=== PATIENT | female | born 1945 | race Caucasian/White ===

== ENCOUNTER 2017-09-19 07:41 | Observation (INO) | payer BC, OTHER ==
[2017-09-19 08:23] LABS: Absolute Lymphocytes (CBC) 0.4 K/uL (0.7-4.9); Absolute Monocytes 0.2 K/uL (0.1-1.3); Absolute Neutrophil 8.9 K/uL (1.8-8.0); Basophils % 0.2 % (0-1.3); Eosinophils % 0.1 % (0-4.4); Hematocrit 42.1 % (36.0-45.0); Lymphocytes % 4.4 % (15.3-44.8); MCV 90.5 fL (80-100); MPV 7.8 fL (7.6-11.3); Monocytes % 2.3 % (3.3-12.3); RBC Red Blood Cell Count 4.65 M/uL (3.86-4.86)
[2017-09-19 08:27] LABS: Protime INR 0.97
[2017-09-19] MEDS ORDERED: METOPROLOL TAR 50 MG TAB ONE (08:34)
[2017-09-19] MEDS ORDERED: NA CHLORIDE 0.9% 1,000 ML ONE (08:34)
[2017-09-19] MEDS ORDERED: ASPIRIN 81 MG CHEWABLE TABLET ONE (08:34)
[2017-09-19 08:38] LABS: Bicarbonate 24 mEq/L (21-31); Glucose Level 153 mg/dL (65-120); Lipase 45 U/L (22-51); Potassium 3.9 mEq/L (3.6-5.0); Sodium Level 142 mEq/L (135-145)
[2017-09-19 08:44] LABS: ALT/SGPT 17 IU/L (10-60); AST/SGOT 29 IU/L (10-42); Albumin 4.9 g/dL (3.2-5.5); Alkaline Phosphatase 111 IU/L (42-121); BUN Blood Urea Nitrogen 19 mg/dL (6-20); Bilirubin Direct < 0.1 mg/dL (0-0.2); Bilirubin Total 0.6 mg/dL (0.3-1.2); Creatine Phosphokinase 231 IU/L (22-269); Glomerular Filtration Rate 61 mL/min (=/>90); Protein, Total 8.4 g/dL (6.0-8.3)
[2017-09-19 08:45] LABS: Urine Blood TRACE (NEG); Urine Glucose TRACE (NEG); Urine Protein 1+ (NEG); Urine Specific Gravity >1.030 (1.005-1.030)
[2017-09-19] MEDS ORDERED: METHYLPREDNISOLONE 125 MG INJ ONE (09:08)
[2017-09-19] MEDS ORDERED: ENOXAPARIN 60 MG/0.6 ML SQ ONE (09:09)
[2017-09-19] MEDS ORDERED: IPRATROPIUM BROM 0.5MG/2.5ML ONE (09:09)
[2017-09-19] MEDS ORDERED: FAMOTIDINE 20 MG/2 ML VIAL IV ONE (09:09)
[2017-09-19] MEDS ORDERED: NITROGLYCERIN 1 GM PKT TD ONE (09:09)
[2017-09-19] MEDS ORDERED: LEVALBUTEROL 1.25 MG/3 ML NEB ONE ×2 (09:16→09:51)
--- NOTE | 2017-09-19 09:30 | EDPHYS ---
Physician Documentation [facility] Name: Brianne Jennings Age: 71 yrs Sex: Female : 1945 Arrival Date: 09/19/2017 Time: 07:45 Bed 20 Private MD: Mark Altman ED Physician Koby Elmore HPI: 09/19 08:37 This 71 yrs old Female presents to ER via Ambulatory with complaints of Chest leah Pain. 08:37 The patient or guardian reports chest pain that is located primarily in the substernal leah area. Onset: 2 day(s) ago. The pain radiates to Associated signs and symptoms: Pertinent positives: lightheadedness, shortness of breath. The chest pain is described as a heaviness, causing indigestion, a pressure. Duration: The patient or guardian reports multiple episodes, with no pattern. Severity of pain: At its worst the pain was moderate in the emergency department the pain is unchanged. Historical: - Allergies: 07:56 Clindamycin; iw - Home Meds: 08:10 Metoprolol Tartrate Oral 1 tab 2 times per day [Active]; omeprazole 20 mg Oral cpDR 1 ae1 cap once daily [Active]; Symbicort inhalation inhalation [Active]; aspirin 81 mg Oral chew 1 tab once daily [Active]; ProAir HFA 90 mcg/actuation inhalation HFAA every 4-6 hours [Active]; - PMHx: 08:10 COPD; Hypertension; acid reflux; Arthritis; ae1 - PSHx: 08:10 heart caths; colon polyps; benign tumor remval near clavicle; D \T\ C; ae1 - Immunization history:: Pneumococcal vaccine is not up to date, Flu vaccine is not up to date. - Social history:: Smoking status: Patient uses tobacco products, smokes one-half pack cigarettes per day. - Family history:: not pertinent. ROS: 08:37 Constitutional: Negative for fever, chills, and weight loss, Eyes: Negative for injury, leah pain, redness, and discharge, ENT: Negative for injury, pain, and discharge, Neck: Negative for injury, pain, and swelling, Cardiovascular: Negative for chest pain, palpitations, and edema, Abdomen/GI: Negative for abdominal pain, nausea, vomiting, diarrhea, and constipation, Back: Negative for injury and pain, : Negative for injury, bleeding, discharge, and swelling, MS/Extremity: Negative for injury and deformity, Skin: Negative for injury, rash, and discoloration, Neuro: Negative for headache, weakness, numbness, tingling, and seizure, Psych: Negative for depression, anxiety, suicide ideation, homicidal ideation, and hallucinations, Allergy/Immunology: Negative for hives, rash, and allergies, Endocrine: Negative for neck swelling, polydipsia, polyuria, polyphagia, and marked weight changes, Hematologic/Lymphatic: Negative for swollen nodes, abnormal bleeding, and unusual bruising. 08:37 Cardiovascular: Positive for chest pain, of the chest. 08:37 Respiratory: Positive for cough, shortness of breath. Exam: 08:37 Constitutional: This is a well developed, well nourished patient who is awake, alert, leah and in no acute distress. Head/Face: Normocephalic, atraumatic. Eyes: Pupils equal round and reactive to light, extra-ocular motions intact. Lids and lashes normal. Conjunctiva and sclera are non-icteric and not injected. Cornea within normal limits. Periorbital areas with no swelling, redness, or edema. ENT: Nares patent. No nasal discharge, no septal abnormalities noted. Tympanic membranes are normal and external auditory canals are clear. Oropharynx with no redness, swelling, or masses, exudates, or evidence of obstruction, uvula midline. Mucous membranes moist. Neck: Trachea midline, no thyromegaly or masses palpated, and no cervical lymphadenopathy. Supple, full range of motion without nuchal rigidity, or vertebral point tenderness. No Meningismus. Chest/axilla: Normal chest wall appearance and motion. Nontender with no deformity. No lesions are appreciated. Abdomen/GI: Soft, non-tender, with normal bowel sounds. No distension or tympany. No guarding or rebound. No evidence of tenderness throughout. Back: No spinal tenderness. No costovertebral tenderness. Full range of motion. Female : Normal external genitalia. Skin: Warm, dry with normal turgor. Normal color with no rashes, no lesions, and no evidence of cellulitis. MS/ Extremity: Pulses equal, no cyanosis. Neurovascular intact. Full, normal range of motion. Neuro: Awake and alert, GCS 15, oriented to person, place, time, and situation. Cranial nerves II-XII grossly intact. Motor strength 5/5 in all extremities. Sensory grossly intact. Cerebellar exam normal. Normal gait. Psych: Awake, alert, with orientation to person, place and time. Behavior, mood, and affect are within normal limits. 08:37 Cardiovascular: Rate: tachycardic, Rhythm: regular, Pulses: Pulses are 4+ in bilateral radial, brachial, femoral, popliteal, posterior tibial and and dorsalis pedis arteries.. Heart sounds: normal, Edema: is not appreciated, JVD: is not appreciated. Vital Signs: 07:59 BP 161 / 90; Pulse 109; Resp 22 S; Temp 98.4; Pulse Ox 97% on R/A; Weight 53.98 kg (R); ae1 08:50 BP 152 / 76; Pulse 93 RA; ap3 08:50 BP 157 / 77; Pulse 89 LA; ap3 09:55 BP 175 / 86; Pulse 77; Resp 23; Pulse Ox 99% on R/A; ae1 10:21 BP 127 / 96; Pulse 75; Resp 16; Pulse Ox 96% on R/A; ap3 MDM: 08:18 Patient medically screened. leah 08:40 Data reviewed: vital signs, nurses notes, lab test result(s), EKG, radiologic studies, [facility] CT scan, plain films. 09/19 08:06 Order name: Basic Metabolic Panel; Complete Time: 08:53 [facility] 09/19 08:06 Order name: BNP; Complete Time: 08:53 [facility] 09/19 08:06 Order name: CBC with Diff; Complete Time: 11:21 [facility] 09/19 08:06 Order name: Ckmb; Complete Time: 08:53 [facility] 09/19 08:06 Order name: CPK; Complete Time: 08:53 [facility] 09/19 08:06 Order name: LFT's; Complete Time: 08:53 [facility] 09/19 08:06 Order name: Magnesium; Complete Time: 08:53 [facility] 09/19 08:06 Order name: PT-INR; Complete Time: 08:53 [facility] 09/19 08:06 Order name: Ptt, Activated; Complete Time: 08:53 [facility] 09/19 08:06 Order name: Troponin (emerg Dept Use Only); Complete Time: 08:53 [facility] 09/19 08:06 Order name: Lipase; Complete Time: 08:53 [facility] 09/19 08:31 Order name: Urine Dipstick--Ancillary (enter results); Complete Time: 08:53 09/19 08:06 Order name: XRAY Chest (1 view); Complete Time: 11:21 [facility] 09/19 08:37 Order name: CT Aorta for Dissection; Complete Time: 11:21 [facility] 09/19 09:29 Order name: Blood Culture [facility] 09/19 10:17 Order name: Group A Streptococcus Rapid Sc [facility] 09/19 10:18 Order name: Influenza Screen (A [facility] 09/19 10:18 Order name: Echo with Doppler [facility] 09/19 10:18 Order name: CKMB Creatine Kinase MB [facility] 09/19 10:18 Order name: CKMB Creatine Kinase MB [facility] 09/19 10:18 Order name: Creatine Phosphokinase [facility] 09/19 10:18 Order name: Creatine Phosphokinase [facility] 09/19 10:18 Order name: Troponin I [facility] 09/19 10:18 Order name: Troponin I [facility] 09/19 10:18 Order name: Hepatitis Panel,Acute [facility] 09/19 11:06 Order name: CBC Smear Scan; Complete Time: 11:21 [facility] 09/19 08:06 Order name: EKG; Complete Time: 08:07 [facility] 09/19 08:06 Order name: Cardiac monitoring; Complete Time: 08:11 [facility] 09/19 08:06 Order name: EKG - Nurse/Tech; Complete Time: 08:11 [facility] 09/19 08:06 Order name: IV Saline Lock; Complete Time: 08:11 [facility] 09/19 08:06 Order name: Labs collected and sent; Complete Time: 08:12 [facility] 09/19 08:06 Order name: O2 Per Protocol; Complete Time: 08:11 [facility] 09/19 08:06 Order name: O2 Sat Monitoring; Complete Time: 08:11 [facility] 09/19 08:06 Order name: Urine Dipstick-Ancillary (obtain specimen); Complete Time: 08:28 [facility] 09/19 08:40 Order name: Bilateral blood pressure; Complete Time: 08:50 [facility] 09/19 10:18 Order name: CONS Physician Consult [facility] 09/19 10:18 Order name: Heart Healthy [facility] 09/19 10:18 Order name: Respiratory Therapy Consult [facility] Administered Medications: 08:19 Drug: Aspirin 162 mg Route: PO; ae1 08:19 Drug: Lopressor (metoprolol TARTRATE) 50 mg Route: PO; ae1 08:23 Drug: NS 0.9% 1000 ml Route: IV; Rate: 125 ml/hr; Site: left antecubital; ae1 08:45 Drug: Rocephin - (cefTRIAXone) 1 grams Route: IVPB; Infused Over: 30 mins; Site: left ae1 antecubital; 09:54 Follow up: IV Status: Completed infusion ae1 08:55 Drug: Nitro-Bid Ointment 2 % 1 inches Route: Transdermal; Site: anterior chest wall; ae1 08:56 Drug: Pepcid 20 mg Route: IVP; Site: left antecubital; ae1 09:23 Follow up: Response: No adverse reaction ae1 08:58 Drug: SOLU-Medrol 2 mg/kg Route: IVP; Site: left antecubital; ae1 09:01 Drug: Xopenex 1.25 mg Route: Inhalation; ae1 09:01 Drug: AtroVENT Aerosol 0.5 mg Route: Inhalation; ae1 09:02 Drug: Lovenox 1 mg/kg Route: Sub-Q; Site: abdomen; ae1 09:38 Drug: Tylenol 650 mg Route: PO; ae1 11:22 Follow up: Response: Pain is decreased ae1 09:40 Drug: Xopenex 1.25 mg Route: Inhalation; ae1 09:54 Drug: Zithromax 500 mg Route: IVPB; Infused Over: 1 hrs; Site: left antecubital; ae1 11:22 Follow up: IV Status: Completed infusion ae1 Disposition: 09/19/17 09:29 Hospitalization ordered by Jaison Guaman for Inpatient Admission. Preliminary diagnosis are Chest pain, unspecified, Chronic obstructive pulmonary disease with (acute) exacerbation, Essential (primary) hypertension. - Bed requested for Telemetry/MedSurg (Inpatient). - Status is Inpatient Admission. ae1 - Condition is Stable. - Problem is new. - Symptoms have improved. UTI on Admission? No Signatures: Dispatcher [employer] EDMS Kezia Meeks Corey, MD MD cha Williams, Irene, RN RN iw Ruiz Pérez RN RN ae1
--- NOTE | 2017-09-19 09:30 | ER ---
Nurse's Notes [facility] Name: Brianne Jennings Age: 71 yrs Sex: Female : 1945 Arrival Date: 09/19/2017 Time: 07:45 Bed 20 Private MD: Mark Altman Diagnosis: Chest pain, unspecified;Chronic obstructive pulmonary disease with (acute) exacerbation;Essential (primary) hypertension Presentation: 09/19 07:53 Presenting complaint: Patient states: has had SOB, productive cough, left sided chest iw pain X 2 days, was seen at urgent care last night and diagnosed with bronchitis, was given breathing tx and steroid, had worse chest pain this morning so decided to come in to ER. Transition of care: patient was not received from another setting of care. Onset of symptoms was September 17, 2017. Care prior to arrival: None. 07:53 Method Of Arrival: Ambulatory iw 07:53 Acuity: LYNNE 3 iw Triage Assessment: 08:10 General: Appears comfortable, slender, Behavior is cooperative, anxious. Pain: ae1 Complains of pain in chest. Cardiovascular: Patient's skin is warm and dry. Historical: - Allergies: 07:56 Clindamycin; iw - Home Meds: 08:10 Metoprolol Tartrate Oral 1 tab 2 times per day [Active]; omeprazole 20 mg Oral cpDR 1 ae1 cap once daily [Active]; Symbicort inhalation inhalation [Active]; aspirin 81 mg Oral chew 1 tab once daily [Active]; ProAir HFA 90 mcg/actuation inhalation HFAA every 4-6 hours [Active]; - PMHx: 08:10 COPD; Hypertension; acid reflux; Arthritis; ae1 - PSHx: 08:10 heart caths; colon polyps; benign tumor remval near clavicle; D \T\ C; ae1 - Immunization history:: Pneumococcal vaccine is not up to date, Flu vaccine is not up to date. - Social history:: Smoking status: Patient uses tobacco products, smokes one-half pack cigarettes per day. - Family history:: not pertinent. Screenin:29 Abuse screen: Denies threats or abuse. Nutritional screening: No deficits noted. ap3 Tuberculosis screening: No symptoms or risk factors identified. Fall Risk None identified. Assessment: 08:10 Pain: Pain began gradually. ae1 08:20 Reassessment: Patient up to restroom, urine cup and clean catch wipes provided. Urine ae1 sample obtained at this time. 08:24 General: Appears in no apparent distress. well groomed, Behavior is calm, cooperative. ap3 Pain: Complains of pain in anterior aspect of left upper chest Pain radiates to left scapular area Pain currently is 5 out of 10 on a pain scale. at worst was 7 out of 10 on a pain scale. Aggravated by laying down flat. Neuro: Level of Consciousness is awake, alert, obeys commands, Oriented to person, place, time, situation. Cardiovascular: Heart tones S1 S2 present Capillary refill < 3 seconds in bilateral fingers. Respiratory: Airway is patent Breath sounds are diminished bilaterally. Breath sounds with wheezes in left posterior upper lobe. GI: Bowel sounds present X 4 quads. : No signs and/or symptoms were reported regarding the genitourinary system. EENT: wears glasses. Derm: Skin is pink, warm \T\ dry. Bruising that is dark purple, on dorsal aspect of right forearm. Musculoskeletal: Reports pain in anterior aspect of left upper chest. 09:11 Reassessment: Patient appears in no apparent distress at this time. Patient and/or ae1 family updated on plan of care and expected duration. Pain level reassessed. 09:52 Reassessment: Patient returned from CT, c/o headache, provider notified, new orders ae1 received. Reassessment: DR. Guaman at bedside discussing plan of care. 10:23 Reassessment: awaiting admission orders, no [employer] Communication[employer] orders at this time. . ap3 Vital Signs: 07:59 BP 161 / 90; Pulse 109; Resp 22 S; Temp 98.4; Pulse Ox 97% on R/A; Weight 53.98 kg (R); ae1 08:50 BP 152 / 76; Pulse 93 RA; ap3 08:50 BP 157 / 77; Pulse 89 LA; ap3 09:55 BP 175 / 86; Pulse 77; Resp 23; Pulse Ox 99% on R/A; ae1 10:21 BP 127 / 96; Pulse 75; Resp 16; Pulse Ox 96% on R/A; ap3 ED Course: 07:45 Patient arrived in ED. mr 07:46 Mark Altman MD is Private Physician. mr 07:55 Triage completed. iw 07:58 Ruiz Pérez, VALE is Primary Nurse. ae1 08:00 Arm band placed on right wrist. ae1 08:00 Placed in gown. Bed in low position. Call light in reach. Side rails up X2. Cardiac ae1 monitor on. Pulse ox on. NIBP on. Warm blanket given. 08:00 Patient maintains SpO2 saturation greater than 95% on room air. ae1 08:03 Koby Elmore MD is Attending Physician. leah 08:11 EKG done, by orthodontic technician assistant. reviewed by Koby lEmore MD. vh 08:15 X-ray completed. Portable x-ray completed in exam room. Patient tolerated procedure ag1 well. 08:16 XRAY Chest (1 view) In Process Unspecified. EDMS 08:28 Inserted saline lock: 20 gauge in left antecubital area, using aseptic technique. Blood ap3 collected. 09:21 CT completed. Patient tolerated procedure well. Patient moved to CT via wheelchair. sj Patient moved back from CT. 09:28 CT Aorta for Dissection In Process Unspecified. EDMS 09:28 Jaison Guaman DO is Hospitalizing Provider. [facility] 11:13 No provider procedures requiring assistance completed. Patient admitted, IV remains in ae1 place. Administered Medications: 08:19 Drug: Aspirin 162 mg Route: PO; ae1 08:19 Drug: Lopressor (metoprolol TARTRATE) 50 mg Route: PO; ae1 08:23 Drug: NS 0.9% 1000 ml Route: IV; Rate: 125 ml/hr; Site: left antecubital; ae1 08:45 Drug: Rocephin - (cefTRIAXone) 1 grams Route: IVPB; Infused Over: 30 mins; Site: left ae1 antecubital; 09:54 Follow up: IV Status: Completed infusion ae1 08:55 Drug: Nitro-Bid Ointment 2 % 1 inches Route: Transdermal; Site: anterior chest wall; ae1 08:56 Drug: Pepcid 20 mg Route: IVP; Site: left antecubital; ae1 09:23 Follow up: Response: No adverse reaction ae1 08:58 Drug: SOLU-Medrol 2 mg/kg Route: IVP; Site: left antecubital; ae1 09:01 Drug: Xopenex 1.25 mg Route: Inhalation; ae1 09:01 Drug: AtroVENT Aerosol 0.5 mg Route: Inhalation; ae1 09:02 Drug: Lovenox 1 mg/kg Route: Sub-Q; Site: abdomen; ae1 09:38 Drug: Tylenol 650 mg Route: PO; ae1 11:22 Follow up: Response: Pain is decreased ae1 09:40 Drug: Xopenex 1.25 mg Route: Inhalation; ae1 09:54 Drug: Zithromax 500 mg Route: IVPB; Infused Over: 1 hrs; Site: left antecubital; ae1 11:22 Follow up: IV Status: Completed infusion ae1 Outcome: :29 Decision to Hospitalize by Provider. [facility] 11:19 Admitted to Tele accompanied by tech, via stretcher, with chart, Report called to ap3 Eileen, Darryl nurse 11:19 Condition: stable 11:19 Instructed on the need for admit. 11:23 Attestation : I agree with the charting done by Angeli Mahoney, certified nursing attendant. . ae1 11:24 Patient left the ED. ae1 Signatures: Dispatcher [employer] EDMS Koby Elmore MD MD cha Rivera, Maria mr Jones, Eleanor Monson, Margie Castillo RN, Ashley [facility] Ruiz Pérez RN RN ae1 Angeli Mahoney ap3 Corrections: (The following items were deleted from the chart) 09: 08:20 Reassessment: Patient up to restroom, urine cup and clean catch wipes provided. ae1 ae1 11:14 08:28 Inserted saline lock: 20 gauge in right antecubital area, using aseptic ae1 technique. Blood collected. ap3 11:19 08:28 Inserted saline lock: 20 gauge in left antecubital area, using aseptic technique. ap3 Blood collected. ae1 11:20 11:14 Condition: stable ae1 ap3 11: 11:14 Admitted to Tele accompanied by tech, via stretcher, room 423, with chart, Report ap3 called to Eileen, receiving nurse ae1 11:14 Instructed on the need for admit, ae1 ap3 11:24 11:04 Reassessment: ae1 ae1
[2017-09-19] MEDS ORDERED: CEFTRIAXONE/SWI 1gm 1 GM/10 ML SYR ONE (09:37)
--- NOTE | 2017-09-19 09:48 | RAD REPORT ---
EXAM DESCRIPTION: CT - Angio Aorta For Dissection - 09/19/2017 9:28 am CLINICAL HISTORY: Chest pain radiating to the back. COMPARISON: None. TECHNIQUE: CT angiography of the aorta was performed with volume rendering. All CT scans are performed using dose optimization technique as appropriate and may include automated exposure control or mA/KV adjustment according to patient size. FINDINGS: A left aortic arch is present with normal branching pattern of the great vessels.No acute aortic finding is seen such as aneurysm, penetrating ulcer or dissection. The celiac axis, SMA, MARLON and renal arteries are widely patent. Mild atherosclerosis of the inferior abdominal aorta. No evidence of pulmonary embolism. Linear atelectasis is present in the right middle lobe. No focal infiltrate is seen. Multiple low-density hepatic lesions are present of varying sizes. A 2 cm lesion is seen in the right lobe laterally with evidence of arterial phase enhancement laterally. Full assessment is limited on this study, however a benign etiology is favored.The spleen, pancreas, adrenal glands and kidneys are within normal limits for arterial phase imaging. No bowel obstruction, free fluid or abscess.Small fat containing right inguinal hernia.No pathologic enlarged lymphadenopathy identified. Prominent lumbosacral degenerative changes. IMPRESSION: No acute aortic finding is demonstrated. No acute lung finding seen. Multiple hepatic lesions are present including a lesion in the right lobe of the liver inferolaterall y with adjacent arterial enhancement. Benign etiology is favored, however non-emergent MR imaging of the liver would be recommended for followup assessment.
--- NOTE | 2017-09-19 09:52 | EKG ---
Test Date: 2017-09-19 Test Time: 08:05:00 Supervisor Assembly Department: [facility] MEASUREMENT RESULTS: Intervals: Rate: 87 WV: 156 QRSD: 92 QT: 368 QTc: 442 [place]: P: 51 WV: 156 QRS: 58 T: 46 INTERPRETIVE STATEMENTS: Sinus rhythm with sinus arrhythmia with frequent premature ventricular complexes Incomplete right bundle branch block Nonspecific ST abnormality Abnormal ECG Compared to ECG 06/15/2014 15:55:09 Ventricular premature complex(es) now present ST (T wave) deviation now present Electronically Signed On 09-19-17 09:51:38 CDT by Raghavendra Martinez
--- NOTE | 2017-09-19 09:53 | RAD REPORT ---
EXAM DESCRIPTION: RAD - Chest Single View - 09/19/2017 8:18 am CLINICAL HISTORY: Productive cough, chest pain COMPARISON: 02/15/2010 FINDINGS: Portable technique limits examination quality. The lungs are grossly clear. The heart is normal in size. No displaced fractures. IMPRESSION: No acute intrathoracic process suspected.
[2017-09-19] MEDS ORDERED: ACETAMINOPHEN 325 MG TABLET ONE (09:54)
[2017-09-19] MEDS ORDERED: AZITHROMYCIN 500 MG/250 ML BAG ONE (10:07)
[2017-09-19] MEDS ORDERED: BENZONATATE 100 MG CAP PO PRN (10:08)
[2017-09-19] MEDS ORDERED: ALBUTEROL 2.5 MG/3 ML NEB SOL NEB PRN (10:08)
[2017-09-19] MEDS ORDERED: IPRATROPIUM BROM 0.5MG/2.5ML NEB PRN (10:08)
[2017-09-19] MEDS ORDERED: ONDANSETRON 4 MG/2 ML VIAL IV PRN (10:08)
[2017-09-19] MEDS ORDERED: NITROGLYCERIN 0.4 MG/TAB SL PRN (10:08)
--- NOTE | 2017-09-19 10:23 | P.HP ---
Certification for Inpatient Patient admitted to: Observation With expected LOS: <2 Midnights Patient will require the following post-hospital care: None Practitioner: I am a practitioner with admitting privileges, knowledge of patient current condition, hospital course, and medical plan of care. Services: Services provided to patient in accordance with Admission requirements found in Title 42 Section 412.3 of the Code of Federal Regulations Patient History Date of Service: 09/19/17 Primary Care Provider: Dr. Avery; Cardiology-Dr. Martinez Reason for admission: Shortness of breath, chest pain History of Present Illness: 71-year-old female presented emergency room with increasing shortness of breath and chest pain. The patient reports that she was seen in urgent care yesterday for increasing shortness of breath and chest pain. The patient was evaluated and diagnosed with bronchitis. She was given a breathing treatment and steroid. Overnight or shortness of breath did not improve. The patient also reported some left- sided chest pain. Pain radiated to the back. It was associated with some nausea. Shortness of breath worsened. Patient with underlying history of hypertension, COPD, GERD, CAD with previous heart catheterization. She was last seen by Cardiology over a year ago. She reports 40% blockage to 1 of her arteries. The patient was seen and evaluated in the emergency room. Blood pressure slightly elevated at 160/90. Heart rate 109, respiratory of 22. She was satting 97% on room air. In the ER, white count 9.6, hemoglobin 14. Sodium 142 , potassium 3.9, magnesium level unremarkable. Renal function unremarkable. Initial troponin unremarkable. EKG showed some PVCs. CT of the chest showed no lung abnormality. Multiple lesions to the kidneys were noted. 1 in the right lobe of the liver was noted. Due to the nature the findings the patient was admitted for treatment and felt outpatient treatment for COPD exacerbation. When I saw the patient in the ER, she appeared stable. She did not appear in any respiratory distress. Patient had mild chest pain. The patient reports that she still smokes about a half a pack per day. She is trying to quit. Allergies No Known Allergies Allergy (Unverified 06/15/14 15:37) Home medications list reviewed: Yes Home Medications: Albuterol Sulfate [Proair Hfa] 8.5 gm IH BID 06/15/14 Budesonide/Formoterol Fumarate [Symbicort 80-4.5 Mcg Inhaler] 2 puff IH BID Esomeprazole Mag Trihydrate [Nexium] 40 mg PO DAILY 06/15/14 Metoprolol Succinate [Toprol Xl] 25 mg PO DAILY 06/15/14 - Past Medical/Surgical History Diabetic: No -: Hypertension -: CAD -: GERD -: COPD -: Tobacco abuse -: Heart catheterization -: Removal of colon polyps -: D/C Psychosocial/ Personal History: The patient is a . 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 She has 3 children. - Family History Mother -: Other (see notes) (Brain 10) - Social History Smoking Status: Light Tobacco smoker (1-9 cigarettes/day) Counseled patient to stop smoking for: less than 10 minutes Smoking therapy provided: Yes Patient receptive to therapy: Yes Alcohol use: No CD- Drugs: No Caffeine use: Yes Place of Residence: Home Review of Systems General: As per HPI Eyes: Unremarkable ENT: Unremarkable Respiratory: Shortness of Breath, SOB with Excertion, Wheezing, As per HPI Cardiovascular: Chest Pain, As per HPI Gastrointestinal: Nausea, As per HPI Genitourinary: Unremarkable Musculoskeletal: Unremarkable Integumentary: Unremarkable Neurological: Unremarkable Lymphatics: Unremarkable Physical Examination - Physical Exam General: Alert, In no apparent distress, Oriented x3, Cooperative HEENT: Atraumatic, Normocephalic, PERRLA, Mucous membr. moist/pink Neck: Supple, No Thyromegaly Respiratory: Diminished (To the left base), Expiratory wheezes (Mild bilateral) Cardiovascular: Normal pulses, Regular rate/rhythm Gastrointestinal: Normal bowel sounds, Soft and benign, Non-distended, No tenderness, No masses, No rebound, No guarding Musculoskeletal: No erythema, No tenderness, No warmth Integumentary: No tenderness/swelling, No erythema, No warmth, No cyanosis Neurological: Normal speech, Normal strength at 5/5 x4 extr, Normal tone, Normal affect Lymphatics: No axilla or inguinal lymphadenopathy - Studies Laboratory Data (last 24 hrs) 09/19/17 08:05: PT 11.4, INR 0.97, APTT 28.0 09/19/17 08:05: WBC 9.6, Hgb 14.0, Hct 42.1, Plt Count 288 09/19/17 08:05: B-Natriuretic Peptide 84 09/19/17 08:05: Sodium 142, Potassium 3.9, BUN 19, Creatinine 0.91, Glucose 153 H, Magnesium 2.0, Total Bilirubin 0.6, AST 29, ALT 17, Alkaline Phosphatase 111 , Lipase 45 Assessment and Plan - Problems (Diagnosis) (1) Shortness of breath Current Visit: Yes Status: Acute Plan: Shortness of breath likely related to COPD exacerbation. Failed outpatient therapy. Will start IV Solu-Medrol. Will continue with COPD treatment. Patient also with chest pain. Will monitor cardiac enzymes. Will check echocardiogram. Due to her history of CAD will consult cardiology further evaluate. Will monitor closely. Recheck chest x-ray in the morning. Will consider starting antibiotic therapy. Will check for influenza and strep. Will teach on tobacco cessation. Will check fasting lipid panel. Will continue with her blood pressure medication. Will provide medication for GERD. (2) COPD (chronic obstructive pulmonary disease) Current Visit: Yes Status: Acute Plan: Will continue with COPD treatment. Qualifiers: COPD type: COPD with acute exacerbation Qualified Code(s): J44.1 - Chronic obstructive pulmonary disease with (acute) exacerbation (3) Chest pain Current Visit: Yes Status: Acute Plan: Continue as above. Will monitor cardiac enzymes. Will check echocardiogram. Await recommendation from cardiology. Qualifiers: Chest pain type: unspecified Qualified Code(s): R07.9 - Chest pain, unspecified (4) CAD (coronary artery disease) Current Visit: Yes Status: Chronic Plan: Patient with history of 40% blockage in 1 of her arteries. Will monitor cardiac enzymes. Await cardiology evaluation and recommendation. Qualifiers: Coronary Disease-Associated Artery/Lesion type: unspecified vessel or lesion type [place] vs. transplanted heart: unspecified whether [place] or transplanted heart Associated angina: angina presence unspecified Qualified Code(s): I25.10 - Atherosclerotic heart disease of [place] coronary artery without angina pectoris (5) Hypertension Current Visit: Yes Status: Chronic Plan: Continue with her medication. Will need to verify home meds Qualifiers: Hypertension type: essential hypertension Qualified Code(s): I10 - Essential (primary) hypertension (6) GERD (gastroesophageal reflux disease) Current Visit: Yes Status: Chronic Plan: Will continue with her PPI. Qualifiers: Esophagitis presence: esophagitis presence not specified Qualified Code(s) : K21.9 - Gastro-esophageal reflux disease without esophagitis (7) Tobacco abuse Current Visit: Yes Status: Chronic Plan: Tobacco education was provided. Patient plans to quit. (8) Abnormal CT scan Current Visit: Yes Status: Acute Plan: Multiple lesions noted to the liver. Will check MRI to further assess. Will check hepatitis panel. Discharge Plan: Home Plan to discharge in: 24 Hours - Advance Directives Does patient have a Living Will: No Does patient have a Durable POA for Healthcare: No - Code Status/Comfort Care Code Status Assessed: Yes Time Spent Managing Pts Care (In Minutes): 55
[2017-09-19] MEDS ORDERED: NA CHLORIDE 0.9% 1,000 ML IV SCH (11:00)
[2017-09-19 11:06] LABS: Blood Morphology Comment NOT SEEN (NOT SEEN); Platelet Estimate ADEQ; Urine White Blood Cell Casts OK
[2017-09-19 12:33] VITALS: BMI 19.8
[2017-09-19] MEDS: ACETAMINOPHEN 500 MG TAB PO PRN ×2 (12:38→23:56)
[2017-09-19] MEDS ORDERED: PNEUMOCOCCAL VACCINE 0.5 ML IMVAC ONE (13:00)
--- NOTE | 2017-09-19 13:41 | ECHO ---
HEIGHT: 5 ft 5 in WEIGHT: 119 lb 0 oz DATE OF STUDY: 09/19/[address]: Jaison Guaman DO 2-DIMENSIONAL: YES M.MODE: YES DOPPLER: YES COLOR FLOW: YES TDS: NO PORTABLE: NO DEFINITY: NO BUBBLE STUDY: NO DIAGNOSIS: CHEST PAIN, SHORTNESS OF BREATH, CORONARY ARTERY DISEASE CARDIAC HISTORY: CATHERIZATION: YES SURGERY: NO PROSTHETIC VALVE: NO PACEMAKER: NO MEASUREMENTS (cm) DIASTOLIC (NORMALS) SYSTOLIC (NORMALS) IVSd 0.9 (0.6-1.2) LA Diam 3.0 (1.9-4.0) LVEF 67% LVIDd 4.9 (3.5-5.7) LVIDs 3.1 (2.0-3.5) %FS 37% LVPWd 1.1 (0.6-1.2) Ao Diam 2.8 (2.0-3.7) 2 DIMENSIONAL ASSESSMENT: RIGHT ATRIUM: NORMAL LEFT ATRIUM: NORMAL RIGHT VENTRICLE: NORMAL LEFT VENTRICLE: NORMAL TRICUSPID VALVE: NORMAL MITRAL VALVE: NORMAL PULMONIC VALVE: NORMAL AORTIC VALVE: NORMAL PERICARDIAL EFFUSION: NONE AORTIC ROOT: NORMAL LEFT VENTRICULAR WALL MOTION: NORMAL DOPPLER/COLOR FLOW: MILD MITRAL AND TRICUSPID REGURGITATION. NORMAL RIGHT VENTRICULAR SYSTOLIC PRESSURE. COMMENTS: NORMAL 2D ECHOCARDIOGRAM. MILD MITRAL AND TRICUSPID REGURGITATION. TECHNOLOGIST: Pierre LEONARD
--- NOTE | 2017-09-19 15:46 | RAD REPORT ---
EXAM DESCRIPTION: MRI - Mri Abdomen W/Wo Cont - 09/19/2017 3:31 pm CLINICAL HISTORY: Liver mass COMPARISON: September 19, 2017 cat scan TECHNIQUE: Axial, and coronal magnetic images of the brain were obtained. Twelve cc Magnevist admini stered intravenously. FINDINGS: A 17 millimeter cystic mass is present within the anterior segment of the right lobe of th e liver. It does not enhance. It has high signal on T2 weighted sequences. A small septation. Additional hepatic cysts are present. The largest measures 22 millimeters The portal vein is patent IMPRESSION: 17 millimeter cystic mass within the anterior segment of the right lobe of the liver con tains a septation. It is benign. Additional hepatic cysts
[2017-09-19] MEDS: METOPROLOL TAR 25 MG TAB PO SCH (16:44)
[2017-09-19] MEDS: METHYLPREDNISOLONE 40 MG INJ IV SCH (16:44)
[2017-09-19] MEDS ORDERED: ENOXAPARIN 40 MG/0.4 ML SQ SCH (17:00)
[2017-09-19 17:06] LABS: CKMB Creatine Kinase MB 3.4 ng/ml (0.3-4.0)
--- NOTE | 2017-09-19 18:49 | CON ---
Chief Complaint: Chest pain. History Of Present Illness: Ms. Jennings has been having chest pain for about 3 nights in a row, gets w orse if she lies flat, better if she sits up. Does not seem to be that are worse with a deep breath or other body positions or cough. It has been fairly constant for 3 days. Since she has been in the hospital, cardiac enzymes are normal. Her electrocardiogram shows PVCs, incomplete right bundle, no nspecific ST change, no ST elevation or Q-waves. An echocardiogram shows normal ejection fraction an d wall motion. A CT angio of the chest is normal and a chest x-ray is normal. She has a history of COPD. She has a history of 2 normal cardiac cath. She has a history of hypertension. Medications: She takes metoprolol, meloxicam, albuterol, and Symbicort. Social History: She continues to smoke cigarettes about 10 a day. No illegal drugs or alcohol. Physical Examination: Vital Signs: 5 feet 5, 119 pounds. HEENT: Normal. Lungs: Clear. Cardiac: Normal. No friction rub. Abdomen: Soft. Extremities: Normal. Normal distal pulses. Laboratory Data: She has a blood sugar of 153. Creatinine 0.91. Her complete blood count is within normal limits, although there does seem to be a higher percentage and normal neutrophils. Total whi te blood cell count is normal. Impression: Ms. Jennings is probably not having angina but I have recommended we redo a stress test willy orrow the nuclear stress test. She does not think her lungs would permit her to achieve a target hea rt rate on a treadmill. We will do that tomorrow. If it is abnormal, we will look into it further. Thank you very much for your kind referral of Ms. Jennings. I will follow her with you. RUPERTO/LONNIE Voice ID: [id number] Report ID: [id number]
[2017-09-19] MEDS: ARFORMOTEROL TARTRATE 15 MCG/2 ML VIAL.NEB NEB SCH (20:50)
[2017-09-20] MEDS: METHYLPREDNISOLONE 40 MG INJ IV SCH (00:03)
[2017-09-20 00:28] LABS: CKMB Creatine Kinase MB 3.3 ng/ml (0.3-4.0)
[2017-09-20 04:13] LABS: Absolute Lymphocytes (CBC) 0.9 K/uL (0.7-4.9); Absolute Monocytes 0.4 K/uL (0.1-1.3); Basophils % 0.3 % (0-1.3); Hematocrit 37.2 % (36.0-45.0); Lymphocytes % 4.8 % (15.3-44.8); MCH 29.3 pg (27.0-35.0); MCV 91.4 fL (80-100); MPV 8.2 fL (7.6-11.3); Monocytes % 2.1 % (3.3-12.3); RBC Red Blood Cell Count 4.07 M/uL (3.86-4.86)
[2017-09-20 04:50] LABS: CKMB Creatine Kinase MB 4.6 ng/ml (0.3-4.0)
[2017-09-20 05:10] LABS: Blood Morphology Comment NOT SEEN (NOT SEEN); Platelet Estimate ADEQ; Urine White Blood Cell Casts OK
[2017-09-20 05:24] LABS: Magnesium 2.1 mg/dL (1.8-2.5); Thyroid Stimulating Hormone 0.52 uIU/mL (0.34-5.60)
[2017-09-20] MEDS ORDERED: PANTOPRAZOLE 40MG TABLET PO SCH (06:30)
[2017-09-20] MEDS ORDERED: TRAMADOL HCL 50 MG TAB PO PRN (07:05)
[2017-09-20] MEDS ORDERED: HYDROCODONE/APAP 7.5/325 MG TAB PO PRN (07:08)
[2017-09-20] MEDS: ARFORMOTEROL TARTRATE 15 MCG/2 ML VIAL.NEB NEB SCH (07:34)
[2017-09-20 08:18] VITALS: O2SAT 96
--- NOTE | 2017-09-20 08:23 | RAD REPORT ---
EXAM DESCRIPTION: Harsh Evans (2 Views)09/20/2017 5:59 am CLINICAL HISTORY: Cough COMPARISON: September 19 FINDINGS: The lungs remain moderately to markedly hyperaerated.The lungs appear clear of acute infi ltrate. The heart is normal size IMPRESSION: COPD without visualization of an acute abnormality
[2017-09-20] MEDS ORDERED: ASPIRIN EC 81 MG TAB PO SCH (09:00)
[2017-09-20] MEDS ORDERED: predniSONE 20 MG TAB PO SCH (09:00)
[2017-09-20] MEDS ORDERED: REGADENOSON 0.4 MG/5 ML SYR IV ONE (09:45)
--- NOTE | 2017-09-20 11:21 | TREADPHA ---
DX: CHEST PAIN Date of Study: 09/20/17 Ht: 5' 5 " Wt: 119 lb 0 oz Consulting Physician: MEAGAN MEDICATIONS: TYLENOL, NORCO, ROVENTIL, BROVANA, ASPIRIN, LOVENOX, LORESSOR, NITROSTAT, ZOFRAN, DELTASONE, ULTRAM, PROTONIX HISTORY: 71 YEAR OLD WITH CHEST PAIN AND CHRONIC OBSTRUCTIVE PULMONARY DISEASE. SMOKER, HALF A PACK PER DAY FOR 58 PLUS YEARS. PHYSICIAL EXAMINATION: RESTING B.P.: 171/91 RESTING H.R.: 75 RESTING EKG: SINUS RHYTHM, RIGHT BUNCLE BRANCH BLOCK. PROTOCOL: LEXISCAN EXERCISE TIME: 3:30 B.P. AT PEAK STRESS: 164/81 IMPRESSION: LEXISCAN INJECTED, CARDIOLITE INJECTED PER PROTOCOL. SEE NUCLEAR MEDICINE REPORT. NO SUPRA VENTRICULAR TACHYCARDIA, NO VENTRICULAR TACHYCARDA, MULTIPLE PREMATURE VENTRICUALR COMPLEXES. PATIENT REPORTS CHEST PRESSURE, "ELEPHANT SITTING ON MY CHEST."
--- NOTE | 2017-09-20 11:28 | RAD REPORT ---
EXAM DESCRIPTION: NM - Rest Stress Cardiac Imaging - 09/20/2017 11:21 am CLINICAL HISTORY: Chest pain. COMPARISON: None. TECHNIQUE: The patient was administered approximately 10mCi of Tc 99m Sestamibi prior to resting SPE CT imaging of the heart. The patient was then administered approximately 30 mCi of Tc 99m Sestamibi f ollowing exercise or pharmacologic stress. Multiplanar SPECT images were reviewed. FINDINGS: No stress induced ischemic defect is seen to suggest stress induced ischemia. No fixed def ect is seen to suggest hibernating myocardium or scarred myocardium. The end diastolic volume is 74 ml, the end systolic volume is 23 ml, and the ejection fraction is 69 %. IMPRESSION: No stress induced ischemia.
[2017-09-20] MEDS: METOPROLOL TAR 25 MG TAB PO SCH (11:30)
[2017-09-20 12:27] VITALS: BP 178/84; TEMP 98.5
--- NOTE | 2017-09-20 12:28 | P.DS ---
Admission Date: 09/19/17 Discharge Date: 09/20/17 Primary Care Provider: Dr. Avery; Cardiology-Dr. Martinez Disposition: ROUTINE DISCHARGE Discharge Condition: GOOD Reason for Admission: Shortness of breath, chest pain Consultations: Cardiology-Dr. Martinez Procedures: Echocardiogram: Ejection fraction 67%. Mild mitral and tricuspid regurgitation. CT scan: No pulmonary embolism noted. Multiple liver lesions noted. Cardiac stress test: No stress-induced ischemia noted. Ejection fraction 69%. MRI liver: IMPRESSION: 17 millimeter cystic mass within the anterior segment of the right lobe of the liver contains a septation. It is benign. Additional hepatic cysts - Problems (1) Shortness of breath Onset Date: 09/20/17 Current Visit: Yes Status: Acute (2) COPD (chronic obstructive pulmonary disease) Onset Date: 09/20/17 Current Visit: Yes Status: Acute Qualifiers: COPD type: COPD with acute exacerbation Qualified Code(s): J44.1 - Chronic obstructive pulmonary disease with (acute) exacerbation (3) Chest pain Onset Date: 09/20/17 Current Visit: Yes Status: Acute Qualifiers: Chest pain type: unspecified Qualified Code(s): R07.9 - Chest pain, unspecified (4) CAD (coronary artery disease) Onset Date: 09/20/17 Current Visit: Yes Status: Chronic Qualifiers: Coronary Disease-Associated Artery/Lesion type: unspecified vessel or lesion type [place] vs. transplanted heart: unspecified whether [place] or transplanted heart Associated angina: angina presence unspecified Qualified Code(s): I25.10 - Atherosclerotic heart disease of [place] coronary artery without angina pectoris (5) Hypertension Onset Date: 09/20/17 Current Visit: Yes Status: Chronic Qualifiers: Hypertension type: essential hypertension Qualified Code(s): I10 - Essential (primary) hypertension (6) GERD (gastroesophageal reflux disease) Onset Date: 09/20/17 Current Visit: Yes Status: Chronic Qualifiers: Esophagitis presence: esophagitis presence not specified Qualified Code(s) : K21.9 - Gastro-esophageal reflux disease without esophagitis (7) Tobacco abuse Onset Date: 09/20/17 Current Visit: Yes Status: Chronic (8) Abnormal CT scan Onset Date: 09/20/17 Current Visit: Yes Status: Acute (9) Hepatic cyst Current Visit: Yes Status: Acute Brief History of Present Illness: 71-year-old female presented emergency room with increasing shortness of breath and chest pain. The patient reports that she was seen in urgent care yesterday for increasing shortness of breath and chest pain. The patient was evaluated and diagnosed with bronchitis. She was given a breathing treatment and steroid. Overnight or shortness of breath did not improve. The patient also reported some left- sided chest pain. Pain radiated to the back. It was associated with some nausea. Shortness of breath worsened. Patient with underlying history of hypertension, COPD, GERD, CAD with previous heart catheterization. She was last seen by Cardiology over a year ago. She reports 40% blockage to 1 of her arteries. The patient was seen and evaluated in the emergency room. Blood pressure slightly elevated at 160/90. Heart rate 109, respiratory of 22. She was satting 97% on room air. In the ER, white count 9.6, hemoglobin 14. Sodium 142 , potassium 3.9, magnesium level unremarkable. Renal function unremarkable. Initial troponin unremarkable. EKG showed some PVCs. CT of the chest showed no lung abnormality. Multiple lesions to the kidneys were noted. 1 in the right lobe of the liver was noted. Due to the nature the findings the patient was admitted for treatment and felt outpatient treatment for COPD exacerbation. When I saw the patient in the ER, she appeared stable. She did not appear in any respiratory distress. Patient had mild chest pain. The patient reports that she still smokes about a half a pack per day. She is trying to quit. Hospital Course: The patient did well during the course of her stay. Her chest pain and shortness of breath improved. Patient was evaluated by cardiology. Echocardiogram and stress test was recommended. Echocardiogram was unremarkable with ejection fraction of 69%. Mild mitral and tricuspid regurgitation noted. Cardiac stress test showed no stress-induced ischemia. From a cardiac standpoint patient may continue with aspirin 81 mg daily. Recommendation is for the patient to follow up with cardiology in 2-4 weeks to monitor her progress. Shortness of breath likely related to COPD exacerbation. For her COPD exacerbation patient at discharge will continue with prednisone 20 mg 1 pill twice daily for 5 days then 1 pill once daily for 5 days. Tessalon Perles 200 mg 1 pill 3 times a day as needed for cough will be provided. Patient will continue with her COPD medication-Symbicort 2 puffs twice daily and Pro air 2 puffs 3 times a day as needed for shortness of breath. Recommendation is for the patient to see pulmonology as an outpatient to further monitor and address. Patient may have GERD. At discharge, she will continue with Protonix 40 mg one pill daily. She may benefit with GI evaluation in the future. Patient with Hypertension. This remained stable. She will continue with Metoprolol 50 mg one pill everyday. Recommendation to monitor BP daily. Recommendation to maintain BP less than 150/80 aunt further adjustment can be done by her PCP. Patient had abnormal CT scan to the liver. Abnormal lesions were noted. Radiology recommended MRI. MRI followed. MRI showed hepatic cysts which appeared benign. This can be followed up with GI as an outpatient. Hepatitis panel pending at discharge. This can be followed up by her PCP. Vital Signs/Physical Exam: Temp Pulse Resp BP Pulse Ox 98.4 F 80 18 141/69 H 94 09/20/17 08:00 09/20/17 08:00 09/20/17 08:00 09/20/17 08:00 09/20/17 08:00 General: Alert, In no apparent distress, Oriented x3, Cooperative HEENT: Atraumatic, Mucous membr. moist/pink Neck: Supple, No Thyromegaly Respiratory: Clear to auscultation bilaterally, Normal air movement Cardiovascular: Normal pulses, Regular rate/rhythm Gastrointestinal: Normal bowel sounds, Soft and benign, Non-distended, No tenderness, No masses, No rebound, No guarding Musculoskeletal: No erythema, No tenderness, No warmth Integumentary: No tenderness/swelling, No erythema, No warmth, No cyanosis Neurological: Normal speech, Normal strength at 5/5 x4 extr, Normal tone, Normal affect Laboratory Data at Discharge: WBC 19.4 K/uL (4.3-10.9) H D 09/20/17 03:30 Hgb 11.9 g/dL (12.0-15.0) L 09/20/17 03:30 Hct 37.2 % (36.0-45.0) 09/20/17 03:30 Plt Count 265 K/uL (152-406) 09/20/17 03:30 PT 11.4 SECONDS (9.5-12.5) 09/19/17 08:05 INR 0.97 09/19/17 08:05 APTT 28.0 SECONDS (24.3-36.9) 09/19/17 08:05 Sodium 141 mEq/L (135-145) 09/20/17 03:30 Potassium 4.0 mEq/L (3.6-5.0) 09/20/17 03:30 BUN 16 mg/dL (6-20) 09/20/17 03:30 Creatinine 0.77 mg/dL (0.44-1.00) 09/20/17 03:30 Glucose 129 mg/dL (65-120) H 09/20/17 03:30 Magnesium 2.1 mg/dL (1.8-2.5) 09/20/17 03:30 Total Bilirubin 0.6 mg/dL (0.3-1.2) 09/19/17 08:05 AST 29 IU/L (10-42) 09/19/17 08:05 ALT 17 IU/L (10-60) 09/19/17 08:05 Alkaline Phosphatase 111 IU/L (42-121) 09/19/17 08:05 Troponin I < 0.03 ng/mL (<0.03) 09/20/17 03:30 B-Natriuretic Peptide 84 pg/ml (<=100) 09/19/17 08:05 Triglycerides 84 mg/dL (35-160) 09/20/17 03:30 Cholesterol 197 mg/dL (<200) 09/20/17 03:30 HDL Cholesterol 77 mg/dL (29-89) 09/20/17 03:30 Cholesterol/HDL Ratio 2.56 09/20/17 03:30 Lipase 45 U/L (22-51) 09/19/17 08:05 Home Medications: Albuterol Sulfate [Proair Hfa] 8.5 gm IH BID 06/15/14 Budesonide/Formoterol Fumarate [Symbicort 80-4.5 Mcg Inhaler] 2 puff IH BID Metoprolol Tartrate [Lopressor*] 50 mg PO DAILY 09/19/17 Benzonatate [Tessalon Perle*] 200 mg PO TID PRN #30 cap 09/20/17 Pantoprazole [Protonix Tab*] 40 mg PO DAILYAC #30 tab 09/20/17 Prednisone [Prednisone*] 20 mg PO SEECOM #15 tab 09/20/17 traMADol HCL [Ultram*] 50 mg PO TID PRN #15 tab 09/20/17 New Medications: Benzonatate [Tessalon Perle*] 200 mg PO TID PRN #30 cap PRN Reason: Cough Pantoprazole [Protonix Tab*] 40 mg PO DAILYAC #30 tab Prednisone [Prednisone*] 20 mg PO SEECOM #15 tab traMADol HCL [Ultram*] 50 mg PO TID PRN #15 tab PRN Reason: Pain Patient Discharge Instructions: 1. Patient will need a follow up with her PCP in 1 week to follow up this hospitalization. 2. Patient presented with shortness of breath and chest pain. Shortness of breath likely related to COPD exacerbation. Chest pain evaluated by Cardiology. Echocardiogram was unremarkable with ejection fraction of 69%. Cardiac stress test showed no stress-induced ischemia. Patient will continue with aspirin 81 mg daily. Patient will be treated for COPD exacerbation. This includes prednisone 20 mg 1 pill twice daily for 5 days then 1 pill once daily for 5 days. Tessalon Perles 200 mg 1 pill 3 times a day as needed for cough will be provided. Patient will continue with her COPD medication-Symbicort 2 puffs twice daily and Pro air 2 puffs 3 times a day as needed for shortness of breath. Recommendation is for the patient to see pulmonology as an outpatient to further monitor and address. Recommendation is for the patient to follow up with with cardiology in 2 weeks to follow up this hospitalization. 3. Patient may have GERD. She will continue with Protonix 40 mg one pill daily. She may benefit with GI evaluation in the future. 4. Patient with Hypertension. This remained stable. She will continue with Metoprolol 50 mg one pill everyday. Recommendation to monitor BP daily. Recommendation to maintain BP less than 150/ 80 aunt further adjustment can be done by her PCP. 5. Patient had abnormal CT scan to the liver. MRI followed. MRI showed hepatic cysts, which appeared benign. This can be followed up with GI as an outpatient. Hepatitis panel pending at discharge. This can be followed up by her PCP. Diet: AHA Activity: Ad curt Time spent managing pt's care (in minutes): 55
[2017-09-20] MEDS ORDERED: PNEUMOCOCCAL VACCINE 0.5 ML IMVAC ONE (14:00)
[2017-09-22 18:11] LABS: HBsAG Nonreactive (Nonreactive); Hepatitis A IgM Antibody Nonreactive
== END 2017-09-20 14:21 | disposition home or self-care (01) ==
LOC: ER 07:41 → ERHOLD 09:29 → INTOOBSV 09:29 → 4TH 11:06
PROVIDERS: ADMIT Family Medicine; ATTEND Family Medicine
DX: J44.1 Chronic obstructive pulmonary disease with (acute) exacerbation (principal); K21.9 Gastro-esophageal reflux disease without esophagitis; I10 Essential (primary) hypertension; K76.89 Other specified diseases of liver; I25.10 Atherosclerotic heart disease of native coronary artery without angina pectoris; Z23 Encounter for immunization; F17.210 Nicotine dependence, cigarettes, uncomplicated
CPT/HCPCS: 36415; 71045; 71046; 71275; 74175; 78452; 80048; 80061; 80074; 80076; 81003; 82550; 82553; 83690; 83735; 83880; 84439; 84443; 84484; 85025; 85610; 85730; 87040; 87070; 87081; 87804; 90670; 93005; 93017; 93306; 96365; 96366; 96367; 96372; 96375; 99285; A9500; G0009; G0378; J0456; J0696; J1650; J2785; J2920; J2930; J7030; J7512; J7605; Q9967

== ENCOUNTER 2018-07-01 06:50 | Day surgery (SDC) | payer OTHER ==
[2018-07-01] MEDS ORDERED: BUPIVACAINE 0.25% PF 10 ML VIAL ONE (07:06)
[2018-07-01] MEDS ORDERED: TETRACAINE HCL 0.5% 2ML OPTH ONE (07:06)
[2018-07-01] MEDS ORDERED: LIDOCAINE 2% MPF 5 ML VIAL ONE ×2 (07:06→08:21)
[2018-07-01] MEDS ORDERED: NA CHLORIDE 0.9% 500 ML ONE (07:07)
[2018-07-01] MEDS: PHENYLEPHRINE 10% OPTH 5ML ONE ×3 (07:17→07:32)
[2018-07-01] MEDS: KETOROLAC OPTHALMIC 5 ML BOT ONE ×3 (07:17→07:32)
[2018-07-01] MEDS: CYCLOPENTOLATE 1% OPTH 2 ML ONE ×3 (07:17→07:32)
[2018-07-01] MEDS ORDERED: NS 0.9% VIAL 10 ML ONE (07:58)
[2018-07-01] MEDS ORDERED: EPINEPHRINE/PF 1 MG/ML AMP ONE (07:59)
[2018-07-01] MEDS ORDERED: BALANCED SALT IRRIG PLAIN 500 ML BTL IRR ONE (08:00)
[2018-07-01] MEDS ORDERED: DUOVISC 1 KIT OPTH ONE (08:01)
[2018-07-01] MEDS ORDERED: MOXIFLOXACIN HCL 10 DROPS/ML **OR USE OPTH ONE (08:01)
[2018-07-01] MEDS ORDERED: LIDOCAINE 1% MPF 5 ML VIAL ONE (08:01)
[2018-07-01] MEDS ORDERED: PROPOFOL 200 MG/20 ML VIAL IV ONE (08:20)
--- NOTE | 2018-07-01 08:54 | P.BOP ---
Preoperative diagnosis: Nuclear sclerotic and posterior subcapsular cataract OD Postoperative diagnosis: Same Primary procedure: Phacoemulsification with IOL OD Estimated blood loss: None Anesthesia: Local (Subtenon's infusion with anesthesia for cataract surgery) Complications: None Implants: [id number] +22.0 Transferred to: Other (Day surgery) Condition: Good
[2018-07-01 09:07] VITALS: BP 145/72; TEMP 97.3; O2SAT 100
--- NOTE | 2018-07-01 20:13 | OP ---
Date of Procedure: 07/01/2018 Surgeon: Shayna Hairston MD Anesthesiologist: Bruna Lindsey C.R.N.A. and Royce Craig M.D. Preoperative Diagnosis: Nuclear sclerotic and posterior subcapsular cataract, right eye. Operation Performed: Phacoemulsification with intraocular lens implant, right eye. Anesthesia: Per cataract surgery. Complications: None. Description Of Procedure: In day surgery, the patient was prepped with Betadine and draped. A conju nctival incision was made in the inferior nasal quadrant with Bruce scissors. A sub-Tenon block c onsisting of a 1:1 mixture of 2% Xylocaine and 0.25% bupivacaine was placed through the conjunctival incision with a blunt cannula. A Honan balloon was placed over the eye and the patient was transferr ed to the operating room. In the operating room the patient was prepped and draped in the usual sterile fashion for ophthalmic surgery. A lid speculum was placed in the right eye. Two paracentesis sites were made superiorly an d inferiorly in the limbal cornea. Viscoat was placed in the anterior chamber and a crescent blade w as used to make a corneal groove and tunnel, and a keratome was used to enter the anterior chamber. Provisc was placed in the anterior chamber and a 360 degree capsulotomy was performed with a cystitom e. The lens was hydrodissected with BSS and rotated freely. The lens was removed with a stop and ch op technique. 7.34 phaco CDE was used to remove the lens. Residual cortex was removed with the irri gation and aspiration. Provisc was placed in the capsular bag. A ZCB00 +22.0 lens was placed in the capsular bag without complications. Irrigation and aspiration were used to remove residual viscoela stic. The paracentesis sites were hydrated with BSS. The wound and paracentesis sites were inspecte d and found to be watertight. Vigamox 0.07 cc was placed intracamerally at the end of the procedure. The eye was irrigated with balanced salt solution. The eye was patched with a soft cotton patch an d Mcginnis metal shield. The patient was returned to day surgery in good condition. Comments: The lens was hydrodelineated rather than hydrodissected. Trace residual PSC remained at t he end of the procedure. Discharge Instructions: Ms. Jennings is discharged to home in good condition. She is to follow up with Dr. Hairston in the morning. TRISH/LONNIE Voice ID: [id number] Report ID: [id number]
== END 2018-07-01 09:23 | disposition home or self-care (01) ==
LOC: OR 06:50
PROVIDERS: ATTEND Ophthalmology Retina Specialist
PROC: 08RJ3JZ Replacement of Right Lens with Synthetic Substitute, Percutaneous Approach (ICD-10-PCS; principal; 2018-07-01 08:30)
DX: H25.11 Age-related nuclear cataract, right eye (principal); H25.041 Posterior subcapsular polar age-related cataract, right eye; I10 Essential (primary) hypertension; J44.9 Chronic obstructive pulmonary disease, unspecified; F17.200 Nicotine dependence, unspecified, uncomplicated; Z80.9 Family history of malignant neoplasm, unspecified
CPT/HCPCS: J0171; J2704

== ENCOUNTER 2018-08-26 07:35 | Day surgery (SDC) | payer OTHER ==
[2018-08-26] MEDS ORDERED: NA CHLORIDE 0.9% 500 ML ONE (08:15)
[2018-08-26] MEDS ORDERED: PHENYLEPHRINE 10% OPTH 5ML ONE (08:15)
[2018-08-26] MEDS ORDERED: CYCLOPENTOLATE 1% OPTH 2 ML ONE (08:15)
[2018-08-26] MEDS ORDERED: PHENYLEPHRINE 10% OPTH 5ML OPTH ONE ×2 (08:18→08:23)
[2018-08-26] MEDS ORDERED: CYCLOPENTOLATE 1% OPTH 2 ML OPTH ONE ×2 (08:18→08:23)
[2018-08-26] MEDS ORDERED: NS 0.9% VIAL 10 ML ONE (08:19)
[2018-08-26] MEDS ORDERED: MOXIFLOXACIN HCL 10 DROPS/ML **OR USE OPTH ONE ×2 (08:19→09:23)
[2018-08-26] MEDS ORDERED: BALANCED SALT IRRIG PLAIN 500 ML BTL IRR ONE (08:19)
[2018-08-26] MEDS ORDERED: EPINEPHRINE/PF 1 MG/ML AMP ONE (08:19)
[2018-08-26] MEDS ORDERED: DUOVISC 1 KIT OPTH ONE (08:19)
[2018-08-26] MEDS: TETRACAINE HCL 0.5% 2ML OPTH ONE ×2 (08:44→09:13)
[2018-08-26] MEDS: BUPIVACAINE 0.25% PF 10 ML VIAL ONE ×2 (08:44→09:14)
[2018-08-26] MEDS: LIDOCAINE 2% MPF 5 ML VIAL ONE ×2 (08:45→09:14)
[2018-08-26] MEDS ORDERED: PROPOFOL 200 MG/20 ML VIAL IV ONE (09:09)
[2018-08-26] MEDS ORDERED: LIDOCAINE 2% MPF 5 ML VIAL ONE (09:09)
--- NOTE | 2018-08-26 10:04 | P.BOP ---
Preoperative diagnosis: Nuclear sclerotic cataract and posterior polar cataract OS Postoperative diagnosis: Same Primary procedure: Phacoemulsification with IOL OS Estimated blood loss: None Anesthesia: Local (Subtenon's infusion with anesthesia for cataract surgery) Complications: None Implants: ZCB00 +22.5 Transferred to: Other (Day surgery) Condition: Good
[2018-08-26 10:26] VITALS: BP 173/64; TEMP 98.2; O2SAT 100
--- NOTE | 2018-08-26 22:04 | OP ---
Date of Procedure: 08/26/2018 Surgeon: Shayna Hairston MD Anesthesiologist: Lola Murray CRNA, and Royce Craig MD Preoperative Diagnoses: Nuclear sclerotic and posterior polar cataract, left eye. Operation Performed: Phacoemulsification with intraocular lens implant, left eye. Anesthesia: Per cataract surgery. Complications: None. Description Of Procedure: In day surgery, the patient was prepped with Betadine and draped. A conju nctival incision was made in the inferior nasal quadrant with Bruce scissors. A sub-Tenon block c onsisting of a 1:1 mixture of 2% Xylocaine and 0.25% bupivacaine was placed through the conjunctival incision with a blunt cannula. A Honan balloon was placed over the eye and the patient was transferr ed to the operating room. In the operating room the patient was prepped and draped in the usual sterile fashion for ophthalmic surgery. A lid speculum was placed in the left eye. Two paracentesis sites were made superiorly and inferiorly in the limbal cornea. Viscoat was placed in the anterior chamber and a crescent blade wa s used to make a corneal groove and tunnel, and a keratome was used to enter the anterior chamber. P rovisc was placed in the anterior chamber and a 360 degree capsulotomy was performed with a cystitome . The lens was hydrodissected with BSS and rotated freely. The lens was removed with a stop and cho p technique. 5.73 Phaco CDE was used to remove the lens. Residual cortex was removed with the irrig ation and aspiration. Provisc was placed in the capsular bag. A ZCB00 +22.5 lens was placed in the capsular bag without complications. Irrigation and aspiration was used to remove residual viscoelast ic. The paracentesis sites were hydrated with BSS. The wound and paracentesis sites were inspected and found to be watertight. Vigamox 0.07 cc was placed intracamerally at the end of the procedure. The eye was irrigated with balanced salt solution. The eye was patched with a soft cotton patch and Mcginnis metal shield. The patient was returned to day surgery in good condition. Comments: The lens was hydrodelineated rather than hydrodissected. Residual polar cataract remained at the end of the procedure. Discharge Instructions: Ms. Jennings is discharged to home in good condition. She is to follow up with Dr. Hairston in the morning. TRISH/LONNIE Voice ID: [id number] Report ID: [id number]
== END 2018-08-26 10:28 | disposition home or self-care (01) ==
LOC: OR 07:35
PROVIDERS: ATTEND Ophthalmology Retina Specialist
PROC: 08RK3JZ Replacement of Left Lens with Synthetic Substitute, Percutaneous Approach (ICD-10-PCS; principal; 2018-08-26 09:00)
DX: H25.12 Age-related nuclear cataract, left eye (principal); H25.042 Posterior subcapsular polar age-related cataract, left eye; I10 Essential (primary) hypertension; J44.9 Chronic obstructive pulmonary disease, unspecified; F17.200 Nicotine dependence, unspecified, uncomplicated; Z80.9 Family history of malignant neoplasm, unspecified
CPT/HCPCS: J0171; J2704

== ENCOUNTER 2019-10-09 12:20 | Observation (INO) | payer OTHER ==
[2019-10-09 14:48] VITALS: BMI 21.5
[2019-10-10 12:09] VITALS: BP 140/68; TEMP 98.5; O2SAT 99
== END 2019-10-10 15:12 | disposition home or self-care (01) ==
LOC: 4TH 13:28
PROVIDERS: ADMIT Family Medicine; ATTEND Family Medicine
DX: J20.9 Acute bronchitis, unspecified (principal); J44.9 Chronic obstructive pulmonary disease, unspecified; I10 Essential (primary) hypertension; F17.210 Nicotine dependence, cigarettes, uncomplicated; I25.10 Atherosclerotic heart disease of native coronary artery without angina pectoris; K21.9 Gastro-esophageal reflux disease without esophagitis; J43.9 Emphysema, unspecified; R51 Headache; R09.1 Pleurisy
CPT/HCPCS: 36415; 82550; 82553; 83735; 84484; 87070; 87081; 87804; 93005; G0378; G0379; J1650; J2270; J2405; J2920; J7512; J7606; U0002

== ENCOUNTER 2020-08-18 08:14 | Observation (INO) | payer OTHER ==
[2020-08-18 09:19] LABS: Absolute Lymphocytes (CBC) 1.4 K/uL (0.7-4.9); Basophils % 0.7 % (0-1.3); Hematocrit 36.1 % (36.0-45.0); Lymphocytes % 19.9 % (15.3-44.8); MPV 7.2 fL (7.6-11.3); RBC Red Blood Cell Count 3.98 M/uL (3.86-4.86)
[2020-08-18 09:22] LABS: Protime INR 0.98
--- NOTE | 2020-08-18 09:26 | RAD REPORT ---
EXAM DESCRIPTION: RAD - Chest Single View - 08/18/2020 9:13 am CLINICAL HISTORY: CHEST PAIN Chest pain. COMPARISON: Chest Pa And Lat (2 Views) dated 09/20/2017; Chest Single View dated 09/19/2017; CHEST PA AN D LAT 2 VIEW dated 02/15/2010; CHEST PA AND LAT 2 VIEW dated 09/05/2008 FINDINGS: Portable technique limits examination quality. The lungs are grossly clear. The heart is normal in size. No displaced fractures. IMPRESSION: No acute intrathoracic process suspected.
[2020-08-18 09:37] LABS: ALT/SGPT 16 U/L (12-78); AST/SGOT 13 U/L (15-37); Albumin 3.3 g/dL (3.4-5.0); Alkaline Phosphatase 101 U/L (45-117); BUN Blood Urea Nitrogen 15 mg/dL (7-18); Bicarbonate 28 mmol/L (21-32); Bilirubin Direct < 0.1 mg/dL (0-0.2); Bilirubin Total 0.3 mg/dL (0.2-1.0); Glucose Level 83 mg/dL (74-106); Magnesium 2.1 mg/dL (1.8-2.4); NT PRO-BNP 282 pg/mL (<450); Potassium 4.1 mmol/L (3.5-5.1); Protein, Total 6.5 g/dL (6.4-8.2); Sodium Level 142 mmol/L (136-145); Troponin (Emerg Dept Use Only) < 0.02 ng/mL (0.0-0.045)
[2020-08-18] MEDS ORDERED: TRAMADOL HCL 50 MG TAB ONE (10:15)
[2020-08-18] MEDS ORDERED: ASPIRIN 81 MG CHEWABLE TABLET ONE (13:42)
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
[2020-08-18] MEDS ORDERED: ACETAMINOPHEN 500 MG TAB PO PRN (14:15)
[2020-08-18] MEDS ORDERED: TRAMADOL HCL 50 MG TAB PO PRN (14:15)
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
[2020-08-18] MEDS ORDERED: METOPROLOL TAR 25 MG TAB PO SCH (21:00)
[2020-08-18] MEDS ORDERED: ENOXAPARIN 60 MG/0.6 ML SQ SCH (21:00)
[2020-08-18] MEDS ORDERED: ATORVASTATIN 20 MG TAB PO SCH (21:00)
[2020-08-19] MEDS ORDERED: ASPIRIN EC 81 MG TAB PO SCH (09:00)
[2020-08-19 10:13] VITALS: O2SAT 98
[2020-08-19 10:22] VITALS: BP 140/79; TEMP 98.3
== END 2020-08-18 19:34 | disposition home or self-care (01) ==
LOC: ER 08:14 → ERHOLD 14:14
PROVIDERS: ADMIT Hospitalist; ATTEND Hospitalist
DX: R07.9 Chest pain, unspecified (principal); I10 Essential (primary) hypertension; I25.10 Atherosclerotic heart disease of native coronary artery without angina pectoris; K21.9 Gastro-esophageal reflux disease without esophagitis; J44.9 Chronic obstructive pulmonary disease, unspecified; Z20.822 Contact with and (suspected) exposure to COVID-19; R94.31 Abnormal electrocardiogram [ECG] [EKG]; M19.90 Unspecified osteoarthritis, unspecified site; F17.210 Nicotine dependence, cigarettes, uncomplicated; V89.2XXA Person injured in unspecified motor-vehicle accident, traffic, initial encounter
CPT/HCPCS: 93005 ×2; 85025; 80048; 36415; 83735; 85610; 80076; 84484 ×3; 83880; 71045; 94760; 99284; U0003

== ENCOUNTER 2022-03-03 10:47 | Inpatient (IN) | payer OTHER ==
--- OUTSIDE RECORDS SUMMARY | 2022-03-03 11:34 | XMS REPORT | Clinical Summary ---
:1945 Author Organization [facility] Address [address] [place] [address] Care Team Providers Name Role Phone Sheba Velez Unavailable Clay Ahumada MD Unavailable Zhang Abernathy MD Primary Care Provider Sudeep Crouch MD Primary Care Provider [phone] Allergies Active Allergy Reactions Severity Noted Date Comments Clindamycin 09/19/2017 Other reaction( s): Itching/Hives/Rash Other reaction( s): Itching/Hives/Rash Medications Medication Sig Dispensed Refills Start Date End Date Status ProAir HFA 90 Inhale 1 puff by 0 09/12/2021 Active mcg/actuation inhaler mouth as needed. fluticasone propionate Inhale 1 spray 0 11/28/2021 Active (FLONASE) 50 mcg/spray into each nostril nasal spray as needed. metoprolol tartrate Take 1 tablet by 0 08/02/2021 Active (LOPRESSOR) 50 mg mouth daily. tablet esomeprazole (NexIUM) Take 40 mg by 0 Active 40 MG capsule mouth every morning before breakfast. calcium carbonate Take 1 tablet by 0 Active (CALCIUM 500 ORAL) mouth daily. cholecalciferol, Take 1,000 Units 0 Active vitamin D3, 25 mcg by mouth daily. (1,000 unit) capsule ascorbic acid (VITAMIN Take 500 mg by 0 Active C) 500 mg tablet mouth daily. albuterol (VENTOLIN Inhale 2 puffs by 0 12/05/2021 Active HFA,PROAIR HFA) 90 mouth. 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 Nicoderm CQ 21 mg/24 hr Apply 1 patch to 28 patch 0 2 Active transdermal skin and change patchIndications: patch daily as Nicotine dependence directed for tobacco cessation (alternate sites). Additional Information Patient not taking. Reason: No longer taking, Reported on 02/27/2022 Nicorette 2 mg mini Dissolve 1 lozenge (2 162 lozenge 0 2021 Active lozengeIndications: Nicotine mg) in the mouth every dependence 2 (two) hours as needed for smoking cessation. Avoid acidic beverages during, 5 min before/after use Additional Information Patient not taking. Reason: No longer taking, Reported on 02/27/2022 dexamethasone Take 1 tablet (4 18 tablet 2 02/24/2022 Active (DECADRON) 4 mg mg) by mouth tabletIndications: twice daily. Take Adenocarcinoma, NOS of on days 2, 3, and upper lobe, lung <Left> 4 of each chemotherapy cycle ondansetron (ZOFRAN) 8 Take 1 tablet (8 30 tablet 3 02/24/2022 Active mg tabletIndications: mg) by mouth Adenocarcinoma, NOS of every 8 (eight) upper lobe, lung <Left> hours as needed for nausea or vomiting. folic acid (FOLVITE) Take 1 tablet 30 tablet 2 02/24/2022 Active 400 mcg (400 mcg) by tabletIndications: mouth daily. Adenocarcinoma, NOS of upper lobe, lung <Left> budesonide-formoterol Inhale by mouth 0 Active (SYMBICORT) 160-4.5 twice daily. mcg/actuation inhaler apixaban (Eliquis) 5 mg Take 1 tablet (5 60 tablet 1 2 Active tabletIndications: mg) by mouth Adenocarcinoma of left every 12 (twelve) lung hours. fluticasone Inhale 1 puff by 1 each 0 02/27/2022 Active propion-salmeteroL mouth twice 232-14 mcg/actuation daily. aepbIndications: Adenocarcinoma, NOS of upper lobe, lung <Left>, Simple chronic bronchitis alendronate (FOSAMAX) Take 1 tablet by 0 11/16/202111/17 Discontinued 70 mg tablet mouth once a 03/07 (Not Applicable) week. 22 Symbicort 160-4.5 Inhale 1 puff by 0 05/26/202111/17 Discontinued mcg/actuation inhaler mouth daily. 03/07 (Not Applicable) 22 fluticasone Inhale 1 puff by 0 10/31/202102/16 Discontinued propion-salmeteroL mouth twice 08/07 (Reorder) 232-14 mcg/actuation daily. 22 aepb aspirin 325 mg Take 325 mg by 0 11/17 Discontinued tabletIndications: Last mouth. 03/07 (Not Applicable) Dose: 11/30/21 22 Nicoderm CQ 21 mg/24 hr Apply 1 patch to 28 patch 0 01/17 Discontinued transdermal skin and change 09/04 (R eorder) patchIndications: patch daily as 22 Nicotine dependence directed for tobacco cessation (alternate sites). Nicorette 2 mg mini Dissolve 1 162 lozenge 0 12/14/202101/17 Discontinued lozengeIndications: lozenge (2 mg) in (Reorder) Nicotine dependence the mouth every 2 22 (two) hours as needed for smoking cessation. Avoid acidic beverages during, 5 min before/after use apixaban (Eliquis) 5 mg Take 1 tablet (5 60 tablet 1 2 Discontinued tabletIndications: mg) by mouth 02/04 (Reorder) Adenocarcinoma of left every 12 (twelve) 22 lung hours. apixaban (Eliquis) 5 mg Take 1 tablet (5 60 tablet 1 2 02/16 Discontinued tabletIndications: mg) by mouth 08/07 (Reorder) Adenocarcinoma of left every 12 (twelve) 22 lung hours. Active Problems Problem Noted Date Cerebral thrombosis 01/24/2022 Simple chronic bronchitis 12/27/2021 Other chest pain 12/27/2021 Nicotine dependence 12/14/2021 Adenocarcinoma, NOS of upper lobe, lung <Left> 022 Cancer Staging: Clinical stage from 12/02: Stage IIB (cT3, cN0, cM0) - Signed by Josephine Modi NP on 12/22/2021 Last Assessment & Plan: Formatting of th is note might be different from the original. Ms. 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 She has completed PET scan and EBUS as well. Dr. Jim Hernadez provided a detailed explanation of her different treatment options but ultimately recommended neoadjuvant therapy in the form of a clinical trial with targeted therapy or chemoimmunotherapy followed by surgery w ith left upper lobectomy. She is seeing thoracic medical oncology today and we will see her after treatment is completed. Chronic obstructive pulmonary disease 09/20/2017 Coronary arteriosclerosis 09/20/2017 Gastroesophageal reflux disease 09/20/2017 Hypertensive disorder 09/20/2017 Tobacco user 09/20/2017 Shortness of breath 09/20/2017 Encounters Date Type Specialty Care Team Description 02/28/2022 Orders Only Pulmonology Tammy Giraldo, Chronic br onchitis, FLOAT BUILDER not otherwise specified (Prim dany Dx) 02/27/2022 Infusion Infusion Services Esther Crouchma, NOS MD Sudeep of upper lobe, lung MakasiaJulieta manuelel <Left> (Pr imary Dx) O, RN 02/27/2022 Office Visit Thoracic Medicine Esther Crouch, NOS of upper lobe, lung <Left> (Primary Dx); MD Sudeep Adenocarcinoma of left lung; Simple chronic bronchitis; Cerebral thromb osis 02/27/2022 Hospital Encounter Lab Santosh Crouch, NOS MD Sudeep of upper lobe, lung <Left> 02/27/2022 Travel 02/23/2022 Telephone Thoracic Medicine Sofy Ambrose, PA 02/23/2022 Orders Only Thoracic Medicine Sofy Ambrosec lanama, NOS E, PA of upper lobe, lung <Left> (Primary Dx) 02/23/2022 Orders Only Thoracic Medicine Tra Hollingsworth Adenoca rcinoma, NOS PharmD of upper lobe, lung <Left> (Primary Dx) 02/23/2022 Orders Only Thoracic Medicine Sofy Ambrosec arcjaden of E, PA left lung 02/17/2022 Orders Only Radiology Ambreen Almeida PA 02/17/2022 Orders Only Thoracic Medicine Franky Lopez, VALE 02/15/2022 Orders Only Thoracic Medicine Cyndy Min APN 02/13/2022 Telephone Thoracic Medicine Indira Carpio RN 02/11/2022 Clinical Support Covid Muriel Leroy, PA Suspected COVID-19 Mariama Baez, (Primary Dx ) MA 02/11/2022 Travel 02/08/2022 Orders Only Thoracic Medicine Sofy Ambrose PA 02/07/2022 Ancillary Procedure Radiology Vailati Negjan, Adeno carcinoma, NOS MD Sudeep of upper lobe, lung <Left> 02/07/2022 Travel 02/07/2022 Orders Only Radiology Muriel Leroy, STORM 02/04/2022 Ancillary Procedure Radiology Vailalove Negjan, Adeno carcinoma, NOS MD Sudeep of upper lobe, lung <Left> 02/04/2022 Travel 02/03/2022 Hospital Encounter Pulmonology Moncho Terrell, Adenoc arcinoma, NOS MD Sudeep of upper lobe, lung <Left> 02/03/2022 Hospital Encounter Infusion Services Valise Terrell, A denocarcinoma, NOS MD Sudeep of upper lobe, lung <Left> 02/03/2022 Hospital Encounter Cardiology Moncho Negjan, Adenoc arcinoma, NOS MD Sudeep of upper lobe, lung <Left> 02/03/2022 Orders Only Thoracic Medicine John, Franky, Adeno carcinoma, NOS RN of upper lobe, lung <Left> (Primary Dx) 02/03/2022 Orders Only Radiology Muriel Leroy, PA 02/03/2022 Orders Only Thoracic Medicine John, Franky, Adeno carcinoma, NOS RN of upper lobe, lung <Left> (Primary Dx) 02/03/2022 Travel 02/01/2022 Orders Only Thoracic Medicine Sharifauwo, Franky, Adeno carcinoma, NOS RN of upper lobe, lung <Left> (Primary Dx) 02/01/2022 Orders Only Thoracic Medicine John, Franky, Adeno carcinoma, NOS RN of upper lobe, lung <Left> (Primary Dx) 01/31/2022 Orders Only Radiology Giorgi Lugo PA 01/31/2022 Orders Only Thoracic Medicine Franky Lopez, Adeno carcinoma, NOS RN of upper lobe, lung <Left> (Primary Dx) 01/31/2022 Orders Only Thoracic Medicine Arnol, Sofy Adenoc arcinoma, NOS E, PA of upper lobe, lung <Left> (Primary Dx) 01/26/2022 Orders Only Thoracic Medicine Elana Yoon Adeno carcinoma, NOS of upper lobe, lung <Left> (Primary Dx) 01/24/2022 Office Visit Thoracic Medicine Moncho Terrell, Adenoca rcinoma, NOS of upper lobe, lung <Left> (Primary Dx); MD Sudeep Cerebral thromb osis 01/24/2022 Orders Only Thoracic Medicine Sana Wilcox Adenoca rcinoma, NOS M, H[employer] B[employer] HANDLER of upper lobe, lung <Left> (Primary Dx) 01/24/2022 Travel 01/22/2022 Orders Only Thoracic Medicine Moncho Terrell, Adenoca rcinoma, NOS MD Sudeep of upper lobe, lung <Left> (Primary Dx) 01/19/2022 Orders Only Thoracic Medicine Arnol, Sofy Adenoc arcinoma, NOS E, PA of upper lobe, lung <Left> (Primary Dx) 01/13/2022 Telephone Thoracic Medicine Dany Delacruz RN 01/09/2022 Telemedicine Thoracic Medicine Moncho Terrell, Adenoca rcinoma of MD Sudeep left lung 01/09/2022 Orders Only Hematology Susie Ahumada NP 01/05/2022 Telephone Thoracic Medicine Arnol Sofy E, PA 01/04/2022 Ancillary Procedure Radiology Arnol, Sofy Cere bral venous sinus thrombosis; E, PA Screening 01/04/2022 Travel 01/03/2022 Hospital Encounter Wade Sorto MD Proto, Sofy E, PA 01/03/2022 Ancillary Procedure Radiology Arnol, Sofy Jose ocarcinoma of E, PA left lung 01/03/2022 Orders Only Radiology Holley Barbosa MD 01/03/2022 Orders Only Thoracic Medicine Arnol, Sofy Adenoc arcinoma, NOS of upper lobe, lung <Left> (Primary Dx); E, PA Cerebral venous sinus thrombosis; Screening 01/03/2022 Travel 12/27/2021 Hospital Encounter Lab Sofy Ambrose Adeno carcinoma of E, PA left lung 12/27/2021 Consult Thoracic Medicine Moncho Terrell, Adenoca rcinoma of left lung (Primary Dx); MD Sudeep Nicotine depend ence; Simple chronic bronchitis; Other chest benjamin n 12/27/2021 Consult Thoracic Surgery Jim Hernadez MD Adenoc arcinoma, NOS of upper lobe, lung <Left> (Primary Dx); Adenocarcinoma of left lung 12/27/2021 Orders Only Radiology Holley Barbosa MD 12/27/2021 Travel 12/23/2021 Telephone Pulmonology Pedro Penaloza Results MD Radha 12/21/2021 Anesthesia Event Pulmonology Goldie Magdaleno MD 12/21/2021 Surgery Pulmonology Kaylie Mota, BRONCHOSCOPY WITH EBUS 3 OR MORE NODES 12/21/2021 Hospital Encounter Pulmonology Kaylie Mota Lung m ass 12/21/2021 Orders Only Pulmonology Pedro Pnealoza Adenocarcinoma of MD Radha left lung (Prim dany Dx) 12/21/2021 Travel 12/20/2021 Anesthesia Event Anesthesiology Jennie Mcbride NP 12/20/2021 Consult Pulmonology Kaylie Mota, Adenocarcino ma of left lung 12/20/2021 Clinical Support Tammy Pandya, Emma lemus COVID-19 (Primary Dx); FLOAT BUILDER Lung mass Yu Hawk RN 12/20/2021 POEM Appointments Anesthesiology Zhang Abernathy MD 12/20/2021 Travel 12/12/2021 Telephone Internal Medicine Zhang Abernathy MD 12/09/2021 Ancillary Procedure Radiology Zhang Abernathy, Inocencia nocarcinoma of MD left lung 12/09/2021 Documentation Shyanne Muñiz 12/09/2021 Prep for Surgery Pulmonology Tammy Giraldo Lung m ass (Primary FLOAT BUILDER Dx) 12/09/2021 Travel 12/08/2021 Telephone Internal Medicine Zhang Abernathy Resul ts MD 12/02/2021 Hospital Encounter Radiology 12/02/2021 Hospital Encounter Radiology 12/02/2021 Hospital Encounter Radiology Zhang Abernathy, Mult iple nodules of lung; Lung mass Jason De Jesus MD 12/02/2021 Travel 12/01/2021 Hospital Encounter Pulmonology Zhang Abernathy, Polit iple nodules of lung; Lung mass 12/01/2021 Hospital Encounter Cardiology Zhang Abernathy, Mult iple nodules of lung; Lung mass 12/01/2021 Clinical Support Covid Ella Adame, Suspecte d COVID-19 PA (Primary Dx) Sandy Chowdhury RN 12/01/2021 Hospital Encounter Radiology Zhang Abernathy, Mult iple nodules of lung (Primary Dx); Hypertension; Ella Adame, Current use of antiplatelet; PA Encounter for o ther preprocedural examination 12/01/2021 Orders Only Radiology Olimpia Ding PA 12/01/2021 Travel 11/30/2021 Orders Only Radiology Ella Adame PA 11/29/2021 Ancillary Procedure Radiology Zhang Abernathy, Rhett delgado MD 11/29/2021 Hospital Encounter Lab Zhang Abernathy, Mult iple nodules of lung; Lung mass 11/29/2021 Office Visit Internal Medicine Zhang Abernathy, Multi ple nodules of lung; Lung mass 11/29/2021 Travel 11/25/2021 NPR Patient Access Services 11/23/2021 Ancillary Procedure Radiology Cancer 11/23/2021 Ancillary Procedure Radiology Cancer 11/22/2021 Orders Only Internal Medicine Shaista, Gary f delano Donaldson NP on diagnostic imaging of lung (Primary Dx) 11/17/2021 Travel 11/17/2021 Telephone Patient Access Tristen Hanson, RN after 03/03/2021 Immunizations Name Administration Dates Next Due Pneumococcal Polysaccharide 09/20/2017 Surgical History Surgery Date Site/Laterality Comments 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" CORONARY ANGIOPLASTY 06/18/2016 - no interven tion 06/17/2017 CATARACT EXTRACTION Bilateral BILATERAL W/ ANTERIOR VITRECTOMY COLONOSCOPY 06/18/2017 - 3 precancerous p olpys 06/17/2018 removed DILATION AND CURETTAGE OF UTERUS MD [facility] EBUS GUIDED 12/21/2021 N/A Procedure : BRONCHOSCOPY SAMPL 3/> NODE WITH EBUS 3 OR M ORE NODES; STATION/STRUX Surgeon: Kaylie Mota MD; Location: [place] [facility]; Service: P [facility] Medical History Medical History Date Comments Allergic rhinitis 2006 Lung nodule Chronic bronchitis Osteoporosis Arthritis Chronic obstructive pulmonary disease Essential (primary) hypertension Acid reflux Lesion of liver Benign cyst of ovary Screening mammography 2017 WNL Family History Medical History Relation Name Comments Dementia Brother Skin cancer Daughter Brain cancer Mother Mrs Polanco Relation Name Status Comments Brother Daughter Father Mother Mrs Polanco Son Social History Tobacco Use Types Packs/Day Years Used Date Former Smoker Cigarettes 1 62 06/18/1959 - 0 01/12/2022 Smokeless Tobacco: Never Used Tobacco Cessation: Ready to Quit: Yes; C ounseling Given: Yes Comments: 6-8 cpd x 1 month Alcohol Use Standard Drinks/Week Comments Not Currently 0 (1 standard drink = 0.6 oz pure alcoho l) Education Answer Date Recorded What is the highest level of school you have completed or 10 th grade 11/29/2021 the highest degree you have received? Sex Assigned at Date Recorded Not on file Job Start Date Occupation Industry Not on file Not on file Not on file COVID-19 Exposure Response Date Recorded In the last 10 days, have you been in contact with No / Unsu re 02/27/2022 11:03 AM CDT someone who was confirmed or suspected to have Coronavirus/COVID-19? Obstetrics History Last Filed Vital Signs Vital Sign Reading Time Taken Comments Blood Pressure 139/63 02/27/2022 11:23 AM CDT Pulse 60 02/27/2022 11:23 AM CDT Temperature 37.1 C (98.8 F) 02/27/2022 11:23 AM CDT Respiratory Rate 20 02/27/2022 11:23 AM CDT Oxygen Saturation 97% 02/27/2022 11:23 AM CDT Inhaled Oxygen Concentration - - Weight 47.8 kg (105 lb 6.1 oz) 02/27/2022 11:23 AM CDT Height 151 cm (4' 11.45") 02/07/2022 1:21 PM CDT Body Mass Index 20.96 02/07/2022 1:21 PM CDT Plan of Treatment Date Type Specialty Care Team Description 03/20/2022 Appointment Lab Sudeep Crouch MD [facility] [place], [place] [address] (Wo rk) 03/20/2022 Office Visit Thoracic Medicine Sudeep Crouch MD [address] [place] [phone] (Wo rk) 03/20/2022 Appointment Pulmonology Tammy Giraldo FNP [address] [place] [phone] (Wo rk) 03/20/2022 Consult Pulmonology Kaylie Mota MD [address] [place] [phone] (Wo rk) 03/20/2022 Appointment Infusion Services Sudeep Crouch MD [facility] [place], [place] [address] (Wo rk) 03/27/2022 Office Visit Hematology Kris Barrios MD [address] [place] [id number] Keaton Rodriguez MD [address] [place] [phone] Health Maintenance Due Date Last Done Comments COVID-19 Vaccination (#1) 10/12/1950 Procedures Procedure Name Priority Date/Time Associated Diagnosis Comme nts MANUAL DIFFERENTIAL Routine 02/27/2022 8:30 Adenocarcinoma, NO S Results for this AM CDT of upper lobe, lung procedur e are in <Left> the results section. Results CBC Routine 02/27/2022 8:30 Adenocarcinoma, NOS Resul ts for this AM CDT of upper lobe, lung procedur e are in <Left> the results section. FRACTIONATED BILIRUBIN Routine 02/27/2022 8:30 Adenocarcinoma, NOS Results for this AM CDT of upper lobe, lung procedur e are in <Left> the results section. TOTAL PROTEIN Routine 02/27/2022 8:30 Adenocarcinoma, NOS Resu lts for this AM CDT of upper lobe, lung procedur e are in <Left> the results section. ASPARTATE Routine 02/27/2022 8:30 Adenocarcinoma, NOS Resul ts for this AMINOTRANSFERASE AM CDT of upper lobe, lung proc edure are in <Left> the results section. ALANINE Routine 02/27/2022 8:30 Adenocarcinoma, NOS Resul ts for this AMINOTRANSFERASE AM CDT of upper lobe, lung proc edure are in <Left> the results section. ALKALINE PHOSPHATASE Routine 02/27/2022 8:30 Adenocarcinoma, N OS Results for this AM CDT of upper lobe, lung procedur e are in <Left> the results section. ALBUMIN LEVEL Routine 02/27/2022 8:30 Adenocarcinoma, NOS Resu lts for this AM CDT of upper lobe, lung procedur e are in <Left> the results section. CALCIUM LEVEL TOTAL Routine 02/27/2022 8:30 Adenocarcinoma, NO S Results for this AM CDT of upper lobe, lung procedur e are in <Left> the results section. .GLOMERULAR FILTRATION Routine 02/27/2022 8:30 Adenocarcinoma, NOS Results for this RATE AM CDT of upper lobe, lung procedur e are in <Left> the results section. SERUM CREATININE Routine 02/27/2022 8:30 Adenocarcinoma, NOS R esults for this AM CDT of upper lobe, lung procedur e are in <Left> the results section. ELECTROLYTE PANEL Routine 02/27/2022 8:30 Adenocarcinoma, NOS Results for this AM CDT of upper lobe, lung procedur e are in <Left> the results section. BLOOD UREA NITROGEN Routine 02/27/2022 8:30 Adenocarcinoma, NO S Results for this AM CDT of upper lobe, lung procedur e are in <Left> the results section. GLUCOSE LEVEL Routine 02/27/2022 8:30 Adenocarcinoma, NOS Resu lts for this AM CDT of upper lobe, lung procedur e are in <Left> the results section. FREE THYROXINE Routine 02/27/2022 8:30 Adenocarcinoma, NOS Res ults for this AM CDT of upper lobe, lung procedur e are in <Left> the results section. THYROID STIMULATING Routine 02/27/2022 8:30 Adenocarcinoma, NO S Results for this HORMONE AM CDT of upper lobe, lung procedur e are in <Left> the results section. PHOSPHORUS LEVEL Routine 02/27/2022 8:30 Adenocarcinoma, NOS R esults for this AM CDT of upper lobe, lung procedur e are in <Left> the results section. MAGNESIUM LEVEL Routine 02/27/2022 8:30 Adenocarcinoma, NOS Re sults for this AM CDT of upper lobe, lung procedur e are in <Left> the results section. COMPLETE BLOOD COUNT W/ Routine 02/27/2022 8:30 Adenocarcinoma , NOS DIFFERENTIAL AM CDT of upper lobe, lung <Left> COMPREHENSIVE METABOLIC Routine 02/27/2022 8:30 Adenocarcinoma , NOS PANEL AM CDT of upper lobe, lung <Left> COVID-19 (SARS-COV-2) Routine 02/11/2022 3:11 Suspected COVID- 19 Results for this PCR-ASYMPTOMATIC MC PM CDT procedur e are in the results section. PETCT SUBSEQUENT Routine 02/07/2022 3:05 Adenocarcinoma, NOS R esults for this TREATMENT STRATEGY PM CDT of upper lobe, lung pr ocedure are in <Left> the results section. MRI BRAIN W WO CONTRAST Routine 02/04/2022 10:41 Adenocarcinom a, NOS Results for this AM CDT of upper lobe, lung procedur e are in <Left> the results section. SPIROMETRY W/DILATORS, Routine 02/03/2022 2:30 Adenocarcinoma, NOS Results for this DLCO AND BODY PM CDT of upper lobe, lung procedu re are in PLETHSMOGRAPHIC LUNG <Left> the res ults VOLUMES section. URINALYSIS MICROSCOPIC Routine 02/03/2022 1:10 Re sults for this PM CDT procedure are i n the results section. FRACTIONATED BILIRUBIN Now 02/03/2022 1:10 Adenocarcinoma, NOS Results for this PM CDT of upper lobe, lung procedur e are in <Left> the results section. TOTAL PROTEIN Now 02/03/2022 1:10 Adenocarcinoma, NOS Resu lts for this PM CDT of upper lobe, lung procedur e are in <Left> the results section. ASPARTATE Now 02/03/2022 1:10 Adenocarcinoma, NOS Resul ts for this AMINOTRANSFERASE PM CDT of upper lobe, lung proc edure are in <Left> the results section. ALANINE Now 02/03/2022 1:10 Adenocarcinoma, NOS Resul ts for this AMINOTRANSFERASE PM CDT of upper lobe, lung proc edure are in <Left> the results section. ALKALINE PHOSPHATASE Now 02/03/2022 1:10 Adenocarcinoma, N OS Results for this PM CDT of upper lobe, lung procedur e are in <Left> the results section. ALBUMIN LEVEL Now 02/03/2022 1:10 Adenocarcinoma, NOS Resu lts for this PM CDT of upper lobe, lung procedur e are in <Left> the results section. CALCIUM LEVEL TOTAL Now 02/03/2022 1:10 Adenocarcinoma, NO S Results for this PM CDT of upper lobe, lung procedur e are in <Left> the results section. .GLOMERULAR FILTRATION Now 02/03/2022 1:10 Adenocarcinoma, NOS Results for this RATE PM CDT of upper lobe, lung procedur e are in <Left> the results section. SERUM CREATININE Now 02/03/2022 1:10 Adenocarcinoma, NOS R esults for this PM CDT of upper lobe, lung procedur e are in <Left> the results section. ELECTROLYTE PANEL Now 02/03/2022 1:10 Adenocarcinoma, NOS Results for this PM CDT of upper lobe, lung procedur e are in <Left> the results section. BLOOD UREA NITROGEN Now 02/03/2022 1:10 Adenocarcinoma, NO S Results for this PM CDT of upper lobe, lung procedur e are in <Left> the results section. GLUCOSE LEVEL Now 02/03/2022 1:10 Adenocarcinoma, NOS Resu lts for this PM CDT of upper lobe, lung procedur e are in <Left> the results section. MANUAL DIFFERENTIAL Now 02/03/2022 1:10 Adenocarcinoma, NO S Results for this PM CDT of upper lobe, lung procedur e are in <Left> the results section. Results CBC Now 02/03/2022 1:10 Adenocarcinoma, NOS Resul ts for this PM CDT of upper lobe, lung procedur e are in <Left> the results section. URINALYSIS WITH Now 02/03/2022 1:10 Adenocarcinoma, NOS Re sults for this MICROSCOPIC IF PM CDT of upper lobe, lung proced ure are in INDICATED <Left> the results section. MAGNESIUM LEVEL Now 02/03/2022 1:10 Adenocarcinoma, NOS Re sults for this PM CDT of upper lobe, lung procedur e are in <Left> the results section. LACTATE DEHYDROGENASE Now 02/03/2022 1:10 Adenocarcinoma, NOS Results for this PM CDT of upper lobe, lung procedur e are in <Left> the results section. GAMMA GLUTAMYL Now 02/03/2022 1:10 Adenocarcinoma, NOS Res ults for this TRANSFERASE PM CDT of upper lobe, lung procedur e are in <Left> the results section. LIPASE LEVEL Now 02/03/2022 1:10 Adenocarcinoma, NOS Resul ts for this PM CDT of upper lobe, lung procedur e are in <Left> the results section. AMYLASE LEVEL Now 02/03/2022 1:10 Adenocarcinoma, NOS Resu lts for this PM CDT of upper lobe, lung procedur e are in <Left> the results section. HEPATITIS C VIRUS Now 02/03/2022 1:10 Adenocarcinoma, NOS Results for this ANTIBODY PM CDT of upper lobe, lung procedur e are in <Left> the results section. HEPATITIS B SURFACE Now 02/03/2022 1:10 Adenocarcinoma, NO S Results for this ANTIGEN, SERUM PM CDT of upper lobe, lung proced ure are in <Left> the results section. THYROID STIMULATING Now 02/03/2022 1:10 Adenocarcinoma, NO S Results for this HORMONE PM CDT of upper lobe, lung procedur e are in <Left> the results section. CORTISOL Now 02/03/2022 1:10 Adenocarcinoma, NOS Resul ts for this PM CDT of upper lobe, lung procedur e are in <Left> the results section. COMPREHENSIVE METABOLIC Now 02/03/2022 1:10 Adenocarcinoma , NOS PANEL PM CDT of upper lobe, lung <Left> COMPLETE BLOOD COUNT W/ Now 02/03/2022 1:10 Adenocarcinoma , NOS DIFFERENTIAL PM CDT of upper lobe, lung <Left> PROTHROMBIN TIME Now 02/03/2022 1:10 Adenocarcinoma, NOS R esults for this PM CDT of upper lobe, lung procedur e are in <Left> the results section. APTT Now 02/03/2022 1:10 Adenocarcinoma, NOS Resul ts for this PM CDT of upper lobe, lung procedur e are in <Left> the results section. EKG, 12-LEAD Routine 02/03/2022 Adenocarcinoma, NOS (SCHEDULED) of upper lobe, lung <Left> TISSUE SLIDES MATERIAL Routine 01/29/2022 12:43 Adenocarcinoma , NOS REQUEST PM CDT of upper lobe, lung <Left> AP FISH ROS1 MATERIAL Routine 01/22/2022 6:11 Adenocarcinoma, NOS REQUEST PM CDT of upper lobe, lung <Left> AP FISH ALK MATERIAL Routine 01/22/2022 6:11 Adenocarcinoma, N OS REQUEST PM CDT of upper lobe, lung <Left> CT VENOGRAM BRAIN Routine 01/04/2022 2:03 Cerebral venous sinu s Results for this PM CDT thrombosis procedure are in Screening the results section. MRI BRAIN W WO CONTRAST Routine 01/03/2022 10:40 Adenocarcinom a of Results for this AM CDT left lung procedure are i n the results section. HP SOLID TUMOR Routine 01/03/2022 10:20 GENOMIC ASSAY FUSIONS AM CDT 2018 INTERPRETATION AND REPORT HP MDA LOR MUTATION Routine 01/03/2022 10:20 ANALYSIS PRECISION AM CDT PANEL REPORT HP LB LIQUID BIOPSY Routine 12/27/2021 12:21 PANEL V1 INTERPRETATION PM CDT AND REPORT NGS BLOOD CONTROL Routine 12/27/2021 12:21 Adenocarcinoma o f Results for this PM CDT left lung procedure are i n the results section. HP LB BRAF MUTATION Routine 12/27/2021 12:21 Adenocarcinoma of Results for this ANALYSIS COLLECTION, PM CDT left lung procedu re are in BLOOD the results section. HP LB EML4/ALK FUSION Routine 12/27/2021 12:21 Adenocarcinoma of Results for this ANALYSIS COLLECTION, PM CDT left lung procedu re are in BLOOD the results section. HP LB ERBB2 FULL GENE Routine 12/27/2021 12:21 Adenocarcinoma of Results for this MUTATION ANALYSIS PM CDT left lung procedure are in COLLECTION, BLOOD the result s section. HP LB MET MUTATION Routine 12/27/2021 12:21 Adenocarcinoma of Results for this ANALYSIS COLLECTION, PM CDT left lung procedu re are in BLOOD the results section. HP LB RET FUSION Routine 12/27/2021 12:21 Adenocarcinoma of Re sults for this ANALYSIS COLLECTION, PM CDT left lung procedu re are in BLOOD the results section. HP LB ROS1 FUSION Routine 12/27/2021 12:21 Adenocarcinoma of R esults for this ANALYSIS COLLECTION, PM CDT left lung procedu re are in BLOOD the results section. ANABEL HO BRAF V600 E Routine 12/27/2021 11:44 Adenocarcinoma of R esults for this MUTATION MATERIAL AM CDT left lung procedure are in REQUEST the results section. ANABEL HO EGFR MUTATION Routine 12/27/2021 11:44 Adenocarcinoma of Results for this MATERIAL REQUEST AM CDT left lung procedure a re in the results section. ANABEL HO EML4/ALK FUSION Routine 12/27/2021 11:44 Adenocarcinoma of Results for this ANALYSIS MATERIAL AM CDT left lung procedure are in REQUEST the results section. ANABEL HO KRAS MUTATION Routine 12/27/2021 11:44 Adenocarcinoma of Results for this MATERIAL REQUEST AM CDT left lung procedure a re in the results section. ANABEL HO NTRK1 FUSION Routine 12/27/2021 11:44 Adenocarcinoma of Results for this ANALYSIS MATERIAL AM CDT left lung procedure are in REQUEST the results section. ANABEL HO NTRK2 FUSION Routine 12/27/2021 11:44 Adenocarcinoma of Results for this ANALYSIS MATERIAL AM CDT left lung procedure are in REQUEST the results section. ANABEL HO NTRK3 FUSION Routine 12/27/2021 11:44 Adenocarcinoma of Results for this ANALYSIS MATERIAL AM CDT left lung procedure are in REQUEST the results section. ANABEL HO RET FUSION Routine 12/27/2021 11:44 Adenocarcinoma of Re sults for this ANALYSIS MATERIAL AM CDT left lung procedure are in REQUEST the results section. ANABEL HO ROS1 FUSION Routine 12/27/2021 11:44 Adenocarcinoma of R esults for this ANALYSIS MATERIAL AM CDT left lung procedure are in REQUEST the results section. AP IHC PD-L1 MATERIAL Routine 12/27/2021 11:44 Adenocarcinoma of REQUEST AM CDT left lung CYTOLOGY IMAGE-GUIDED Routine 12/21/2021 1:05 Lung mass Res ults for this FNA INTERPRETATION PM CDT procedure are in the results section. BRONCHOSCOPY WITH EBUS 12/21/2021 12:21 Lung mass 3 OR MORE NODES PM CDT MD COVID-19 Routine 12/20/2021 1:44 Suspected COVID-19 Result s for this (SARS-COV-2) PCR PM CDT procedure a re in ASYMPTOMATIC the results section. XR CHEST 2 VW Routine 12/09/2021 11:37 Adenocarcinoma of Resul ts for this AM CDT left lung procedure are i n the results section. IR CHEST XRAY 1 VIEW Routine 12/02/2021 2:53 Resu lts for this PM CDT procedure are i n the results section. IR CHEST XRAY 1 VIEW STAT 12/02/2021 11:48 Res ults for this AM CDT procedure are i n the results section. IR CT GUIDED BIOPSY Routine 12/02/2021 11:40 Multiple nodules of Results for this LUNG/MEDIASTINAL AM CDT lung procedure are in Lung mass the results section. PATHOLOGY BIOPSY Routine 12/02/2021 11:15 Multiple nodules of Results for this INTERPRETATION AM CDT lung procedure are in Lung mass the results section. SPIROMETRY W/DILATORS, Routine 12/01/2021 2:27 Multiple nodule s of Results for this DLCO AND BODY PM CDT lung procedure are in PLETHSMOGRAPHIC LUNG Lung mass the res ults VOLUMES section. COVID-19 (SARS-COV-2) Routine 12/01/2021 10:36 Suspected COVID -19 Results for this PCR-ASYMPTOMATIC MC AM CDT procedur e are in the results section. EKG, 12-LEAD Routine 12/01/2021 Multiple nodules of (SCHEDULED) lung Lung mass MANUAL DIFFERENTIAL Routine 11/29/2021 6:01 Multiple nodules o f Results for this PM CDT lung procedure are in Lung mass the results section. Results CBC Routine 11/29/2021 6:01 Multiple nodules of Resul ts for this PM CDT lung procedure are in Lung mass the results section. FRACTIONATED BILIRUBIN Routine 11/29/2021 6:01 Multiple nodule s of Results for this PM CDT lung procedure are in Lung mass the results section. TOTAL PROTEIN Routine 11/29/2021 6:01 Multiple nodules of Resu lts for this PM CDT lung procedure are in Lung mass the results section. ASPARTATE Routine 11/29/2021 6:01 Multiple nodules of Resul ts for this AMINOTRANSFERASE PM CDT lung procedure are in Lung mass the results section. ALANINE Routine 11/29/2021 6:01 Multiple nodules of Resul ts for this AMINOTRANSFERASE PM CDT lung procedure are in Lung mass the results section. ALKALINE PHOSPHATASE Routine 11/29/2021 6:01 Multiple nodules of Results for this PM CDT lung procedure are in Lung mass the results section. ALBUMIN LEVEL Routine 11/29/2021 6:01 Multiple nodules of Resu lts for this PM CDT lung procedure are in Lung mass the results section. CALCIUM LEVEL TOTAL Routine 11/29/2021 6:01 Multiple nodules o f Results for this PM CDT lung procedure are in Lung mass the results section. .GLOMERULAR FILTRATION Routine 11/29/2021 6:01 Multiple nodule s of Results for this RATE PM CDT lung procedure are in Lung mass the results section. SERUM CREATININE Routine 11/29/2021 6:01 Multiple nodules of R esults for this PM CDT lung procedure are in Lung mass the results section. ELECTROLYTE PANEL Routine 11/29/2021 6:01 Multiple nodules of Results for this PM CDT lung procedure are in Lung mass the results section. BLOOD UREA NITROGEN Routine 11/29/2021 6:01 Multiple nodules o f Results for this PM CDT lung procedure are in Lung mass the results section. GLUCOSE LEVEL Routine 11/29/2021 6:01 Multiple nodules of Resu lts for this PM CDT lung procedure are in Lung mass the results section. T-SPOT TUBERCULOSIS Routine 11/29/2021 6:01 Multiple nodules o f Results for this PM CDT lung procedure are in Lung mass the results section. HISTOPLASMA ANTIBODY Routine 11/29/2021 6:01 Multiple nodules of Results for this SCREEN, SERUM PM CDT lung procedure are in Lung mass the results section. COCCIDIOIDES ANTIBODY Routine 11/29/2021 6:01 Multiple nodules of Results for this PM CDT lung procedure are in Lung mass the results section. THYROID STIMULATING Routine 11/29/2021 6:01 Multiple nodules o f Results for this HORMONE PM CDT lung procedure are in Lung mass the results section. HEPATITIS C VIRUS Routine 11/29/2021 6:01 Multiple nodules of Results for this ANTIBODY PM CDT lung procedure are in Lung mass the results section. HEPATITIS B CORE Routine 11/29/2021 6:01 Multiple nodules of R esults for this ANTIBODY PM CDT lung procedure are in Lung mass the results section. HEPATITIS B SURFACE Routine 11/29/2021 6:01 Multiple nodules o f Results for this ANTIGEN, SERUM PM CDT lung procedure are in Lung mass the results section. APTT Routine 11/29/2021 6:01 Multiple nodules of Resul ts for this PM CDT lung procedure are in Lung mass the results section. PROTHROMBIN TIME Routine 11/29/2021 6:01 Multiple nodules of R esults for this PM CDT lung procedure are in Lung mass the results section. COMPLETE BLOOD COUNT W/ Routine 11/29/2021 6:01 Multiple nodul es of DIFFERENTIAL PM CDT lung Lung mass COMPREHENSIVE METABOLIC Routine 11/29/2021 6:01 Multiple nodul es of PANEL PM CDT lung Lung mass CRYPTOCOCCAL ANTIGEN, Routine 11/29/2021 6:01 Res ults for this SERUM PATH REVIEW PM CDT procedure are in the results section. CRYPTOCOCCAL ANTIGEN, Routine 11/29/2021 6:01 Multiple nodules of Results for this SERUM PM CDT lung procedure are in Lung mass the results section. OSI PET CT SKULL TO MID Routine 11/28/2021 11:06 Cancer Results for this THIGH PM CDT procedure are i n the results section. OSI CT CHEST Routine 11/16/2021 2:06 Cancer Results for this AM CDT procedure are i n the results section. OSI BONE DENSITY STUDY Routine 10/28/2021 2:06 Cancer Re sults for this AM CDT procedure are i n the results section. after 03/03/2021 Results (ABNORMAL) .Serum Creatinine (02/27/2022 8:30 AM CDT)Only the most recent of3 resultswithin the time period is included. P athologist Signature Creatinine 1.19 (H) 0.51 - [place] [facility] 0.95 mg/dL [facility] Specimen Anatomical Collection Method Collection Time Receive d Time (Source) Location / / Volume Laterality Blood 02/27/2022 8:30 AM 8:41 CDT AM CDT Sudeep Terrell MD LAB BLOOD ORDERABLES Performing Organization Address City/State/ZIP Code Phon e Number [place] [facility] Unless otherwise noted, [place], [place] [address] CENTER all lab tests performed by: Division of Pathology and Laboratory Medicine [address] Bautista (ABNORMAL) .CBC (02/27/2022 8:30 AM CDT)Only the most recent of3 resultswithin the time period is included. Analysis Performed At Patho logist Time Signature WBC 9.7 4.0 - 11.0 [place] [facility] K/uL [facility] RBC 4.28 4.00 - [facility] 5.50 M/uL [facility] Hgb 12.9 12.0 - [facility] 16.0 gm/dL DIAG[facility] CENTER Hct 40.7 37.0 - [facility] 47.0 % DI[facility] CENTER MCV 95 82 - 98 [facility] MCH 30.1 27.0 - [facility] 31.0 pg DIAGNOSTIC CENTER MCHC 31.7 31.0 - [facility] 36.0 gm/dL DIAGNOSTIC CENTER RDW-SD 49.7 (H) 35.1 - [facility] 46.3 fL DIAGNOSTIC CENTER RDW-CV 14.3 12.0 - [facility] 15.5 % [facility] Platelet count 273 140 - 440 [facility] K/uL [facility] CENTER MPV 8.9 4.0 - 10.4 [facility] CENTER INRBC 0.0 <=0.0 % [facility] Comment: The INRBC (instrument NRBC) value reflec ts the enumeration of nucleated red blood cells contained i n a 200uL sample of whole blood analyzed by the instrumen t. This value may differ from the NRBC value reported in a manual differential, which is based on a 100 cell differentia l. Specimen Anatomical Collection Method Collection Time Receive d Time (Source) Location / / Volume Laterality Blood 02/27/2022 8:30 AM 8:36 CDT AM CDT Sudeep Terrell MD LAB BLOOD ORDERABLES Performing Organization Address City/State/ZIP Code Phon e Number [facility] Unless otherwise noted, [place], [place] [address] CENTER all lab tests performed by: Division of Pathology and Laboratory Medicine [facility] [place] (ABNORMAL) Glomerular Filtration Rate (02/27/2022 8:30 AM CDT)Only the most recent of3 resultswithin the time period is included. athologist Signature eGFR-AA 51 (L) >=60 [facility] mL/min/1.73 DIAGNOSTIC sq. m CENTER Comment: Normal eGFR: >= 60 mL/min/1.73 m2 Note: The eGFR is calculated using the C KD-EPI equation. The eGFR declines with age. eGFR <60 mL/min/1.73 m2 is considered as "decreased". This equation should only be used for patients 18 and older. According to the National Kid[employer] ion's Kidney Disease Outcome Quality Initiative (KDOQI) classification and 2012 Kidney Disease Improving Global Outcomes (KDIGO) Clinical Practice Guideline, the stage of CKD should be categorized based on estimated GFR. Stage Description GFR mL/min/1. 73 m2 1 Normal or high GFR >=90 2 Mildly decreased GFR 60-89 3a Mildly to moderately decreased GFR 45-59 3b Moderately to severely decreased GFR 30-44 4 Severely decreased GFR 15-29 5 Kidney failure <15 eGFR-DANIEL 44 (L) >=60 mL/min/1.73 sq. m [place] [facility] Comment: Normal eGFR: >= 60 mL/min/1.73 m2 Note: The eGFR is calculated using the C KD-EPI equation. The eGFR declines with age. eGFR <60 mL/min/1.73 m2 is considered as "decreased". This equation should only be used for patients 18 and older. According to the National [employer] ion's Kidney Disease Outcome Quality Initiative (KDOQI) classification and 2012 Kidney Disease Improving Global Outcomes (KDIGO) Clinical Practice Guideline, the stage of CKD should be categorized based on estimated GFR. Stage Description GFR mL/min/1. 73 m2 1 Normal or high GFR >=90 2 Mildly decreased GFR 60-89 3a Mildly to moderately decreased GFR 45-59 3b Moderately to severely decreased GFR 30-44 4 Severely decreased GFR 15-29 5 Kidney failure <15 Specimen Anatomical Collection Method Collection Time Receive d Time (Source) Location / / Volume Laterality Blood 02/27/2022 8:30 AM 2 8:41 CDT AM CDT Sudeep Terrell MD LAB BLOOD ORDERABLES Performing Organization Address City/State/ZIP Code Phon e Number [place] [facility] Unless otherwise noted, [place], [place] [address] [place] all lab tests performed by: Division of Pathology and Laboratory Medicine [facility] Fractionated Bilirubin (02/27/2022 8:30 AM CDT)Only the most recent of3 results within the time period is included. athologist Signature Bili Total 0.4 <=1.2 mg/dL [place] [facility] Comment: Indocyanine Green (ICG) may cause falsel y elevated bilirubin results. Total and direct bilirubin must not be measured from samples containing indocyanine green. False elevation of total bilirubin can b e seen in patients with IgG concentrations above 28 g/L. Bili Direct <0.2 <=0.3 mg/dL [place] [facility] Comment: Indocyanine Green (ICG) may cau se falsely elevated bilirubin results. Total and direct bilirubin must not be measure d from samples containing indocyanine green. Bili Indirect See Note 0.0 - 0.9 mg/dL [place] [facility] Comment: Unable to calculate Indirect Bi lirubin result due to some parameters are outside reportable range Specimen Anatomical Collection Method Collection Time Receive d Time (Source) Location / / Volume Laterality Blood 02/27/2022 8:30 AM 8:41 CDT AM CDT Sudeep Terrell MD LAB BLOOD ORDERABLES Performing Organization Address City/State/ZIP Code Phon e Number [facility] Unless otherwise noted, [place] [address] CENTER all lab tests performed by: Division of Pathology and Laboratory Medicine [address] [place] (ABNORMAL) Differential (02/27/2022 8:30 AM CDT)Only the most recent of3 results within the time period is included. athologist Signature Neutrophil % 74.2 (H) 42.0 - [facility] 66.0 % DI[facility] CENTER Lymphocyte % 15.7 (L) 24.0 - [facility] 44.0 % DI[facility] CENTER Monocyte % 6.9 2.0 - 7.0 [facility] % [facility] Eosinophil % 2.1 1.0 - 4.0 [facility] Basophil % 0.6 0.0 - 1.0 [facility] IGRE % 0.5 (H) 0.0 - 0.4 [facility] % [facility] Comment: IGRE % count includes Metamyelo cytes, Myelocytes, and Promyelocytes. Neutrophil Abs 7.17 1.70 - 7.30 K/uL [place] [facility] Lymphocyte Abs 1.52 1.00 - 4.80 K/uL [place] [facility] Monocyte Abs 0.67 0.08 - 0.70 K/uL [place] [facility] [place] Eosinophil Abs 0.20 0.04 - 0.40 K/uL [place] [facility] Basophil Abs 0.06 0.00 - 0.10 K/uL [place] [facility] IG Abs 0.05 (H) 0.00 - 0.04 K/uL [place] [facility] Specimen Anatomical Collection Method Collection Time Receive d Time (Source) Location / / Volume Laterality Blood 02/27/2022 8:30 AM 2 8:36 CDT AM CDT Sudeep Terrell MD LAB BLOOD ORDERABLES Performing Organization Address City/[facility] Phon e Number [facility] Unless otherwise noted, [address] all lab tests performed by: Division of Pathology and Laboratory Medicine [address] [place] [address] BUN (02/27/2022 8:30 AM CDT)Only the most recent of3 resultswithin the time period is included. athologist Signature BUN 22 6 - 23 [facility] mg/dL DI[facility]ENTER Specimen Anatomical Collection Method Collection Time Receive d Time (Source) Location / / Volume Laterality Blood 02/27/2022 8:30 AM 2 8:41 CDT AM CDT Sudeep Terrell MD LAB BLOOD ORDERABLES Performing Organization Address City/[facility] Phon e Number [facility] Unless otherwise noted, [address] all lab tests performed by: Division of Pathology and Laboratory Medicine [address] [place] [address] ALT (02/27/2022 8:30 AM CDT)Only the most recent of3 resultswithin the time period is included. athologist Signature ALT 13 <=33 U/L [facility] Specimen Anatomical Collection Method Collection Time Receive d Time (Source) Location / / Volume Laterality Blood 02/27/2022 8:30 AM 2 8:41 CDT AM CDT Sudeep Terrell MD LAB BLOOD ORDERABLES Performing Organization Address City/[facility] Phon e Number [facility] Unless otherwise noted, [address] all lab tests performed by: Division of Pathology and Laboratory Medicine [address] [place] [address] Aspartate Aminotransferase (02/27/2022 8:30 AM CDT)Only the most recent of3 resultswithin the time period is included. P athologist Signature AST 22 <=32 U/L [facility] Specimen Anatomical Collection Method Collection Time Receive d Time (Source) Location / / Volume Laterality Blood 02/27/2022 8:30 AM 2 8:41 CDT AM CDT Sudeep Terrell MD LAB BLOOD ORDERABLES Performing Organization Address City/[facility]/ZIP [facility] Phon e Number [facility] Unless otherwise noted, [address] all lab tests performed by: Division of Pathology and Laboratory Medicine [address] [place] [address] [place] TSH (02/27/2022 8:30 AM CDT)Only the most recent of3 resultswithin the time period is included. athologist Signature TSH 1.56 0.27 - 4.20 [facility] mcunit/mL DIAG[facility]STIC CENTER Specimen Anatomical Collection Method Collection Time Receive d Time (Source) Location / / Volume Laterality Blood 02/27/2022 8:30 AM 2 8:41 CDT AM CDT Sdueep Terrell MD LAB BLOOD ORDERABLES Performing Organization Address City/[facility] Phon e Number [facility] Unless otherwise noted, [address] all lab tests performed by: Division of Pathology and Laboratory Medicine [facility] [place] Free T4 (02/27/2022 8:30 AM CDT) athologist Signature T4 Free 1.10 0.93 - 1.70 [facility] ng/dL DI[facility]IC CENTER Specimen Anatomical Collection Method Collection Time Receive d Time (Source) Location / / Volume Laterality Blood 02/27/2022 8:30 AM 2 8:41 CDT AM CDT Sudeep Terrell MD LAB BLOOD ORDERABLES Performing Organization Address City/[facility] Phon e Number [facility] Unless otherwise noted, [address] all lab tests performed by: Division of Pathology and Laboratory Medicine [facility] Total Protein (02/27/2022 8:30 AM CDT)Only the most recent of3 resultswithin the time period is included. athologist Signature Total Protein 7.5 6.4 - 8.3 [facility] g/dL DI[facility] CENTER Specimen Anatomical Collection Method Collection Time Receive d Time (Source) Location / / Volume Laterality Blood 02/27/2022 8:30 AM 2 8:41 CDT AM CDT Sudeep Terrell MD LAB BLOOD ORDERABLES Performing Organization Address City/[facility]/ZIP Code Phon e Number [facility] Unless otherwise noted, [address] all lab tests performed by: Division of Pathology and Laboratory Medicine [address] [place] Phosphorus Level (02/27/2022 8:30 AM CDT) athologist [facility] Phosphorus 3.6 2.5 - 4.5 [facility] mg/dL DI[facility] CENTER Specimen Anatomical Collection Method Collection Time Receive d Time (Source) Location / / Volume Laterality Blood 02/27/2022 8:30 AM 2 8:41 CDT AM CDT Sudeep Terrell MD LAB BLOOD ORDERABLES Performing Organization Address City/[facility] Phon e Number [facility] Unless otherwise noted, [address] all lab tests performed by: Division of Pathology and Laboratory Medicine [address] [place] Alkaline Phosphatase (02/27/2022 8:30 AM CDT)Only the most recent of3 results within the time period is included. athologist Signature Alk Phos 91 35 - 104 [facility] U/L [facility] CENTER Specimen Anatomical Collection Method Collection Time Receive d Time (Source) Location / / Volume Laterality Blood 02/27/2022 8:30 AM 2 8:41 CDT AM CDT Sudeep Terrell MD LAB BLOOD ORDERABLES Performing Organization Address City/[facility]/ZIP [facility] Phon e Number [facility] Unless otherwise noted, [address] all lab tests performed by: Division of Pathology and Laboratory Medicine [address] [place] Magnesium Level (02/27/2022 8:30 AM CDT)Only the most recent of2 resultswithin the time period is included. athologist Signature Magnesium 2.4 1.6 - 2.6 [facility] mg/dL DI[facility]ENTER Specimen Anatomical Collection Method Collection Time Receive d Time (Source) Location / / Volume Laterality Blood 02/27/2022 8:30 AM 2 8:41 CDT AM CDT Sudeep Terrell MD LAB BLOOD ORDERABLES Performing Organization Address City/[facility]/ZIP Code Phon e Number [facility] Unless otherwise noted, [address] all lab tests performed by: Division of Pathology and Laboratory [facility] [address] [facility] [facility] (ABNORMAL) Glucose Level (02/27/2022 8:30 AM CDT)Only the most recent of3 resultswithin the time period is included. athologist [facility] Glucose Level 100 (H) 70 - 99 [facility] mg/dL [facility] Comment: Effective 01/12/16, the glucose reference intervals have been updated based on [place] [employer] guidelines (Standards of Medical Care in Diabetes 2016. Diabetes Care 2016; 39: S13-S22). Fasting blood glucose: Normal: 70-99 mg/dL Impaired fasting glucose (increased risk for diabetes or pre-diabetes): 100- 125 mg/dL Diabetes mellitus: >/=126 mg/dL Random blood glucose: Normal: 70-199 mg/dL Note: Random glucose >100 mg/dL is assoc iated with increased risk for diabetes Specimen Anatomical Collection Method Collection Time Receive d Time (Source) Location / / Volume Laterality Blood 02/27/2022 8:30 AM 2 8:41 CDT AM CDT Sudeep Terrell MD LAB BLOOD ORDERABLES Performing Organization Address City/[facility]/ZIP [facility] Phon e Number [facility] Unless otherwise noted, [address] all lab tests performed by: Division of Pathology and Laboratory Medicine [address] [place] (ABNORMAL) Calcium Level (02/27/2022 8:30 AM CDT)Only the most recent of3 resultswithin the time period is included. athologist Signature Calcium Lvl 10.9 (H) 8.4 - 10.2 [facility] mg/dL DIAGNOSTIC CENTER Specimen Anatomical Collection Method Collection Time Receive d Time (Source) Location / / Volume Laterality Blood 02/27/2022 8:30 AM 2 8:41 CDT AM CDT Sudeep Terrell MD LAB BLOOD ORDERABLES Performing Organization Address City/State/ZIP Code Phon e Number [facility] Unless otherwise noted, [place] [id number] all lab tests performed by: Division of Pathology and Laboratory Medicine [address] [place] Albumin Level (02/27/2022 8:30 AM CDT)Only the most recent of3 resultswithin the time period is included. P athologist Signature Albumin Lvl 4.6 3.5 - 5.2 [facility] gm/dL DIAGNOSTIC CENTER Specimen Anatomical Collection Method Collection Time Receive d Time (Source) Location / / Volume Laterality Blood 02/27/2022 8:30 AM 2 8:41 CDT AM CDT Sudeep Terrell MD LAB BLOOD ORDERABLES Performing Organization Address City/[facility]/ZIP Code Phon e Number [facility] Unless otherwise noted, [place] [phone] all lab tests performed by: Division of Pathology and Laboratory Medicine [address] [place] Electrolyte Panel (02/27/2022 8:30 AM CDT)Only the most recent of3 resultswithin the time period is included. P athologist Signature Sodium Lvl 140 136 - 145 [facility] mEq/L DIAGNOSTIC CENTER Potassium Lvl 4.5 3.5 - 5.1 [facility] mEq/L DIAGNOSTIC CENTER Chloride 105 98 - 107 [facility] mEq/L DI[facility]NOSTIC CENTER CO2 29 22 - 29 [facility] mEq/L DI[facility]NOSTIC CENTER Anion Gap 6 4 - 14 [facility] mEq/L DI[facility]STIC CENTER Specimen Anatomical Collection Method Collection Time Receive d Time (Source) Location / / Volume Laterality Blood 02/27/2022 8:30 AM 2 8:41 CDT AM CDT Sudeep Terrell MD LAB BLOOD ORDERABLES Performing Organization Address City/State/ZIP Code Phon e Number [facility] Unless otherwise noted, [address] all lab tests performed by: Division of Pathology and Laboratory Medicine [address] COVID-19 (SARS-CoV-2) PCR-Asymptomatic (02/11/2022 3:11 PM CDT)Only the most recent of2 resultswithin the time period is included. [facility] Method Time Signature COVID19 (SARS Not Detected Not Detected [facility] CoV-2) [facility] Comment: This test is a qualitative reverse-trans criptase polymerase chain reaction (RT- PCR) developed for the [employer] system and intended for qualitative detection of SARS CoV-2 RNA in nasopharyngeal a nd oropharyngeal swab specimens collecte d from any individuals, including those suspected o f COVID-19 by their healthcare provider, and those without symptoms or other reasons to suspect COVID-19. A fact sheet for patients provided by the medical director ( [employer]) can be rev iewed at: https://www.fda.gov/media/297506/downloa d. A fact sheet for Health Care providers is provided by the medical director ([employer]) and can be reviewed at: https://www.fda.gov/media/648757/download Results must be interpreted within the c ontext of all relevant clinical and laboratory findings and should not form the sole basis for a diagnosis or treatment decision. Positive results do not rule out bacterial infection or co- infection with other viruses. Negative results do not rule ou t SARS-CoV-2 and must be combined with clinical observations, patient history, and/or epidemiological information. "Presumptive Positive" results are due t o partial amplification of SARS-CoV-2 targets and indicates low amounts of virus present in the specimen at or near the limit of detection. Regardless, individuals with "Presumptive Positive" results should be managed per institutional guidelines as individuals positive for SARS-CoV-2 virus, including use of appropriate infection control protocols. Internal controls are included to assess for possible amplification inhibitors. If inhibition is detected, testing is repeated and if inhibition is confirmed the specimen is resulted as "Invalid". When an "Invalid" result occurs, it is recomm ended to wait 3 days before submitting a new spec imen for testing if clinically indicated. This assay has been approved by the FDA for use only under Emergency Use Authorization (EUA) in laboratories that have been CLIA-certified to perform moderate-complexity and high-complexity tests. The performance characteristics of this assay were verified by the Microbiology Laboratory at [facility], CLIA Accreditation #: [id number] and CAP Accreditation #: [id number]. COVID19 SARS Source [employer] [place] MD [facility] COVID19 SARS Indication Pre-Out of OR Procedure [facility] Specimen (Source) Anatomical Collection Method Collection Time Re ceived Time Location / / Volume Laterality Nasopharyngeal Swab 02/11/2022 3:11 02/11 PM CDT 5:23 PM CDT Sudeep Terrell MD MICROBIOLOGY - GENERAL ORDER FLOR Performing Organization Address City/State/ZIP Code Phon e Number [facility] Unless otherwise noted, [place], [place] [id number] [place] [address] all lab tests performed by: Division of Pathology and Laboratory Medicine [address] [place] [address] PETCT Subsequent Treatment Strategy (02/07/2022 3:05 PM CDT) Anatomical Region Laterality Modality Whole Body Positron Emission To mography (PET) Specimen (Source) Anatomical Collection Method Collection Time Re ceived Time Location / / Volume Laterality 02/07/2022 3:18 PM CDT Impressions 02/07/2022 3:49 PM CDT Stable left upper lobe 2.1 cm nodule compatible the primary lung cancer and shows increased metabolic activity relative to the previous study. A stable left upper lobe nodule in the l eft upper lobe, 6 mm in diameter and also shows increased metabolic activity and may be due to a metastatic focus or synchronous primary lung cancer. New band opacity in the right upper lobe probably due to atelectasis. New groundglass opacity in the right upper lobe may be inflammatory or infectious and follow-up can be performed. 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 Clarify subsequent treatment strategy. Indication: Adenocarcinoma the left uppe r lobe. Clarify subsequent treatment strategy. Comparison: 11/28/2021. Technique: F-18 fluorodeoxyglucose (FDG) 10.0 mCi was administered intravenously via right forearm vein. To allow for distribution and uptake of radiotracer, the patient was asked to rest quietly for approximately 60-90 minutes. PET/CT im aging was performed from the top of the skull through the thighs. CT scanning was done for attenuation correction, image registration, and diagnosis with scan par ameters optimized to minimize radiation exposure to the patient. SUV measurements are reported as maximum SUV based on body weight unless otherwise specified. Findings: Head and Neck: Mucosal thickening involv ing the anterior right maxillary sinus probably related to chronic sinusitis. The thyroid gland appears unremarkable. No enlarged nodes in the head and neck regio n showing increased FDG activity to sugg est wili metastatic disease. Chest: Central airways are patent. Lobulated 2.1 cm left upper lobe nodule abutting the pleural surface compatible with a primary lung cancer similar in size relative to the previous study, image 148 and shows increased metabolic activity, max SUV value of 17.8, previously 12.8. Nodular opacity in the posterior aspect left upper lobe similar in size relative to the previous study with increased metabolic activity, max SUV value 8.3, previously 6.9, most concerning for a metasta tic focus 6 mm in diameter though may be due to a separate primary lung cancer, image 177. Other stable nonspecific pulmonary nodul es up to 3 mm in diameter likely sequela of granulomatous disease or intraparenchymal lymph nodes and follow-up to exclude a neoplastic etiology can be performed including a 2 mm lesion along the left m ajor fissure image 182 and nodule in the periphery the right upper lung image 153, 3 mm in diameter. New groundglass opacity in the medial as pect the right upper lobe, image 163 5 mm in diameter may be inflammatory or infectious and follow-up can be performed. New band opacity in the right upper lobe probably due to atelectasis, image 147. No pleural effusions. Cardiac chambers are not enlarged. Mild coronary artery calcification. No enlarged mediastinal, hilar, or axillary nodes. Abdomen and Pelvis: Hypodense liver lesi ons likely represent cysts without increased metabolic activity, and measure up to 1.8 cm in diameter. The spleen is not enlarged. No focal pancreatic lesions. No adrenal gland nodularity. Renal activ ity is physiologic. Musculoskeletal: No sign of bony metasta tic disease. Procedure Note Glynn Turcios MD - 02/07/2022Formatt ing of this note might be different from the original. 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 Clarify subsequent treatment strategy. Indication: Adenocarcinoma the left uppe r lobe. Clarify subsequent treatment strategy. Comparison: 11/28/2021. Technique: F-18 fluorodeoxyglucose (FDG) 10.0 mCi was administered intravenously via right forearm vein. To allow for distribution and uptake of radiotracer, the patient was asked to rest quietly for approximately 60-90 minutes. PET/CT imag ing was performed from the top of the skull through the thighs. CT scanning was done for attenuation correction, image registration, and diagnosis with scan parameters optimized to minimize radiation exposure to the patient. SUV measurements are reported as maximum SUV based on body weight unless otherwise specified. Findings: Head and Neck: Mucosal thickening involv ing the anterior right maxillary sinus probably related to chronic sinusitis. The thyroid gland appears unremarkable. No enlarged nodes in the head and neck region showing increased FDG activity to suggest wili metastatic disease. Chest: Central airways are patent. Lobulated 2.1 cm left upper lobe nodule abutting the pleural surface compatible with a primary lung cancer similar in size relative to the previous study, image 148 and shows increased metabolic activity, max SUV value of 17.8, previously 12.8. Nodular opacity in the posterior aspect left upper lobe similar in size relative to the previous study with increased metabolic activity, max SUV value 8.3, previously 6.9, most concerning for a metastatic focus 6 mm in diameter though may be due to a separate primary lung cancer, image 177. Other stable nonspecific pulmonary nodul es up to 3 mm in diameter likely sequela of granulomatous disease or intraparenchymal lymph nodes and follow-up to exclude a neoplastic etiology can be performed including a 2 mm lesion along the left major fissure i mage 182 and nodule in the periphery the right upper lung image 153, 3 mm in diameter. New groundglass opacity in the medial as pect the right upper lobe, image 163 5 mm in diameter may be inflammatory or infectious and follow-up can be performed. New band opacity in the right upper lobe probably due to atelectasis, image 147. No pleural effusions. Cardiac chambers are not enlarged. Mild coronary artery calcification. No enlarged mediastinal, hilar, or axillary nodes. Abdomen and Pelvis: Hypodense liver lesi ons likely represent cysts without increased metabolic activity, and measure up to 1.8 cm in diameter. The spleen is not enlarged. No focal pancreatic lesions. No adrenal gland nodularity. Renal activ ity is physiologic. Musculoskeletal: No sign of bony metasta tic disease. IMPRESSION: Stable left upper lobe 2.1 cm nodule com patible the primary lung cancer and shows increased metabolic activity relative to the previous study. A stable left upper lobe nodule in the l eft upper lobe, 6 mm in diameter and also shows increased metabolic activity and may be due to a metastatic focus or synchronous primary lung cancer. New band opacity in the right upper lobe probably due to atelectasis. New groundglass opacity in the right upper lobe may be inflammatory or infectious and follow-up can be performed. Sudeep Terrell MD IMG PETCT ORDERABLES MRI Brain with and without Contrast (02/04/2022 10:41 AM CDT)Only the most recent of2 resultswithin the time period is included. Anatomical Region Laterality Modality Head Magnetic Resonance Specimen (Source) Anatomical Collection Method Collection Time Re ceived Time Location / / Volume Laterality 02/06/2022 8:45 AM CDT Impressions 02/06/2022 9:04 AM CDT No evidence of metastatic disease to the brain. Stable appearance of the nonocclusive th rombus of the RIGHT transverse sinus. Stable 6 mm enhancing nodule along the R IGHT anterior falx which remains most consistent with a meningioma. Narrative 02/06/2022 9:04 AM CDT FULL RESULT: Examination: MRI BRAIN W WO CONTRAST on 02/04/2022 10:41 AM Clinical History: Adenocarcinoma, NOS of upper lobe, lung <Left> Indication: Cancer pre-treatment assessm ent Comparison: MRI of the brain January 03. CT venogram of the head January 04, 2022. Technique: MRI of the brain with and wit hout contrast. Findings: There is no evidence of mass, intracrani al hemorrhage or recent infarction. There are scattered T2 white matter hype rintensities which are nonspecific and may represent microvascular ischemic changes. The sheath filling defect involving the RIGHT transverse sinus appears stable compared to prior examination. Contrast continues to opacify the vein surrounding the filling defect. A 6 mm pleural-based nodule along the RI GHT anterior falx is unchanged. The brain parenchyma is otherwise unrema rkable. There is no other abnormal enhancement. The ventricles, sulci and cisterns are w ithin normal limits and stable. The major flow voids of the skull base a re intact. The extracranial structures are unremark able. Procedure Note Angel Reid MD - 02/06/2022Formattin g of this note might be different from the original. FULL RESULT: Examination: MRI BRAIN W WO CONTRAST on 02/04/2022 10:41 AM Clinical History: Adenocarcinoma, NOS of upper lobe, lung <Left> Indication: Cancer pre-treatment assessm ent Comparison: MRI of the brain January 03. CT venogram of the head January 04, 2022. Technique: MRI of the brain with and wit hout contrast. Findings: There is no evidence of mass, intracrani al hemorrhage or recent infarction. There are scattered T2 white matter hype rintensities which are nonspecific and may represent microvascular ischemic changes. The sheath filling defect involving the RIGHT transverse sinus appears stable compared to prior examination. Contrast continues to opacify the vein surrounding the filling defect. A 6 mm pleural-based nodule along the RI GHT anterior falx is unchanged. The brain parenchyma is otherwise unrema rkable. There is no other abnormal enhancement. The ventricles, sulci and cisterns are w ithin normal limits and stable. The major flow voids of the skull base a re intact. The extracranial structures are unremark able. IMPRESSION: No evidence of metastatic disease to the brain. Stable appearance of the nonocclusive th rombus of the RIGHT transverse sinus. Stable 6 mm enhancing nodule along the R IGHT anterior falx which remains most consistent with a meningioma. Sudeep Terrell MD IMG MRI ORDERABLES (ABNORMAL) SPIROMETRY W/DILATORS, DLCO AND BODY PLETHSMOGRAPHIC LUNG VOLUMES (02/03/2022 2:30 PM CDT) Analysis Performed At Patho logist Time Signature FVC (L) post 2.208 1.634 - 02/03/2022 [place] 2.859 L 2:30 PM CDT FEV1 (L) post 1.286 1.144 - 02/03/2022 [place] 2.181 L 2:30 PM CDT FEV1/FVC (%) 58.241 (L) 64.440 - 02/03/2022 [place] post 84.028 % 2:30 PM CDT DLCO_SB 13.745 3.627 - 02/03/2022 [place] ml/(min*mmHg) 23.793 2:30 PM CDT ml/(min*mm Hg) DLCOc_SB 14.458 3.627 - 02/03/2022 [place] ml/(min*mmHg) 23.793 2:30 PM CDT ml/(min*mm Hg) TLC (L) 5.487 (H) 3.321 - 02/03/2022 [place] 5.295 L 2:30 PM CDT RV (L) 3.255 (H) 1.442 - 02/03/2022 [place] 2.593 L 2:30 PM CDT RV/TLC (%) 59.322 (H) 35.890 - 02/03/2022 [place] 55.070 % 2:30 PM CDT FVC (L) pre 2.232 1.634 - 02/03/2022 [place] 2.859 L 2:30 PM CDT FEV1 (L) pre 1.262 1.144 - 02/03/2022 [place] 2.181 L 2:30 PM CDT FEV1/FVC (%) 56.536 (L) 64.440 - 02/03/2022 [place] pre 84.028 % 2:30 PM CDT FVC (% pred) 99 % 02/03/2022 [place] pre 2:30 PM CDT FVC (% pred) 98 % 02/03/2022 [place] post 2:30 PM CDT FEV1 (%pred) 76 % 02/03/2022 [place] pre 2:30 PM CDT FEV1 (% pred) 77 % 02/03/2022 [place] post 2:30 PM CDT FEV1/FVC (% 76 % 02/03/2022 [place] pred) pre 2:30 PM CDT FEV1/FVC (% 78 % 02/03/2022 [place] pred) post 2:30 PM CDT TLC (% pred) 127 % 02/03/2022 [place] 2:30 PM CDT RV (% pred) 161 % 02/03/2022 [place] 2:30 PM CDT RV/TLC (% 130 % 02/03/2022 [place] pred) 2:30 PM CDT DLCO_SB (% 100 % 02/03/2022 [place] pred) 2:30 PM CDT DLCOc_SB (% 105 % 02/03/2022 [place] pred) 2:30 PM CDT Specimen (Source) Anatomical Collection Method Collection Time Re ceived Time Location / / Volume Laterality 02/03/2022 1:45 PM CDT Narrative This result has an attachment that is no t available. Sudeep Terrell MD PFT ORDERABLES Performing Organization Address City/State/ZIP Code Phon e Number [facility] Hepatitis C Virus Antibody (02/03/2022 1:10 PM CDT)Only the most recent of2 resultswithin the time period is included. Patholo gist Method Time Signature HCVAb. Non Reactive Non Reactive [facility] Comment: Antibody detection in the immunocompromi sed and immunosuppressed population may be delayed or absent entirely. Therefore serial testing, correlation with other clinical findings, and supplemental testin g (if available) should be taken into co nsideration when interpreting the results. Specimen Anatomical Collection Method Collection Time Receive d Time (Source) Location / / Volume Laterality Blood 02/03/2022 1:10 PM 1:44 CDT PM CDT Sudeep Terrell MD LAB BLOOD ORDERABLES Performing Organization Address City/State/ZIP Code Phon e Number [facility] Unless otherwise noted, [place] [address] CENTER all lab tests performed by: Division of Pathology and Laboratory Medicine [address] (ABNORMAL) Urinalysis with Microscopic (02/03/2022 1:10 PM CDT) P athologist Signature UA WBC 8 (H) 0 - 2 /HPF [facility] UA RBC 1 0 - 2 /HPF [facility] UA Mucous NOT SEEN Not [facility] Seen-Trace CANCER CENTER /HPF UA Bacteria NOT SEEN NOT SEEN [facility] UA Squam Epi OCC None-Occas [facility] ional /[facility] Specimen Anatomical Collection Method Collection Time Receive d Time (Source) Location / / Volume Laterality Urine 02/03/2022 1:10 PM 2 2:02 CDT PM CDT Narrative [facility] - 2 2:16 PM CDT Some reporting parameters within the Urinalysis test have changed due to the implementation of new in strumentation in the [facility], allowi ng greater sensitivity of measurement. Urinalysis results reported by the [facility] using existing instrumentation, as well as Urinalysis t esting performed manually or by backup methodology at the [facility] will remain relatively unchanged. New reporting parameters and units will now be reported for all campuses. Sudepe Terrell MD URINE ORDERABLES Performing Organization Address City/[facility]/ZIP Code Phon e Number [facility] Unless otherwise noted, [address] all lab tests performed by: Division of Pathology and Laboratory Medicine [facility] [employer] [place] (ABNORMAL) aPTT (02/03/2022 1:10 PM CDT)Only the most recent of2 resultswithin the time period is included. P athologist Signature aPTT 36.6 (H) 22.8 - 34.2 [facility](s) [facility] Specimen Anatomical Collection Method Collection Time Receive d Time (Source) Location / / Volume Laterality Blood 02/03/2022 1:10 PM 2 1:22 CDT PM CDT Narrative [facility] - 2 2:00 PM CDT This lab cannot be scheduled at the [facility] locations due to collection/proccessing restrictions: [facility] and [facility]. Sudeep Terrell MD LAB BLOOD ORDERABLES Performing Organization Address City/State/ZIP Code Phon e Number [facility] Unless otherwise noted, [address] all lab tests performed by: Division of Pathology and Laboratory Medicine [facility] [employer] [address] Hepatitis B Surface Ag (02/03/2022 1:10 PM CDT)Only the most recent of2 results within the time period is included. [facility] HBsAg. Non Reactive Non Reactive [facility] Specimen Anatomical Collection Method Collection Time Receive d Time (Source) Location / / Volume Laterality Blood 02/03/2022 1:10 PM 2 1:44 CDT PM CDT Sudeep Terrell MD LAB BLOOD ORDERABLES Performing Organization Address City/[facility]/ZIP Code Phon e Number [facility] Unless otherwise noted, [address] all lab tests performed by: Division of Pathology and Laboratory Medicine [address] (ABNORMAL) Urinalysis w/Microscopic if Indicated (02/03/2022 1:10 PM CDT) [facility] UA Color Straw Straw-Yel [facility] UA Appear Hazy (A) Clear [facility] UA Glucose NEG NEG mg/dL [facility] UA Bili NEG NEG [facility] UA Ketones NEG NEG mg/dL [facility] UA Spec Grav 1.015 1.003 - [facility] 1.035 [facility] UA Blood NEG NEG [facility] UA pH 6.0 5.0 - 9.0 [facility] UA Protein NEG NEG mg/dL [facility] UA Urobilinogen NEG NEG [facility] UA Nitrite NEG NEG [facility] UA Leuk Est Moderate (A) NEG [facility] Specimen Anatomical Collection Method Collection Time Receive d Time (Source) Location / / Volume Laterality Urine 02/03/2022 1:10 PM 2 2:02 CDT PM CDT Sudeep Terrell MD URINE ORDERABLES Performing Organization Address City/[facility]/ZIP Code Phon e Number [facility] Unless otherwise noted, [address] all lab tests performed by: Division of Pathology and Laboratory Medicine [address] [employer] (ABNORMAL) Prothrombin Time (02/03/2022 1:10 PM CDT)Only the most recent of2 resultswithin the time period is included. athologist Signature PT 15.7 (H) 11.9 - 14.1 [facility](s) CANCER CENTER INR 1.26 (H) 0.89 - 1.10 [facility] Specimen Anatomical Collection Method Collection Time Receive d Time (Source) Location / / Volume Laterality Blood 02/03/2022 1:10 PM 2 1:22 CDT PM CDT Narrative [facility] - 2 2:00 PM CDT This lab cannot be scheduled at the [facility] locations due to collection/proccessing restrictions: [facility] and [facility] DI[facility]. Sudeep Terrell MD LAB BLOOD ORDERABLES Performing Organization Address City/State/ZIP Code Phon e Number [facility] Unless otherwise noted, [address] all lab tests performed by: Division of Pathology and Laboratory Medicine [facility] (02/03/2022 1:10 PM CDT) athologist Signature Lipase Lvl 56 13 - 60 U/L [facility] Specimen Anatomical Collection Method Collection Time Receive d Time (Source) Location / / Volume Laterality Blood 02/03/2022 1:10 PM 2 1:45 CDT PM CDT Sudeep Terrell MD LAB BLOOD ORDERABLES Performing Organization Address City/State/ZIP Code Phon e Number [facility] Unless otherwise noted, [address] all lab tests performed by: Division of Pathology and Laboratory Medicine [address] [place] LDH (02/03/2022 1:10 PM CDT) P athologist Signature LDH 190 135 - 214 [facility] U/L [facility] Comment: Results greater than 1651 U/L m ay not be reliable due to matrix effect with extended dilution as it exceeds the manu facturer's recommended limit. Caution should be exercised when interpreting such valu es and done in conjunction with clinical context. Specimen Anatomical Collection Method Collection Time Receive d Time (Source) Location / / Volume Laterality Blood 02/03/2022 1:10 PM 2 1:45 CDT PM CDT Sudeep Terrell MD LAB BLOOD ORDERABLES Performing Organization Address City/State/ZIP Code Phon e Number [facility] CANCER Unless otherwise noted, [address] all lab tests performed by: Division of Pathology and Laboratory Medicine [facility] (02/03/2022 1:10 PM CDT) athologist Signature GGT 19 5 - 36 U/L [facility] Specimen Anatomical Collection Method Collection Time Receive d Time (Source) Location / / Volume Laterality Blood 02/03/2022 1:10 PM 2 1:45 CDT PM CDT Sudeep Terrell MD LAB BLOOD ORDERABLES Performing Organization Address City/[facility] Phon e Number [facility] Unless otherwise noted, [address] all lab tests performed by: Division of Pathology and Laboratory Medicine [address] [place] [address] Cortisol, Total (02/03/2022 1:10 PM CDT) athologist [facility] Cortisol 8.11 4.80 - [facility] 19.50 [facility]ENTER mcg/dL Comment: Cortisol reference intervals are establi shed for the morning hours from 6-10 am and afternoon hours 4-8 pm. Due to circadian rhythm of cortisol levels in serum and plasma, the sample collection time must be noted. Caution should be exercised when interpreting such values and done in con junction with clinical context. Serum Cortisol Reference Ranges: Morning (6-10am) (4.8 - 19.5) Afternoon (4-8pm) (2.5 - 11.9) Specimen Anatomical Collection Method Collection Time Receive d Time (Source) Location / / Volume Laterality Blood 02/03/2022 1:10 PM 2 1:45 CDT PM CDT Sudeep Terrell MD LAB BLOOD ORDERABLES Performing Organization Address City/[facility] Phon e Number [facility] Unless otherwise noted, [address] all lab tests performed by: Division of Pathology and Laboratory Medicine [address] [place], [place] [id number] (ABNORMAL) Amylase Level (02/03/2022 1:10 PM CDT) athologist Signature Amylase Lvl 102 (H) 28 - 100 [facility] U/L [facility] Specimen Anatomical Collection Method Collection Time Receive d Time (Source) Location / / Volume Laterality Blood 02/03/2022 1:10 PM 2 1:45 CDT PM CDT Sudeep Terrell MD LAB BLOOD ORDERABLES Performing Organization Address City/[facility]/ZIP Code Phon e Number [facility] Unless otherwise noted, [place] [address] CENTER all lab tests performed by: Division of Pathology and Laboratory Medicine [address] [place] EKG, 12-Lead (Scheduled) (02/03/2022)Only the most recent of2 resultswithin the time period is included. Specimen (Source) Anatomical Location Collection Method / Collectio n Time Received Time / Laterality Volume Narrative This result has an attachment that is no t available. Sudeep Terrell MD ECG ORDERABLES Performing Organization Address [facility]/ZIP Code Phon e Number [facility] Tissue Slides Material Request (01/29/2022 12:43 PM CDT) Specimen Anatomical Collection Method Collection Time Receive d Time (Source) Location / / Volume Laterality Tissue 01/29/2022 12:43 01/29/2022 PM CDT 12:43 PM CDT Sofy INMAN MDA IP AP BIOMARKERS Performing Organization Address [facility] Ph[place] [address] [address] [place] FISH ROS1 Material Request (01/22/2022 6:11 PM CDT) Specimen Anatomical Collection Method Collection Time Receive d Time (Source) Location / / Volume Laterality Tissue 01/22/2022 6:11 PM 2 6:11 CDT PM CDT Sudeep Terrell MD MDA IP AP BIOMARKERS Performing Organization Address City/[facility]/ZIP Code [place] [address] [address] [place] FISH ALK translocation Material Request (01/22/2022 6:11 PM CDT) Specimen Anatomical Collection Method Collection Time Receive d Time (Source) Location / / Volume Laterality Tissue 01/22/2022 6:11 PM 2 6:11 CDT PM CDT Sudeep Terrell MD, MDA IP AP BIOMARKERS Performing Organization Address City/State/ZIP Code Phon e Number [facility] AP LAB[facility] [place] [address] Venogram Brain (01/04/2022 2:03 PM CDT) Anatomical Region Laterality Modality Vascular, Head Computed Tomography Specimen (Source) Anatomical Collection Method Collection Time Re ceived Time Location / / Volume Laterality 01/04/2022 5:17 PM CDT Impressions 01/04/2022 5:25 PM CDT Nonocclusive filling defect in the right transverse sinus, consistent with intraluminal thrombus. Narrative 01/04/2022 5:25 PM CDT FULL RESULT: EXAMINATION: CT VENOGRAM BRAIN on 022 2:03 PM COMPARISON: Brain MRI dated 01/03/2022 HISTORY: Cerebral venous sinus thrombosi s Screening INDICATION: MRI Brain saw suspicion for dural venous sinus thrombosis, patient is asymptomatic TECHNIQUE: Axial postcontrast CT images are acquired through the brain utilizing CT venogram technique. Multiplanar reformatted views were produced. FINDINGS: The superior sagittal sinus is patent to the torcula. Internal cerebral veins and the basal veins of Stephanie joining to form the vein of Jeremy. This communicates directly with the straight sinus which terminates in the torcula. There is a nonocclusive filling defect i n the right transverse sinus, suspicious for intraluminal thrombus. There is widely patent flow into the sigmoid sinus and jugular vein on this side. The left tra nsverse sinus and jugular bulb appears t o be normal. Procedure Note Kartik Gant MD - 01/04/2022Forma tting of this note might be different from the original. FULL RESULT: EXAMINATION: CT VENOGRAM BRAIN on 022 2:03 PM COMPARISON: Brain MRI dated 01/03/2022 HISTORY: Cerebral venous sinus thrombosi s Screening INDICATION: MRI Brain saw suspicion for dural venous sinus thrombosis, patient is asymptomatic TECHNIQUE: Axial postcontrast CT images are acquired through the brain utilizing CT venogram technique. Multiplanar reformatted views were produced. FINDINGS: The superior sagittal sinus is patent to the torcula. Internal cerebral veins and the basal veins of Stephanie joining to form the vein of Jeremy. This communicates directly with the straight sinus which terminates in the torcula. There is a nonocclusive filling defect i n the right transverse sinus, suspicious for intraluminal thrombus. There is widely patent flow into the sigmoid sinus and jugular vein on this side. The left transverse sinus and jugular bulb appears to be normal. IMPRESSION: Nonocclusive filling defect in the right transverse sinus, consistent with intraluminal thrombus. Sofy INMAN IMG CT ORDERABLES LARS [place] MDA LOR: Mutation Analysis Precision Panel Report (01/03/2022 10:20 AM CDT) Specimen (Source) Anatomical Collection Method Collection Time Re ceived Time Location / / Volume Laterality 01/03/2022 10:20 AM CDT Narrative This result has an attachment that is no t available. Sofy SOUSA [facility]STICS ([place]) Solid Tumor Genomic Assay Fusions 2018 Interpretation and Report (01/03/2022 10:20 AM CDT) Specimen (Source) Anatomical Collection Method Collection Time Re ceived Time Location / / Volume Laterality 01/03/2022 10:20 AM CDT Narrative This result has an attachment that is no t available. Sofy [facility] ([place]) LB Liquid Biopsy Panel V1 Interpretation and Report (12/27/2021 12:21 PM CDT) Specimen (Source) Anatomical Collection Method Collection Time Re ceived Time Location / / Volume Laterality 12/27/2021 12:21 PM CDT Narrative This result has an attachment that is no t available. Sofy [facility] ([place]) LB EML4/ALK Fusion Analysis Collection, Blood (12/27/2021 12:21 PM CDT) P athologist Signature Molecular Yes [facility] Diagnostics [facility] (Received) Specimen Anatomical Collection Method Collection Time Receive d Time (Source) Location / / Volume Laterality Blood 12/27/2021 12:21 12/27/2021 3:03 PM CDT PM CDT Sofy SOUSA MD BLOOD COLLECTIONS Performing Organization Address City/State/ZIP Code Phon e Number [facility]CER Unless otherwise noted, [place] [address] CENTER all lab tests performed by: Division of Pathology and Laboratory Medicine [address] [place] LB ROS1 Fusion Analysis Collection, Blood (12/27/2021 12:21 PM CDT) athologist Signature Molecular Yes [facility] (Received) Specimen Anatomical Collection Method Collection Time Receive d Time (Source) Location / / Volume Laterality Blood 12/27/2021 12:21 12/27/2021 3:03 PM CDT PM CDT Sofy INMAN MDA HP MD BLOOD COLLECTIONS Performing Organization Address City/[facility]/ZIP Code Phon e Number [facility]CER Unless otherwise noted, [address] all lab tests performed by: Division of Pathology and Laboratory Medicine [address] [place] [address] [place] LB RET Fusion Analysis Collection, Blood (12/27/2021 12:21 PM CDT) athologist Signature Molecular Yes [facility] (Received) Specimen Anatomical Collection Method Collection Time Receive d Time (Source) Location / / Volume Laterality Blood 12/27/2021 12:21 12/27/2021 3:03 PM CDT PM CDT Sofy INMAN MDA HP MD BLOOD COLLECTIONS Performing Organization Address City/[facility]/ZIP Code Phon e Number [facility] CAN[facility]ER Unless otherwise noted, [address] all lab tests performed by: Division of Pathology and Laboratory Medicine [address] [place] [address] [place] MET Mutation Analysis Collection, Blood (12/27/2021 12:21 PM CDT) athologist Signature Molecular Yes [facility] (Received) Specimen Anatomical Collection Method Collection Time Receive d Time (Source) Location / / Volume Laterality Blood 12/27/2021 12:21 12/27/2021 3:03 PM CDT PM CDT Sofy INMAN MDA HP MD BLOOD COLLECTIONS Performing Organization Address City/[facility]/ZIP Code Phon e Number [facility] Unless otherwise noted, [address] all lab tests performed by: Division of Pathology and Laboratory Medicine [address] [place] [address] [place] LB ERBB2 Full Gene Mutation Analysis Collection, Blood (12/27/2021 12:21 PM CDT) athologist Signature Molecular Yes [facility] (Received) Specimen Anatomical Collection Method Collection Time Receive d Time (Source) Location / / Volume Laterality Blood 12/27/2021 12:21 12/27/2021 3:03 PM CDT PM CDT Sofy INMAN MDA HP MD BLOOD COLLECTIONS Performing Organization Address City/[facility]/ZIP Code Phon e Number [facility] Unless otherwise noted, [address] all lab tests performed by: Division of Pathology and Laboratory Medicine Nicole DUTTA BRAF Mutation Analysis Collection, Blood (12/27/2021 12:21 PM CDT) P athologist Signature Molecular Yes [facility] (Received) Specimen Anatomical Collection Method Collection Time Receive d Time (Source) Location / / Volume Laterality Blood 12/27/2021 12:21 12/27/2021 3:03 PM CDT PM CDT Sofy INMAN MDA HP MD BLOOD COLLECTIONS Performing Organization Address City/[facility]/ZIP Code Phon e Number [facility] Unless otherwise noted, [address] all lab tests performed by: Division of Pathology and Laboratory Medicine Nicole Bautista MD NGS Blood Control (12/27/2021 12:21 PM CDT) P athologist Signature Molecular Yes [facility] (Received) Specimen Anatomical Collection Method Collection Time Receive d Time (Source) Location / / Volume Laterality Blood 12/27/2021 12:21 12/27/2021 3:08 PM CDT PM CDT Sofy INMAN MDA IP HP MOLECULAR DIAG IF ORDERABLES Performing Organization Address City/[facility]/ZIP Code Phon e Number [facility] Unless otherwise noted, [address] all lab tests performed by: Division of Pathology and Laboratory Medicine Nicole Bautista MD EML4/ALK Fusion Analysis Material Request (12/27/2021 11:44 AM CDT) Patholo gist Method Time Signature Archived Previously 12/30/2021 [facility] Material diagnosed 4:49 PM CDT tissues from [id number] were selected for molecular analysis. Results will be reported separately. Specimen Anatomical Collection Method Collection Time Receive d Time (Source) Location / / Volume Laterality Tissue 12/27/2021 11:44 12/27/2021 AM CDT 11:44 AM CDT Sofy INMAN MDA IP AP BIOMARKERS Performing Organization Address [facility]/ZIP Code [place] [address] [address] MD ROS1 Fusion Analysis Material Request (12/27/2021 11:44 AM CDT) [facility] Signature Archived Previously 12/30/2021 [facility] Material diagnosed 4:49 PM CDT tissues from [place] [id number] were selected for molecular analysis. Results will be reported separately. Specimen Anatomical Collection Method Collection Time Receive d Time (Source) Location / / Volume Laterality Tissue 12/27/2021 11:44 12/27/2021 AM CDT 11:44 AM CDT Sofy INMAN MDA IP AP BIOMARKERS Performing Organization Address [facility] Code [place] [address] [address] MD RET Fusion Analysis Material Request (12/27/2021 11:44 AM CDT) [facility] gist Method Time Signature Archived Previously 12/30/2021 [facility] Material diagnosed 4:49 PM CDT tissues from [place] [address] were selected for molecular analysis. Results will be reported separately. Specimen Anatomical Collection Method Collection Time Receive d Time (Source) Location / / Volume Laterality Tissue 12/27/2021 11:44 12/27/2021 AM CDT 11:44 AM CDT Sofy INMAN MDA IP AP BIOMARKERS Performing Organization Address City/[facility] Code [place] [address] [address] MD NTRK3 Fusion Analysis Material Request (12/27/2021 11:44 AM CDT) [facility] gist Method Time Signature Archived Previously 12/30/2021 [facility] Material diagnosed 4:49 PM CDT tissues from [place] [address] were selected for molecular analysis. Results will be reported separately. Specimen Anatomical Collection Method Collection Time Receive d Time (Source) Location / / Volume Laterality Tissue 12/27/2021 11:44 12/27/2021 AM CDT 11:44 AM CDT Sofy Ambrose PA MDA IP AP BIOMARKERS Performing Organization Address City/[facility]/ZIP Code [place] [address] [address] MD NTRK2 Fusion Analysis Material Request (12/27/2021 11:44 AM CDT) [facility] gist Method Time Signature Archived Previously 12/30/2021 [facility] Material diagnosed 4:49 PM CDT tissues from [place] [address] were selected for molecular analysis. Results will be reported separately. Specimen Anatomical Collection Method Collection Time Receive d Time (Source) Location / / Volume Laterality Tissue 12/27/2021 11:44 12/27/2021 AM CDT 11:44 AM CDT Sofy Ambrose PA MDA IP AP BIOMARKERS Performing Organization Address [facility] Code Phon [place] [address] [address] MD NTRK1 Fusion Analysis Material Request (12/27/2021 11:44 AM CDT) [facility] gist Method Time Signature Archived Previously 12/30/2021 [facility] Material diagnosed 4:49 PM CDT tissues from [place] [address] were selected for molecular analysis. Results will be reported separately. Specimen Anatomical Collection Method Collection Time Receive d Time (Source) Location / / Volume Laterality Tissue 12/27/2021 11:44 12/27/2021 AM CDT 11:44 AM CDT Sofy Ambrose PA MDA IP AP BIOMARKERS Performing Organization Address City/[facility] Code [place] [address] [address] MD KRAS Mutation Material Request (12/27/2021 11:44 AM CDT) [facility] gist Method Time Signature Archived Previously 12/30/2021 [facility] Material diagnosed 4:49 PM CDT tissues from [id number] were selected for molecular analysis. Results will be reported separately. Specimen Anatomical Collection Method Collection Time Receive d Time (Source) Location / / Volume Laterality Tissue 12/27/2021 11:44 12/27/2021 AM CDT 11:44 AM CDT Sofy Ambrose PA MDA IP AP BIOMARKERS Performing Organization Address City/[facility]/ZIP Code [place] [address] Nicole Bautista MD EGFR Mutation Material Request (12/27/2021 11:44 AM CDT) [facility] gist Method Time Signature Archived Previously 12/30/2021 [facility] Material diagnosed 4:49 PM CDT tissues from [id number] were selected for molecular analysis. Results will be reported separately. Specimen Anatomical Collection Method Collection Time Receive d Time (Source) Location / / Volume Laterality Tissue 12/27/2021 11:44 12/27/2021 AM CDT 11:44 AM CDT Sofy Ambrose PA MDA IP AP BIOMARKERS Performing Organization Address [facility] Code [place] [address] Nicole Bautista MD BRAF V600 E Mutation Material Request (12/27/2021 11:44 AM CDT) [facility] gist Method Time Signature Archived Previously 12/30/2021 [facility] Material diagnosed 4:49 PM CDT tissues from [id number] were selected for molecular analysis. Results will be reported separately. Specimen Anatomical Collection Method Collection Time Receive d Time (Source) Location / / Volume Laterality Tissue 12/27/2021 11:44 12/27/2021 AM CDT 11:44 AM CDT Sofy Ambrose PA MDA IP AP BIOMARKERS Performing Organization Address City/[facility]/ZIP Code [place] [address] [address] IHC PD-L1 Material Request (12/27/2021 11:44 AM CDT) Specimen Anatomical Collection Method Collection Time Receive d Time (Source) Location / / Volume Laterality Tissue 12/27/2021 11:44 12/27/2021 AM CDT 11:44 AM CDT Sofy Ambrose PA MDA IP AP BIOMARKERS Performing Organization Address City/[facility]/ZIP Code [place] [address] [address] [place] Cytology Image-Guided FNA Interpretation (12/21/2021 1:05 PM CDT) Component Value Ref Test Analysis Performed Pathologis t Range Method Time At Signature Gross A: 12/22/2021 [facility] Description Specimens procured: 4:47 PM 3 Diff Quik; 3 Pap Stain Slides CDT 5 ml, slightly cloudy bloody fluid in RPMI 1 Cell Block Date/Time Placed in Formalin: 12/21/21 @ 3:40 PM Size: 7.3 mm Specimen adequacy was performed by LANNY Madrigal(ASCP). Immediate Adequate 12/22/2021 [facility] AP LABS Assessment cellularity 4:47 PM CDT Major [facility]/benign 12/22/2021 [facility] AP LABS Elect ronically Classification 4:47 PM faith d by CDT Keaton hernadez MD on 2021 at 4:47 PM Diagnosis A. Lymph node(s), right, sup erior interlobar, 11Rs, fine needle aspiration: 12/22/2021 [facility] Electronically 4:47 PM signed by No metastatic carcinoma identified CDT Keaton Cuevas Polymorphous lymphoid cell population consistent with lymph node sampling on 12/22/2021 at 4:47 PM Comment The cell block 12/22/2021 [facility] preparation was 4:47 PM contributory CDT toward making the above diagnosis. Retained/Biomark SR: 6 S, 2 CB 12/22/2021 [facility] AP L ABS er Testing 4:47 PM CDT Informational Some tests 12/22/2021 [facility] Points reported here may 4:47 PM have been CDT developed and performance characteristics determined by [facility] Pathology and Laboratory Medicine. These tests have not been specifically cleared or approved by the U.S. Food and Drug Administration. Specimen Anatomical Collection Method Collection Time Receive d Time (Source) Location / / Volume Laterality Fine Needle Asp 12/21/2021 1:05 PM 2021 2:39 (Lymph Node(s), CDT PM CDT Right, Superior Interlobar, 11Rs) Kaylie Mota MD LAB CYTOLOGY ORDERABLES Performing Organization Address City/State/ZIP Code Phon e Number [facility] AP LABS [facility] [place] [address] [address] MD COVID-19 (UTE-CoV-2) PCR Asymptomatic (12/20/2021 1:44 PM CDT) Component Value Ref Range Test Analysis Performed Pathologis t Method Time At Signature COVID19 SARS Pre-Out of OR UT Indication Procedure [facility] COVID19 SARS Not Detected Not UT Result Detected [facility] COVID19 SARS SARS-CoV-2 NOT Detected. UT MD Interpretation [place] Reference Range: Not Detected [facility] Methodology: The Haney Real Time SARS-CoV-2 assay is a qualitative real-time reverse scorer single polymerase chain reaction (shovel mechanic-PCR) test to detect RNA from SARS-CoV-2 in nasal, nasopharyngeal and oropharyngeal swabs from patients with signs and symptoms of infection who ar e suspected of COVID-19 by their health care provider. The Haney RealTime SARS-CoV-2 performed on the [id number] System is a dual target assay with primers and probes for the RdRp and N genes. Results must be interpreted within the context of all relevant clinical and laboratory findings, and epidemiological risk factors. Positive results are indicative of the presence of SARS-CoV-2 RNA; clinical correlation with patient history and other diagnostic information is ne cessary to determine patient infection status. Positive results do not rule out bacterial infection or co-infection with other viruses. Negative results do not preclude SARS- CoV-2 infection and should not be used as the sole basis for patient management decisions. The Haney RealTime SARS-CoV -2 assay is for in vitro diagnostic use under FDA Emergency Use Authorization only. Testing is limited to laboratories certified under the Clinical Laboratory Improvement Jelly ndments of 1988 (CLIA), 42U.S.C. 263a, to perform high complexity tests. The T est was performed by the CLIA-certified, high- complexity Molecular Diagnostics Laboratory (MDL) at [facility] under the Food and Drug Administration (FDA) s Emergency Use Authorization. Factsheet for patients: https://www.[facility].org/AbbottFac tSheetPatients Factsheet for healthcare pro viders: https://www.[facility].org/AbbottFactSheetHCP Test performed by: [facility] Molecular [facility] [address] [place] [address] Specimen (Source) Anatomical Collection Method Collection Time Re ceived Time Location / / Volume Laterality Nasopharyngeal Swab 12/20/2021 1:44 12/20 PM CDT 2:55 PM CDT Tammy Giraldo F[employer]DER MICROBIOLOGY - GENERAL ORDER FLOR Performing Organization Address City/State/ZIP Code Phon e Number [facility] CANCER Unless otherwise noted, [place] [address] CENTER all lab tests performed by: Division of Pathology and Laboratory Medicine [address] [facility] X-ray Chest 2 Views (12/09/2021 11:37 AM CDT) Anatomical Region Laterality Modality Chest Digital Radiography Specimen (Source) Anatomical Collection Method Collection Time Re ceived Time Location / / Volume Laterality 12/09/2021 11:39 AM CDT Impressions 12/09/2021 11:53 AM CDT FINDINGS and IMPRESSION: 1. Cardiomediastinal silhouette stable . 2. Nodule left apex again noted. Trace left apical pneumothorax which was not distinctly seen on post procedure radiograph. 3. Right lung clear. 4. No suspicious osseous findings. 5. Results relayed to attending physic alysha 1140 on 12/09/2021. Result confirmed 1146. Narrative 12/09/2021 11:53 AM CDT FULL RESULT: Examination: XR CHEST 2 VW, 12/09/2021 11 :37 AM Clinical History: Adenocarcinoma of left lung Indication: Chest pain Comparison: 12/02/2021 radiograph, 11/17/[address] Technique: Posteroanterior, lateral and dual-energy radiographs of the chest. Procedure Note Angel Villagomez MD - 12/09/2021 FULL RESULT: Examination: XR CHEST 2 VW, 12/09/2021 11 :37 AM Clinical History: Adenocarcinoma of left lung Indication: Chest pain Comparison: 12/02/2021 radiograph, 11/17/[address] Technique: Posteroanterior, lateral and dual-energy radiographs of the chest. IMPRESSION: FINDINGS and IMPRESSION: 1. Cardiomediastinal silhouette stable. 2. Nodule left apex again noted. Trace l eft apical pneumothorax which was not distinctly seen on post procedure radiograph. 3. Right lung clear. 4. No suspicious osseous findings. 5. Results relayed to attending physicia n 1140 on 12/09/2021. Result confirmed 1146. Zhang Abernathy MD IMG DIAGNOSTIC IMAGING ORDER [facility]LRO IR CHEST XRAY 1 VIEW (12/02/2021 2:53 PM CDT)Only the most recent of2 results within the time period is included. Anatomical Region Laterality Modality Chest Digital Radiography Specimen (Source) Anatomical Location Collection Method / Collectio n Time Received Time / Laterality Volume Narrative 12/02/2021 3:07 PM CDT Date of Procedure: 12/02/21 Attending Physician: Jason De Jesus MD Shield Operator: None Pre Procedure Diagnosis: Multiple nodu les of lung; Lung mass Post Procedure Diagnosis: Unchanged Indication: New mass / nodule for tiss ue diagnosis Protocol Number: N/A Title of Procedure: Percutaneous CT-Guided Biopsy Operative Findings: 1. Percutaneous image-guided biopsy of 1 .5 cm left upper lobe lung lesion. 2. The follow-up chest x-rays show no ev idence of pneumothorax Consent: The procedure, risks, indicat ions and alternatives were explained. All questions were answered a nd informed consent was obtained. I have reviewed the history and physical dictated by the mid-level practitioner/fellow. Sedation/Anesthesia: Moderate sedation for pain control and a nxiety was administered by a dedicated nurse under my supervision. There was continuous monitoring of oxygen saturation, heart rate and interm ittent monitoring of blood pressure during the procedure. Medicat ion given was midazolam and fentanyl. I was present for the admin istration of the medications indicated above. Procedure Events Event Event Time Sedation Start 12/02/2021 11:15 AM Sedation End 12/02/2021 11:35 AM Procedure in Detail: A time out was performed prior to the st art of the procedure and the correct patient, procedure, presence of consent, site, and side were confirmed with all members of the team. With the patient in the prone position, the skin overlying the area of interest was prepped and draped in the u sual sterile fashion. Lidocaine 1% was used for local anesthesia. Using a posterior approach under CT imag e-guidance, a 19 gauge needle was advanced down to the lesion in the left lung. An image was obtained and placed into the medical record. Samples were obtained for evaluation. Sampling: Core Biopsy: A 20 gauge needle used to obtain samples for surgical pathology evaluation. Total number of samples: 3 Biosentry: A Biosentry device was depl oyed at the conclusion of the procedure. Post-biopsy radiographs: 1. The initial follow-up chest radiograp h demonstrates: No pneumothorax. 2. A subsequent follow-up chest radiogra ph was obtained 3 hours after the initial and demonstrates: No pneumotho rax. Specimens Disposition: Diagnostic Biopsy: The biopsy sampl es were submitted to pathology. Additional Comments: None Estimated Blood Loss: Minimal Immediate Complications: None Disposition: PACU Plan: No follow-up with Interventional Radi ology required. I certify my physical presence at the ti co of the procedure. I personally reviewed the image(s) and the TORSTEN's inte rpretation and agree with the written report. Jennifer INMAN IMG IR ORDERABLES IR CT GUIDED BIOPSY LUNG/MEDIASTINAL (12/02/2021 11:40 AM CDT) Anatomical Region Laterality Modality Chest Computed Tomography Specimen (Source) Anatomical Location Collection Method / Collectio n Time Received Time / Laterality Volume Narrative 12/02/2021 3:07 PM CDT Date of Procedure: 12/02/21 Attending Physician: Jason De Jesus MD Shield Operator: None Pre Procedure Diagnosis: Multiple nodu les of lung; Lung mass Post Procedure Diagnosis: Unchanged Indication: New mass / nodule for tiss ue diagnosis Protocol Number: N/A Title of Procedure: Percutaneous CT-Guided Biopsy Operative Findings: 1. Percutaneous image-guided biopsy of 1 .5 cm left upper lobe lung lesion. 2. The follow-up chest x-rays show no ev idence of pneumothorax Consent: The procedure, risks, indicat ions and alternatives were explained. All questions were answered a nd informed consent was obtained. I have reviewed the history and physical dictated by the mid-level practitioner/fellow. Sedation/Anesthesia: Moderate sedation for pain control and a nxiety was administered by a dedicated nurse under my supervision. There was continuous monitoring of oxygen saturation, heart rate and interm ittent monitoring of blood pressure during the procedure. Medicat ion given was midazolam and fentanyl. I was present for the admin istration of the medications indicated above. Procedure Events Event Event Time Sedation Start 12/02/2021 11:15 AM Sedation End 12/02/2021 11:35 AM Procedure in Detail: A time out was performed prior to the st art of the procedure and the correct patient, procedure, presence of consent, site, and side were confirmed with all members of the team. With the patient in the prone position, the skin overlying the area of interest was prepped and draped in the u sual sterile fashion. Lidocaine 1% was used for local anesthesia. Using a posterior approach under CT imag e-guidance, a 19 gauge needle was advanced down to the lesion in the left lung. An image was obtained and placed into the medical record. Samples were obtained for evaluation. Sampling: Core Biopsy: A 20 gauge needle used to obtain samples for surgical pathology evaluation. Total number of samples: 3 Biosentry: A Biosentry device was depl oyed at the conclusion of the procedure. Post-biopsy radiographs: 1. The initial follow-up chest radiograp h demonstrates: No pneumothorax. 2. A subsequent follow-up chest radiogra ph was obtained 3 hours after the initial and demonstrates: No pneumotho rax. Specimens Disposition: Diagnostic Biopsy: The biopsy sampl es were submitted to pathology. Additional Comments: None Estimated Blood Loss: Minimal Immediate Complications: None Disposition: PACU Plan: No follow-up with Interventional Radi ology required. I certify my physical presence at the ti me of the procedure. I personally reviewed the image(s) and the TORSTEN's inte rpretation and agree with the written report. Zhang Abernathy MD [facility] [place] IR ORDERABLES Pathology Biopsy Interpretation (12/02/2021 11:15 AM CDT) Component Value Ref Test Analysis Performed Pathologis t Range Method Time At Signature Addendum 1 PD-L1 (Clone 22C3, [employer]) Tumoral Proportion Score (TPS): 70% 12/29/2021 [facility] Addendum Assay Information: This assa y is manufactured by [employer] and uses a monoclonal anti-PD-L1, clone 22C3. It is performed on formalin-fixed paraffin- embedded tissue using an [employer] Dako autostainer a 4: 51 PM electronically nd polymer based detection k it, as specified by the medical director. It is approved for use as a global consumer sector vice president diagnostic assay for specific therapies on certain tumor types. Interpretation guidelines vary. Fo CDT signed by kaleb tumoral percentage score ( TPS), the percentage of tumoral membranous labeling of any intensity is assessed. Please refer to the intended therapy package insert for appropriate use of results. [place] characteristics on other tissue types such decalcified specimens and on non-approved tumor types and therapies cannot be guaranteed. 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 CDT MD Gabriela on See comment. 022 at 9:16 AM Comment Immunohistochemical 12/29/2021 [facility] stains show positive 4:51 PM staining in tumor CDT cells with keratin and TTF-1, while negative for VENICE-3, PAX-8, and p40. Gross A: 12/29/2021 [facility] Description Lung, left upper lobe, left lung: Three cores of bhatt-brown soft tissue aggregating to 2.2 x 1.0 x 0.1 cm, entirely submitted in A1. MF 4:51 PM CDT Biomarker A. 12/29/2021 [facility] Block(s) 4:51 PM CDT Disclaimer "Some tests reported 12/29/2021 [facility] here may have been 4:51 PM developed and CDT performance characteristics determined by [facility] Pathology and Laboratory Medicine. These tests have not been specifically cleared or approved by the U.S. Food and Drug Administration. If applicable, controls were reviewed and showed appropriate reactivity." Specimen Anatomical Collection Method Collection Time Receive d Time (Source) Location / / Volume Laterality Tissue (Lung, 12/02/2021 11:15 12/02/2021 1:28 Left Upper Lobe) AM CDT PM CDT Zhang Abernathy MD LAB PATHOLOGY ORDERABLES Performing Organization Address City/State/ZIP Code Phon e Number [facility] [place] [address] [address] Lily (ABNORMAL) SPIROMETRY W/DILATORS, DLCO AND BODY PLETHSMOGRAPHIC LUNG VOLUMES (12/01/2021 2:27 PM CDT) Analysis Performed At Patho logist Time Signature FVC (L) post 2.307 1.634 - 12/01/2021 [facility] 2.859 L 2:26 PM CDT FEV1 (L) post 1.381 1.144 - 12/01/2021 [facility] 2.181 L 2:26 PM CDT FEV1/FVC (%) 59.869 (L) 64.440 - 12/01/2021 [facility] post 84.028 % 2:26 PM CDT FVC (L) pre 2.169 1.634 - 12/01/2021 [facility] 2.859 L 2:26 PM CDT FEV1 (L) pre 1.289 1.144 - 12/01/2021 [facility] 2.181 L 2:26 PM CDT FEV1/FVC (%) 59.434 (L) 64.440 - 12/01/2021 [facility] pre 84.028 % 2:26 PM CDT TLC (L) 7.084 (H) 3.321 - 12/01/2021 [facility] 5.295 L 2:26 PM CDT RV (L) 4.915 (H) 1.442 - 12/01/2021 [facility] 2.593 L 2:26 PM CDT RV/TLC (%) 69.382 (H) 35.890 - 12/01/2021 [facility] 55.070 % 2:26 PM CDT DLCO_SB 12.689 3.035 - 12/01/2021 [facility] ml/(min*mmHg) 23.202 2:26 PM CDT ml/(min*mm Hg) DLCOc_SB 12.651 3.035 - 12/01/2021 [facility] ml/(min*mmHg) 23.202 2:26 PM CDT ml/(min*mm Hg) FVC (% pred) 97 % 12/01/2021 [facility] pre 2:26 PM CDT FVC (% pred) 103 % 12/01/2021 [facility] post 2:26 PM CDT FEV1 (%pred) 78 % 12/01/2021 [facility] pre 2:26 PM CDT FEV1 (% pred) 83 % 12/01/2021 [facility] post 2:26 PM CDT FEV1/FVC (% 80 % 12/01/2021 [facility] pred) pre 2:26 PM CDT FEV1/FVC (% 81 % 12/01/2021 [facility] pred) post 2:26 PM CDT TLC (% pred) 164 % 12/01/2021 [facility] 2:26 PM CDT RV (% pred) 244 % 12/01/2021 [facility] 2:26 PM CDT RV/TLC (% 153 % 12/01/2021 [facility] pred) 2:26 PM CDT DLCO_SB (% 97 % 12/01/2021 [facility] pred) 2:26 PM CDT DLCOc_SB (% 96 % 12/01/2021 [facility] pred) 2:26 PM CDT Specimen (Source) Anatomical Collection Method Collection Time Re ceived Time Location / / Volume Laterality 12/01/2021 1:41 PM CDT Narrative This result has an attachment that is no t available. Zhang Abernathy MD PFT ORDERABLES Performing Organization Address City/[facility]/ZIP Code Phon e Number [facility] Hepatitis B Total Ig Core Ab (SCREENING) (anti-HBc total Ig; HBcAb total Ig) (11/29/2021 6:01 PM CDT) [facility] Method Time Signature HBcAb. Non Reactive Non Reactive [facility] Specimen Anatomical Collection Method Collection Time Receive d Time (Source) Location / / Volume Laterality Blood 11/29/2021 6:01 PM 7:15 CDT AM CDT Zhang Abernathy MD LAB BLOOD ORDERABLES Performing Organization Address City/[facility] Phon e Number [facility] Unless otherwise noted, [place] [address] MABEN all lab tests performed by: Division of Pathology and Laboratory Medicine [facility] Eveline Bautista Cryptococcal Ag Serum Path Review (11/29/2021 6:01 PM CDT) Component Value Ref Test Analysis Performed At [facility] Range Method Time Signature Crypto Ag, Reviewed and Electronically signed by Pathologist: [place] Serum MD RICKEY SANTANA MD #[id number] [facility] Comment: Reference Range: NEGATIVE The Cryptococcal Antigen Lateral Flow As say is a dipstick sandwich immunographic assay. Positive results will be titered. RICKEY SANTANA MD - [id number] Dictated by: RICKEY SANTANA MD - [phone] [id number] Dictated Date/Time: 11.30.2021 16:02 PM CDT Transcribed Date/Time: 11.30.2021 16:02 PM CDT Electronically Signed [place]: [place] [id number] on 11.30.2021 16:02 PM Specimen Anatomical Collection Method Collection Time Receive d Time (Source) Location / / Volume Laterality Blood 11/29/2021 6:01 PM 2 8:00 CDT PM CDT Zhang Abernathy MD MICROBIOLOGY - GENERAL ORDER FLOR Performing Organization Address City/State/ZIP Code Phon e Number [facility] Unless otherwise noted, [address] all lab tests performed by: Division of Pathology and Laboratory Medicine [address] [place] [address] Lily Cryptococcal Antigen, Serum (11/29/2021 6:01 PM CDT) [facility] gist Method Time Signature Cryptococcal Ag Negative Negative [facility] Specimen Anatomical Collection Method Collection Time Receive d Time (Source) Location / / Volume Laterality Blood 11/29/2021 6:01 PM 2 8:00 CDT PM CDT Zhang Abernathy MD MICROBIOLOGY - GENERAL ORDER FLOR Performing Organization Address City/State/ZIP Code Phon e Number [facility] Unless otherwise noted, [address] all lab tests performed by: Division of Pathology and Laboratory Medicine [address] [place], [place] [address] T-spot Tuberculosis (11/29/2021 6:01 PM CDT) athologist Signature Tspot TB Negative SeeBelow [facility] Comment: Normal Value: Negative A negative test result does not exclude the possibility of exposure to or infection with Mycobacter ium tuberculosis (M. tuberculosis). Patients with recent ex posure to TB infected individuals exhibiting a negati ve T-SPOT.TB result should be considered for retesting withi n 6 weeks or if other relevant clinical symptoms indicat e. Results from T-SPOT.TB testing must be used in conjun ction with each individual's epidemiological history, cu rrent medical status, and results of other diagnostic evaluations. The T-SPOT.TB test is qualitative and result s are reported as positive, borderline or negative, given that the test controls perform as expected. In line wi th the Centers for Disease Control and Prevention's 2009 re commendation to report quantitative measurements alongsi de the qualitative result, the laboratory provides spot cou nts for informational purposes only. The T-SPO T.TB test should not be interpreted as a quantitative test. Tspot TB Panel A 0 [facility] Tspot TB Panel B 0 [facility] Tspot TB Pos Cont Passed [facility] Comment: Lab test performed by: Lab Mnemonic: [facility] [employer] [facility] [address] [place] [address] TORIBIO TIRADO MD,PHD Tspot TB NIL Cont Passed [facility] Specimen Anatomical Collection Method Collection Time Receive d Time (Source) Location / / Volume Laterality Blood 11/29/2021 6:01 PM 6:17 CDT PM CDT Narrative [facility] - 12/02/2021 12:36 PM CDT If scheduling this lab at one of the following locations, it can only be collected on Sunday, Sunday, and Sunday due to collection/processing restrictions: [place] [facility] CTR [place] - [facility] DIAG LAB CTR [facility] [facility] [place] [facility] LAB CTR [facility] [facility] Zhang Abernathy MD LAB BLOOD ORDERABLES Performing Organization Address City/State/ZIP Code Phon e Number [facility] Histoplasma Ab Screen (11/29/2021 6:01 PM CDT) P athologist Signature Histo Immuno Negative Negative [facility] Comment: A negative complement fixation and immun odiffusion (CF/ID) result does not exclude the diagnosis of histoplasmosis. Repeat testing by CF/ID in 1-2 weeks if clinically indicated. Test Performed by: [facility] [address] [place], [place] [address] Electromechanical Equipment Tester: Kushal Cannon M.D. Ph. D.; CLIA# [id number] Histo Mycel Ab-[place] Negative Negative [facility] Histo Yeast Ab-[place] Negative Negative [facility] Specimen Anatomical Collection Method Collection Time Receive d Time (Source) Location / / Volume Laterality Blood 11/29/2021 6:01 PM 2 6:57 CDT PM CDT Zhang Abernathy MD LAB BLOOD ORDERABLES Performing Organization Address City/State/ZIP Code Phon e Number [facility] Unless otherwise noted, [address] all lab tests performed by: Division of Pathology and Laboratory Medicine [address] [place] [address] Coccidioides Ab (11/29/2021 6:01 PM CDT) athologist Signature Cocci Comp Negative Negative [facility] Fix-[facility] Cocci IgG-[place] Negative Negative [facility] Cocci IgM-[place] Negative Negative [facility] Comment: A negative complement fixation and immun odiffusion (CompF/ImmDiff) result does not exclude the diagnosis of coccidioidomycosis. Repeat testing by CompF/ImmDiff in 2-3 weeks if clinically indicated. Test Performed by: [facility] [address] [place] [address] Electromechanical Equipment Tester: Kushal Cannon M.D. Ph. D.; CLIA# [id number] Specimen Anatomical Collection Method Collection Time Receive d Time (Source) Location / / Volume Laterality Blood 11/29/2021 6:01 PM 2 7:06 CDT PM CDT Zhang Abernathy MD LAB BLOOD ORDERABLES Performing Organization Address City/[facility]/ZIP Code Phon e Number [facility] Unless otherwise noted, [address] all lab tests performed by: Division of Pathology and Laboratory Medicine [address] [place] [address] [place] [address] Skull to Mid Thigh (11/28/2021 11:06 PM CDT) Specimen (Source) Anatomical Location Collection Method / Collectio n Time Received Time / Laterality Volume Narrative Systemgenerated, Documentation - 022 11:07 PM CDT Study acquired at another institution. For comparison only. No MD [place] originated interpretation requested or a vailable. Clay Ahumada MD IMG OUTSIDE IMAGE ORDERABLES OSI CT Chest (11/16/2021 2:06 AM CDT) Specimen (Source) Anatomical Location Collection Method / Collectio n Time Received Time / Laterality Volume Narrative Systemgenerated, Documentation - 022 2:06 AM CDT Study acquired at another institution. For comparison only. No MD [place] originated interpretation requested or a vailable. Clay Ahumada MD IMG OUTSIDE IMAGE ORDERABLES OSI Bone Density Study (10/28/2021 2:06 AM CDT) Specimen (Source) Anatomical Location Collection Method / Collectio n Time Received Time / Laterality Volume Narrative Systemgenerated, Documentation - 022 2:06 AM CDT Study acquired at another institution. For comparison only. No MD [place] originated interpretation requested or a vailable. 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
--- OUTSIDE RECORDS SUMMARY | 2022-03-03 11:37 | XMS REPORT | Continuity of Care Document ---
:1945 Author Organization [facility] t Address [address] [place] [address] Care Team Providers Name Role Phone Tate HO, Sammie Navarrete Primary Care Physician [phone] SYSTEM, PROVIDER NOT IN Attending Clinician Unavailable Tammy Palm Attending Clinician Dai Crouch MD Attending Clinician [phone] DAI CROUCH Attending Clinician Unavailable Finn Gifford RN Attending Clinician Unavailable Sofy Castillo Attending Clinician Darrick ChristiansonD, Tra Attending Clinician BRINA HOLLOWAY Attending Clinician Unavailable Ambreen Nance Attending Clinician Franky Lopez RN Attending Clinician Unavailable Cyndy Min APN Attending Clinician Indira Carpio RN Attending Clinician Unavailable Muriel Arzola Attending Clinician Mariama Baez MA Attending Clinician MURIEL ABREU Attending Clinician Unavailable Giorgi Soto Attending Clinician Elana Yoon Attending Clinician Brenden COMPENSATION AGENT, Sana Liu Attending Clinician Nubia COLLAZO, Dany Newberry Attending Clinician Unavailable Brandyn SALAZAR, Susie Attending Clinician ISMAEL TONY Attending Clinician Unavailable SOFY ALMENDAREZ Attending Clinician Unavailable Macario HO, Wade Metz Attending Clinician [phone] Familia HO, Holley Attending Clinician [phone] JOSE ABERNATHY Attending Clinician Unavailable Satya HO, Warren Attending Clinician WARREN HERNADEZ Attending Clinician Unavailable Ca HO, Pedro Garcia Attending Clinician KAYLIE MOTA Attending Clinician Unavailable Nakul HO, Kaylie Attending Clinician Rasta HO, Goldie Attending Clinician Reed SALAZAR, Jennie Liu Attending Clinician Carine COLLAZO, Yu Allison Attending Clinician [phone] TAMMY LOPEZ Attending Clinician Unavailable Jose Abernathy MD Attending Clinician RADIOLOGY, DEPT Attending Clinician Unavailable Shyanne Muñiz Attending Clinician Unavailable Jason De Jesus MD Attending Clinician Ella Verduzco Attending Clinician [place]on COLLAZO, Sandy Montenegro Attending Clinician Unavailable CLAY AHUMADA Attending Clinician Unavailable Olimpia Valencia Attending Clinician Shaista SALAZAR, Anika Attending Clinician Valentin COLLAZO, Tristen Cavazos Attending Clinician Unavailable LAB39 Attending Clinician Unavailable Brina Holloway MD Attending Clinician FATUMA BAUMANN Attending Clinician Unavailable LEODAN BARAKAT Attending Clinician Unavailable LAB90 Attending Clinician Unavailable Leodan Barajas Attending Clinician SAMMIE BOWER Attending Clinician Unavailable KAYLIE MOTA Admitting Clinician Unavailable Payers Payer Name Policy Type Policy Number Effective Date Expiration Date S ource MEDICARE-PART B 5 [id number] 2021 00:00:00 CIGNA 2 [id number] 2021 00:00:00 Problems Condition Condition Condition Status Onset Resolution Last Treating Co mments Source Name Details Category Date Date Treatment Clinician Date Cerebral Cerebral Disease Active Unive rs thrombosis thrombosis 8-09 it y of 00:00: [place] 00 MD Jose Angel [facility] Simple Simple Disease Active Univers chronic chronic 7-12 ity of [place] Jose Angel [facility] Other Other Disease Active Univers chest pain chest pain 7-12 it y of 00:00: 00 MD Jose Angel [facility] Nicotine Nicotine Disease Active Unive rs dependence dependence 6- it y of 00:00: 00 MD Jose Angel [facility] Adenocarci Adenocarci Disease Active Last U nivers noma, NOS noma, NOS 6-23 Assessmen i ty of of upper of upper 00:00: t & Plan: Bladimir as lobe, lung lobe, lung 00 Formattin <Left> <Left> g of this Anderso note n might be Cancer different Center from the original. Ms. 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 She has completed PET scan and EBUS as well. Dr. Warren Hernadez provided a detailed explanati on of her different treatment options but ultimatel y recommend ed neoadjuva nt therapy in the form of a clinical trial with targeted therapy or chemoimmu notherapy followed by surgery with left upper lobectomy . She is seeing thoracic medical oncology today and we will see her after treatment is completed . assisted assisted Disease Active Jarrett jacobs (current) (current) 3-30 Seyb old use of use of 00:00: inhaled inhaled 00 steroids steroids COPD COPD Disease Active More (chronic (chronic 3-30 Seybol d obstructiv obstructiv 00:00: e e 00 pulmonary pulmonary disease) disease) with with chronic chronic bronchitis bronchitis Delmar or Delmar or Disease Active More callus callus 3-30 Seybold 00:00: 00 HTN HTN Disease Active More (hypertens (hypertens 1-25 Se ybold ion) ion) 00:00: 00 Chronic Chronic Disease Active Univers obstructiv obstructiv 4-05 it y of e e 00:00: [place] pulmonary pulmonary 00 disease disease [facility] Coronary Coronary Disease Active Unive rs arterioscl arterioscl 4-05 it y of erosis erosis 00:00: [place] 00 MD Jose Angel wiseman [facility] Gastroesop Gastroesop Disease Active U nivers hageal hageal 4-05 ity of reflux reflux 00:00: [place] disease [facility] Hypertensi Hypertensi Disease Active U nivers ve ve 4-05 ity of disorder disorder 00:00: [place] 00 MD Jose Angel wiseman [facility] Tobacco Tobacco Disease Active Univers user user 4-05 ity of 00:00: [place] 00 MD Jose Angel wiesman [facility] Shortness Shortness Disease Active Uni vers of breath of breath 4-05 ity of 00:00: [place] 00 [facility] Allergies, Adverse Reactions, Alerts Allergy Allergy Status Severity Reaction(s) Onset Inactive Treating Comm ents Source Name Type Date Date Clinician CLINDAMY DRUG Active 0 MD GRECIA INGREDI 4-04 Anderso 00:00: n 00 CLINDAMY DRUG Active 2018-0 MD GRECIA INGREDI 4-04 Anderso 00:00: n 00 CLINDAMY DRUG Active 2018-0 MD GRECIA INGREDI 4-04 Anderso 00:00: n 00 CLINDAMY DRUG Active 2018-0 MD GRECIA INGREDI 4-04 Anderso 00:00: n 00 CLINDAMY DRUG Active 2018-0 MD GRECIA INGREDI 4-04 Anderso 00:00: n 00 CLINDAMY DRUG Active 2018-0 MD GRECIA INGREDI 4-04 Anderso 00:00: n 00 CLINDAMY DRUG Active 2018-0 MD GRECIA INGREDI 4-04 Anderso 00:00: n 00 CLINDAMY DRUG Active 2018-0 MD GRECIA INGREDI 4-04 Anderso 00:00: n 00 CLINDAMY DRUG Active 2018-0 MD GRECIA INGREDI 4-04 Anderso 00:00: n 00 CLINDAMY DRUG Active 2018-0 MD GRECIA INGREDI 4-04 Anderso 00:00: n 00 CLINDAMY DRUG Active 2018-0 MD GRECIA INGREDI 4-04 Anderso 00:00: n 00 CLINDAMY DRUG Active 2018-0 MD GRECIA INGREDI 4-04 Anderso 00:00: n 00 CLINDAMY DRUG Active 2018-0 MD GRECIA INGREDI 4-04 Anderso 00:00: n 00 CLINDAMY DRUG Active 2018-0 MD GRECIA INGREDI 4-04 Anderso 00:00: n 00 CLINDAMY DRUG Active 2018-0 MD GRECIA INGREDI 4-04 Anderso 00:00: n 00 CLINDAMY DRUG Active 2018-0 MD GRECIA INGREDI 4-04 Anderso 00:00: n 00 CLINDAMY DRUG Active 2018-0 MD GRECIA INGREDI 4-04 Anderso 00:00: n 00 CLINDAMY DRUG Active 2018-0 MD GRECIA INGREDI 4-04 Anderso 00:00: n 00 CLINDAMY DRUG Active 2018-0 MD GRECIA INGREDI 4-04 Anderso 00:00: n 00 CLINDAMY DRUG Active 2018-0 MD GRECIA INGREDI 4-04 Anderso 00:00: n 00 CLINDAMY DRUG Active 2018-0 MD GRECIA INGREDI 4-04 Anderso 00:00: n 00 CLINDAMY DRUG Active 2018-0 MD GRECIA INGREDI 4-04 Anderso 00:00: n 00 CLINDAMY DRUG Active 2018-0 MD GRECIA INGREDI 4-04 Anderso 00:00: n 00 CLINDAMY DRUG Active 2018-0 MD GRECIA INGREDI 4-04 Anderso 00:00: n 00 CLINDAMY DRUG Active 2018-0 MD GRECIA INGREDI 4-04 Anderso 00:00: n 00 CLINDAMY DRUG Active 2018-0 MD GRECIA INGREDI 4-04 Anderso 00:00: n 00 CLINDAMY DRUG Active 2018-0 MD GRECIA INGREDI 4-04 Anderso 00:00: n 00 CLINDAMY DRUG Active 2018-0 MD GRECIA INGREDI 4-04 Anderso 00:00: n 00 CLINDAMY DRUG Active 2018-0 MD GRECIA INGREDI 4-04 Anderso 00:00: n 00 CLINDAMY DRUG Active 2018-0 MD GRECIA INGREDI 4-04 Anderso 00:00: n 00 CLINDAMY DRUG Active 2018-0 MD GRECIA INGREDI 4-04 Anderso 00:00: n 00 CLINDAMY DRUG Active 2018-0 MD GRECIA INGREDI 4-04 Anderso 00:00: n 00 CLINDAMY DRUG Active 2018-0 MD GRECIA INGREDI 4-04 Anderso 00:00: n 00 CLINDAMY DRUG Active 2018-0 MD GRECIA INGREDI 4-04 Anderso 00:00: n 00 CLINDAMY DRUG Active 2018-0 MD GRECIA INGREDI 4-04 Anderso 00:00: n 00 CLINDAMY DRUG Active 2018-0 MD GRECIA INGREDI 4-04 Anderso 00:00: n 00 CLINDAMY DRUG Active 2018-0 MD GRECIA INGREDI 4-04 Anderso 00:00: n 00 CLINDAMY DRUG Active 2018-0 MD GRECIA INGREDI 4-04 Anderso 00:00: n 00 CLINDAMY DRUG Active 2018-0 MD GRECIA INGREDI 4-04 Anderso 00:00: n 00 CLINDAMY DRUG Active 2018-0 MD GRECIA INGREDI 4-04 Anderso 00:00: n 00 CLINDAMY DRUG Active 2018-0 MD GRECIA INGREDI 4-04 Anderso 00:00: n 00 CLINDAMY DRUG Active 2018-0 MD GRECIA INGREDI 4-04 Anderso 00:00: n 00 CLINDAMY DRUG Active 2018-0 MD GRECIA INGREDI 4-04 Anderso 00:00: n 00 CLINDAMY DRUG Active 2018-0 MD GRECIA INGREDI 4-04 Anderso 00:00: n 00 CLINDAMY DRUG Active 2018-0 MD GRECIA INGREDI 4-04 Anderso 00:00: n 00 CLINDAMY DRUG Active 2018-0 MD GRECIA INGREDI 4-04 Anderso 00:00: n 00 CLINDAMY DRUG Active 2018-0 MD GRECIA INGREDI 4-04 Anderso 00:00: n 00 CLINDAMY DRUG Active 2018-0 MD GRECIA INGREDI 4-04 Anderso 00:00: n 00 CLINDAMY DRUG Active 2018-0 MD GRECIA INGREDI 4-04 Anderso 00:00: n 00 CLINDAMY DRUG Active 2018-0 MD GRECIA INGREDI 4-04 Anderso 00:00: n 00 CLINDAMY DRUG Active 2018-0 MD GRECIA INGREDI 4-04 Anderso 00:00: n 00 CLINDAMY DRUG Active 2018-0 MD GRECIA INGREDI 4-04 Anderso 00:00: n 00 CLINDAMY DRUG Active 2018-0 MD GRECIA INGREDI 4-04 Anderso 00:00: n 00 CLINDAMY DRUG Active 2018-0 MD GRECIA INGREDI 4-04 Anderso 00:00: n 00 CLINDAMY DRUG Active 2018-0 MD GRECIA INGREDI 4-04 Anderso 00:00: n 00 CLINDAMY DRUG Active 2018-0 MD GRECIA INGREDI 4-04 Anderso 00:00: n 00 CLINDAMY DRUG Active 2018-0 MD GRECIA INGREDI 4-04 Anderso 00:00: n 00 CLINDAMY DRUG Active 2018-0 MD GRECIA INGREDI 4-04 Anderso 00:00: n 00 CLINDAMY DRUG Active 2018-0 MD GRECIA INGREDI 4-04 Anderso 00:00: n 00 CLINDAMY DRUG Active 2018-0 MD GRECIA INGREDI 4-04 Anderso 00:00: n 00 CLINDAMY DRUG Active 2018-0 MD GRECIA INGREDI 4-04 Anderso 00:00: n 00 CLINDAMY DRUG Active 2018-0 MD GRECIA INGREDI 4-04 Anderso 00:00: n 00 CLINDAMY DRUG Active 2018-0 MD GRECIA INGREDI 4-04 Anderso 00:00: n 00 CLINDAMY DRUG Active 2018-0 MD GRECIA INGREDI 4-04 Anderso 00:00: n 00 CLINDAMY DRUG Active 2018-0 MD GRECIA INGREDI 4-04 Anderso 00:00: n 00 CLINDAMY DRUG Active 2018-0 MD GRECIA INGREDI 4-04 Anderso 00:00: n 00 CLINDAMY DRUG Active 2018-0 MD GRECIA INGREDI 4-04 Anderso 00:00: n 00 CLINDAMY DRUG Active 2018-0 MD GRECIA INGREDI 4-04 Anderso 00:00: n 00 CLINDAMY DRUG Active 2018-0 MD GRECIA INGREDI 4-04 Anderso 00:00: n 00 CLINDAMY DRUG Active 2018-0 MD GRECIA INGREDI 4-04 Anderso 00:00: n 00 CLINDAMY DRUG Active 2018-0 MD GRECIA INGREDI 4-04 Anderso 00:00: n 00 CLINDAMY DRUG Active 2018-0 MD GRECIA INGREDI 4-04 Anderso 00:00: n 00 CLINDAMY DRUG Active 2018-0 MD GRECIA INGREDI 4-04 Anderso 00:00: n 00 CLINDAMY DRUG Active 2018-0 MD GRECIA INGREDI 4-04 Anderso 00:00: n 00 CLINDAMY DRUG Active 2018-0 MD GRECIA INGREDI 4-04 Anderso 00:00: n 00 CLINDAMY DRUG Active 2018-0 MD GRECIA INGREDI 4-04 Anderso 00:00: n 00 CLINDAMY DRUG Active 2018-0 MD GRECIA INGREDI 4-04 Anderso 00:00: n 00 CLINDAMY DRUG Active 2018-0 MD GRECIA INGREDI 4-04 Anderso 00:00: n 00 CLINDAMY DRUG Active 2018-0 MD GRECIA INGREDI 4-04 Anderso 00:00: n 00 CLINDAMY DRUG Active 2018-0 MD GRECIA INGREDI 4-04 Anderso 00:00: n 00 CLINDAMY DRUG Active 2018-0 MD GRECIA INGREDI 4-04 Anderso 00:00: n 00 CLINDAMY DRUG Active 2018-0 MD GRECIA INGREDI 4-04 Anderso 00:00: n 00 CLINDAMY DRUG Active 2018-0 MD GRECIA INGREDI 4-04 Anderso 00:00: n 00 CLINDAMY DRUG Active 2018-0 MD GRECIA INGREDI 4-04 Anderso 00:00: n 00 CLINDAMY DRUG Active 2018-0 MD GRECIA INGREDI 4-04 Anderso 00:00: n 00 CLINDAMY DRUG Active 2018-0 MD GRECIA INGREDI 4-04 Anderso 00:00: n 00 CLINDAMY DRUG Active 2018-0 MD GRECIA INGREDI 4-04 Anderso 00:00: n 00 CLINDAMY DRUG Active 2018-0 MD GRECIA INGREDI 4-04 Anderso 00:00: n 00 CLINDAMY DRUG Active 2018-0 MD GRECIA INGREDI 4-04 Anderso 00:00: n 00 CLINDAMY DRUG Active 2018-0 MD GRECIA INGREDI 4-04 Anderso 00:00: n 00 CLINDAMY DRUG Active 2018-0 MD GRECIA INGREDI 4-04 Anderso 00:00: n 00 CLINDAMY DRUG Active 2018-0 MD GRECIA INGREDI 4-04 Anderso 00:00: n 00 CLINDAMY DRUG Active 2018-0 MD GRECIA INGREDI 4-04 Anderso 00:00: n 00 CLINDAMY DRUG Active 2018-0 MD GRECIA INGREDI 4-04 Anderso 00:00: n 00 CLINDAMY DRUG Active 2018-0 MD GRECIA INGREDI 4-04 Anderso 00:00: n 00 CLINDAMY DRUG Active 2018-0 MD GRECIA INGREDI 4-04 Anderso 00:00: n 00 CLINDAMY DRUG Active 2018-0 MD GRECIA INGREDI 4-04 Anderso 00:00: n 00 CLINDAMY DRUG Active 2018-0 MD GRECIA INGREDI 4-04 Anderso 00:00: n 00 CLINDAMY DRUG Active 2018-0 MD GRECIA INGREDI 4-04 Anderso 00:00: n 00 Clindamy Propensi Active 2018-0 Other More grecia ty to 4-04 reaction( Seybold adverse 00:00: s): reaction 00 Itching/H s lincoln/Rash CLINDAMY DRUG Active 2018-0 MD GRECIA INGREDI 4-04 Anderso 00:00: n 00 CLINDAMY DRUG Active 2018-0 MD GRECIA INGREDI 4-04 Anderso 00:00: n 00 CLINDAMY DRUG Active 2018-0 MD GRECIA INGREDI 4-04 Anderso 00:00: n 00 CLINDAMY DRUG Active 2018-0 MD GRECIA INGREDI 4-04 Anderso 00:00: n 00 CLINDAMY DRUG Active 2018-0 MD GRECIA INGREDI 4-04 Anderso 00:00: n 00 CLINDAMY DRUG Active 2018-0 MD GRECIA INGREDI 4-04 Anderso 00:00: n 00 CLINDAMY DRUG Active 2018-0 MD GRECIA INGREDI 4-04 Anderso 00:00: n 00 CLINDAMY DRUG Active 2018-0 MD GRECIA INGREDI 4-04 Anderso 00:00: n 00 CLINDAMY DRUG Active 2018-0 MD GRECIA INGREDI 4-04 Anderso 00:00: n 00 CLINDAMY DRUG Active 2018-0 MD GRECIA INGREDI 4-04 Anderso 00:00: n 00 CLINDAMY DRUG Active 2018-0 MD GRECIA INGREDI 4-04 Anderso 00:00: n 00 CLINDAMY DRUG Active 2018-0 MD GRECIA INGREDI 4-04 Anderso 00:00: n 00 CLINDAMY DRUG Active 2018-0 MD GRECIA INGREDI 4-04 Anderso 00:00: n 00 CLINDAMY DRUG Active 2018-0 GRECIA INGREDI 4-04 Anderso 00:00: n 00 CLINDAMY DRUG Active 2018-0 GRECIA INGREDI 4-04 Anderso 00:00: n 00 CLINDAMY DRUG Active 2018-0 GRECIA INGREDI 4-04 Anderso 00:00: n 00 Clindamy Drug Active 2018-0 Other Univers grecia Allergy 4-04 reaction( ity of 00:00: s): [place] 00 Itching/H MD lincoln/Rash Anderso Other n reaction( Cancer s): [place] Itching/H lincoln/Rash Family History Family Member Diagnosis Comments Start Date Stop Date Source Natural brother Dementia [facility] Natural daughter Skin cancer Univers ity of [facility] Natural father [facility] Natural mother Brain cancer Universi ty of [facility] Natural son [facility] Social History Social Habit Start Date Stop Date Quantity Comments Source Exposure to 2022-02-17 2022-02-27 Not sure University of SARS-CoV-2 (event) 00:00:00 11:03:00 [facility] Cigarette 2022-01-24 2022-01-24 University of pack-years 00:00:00 00:00:00 Niecy evans [facility] Tobacco use and 2022-01-24 2022-01-24 Smokeless Universit y of exposure 00:00:00 00:00:00 tobacco non-user [facility] Alcohol intake 2022-01-24 2022-01-24 Ex-drinker University 00:00:00 00:00:00 (finding) Niecy Ruelas [facility] Cigarettes smoked 2022-01-24 2022-01-24 Univers ity of current (pack per 00:00:00 00:00:00 Niecy Elmore ) - Reported Cancer Ce nter History of tobacco 1961-06-18 2022-01-12 Current smoker Un iversity of use 00:00:00 00:00:00 Niecy evans [facility] Tobacco Comment 2021-12-14 2021-12-14 6-8 cpd x 1 Universi ty of 00:00:00 00:00:00 month [place] MD [facility] Education 2021-11-29 2021-11-[address] [place] [address] 00:00:00 00:00:00 [place] MD Suraj evans [facility] Sex [birth year] Universit y of 00:00:00 00:00:00 [place] MD Suraj evans [facility] Smoking Status Start Date Stop Date Source Ex-smoker 2022-01-24 00:00:00 2022-01-24 00:00:00 [facility] [place] [facility] [place] [facility] Smokes tobacco daily 2021-09-14 00:00:00 More Sejaijefry Medications Ordered Filled Start Stop Current Ordering Indication Dosage Frequency Signature Comments Components Source Medication Medication Date Date Medication? Clinician (SIG) Name Name esomeprazol Yes 40mg Take 40 mg Univers e (NexIUM) 9-12 by mouth ity o f 40 MG 09:22: every [place] capsule 18 morning MD before Andmaryo breakfast. n [facility] calcium Yes 1{tbl} Take 1 Univer s carbonate 9-12 tablet by ity o f (CALCIUM 09:22: mouth [place] 500 ORAL) 18 daily. MD Jose Angel wiseman [facility] cholecalcif Yes 1000U Take 1,000 Univers rick, 9-12 Units by ity of vitamin D3, 09:22: mouth [place] 25 mcg 18 daily. (1,000 Anderso unit) bowen capsule [facility] ascorbic Yes 500mg Take 500 Univ ers acid 9-12 mg by ity of (VITAMIN C) 09:22: mouth [place] 500 mg 18 daily. tablet Jose Angel n [facility] budesonide- Yes Inhale by U nivers formoterol 9-12 mouth ity of (SYMBICORT) 09:22: twice [place] 160-4.5 18 daily. mcg/acturosalia Walter on inhaler [facility] apixaban Yes Adenocarcin 5mg Take 1 Univers (Eliquis) 5 9-12 muriel of left tablet (5 ity of mg tablet 00:00: lung mg) by [place] 00 mouth every 12 Andanca (twelve) n hours. [facility] fluticasone Yes Simple 1{puff} Inhale 1 Univers propion-funmi 02-27 chronic puff by it y of meteroL 00:00: bronchitis mouth Bladimir as 232-14 00 twice MD mcg/actuati daily. Darryl o on [facility]b [facility] dexamethaso Yes Adenocarcin 4mg Take 1 Univers ne 02-24 muriel, NOS of tablet (4 ity of (DECADRON) 00:00: upper lobe, mg) by [place] 4 mg tablet 00 lung <Left> mouth MD twice Anderso daily. n Take on Cancer days 2, 3, Center and 4 of each chemothera py cycle ondansetron Yes Adenocarcin 8mg Take 1 Univers (ZOFRAN) 8 02-24 muriel, NOS of tablet (8 ity of mg tablet 00:00: upper lobe, mg) by [place] 00 lung <Left> mouth MD every 8 Anderso (eight) n hours as Cancer needed for Center nausea or vomiting. folic acid Yes Adenocarcin 400ug Take 1 Univers (FOLVITE) 02-24 muriel, NOS of tablet i ty of 400 mcg 00:00: upper lobe, (400 mcg) [place] tablet 00 lung <Left> by mouth MD daily. Anderso n [facility] apixaban 0 2021- No Adenocarcin 5mg Take 1 Univers (Eliquis) 5 02-23 09-12 muriel of left tablet (5 ity of mg tablet 00:00: 00:00 lung mg) by [place] 00 :00 mouth MD every 12 Anderso (twelve) n hours. Cancer Center Nicoderm CQ Yes Nicotine Apply 1 Univers 21 mg/24 hr 8-23 dependence patch to ity of transdermal 00:00: [place] patch 00 change MD patch Anderso daily as n directed Cancer for Center tobacco cessation (alternate sites). Nicorette 2 Yes Nicotine 2mg Dissolve 1 Univers mg mini 8-23 dependence lozenge (2 ity of lozenge 00:00: mg) in [place] 00 mouth MD every 2 Anderso (two) n hours as Cancer needed for Center smoking cessation. Avoid acidic beverages during, 5 min before/aft er use apixaban Yes Adenocarcin Take 2 Univers (Eliquis 7-25 muriel of left tablets by ity of DVT-PE 00:00: lung mouth [place] Treat 30D 00 twice MD Guerra) 5 mg daily for And erso (74 tabs) 7 days, n tablet then take Cancer 1 tablet Center by mouth twice daily thereafter . apixaban No Adenocarcin 5mg Take 1 Univers (Eliquis) 5 01-09 09-08 muriel of left tablet (5 ity of mg tablet 00:00: 00:00 lung mg) by [place] 00 :00 mouth MD every 12 Anderso (twelve) n hours. Cancer Center aspirin 325 2021- No 325mg Take 325 Univers mg tablet 12-27 06-29 mg by ity of 20:19: 00:00 mouth. [place] 54 :00 Andanca n [facility] Nicoderm CQ No Nicotine Apply 1 Univers 21 mg/24 hr 12-14 dependence patch to ity of transdermal 00:00: 00:00 skin and [place] patch 00 :00 change patch Anderso daily as n directed Cancer for Center tobacco cessation (alternate sites). Nicorette 2 2021- No Nicotine 2mg Dissolve 1 Univers mg mini 12-14 dependence lozenge (2 ity of lozenge 00:00: 00:00 mg) in the Bladimir as 00 :00 mouth every 2 Anderso (two) n hours as Cancer needed for Center smoking cessation. Avoid acidic beverages during, 5 min before/aft er use albuterol Yes 2{puff} Inhale 2 U nivers (VENTOLIN 6-20 puffs by ity of HFA,PROAIR 00:00: mouth. [place] HFA) 90 00 MD mcg/puff Anderso inhaler [facility] fluticasone Yes 1{spray Inhale 1 Univers propionate 6-13 } spray into ity of (FLONASE) 00:00: each [place] 50 00 nostril as MD mcg/spray needed. Anderso nasal spray [facility] Alendronate Yes [id number] 70mg Take 1 More Sodium 70 6-01 tablet (70 Seyb old MG oral 00:00: mg total) Tablet 00 by mouth every 7 days alendronate 2021- No 1{tbl} Take 1 U nivers (FOSAMAX) 11-16 06-29 tablet by ity of 70 mg 00:00: 00:00 mouth once [place] tablet 00 :00 a week. MD Walter [facility] Fluticasone Yes 1{puff} Inhale 1 More -Salmeterol 5-16 puff into Sey bold 232-14 00:00: the lungs MCG/ACT 00 2 times inhalation daily AEROSOL POWDER, BREATH ACTIVATED Fluticasone Yes 1{puff} Inhale 1 More -Salmeterol 5-16 puff into Sey bold 232-14 00:00: the lungs MCG/ACT 00 2 times inhalation daily AEROSOL POWDER, BREATH ACTIVATED fluticasone 2021-0 2021- No 1{puff} Inhale 1 Univers propion-funmi 5-16 09-12 puff by ity of meteroL 00:00: 00:00 mouth [place] 232-14 00 :00 twice mcg/actuati daily. Darryl hartman [facility] FLUTICASONE Yes [id number] 50ug Use 1 More PROPIONATE, 5-13 spray (50 Sey bold NASAL, 50 00:00: mcg total) MCG/ACT 00 in each nasal nostril Suspension daily Fluticasone Yes 1{puff} Inhale 1 More -Salmeterol 4-28 puff into Sey bold 232-14 00:00: the lungs MCG/ACT 00 2 times inhalation daily AEROSOL POWDER, BREATH ACTIVATED Budesonide- 2021-0 2021- No 2{puff} Inhale 2 More Formoterol 3-30 03-30 puffs into Se ybold Fumarate 11:25: 00:00 the lungs 160-4.5 58 :00 2 times MCG/ACT daily inhalation Aerosol Albuterol 2021-0 2021- No 1{puff} Inhale 1 More Sulfate 108 3-30 03-30 puff into Se ybold (90 Base) 11:14: 00:00 the lungs MCG/ACT 07 :00 every 4 to inhalation 6 hours as AEROSOL needed POWDER, BREATH ACTIVATED Fluticasone 2021-0 Yes [id number] Inhale 1 More -Umeclidin- 3-30 inhalation Se ybold Vilant 00:00: into the (Trelegy 00 lungs Ellipta) daily 100-62.5-25 MCG/INH inhalation AEROSOL POWDER, BREATH ACTIVATED Fluticasone 2021- No [id number] Inhale 1 More -Umeclidin- 3-30 04-28 inhalation S eybold Vilant 00:00: 00:00 into the (Trelegy 00 :00 lungs Ellipta) daily 100-62.5-25 MCG/INH inhalation AEROSOL POWDER, BREATH ACTIVATED ProAir HFA 0 Yes More 108 (90 3-28 Seybold Base) 00:00: MCG/ACT 00 inhalation Aerosol Solution ProAir HFA 0 Yes 2{puff} Inhale 2 More 108 (90 3-28 puffs into Seybol d Base) 00:00: the lungs MCG/ACT 00 inhalation Aerosol Solution ProAir HFA 0 Yes 2{puff} Inhale 2 More 108 (90 3-28 puffs into Seybol d Base) 00:00: the lungs MCG/ACT inhalation Aerosol Solution ProAir HFA 0 Yes 1{puff} Inhale 1 Univers 90 3-28 puff by ity of mcg/actuati 00:00: [place] inhaler 00 needed. [facility] Metoprolol 0 Yes More Tartrate 50 2-15 Seybold MG oral 00:00: Tablet 00 Metoprolol 0 Yes 50mg Take 50 mg K elsey Tartrate 50 2-15 by mouth Seyb old MG oral 00:00: in the Tablet 00 morning and 50 mg in the evening. metoprolol 0 Yes 1{tbl} Take 1 Uni vers tartrate 2-15 tablet by ity of (LOPRESSOR) 00:00: mouth [place] 50 mg 00 daily. MD ocampo [facility] Metoprolol 0 Yes 50mg Take 50 mg K elsey Tartrate 50 2-15 by mouth Seyb old MG oral 00:00: in the Tablet 00 morning and 50 mg in the evening. Symbicort 2020-06- No 1{puff} Inhale 1 Univers 160-4.5 2-09 06-29 puff by ity of mcg/actuati 00:00: 00:00 mouth [place] on inhaler 00 :00 daily. MD Jose Angel [facility] Immunizations Ordered Immunization Filled Immunization Date Status Commen ts Source Name Name Pneumococcal 2017-09-20 Completed University o f Polysaccharide 00:00:00 Niecy Angel [facility] Pneumococcal Vaccine, 2017-09-20 Completed Jarrett sey Seybold Polysaccharide 00:00:00 Vital Signs Vital Name Observation Time Observation Value Comments Source Systolic blood 2021-11-16 14:13:00 126 mm[Hg] More Seybold pressure Diastolic blood 2021-11-16 14:13:00 70 mm[Hg] Kelse y Seybold pressure Heart rate 2021-11-16 14:13:00 56 /min More S eybold Respiratory rate 2021-11-16 14:13:00 15 /min Cony ey Seybold Body height 2021-11-16 14:13:00 157.5 cm More S eybold Body weight 2021-11-16 14:13:00 48.081 kg More S eybold BMI 2021-11-16 14:13:00 19.39 kg/m2 More S eybold Systolic blood 2021 15:30:00 169 mm[Hg] More Seybold pressure Diastolic blood 2021 15:30:00 67 mm[Hg] Kelse y Seybold pressure Heart rate 2021 15:30:00 49 /min More S eybold Body temperature 2021 15:30:00 36.72 Charlette Cony ey Seybold Respiratory rate 2021 15:30:00 16 /min Cony ey Seybold Body height 2021 15:30:00 157.5 cm More S eybold Body weight 2021 15:30:00 49.442 kg More S eybold BMI 2021 15:30:00 19.94 kg/m2 More S eybold Oxygen saturation in 2021 15:30:00 98 /min More Seybold Arterial blood by Pulse oximetry Systolic blood 2021-09-14 15:21:00 113 mm[Hg] More Seybold pressure Diastolic blood 2021-09-14 15:21:00 62 mm[Hg] Kelse y Seybold pressure Heart rate 2021-09-14 15:21:00 58 /min More murraybostaci Body temperature 2021-09-14 15:21:00 36.39 Charlette Cony murray Seybold Respiratory rate 2021-09-14 15:21:00 14 /min Cony murray Seybold Body height 2021-09-14 15:21:00 157.5 cm More murraybostaci Body weight 2021-09-14 15:21:00 49.261 kg More murraybold BMI 2021-09-14 15:21:00 19.86 kg/m2 More murraybostaci Oxygen saturation in 2021-09-14 15:21:00 99 /min More Mendes Arterial blood by Pulse oximetry Systolic blood 2022-02-27 16:23:41 139 mm[Hg] Univer sity of pressure [facility] Diastolic blood 2022-02-27 16:23:41 63 mm[Hg] Unive rsity of pressure [facility] Heart rate 2022-02-27 16:23:41 60 /min [facility] [place] [facility] Body temperature 2022-02-27 16:23:41 37.11 Charlette [facility] Respiratory rate 2022-02-27 16:23:41 20 /min [facility] Body weight 2022-02-27 16:23:41 47.8 kg [facility] BMI 2022-02-27 16:23:41 20.96 kg/m2 [facility] Oxygen saturation in 2022-02-27 16:23:41 97 /min [facility] of Arterial blood by [facility] Pulse oximetry [facility] Center Body height 2022-02-07 18:21:00 151 cm [facility] Procedures Procedure Date / Time Performing Clinician Source Performed COMPREHENSIVE METABOLIC 2022-02-27 13:30:00 Salvador Philip [facility] LESLI [facility] COMPLETE BLOOD COUNT W/ 2022-02-27 13:30:00 Salvador Philip [facility] DIFFERENTIAL Dai HO [facility] er Center MAGNESIUM LEVEL 2022-02-27 13:30:00 [facility] [place] PHOSPHORUS LEVEL 2022-02-27 13:30:00 Salvador Philip [facility] Dai HO [facility] [place] THYROID STIMULATING 2022-02-27 13:30:00 Salvador Philip [facility] HORMONE Dai HO [facility] er Center FREE THYROXINE 2022-02-27 13:30:00 [facility] [place] GLUCOSE LEVEL 2022-02-27 13:30:00 [facility] BLOOD UREA NITROGEN 2022-02-27 13:30:00 Salvador Philip [facility] Dai HO [facility] ELECTROLYTE PANEL 2022-02-27 13:30:00 Salvador Philip [facility] Dai HO [facility] SERUM CREATININE 2022-02-27 13:30:00 [facility] .GLOMERULAR FILTRATION 2022-02-27 13:30:00 Salvador Philip [facility] RATE Dai HO [facility] [place] CALCIUM LEVEL TOTAL 2022-02-27 13:30:00 Salvador Philip [facility] Dai HO [facility] Center ALBUMIN LEVEL 2022-02-27 13:30:00 [facility] ALKALINE PHOSPHATASE 2022-02-27 13:30:00 Salvador Philip [facility] Dai HO [facility] [place] ALANINE AMINOTRANSFERASE 2022-02-27 13:30:00 Salvador Philip [facility] Dai HO [facility] [place] ASPARTATE AMINOTRANSFERASE 2022-02-27 13:30:00 Salvador Philip [facility] Dai HO [facility] er Center TOTAL PROTEIN 2022-02-27 13:30:00 Salvador Philip [place] [facility] Dai HO [facility] FRACTIONATED BILIRUBIN 2022-02-27 13:30:00 Salvador Philip [facility] Dai HO [facility] Results CBC 2022-02-27 13:30:00 [facility] Dai HO [facility] MANUAL DIFFERENTIAL 2022-02-27 13:30:00 Salvador Philip [facility] Dai HO [facility] COVID-19 (SARS-COV-2) 2022-02-11 20:11:00 Salvador Philip [facility] PCR-ASYMPTOMATIC JUAN MIGUEL Sheets MD [facility] PETCT SUBSEQUENT TREATMENT 2022-02-07 20:05:40 [facility] Dai HO [facility] MRI BRAIN W WO CONTRAST 2022-02-04 15:41:00 [facility] SPIROMETRY W/DILATORS, 2022-02-03 19:30:48 Salvador Philip [facility] DLCO AND BODY Dai HO [facility] PLETHSMOGRAPHIC LUNG Center VOLUMES APTT 2022-02-03 18:10:00 [facility] Niecy Sheets MD [facility] PROTHROMBIN TIME 2022-02-03 18:10:00 Salvador Philip [facility] Dai HO [facility] COMPLETE BLOOD COUNT W/ 2022-02-03 18:10:00 Salvador Philip [facility] DIFFERENTIAL Dai HO [facility] COMPREHENSIVE METABOLIC 2022-02-03 18:10:00 Salvador Philip [facility] PANEL Dai HO [facility] Center CORTISOL 2022-02-03 18:10:00 [facility] Dai HO [facility] THYROID STIMULATING 2022-02-03 18:10:00 Salvador Philip [facility] HORMONE Dai HO [facility] HEPATITIS B SURFACE 2022-02-03 18:10:00 Salvador Philip [facility] ANTIGEN, SERUM Dai HO [facility] HEPATITIS C VIRUS ANTIBODY 2022-02-03 18:10:00 Salvador Philip [facility] Dai HO [facility] AMYLASE LEVEL 2022-02-03 18:10:00 [facility] Dai HO [facility] LIPASE LEVEL 2022-02-03 18:10:00 Salvador [facility] Dai HO [facility] GAMMA GLUTAMYL TRANSFERASE 2022-02-03 18:10:00 Salvador Philip [facility] Dai HO [facility] LACTATE DEHYDROGENASE 2022-02-03 18:10:00 Salvador Philip [facility] Dai HO [facility] MAGNESIUM LEVEL 2022-02-03 18:10:00 Salvador [facility] Dai HO [facility] URINALYSIS WITH 2022-02-03 18:10:00 [facility] MICROSCOPIC IF INDICATED Dai HO [facility] Results CBC 2022-02-03 18:10:00 [facility] [place] [facility] Dai HO [facility] MANUAL DIFFERENTIAL 2022-02-03 18:10:00 Salvador Philip [facility] Dai HO [facility] GLUCOSE LEVEL 2022-02-03 18:10:00 [facility] Dai HO [facility] BLOOD UREA NITROGEN 2022-02-03 18:10:00 Salvador Philip [facility] Dai HO [facility] ELECTROLYTE PANEL 2022-02-03 18:10:00 Salvador [facility] Dai HO [facility] SERUM CREATININE 2022-02-03 18:10:00 [facility] D[facility] .GLOMERULAR FILTRATION 2022-02-03 18:10:00 Salvador Philip, [facility] FAITH Dai HO [facility] Center CALCIUM LEVEL TOTAL 2022-02-03 18:10:00 Salvador Philip, [facility] Dai MD [facility] Center ALBUMIN LEVEL 2022-02-03 18:10:00 Salvador [facility] Dai HO [facility] [place] ALKALINE PHOSPHATASE 2022-02-03 18:10:00 Salvador Philip, [facility] Dai MD [facility] [place] ALANINE AMINOTRANSFERASE 2022-02-03 18:10:00 Salvador Philip, [facility] Dai MD [facility] [place] ASPARTATE AMINOTRANSFERASE 2022-02-03 18:10:00 Salvador Philip, [facility] Dai MD [facility] [place] TOTAL PROTEIN 2022-02-03 18:10:00 [facility] Dai HO [facility] [place] FRACTIONATED BILIRUBIN 2022-02-03 18:10:00 Salvador Philip, [facility] Dai MD [facility] [place] URINALYSIS MICROSCOPIC 2022-02-03 18:10:00 Salvador Philip, [facility] Dai MD [facility] EKG, 12-LEAD (SCHEDULED) 2022-02-03 00:00:00 Salvador Philip, [facility] Dai HO [facility] TISSUE SLIDES MATERIAL 2022-01-29 17:43:11 [facility] AP FISH ALK MATERIAL 2022-01-22 23:11:00 Salvador Philip, [facility] REQUEST Dai MD [facility] AP FISH ROS1 MATERIAL 2022-01-22 23:11:00 Salvador Philip, [facility] REQUEST Dai HO [facility] CT VENOGRAM BRAIN 2022-01-04 19:03:00 Sofy Almendarez [facility] Center MRI BRAIN W WO CONTRAST 2022-01-03 15:40:00 Sofy Almendarez [facility] er Center HP MDA LOR MUTATION 2022-01-03 15:20:00 Sofy Almendarez [facility] ANALYSIS PRECISION PANEL MD Kish[facility] HP SOLID TUMOR GENOMIC 2022-01-03 15:20:00 Sofy Almendarez [facility] ASSAY FUSIONS 2018 MD Ramírez cohener INTERPRETATION AND REPORT Center HP LB ROS1 FUSION ANALYSIS 2021-12-27 17:21:00 Sofy Almendarez [facility] COLLECTION, BLOOD [facility] HP LB RET FUSION ANALYSIS 2021-12-27 17:21:00 Sofy Almendarez [facility] COLLECTION, BLOOD [facility] HP LB MET MUTATION 2021-12-27 17:21:00 Sof[facility]arez [facility] ANALYSIS COLLECTION, BLOOD MD [facility] HP LB ERBB2 FULL GENE 2021-12-27 17:21:00 Sofy Almendarez [facility] MUTATION ANALYSIS [facility] COLLECTION, BLOOD Center HP LB EML4/ALK FUSION 2021-12-27 17:21:00 Sofy Almendarez [facility] ANALYSIS COLLECTION, BLOOD MD [facility] HP LB BRAF MUTATION 2021-12-27 17:21:00 Sofy Almendarez [facility] ANALYSIS COLLECTION, BLOOD [facility] NGS BLOOD CONTROL 2021-12-27 17:21:00 Sofy Almendarez [facility] er Center HP LB LIQUID BIOPSY PANEL 2021-12-27 17:21:00 Sofy Almendarez [facility] V1 INTERPRETATION AND MD Jose Angel [facility]eman [facility] AP IHC PD-L1 MATERIAL 2021-12-27 16:44:[address] [facility] REQUEST [facility] er Center AP ROS1 FUSION ANALYSIS 2021-12-27 16:44:06 Sofy Almendarez [facility] MATERIAL REQUEST [facility] AP RET FUSION ANALYSIS 2021-12-27 16:44:06 Sofy Almendarez [facility] MATERIAL REQUEST [facility] AP NTRK3 FUSION 2021-12-27 16:44:06 Sofy Almendarez [facility] ANALYSIS MATERIAL REQUEST [facility] AP NTRK2 FUSION 2021-12-27 16:44:06 Sofy Almendarez [facility] ANALYSIS MATERIAL REQUEST [facility] AP NTRK1 FUSION 2021-12-27 16:44:06 Sofy Almendarez [facility] ANALYSIS MATERIAL REQUEST [facility] AP KRAS MUTATION 2021-12-27 16:44:06 Sofy Almendarez [facility] MATERIAL REQUEST [facility] AP EML4/ALK FUSION 2021-12-27 16:44:[address] [facility] ANALYSIS MATERIAL REQUEST [facility] AP EGFR MUTATION 2021-12-27 16:44:06 Sofy Almendarez [facility] MATERIAL REQUEST [facility] CYTOLOGY IMAGE-GUIDED FNA 2021-12-21 18:05:00 Kaylie Mota [facility] INTERPRETATION [facility] BRONCHOSCOPY WITH EBUS 3 2021-12-21 17:21:00 Kaylie Mota [facility] [place] OR MORE NODES [facility] COVID-19 (SARS-COV-2) 2021-12-20 18:44:00 Kaylie Mota [facility] PCR ASYMPTOMATIC [facility] XR CHEST 2 VW 2021-12-09 16:37:52 Jose Abernathy [facility] IR CHEST XRAY 1 VIEW 2021-12-02 19:53:15 Jennifer Everett [facility] IR CHEST XRAY 1 VIEW 2021-12-02 16:48:48 Jennifer Everett [facility] IR CT GUIDED BIOPSY 2021-12-02 16:40:35 Jose Abernathy [facility] LUNG/MEDIASTINAL [facility] PATHOLOGY BIOPSY 2021-12-02 16:15:00 Jose Abernathy [facility] INTERPRETATION [facility] SPIROMETRY W/DILATORS, 2021-12-01 19:27:05 Jose Abernathy [facility] DLCO AND BODY [facility] PLETHSMOGRAPHIC LUNG Center VOLUMES COVID-19 (SARS-COV-2) 2021-12-01 15:36:00 Jose Abernathy [facility] PCR-ASYMPTOMATIC [facility] [place] EKG, 12-LEAD (SCHEDULED) 2021-12-01 00:00:00 Jose Aber[facility] CRYPTOCOCCAL ANTIGEN, 2021-11-29 23:01:00 Jose Abernathy [facility] SERUM [facility] CRYPTOCOCCAL ANTIGEN, 2021-11-29 23:01:00 Jose Abernathy [facility] SERUM PATH REVIEW [facility] Center COMPREHENSIVE METABOLIC 2021-11-29 23:01:[address] [facility] PANEL [facility] COMPLETE BLOOD COUNT W/ 2021-11-29 23:01:00 Jose Abernathy [facility] DIFFERENTIAL [facility] PROTHROMBIN TIME 2021-11-29 23:01:00 Jose Abernathy [facility] APTT 2021-11-29 23:01:00 Jose Abernathy [facility] HEPATITIS B SURFACE 2021-11-29 23:01:00 Jose Abernathy [facility] ANTIGEN, SERUM [facility] HEPATITIS B CORE ANTIBODY 2021-11-29 23:01:00 Jose Abernathy [facility]IS C VIRUS ANTIBODY 2021-11-29 23:01:00 Jose Abernathy [facility] THYROID STIMULATING 2021-11-29 23:01:00 Jose Abernathy [facility] HORMONE [facility] COCCIDIOIDES ANTIBODY 2021-11-29 23:01:00 Jose Abernathy [facility] HISTOPLASMA ANTIBODY 2021-11-29 23:01:00 Jose Abernathy [facility] SCREEN, SERUM [facility] T-SPOT TUBERCULOSIS 2021-11-29 23:01:00 Jose Abernathy [facility] GLUCOSE LEVEL 2021-11-29 23:01:00 Jose Abernathy [facility] BLOOD UREA NITROGEN 2021-11-29 23:01:00 Jose Abernathy [facility] ELECTROLYTE PANEL 2021-11-29 23:01:00 Jose Abernathy [facility] SERUM CREATININE 2021-11-29 23:01:00 Jose Abernathy [facility] .GLOMERULAR FILTRATION 2021-11-29 23:01:00 Jose Abernathy [facility] CALCIUM LEVEL TOTAL 2021-11-29 23:01:00 Jose Abernathy [facility] ALBUMIN LEVEL 2021-11-29 23:01:00 Jose Abernathy [facility] ALKALINE PHOSPHATASE 2021-11-29 23:01:00 Jose Abernathy [facility] ALANINE AMINOTRANSFERASE 2021-11-29 23:01:[address] [facility] ASPARTATE AMINOTRANSFERASE 2021-11-29 23:01:00 Jose Abernathy [facility] TOTAL PROTEIN 2021-11-29 23:01:00 Jose Abernathy [facility] FRACTIONATED BILIRUBIN 2021-11-29 23:01:00 Jose Abernathy [facility] Results CBC 2021-11-29 23:01:00 Jose Abernathy [facility] MANUAL DIFFERENTIAL 2021-11-29 23:01:00 Jose Abernathy [facility] OSI PET CT SKULL TO MID 2021-11-29 04:06:00 Clay Ahumada [facility] OSI CT CHEST 2021-11-16 07:06:00 Clay Ahumada [facility] OSI BONE DENSITY STUDY 2021-10-28 07:06:00 Clay Ahumada [facility] Plan of Care Planned Activity Planned Date Details Comments Source Future Scheduled 2022-03-03 COVID-19 Vaccination [facility] Test 07:21:24 (#1) [code = COVID-19 MD [facility] Vaccination (#1)] Center Encounters Start End Encounter Admission Attending Care Care Encounter Source Date/Time Date/Time Type Type Clinicians Facility Department ID 2021-11-21 Outpatient SYSTEM, LEONA DELGADILLO [id number] 15:33:59 PROVIDER Darryl wiseman 2022-02-28 2022-02-28 Orders Enzo 1.2.840.1 [id number] [facility] 00:00:00 00:00:00 Only Tammy [id number] ity of 3.412.2.7 [place] .3.434277 .8 Jose Angel wiseman [facility] 2022-02-27 2022-02-27 [facility] 1.2.840.1 [id number] [facility] 06:45:00 23:59:00 Encounter Tone Philip50.1.1 it y of Dai 3.412.2.7 [place] .3.490884 .8 Jose Angel wiseman [facility] 2022-02-27 2022-02-27 Outpatient [facility] LEONA DELGADILLO [id number] 06:45:00 23:59:00 Darryl PHILIP 2022-02-27 2022-02-27 Outpatient [facility] LEONA DELGADILLO [id number] 11:03:26 17:49:00 Darryl PHILIP 2022-02-27 2022-02-27 [facility] Dai Philip 1.2.840.1 [id number] [facility] 11:00:00 17:49:00 Finn Gifford 50011.1.1 ity of 3.412.2.7 [place] .3.483281 MD Mcucrdy [facility] 2022-02-27 2022-02-27 Office Salvador 1.2.840.1 [id number] Univers 09:40:00 10:33:36 Visit Xander 39718.1.1 ity of Dai 3.412.2.7 [place] .3.555327 MD Lott8 [facility] 2022-02-27 2022-02-27 Outpatient [facility] [id number] 09:10:28 10:33:36 Darryl PHILIP 2022-02-27 2022-02-27 Travel 1.2.840.1 [id number] Univers 00:00:00 00:00:00 [id number] 350.1.13.41 ity of 3.412.2.7 [place]7.3.698 [place] .3.772913 084.8 MD Lott8 [facility] 2022-02-23 2022-02-23 Orders Tanesha, 1.2.840.1 [id number] Univers 00:00:00 00:00:00 Only Sofy Brizuela 95067.1.1 ity of 3.412.2.7 [place] .3.560462 MD Mccurdy [facility] 2022-02-23 2022-02-23 Telephone Tanesha, 1.2.840.1 [id number] Univers 00:00:00 00:00:00 Sofy Brizuela 68389.1.1 ity of 3.412.2.7 [place] .3.226794 MD Lott8 [facility] 2022-02-23 2022-02-23 Orders Tanesha, 1.2.840.1 [id number] Univers 00:00:00 00:00:00 Only Sofy Brizuela [id number] ity of 3.412.2.7 [place] .3.168360 MD Lott8 [facility] 2022-02-23 2022-02-23 Orders Hollingsworth, 1.2.840.1 [id number] Univers 00:00:00 00:00:00 Only Tra 70121.1.1 ity of 3.412.2.7 [place] .3.026579 MD Lott8 [facility] 2022-02-22 2022-02-22 Outpatient MORE HOLLOWAY MORE [id number] More 10:00:00 10:00:00 BRINA hooper 2022-02-17 2022-02-17 Orders Juan Pablo, 1.2.840.1 [id number] Univers 00:00:00 00:00:00 Only Ambreen Newberry 88375.1.1 ity of 3.412.2.7 [place] .3.565047 MD Lott8 [facility] 2022-02-17 2022-02-17 Orders John, 1.2.840.1 [id number] Univers 00:00:00 00:00:00 Only Franky 31283.1.1 ity of 3.412.2.7 [place] .3.928994 MD Lott8 [facility] 2022-02-16 2022-02-16 Outpatient [facility] MDA MDA [id number] 09:54:10 09:54:10 Darryl PHILIP 2022-02-15 2022-02-15 Orders Pako, 1.2.840.1 [id number] Univers 00:00:00 00:00:00 Only Cyndy Flores 16188.1.1 i ty of 3.412.2.7 [place] .3.821115 MD Lott8 [facility] 2022-02-13 2022-02-[address] [facility] MDA MDA [id number] 10:35:04 10:35:04 Darryl PHILIP 2022-02-13 2022-02-13 Telephone Balaji 1.2.840.1 [id number] Univers 00:00:00 00:00:00 Indira Wiseman 02297.1.1 it y of 3.412.2.7 [place] .3.101959 MD Lott8 [facility] 2022-02-11 2022-02-11 Clinical Abreu Muriel 1.2.840.1 [id number] Univers 15:30:00 15:45:00 Support Nestor Mariama 72459.1.1 ity of 3.412.2.7 [place] .3.261640 MD Lott8 [facility] 2022-02-11 2022-02-11 Outpatient KINDRA ABREU MDA [facility] [id number] 15:05:33 15:05:33 MURIEL wiseman 2022-02-11 2022-02-11 Travel 1.2.840.1 [id number] Univers 00:00:00 00:00:00 [id number] 350.1.13.41 ity of 3.412.2.7 [place]7.3.698 [place] .3.145913 084.8 .8 [facility] 2022-02-08 2022-02-08 Orders Tanesha, 1.2.840.1 [id number] Univers 00:00:00 00:00:00 Only Sofy Brizuela [id number] ity of 3.412.2.7 [place] .3.121089 MD Lott8 [facility] 2022-02-07 2022-02-07 Ancillary Salvador 1.2.840.1 [id number] Univers 13:00:00 15:30:00 Procedure Xander 29161.1.1 it y of Dai 3.412.2.7 [place] .3.334460 MD Lott8 [facility] 2022-02-07 2022-02-07 Outpatient EL SALVADOR [facility] [id number] 12:33:45 12:33:45 Darryl PHILIP 2022-02-07 2022-02-07 Travel 1.2.840.1 [id number] [id number] Univers 00:00:00 00:00:00 [id number] 350.1.13.41 ity of 3.412.2.7 2.2[place]7.3.698 [place] .3.289691 084.8 MD Lott8 [facility] 2022-02-07 2022-02-07 Orders Abreu, 1.2.840.1 [id number] Univers 00:00:00 00:00:00 Only Muriel [id number] ity of 3.412.2.7 [place] .3.615367 MD Mccurdy [facility] 2022-02-04 2022-02-04 [facility] 1.2.840.1 [id number] Univers 09:15:00 11:00:00 Procedure Xander 64698.1.1 it y of Dai 3.412.2.7 [place] .3.740910 MD Mccurdy [facility] 2022-02-04 2022-02-[address] [facility] MDA [id number] [place] 09:20:43 09:20:43 Darryl PHILIP 2022-02-04 2022-02-04 [facility] 1.2.840.1 [id number] [id number] Univers 00:00:00 00:00:00 82339.1.1 350.1.13.41 ity of 3.412.2.7 [place].3.698 [place] .3.6224[place] 084.8 MD [facility]22-02-03 2022-02-03 [facility] 1.2.840.1 [id number] [facility] [place] [facility] 13:00:00 23:59:00 Encounter Xander 59110.1.1 it y of Dai 3.412.2.7 [place] .3.232270 MD [facility] 2022-02-03 2022-02-[address] [facility] MDA [id number] MD 13:00:00 23:59:00 Darryl PHILIP 2022-02-03 2022-02-03 [facility] 1.2.840.1 [id number] [facility] [place] [facility] 12:29:29 12:59:00 Encounter Xander, 10271.1.1 it y of Dai 3.412.2.7 [place] .3.900192 MD Mccurdy [facility] 2022-02-03 2022-02-03 Outpatient [facility] [id number] MD 12:29:29 12:59:00 Darryl PHILIP 2022-02-03 2022-02-03 [facility] 1.2.840.1 [id number] [facility] [place] [facility] 12:00:16 12:28:00 Encounter Xander 24252.1.1 it y of Dai 3.412.2.7 [place] .3.184943 MD Mccurdy [facility] 2022-02-03 2022-02-03 Outpatient [facility] [id number] OR 12:00:16 12:28:00 Darryl PHILIP 2022-02-03 2022-02-03 Orders Lizao, 1.2.840.1 [id number] Univers 00:00:00 00:00:00 Only Franky 56456.1.1 ity of 3.412.2.7 [place] .3.344374 MD Mccurdy [facility] 2022-02-03 2022-02-03 Orders Abreu, 1.2.840.1 [id number] Univers 00:00:00 00:00:00 Only Muriel 97397.1.1 ity of 3.412.2.7 [place] .3.486855 MD Mccurdy [facility] 2022-02-03 2022-02-03 Orders Sharifauwo, 1.2.840.1 [id number] Univers 00:00:00 00:00:00 Only Franky 18232.1.1 ity of 3.412.2.7 [place] .3.143988 MD Mccurdy [facility] 2022-02-03 2022-02-03 Travel 1.2.840.1 1.2.230.263 [id number] Univers 00:00:00 00:00:00 39254.1.1 350.1.13.41 ity of 3.412.2.7 [place].3.698 [place].003897 084.8 MD Mccurdy [facility] 2022-02-02 2022-02-02 Outpatient EL SALVADOR [facility] [id number] 14:28:00 14:28:00 Darryl PHILIP 2022-02-01 2022-02-01 Orders Oedwino, 1.2.840.1 [id number] Univers 00:00:00 00:00:00 Only Franky 58770.1.1 ity of 3.412.2.7 [place] .3.932871 MD Mccurdy [facility] 2022-02-01 2022-02-01 Orders Lizao, 1.2.840.1 [id number] Univers 00:00:00 00:00:00 Only Franky 77493.1.1 ity of 3.412.2.7 [place] .3.290606 MD [facility]urdy [facility] 2022-01-31 2022-01-31 Orders Lugo, 1.2.840.1 [id number] Univers 00:00:00 00:00:00 Only Giorgi 54144.1.1 ity of Van 3.412.2.7 [place] .3.293223 MD [facility]urdy [facility] 2022-01-31 2022-01-31 Orders Orexwuwo, 1.2.840.1 [id number] Univers 00:00:00 00:00:00 Only Franky 32397.1.1 ity of 3.412.2.7 [place] .3.021276 MD [facility]urdy [facility] 2022-01-31 2022-01-31 Orders Tanesha, 1.2.840.1 [id number] Univers 00:00:00 00:00:00 Only Sofy Brizuela 54081.1.1 ity of 3.412.2.7 [place] .3.152409 MD [facility]urdy [facility] 2022-01-26 2022-01-26 Orders Serrao, 1.2.840.1 [id number] Univers 00:00:00 00:00:00 Only Elana 62894.1.1 it y of 3.412.2.7 [place] .3.489572 MD [facility]urdy [facility] 2022-01-24 2022-01-24 Office Valise 1.2.840.1 [id number] Univers 10:20:00 12:33:32 Visit Xander 03004.1.1 ity of Dai 3.412.2.7 [place] .3.251152 MD Mccurdy [facility] 2022-01-24 2022-01-24 Outpatient EL SALVADOR [facility] MDA [id number] MD 09:53:19 12:33:32 Darryl PHILIP 2022-01-24 2022-01-24 Orders Brenden, 1.2.840.1 [id number] Univers 00:00:00 00:00:00 Only Sana Liu 95779.1.1 ity of 3.412.2.7 [place] .3.435426 MD [facility]urdy [facility] 2022-01-24 2022-01-24 Travel 1.2.840.1 1.2.828.872 6956 [id number] Univers 00:00:00 00:00:00 76365.1.1 350.1.13.41 ity of 3.412.2.7 [place]7.3.698 [place] .3.181968 084.8 MD Mccurdy [facility] 2022-01-22 2022-01-22 Orders Salvador 1.2.840.1 [id number] Univers 00:00:00 00:00:00 Only Xander 53440.1.1 ity of Dai 3.412.2.7 [place] .3.257076 MD [facility] 2022-01-19 2022-01-19 Orders Tanesha, 1.2.840.1 [id number] Univers 00:00:00 00:00:00 Only Sofy Brizuela 69312.1.1 ity of 3.412.2.7 [place] .3.096347 .8 [facility] 2022-01-18 2022-01-18 Outpatient DASIADAVIDLOVE [facility] [id number] 19:05:08 19:05:08 Darryl PHILIP 2022-01-13 2022-01-13 Telephone Nubia, 1.2.840.1 [id number] Univers 00:00:00 00:00:00 Dany Newberry 92295.1.1 ity of 3.412.2.7 [place] .3.395886 .8 [facility] 2022-01-11 2022-01-11 Outpatient DASIADAVIDLOVE [facility] [id number] 18:08:28 18:08:28 Darryl PHILIP 2022-01-09 2022-01-09 Telemedici Salvador 1.2.840.1 [id number] [facility] [place] [facility] 11:20:00 11:40:00 leidy Philip 23715.1.1 ity of Dai 3.412.2.7 [place] .3.445211 .8 [facility] 2022-01-09 2022-01-09 Orders Brandyn, 1.2.840.1 [id number] [facility] [place] [facility] 00:00:00 00:00:00 Only Susie 25061.1.1 ity of 3.412.2.7 [place] .3.355247 .8 [facility] 2022-01-05 2022-01-05 Outpatient KINDRA TONY [facility] MDA [id number] 10:31:22 10:31:22 ISMAEL wiseman 2022-01-05 2022-01-05 Telephone Tanesha, 1.2.840.1 [id number] Univers 00:00:00 00:00:00 Sofy Brizuela 82580.1.1 ity of 3.412.2.7 [place] .3.027173 MD [facility]ccurdy [facility] 2022-01-04 2022-01-04 Ancillary Tanesha, 1.2.840.1 [id number] [facility] [place] [facility] 14:20:00 15:45:00 Procedure Sofy Brizuela 54532.1.1 ity of 3.412.2.7 [place] .3.670879 MD Lott8 [facility] 2022-01-04 2022-01-04 Outpatient EL TANESHA, MDA MDA [id number] 12:37:55 12:37:55 SFOY wiseman 2022-01-04 2022-01-04 Travel 1.2.840.1 1.2.973.534 8871 [id number] [facility] [place] [facility] 00:00:00 00:00:00 71639.1.1 350.1.13.41 ity of 3.412.2.7 2.[place].7.3.698 [place] .3.746604 084.8 MD Lott8 [facility] 2022-01-03 2022-01-03 Outpatient EL TANESHA, MDA MDA [id number] OR 10:20:00 23:59:00 SOFY wiseman 2022-01-03 2022-01-03 [facility] Wade Isaías 1.2.840 .1 [id number] [facility] [place] [facility] 10:20:00 23:59:00 Encounter Sofy Almendarez 61643.1.1 ity of 3.412.2.7 [place] .3.867388 MD Mccurdy [facility] 2022-01-03 2022-01-03 Ancillary Tanesha, 1.2.840.1 [id number] [facility] [place] [facility] 09:15:00 11:00:00 Procedure Sofy Brizuela 88142.1.1 ity of 3.412.2.7 [place] .3.308958 MD Mccurdy [facility] 2022-01-03 2022-01-03 Outpatient EL TANESHA, MDA MDA [id number] 08:22:32 08:22:32 SOFY wayo n 2022-01-03 2022-01-03 Orders Sukh-Anderson 1.2.840.1 [id number] Univers 00:00:00 00:00:00 Only Holley marroquin 15137.1.1 ity of 3.412.2.7 [place] .3.897425 MD Lott8 [facility] 2022-01-03 2022-01-03 Orders Tanesha, 1.2.840.1 [id number] Univers 00:00:00 00:00:00 Only Sofy E 05422.1.1 ity of 3.412.2.7 [place] .3.311548 MD Lott8 [facility] 2022-01-03 2022-01-03 Travel 1.2.840.1 1.2.449.394 2546 [id number] Univers 00:00:00 00:00:00 64274.1.1 350.1.13.41 ity of 3.412.2.7 [place]7.3.698 [place] .3.668002 084.8 MD Lott8 [facility] 2021-12-28 2021-12-28 Outpatient KINDRA ABERNATHY MDA MDA [id number] 19:32:18 19:32:18 JOSE wiseman 2021-12-27 2021-12-27 Outpatient KINDRA ALMENDAREZ MDA MDA [id number] 12:12:06 23:59:00 SOFY wiseman 2021-12-27 2021-12-27 [facility] Tanesha, 1.2.840.1 [id number] [facility] [place] [facility] 12:12:06 23:59:00 Encounter Sofy Brizuela 40339.1.1 ity of 3.412.2.7 [place] .3.459119 MD Lott8 [facility] 2021-12-27 2021-12-27 Outpatient KINDRA FRANCO MDA MDA [id number] 11:09:20 11:51:41 Darryl PHILIP 2021-12-27 2021-12-27 Consult Salvador 1.2.840.1 [id number] [facility] [place] [facility] 10:40:00 11:51:41 Negjan, 43833.1.1 ity of Dai 3.412.2.7 [place] .3.278010 MD Lott8 [facility] 2021-12-27 2021-12-27 Luz Hernadez, 1.2.840.1 [id number] [facility] [place] [facility] 10:00:00 11:19:12 Warren 90450.1.1 ity of 3.412.2.7 [place] .3.660817 MD Lott8 [facility] 2021-12-27 2021-12-27 Outpatient KINDRA HERNADEZ MDA MDA [id number] 09:26:53 11:19:12 WARREN wiseman 2021-12-27 2021-12-27 Orders Ramses 1.2.840.1 [id number] Univers 00:00:00 00:00:00 Only Holley marroquin 71037.1.1 ity of 3.412.2.7 [place] .3.652068 MD Lott8 [facility] 2021-12-27 2021-12-27 Travel 1.2.840.1 1.2.000.980 1275 [id number] Univers 00:00:00 00:00:00 05702.1.1 350.1.13.41 ity of 3.412.2.7 2.[place]7.3.698 [place] .3.591189 084.8 MD Lott8 [facility] 2021-12-23 2021-12-23 Telephone Ca, 1.2.840.1 [id number] Univers 00:00:00 00:00:00 Pedro Radha 46258.1.1 it y of 3.412.2.7 [place] .3.047207 MD Lott8 [facility] 2021-12-21 2021-12-21 Outpatient KINDRA ABERNATHY MDA MDA [id number] 17:49:34 17:49:34 JOSE wiseman 2021-12-21 2021-12-21 Outpatient EL NAKUL, [facility] [id number] 10:29:00 14:27:00 KAYLIE Andrews [facility] 2021-12-21 2021-12-21 Hospital Nakul, 1.2.840.1 [id number] Univers 10:29:00 14:27:00 Encounter Kaylie 41489.1.1 it y of 3.412.2.7 [place] .3.350565 MD Mccurdy [facility] 2021-12-21 2021-12-21 Anesthesia Magdaleno, 1.2.840.1 [id number] Univers 12:21:00 13:31:00 Event Crystal 86912.1.1 ity of 3.412.2.7 [place] .3.422372 MD Mccurdy [facility] 2021-12-21 2021-12-21 Surgery Nakul, 1.2.840.1 [id number] Univers 12:00:00 13:30:00 Kaylie 85981.1.1 ity of 3.412.2.7 [place] .3.659011 MD Mccurdy [facility] 2021-12-21 2021-12-21 Orders Ca, 1.2.840.1 [id number] [id number] Univers 00:00:00 00:00:00 Only Pedro Isam 40056.1.1 it y of 3.412.2.7 [place] .3.719224 MD Mccurdy [facility] 2021-12-21 2021-12-21 Travel 1.2.840.1 1.2.996.596 9948 [id number] Univers 00:00:00 00:00:00 02571.1.1 350.1.13.41 ity of 3.412.2.7 2.2.7.3.698 [place] .3.764376 084.8 MD Mccurdy [facility] 2021-12-20 2021-12-20 Anesthesia Mcbride, 1.2.840.1 [id number] Univers 23:59:59 23:59:59 Event Jennie Liu 73414.1.1 ity of 3.412.2.7 [place] .3.491175 .8 [facility] 2021-12-20 2021-12-20 Luz Mota 1.2.840.1 [id number] Univers 15:00:00 15:27:35 Kaylie 24924.1.1 ity of 3.412.2.7 [place] .3.642742 .8 [facility] 2021-12-20 2021-12-20 Outpatient KINDRA MOTA MDA MDA [id number] 14:01:53 15:27:35 KAYLIE wiseman 2021-12-20 2021-12-20 Clinical Tammy Lopez 1.2.840.1 [id number] [facility] [place] [facility] 14:15:00 14:15:00 Support Yu Hawk 69772.1.1 ity of 3.412.2.7 [place] .3.523907 .8 [facility] 2021-12-20 2021-12-20 Outpatient KINDRA LOPEZ MDA [facility] [id number] 13:37:58 13:46:21 TAMMY wiseman 2021-12-20 2021-12-20 HAEZL Abernathy 1.2.840.1 [id number] Univers 09:30:00 10:00:00 Nichole Fay 00138.1.1 ity of ts 3.412.2.7 [place] .3.410421 .8 [facility] 2021-12-20 2021-12-20 Outpatient KINDRA ABERNATHY MDA [facility] [id number] MD 07:54:39 07:54:39 JOSE wiseman 2021-12-20 2021-12-20 Outpatient RADIOLOGY, [facility] [id number] More 00:00:00 00:00:00 DEPT Seybol rufus 2021-12-20 2021-12-20 Travel 1.2.840.1 1.2.361.212 4790 [id number] Univers 00:00:00 00:00:00 33000.1.1 350.1.13.41 ity of 3.412.2.7 2.[place].7.3.698 [place] .3.002755 084.8 MD Mccurdy [facility] 2021-12-14 2021-12-14 Outpatient KINDRA ABERNATHY MDA [facility] [id number] MD 17:26:51 17:26:51 JOSE wiseman 2021-12-14 2021-12-14 Outpatient KINDRA ABERNATHY [facility] [id number] 17:26:44 17:26:44 JOSE wiseman 2021-12-12 2021-12-12 Telephone Ostmervat, 1.2.840.1 [id number] [id number] Univers 00:00:00 00:00:00 Jose Fay 41301.1.1 ity of 3.412.2.7 [place] .3.839414 MD Mccurdy [facility] 2021-12-09 2021-12-09 Ancillary Josemanuel 1.2.840.1 [id number] [id number] [facility] [place] [facility] 11:30:00 11:45:00 Procedure Jose Fay 40744.1.1 i ty of 3.412.2.7 [place] .3.202864 MD Mccurdy [facility] 2021-12-09 2021-12-09 Outpatient KINDRA ABERNATHY [facility] [id number] MD 11:13:23 11:13:23 JOSE wiseman 2021-12-09 2021-12-09 Documentat Shyanne Muñiz 1.2.840.1 [id number] [facility] [place] [facility] 00:00:00 00:00:00 ion 62914.1.1 ity of 3.412.2.7 [place] .3.368242 MD Mccurdy [facility] 2021-12-09 2021-12-09 Prep for Enzo 1.2.840.1 [id number] Univers 00:00:00 00:00:00 Surgery Tammy 06658.1.1 ity of 3.412.2.7 [place] .3.840051 MD Mccurdy [facility] 2021-12-09 2021-12-09 Travel 1.2.840.1 1.2.450.660 1659 [id number] [facility] [place] [facility] 00:00:00 00:00:00 56093.1.1 350.1.13.41 ity of 3.412.2.7 2.2.7.3.698 [place] .3.565524 084.8 MD Mccurdy [facility] 2021-12-08 2021-12-08 Telephone Jason Abernathy.2.840.1 [id number] Univers 00:00:00 00:00:00 Jose Fay 54565.1.1 ity of 3.412.2.7 [place] .3.843154 MD [address] [place] [address] 2021-12-02 2021-12-02 [facility] 1.2.840.1 [id number] [facility] [place] [facility] 11:51:30 23:59:00 Encounter 61378.1.1 it y of 3.412.2.7 [place] .3.632690 MD Mccurdy [facility] 2021-12-02 2021-12-02 [facility] 1.2.840.1 [id number] Univers 11:40:16 11:50:00 Encounter 94386.1.1 it y of 3.412.2.7 [place] .3.331206 MD Mccurdy [facility] 2021-12-02 2021-12-02 [facility] Jose Abernathy.2.840.1 [id number] Univers 09:36:02 11:39:00 Encounter Jason De Jesus 22692.1.1 ity of 3.412.2.7 [place] .3.913795 MD Mccurdy [facility] 2021-12-02 2021-12-02 Travel 1.2.840.1 1.2.838.735 9339 [id number] Univers 00:00:00 00:00:00 68054.1.1 350.1.13.41 ity of 3.412.2.7 2.2.7.3.698 [place] .3.702428 084Kaylie8 MD Mccurdy [facility] 2021-12-012021-12-01 [facility], 1.2.840.1 [id number] [facility] [place] [facility] 11:56:09 23:59:00 Encounter Jose Fay 40067.1.1 i ty of 3.412.2.7 [place] .3Kayile375442 MD Mccurdy [facility] 2021-12-01 2021-12-01 [facility] 1.2.840.1 [id number] [facility] [place] [facility] 11:55:37 11:55:37 Encounter Jose Fay 83062.1.1 i ty of 3.412.2.7 [place] .3Kaylie293331 MD Lott8 [facility] 2021-12-01 2021-12-01 [facility] Jose Fay 1.2.840.1 [id number] Univers 09:28:22 11:54:00 Encounter Ella Adame 81109.1.1 ity of 3.412.2.7 [place] .3.818278 MD Lott8 [facility] 2021-12-01 2021-12-01 Clinical Ella Adame 1.2.840.1 [id number] Univers 11:00:00 11:06:04 Support Sandy Chowdhury 37579.1.1 ity of 3.412.2.7 [place] .3Kaylie409969 MD Mccurdy [facility] 2021-12-01 2021-12-01 Outpatient MORE AHUMADA [id number] More 00:00:00 00:00:00 CLAY hooper 2021-12-01 2021-12-01 Orders Toña, 1.2.840.1 [id number] Univers 00:00:00 00:00:00 Only Olimpia Ferris 92208.1.1 ity of 3.412.2.7 [place] .3.953681 MD Mccrudy [facility] 2021-12-01 2021-12-01 Travel 1.2.840.1 1.2.534.862 4359 [id number] Univers 00:00:00 00:00:00 99107.1.1 350.1.13.41 ity of 3.412.2.7 2.2.7.3.698 [place] .3.552664 084.8 MD Mccurdy [facility] 2021-11-30 2021-11-30 Orders Adame, 1.2.840.1 [id number] Univers 00:00:00 00:00:00 Only Ella 84443.1.1 ity of 3.412.2.7 [place] .3.496505 MD Mccurdy [facility] 2021-11-29 2021-11-29 Hospital [facility], 1.2.840.1 [id number] Univers 17:42:45 23:59:00 Encounter Jose Fay 55087.1.1 i ty of 3.412.2.7 [place] .3.664942 MD Mccurdy [facility] 2021-11-29 2021-11-29 Ancillary Josemanuel, 1.2.840.1 [id number] Univers 21:50:00 21:55:00 Procedure Jose Fay 35306.1.1 i ty of 3.412.2.7 [place] .3.260929 MD Mccurdy [facility] 2021-11-29 2021-11-29 Office [facility], 1.2.840.1 [id number] Univers 15:00:00 17:34:37 Visit Jose Fay 24647.1.1 ity of 3.412.2.7 [place] .3.535926 MD Mccurdy [facility] 2021-11-29 2021-11-29 Travel 1.2.840.1 1.2.234.656 5607 [id number] Univers 00:00:00 00:00:00 15623.1.1 350.1.13.41 ity of 3.412.2.7 2.2.7.3.698 [place] .3.292452 084.8 MD Mccurdy [facility] 2021-11-28 2021-11-28 Outpatient MORE FLOWERS [id number] More 15:00:00 15:00:00 Hermann hooper 2021-11-28 2021-11-28 Outpatient MORE FLOWERS [id number] More 14:00:00 14:00:00 Seybol d 2021-11-25 2021-11-25 NPR 1.2.840.1 [id number] Univers 14:30:00 14:30:00 17782.1.1 ity of 3.412.2.7 [place] .3.129096 .8 [facility] 2021-11-23 2021-11-23 Ancillary 1.2.840.1 [id number] [id number] [facility] [place] [facility] 02:10:00 02:15:00 Procedure 82340.1.1 it y of 3.412.2.7 [place] .3.860214 MD Lott8 [facility] 2021-11-23 2021-11-23 Ancillary 1.2.840.1 [id number] [id number] Univers 02:05:00 02:10:00 Procedure 65904.1.1 it y of 3.412.2.7 [place] .3.015712 MD Lott8 [facility] 2021-11-23 2021-11-23 Outpatient MDA MDA [id number] 02:05:55 02:05:55 [facility] 2021-11-23 2021-11-23 Outpatient EL MDA MDA [id number] 02:05:52 02:05:52 Darryl [facility] 2021-11-22 2021-11-22 Orders Shaista, 1.2.840.1 [id number] Univers 00:00:00 00:00:00 Only Latira 14742.1.1 ity of 3.412.2.7 [place] .3.098704 MD Lott8 [facility] 2021-11-17 2021-11-17 Travel 1.2.840.1 1.2.764.291 8058 [id number] Univers 00:00:00 00:00:00 59545.1.1 350.1.13.41 ity of 3.412.2.7 2.2.7.3.698 [place] .3.197991 084.8 .8 [facility] 2021-11-17 2021-11-17 Telephone Valentin, 1.2.840.1 [id number] [id number] Univers 00:00:00 00:00:00 Tristen 08814.1.1 i ty of S 3.412.2.7 [place] .3.727360 .8 [facility] 2021-11-16 2021-11-16 Outpatient MORE FLOWERS [id number] More 10:45:00 10:45:00 Seybol d 2021-11-16 2021-11-16 Outpatient LAB39 [facility]OW[facility] [id number] More 10:15:00 10:15:00 Seybol d 2021-11-16 2021-11-16 Office WILDER Holloway 1.2.840.114 [id number] More 09:30:00 10:00:00 Visit [facility] 350.1.13.13 Se ybold 1.2.7.2.686 [id number] 2021-11-16 2021-11-16 Outpatient MORE AHUMADA [id number] More 00:00:00 00:00:00 CLAY Seybol d 2021-10-28 2021-10-28 Outpatient MORE BAUMANN [id number] More 10:00:00 10:00:00 FATUMA Seybol d 2021-10-28 2021-10-28 Outpatient [facility] [id number] More 09:00:00 09:00:00 Seybol d 2021-10-28 2021-10-28 Outpatient MORE BARAKAT [id number] More 00:00:00 00:00:00 LEODAN Seybol d 2021-10-17 2021-10-17 Outpatient [facility] [id number] More 10:00:00 10:00:00 Seybol d 2021 2021 Office KEENA AHUMADA 1.2.840.114 [id number] More 10:30:00 10:30:00 Visit [facility] 350.1.13.13 Se ybold 1.2.7.2.686 [id number] 2021-09-27 2021-09-27 Outpatient MORE FLOWERS [id number] More 15:00:00 15:00:00 Seybol d 2021-09-19 2021-09-19 Outpatient MORE BARAKAT [id number] More 00:00:00 00:00:00 LEODAN Seybol d 2021-09-14 2021-09-14 Outpatient LAB90 MORE MORE [id number] More 11:50:00 11:50:00 Seybol d 2021-09-14 2021-09-14 Office Odin Barakat 1.2.840.114 [id number] More 10:30:00 11:30:00 Visit Leodan Gary 350.1.13.13 Se ybold 1.2.7.2.686 [id number] 2021-07-13 2021-07-13 Outpatient MORE BARAKAT MORE [id number] More 11:00:00 11:00:00 LEODAN Seybol d 2021-07-12 2021-07-12 Outpatient MORE BOWER MORE [id number] More 00:00:00 00:00:00 SAMMIE hooper Results Test Description Test Time Test Comments Results Result Comments Source Free T4 2022-02-27 14:24:54 Test Item Value Reference Range Interpretation Comme nts T4 Free (test code = 3024-7) 1.10 ng/dL 0.93-1.70 [facility]50 Test Item Value Reference Range Interpretation Comments TSH (test code = 1.56 See_Comment [Automated message] The 69644-0) system which ge nerated this result transmit mariah reference range : 0.27 - 4.20 mcunit/mL. The reference range was not used to interpr et this result as keiko l/abnormal. [facility] HospitalFractionated [id number] 14:23:40 Test Item Value Reference Range Interpretation Comments Bili Total (test 0.4 mg/dL See_Comment Indocyanine Green (ICG) code = 1975-2) may cause fal sely elevated biliru bin results. Total and direct bilirubin must not be measured from s amples containing indo cyanine green. False el evation of total bilirubin can be seen in patient s with IgG concentrations above 28 g/L. [Automated message] The system [employer] generated this result transmitted ref erence range: <=1.2. T he reference range was not used to interpr et this result as normal/abnormal . Bili Direct (test <0.2 See_Comment Indocyanin e Green (ICG) code = 1967-) may cause fal sely elevated biliru bin results. Total and direct bilirubin must not be measured from s amples containing indo cyanine green. [Automat ed message] The sy stem which generated this result transmitted ref erence range: <=0.3 mg /dL. The reference range was not used to interpr et this result as normal/abnormal . Bili Indirect (test See Note 0.0-0.9 Unable t o calculate code = 1970-) Indirect Bili umanzor result due to some par ameters are outside rep ortable range [facility] 2022-02-27 14:23:38 Test Item Value Reference Range Interpretation Comments eGFR-AA (test code = 51 See_Comment L Normal eGFR: >= 60 84026-6) mL/min/1.73 m2N ote: The eGFR is mariya culated using the CKD-E PI equation. The e GFR declines with a ge. eGFR <60 mL/min /1.73 m2 is considere d as "decreased". Th is equation should only be used for pat ients 18 and older. According to th e [employer]'s Ki dney Disease Outcome Quality Initiat joann (KDOQI) classif ication and 2012 Kidney Disease Improvi ng Global Outcomes (KDIGO) Clinica l Practice Guidel ine, the stage of CK D should be categ orized based on estima mariah GFR. Stage Desc ription GFR mL/min/1.73 m21 Normal or high GFR >=902 Mildly de creased GFR 60-893a Mil dly to moderately decr eased GFR 45-593b Mod erately to severely dec reased GFR 30-444 Yadira rely decreased GFR 1 5-295 Kidney failure <15 [Automated mess age] The system [employer] generated this result transmitted ref erence range: >=60 mL/min/1.73 sq. m. The reference range was not used to int erpret this result as normal/abnormal . eGFR-DANIEL (test code = 44 See_Comment L Normal eGFR: >= 60 70300-7) mL/min/1.73 m2N ote: The eGFR is mariya culated using the CKD-E PI equation. The e GFR declines with a ge. eGFR <60 mL/min /1.73 m2 is considere d as "decreased". Th is equation should only be used for pat ients 18 and older. According to th e [employer]'s Ki dney Disease Outcome Quality Initiat joann (KDOQI) classif ication and 2012 Kidney Disease Improvi ng Global Outcomes (KDIGO) Clinica l Practice Guidel ine, the stage of CK D should be categ orized based on estima mariah GFR. Stage Desc ription GFR mL/min/1.73 m21 Normal or high GFR >=902 Mildly de creased GFR 60-893a Mil dly to moderately decr eased GFR 45-593b Mod erately to severely dec reased GFR 30-444 Yadira rely decreased GFR 1 5-295 Kidney failure <15 [Automated mess age] The system [employer] generated this result transmitted ref erence range: >=60 mL/min/1.73 sq. m. The reference range was not used to int erpret this result as normal/abnormal . Lab Interpretation Abnormal (test code = 64016-4) [facility]Magnesium [id number] 14:23:36 Test Item Value Reference Range Interpretation Comments Magnesium (test code = 21047-2) 2.4 mg/dL 1.6-2.6 [facility]Total [id number] 14:23:35 Test Item Value Reference Range Interpretation Comments Total Protein (test code = 2885-2) 7.5 g/dL 6.4-8.3 [facility] HospitalAlkaline [id number] 14:23:34 Test Item Value Reference Range Interpretation Comments Alk Phos (test code = 6768-6) 91 U/L 35-104 [facility] HospitalPhosphorus [id number] 14:23:33 Test Item Value Reference Range Interpretation Comments Phosphorus (test code = 2777-1) 3.6 mg/dL 2.5-4.5 [facility] HospitalAlbumin [id number] 14:23:32 Test Item Value Reference Range Interpretation Comments Albumin Lvl (test code 4.6 See_Comment [Aut omated message] The = 3041) system which ge nerated this result tra nsmitted reference range : 3.5 - 5.2 gm/dL. The refe rence range was not used to interpret this result as normal/abnormal . [facility] HospitalCalcium [id number] 14:23:31 Test Item Value Reference Range Interpretation Comments Calcium Lvl (test code = 03881-6) 10.9 mg/dL 8.4-10.2 H Lab Interpretation (test code = Abnormal 10511-5) [facility] HospitalAspartate Aminotransferase 2022-02-27 14:23:30 Test Item Value Reference Range Interpretation Comments AST (test code = 22 U/L See_Comment [Automated message] The 1920-01) system which ge nerated this result transmit mariah reference range : <=32. The reference range was not used to interpr et this result as keiko l/abnormal. [facility] HospitalALT2022-09-12 14:23:29 Test Item Value Reference Range Interpretation Comments ALT (test code = 13 U/L See_Comment [Automated message] The 1741-) system which ge nerated this result transmit mariah reference range : <=33. The reference range was not used to interpr et this result as keiko l/abnormal. [facility] HospitalElectrolyte Hsagp0284-14-35 14:23:28 Test Item Value Reference Range Interpretation Comments Sodium Lvl (test code = 140 See_Comment [Au tomated message] The 295-2) system which ge nerated this result tra nsmitted reference range : 136 - 145 mEq/L. The reference range was not u sed to interpret this result as normal/abnormal . Potassium Lvl (test 4.5 See_Comment [Automa mariah message] The code = 2823-3) system which generated this result tra nsmitted reference range : 3.5 - 5.1 mEq/L. The reference range was not u sed to interpret this result as normal/abnormal . Chloride (test code = 105 See_Comment [Auto mated message] The ) system which ge nerated this result tra nsmitted reference range : 98 - 107 mEq/L. The refe rence range was not u sed to interpret this result as normal/abnormal . CO2 (test code = 29 See_Comment [Automated message] The 2028-02) system which ge nerated this result tra nsmitted reference range : 22 - 29 mEq/L. The refe rence range was not u sed to interpret this result as normal/abnormal . Anion Gap (test code = 6 See_Comment [Aut omated message] The ) system which ge nerated this result tra nsmitted reference range : 4 - 14 mEq/L. The refe rence range was not u sed to interpret this result as normal/abnormal . [facility] HospitalBUN2022-09-[facility] 14:23:27 Test Item Value Reference Range Interpretation Comments BUN (test code = 3094-0) 22 mg/dL - [facility].Serum [id number] 14:23:26 Test Item Value Reference Range Interpretation Comments Creatinine (test code = 2160-0) 1.19 mg/dL 0.51-0.95 H Lab Interpretation (test code = Abnormal 04099-8) [facility] HospitalGlucose [id number] 14:23:25 Test Item Value Reference Range Interpretation Comments Glucose Level (test code 100 mg/dL 70-99 H Eff ective 01/12/16, = 2345-7) the glucose reference inter vals have been updat ed based on [place] an Diabetes Associ ation guidelines (Standards of Medical Care in Diabetes 2016. Diabetes Care 2 016; 39: S13-S22).Fa sting blood glucose:Normal: 70-99 mg/dLImpa ired fasting glucose (increased risk for diabetes or pre-diabetes): 100-125 mg/dLDiabetes mellitus: >/=12 6 mg/dL Random bl ood glucose:Normal: 70-199 mg/dLNot e: Random glucose >100 mg/dL is associ ated with increased risk for diabetes Lab Interpretation (test Abnormal code = 37115-8) [facility] HospitalDifferential2022-09-12 13:46:29 Test Item Value Reference Range Interpretation Comments Neutrophil % (test code = 74.2 % 42.0-66.0 H 770-8) Lymphocyte % (test code = 15.7 % 24.0-44.0 L 736-9) Monocyte % (test code = 6.9 % 2.0-7.0 5905-5) Eosinophil % (test code = 2.1 % 1.0-4.0 713-8) Basophil % (test code = 0.6 % 0.0-1.0 706-2) IGRE % (test code = 0.5 % 0.0-0.4 H IGRE % c ount 45440-4) includes Metamyelocytes, Myelocytes, and Promyelocytes. Neutrophil Abs (test code 7.17 K/uL 1.70-7.30 = 751-8) Lymphocyte Abs (test code 1.52 K/uL 1.00-4.80 = 731-0) Monocyte Abs (test code = 0.67 K/uL 0.08-0.70 742-7) Eosinophil Abs (test code 0.20 K/uL 0.04-0.40 = 711-2) Basophil Abs (test code = 0.06 K/uL 0.00-0.10 704-7) IG Abs (test code = 0.05 K/uL 0.00-0.04 H 80252-1) Lab Interpretation (test Abnormal code = 01754-4) [facility].[id number] 13:46:23 Test Item Value Reference Range Interpretation Comments WBC (test code = 9.7 K/uL 4.0-11.0 6690-2) RBC (test code = 789-8) 4.28 See_Comment [Au tomated message] The system [employer] generated this result transmitted ref erence range: 4.00 - 5 .50 M/uL. The refer ence range was not u sed to interpret this result as normal/abnor mal. Hgb (test code = 718-7) 12.9 See_Comment [Au tomated message] The system [employer] generated this result transmitted ref erence range: 12.0 - 1 6.0 gm/dL. The refe rence range was not u sed to interpret this result as normal/abnor mal. Hct (test code = 40.7 % 37.0-47.0 4544-3) MCV (test code = 787-2) 95 fL 82-98 MCH (test code = 785-6) 30.1 pg 27.0-31.0 MCHC (test code = 31.7 See_Comment [Automate d message] 786-4) The system [employer] generated this result transmitted ref erence range: 31.0 - 3 6.0 gm/dL. The refe rence range was not u sed to interpret this result as normal/abnor mal. RDW-SD (test code = 49.7 fL 35.1-46.3 H 61764-2) RDW-CV (test code = 14.3 % 12.0-15.5 788-0) Platelet count (test 273 K/uL 140-440 code = 777-3) MPV (test code = 8.9 fL 4.0-10.4 86221-0) INRBC (test code = 0.0 % See_Comment The INRBC (instrument 08637-2) NRBC) value ref lects the enumeration of nucleated red b lood cells contained in a 200uL sampleof whole blood analyzed by the instrument. Thi s value maydiffer from the NRBC value repo rted in a manual differential,wh ich is based on a 100 cell differential. [Automated mess age] The system [employer] generated this result transmitted ref erence range: <=0.0. T he reference range was not used to int erpret this result as normal/abnormal . Lab Interpretation Abnormal (test code = 42012-6) [facility] CenterCOVID-[facility] (SARS-CoV-2) PCR- Asymptomatic [id number] 07:32:38 Test Item Value Reference Range Interpretation Comments COVID19 (SARS Not Detected Not Detected CoV-2) Result (test code = ____This test i [place] a 17166-5) qualitative reverse-transcr iptase polymerase heather n reaction (RT-PC R) developed for t he Tj MARCUS 680 0 system and inte nded for qualitative detection of SA RS CoV-2 RNA in nasopharyngeal and oropharyngeal s wab specimens colle cted from any indivi duals, including those suspected of CO VID-19 by their health care provider, and t hose without symptom s or other reasons t o suspect COVID-1 9. A fact sheet for patients provid ed by the manufacture r ([employer]) c an be reviewed at:https://www. fda.go v/media/224348/ downlo ad. A fact shee t for Health Care pro viders is provided by the mortgage lender ([employer]) and can be reviewed at: https://www.fda .gov/m edia/614649/bart nload Results must be interpreted wit hin the context of all relevant clinic al and laboratory find ings and should not form the sole basis for a diagnosis or treatment decis ion. Positive result s do not rule out bacterial infec tion or co-infection with other viruses. Negative result s do not rule out SARS-CoV-2 and must be combined wit h clinical observations, p atient history, and/or epidemiological information. "Presumptive Positive" resul ts are due to partial amplification o f SARS-CoV-2 targ ets and indicates l ow amounts of viru s present in the specimen at or near the limit of detection. Regardless, individuals wit h "Presumptive Positive" resul ts should be manag ed per institutional guidelines as individuals pos itive for SARS-CoV-2 virus, including use o f appropriate inf ection control protoco ls. Internal contro ls are included to ass ess for possible amplification inhibitors. If inhibition is detected, testi ng is repeated and if inhibition is confirmed the specimen is res ulted as "Invalid". W hen an "Invalid" resul t occurs, it is recommended to wait 3 days before submitting a ne w specimen for te sting if clinically indicated. This assay has been approv ed by the FDA for use only under Emergency Use Authorization ( EUA) in laboratories that have been CLIA-certified to perform moderate-comple xity and high-comple xity tests. The performance characteristics of this assay were verified by the Microbiology Laboratory at [facility], CLIA Accreditation # : [id number] and CAP Accreditation # : [id number]. COVID19 SARS COMPENSATION AGENT Swab Source (test code = 41124) COVID19 SARS Pre-Out of OR Indication (test Procedure code = 53918) [facility] HospitalHepatitis C Virus Antibody 2022-02-03 20:00:50 Test Item Value Reference Range Interpretation Comments HCVAb. (test Non Reactive Non Reactive Antibody detect ion in the code = 5762) immunocompromis ed and immunosuppresse d population may be delayed or absent entirely. There fore serial testing, correl ation with other clinical findings, and supplementa l testing (if available) should be taken into cons ideration when interpreti ng the results. [facility] HospitalHepatitis B Surface [id number] 20:00:32 Test Item Value Reference Range Interpretation Comments HBsAg. (test code = 5747) Non Reactive Non Reactive [facility] HospitalLDH2022-08-19 19:24:59 Test Item Value Reference Range Interpretation Comments LDH (test code = 190 U/L 135-214 Results gre ater than 1651 60882-1) U/L may not be reliable due to matrix effec t with extended diluti on as it exceeds the man ufacturer's recommended carty it. Caution should be exerc ised when interpreting chester ch values and done in con junction with clinical c ontext. [facility] HospitalGGT2022-08-19 19:24:45 Test Item Value Reference Range Interpretation Comments GGT (test code = 2324-2) 19 U/L 5-36 [facility] HospitalCortisol, [id number] 19:24:14 Test Item Value Reference Range Interpretation Comments Cortisol (test code = 8.11 See_Comment Cortis ol reference 2143-6) intervals are e stablished for the morning hours from 6-10 am and aft ernoon hours 4-8 pm. D ue to circadian rhyth m of cortisol levels in serum and plasma, the sample collection time must be noted. Caution should be exercised when interpreting chester ch values and done in con junction with clinical c ontext. Serum Cortisol Reference Ranges: Morning (6-10am) (4.8 - 19.5)Aft ernoon (4-8pm) (2.5 - 11.9) [Automated mess age] The system which ge nerated this result tra nsmitted reference range : 4.80 - 19.50 mcg/dL. T he reference range was not used to interpr et this result as keiko l/abnormal. [facility] HospitalUrinalysis with Microscopic 2022-02-03 19:16:18 Test Item Value Reference Interpretation Comments Range UA WBC (test code = 8 See_Comment H [Automa mariah 28961-8) message] The system which generated this result transmitted reference range : 0 - 2 /HPF. The reference range was not used to interpret this result as normal/abnormal . UA RBC (test code = 1 See_Comment [Automa mariah 73780-9) message] The system which generated this result transmitted reference range : 0 - 2 /HPF. The reference range was not used to interpret this result as normal/abnormal . UA Mucous (test code NOT SEEN Not Seen-Trace = 73200-1) /HPF UA Bacteria (test NOT SEEN NOT SEEN /HPF code = 52244-4) UA Squam Epi (test OCC None-Occasiona code = 75464-8) l /HPF RHIANNA (test code = Some reporting RHIANNA) parameters within the Urinalysis test have changed due to the implementation of new instrumentation in the Main [place], allowing greater sensitivity of measurement. Urinalysis results reported by the [facility] using existing instrumentation, as well as Urinalysis testing performed manually or by backup methodology at the [facility] will remain relatively unchanged. New reporting parameters and units will now be reported for all campuses. Lab Interpretation Abnormal (test code = 11550-5) [facility] HospitalLipase [id number] 19:13:05 Test Item Value Reference Range Interpretation Comments Lipase Lvl (test code = 3040-3) 56 U/L 13-60 [facility] HospitalAmylase [id number] 19:13:04 Test Item Value Reference Range Interpretation Comments Amylase Lvl (test code = 1798-8) 102 U/L 28-100 H Lab Interpretation (test code = Abnormal 71794-8) [facility] HospitalUrinalysis w/Microscopic if Fwjlkhuiw0324-38-37 19:08:15 Test Item Value Reference Range Interpretation Comments UA Color (test code = 33013-1) Straw Straw-Yellow UA Appear (test code = 5767-9) Hazy Clear A UA Glucose (test code = 5792-7) NEG NEG mg/dL UA Bili (test code = 5770-3) NEG NEG UA Ketones (test code = 5797-6) NEG NEG mg/dL UA Spec Grav (test code = 5810-7) 1.015 1.003-1.035 UA Blood (test code = 5794-3) NEG NEG UA pH (test code = 5803-2) 6.0 5.0-9.0 UA Protein (test code = 5804-0) NEG NEG mg/dL UA Urobilinogen (test code = 5818-0) NEG NEG UA Nitrite (test code = 5802-4) NEG NEG UA Leuk Est (test code = 5799-2) Moderate NEG A Lab Interpretation (test code = Abnormal 48642-0) [facility] HospitalaPTT2022-08-19 19:00:12 Test Item Value Reference Range Interpretation Comments aPTT (test code = 36.6 See_Comment H [Automate d 63398-8) message] The system which generated this result transmitted reference range : 22.8 - 34.2 second(s). The reference range was not used to interpret this result as normal/abnormal . RHIANNA (test code = RHIANNA) This lab cannot be scheduled at the following locations due to collection/procc essing restrictions: [facility] and [facility]. Lab Interpretation Abnormal (test code = 04425-5) [facility] HospitalProthrombin [id number] 19:00:11 Test Item Value Reference Range Interpretation Comments PT (test code = 15.7 See_Comment H [Automated 5902-2) message] The system which generated this result transmitted reference range : 11.9 - 14.1 second(s). The reference range was not used to interpret this result as normal/abnormal . INR (test code = 1.26 0.89-1.10 H 6301-6) RHIANNA (test code = RHIANNA) This lab cannot be scheduled at the following locations due to collection/procc essing restrictions: [facility] and [facility]. Lab Interpretation Abnormal (test code = 96995-1) [facility] ([place], DLCO, [place]) 2022-02-03 00:00:00 Test Item Value Reference Range Interpretation Comments FVC (L) post (test code 2.208 L 1.634-2.859 = 9508) FEV1 (L) post (test code 1.286 L 1.144-2.181 = 9506) FEV1/FVC (%) post (test 58.241 % 64.440-84.028 L code = 9510) DLCO_SB ml/(min*mmHg) 13.745 See_Comment [Auto mated message] (test code = 9515) The syste m which generated this result transmitted ref erence range: 3.627 - 23.793 ml/(min*mmHg). The reference range was not used to int erpret this result as normal/abnormal . DLCOc_SB ml/(min*mmHg) 14.458 See_Comment [Aut omated message] (test code = 9516) The syste m which generated this result transmitted ref erence range: 3.627 - 23.793 ml/(min*mmHg). The reference range was not used to int erpret this result as normal/abnormal . TLC (L) (test code = 5.487 L 3.321-5.295 H 9513) RV (L) (test code = 3.255 L 1.442-2.593 H 9514) RV/TLC (%) (test code = 59.322 % 35.890-55.070 H 9517) FVC (L) pre (test code = 2.232 L 1.634-2.859 9507) FEV1 (L) pre (test code 1.262 L 1.144-2.181 = 9505) FEV1/FVC (%) pre (test 56.536 % 64.440-84.028 L code = 9509) FVC (% pred) pre (test 99 % code = 9520) FVC (% pred) post (test 98 % code = 9521) FEV1 (%pred) pre (test 76 % code = 9518) FEV1 (% pred) post (test 77 % code = 9519) FEV1/FVC (% pred) pre 76 % (test code = 9522) FEV1/FVC (% pred) post 78 % (test code = 9523) TLC (% pred) (test code 127 % = 9526) RV (% pred) (test code = 161 % 9527) RV/TLC (% pred) (test 130 % code = 9528) DLCO_SB (% pred) (test 100 % code = 9529) DLCOc_SB (% pred) (test 105 % code = 9530) Lab Interpretation (test Abnormal code = 36500-3) [facility] HospitalMD BRAF V600 E Mutation Material [id number] 21:49:16 Test Item Value Reference Range Interpretation Comments Archived Material Previously diagnosed (test code = 42918) tissues from [place] [address] were selected for molecular analysis. Results will be reported separately. [facility]MD EGFR Mutation Material Request 2021-12-30 21:49:16 Test Item Value Reference Range Interpretation Comments Archived Material Previously diagnosed (test code = 38012) tissues from [place] [address] were selected for molecular analysis. Results will be reported separately. [facility] HospitalMD KRAS Mutation Material Request 2021-12-30 21:49:16 Test Item Value Reference Range Interpretation Comments Archived Material Previously diagnosed (test code = 41355) tissues from [place] [address] were selected for molecular analysis. Results will be reported separately. [facility]MD NTRK1 Fusion Analysis Material [id number] 21:49:16 Test Item Value Reference Range Interpretation Comments Archived Material Previously diagnosed (test code = 94725) tissues from [place] [address] were selected for molecular analysis. Results will be reported separately. [facility]MD NTRK2 Fusion Analysis Material [id number] 21:49:16 Test Item Value Reference Range Interpretation Comments Archived Material Previously diagnosed (test code = 97952) tissues from [place] [address] were selected for molecular analysis. Results will be reported separately. [facility]MD EML4/ALK Fusion Analysis Material [id number] 21:49:16 Test Item Value Reference Range Interpretation Comments Archived Material Previously diagnosed (test code = 14907) tissues from [place] [address] were selected for molecular analysis. Results will be reported separately. [facility] NTRK3 Fusion Analysis Material [id number] 21:49:15 Test Item Value Reference Range Interpretation Comments Archived Material Previously diagnosed (test code = 31853) tissues from [place] [address] were selected for molecular analysis. Results will be reported separately. [facility]MD RET Fusion Analysis Material [id number] 21:49:15 Test Item Value Reference Range Interpretation Comments Archived Material Previously diagnosed (test code = 67487) tissues from [place] [address] were selected for molecular analysis. Results will be reported separately. [facility] HospitalMD ROS1 Fusion Analysis Material Bjhowah3545-27-04 21:49:15 Test Item Value Reference Range Interpretation Comments Archived Material Previously diagnosed (test code = 75274) tissues from [place] [address] were selected for molecular analysis. Results will be reported separately. [facility] HospitalPathology Biopsy Interpretation 2021-12-29 21:51:25 Test Item Value Reference Range Interpretation Comments Addendum 1 (test code = h7zxrXVrHQPzaYC4VNL 37) nVZDpt8nbs7MwdLZcaC KcTDukuLOielKatw79o IC2iM88KF9xFLNlToN0 GGYyebG8Nef3QQWdZLS jaQFiA677p4qeb3rxdb TnfXI1cEvzMTJhwgtzA aD1WZyeTSQlhrtxHTy9 QVjvVINctUH8KVYaaNG aU6OgHBKfVD6hyxl6UK Z2MUskRJJvWfZ5FQMig WSbQHTfiLohHRzgv287 FWF7OvOaDYXcjxBhaMj xmS7hIzPmMNOGWY0NGO FlL0legqQoEjKFWrvoJ FRhphMMsCZxxCV3HNTC eG2lwfMtLLDih7RjqqT vw11wQ3VzxcCoUDYENc k6JOdpGJeiGJAfkWk7w MYAe4BryXGDyhCylx5m yUmjohn1qPFjFvBBcYd wUBBif6F0KIjeEH0brk GfTDY2sORiYPTlpWLZM 1ajVU60YMWac58iTE8j WMJmJGUiATGhw10dN6d vbmFsIGFudGktUEQtTD TvBJAmg31hIASfEmHyJ Yl4SQejPFWexbCecr4y XEMyaoSur2LuWBszuc7 maXhlZCBwYXJhZmZpbi 3odOHoNYVaCJG8xDUib YHztGJsxqurDC7gZVwe mVYxpWEZSYsxOLG3iG6 zdGFpbmVyIGFuZCBwb2 c8sHIuFRCij3DaDBBws GVjdGlvbiBraXQsIGFz IHNwZWNpZmllZCBieSB 4vFJpcGSroLUqJ0L4ca VyLiBJdCBpcyBhcHByb 0MkAXNqr5BzbLJoUELs QCYpC46vjAVdoT2hYHP nNOcoh9W0gGEmZSSuPZ bpTg9kWIDwDPUcSugmE HRoZXJhcGllcyBvbiBj PFV3GLjpZPU9uX2wIWH 5cGVzLiBJbnRlcnByZX RhdGlvbiBndWlkZWxpb mVzIHZhcnkuIEZvciB0 uY4bwzAoHVWjzgMxitS bP3Xft5UppdUaDSCKJh bkQYLkHNCgMSUkKN80Y GafIU6cNZE6iA7pHNfm wDKrErCxnk77vrRtIOT lbGluZyBvZiBhbnkgaW 39OQ9azKC8VSdvPCFai 5Wuj5RpGcDTpNWmi0Vl rtFdPOAxtZ2ddObhROc udGVuZGVkIHRoZXJhcH fpbWQky1PuXJAstuCvf vCxAs8lXYBvsQYwgYYt YXRlIHVzZSBvZiByZXN 8gSMrRjIFGWHwn3NiEO 6yTCEjrKToFKB7BKDsq 5ZoW4Fhp43id2LwWWTg pSnzf1XkLMQ4lYXbPUY 1T4bcRWMbSJswhYJvXB Bes5RvE7iqAL0mAZPgT VOzqeIfo42cJWNisz21 SBEwnCQvi6LvjVfzZXR fVR5uHGTySHCdrVqjye XyXG7sr0OhHvDzI9Mqk gMerAMwNB9eoESvAFZi cmRcaTBccGFyfQ== Submitted Clinical History e0sgkGYuZEIqu6ecPZZ (test code = 00964) mbGFuZzEwMzNcZnRuYm pcdWMxIHtccnRmMVxzc 9EvQ3HmPfLvAFcvcwAz XGRlZmxhbmcxMDMzXGZ 0bmJqXHVjMVxkZWZmMH hrWz3ckDJdyRtlNmTjR EBho7focuWOfimojFb3 l4hoXPAcFsM0wEYaTHe fH5wptwGwjCLdTCIsPL p4sO14BOKetY9saNUxJ MwomzCaGsE0MTeiSPSs YhW3ZFVydXZsEJVfU3f yZWQwXGdyZWVuMFxibH IcSER8lTofm9M1lPExk GVldHtcZjBcZnMyMiBO q0YuYLa4vKvsQ9ErMZJ oZaQ2gPLtWLXeTDdtIE YrKTTiyzR5oR96SSfsl mI2tNCyy4Iog05rs153 kJ3upWCaCCD7OEXjGDT owIKqUZZdUKX6UDFheE NzP6cfLXAxVM8gbzduA AjbPXbnUXMblPO7KADe tVNaG1PhNEAlYQjjSAX ixqd8WsGnWn7zbDKcoI qsZWdyd7bii9ersZSiX wz0AHNiFrIwRrxtJHqd h2Fzr2jeTIMpji5vKKY 7eAXiwHbmo9O5nLIfOH IobMQkkqWoXMCqWfY1K UkjXV9rlp74EBTeTDU7 ls0cpUTgjZtejsTzuCA pFBehZ8BhLUFbn002HG XvI3WiSMQup3F1cwDbQ jIbCMIpaAW6blG3JZTa LHu8qYPdfeX2oxItmCJ yC6ephS4kRFQcHD9jdj qja3hlYEdzCDxwXHFir DW9pdM9DCFveMDsG1Vm lX3dPUOlYLinOXRyger 1VrOpGv7qoQNycPchOA xzYmtwYWdlXHBnbmNvb nRccGduZGVjXHBsYWlu XHBsYWluXGYwXGZzMjR rlTjprSlaiZ9aPnOfEu RoLTrtQO2eLOZmZ2orl SBjHVEsENDlQ9yhNiCo zV0omPfmKSzwogEmMM0 8cASadSsiTL6lHHCuLQ Xqe6FhuNUpSoRxVzjfA gnlKOQcbxBUhM9wOQ7c n1IsX2W9FI91CRwztWT pblxmMVxmczIyXGxhbm vkXVLpAPjjM3jaZjOqV WLdkKalFMzrz4LaRKDr XGZzMjJccGFyfX0= Diagnosis (test code = 34) f2hqyWBdMGAsaHD4MRR kDPJqi9bud4LhbQNvyA LlGYglcPFuwtQbld47f EQ6tP60KI6iSXLoDmO6 XNGmboV3Onc5IIGmPAF nbMLbT201j4wxd0aisp NzeDJ5qNytBTSikxsaG zF7NHkuWOFmflvySMd6 KLhzVDMlcNW1KDBmoVA rK1DhZTEjNC4oqcj3VV I8NYteZTDdEfH7ZQQwy JLcHDDwnZbwZUpwr942 VQW4BrJsHZCuavLwbUf meZ7lIuPbTQGUaL0fCZ EbEBX4LOGnbLGcUKpsE iAkAEGaz2KizFvoxANj QVRdzos4SFNlUWJWWj8 OQYCXHL6BQWCaK3InFI DACuXXVqlLYG7rTAQtr hi9DYFgZ0RhBWLcjM2f bnQuXHBhcn0= Comment (test code = 9835) f5ygjLDcPGNwiQI7APW jXUHvx4fop6OuwWWzeV QgADlvyYRkytEkwv00o CD5uU40OW5hEORdBhL2 YPTrwbT6Umz2GHVtOVI jxTUxF605d6yxo8wqmo OcdWD9pQfvRXGskonrS sQ7BLsbVJIltinmSIt0 NIrlOWFcwNJ2MHUfvZT gF1GvKHXjQH1igmm9SW U6GGmnLBBtDxS2RFBcw BVbTBOewCvyUYbgm298 OIQ3YwRxZIXkfjNztLn usC4yPaWhSKSIkW51zg 2ejIX2i3DnEM0mV3EcL MU0XIshzlZgjA35ROCc v1a2rTMnPCG4ZPschJ5 bADysQSS4xO5nLNLtjF cfZLohyDfvv8ArNAYlb iBhbmQgVFRGLTEsIHdo eZbxPB9tJ3B5aSRcEJN vciBHQVRBLTMsIFBBWC 04LCBhbmQgcDQwLlxwY XJ9 Gross Description (test c5lhcVJzMPNnfFFZCKh code = [id number]) wMVxhbnNpXHNwbHRwZ3 MwlhnwSAvrHE7jIB5ub DppvMDnyQRgPT7QCRBa ZmYxXHBhcGVydzEyMjQ aBHFqjLUetMN9VHDjTR 1hcmdsMTgwMFxtYXJnc zQ1HUIluUCqM8JzEDNk YJ6uqiitLIS5PQrmrS5 mugAOWynuOv4siVEjeX tcZjFcZmNoYXJzZXQwX TIdqZclJGObURy2iS7W BwjdE27nu7B9Cmo4NGO lFDUvQ5ToNI7qGAUopE AaJ90BErvqKEM7VJLYG oxsYQLeRC7Uo8lsSQQt sFNjRME6WFcucLXuUMR hMZZjIOy0RIHlWGphmS ZhGG2ojUoxLeyodOapg 2VjdCBcXGlkIDUxMDAy VCloEBCmWA0FZyPeWCU tMeF7JHbjFGo3PZl7AA 9VWvXpZHHtNMKnEWL0V jReSCb5CVvgJU4XHZHf NjgxMzUxMzYgNTUyNTQ hPJp8FBPiCEyxLPOmaQ FsIFxcZnMgMTAgXFxmY iCfGEAkGKkuxkF5NZTz YWluXGJcZnMyMCBBOlx fTWSwJGichKbtbW3kND WcP02uk0EGx5AmLQ2EP Jg8uoFcmqhkwS6iVWIy mnZdFRvzaKIlU9wpIxa rYaMzUjQgBLRUjA1qHA BhOHA6YCHsuTLmWDrsN mUsIGxlZnQgbHVuZzpc NaJnY4KjMKCStIZmMXS wl6PxuqArEeZ0AW8pHy Wfh36if21cxFT1vOLzk WUgYWdncmVnYXRpbmcg gS6aIw6xDCeaXN9wQRv qGE1tPKOmBQUcwqOxvq PzlUNcpQDxsMZ2RPVjn O5tLDFsIILvfDObaQMj hZzuDrhvaSI3TImbEue abS0bpTWMCKAAVubNJo ixeyZqHJ9FAE7PRqATQ V73DgEcOJA9KUvSI9DL fTA3Wou0ODh2kZxfVmt rgoUnvUZsDuUJqG5ENa imUwqkeXK1HKzdYiryx Z1lkLMWSCQHWckJQjgs cnTqYF6EEB1WNL9EoFT eIDA2dIQ9WGSYPcslvG P3eEN6oP52URQnGCEhl YBuUXnjF206GBFjWEvw QUx8luTgYVIiPiSgYDh tIFKyH50kz3JEk6YuGK Aiv5xvjSnnx6PdrCWfP FpsZYLutYXkRErqhE1x UdCym3svzLe4AEanoiI 0KOAfhd5lrMlhdE3hHI ouk4nzGKG5EGJuxOYlp IWlFFrlhDxsmP9hSqKv Wso1MVneKQEfT7EhI2I gnsM3DYHmFLeuPPTcCN YgDQp9 Biomarker Block(s) (test h5xdaFOgCORqoWQ3HNJ code = 9841) tWVTsj3ejp4OstPLoxN CoDXllnZHywqVxoy97x ON0gU15OB1pUTFiRjO0 PNRqtuQ5Hol7JIIwXLM hfYChK878r1vtb9sjxx GzyLW7hXvkTXYpscjdD pV2TMhhVLRubknqOPu7 AIquCTYlxJD2NIBkdNN iX6EsQIDgMW4ewft9LT O6DGtiCOJbKhB1GUTzv FOdMMWbnRhnUNhmk489 BYU9TiGjOUIiubIojLl byN8vAsNpTEFBHwwjHY J9 Disclaimer (test code = n7eplJWnYIAhhVTaYzA 9844) qQGSeLEWsr2akSNPsvU FuZzEwMzNcZnRuYmpcd RUwWNGpCeNoy5dwl814 lATun0skYTYyQiF0sFQ mEBIavNOmI459FLUaUI mmw7fyv7VyNRGswFSnv 1H5DFCSqklwrPh2pAzt J30bw0C8LcgcF1bnNUH iXQXtJ3LgPD5mLTJgHg b0RMV7TFA3IFQiKISjE 2UgNF1hMRZbwQGcAFr2 o8rorOtaFDWaOUM7k5w nRRcqxiPrNY4vta3xhD d9j9kmwgUzTBAjYROru KHHHNRyV3JhlEqyRm9q rNy4tHivOxdkACG9Hxf 5UG5fez87tma6aEudPQ BdranzRmB3HKruYKPpk ugsPTu6VYrlCEDokQK4 FEVbtPYlF0IgDEZnHX7 asac2JLR2OJzjSSFrNd Z8PZTgzLAwXYKbiKfmY Lyhy839XUG7CbFtAI6y A6Cbd5W6kN7wvWXvIWY oiQTvKoOfZCPqfh3exU XtNNciy7PuFVN4phG3i IFomMLbOTDrPQ70Pvmz y5KwGgunADH3BGUwlxF ks6Lrq9vmYvBqcwQzT8 quE5RyKGOaNOBbOUAmY dGpecQkh5Ltl1MqsQKu dTk9t6ivQMVqNJSxuRj xl8zbJAV5JNStA3D9nQ Hzw2pcCUzpAQOphHB4e jI5ISHtaTUoR8UfsW3q DGTqXV9mysq2e2ubIWP 2KLimKUVeZdS3dsL1CJ BcaGVhZGVyeTcyMFxmb 492KEW1WrAmSJIdc9Nz H8ZyaZwdD46mtOixS54 fGZFiaOtqmJ6hsVzmpS 5cZjBcZnMyNFxxbFxwb EImqttoJTtdrnY2UUmf cspnTGPsHNnfT3ycAeC mEKZlkIybHDfbg8NpBX RmCHCoXgsuhuW0PZBJb 78cAFZua7YuVPYgdK1o xBUcBKxalqMnuOM1QAr hdmUgYmVlbiBkZXZlbG 7tTLHlYA2fJZAreiBmj x0xwpStXTYoVCTdR4Mb cmlzdGljcyBkZXRlcm1 jasFpLEY5ZYISRU6AYY NaCMYxv33fXUEhjIgmt Q3yiASmsdEqYFIjv1Xf jA5rmBLUHFQfA6xoPT1 fOVwab3TnoVLsxROhrO W0BNTxz8LyRcCodzJqc IZlyGAdJ1IbmMroQ0ub EOEeTAExpaZxbBTax2X rOGRvrTX2iFQjCE6OLt TXg61tCDYtQCVQjwNjR BLazKtmjGI5hkN4sO0w LiBJZiBhcHBsaWNhYmx qPRUvm419ir2bbsX3HV SyKMNllhspz3CyBZUvD FJglR56GNHdNQLpqa4a ydfhqKCylhShB4Lvkbe 8nQ8yIMZaSRojPVKlGD ZzMjJcbGFuZzEwMzNca GljaFxmMVxkYmNoXGYx ZSdkR2vmUkAcTdJtAch wYXJ9 [facility] [id number] 20:08:22 Test Item Value Reference Range Interpretation Comments Molecular Diagnostics (Received) (test Yes code = 8400) [facility] ROS1 Fusion Analysis Collection, [id number] 20:04:01 Test Item Value Reference Range Interpretation Comments Molecular Diagnostics (Received) (test Yes code = 8400) [facility], [id number] 20:04:00 Test Item Value Reference Range Interpretation Comments Molecular Diagnostics (Received) (test Yes code = 8400) [facility] MET Mutation Analysis Collection, Lrtom0235-74-09 20:03:59 Test Item Value Reference Range Interpretation Comments Molecular Diagnostics (Received) (test Yes code = 8400) [facility] ERBB2 Full Gene Mutation Analysis Collection, [id number] 20:03:58 Test Item Value Reference Range Interpretation Comments Molecular Diagnostics (Received) (test Yes code = 8400) [facility] EML4/ALK Fusion Analysis Collection, [id number] 20:03:57 Test Item Value Reference Range Interpretation Comments Molecular Diagnostics (Received) (test Yes code = 8400) [facility] BRAF [facility], [id number] 20:03:56 Test Item Value Reference Range Interpretation Comments Molecular Diagnostics (Received) (test Yes code = 8400) [facility] Hospital[facility]ytology Image-Guided FNA Joocpxoddudlcn3052-73-31 21:47:58 Test Item Value Reference Range Interpretation Comments Gross Description (test x4bbaNYpZFVspUZSHRicB code = [id number]) EnwqyEjTAJqcJVcO8Tnkq baFJqcBR1dQW4afDbghRE plSWmII0LDNDnRxBmTOPb cGVydzEyMjQwXHBhcGVya HQ1NAXkBQ9ljrwxIDvkFM xkOBUdwbR3GMDjyBXaH6M bPBOrVO2tcmokDLP6EKmh aW9dwyBRUeseQw4ivJMvx HtcZjFcZmNoYXJzZXQwXG GkrSxlZDMdCYu0oE2AVss rS67ar2Q4Mdi8CSWpVFVt G5NcWT5wINFzaYQjM09DM zsnUPO7BXSPPyslOXHeQF 5Bq0xaBJPudUAxZOC2RNe lkEAgIMTmEJWgNPh4IPCe CRqpzBDfIB5nmOruUzzfj Wzqn3VyeHShJEatSRUtTP FyFKspNGFzXO6CZiQxELW yRgJ8XoVkVKr2JAh9LL3W UyAiICAgNTEyMzcwMCIgO Pz0YIjmKZ0MGMHsIDI8TH A0KWGnTNQlOeGiOEi3WOV gXFxmIEFyaWFsIFxcZnMg MTAgXFxmYiBcXGZsIFxcb xS5GPVpCPhiAGImZrDiIS BBOlxwYXIgDQpccGxhaW5 nAZOkZ31cb4TJb1TxRV9L YYw9wwIhtnwpgR8xXFXpx zHnSStwiEAzV1qdE2MqRJ RnLjClH5EhK2vbEM0uGDM lk9Y2tfDhZewlEMFnBJjg IERpZmYgUXVpazsgMyBQY CMsP5SjmH5wO7bvUIYrAG BhciANCjUgbWwsIFxwcm9 7WRU4d3efeCEiATgkFtpn iZJjrlI6KAePCZRZMQwME kHgPS8jILlVT7KZTLzDUb fpYHW2UHbtwYC3x4fizXU gl8r1RJccSVI9zPCbfVlv pPh9AXImj5YzaQHtzXSnk EXpoGS3NPUyWTadj5ntKN MoQGezg3TkVXvKQQJBKF9 BZE5ooMT1B6aKHUGHP7pN zIO5i0ifwYKun8x9EZzuY QO9wPYbo01txKaaFnleqC L6DFflUyfiiH3rdLXLAJA JOtmQLpjedyUhHY8HWVaK BA2UgKH1i3dcjPOas7i4R RanQPM5xBdvgFOkzvmiuJ SxiIgrpf79ALK1ZNRpIDv mczIwICBmbHVpZHtcZmll gXE0BRpgVjvnxB1weSLPW HNCEvyJXqafauOwDC4AXC KHKR3HxPT5GyPrtYW3VE6 6GELgSMGjrVXjFLenK803 HVXfIBkaHWa6qeIzDCLtX FexyfRyIABdnjUEYV4MXP QryyOLVmGeT1HfpQYWqE9 wp5vrPMJdFCzPQTCxI2Wp bHAmTIsaM9IcFFanWNWzn v0gnNekFaLknKNcgCVehG elNqM8ZLTrMDruc9cgBKU fREyyd2FsMFoGXQUQSG1Q ZW6voYD9HLwOT9WHF6eQf HJiGFyeeEL7FS7NYFtOHF MVvSC6gZxnaKu6x1mbyXU zz8j6WEqxSAO4uJV9PqA0 LbDgj8yhtZPuMXsuZubny GGfygS5DGwEQBPUQUvLJd OnCO7dAKrCHutUFiZ0RQM wHvK8K5iZG2UKIQZZIAW8 ACb2fIU7aD64IVAdBEHtu NZeSNzyM021ONFiCXfiIN a6pmPlFLJyGhQiUPIhYUU gh6OkO1S9MPBeUXvcm5hz UGVsFWkvk9VgFTsPGKLFD I2MZC0fsVN4ASoYF7AMG4 vWnZnwrIU1Gk0UjVN9bXp dmCv7t7npkSClg7e1FIdg IQO4sDY5NLTwPD50XYUhK Byap5jnPWRzUKrew1QnDM uAHNKWEG6ISU3wuAI3VEd RO6OGKLg5Qaf8tI7QN4hd fVh6PXe8lCltDwvzbgPjt YFuTrRZdH1yySgbfU8qoX IoI2dlH0KfCEJjGrOyYCb kQTDeQFomyTZgIZ3EO9a3 AMtfMs8rKH3dNOWzmhJTA qzoSwCsN9KqN0uwHA0gPH LdrAQmD0lka7CaNAZjlcK oud5tSEWsoDFBDnMZDZB8 bK9kulukC5MdIIIBRRwxO OxthwXYFFFGPBhQD4SwHP VIDFXIPONwNbOJWW8fExO 8FzO4FV63MeqwYDVOGILV CVpYFX3WXUJLVASYTF4SA qKsQ3rEMHKSQpZeVWCZOJ KOMMZhWjBSMU6uQkr6Dyf tq4L2L5vPLPSUFiEnLUUK MTJVFGBcPR2FCPVDZAUMX X4XFQCBU80BHPSHXUUEJ5 JYO6yYFGWfh6JcgIlkTqB 6NqCcUS9lCGhDQ0WKA7nB VBWxMLPCEJFYZYVfNJ9BE IgFLY0IEXEeVYVEFITCPP IsGdZTRS5gJZmFIA3YGFQ rWKYBDILINDAyNP0YDJDC NL3DVGXFHSAKY68KALZFW HKXA1ZEO8uMHXACHXOWSp UNYlMWNX3VYSNSMZXXRS6 FTkQNClxlcGljTmVzdERv WtHgxjB7VPIhiLYmJNL0G H0rBJLkpglxIBJzAQLqJE A0GFwqjY10pKRhEFKdIMK ccGFyfVxwbGFpbiANClxz jZ8eUcEyu2okzEi7BZRZY nijpEVclojpmrO7JTVxc4 wklBmjw1MkuLThML9ijJn tqT3cKwBkWqHQJf7= Immediate Assessment Adequate cellularity (test code = 9837) Major Classification NFMC/benign (test code = 9839) Diagnosis (test code = q1frfAIbAACroQO9HOHtP 34) GIgr5tsb7TgfEZjbDKhTG wsnKUuokTvyg70pRJ1oQ0 1NP6bOPTlLkN7SHBaagR3 Igt2MUPfBKLdpDWfV849q 1czc2lbswFwwXS9BTLbQZ PjD9MfLQ6xMYXvkJQhV59 axXLeDTI1MGOvXXTsnOHa BOSyNFE4GANcePChB0uuR MZpYO3bcqfyBPhjGOkwPB HfiUE7ONTvjANsK0VdBIR fDCysOALvcpt5TaRtGy1e bBOmaJfmRTkfV0pnuK8jY gS4AGwzD0txjM5eOQf9TV caWGUzcZB3gbB8DHSipOR vK6QulE2fDKJaYJ4esdw1 w1pbXIE7GHuiHGVsIvE1c uQ3ZNYbbPFwGSzyuLIwai xmczIwXGNmMSBBLiBMeW1 bwZQto7XrJCMjSGLuxEzg bExzo1IhEGArs9GfuM18C DHao1MfgfpzWPKWoqhwXy luZSBuZWVkbGUgYXNwaXJ hdGlvbjpccGFyXHRhYlxw HYQvvDt5BzJdhOapGdYyZ FJkGDGLprCdNADvv9RewV xmYVKvbdZpjx6uEFCjJPY ooFzenUTmTJFethXZe2r8 uM0mtEzdaVSxpRzngVtgv AAgM0HukXUjs6F3yXO3iB 8eLJKwxoCtn4OmcwTfa2f 7xWLxbG8ckYEds8QwDZGf vLHbkP2cUPRmae7= Comment (test code = p5nioCCaKGJuvRO1WQPiZ 9835) GDxs8uix3UaaPOyxNKkXH mgfXXuctLisc18jOH0oM6 7RZ6kEMEsNvF5BTGfzbR6 Mkh6CUPvTYLzeLImB515r 6eto0vzrcXlyII6rDvlTP XpdvvvVoG8PPdvCSMhgow qNEd3ISnbLOYckAN6KOXc aHCqA6WaOGGdYJ1fryb1K QG4FNrmUUMzKcM2XLCflR RfWYEbkUzlBBaii835XZC 1XtHvIMAhabJjvNpwdM4e QzXeVVNNiEHiD1FcsSKjm B1jlvYlgcVqTAFjxYrbtb D6DFClX03qnCIzNiV1e4S 8ZAQpf8BqMZCcNBljwfmz rHgqHFElm2GbFUQcYNnzc 0Myny8beLQkfC== Retained/Biomarker x8ygeSBlBSLwvKT0NZVvA Testing (test code = NPuo1ebu7TnaVGuzCYjXB 9853) ttnHEhflDklm89tGZ0iR6 4YI6kGYEtQeP2KYDhplB7 Qrg2PWDsKXAvoRNkX100k 2jji6cliqJjhYC3qXaxZS OxfxioAbU9DVbuBUHcetw fHJm6AOygVVCmvSQ0JRRu kBRlZ2DgIQEdMQ0saol9O MO7HDwwGWWuGiD6YOCtzL OzSQEjcIqqMWbgl548WLT 0KpMxQMZsilPcxQeagT8x ZnMyMCBTUjogNiBTLCAyI ENCIFxwYXJ9 Informational Points s7hnjAWoUURhgSGdWmYoX (test code = 9836) KRgTBYad8ayCLTxdEEbTc EwMzNcZnRuYmpcdWMxXGR hDwIbz3wrs586hLIzm1gq WWFdBqR0rWRlYHFjkLKkZ 288QDPrSRdjx0vqz3KqVO RbxJPho9J1IHPGPRktICH CFLa7x2veNjUjOvD8cMOv GCtfV5qaviVpqMTeLHUpO Ts4nR62KQYutA2kaDEbKP tavbMbEvJ5DTssAFAwMuU 3HJMhuJCfZOZsB2glIOUy AEuvVSPbAJpenCQwGVG6n Wtrh2D2oRXodVGmvKtvWu FtXlVlRyYBv9MsLBs5jSi kR9OePQBgZkP3kBAhRWYx WKnbPVTwYIYwwgP9kV20L CsbfwA3qUCvd9Yss03wg8 87wU8ljILdEDU3WTCtEIM rxTIwZYZdHRP7PCKvrIFb T4bfIETwGC1fgxbfZXatK FksZVAdlDA7WTKpeFFeW6 UsHIUiXOhaLGXymzv2BwR lJb3gsYEmjOtiFNpek1bh o9dtiGKyYyo3VBIhZaLnC gbwWIlqz2Fsg5kzPRKdke 3nFME1sYPwiTkgn3U5fQY xXGRudGJsbnNiZGJcZmV0 PQfsWT5jer77KRObJCR9p m1dnNRyfYkqfgNxtIQjVD nlT2RdTPDix585JPOoP7N oZSPld8V6dfQeSkYcNMAh xMF0slU6CSKsQSc6bZZog eO7mbBmlKBnQ5qyfJ1fYG XeCK8fdeqny6hnXMhzKGi eZUKdcRI9hvV8SBFemMDq U2XreM0iRBGoFAazGUQkx jg2GaOpVn1rkZBjnRozUS xzYmtwYWdlXHBnbmNvbnR ccGduZGVjXHBsYWluXHBs YWluXGYwXGZzMjRccWxcc NuthV6yWgAtCjUqIGnbEV 9gVEHbZ8lvyQIuDUSxRDN oI6ilLuZtrF2raKnpWBkk gaR3EYxdI13qFGT9FFN9u yByZXBvcnRlZCBoZXJlIG 4foSMgMVOhBOHrWU8aWGU 2ZWxvcGVkIGFuZCBwZXJm n5BrCI4yUHAyfPGjIHF9P HUkx0KvP6JwNGF3PCTzfU 5lZCBieSBVVCBNRCBBbmR cbeWgpuKLXAOdl2ykX4qb TI8oXYouRl1nIBNbpcpyI WVkaWNpbmUuIFRoZXNlIH Bdr9GoVMoyosLymd92WTD kLM0rd7SkI4cxeRQxqZc5 YUJrTQAiTXQfk0NnLOKig g36GCGtSwspgXnxQEHmKu 1jPb4lZHDybgLtWQA4OdK FVB4sjygooSSkgZfzvt3r XHBsYWluXGYyXGZzMjJcb GFuZzEwMzNcaGljaFxmMl rcNsBsQOXuOObnF6kaKbF cZnMyMlxwYXJ9 [facility] COVID-19 (UTE-CoV-2) PCR [id number] 11:21:43 Test Item Value Reference Interpretation Comments Range COVID19 SARS Pre-Out of OR Procedure Indication (test code = 22014) COVID19 SARS Result Not Detected Not Detected (test code = 57700-5) COVID19 SARS SARS-CoV-2 NOT Detected. Interpretation (test Reference Range: Not code = 31151) Detected Methodology: The Haney RealTime SARS-CoV-2 assay is a qualitative real-time reverse dairy feed sales consultant polymerase chain reaction (mastercam programmer-PCR) test to detect RNA from SARS-CoV-2 in nasal, nasopharyngeal and oropharyngeal swabs from patients with signs and symptoms of infection who are suspected of COVID-19 by their health care provider. The Haney RealTime SARS-CoV-2 performed on the ContentDJ000 System is a dual target assay with primers and probes for the RdRp and N genes. Results must be interpreted within the context of all relevant clinical and laboratory findings, and epidemiological risk factors. Positive results are indicative of the presence of SARS-CoV-2 RNA; clinical correlation with patient history and other diagnostic information is necessary to determine patient infection status. Positive results do not rule out bacterial infection or co-infection with other viruses. Negative results do not preclude SARS-CoV-2 infection and should not be used as the sole basis for patient management decisions. The Haney RealTime SARS-CoV-2 assay is for in vitro diagnostic use under FDA Emergency Use Authorization only. Testing is limited to laboratories certified under the Clinical Laboratory Improvement Amendments of 1988 (CLIA), 42U.S.C. 263a, to perform high complexity tests. The Test was performed by the CLIA-certified, high-complexity Molecular Diagnostics Laboratory (MDL) at [facility] under the Food and Drug Administration (FDA) s Emergency Use Authorization. Factsheet for patients: https://www.[facility].org/ AbbottFactSheetPatientsFact sheet for healthcare providers: https://www.[facility].org/ AbbottFactSheetHCP Test performed by:[facility] Molecular Diagnostic [address] [place] [address] [facility] HospitalCoccidioides [id number] 17:05:38 Test Item Value Reference Range Interpretation Comments Cocci Comp Fix-Franklin Negative Negative (test code = 5096-3) Cocci IgG-Franklin Negative Negative (test code = 67456-8) Cocci IgM-Franklin Negative Negative A negative co mplement (test code = fixation and 50330-4) immunodiffusion (CompF/ImmD iff) result knowles s not exclude the panda gnosis ofcoccidioidomy cosis. Repeat testing by CompF/ImmDiff i n 2-3weeks if clinically i ndicated. Test Performed by:[facility] ior [id number] [facility] ior [place], [place] [address]Drt Director: Vladislav Cannon M.D. Ph. D.; CLIA# [id number] [facility] HospitalHistoplasma Ab Nwnbjw3644-43-76 20:14:06 Test Item Value Reference Range Interpretation Comments Histo Immuno Negative Negative A negative comp lement Ab-Franklin (test code fixation and = 00772-1) immunodiffusion (CF/ID)result d oes not exclude the panda gnosis of histoplasmosis. Repeat testing by CF/I D in 1-2 weeks if clinicallyindic ated. Test Performed by:[facility] [place] [id number] Direct or: Kushal Cannon M.D. Ph.D.; CLIA# [id number] Histo Mycel Negative Negative Ab-Franklin (test code = 33586-5) Histo Yeast Negative Negative Ab-Franklin (test code = 38207-1) [facility] HospitalT-spot Kaouuuqcpqlb0025-18-78 17:36:08 Test Item Value Reference Range Interpretation Comments Tspot TB Negative SeeBelow Normal Value: N egativeA (test code = negative test r esult 7663) does not exclud e the possibility tonio xposure to or infection with Mycobacterium tuberculosis (M.tuberculosis ). Patients with r ecent exposure to TBi nfected individuals exh ibiting a negative T-SP OT.TB resultshould be considered for retesting withi n 6 weeks or ifothe r relevant clinic al symptoms indica te. Results fromT-S POT.TB testing must be used in conjunction wit h eachindividual' s epidemiological history, curren t medicalstatus, and results of othe r diagnostic eval uations. TheT-SPOT.TB te st is qualitative and results are reported aspositive, bor derline or negative, gi tere that the testcontrol s perform as expe cted. In line with the C enters forDisease Cont rol and Prevention's 20 10 recommendation toreport quantitative measurements al ongside the qualitative result, the laboratory provides spot counts forinformationa l purposes only. The T-SPOT.TB test should notbe interpret ed as a quantitative te st. Tspot TB 0 Panel A (test code = 9397) Tspot TB 0 Panel B (test code = 9398) Tspot TB Pos Passed Lab test perfor med Cont (test by:Lab Mnemonic : code = 9399) [id number] TB, [id number] [facility], N [address]RMDPV BAYRON TIRADO MD,PHD Tspot TB NIL Passed Cont (test code = 9396) RHIANNA (test If scheduling this code = RHIANNA) lab at one of the following locations, it can only be collected on Sunday, Sunday, and Sunday due to collection/process ing restrictions:[facility] DIAG LAB [facility] DIAG LAB [facility] DIAG LAB [facility] - [facility] DI[facility] CTR [facility] CenterComplete PFT (Kale, DLCO, LV) 2021-12-01 00:00:00 Test Item Value Reference Range Interpretation Comments FVC (L) post (test code 2.307 L 1.634-2.859 = 9508) FEV1 (L) post (test code 1.381 L 1.144-2.181 = 9506) FEV1/FVC (%) post (test 59.869 % 64.440-84.028 L code = 9510) FVC (L) pre (test code = 2.169 L 1.634-2.859 9507) FEV1 (L) pre (test code 1.289 L 1.144-2.181 = 9505) FEV1/FVC (%) pre (test 59.434 % 64.440-84.028 L code = 9509) TLC (L) (test code = 7.084 L 3.321-5.295 H 9513) RV (L) (test code = 4.915 L 1.442-2.593 H 9514) RV/TLC (%) (test code = 69.382 % 35.890-55.070 H 9517) DLCO_SB ml/(min*mmHg) 12.689 See_Comment [Auto mated message] (test code = 9515) The syste m which generated this result transmitted ref erence range: 3.035 - 23.202 ml/(min*mmHg). The reference range was not used to int erpret this result as normal/abnormal . DLCOc_SB ml/(min*mmHg) 12.651 See_Comment [Aut omated message] (test code = 9516) The syste m which generated this result transmitted ref erence range: 3.035 - 23.202 ml/(min*mmHg). The reference range was not used to int erpret this result as normal/abnormal . FVC (% pred) pre (test 97 % code = 9520) FVC (% pred) post (test 103 % code = 9521) FEV1 (%pred) pre (test 78 % code = 9518) FEV1 (% pred) post (test 83 % code = 9519) FEV1/FVC (% pred) pre 80 % (test code = 9522) FEV1/FVC (% pred) post 81 % (test code = 9523) TLC (% pred) (test code 164 % = 9526) RV (% pred) (test code = 244 % 9527) RV/TLC (% pred) (test 153 % code = 9528) DLCO_SB (% pred) (test 97 % code = 9529) DLCOc_SB (% pred) (test 96 % code = 9530) Lab Interpretation (test Abnormal code = 94844-4) [facility] Review 2021-11-30 21:02:28Crypto Ag, Serum PRReviewed and Electronically signed by Pathologist:ISAÍAS SANTANA MD #[id number] [facility]ENTERUnTexas [facility] SouthlakeCryptococcal Antigen, [id number] 16:40:56 Test Item Value Reference Range Interpretation Comments Cryptococcal Ag Screen Serum Interp Negative Negative (test code = 31140-6) [facility] HospitalHepatitis B Total Ig Core Ab (SCREENING) (anti-HBc total Ig; HBcAb total Ig)2021-11-30 15:37:34 Test Item Value Reference Range Interpretation Comments HBcAb. (test code = 5742) Non Reactive Non Reactive [facility]
[2022-03-03 13:10] VITALS: BMI 19.0
--- NOTE | 2022-03-03 13:46 | P.HP ---
Certification for Inpatient Patient admitted to: Observation With expected LOS: <2 Midnights <Dianne Alcaraz - Last Filed: 03/03/22 13:56> Patient History Date of Service: 03/03/22 Primary Care Provider: Sheba Espinoza Reason for admission: Chest pain History of Present Illness: Pt is a 76 yo female with a history of lung cancer and COPD who went to the [facility] today for a complaint of constipation x 5 days. Pt states she passed some blood and some "mud" appearing stool but has no relief. While at [facility] ED Ms. Jennings had a sudden episode of Chest pain, heavy weak feeling to bilateral arms, with radiation to her back and nausea. Dr. Hamilton was contacted and states pt needs emergent cardiac cath. Pt was transferred to [facility] via EMS with a negative Sars, chest pain that is still present but improved, and constipation. Guaiac on exam negative, + hemorrhoids. Pt states she has not been feeling well since her Daughter (suicide) two weeks ago. States she has just been concentrating on taking care of family and getting back to work. Pt did take decadron a couple of days ago SL instead of her zofran. Otherwise no changes to medications: last dose of Eliquis last pm at 1800. Home medications list reviewed: Yes - Past Medical/Surgical History Has patient received pneumonia vaccine in the past: Yes Diabetic: No -: Hypertension -: CAD -: GERD -: COPD -: Tobacco abuse -: Lung Ca -: Colon polyps -: Heart catheterization -: Removal of colon polyps -: Dilatation and Curettage -: Shoulder tumor removal Psychosocial/ Personal History: The patient is a . 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 She has 3 children. - Family History Mother History Unknown: Yes -: Cancer Notes: Brain tumor - Social History Smoking Status: Former smoker Alcohol use: No CD- Drugs: No Caffeine use: Yes Place of Residence: Home <Dianne Alcaraz - Last Filed: 03/03/22 13:56> Date of Service: 03/03/22 <Reggie Goldberg - Last Filed: 03/03/22 14:38> Allergies clindamycin Allergy (Verified 08/23/18 10:56) Itching/Hives/Rash Home Medications: Budesonide/Formoterol Fumarate [Symbicort 80-4.5 Mcg Inhaler] 2 puff IH BID PRN 06/15/14 Albuterol Sulfate [Proair Digihaler] 90 mcg PO PRN 03/03/22 Apixaban [Eliquis] 5 mg PO Q12H 03/03/22 Ascorbic Acid [Vitamin C] 500 mg PO DAILY 03/03/22 Calcium Carbonate [Tums Regular*] 500 mg PO DAILY 03/03/22 Cholecalciferol (Vitamin D3) [Vitamin D3] 1,000 unit PO DAILY 03/03/22 Esomeprazole Mag Trihydrate [Nexium] 40 mg PO DAILY 03/03/22 Fluticasone Propion/Salmeterol [Airduo Digihaler 232-14 Mcg] 232 mcg PO PRN 03/03/22 Folic Acid/Vit B Complex and C [B-Complex Plus Vitamin C Cplt] 400 mcg PO DAILY 03/03/22 Metoprolol Tartrate [Lopressor*] 50 mg PO DAILY 03/03/22 Ondansetron [Ondansetron Odt] 8 mg PO Q8H PRN 03/03/22 dexAMETHasone [Dexamethasone] 4 mg PO SEECOM 03/03/22 Review of Systems General: As per HPI Eyes: Unremarkable ENT: Unremarkable Respiratory: Unremarkable Cardiovascular: Chest Pain Gastrointestinal: Nausea, Constipation, Melena Genitourinary: Unremarkable Musculoskeletal: Arm Pain Integumentary: Unremarkable Neurological: Unremarkable <Dianne Alcaraz - Last Filed: 03/03/22 13:56> Physical Examination - Vital Signs Temperature: 97.5 F Blood Pressure: 123/70 Pulse: 65 Respirations: 14 Pulse Ox (%): 97 - Physical Exam General: Alert, In no apparent distress, Oriented x3 HEENT: Atraumatic, Normocephalic Neck: Supple, JVD not distended Respiratory: Clear to auscultation bilaterally Cardiovascular: No edema, Normal pulses, Regular rate/rhythm Capillary refill: <2 Seconds Gastrointestinal: Normal bowel sounds, Tenderness (Mild to left lower quad, guaiac negative, + stool present in vault) Musculoskeletal: No clubbing, No swelling Integumentary: Other (ecchymosis) Neurological: Normal speech, Normal strength at 5/5 x4 extr, Normal tone Rectal: No tenderness, Other (hemmorhoids) <Dianne Alcaraz Stewart Filed: 03/03/22 13:56> Assessment and Plan - Problems (Diagnosis) (1) Chest pain Current Visit: Yes Status: Acute Plan: Consult Dr. Hamilton, serial troponins. Pt to have stat trop now and repeat at 1800. If stable, Dr. Hamilton will cath as outpatient Qualifiers: Chest pain type: precordial pain Qualified Code(s): R07.2 - Precordial pain (2) Constipation Current Visit: Yes Status: Acute Plan: IVF, dulcolax suppository, avoid zofran overuse Qualifiers: Constipation type: drug induced constipation Qualified Code(s): K59.03 - Drug induced constipation Discharge Plan: Home Plan to discharge in: 24 Hours - Advance Directives Does patient have a Living Will: No Does patient have a Durable POA for Healthcare: No - Code Status/Comfort Care Code Status Assessed: Yes Critical Care: No Time Spent Managing Pts Care (In Minutes): 60 <Dianne Alcaraz - Last Filed: 03/03/22 13:56> Physician Review: Patient Assessed, Agree with Above Assessment and Plan <Reggie Goldberg - Last Filed: 03/03/22 14:38>
[2022-03-03] MEDS: ALBUTEROL 2.5 MG/3 ML NEB SOL NEB SCH ×2 (14:00→20:10)
--- NOTE | 2022-03-03 14:46 | RAD REPORT ---
EXAM DESCRIPTION: RAD - Chest Pa And Lat (2 Views) - 03/03/2022 2:15 pm CLINICAL HISTORY: Chest pain COMPARISON: Chest Single View dated 08/18/2020; Chest Pa And Lat (2 Views) dated 09/20/2017; Chest Singl e View dated 09/19/2017; CHEST PA AND LAT 2 VIEW dated 02/15/2010; Thorax Wo Con dated 12/02/2018 FINDINGS: Lines: None. Lungs: No evidence of edema or pneumonia. Possible developing nodule to left lung apex. Pleural: No significant pleural effusions or pneumothorax. Cardiac: The heart size is within normal limits. Atherosclerosis . Mediastinum: Within normal limits. Bones: No acute fractures. Other: None IMPRESSION: No acute cardiopulmonary disease. Left upper lobe nodular opacity may represent a conflu ence of osseous structures but the appearance has changed compared with 08/18/2020. Consider chest CT for further evaluation.
[2022-03-03 14:57] LABS: Absolute Lymphocytes (CBC) 1.7 K/uL (0.7-4.9); Hematocrit 36.9 % (36.0-45.0); Lymphocytes % 14.4 % (15.3-44.8); MCV 91.8 fL (80-100); MPV 6.9 fL (7.6-11.3); RBC Red Blood Cell Count 4.01 M/uL (3.86-4.86)
[2022-03-03 15:01] LABS: Protime INR 1.05
[2022-03-03 15:08] LABS: Albumin 3.7 g/dL (3.4-5.0); Bilirubin Total 0.4 mg/dL (0.2-1.0); CKMB Creatine Kinase MB 8.4 ng/mL (1.0-3.6); Magnesium 2.2 mg/dL (1.8-2.4); Potassium 3.5 mmol/L (3.5-5.1); Protein, Total 7.1 g/dL (6.4-8.2)
[2022-03-03] MEDS ORDERED: ASPIRIN 81 MG CHEWABLE TABLET PO ONE (15:38)
[2022-03-03] MEDS: HEPARIN/D5W 25,000 UNIT/500 ML BAG IV PRN (16:24)
[2022-03-03] MEDS ORDERED: BISACODYL 10 MG RECTAL SUPP PR ONE (20:00)
[2022-03-03] MEDS: DOCUSATE NA 100 MG CAP PO SCH (21:00)
[2022-03-03 21:12] LABS: CKMB Creatine Kinase MB 7.1 ng/mL (1.0-3.6)
[2022-03-03] MEDS ORDERED: HEPARIN 5000 UNIT/ML 1 ML VIAL IV SCH (22:00)
[2022-03-03] MEDS: MORPHINE 2 MG/ML SYR IV PRN (22:18)
[2022-03-03] MEDS: NA CHLORIDE 0.9% 1,000 ML IV SCH (22:18)
[2022-03-03 22:19] LABS: Urine Bacteria <20 /HPF (<20); Urine Bilirubin NEGATIVE (Negative); Urine Blood Negative (Negative); Urine Clarity Clear (Clear); Urine Color Colorless (Yellow); Urine Glucose NEGATIVE (Negative); Urine Mucus Slight /HPF (None Seen); Urine Protein NEGATIVE (Negative); Urine RBC <5 /HPF (None Seen); Urine Urobilinogen Normal (Normal); Urine pH 6.5 (5.0-7.0)
[2022-03-04] MEDS: ALBUTEROL 2.5 MG/3 ML NEB SOL NEB SCH (01:43)
[2022-03-04] MEDS ORDERED: MORPHINE 2 MG/ML SYR IV ONE (02:42)
[2022-03-04] MEDS: ONDANSETRON 4 MG/2 ML VIAL IV PRN ×3 (06:43→22:20)
[2022-03-04] MEDS: METOPROLOL TAR 50 MG TAB PO SCH (08:28)
[2022-03-04] MEDS: DOCUSATE NA 100 MG CAP PO SCH ×2 (08:29→22:09)
[2022-03-04 09:18] LABS: CKMB Creatine Kinase MB 3.2 ng/mL (1.0-3.6)
[2022-03-04] MEDS ORDERED: HEPARIN 5000 UNIT/ML 1 ML VIAL SQ ONE ×2 (09:49→14:00)
[2022-03-04] MEDS: NA CHLORIDE 0.9% 1,000 ML IV SCH ×3 (10:03→22:09)
[2022-03-04] MEDS ORDERED: FLEET ENEMA ADULT PR ONE (11:27)
[2022-03-04] MEDS: POLYETHYL GLY 3350 17 GM/DOSE PO PRN ×2 (11:48→22:09)
[2022-03-04 13:44] LABS: Absolute Lymphocytes (CBC) 0.9 K/uL (0.7-4.9); Hematocrit 35.6 % (36.0-45.0); Lymphocytes % 10.2 % (15.3-44.8); MCV 93.1 fL (80-100); MPV 7.2 fL (7.6-11.3); RBC Red Blood Cell Count 3.82 M/uL (3.86-4.86)
[2022-03-04 13:49] LABS: Protime INR 1.09
[2022-03-04 13:57] LABS: Bilirubin Total 0.6 mg/dL (0.2-1.0); Phosphorus 3.1 mg/dL (2.5-4.9); Protein, Total 6.1 g/dL (6.4-8.2)
--- NOTE | 2022-03-04 14:39 | RAD REPORT ---
EXAM DESCRIPTION: Harsh Pa And Lat (2 Views)03/04/2022 2:25 pm CLINICAL HISTORY: Chest pain COMPARISON: January 2022 FINDINGS: Left upper lobe opacity without obvious change The l remainder of ungs appear clear of acute infiltrate. Lungs are moderately hyperaerated. The heart is normal size IMPRESSION: Left upper lobe opacity. Unenhanced chest recommended for further evaluation COPD
--- NOTE | 2022-03-04 16:55 | P.PN ---
Subjective Date of Service: 03/04/22 Primary Care Provider: Sheba Espinoza Chief Complaint: Chest pain Subjective: No new changes Her troponin was elevated, but down-trended since admission. She reports minimal chest pain, graded 2/10 in severity this morning. Otherwise, she reports feeling well this morning, without palpitations or shortness of breath. Review of Systems 10-point ROS is otherwise unremarkable Cardiovascular: Chest Pain (minimal) Physical Examination - Vital Signs Temperature: 99.7 F Blood Pressure: 111/61 Pulse: 78 Respirations: 14 Pulse Ox (%): 98 - Physical Exam General: Alert, In no apparent distress, Oriented x3 HEENT: Atraumatic, PERRLA, Mucous membr. moist/pink, EOMI, Sclerae nonicteric Neck: Supple, JVD not distended Respiratory: Clear to auscultation bilaterally, Normal air movement Cardiovascular: No edema, Regular rate/rhythm, Normal S1 S2, No gallops, No rubs, No murmurs Gastrointestinal: Normal bowel sounds, Soft and benign, Non-distended, No tenderness, No rebound, No guarding Musculoskeletal: No clubbing Integumentary: No rashes Neurological: Normal speech, Cranial nerves 3-12 intact, Normal affect - Studies Laboratory Data (last 24 hrs) 03/04/22 13:17: Sodium 138, Potassium 4.0 D, BUN 16, Creatinine 0.87, Glucose 89, Phosphorus 3.1, Magnesium 2.0, Total Bilirubin 0.6, AST 25, ALT 28, Alkaline Phosphatase 71 03/04/22 13:17: PT 12.0, INR 1.09, APTT 40.3 H 03/04/22 13:17: WBC 8.50, Hgb 11.6 L, Hct 35.6 L, Plt Count 261 03/04/22 08:58: APTT 43.5 H 03/04/22 08:50: Triglycerides 144, Cholesterol 172, HDL Cholesterol 81 H, Cholesterol/HDL Ratio 2.12 03/04/22 03:45: APTT Cancelled 03/04/22 03:24: APTT Cancelled 03/04/22 02:30: APTT 123.9 H* 03/03/22 23:24: APTT Cancelled 03/03/22 20:27: APTT 35.1 Assessment And Plan - Plan # Non-ST Segment Elevation Myocardial Infarction # History of Coronary Artery Disease # Hypertension - Evaluation thus far: - EKG: without STEMI criteria, trend - Serial troponin: 2232.5 -> 1881.6 -> 1126.9 - Ordered transthoracic echocardiogram - Chest x-ray = "left upper lobe opacity. Unenhanced chest recommended for further evaluation. COPD " - Management plan: - Consult Cardiology and spoke with Dr. Henderson - recommendations appreciated - Plan for [facility] on 03/[facility]/2022 - S/P aspirin 324 mg PO x 1 yesterday - Continue aspirin, metoprolol, heparin drip - Started atorvastatin - Consider starting LESLI-inhibitor/ARB if blood pressure allows # Tobacco Use Disorder - Tobacco cessation counseling provided # Chronic Obstructive Pulmonary Disease # Gastroesophageal Reflux Disease - Continue home medications once verified Reggie Goldberg M.D.
--- NOTE | 2022-03-04 19:14 | RAD REPORT ---
EXAM DESCRIPTION: CT - Thorax Wo Con - 03/04/2022 6:50 pm CLINICAL HISTORY: Chest pain/abnormal chest x-ray COMPARISON: Chest x-ray March 04, 2022 TECHNIQUE: Computed axial tomography of the chest was obtained. Contrast was not requested. All CT scans are performed using dose optimization technique as appropriate and may include automated exposure control or mA/KV adjustment according to patient size. FINDINGS: The evaluation of mediastinum, dano and vessels is limited secondary to lack of IV contras t administration. A 2.5 x 1 centimeter left upper lobe opacity. A 7 millimeter nodule posterior left upper lobe abuts the fissure. Minimal right lung opacities No mediastinal or hilar lymphadenopathy is seen. A pleural effusion is not present. No pericardial effusion Coronary arterial calcifications Hepatic cysts IMPRESSION: 2.5 x 1 centimeter left upper lobe opacity suspicious for neoplasm. 7 millimeter nodule posterior left upper lobe may be neoplastic or inflammatory.
[2022-03-04] MEDS: ATORVASTATIN 40 MG TAB PO SCH (22:08)
[2022-03-04] MEDS: MORPHINE 2 MG/ML SYR IV PRN (22:20)
[2022-03-05] MEDS: METOPROLOL TAR 50 MG TAB PO SCH (08:43)
[2022-03-05] MEDS: NA CHLORIDE 0.9% 1,000 ML IV SCH ×2 (08:43→17:11)
[2022-03-05] MEDS: HEPARIN/D5W 25,000 UNIT/500 ML BAG IV PRN (08:43)
[2022-03-05] MEDS: DOCUSATE NA 100 MG CAP PO SCH ×2 (08:43→21:00)
[2022-03-05] MEDS ORDERED: HEPARIN 5000 UNIT/ML 1 ML VIAL SQ ONE (15:44)
--- NOTE | 2022-03-05 15:58 | EKG ---
Test Date: 2022-03-03 Test Time: 20:43:01 Collection Advisor: RT MEASUREMENT RESULTS: Intervals: Rate: 63 OK: 162 QRSD: 88 QT: 434 QTc: 444 [place]: P: 63 OK: 162 QRS: 24 T: 92 INTERPRETIVE STATEMENTS: Normal sinus rhythm Indeterminate axis ST & T wave abnormality, consider anterolateral ischemia Abnormal ECG Compared to ECG 08/18/2020 12:15:44 Indeterminate axis now present ST (T wave) deviation now present Possible ischemia now present Sinus bradycardia no longer present Incomplete right bundle-branch block no longer present Electronically Signed On 03-05-22 15:54:44 CDT by Guanaco Henderson
--- NOTE | 2022-03-05 17:48 | P.PN ---
Subjective Date of Service: 03/05/22 Primary Care Provider: Sheba Espinoza Chief Complaint: Chest pain No acute events overnight. She denies any chest pain this morning. She endorses no concerns this morning. She appears comfortable eating breakfast. Review of Systems 10-point ROS is otherwise unremarkable Cardiovascular: Chest Pain (intermittent) Physical Examination - Vital Signs Temperature: 97.7 F Blood Pressure: 143/65 Pulse: 63 Respirations: 14 Pulse Ox (%): 100 - Studies Laboratory Data (last 24 hrs) 03/05/22 10:55: APTT 43.6 H 03/05/22 06:45: APTT 54.7 H 03/05/22 00:59: APTT 88.9 H 03/04/22 18:50: APTT 86.5 H Assessment And Plan - Plan - Physical Exam General: Alert, In no apparent distress, Oriented x3 HEENT: Atraumatic, PERRLA, Mucous membr. moist/pink, EOMI, Sclerae nonicteric Neck: Supple, JVD not distended Respiratory: Clear to auscultation bilaterally, Normal air movement Cardiovascular: No edema, Regular rate/rhythm, Normal S1 S2, No gallops, No rubs, No murmurs Gastrointestinal: Normal bowel sounds, Soft and benign, Non-distended, No tenderness, No rebound, No guarding Musculoskeletal: No clubbing Integumentary: No rashes Neurological: Normal speech, Cranial nerves 3-12 intact, Normal affect # Non-ST Segment Elevation Myocardial Infarction # History of Coronary Artery Disease # Hypertension - Evaluation thus far: - EKG: without STEMI criteria, trend - Serial troponin: 2232.5 -> 1881.6 -> 1126.9 - Ordered transthoracic echocardiogram - Chest x-ray = "left upper lobe opacity. Unenhanced chest recommended for further evaluation. COPD " - Management plan: - Consult Cardiology and spoke with Dr. Henderson - recommendations appreciated - Plan for [facility] on 03/06/2022 - S/P aspirin 324 mg PO x 1 yesterday - Continue aspirin, metoprolol, heparin drip - Started atorvastatin - Consider starting LESLI-inhibitor/ARB if blood pressure allows # Stage II Lung Cancer s/p Carboplatin, Pemetrexed, Nivolumab (first dose 02/27/2022) # Tobacco Use Disorder - Tobacco cessation counseling provided - Follow-up at [facility] as previously scheduled # Chronic Obstructive Pulmonary Disease # Gastroesophageal Reflux Disease - Continue home medications once verified -No new changes today. NPO after midnight for [facility] tomorrow. Reggie Goldberg M.D.
[2022-03-05] MEDS: ATORVASTATIN 40 MG TAB PO SCH (21:00)
[2022-03-05] MEDS: ONDANSETRON 4 MG/2 ML VIAL IV PRN (22:42)
[2022-03-05] MEDS: MORPHINE 2 MG/ML SYR IV PRN (22:43)
[2022-03-06] MEDS: NA CHLORIDE 0.9% 1,000 ML IV SCH ×3 (02:56→22:06)
[2022-03-06 06:31] LABS: Absolute Lymphocytes (CBC) 1.3 K/uL (0.7-4.9); Hematocrit 31.3 % (36.0-45.0); Lymphocytes % 23.6 % (15.3-44.8); MCV 90.8 fL (80-100); MPV 6.9 fL (7.6-11.3); RBC Red Blood Cell Count 3.45 M/uL (3.86-4.86)
[2022-03-06 06:40] LABS: Potassium 3.2 mmol/L (3.5-5.1)
[2022-03-06] MEDS ORDERED: HEPA 1000U/500MLS 2,000 UNIT/1,000 ML BAG IV ONE (06:56)
[2022-03-06] MEDS: DOCUSATE NA 100 MG CAP PO SCH ×2 (09:00→22:06)
[2022-03-06] MEDS: METOPROLOL TAR 50 MG TAB PO SCH (09:21)
[2022-03-06] MEDS: ONDANSETRON 4 MG/2 ML VIAL IV PRN ×2 (09:27→22:06)
[2022-03-06] MEDS ORDERED: HEPARIN 5000 UNIT/ML 1 ML VIAL ONE (11:29)
[2022-03-06] MEDS ORDERED: VERAPAMIL HCL 10 MG/4 ML VIAL IV ONE (11:30)
[2022-03-06] MEDS ORDERED: HEPA 1000U/500MLS 1,000 UNIT/500 ML BAG IV ONE (13:59)
[2022-03-06] MEDS ORDERED: HEPARIN 10,000 UNIT/10 ML VIAL IV ONE (14:09)
[2022-03-06] MEDS ORDERED: FENTANYL CITR 100 MCG/2 ML ONE (14:10)
[2022-03-06] MEDS ORDERED: MIDAZOLAM HCL 2 MG/2 ML INJ ONE (14:10)
--- NOTE | 2022-03-06 14:25 | CON ---
Date of Consultation: 03/03/2022 Admitting Diagnosis: [id number] myocardial infarction. History Of Present Illness: Ms. Jennings is 76, has a history of recent diagnosis of lung cancer, just started chemotherapy; hypertension; COPD; gastroesophageal reflux disease, had gone to [facility] with chest pain, positive troponin, transferred here for further workup. Allergies: SHE IS ALLERGIC TO CLINDAMYCIN. Medication At Home: Include Nexium, Eliquis, metoprolol. Eliquis has been held. Review of Systems: Negative. Social History: Positive for tobacco. Family History: Noncontributory. Physical Examination: Done by Dr. Goldberg and Dr. [place]ton showed: Vital Signs: Stable, afebrile. HEENT: Negative. Neck: Supple with no bruit. Chest: Clear. Cardiac: Normal. Abdomen: Benign. Extremities: No clubbing, cyanosis, or edema. Diagnostic Data: Showed elevated troponin. Chest CT and chest x-ray showed left upper lobe mass. Impression And Plan: 1.Tbr-KH-prvlvtkko myocardial infarction. 2.Lung cancer. 3.Hypertension. 4.Chronic obstructive pulmonary disease. 5.Gastroesophageal reflux disease. Plan: To hold Eliquis. Continue metoprolol and Nexium. Plan for a heart catheterization on [address] Hamilton. We will continue to follow. LISBETH/LONNIE Voice ID: [id number] Report ID: [id number]
[2022-03-06] MEDS ORDERED: TICAGRELOR 90 MG TABLET PO ONE (14:31)
[2022-03-06] MEDS ORDERED: ATROPINE SULF 1 MG/10 ML SYR IV ONE (14:31)
[2022-03-06] MEDS ORDERED: ASPIRIN 325 MG TAB ONE (14:31)
[2022-03-06] MEDS ORDERED: CLOPIDOGREL 75 MG TABLET ONE (14:31)
[2022-03-06] MEDS: POLYETHYL GLY 3350 17 GM/DOSE PO PRN (16:37)
[2022-03-06] MEDS: MORPHINE 2 MG/ML SYR IV PRN (22:06)
[2022-03-06] MEDS: ATORVASTATIN 40 MG TAB PO SCH (22:06)
--- NOTE | 2022-03-07 02:28 | OP ---
Date of Procedure: 03/06/2022 Surgeon: KENN SANCHEZ Procedures Performed: 1.Selective coronary angiogram. 2.Left heart catheterization. Indication: Non-ST elevation myocardial infarction. Access: Right radial artery 6-[place] closed with TR band. Complications: None. Estimated Blood Loss: Bleeding less than 10 mL. Description Of Procedure: After risks, benefits, and alternatives were explained, the patient agreed to procedure and signed informed consent. Patient was brought into the cardiac catheterization labo ratory and prepped and draped in sterile fashion. Then I accessed right radial artery using [employer] c micropuncture kit. Gave fentanyl and Versed in incremental doses to achieve adequate sedation. Th en, took a 5-[place] 4 catheter into aortic root, engaged left main and right coronary artery, t ook standard views, and the catheter was pushed over the wire into the LV and obtained LVEDP. Pullba ck did not record any gradient and removed the catheter and sheath and placed TR band with good hemos tasis. Findings: 1.Left main is large and normal. 2.LAD: Large vessel with mid 60%-70% stenosis, otherwise no abnormalities. 3.Left circumflex is normal with luminal irregularities. 4.RCA: Proximal to mid luminal irregularities, distally about 20% disease is present. Conclusion: Moderate coronary artery disease as outlined above. Recommendation: Outpatient exercise nuclear stress test. If abnormal, then we will plan for PCI of the mid LAD. SR/MODL Voice ID: [id number] Report ID: [id number]
[2022-03-07 06:20] LABS: Absolute Lymphocytes (CBC) 1.1 K/uL (0.7-4.9); Hematocrit 29.3 % (36.0-45.0); Lymphocytes % 18.8 % (15.3-44.8); MCV 90.4 fL (80-100); MPV 6.7 fL (7.6-11.3); RBC Red Blood Cell Count 3.24 M/uL (3.86-4.86)
[2022-03-07 06:24] LABS: Potassium 3.1 mmol/L (3.5-5.1)
--- NOTE | 2022-03-07 06:54 | ECHO ---
HEIGHT: 5 ft 2 in WEIGHT: 104 lb 0 oz DATE OF STUDY: 03/06/[address]: Reggie Goldberg MD 2-DIMENSIONAL: YES M.MODE: YES DOPPLER: YES COLOR FLOW: YES TDS: PORTABLE: YES DEFINITY: BUBBLE STUDY: DIAGNOSIS: NON ST ELEVATION MYOCARDIAL INFARCTION CARDIAC HISTORY: CATHERIZATION: YES SURGERY: NO PROSTHETIC VALVE: NO PACEMAKER: NO MEASUREMENTS (cm) DIASTOLIC (NORMALS) SYSTOLIC (NORMALS) IVSd 1.1 (0.6-1.2) LA Diam 2.6 (1.9-4.0) LVEF 60-65% LVIDd 4.5 (3.5-5.7) LVIDs 2.6 (2.0-3.5) %FS 42% LVPWd 1.2 (0.6-1.2) Ao Diam 2.5 (2.0-3.7) 2 DIMENSIONAL ASSESSMENT: RIGHT ATRIUM: NORMAL LEFT ATRIUM: NORMAL RIGHT VENTRICLE: NORMAL LEFT VENTRICLE: NORMAL TRICUSPID VALVE: MILD TRICUSPID REGURGITATION MITRAL VALVE: MILD MITRAL REGURGITATION PULMONIC VALVE: MILD PULMONIC INSUFFICIENCY AORTIC VALVE: NORMAL PERICARDIAL EFFUSION: NONE AORTIC ROOT: NORMAL LEFT VENTRICULAR WALL MOTION: NORMAL DOPPLER/COLOR FLOW: SEE BELOW COMMENTS: NORMAL LEFT VENTRICULAR EJECTION FRACTION 60-65% WITH NORMAL WALL MOTION. MILD MITRAL REGURGITATION, TRICUSPID REGURGITATION, PULMONIC INSUFFICIECNY. TECHNOLOGIST: ALESSANDRO GARCIA
[2022-03-07 08:46] VITALS: BP 123/57; TEMP 97.4
[2022-03-07] MEDS: NA CHLORIDE 0.9% 1,000 ML IV SCH (08:57)
--- NOTE | 2022-03-07 08:57 | P.PN ---
Subjective Date of Service: 03/06/22 Subjective: No new changes, No C/O voiced, Improving Cardiac catheterization today Review of Systems 10-point ROS is otherwise unremarkable Physical Examination - Vital Signs Temperature: 97.4 F Blood Pressure: 123/57 Pulse: 64 Respirations: 16 Pulse Ox (%): 96 - Physical Exam General: Alert, In no apparent distress HEENT: Atraumatic, PERRLA, EOMI Neck: Supple, JVD not distended Respiratory: Clear to auscultation bilaterally, Normal air movement Cardiovascular: Regular rate/rhythm, Normal S1 S2 Gastrointestinal: Normal bowel sounds, No tenderness Musculoskeletal: No tenderness Integumentary: No rashes Neurological: Normal speech, Normal tone, Normal affect Lymphatics: No axilla or inguinal lymphadenopathy - Studies Laboratory Data (last 24 hrs) 03/07/22 05:53: Sodium 141, Potassium 3.1 L, BUN 10, Creatinine 0.73, Glucose 99 03/07/22 05:53: WBC 5.80, Hgb 10.1 L, Hct 29.3 L, Plt Count 223 03/06/22 11:14: APTT 40.9 H Medications List Reviewed: Yes Assessment & Plan - Problems (Diagnosis) (1) Chest pain Current Visit: Yes Status: Acute Qualifiers: Chest pain type: precordial pain Qualified Code(s): R07.2 - Precordial pain (2) COPD (chronic obstructive pulmonary disease) Onset Date: 09/20/17 Current Visit: No Status: Acute Qualifiers: COPD type: COPD with acute exacerbation Qualified Code(s): J44.1 - Chronic obstructive pulmonary disease with (acute) exacerbation (3) CAD (coronary artery disease) Onset Date: 09/20/17 Current Visit: No Status: Chronic Qualifiers: Coronary Disease-Associated Artery/Lesion type: unspecified vessel or lesion type [place] vs. transplanted heart: unspecified whether [place] or transplanted heart Associated angina: angina presence unspecified Qualified Code(s): I25.10 - Atherosclerotic heart disease of [place] coronary artery without angina pectoris (4) GERD (gastroesophageal reflux disease) Onset Date: 09/20/17 Current Visit: No Status: Chronic Qualifiers: Esophagitis presence: esophagitis presence not specified Qualified Code(s): K21.9 - Gastro-esophageal reflux disease without esophagitis (5) Hypertension Onset Date: 09/20/17 Current Visit: No Status: Chronic Qualifiers: Hypertension type: essential hypertension Qualified Code(s): I10 - Essential (primary) hypertension (6) Tobacco abuse Onset Date: 09/20/17 Current Visit: No Status: Chronic - Plan Plan: 1. Cardiac cath today 2. Depending on findings plan of care will be decided 3. Continue with cardiac meds 4. Strict blood pressure control 5. GI DVT prophylaxis Discharge Plan: Home Plan to discharge in: 24 Hours - Advance Directives Does patient have a Living Will: No Does patient have a Durable POA for Healthcare: No - Code Status/Comfort Care Code Status Assessed: Yes Code Status: Full Code Physician Review: Patient Assessed, Agree with Above Assessment and Plan Critical Care: No Time Spent Managing PTS Care (In Minutes): 35
[2022-03-07] MEDS: DOCUSATE NA 100 MG CAP PO SCH (08:58)
[2022-03-07] MEDS: METOPROLOL TAR 50 MG TAB PO SCH (08:58)
[2022-03-07 09:31] LABS: Magnesium 1.9 mg/dL (1.8-2.4); Phosphorus 2.3 mg/dL (2.5-4.9)
[2022-03-07 09:41] VITALS: O2SAT 100
== END 2022-03-07 12:43 | disposition home or self-care (01) | DRG 281 ==
LOC: 4TH 11:28 → INTOOBSV 11:28 → OBSVTOIN 15:25
PROVIDERS: ADMIT Internal Medicine; ATTEND Hospitalist
PROC: 4A023N7 Measurement of Cardiac Sampling and Pressure, Left Heart, Percutaneous Approach (ICD-10-PCS; principal; 2022-03-03)
PROC: B2111ZZ Fluoroscopy of Multiple Coronary Arteries using Low Osmolar Contrast (ICD-10-PCS; 2022-03-03)
DX: I21.4 Non-ST elevation (NSTEMI) myocardial infarction (principal); C34.90 Malignant neoplasm of unspecified part of unspecified bronchus or lung; J44.1 Chronic obstructive pulmonary disease with (acute) exacerbation; I25.10 Atherosclerotic heart disease of native coronary artery without angina pectoris; I10 Essential (primary) hypertension; K64.9 Unspecified hemorrhoids; K21.9 Gastro-esophageal reflux disease without esophagitis; K59.03 Drug induced constipation; T45.0X5A Adverse effect of antiallergic and antiemetic drugs, initial encounter; Z63.4 Disappearance and death of family member; Z88.1 Allergy status to other antibiotic agents; Z79.82 Long term (current) use of aspirin; Z79.01 Long term (current) use of anticoagulants; Z79.899 Other long term (current) drug therapy; Z87.891 Personal history of nicotine dependence; Z85.118 Personal history of other malignant neoplasm of bronchus and lung
CPT/HCPCS: 36415; 71046; 71250; 80048; 80053; 80061; 81001; 82550; 82553; 82947; 83735; 83880; 84100; 84443; 84484; 85025; 85610; 85730; 93005; 93306; 93454; 94640; 94760; C1893; G0378; G0379; J1644; J2250; J2270; J2405; J3010; J7030

== ENCOUNTER 2022-04-23 14:31 | Emergency (ER) | payer OTHER ==
--- OUTSIDE RECORDS SUMMARY | 2022-04-23 14:41 | XMS REPORT | Clinical Summary ---
:1945 Author Organization [facility] MD [facility] Address [address] [place] [address] Care Team Providers Name Role Phone Sheba Velez Unavailable Clay Ahumada MD Unavailable Zhang Abernathy MD Primary Care Provider Sudeep Crouch MD Primary Care Provider Allergies Active Allergy Reactions Severity Noted Date Comments Clindamycin 09/19/2017 Other reaction( s): Itching/Hives/Rash Other reaction( s): Itching/Hives/Rash Medications Medication Sig Dispensed Refills Start Date End Date Status fluticasone propionate Inhale 1 spray 0 11/28/2021 Active (FLONASE) 50 mcg/spray into each nostril nasal spray as needed. metoprolol tartrate Take 1 tablet by 0 08/02/2021 Active (LOPRESSOR) 50 mg mouth twice tablet daily. esomeprazole (NexIUM) Take 40 mg by 0 Active 40 MG capsule mouth every morning before breakfast. albuterol (VENTOLIN Inhale 2 puffs by 0 12/05/2021 Active HFA,PROAIR HFA) 90 mouth as needed. 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 Nicoderm CQ 21 mg/24 hr Apply 1 patch to 28 patch 0 Active transdermal skin and change patchIndications: patch daily as Nicotine dependence directed for tobacco cessation (alternate sites). Additional Information Patient not taking. Reason: No longer taking, Reported on 04/14/2022 Nicorette 2 mg mini Dissolve 1 lozenge (2 162 lozenge 0 2021 Active lozengeIndications: Nicotine mg) in the mouth every dependence 2 (two) hours as needed for smoking cessation. Avoid acidic beverages during, 5 min before/after use Additional Information Patient not taking. Reason: No longer taking, Reported on 04/14/2022 dexamethasone (DECADRON) 4 mg Take 1 tablet (4 mg) by 18 tablet 2 02/24/2022 Active tabletIndications: mouth twice daily. Take Adenocarcinoma, NOS of upper on days 2, 3, and 4 of lobe, lung <Left> each chemotherapy cycle ondansetron (ZOFRAN) 8 mg Take 1 tablet (8 mg) by 30 tablet 3 02/24/2022 Active tabletIndications: mouth every 8 (eight) Adenocarcinoma, NOS of upper hours as needed for lobe, lung <Left> nausea or vomiting. folic acid (FOLVITE) 400 mcg Take 1 tablet (400 mcg) 30 tablet 2 02/24/2022 Active tabletIndications: by mouth daily. Adenocarcinoma, NOS of upper lobe, lung <Left> apixaban (Eliquis) 5 mg Take 1 tablet (5 mg) by 60 tablet 1 Active tabletIndications: mouth every 12 (twelve) Adenocarcinoma of left lung hours. fluticasone propion-salmeteroL Inhale 1 puff by mouth 1 each 0 02/27/2022 Active 232-14 mcg/actuation twice daily. aepbIndications: Adenocarcinoma, NOS of upper lobe, lung <Left>, Simple chronic bronchitis Additional Information Patient not taking. Reason: No longer taking, Reported on 04/14/2022 atorvastatin 0 03/07/2022 Active (LIPITOR) 40 mg tablet baclofen (LIORESAL) 3 (three) times 0 03/10/2022 Active 10 mg tablet a day as needed. senna (SENOKOT) 8.6 Take 1 tablet 0 Active mg tablet by mouth. ProAir HFA 90 Inhale 1 puff 0 09/12/2021 10/03/ D iscontinued (Not mcg/actuation inhaler by mouth as 2021 Applicable) needed. alendronate (FOSAMAX) Take 1 tablet 0 11/16/2021/ Discontinued (Not 70 mg tablet by mouth once a 2021 A pplicable) week. Symbicort 160-4.5 Inhale 1 puff 0 05/26/202112/14/ Discontinued (Not mcg/actuation inhaler by mouth daily. Applicable) fluticasone Inhale 1 puff 0 10/31/202102/27/ Dis continued propion-salmeteroL by mouth twice 2021 (Reorder) 232-14 mcg/actuation daily. aepb calcium carbonate Take 1 tablet 0 03/20/ Discontinued (Not (CALCIUM 500 ORAL) by mouth daily. 2021 Applicable) cholecalciferol, Take 1,000 0 03/20/ Di scontinued (Not vitamin D3, 25 mcg Units by mouth 2021 Applicable) (1,000 unit) capsule daily. ascorbic acid Take 500 mg by 0 03/20/ D iscontinued (Not (VITAMIN C) 500 mg mouth daily. 2021 Applicable) tablet aspirin 325 mg Take 325 mg by 0 12/14/ Discontinued (Not tabletIndications: mouth. 2021 A pplicable) Last Dose: 11/30/21 Nicoderm CQ 21 mg/24 Apply 1 patch 28 patch 0 12/14/202101/17 3/ Discontinued hr transdermal to skin and 2021 (Re order) patchIndications: change patch Nicotine dependence daily as directed for tobacco cessation (alternate sites). Nicorette 2 mg mini Dissolve 1 162 lozenge 0 12/14/202102/07/ Discontinued lozengeIndications: lozenge (2 mg) 2021 (Reorder) Nicotine dependence in the mouth every 2 (two) hours as needed for smoking cessation. Avoid acidic beverages during, 5 min before/after use apixaban (Eliquis) 5 Take 1 tablet 60 tablet 1 01/09/2022 09/0 8/ Discontinued mg tabletIndications: (5 mg) by mouth (Reorder) Adenocarcinoma of every 12 left lung (twelve) hours. apixaban (Eliquis) 5 Take 1 tablet 60 tablet 1 02/23/2022 091 2/ Discontinued mg tabletIndications: (5 mg) by mouth (Reorder) Adenocarcinoma of every 12 left lung (twelve) hours. budesonide-formoterol Inhale by mouth 0 / (Not (SYMBICORT) 160-4.5 twice daily. 2021 Applicable) mcg/actuation inhaler Active Problems Problem Noted Date Cerebral thrombosis [...] Encounters Date Type Specialty Care Team Description 04/17/2022 Infusion Infusion Services Esther Crouch NOS Marcelo, MD of upper lobe, lung <Left> (Primary Dx) 04/17/2022 Telemedicine Thoracic Medicine Esther Crouch NOS Marcelo, MD of upper lobe, lung <Left> (Primary Dx) 04/17/2022 Orders Only Thoracic Medicine Elvia Olmedo, PharmD 04/17/2022 Travel 04/11/2022 Orders Only Thoracic Medicine Sofy Ambrose Adenoc arcjaden, GEORGINA ESTORM of upper lobe, lung <Left> (Primary Dx) 04/10/2022 Office Visit Thoracic Medicine Sofy Ambrose, GEORGINA STORM Brizuela of upper lobe, lung <Left> (Primary Dx) 04/10/2022 Hospital Encounter Lab Moncho Terrell, Adenoc arcinoma, NOS MD Sudeep of upper lobe, lung <Left> 04/10/2022 Refill Thoracic Medicine Cyndy Anglin RN 04/10/2022 Travel 04/07/2022 Ancillary Procedure Radiology IamYu Adeno carcinoma, NOS E, RN AGPCNP of upper lobe, lung <Left> 04/07/2022 Travel 03/27/2022 Telemedicine Hematology AlexGenevieve, Adenocarcin muriel, NOS MD Kirs of upper lobe, lung Keaton Rodriguez, <Left> MD 03/27/2022 Orders Only Hematology Keaton Rodriguez, Cerebral tere ous sinus thrombosi s (Primary Dx) 03/20/2022 Infusion Infusion Services Moncho Terrell, Nadjaca rcinoma, NOS MD Sudeep of upper lobe, lung Condon, Matilda M, <Left> (Bharti lovely Dx) RN 03/20/2022 Consult Pulmonology Kaylie Mota Adenocarcino ma, NOS of upper lobe, lung <Left> 03/20/2022 Hospital Encounter Pulmonology Tammy Giraldo, Inspector Outside [employer] bay bronchitis, PARTS WASHER not otherwise specified 03/20/2022 Office Visit Thoracic Medicine Nadja Crouchca rcinoma, NOS of upper lobe, lung <Left> (Primary Dx); MD Sudeep Cerebral thromb osis; Other chest benjamin n 03/20/2022 Hospital Encounter Lab Moncho Terrell, Adenoc arcinoma, NOS MD Sudeep of upper lobe, lung <Left> 03/20/2022 Orders Only Thoracic Medicine Meredith Young, Adenocarc inoma, NOS PharmD of upper lobe, lung <Left> (Primary Dx) 03/20/2022 Travel 03/09/2022 Documentation Thoracic Medicine Franky Lopez, VALE 03/09/2022 Telephone Thoracic Medicine Sofy Ambrose PA 02/28/2022 Orders Only Pulmonology Tammy Giraldo, Chronic br onchitis, PARTS WASHER not otherwise specified (Prim dany Dx) 02/27/2022 Infusion Infusion Services Moncho Terrell, Adenoca rcinoma, NOS MD Sudeep of upper lobe, lung Julieta Giffordel <Left> (Pr imary Dx) VALE Cole 02/27/2022 Office Visit Thoracic Medicine Moncho Terrell, Adenoca rcinoma, NOS of upper lobe, lung <Left> (Primary Dx); MD Sudeep Adenocarcinoma of left lung; Simple chronic bronchitis; Cerebral thromb osis 02/27/2022 Hospital Encounter Lab Moncho Terrell, Adenoc arcinoma, NOS MD Sudeep of upper lobe, lung <Left> 02/27/2022 Travel 02/23/2022 Telephone Thoracic Medicine Sofy Ambrose PA 02/23/2022 Orders Only Thoracic Medicine Sumeet Ambroserielle Adenoc arcinoma, NOS E, PA of upper lobe, lung <Left> (Primary Dx) 02/23/2022 Orders Only Thoracic Medicine Tra Hollingsworth Adenoca rcinoma, NOS PharmD of upper lobe, lung <Left> (Primary Dx) 02/23/2022 Orders Only Thoracic Medicine Sumeet Ambroserielle Adenoc arcinoma of E, PA left lung 02/17/2022 Orders Only Radiology Ambreen Almeida PA 02/17/2022 Orders Only Thoracic Medicine Franky Lopez, VALE 02/15/2022 Orders Only Thoracic Medicine Cyndy Min APN 02/13/2022 Telephone Thoracic Medicine Indira Carpio RN 02/11/2022 Clinical Support Covid Muriel Leroy PA Suspected COVID-19 Mariama Baez, (Primary Dx ) MA 02/11/2022 Travel 02/08/2022 Orders Only Thoracic Medicine Sofy Ambrose PA 02/07/2022 Ancillary Procedure Radiology Moncho Terrell, Adeno carcinoma, NOS MD Sudeep of upper lobe, lung <Left> 02/07/2022 Travel 02/07/2022 Orders Only Radiology Muriel Leroy PA 02/04/2022 Ancillary Procedure Radiology Moncho Terrell, Adeno carcinoma, NOS MD Sudeep of upper lobe, lung <Left> 02/04/2022 Travel 02/03/2022 Hospital Encounter Pulmonology Moncho Raojan, Adenoc arcinoma, NOS MD Sudeep of upper lobe, lung <Left> 02/03/2022 Hospital Encounter Infusion Services Moncho Terrell, A denocarcinoma, NOS MD Sudeep of upper lobe, lung <Left> 02/03/2022 Hospital Encounter Cardiology Thereselove Pearlkevin, Adenoc arcinoma, NOS MD Sudeep of upper lobe, lung <Left> 02/03/2022 Orders Only Thoracic Medicine Oyewuwo, Franky, Adeno carcinoma, NOS RN of upper lobe, lung <Left> (Primary Dx) 02/03/2022 Orders Only Radiology Muriel Leroy PA 02/03/2022 Orders Only Thoracic Medicine Oyewuwo, Franky, Adeno carcinoma, NOS RN of upper lobe, lung <Left> (Primary Dx) 02/03/2022 Travel 02/01/2022 Orders Only Thoracic Medicine Oyewuwo, Franky, Adeno carcinoma, NOS RN of upper lobe, lung <Left> (Primary Dx) 02/01/2022 Orders Only Thoracic Medicine Oyewuwo, Franky, Adeno carcinoma, NOS RN of upper lobe, lung <Left> (Primary Dx) 01/31/2022 Orders Only Radiology Giorgi Lugo PA 01/31/2022 Orders Only Thoracic Medicine Oyewuwo, Franky, Adeno carcinoma, NOS RN of upper lobe, lung <Left> (Primary Dx) 01/31/2022 Orders Only Thoracic Medicine Sofy Ambrose Adenoc arcinoma, NOS E, PA of upper lobe, lung <Left> (Primary Dx) 01/26/2022 Orders Only Thoracic Medicine Elana Yoon Adeno carcinoma, NOS of upper lobe, lung <Left> (Primary Dx) 01/24/2022 Office Visit Thoracic Medicine Moncho Terrell, Adenoca rcinoma, NOS of upper lobe, lung <Left> (Primary Dx); MD Sudeep Cerebral thromb osis 01/24/2022 Orders Only Thoracic Medicine Sana Wilcox Adenoca rcinoma, NOS M, SHUTTLE DRIVER of upper lobe, lung <Left> (Primary Dx) 01/24/2022 Travel 01/22/2022 Orders Only Thoracic Medicine Vailati Negrao, Adenoca rcinoma, NOS MD Sudeep of upper lobe, lung <Left> (Primary Dx) 01/19/2022 Orders Only Thoracic Medicine Sumeet Ambroserielle Adenoc arcinoma, NOS E, PA of upper lobe, lung <Left> (Primary Dx) 01/13/2022 Telephone Thoracic Medicine Dany Delacruz RN 01/09/2022 Telemedicine Thoracic Medicine Moncho Terrell, Adenoca rcinoma of MD Sudeep left lung 01/09/2022 Orders Only Hematology Lovely Ahumada, MARIE 01/05/2022 Telephone Thoracic Medicine Arnol, Sofy E, PA 01/04/2022 Ancillary Procedure Radiology Sofy Ambrose Cere bral venous sinus thrombosis; E, PA Screening 01/04/2022 Travel 01/03/2022 Hospital Encounter Wade Sorto MD Arnol, Sofy E, PA 01/03/2022 Ancillary Procedure Radiology Sofy Ambrose Jose ocarcinoma of E, PA left lung 01/03/2022 Orders Only Radiology Holley Barbosa MD 01/03/2022 Orders Only Thoracic Medicine Sumeet Ambroserielle Adenoc arcinoma, NOS of upper lobe, lung [...] 12/27/2021 Travel 12/23/2021 Telephone Pulmonology Pedro Penaloza MD 12/21/2021 Anesthesia Event Pulmonology Goldie Magdaleno MD 12/21/2021 Surgery Pulmonology Kaylie Mota, BRONCHOSCOPY WITH EBUS 3 OR MORE NODES 12/21/2021 Hospital Encounter Pulmonology Kaylie Mota Lung m ass 12/21/2021 Orders Only Pulmonology Pedro Penaloza Adenocarcinoma of Ismela, left lung (Prim dany Dx) 12/21/2021 Travel 12/20/2021 Anesthesia Event Anesthesiology Jennie Mcbride, SHUTTLE DRIVER 12/20/2021 Consult Pulmonology Kaylie Mota, Adenocarcino ma of left lung 12/20/2021 Clinical Support Tammy Pandya, Emma lemus COVID-19 (Primary Dx); PARTS WASHER Lung mass Yu Hawk, VALE 12/20/2021 POEM Appointments Anesthesiology Zhang Abernathy MD 12/20/2021 Travel 12/12/2021 Telephone Internal Medicine Zhang Abernathy MD 12/09/2021 Ancillary Procedure Radiology Zhang Abernathy, Inocencia nocarcinoma of left lung 12/09/2021 Documentation Shyanne Muñiz 12/09/2021 Prep for Surgery Pulmonology Tammy Giraldo, Lung m ass (Primary PARTS WASHER Dx) 12/09/2021 Travel 12/08/2021 Telephone Internal Medicine Zhang Abernathy Resul ts MD 12/02/2021 Hospital Encounter Radiology 12/02/2021 Hospital Encounter Radiology 12/02/2021 Hospital Encounter Radiology Zhang Abernathy, Carl iple nodules of lung; Lung mass Jason De Jesus MD 12/02/2021 Travel 12/01/2021 Hospital Encounter Pulmonology Zhang Abernathy Mult iple nodules of lung; Lung mass 12/01/2021 Hospital Encounter Cardiology Zhang Abernathy, Mult iple nodules of lung; Lung mass 12/01/2021 Clinical Support Ella Olmos, Suspecte d COVID-19 PA (Primary Dx) Sandy Chowdhury, VALE 12/01/2021 Hospital Encounter Radiology Zhang Abernathy, Mult iple nodules of lung (Primary Dx); Hypertension; Ella Adame, Current use of antiplatelet; PA Encounter for o ther preprocedural examination 12/01/2021 Orders Only Radiology Olimpia Ding PA 12/01/2021 Travel 11/30/2021 Orders Only Radiology Ella Adame PA 11/29/2021 Ancillary Procedure Radiology Zhang Abernathy, Rhett delgado MD 11/29/2021 Hospital Encounter Lab Zhang Abernathy Mult iple nodules of lung; Lung mass 11/29/2021 Office Visit Internal Medicine Zhang Abernathy, Multi ple nodules of lung; Lung mass 11/29/2021 Travel 11/25/2021 NPR Patient Access Services 11/23/2021 Ancillary Procedure Radiology Cancer 11/23/2021 Ancillary Procedure Radiology Cancer 11/22/2021 Orders Only Internal Medicine Gary Noonan NP on diagnostic imaging of lung (Primary Dx) 11/17/2021 Travel 11/17/2021 Telephone Patient Access Tristen Hanson Services S, RN after 04/23/2021 Immunizations Name Administration Dates Next Due Pneumococcal Polysaccharide 09/20/2017 Surgical History Surgery Date Site/Laterality Comments 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" CORONARY ANGIOPLASTY 06/18/2016 - no interven tion 06/17/2017 CATARACT EXTRACTION Bilateral BILATERAL W/ ANTERIOR VITRECTOMY COLONOSCOPY 06/18/2017 - 3 precancerous p olpys 06/17/2018 removed DILATION AND CURETTAGE OF UTERUS [facility] EBUS GUIDED 12/21/2021 N/A Procedure : BRONCHOSCOPY SAMPL 3/> NODE WITH EBUS 3 OR M ORE NODES; STATION/STRUX Surgeon: Kaylie Mota MD; Location[facility] [place] [facility]; Service: [facility] Medical History Medical History Date Comments Allergic rhinitis 2007 Lung nodule Chronic bronchitis Osteoporosis Arthritis Chronic obstructive pulmonary disease Essential (primary) hypertension Acid reflux Lesion of liver Benign cyst of ovary Screening mammography 2018 WNL Family History Medical History Relation Name Comments Dementia Brother Skin cancer Daughter Brain cancer Mother Mrs Polanco Relation Name Status Comments Brother Daughter Father Mother Mrs Polanco Son Social History Tobacco Use Types Packs/Day Years Used Date Smoking Tobacco: Former Cigarettes 1 62 /0 06/1959 - 01/12/2022 Smokeless Tobacco: Never Tobacco Cessation: Ready to Quit: Yes; C [...] in contact with No / Unsu re 04/17/2022 8:04 AM CDT someone who was confirmed or suspected to have Coronavirus/COVID-19? Obstetrics History Last Filed Vital Signs Vital Sign Reading Time Taken Comments Blood Pressure 120/52 04/17/2022 9:45 AM CDT Pulse 62 04/17/2022 9:45 AM CDT Temperature 36.8 C (98.2 F) 04/17/2022 9:45 AM CDT Respiratory Rate 20 04/17/2022 9:45 AM CDT Oxygen Saturation 98% 04/17/2022 9:45 AM CDT Inhaled Oxygen Concentration - - Weight 46 kg (101 lb 6.6 oz) 04/10/2022 11:14 AM CDT Height 153 cm (5' 0.24") 03/20/2022 10:48 AM CDT Body Mass Index 19.65 03/20/2022 10:48 AM CDT Plan of Treatment Date Type Specialty Care Team Description 05/02/2022 Office Visit Thoracic Surgery Jim Hernadez MD [address] [place], [place] [address] (Wo rk) 05/08/2022 Lab Lab Sofy Ambrose PA [address] [place], [place] [address] (Wo rk) 05/08/2022 Telemedicine Thoracic Medicine Sudeep Crouch MD [address] [place], [place] [address] (Wo rk) 07/31/2022 Office Visit Hematology Keaton Rodrgiuez MD [address] [place], [place] [address] (Wo rk) Health Maintenance Due Date Last Done Comments COVID-19 Vaccination (#1) 04/13/1946 Procedures Procedure Name Priority Date/Time Associated Diagnosis Comme nts FRACTIONATED BILIRUBIN Routine 04/17/2022 8:15 Adenocarcinoma, NOS Results for this AM CDT of upper lobe, lung procedur e are in <Left> the results section. TOTAL PROTEIN Routine 04/17/2022 8:15 Adenocarcinoma, NOS Resu lts for this AM CDT of upper lobe, lung procedur e are in <Left> the results section. ASPARTATE Routine 04/17/2022 8:15 Adenocarcinoma, NOS Resul ts for this AMINOTRANSFERASE AM CDT of upper lobe, lung proc edure are in <Left> the results section. ALANINE Routine 04/17/2022 8:15 Adenocarcinoma, NOS Resul ts for this AMINOTRANSFERASE AM CDT of upper lobe, lung proc edure are in <Left> the results section. ALKALINE PHOSPHATASE Routine 04/17/2022 8:15 Adenocarcinoma, N OS Results for this AM CDT of upper lobe, lung procedur e are in <Left> the results section. ALBUMIN LEVEL Routine 04/17/2022 8:15 Adenocarcinoma, NOS Resu lts for this AM CDT of upper lobe, lung procedur e are in <Left> the results section. CALCIUM LEVEL TOTAL Routine 04/17/2022 8:15 Adenocarcinoma, NO S Results for this AM CDT of upper lobe, lung procedur e are in <Left> the results section. .GLOMERULAR FILTRATION Routine 04/17/2022 8:15 Adenocarcinoma, NOS Results for this RATE AM CDT of upper lobe, lung procedur e are in <Left> the results section. SERUM CREATININE Routine 04/17/2022 8:15 Adenocarcinoma, NOS R esults for this AM CDT of upper lobe, lung procedur e are in <Left> the results section. ELECTROLYTE PANEL Routine 04/17/2022 8:15 Adenocarcinoma, NOS Results for this AM CDT of upper lobe, lung procedur e are in <Left> the results section. BLOOD UREA NITROGEN Routine 04/17/2022 8:15 Adenocarcinoma, NO S Results for this AM CDT of upper lobe, lung procedur e are in <Left> the results section. GLUCOSE LEVEL Routine 04/17/2022 8:15 Adenocarcinoma, NOS Resu lts for this AM CDT of upper lobe, lung procedur e are in <Left> the results section. MANUAL DIFFERENTIAL Routine 04/17/2022 8:15 Adenocarcinoma, NO S Results for this AM CDT of upper lobe, lung procedur e are in <Left> the results section. Results CBC Routine 04/17/2022 8:15 Adenocarcinoma, NOS Resul ts for this AM CDT of upper lobe, lung procedur e are in <Left> the results section. MAGNESIUM LEVEL Routine 04/17/2022 8:15 Adenocarcinoma, NOS Re sults for this AM CDT of upper lobe, lung procedur e are in <Left> the results section. PHOSPHORUS LEVEL Routine 04/17/2022 8:15 Adenocarcinoma, NOS R esults for this AM CDT of upper lobe, lung procedur e are in <Left> the results section. COMPREHENSIVE METABOLIC Routine 04/17/2022 8:15 Adenocarcinoma , NOS PANEL AM CDT of upper lobe, lung <Left> COMPLETE BLOOD COUNT W/ Routine 04/17/2022 8:15 Adenocarcinoma , NOS DIFFERENTIAL AM CDT of upper lobe, lung <Left> MANUAL DIFFERENTIAL Routine 04/10/2022 10:38 Adenocarcinoma, N OS Results for this AM CDT of upper lobe, lung procedur e are in <Left> the results section. Results CBC Routine 04/10/2022 10:38 Adenocarcinoma, NOS Resu lts for this AM CDT of upper lobe, lung procedur e are in <Left> the results section. FRACTIONATED BILIRUBIN Routine 04/10/2022 10:38 Adenocarcinoma , NOS Results for this AM CDT of upper lobe, lung procedur e are in <Left> the results section. TOTAL PROTEIN Routine 04/10/2022 10:38 Adenocarcinoma, NOS Res ults for this AM CDT of upper lobe, lung procedur e are in <Left> the results section. ASPARTATE Routine 04/10/2022 10:38 Adenocarcinoma, NOS Resu lts for this AMINOTRANSFERASE AM CDT of upper lobe, lung proc edure are in <Left> the results section. ALANINE Routine 04/10/2022 10:38 Adenocarcinoma, NOS Resu lts for this AMINOTRANSFERASE AM CDT of upper lobe, lung proc edure are in <Left> the results section. ALKALINE PHOSPHATASE Routine 04/10/2022 10:38 Adenocarcinoma, NOS Results for this AM CDT of upper lobe, lung procedur e are in <Left> the results section. ALBUMIN LEVEL Routine 04/10/2022 10:38 Adenocarcinoma, NOS Res ults for this AM CDT of upper lobe, lung procedur e are in <Left> the results section. CALCIUM LEVEL TOTAL Routine 04/10/2022 10:38 Adenocarcinoma, N OS Results for this AM CDT of upper lobe, lung procedur e are in <Left> the results section. .GLOMERULAR FILTRATION Routine 04/10/2022 10:38 Adenocarcinoma , NOS Results for this RATE AM CDT of upper lobe, lung procedur e are in <Left> the results section. SERUM CREATININE Routine 04/10/2022 10:38 Adenocarcinoma, NOS Results for this AM CDT of upper lobe, lung procedur e are in <Left> the results section. ELECTROLYTE PANEL Routine 04/10/2022 10:38 Adenocarcinoma, NOS Results for this AM CDT of upper lobe, lung procedur e are in <Left> the results section. BLOOD UREA NITROGEN Routine 04/10/2022 10:38 Adenocarcinoma, N OS Results for this AM CDT of upper lobe, lung procedur e are in <Left> the results section. GLUCOSE LEVEL Routine 04/10/2022 10:38 Adenocarcinoma, NOS Res ults for this AM CDT of upper lobe, lung procedur e are in <Left> the results section. FREE THYROXINE Routine 04/10/2022 10:38 Adenocarcinoma, NOS Re sults for this AM CDT of upper lobe, lung procedur e are in <Left> the results section. THYROID STIMULATING Routine 04/10/2022 10:38 Adenocarcinoma, N OS Results for this HORMONE AM CDT of upper lobe, lung procedur e are in <Left> the results section. PHOSPHORUS LEVEL Routine 04/10/2022 10:38 Adenocarcinoma, NOS Results for this AM CDT of upper lobe, lung procedur e are in <Left> the results section. MAGNESIUM LEVEL Routine 04/10/2022 10:38 Adenocarcinoma, NOS R esults for this AM CDT of upper lobe, lung procedur e are in <Left> the results section. COMPLETE BLOOD COUNT W/ Routine 04/10/2022 10:38 Adenocarcinom a, NOS DIFFERENTIAL AM CDT of upper lobe, lung <Left> COMPREHENSIVE METABOLIC Routine 04/10/2022 10:38 Adenocarcinom a, NOS PANEL AM CDT of upper lobe, lung <Left> CT CHEST WO CONTRAST Routine 04/07/2022 9:08 Adenocarcinoma, N OS Results for this AM CDT of upper lobe, lung procedur e are in <Left> the results section. 6 MINUTE WALK TEST Routine 03/20/2022 10:53 Chronic bronchitis , AM CDT not otherwise specified MANUAL DIFFERENTIAL Routine 03/20/2022 7:01 Adenocarcinoma, NO S Results for this AM CDT of upper lobe, lung procedur e are in <Left> the results section. Results CBC Routine 03/20/2022 7:01 Adenocarcinoma, NOS Resul ts for this AM CDT of upper lobe, lung procedur e are in <Left> the results section. FRACTIONATED BILIRUBIN Routine 03/20/2022 7:01 Adenocarcinoma, NOS Results for this AM CDT of upper lobe, lung procedur e are in <Left> the results section. TOTAL PROTEIN Routine 03/20/2022 7:01 Adenocarcinoma, NOS Resu lts for this AM CDT of upper lobe, lung procedur e are in <Left> the results section. ASPARTATE Routine 03/20/2022 7:01 Adenocarcinoma, NOS Resul ts for this AMINOTRANSFERASE AM CDT of upper lobe, lung proc edure are in <Left> the results section. ALANINE Routine 03/20/2022 7:01 Adenocarcinoma, NOS Resul ts for this AMINOTRANSFERASE AM CDT of upper lobe, lung proc edure are in <Left> the results section. ALKALINE PHOSPHATASE Routine 03/20/2022 7:01 Adenocarcinoma, N OS Results for this AM CDT of upper lobe, lung procedur e are in <Left> the results section. ALBUMIN LEVEL Routine 03/20/2022 7:01 Adenocarcinoma, NOS Resu lts for this AM CDT of upper lobe, lung procedur e are in <Left> the results section. CALCIUM LEVEL TOTAL Routine 03/20/2022 7:01 Adenocarcinoma, NO S Results for this AM CDT of upper lobe, lung procedur e are in <Left> the results section. .GLOMERULAR FILTRATION Routine 03/20/2022 7:01 Adenocarcinoma, NOS Results for this RATE AM CDT of upper lobe, lung procedur e are in <Left> the results section. SERUM CREATININE Routine 03/20/2022 7:01 Adenocarcinoma, NOS R esults for this AM CDT of upper lobe, lung procedur e are in <Left> the results section. ELECTROLYTE PANEL Routine 03/20/2022 7:01 Adenocarcinoma, NOS Results for this AM CDT of upper lobe, lung procedur e are in <Left> the results section. BLOOD UREA NITROGEN Routine 03/20/2022 7:01 Adenocarcinoma, NO S Results for this AM CDT of upper lobe, lung procedur e are in <Left> the results section. GLUCOSE LEVEL Routine 03/20/2022 7:01 Adenocarcinoma, NOS Resu lts for this AM CDT of upper lobe, lung procedur e are in <Left> the results section. PHOSPHORUS LEVEL Routine 03/20/2022 7:01 Adenocarcinoma, NOS R esults for this AM CDT of upper lobe, lung procedur e are in <Left> the results section. MAGNESIUM LEVEL Routine 03/20/2022 7:01 Adenocarcinoma, NOS Re sults for this AM CDT of upper lobe, lung procedur e are in <Left> the results section. COMPLETE BLOOD COUNT W/ Routine 03/20/2022 7:01 Adenocarcinoma , NOS DIFFERENTIAL AM CDT of upper lobe, lung <Left> COMPREHENSIVE METABOLIC Routine 03/20/2022 7:01 Adenocarcinoma , NOS PANEL AM CDT of upper lobe, lung <Left> MANUAL DIFFERENTIAL Routine 02/27/2022 8:30 Adenocarcinoma, NO [...] are in REQUEST the results section. AP NTRK2 FUSION Routine 12/27/2021 11:44 Adenocarcinoma of Results for this ANALYSIS MATERIAL AM CDT left lung procedure are in REQUEST the results section. AP NTRK3 FUSION Routine 12/27/2021 11:44 Adenocarcinoma of Results for this ANALYSIS MATERIAL AM CDT left lung procedure are in REQUEST the results section. AP RET FUSION Routine 12/27/2021 11:44 Adenocarcinoma of Re sults for this ANALYSIS MATERIAL AM CDT left lung procedure are in REQUEST the results section. AP ROS1 FUSION Routine 12/27/2021 11:44 Adenocarcinoma of [...] are i n the results section. after 04/23/2021 Results (ABNORMAL) .Serum Creatinine (04/17/2022 8:15 AM CDT)Only the most recent of6 resultswithin the time period is included. athologist Signature Creatinine 1.03 (H) 0.51 - 0.95 [place] mg/dL Comment: Testing performed at [facility], [address] [place] [address] Specimen Anatomical Collection Method Collection Time Receive d Time (Source) Location / / Volume Laterality Blood 04/17/2022 8:15 AM 8:15 CDT AM CDT Sofy INMAN LAB BLOOD ORDERABLES Performing Organization Address City/State/ZIP Code Phon e Number [address] (ABNORMAL) .CBC (04/17/2022 8:15 AM CDT)Only the most recent of6 resultswithin the time period is included. athologist Signature WBC 4.0 4.0 - 11.0 [place] K/uL Comment: All components of the CBC perfo rmed at [facility], [address] [place] [address], [place] 77 3 RBC 3.50 (L) 4.00 - 5.50 M/uL [place] Comment: All components of the CBC perfo rmed at [facility], [address] [place] [address] 3 Hgb 11.2 (L) 12.0 - 16.0 gm/dL [place] Comment: As part of CBC or as an individ ual orderable testing performed at [facility], [address] [place] [address] Hct 32.9 (L) 37.0 - 47.0 % [place] Comment: As part of CBC testing performe d at [facility], [address] [place], [place] [id number] MCV 94 82 - 98 fL [place] Comment: As part of CBC testing performe d at [facility], [address] [place], [place] [id number] MCH 32.0 (H) 27.0 - 31.0 pg [place] Comment: As part of CBC testing performe d at [facility], [address] [place] [address] MCHC 34.0 31.0 - 36.0 gm/dL [place] Comment: As part of CBC testing performe d at [facility], [address] [place] [address] RDW-SD 52.4 (H) 35.1 - 46.3 fL [place] Comment: As part of CBC testing performe d at [facility], [address] [place] [address] RDW-CV 15.6 (H) 12.0 - 15.5 % [place] Comment: As part of CBC testing performe d at [facility], [address] [place] [address] Platelet count 190 140 - 440 K/uL [facility] Comment: As part of CBC or an individual orderable testing performed at [facility], [address] [place] [address] MPV 8.9 4.0 - 10.4 fL [place] Comment: As part of CBC testing performe d at [facility], [address] [place] [address] Specimen Anatomical Collection Method Collection Time Receive d Time (Source) Location / / Volume Laterality Blood 04/17/2022 8:15 AM 8:15 CDT AM CDT Sofy [facility] LAB BLOOD ORDERABLES Performing Organization Address City/State/ZIP Code Phon e Number [place], [place] [phone] [place] [address] (ABNORMAL) Glomerular Filtration Rate (04/17/2022 8:15 AM CDT)Only the most recent of6 resultswithin the time period is included. athologist Signature eGFR 56 (L) >=60 [place] mL/min/1.73 sq. m Comment: The eGFRcr is calculated with the 2020 KD-EPI creatinine equation using creatinine, patient's age, and sex for adults 18 years of age and older. Other factors, especially muscle mass, may affect accuracy and need to be considered. According to the Kidney Disease: Improvi ng Global Outcomes (KDIGO) CKD Work Group 2012 Clinical Practice Guideline, chronic kidney disease (CKD) is defined as the abnormalities of kidney structure or function, present for more than 3 months, with implications for health. CKD should be c lassified by cause, GFR category, and albuminuria category. KDIGO guidelines provide the following GFR categories Stage Description GFR mL/min/1.73 m2 G1* Normal or high >= 90 G2* Mildly decreased 60-89 G3a Mildly to moderately decreased 45-59 G3b Moderately to severely decreased 30- 44 G4 Severely decreased 15-29 G5 Kidney failure <15 *In the absence of evidence of kidney da mage, neither G1 nor G2 fulfill criteria for CKD. Testing performed at [facility], [address] [place] [address] Specimen Anatomical Collection Method Collection Time Receive d Time (Source) Location / / Volume Laterality Blood 04/17/2022 8:15 AM 8:15 CDT AM CDT Sofy INMAN LAB BLOOD ORDERABLES Performing Organization Address City/State/ZIP Code Phon e Number [facility] [place] [address] [place] [address] Fractionated Bilirubin (04/17/2022 8:15 AM CDT)Only the most recent of6 results within the time period is included. athologist Signature Bili Total 0.4 <=1.2 mg/dL [place] Comment: Indocyanine Green (ICG) may cause falsel y elevated bilirubin results. Total and direct bilirubin must not be measured from samples containing indocyanine green. False elevation of total bilirubin can b e seen in patients with IgG concentrations above 28 g/L. Testing performed at [facility], [address] [place] [address] Bili Direct <0.2 <=0.3 mg/dL [place] Comment: Indocyanine Green (ICG) may cause falsel y elevated bilirubin results. Total and direct bilirubin must not be measured from samples containing indocyanine green. Testing performed at [facility], [address] [place] [address] Bili Indirect See Note 0.0 - 0.9 mg/dL [facility] Comment: Unable to calculate Indirect Bilirubin r esult due to some parameters are outside reportable range Testing performed at [facility], [address] [place] [address] Specimen Anatomical Collection Method Collection Time Receive d Time (Source) Location / / Volume Laterality Blood 04/17/2022 8:15 AM 8:15 CDT AM CDT Sofy IN[facility] LAB BLOOD ORDERABLES Performing Organization Address City/State/ZIP Code Phon e Number [place], [place] [phone] [place] [address] (ABNORMAL) Differential (04/17/2022 8:15 AM CDT)Only the most recent of6 results within the time period is included. athologist Signature Neutrophil % 57.2 42.0 - 66.0 [place] % Comment: All components of the Different ial performed at [facility], [address] [place] [address] Lymphocyte % 31.6 24.0 - 44.0 % [place] Comment: As part of the Differential calixto ting performed at [facility], [address] [place] [address] Monocyte % 8.6 (H) 2.0 - 7.0 % [place] Comment: As part of the Differential calixto ting performed at [facility], [address] [place], [place] [id number] Eosinophil % 1.8 1.0 - 4.0 % [place] Comment: As part of the Differential calixto ting performed at [facility], [address] [place] [address] Basophil % 0.5 0.0 - 1.0 % [place] Comment: As part of the Differential calixto ting performed at [facility], [address] [place] [address] IGRE % 0.3 0.0 - 0.4 % [place] Comment: IGRE % count includes Metamyelocytes, My elocytes, and Promyelocytes. As part of the Differential testing perf ormed at [facility], [address] [place] [address] Neutrophil Abs 2.26 1.70 - 7.30 K/uL [facility] Comment: As part of the Differential calixto ting performed at [facility], [address] [place] [address] Lymphocyte Abs 1.25 1.00 - 4.80 K/uL [facility] Comment: As part of the Differential calixto ting performed at [facility], [address] [place] [address] Monocyte Abs 0.34 0.08 - 0.70 K/uL [facility] Comment: As part of the Differential calixto ting performed at [facility], [address] [place] [address] Eosinophil Abs 0.07 0.04 - 0.40 K/uL [facility] Comment: As part of the Differential calixto ting performed at [facility], [address] [place] [address] Basophil Abs 0.02 0.00 - 0.10 K/uL [facility] Comment: As part of the Differential calixto ting performed at [facility], [address] [place] [address] IG Abs 0.01 0.00 - 0.04 K/uL [place] Comment: As part of the Differential calixto ting performed at [facility], [address] [place] [address] Specimen Anatomical Collection Method Collection Time Receive d Time (Source) Location / / Volume Laterality Blood 04/17/2022 8:15 AM 8:15 CDT AM CDT Sofy INMAN LAB BLOOD ORDERABLES Performing Organization Address City/State/ZIP Code Phon e Number [place] MD [facility] [place], [place] [phone] [place] [address] BUN (04/17/2022 8:15 AM CDT)Only the most recent of6 resultswithin the time period is included. athologist Signature BUN 19 6 - 23 mg/dL [place] Comment: Testing performed at [facility], [address] [place] [address] Specimen Anatomical Collection Method Collection Time Receive d Time (Source) Location / / Volume Laterality Blood 04/17/2022 8:15 AM 2 8:15 CDT AM CDT Sofy Ambrose PA LAB BLOOD ORDERABLES Performing Organization Address City/[facility] Code [place], [place] [id number] [place] [address] ALT (04/17/2022 8:15 AM CDT)Only the most recent of6 resultswithin the time period is included. athologist Signature ALT 14 <=33 U/L [place] Comment: Testing performed at [facility], [address] [place] [address] Specimen Anatomical Collection Method Collection Time Receive d Time (Source) Location / / Volume Laterality Blood 04/17/2022 8:15 AM 2 8:15 CDT AM CDT Sofyfarhana Ambrose PA LAB BLOOD ORDERABLES Performing Organization Address City/[facility]/ZIP [address] Aspartate Aminotransferase (04/17/2022 8:15 AM CDT)Only the most recent of6 resultswithin the time period is included. athologist Signature AST 17 <=32 U/L [place] Comment: Testing performed at [facility], [address] [place] [address] Specimen Anatomical Collection Method Collection Time Receive d Time (Source) Location / / Volume Laterality Blood 04/17/2022 8:15 AM 2 8:15 CDT AM CDT Sofy E Arnol PA LAB BLOOD ORDERABLES Performing Organization Address City/[facility] e Number [address] Total Protein (04/17/2022 8:15 AM CDT)Only the most recent of6 resultswithin the time period is included. athologist Signature Total Protein 6.8 6.4 - 8.3 [place] g/dL Comment: Testing performed at [facility], [address] [place] [address] Specimen Anatomical Collection Method Collection Time Receive d Time (Source) Location / / Volume Laterality Blood 04/17/2022 8:15 AM 2 8:15 CDT AM CDT Sofy E Arnol PA LAB BLOOD ORDERABLES Performing Organization Address [facility]/[address] Phosphorus Level (04/17/2022 8:15 AM CDT)Only the most recent of4 resultswithin the time period is included. athologist Signature Phosphorus 3.4 2.5 - 4.5 [place] mg/dL Comment: Testing performed at [facility], [address] [place] [address] Specimen Anatomical Collection Method Collection Time Receive d Time (Source) Location / / Volume Laterality Blood 04/17/2022 8:15 AM 2 8:15 CDT AM CDT Sofy E Arnol PA LAB BLOOD ORDERABLES Performing Organization Address City/[facility] Phon e Number [address] Alkaline Phosphatase (04/17/2022 8:15 AM CDT)Only the most recent of6 results within the time period is included. athologist Signature Alk Phos 103 35 - 104 U/L [place] Comment: Testing performed at [facility], [address] [place] [address] Specimen Anatomical Collection Method Collection Time Receive d Time (Source) Location / / Volume Laterality Blood 04/17/2022 8:15 AM 8:15 CDT AM CDT Sofy INMAN LAB BLOOD ORDERABLES Performing Organization Address City/[facility]/ZIP Code Phon poncho Castaneda [place], [place] [phone] [place] [address] Magnesium Level (04/17/2022 8:15 AM CDT)Only the most recent of5 resultswithin the time period is included. athologist Signature Magnesium 1.9 1.6 - 2.6 [place] mg/dL Comment: Testing performed at [facility], [address] [place] [address] Specimen Anatomical Collection Method Collection Time Receive d Time (Source) Location / / Volume Laterality Blood 04/17/2022 8:15 AM 8:15 CDT AM CDT Sofy INMAN LAB BLOOD ORDERABLES Performing Organization Address City/State/ZIP Code Phon e Number [place], [place] [phone] [place] [address] Glucose Level (04/17/2022 8:15 AM CDT)Only the most recent of6 resultswithin the time period is included. athologist Signature Glucose Level 98 70 - 99 [place] mg/dL Comment: Effective 01/12/16, the glucose reference intervals have been updated based on [place] [employer] guidelines (Standards of Medical Care in Diabetes 2016. Diabetes Care 2016; 39: S13-S22). Fasting blood glucose: Normal: 70-99 mg/dL Impaired fasting glucose (increased risk for diabetes or pre-diabetes): 100- 125 mg/dL Diabetes mellitus: >/=126 mg/dL Random blood glucose: Normal: 70-199 mg/dL Note: Random glucose >100 mg/dL is assoc iated with increased risk for diabetes Testing performed at [facility], [address] [place] [address] Specimen Anatomical Collection Method Collection Time Receive d Time (Source) Location / / Volume Laterality Blood 04/17/2022 8:15 AM 8:15 CDT AM CDT Sofy Ambrose PA LAB BLOOD ORDERABLES Performing Organization Address City/[facility]/[place], [place] [phone] [place] [address] Calcium Level (04/17/2022 8:15 AM CDT)Only the most recent of6 resultswithin the time period is included. athologist Signature Calcium Lvl 9.7 8.4 - 10.2 [place] mg/dL Comment: Testing performed at [facility], [address] [place] [address] Specimen Anatomical Collection Method Collection Time Receive d Time (Source) Location / / Volume Laterality Blood 04/17/2022 8:15 AM 8:15 CDT AM CDT Sofy Ambrose PA LAB BLOOD ORDERABLES Performing Organization Address City/[facility]/[place], [place] [phone] [place] [address] Albumin Level (04/17/2022 8:15 AM CDT)Only the most recent of6 resultswithin the time period is included. athologist Signature Albumin Lvl 4.0 3.5 - 5.2 [place] gm/dL Comment: Testing performed at [facility], [address] [place] [address] Specimen Anatomical Collection Method Collection Time Receive d Time (Source) Location / / Volume Laterality Blood 04/17/2022 8:15 AM 8:15 CDT AM CDT Sofy Ambrose PA LAB BLOOD ORDERABLES Performing Organization Address City/[facility]/[address] Electrolyte Panel (04/17/2022 8:15 AM CDT)Only the most recent of6 resultswithin the time period is included. athologist Signature Sodium Lvl 143 136 - 145 [place] mEq/L Comment: Testing performed at [facility], [address] [place] [address] Potassium Lvl 4.0 3.5 - 5.1 mEq/L [facility] Y Comment: Testing performed at [facility], [address] [place] [address] Chloride 107 98 - 107 mEq/L [place] Comment: Testing performed at [facility], [address] [place] [address] CO2 28 22 - 29 mEq/L [place] Comment: Testing performed at [facility], [address] [place] [address] Anion Gap 8 4 - 14 mEq/L [place] Comment: Testing performed at [facility], [address] [place] [address] Specimen Anatomical Collection Method Collection Time Receive d Time (Source) Location / / Volume Laterality Blood 04/17/2022 8:15 AM 8:15 CDT AM CDT Sofy INMAN LAB BLOOD ORDERABLES Performing Organization Address City/State/ZIP Code Phon e Number [address] TSH (04/10/2022 10:38 AM CDT)Only the most recent of4 resultswithin the time period is included. athologist [facility] TSH 1.96 0.27 - 4.20 [facility] mcunit/mL DIAGNOSTIC CENTER Specimen Anatomical Collection Method Collection Time Receive d Time (Source) Location / / Volume Laterality Blood 04/10/2022 10:38 04/10/2022 AM CDT 11:20 AM CDT Sudeep Terrell MD LAB BLOOD ORDERABLES Performing Organization Address City/State/ZIP Code Phon e Number [facility] DIAGNOSTIC Unless otherwise noted, [place] [phone] all lab tests performed by: Division of Pathology and Laboratory Medicine [address] [place] [address] Free T4 (04/10/2022 10:38 AM CDT)Only the most recent of2 resultswithin the time period is included. athologist Signature T4 Free 1.04 0.93 - 1.70 [place] [facility] ng/dL DIAGNOSTIC CENTER Specimen Anatomical Collection Method Collection Time Receive d Time (Source) Location / / Volume Laterality Blood 04/10/2022 10:38 04/10/2022 AM CDT 11:20 AM CDT Sudeep Terrell MD LAB BLOOD ORDERABLES Performing Organization Address City/State/ZIP Code Phon e Number [facility] Unless otherwise noted, [place], [place] [address] CENTER all lab tests performed by: Division of Pathology and Laboratory Medicine [facility] CT Chest without Contrast (04/07/2022 9:08 AM CDT) Anatomical Region Laterality Modality Chest Computed Tomography Specimen (Source) Anatomical Collection Method Collection Time Re ceived Time Location / / Volume Laterality 04/07/2022 1:22 PM CDT Impressions 04/07/2022 1:29 PM CDT Decrease in size of the left upper lobe primary tumor. Stable left upper lobe 0.6 cm solid nodule suspicious for intrapulmonary metastasis. No wili or distant metastases. Narrative 04/07/2022 1:29 PM CDT FULL RESULT: Examination: CT CHEST WO CONTRAST, 04/07 9:08 AM Clinical History: Adenocarcinoma, NOS of upper lobe, lung <Left> Indication: Cancer restaging (treatment completion), Lung cancer care (staging, restaging, surveillance, etc.), restaging for NSCLC s/p 2 cycles chemo/IO Comparison: 02/07/2022 Technique: CT of the chest was performed without intravenous contrast. Findings: The left upper lobe primary tumor has de creased in size measuring 1.8 cm, previously 2.1 cm. The left upper lobe nodule abutting the major fissure on image 45 of series 7 is stable measuring 0.6 cm susp icious for intrapulmonary metastasis. No new lung nodules. Linear opacity in the right upper lobe is stable on image 15 of series 7 consistent with subsegmental atelectasis. No mediastinal or hilar adenopathy is id entified. Coronary artery calcification is present. No pleural effusions. Hepatic cysts are unchanged. The adrenals are unremarkable. Procedure Note Thu Daugherty MD - 04/07/2022Format ting of this note might be different from the original. FULL RESULT: Examination: CT CHEST WO CONTRAST, 04/07 9:08 AM Clinical History: Adenocarcinoma, NOS of upper lobe, lung <Left> Indication: Cancer restaging (treatment completion), Lung cancer care (staging, restaging, surveillance, etc.), restaging for NSCLC s/p 2 cycles chemo/IO Comparison: 02/07/2022 Technique: CT of the chest was performed without intravenous contrast. Findings: The left upper lobe primary tumor has de creased in size measuring 1.8 cm, previously 2.1 cm. The left upper lobe nodule abutting the major fissure on image 45 of series 7 is stable measuring 0.6 cm suspicious for intrapulmonary metastasis. No new lung n odules. Linear opacity in the right upper lobe is stable on image 15 of series 7 consistent with subsegmental atelectasis. No mediastinal or hilar adenopathy is id entified. Coronary artery calcification is present. No pleural effusions. Hepatic cysts are unchanged. The adrenals are unremarkable. IMPRESSION: Decrease in size of the left upper lobe primary tumor. Stable left upper lobe 0.6 cm solid nodule suspicious for intrapulmonary metastasis. No wili or distant metastases. Yu Vitale RN AGPCNP IMG CT ORDERABLES 6 minute walk test (03/20/2022 10:53 AM CDT) Specimen (Source) Anatomical Location Collection Method / Collectio n Time Received Time / Laterality Volume Narrative This result has an attachment that is no t available. Tammy Giraldo [employer] PFT ORDERABLES Performing Organization Address City/State/ZIP Code Phon e Number [facility] COVID-19 (SARS-CoV-2) PCR-Asymptomatic (02/11/2022 3:11 PM CDT)Only the most recent of2 resultswithin the time period is included. [facility] Method Time Signature COVID19 (SARS Not Detected Not Detected [place] CoV-2) [facility] Comment: This test is a qualitative reverse-trans criptase polymerase chain reaction (RT- PCR) developed for the [employer] system and intended for qualitative detection of SARS CoV-2 RNA in nasopharyngeal a nd oropharyngeal swab specimens collecte d from any individuals, including those suspected o f COVID-19 by their healthcare provider, and those without symptoms or other reasons to suspect COVID-19. A fact sheet for patients provided by the human services professional ( [employer], [employer]) can be rev iewed at: https://www.[employer].gov/media/074055/downloa d. A fact sheet for Health Care providers is provided by the human services professional ([employer]) and can be reviewed at: https://www.[employer].gov/media/276706/download Results must be interpreted within the c [...] were verified by the Microbiology Laboratory at [facility] [place], CLIA Accreditation #: [id number] and CAP Accreditation #: [id number]. COVID19 SARS Source SHUTTLE [employer]IVER Swab IA MD [facility] COVID19 SARS Indication Pre-Out of OR Procedure [facility] Specimen (Source) Anatomical Collection Method Collection Time Re ceived Time Location / / Volume Laterality Nasopharyngeal Swab 02/11/2022 3:11 02/11 PM CDT 5:23 PM CDT Sudeep Vailati Negrao MD MICROBIOLOGY - GENERAL ORDER FLOR Performing Organization Address City/State/ZIP Code Phon e Number [facility] CANCER Unless otherwise noted, [place] [address] CENTER all lab tests performed by: Division of Pathology and Laboratory Medicine [address] PETCT Subsequent Treatment Strategy (02/07/2022 3:05 PM [...] Organization Address City/State/ZIP Code Phon e Number [place] Hepatitis C Virus Antibody (02/03/2022 1:10 PM CDT)Only the most recent of2 resultswithin the time period is included. Patholo gist Method Time Signature HCVAb. Non Reactive Non Reactive [facility] Comment: Antibody detection in the [...] Organization Address City/State/ZIP Code Phon e Number [facility] CANCER Unless otherwise noted, [place] [address] [place] all lab tests performed by: Division of Pathology and Laboratory Medicine [facility] (ABNORMAL) Urinalysis with Microscopic (02/03/2022 1:10 PM CDT) P athologist Signature UA WBC 8 (H) 0 - 2 /HPF [facility] UA RBC 1 0 - 2 /HPF [facility] UA Mucous NOT SEEN Not [facility] Seen-Trace CANCER CENTER /HPF UA Bacteria NOT SEEN NOT SEEN [facility] /[email or web address]] UA Squam Epi OCC None-Occas [facility] ional /[facility] CANCER [place] Specimen Anatomical Collection Method Collection Time Receive d Time (Source) Location / / Volume Laterality Urine 02/03/2022 1:10 PM 2 2:02 CDT PM CDT Narrative [facility] - 2 2:16 PM CDT Some reporting parameters within the Urinalysis test have changed due to the implementation of new in strumentation in the [facility], allowi ng greater sensitivity of measurement. Urinalysis results reported by the [facility] Centers using existing instrumentation, as well as Urinalysis t esting performed manually or by backup methodology at the [facility] will remain relatively unchanged. New reporting parameters and units will now be reported for all campuses. Sudeep Terrell MD URINE ORDERABLES Performing Organization Address City/[facility] Phon e Number [facility] Unless otherwise noted, [address] all lab tests performed by: Division of Pathology and Laboratory Medicine [address] [place], [place] [address] (ABNORMAL) aPTT (02/03/2022 1:10 PM CDT)Only the most recent of2 resultswithin the time period is included. athologist Signature aPTT 36.6 (H) 22.8 - 34.2 [facility](s) CANCER [place] Specimen Anatomical Collection Method Collection Time Receive d Time (Source) Location / / Volume Laterality Blood 02/03/2022 1:10 PM 2 1:22 CDT PM CDT Narrative [facility] - 2 2:00 PM CDT This lab cannot be scheduled at the foll owing locations due to collection/proccessing restrictions: [facility] and [facility]. Sudeep Terrell MD LAB BLOOD ORDERABLES Performing Organization Address City/[facility] Code Phon e Number [facility] Unless otherwise noted, [address] all lab tests performed by: Division of Pathology and Laboratory Medicine [address] [place] [address] Hepatitis B Surface Ag (02/03/2022 1:10 PM CDT)Only the most recent of2 results within the time period is included. [facility] Method Time Signature HBsAg. Non Reactive Non Reactive [facility] Specimen Anatomical Collection Method Collection Time Receive d Time (Source) Location / / Volume Laterality Blood 02/03/2022 1:10 PM 2 1:44 CDT PM CDT Sudeep Terrell MD LAB BLOOD ORDERABLES Performing Organization Address [facility] Phon e Number [facility] Unless otherwise noted, [address] all lab tests performed by: Division of Pathology and Laboratory Medicine [address] [place] [address] (ABNORMAL) Urinalysis w/Microscopic if Indicated (02/03/2022 1:10 PM CDT) Patholo gist Method Time Signature UA Color Straw Straw-Yel [facility] UA Appear Hazy (A) Clear [facility] UA Glucose NEG NEG mg/dL [facility] UA Bili NEG NEG [facility] UA Ketones NEG NEG mg/dL [facility] UA Spec Grav 1.015 1.003 - IA MD 1.035 [facility] UA Blood NEG NEG [facility] UA pH 6.0 5.0 - 9.0 [facility] UA Protein NEG NEG mg/dL [facility] UA Urobilinogen NEG NEG [facility] UA Nitrite NEG NEG [facility] UA Leuk Est Moderate (A) NEG [facility] Specimen Anatomical Collection Method Collection Time Receive d Time (Source) Location / / Volume Laterality Urine 02/03/2022 1:10 PM 2 2:02 CDT PM CDT Sudeep Terrell MD URINE ORDERABLES Performing Organization Address City/[facility] Code Phon e Number [facility] Unless otherwise noted, [address] all lab tests performed by: Division of Pathology and Laboratory Medicine [facility] (ABNORMAL) Prothrombin Time (02/03/2022 1:10 PM CDT)Only the most recent of2 resultswithin the time period is included. P athologist Signature PT 15.7 (H) 11.9 - 14.1 [facility](s) [facility] INR 1.26 (H) 0.89 - 1.10 [facility] Specimen Anatomical Collection Method Collection Time Receive d Time (Source) Location / / Volume Laterality Blood 02/03/2022 1:10 PM 2 1:22 CDT PM CDT Narrative [facility] - 2 2:00 PM CDT This lab cannot be scheduled at the [facility] locations due to collection/proccessing restrictions: [facility] and [facility]. Sudeep Terrell MD LAB BLOOD ORDERABLES Performing Organization Address City/[facility]/ZIP Code Phon e Number [facility] Unless otherwise noted, [address] all lab tests performed by: Division of Pathology and Laboratory Medicine [address] Lipase Level (02/03/2022 1:10 PM CDT) P athologist Signature Lipase Lvl 56 13 - 60 U/L [facility] Specimen Anatomical Collection Method Collection Time Receive d Time (Source) Location / / Volume Laterality Blood 02/03/2022 1:10 PM 2 1:45 CDT PM CDT Sudeep Terrell MD LAB BLOOD ORDERABLES Performing Organization Address City/[facility] Phon e Number [facility] CANCER Unless otherwise noted, [address] all lab tests performed by: Division of Pathology and Laboratory Medicine [address] LDH (02/03/2022 1:10 PM CDT) P athologist Signature LDH 190 135 - 214 [facility] U/L [facility] Comment: Results greater than 1651 U/L [...] MD LAB BLOOD ORDERABLES Performing Organization Address City/[facility] Phon e Number [facility] Unless otherwise noted, [address] all lab tests performed by: Division of Pathology and Laboratory Medicine [address] GGT (02/03/2022 1:10 PM CDT) P athologist Signature GGT 19 5 - 36 U/L [facility] Specimen Anatomical Collection Method Collection Time Receive d Time (Source) Location / / Volume Laterality Blood 02/03/2022 1:10 PM 2 1:45 CDT PM CDT Sudeep Terrell MD LAB BLOOD ORDERABLES Performing Organization Address City/[facility] Phon e Number [facility] Unless otherwise noted, [address] all lab tests performed by: Division of Pathology and Laboratory Medicine [address] [facility] Cortisol, Total (02/03/2022 1:10 PM CDT) athologist Signature Cortisol 8.11 4.80 - [facility] 19.50 CANCER CENTER mcg/dL Comment: Cortisol reference [...] Organization Address City/State/ZIP Code Phon e Number [facility] CANCER Unless otherwise noted, [address] all lab tests performed by: Division of Pathology and Laboratory Medicine [address] (ABNORMAL) Amylase Level (02/03/2022 1:10 PM CDT) athologist Signature Amylase Lvl 102 (H) 28 - 100 [facility] U/L [facility] Specimen Anatomical Collection Method Collection Time Receive d Time (Source) Location / / Volume Laterality Blood 02/03/2022 1:10 PM 2 1:45 CDT PM CDT Sudeep Terrell MD LAB BLOOD ORDERABLES Performing Organization Address City/State/[facility] Phon e Number [facility] CANCER Unless otherwise noted, [address] all lab tests performed by: Division of Pathology and Laboratory Medicine [facility], 12-Lead (Scheduled) (02/03/2022)Only the most recent of2 resultswithin the time period is included. Specimen (Source) Anatomical Location Collection Method / Collectio n Time Received Time / Laterality Volume Narrative This result has an attachment that is no t available. Sudeep Terrell MD ECG ORDERABLES Performing Organization Address City/State/ZIP Code Phon e Number [facility] Tissue Slides Material Request (01/29/2022 12:43 PM CDT) Specimen Anatomical Collection Method Collection Time Receive d Time (Source) Location / / Volume Laterality Tissue 01/29/2022 12:43 01/29/2022 PM CDT 12:43 PM CDT Sofy INMAN MDA IP AP [place] Performing Organization Address City/[facility]/ZIP Code Ph[place] [address] [address] FISH ROS1 Material Request (01/22/2022 6:11 PM CDT) Specimen Anatomical Collection Method Collection Time Receive d Time (Source) Location / / Volume Laterality Tissue 01/22/2022 6:11 PM 6:11 CDT PM CDT Sudeep Terrell MD MDA IP AP [place] Performing Organization Address [facility]/ZIP Code Ph[place] [address] [address] FISH ALK translocation Material Request (01/22/2022 6:11 PM CDT) Specimen Anatomical Collection Method Collection Time Receive d Time (Source) Location / / Volume Laterality Tissue 01/22/2022 6:11 PM 6:11 CDT PM CDT Sudeep Terrell MD MDA IP AP [place] Performing Organization Address [facility]/ZIP Code Phon e Number [facility] [place] [address] Venogram Brain (01/04/2022 2:03 PM CDT) [...] 12:21 PM CDT) athologist Signature Molecular Yes [facility] (Received) Specimen Anatomical Collection Method Collection Time Receive d Time (Source) Location / / Volume Laterality Blood 12/27/2021 12:21 12/27/2021 3:03 PM CDT PM CDT Sofy SOUSA MD BLOOD COLLECTIONS Performing Organization Address City/[facility] Phon e Number [facility] CANCER Unless otherwise noted, [address] all lab tests performed by: Division of Pathology and Laboratory Medicine [address] [place] [address] LB ROS1 Fusion Analysis Collection, Blood (12/27/2021 12:21 PM CDT) athologist Signature Molecular Yes [facility] CANCER [place] (Received) Specimen Anatomical Collection Method Collection Time Receive d Time (Source) Location / / Volume Laterality Blood 12/27/2021 12:21 12/27/2021 3:03 PM CDT PM CDT Sofy SOUSA MD BLOOD COLLECTIONS Performing Organization Address City/[facility] Phon e Number [facility] CANCER Unless otherwise noted, [address] all lab tests performed by: Division of Pathology and Laboratory Medicine [address] [place] [address] LB RET Fusion Analysis Collection, Blood (12/27/2021 12:21 PM CDT) P athologist Signature Molecular Yes [facility] (Received) Specimen Anatomical Collection Method Collection Time Receive d Time (Source) Location / / Volume Laterality Blood 12/27/2021 12:21 12/27/2021 3:03 PM CDT PM CDT Sofy INMAN MDA HP MD BLOOD COLLECTIONS Performing Organization Address City/[facility]/ZIP Code Phon e Number [facility] CANCER Unless otherwise noted, [address] all lab tests performed by: Division of Pathology and Laboratory Medicine [facility] LB MET Mutation Analysis Collection, Blood (12/27/2021 12:21 PM CDT) athologist Signature Molecular Yes [facility] (Received) Specimen Anatomical Collection Method Collection Time Receive d Time (Source) Location / / Volume Laterality Blood 12/27/2021 12:21 12/27/2021 3:03 PM CDT PM CDT Sofy INMAN MDA HP MD BLOOD COLLECTIONS Performing Organization Address City/[facility]/ZIP Code Phon e Number [facility] CANCER Unless otherwise noted, [address] all lab tests performed by: Division of Pathology and Laboratory Medicine [facility] LB ERBB2 Full Gene Mutation Analysis Collection, Blood (12/27/2021 12:21 PM CDT) athologist Signature Molecular Yes [facility] (Received) Specimen Anatomical Collection Method Collection Time Receive d Time (Source) Location / / Volume Laterality Blood 12/27/2021 12:21 12/27/2021 3:03 PM CDT PM CDT Sofy INMAN MDA HP MD BLOOD COLLECTIONS Performing Organization Address City/[facility]/ZIP Code Phon e Number [facility] CANCER Unless otherwise noted, [address] all lab tests performed by: Division of Pathology and Laboratory Medicine [facility] LB BRAF Mutation Analysis Collection, Blood (12/27/2021 12:21 PM CDT) athologist Signature Molecular Yes [facility] (Received) Specimen Anatomical Collection Method Collection Time Receive d Time (Source) Location / / Volume Laterality Blood 12/27/2021 12:21 12/27/2021 3:03 PM CDT PM CDT Sofy INMAN MDA HP MD BLOOD COLLECTIONS Performing Organization Address City/[facility]/ZIP Code Phon e Number [facility] CANCER Unless otherwise noted, [address] all lab tests performed by: Division of Pathology and Laboratory Medicine Nicole Bautista MD NGS Blood Control (12/27/2021 12:21 PM CDT) P athologist Signature Molecular Yes [facility] (Received) Specimen Anatomical Collection Method Collection Time Receive d Time (Source) Location / / Volume Laterality Blood 12/27/2021 12:21 12/27/2021 3:08 PM CDT PM CDT Sofy INMAN MDA IP HP MOLECULAR DIAG IF ORDERABLES Performing Organization Address [facility] Phon e Number [facility] Unless otherwise noted, [address] all lab tests performed by: Division of Pathology and Laboratory Medicine Nicole Bautista MD EML4/ALK Fusion Analysis Material Request (12/27/2021 11:44 AM CDT) [facility] Method Time Signature Archived Previously 12/30/2021 [facility] Material diagnosed 4:49 PM CDT tissues from [id number] were selected for molecular analysis. Results will be reported separately. Specimen Anatomical Collection Method Collection Time Receive d Time (Source) Location / / Volume Laterality Tissue 12/27/2021 11:44 12/27/2021 AM CDT 11:44 AM CDT Sofy INMAN MDA IP AP BIOMARKERS Performing Organization Address City/[facility]/ZIP Code Ph[place] [address] Nicole Bautista MD ROS1 Fusion Analysis Material Request (12/27/2021 11:44 AM CDT) [facility] Method Time Signature Archived Previously 12/30/2021 [facility] Material diagnosed 4:49 PM CDT tissues from [id number] were selected for molecular analysis. Results will be reported separately. Specimen Anatomical Collection Method Collection Time Receive d Time (Source) Location / / Volume Laterality Tissue 12/27/2021 11:44 12/27/2021 AM CDT 11:44 AM CDT Sofy INMAN MDA IP AP BIOMARKERS Performing Organization Address City/[facility]/ZIP Code [place] [address] [address] MD RET Fusion Analysis Material Request (12/27/2021 11:44 AM CDT) [facility] gist Method Time Signature Archived Previously 12/30/2021 [facility] Material diagnosed 4:49 PM CDT tissues from [id number] were selected for molecular analysis. Results will be reported separately. Specimen Anatomical Collection Method Collection Time Receive d Time (Source) Location / / Volume Laterality Tissue 12/27/2021 11:44 12/27/2021 AM CDT 11:44 AM CDT Sofy Ambrose PA MDA IP AP BIOMARKERS Performing Organization Address [facility] Code Phon [place] [address] [address] MD NTRK3 Fusion Analysis Material Request (12/27/2021 11:44 AM CDT) [facility] gist Method Time Signature Archived Previously 12/30/2021 [facility] Material diagnosed 4:49 PM CDT tissues from [id number] were selected for molecular analysis. Results will be reported separately. Specimen Anatomical Collection Method Collection Time Receive d Time (Source) Location / / Volume Laterality Tissue 12/27/2021 11:44 12/27/2021 AM CDT 11:44 AM CDT Sofy INMAN MDA IP AP BIOMARKERS Performing Organization Address City/[facility]/ZIP Code [place] [address] [address] MD NTRK2 Fusion Analysis Material Request (12/27/2021 11:44 AM CDT) [facility] gist Method Time Signature Archived Previously 12/30/2021 [facility] Material diagnosed 4:49 PM CDT tissues from [id number] were selected for molecular analysis. Results will be reported separately. Specimen Anatomical Collection Method Collection Time Receive d Time (Source) Location / / Volume Laterality Tissue 12/27/2021 11:44 12/27/2021 AM CDT 11:44 AM CDT Sofy E Arnol PA MDA IP AP BIOMARKERS Performing Organization Address City/State/ZIP Code [place] [address] [address] MD NTRK1 Fusion Analysis Material Request (12/27/2021 11:44 AM CDT) [facility] gist Method Time Signature Archived Previously 12/30/2021 [facility] Material diagnosed 4:49 PM CDT tissues from [id number] were selected for molecular analysis. Results will be reported separately. Specimen Anatomical Collection Method Collection Time Receive d Time (Source) Location / / Volume Laterality Tissue 12/27/2021 11:44 12/27/2021 AM CDT 11:44 AM CDT Sofy E Arnol PA MDA IP AP BIOMARKERS Performing Organization Address City/[facility]/ZIP Code [place] [address] Nicole Bautista MD KRAS Mutation Material Request (12/27/2021 11:44 AM CDT) [facility] gist Method Time Signature Archived Previously 12/30/2021 [facility] Material diagnosed 4:49 PM CDT tissues from [id number] were selected for molecular analysis. Results will be reported separately. Specimen Anatomical Collection Method Collection Time Receive d Time (Source) Location / / Volume Laterality Tissue 12/27/2021 11:44 12/27/2021 AM CDT 11:44 AM CDT Sofy E Arnol PA MDA IP AP BIOMARKERS Performing Organization Address City/[facility]/ZIP Code [place] [address] Nicole Bautista MD EGFR Mutation Material Request (12/27/2021 11:44 AM CDT) [facility] gist Method Time Signature Archived Previously 12/30/2021 [facility] Material diagnosed 4:49 PM CDT tissues from [id number] were selected for molecular analysis. Results will be reported separately. Specimen Anatomical Collection Method Collection Time Receive d Time (Source) Location / / Volume Laterality Tissue 12/27/2021 11:44 12/27/2021 AM CDT 11:44 AM CDT Sofy E Arnol PA MDA IP AP BIOMARKERS Performing Organization Address City/[facility]/ZIP Code [place] [address] [address] MD BRAF V600 E Mutation Material Request (12/27/2021 11:44 AM CDT) Patholo gist Method Time Signature Archived Previously 12/30/2021 [facility] Material diagnosed 4:49 PM CDT tissues from [id number] were selected for molecular analysis. Results will be reported separately. Specimen Anatomical Collection Method Collection Time Receive d Time (Source) Location / / Volume Laterality Tissue 12/27/2021 11:44 12/27/2021 AM CDT 11:44 AM CDT Sofy INMAN MDA IP AP BIOMARKERS Performing Organization Address [facility]/ZIP Code [place] [address] [address] IHC PD-L1 Material Request (12/27/2021 11:44 AM CDT) Specimen Anatomical Collection Method Collection Time Receive d Time (Source) Location / / Volume Laterality Tissue 12/27/2021 11:44 12/27/2021 AM CDT 11:44 AM CDT Sofy INMAN MDA IP AP BIOMARKERS Performing Organization Address [facility]/ZIP Code [place] [address] [address] Cytology Image-Guided FNA Interpretation (12/21/2021 1:05 PM CDT) Component Value Ref Test Analysis Performed Pathologis t Range Method Time At Signature Gross A: 12/22/2021 [facility] Description Specimens procured: 4:47 PM 3 Diff Quik; 3 Pap Stain Slides CDT 5 ml, slightly cloudy bloody fluid in RPMI 1 Cell Block Date/Time Placed in Formalin: 12/21/21 @ 3:40 PM Size: 7.3 mm Specimen adequacy was performed by LANNY Madrigal(ASCP). Immediate Adequate 12/22/2021 [facility] Assessment cellularity 4:47 PM CDT Major NFMC/benign 12/22/2021 [facility] Elect ronically Classification 4:47 PM faith d by CDT Keaton hernadez MD on 2021 at 4:47 PM Diagnosis A. Lymph node(s), right, sup erior interlobar, 11Rs, fine needle aspiration: 12/22/2021 [facility] Electronically 4:47 PM signed by No metastatic carcinoma identified CDT Keaton Cuevas, Polymorphous lymphoid cell population consistent with lymph node sampling on 12/22/2021 at 4:47 PM Comment The cell block 12/22/2021 [facility] preparation was 4:47 PM contributory CDT toward making the above diagnosis. Retained/Biomark SR: 6 S, 2 CB 12/22/2021 [facility] L ABS er Testing 4:47 PM CDT Informational Some tests 12/22/2021 [facility] Points reported here may 4:47 PM have been CDT developed and performance characteristics determined by [facility] Pathology and Laboratory Medicine. These tests have [...] Organization Address City/State/ZIP Code Phon e Number [facility] AP [facility]S [place], [place] [id number] MD COVID-19 (UTE-CoV-2) PCR Asymptomatic (12/20/2021 1:44 PM CDT) Component Value Ref Range Test Analysis Performed Pathologis t Method Time At Signature COVID19 SARS Pre-Out of OR [place] Indication Procedure [facility] COVID19 SARS Not Detected Not [place] Result Detected [facility] COVID19 SARS SARS-CoV-2 NOT Detected. [place] [facility] Reference Range: Not Detected [facility] Methodology: The Haney Real Time SARS-CoV-2 assay is a qualitative real-time reverse aircraft design engineer polymerase chain reaction (supply chain coordinator-PCR) test to detect RNA from SARS-CoV-2 in nasal, nasopharyngeal and oropharyngeal swabs from patients with signs and symptoms of infection who ar e suspected of COVID-19 by their health care provider. The Haney RealTime SARS-CoV-2 performed on the [employer]Players.com000 System is a dual target assay with [...] sole basis for patient management decisions. The [place] RealTime SARS-CoV -2 assay is for in vitro diagnostic use under FDA Emergency Use Authorization only. Testing is limited to laboratories certified under the Clinical Laboratory Improvement Jelly ndments of 1988 (CLIA), 42U.S.C. 263a, to perform high complexity tests. The T est was performed by the CLIA-certified, high- complexity Molecular Diagnostics Laboratory ([facility]) at [facility] under the Food and Drug Administration (FDA) s Emergency Use Authorization. Factsheet for patients: https://www.[employer].org/AbbottFac tSheetPatients Factsheet for healthcare pro viders: https://www.[employer]elsp[employer]nergynderson.org/AbbottFactSheetHCP Test performed by: [facility] [address] [place] [address] Specimen (Source) Anatomical Collection Method Collection Time Re ceived Time Location / / Volume Laterality Nasopharyngeal Swab 12/20/2021 1:44 12/20 PM CDT 2:55 PM CDT Tammy Rodriguezvictorina PARTS WASHER MICROBIOLOGY - GENERAL ORDER FLOR Performing Organization Address City/State/ZIP Code Phon e Number [facility] Unless otherwise noted, [place] [address] [place] all lab tests performed by: Division of Pathology and Laboratory Medicine [address] [place] [address] X-ray Chest 2 Views (12/09/2021 11:37 AM [...] Zhang Abernathy MD IMG DIAGNOSTIC IMAGING ORDER FLOR IR CHEST XRAY 1 VIEW (12/02/2021 2:53 PM CDT)Only the most recent of2 results within the time period is included. Anatomical Region Laterality Modality Chest Digital Radiography Specimen (Source) Anatomical Location Collection Method / Collectio n Time Received Time / Laterality Volume Narrative 12/02/2021 3:07 PM CDT Date of Procedure: 12/02/21 Attending Physician: Jason De Jesus MD New Home Sales Consultant: None Pre Procedure Diagnosis: Multiple nodu les [...] I certify my physical presence at the me of the procedure. I personally reviewed the image(s) and the TORSTEN's inte rpretation and agree with the written report. Jennifer INMAN IMTerry IR ORDERABLES IR CT GUIDED BIOPSY LUNG/MEDIASTINAL (12/02/2021 11:40 AM CDT) Anatomical Region Laterality Modality Chest Computed Tomography Specimen (Source) Anatomical Location Collection Method / Collectio n Time Received Time / Laterality Volume Narrative 12/02/2021 3:07 PM CDT Date of Procedure: 12/02/21 Attending Physician: Jason De Jesus MD New Home Sales Consultant: None Pre Procedure Diagnosis: Multiple nodu les [...] with the written report. Zhang Abernathy MD G IR ORDERABLES Pathology Biopsy Interpretation (12/02/2021 11:15 AM CDT) Component Value Ref Test Analysis Performed Pathologis t Range Method Time At Signature Addendum 1 PD-L1 (Clone 22C3, D[employer]) Tumoral Proportion Score (TPS): 70% 12/29/2021 [facility] Addendum Assay Information: This assa y is manufactured by [employer] and uses a monoclonal anti-PD-L1, clone 22C3. It is performed on formalin-fixed paraffin- embedded tissue using an [employer] autostainer a 4: 51 PM electronically nd polymer based detection k it, as specified by the human services professional. It is approved for use as a visual coordinator diagnostic assay for specific therapies on certain tumor types. Interpretation guidelines vary. Fo CDT signed by kaleb tumoral percentage score ( TPS), the percentage of tumoral membranous labeling of any intensity is assessed. Please refer to the intended therapy package insert for appropriate use of results. Performa Rick h[place] characteristics on other tissue types such decalcified specimens and on non-approved tumor types and therapies cannot be guaranteed. MD Dany on 12/30/19 at 4:51 PM Submitted Multiple nodules of lung [R91.8] 022 [facility] Clinical Lung mass [R91.8] 4:51 PM History CDT Diagnosis Lung, left upper lobe, biopsy: [facility] Electronically 4:51 PM signed by Alfred ADENOCARCINOMA OF LUNG ORIGIN. CDT MD Gabriela on See comment. 022 at 9:16 AM Comment Immunohistochemical 12/29/2021 [facility] BS stains show positive 4:51 PM staining in tumor CDT cells with keratin and TTF-1, while negative for VENICE-3, PAX-8, and p40. Gross A: 12/29/2021 [facility] Description Lung, left upper lobe, left lung: Three cores of bhatt-brown soft tissue aggregating to 2.2 x 1.0 x 0.1 cm, entirely submitted in A1. MF 4:51 PM CDT Biomarker A. 12/29/2021 [facility] Block(s) 4:51 PM CDT Disclaimer "Some tests reported 12/29/2021 [facility] here may have been 4:51 PM developed and CDT performance characteristics determined by [facility] Pathology and Laboratory Medicine. These tests have [...] Organization Address City/State/ZIP Code Phon e Number [facility] [place] [address] [address] (ABNORMAL) SPIROMETRY W/DILATORS, DLCO AND BODY PLETHSMOGRAPHIC [...] DLCO_SB 12.689 3.035 - 12/01/2021 [place] ml/(min*mmHg) 23. 2:26 PM CDT ml/(min*mm Hg) DLCOc_SB 12.651 3.035 - 12/01/2021 [place] ml/(min*mmHg) 23. 2:26 PM CDT ml/(min*mm Hg) FVC (% [...] Abernathy MD PFT ORDERABLES Performing Organization Address City/State/ZIP Code Phon e Number [place] Hepatitis B Total Ig Core Ab (SCREENING) (anti-HBc total Ig; HBcAb total Ig) (11/29/2021 6:01 PM CDT) [facility] Time Signature HBcAb. Non Reactive Non Reactive [facility] Specimen Anatomical Collection Method Collection Time Receive d Time (Source) Location / / Volume Laterality Blood 11/29/2021 6:01 PM 2 7:15 CDT AM CDT Zhang Abernathy MD LAB BLOOD ORDERABLES Performing Organization Address City/State/[facility] Phon e Number [facility] Unless otherwise noted, [address] all lab tests performed by: Division of Pathology and Laboratory Medicine Sri Eveline Bautista Cryptococcal Ag Serum Path Review (11/29/2021 6:01 PM CDT) Component Value Ref Test Analysis Performed At [facility] Method Time [facility] Crypto Ag, Reviewed and Electronically signed by Pathologist: IA Serum MT RICKEY SANTANA MD #[id number] [facility] Comment: Reference Range: NEGATIVE The Cryptococcal Antigen Lateral Flow As say is a dipstick sandwich immunographic assay. Positive results will be titered. RICKEY SANTANA MD - [id number] Dictated by: RICKEY SANTANA MD - [id number] Dictated Date/Time: 11.30.2021 16:02 PM CDT Transcribed Date/Time: 11.30.2021 16:02 PM CDT Electronically Signed [place]: [place] [id number] on 11.30.2021 16:02 PM Specimen Anatomical Collection Method Collection Time Receive d Time (Source) Location / / Volume Laterality Blood 11/29/2021 6:01 PM 2 8:00 CDT PM CDT Zhang Abernathy MD MICROBIOLOGY - GENERAL ORDER FLOR Performing Organization Address City/State/ZIP [facility] Phon e Number [facility] Unless otherwise noted, [address] all lab tests performed by: Division of Pathology and Laboratory Medicine [address] [facility] Cryptococcal Antigen, Serum (11/29/2021 6:01 PM CDT) Patholo gist Method Time Signature Cryptococcal Ag Negative Negative [facility] [place] Specimen Anatomical Collection Method Collection Time Receive d Time (Source) Location / / Volume Laterality Blood 11/29/2021 6:01 PM 8:00 CDT PM CDT Zhang Abernathy MD MICROBIOLOGY - GENERAL ORDER FLOR Performing Organization Address City/State/ZIP Code Phon e Number [facility] Unless otherwise noted, [place] [address] CENTER all lab tests performed by: Division of Pathology and Laboratory Medicine [address] [facility] T-spot Tuberculosis (11/29/2021 6:01 PM CDT) athologist [...] the Centers for Disease Control and Prevention's 2010 re commendation to report quantitative measurements alongsi de the qualitative result, the laboratory provides spot cou nts for informational purposes only. The T-SPO T.TB test should not be interpreted as a quantitative test. Tspot TB Panel A 0 [facility] Tspot TB Panel B 0 [facility] Tspot TB Pos Cont Passed [facility] Comment: Lab test performed by: Lab Mnemonic: [facility] [address] [place] [address] TORIBIO TIRADO MD,PHD Tspot TB NIL Cont Passed [facility] Specimen Anatomical Collection Method Collection Time Receive d Time (Source) Location / / Volume Laterality Blood 11/29/2021 6:01 PM 2 6:17 CDT PM CDT Narrative [facility] - 12/02/2021 12:36 PM CDT If scheduling this lab at one of the following locations, it can only be collected on Sunday, Sunday, and Sunday due to collection/processing restrictions: [facility] REG DIAG LAB CTR [place] - REGS DIAG LAB CTR [facility] Zhang Abernathy MD LAB BLOOD ORDERABLES Performing Organization Address City/[facility] Phon e Number [facility] Histoplasma Ab Screen (11/29/2021 6:01 PM CDT) athologist Signature Histo Immuno Negative Negative [place] Ab-[facility] Comment: A negative complement fixation and immun odiffusion (CF/ID) result does not exclude the diagnosis of histoplasmosis. Repeat testing by CF/ID in 1-2 weeks if clinically indicated. Test Performed by: [facility] [address] [place] [address] Historical Guide: Kushal Cannon M.D. Ph. D.; CLIA# [id number] Histo Mycel Ab-[place] Negative Negative IA [facility] Histo Yeast Ab-[place] Negative Negative IA [facility] Specimen Anatomical Collection Method Collection Time Receive d Time (Source) Location / / Volume Laterality Blood 11/29/2021 6:01 PM 2 6:57 CDT PM CDT Zhang Abernathy MD LAB BLOOD ORDERABLES Performing Organization Address [facility] Phon e Number [facility] Unless otherwise noted, [place] [address] [place] all lab tests performed by: Division of Pathology and Laboratory Medicine Nicole Bautista Coccidioides Ab (11/29/2021 6:01 PM CDT) athologist Signature Cocci Comp Negative Negative IA Fix-[facility] Cocci IgG-Junction Negative Negative [facility] Cocci IgM-Cano Negative Negative [facility] Comment: A negative complement fixation and immun odiffusion (CompF/ImmDiff) result does not exclude the diagnosis of coccidioidomycosis. Repeat testing by CompF/ImmDiff in 2-3 weeks if clinically indicated. Test Performed by: [facility] [address] [place], [place] [address] Historical Guide: Kushal Cannon M.D. Ph. D.; CLIA# [id number] Specimen Anatomical Collection Method Collection Time Receive d Time (Source) Location / / Volume Laterality Blood 11/29/2021 6:01 PM 7:06 CDT PM CDT Zhang Abernathy MD LAB BLOOD ORDERABLES Performing Organization Address City/State/ZIP Code Phon e Number [facility] Unless otherwise noted, [place] [address] CENTER all lab tests performed by: Division of Pathology and Laboratory Medicine [facility] OSI PET CT Skull to Mid Thigh (11/28/2021 11:06 PM CDT) Specimen (Source) Anatomical Location Collection Method / Collectio n Time Received Time / Laterality Volume Narrative Systemgenerated, Documentation - 022 11:07 PM CDT Study acquired at another institution. For comparison only. No MD [place] originated interpretation requested or a vailable. Clay [place] OUTSIDE IMAGE ORDERABLES OSI CT Chest (11/16/2021 2:06 AM CDT) Specimen (Source) Anatomical Location Collection Method / Collectio n Time Received Time / Laterality Volume Narrative Systemgenerated, Documentation - 022 2:06 AM CDT Study acquired at another institution. For comparison only. No MD Vitale originated interpretation requested or a vailable. Clay [place] OUTSIDE IMAGE ORDERABLES OSI Bone Density Study (10/28/2021 2:06 AM CDT) Specimen (Source) Anatomical Location Collection Method / Collectio n Time Received Time / Laterality Volume Narrative Systemgenerated, Documentation - 022 2:06 AM CDT Study acquired at another institution. For comparison only. No MD [place] originated interpretation requested or a vailable. Clay SALINAS OUTSIDE IMAGE ORDERABLES after 04/23/2021 Insurance Payer Benefit Plan Subscriber ID Effective Phone Address Typ e / Group Dates [employer] MANAGED CIGNA HMO POS [id number] 2021-Prese [address] HMO [place] [id number] [place] [address] MEDICARE MEDICARE PART [id number] 2008-Prese [phone] [facility] Medicare A AND B nt 82 SOLUTIONS [address] [place] [address] Care Teams Registered Route Associate Relationship Specialty Start Date End Date Sheba Velez PCP - External Primary Nurse Practitioner 11/17/[address] [place] [address] Clay Ahumada MD PCP - External Follow Up Pulmonary Medicine 11/17/21 [address] [place] [address] Zhang Abernathy MD PCP - General Internal Medicine 11/24/21 12/26/[address] [place] [id number] Moncho Terrell, PCP - General Thoracic Medicine 12/27/21 MD Sudeep [facility] [place] [address]
--- OUTSIDE RECORDS SUMMARY | 2022-04-23 14:45 | XMS REPORT | Continuity of Care Document ---
:1945 Author Organization [facility] t Address [address] [place] [address] Care Team Providers Name Role Phone Cheli HO, Sammie Navarrete Primary Care Physician [phone] SYSTEM, PROVIDER NOT IN Attending Clinician Unavailable Dai Crouch MD Attending Clinician [phone] DAI CROUCH Attending Clinician Unavailable SOFY ALMENDAREZ Attending Clinician Unavailable Shara PharmDElvia Attending Clinician Unavailable Sofy Castillo Attending Clinician Cyndy Anglin RN Attending Clinician Unavailable Yu Mosquera RN Attending Clinician [phone] YU VITALE Attending Clinician Unavailable QING BARRIOS Attending Clinician Unavailable Qing Barrios MD Attending Clinician [phone] Keaton Rodriguez MD Attending Clinician Tammy Palm Attending Clinician TAMMY LOPEZ Attending Clinician Unavailable Matilda Condon RN Attending Clinician Unavailable Kaylie Mota MD Attending Clinician KAYLIE MOTA Attending Clinician Unavailable Hector PharmMeredith Pollard Attending Clinician LEODAN BARAKAT Attending Clinician Unavailable Franky Lopez RN Attending Clinician Unavailable Finn Gifford RN Attending Clinician Unavailable Darrick Howard, Tra Attending Clinician BRINA HOLLOWAY Attending Clinician Unavailable Juan Pablo INMAN, Ambreen Newberry Attending Clinician Cyndy Min APN Attending Clinician Balaji COLLAZO, Indira Wiseman Attending Clinician Unavailable Rad INMAN, Muriel Attending Clinician Mariama Baez MA Attending Clinician Brittney INMAN, Giorgi Bates Attending Clinician Elana Yoon Attending Clinician Brenden SALAZAR, Sana Liu Attending Clinician Nubia COLLAZO, Dany Newberry Attending Clinician Unavailable Brandyn SALAZAR, Susie Attending Clinician IMSAEL TONY Attending Clinician Unavailable Wade Sorto MD Attending Clinician [phone] Familia HO, Holley Attending Clinician [phone] JOSE ABERNATHY Attending Clinician Unavailable Jim Hernadez MD Attending Clinician Ca HO, Pedro Garcia Attending Clinician Rasta HO, Goldie Attending Clinician Reed SALAZAR, Jennie Liu Attending Clinician Carine COLLAZO, Yu Allison Attending Clinician [phone] Jose Abernathy MD Attending Clinician RADIOLOGY, DEPT Attending Clinician Unavailable Shyanne Muñiz Attending Clinician Unavailable Jason De Jesus MD Attending Clinician Ella Verduzco Attending Clinician [place]on COLLAZO, Sandy Montenegro Attending Clinician Unavailable CLAY AHUMADA Attending Clinician Unavailable Olimpia Valencia Attending Clinician Anika Noonan NP Attending Clinician Valentin RN, Tristen Cavazos Attending Clinician Unavailable LAB39 Attending Clinician Unavailable Brina Holloway MD Attending Clinician FATUMA BAUMANN Attending Clinician Unavailable LAB90 Attending Clinician Unavailable SAMMIE BOWER Attending Clinician Unavailable KAYLIE MOTA Admitting Clinician Unavailable Payers Payer Name Policy Type Policy Number Effective Date Expiration Date Macy fajardo MEDICARE-PART B 5 [id number] 2021 00:00:00 CIGNA 2 [id number] 2021 00:00:00 Problems Condition Condition Condition Status [...] chest pain 7-12 it y of 00:00: [place] 00 MD Jose Angel [facility] [place] Nicotine Nicotine Disease Active Unive rs dependence dependence 6-29 it y of 00:00: 00 MD [facility] Adenocarci Adenocarci Disease Active Last U nivers noma, NOS noma, NOS 6-23 Assessmen i ty of of upper of upper 00:00: t & Plan: [place] as lobe, lung lobe, [facility] <Left> g of this Anderso note n might be Cancer different Center from the original. Ms. 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 She has completed PET scan and EBUS as well. Dr. Jim Hernadez provided a detailed explanati on of her different treatment options but ultimatel y recommend ed neoadjuva nt therapy in the form of a clinical trial with targeted therapy or chemoimmu notherapy followed by surgery with left upper lobectomy . She is seeing thoracic medical oncology today and we will see her after treatment is completed . intermediate intermediate Disease Active Jarrett marksy (current) (current) 3-30 Seyb old use of use of 00:00: inhaled inhaled 00 steroids steroids COPD COPD Disease Active More (chronic (chronic 3-30 Seybol d obstructiv obstructiv 00:00: e e 00 pulmonary pulmonary disease) disease) with with chronic chronic bronchitis bronchitis Mesa or [place]a or Disease Active More callus callus 3-30 Seybold 00:00: 00 HTN HTN Disease Active More (hypertens (hypertens 1-25 Se ybold ion) ion) 00:00: 00 Chronic Chronic Disease Active Univers obstructiv obstructiv 4-05 it y of e e 00:00: [place] pulmonary pulmonary 00 [place] disease disease [facility] Coronary Coronary Disease Active Unive rs arterioscl arterioscl 4-05 it y of erosis erosis 00:00: [place] MD Jose Angel wiseman [facility] Gastroesop Gastroesop Disease Active U nivers hageal hageal 4-05 ity of reflux reflux 00:00: [place] disease disease 00 MD Jose Angel wiseman [facility] Hypertensi Hypertensi Disease Active U nivers ve ve 4-05 ity of disorder disorder 00:00: [place] 00 MD Jose Angel wiseman [facility] Tobacco Tobacco Disease Active Univers user user 4-05 ity of 00:00: [place] 00 MD Jose Angel wiseman [facility] Shortness Shortness Disease Active Uni vers of breath of breath 4-05 ity of 00:00: [place] 00 MD Jose Angel wiseman [facility] Allergies, Adverse Reactions, Alerts Allergy Allergy Status Severity Reaction(s) Onset Inactive Treating Comm ents Source Name Type Date Date Clinician CLINDAMY DRUG Active MD PEDRO INGREDI 4 Anderso 00:00: n 00 CLINDAMY DRUG Active MD PEDRO INGREDI 4 Anderso 00:00: n 00 CLINDAMY DRUG Active MD PEDRO INGREDI 4 Anderso 00:00: n 00 CLINDAMY DRUG Active GRECIA INGREDI 4 Anderso 00:00: n 00 CLINDAMY DRUG Active MD PEDRO INGREDI 4 Anderso 00:00: n 00 CLINDAMY DRUG Active 2018-0 MD GRECIA INGREDI 4-04 Anderso 00:00: n 00 CLINDAMY DRUG Active 2018-0 MD GRECIA INGREDI 4-04 Anderso 00:00: n 00 CLINDAMY DRUG Active 2018-0 MD GRECAI INGREDI 4-04 Anderso 00:00: n 00 CLINDAMY [...] n 00 CLINDAMY DRUG Active 2018-0 MD GRECAI INGREDI 4-04 Anderso 00:00: n 00 CLINDAMY [...] Allergy 4-04 reaction( ity of 00:00: s): [place] [address] Itching/H MD lincoln/Rash Anderso Other n reaction( Cancer s): [place] Itching/H [place]/Rash Family History Family Member Diagnosis Comments Start Date Stop Date Source Natural brother Dementia [facility] [place] Natural daughter Skin cancer [facility]ance r [place] Natural father [facility] Cance r [place] Natural mother Brain cancer [facility] Cance r [place] Natural son [facility] [place] [facility] Cance r [place] Social History Social Habit Start Date Stop Date Quantity Comments Source Exposure to 2022-04-07 2022-04-17 Not sure [facility] SARS-CoV-2 (event) 00:00:00 08:04:00 [facility] Cancer [place] Alcohol intake 2022-04-10 2022-04-10 Ex-drinker [facility] 00:00:00 00:00:00 (finding) [place] MD Ruelas [facility] Cigarettes smoked 2022-01-24 2022-01-24 [facility] ity of current (pack per 00:00:00 00:00:00 Niecy Vitale ) - Reported Cancer Ce nter Cigarette 2022-01-24 2022-01-24 University of pack-years 00:00:00 00:00:00 [place] MD Suraj evans [facility] Tobacco use and 2022-01-24 2022-01-24 Smokeless Universit y of exposure 00:00:00 00:00:00 tobacco non-user [facility] History of tobacco 1961-06[birth year]18 2022-01-12 Cigarette Smoker University of use 00:00:00 00:00:00 [place] MD Suraj evans [facility] Tobacco Comment 2021-12-14 2021-12-14 6-8 cpd x 1 Universi ty of 00:00:00 00:00:00 month [place] MD Suraj evans [facility] Education 2021-11-29 2021-11-29 10 University of 00:00:00 00:00:00 [place] MD Suraj evans [facility] Sex [birth year] Universit y of 00:00:00 00:00:00 [place] MD Surja evans [facility] Smoking Status Start Date Stop Date Source Ex-smoker 2022-01-24 00:00:00 2022-01-24 00:00:00 Universi ty of [facility] Smokes tobacco daily 2021-09-14 00:00:00 More Mendes Medications Ordered Filled Start Stop Current Ordering Indication Dosage Frequency Signature Comments Components Source Medication Medication Date Date Medication? Clinician (SIG) Name Name esomeprazol 2021-06 Yes 40mg Take 40 mg Univers e (NexIUM) 0-28 by mouth ity o f 40 MG 13:19: every [place] capsule 53 morning MD before Andmaryo breakfast. [facility] senna 2021-06 Yes 1{tbl} Take 1 Univers (SENOKOT) 0-28 tablet by ity o f 8.6 mg 13:19: mouth. [place] tablet 53 Andanca wiseman [facility] cholecalcif 2021-06- No 1000U Take 1,000 Univers rick, 0-03 10-03 Units by ity of vitamin D3, 08:19: 00:00 [place] 25 mcg 45 :00 daily. (1,000 Anderso unit) n capsule [facility] budesonide- 2021-06 Inhale by [facility] formoterol 0-03 10-03 mouth ity of (SYMBICORT) 08:19: 00:00 [place] 160-4.5 39 :00 daily. MD morris/ruth Walter on inhaler n Cancer Center ascorbic 2021-06- No 500mg Take 500 Uni vers acid 0-03 10-03 mg by ity of (VITAMIN C) 08:19: 00:00 [place] 500 mg 14 :00 daily. tablet Jose Angel [facility] calcium 2021-06- No 1{tbl} Take 1 Unive rs carbonate 0-03 10-03 tablet by ity of (CALCIUM 08:19: 00:00 mouth [place] 500 ORAL) 01 :00 daily. MD Jose Angel wiseman [facility] baclofen Yes 3 (three) Univ ers (LIORESAL) 9-23 times a ity of 10 mg 00:00: day as [place] tablet 00 needed. MD Jose Angel wiseman [facility] atorvastati Yes Univer s n (LIPITOR) 9-20 ity of 40 mg 00:00: [place] tablet 00 MD Jose Angel wiseman [facility] esomeprazol Yes 40mg Take 40 mg Univers e (NexIUM) 9-12 by mouth ity o f 40 MG 09:22: every [place] capsule 18 morning MD before Jose Angel breakfast. [facility] calcium Yes 1{tbl} Take 1 Univer s carbonate 9-12 tablet by ity o f (CALCIUM 09:22: mouth [place] 500 ORAL) 18 daily. MD Jose Angel wiseman [facility] cholecalcif Yes 1000U Take 1,000 Univers rick, 9-12 Units by ity of vitamin D3, 09:22: mouth [place] 25 mcg 18 daily. (1,000 Anderso unit) bowen capsule [facility] ascorbic Yes 500mg Take 500 Univ ers acid 9-12 mg by ity of (VITAMIN C) 09:22: mouth [place] 500 mg 18 daily. tablet Jose Angel [facility] budesonide- Yes Inhale by U nivers formoterol 9-12 mouth ity of (SYMBICORT) 09:22: twice [place] 160-4.5 18 daily. MD ezio Walter on inhaler [facility] apixaban Yes Adenocarcin 5mg Take 1 Univers (Eliquis) 5 9-12 muriel of left tablet (5 ity of mg tablet 00:00: lung mg) by [place] 00 mouth MD every 12 Anderso (twelve) n hours. Cancer Center fluticasone Yes Simple 1{puff} Inhale 1 Univers propion-funmi 9-12 chronic puff by it y of meteroL 00:00: bronchitis mouth [place] as 232-14 00 twice MD mcg/actuati daily. Darryl o on aepb n Cancer Center apixaban Yes Adenocarcin 5mg Take 1 Univers (Eliquis) 5 9-12 muriel of left tablet (5 ity of mg tablet 00:00: lung mg) by [place] 00 mouth MD every 12 Anderso (twelve) n hours. Cancer [place] fluticasone Yes Simple 1{puff} Inhale 1 Univers propion-funmi 9-12 chronic puff by it y of meteroL 00:00: bronchitis mouth [place] as 232-14 00 twice MD mcg/actuati daily. Darryl o on aepb n Cancer [place] dexamethaso Yes Adenocarcin 4mg Take 1 Univers ne - muriel, NOS of tablet (4 ity of (DECADRON) 00:00: upper lobe, mg) by [place] 4 mg tablet 00 lung <Left> mouth MD twice Anderso daily. n Take on Cancer days 2, 3, Center and 4 of each chemothera py cycle ondansetron Yes Adenocarcin 8mg Take 1 Univers (ZOFRAN) 8 - muriel, NOS of tablet (8 ity of mg tablet 00:00: upper lobe, mg) by [place] 00 lung <Left> mouth MD every 8 Anderso (eight) n hours as Cancer needed for Center nausea or vomiting. folic acid Yes Adenocarcin 400ug Take 1 Univers (FOLVITE) 9- muriel, NOS of tablet i ty of 400 mcg 00:00: upper lobe, (400 mcg) [place] tablet 00 lung <Left> by mouth MD daily. Anderso n Cancer [place] dexamethaso Yes Adenocarcin 4mg Take 1 Univers ne 9- muriel, NOS of tablet (4 ity of (DECADRON) 00:00: upper lobe, mg) by [place] 4 mg tablet 00 lung <Left> mouth MD twice Anderso daily. n Take on Cancer days 2, 3, Center and 4 of each chemothera py cycle ondansetron Yes Adenocarcin 8mg Take 1 Univers (ZOFRAN) 8 02-24 muriel, NOS of tablet (8 ity of mg tablet 00:00: upper lobe, mg) by [place] 00 lung <Left> mouth MD every 8 Anderso (eight) n hours as Cancer needed for Center nausea or vomiting. folic acid Yes Adenocarcin 400ug Take 1 Univers (FOLVITE) 02-24 muriel, NOS of tablet i ty of 400 mcg 00:00: upper lobe, (400 mcg) [place] tablet 00 lung <Left> by mouth MD daily. Anderso n Cancer [place] apixaban 2021- No Adenocarcin 5mg Take 1 Univers (Eliquis) 5 02-23-12 muriel of left tablet (5 ity of mg tablet 00:00: 00:00 lung mg) by [place] 00 :00 mouth MD every 12 Anderso (twelve) n hours. [facility] apixaban 2021- No Adenocarcin 5mg Take 1 Univers (Eliquis) 5 02-2312 muriel of left tablet (5 ity of mg tablet 00:00: 00:00 lung mg) by [place] 00 :00 mouth MD every 12 Anderso [...] beverages during, 5 min before/aft er use Nicoderm CQ Yes Nicotine Apply 1 Univers 21 mg/24 hr 8-23 dependence patch to ity of transdermal 00:00: skin [place] patch 00 change MD patch Anderso daily as n directed Cancer for Center tobacco cessation (alternate sites). Nicorette 2 Yes Nicotine 2mg Dissolve 1 Univers mg mini 02-07 dependence lozenge (2 ity of lozenge 00:00: mg) in [place] 00 mouth MD every 2 Anderso (two) n hours as Cancer needed for Center smoking cessation. Avoid acidic beverages during, 5 min before/aft er use apixaban Yes Adenocarcin Take 2 Univers (Eliquis 7-25 muriel of left tablets by ity of DVT-PE 00:00: lung mouth [place] Treat 30 twice MD Start) 5 mg daily for And erso (74 tabs) 7 days, n tablet then take Cancer 1 tablet Center by mouth twice daily thereafter . apixaban Yes Adenocarcin Take 2 Univers (Eliquis 7-25 muriel of left tablets by ity of DVT-PE 00:00: lung mouth [place] Treat 30 twice MD Start) 5 mg daily for And erso (74 tabs) 7 days, n tablet then take Cancer 1 tablet Center by mouth twice daily thereafter . apixaban 2021- No Adenocarcin 5mg Take 1 Univers (Eliquis) 5 - 09-08 muriel of left tablet (5 ity of mg tablet 00:00: 00:00 lung mg) by [place] 00 :00 mouth every 12 Anderso (twelve) n hours. Cancer Center apixaban 2021- No Adenocarcin 5mg Take 1 Univers (Eliquis) 5 - 09-08 muriel of left tablet (5 ity of mg tablet 00:00: 00:00 lung mg) by [place] 00 :00 mouth every 12 Anderso (twelve) n hours. Cancer Center aspirin 325 2021- No 325mg Take 325 Univers mg tablet 12-27 06-29 mg by ity of 20:19: 00:00 mouth. Nie[place] 54 :00 MD Jose Angel [facility] aspirin 325 2021- No 325mg Take 325 Univers mg tablet 12-27 06-29 mg by ity of 20:19: 00:00 mouth. [place]ie[place] 54 :00 MD Jose Angel [facility] Nicoderm CQ 2021- No Nicotine Apply 1 Univers 21 mg/24 hr 12-14 dependence patch to ity of transdermal 00:00: 00:00 skin and [place] patch 00 :00 change MD patch Anderso daily as n directed Cancer for Center tobacco cessation (alternate sites). Nicorette 2 2021- No Nicotine 2mg Dissolve 1 Univers mg mini 12-14 dependence lozenge (2 ity of lozenge 00:00: 00:00 mg) in the [place] as 00 :00 mouth MD every 2 Anderso (two) n hours as Cancer needed for Center smoking cessation. Avoid acidic beverages during, 5 min before/aft er use Nicoderm CQ 2021- No Nicotine Apply 1 Univers 21 mg/24 hr 12-14 dependence patch to ity of transdermal 00:00: 00:00 skin and [place] patch 00 :00 change MD patch Anderso daily as n directed Cancer for Center tobacco cessation (alternate sites). Nicorette 2 2021- No Nicotine 2mg Dissolve 1 Univers mg mini 12-14 dependence lozenge (2 ity of lozenge 00:00: 00:00 mg) in the [place] as 00 :00 mouth MD every 2 Anderso (two) n hours as Cancer needed for Center smoking cessation. Avoid acidic beverages during, 5 min before/aft er use albuterol Yes 2{puff} Inhale 2 U nivers (VENTOLIN 6-20 puffs by ity of HFA,PROAIR 00:00: mouth as [place] as HFA) 90 00 needed. MD mcg/puff Anderso inhaler n [facility] albuterol Yes 2{puff} Inhale 2 U nivers (VENTOLIN 6-20 puffs by ity of HFA,PROAIR 00:00: mouth. [place] HFA) 90 00 MD mcg/puff Anderso inhaler n [facility] fluticasone Yes 1{spray Inhale 1 Univers propionate 6-13 } spray into ity of (FLONASE) 00:00: each [place] 50 00 nostril as MD mcg/spray needed. Anderso nasal spray n [facility] fluticasone Yes 1{spray Inhale 1 Univers propionate 6-13 } spray into ity of (FLONASE) 00:00: each [place] 50 00 nostril as MD mcg/spray needed. Jose Angel nasal spray [facility] Alendronate Yes [id number] 70mg Take 1 More Sodium 70 11-16 tablet (70 Seyb old MG oral 00:00: mg total) Tablet 00 by mouth every 7 days alendronate 2021- No 1{tbl} Take 1 U nivers (FOSAMAX) 11-16 tablet by ity of 70 mg 00:00: 00:00 mouth once [place] tablet 00 :00 a week. MD Jose Angel wiseman [facility] alendronate 2021- No 1{tbl} Take 1 U nivers (FOSAMAX) 11-16 tablet by ity of 70 mg 00:00: 00:00 mouth once [place] tablet 00 :00 a week. MD Walter [facility] Fluticasone Yes 1{puff} Inhale 1 More -Salmeterol 5-16 puff into Sey bold 232-14 00:00: the lungs MCG/ACT 00 2 times inhalation daily AEROSOL POWDER, BREATH ACTIVATED Fluticasone Yes 1{puff} Inhale 1 More -Salmeterol 5-16 puff into Sey bold 232-14 00:00: the lungs MCG/ACT 00 2 times inhalation daily AEROSOL POWDER, BREATH ACTIVATED fluticasone 2021- No 1{puff} Inhale 1 Univers propion-funmi 5-16 09-12 puff by ity of meteroL 00:00: 00:00 mouth [place] 232-14 00 :00 twice MD mcg/actuati daily. Darryl brown on [facility] fluticasone 2021- No 1{puff} Inhale 1 Univers propion-funmi 5-16 09-12 puff by ity of meteroL 00:00: 00:00 mouth [place] 232-14 00 :00 twice MD mcg/actuati daily. Darryl brown on [facility] FLUTICASONE Yes [id number] 50ug Use 1 More PROPIONATE, 5-13 spray (50 Sey bold NASAL, 50 00:00: mcg total) MCG/ACT 00 in each nasal nostril Suspension daily Fluticasone 0 Yes 1{puff} Inhale 1 More -Salmeterol 4-28 puff into Sey bold 232-14 00:00: the lungs MCG/ACT 00 2 times inhalation daily AEROSOL POWDER, BREATH ACTIVATED Budesonide- 2021-0 2021- No 2{puff} Inhale 2 More Formoterol 3-30 03-30 puffs into Se ybold Fumarate 11:25: 00:00 the lungs 160-4.5 58 :00 2 times MCG/ACT daily inhalation Aerosol Albuterol 0 2021- No 1{puff} Inhale 1 More Sulfate 108 3-30 03-30 puff into Se ybold (90 Base) 11:14: 00:00 the lungs MCG/ACT 07 :00 every 4 to inhalation 6 hours as AEROSOL needed POWDER, BREATH ACTIVATED Fluticasone 0 Yes [id number] Inhale 1 More -Umeclidin- 3-30 inhalation Se ybold Vilant 00:00: into the (Trelegy 00 lungs Ellipta) daily 100-62.5-25 MCG/INH inhalation AEROSOL POWDER, BREATH ACTIVATED Fluticasone 2021-0 2021- No [id number] Inhale 1 More -Umeclidin- 3-30 04-28 inhalation S eybold Vilant 00:00: 00:00 into the (Trelegy 00 :00 lungs Ellipta) daily 100-62.5-25 MCG/INH inhalation AEROSOL POWDER, BREATH ACTIVATED ProAir HFA 2021-0 Yes More 108 (90 3-28 Seybold Base) 00:00: MCG/ACT 00 inhalation Aerosol Solution ProAir HFA 2021-0 Yes 2{puff} Inhale 2 More 108 (90 3-28 puffs into Seybol d Base) 00:00: the lungs MCG/ACT 00 inhalation Aerosol Solution ProAir HFA 2021-0 Yes 2{puff} Inhale 2 More 108 (90 3-28 puffs into Seybol d Base) 00:00: the lungs MCG/ACT 00 inhalation Aerosol Solution ProAir HFA 2021-0 Yes 1{puff} Inhale 1 Univers 90 3-28 puff by ity of mcg/actuati 00:00: mouth [place] on inhaler 00 needed. MD Jose Angel wiseman [facility] ProAir HFA 2021- No 1{puff} Inhale 1 Univers 90 3-28 10-03 puff by ity of mcg/actuati 00:00: 00:00 mouth as [place] on inhaler 00 :00 needed. MD Jose Angel wiseman [facility] metoprolol Yes 1{tbl} Take 1 Uni vers tartrate 2-15 tablet by ity of (LOPRESSOR) 00:00: mouth [place] 50 mg 00 twice MD tablet daily. [facility] Metoprolol Yes More Tartrate 50 2-15 Seybold MG oral 00:00: Tablet 00 Metoprolol Yes 50mg Take 50 mg K elsey Tartrate 50 2-15 by mouth Seyb old MG oral 00:00: in the Tablet 00 morning and 50 mg in the evening. Metoprolol Yes 50mg Take 50 mg K elsey Tartrate 50 2-15 by mouth Seyb old MG oral 00:00: in the Tablet 00 morning and 50 mg in the evening. metoprolol Yes 1{tbl} Take 1 Uni vers tartrate 2-15 tablet by ity of (LOPRESSOR) 00:00: mouth [place] 50 mg 00 [facility]. [facility]-06- No 1{puff} Inhale 1 Univers 160-4.5 2- 06-29 puff by ity of mcg/actuati 00:00: 00:00 [place] inhaler 00 :00 daily. MD Jose Angel wiseman [facility] Symbicort 2020-06- No 1{puff} Inhale 1 Univers 160-4.5 2- 06-29 puff by ity of mcg/actuati 00:00: 00:00 mouth [place] on inhaler 00 :00 daily. MD Jose Angel wiseman [facility] Immunizations Ordered Immunization Filled Immunization Date Status Commen ts Source Name Name Pneumococcal 2017-09-20 Completed University o f Polysaccharide 00:00:00 [place] MD Ramírez Tsai Pneumococcal 2017-09-20 Completed University o f Polysaccharide 00:00:00 [place] MD Ramírez manuel [place] Pneumococcal Vaccine, 2017-09-20 Completed Jarrett sey Seybold [...] Heart rate 2021-09-14 15:21:00 58 /min More S eybold Body temperature 2021-09-14 15:21:00 36.39 Charlette Cony ey Seybold Respiratory rate 2021-09-14 15:21:00 14 /min Cony ey Seybold Body height 2021-09-14 15:21:00 157.5 cm More murraybostaci Body weight 2021-09-14 15:21:00 49.261 kg More murraybostaci BMI 2021-09-14 15:21:00 19.86 kg/m2 More murraybostaci Oxygen saturation in 2021-09-14 15:21:00 99 /min More Mendes Arterial blood by Pulse oximetry Systolic blood 2022-04-17 14:45:56 120 mm[Hg] Univer sity of pressure [facility] Diastolic blood 2022-04-17 14:45:56 52 mm[Hg] Unive rsity of pressure [facility] Heart rate 2022-04-17 14:45:56 62 /min Universi ty of [facility] Body temperature 2022-04-17 14:45:56 36.78 Charlette Univ ersity of [facility] Respiratory rate 2022-04-17 14:45:56 20 /min Univ ersity of [facility] Oxygen saturation in 2022-04-17 14:45:56 98 /min University of Arterial blood by Niecy banks Pulse oximetry Cancer Center Body weight 2022-04-10 16:14:00 46 kg Universi ty of [facility] BMI 2022-04-10 16:14:00 19.65 kg/m2 Universi ty of [facility] Body height 2022-03-20 15:48:00 153 cm Universi ty of [facility] Systolic blood 2022-02-27 16:23:41 139 mm[Hg] Univer sity of pressure [facility] Diastolic blood 2022-02-27 16:23:41 63 mm[Hg] Unive rsity of pressure [facility] Heart rate 2022-02-27 16:23:41 60 /min Universi ty of [facility] Body temperature 2022-02-27 16:23:41 37.11 Charlette Univ ersity of [facility] Respiratory rate 2022-02-27 16:23:41 20 /min Univ ersity of [facility] Body weight 2022-02-27 16:23:41 47.8 kg Universi ty of [place] MD [facility] BMI 2022-02-27 16:23:41 20.96 kg/m2 Universi ty of [facility] Oxygen saturation in 2022-02-27 16:23:41 97 /min University Arterial blood by Niecy banks [facility] Body height 2022-02-07 18:21:00 151 cm [facility] [place] [facility] Procedures Procedure Date / Time Performing Clinician Source Performed COMPLETE BLOOD COUNT W/ 2022-04-17 13:15:59 Sofy Almendarez [facility] [place] DIFFERENTIAL [facility] COMPREHENSIVE METABOLIC 2022-04-17 13:15:59 [facility] [place] PANEL [facility] PHOSPHORUS LEVEL 2022-04-17 13:15:59 Sofy Almendarez [facility] MAGNESIUM LEVEL 2022-04-17 13:15:59 Sofy Almendarez [facility] Results CBC 2022-04-17 13:15:59 Sofy Almendarez [facility] Center MANUAL DIFFERENTIAL 2022-04-17 13:15:59 Sofy Almendarez Unive rsity of [facility] GLUCOSE LEVEL 2022-04-17 13:15:59 Sofy Almendarez [facility] BLOOD UREA NITROGEN 2022-04-17 13:15:59 Sofy Almendarez Unive rsity of [facility] ELECTROLYTE PANEL 2022-04-17 13:15:59 Sofy Almendarez [facility] Center SERUM CREATININE 2022-04-17 13:15:59 Sofy Almendarez [facility] .GLOMERULAR FILTRATION 2022-04-17 13:15:59 Sofy Almendarez [facility] [place] RATE [facility] CALCIUM LEVEL TOTAL 2022-04-17 13:15:59 Sofy Almendarez [facility] ALBUMIN LEVEL 2022-04-17 13:15:59 Sofy Almendarez [facility] ALKALINE PHOSPHATASE 2022-04-17 13:15:59 Sofy Almendarez [facility] ALANINE AMINOTRANSFERASE 2022-04-17 13:15:59 Sofy Almendarez [facility] ASPARTATE AMINOTRANSFERASE 2022-04-17 13:15:59 Sofy Almendarez [facility] TOTAL PROTEIN 2022-04-17 13:15:59 Sofy Almendarez [facility] FRACTIONATED BILIRUBIN 2022-04-17 13:15:59 [facility] COMPREHENSIVE METABOLIC 2022-04-10 15:38:00 Salvador Philip [facility] PANEL Dai HO [facility] COMPLETE BLOOD COUNT W/ 2022-04-10 15:38:00 Salvador Philip [facility] DIFFERENTIAL Dai HO [facility] MAGNESIUM LEVEL 2022-04-10 15:38:00 [facility] PHOSPHORUS LEVEL 2022-04-10 15:38:00 Salvador Philip [facility] Dai HO [facility] THYROID STIMULATING 2022-04-10 15:38:00 Salvador Philip [facility] HORMONE Dai HO [facility] FREE THYROXINE 2022-04-10 15:38:00 Salvador Philip [facility] Dai HO [facility] GLUCOSE LEVEL 2022-04-10 15:38:00 [facility] BLOOD UREA NITROGEN 2022-04-10 15:38:00 Salvador Philip [facility] Dai HO [facility] ELECTROLYTE PANEL 2022-04-10 15:38:00 Salvador Philip [facility] Dai HO [facility] SERUM CREATININE 2022-04-10 15:38:00 Salvador Philip [facility] Dai HO [facility] .GLOMERULAR FILTRATION 2022-04-10 15:38:00 Salvador [facility] D[facility] HO [facility] CALCIUM LEVEL TOTAL 2022-04-10 15:38:00 Salvador Philip [facility] Dai HO [facility] ALBUMIN LEVEL 2022-04-10 15:38:00 [facility] Dai HO [facility] ALKALINE PHOSPHATASE 2022-04-10 15:38:00 [facility] ALANINE AMINOTRANSFERASE 2022-04-10 15:38:00 [facility] ASPARTATE AMINOTRANSFERASE 2022-04-10 15:38:00 Salvador [facility] [place] [facility] TOTAL PROTEIN 2022-04-10 15:38:00 Salvador [facility] Dai HO [facility] FRACTIONATED BILIRUBIN 2022-04-10 15:38:00 Salvador Philip [facility] Dai HO [facility] Results CBC 2022-04-10 15:38:00 Salvador [facility] Dai HO [facility] MANUAL DIFFERENTIAL 2022-04-10 15:38:00 Salvador Philip [facility] Dai HO [facility] CT CHEST WO CONTRAST 2022-04-07 14:08:21 Yu Vitale [facility] 6 MINUTE WALK TEST 2022-03-20 15:53:15 Tammy Lopez [facility] COMPREHENSIVE METABOLIC 2022-03-20 12:01:00 Salvador Philip [facility] PANEL Dai HO [facility] COMPLETE BLOOD COUNT W/ 2022-03-20 12:01:00 [facility] MAGNESIUM LEVEL 2022-03-20 12:01:00 Salvador Philip [facility] Dai HO [facility] [place] PHOSPHORUS LEVEL 2022-03-20 12:01:00 Salvador Philip [facility] Dai HO [facility] GLUCOSE LEVEL 2022-03-20 12:01:00 Salvador Philip [facility] Dai HO [facility] BLOOD UREA NITROGEN 2022-03-20 12:01:00 Salvador Philip [facility] Dai HO [facility] ELECTROLYTE PANEL 2022-03-20 12:01:00 Salvador Philip [facility] Dai HO [facility] SERUM CREATININE 2022-03-20 12:01:00 Salvador Philip [facility] Dai HO [facility] .GLOMERULAR FILTRATION 2022-03-20 12:01:00 Salvador Philip [facility] Dai HO [facility] CALCIUM LEVEL TOTAL 2022-03-20 12:01:00 Salvador Philip [facility] Dai HO [facility] ALBUMIN LEVEL 2022-03-20 12:01:00 [facility] ALKALINE PHOSPHATASE 2022-03-20 12:01:00 Salvador Philip [facility] Dai HO [facility] ALANINE AMINOTRANSFERASE 2022-03-20 12:01:00 Salvador Philip [facility] Dai HO [facility] ASPARTATE AMINOTRANSFERASE 2022-03-20 12:01:00 [facility] TOTAL PROTEIN 2022-03-20 12:01:00 Salvador Philip [facility] Dai HO [facility] FRACTIONATED BILIRUBIN 2022-03-20 12:01:00 Salvador Philip [facility] Dai HO [facility] [place] Results CBC 2022-03-20 12:01:00 [facility] D[facility] HO [facility] [place] MANUAL DIFFERENTIAL 2022-03-20 12:01:00 Salvador Philip [facility] Dai HO [facility] COMPREHENSIVE METABOLIC 2022-02-27 13:30:00 Salvador Philip [facility] PANEL Dai HO [facility] COMPLETE BLOOD COUNT W/ 2022-02-27 13:30:00 [facility] D[facility] HO [facility] MAGNESIUM LEVEL 2022-02-27 13:30:00 [facility] HO [facility] PHOSPHORUS LEVEL 2022-02-27 13:30:00 [facility] THYROID STIMULATING 2022-02-27 13:30:00 [facility] D[facility] FREE THYROXINE 2022-02-27 13:30:00 [facility] HO [facility] GLUCOSE LEVEL 2022-02-27 13:30:00 [facility] D[facility] HO [facility] BLOOD UREA NITROGEN 2022-02-27 13:30:00 Salvador Philip [facility] Dai HO [facility] ELECTROLYTE PANEL 2022-02-27 13:30:00 Salvador Philip [facility] Dai HO [facility] SERUM CREATININE 2022-02-27 13:30:00 Salvador Philip [facility] Dai HO [facility] .GLOMERULAR FILTRATION 2022-02-27 13:30:00 Salvador Philip [facility] RATE Dai HO [facility] CALCIUM LEVEL TOTAL 2022-02-27 13:30:00 [facility] HO [facility] ALBUMIN LEVEL 2022-02-27 13:30:00 [facility] HO [facility] ALKALINE PHOSPHATASE 2022-02-27 13:30:00 Salvador Philip, [facility] Dai HO [facility] ALANINE AMINOTRANSFERASE 2022-02-27 13:30:00 Salvador Philip, [facility] Dai HO [facility] ASPARTATE AMINOTRANSFERASE 2022-02-27 13:30:00 Salvador Philip, U [facility] Dai HO [facility] TOTAL PROTEIN 2022-02-27 13:30:00 Salvador Philip [facility] Dai HO [facility] FRACTIONATED BILIRUBIN 2022-02-27 13:30:00 Salvador Philip, [facility] Dai HO [facility] Results CBC 2022-02-27 13:30:00 Salvador Philip [facility] Dai HO [facility] MANUAL DIFFERENTIAL 2022-02-27 13:30:00 Salvador Philip [facility] Dai HO [facility] COVID-19 (SARS-COV-2) 2022-02-11 20:11:00 Salvador Philip [facility] PCR-ASYMPTOMATIC JUAN MIGUEL Sheets MD [facility] PETCT SUBSEQUENT TREATMENT 2022-02-07 20:05:40 Salvador Philip, Laurita [facility] STRATEGY Dai HO [facility] MRI BRAIN W WO CONTRAST 2022-02-04 15:41:00 Salvador Philip, [facility] Dai HO [facility] SPIROMETRY W/DILATORS, 2022-02-03 19:30:48 Salvador hPilip [facility] DLCO AND BODY Dai HO [facility] PLETHSMOGRAPHIC LUNG Center VOLUMES APTT 2022-02-03 18:10:00 [facility] Dai HO [facility] PROTHROMBIN TIME 2022-02-03 18:10:00 Salvador Philip [facility] aDi HO [facility] COMPLETE BLOOD COUNT W/ 2022-02-03 18:10:00 Salvador Philip, [facility] DIFFERENTIAL Dai [facility] COMPREHENSIVE METABOLIC 2022-02-03 18:10:00 Salvador Philip [facility] LESLI Sheets MD [facility] er Center CORTISOL 2022-02-03 18:10:00 Salvador Philip [place] [facility] Dai HO [facility] THYROID STIMULATING 2022-02-03 18:10:00 Salvador Philip [facility] HORMONE Dai HO [facility] HEPATITIS B SURFACE 2022-02-03 18:10:00 Salvador Philip [facility] ANTIGEN, SERUM Dai HO [facility] HEPATITIS C VIRUS ANTIBODY 2022-02-03 18:10:00 Salvador [facility] AMYLASE LEVEL 2022-02-03 18:10:00 Salvador [facility] [place] [facility] Dai HO [facility] LIPASE LEVEL 2022-02-03 18:10:00 Salvador Philip [place] [facility] Dai HO [facility] GAMMA GLUTAMYL TRANSFERASE 2022-02-03 18:10:00 Salvador Philip [facility] Dai HO [facility] LACTATE DEHYDROGENASE 2022-02-03 18:10:00 Salvador Philip [facility] Dai HO [facility] MAGNESIUM LEVEL 2022-02-03 18:10:00 Salvador [facility] Dai HO [facility] URINALYSIS WITH 2022-02-03 18:10:00 [facility] MICROSCOPIC IF INDICATED Dai [facility] Results CBC 2022-02-03 18:10:00 Salvador [facility] Dai HO [facility] MANUAL DIFFERENTIAL 2022-02-03 18:10:00 Salvador Philip [facility] Dai HO [facility] GLUCOSE LEVEL 2022-02-03 18:10:00 [facility] Dai HO [facility] BLOOD UREA NITROGEN 2022-02-03 18:10:00 Salvador Philip [facility] Dai HO [facility] ELECTROLYTE PANEL 2022-02-03 18:10:00 Salvador Philip [facility] Dai HO [facility] SERUM CREATININE 2022-02-03 18:10:00 [facility]ai [facility] .GLOMERULAR FILTRATION 2022-02-03 18:10:00 Salvador Philip [facility] Dai [facility] CALCIUM LEVEL TOTAL 2022-02-03 18:10:00 [facility] Dai HO [facility] ALBUMIN LEVEL 2022-02-03 18:10:00 Salvador [facility] Dai [facility] ALKALINE PHOSPHATASE 2022-02-03 18:10:00 [facility] Dai HO [facility] ALANINE AMINOTRANSFERASE 2022-02-03 18:10:00 Salvador Philip, [facility] Dai [facility] ASPARTATE AMINOTRANSFERASE 2022-02-03 18:10:00 Salvador Philip, [facility] TOTAL PROTEIN 2022-02-03 18:10:00 Salvador [facility] Dai HO [facility] FRACTIONATED BILIRUBIN 2022-02-03 18:10:00 Salvador Philip [facility] Dai HO [facility] URINALYSIS MICROSCOPIC 2022-02-03 18:10:00 [facility] EKG, 12-LEAD (SCHEDULED) 2022-02-03 00:00:00 Salvador Philip, [facility] TISSUE SLIDES MATERIAL 2022-01-29 17:43:11 [facility] AP FISH ALK MATERIAL 2022-01-22 23:11:00 [facility] Dai MD [facility] AP FISH ROS1 MATERIAL 2022-01-22 23:11:00 Salvador Philip [facility] REQUEST Dai HO [facility] CT VENOGRAM BRAIN 2022-01-04 19:03:00 Sofy Almendarez [facility] MRI BRAIN W WO CONTRAST 2022-01-03 15:40:00 Sofy Almendarez [facility] Center HP MDA LOR MUTATION 2022-01-03 15:20:00 Sofy Almendarez [facility] ANALYSIS PRECISION PANEL MD [facility] HP SOLID TUMOR GENOMIC 2022-01-03 15:20:00 Sofy Almendarez [facility] ASSAY FUSIONS 2018 MD Ramírez Brown ancer INTERPRETATION AND REPORT Center HP LB ROS1 FUSION ANALYSIS 2021-12-27 17:21:00 Sofy Almendarez [facility] COLLECTION, BLOOD [facility] HP LB RET FUSION ANALYSIS 2021-12-27 17:21:00 Sofy Almendarez [facility] COLLECTION, BLOOD [facility] HP LB MET MUTATION 2021-12-27 17:21:00 Sofy Almendarez [facility] ANALYSIS COLLECTION, BLOOD [facility] HP LB ERBB2 FULL GENE 2021-12-27 17:21:00 Sofy Almendarez [facility] MUTATION ANALYSIS [facility], BLOOD Center HP LB EML4/ALK FUSION 2021-12-27 17:21:00 Sofy Almendarez [facility] ANALYSIS COLLECTION, BLOOD MD [facility] HP LB BRAF MUTATION 2021-12-27 17:21:00 Sofy Almendarez [facility] ANALYSIS COLLECTION, BLOOD [facility] MD NGS BLOOD CONTROL 2021-12-27 17:21:00 Sofy Almendarez [facility] HP LB LIQUID BIOPSY PANEL 2021-12-27 17:21:00 Sofy Almendarez [facility] V1 INTERPRETATION AND MD [facility] AP IHC PD-L1 MATERIAL 2021-12-27 16:44:06 Sofy Almendarez [facility] REQUEST MD Vit[facility] AP ROS1 FUSION ANALYSIS 2021-12-27 16:44:06 Sofy Almendarez [facility] MATERIAL REQUEST [facility] AP RET FUSION ANALYSIS 2021-12-27 16:44:06 Sofy Almendarez [facility] MATERIAL REQUEST [facility] AP NTRK3 FUSION 2021-12-27 16:44:06 Sofy Almendarez [facility] ANALYSIS MATERIAL REQUEST [facility] AP NTRK2 FUSION 2021-12-27 16:44:06 Sofy Almendarez [facility] ANALYSIS MATERIAL REQUEST [place] [facility] AP NTRK1 FUSION 2021-12-27 16:44:06 Sofy Almendarez [facility] ANALYSIS MATERIAL REQUEST [place] [facility] AP KRAS MUTATION 2021-12-27 16:44:06 Sofy Almendarez [facility] MATERIAL REQUEST [facility] AP EML4/ALK FUSION 2021-12-27 16:44:06 Sofy Almendarez [facility] ANALYSIS MATERIAL REQUEST [facility] AP BRAF V600 E MUTATION 2021-12-27 16:44:06 Sofy Almendarez [facility] MATERIAL REQUEST [facility] CYTOLOGY IMAGE-GUIDED FNA 2021-12-21 18:05:00 Kaylie Mota [facility] [place] INTERPRETATION [facility] BRONCHOSCOPY WITH EBUS 3 2021-12-21 17:21:00 Kaylie Mota [facility] [place] OR MORE NODES [facility] COVID-19 (SARS-COV-2) 2021-12-20 18:44:00 Kaylie [facility] [place] PCR ASYMPTOMATIC [facility] XR CHEST 2 VW 2021-12-09 16:37:52 Jose Abernathy [facility] IR CHEST XRAY 1 VIEW 2021-12-02 19:53:15 Jennifer Everett [facility] IR CHEST XRAY 1 VIEW 2021-12-02 16:48:48 Jennifer Everett [facility] IR CT GUIDED BIOPSY 2021-12-02 16:40:35 Jose Abernathy [facility] LUNG/MEDIASTINAL [facility] PATHOLOGY BIOPSY 2021-12-02 16:15:00 Jose Abernathy [facility] INTERPRETATION [facility] SPIROMETRY W/DILATORS, 2021-12-01 19:27:05 Jose Abernathy [facility] DLCO AND BODY [facility] PLETHSMOGRAPHIC LUNG Center VOLUMES COVID-19 (SARS-COV-2) 2021-12-01 15:36:00 Jose Abernathy Unive [facility] PCR-ASYMPTOMATIC [facility] Cancer [place] EKG, 12-LEAD (SCHEDULED) 2021-12-01 00:00:00 Jose Aber[facility]athy [facility] CRYPTOCOCCAL ANTIGEN, 2021-11-29 23:01:00 Jose [facility]ye [facility] SERUM [facility] CRYPTOCOCCAL ANTIGEN, 2021-11-29 23:01:00 Jose [facility]athy [facility] SERUM PATH REVIEW [facility] Center COMPREHENSIVE METABOLIC 2021-11-29 23:01:00 Jose Aber[facility]athy [facility] [place] PANEL [facility] COMPLETE BLOOD COUNT W/ 2021-11-29 23:01:00 Jose [facility]athy [facility] DIFFERENTIAL [facility] PROTHROMBIN TIME 2021-11-29 23:01:00 Jose Abernathy [facility] APTT 2021-11-29 23:01:00 Jose Abernathy [facility] HEPATITIS B SURFACE 2021-11-29 23:01:00 Jose Abernathy [facility] ANTIGEN, SERUM [facility] HEPATITIS B CORE ANTIBODY 2021-11-29 23:01:00 Jose Abernathy [facility] HEPATITIS C VIRUS ANTIBODY 2021-11-29 23:01:00 Jose Abernathy [facility] THYROID STIMULATING 2021-11-29 23:01:00 Jose Abernathy [facility] HORMONE [facility] COCCIDIOIDES ANTIBODY 2021-11-29 23:01:00 Jose [facility]athy [facility] HISTOPLASMA ANTIBODY 2021-11-29 23:01:00 Jose Abernathy [facility] SCREEN, SERUM [facility] T-SPOT TUBERCULOSIS 2021-11-29 23:01:00 Jose Abernathy [facility] GLUCOSE LEVEL 2021-11-29 23:01:00 Jose Abernathy [facility] BLOOD UREA NITROGEN 2021-11-29 23:01:00 Jose Abernathy [facility] ELECTROLYTE PANEL 2021-11-29 23:01:00 Jose Abernathy [facility] SERUM CREATININE 2021-11-29 23:01:00 Jose Abernathy [facility] .GLOMERULAR FILTRATION 2021-11-29 23:01:00 Jose Aberanthy [facility] RATE [facility] CALCIUM LEVEL TOTAL 2021-11-29 23:01:00 Jose Abernathy [facility] ALBUMIN LEVEL 2021-11-29 23:01:00 Jose Abernathy [facility] ALKALINE PHOSPHATASE 2021-11-29 23:01:00 Jose Abernathy [facility] ALANINE AMINOTRANSFERASE 2021-11-29 23:01:[address] [facility] ASPARTATE AMINOTRANSFERASE 2021-11-29 23:01:00 Jose Abernathy [facility] TOTAL PROTEIN 2021-11-29 23:01:00 Jose Abernathy [facility] FRACTIONATED BILIRUBIN 2021-11-29 23:01:00 Jose Abernathy [facility] Results CBC 2021-11-29 23:01:00 Jose Abernathy [facility] Center MANUAL DIFFERENTIAL 2021-11-29 23:01:00 Jose Abernathy [facility] OSI PET CT SKULL TO MID 2021-11-29 04:06:00 Clay Ahumada [facility] OSI CT CHEST 2021-11-16 07:06:00 Brandyn [facility] o f [facility] OSI BONE DENSITY STUDY 2021-10-28 07:06:00 Brandyn Clay [facility] Plan of Care Planned Activity Planned Date Details Comments Source Future Scheduled 2022-04-21 COVID-19 Vaccination [facility] [place] Test 11:50:08 (#1) [code = COVID-19 [facility] Center Future Scheduled 2022-03-03 COVID-19 Vaccination [facility] Test 07:21:24 (#1) [code = COVID-19 [facility] (#1)] Center Encounters Start End Encounter Admission Attending Care Care Encounter Source Date/Time Date/Time Type Type Clinicians Facility Department ID 2021-11-21 Outpatient SYSTEM, LEONA DELGADILLO [id number] 15:33:59 PROVIDER Darryl wiseman 2022-04-17 2022-04-17 Infusion Vailati 1.2.840.1 [id number] Univers 10:15:00 13:26:57 Xander 84018.1.1 Shakila 3.412.2.7 [place] .3.028139 .8 Jose [facility] 2022-04-17 2022-04-17 Outpatient EL VAILATI LEONA DELGADILLO [id number] 09:03:39 13:26:57 Darryl PHILIP 2022-04-17 2022-04-17 Outpatient EL VAILATI LEONA DELGADILLO [id number] 09:02:00 09:06:32 Darryl PHILIP 2022-04-17 2022-04-17 Telemedici Vailati 1.2.840.1 [id number] Univers 09:00:00 09:06:32 leidy Philip 71104.1.1 ity of Dai 3.412.2.7 [place] .3.287941 MD [facility]ccurdy [facility] 2022-04-17 2022-04-17 Outpatient KINDRA ALMENDAREZ, [facility] MDA [id number] 08:08:21 08:09:28 SOFY wayo n 2022-04-17 2022-04-17 Orders Shara, 1.2.840.1 [id number] Univers 00:00:00 00:00:00 Only Elvia Vaughn 54430.1.1 ity of 3.412.2.7 [place] .3.691083 MD Lott8 [facility] 2022-04-17 2022-04-17 Travel 1.2.840.1 1.2.246.236 7696 [id number] Univers 00:00:00 00:00:00 05160.1.1 350.1.13.41 ity of 3.412.2.7 2.[place].7.3.698 [place] .3.745629 084.8 MD [facility]ccurdy [facility] 2022-04-11 2022-04-11 Piedad Almendarez, 1.2.840.1 [id number] Univers 00:00:00 00:00:00 Only Sofy Brizuela 05218.1.1 ity of 3.412.2.7 [place] .3.374806 MD [facility] [place] 2022-04-10 2022-04-10 [facility] 1.2.840.1 [id number] [facility] 10:30:00 23:59:00 Bobby Philip 38634.1.1 it y of Dai 3.412.2.7 [place] .3.937002 MD Calli Walter [facility] 2022-04-10 2022-04-10 Outpatient SALVADOR [facility] MDA [id number] 10:30:00 23:59:00 Darryl PHILIP 2022-04-10 2022-04-10 Office Arnol, 1.2.840.1 [id number] [facility] 11:30:00 12:17:57 Visit Sofy Brizuela 37256.1.1 ity of 3.412.2.7 [place] .3.756372 MD Mccurdy [facility] 2022-04-10 2022-04-10 Outpatient KINDRA ALMENDAREZ MDA MDA [id number] MD 11:10:40 12:17:57 SOFYKITTY Novak tyra wiseman 2022-04-10 2022-04-10 Travel 1.2.840.1 1.2.966.377 2966 [id number] [facility] 00:00:00 00:00:00 81495.1.1 350.1.13.41 ity of 3.412.2.7 2.2.7.3.698 [place] .3.736170 084.8 MD Lott8 [facility] 2022-04-10 2022-04-10 Evin Anglin, 1.2.840.1 [id number] [facility] 00:00:00 00:00:00 Cnydy Newberry 64434.1.1 i ty of 3.412.2.7 [place] .3.423619 MD Mccurdy [facility] 2022-04-07 2022-04-07 [facility] Ramírez, 1.2.840.1 [id number] Univers 09:05:00 10:30:00 Procedure Yu Brizuela 79915.1.1 it y of 3.412.2.7 [place] .3.436002 MD Mccurdy [facility] 2022-04-07 2022-04-07 Outpatient KINDRA VITALE MDA MDA [id number] 08:36:12 08:36:12 YU wiseman 2022-04-07 2022-04-07 Travel 1.2.840.1 1.2.987.496 [id number] [facility] 00:00:00 00:00:00 90823.1.1 350.1.13.41 ity of 3.412.2.7 2.[place].7.3.698 [place] .3.070717 084.8 .8 [facility] [place] 2022-03-27 2022-03-27 Outpatient SANFORDELLEN [facility] MDA [id number] 09:43:19 09:43:19 QING AGUERO 2022-03-27 2022-03-[facility] Barrios 1.2.840. 1 [id number] [facility] 09:00:00 09:30:00 Keaton Benitez 18173.1.1 ity of 3.412.2.7 [place] .3.376642 .[address] [facility] 2022-03-27 2022-03-27 Piedad Rodriguez 1.2.840.1 [id number] [facility] 00:00:00 00:00:00 Only Keaton 66225.1.1 ity of 3.412.2.7 [place] .3.351734 MD Lott8 [facility] 2022-03-20 2022-03-20 [facility] 1.2.840.1 [id number] [facility] 09:10:18 23:59:00 Encounter Tammy 64587.1.1 it y of 3.412.2.7 [place] .3.021407 MD [facility]ccurdy [facility] 2022-03-20 2022-03-20 [facility] [id number] [place] 09:10:18 23:59:00 TAMMY wiseman 2022-03-20 2022-03-20 Infusion Dai Crouch 1.2.840.1 [id number] [facility] 12:00:00 16:47:49 Matilda Condon 16198.1.1 ity of 3.412.2.7 [place] .3.845320 MD Lott8 [facility] 2022-03-20 2022-03-20 Outpatient SALVADOR [facility] MDA [id number] 11:44:03 16:47:49 Darryl PHILIP 2022-03-20 2022-03-20 Consult Nakul, 1.2.840.1 [id number] [facility] 11:00:00 11:15:27 Kaylie 04041.1.1 ity of 3.412.2.7 [place] .3.881631 MD Lott8 [facility] 2022-03-20 2022-03-20 Outpatient NAKUL, [facility] MDA [id number] 10:38:11 11:15:27 KAYLIE wiseman 2022-03-20 2022-03-20 [facility] 1.2.840.1 [id number] [facility] 06:50:00 09:09:00 Encounter Xander 97744.1.1 it y of Dai 3.412.2.7 [place] .3.909407 .8 Jose Angel wiseman [facility] 2022-03-20 2022-03-20 Outpatient [facility] [id number] 06:50:00 09:09:00 Darryl PHILIP 2022-03-20 2022-03-20 [facility] 1.2.840.1 [id number] [facility] 08:20:00 08:49:46 Visit Xander 75293.1.1 ity of Dai 3.412.2.7 [place] .3.244861 MD Lott8 [facility] 2022-03-20 2022-03-20 Outpatient [facility] [id number] MD 07:48:53 08:49:46 Darryl PHILIP 2022-03-20 2022-03-20 Piedad Young, 1.2.840.1 [id number] Univers 00:00:00 00:00:00 Only Meredith 40902.1.1 ity of 3.412.2.7 [place] .3.267344 MD Lott8 Jose Angel wiseman [facility] 2022-03-20 2022-03-20 Travel 1.2.840.1 1.2.866.223 [id number] [id number] Univers 00:00:00 00:00:00 06493.1.1 350.1.13.41 ity of 3.412.2.7 2.2.7.3.698 [place] .3.213230 084.8 MD Lott8 [facility] 2022-03-09 2022-03-09 Outpatient MORE BARAKAT [id number] More 00:00:00 00:00:00 LEODAN Gallowayjes pollard 2022-03-09 2022-03-09 Documentat John, 1.2.840.1 [id number] Univers 00:00:00 00:00:00 ion Franky 90249.1.1 ity of 3.412.2.7 [place] .3.943465 MD Lott8 [facility] 2022-03-09 2022-03-09 Telephone Arnol, 1.2.840.1 [id number] Univers 00:00:00 00:00:00 Sofy Brizuela 40832.1.1 ity of 3.412.2.7 [place] .3.947027 MD Mccurdy [facility] 2022-02-28 2022-02-28 Orders Jessica, 1.2.840.1 [id number] Univers 00:00:00 00:00:00 Only Tammy 83302.1.1 ity of 3.412.2.7 [place] .3.463776 MD Mccurdy [facility] 2022-02-28 2022-02-28 Orders Jessica, 1.2.840.1 [id number] Univers 00:00:00 00:00:00 Only Tammy 26363.1.1 ity of 3.412.2.7 [place] .3.944073 MD Lott8 [facility] 2022-02-27 2022-02-27 [facility] 1.2.840.1 [id number] Univers 06:45:00 23:59:00 Bobby Philip 81843.1.1 it y of Dai 3.412.2.7 [place] .3.116438 MD Lott8 [facility] 2022-02-27 2022-02-27 [facility] 1.2.840.1 [id number] Univers 06:45:00 23:59:00 Encounter Xander 60265.1.1 it y of Dai 3.412.2.7 [place] .3.603285 MD Lott8 [facility] 2022-02-27 2022-02-27 Infusion EL Dai Crouch 1.2.840.1 [id number] Univers 11:00:00 17:49:00 Finn Gifford 39430.1.1 ity of 3.412.2.7 [place] .3.726820 MD Lott8 [facility] 2022-02-27 2022-02-27 [facility] Dai Crouch 1.2.840.1 [id number] Univers 11:00:00 17:49:00 Finn Gifford 90526.1.1 ity of 3.412.2.7 [place] .3.074054 MD Lott8 [facility] 2022-02-27 2022-02-27 Office [place] 1.2.840.1 [id number] Univers 09:40:00 10:33:36 Visit Xander 73842.1.1 ity of Dai 3.412.2.7 [place] .3.171989 MD Lott8 [facility] 2022-02-27 2022-02-27 Office [place] 1.2.840.1 [id number] Univers 09:40:00 10:33:36 Visit Jalenjan 79104.1.1 ity of Dai 3.412.2.7 [place] .3.434673 MD Lott8 [facility] 2022-02-27 2022-02-27 Travel 1.2.840.1 1.2.958.892 5202 [id number] Univers 00:00:00 00:00:00 72376.1.1 350.1.13.41 ity of 3.412.2.7 2.2.7.3.698 [place] .3.225747 084.8 MD Mccurdy [facility] 2022-02-27 2022-02-27 Travel 1.2.840.1 1.2.673.252 8781 [id number] Univers 00:00:00 00:00:00 92750.1.1 350.1.13.41 ity of 3.412.2.7 2.2.7.3.698 [place] .3.437743 084.8 MD Mccurdy [facility] 2022-02-23 2022-02-23 Telephone Arnol, 1.2.840.1 [id number] Univers 00:00:00 00:00:00 Sofy E 06005.1.1 ity of 3.412.2.7 [place] .3.438939 MD Mccurdy [facility] 2022-02-23 2022-02-23 Orders Arnol, 1.2.840.1 [id number] Univers 00:00:00 00:00:00 Only Sofy E 74431.1.1 ity of 3.412.2.7 [place] .3.048864 MD Mccurdy [facility] 2022-02-23 2022-02-23 Orders Hollingsworth, 1.2.840.1 [id number] Univers 00:00:00 00:00:00 Only Tra 14146.1.1 ity of 3.412.2.7 [place] .3.050327 MD Mccurdy [facility] 2022-02-23 2022-02-23 Orders Arnol, 1.2.840.1 [id number] Univers 00:00:00 00:00:00 Only Sofy E 38550.1.1 ity of 3.412.2.7 [place] .3.662054 MD Mccurdy [facility] 2022-02-23 2022-02-23 Telephone Arnol, 1.2.840.1 [id number] Univers 00:00:00 00:00:00 Sofy E 69840.1.1 ity of 3.412.2.7 [place] .3.607661 MD Lott8 [facility] 2022-02-23 2022-02-23 Orders Arnol, 1.2.840.1 [id number] Univers 00:00:00 00:00:00 Only Sofy Brizuela 38826.1.1 ity of 3.412.2.7 [place] .3.536112 MD Lott8 [facility] 2022-02-23 2022-02-23 Orders Hollingsworth, 1.2.840.1 [id number] Univers 00:00:00 00:00:00 Only Tra 28050.1.1 ity of 3.412.2.7 [place] .3.581651 MD Lott8 [facility] 2022-02-23 2022-02-23 Orders Arnol, 1.2.840.1 [id number] Univers 00:00:00 00:00:00 Only Sofy Brizuela 25368.1.1 ity of 3.412.2.7 [place] .3.333866 MD Lott8 [facility] 2022-02-22 2022-02-22 Outpatient MORE HOLLOWAY [id number] More 10:00:00 10:00:00 BRINA pollard 2022-02-17 2022-02-17 Orders Juan Pablo, 1.2.840.1 [id number] Univers 00:00:00 00:00:00 Only Ambreen Newberry 68365.1.1 ity of 3.412.2.7 [place] .3.226628 MD Lott8 [facility] 2022-02-17 2022-02-17 Orders John, 1.2.840.1 [id number] Univers 00:00:00 00:00:00 Only Franky 95892.1.1 ity of 3.412.2.7 [place] .3.727190 MD Lott8 [facility] 2022-02-17 2022-02-17 Orders Juan Pablo, 1.2.840.1 [id number] Univers 00:00:00 00:00:00 Only Ambreen Rohith 69902.1.1 ity of 3.412.2.7 [place] .3.164693 MD Lott8 [facility] 2022-02-17 2022-02-17 Orders John, 1.2.840.1 [id number] Univers 00:00:00 00:00:00 Only Franky 79597.1.1 ity of 3.412.2.7 [place] .3.609343 MD Lott8 [facility] 2022-02-16 2022-02-16 Outpatient [facility] MDA [id number] 09:54:10 09:54:10 Darryl PHILIP 2022-02-15 2022-02-15 Orders Pako, 1.2.840.1 [id number] Univers 00:00:00 00:00:00 Only Cyndy Flores 31163.1.1 i ty of 3.412.2.7 [place] .3.310551 MD Lott8 [facility] 2022-02-15 2022-02-15 Orders Pako, 1.2.840.1 [id number] Univers 00:00:00 00:00:00 Only Cyndy Flores 11242.1.1 i ty of 3.412.2.7 [place] .3.847877 MD Lott8 [facility] 2022-02-13 2022-02-13 Outpatient [facility] MDA [id number] 10:35:04 10:35:04 Darryl PHILIP 2022-02-13 2022-02-13 Telephone Balaji 1.2.840.1 [id number] Univers 00:00:00 00:00:00 Indira Wiseman 35798.1.1 it y of 3.412.2.7 [place] .3.660619 MD Lott8 [facility] 2022-02-13 2022-02-13 Telephone Balaji 1.2.840.1 [id number] [id number] Univers 00:00:00 00:00:00 Indira Wiseman 34534.1.1 it y of 3.412.2.7 [place] .3.428954 MD Mccurdy [facility] 2022-02-11 2022-02-11 Clinical Muriel Sparks 1.2.840.1 [id number] Univers 15:30:00 15:45:00 Support Mariama Baez 81224.1.1 ity of 3.412.2.7 [place] .3.843192 MD Mccurdy [facility] 2022-02-11 2022-02-11 Clinical Muriel Leroy 1.2.840.1 [id number] Univers 15:30:00 15:45:00 Support Mariama Baez 61187.1.1 ity of 3.412.2.7 [place] .3.993404 MD Mccurdy [facility] 2022-02-11 2022-02-11 Travel 1.2.840.1 1.2.662.074 5283 [id number] [facility] 00:00:00 00:00:00 23041.1.1 350.1.13.41 ity of 3.412.2.7 2.2.7.3.698 [place] .3.998646 084.Kimberlee Mccurdy [facility] 2022-02-11 2022-02-11 Travel 1.2.840.1 1.2.795.819 0366 [id number] [facility] 00:00:00 00:00:00 06863.1.1 350.1.13.41 ity of 3.412.2.7 2.2.7.3.698 [place] .3.171700 084.8 MD Mccurdy [facility] 2022-02-08 2022-02-08 Orders Arnol, 1.2.840.1 [id number] [facility] 00:00:00 00:00:00 Only Sofy Brizuela 22704.1.1 ity of 3.412.2.7 [place] .3.565927 MD Mccurdy [facility] 2022-02-08 2022-02-08 Orders Arnol, 1.2.840.1 [id number] Univers 00:00:00 00:00:00 Only Sofy Brizuela 11811.1.1 ity of 3.412.2.7 [place] .3.661144 MD Mccurdy [facility] 2022-02-07 2022-02-07 Ancillary EL Vailati 1.2.840.1 [id number] Univers 13:00:00 15:30:00 Procedure Negrao, 36369.1.1 it y of Dai 3.412.2.7 [place] .3.600643 MD Mccurdy [facility] 2022-02-07 2022-02-07 Ancillary Vailati 1.2.840.1 [id number] [id number] Univers 13:00:00 15:30:00 Procedure Negrao, 36089.1.1 it y of Dai 3.412.2.7 [place] .3.267456 MD Mccurdy [facility] 2022-02-07 2022-02-07 Travel 1.2.840.1 1.2.121.796 4628 [id number] Univers 00:00:00 00:00:00 47932.1.1 350.1.13.41 ity of 3.412.2.7 2.2.7.3.698 [place] .3.794902 084.8 MD Mccurdy [facility] 2022-02-07 2022-02-07 Orders Leroy, 1.2.840.1 [id number] Univers 00:00:00 00:00:00 Only Muriel 54644.1.1 ity of 3.412.2.7 [place] .3.648284 MD Mccurdy [facility] 2022-02-07 2022-02-07 Travel 1.2.840.1 1.2.865.007 6935 [id number] Univers 00:00:00 00:00:00 32936.1.1 350.1.13.41 ity of 3.412.2.7 2.2.7.3.698 [place] .3.422504 084.8 MD Mccurdy [facility] 2022-02-07 2022-02-07 Orders Leroy, 1.2.840.1 [id number] Univers 00:00:00 00:00:00 Only Muriel 87582.1.1 ity of 3.412.2.7 [place] .3.571197 MD Mccurdy [facility] 2022-02-04 2022-02-04 Ancillary [place] 1.2.840.1 [id number] [id number] Univers 09:15:00 11:00:00 Procedure Negrao, 67222.1.1 it y of Dai 3.412.2.7 [place] .3.130022 MD Mccurdy [facility] 2022-02-04 2022-02-04 Ancillary Vailati 1.2.840.1 [id number] 1096 [id number] Univers 09:15:00 11:00:00 Procedure Negrao, 41449.1.1 it y of Dai 3.412.2.7 [place] .3.188341 MD Mccurdy [facility] 2022-02-04 2022-02-04 Travel 1.2.840.1 1.2.209.295 6675 [id number] Univers 00:00:00 00:00:00 30545.1.1 350.1.13.41 ity of 3.412.2.7 2.2.7.3.698 [place] .3.204174 084.8 MD Mccurdy [facility] 2022-02-04 2022-02-04 Travel 1.2.840.1 1.2.900.430 2339 [id number] Univers 00:00:00 00:00:00 47484.1.1 350.1.13.41 ity of 3.412.2.7 2.2.7.3.698 [place] .3.144806 084.8 MD Mccurdy [facility] 2022-02-03 2022-02-03 Hospital [place] 1.2.840.1 [id number] Univers 13:00:00 23:59:00 Encounter Negrao, 32855.1.1 it y of Dai 3.412.2.7 [place] .3.938051 MD Lott8 [facility] 2022-02-03 2022-02-03 [facility] 1.2.840.1 [id number] Univers 13:00:00 23:59:00 Encounter Negrao, 54336.1.1 it y of Dai 3.412.2.7 [place] .3.058822 .[address] [facility] 2022-02-03 2022-02-03 [facility] 1.2.840.1 [id number] Univers 12:29:29 12:59:00 Encounter Negrao, 36947.1.1 it y of Dai 3.412.2.7 [place] .3.711479 MD Lott8 [facility] 2022-02-03 2022-02-03 [facility] 1.2.840.1 [id number] Univers 12:29:29 12:59:00 Encounter Negrao, 85714.1.1 it y of Dai 3.412.2.7 [place] .3.925210 MD Lott8 [facility] 2022-02-03 2022-02-03 [facility] 1.2.840.1 [id number] Univers 12:00:16 12:28:00 Encounter Negrao, 07474.1.1 it y of Dai 3.412.2.7 [place] .3.837125 MD Lott8 [facility] [place] 2022-02-03 2022-02-03 [facility] 1.2.840.1 [id number] Univers 12:00:16 12:28:00 Encounter Negrao, 27458.1.1 it y of Dia 3.412.2.7 [place] .3.106130 MD Lott8 [facility] 2022-02-03 2022-02-03 Piedad Lopez, 1.2.840.1 [id number] Univers 00:00:00 00:00:00 Only Franky 75154.1.1 ity of 3.412.2.7 [place] .3.136804 MD Mccurdy [facility] 2022-02-03 2022-02-03 Orders Rad, 1.2.840.1 [id number] Univers 00:00:00 00:00:00 Only Muriel 16814.1.1 ity of 3.412.2.7 [place] .3.635871 MD Mccurdy [facility] 2022-02-03 2022-02-03 Orders John, 1.2.840.1 [id number] Univers 00:00:00 00:00:00 Only Franky 59471.1.1 ity of 3.412.2.7 [place] .3.980017 MD Mccurdy [facility] 2022-02-03 2022-02-03 Travel 1.2.840.1 1.2.805.641 4751 [id number] Univers 00:00:00 00:00:00 55511.1.1 350.1.13.41 ity of 3.412.2.7 2.2.7.3.698 [place] .3.553991 084.8 MD Mccurdy [facility] 2022-02-03 2022-02-03 Orders John, 1.2.840.1 [id number] Univers 00:00:00 00:00:00 Only Franky 15983.1.1 ity of 3.412.2.7 [place] .3.956031 MD Mccurdy [facility] 2022-02-03 2022-02-03 Orders Rad, 1.2.840.1 [id number] Univers 00:00:00 00:00:00 Only Muriel 95258.1.1 ity of 3.412.2.7 [place] .3.379572 MD Mccurdy [facility] 2022-02-03 2022-02-03 Orders John, 1.2.840.1 [id number] Univers 00:00:00 00:00:00 Only Franky 83433.1.1 ity of 3.412.2.7 [place] .3.652727 MD Lott8 [facility] 2022-02-03 2022-02-03 Travel 1.2.840.1 1.2.512.448 0980 [id number] Univers 00:00:00 00:00:00 54390.1.1 350.1.13.41 ity of 3.412.2.7 2.2.7.3.698 [place] .3.504387 084.8 MD Lott8 [facility] 2022-02-02 2022-02-02 Outpatient KINDRA FRANCO [facility] [id number] 14:28:00 14:28:00 Darryl PHILIP 2022-02-01 2022-02-01 Orders Oedwino, 1.2.840.1 [id number] Univers 00:00:00 00:00:00 Only Franky 89251.1.1 ity of 3.412.2.7 [place] .3.836685 MD Mccurdy [facility] 2022-02-01 2022-02-01 Orders Oedwino, 1.2.840.1 [id number] Univers 00:00:00 00:00:00 Only Franky 81378.1.1 ity of 3.412.2.7 [place] .3.436918 MD Lott[address] [facility] 2022-02-01 2022-02-01 Orders Oyewuwo, 1.2.840.1 [id number] Univers 00:00:00 00:00:00 Only Franky 30292.1.1 ity of 3.412.2.7 [place] .3.694063 MD Mccurdy [facility] 2022-02-01 2022-02-01 Orders Oyewkrisho, 1.2.840.1 [id number] Univers 00:00:00 00:00:00 Only Franky 05192.1.1 ity of 3.412.2.7 [place] .3.831432 MD Lott[address] [facility] 2022-01-31 2022-01-31 Orders Lugo, 1.2.840.1 [id number] Univers 00:00:00 00:00:00 Only Christopher 28087.1.1 ity of Van 3.412.2.7 [place] .3.749949 MD Lott[address] [facility] 2022-01-31 2022-01-31 Orders Oyewuwo, 1.2.840.1 [id number] Univers 00:00:00 00:00:00 Only Franky 01076.1.1 ity of 3.412.2.7 [place] .3.290550 MD Lott8 [facility] 2022-01-31 2022-01-31 Orders Arnol, 1.2.840.1 [id number] Univers 00:00:00 00:00:00 Only Sofy E 81903.1.1 ity of 3.412.2.7 [place] .3.787723 MD Lott8 [facility] 2022-01-31 2022-01-31 Orders Lugo, 1.2.840.1 [id number] Univers 00:00:00 00:00:00 Only Christopher 99609.1.1 ity of Van 3.412.2.7 [place] .3.656159 MD oLtt8 [facility] 2022-01-31 2022-01-31 Orders Oyewuwo, 1.2.840.1 [id number] Univers 00:00:00 00:00:00 Only Franky 81082.1.1 ity of 3.412.2.7 [place] .3.732557 MD Lott[address] [facility] 2022-01-31 2022-01-31 Orders Arnol, 1.2.840.1 [id number] Univers 00:00:00 00:00:00 Only Sfoy E 36590.1.1 ity of 3.412.2.7 [place] .3.084809 MD Lott8 [facility] 2022-01-26 2022-01-26 Orders Serrao, 1.2.840.1 [id number] Univers 00:00:00 00:00:00 Only Sarmadella 02819.1.1 it y of 3.412.2.7 [place] .3.491470 MD Lott[address] [facility] 2022-01-26 2022-01-26 Orders Serrao, 1.2.840.1 [id number] Univers 00:00:00 00:00:00 Only Suemetryella 53988.1.1 it y of 3.412.2.7 [place] .3.845010 MD Lott8 [facility] 2022-01-24 2022-01-24 Office [place] 1.2.840.1 [id number] Univers 10:20:00 12:33:32 Visit Xander 32391.1.1 ity of Dai 3.412.2.7 [place] .3.484969 MD Lott8 [facility] 2022-01-24 2022-01-24 Office Valise 1.2.840.1 [id number] Univers 10:20:00 12:33:32 Visit Xander 11265.1.1 ity of Dai 3.412.2.7 [place] .3.013252 MD Lott8 [facility] 2022-01-24 2022-01-24 Orders Brenden, 1.2.840.1 [id number] Univers 00:00:00 00:00:00 Only Sana Noe 55204.1.1 ity of 3.412.2.7 [place] .3.046231 MD Lott8 [facility] 2022-01-24 2022-01-24 Travel 1.2.840.1 1.2.432.793 [id number] [id number] Univers 00:00:00 00:00:00 77951.1.1 350.1.13.41 ity of 3.412.2.7 2.[place]7.3.698 [place] .3.795314 084.8 MD Mccurdy [facility] 2022-01-24 2022-01-24 Orders Caranto, 1.2.840.1 [id number] Univers 00:00:00 00:00:00 Only Sana Liu 74068.1.1 ity of 3.412.2.7 [place] .3.467930 MD Lott8 [facility] 2022-01-24 2022-01-24 Travel 1.2.840.1 1.2.993.263 [id number] [id number] Univers 00:00:00 00:00:00 28094.1.1 350.1.13.41 ity of 3.412.2.7 2.[place]7.3.698 [place] .3.410658 084.8 MD Mccurdy [facility] [facility] 2022-01-22 2022-01-22 Orders Vailati 1.2.840.1 [id number] Univers 00:00:00 00:00:00 Only Xander, 23885.1.1 ity of Dai 3.412.2.7 [place] .3.452986 MD Lott[address] [facility] 2022-01-22 2022-01-22 Orders Vailati 1.2.840.1 [id number] Univers 00:00:00 00:00:00 Only Xander, 53394.1.1 ity of Dai 3.412.2.7 [place] .3.471849 MD Lott8 [facility] 2022-01-19 2022-01-19 Orders Arnol, 1.2.840.1 [id number] Univers 00:00:00 00:00:00 Only Sofy Brizuela 70290.1.1 ity of 3.412.2.7 [place] .3.949204 MD Mccurdy [facility] 2022-01-19 2022-01-19 Orders Arnol, 1.2.840.1 [id number] Univers 00:00:00 00:00:00 Only Sofy Brizuela 67371.1.1 ity of 3.412.2.7 [place] .3.793464 MD Lott8 [facility] 2022-01-18 2022-01-18 Outpatient [facility] MDA MDA [id number] 19:05:08 19:05:08 Darryl PHILIP 2022-01-13 2022-01-13 Telephone Nubia, 1.2.840.1 [id number] Univers 00:00:00 00:00:00 Dany Newberry 57996.1.1 ity of 3.412.2.7 [place] .3.816791 MD Lott8 [facility] 2022-01-13 2022-01-13 Telephone Nubia, 1.2.840.1 [id number] Univers 00:00:00 00:00:00 Dany Newberry 38807.1.1 ity of 3.412.2.7 [place] .3.105815 MD Lott8 [facility] 2022-01-11 2022-01-11 Outpatient [facility] MDA [id number] 18:08:28 18:08:28 Darryl PHILIP 2022-01-09 2022-01-09 Telemedici Vailati 1.2.840.1 [id number] Univers 11:20:00 11:40:00 leidy Philip 07254.1.1 ity of Dai 3.412.2.7 [place] .3.224284 MD Lott8 [facility] 2022-01-09 2022-01-09 Telemedici Vailati 1.2.840.1 [id number] Univers 11:20:00 11:40:00 leidy Philip 53421.1.1 ity of Dai 3.412.2.7 [place] .3.018312 MD Lott8 [facility] 2022-01-09 2022-01-09 Piedad Ahumada 1.2.840.1 [id number] Univers 00:00:00 00:00:00 Only Susie 67896.1.1 ity of 3.412.2.7 [place] .3.881198 MD Lott8 [facility] 2022-01-09 2022-01-09 Piedad Ahumada, 1.2.840.1 [id number] Univers 00:00:00 00:00:00 Only Susie 49238.1.1 ity of 3.412.2.7 [place] .3.212788 MD Lott8 [facility] 2022-01-05 2022-01-05 Outpatient KINDRA TONY, [facility] [id number] MD 10:31:22 10:31:22 ISMAEL Hawkinsmary wiseman 2022-01-05 2022-01-05 Telephone Arnol, 1.2.840.1 [id number] 1095 [id number] Univers 00:00:00 00:00:00 Sofy E 33226.1.1 ity of 3.412.2.7 [place] .3.585577 MD Lott8 [facility] 2022-01-05 2022-01-05 Telephone Arnol, 1.2.840.1 [id number] 1095 [id number] Univers 00:00:00 00:00:00 Sofy E 98473.1.1 ity of 3.412.2.7 [place] .3.842450 MD Lott8 [facility] 2022-01-04 2022-01-04 Ancillary EL Arnol, 1.2.840.1 [id number] 1095 [id number] Univers 14:20:00 15:45:00 Procedure Sofy E 79916.1.1 ity of 3.412.2.7 [place] .3.069292 MD Lott8 [facility] 2022-01-04 2022-01-04 Ancillary Arnol, 1.2.840.1 [id number] 1095 [id number] Univers 14:20:00 15:45:00 Procedure Sofy E 85910.1.1 ity of 3.412.2.7 [place] .3.847031 MD Mccurdy [facility] 2022-01-04 2022-01-04 Travel 1.2.840.1 1.2.278.840 0059 [id number] Univers 00:00:00 00:00:00 28386.1.1 350.1.13.41 ity of 3.412.2.7 2.[place].7.3.698 [place] .3.832898 084.8 MD Mccurdy [facility] 2022-01-04 2022-01-04 Travel 1.2.840.1 1.2.114.076 7104 [id number] Univers 00:00:00 00:00:00 79249.1.1 350.1.13.41 ity of 3.412.2.7 2.2.7.3.698 [place] .3.6732[place] 084.Kimberlee Mccurdy [facility] 2022-01-03 2022-01-03 [facility].840 .1 [id number] Univers 10:20:00 23:59:00 Encounter Sofy Almendarez 32616.1.1 ity of 3.412.2.7 [place] .3.164131 MD Mccurdy [facility] 2022-01-03 2022-01-03 [facility] 1.2.840 .1 [id number] Univers 10:20:00 23:59:00 Encounter Sofy Almendarez 04775.1.1 ity of 3.412.2.7 [place] .3.810537 MD Mccurdy [facility] 2022-01-03 2022-01-03 Ancillary EL Arnol, 1.2.840.1 [id number] 1094 [id number] Univers 09:15:00 11:00:00 Procedure Sofy Brizuela 23685.1.1 ity of 3.412.2.7 [place] .3.236839 MD Mccurdy [facility] 2022-01-03 2022-01-03 Ancillary Arnol, 1.2.840.1 [id number] 1094 [id number] Univers 09:15:00 11:00:00 Procedure Sofy Brizuela 02156.1.1 ity of 3.412.2.7 [place] .3.297272 MD Mccurdy [facility] 2022-01-03 2022-01-03 Orders Sukh-Anderson 1.2.840.1 [id number] Univers 00:00:00 00:00:00 Only Holley marroquin 89270.1.1 ity of 3.412.2.7 [place] .3.328108 MD Lott8 [facility] 2022-01-03 2022-01-03 Orders Arnol, 1.2.840.1 [id number] 6348 Univers 00:00:00 00:00:00 Only Sofy Brizuela 84774.1.1 ity of 3.412.2.7 [place] .3.652652 MD Lott8 [facility] 2022-01-03 2022-01-03 Travel 1.2.840.1 1.2.358.505 9094 [id number] Univers 00:00:00 00:00:00 26004.1.1 350.1.13.41 ity of 3.412.2.7 2.2.7.3.698 [place] .3.498258 084.8 MD Lott8 [facility] 2022-01-03 2022-01-03 Orders Sukh-Anderson 1.2.840.1 [id number] Univers 00:00:00 00:00:00 Only Holley marroquin 52854.1.1 ity of 3.412.2.7 [place] .3.719902 MD Lott8 [facility] 2022-01-03 2022-01-03 Orders Arnol, 1.2.840.1 [id number] Univers 00:00:00 00:00:00 Only Sofy Brizuela 84691.1.1 ity of 3.412.2.7 [place] .3.835308 MD Lott8 [facility] 2022-01-03 2022-01-03 Travel 1.2.840.1 1.2.835.146 2350 [id number] Univers 00:00:00 00:00:00 11279.1.1 350.1.13.41 ity of 3.412.2.7 2.[place]7.3.698 [place] .3.041613 084.8 .8 [facility] 2021-12-28 2021-12-28 Outpatient KINDRA JOSEMANUEL [facility] [id number] 19:32:18 19:32:18 JOSE brown n 2021-12-27 2021-12-27 Hospital EL Arnol, 1.2.840.1 [id number] Univers 12:12:06 23:59:00 Encounter Sofy Brizuela 94696.1.1 ity of 3.412.2.7 [place] .3.189434 .8 [facility] 2021-12-27 2021-12-27 [facility] Arnol, 1.2.840.1 [id number] [id number] Univers 12:12:06 23:59:00 Encounter Sofy Brizuela 91246.1.1 ity of 3.412.2.7 [place] .3.929040 MD Lott8 [facility] 2021-12-27 2021-12-27 Consult [place] 1.2.840.1 [id number] 8490 Univers 10:40:00 11:51:41 Negjan, 97837.1.1 ity of Dai 3.412.2.7 [place] .3.962078 MD Lott8 [facility] 2021-12-27 2021-12-27 Consult [place] 1.2.840.1 [id number] 3575 Univers 10:40:00 11:51:41 Xander, 23564.1.1 ity of Dai 3.412.2.7 [place] .3.356774 MD Lott8 [facility] 2021-12-27 2021-12-27 Consult KINDRA Hernadez, 1.2.840.1 [id number] 3520 Univers 10:00:00 11:19:12 Jim 39916.1.1 ity of 3.412.2.7 [place] .3.645836 MD Lott8 [facility] 2021-12-27 2021-12-27 Consult Satya 1.2.840.1 [id number] Univers 10:00:00 11:19:12 Jim 96166.1.1 ity of 3.412.2.7 [place] .3.485952 MD Mccurdy [facility] 2021-12-27 2021-12-27 Piedad Sukh-Anderson 1.2.840.1 [id number] 10 [id number] Univers 00:00:00 00:00:00 Only lopez Holley 58841.1.1 ity of 3.412.2.7 [place] .3.921502 MD Mccurdy [facility] 2021-12-27 2021-12-27 Travel 1.2.840.1 1.2.680.450 4803 031059 Univers 00:00:00 00:00:00 34796.1.1 350.1.13.41 ity of 3.412.2.7 2.2.7.3.698 [place] .3.276605 08Nikunj.Kimberlee Mccurdy [facility] 2021-12-27 2021-12-27 Piedad Pearce 1.2.840.1 [id number] 10 [id number] Univers 00:00:00 00:00:00 Only lopez Holley 20320.1.1 ity of 3.412.2.7 [place] .3.640707 MD Mccurdy [facility] 2021-12-27 2021-12-27 Travel 1.2.840.1 1.2.805.586 6241 [id number] Univers 00:00:00 00:00:00 02910.1.1 350.1.13.41 ity of 3.412.2.7 2.2.7.3.698 [place] .3.216923 084.8 MD Mccurdy [facility] 2021-12-23 2021-12-23 Brant Penaloza, 1.2.840.1 [id number] Univers 00:00:00 00:00:00 Pedro Garcia 96674.1.1 it y of 3.412.2.7 [place] .3.681309 MD .[address] [facility] 2021-12-23 2021-12-23 Telephone Ca, 1.2.840.1 [id number] 005 [id number] Univers 00:00:00 00:00:00 Pedro Garcia 20905.1.1 it y of 3.412.2.7 [place] .3.718791 MD Lott8 [facility] 2021-12-21 2021-12-21 Outpatient KINDRA ABERNATHY [facility] [id number] 17:49:34 17:49:34 JOSE wiseman 2021-12-21 2021-12-21 Hospital EL Nakul, 1.2.840.1 [id number] [id number] Univers 10:29:00 14:27:00 Encounter Kaylie 82150.1.1 it y of 3.412.2.7 [place] .3.384266 MD Mccurdy [facility] 2021-12-21 2021-12-21 Hospital Nakul, 1.2.840.1 [id number] Univers 10:29:00 14:27:00 Encounter Kaylie 48931.1.1 it y of 3.412.2.7 [place] .3.930353 MD Mccurdy [facility] 2021-12-21 2021-12-21 Anesthesia Magdaleno, 1.2.840.1 [id number] Univers 12:21:00 13:31:00 Event Crystal 21391.1.1 ity of 3.412.2.7 [place] .3.480867 MD Mccurdy [facility] 2021-12-21 2021-12-21 Anesthesia Magdaleno, 1.2.840.1 [id number] 068 [id number] Univers 12:21:00 13:31:00 Event Crystal 50804.1.1 ity of 3.412.2.7 [place] .3.022689 MD Mccurdy [facility] 2021-12-21 2021-12-21 Surgery Nakul, 1.2.840.1 [id number] 2075 Univers 12:00:00 13:30:00 Kaylie 71759.1.1 ity of 3.412.2.7 [place] .3.722372 MD Lott8 [facility] 2021-12-21 2021-12-21 Surgery Nakul, 1.2.840.1 [id number] Univers 12:00:00 13:30:00 Kaylie 43306.1.1 ity of 3.412.2.7 [place] .3.977538 MD Lott8 [facility] 2021-12-21 2021-12-21 [facility], 1.2.840.1 [id number] 35291 Univers 00:00:00 00:00:00 Only Pedro Isam 59304.1.1 it y of 3.412.2.7 [place] .3.932021 MD Mccurdy [facility] 2021-12-21 2021-12-21 Travel 1.2.840.1 1.2.249.526 1859 [id number] Univers 00:00:00 00:00:00 24886.1.1 350.1.13.41 ity of 3.412.2.7 2.2.7.3.698 [place] .3.680848 084.8 MD Mccurdy [facility] 2021-12-21 2021-12-21 [facility] [id number] 03573 Univers 00:00:00 00:00:00 Only Pedro Isam 03787.1.1 it y of 3.412.2.7 [place] .3.656012 MD Mccurdy [facility] 2021-12-21 2021-12-21 Travel 1.2.840.1 1.2.993.495 3878 [id number] Univers 00:00:00 00:00:00 92192.1.1 350.1.13.41 ity of 3.412.2.7 2.2.7.3.698 [place] .3.607678 084.8 MD Mccurdy [facility] 2021-12-20 2021-12-20 Milka Mcbride, 1.2.840.1 [id number] Univers 23:59:59 23:59:59 Event Jennie Noe 45189.1.1 ity of 3.412.2.7 [place] .3.656953 MD Lott8 [facility] 2021-12-20 2021-12-20 Anesthesia Reed, 1.2.840.1 [id number] [id number] [facility] 23:59:59 23:59:59 Event Jennie Liu 71713.1.1 ity of 3.412.2.7 [place] .3.686027 MD Lott8 [facility] 2021-12-20 2021-12-20 Consult KINDRA Mota, 1.2.840.1 [id number] Univers 15:00:00 15:27:35 Kaylie 97957.1.1 ity of 3.412.2.7 [place] .3.187560 MD Lott8 [facility] 2021-12-20 2021-12-20 Consult Nakul, 1.2.840.1 [id number] Univers 15:00:00 15:27:35 Kaylie 24468.1.1 ity of 3.412.2.7 [place] .3.303693 MD Lott8 [facility] 2021-12-20 2021-12-20 Clinical Tammy Asher 1.2.840.1 [id number] Univers 14:15:00 14:15:00 Support Yu Hawk 12733.1.1 ity of 3.412.2.7 [place] .3.488315 MD Lott8 [facility] 2021-12-20 2021-12-20 Tammy Tavera 1.2.840.1 [id number] Univers 14:15:00 14:15:00 Support Yu Hawk 89840.1.1 ity of 3.412.2.7 [place] .3.051601 MD Lott8 [facility] 2021-12-20 2021-12-20 POJUNAA Abernathy, 1.2.840.1 [id number] Univers 09:30:00 10:00:00 Appointmen Jose Fay 06903.1.1 ity of ts 3.412.2.7 [place] .3.313987 MD Lott8 [facility] 2021-12-20 2021-12-20 HAZEL Abernathy, 1.2.840.1 [id number] 3639 Univers 09:30:00 10:00:00 Appointmen Jose Fay 66137.1.1 ity of ts 3.412.2.7 [place] .3.705561 MD Lott8 [facility] 2021-12-20 2021-12-20 Outpatient RADIOLOGY, MORE FLOWERS [id number] More 00:00:00 00:00:00 DEPT Hermann pollard 2021-12-20 2021-12-20 Travel 1.2.840.1 1.2.326.620 2873 [id number] Univers 00:00:00 00:00:00 31608.1.1 350.1.13.41 ity of 3.412.2.7 2.2.7.3.698 [place] .3.877208 084.8 MD Lott8 [facility] 2021-12-20 2021-12-20 Travel 1.2.840.1 1.2.652.652 2039 [id number] Univers 00:00:00 00:00:00 88544.1.1 350.1.13.41 ity of 3.412.2.7 2.2.7.3.698 [place] .3.429797 084.8 MD Mccurdy [facility] 2021-12-14 2021-12-14 Outpatient KINDRA ABERNATHY MDA MDA [id number] 17:26:51 17:26:51 JOSE wiseman 2021-12-14 2021-12-14 Outpatient KINDRA ABERNATHY MDA MDA [id number] 17:26:44 17:26:44 JOSE wiseman 2021-12-12 2021-12-12 Brant Abernathy, 1.2.840.1 [id number] [id number] Univers 00:00:00 00:00:00 Jose Fay 21544.1.1 ity of 3.412.2.7 [place] .3.539459 MD Mccurdy [facility] 2021-12-12 2021-12-12 Telephone Ostrin, 1.2.840.1 [id number] 1094 [id number] Univers 00:00:00 00:00:00 Jose Fay 34916.1.1 ity of 3.412.2.7 [place] .3.326497 MD Mccurdy [facility] 2021-12-09 2021-12-09 Ancillary EL Ostrin, 1.2.840.1 [id number] 1094 [id number] Univers 11:30:00 11:45:00 Procedure Jose Fay 09369.1.1 i ty of 3.412.2.7 [place] .3.936134 MD Mccurdy [facility] 2021-12-09 2021-12-09 Ancillary Ostmervat, 1.2.840.1 [id number] 1094 [id number] Univers 11:30:00 11:45:00 Procedure Jose Fay 65047.1.1 i ty of 3.412.2.7 [place] .3.490339 MD Mccurdy [facility] 2021-12-09 2021-12-09 Documentat Shyanne Muñiz 1.2.840.1 [id number] Univers 00:00:00 00:00:00 ion 50702.1.1 ity of 3.412.2.7 [place] .3.245369 MD Mccurdy [facility] 2021-12-09 2021-12-09 Prep for Jessica, 1.2.840.1 [id number] 10 [id number] Univers 00:00:00 00:00:00 Surgery Tammy 41398.1.1 ity of 3.412.2.7 [place] .3.445991 MD Mccurdy [facility] 2021-12-09 2021-12-09 Travel 1.2.840.1 1.2.811.933 8327 [id number] Univers 00:00:00 00:00:00 61420.1.1 350.1.13.41 ity of 3.412.2.7 2.2.7.3.698 [place] .3.383533 084.8 MD Lott8 [facility] 2021-12-09 2021-12-09 Documentat Shyanne Muñiz 1.2.840.1 [id number] Univers 00:00:00 00:00:00 ion 98513.1.1 ity of 3.412.2.7 [place] .3.673014 MD Lott8 [facility] 2021-12-09 2021-12-09 Prep for Jessica, 1.2.840.1 [id number] Univers 00:00:00 00:00:00 Surgery Tammy 68166.1.1 ity of 3.412.2.7 [place] .3.223112 MD Mccurdy [facility] 2021-12-09 2021-12-09 [facility] 1.2.840.1 1.2.177.804 6449 [id number] Univers 00:00:00 00:00:00 80967.1.1 350.1.13.41 ity of 3.412.2.7 2.2.7.3.698 [place] .3.038425 084.8 MD Mccurdy [facility] 2021-12-08 2021-12-08 Telephone Ostmervat, 1.2.840.1 [id number] 1094 [id number] Univers 00:00:00 00:00:00 Jose Fay 06165.1.1 ity of 3.412.2.7 [place] .3.076057 MD Mccurdy [facility] 2021-12-08 2021-12-08 Telephone Ostmervat, 1.2.840.1 [id number] 1094 [id number] Univers 00:00:00 00:00:00 Jose Fay 12042.1.1 ity of 3.412.2.7 [place] .3.997719 MD Mccurdy [facility] 2021-12-02 2021-12-02 [facility] 1.2.840.1 [id number] 83480 60329 Univers 11:51:30 23:59:00 Encounter 09456.1.1 it y of 3.412.2.7 [place] .3.485127 MD Mccurdy [facility] 2021-12-02 2021-12-02 [facility] 1.2.840.1 [id number] Univers 11:51:30 23:59:00 Encounter 96266.1.1 it y of 3.412.2.7 [place] .3.778769 MD Lott8 [facility] 2021-12-02 2021-12-02 [facility] 1.2.840.1 [id number] Univers 11:40:16 11:50:00 Encounter 55145.1.1 it y of 3.412.2.7 [place] .3.994783 MD Lott8 [facility] 2021-12-02 2021-12-02 [facility] 1.2.840.1 [id number] Univers 11:40:16 11:50:00 Encounter 66102.1.1 it y of 3.412.2.7 [place] .3.758366 [address] 2021-12-02 2021-12-02 [facility] Jose Abernathy 1.2.840.1 [id number] Univers 09:36:02 11:39:00 Encounter Jason De Jesus 97720.1.1 ity of 3.412.2.7 [place] .3.355519 MD Mccurdy [facility] 2021-12-02 2021-12-02 [facility] Jose Abernathy 1.2.840.1 [id number] Univers 09:36:02 11:39:00 Encounter Jason De Jesus 83717.1.1 ity of 3.412.2.7 [place] .3.110792 MD Mccurdy [facility] 2021-12-02 2021-12-02 [facility] 1.2.840.1 1.2.739.975 3483 [id number] Univers 00:00:00 00:00:00 31942.1.1 350.1.13.41 ity of 3.412.2.7 2.2.7.3.698 [place] .3.872772 084.8 MD Mccurdy [facility] 2021-12-02 2021-12-02 Travel 1.2.840.1 1.2.411.865 4810 [id number] Univers 00:00:00 00:00:00 98171.1.1 350.1.13.41 ity of 3.412.2.7 2.2.7.3.698 [place] .3.538983 084.[address] .[address] [facility] 2021-12-01 2021-12-01 [facility] 1.2.840.1 [id number] [id number] Univers 11:56:09 23:59:00 Encounter Jose Fay 32903.1.1 i ty of 3.412.2.7 [place] .3.427230 MD Mccurdy [facility] 2021-12-01 2021-12-01 [facility] 1.2.840.1 [id number] [id number] Univers 11:56:09 23:59:00 Encounter Jose Fay 32324.1.1 i ty of 3.412.2.7 [place] .3.865907 MD Lott8 [facility] 2021-12-01 2021-12-01 [facility], 1.2.840.1 [id number] Univers 11:55:37 11:55:37 Encounter Jose Fay 63990.1.1 i ty of 3.412.2.7 [place] .3Kaylie040789 MD Lott8 [facility] 2021-12-01 2021-12-01 [facility] 1.2.840.1 [id number] Univers 11:55:37 11:55:37 Encounter Jose Fay 82832.1.1 i ty of 3.412.2.7 [place] .3Kaylie522143 MD Mccurdy [facility] 2021-12-01 2021-12-01 [facility] [id number] Univers 09:28:22 11:54:00 Encounter Ella Adame 06096.1.1 ity of 3.412.2.7 [place] .3Kaylie291945 MD Mccurdy [facility] 2021-12-01 2021-12-01 [facility] Josemanuel Jose 1.2.840.1 [id number] Univers 09:28:22 11:54:00 Encounter Ella Adame 39378.1.1 ity of 3.412.2.7 [place] .3.537996 MD Lott8 [facility] 2021-12-01 2021-12-01 Clinical Ella Adame 1.2.840.1 [id number] Univers 11:00:00 11:06:04 Support Sandy Chowdhury 90337.1.1 ity of 3.412.2.7 [place] .3.436628 MD Lott8 [facility] 2021-12-01 2021-12-01 Clinical Ella Adame 1.2.840.1 [id number] Univers 11:00:00 11:06:04 Support Sandy Chowdhury 22383.1.1 ity of 3.412.2.7 [place] .3.820836 MD Mccurdy [facility] 2021-12-01 2021-12-01 Outpatient MORE AHUMADA [id number] More 00:00:00 00:00:00 CLAY pollard 2021-12-01 2021-12-01 Piedad Ding 1.2.840.1 [id number] Univers 00:00:00 00:00:00 Only Olimpia Ferris 26660.1.1 ity of 3.412.2.7 [place] .3.244215 MD Mccurdy [facility] 2021-12-01 2021-12-01 Travel 1.2.840.1 1.2.286.194 [id number] Univers 00:00:00 00:00:00 93489.1.1 350.1.13.41 ity of 3.412.2.[place].698 [place] .3.549[place] 084.8 MD Lott8 [facility] 2021-12-01 2021-12-01 Orders Toña, 1.2.840.1 [id number] Univers 00:00:00 00:00:00 Only Olimpia Ferris 24850.1.1 ity of 3.412.2.7 [place] .3.915135 MD Lott8 [facility] 2021-12-01 2021-12-01 Travel 1.2.840.1 1.2.746.834 [id number] Univers 00:00:00 00:00:00 12452.1.1 350.1.13.41 ity of 3.412.2.7 [place].3.698 [place] .3.379962 084.8 MD Lott8 [facility] 2021-11-30 2021-11-30 Orders Wendi, 1.2.840.1 [id number] Univers 00:00:00 00:00:00 Only Ella 86452.1.1 ity of 3.412.2.7 [place] .3.301995 MD Lott8 [facility] 2021-11-30 2021-11-30 Orders Adame, 1.2.840.1 [id number] Univers 00:00:00 00:00:00 Only Ella 58799.1.1 ity of 3.412.2.7 [place] .3.341483 MD Mccurdy [facility] 2021-11-29 2021-11-29 [facility] Josemanuel, 1.2.840.1 [id number] Univers 17:42:45 23:59:00 Encounter Jose Fay 75862.1.1 i ty of 3.412.2.7 [place] .3.986143 MD Lott[address] [facility] 2021-11-29 2021-11-29 [facility] 1.2.840.1 [id number] Univers 17:42:45 23:59:00 Encounter Jose Fay 07315.1.1 i ty of 3.412.2.7 [place] .3.147191 MD Mccurdy [facility] 2021-11-29 2021-11-29 Ancillary Ostrin, 1.2.840.1 [id number] Univers 21:50:00 21:55:00 Procedure Jose Fay 30094.1.1 i ty of 3.412.2.7 [place] .3.170723 MD Mccurdy [facility] 2021-11-29 2021-11-29 Ancillary Ostrin, 1.2.840.1 [id number] Univers 21:50:00 21:55:00 Procedure Jose Fay 45819.1.1 i ty of 3.412.2.7 [place] .3.980737 MD Mccurdy [facility] 2021-11-29 2021-11-29 Office Ostrin, 1.2.840.1 [id number] Univers 15:00:00 17:34:37 Visit Jose Fay 05318.1.1 ity of 3.412.2.7 [place] .3.583168 MD Mccurdy [facility] 2021-11-29 2021-11-29 Office Ostrin, 1.2.840.1 [id number] Univers 15:00:00 17:34:37 Visit Jose Fay 61348.1.1 ity of 3.412.2.7 [place] .3.520070 MD Mccurdy [facility] 2021-11-29 2021-11-29 Travel 1.2.840.1 1.2.370.270 [id number] [id number] Univers 00:00:00 00:00:00 46481.1.1 350.1.13.41 ity of 3.412.2.7 2.[place]7.3.698 [place] .3.014777 084.8 MD Mccurdy [facility] 2021-11-29 2021-11-29 Travel 1.2.840.1 1.2.775.228 [id number] Univers 00:00:00 00:00:00 93331.1.1 350.1.13.41 ity of 3.412.2.7 2.[place]7.3.698 [place] .3.864115 084.8 MD Mccurdy [facility] 2021-11-28 2021-11-28 Outpatient MORE FLOWERS [id number] More 15:00:00 15:00:00 Seybol d 2021-11-28 2021-11-28 Outpatient MORE MORE [id number] More 14:00:00 14:00:00 Seybol d 2021-11-25 2021-11-25 NPR 1.2.840.1 [id number] Univers 14:30:00 14:30:00 26230.1.1 ity of 3.412.2.7 [place] .3.795121 MD Lott8 [facility] 2021-11-25 2021-11-25 NPR 1.2.840.1 [id number] Univers 14:30:00 14:30:00 39614.1.1 ity of 3.412.2.7 [place] .3.030795 MD Lott[facility] [facility] 2021-11-23 2021-11-23 Ancillary EL 1.2.840.1 [id number] Univers 02:10:00 02:15:00 Procedure 78908.1.1 it y of 3.412.2.7 [place] .3.898597 MD Lott[address] [facility] 2021-11-23 2021-11-23 Ancillary 1.2.840.1 [id number] Univers 02:10:00 02:15:00 Procedure 10101.1.1 it y of 3.412.2.7 [place] .3.104528 MD Lott8 [facility] 2021-11-23 2021-11-23 Ancillary EL 1.2.840.1 [id number] Univers 02:05:00 02:10:00 Procedure 13015.1.1 it y of 3.412.2.7 [place] .3.657148 MD Lott8 [facility] 2021-11-23 2021-11-23 Ancillary 1.2.840.1 [id number] Univers 02:05:00 02:10:00 Procedure 75474.1.1 it y of 3.412.2.7 [place] .3.295845 MD Mccrudy [facility] 2021-11-22 2021-11-22 Orders Shaista, 1.2.840.1 [id number] Univers 00:00:00 00:00:00 Only Latira 63778.1.1 ity of 3.412.2.7 [place] .3.245569 MD Mccurdy [facility] 2021-11-22 2021-11-22 Orders Shaista, 1.2.840.1 [id number] Univers 00:00:00 00:00:00 Only Latira 58342.1.1 ity of 3.412.2.7 [place] .3.008677 MD Mccurdy [facility] 2021-11-17 2021-11-17 Travel 1.2.840.1 1.2.896.828 [id number] Univers 00:00:00 00:00:00 07067.1.1 350.1.13.41 ity of 3.412.2.7 [place].7.3.698 [place] .3.0069[place] 084Calli Mccurdy [facility] 2021-11-17 2021-11-17 Brant Hanson 1.2.840.1 [id number] Univers 00:00:00 00:00:00 Celaysheia 03486.1.1 i ty of S 3.412.2.7 [place] .3.307036 MD Mccurdy [facility] 2021-11-17 2021-11-17 Travel 1.2.840.1 1.2.932.338 [id number] Univers 00:00:00 00:00:00 64963.1.1 350.1.13.41 ity of 3.412.2.7 2.[place]7.3.698 [place] .3.839629 084.8 MD Mccurdy [facility] 2021-11-17 2021-11-17 Brant Hanson 1.2.840.1 [id number] Univers 00:00:00 00:00:00 Tristen 13211.1.1 i [facility] S 3.412.2.7 [place] .3.896363 MD Lott8 [facility] 2021-11-16 2021-11-16 Outpatient MORE FLOWERS [id number] More 10:45:00 10:45:00 Seybol d 2021-11-16 2021-11-16 Outpatient LAB39 MORE FLOWERS [id number] More 10:15:00 10:15:00 Seybol d 2021-11-16 2021-11-16 Office WILDRE Holloway 1.2.840.114 [id number] More 09:30:00 10:00:[address] [facility] 350.1.13.13 Se ybold 1.2.7.2.686 [id number] 2021-11-16 2021-11-16 Outpatient MORE AHUMADA [id number] More 00:00:00 00:00:00 CLAY Seybol d 2021-10-28 2021-10-28 Outpatient MORE BAUMANN [id number] More 10:00:00 10:00:00 FATUMA Seybol d 2021-10-28 2021-10-28 Outpatient MORE FLOWERS [id number] More 09:00:00 09:00:00 Seybol d 2021-10-28 2021-10-28 Outpatient MORE BARAKAT [id number] More 00:00:00 00:00:00 LEODAN Seybol d 2021-10-17 2021-10-17 Outpatient MORE FLOWERS [id number] More 10:00:00 10:00:00 Seybol d 2021 2021 Office KEENA AHUMADA 1.2.840.114 [id number] More 10:30:00 10:30:00 Visit [facility] 350.1.13.13 Se ybold 1.2.7.2.686 [id number] 2021-09-27 2021-09-27 Outpatient MORE FLOWERS [id number] More 15:00:00 15:00:00 Seybol d 2021-09-19 2021-09-19 Outpatient MORE BARAKAT MORE [id number] More 00:00:00 00:00:00 LEODAN Seybol d 2021-09-14 2021-09-14 Outpatient LAB90 MORE MORE [id number] More 11:50:00 11:50:00 Seybol d 2021-09-14 2021-09-14 Office Odin BARAKAT 1.2.840.114 [id number] More 10:30:00 10:30:00 Visit LEODAN Vega 350.1.13.13 Se rosmery 1.2.7.2.686 [id number] 2021-07-13 2021-07-13 Outpatient MORE BARAKAT MORE [id number] More 11:00:00 11:00:00 LEODAN Seybol d 2021-07-12 2021-07-12 Outpatient CHELI, MORE FLOWERS [id number] More 00:00:00 00:00:00 SAMMIE Seybol d Results Test Description Test Time Test Comments Results Result Comments Source Free T4 2022-04-10 17:03:31 Test Item Value Reference Range Interpretation Comme nts T4 Free (test code = 3024-7) 1.04 ng/dL 0.93-1.70 [facility] 17:03:17 Test Item Value Reference Range Interpretation Comments TSH (test code = 1.96 See_Comment [Automated message] The 88318-9) system which ge nerated this result transmit mariah reference range : 0.27 - 4.20 mcunit/mL. The reference range was not used to interpr et this result as keiko l/abnormal. [facility] [id number] 14:24:54 Test Item Value Reference Range Interpretation Comments T4 Free (test code = 3024-7) 1.10 ng/dL 0.93-1.70 [facility] 14:24:50 Test Item Value Reference Range Interpretation Comments TSH (test code = 1.56 See_Comment [Automated message] The 44093-1) system which ge nerated this result transmit mariah reference range : 0.27 - 4.20 mcunit/mL. The reference range was not used to interpr et this result as keiko l/abnormal. [facility] HospitalFractionated Titesvjeo2878-25-21 14:23:40 Test Item Value Reference Range Interpretation Comments Bili Total (test 0.4 mg/dL See_Comment Indocyanine Green (ICG) code = 1974-) may cause fal sely elevated biliru bin results. Total and direct bilirubin must not be measured from s amples containing indo cyanine green. False el evation of total bilirubin can be seen in patient s with IgG concentrations above 28 g/L. [Automated message] The system [employer] generated this result transmitted ref erence range: [...] 0.0-0.9 Unable t o calculate code = 1970-06) Indirect Bili umanzor result due to some par ameters are outside rep ortable range [facility] HospitalGlomerular Filtration Rate 2022-02-27 14:23:38 Test Item Value Reference Range Interpretation Comments eGFR-AA (test code = 51 See_Comment L Normal eGFR: >= 60 95751-5) mL/min/1.73 m2N ote: The eGFR is mariya culated using the CKD-E PI equation. The e GFR declines with a ge. eGFR <60 mL/min /1.73 m2 is considere d as "decreased". Th is equation should only be used for pat ients 18 and older. According to th e [employer]'s Ki zacheryey Disease Outcome Quality Initiat joann (KDOQI) classif [...] failure <15 [Automated mess age] The system [employer] generated this result transmitted ref erence range: >=60 mL/min/1.73 sq. m. The reference range was not used to int erpret this result as normal/abnormal . eGFR-DANIEL (test code = 44 See_Comment L Normal eGFR: >= 60 88069-7) mL/min/1.73 m2N ote: The eGFR is mariya [...] failure <15 [Automated mess age] The system [employer] generated this result transmitted ref erence range: >=60 mL/min/1.73 sq. m. The reference range was not used to int erpret this result as normal/abnormal . Lab Interpretation Abnormal (test code = 51811-4) [facility] HospitalMagnesium [id number] 14:23:36 Test Item Value Reference Range Interpretation Comments Magnesium (test code = 21063-0) 2.4 mg/dL 1.6-2.6 [facility] HospitalTotal [id number] 14:23:35 Test Item Value Reference Range Interpretation Comments Total Protein (test code = 2885-2) 7.5 g/dL 6.4-8.3 [facility] HospitalAlkaline [id number] 14:23:34 Test Item Value Reference Range Interpretation Comments Alk Phos (test code = 6768-6) 91 U/L 35-104 [facility] HospitalPhosphorus Escdi3749-84-55 14:23:33 Test Item Value Reference Range Interpretation Comments Phosphorus (test code = 2777-1) 3.6 mg/dL 2.5-4.5 [facility] HospitalAlbumin Sgdvh9670-01-15 14:23:32 Test Item Value Reference Range Interpretation Comments Albumin Lvl (test code 4.6 See_Comment [Aut omated message] The = 8348) system which ge nerated this result tra nsmitted reference range : 3.5 - 5.2 gm/dL. The refe rence range was not used to interpret this result as normal/abnormal . [facility] HospitalCalcium Vynnt0987-03-74 14:23:31 Test Item Value Reference Range Interpretation Comments Calcium Lvl (test code = 48215-9) 10.9 mg/dL 8.4-10.2 H Lab Interpretation (test code = Abnormal 58066-4) [facility] HospitalAspartate Aminotransferase 2022-02-27 14:23:30 Test Item Value Reference Range Interpretation Comments AST (test code = 22 U/L See_Comment [Automated message] The 1920-01) system which ge nerated this result transmit mariah reference range : <=32. The reference range was not used to interpr et this result as keiko l/abnormal. [facility] HospitalALT2022-09-12 14:23:29 Test Item Value Reference Range Interpretation Comments ALT (test code = 13 U/L See_Comment [Automated message] The 1741-11) system which ge nerated this result transmit mariah reference range : <=33. The reference range was not used to interpr et this result as keiko l/abnormal. [facility] HospitalElectrolyte [id number] 14:23:28 Test Item Value Reference Range Interpretation Comments Sodium Lvl (test code = 140 See_Comment [Au tomated message] The 2950-07) system which ge nerated this result tra [...] this result as normal/abnormal . [facility] HospitalBUN2022-09-12 14:23:27 Test Item Value Reference Range Interpretation Comments BUN (test code = 3094-0) 22 mg/dL 6- [facility].Serum Nxfvgippmj9255-01-54 14:23:26 Test Item Value Reference Range Interpretation Comments Creatinine (test code = 2160-0) 1.19 mg/dL 0.51-0.95 H Lab Interpretation (test code = Abnormal 52912-8) [facility] HospitalGlucose [id number] 14:23:25 Test Item Value Reference Range Interpretation [...] diabetes Lab Interpretation (test Abnormal code = 20231-2) [facility] HospitalDifferential2022-09-12 13:46:29 Test Item Value Reference Range [...] % 0.0-0.4 H IGRE % c ount 11440-0) includes Metamyelocytes, Myelocytes, and Promyelocytes. Neutrophil Abs (test code 7.17 K/uL 1.70-7.30 = 751-8) Lymphocyte Abs (test code 1.52 K/uL 1.00-4.80 = 731-0) Monocyte Abs (test code = 0.67 K/uL 0.08-0.70 742-7) Eosinophil Abs (test code 0.20 K/uL 0.04-0.40 = 711-2) Basophil Abs (test code = 0.06 K/uL 0.00-0.10 704-7) IG Abs (test code = 0.05 K/uL 0.00-0.04 H 72941-9) Lab Interpretation (test Abnormal code = 17293-6) [facility].[id number] 13:46:23 Test Item Value Reference Range Interpretation Comments WBC (test code = 9.7 K/uL 4.0-11.0 6690-2) RBC (test code = 789-8) 4.28 See_Comment [Au tomated message] The system [employer] generated this result transmitted ref erence range: 4.00 - 5 .50 M/uL. The refer ence range was not u sed to interpret this result as normal/abnor mal. Hgb (test code = 718-7) 12.9 See_Comment [Au tomated message] The system [employer] generated this result transmitted ref erence range: 12.0 - 1 6.0 gm/dL. The refe rence range was not u sed to interpret this result as normal/abnor mal. Hct (test code = 40.7 % 37.0-47.0 4544-3) MCV (test code = 787-2) 95 fL 82-98 MCH (test code = 785-6) 30.1 pg 27.0-31.0 MCHC (test code = 31.7 See_Comment [Automate d message] 786-4) The system [employer] generated this result transmitted ref erence range: 31.0 - 3 6.0 gm/dL. The refe rence range was not u sed to interpret this result as normal/abnor mal. RDW-SD (test code = 49.7 fL 35.1-46.3 H 56408-9) RDW-CV (test code = 14.3 % 12.0-15.5 788-0) Platelet count (test 273 K/uL 140-440 code = 777-3) MPV (test code = 8.9 fL 4.0-10.4 19709-4) INRBC (test code = 0.0 % See_Comment The INRBC (instrument 55260-1) NRBC) value ref lects the enumeration of nucleated red b lood cells contained in a 200uL sampleof whole blood analyzed by the instrument. Thi s value maydiffer from the NRBC value repo rted in a manual differential,wh ich is based on a 100 cell differential. [Automated mess age] The system [employer] generated this result transmitted ref erence range: <=0.0. T he reference range was not used to int erpret this result as normal/abnormal . Lab Interpretation Abnormal (test code = 99938-3) [facility] [place] [facility] Cancer Apple SpringsCOVID-19 (SARS-CoV-2) PCR- Asymptomatic [id number] 07:32:38 Test Item Value Reference Range Interpretation Comments COVID19 (SARS Not Detected Not Detected CoV-2) Result (test code = ____[place] a 52082-2) qualitative reverse-transcr iptase polymerase heather n reaction [...] patients provid ed by the manufacture r ([employer]) c an be reviewed at:https://www. fda.go v/media/733478/ machelle ad. A fact shee t for Health Care pro viders is provided by the rn pool ([employer]) and can be reviewed at: https://www.fda .gov/m edia/324448/bart nload Results must be interpreted wit hin [...] were verified by the Microbiology Laboratory at [facility], CLIA Accreditation # : [id number] and CAP Accreditation # : [id number]. COVID19 SARS FILLER FEEDER Swab Source (test code = 15741) COVID19 SARS Pre-Out of OR Indication (test Procedure code = 70078) [facility] HospitalCOVID-19 (SARS-CoV-2) PCR- Asymptomatic [id number] 07:32:38 Test Item Value Reference Range Interpretation Comments COVID19 (SARS Not Detected Not Detected CoV-2) Result (test code = ____This test i s a 57351-1) qualitative reverse-transcr iptase polymerase heather n reaction [...] patients provid ed by the manufacture r ([employer]) c an be reviewed at:https://www. fda.go v/media/665839/ downlo ad. A fact shee t for Health Care pro viders is provided by the rn pool ([employer]) and can be reviewed at: https://www.fda .gov/m edia/783709/bart nload Results must be interpreted wit hin [...] were verified by the Microbiology Laboratory at [facility], CLIA Accreditation # : [id number] and CAP Accreditation # : [id number]. COVID19 SARS FILLER FEEDER Swab Source (test code = 05378) COVID19 SARS Pre-Out of OR Indication (test Procedure code = 03321) [facility] HospitalHepatitis C Virus Antibody 2022-02-03 20:00:50 Test [...] when interpreti ng the results. [facility] HospitalHepatitis C Virus Antibody 2022-02-03 20:00:50 Test [...] when interpreti ng the results. [facility] HospitalHepatitis B Surface [id number] 20:00:32 Test Item Value Reference Range Interpretation Comments HBsAg. (test code = 5747) Non Reactive Non Reactive [facility] HospitalHepatitis B Surface [id number] 20:00:32 Test Item Value Reference Range Interpretation Comments HBsAg. (test code = 5747) Non Reactive Non Reactive [facility] HospitalLDH2022-08-19 19:24:59 Test Item Value Reference Range Interpretation Comments LDH (test code = 190 U/L 135-214 Results gre ater than 1651 95470-1) U/L may not be reliable due to matrix effec t with extended diluti on as it exceeds the man ufacturer's recommended carty it. Caution should be exerc ised when interpreting chester ch values and done in con junction with clinical c ontext. [facility] HospitalLDH2022-08-19 19:24:59 Test Item Value Reference Range Interpretation Comments LDH (test code = 190 U/L 135-214 Results gre ater than 1651 84705-8) U/L may not be reliable due to matrix effec t with extended diluti on as it exceeds the man ufacturer's recommended carty it. Caution should be exerc ised when interpreting chester ch values and done in con junction with clinical c ontext. [facility] HospitalGGT2022-08-19 19:24:45 Test Item Value Reference Range Interpretation Comments GGT (test code = 2324-2) 19 U/L -36 [facility] HospitalGGT2022-08-19 19:24:45 Test Item Value Reference Range Interpretation Comments GGT (test code = 2324-2) 19 U/L - [facility] HospitalCortisol, [id number] 19:24:14 Test Item Value Reference Range Interpretation [...] interpreting chester ch values and done in [facility] [place] with clinical c ontext. Serum Cortisol Reference Ranges: Morning (6-10am) (4.8 - 19.5)Aft ernoon (4-8pm) (2.5 - 11.9) [Automated mess age] The system which ge nerated this result tra nsmitted reference range : 4.80 - 19.50 mcg/dL. T he reference range was not used to interpr et this result as keiko l/abnormal. [facility] HospitalCortisol, [id number] 19:24:14 Test Item Value Reference Range Interpretation [...] chester ch values and done in con [place] with clinical c ontext. Serum Cortisol Reference Ranges: Morning (6-10am) (4.8 - 19.5)Aft ernoon (4-8pm) (2.5 - 11.9) [Automated mess age] The system which ge nerated this result tra nsmitted reference range : 4.80 - 19.50 mcg/dL. T he reference range was not used to interpr et this result as keiko l/abnormal. [facility] HospitalUrinalysis with Microscopic 2022-02-03 19:16:18 Test Item Value Reference Interpretation Comments Range UA WBC (test code = 8 See_Comment H [Automa mariah 27663-0) message] The system which generated this result transmitted reference range : 0 - 2 /HPF. The reference range was not used to interpret this result as normal/abnormal . UA RBC (test code = 1 See_Comment [Automa mariah 60529-3) message] The system which generated this result transmitted reference range : 0 - 2 /HPF. The reference range was not used to interpret this result as normal/abnormal . UA Mucous (test code NOT SEEN Not Seen-Trace = 53755-2) /HPF UA Bacteria (test NOT SEEN NOT SEEN /HPF code = 82077-7) UA Squam Epi (test OCC None-Occasiona code = 92986-7) l /HPF RHIANNA (test code = Some reporting RHIANNA) parameters within the Urinalysis test have changed due to the implementation of new instrumentation in the [employer] [place], allowing greater sensitivity of measurement. Urinalysis results reported by the [facility] using existing instrumentation, as well as Urinalysis testing performed manually or by backup methodology at the [facility] will remain relatively unchanged. New reporting parameters and units will now be reported for all [facility]. Lab Interpretation Abnormal (test code = 68284-8) [facility] HospitalUrinalysis with Microscopic 2022-02-03 19:16:18 Test Item Value Reference Interpretation Comments Range UA WBC (test code = 8 See_Comment H [Automa mariah 19021-0) message] The system which generated this result transmitted reference range : 0 - 2 /HPF. The reference range was not used to interpret this result as normal/abnormal . UA RBC (test code = 1 See_Comment [Automa mariah 81097-5) message] The system which generated this result transmitted reference range : 0 - 2 /HPF. The reference range was not used to interpret this result as normal/abnormal . UA Mucous (test code NOT SEEN Not Seen-Trace = 17350-1) /HPF UA Bacteria (test NOT SEEN NOT SEEN /HPF code = 33576-9) UA Squam Epi (test OCC None-Occasiona code = 78684-1) l /HPF RHIANNA (test code = Some reporting RHIANNA) parameters within the Urinalysis test have changed due to the implementation of new instrumentation in the [employer] [place], allowing greater sensitivity of measurement. Urinalysis results reported by the [facility] using existing instrumentation, as well as Urinalysis testing performed manually or by backup methodology at the [facility] will remain relatively unchanged. New reporting parameters and units will now be reported for all [facility]. Lab Interpretation Abnormal (test code = 11008-6) [facility] HospitalLipase [id number] 19:13:05 Test Item Value Reference Range Interpretation Comments Lipase Lvl (test code = 3040-3) 56 U/L 13-60 [facility] HospitalLipase [id number] 19:13:05 Test Item Value Reference Range Interpretation Comments Lipase Lvl (test code = 3040-3) 56 U/L 13-60 [facility] HospitalAmylase [id number] 19:13:04 Test Item Value Reference Range Interpretation Comments Amylase Lvl (test code = 1798-8) 102 U/L 28-100 H Lab Interpretation (test code = Abnormal 51169-1) [facility] HospitalAmylase [id number] 19:13:04 Test Item Value Reference Range Interpretation Comments Amylase Lvl (test code = 1798-8) 102 U/L 28-100 H Lab Interpretation (test code = Abnormal 17716-8) [facility] HospitalUrinalysis w/Microscopic if [id number] 19:08:15 Test Item Value Reference Range Interpretation Comments UA Color (test code = 87859-3) Straw Straw-Yellow UA Appear (test code = [...] A Lab Interpretation (test code = Abnormal 44545-3) [facility] HospitalUrinalysis w/Microscopic if Kyrymcxqq4911-08-34 19:08:15 Test Item Value Reference Range Interpretation Comments UA Color (test code = 23914-9) Straw Straw-Yellow UA Appear (test code = [...] A Lab Interpretation (test code = Abnormal 38744-3) [facility] HospitalaPTT2022-08-19 19:00:12 Test Item Value Reference Range Interpretation Comments aPTT (test code = 36.6 See_Comment H [Automate d 98594-4) message] The system which generated this result transmitted reference range : 22.8 - 34.2 second(s). The reference range was not used to interpret this result as normal/abnormal . RHIANNA (test code = RHIANNA) This lab cannot be scheduled at the following locations due to collection/procc essing restrictions: [facility] and [facility]. Lab Interpretation Abnormal (test code = 22554-3) [facility] HospitalaPTT2022-08-19 19:00:12 Test Item Value Reference Range Interpretation Comments aPTT (test code = 36.6 See_Comment H [Automate d 60390-0) message] The system which generated this result transmitted reference range : 22.8 - 34.2 second(s). The reference range was not used to interpret this result as normal/abnormal . RHIANNA (test code = RHIANNA) This lab cannot be scheduled at the following locations due to collection/procc essing restrictions: [facility] and [facility]. Lab Interpretation Abnormal (test code = 21729-1) [facility] HospitalProthrombin [id number] 19:00:11 Test Item Value Reference Range Interpretation [...] following locations due to collection/procc essing restrictions: [facility] and [facility]. Lab Interpretation Abnormal (test code = 82956-9) [facility] HospitalProthrombin [id number] 19:00:11 Test Item Value Reference Range Interpretation [...] following locations due to collection/procc essing restrictions: [facility] DIA [facility] and [facility]. Lab Interpretation Abnormal (test code = 58497-4) [facility] HospitalComplete PFT (Kale, DLCO, LV) 2022-02-03 00:00:00 Test Item Value [...] 9530) Lab Interpretation (test Abnormal code = 41201-6) [facility] Cancer Apple SpringsComplete PFT (Kale, DLCO, LV) 2022-02-03 00:00:00 Test Item Value Reference Range Interpretation Comments FVC (L) post (test code 2.208 L 1.634-2.859 = 9508) FEV1 (L) post (test code 1.286 L 1.144-2.181 = 9506) FEV1/FVC (%) post (test 58.241 % 64.440-84.028 L code = 9510) DLCO_SB ml/(min*mmHg) 13.745 See_Comment [Auto mated message] (test code = 9515) The [employer] which generated this result transmitted ref erence [...] 9530) Lab Interpretation (test Abnormal code = 35737-0) [facility] HospitalMD BRAF V600 E Mutation Material [id number] 21:49:16 Test Item Value Reference Range Interpretation Comments Archived Material Previously diagnosed (test code = 44200) tissues from [id number] were selected for molecular analysis. Results will be reported separately. [facility] HospitalMD EGFR Mutation Material Request 2021-12-30 21:49:16 Test Item Value Reference Range Interpretation Comments Archived Material Previously diagnosed (test code = 37043) tissues from [place] [address] were selected for molecular analysis. Results will be reported separately. [facility] HospitalMD KRAS Mutation Material Request 2021-12-30 21:49:16 Test Item Value Reference Range Interpretation Comments Archived Material Previously diagnosed (test code = 34810) tissues from [id number] were selected for molecular analysis. Results will be reported separately. [facility] HospitalMD NTRK1 Fusion Analysis Material [id number] 21:49:16 Test Item Value Reference Range Interpretation Comments Archived Material Previously diagnosed (test code = 85320) tissues from [place] [address] were selected for molecular analysis. Results will be reported separately. [facility] [id number] 21:49:16 Test Item Value Reference Range Interpretation Comments Archived Material Previously diagnosed (test code = 77601) tissues from [place] [address] were selected for molecular analysis. Results will be reported separately. [facility] [id number] 21:49:16 Test Item Value Reference Range Interpretation Comments Archived Material Previously diagnosed (test code = 41423) tissues from [place] [address] were selected for molecular analysis. Results will be reported separately. [facility] B[facility]600 E [facility]ation [facility] [id number] 21:49:16 Test Item Value Reference Range Interpretation Comments Archived Material Previously diagnosed (test code = 36341) tissues from [place] [address] were selected for molecular analysis. Results will be reported separately. [facility] EGFR [facility] Request 2021-12-30 21:49:16 Test Item Value Reference Range Interpretation Comments Archived Material Previously diagnosed (test code = 06464) tissues from [place] [address] were selected for molecular analysis. Results will be reported separately. [facility] KR[facility] 2021-12-30 21:49:16 Test Item Value Reference Range Interpretation Comments Archived Material Previously diagnosed (test code = 71250) tissues from [id number] were selected for molecular analysis. Results will be reported separately. [facility] [id number] 21:49:16 Test Item Value Reference Range Interpretation Comments Archived Material Previously diagnosed (test code = 12125) tissues from [place] [address] were selected for molecular analysis. Results will be reported separately. [facility] [id number] 21:49:16 Test Item Value Reference Range Interpretation Comments Archived Material Previously diagnosed (test code = 59454) tissues from [place] [address] were selected for molecular analysis. Results will be reported separately. [facility] [id number] 21:49:16 Test Item Value Reference Range Interpretation Comments Archived Material Previously diagnosed (test code = 49299) tissues from [place] [address] were selected for molecular analysis. Results will be reported separately. [facility] [id number] 21:49:15 Test Item Value Reference Range Interpretation Comments Archived Material Previously diagnosed (test code = 08893) tissues from [place] [address] were selected for molecular analysis. Results will be reported separately. [facility] [id number] 21:49:15 Test Item Value Reference Range Interpretation Comments Archived Material Previously diagnosed (test code = 10733) tissues from [place] [address] were selected for molecular analysis. Results will be reported separately. [facility] ROS1 [facility] [id number] 21:49:15 Test Item Value Reference Range Interpretation Comments Archived Material Previously diagnosed (test code = 67333) tissues from [place] [address] were selected for molecular analysis. Results will be reported separately. [facility] [id number] 21:49:15 Test Item Value Reference Range Interpretation Comments Archived Material Previously diagnosed (test code = 77691) tissues from [place] [address] were selected for molecular analysis. Results will be reported separately. [facility] [id number] 21:49:15 Test Item Value Reference Range Interpretation Comments Archived Material Previously diagnosed (test code = 89109) tissues from [place] [address] were selected for molecular analysis. Results will be reported separately. [facility] [id number] 21:49:15 Test Item Value Reference Range Interpretation Comments Archived Material Previously diagnosed (test code = 50793) tissues from [id number] were selected for molecular analysis. Results will be reported separately. [facility] 2021-12-29 21:51:25 Test Item Value Reference Range Interpretation Comments Addendum 1 (test code = [id number] 37) fQNJgt2hof5LwzIDfeJ ViSOvajLVibjFwwv60q KT3eK98PA9gLENlSbR9 TNClseH7Ghi9EGUcAPP mjZReJ288k1cqx7sovh FlgQL2yFowVFEdgdglN qH6NLbgRZAkwyhyVPt1 FJglXVOucKY3GAFgxIB wS3VzMBMeRQ5jmol3ME U5LTphRBAvCrZ6FFZlc EMlPXGjqNehQObga286 KOE9BjByOQSvghOoxRr jjX0eNsAiGNBFAN7SNY DtS2oyvdYjPzWSOlibO RDqbpUGqHGuhFY3MYAZ zY8wwqDkDIFcl2PlsfL fv58pH5FwwhQfGEWHFz i6PMunVTfoHKFlcLx7k RWRz5McwOLDuoDdkh7n pQacywo3kKEbEpVXtSg zTJDlu9A3FPxbRG6hzf PaBJI3aUBoCNPtgZVJA 3zrAS49GSYrc17vOK2f EXQoMHIdACEqv45eV6q vbmFsIGFudGktUEQtTD PkZCGls18vNOOzFhCrI Px6DMqjGWMconRdtj9h VAGnipYca8AkHExwku5 maXhlZCBwYXJhZmZpbi 5jbVZaUMNnHKL8wPDqs BYcrVEjdgtoHK6aLWhb kCEpgOYIVWtaSUJ0cS0 zdGFpbmVyIGFuZCBwb2 y3xJRvSQUwn9UkAVKfj GVjdGlvbiBraXQsIGFz IHNwZWNpZmllZCBieSB 7fXDauJBhoPZyV6Y2tz VyLiBJdCBpcyBhcHByb 8DiLVLsr7GpmCDuHNHh TJMaL66epTQwoM9dVMK gCZoxs7B1dKZjWSRgYL rpSl7wOSXqTTAhUyvoA HRoZXJhcGllcyBvbiBj CKW2EJuwYMJ9vA1uDJU 5cGVzLiBJbnRlcnByZX RhdGlvbiBndWlkZWxpb mVzIHZhcnkuIEZvciB0 rC5chiSqPZHuqbJdpjX kK5Gwo6JyxaWkCMEPEj smYMUhVQOmMINhOK51J LbeUC3cARH1sC9oRYax qEYtHxBsyd38mrTzOOQ lbGluZyBvZiBhbnkgaW 01NU1cuYW5XQfbDHNzj 3Bki6VuTbBQxTPqd7Nx oeRcEEXktW0vmZyqNXf udGVuZGVkIHRoZXJhcH dclSWzn2YyNHHzggVzb eWmIh1pJTJikHSrwIHv YXRlIHVzZSBvZiByZXN 7yRJbCsINMAYfh6GnRV 3xWVAmnFOqWHL7WWJwo 3StU1Vak04jb2YvESQo nDemk8UkOZS9rTNtVIW 1Y9yuVDCxFCuvuWMlER Buq0RrY0jbTH4uXPRnB JAxhqUzb91yJUIiof66 XPQbqPCed0KetEocLKC kNO0jYAQrXJOeoQnyfs KkKH2gm1IoBzPmC5Vdk mVmnVMbPN6phMPpFUBd cmRcaTBccGFyfQ== Submitted Clinical History g3qzhAXdRNMmb9gpTFD (test code = 95836) mbGFuZzEwMzNcZnRuYm pcdWMxIHtccnRmMVxzc 9GsN7GfGmPcQVwuynZb XGRlZmxhbmcxMDMzXGZ 0bmJqXHVjMVxkZWZmMH ndGf2feLGeeCelHkUoR JXhw8angtJMyumapFi8 s8htVCLvPwH5kQImKFm wF3pjqqVdrZPrWJTsKL x9oG66BCLqyW4taBSkT PblotGfRbV4SObpTBRb BzG6FAGphDAeLBDmQ8g yZWQwXGdyZWVuMFxibH ByXXM2mAnvo2R0fUYmk GVldHtcZjBcZnMyMiBO h0OpFMv5uGddV8SxBTZ bDbG5pDRmPRGlVGqdMH GhPRXoskV6gR19UOmmd sM6tUYmu7Tis28nj244 iK7inQByKCW4NQGnFYY haSObISQyBRC9OFCiiU QpA2ddDHGgKW5qdntsG MdiHXjaYLOicLC9XVYu jXPvT5LdTIIrWFdyDUN yncy6JhFlVk5ocNTndG sdMKbrs5duf6bqxYQwD gu5VGTyYqPxAccxCMbk c6Fsa5sdMDPnlt2eJNR 6ySRikOxvt7E1zZLuPI GijDUdavUvTFQyUzE1F JkvEB9vhp99KRNuSUM3 fh9quWSwvEasnvXlkCW xHIgbB7GtTAFhw820RL YbQ6OnRNHxa2N4nfJdU gNvIBQfzHQ3fgJ2MMGc GUq2zPGvztM5czEsgTN oV2wvtH2sCOFbUZ4ewn tga2zwCUheMJmzGYDhx BZ1vnM9TDSnpAZyE5Mv jU5eEPBdSNovKIUgwem 1PwRcUo1ugDZlzIvxSD xzYmtwYWdlXHBnbmNvb nRccGduZGVjXHBsYWlu XHBsYWluXGYwXGZzMjR wpZnhaIoksV5jBgHuKj MaTCnyNZ8aSGLsS3upp UJsQHImQXQuE3pfPuSh nS2tqJbxLFvcqeYxPE7 9cUEdaRtkQR3kKUZyYS Alr7CzgWZqAmZoWjjyY drzXJNzepXRgZ6lXC6f s7CfY6I0DY56QJzjmWJ pblxmMVxmczIyXGxhbm sdQLVgWPuwP9ymXuGtK CEdxMxgYSgfc3QgYVJc XGZzMjJccGFyfX0= Diagnosis (test code = 34) z7rhnBObFAOafZT9PGO jAIVga0fdr1MkvATwkR DgCJiitZFzgcRzns33m ZW9fD18LP3xXGMgOkA8 MTFfmsC4Svo6OYKuPOS plYAgZ953g7cvn2npkp TjbXR4xVjtJSXtxusxM wF3HFbeEUJfsocsCXd2 HGsyCWLrmER2QLQkkVC sQ4RsBJVnYL5mwdx6WT A8RWnlSXJpInU4FCWfh VTcWJRffHykXGtlb901 IUH2RoDkXBAkabVajYw lfT9zVzIyJHTNsB0zMX EkTDF1IIUlxYIcNRojY hLkDIQdf9SmfMchtPXa BDTnyvr7VEOtAQPTHa5 VRXHQPK8WHRIjF6FsPF UPSaGOJvnRDX4fJFSkn hx8EAQsG9AhOZUecT8d bnQuXHBhcn0= Comment (test code = 9835) x8dejMFbHEInaHQ7OHQ uQRNol9oem0BbdZCzlY UnZJxksGUggoPsvf66q HT0jU28MY4oDLYeGdK7 JAEvtgG3Jkt0UONsQFY fkKZcD317o5lvi6jszy VswNE6rGrzLHWiyvxrX kX2VWejOZWnflnuRCb1 FCquAXGwdLD9RHFthDP rJ8WiTKSbTW5vwlo5IY K7KKxdATHgKwW0LMDkt XQvKIZojJniKWaog579 XWT5BbBbLMRdddMphRh vgM3vTsUcZMULjP63gp 5eqTB5b5NnIJ9uL5LpP MA6NZrypkQgaZ19KOMq v8p8pUFnNPD7MYljiO8 qVHmfHMQ1yR9bLMDukX ipLFiqtSukl1IlNGLun iBhbmQgVFRGLTEsIHdo lAtzIJ7sC6P0vLRzSWL vciBHQVRBLTMsIFBBWC 04LCBhbmQgcDQwLlxwY XJ9 Gross Description (test e0jleXNoBEFecWLRNSo code = [id number]) wMVxhbnNpXHNwbHRwZ3 HsfyveDVasDS4uOY0lz TjugDOxhQLfHU9KORMb ZmYxXHBhcGVydzEyMjQ jWIDtkALkqDF4HXQeNA 1hcmdsMTgwMFxtYXJnc tB1UAOdvHDuX5RqRLDy VZ1hassbXIX1LTlscP9 mtfNEXldpWk0qvDFcgP tcZjFcZmNoYXJzZXQwX DSuoOhqQWLvHMu5zX1H TvjyR15xj1C1Smy9GVG hCROgP4BeTF9lROUfiN DhO26SAkcjZLE6VYRRM husYUBwML6Bk2ywNMFa yHOzLGV5FHxmwHYzVZN iIARlRLp0XWSsOBgkdB FfVN9wkNtyZsagaFkvg 2VjdCBcXGlkIDUxMDAy AIgwBDWyFG5CMbEzHVK wJcI1PPesRYs8QMf6YP 7JVjStWRYsGASnVPB5D sSlONf3LIrfYI4CKFAy NjgxMzUxMzYgNTUyNTQ tHRz0OPJmGCriNSCwiD FsIFxcZnMgMTAgXFxmY kSnWKIoILtdeaT0LSBt YWluXGJcZnMyMCBBOlx zGJJwQPfcfViwuW4kIY KbU35sm2QWs2NmFY9PR Eg0gpJemmynfD6gKEIz ksXyBAetsXAaS8okXnh tFoYcBnFaFRFRzZ3lMS KwAAA4TVPsrTLiHMguZ mUsIGxlZnQgbHVuZzpc FiHwJ2RpZKTWkJVsEGV ba9EgswUtBeQ6WY8sZh Omh47la64liVT4aHCpp WUgYWdncmVnYXRpbmcg bV5gNe4sSWklCE6aBJm gYL5rWTLnCCJrwzWscm TkeYAxiNHcbKH8XJNtp G7gTZBcSAPtbRTleGZb hOvoXbmuyCS2DFcyHzh ctX2mlGUJSIBGMcaSMr vefsBvZQ9NML5RKqEWB L20OtFrQDF8IGnLZ8SR kAC8Ubm5NLm9qBsyOgf wuiTsxJPyYfUMlQ6HPk anQmabuHK6SAuxEsbxy T8gtLLUFPHLWfbJDkqg xsOwVL5YMO6PPW3MtIO rYDD5tOD6JHUDDnjosW O7pSW5pR78BNSrZDVfv NZrRGlhW237GJOiQWyf JWs3ekOtWWKoWbBkYIq rDOPhI94zz0DXu7XrZY Thw5jogYqan2JteLPqJ KvmXXKlnSQtVQpazU4n SuTpy8kyqIz9ORfknoV 1GCJxiv8oqHijgL3lUR zkj3kwBKH6MEAvxKJdy GKoTEmmnQdaiL0pKyJx Mbh7RDxdWDRqU1EyX4D whaQ1CZJdTVdoHDDeAK YgDQp9 Biomarker Block(s) (test w2nclWTsMIXbsJT1RGT code = 9841) aARXzx1edu8WnmQDawY KcZKpezTYdmrJicq24x MN1iU44HT0zDIViLpY2 NWHaebQ8Kwn3HMIxSGR vuTGpB617k8pnd9dlrc ZdiPH3kPocGRYxulahL nC5BVbvJMFaxqlkQUz0 VFmjBMShbEB3GADgzGH kV5YqNHKhXJ8svad7OD O8IBhvTWSaDcP1VMBrm MCiWBYkvZngZNbkq043 RVE6HsWvWBOzwwKwkZe ncA3iFsNdZVNLYtbjTC J9 Disclaimer (test code = d0lqoJLoPQMjcSNfIvZ 9850) vFKYhOBYha4acKCVyuF FuZzEwMzNcZnRuYmpcd FDfEFDuMfEns8yok624 yQVbv7wzUWIoDkT2oDV tSSZlkKCuQ770NRKcEP mcy5nvb2UlGTTrnPEth 9G5WJSIfwbgsRt0nUpz O02sy7R5XuczQ1nwCSX sYKClE8QgPL6bSZHoLz x8APU8IDH0GEMvGTPoJ 9McCH1tMGMifHUwXRp7 a1qibNpqKVKkSJL4n9e zXEuoptFnQX3cza1kvY e9x3tgugYjWTCwYPFan YXACLQuI6DihJyfHu8v fQn9xFtjGytqSXR0Qtr 9KA6axr71vbo9aNyrSK LwoqkkViA8IOatXRCio srqJJv5SDdbFWBurQN5 JPSrgYBrF2LfYTFaDU2 zpsb3RBT2XHfiVRCyZc O2EZTppXIjMZSjxDvsQ Rfjy715UWF2JlRvRO5t S1Mni6N8uN5yxHHoHBW uhAZcHqQtSWInqf7ubI WyNAcfz2ZsZZY0jtF7r DTlyMVtVJTqGH08Lpxl q2CnNjlcXPW3ICSpphL ii1Nub0ovIjTzhvWvX7 ckA1HdAUKcKWZfLLTzQ dOeiuEzt3Fhj7RbaDMh tPq9e7azXUVoSPEoiKe jh5glEXX2SQSxX1O1hG Wzu0ukCFtjJBUfyMP3r fR2VKRmvPYsP6IctV2j YZIkFN2iozj7h1koHIB 9TIbgPLBjWyR6stM5BD BcaGVhZGVyeTcyMFxmb 097TSJ9XrAgNDPkj7Rq S8WnbUdeS59yzCajM30 aUNAdxCplgJ8maLeohI 5cZjBcZnMyNFxxbFxwb VTaxcpdNJxlzlE7HHsg apynWVBrXVnwX9vuFtA iQSWkjIbbTAqgm5PkUM ImJKCvNjmihbN3AGMUh 03pWMBgf8FvMHEyiA1u cANgEYuzhqRhsRQ9VMq hdmUgYmVlbiBkZXZlbG 4zXUJyRA2mMJOjdrHgy m7xvrHwWIOuAAIeQ0Fq cmlzdGljcyBkZXRlcm1 uugKcGKV7LZVUGG9OBF VrCEWyv19aIGLslIwkk A3fhGQfenUePTKwp9Ot fY6peQKXZGVzT0omPZ8 rMEyis5GduEIpdVEmhY M2ELGma6DbFcNbqgCit AIveHLrW4UssTckN6dg FUFuOKMqcwWsdROjt1S zGMGdzKJ7tKGoQB1VLe GPy55xOIVwWIADoeMvQ ISpcRjnmEO1uhK3pT4g LiBJZiBhcHBsaWNhYmx uGTBlx684mx5qcfA5VR GxOWPohnfmg9ZmEJDzH PXrjT24NCOoBYNsvo0z kmgkcXIkaiChT7Zixyg 5dV9pQSBaTWimAHSqIA ZzMjJcbGFuZzEwMzNca GljaFxmMVxkYmNoXGYx BHrvK2blYiMuIePqQqk wYXJ9 [facility] Bi[facility] Interpretation 2021-12-29 21:51:25 Test Item Value Reference Range Interpretation Comments Addendum 1 (test code = g8xbbHExZDHraPN6QVD 37) gRCQvu7qmk2KyhUKsxZ TcMHhqaNNoglIhfs11o PP5dI83PP2jUOExZwI0 HOCplaB8Kho7LXPfPEK tqVZjR027n5trc1gsfk LbxKH2kQpdOGLlgxkoX xB4PNeyTRJbvxesAIs2 RHiiOGMqwRA4GIZubGU kR2IxRHKyIV5hsfl2WZ L2ZZaeAMMnYaB0WOJzg NKeTROjkZxwYBvjt753 BTF5KlBjVGEfszHqoJv xeI6iHnLpZNJIXZ8QAJ ZhG7mfsjMcDwXEDvlfB EFzwmDQfRMzcQN0DNCX vU0xmpTdGZWfx6TdzhG pi90sL5XcjwIfZQKMNy i4AKwuITdbZQVabOf7l FCQt9VphIXFzsQvti9h aAfipju8mPIyUvGJqSj xNXPag2D4QEziNE9nlg LuSYN5vWSxDFGpaLCDZ 2ixGQ10WASwg10xLN0z JPUbLJZgAPExi64oV1o vbmFsIGFudGktUEQtTD TwBEAza81yGWQpZyRsC Rl7MPgnUZLvfzOxrq4t CKQjjsHuh0YhIHjvip1 maXhlZCBwYXJhZmZpbi 1jrMEcKIQdOWK7cDSbo PQgeVXlsdusHQ0fRLue nKLkmAVFSBnoXKJ4mF7 zdGFpbmVyIGFuZCBwb2 g8jNZoLIVcj8RnOQTcj GVjdGlvbiBraXQsIGFz IHNwZWNpZmllZCBieSB 2mEOdhOPhkHRwY2Z9op VyLiBJdCBpcyBhcHByb 3ItELZvq9SdgNFrZVPw RVJvN96ktIYyeY8oDLL kLPxhh8O4uPGlYPVrKI yoUh9sYZZhKVOqKdvpO HRoZXJhcGllcyBvbiBj ULK8CMzgKUZ7sH8rYEE 5cGVzLiBJbnRlcnByZX RhdGlvbiBndWlkZWxpb mVzIHZhcnkuIEZvciB0 iL7yupJuPOKwkxZhiwD yV1Srt0SaviFmXVSAFk pdWXVzSUJhWLPfTM50W HjtQC3xKZY7yB7uWPve yLYkGnIkul42waCiBHX lbGluZyBvZiBhbnkgaW 62VC1lwJQ4BGliKWMka 7Nyc8FnEvHMpXLrs4Xl alEdZLZwsA5fbVokCVy udGVuZGVkIHRoZXJhcH okhCGzc5BiYPFtplFjo bUkTl3uVWVgiZSkqVIe YXRlIHVzZSBvZiByZXN 1aOYvImVNPTMhz6VoUE 2uCGXusOLlXUL3RDRea 0AsI3Jjw03uw8JaPCEu zMbxl8IqZVU2oSGzOYP 4U5urDJXjIKgirIMpCI Red7IaH4bsRL8jYIEqI PIbfiAlu75eIQJvfe33 QFJnpGRgs6WwhEptDRT yTA3uGBVnCBFamRhjch ClLA4fl1QgUbKuS4Xqf uPqyZVyJY3peSOkJRCx cmRcaTBccGFyfQ== Submitted Clinical History k1pddCDlUOWuw2irQRO (test code = 60789) mbGFuZzEwMzNcZnRuYm pcdWMxIHtccnRmMVxzc 3WgP9RqHtXnOQtdhwWp XGRlZmxhbmcxMDMzXGZ 0bmJqXHVjMVxkZWZmMH hvGk7vlFKefVusHtPoG VNch3mybvRDgprvaIg4 p9tbZCYqYdF7jWLaUJf mT3wjnmEacVAcBUXzAO r1jK69ZIMqpH9opNLnI QdholXuQrQ3BZdkVATm MlE1XLLbiXZyEJYfS2k yZWQwXGdyZWVuMFxibH ZvCRY6dYpyv4A3cWPjq GVldHtcZjBcZnMyMiBO y7BtUPe1xBulA2JmLBR eTmZ2nNHwSBIaLLvgRQ BaLAAdapX8kB21OXckn eN5wGJnl0Bzu91kx821 xE4muGAnTGF7YFLlRKZ ftCRjPDJuZPQ5IBZosF ZuX9fuVJCkHX1wvbsfR TdtIVrrZKAsdSA6XDRg pXXiZ8EwNVTrPExlAFA lkqe2EsGpUs8oaXBqnS ozRPnyz0jvj1apkYVwU kd0GYVgLgWvGgopOGvm a5Pqp6vtREWwkz7jFFM 0pELxmDrdy5Y4wMLdKG UetGKrmxMaXFSdYbB1G FxcRW5jjk01KHHzMED0 wf1gjXZfyNxobjMprPO yLOihA8KwQOAih798VJ MdS8MlXXAkz9Z8qrRmT yGtWOBvaCT2xoD8BNTz UFe4rWEegiW9sxFqlHU bP7wakL4fQECsAQ4ycg kzf6vxQDjcXHncOWEhg LJ9ryT0BBYfoRYgJ1Jo dL6oKRAvDHwlCGSllho 2BjAhAt8glOHviLiqYX xzYmtwYWdlXHBnbmNvb nRccGduZGVjXHBsYWlu XHBsYWluXGYwXGZzMjR rpAgrmBrgqU1eJbWvOd CnMQymJP5lWBGfU6smu PVcDOCjSMZjL3saIsBq zZ9hdEopQCadkrHaUO3 5gPYgzDbdCL7kWVJfDQ Vsx8PpoBNaXrOvXvvtU ksrDURvjbGBiJ0hXV8w y3AlI8S0BZ57GVmntJE pblxmMVxmczIyXGxhbm dgCJBnCJzyL4ziBdFjX GJxvSppVDbgr2StMHOu XGZzMjJccGFyfX0= Diagnosis (test code = 34) u2byhHPxCOIgjED1LQH uYCBbd8sdq1RvsODhlR MzDLwfgNTcofUdzt33d XR2gW10EY4jJMVrGmB0 LQDoohS4Ate2OPWeZBD bcNZlY927f3zwm1uvwe DnaNE6uCsaNOHtdzwjX xT5VYtbKGRwihrzMDi2 PEtjRDQcqRS2OBQthWB fC7LyDPQeLU0suza3QH T3VDquQJHfPbB3TVZrc KFqJUCyxReyFFxjj661 LUN6TfKgRPMhheBolRf ebR0mUaYlLGMSyY9aRX RdSGU9CJIxiRFuSWnqT cJsGIQpu9ArhMxstXNb KUFvbdv6NACsVYJFNf1 WGBMRNH3GLBNrS9BhHO LMOtIJXtfOQL4hGTJdl gu6TJPzQ9BrAVHgbF5i bnQuXHBhcn0= Comment (test code = 9835) a0kirJQvKARvlNU4PCH yIANjf9kjp5SuaIJxaD YgQAkmfGUeqmDtvq43r ID8jD46ZF9oFLHwMdU7 KXDyjfP2Bcc8TYXuNXK naKQzT655d6zvs7njsr UxtCW6dIheTXKuxcuwB bA0FZjdBORhpgpbCHg7 ASvrNKEbfOI0EFGmuSN yE2JjGDFjDN1bomd9ZO C8SRhmQDBvNqQ8PRFpe OVzOEMbrJnaVQlkj143 FSN2DqTvZUHvdxZshYn ieN8rKtDoGGLMaS55dd 8vaWO0r2TcXN9wA7JyZ FE8CPptmhWsxK01HEJc n7u5xMAaDXB1ZDnatM0 cAMbmQEA0xC5uZHRnvJ nsGLglhHqva3JvAILnl iBhbmQgVFRGLTEsIHdo mAxyGN4hB9B9fVRuGJN vciBHQVRBLTMsIFBBWC 04LCBhbmQgcDQwLlxwY XJ9 Gross Description (test s4tndLObAEBavSIMCHl code = [id number]) wMVxhbnNpXHNwbHRwZ3 GwxghrUOvaTY0tWA4pn BqgcHTebDPlUD8VEEPt ZmYxXHBhcGVydzEyMjQ wGAHucMAjsSQ0UQBrSO 1hcmdsMTgwMFxtYXJnc jK9WTYyuEMoJ7YsMPBv BB4hnbtwVZB0SFbonQ9 hbkJLLuhzQs2ncKEdxE tcZjFcZmNoYXJzZXQwX NHhhSiqHTMsAVe9pG5T AccsM62xa6R7Prw3CLF vBNCqA3HzXY4zHRYsxQ JvV16GAejjQDM3CYGHQ ekdOETlZE6Ws8xqJBIv oMReRFA0WObyoEPmSOP aHKIrUVd3PNFeATjpmU TdUL9krOpyGomuhHtgj 2VjdCBcXGlkIDUxMDAy LVjdVAHpHP1LIwXmXQM cOpA4XOdiGTx7MOq8EV 8ZRpSrTWDrWJUtHES5P mXwWMs4TDvwAH0PSHTk NjgxMzUxMzYgNTUyNTQ kQSq5CRNyIZulMQUzpY FsIFxcZnMgMTAgXFxmY tPjASEqXKatrkQ0INAz YWluXGJcZnMyMCBBOlx vXWYiOFgoePzwuM0sEZ ZgB77iu2PSs5NdNK9FQ Qd3qjYorkamwN9bTVUs iwXmEBbsjJPnI0tzCrh bNdVjUaXkOMJShD9vCH JvKQY2AWSbrMMfCYilQ mUsIGxlZnQgbHVuZzpc LrXuH4IzMNDTiJRpEJC en0WxhgCbRuG1VC7uXh Rfi95oy41sqZE1vJEsd WUgYWdncmVnYXRpbmcg gM1bOv5rSDxqKS4aXUt dNU0nZBYyHJUjgdBtyv YcjSVyrZRxfWJ3NWGkd H8iNTNuXYJdrJJvjKHk hEklUzomkLO4QHahPmg wuF7zdNBIJGIQVxmORu keurExLB9OCY0YMeBEE J15HvKlGLG5ANyBV5PJ yGK4Mav0ETd8mFytRkx rdzDzdCGuDkIGaN6SIz afJcjuxPZ5KYnlLzriw M1ljIRRFXLOEcyUPvcs gyRdXU5MRI5KDF6QnIZ fQWQ9rFK2HBSDSqjlyM K9oRL5yI31VGGjYRPdk CMsIZpfB128KFNvLQee UYz8agYiSFUwMgIgOMt mUGJiO26ay8SMe0ItYN Joo3idnAzcf9OwoDToY SqmBLZmoHHoMYvccB9q KzCqh2evnLo7TSkiruT 8HZTuso6goGbqzP6oVJ imh2btCGC7ORPqyDVmo XDgXMqdgApqqL5pCqMm Snp1IGybXEEqB7QhW3O jiyC8OBEkNDcaDPVsDM YgDQp9 Biomarker Block(s) (test l4vwxJIsHYNgyQT4WBL code = 9841) bVDXtc8bas5HawGOvkU OnIZzdoUSziuCyvd94l YM6fH27HI3fGLYlRqE1 ZCOzgyU5Cpz3ZFVhWXY igVGyX970j1tfu8xwim BacPZ1vDrlXSCuttraM oD6FQiiHVOppanzAEc6 MXksJVLjcVY3JYNlvHP kY7LbNFRoIR3bfbb6RP G1RAnsUTDnSxL3FPIbm UMuXSZntXnlXLqcf485 BGD8JaQbSTGdrnIqoVa qbA1vDsZhDFRGZjflID J9 Disclaimer (test code = o3qnuCVrGPOqbWRsTgI 9842) gXLJhGMOqx1jcEYHmmY FuZzEwMzNcZnRuYmpcd ZRfFITaEnGpu2mjz087 kJKat5eqWKHlFeM2tWH aZGJszOUbG751IRYsFL gpp4rhc2GnSMWmeOEpd 1D0OLFCrifioBr6wPuc L09yy3S4OgwbJ5luUUH tLDSyS8JcZL0jZQJtKb s1VOP9BAP0HXUfCWQsE 7AoIV3oGGEyxHQfZMx7 l9aqjNicVKTvOIJ0p4s dFIkiodEuBK8cwl4dkS l9l0kutmXnBFJlUITis IZWYSRrI2CsgZtaFw5c gVs7gEuzWgnhPNH7Yvr 9EK7hue70uld4jKxiYB VmfujrSnT7EMfzDTDwp mlyHQh7QDfuTNEfaQA9 DYVnrQEtB3LjXOCmKP5 ivlp8XLY5KLnxQWJdDc P1YNBpwEUbKHErqMixR Ysqo552AHX5MlPoZJ3d M1Krq4B7cS6vyOCgFDX xqTKbVpYyYDHtsp7ofS WkONoxg1DwMGY6ywQ0k MOsvGMiPQQvNU10Thmd u6BzAbbaMQR1AKVnnzC ci5Iqo2wtTvTippYmY3 aeP5JgPQZsPMVgCUXjI nIloqKdd1Ufb5AotJMt pGi9p2dtXFQgMITheFs ie2ggTRK1TCNhM5V5iB Ssc4ueUZmvARMkuDJ5y zT0SNQykFHrV7ChiC5o GNWrVF3jztw1e7lrHOX 6NRtkQJKdRtG1iiR3YK BcaGVhZGVyeTcyMFxmb 522KZB5OvDyYGQld0Ut Z8DhtWdbX87fgMpuN41 sYHZkmChfdF5xmJotbX 5cZjBcZnMyNFxxbFxwb QRuwrorXWjminU5JIoz ohbaYNXiMRlpN5buHvB qXNDcyZazLVuyk6KzJA NyESRrRcawlcK9CRCQu 38eNJWjf3JwHAZlpK8o aBDyXMygzyIcyVE6CIa hdmUgYmVlbiBkZXZlbG 7sNHDtUQ2hHZKoymFlt f3dgeXaZSJzOYHnL6Sf cmlzdGljcyBkZXRlcm1 plaPkVZM8YBKDHS3ZXD IyYLBgh31nYOHjpRqaz P6xqMWcaeRmWCPev0Ib lG2agVNVAKTwA8yqCI9 uPVuze7OvhZDgdLPejC P9ZKLgd3ErUcCfsbGcw DHbxLXpN9OsfGilK9jj GGHmYBFavoQcpBWgg8A jBHQytST4dXIyCZ0ABu QQe48rTWGuNAHTbsKwH JQfyKkpwXD0leQ2aO9y LiBJZiBhcHBsaWNhYmx wWBOum551py3lebV3JZ KcLWIncydse4ZyPRZrV LArwU06ANWiGLEamh0n ractaXPczwHuH6Vcrdr 8uS7cQBFgSCcjUUSyCK ZzMjJcbGFuZzEwMzNca GljaFxmMVxkYmNoXGYx HQbvU9viNaWaIeHzQtw wYXJ9 [facility] NGS Blood [id number] 20:08:22 Test Item Value Reference Range Interpretation Comments Molecular Diagnostics (Received) (test Yes code = 8400) [facility] NGS Blood [id number] 20:08:22 Test Item Value Reference Range Interpretation Comments [facility] 8400[facility] [id number] 20:04:01 Test Item Value Reference Range Interpretation Comments Molecular Diagnostics (Received) (test Yes code = 8400) [facility] ROS1 Fusion Analysis Collection, [id number] 20:04:01 Test Item Value Reference Range Interpretation Comments Molecular Diagnostics (Received) (test Yes code = 8400) [facility] RET Fusion Analysis Collection, [id number] 20:04:00 Test Item Value Reference Range Interpretation Comments Molecular Diagnostics (Received) (test Yes code = 8400) [facility] RET Fusion Analysis Collection, [id number] 20:04:00 Test Item Value Reference Range Interpretation Comments Molecular Diagnostics (Received) (test Yes code = 8400) [facility] MET Mutation Analysis Collection, [id number] 20:03:59 Test Item Value Reference Range Interpretation Comments Molecular Diagnostics (Received) (test Yes code = 8400) [facility] MET Mutation Analysis Collection, [id number] 20:03:59 Test Item Value Reference Range Interpretation Comments Molecular Diagnostics (Received) (test Yes code = 8400) [facility] ERBB2 Full Gene Mutation Analysis Collection, [id number] 20:03:58 Test Item Value Reference Range Interpretation Comments Molecular Diagnostics (Received) (test Yes code = 8400) [facility] ERBB2 Full Gene Mutation Analysis Collection, [id number] 20:03:58 Test Item Value Reference Range Interpretation Comments Molecular Diagnostics (Received) (test Yes code = 8400) [facility] EML4/ALK Fusion Analysis Collection, [id number] 20:03:57 Test Item Value Reference Range Interpretation Comments Molecular Diagnostics (Received) (test Yes code = 8400) [facility] EML4/ALK Fusion Analysis Collection, [id number] 20:03:57 Test Item Value Reference Range Interpretation Comments Molecular Diagnostics (Received) (test Yes code = 8400) [facility] BRAF Mutation Analysis Collection, [id number] 20:03:56 Test Item Value Reference Range Interpretation Comments Molecular Diagnostics (Received) (test Yes code = 8400) [facility] BRAF Mutation Analysis Collection, [id number] 20:03:56 Test Item Value Reference Range Interpretation Comments Molecular Diagnostics (Received) (test Yes code = 8400) [facility] [id number] 21:47:58 Test Item Value Reference Range Interpretation Comments Gross Description (test u8vmyZUkFHRezAFKQXhdC code = [id number]) NgzsuHzAWGcvNQlF7Uvjl vgIQkwLM3tVN2odEaxiRG ifDIzWB1GYDUtTyShYKDy cGVydzEyMjQwXHBhcGVya IH1QIPdVS5nkpocTCaaVH idDMVdgdR8KNNhpNGpQ6V gQGYuCX0uquegMJD9IHcp hY2cmrDLKhliKv7jySNeg HtcZjFcZmNoYXJzZXQwXG JozGcmTNNoDUt8tP9PRwf bP29db0L1Yru4AZQkWWMx U6AuGK1gUWHzvFCgM71DU achYPZ0MKUZNiuyZBArNI 1By8arRTBewVGbEPQ1EBm bzFMzTHEyJOCyLCc3WKOy PXvxgBHiKD7maVnvCcmbc Pgnt5AsdAIaXWevXBKhWV RgMLzwNBIqEC4PVfDzQJS zIxY6XpOdSIp0NFc0YH8M UyAiICAgNTEyMzcwMCIgO Bb3SPqdNE3PXBLqMQH7OA B3FQYqPKHhCgFfZRk7WHR gXFxmIEFyaWFsIFxcZnMg MTAgXFxmYiBcXGZsIFxcb bB6PHSuGBrtUEGdCxBuAZ BBOlxwYXIgDQpccGxhaW5 iUMHsH62pe5IIc1FsKK9I GTe0glKvumudnM3hEIBjq qYjHZzntLPvL7ytU4LkWG NcRrSmX6YbI4trQG4uSGO rt7S7tqCvZffpOOUaSIwo IERpZmYgUXVpazsgMyBQY AAzS5PdaS1cX5bkJKMbMV BhciANCjUgbWwsIFxwcm9 7HPV7u9dvgTRcQBjmZzgs hXZwcnI0CZpREJINBGiGO tFiML8jZKrEC3MMAIoVWk gqUAY8UFsbtEY6w2vvfHJ qh7k8GEmmWKD1jGCgpCcp rAv0OVYcg4XvmNKsfEYba TEafRO3QFFfKFfjb1veHQ UbQZfcw7VyZOcRVUBCIJ8 KQQ5hvUP1M3aQJSAZC7nJ mCJ0l0kwiACst2z7JJheM TI9fBWco00rdZahNvrslX N9IYoiLaakiQ0ouCDURDO VPswLXvlrnrGmWY1KBEvV LW5KaNQ7y1krhQNry2l0V WmaXZJ1gNlzvPMbzmplaL BbgIzuyj48AYT7VCPnFIz mczIwICBmbHVpZHtcZmll nIW7TZvoZvhgxG3fwDSTZ KSVJqsPOfucpgWoSA9OXO DHKC4XxTY7CmXaeGP8KM3 4JHYfXMYqgERlWQmvD750 RXSyTXmiMYi3nxKcWPPhL BpvdnAhSCKknvGCHA3GJX PxnpTDBkTrS5SkdVTXtI7 ug8reDAXgSJqFZPPlP4Um hEUfMAofC9EpTHppZJQnj z0ylGhwHvMuaEFdcGRnqV ivGjI7WHWwVCnzd6inUFR wGBdlp1XtRItWIJRWAZ1A BX3xcNS2HUaWC4CJY2tOk UQjXDnlfVW8UG7KZVxLTE OTmSA9pPbvwUx0z0mcnKS gu9d0GXxxELJ4iHG1OnH4 ThBof4ifxOOzHRhkZdwbx QLltrK3WRqAEMUSYJuYUi IvNK1jCBlGIhvGAuZ6PAX oOdI6G8hPL1PKJFRFLCG9 UHf2lXM0lI89DAWoXXBpu VYnZBseD302ZVTlLUspJS n0mwIhJFHdStUvWJNuNLE ci8LyK8U7MPDiNWejv8xn OJXyWIcku5MfQAxTDAHMB I5PXT6jpNO2ODxUX2QHX9 aJbShzpMI2Ch4MgFQ2tNh nrKf4b6eqzVDjg7p7REor GID2oWB9CLDgDT90UVXzX Pzlj3yfWNJfKIzgf4QxAD yIRPRKNB8TUT5rqJL7ELp WX5XKGQc0Mqy1nR1VD5vl sWq2MHb3qXkjEjewdkAfu SDwQbHXcU6cbTrrdP4siG SfK6zzG8LzGWNsYbIpWGd zLZUtGJaarQKhQY5LR6j7 AQouWh0vFQ3aUGHyoqCJY pmzCgWbJ5ZtB2vfEG8pBU MazTVvF2jjq2XpFODuwfR tmh5rOAXcrBTOCrCZQJK1 jP6chdqiK8QlDZFBFJakT PynibBDARHFBBeZW4LbTW VZIVBCPOQsZoBDIZ8lOmS 9PmD1KA46JwtfMBLFSNSP GDrUVR7JIKUCZDBLOI4PK rUyF7mZINIEXkAbTJIEDQ IZBYKqXcUZQD4uRxo4Ksj so8B0E6eTJBNPRkOvLSVQ YHKCCGGeUU1QRUJZTEOTL I9EGKXRP56HKOEZWPQFK7 WVC6yJWTNai4EpkNqiLpZ 6UvDuGN2fMWnVA6NHG9aU YYUlMMGCSCLPARIjJE2CO NzPTS2NOTZoSJYPQSYXFR ImTfBWZA9rTTcFOA0VDIE tAUGXOOWBDXOtAF7ZAPQN OR5BEVILRSTWL79LSVXPJ NSAE2HNI3wUQOGSCLMAIj VNRzZHWD0OFYRQEIINCR6 FTkQNClxlcGljTmVzdERv AeVubwI9OCLwjGPcUCT3N O2vJNYowgmeHUEtQHAhQO K5BFcktL87uKLyTGEcCRG ccGFyfVxwbGFpbiANClxz pX0aCeIbt3ryaXh0UVFYR rsawCDotsjrxjL7WAPgf5 swkGmvy0BgtXBeKK2bdVi hsS3rKnLdLvLVOc4= Immediate Assessment Adequate cellularity (test code = 9837) Major Classification NFMC/benign (test code = 9839) Diagnosis (test code = e0milTShQQSfiER4NBVdQ 34) HXlc6msp6UbpFWgdYKwPH rusNCdkjEhie90lFE6sL8 1FF1vCHHjGrH7YGGfpfP1 Jbp6KGNwCFBosDTpA122z 6ytl9lyjhBmhEG2NNSrQL FuN6LtNQ2jZCTsaFSeI64 gmGEbAMK3VAMeGUChmNFv SKFzJCT7JUTyrGNvI8tnD INuYV9hxtqgTAvvWFgpAX SalSG3JJNnbDRnU7QoKXU eKYfoGVFvnej4MhFdYc8f fHFgdAbgFYwuZ7ronD2oG lS6XGleP2ilrH8wLGa1NQ brBNHnvPQ5lqQ8QDGrzED uG5LryF8cPHKwYP2sfca6 z5uiBAS2FDleTYOjEcS6y qR3HOFcqMChGOxypNImtq xmczIwXGNmMSBBLiBMeW1 klWLtj3MiIMDpJYAiuGpv pXtdj8VcIFJml8QzmI59T RGfw4MvzqloLJSTloryLn luZSBuZWVkbGUgYXNwaXJ hdGlvbjpccGFyXHRhYlxw LXGktQr2GlWkpJzlClDmD JCdVLUMuhRzCSDov6ZtgZ tqOUIkmwZgdl5lVODrKFI njYuvhMQzBWEkzzYWf4u9 vS3wrTjgpFEdbDybkTpum BUeZ3VdcSRuc9X7tYM2yJ 4xLNCepuOmd3HgeeDsx4d 7rSWgyA1otOIjd4GfBIMc kIPknC6eIUVtdd8= Comment (test code = y5mdnBCqUNBjzVU7WZOcM 9835) DDnm7ehr2GbmVDmqMVfSE tmzFJscaRojb93tXL2sB6 2JP0uMCUzQrY0BEJdllF6 Ljs4XIXeMTWxvENxZ126g 2hwv1qhkrEurXM7aNixPO GsvdjiSlO2VMmeVAMvljd zDMj8EXdvJIGxjLN6DVJr tGZeQ0EkNWRtVY3ijyv7J GD5FFllYFIpUnT7INFudO YkOZFlvRlmJIjoi077HGK 3ZcPzPXIymhTjcFxvmY5t CvRfLZRTfBEpL3StoIVmq H8gozQfcjAiSWKvrBkymo C5TCKuV53upETpVcY0v7T 6ZDXgg1OlUJYlOVbdzlvc oDlnRJXxk3VmIDMgMOppd 8Cjtv5ixRSziR== Retained/Biomarker u4zstFJpWHQwaTV8UXDjV Testing (test code = FNls8pwj5BybFDnbWQvUH 9838) szdCZrjtLfno31rXG8pX3 5TF7pXIHsYoQ3JZHoswY1 Hhx6SFTkTGCkrDAoA213d 7hom8uwouAbyQM5bWqgHU IqtsjqDaV4ZBxpPOBgmqt bAKo2REazNELozGD5KKAj sCXeB9YzQEYsDX5dcis5H AN2QAhaAPKpUhK8EAElcJ BuXUOmqHzuRSfhs662BOH 9ScTjPKTqdmWgtOntcG9l ZnMyMCBTUjogNiBTLCAyI ENCIFxwYXJ9 Informational Points e7qopYZfCUMviGLdFcNmK (test code = 9836) VAjLPNfu7lmVOGfnJNpUr EwMzNcZnRuYmpcdWMxXGR nCcOlq1kca130eUWps4cu DELxPlA0rCPoXNVrySYwL 741YBKoDQokd2mmw7GeKU NtoDYmw2K7WRWQLPjiSAH PHFi5v6xvZsDpYeX3aDUq WZprG9dlqbVwjVZnDVLyM Gd2eH25NJPrxJ1xkHEvAJ iofjEmUkP1WJnjABJcNeS 9YGRtyJPlSNPqY3wxMKWt PYmuRQKlNQyojZDtPEW2w Kzmm8J1nYXgyFRuxTqcRy CpDaYdMkDRy4QfFBl7rVq uK8CzNMClZuN0dSYvICXt LXiwSRWhVTEgsdA9qH53Y CubysZ9vTBok2Its54dx7 47qY6ccQNbKGN4OZWuVFE ioAOgYSGnWQI3HZGhjHXz O7vkLLOrKX9psyltXHeeP OzhMLDqrBA4EWLjuJQpS1 BtUYNfOKskCNQrifg4JvU mYa8kpEVyrQlqHOmuf3mu h8uebXJwUza3FZKcVvFfE cmfNIgon4Qcs6vmEISkzv 0vBZP4mUMhqLbzz3Q1lLD xXGRudGJsbnNiZGJcZmV0 CWnpGF8tli37NJGaGLF3g n7ucWLehFfzzrZksALsLX sxO9QqVBCmw311RNOwY2V zXIIhg8J7ogWdSaVzPRZv lJL1llN6ABWoJWi5cMBto wD5wdTliXCdR6iawY6sPN TjOY1pawfcn3yqRNgvYCy oEPSvnUF1qhL7SWDstSWn Z2ApoT8nNEVpHYfxSMOll yq5SlLrGv4viKNriIwgFD xzYmtwYWdlXHBnbmNvbnR ccGduZGVjXHBsYWluXHBs YWluXGYwXGZzMjRccWxcc ZahjX7pVeQaGcFeZPgcEK 1uKJFwB1wzoHYiKDAwVLV uJ0zbAaUilU0gqJyaNXjl nsR9LDuwM31sRSO8VTB2x yByZXBvcnRlZCBoZXJlIG 5lmFMnIGLjKFUbVN3tMSM 2ZWxvcGVkIGFuZCBwZXJm n8UcON4pYBXnuENvWIQ6U NUsh7JgJ4FhYRQ4RBKhxT 5lZCBieSBVVCBNRCBBbmR bpfRienCYHVBmo7eoJ5wk SI7yZXxmAf2dRIJasdfbQ WVkaWNpbmUuIFRoZXNlIH Zci4UpEWbegmJtks32GBQ rFI4nd4JeV6wxqGSdqDx4 GQSgEMMxXHHbs7EfHBVvy a97NMGeZqxpfVgvWMNbTq 6oGw3wFWWwnkJpGQA8ToB ONR5qnzbuiPPhoPnpki3m XHBsYWluXGYyXGZzMjJcb GFuZzEwMzNcaGljaFxmMl yaZsRzASNzUEyrJ8vpYrN cZnMyMlxwYXJ9 [facility] Apple SpringsCytology Image-Guided FNA Aatzumqqmacwdo0049-65-42 21:47:58 Test Item Value Reference Range Interpretation Comments Gross Description (test f0evkQTbZNSavZAXCXufO code = [id number]) TappaDfWRCrpXSgR0Yjoz vhQSttYS1rZK5ufAxvrLY ggILrPO6HBTUwGwCkMYMl cGVydzEyMjQwXHBhcGVya BR3FJUvDM1eeshpPVezFO lxHTWzciP8QKNbvKIwA9I zOEBuTA3okigwMZL9TRgx lY2hxrHQXdlvIx0mmYCoz HtcZjFcZmNoYXJzZXQwXG AvvHdtYIEhKQa0dT2BAhe nS99xx9W5Apx3TXXvLEBr T5VlRG0tAPEhhJTdF91KZ bkaUDS0RXKTWdzoCPBkAW 8Ay6cfYAPmdWWpIDD4UBj rcHHjEEQcOMWvIOn3VJZd HNucoDBkHV9miHvlQvkpn Jmrh0QzsJShZAjhXACwVC QeSSxyFNRzSF1CZuHxVKV vFdN7JvHkFCk1HQy5YG0J UyAiICAgNTEyMzcwMCIgO Tk4YOsqUF1VUYCuCHU1SN Y0WWPuRUEsVnWqMNd3UKL gXFxmIEFyaWFsIFxcZnMg MTAgXFxmYiBcXGZsIFxcb sL9YVHsZQwzHMCfXeJmNL BBOlxwYXIgDQpccGxhaW5 uAGXzC20at1SAd8NcDP1E XUw7glVqazxdgB9sDPJat kJtTCyuvYApN5ywM8TcDQ EiFnIvP4ExG2cpSO5bJNF nh1U4rqBhXtygVAGjEWxq IERpZmYgUXVpazsgMyBQY ELuN6XpbV5iM8ibVSQoLM BhciANCjUgbWwsIFxwcm9 2ERQ4t6uedXKzRDqzXjzl fURdrkB9TPdALDCZCQlDV aDzGE9lOWiCI3EGJNsXSk alVDN5FJgmoKY8b9txnKF ku2t5PSesXVX7xFTctPgh fNc0BTFub5MteSSaaMEri GYfjUW6TSRqDEvzn8efMF QwQFrir2KlCQzXIHRVQY6 CNM1atIE1J0qEVQIPW9xW iVZ0b9tteLSce7g5JCmbF CE6eUVpq46bxIjzGpcmyL R1HWszQlriaZ8qmKBLLVM EKabXIiojxjWkOS9CNClE OG1IdPO4o4dumGHeu4z9J XgyPXJ4fWrbdEHxuwfeeT NbxStiur90UNS9KCCvFCt mczIwICBmbHVpZHtcZmll hSG2EDxdTqgxcX2dwJXFU MFMKytFHceuelUpZD0YGB MAPD1GpYP2YzFnkIP3JP6 1NICaDVVuhWDjYKbhL741 DWHbMHksNEb3ouJlSWDkT GoagaJfZRQdksPSOT3YLI IkmzDSKySiG2XsmRKIeQ1 qi9nvHCQrPCxSXYJsJ0Jj vVBcAXmxW9ZiQFanWEIjt i9nhLqxOoGfeEIgjFSuqR xtDvU0NMRmTCbst0afJRN iOBuyv2VnWSuBRHVLNI7P UH9mbSZ4QEpOW4CEA2qEj SWrRKqfnVA7ZB0CWMnUAD LVtPV3vEbqjMe0a9xumEL wf0o6QZbbWJX1xCT3IsH8 VbRop6hijRJjKRmiExfxq SZwbcT3ZTzIGDBMWLhTIl AdMG1kWBwHZdyFFmP8TOP gGcR2S0eDA3LOLRMHYWQ2 HBl4vGU3zR37TLNuWQFwy OTyAVgfP157ATBgDTtoPU u7hxCdVXBrWfEvABQsQDP ey6VnM4G6ZTSeRSenu7oe THVuGPsvd8YpQImYJOANH Z0MBX1dvYP3AWlMF0UNK8 xWxYqutJX6Ar5GgIY1nEp brOl1p5aydJDjl0t2VKcr CCY2jBP4IDDtNK18RCEdH Mtsg6sbYPOfTYsed1DuOH kKKODTZY0YEW0pzVS7JEy WU3BMPJg7Hax3oH6PE3qe lJe5MMa8qSduSjyciuQlt MSiQeLBaA3vuNaazZ4vgR KfK3ecW8TpDHKaDyJoZDz rLJZvEPigsEZbPC0TG0h1 SUbaUm3jTU6uRPBnmiVNB wllZxKzX3WuQ0uzGF0cGL YrjPKvI3udz8YmPTQniiX bsq0lGXKuqGQBFrROVXI1 kM0awkzaL1QmGLLOCGlvD PiimuBUTWYXRMtYB5GoJK SWKXGEEBLbOyCKPL7tFkI 4QoU6GB46ExvyNFGSQBNR HBlLUN8JZDUKWDQOZF3EQ wXxI2cLWKOFIiFcCBDJAL ZWZNTqFmSATX4tFjx8Sji bk4I8W7rHJCRMKmEfCOWY WCUMSFFaNY5QMIZNKODBZ V4ZFDUJM09MDFNUXWSEK2 ZYO4lVVVZnk4JptQxkHeS 1GpPfUP4wAQeFY5QFO0gF ZMMgUWCDOCZSLWFbGR6GI ZtTHI0KMBZsZXPWJZQIOT PcLiFLDE4jIZdHAI8HIJR gYFIKRNNWJARsNJ8UQFSW IN8NJBEELMARL30GOIQGD ULAD5KRM8eBAXGSUDMYFm JCZmQSPF2GBQPDZNHMMC7 FTkQNClxlcGljTmVzdERv AlYahzD8ZZElcPHsUHS2E M1xHUYfgqxrVWVeFYOlIQ Y4DKpnxK99yKAxHEQsKZN ccGFyfVxwbGFpbiANClxz xB9xLlGyb0wfaAk6HRNDP jfizGXvkeqnqiY0LQUyx0 jyzCuic3IivDZnBZ5ftEz ptQ7sOmNwZfASYu6= Immediate Assessment Adequate cellularity (test code = 9837) Major Classification NFMC/benign (test code = 9839) Diagnosis (test code = i3yceRYoKBHczLV4EQOsV 34) BKew6lkz5KthPDsnQSlZR uegXRgvgGfjt82fCX4vT9 3VT3jYZHfZmA4LJUfisZ4 Lnk7SQBnCYEikYNzM147p 8xhb9ganaYesDB3DZQhGC LjO8ZcLY1fKQGzoOQhR99 cwUBjZAB3XZWiWFVhyDAz CKLaIJY3RVZzlSOoI2wqW DVoFF1mwrsxQUqwQVsbQB QjtLC5PVNzeMLoP6EaZSK sDZbiDKToiov4QzIjVt2a iWBacWlpBNijS1xymQ3jX cQ2SYykT2ammO3pDRc0HY sxMHCflUV5ofT1FBYdoXA vS7LsgJ5yUWNkFM9uour3 x1vlXJN2BPjnXYVqMjN2l qR8HKWgtTFbSRvpnNMxxn xmczIwXGNmMSBBLiBMeW1 doRCdf8BtHNVrQMDtcBxb jDrsl7BzLZAuf9MucX33I KRjo1QcptjwCYAXwltsPi luZSBuZWVkbGUgYXNwaXJ hdGlvbjpccGFyXHRhYlxw UUSfhXf4HxNnlQpiCyYfO CYkNVYSpoYsOKVnd2EemG sxJYNgbdZuub2aZHYiMJT uzZimfXCzGCJvjvDTg3j3 lV8yyBwqjZRbaRadmEixj GRfF0ZlaKQzt9P9qII1hD 2lPNCwkgWms8VdljBbw0b 1oWFscV9hhOKtb1MhIYLb rPQuhI2wMAZuku4= Comment (test code = d0pjrCQuIQZauKP3YCMhH 9835) NZdw9imk3ViiGYkaEEnVW csrELgrpYzmq90gTE1fA6 6UB6nLBOoMiP1ZSAlvgH3 Wal4VUQwFVWjuGOnW631w 3heo1gzbzHsiDP9aQjmXM OqarlhDvY9PFkoEZEqedy lIOj9BJdyHOFdsZD4SANb uEBaQ3VdZQIpIQ8qkdu1R ED9VJniMKYkKpG1WDJfmU UqJFXoxKfiRJxhu991SFQ 0GgVaQGCoecGmnJpgpA3i YbFcOKDPlAQqU0EqoCPkf Q5uezNrifUhVMPrjHkonu B5WTWaP07rxLPpPlS5e1T 9ZXJki6HhZPSxQSvxdvva qPgoIZGgw7CiASTvSHiif 3Cvcu8xdWSstY== Retained/Biomarker v5zvmHKzAZHuyOJ3FRNqL Testing (test code = HTxo7kjf1LapVInqDAyFV 9838) scvDEorqUvxz27uIH7yJ8 7CA4vXTNiNfG3GVDximE9 Wtj1LTUwTWGmjKQbR208h 3vlp0yerbHynXV4sCyvFL TbrxjtRrY6JImhZZSjpii qRKh8QQzhCGSyqOC1KXPf yEWnU1QlFVDmTB2rpga6K NT1YMbgECQsCnU4ZFImiF EzCBKwiAwzXBeau699UMZ 3WnDqMTXwmnMimRkxlP8w ZnMyMCBTUjogNiBTLCAyI ENCIFxwYXJ9 Informational Points e0kggNXdTYJpmIKzLtIbJ (test code = 9836) GGcKUGxb3doKAWmjDXaUs EwMzNcZnRuYmpcdWMxXGR fHhFyv4rdt868gFNpt0ma DIEqNxW6zJRhCBDezHJhP 892GPPaWEozm3yvt9LlPF HykJAyz8R5LNNIAUawLFR JWAy1j6tyPeYyYiE5xOPa KOmtO0rxlwYvmQRqJEJoR It2xI99WANesX0niVCrQE lsqjRrAoM5UVqzHDZmIxA 9DRVvpJUlWBScN5jaUECn OKkxEBUaTZdaaSXkETI7o Nyip5U7tXArtPMyrJdcZn BgHuKkCyOVx9BrADm9iIl cQ2SjEZPcFlD3gJEbTBYj LObkTIEaYDQnxcN4tA71J MqhozP0kWNaz0Rqp59zg7 33xQ2hhIYwVWW4ZBXtJMN biJDlNOEpCWQ4MJAznVXt Y4xxEHPiQM9mlnztUKaoN AfbFKXgrHF9NEBsdCOtH0 FuNMYbLGjxMEGuebc8NjZ uXa7nxOCutGajFWhgf8sn i9bcaIMnUyp1GPGiOyEiE lxtZMrcc9Qzt3muDVHehu 6wZNG2sXUhbNytf4S3lOJ xXGRudGJsbnNiZGJcZmV0 POhjOH1pzp40AIYvVTL8o y8srNMujIymtuMruFYgCK ptW3JeAJCdv986YNCgR5U pRGZyj0T0tuMuVgNaFVYy oFQ3pzH0CERwRKp5cWZyn iZ5ieXljXRjT2yxgZ6fNB YgRB0bfelws4qwEKfrTCb nVCSdvKK4bqC0YDGlqZSe R7CplE0sFMErGGyzNXDiv lu2StKkAd0ebPIjlQyvSQ xzYmtwYWdlXHBnbmNvbnR ccGduZGVjXHBsYWluXHBs YWluXGYwXGZzMjRccWxcc ZlfjQ2vIwPsZqRtXEyqAO 6kAZIcI7dbbBHpZJVjTHI eN0mfYwArdZ7qoNemHHuj ciG9TWftX88jXZD1ZNO8t yByZXBvcnRlZCBoZXJlIG 5klMVaMMNoNWHcDL1qBEW 2ZWxvcGVkIGFuZCBwZXJm y6HwVK2mFCKdsFMbHJR9W IRll7DuK2UaSRG5BJSbcP 5lZCBieSBVVCBNRCBBbmR rvnMifqYEEMHlw1xpC1on ZR2dKOluMq8jEGTzeeudP WVkaWNpbmUuIFRoZXNlIH Axz4WeTRkcgoImwk34PIK bHA3md5QoL5lnhQNtxUo6 ZPPfZDFrPYKbv4GnYKLux e53EKTtWrgrxMgtMYJpVz 3qDv3pUTZvfnTdQJF3FlG KFN7qobuugKNycOdyzj8e XHBsYWluXGYyXGZzMjJcb GFuZzEwMzNcaGljaFxmMl osAyIwJCJsKXduK1xuDyK cZnMyMlxwYXJ9 [facility] Cancer Apple SpringsMD COVID-19 (UTE-CoV-2) PCR Gippkdgmvdzq7568-39-27 11:21:43 Test Item Value Reference Interpretation Comments Range COVID19 SARS Pre-Out of OR Procedure Indication (test code = 55801) COVID19 SARS Result Not Detected Not Detected (test code = 99926-3) COVID19 SARS SARS-CoV-2 NOT Detected. Interpretation (test Reference Range: Not code = 92718) Detected Methodology: The Magton RealTime SARS-CoV-2 assay is a qualitative real-time reverse humanities instructor polymerase chain reaction (laborer vineyard-PCR) test to detect RNA from SARS-CoV-2 in nasal, nasopharyngeal and oropharyngeal swabs from patients with signs and symptoms of infection who are suspected of COVID-19 by their health care provider. The Haney RealTime SARS-CoV-2 performed on the Genticel000 System is a dual target assay with [...] CLIA-certified, high-complexity Molecular Diagnostics Laboratory (MDL) at [facility] under the Food and Drug Administration (FDA) s Emergency Use Authorization. Factsheet for patients: https://www.mdanderson.org/ AbbottFactSheetPatientsFact sheet for healthcare providers: https://www.mdanderson.org/ AbbottFactSheetHCP Test performed by:[facility] Molecular Diagnostic [address] [place], [place] [address] [place], [place] [address]MD COVID-19 (UTE-CoV-2) PCR [id number] 11:21:43 Test Item Value Reference Interpretation Comments Range COVID19 SARS Pre-Out of OR Procedure Indication (test code = 58541) COVID19 SARS Result Not Detected Not Detected (test code = 29502-2) COVID19 SARS SARS-CoV-2 NOT Detected. Interpretation (test Reference Range: Not code = 18230) Detected Methodology: The Haney RealTime SARS-CoV-2 assay is a qualitative real-time reverse humanities instructor polymerase chain reaction (laborer vineyard-PCR) test to detect RNA from SARS-CoV-2 in nasal, nasopharyngeal and oropharyngeal swabs from patients with signs and symptoms of infection who are suspected of COVID-19 by their health care provider. The Haney RealTime SARS-CoV-2 performed on the Magton m2000 System is a dual target assay with [...] CLIA-certified, high-complexity Molecular Diagnostics Laboratory (MDL) at [facility] under the Food and Drug Administration (FDA) s Emergency Use Authorization. Factsheet for patients: https://www.mdanderson.org/ AbbottFactSheetPatientsFact sheet for healthcare providers: https://www.[facility].org/ AbbottFactSheetHCP Test performed by:[facility] Molecular Diagnostic [address] [place] [address] [facility] HospitalCoccidioides [id number] 17:05:38 Test Item Value Reference Range Interpretation Comments Cocci Comp Fix-[place] Negative Negative (test code = 5096-3) Cocci IgG-[place] Negative Negative (test code = 03368-7) Cocci IgM-[place] Negative Negative A negative co mplement (test code = fixation and 64970-0) immunodiffusion (CompF/ImmD iff) result knowles s not exclude the panda gnosis ofcoccidioidomy cosis. Repeat testing by CompF/ImmDiff i n 2-3weeks if clinically i ndicated. Test Performed by:[facility] [employer] [address] [place], [place] [address]Fhf Director: Vladislav Cannon M.D. Ph. D.; CLIA# [id number] [facility] HospitalCoccidioides [id number] 17:05:38 Test Item Value Reference Range Interpretation Comments Cocci Comp Fix-Cano Negative Negative (test code = 5096-3) Cocci IgG-Cano Negative Negative (test code = 53730-9) Cocci IgM-[place] Negative Negative A negative co mplement (test code = fixation and 07666-5) immunodiffusion (CompF/ImmD iff) result knowles s not exclude the panda gnosis ofcoccidioidomy cosis. Repeat testing by CompF/ImmDiff i n 2-3weeks if clinically i ndicated. Test Performed by:[facility] [employer] [address] [employer] [address] [place], [place] [address]Fdl Director: Vladislav Cannon M.D. Ph. D.; CLIA# [id number] [facility] HospitalHistoplasma Ab Bcjbyq6288-01-36 20:14:06 Test Item Value Reference Range Interpretation Comments Histo Immuno Negative Negative A negative comp lement Ab-[place] (test code fixation and = 02805-7) immunodiffusion (CF/ID)result d oes not exclude the panda gnosis of histoplasmosis. Repeat testing by CF/I D in 1-2 weeks if clinicallyindic ated. Test Performed by:[facility] [employer] [facility] [place] [place], [place] [address]Zxn Direct or: Kushal Cannon M.D. Ph.D.; CLIA# [id number] Histo Mycel Negative Negative Ab-Cano (test code = 34119-2) Histo Yeast Negative Negative Ab-Cano (test code = 84588-0) [facility] HospitalHistoplasma Ab Egrtrl4966-87-54 20:14:06 Test Item Value Reference Range Interpretation Comments Histo Immuno Negative Negative A negative comp lement Ab-Cano (test code fixation and = 42431-6) immunodiffusion (CF/ID)result d oes not exclude the panda gnosis of histoplasmosis. Repeat testing by CF/I D in 1-2 weeks if clinicallyindic ated. Test Performed by:[facility] [employer] [place] [address]Shr Direct or: Kushal Cannon M.D. Ph.D.; CLIA# [id number] Histo Mycel Negative Negative Ab-[place] (test code = 45575-0) Histo Yeast Negative Negative Ab-[place] (test code = 65843-5) [facility] Cancer Apple SpringsT-spot Xddyfvbnjyqq5333-33-86 17:36:08 Test Item Value Reference Range Interpretation [...] (test by:Lab Mnemonic : code = 9399) [id number] TB, [id number], [place] [id number] BAYRON TIRADO MD,PHD Tspot TB NIL Passed Cont (test code = 9396) RHIANNA (test If scheduling this code = RHIANNA) lab at one of the following locations, it can only be collected on Sunday, Sunday, and Sunday due to collection/process ing restrictions:Pola brizuela [facility] DIA LAB [facility] CTRCABI - [facility] DIA LAB CTR [facility] Cancer Apple SpringsT-spot Mgkkdpatwrji9820-34-39 17:36:08 Test Item Value Reference Range Interpretation [...] (test by:Lab Mnemonic : code = 9399) [id number] DIAGNO STICS TB, [id number] [facility], [place] [id number] BAYRON TIRADO MD,PHD Tspot TB NIL Passed Cont (test code = 9396) RHIANNA (test If scheduling this code = RHIANNA) lab at one of the following locations, it can only be collected on Sunday, Sunday, and Sunday due to collection/process ing restrictions:[facility] LAB [facility]SL D[facility] CTRDI [facility] CTR [facility] Cancer Apple SpringsComplete PFT ([place], DLCO, LV) 2021-12-01 00:00:00 Test [...] 9530) Lab Interpretation (test Abnormal code = 60459-9) [facility] Cancer Apple SpringsComplete PFT ([place], DLCO, LV) 2021-12-01 00:00:00 Test Item Value [...] mated message] (test code = 9515) [employer] [place] which generated this result transmitted ref erence [...] 9530) Lab Interpretation (test Abnormal code = 88619-1) [facility] 2021-11-30 21:02:28Crypto Ag, Serum PRReviewed and Electronically signed by Pathologist:RICKEY SANTANA MD #[id number] [facility]Un[facility] HoustonCryptococcal Ag Serum Path [id number] 21:02:28Crypto Ag, Serum PRReviewed and Electronically signed by Pathologist:RICKEY SANTANA MD #[id number] [facility]Un[facility] HoustonCryptococcal Antigen, [id number] 16:40:56 Test Item Value Reference Range Interpretation Comments Cryptococcal Ag Screen Serum Interp Negative Negative (test code = 81983-1) [facility] Serum 2021-11-30 16:40:56 Test Item Value Reference Range Interpretation Comments Cryptococcal Ag Screen Serum Interp Negative Negative (test code = 20530-2) [facility] HospitalHepatitis [facility] Total Ig Core Ab (SCREENING) (anti-HBc total Ig; HBcAb total Ig)2021-11-30 15:37:34 Test Item Value Reference Range Interpretation Comments HBcAb. (test code = 5742) Non Reactive Non Reactive [facility] HospitalHep[facility] Total Ig Core Ab (SCREENING) (anti-HBc total Ig; HBcAb total Ig)2021-11-30 15:37:34 Test Item Value Reference Range Interpretation Comments HBcAb. (test code = 5742) Non Reactive Non Reactive [facility]
[2022-04-23] MEDS ORDERED: ONDANSETRON 4 MG/2 ML VIAL ONE (16:04)
[2022-04-23] MEDS ORDERED: NA CHLORIDE 0.9% 1,000 ML ONE (16:04)
[2022-04-23 16:13] LABS: Absolute Lymphocytes (CBC) 2.5 K/uL (0.7-4.9); Hematocrit 38.1 % (36.0-45.0); Lymphocytes % 36.6 % (15.3-44.8); MCV 93.1 fL (80-100); MPV 6.5 fL (7.6-11.3)
[2022-04-23 16:22] LABS: Protime INR 1.52
[2022-04-23 16:34] LABS: Magnesium 2.2 mg/dL (1.8-2.4); Potassium 3.3 mmol/L (3.5-5.1); Troponin High Sensitivity 17.2 pg/mL (<58.9)
--- NOTE | 2022-04-23 17:41 | RAD REPORT ---
EXAM DESCRIPTION: RAD - Chest Single View - 04/23/2022 5:35 pm CLINICAL HISTORY: DYSPNEA Chest pain. COMPARISON: Chest Pa And Lat (2 Views) dated 03/04/2022; Chest Pa And Lat (2 Views) dated 03/03/2022; Chest Single View dated 08/18/2020; Chest Pa And Lat (2 Views) dated 09/20/2017; Thorax Wo Con dated 03/04 FINDINGS: Portable technique limits examination quality. The lungs appear emphysematous. Small area of nodularity in the left apex appears smaller than on the comparative studies. The lungs are clear of acute infiltrate. The heart is mildly enlarged.
--- NOTE | 2022-04-23 18:43 | EDPHYS ---
Physician Documentation [facility] Name: Brianne Jennings Age: 76 yrs Sex: Female : 1945 Arrival Date: 04/23/2022 Time: 14:36 Bed 15 Private MD: ED Physician Ceasar Sanders HPI: 04/23 15:29 This 76 yrs old Female presents to ER via Ambulatory with complaints of Nausea/Vomiting.ms3 15:29 The patient presents to the emergency department with nausea, vomiting. Onset: The ms3 symptoms/episode began/occurred yesterday. Possible causes: chemo. The symptoms are aggravated by nothing. The symptoms are alleviated by nothing. Associated signs and symptoms: Pertinent positives: chest pain, shortness of breath. Severity of symptoms: At their worst the symptoms were moderate in the emergency department the symptoms are unchanged. 76-year-old female with past medical history of lung cancer presents after taking chemotherapy on Sunday. Patient states she typically feels ill 3 to 4 days after taking chemotherapy. Patient states her symptoms began yesterdaynausea, shortness of breath. Patient denies alleviating or inciting factors.. Historical: - Allergies: 14:44 Clindamycin; hb - PMHx: 14:44 acid reflux; Arthritis; COPD; Hypertension; hb - Immunization history:: Client reports receiving the 2nd dose of the Covid vaccine. - Social history:: Smoking status: Patient denies any tobacco usage or history of. ROS: 15:29 Constitutional: Negative for fever, and chills. Neck: Negative for injury, pain, and ms3 swelling. 15:29 Skin: Negative for injury, rash, and discoloration. 15:29 Cardiovascular: Positive for chest pain. 15:29 Respiratory: Positive for shortness of breath. 15:29 All other systems are negative. Exam: 15:29 Constitutional: This is a well developed, well nourished patient who is awake, alert, ms3 and in no acute distress. Head/Face: Normocephalic, atraumatic. Neck: Trachea midline, no cervical lymphadenopathy. Supple, full range of motion without nuchal rigidity, or vertebral point tenderness. No Meningismus. Chest/axilla: Normal chest wall appearance and motion. Nontender with no deformity. Cardiovascular: Regular rate and rhythm with a normal S1 and S2. No gallops, murmurs, or rubs. Normal PMI, no JVD. No pulse deficits. Respiratory: Lungs have equal breath sounds bilaterally, clear to auscultation and percussion. No rales, rhonchi or wheezes noted. No increased work of breathing, no retractions or nasal flaring. Abdomen/GI: Soft, non-tender, with normal bowel sounds. No distension or tympany. No guarding or rebound. No evidence of tenderness throughout. Back: No spinal tenderness. No costovertebral tenderness. Full range of motion. Skin: Warm, dry with normal turgor. Normal color with no rashes, no lesions, and no evidence of cellulitis. Psych: Awake, alert, with orientation to person, place and time. Behavior, mood, and affect are within normal limits. 16:44 ECG was reviewed by the Attending Physician. ms3 Vital Signs: 14:41 BP 130 / 93; Pulse 83; Resp 16; Temp 98.1; Pulse Ox 100% on R/A; Weight 43.09 kg; hb Height 5 ft. 2 in. (157.48 cm); Pain 3/10; 16:05 BP 137 / 83; Pulse 61; Resp 18; Temp 99.2; Pulse Ox 100% on R/A; Pain 2/10; db 17:00 BP 139 / 66; Pulse 48; Resp 18; Pulse Ox 100% ; db 18:56 BP 116 / 75; Pulse 55; Resp 16; Pulse Ox 100% on R/A; db 14:41 Body Mass Index 17.38 (43.09 kg, 157.48 cm) hb MDM: 15:27 Patient medically screened. ms3 15:29 Differential diagnosis: Side effects of chemo vs PE vs ACS. ms3 18:56 Data reviewed: vital signs, nurses notes, lab test result(s), EKG, radiologic studies, ms3 and as a result, I will discharge patient. Counseling: I had a detailed discussion with the patient and/or guardian regarding: the historical points, exam findings, and any diagnostic results supporting the discharge/admit diagnosis, lab results, radiology results, the need for outpatient follow up, to return to the emergency department if symptoms worsen or persist or if there are any questions or concerns that arise at home. ED course: Discussed labs and imaging with patient. All questions were answered. Return precautions discussed include worsening symptoms, or any other concerns. On reevaluation patient is improved, alert and oriented x4, in no apparent distress, nontoxic.. 04/23 15:28 Order name: Basic Metabolic Panel; Complete Time: 16:44 ms3 04/23 15:28 Order name: CBC with Diff; Complete Time: 16:44 ms3 04/23 15:28 Order name: D-Dimer; Complete Time: 16:44 ms3 04/23 15:28 Order name: Magnesium; Complete Time: 16:44 ms3 04/23 15:28 Order name: PT-INR; Complete Time: 16:44 ms3 04/23 15:28 Order name: Troponin HS; Complete Time: 16:44 ms3 04/23 15:28 Order name: XRAY Chest (1 view); Complete Time: 17:46 ms3 04/23 15:28 Order name: EKG; Complete Time: 15:29 ms3 04/23 15:28 Order name: Cardiac monitoring; Complete Time: 16:19 ms3 04/23 15:28 Order name: EKG - Nurse/Tech; Complete Time: 17:18 ms3 04/23 15:28 Order name: IV Saline Lock; Complete Time: 16:06 ms3 04/23 15:28 Order name: Labs collected and sent; Complete Time: 16:06 ms3 04/23 15:28 Order name: O2 Per Protocol; Complete Time: 16:19 ms3 04/23 15:28 Order name: O2 Sat Monitoring; Complete Time: 16:19 ms3 EC:44 Rate is 49 beats/min. Rhythm is regular. QRS Printer is Normal. MS interval is normal. QRS ms3 interval is normal. Clinical impression: Sinus bradycardia. Interpreted by me. Reviewed by me. Administered Medications: 16:10 Drug: Zofran (Ondansetron) 4 mg Route: IVP; Site: left forearm; db 17:19 Follow up: Response: No adverse reaction db 16:10 Drug: NS 0.9% 1000 ml Route: IV; Rate: 1000 ml; Site: left forearm; db 17:18 Follow up: Response: No adverse reaction; IV Status: Completed infusion; IV Intake: db 1000ml Disposition Summary: 04/23/22 18:42 Discharge Ordered Location: Home ms3 Condition: Stable ms3 Diagnosis - Nausea ms3 - Muscle weakness (generalized) ms3 Followup: ms3 - With: Private Physician - When: 2 - 3 days - Reason: Recheck today's complaints Discharge Instructions: - Discharge Summary Sheet ms3 - Nausea, Adult, [id number] ms3 Forms: - Medication Reconciliation Form ms3 - Thank You Letter ms3 - Antibiotic Education ms3 - Prescription Opioid Use ms3 Signatures: Dispatcher [employer] EDMS Aline Quintanilla, RN RN Ceasar Mcfarland DO DO ms3 Julia Peralta, RN RN db
--- NOTE | 2022-04-23 18:43 | ER ---
Nurse's Notes [facility] Name: Brianne Jennings Age: 76 yrs Sex: Female : 1945 Arrival Date: 04/23/2022 Time: 14:36 Bed 15 Private MD: Diagnosis: Nausea;Muscle weakness (generalized) Presentation: 04/23 14:41 Chief complaint: On oral chemo for lung CA, c/o severe nausea x 4 days. Unable to hb consume any foods, tolerating very small amounts of water. Coronavirus screen: At this time, the client does not indicate any symptoms associated with coronavirus-19. Ebola Screen: No symptoms or risks identified at this time. Initial Sepsis Screen: Does the patient meet any 2 criteria? No. Patient's initial sepsis screen is negative. Does the patient have a suspected source of infection? No. Patient's initial sepsis screen is negative. Risk Assessment: Do you want to hurt yourself or someone else? Patient reports no desire to harm self or others. Onset of symptoms was April 20, 2022. 14:41 Method Of Arrival: Ambulatory hb 14:41 Acuity: LYNNE 3 hb Triage Assessment: 14:44 General: Appears in no apparent distress. Behavior is calm, cooperative. Neuro: Level hb of Consciousness is awake, alert, obeys commands, Oriented to person, place, time, situation. Cardiovascular: Patient's skin is warm and dry. Respiratory: Respiratory effort is even, unlabored, Respiratory pattern is regular, symmetrical. Historical: - Allergies: 14:44 Clindamycin; hb - PMHx: 14:44 acid reflux; Arthritis; COPD; Hypertension; hb - Immunization history:: Client reports receiving the 2nd dose of the Covid vaccine. - Social history:: Smoking status: Patient denies any tobacco usage or history of. Screenin:19 Abuse screen: Denies threats or abuse. Denies injuries from another. Nutritional db screening: No deficits noted. Tuberculosis screening: No symptoms or risk factors identified. Fall Risk None identified. No fall in past 12 months (0 pts). No secondary diagnosis (0 pts). IV access (20 points). Ambulatory Aid- None/Bed Rest/Nurse Assist (0 pts). Gait- Normal/Bed Rest/Wheelchair (0 pts) Mental Status- Oriented to own ability (0 pts). Total Nixon Fall Scale indicates No Risk (0-24 pts). Assessment: 16:16 Reassessment: Patient appears in no apparent distress at this time. Patient is alert, db oriented x 3, equal unlabored respirations, skin warm/dry/pink. patient states has abdominal pain, and middle lower chest pain, pressure, with nausea worse today. hx of small cell carcinoma lung cancer. General: Appears in no apparent distress. comfortable, Behavior is calm, cooperative, appropriate for age. Pain: Complains of pain in chest and abdomen Pain began 1 day ago. Neuro: No deficits noted. Level of Consciousness is awake, alert, obeys commands, Oriented to person, place, time, situation, Appropriate for age Speech is normal, Facial symmetry appears normal. Cardiovascular: No deficits noted. Respiratory: No deficits noted. Airway is patent Respiratory effort is even, unlabored, Respiratory pattern is regular, symmetrical. GI: Abdomen is flat, non-distended, Reports nausea, Patient currently denies vomiting. : No deficits noted. No signs and/or symptoms were reported regarding the genitourinary system. EENT: No deficits noted. No signs and/or symptoms were reported regarding the EENT system. Derm: No deficits noted. No signs and/or symptoms reported regarding the dermatologic system. Musculoskeletal: No deficits noted. No signs and/or symptoms reported regarding the musculoskeletal system. 18:56 Reassessment: Patient appears in no apparent distress at this time. Patient and/or db family updated on plan of care and expected duration. Pain level reassessed. Patient is alert, oriented x 3, equal unlabored respirations, skin warm/dry/pink. Patient states feeling better. Patient states symptoms have improved. Vital Signs: 14:41 BP 130 / 93; Pulse 83; Resp 16; Temp 98.1; Pulse Ox 100% on R/A; Weight 43.09 kg; hb Height 5 ft. 2 in. (157.48 cm); Pain 3/10; 16:05 BP 137 / 83; Pulse 61; Resp 18; Temp 99.2; Pulse Ox 100% on R/A; Pain 2/10; db 17:00 BP 139 / 66; Pulse 48; Resp 18; Pulse Ox 100% ; db 18:56 BP 116 / 75; Pulse 55; Resp 16; Pulse Ox 100% on R/A; db 14:41 Body Mass Index 17.38 (43.09 kg, 157.48 cm) ED Course: 14:36 Patient arrived in ED. rg4 14:44 Triage completed. hb 14:44 Arm band placed on. hb 15:18 Ceasar Sanders DO is Attending Physician. ms3 15:40 Julia Peralta, RN is Primary Nurse. db 16:05 Client placed on continuous cardiac and pulse oximetry monitoring. NIBP monitoring db applied. Warm blanket given. 16:06 Inserted saline lock: 20 gauge in left forearm, using aseptic technique. Blood zm collected. 16:06 Basic Metabolic Panel Sent. zm 16:06 CBC with Diff Sent. zm 16:06 D-Dimer Sent. zm 16:06 Magnesium Sent. zm 16:06 PT-INR Sent. zm 16:06 Troponin HS Sent. zm 16:19 Patient has correct armband on for positive identification. db 17:36 XRAY Chest (1 view) In Process Unspecified. EDMS 18:56 No provider procedures requiring assistance completed. IV discontinued, intact, db bleeding controlled, No redness/swelling at site. Administered Medications: 16:10 Drug: Zofran (Ondansetron) 4 mg Route: IVP; Site: left forearm; db 17:19 Follow up: Response: No adverse reaction db 16:10 Drug: NS 0.9% 1000 ml Route: IV; Rate: 1000 ml; Site: left forearm; db 17:18 Follow up: Response: No adverse reaction; IV Status: Completed infusion; IV Intake: db 1000ml Medication: 18:56 VIS not applicable for this client. db Intake: 17:18 IV: 1000ml; Total: 1000ml. db Outcome: 18:42 Discharge ordered by . ms3 18:56 Discharged to home ambulatory. db 18:56 Condition: stable 18:56 Discharge instructions given to patient, Instructed on discharge instructions, follow up and referral plans. 18:57 Patient left the ED. db Signatures: Dispatcher [employer] EDMS Aline Quintanilla, Sola Pritchard RN rg4 Ceasar Sanders DO DO ms3 Xiomara Mijares zm Julia Peralta, RN RN db
[2022-04-23 19:26] VITALS: O2SAT 100
[2022-04-23 19:32] VITALS: TEMP 99.2
[2022-04-23 19:34] VITALS: BP 116/75
--- NOTE | 2022-04-24 12:13 | EKG ---
Test Date: 2022-04-23 Test Time: 16:39:27 Event Host: MEASUREMENT RESULTS: Intervals: Rate: 49 WI: 178 QRSD: 98 QT: 480 QTc: 433 [place]: P: 69 WI: 178 QRS: 89 T: 64 INTERPRETIVE STATEMENTS: Marked sinus bradycardia Incomplete right bundle branch block Abnormal ECG Compared to ECG 03/03/2022 20:43:01 Incomplete right bundle-branch block now present Sinus rhythm no longer present Indeterminate axis no longer present ST (T wave) deviation no longer present Possible ischemia no longer present Electronically Signed On 04-24-22 12:11:06 [employer]ODUCTION MANAGER by Baldemar Hamilton
== END 2022-04-23 18:57 | disposition home or self-care (01) ==
LOC: ER 14:31
DX: M62.81 Muscle weakness (generalized) (principal); R06.02 Shortness of breath; J44.9 Chronic obstructive pulmonary disease, unspecified; I10 Essential (primary) hypertension; Z88.3 Allergy status to other anti-infective agents
CPT/HCPCS: 96361; 93005; 85025; 80048; 36415; 83735; 85610; 85379; 84484; 71045; 96374; 99284; J7030; J2405

== ENCOUNTER 2023-01-19 12:22 | Emergency (ER) | payer OTHER ==
--- OUTSIDE RECORDS SUMMARY | 2023-01-19 12:29 | XMS REPORT | Clinical Summary ---
:[address] [facility] MD [facility] Address [address] [place] [address] Care Team Providers Name Role Phone Sheba Velez Unavailable Clay Ahumada MD Unavailable Sudeep Crouch MD Primary Care Provider [phone] Guanaco Henderson MD Unavailable [phone] 1 Allergies Active Allergy Reactions Severity Noted Date Comments Clindamycin 09/19/2017 Other reaction( s): Itching/Hives/Rash Other reaction( s): Itching/Hives/Rash Medications Medication Sig Dispensed Refills Start Date End Date Status metoprolol tartrate Take 1 tablet (50 0 08/02/2021 Active (LOPRESSOR) 50 mg mg) by mouth twice tablet daily. esomeprazole (NexIUM) Take 1 capsule (40 0 Active 40 MG capsule mg) by mouth every morning before breakfast. folic acid (FOLVITE) Take 1 tablet (400 30 tablet 2 02/24/2022 Active 400 mcg mcg) by mouth tabletIndications: daily. Adenocarcinoma, NOS of upper lobe, lung <Left> senna (SENOKOT) 8.6 mg Take 1 tablet by 0 Active tablet mouth every other day. lidocaine (LIDODERM) Place 1 patch on 30 patch 0 05/30/2022 Active 5% (700 mg/patch) the skin daily. transdermal Remove & Discard patchIndications: patch within 12 Adenocarcinoma, NOS of hours or as upper lobe, lung directed by MD. <Left> Remove old patch(es) before replacing new patch(es). Additional Information Patient taking differently: 1 patch transdermal Daily PRN, Remove & Discard patch within 12 hours or as directed by MD. Remove old patch(es) before replacing new patch(es)., Reason: Other, Informant: Self, Reported on 07/31/2022 senna-docusate (SENOKOT-S) Take 2 tablets by mouth 20 tablet 0 05/29/2022 Active 8.6 mg-50 mg 2 (two) times a day as tabletIndications: needed for constipation. Adenocarcinoma, NOS of upper lobe, lung <Left> prochlorperazine (Compazine) Take 1 tablet (5 mg) by 30 tablet 0 07/31/2022 Active 5 mg tabletIndications: mouth every 8 (eight) Adenocarcinoma, NOS of upper hours as needed for lobe, lung <Left>, Nausea nausea. Additional Information Patient not taking. Reason: Other, Reported on 09/12/2022 albuterol Inhale 3 mL (2.5 0 Act joann (PROVENTIL,VENTOLIN) 2.5 mg) by mg/3 mL (0.083%) nebulizer nebulization twice solution daily. 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 /2021 Applicable) fluticasone Inhale 1 puff by 0 10/31 02/27 D iscontinued propion-salmeteroL 232-14 mouth twice daily. /2021 (Reorder) mcg/actuation aepb fluticasone propionate Inhale 1 spray (50 0 11/28 08/21 Discontinued (FLONASE) 50 mcg/spray mcg) into each 023 (Therapy nasal spray nostril as needed. completed) calcium carbonate (CALCIUM Take 1 tablet by 0 03/20 Discontinued (Not 500 ORAL) mouth daily. Applica ble) cholecalciferol, vitamin Take 1,000 Units 0 03/20 Discontinued (Not D3, 25 mcg (1,000 unit) by mouth daily. Applicable) capsule ascorbic acid (VITAMIN C) Take 500 mg by 0 03/20 Discontinued (Not 500 mg tablet mouth daily. Judy licable) albuterol (VENTOLIN Inhale 2 puffs by 0 12/05 Discontinued HFA,PROAIR HFA) 90 mouth as needed. 3 (Therapy mcg/puff inhaler com pleted) Nicoderm CQ 21 mg/24 hr Apply 1 patch to 28 patch 0 12/14 02/07 Discontinued transdermal skin and change (R eorder) patchIndications: Nicotine patch daily as dependence directed for tobacco cessation (alternate sites). Nicorette 2 mg mini Dissolve 1 lozenge 162 lozenge 0 12/14 02/07 Discontinued lozengeIndications: (2 mg) in the (Reorder) Nicotine dependence mouth every 2 (two) hours as needed for smoking cessation. Avoid acidic beverages during, 5 min before/after use apixaban (Eliquis DVT-PE Take 2 tablets by 74 tablet 0 01/09 05/29 Discontinued Treat 30D Start) 5 mg (74 mouth twice daily /2021 (Stop Taking at tabs) tabletIndications: for 7 days, then Discharge) Adenocarcinoma of left take 1 tablet by lung mouth twice daily thereafter. apixaban (Eliquis) 5 mg Take 1 tablet (5 60 tablet 1 01/09 02/23 Discontinued tabletIndications: mg) by mouth every 022 (Reorder) Adenocarcinoma of left 12 (twelve) hours. lung Nicoderm CQ 21 mg/24 hr Apply 1 patch to 28 patch 0 02/07 05/09 Discontinued transdermal skin and change /2021 (T herapy patchIndications: Nicotine patch daily as completed) dependence directed for tobacco cessation (alternate sites). Nicorette 2 mg mini Dissolve 1 lozenge 162 lozenge 0 02/07 05/09 Discontinued lozengeIndications: (2 mg) in the /2021 (Therapy Nicotine dependence mouth every 2 completed) (two) hours as needed for smoking cessation. Avoid acidic beverages during, 5 min before/after use apixaban (Eliquis) 5 mg Take 1 tablet (5 60 tablet 1 02/23 02/27 Discontinued tabletIndications: mg) by mouth every (Reorder) Adenocarcinoma of left 12 (twelve) hours. lung dexamethasone (DECADRON) 4 Take 1 tablet (4 18 tablet 2 02/24 05/09 Discontinued mg tabletIndications: mg) by mouth twice /2021 (Therapy Adenocarcinoma, NOS of daily. Take on completed) upper lobe, lung <Left> days 2, 3, and 4 of each chemotherapy cycle ondansetron (ZOFRAN) 8 mg Take 1 tablet (8 30 tablet 3 02/24 05/09 Discontinued tabletIndications: mg) by mouth every 022 (Therapy Adenocarcinoma, NOS of 8 (eight) hours as completed) upper lobe, lung <Left> needed for nausea or vomiting. budesonide-formoterol Inhale by mouth 0 Discontinued (Not (SYMBICORT) 160-4.5 twice daily. Applicable) mcg/actuation inhaler apixaban (Eliquis) 5 mg Take 1 tablet (5 60 tablet 1 02/27 05/29 Discontinued tabletIndications: mg) by mouth every 022 (Reorder) Adenocarcinoma of left 12 (twelve) hours. lung fluticasone Inhale 1 puff by 1 each 0 02/27 05/09 D iscontinued propion-salmeteroL 232-14 mouth twice daily. (Therapy mcg/actuation comple mariah) aepbIndications: Adenocarcinoma, NOS of upper lobe, lung <Left>, Simple chronic bronchitis atorvastatin (LIPITOR) 40 Take 1 tablet (40 0 03/07 08/21 Discontinued mg tablet mg) by mouth at (The rapy bedtime. completed) baclofen (LIORESAL) 10 mg 3 (three) times a 0 03/10 09/12 Discontinued tablet day as needed. (Ther apy completed) acetaminophen-codeine 0 05/03 05/29 Discontinued (TYLENOL #3) 300 mg-30 mg /2021 (Stop Taking at tablet Discharge) promethazine (PHENERGAN) 0 05/03 05/09 Discontinued 25 mg tablet /2021 (Therap y completed) scopolamine 0 05/03 05/09 Disconti nued (TRANSDERM-SCOP) 1.5 mg /2021 (Therapy transdermal patch co mpleted) apixaban (Eliquis) 5 mg Take 1 tablet (5 60 tablet 1 05/29 07/31 Discontinued tabletIndications: mg) by mouth every 023 (Dose adjustment) Adenocarcinoma of left 12 (twelve) hours. lung acetaminophen (TYLENOL) Take 2 tablets 80 tablet 0 05/29 500 mg tabletIndications: (1,000 mg) by Adenocarcinoma, NOS of mouth every 6 upper lobe, lung <Left> (six) hours for 10 days. gabapentin (NEURONTIN) 100 Take 1 capsule 42 capsule 0 05/29 06/19 mg capsuleIndications: (100 mg) by mouth /2021 Adenocarcinoma, NOS of every 8 (eight) upper lobe, lung <Left> hours for 7 days, THEN take 1 capsule (100 mg) twice daily for 7 days, THEN take 1 capsule (100 mg) every morning for 7 days. traMADol (ULTRAM) 50 mg Take 1 tablet (50 40 tablet 0 05/29 07/27 Discontinued tabletIndications: pain mg) by mouth every (Reorder) 6 (six) hours as needed for moderate pain. Take only if needed and decrease use as pain improves gabapentin (NEURONTIN) 100 Take 1 capsule 42 capsule 0 06/30 07/21 mg capsuleIndications: (100 mg) by mouth /2022 Adenocarcinoma, NOS of 3 (three) times a upper lobe, lung <Left>, day for 7 days, Postoperative pain THEN 1 capsule (100 mg) twice daily for 7 days, THEN 1 capsule (100 mg) daily for 7 days. traMADol (ULTRAM) 50 mg Take 1 tablet (50 10 tablet 1 07/27 08/04 Discontinued tabletIndications: pain mg) by mouth /2022 daily. 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 gabapentin (NEURONTIN) 300 TAKE 1 CAPSULE(300 90 capsule 0 10/09 Discontinued mg capsuleIndications: MG) BY MOUTH THREE Postoperative pain TIMES DAILY gabapentin (NEURONTIN) 300 TAKE 1 CAPSULE(300 90 capsule 0 11/14 Discontinued mg capsuleIndications: MG) BY MOUTH THREE Postoperative pain TIMES DAILY Eliquis 2.5 mg TAKE 1 TABLET(2.5 60 tablet 2 10/25 10/25 Discontinued tabletIndications: MG) BY MOUTH EVERY 023 (Reorder) Cerebral venous sinus 12 HOURS thrombosis apixaban (Eliquis) 2.5 mg Take 1 tablet (2.5 60 tablet 3 10/25 11/08 Discontinued tabletIndications: mg) by mouth every 023 (Reorder) 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 After assessment her symptoms are indica tive of thoracic nerve pain. I have refilled her gabapentin prescription and advised her to start with 3 times a day again and then wean off per the typical annabel col we previously ordered. Sent to her [facility] pharmacy. Constipation 05/09/2022 Last Assessment & Plan: Formatting of is note might be different from the original. She did suffer some severe constipation that she was hospitalized for in the beginning of chemo immunotherapy. She manages this on Senokot and sometimes MiraLAX. I did encourage her to stay ahead of thi s prior to surgery. After surgery I told her that if Senokot and MiraLAX not working she can try magnesium citrate. She should let it go 3 days without a bowel movement before calling us for assistance. Antineoplastic chemotherapy induced anemia 05/09/2022 Last Assessment & Plan: Formatting of th is note might be different from the original. Hemoglobin hematocrit 10.1/31.3 respecti vely. We will monitor this during her preop labs before surgery. After surgery if she needs a blood transfusion we will of course treat her if needed. Abnormal weight loss 05/09/2022 Last Assessment & Plan: Formatting of th is note might be different from the original. She normally weighs about 115 pounds. Jan isaac is weighing today at 102 pounds so she is lost a little over 10 pounds since the beginning of treatment which started end of the summer. She has difficulty with her appetite, food does not taste very well so she has not been able to gain some of that weight back. I have put in a referral for log chipper operator to give her a call to assist her. Cerebral thrombosis 01/24/2022 Last Assessment & Plan: Formatting of th is note might be different from the original. She was found to have a cerebral thrombu s and has been on Eliquis since December 2021. She is asymptomatic from this. She will need to stop Eliquis 3 days before surgery. She has stopped Eliquis before without issue. Simple chronic bronchitis 12/27/2021 Other chest pain 12/27/2021 Nicotine dependence 12/14/2021 Adenocarcinoma, NOS of upper lobe, lung <Left> 022 Cancer Staging: Clinical stage from 12/02: Stage IIB (cT3, cN0, cM0) - Signed by Josephine Modi NP on 12/22/2021 Pathologic stage from 05/31/2022: ypT0, pN0, cM0 - Signed by Josephine Modi NP on 05/31/2022 Last Assessment & Plan: Formatting of is note might be different from the original. Ms. 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 She did well for surgery and did have pathological complete response to therapy. She is struggled with her weight anxiety nausea and pain after surgery. She takes Zofran for nausea and she has been taking tram adol intermittently as she is run out of the gabapentin. I have reordered gabapentin for her and encouraged her to take tramadol anytime she feels breakthrough pa in. Encouraged her to eat with medicatio ns and to eat something small several times a day. She is lost 5 pounds since her last weight done here. She is 97 pounds. She declined need to see our nutritioni st as she has resources from her from he r previous visit. I mentioned to her we will see her in 3 to [address] chest and most likely TMO will follow along. Chronic obstructive pulmonary disease 09/20/2017 Coronary arteriosclerosis 09/20/2017 Gastroesophageal reflux disease 09/20/2017 Hypertensive disorder 09/20/2017 Tobacco user 09/20/2017 Shortness of breath 09/20/2017 Encounters Date Type Specialty Care Team Description 01/16/2023 Ancillary Procedure Radiology Mona Reid Cer ebral venous J, WHEEL FILLER sinus thrombosi s 01/16/2023 Travel 01/12/2023 Telemedicine Gastroenterology, Seth Fernandez, Liver enzymes level Hepatology & MD above reference Nutrition range 01/10/2023 Telephone Colorectal Medicine Bruna Albarran MA 01/09/2023 Travel 11/20/2022 Hospital Encounter Pain Medicine Mauri Barr MD Posto perative pain 11/11/2022 Refill Pain Medicine Mauri Barr MD Postoperati ve pain 11/09/2022 Orders Only Radiology Joanna Landon MD 11/08/2022 Orders Only Hematology Mona Reid Cerebral v enous J, WHEEL FILLER sinus thrombosi s 11/06/2022 Telemedicine Thoracic Medicine Esther Crouch rcinoma, NOS MD Sudeep of upper lobe, lung <Left> 11/02/2022 Ancillary Procedure Radiology Josephine Modi Encou nter for WHEEL FILLER follow-up examination aft er completed treat ment for malignant neoplasm 11/02/2022 Travel 10/25/2022 Orders Only Hematology Mona Reid Cerebral v enous J, WHEEL FILLER sinus thrombosi s 10/24/2022 Refill Hematology Mona Reid Cerebral v layne J, WHEEL FILLER sinus thrombosi s 10/07/2022 Refill Pain Medicine Mauri Barr MD Postoperati ve pain 09/29/2022 Telephone Thoracic Medicine Sofy Ambrose E, PA 09/29/2022 Telephone Thoracic Medicine Lilian Castellon, VALE 09/22/2022 Orders Only Thoracic Surgery Josephine Modi, WHEEL FILLER 09/12/2022 Consult Gastroenterology, Seth Fernandez Eleva ted liver enzymes level (Primary Dx); Hepatology & MD Increased liver function Nutrition 09/12/2022 Hospital Encounter Lab Sofy Ambrose Adeno carcinoma, NOS E, PA of upper lobe, lung <Left> 09/12/2022 Travel 09/04/2022 Orders Only Thoracic Medicine Norman Mendez Adenocar cinoma, NOS of upper lobe, lung <Left> (Primary Dx) 09/01/2022 Hospital Encounter Pain Medicine Mauri Barr MD Posto perative pain 09/01/2022 Refill Pain Medicine Mauri Barr MD Postoperati ve pain 08/30/2022 Telephone Thoracic Medicine Cyndy Anglin RN 08/21/2022 Telemedicine Thoracic Medicine Moncho Terrell, Postope rative pain; MD Sudeep Adenocarcinoma, NOS of upper lobe, lung <Left> 08/21/2022 Travel 08/15/2022 Orders Only Thoracic Medicine Sofy Ambrose Adenoc arcinoma, NOS E, PA of upper lobe, lung <Left> (Primary Dx) 08/14/2022 Travel 08/10/2022 Ancillary Procedure Radiology Annabel, Sofy Jose ocarcinoma, NOS E, PA of upper lobe, lung <Left> 08/10/2022 Ancillary Procedure Radiology Annabel, Sofy Jose ocarcinoma, NOS E, PA of upper lobe, lung <Left> 08/10/2022 Orders Only Thoracic Medicine Annabel, Sofy Adenoc arcinoma, NOS E, PA of upper lobe, lung <Left> (Primary Dx) 08/09/2022 Refill Thoracic Medicine Annabel, Sofy Adenoc arcinoma, NOS of upper lobe, lung <Left>; E, PA Nausea 08/07/2022 Orders Only Thoracic Medicine Annabel Sofy Adenoc arcinoma, NOS E, PA of upper lobe, lung <Left> (Primary Dx) 08/07/2022 Telephone Thoracic Medicine Holly Barragan, VALE 08/07/2022 Orders Only Thoracic Medicine Annabel Sofy E, PA 08/04/2022 Hospital Encounter Pain Medicine Mauri Barr MD Posto perative pain (Primary Dx); Adenocarcinoma, NOS of upper lobe, lung <Left> 08/04/2022 Telephone Thoracic Medicine Annabel Sofy E, PA 08/04/2022 Travel 08/02/2022 Ancillary Procedure Radiology Annabel Sofy Jose ocarcinoma, NOS E, PA of upper lobe, lung <Left> 08/02/2022 Travel 07/31/2022 Office Visit Hematology Keaton Rodriguez, Long-term us e of anticoagulants (Primary Dx); Cerebral venous sinus thrombosis; Elevated liver enzymes level 07/31/2022 Orders Only Radiology Pradeep Kamara MD 07/31/2022 Orders Only Thoracic Medicine Annabel Sofy Nausea (Primary Dx); E, PA Adenocarcinoma, NOS of upper lobe, lung <Left> 07/31/2022 Orders Only Thoracic Medicine Annabel Sofy Adenoc arcinoma, NOS E, PA of upper lobe, lung <Left> (Primary Dx) 07/31/2022 Travel 07/28/2022 Orders Only Thoracic Medicine Annabel Sofy E, PA 07/27/2022 Orders Only Thoracic Surgery Josephine Modi, Adenocar cinoma, NOS WHEEL FILLER of upper lobe, lung <Left> 07/27/2022 Orders Only Thoracic Surgery Josephine Modi, Adenocar cinoma, NOS WHEEL FILLER of upper lobe, lung <Left> (Primary Dx) 07/04/2022 Telemedicine Thoracic Medicine Moncho Terrell, Adenoca rcinoma, NOS MD Sudeep of upper lobe, lung <Left> 07/04/2022 Orders Only Thoracic Medicine Annabel Sofy Adenoc arcinoma, NOS E, PA of upper lobe, lung <Left> (Primary Dx) 06/30/2022 Telemedicine Thoracic Surgery Jim Hernadez MD Postop erative pain (Primary Dx); Adenocarcinoma, NOS of upper lobe, lung <Left>; Encounter for f ollow-up examination after completed treatment for malignant neoplasm 06/29/2022 Ancillary Procedure Radiology Annabel, Sofy Jose ocarcinoma, NOS E, PA of upper lobe, lung <Left> 06/29/2022 Orders Only Thoracic Medicine Annabel, Sofy Adenoc arcinoma, NOS E, PA of upper lobe, lung <Left> (Primary Dx) 06/28/2022 Ancillary Procedure Radiology Jeanne Crouch MD 06/26/2022 Ancillary Procedure Radiology Josephine Modi, Adeno carcinoma, NOS WHEEL FILLER of upper lobe, lung <Left> 06/26/2022 Travel 06/09/2022 Orders Only Thoracic Surgery Paula Montero, WHEEL FILLER 05/31/2022 Telephone Thoracic Surgery Josephine Modi, WHEEL FILLER 05/25/2022 Anesthesia Event Evelyn Mclean MD Puskac, Melissa, SUPERVISORY HISTORIAN 05/25/2022 Surgery Jim Hernadez MD ROBOTIC (R ATS) (SI) LOBECTOMY 05/25/2022 Hospital Encounter Thoracic Surgery Jim Hernadez MD Adenocarcinoma, NOS of upper lobe, lung <Left> (Primary Dx); - Adenocarcinoma of left lung 05/29/2022 05/25/2022 Travel 05/24/2022 Nutrition Nutrition Josephine Modi, Adenocarcino ma, NOS WHEEL FILLER of upper lobe, lung Candy Delcid, RD <Left> 05/24/2022 Anesthesia Event Anesthesiology Mark Walls, STORM 05/24/2022 Travel 05/23/2022 POEM Appointments Anesthesiology Josephine Modi, No Sh ow WHEEL FILLER 05/23/2022 Clinical Support Covid Josephine Modi, Suspecte d COVID-19 (Primary Dx); WHEEL FILLER Adenocarcinoma, NOS of upper lobe, lung <Left> Ana Laura Quinn, RN 05/23/2022 Travel 05/09/2022 Follow-Up Thoracic Medicine Moncho Terrell, Adenoca rcinoma, NOS MD Sudeep of upper lobe, lung <Left> 05/09/2022 Follow-Up Thoracic Surgery Jim Hernadez MD Cerebr al thrombosis (Primary Dx); Adenocarcinoma, NOS of upper lobe, lung <Left>; Drug induced co nstipation; Antineoplastic chemotherapy induced anemia; Abnormal weight loss 05/09/2022 Hospital Encounter Lab Annabel, Sofy Adeno carcinoma, NOS E, PA of upper lobe, lung <Left> 05/09/2022 Prep for Surgery Thoracic Surgery Josephine Modi, Jose ocarcinoma, NOS WHEEL FILLER of upper lobe, lung <Left> (Primary Dx) 05/09/2022 Travel 04/17/2022 Infusion Infusion Services Nadja Crouchca mazininoma, NOS MD Sudeep of upper lobe, lung <Left> (Primary Dx) 04/17/2022 Telemedicine Thoracic Medicine Moncho Terrell Adenoca rcinoma, NOS MD Sudeep of upper lobe, lung <Left> (Primary Dx) 04/17/2022 Orders Only Thoracic Medicine Elvia Olmedo, PharmD 04/17/2022 Travel 04/11/2022 Orders Only Thoracic Medicine Annabel, Sofy Adenoc arcinoma, NOS E, PA of upper lobe, lung <Left> (Primary Dx) 04/10/2022 Office Visit Thoracic Medicine Annabel, Sofy Adenoc arcinoma, NOS E, PA of upper lobe, lung <Left> (Primary Dx) 04/10/2022 Hospital Encounter Lab Moncho Terrell, Adenoc arcinoma, NOS MD Sudeep of upper lobe, lung <Left> 04/10/2022 Refill Thoracic Medicine Cyndy Anglin RN 04/10/2022 Travel 04/07/2022 Ancillary Procedure Radiology Yu Elmore Adeno carcinoma, NOS E, WHEEL FILLER of upper lobe, lung <Left> 04/07/2022 Travel 03/27/2022 Telemedicine Hematology Sophie, Adenocarcin muriel, NOS MD Kris of upper lobe, lung Keaton Rodriguez, <Left> MD 03/27/2022 Orders Only Hematology Keaton Rodriguez, Cerebral tere ous sinus thrombosi s (Primary Dx) 03/20/2022 Infusion Infusion Services Nadja Crouchca rominama, NOS MD Sudeep of upper lobe, lung Matilda Condon, <Left> (Bharti lovely Dx) RN 03/20/2022 Consult Pulmonology Kaylie Mota Adenocarcino ma, NOS of upper lobe, lung <Left> 03/20/2022 Hospital Encounter Pulmonology Tammy Giraldo, Wired Music Operator bay bronchitis, WHEEL FILLER not otherwise specified 03/20/2022 Office Visit Thoracic Medicine Moncho Terrell, Nadjaca rcinoma, NOS of upper lobe, lung <Left> [...] Only Pulmonology Tammy Giraldo, Chronic br onchitis, WHEEL FILLER not otherwise specified (Prim dany Dx) 02/27/2022 Infusion Infusion Services Moncho Terrell, Nadjaca rcinoma, NOS MD Sudeep of upper lobe, lung Julieta Giffordel <Left> (Pr imary Dx) O, RN 02/27/2022 Office Visit Thoracic Medicine Moncho Terrell, Adenoca rcinoma, NOS of upper lobe, lung <Left> (Primary Dx); MD Sudeep Adenocarcinoma of left lung; Simple chronic bronchitis; Cerebral thromb osis 02/27/2022 Hospital Encounter Lab Moncho Terrell, Adenoc arcinoma, NOS MD Sudeep of upper lobe, lung <Left> 02/27/2022 Travel 02/23/2022 Telephone Thoracic Medicine Sofy Ambrose, PA 02/23/2022 Orders Only Thoracic Medicine Sofy Ambrose Adenoc arcinoma, NOS E, PA of upper lobe, lung <Left> (Primary Dx) 02/23/2022 Orders Only Thoracic Medicine Tra Hollingsworth, Adenoca rcinoma, NOS PharmD of upper lobe, lung <Left> (Primary Dx) 02/23/2022 Orders Only Thoracic Medicine Sofy Ambrose Adenoc arcinoma of E, PA left lung 02/17/2022 Orders Only Radiology Ambreen Almeida, PA 02/17/2022 Orders Only Thoracic Medicine Franky Lopez, VALE 02/15/2022 Orders Only Thoracic Medicine Cyndy Min, MARIAH 02/13/2022 Telephone Thoracic Medicine Indira Carpio RN 02/11/2022 Clinical Support Covid Muriel Leroy, STORM Suspected COVID-19 Mariama Baez, (Primary Dx ) MA 02/11/2022 Travel 02/08/2022 Orders Only Thoracic Medicine Sofy Ambrose PA 02/07/2022 [facility], Adeno carcinoma, NOS MD Sudeep of upper lobe, lung <Left> 02/07/2022 Travel 02/07/2022 Orders Only Radiology Muriel Leroy, PA 02/04/2022 [facility], Adeno carcinoma, NOS MD Sudeep of upper lobe, lung <Left> 02/04/2022 Travel 02/03/2022 Hospital Encounter Pulmonology [facility] Negrao, Adenoc arcinoma, NOS MD Sudeep of upper lobe, lung <Left> 02/03/2022 Hospital Encounter Infusion Services [facility], A denocarcinoma, NOS MD Sudeep of upper lobe, lung <Left> 02/03/2022 Hospital Encounter Cardiology [facility], Adenoc arcinoma, NOS MD Sudeep of upper lobe, lung <Left> 02/03/2022 Orders Only Thoracic Medicine Alhaji Lopezusola, Adeno carcinoma, NOS RN of upper lobe, lung <Left> (Primary Dx) 02/03/2022 Orders Only Radiology Muriel Leroy, PA 02/03/2022 Orders Only Thoracic Medicine John, Franky, Adeno carcinoma, NOS RN of upper lobe, lung <Left> (Primary Dx) 02/03/2022 Travel 02/01/2022 Orders Only Thoracic Medicine John, Franky, Adeno carcinoma, NOS RN of upper lobe, lung <Left> (Primary Dx) 02/01/2022 Orders Only Thoracic Medicine Oyewuwo, Franky, Adeno carcinoma, NOS RN of upper lobe, lung <Left> (Primary Dx) 01/31/2022 Orders Only Radiology LugoGiorgi valerio PA 01/31/2022 Orders Only Thoracic Medicine Franky [...] Medicine Sana Wilcox Adenoca rcinoma, NOS M, WHEEL FILLER of upper lobe, lung <Left> (Primary Dx) 01/24/2022 Travel 01/22/2022 Orders Only Thoracic Medicine Moncho Terrell, Adenoca rcinoma, NOS MD Sudeep of upper lobe, lung <Left> (Primary Dx) 01/19/2022 Orders Only Thoracic Medicine Sofy Ambrose Adenoc arcinoma, NOS E, PA of upper lobe, lung <Left> (Primary Dx) after 01/19/2022 Immunizations Name Administration Dates Next Due Pneumococcal Polysaccharide 09/20/2017 Surgical History Surgery Date Site/Laterality Comments 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" CORONARY ANGIOPLASTY 06/18/2016 - no interven tion 06/17/2017 CATARACT EXTRACTION Bilateral BILATERAL W/ ANTERIOR VITRECTOMY COLONOSCOPY 06/18/2017 - 3 precancerous p olpys 06/17/2018 removed DILATION AND [facility]URETT[facility] 12/21/2021 N/A Procedure : BRONCHOSCOPY SAMPL 3/> NODE WITH EBUS 3 OR M ORE STATION/STRUX NODES; Surgeon: Kaylie Mota MD; Locat ion: MAIN PULM PROC; Servi ce: PULMONARY MN THORACOSCOPY W/LOBECTOMY 05/25/2022 Left Proc edure: ROBOTIC (RATS) SINGLE LOBE (SI) LOBECTOMY; Surgeon: Jim Hernadez MD ; Location: MAIN O R; Service: THRCV - THORACIC SURGERY Medical devices from this surgery are in t he Medical Devices section. MN THORCOSCPY W/MEDIASTINL 05/25/2022 Left Proce dure: ROBOTIC (RATS) & REGIONL LYMPHDENECTOMY (SI) ME DIASTINAL LYMPHADENECTOMY; Surgeon: Jim Hernadez MD ; Location: MAIN O R; Service: THRCV - THORACIC SURGERY Medical devices from this surgery are in t he Medical Devices section. Medical History Medical History Date Comments Allergic [...] Date Smoking Tobacco: Former Cigarettes 1 62 06/1959 - 01/12/2022 Smokeless Tobacco: Never Tobacco Cessation: Counseling Given: Not Answered Comments: 6-8 cpd x 1 month Alcohol [...] file Not on file Not on file Obstetrics History Last Filed Vital Signs Vital Sign Reading Time Taken Comments Blood Pressure 151/87 09/12/2022 9:53 AM CDT Pulse 60 09/12/2022 9:53 AM CDT Temperature 36.8 C (98.2 F) 09/12/2022 9:53 AM CDT Respiratory Rate 16 09/12/2022 9:53 AM CDT Oxygen Saturation 98% 09/12/2022 9:53 AM CDT Inhaled Oxygen Concentration - - Weight 51.3 kg (113 lb 1.5 oz) 01/16/2023 8:14 AM CDT Height 153 cm (5' 0.24") 07/31/2022 8:48 AM YARD ASSOCIATE Body Mass Index 21.91 07/31/2022 8:48 AM YARD ASSOCIATE Plan of Treatment Date Type Specialty Care Team Description 01/29/2023 Telemedicine Hematology Keaton Rodriguez MD [address] [place], [place] [address] (Wo rk) 02/02/2023 Lab Lab Sofy Ambrose PA [address] [place], [place] [address] (Wo rk) 02/02/2023 Ancillary Procedure Radiology Cindy Ambrose PA [address] [place], [place] [address] (Wo rk) 02/05/2023 Telemedicine Thoracic Medicine Sudeep Crouch MD [address] [place], [place] [address] (Wo rk) 02/12/2023 Office Visit Hematology Keaton Rodriguez MD [address] [place], [place] [address] (Wo rk) Health Maintenance Due Date Last Done Comments COVID-19 Vaccination (#1) 10/12/1950 Medical Devices Implanted Type Area Job Placement Specialist Device Shelf Model / Identifier Expiration Serial / Date Lot Cath Thoracic Str 28fr - [id number] Left: [employer] 01/06/2025 [id number] / Implanted: Qty: 1 on 05/25/2022 by Jim Hernadez MD at [facility] Chest NANDINI / [id number] Procedures Procedure Name Priority Date/Time Associated Comments Diagnosis MANUAL DIFFERENTIAL Routine 01/09/2023 9:57 Liver enzymes leve l Results for this AM CDT above reference procedure ar e in range the results section. Results CBC Routine 01/09/2023 9:57 Liver enzymes level Resul ts for this AM CDT above reference procedure ar e in range the results section. FRACTIONATED BILIRUBIN Routine 01/09/2023 9:57 Liver enzymes l evel Results for this AM CDT above reference procedure ar e in range the results section. TOTAL PROTEIN Routine 01/09/2023 9:57 Liver enzymes level Resu lts for this AM CDT above reference procedure ar e in range the results section. ASPARTATE Routine 01/09/2023 9:57 Liver enzymes level Resul ts for this AMINOTRANSFERASE AM CDT above reference procedur e are in range the results section. ALANINE AMINOTRANSFERASE Routine 01/09/2023 9:57 Liver enzymes level Results for this AM CDT above reference procedure ar e in range the results section. ALKALINE PHOSPHATASE Routine 01/09/2023 9:57 Liver enzymes lev el Results for this AM CDT above reference procedure ar e in range the results section. ALBUMIN LEVEL Routine 01/09/2023 9:57 Liver enzymes level Resu lts for this AM CDT above reference procedure ar e in range the results section. CALCIUM LEVEL TOTAL Routine 01/09/2023 9:57 Liver enzymes leve l Results for this AM CDT above reference procedure ar e in range the results section. .GLOMERULAR FILTRATION Routine 01/09/2023 9:57 Liver enzymes l evel Results for this RATE AM CDT above reference procedure ar e in range the results section. SERUM CREATININE Routine 01/09/2023 9:57 Liver enzymes level R esults for this AM CDT above reference procedure ar e in range the results section. ELECTROLYTE PANEL Routine 01/09/2023 9:57 Liver enzymes level Results for this AM CDT above reference procedure ar e in range the results section. BLOOD UREA NITROGEN Routine 01/09/2023 9:57 Liver enzymes leve l Results for this AM CDT above reference procedure ar e in range the results section. GLUCOSE LEVEL Routine 01/09/2023 9:57 Liver enzymes level Resu lts for this AM CDT above reference procedure ar e in range the results section. COMPLETE BLOOD COUNT W/ Routine 01/09/2023 9:57 Liver enzymes level DIFFERENTIAL AM CDT above reference range COMPREHENSIVE METABOLIC Routine 01/09/2023 9:57 Liver enzymes level PANEL AM CDT above reference range CT CHEST W CONTRAST Routine 11/02/2022 10:11 Encounter for Res ults for this AM CDT follow-up procedure are i n examination after the result s completed treatment section. for malignant neoplasm FRACTIONATED BILIRUBIN Routine 11/02/2022 9:04 Adenocarcinoma, NOS Results for this AM CDT of upper lobe, lung procedur e are in <Left> the results section. TOTAL PROTEIN Routine 11/02/2022 9:04 Adenocarcinoma, NOS Resu lts for this AM CDT of upper lobe, lung procedur e are in <Left> the results section. ASPARTATE Routine 11/02/2022 9:04 Adenocarcinoma, NOS Resul ts for this AMINOTRANSFERASE AM CDT of upper lobe, lung proc edure are in <Left> the results section. ALANINE AMINOTRANSFERASE Routine 11/02/2022 9:04 Adenocarcinom a, NOS Results for this AM CDT of upper lobe, lung procedur e are in <Left> the results section. ALKALINE PHOSPHATASE Routine 11/02/2022 9:04 Adenocarcinoma, N OS Results for this AM CDT of upper lobe, lung procedur e are in <Left> the results section. ALBUMIN LEVEL Routine 11/02/2022 9:04 Adenocarcinoma, NOS Resu lts for this AM CDT of upper lobe, lung procedur e are in <Left> the results section. CALCIUM LEVEL TOTAL Routine 11/02/2022 9:04 Adenocarcinoma, NO S Results for this AM CDT of upper lobe, lung procedur e are in <Left> the results section. .GLOMERULAR FILTRATION Routine 11/02/2022 9:04 Adenocarcinoma, NOS Results for this RATE AM CDT of upper lobe, lung procedur e are in <Left> the results section. SERUM CREATININE Routine 11/02/2022 9:04 Adenocarcinoma, NOS R esults for this AM CDT of upper lobe, lung procedur e are in <Left> the results section. ELECTROLYTE PANEL Routine 11/02/2022 9:04 Adenocarcinoma, NOS Results for this AM CDT of upper lobe, lung procedur e are in <Left> the results section. BLOOD UREA NITROGEN Routine 11/02/2022 9:04 Adenocarcinoma, NO S Results for this AM CDT of upper lobe, lung procedur e are in <Left> the results section. GLUCOSE LEVEL Routine 11/02/2022 9:04 Adenocarcinoma, NOS Resu lts for this AM CDT of upper lobe, lung procedur e are in <Left> the results section. MANUAL DIFFERENTIAL Routine 11/02/2022 9:04 Adenocarcinoma, NO S Results for this AM CDT of upper lobe, lung procedur e are in <Left> the results section. Results CBC Routine 11/02/2022 9:04 Adenocarcinoma, NOS Resul ts for this AM CDT of upper lobe, lung procedur e are in <Left> the results section. THYROID STIMULATING Routine 11/02/2022 9:04 Adenocarcinoma, NO S Results for this HORMONE AM CDT of upper lobe, lung procedur e are in <Left> the results section. FREE THYROXINE Routine 11/02/2022 9:04 Adenocarcinoma, NOS Re sults for this AM CDT of upper lobe, lung procedur e are in <Left> the results section. COMPREHENSIVE METABOLIC Routine 11/02/2022 9:04 Adenocarcinoma , NOS PANEL AM CDT of upper lobe, lung <Left> COMPLETE BLOOD COUNT W/ Routine 11/02/2022 9:04 Adenocarcinoma , NOS DIFFERENTIAL AM CDT of upper lobe, lung <Left> FRACTIONATED BILIRUBIN Routine 09/12/2022 9:10 Adenocarcinoma, NOS Results for this AM CDT of upper lobe, lung procedur e are in <Left> the results section. TOTAL PROTEIN Routine 09/12/2022 9:10 Adenocarcinoma, NOS Resu lts for this AM CDT of upper lobe, lung procedur e are in <Left> the results section. ASPARTATE Routine 09/12/2022 9:10 Adenocarcinoma, NOS Resul ts for this AMINOTRANSFERASE AM CDT of upper lobe, lung proc edure are in <Left> the results section. ALANINE AMINOTRANSFERASE Routine 09/12/2022 9:10 Adenocarcinom a, NOS Results for this AM CDT of upper lobe, lung procedur e are in <Left> the results section. ALKALINE PHOSPHATASE Routine 09/12/2022 9:10 Adenocarcinoma, N OS Results for this AM CDT of upper lobe, lung procedur e are in <Left> the results section. ALBUMIN LEVEL Routine 09/12/2022 9:10 Adenocarcinoma, NOS Resu lts for this AM CDT of upper lobe, lung procedur e are in <Left> the results section. RESEARCH PROTOCOL Routine 09/12/2022 9:10 Adenocarcinoma, NOS Results for this [id number] AM CDT of upper lobe, lung procedur e are in <Left> the results section. HEPATIC FUNCTION PANEL Routine 09/12/2022 9:10 Adenocarcinoma, NOS AM CDT of upper lobe, lung <Left> MANUAL DIFFERENTIAL Routine 08/21/2022 10:43 Adenocarcinoma, N OS Results for this AM YARD ASSOCIATE of upper lobe, lung procedur e are in <Left> the results section. Results CBC Routine 08/21/2022 10:43 Adenocarcinoma, NOS Resu lts for this AM YARD ASSOCIATE of upper lobe, lung procedur e are in <Left> the results section. FRACTIONATED BILIRUBIN Routine 08/21/2022 10:43 Adenocarcinoma , NOS Results for this AM YARD ASSOCIATE of upper lobe, lung procedur e are in <Left> the results section. TOTAL PROTEIN Routine 08/21/2022 10:43 Adenocarcinoma, NOS Res ults for this AM YARD ASSOCIATE of upper lobe, lung procedur e are in <Left> the results section. ASPARTATE Routine 08/21/2022 10:43 Adenocarcinoma, NOS Resu lts for this AMINOTRANSFERASE AM YARD ASSOCIATE of upper lobe, lung proc edure are in <Left> the results section. ALANINE AMINOTRANSFERASE Routine 08/21/2022 10:43 Adenocarcino ma, NOS Results for this AM YARD ASSOCIATE of upper lobe, lung procedur e are in <Left> the results section. ALKALINE PHOSPHATASE Routine 08/21/2022 10:43 Adenocarcinoma, NOS Results for this AM YARD ASSOCIATE of upper lobe, lung procedur e are in <Left> the results section. ALBUMIN LEVEL Routine 08/21/2022 10:43 Adenocarcinoma, NOS Res ults for this AM YARD ASSOCIATE of upper lobe, lung procedur e are in <Left> the results section. COMPLETE BLOOD COUNT W/ Routine 08/21/2022 10:43 Adenocarcinom a, NOS DIFFERENTIAL AM YARD ASSOCIATE of upper lobe, lung <Left> GAMMA GLUTAMYL Routine 08/21/2022 10:43 Adenocarcinoma, NOS Re sults for this TRANSFERASE AM YARD ASSOCIATE of upper lobe, lung procedur e are in <Left> the results section. HEPATIC FUNCTION PANEL Routine 08/21/2022 10:43 Adenocarcinoma , NOS AM YARD ASSOCIATE of upper lobe, lung <Left> FRACTIONATED BILIRUBIN Routine 08/14/2022 9:21 Adenocarcinoma, NOS Results for this AM YARD ASSOCIATE of upper lobe, lung procedur e are in <Left> the results section. TOTAL PROTEIN Routine 08/14/2022 9:21 Adenocarcinoma, NOS Resu lts for this AM YARD ASSOCIATE of upper lobe, lung procedur e are in <Left> the results section. ASPARTATE Routine 08/14/2022 9:21 Adenocarcinoma, NOS Resul ts for this AMINOTRANSFERASE AM YARD ASSOCIATE of upper lobe, lung proc edure are in <Left> the results section. ALANINE AMINOTRANSFERASE Routine 08/14/2022 9:21 Adenocarcinom a, NOS Results for this AM YARD ASSOCIATE of upper lobe, lung procedur e are in <Left> the results section. ALKALINE PHOSPHATASE Routine 08/14/2022 9:21 Adenocarcinoma, N OS Results for this AM YARD ASSOCIATE of upper lobe, lung procedur e are in <Left> the results section. ALBUMIN LEVEL Routine 08/14/2022 9:21 Adenocarcinoma, NOS Resu lts for this AM YARD ASSOCIATE of upper lobe, lung procedur e are in <Left> the results section. GAMMA GLUTAMYL Routine 08/14/2022 9:21 Adenocarcinoma, NOS Res ults for this TRANSFERASE AM YARD ASSOCIATE of upper lobe, lung procedur e are in <Left> the results section. HEPATIC FUNCTION PANEL Routine 08/14/2022 9:21 Adenocarcinoma, NOS AM YARD ASSOCIATE of upper lobe, lung <Left> MANUAL DIFFERENTIAL Routine 08/07/2022 9:30 Increased liver Re sults for this AM YARD ASSOCIATE function procedure are i n the results section. Results CBC Routine 08/07/2022 9:30 Increased liver Results f or this AM YARD ASSOCIATE function procedure are i n the results section. FRACTIONATED BILIRUBIN Routine 08/07/2022 9:30 Increased liver Results for this AM YARD ASSOCIATE function procedure are i n the results section. TOTAL PROTEIN Routine 08/07/2022 9:30 Increased liver Results for this AM YARD ASSOCIATE function procedure are i n the results section. ASPARTATE Routine 08/07/2022 9:30 Increased liver Results f or this AMINOTRANSFERASE AM YARD ASSOCIATE function procedure a re in the results section. ALANINE AMINOTRANSFERASE Routine 08/07/2022 9:30 Increased juanita er Results for this AM YARD ASSOCIATE function procedure are i n the results section. ALKALINE PHOSPHATASE Routine 08/07/2022 9:30 Increased liver R esults for this AM YARD ASSOCIATE function procedure are i n the results section. ALBUMIN LEVEL Routine 08/07/2022 9:30 Increased liver Results for this AM YARD ASSOCIATE function procedure are i n the results section. CALCIUM LEVEL TOTAL Routine 08/07/2022 9:30 Increased liver Re sults for this AM YARD ASSOCIATE function procedure are i n the results section. .GLOMERULAR FILTRATION Routine 08/07/2022 9:30 Increased liver Results for this RATE AM YARD ASSOCIATE function procedure are i n the results section. SERUM CREATININE Routine 08/07/2022 9:30 Increased liver Resul ts for this AM YARD ASSOCIATE function procedure are i n the results section. ELECTROLYTE PANEL Routine 08/07/2022 9:30 Increased liver Resu lts for this AM YARD ASSOCIATE function procedure are i n the results section. BLOOD UREA NITROGEN Routine 08/07/2022 9:30 Increased liver Re sults for this AM YARD ASSOCIATE function procedure are i n the results section. GLUCOSE LEVEL Routine 08/07/2022 9:30 Increased liver Results for this AM YARD ASSOCIATE function procedure are i n the results section. HEPATITIS B CORE Routine 08/07/2022 9:30 Results for this ANTIBODY AM YARD ASSOCIATE procedure are i n the results section. THYROID STIMULATING Routine 08/07/2022 9:30 Increased liver Re sults for this HORMONE AM YARD ASSOCIATE function procedure are i n the results section. FERRITIN LVL Routine 08/07/2022 9:30 Increased liver Results f or this AM YARD ASSOCIATE function procedure are i n the results section. TRANSFERRIN Routine 08/07/2022 9:30 Increased liver Results f or this AM YARD ASSOCIATE function procedure are i n the results section. IRON LEVEL Routine 08/07/2022 9:30 Increased liver Results f or this AM YARD ASSOCIATE function procedure are i n the results section. TISSUE TRANSGLUTAMINASE Routine 08/07/2022 9:30 Increased live r Results for this ANTIBODY, SERUM AM YARD ASSOCIATE function procedure ar e in the results section. IMMUNOGLOBULIN A SERUM Routine 08/07/2022 9:30 Increased liver Results for this AM YARD ASSOCIATE function procedure are i n the results section. IMMUNOGLOBULIN M SERUM Routine 08/07/2022 9:30 Increased liver Results for this AM YARD ASSOCIATE function procedure are i n the results section. IMMUNOGLOBULIN G SERUM Routine 08/07/2022 9:30 Increased liver Results for this AM YARD ASSOCIATE function procedure are i n the results section. LIVER/KIDNEY MICROSOME Routine 08/07/2022 9:30 Increased liver Results for this TYPE 1 ANTIBODY, SERUM AM YARD ASSOCIATE function proce dure are in the results section. SMOOTH MUSCLE ANTIBODY Routine 08/07/2022 9:30 Increased liver Results for this SCREEN AM YARD ASSOCIATE function procedure are i n the results section. MITOCHONDRIAL Routine 08/07/2022 9:30 Increased liver Results for this ANTIBODIES, M2, SERUM AM YARD ASSOCIATE function proced ure are in the results section. ANTINUCLEAR ANTIBODY Routine 08/07/2022 9:30 Increased liver R esults for this HEP-2 SUBSTRATE IGG AM YARD ASSOCIATE function procedur e are in the results section. ALPHA 1 ANTRITRYPSIN, Routine 08/07/2022 9:30 Increased liver Results for this SERUM AM YARD ASSOCIATE function procedure are i n the results section. CERULOPLASMIN LVL Routine 08/07/2022 9:30 Increased liver Resu lts for this AM YARD ASSOCIATE function procedure are i n the results section. HIV 1/2 Routine 08/07/2022 9:30 Increased liver Results f or this ANTIGEN/ANTIBODY, FOURTH AM YARD ASSOCIATE function pro cedure are in GEN W/RFL the results section. EBV ANTIBODY PANEL Routine 08/07/2022 9:30 Increased liver Res ults for this AM YARD ASSOCIATE function procedure are i n the results section. CMV QUANT PCR Routine 08/07/2022 9:30 Increased liver Results for this AM YARD ASSOCIATE function procedure are i n the results section. HEPATITIS E VIRUS BY Routine 08/07/2022 9:30 Increased liver R esults for this QUANTITATIVE PCR AM YARD ASSOCIATE function procedure a re in the results section. HEV IGG ANTIBODY, SERUM Routine 08/07/2022 9:30 Increased live r Results for this AM YARD ASSOCIATE function procedure are i n the results section. HEV IGM ANTIBODY SCREEN, Routine 08/07/2022 9:30 Increased juanita er Results for this SERUM AM YARD ASSOCIATE function procedure are i n the results section. HEPATITIS C VIRUS RNA Routine 08/07/2022 9:30 Increased liver Results for this DETECT/QUANT, SERUM AM YARD ASSOCIATE function procedur e are in the results section. HEPATITIS C VIRUS AB Routine 08/07/2022 9:30 Increased liver R esults for this SCREEN W/REFLEX HCV PCR AM YARD ASSOCIATE function proc edure are in the results section. HBV DNA QUANT Routine 08/07/2022 9:30 Increased liver Results for this AM YARD ASSOCIATE function procedure are i n the results section. HEPATITIS B CORE Routine 08/07/2022 9:30 Increased liver Resul ts for this ANTIBODY AM YARD ASSOCIATE function procedure are i n the results section. HEPATITIS B CORE Routine 08/07/2022 9:30 Increased liver Resul ts for this ANTIBODY IGM ACUTE TITER AM YARD ASSOCIATE function pro cedure are in the results section. HEPATITIS B SURFACE Routine 08/07/2022 9:30 Increased liver Re sults for this ANTIBODY, SERUM AM YARD ASSOCIATE function procedure ar e in the results section. HEPATITIS B SURFACE Routine 08/07/2022 9:30 Increased liver Re sults for this ANTIGEN, SERUM AM YARD ASSOCIATE function procedure are in the results section. HEPATITIS A ANTIBODY IGG Routine 08/07/2022 9:30 Increased juanita er Results for this AM YARD ASSOCIATE function procedure are i n the results section. HEPATITIS A IGM ANTIBODY Routine 08/07/2022 9:30 Increased juanita er Results for this SERUM AM YARD ASSOCIATE function procedure are i n the results section. PROTHROMBIN TIME Routine 08/07/2022 9:30 Increased liver Resul ts for this AM YARD ASSOCIATE function procedure are i n the results section. COMPLETE BLOOD COUNT W/ Routine 08/07/2022 9:30 Increased live r DIFFERENTIAL AM YARD ASSOCIATE function GAMMA GLUTAMYL Routine 08/07/2022 9:30 Increased liver Results for this TRANSFERASE AM YARD ASSOCIATE function procedure are i n the results section. HEPATIC FUNCTION PANEL Routine 08/07/2022 9:30 Increased liver AM YARD ASSOCIATE function BASIC METABOLIC PANEL, Routine 08/07/2022 9:30 Increased liver CALCIUM TOTAL AM YARD ASSOCIATE function CMV ANTIBODY IGG + IGM - Routine 08/07/2022 9:30 Results for this PATHOLOGIST REVIEW AM YARD ASSOCIATE procedure are in the results section. EBV ANTIBODY PANEL - Routine 08/07/2022 9:30 Resu lts for this PATHOLOGIST REVIEW AM YARD ASSOCIATE procedure are in the results section. EBV QUANT PCR, PLASMA Routine 08/07/2022 9:30 Increased liver Results for this AM YARD ASSOCIATE function procedure are i n the results section. CMV ANTIBODY IGG + IGM Routine 08/07/2022 9:30 Increased liver Results for this AM YARD ASSOCIATE function procedure are i n the results section. HSV 1 & 2 QUANT PCR, Routine 08/07/2022 9:30 Increased liver R esults for this PLASMA AM YARD ASSOCIATE function procedure are i n the results section. PETCT SUBSEQUENT Routine 08/02/2022 3:42 Adenocarcinoma, NOS R esults for this TREATMENT STRATEGY PM YARD ASSOCIATE of upper lobe, lung pr ocedure are in <Left> the results section. OSI CT ABDOMEN AND Routine 08/02/2022 2:47 Adenocarcinoma, NOS Results for this PELVIS PM YARD ASSOCIATE of upper lobe, lung procedur e are in <Left> the results section. OSI CT BRAIN Routine 08/02/2022 2:47 Adenocarcinoma, NOS Resul ts for this PM YARD ASSOCIATE of upper lobe, lung procedur e are in <Left> the results section. MANUAL DIFFERENTIAL Routine 08/02/2022 11:24 Adenocarcinoma, N OS Results for this AM YARD ASSOCIATE of upper lobe, lung procedur e are in <Left> the results section. Results CBC Routine 08/02/2022 11:24 Adenocarcinoma, NOS Resu lts for this AM YARD ASSOCIATE of upper lobe, lung procedur e are in <Left> the results section. FRACTIONATED BILIRUBIN Routine 08/02/2022 11:24 Adenocarcinoma , NOS Results for this AM YARD ASSOCIATE of upper lobe, lung procedur e are in <Left> the results section. TOTAL PROTEIN Routine 08/02/2022 11:24 Adenocarcinoma, NOS Res ults for this AM YARD ASSOCIATE of upper lobe, lung procedur e are in <Left> the results section. ASPARTATE Routine 08/02/2022 11:24 Adenocarcinoma, NOS Resu lts for this AMINOTRANSFERASE AM YARD ASSOCIATE of upper lobe, lung proc edure are in <Left> the results section. ALANINE AMINOTRANSFERASE Routine 08/02/2022 11:24 Adenocarcino ma, NOS Results for this AM YARD ASSOCIATE of upper lobe, lung procedur e are in <Left> the results section. ALKALINE PHOSPHATASE Routine 08/02/2022 11:24 Adenocarcinoma, NOS Results for this AM YARD ASSOCIATE of upper lobe, lung procedur e are in <Left> the results section. ALBUMIN LEVEL Routine 08/02/2022 11:24 Adenocarcinoma, NOS Res ults for this AM YARD ASSOCIATE of upper lobe, lung procedur e are in <Left> the results section. CALCIUM LEVEL TOTAL Routine 08/02/2022 11:24 Adenocarcinoma, N OS Results for this AM YARD ASSOCIATE of upper lobe, lung procedur e are in <Left> the results section. .GLOMERULAR FILTRATION Routine 08/02/2022 11:24 Adenocarcinoma , NOS Results for this RATE AM YARD ASSOCIATE of upper lobe, lung procedur e are in <Left> the results section. SERUM CREATININE Routine 08/02/2022 11:24 Adenocarcinoma, NOS Results for this AM YARD ASSOCIATE of upper lobe, lung procedur e are in <Left> the results section. ELECTROLYTE PANEL Routine 08/02/2022 11:24 Adenocarcinoma, NOS Results for this AM YARD ASSOCIATE of upper lobe, lung procedur e are in <Left> the results section. BLOOD UREA NITROGEN Routine 08/02/2022 11:24 Adenocarcinoma, N OS Results for this AM YARD ASSOCIATE of upper lobe, lung procedur e are in <Left> the results section. GLUCOSE LEVEL Routine 08/02/2022 11:24 Adenocarcinoma, NOS Res ults for this AM YARD ASSOCIATE of upper lobe, lung procedur e are in <Left> the results section. GAMMA GLUTAMYL Routine 08/02/2022 11:24 Adenocarcinoma, NOS Re sults for this TRANSFERASE AM YARD ASSOCIATE of upper lobe, lung procedur e are in <Left> the results section. CREATINE KINASE Routine 08/02/2022 11:24 Adenocarcinoma, NOS R esults for this AM YARD ASSOCIATE of upper lobe, lung procedur e are in <Left> the results section. COMPLETE BLOOD COUNT W/ Routine 08/02/2022 11:24 Adenocarcinom a, NOS DIFFERENTIAL AM YARD ASSOCIATE of upper lobe, lung <Left> COMPREHENSIVE METABOLIC Routine 08/02/2022 11:24 Adenocarcinom a, NOS PANEL AM YARD ASSOCIATE of upper lobe, lung <Left> XR CHEST 2 VW Routine 06/26/2022 8:58 Adenocarcinoma, NOS Resu lts for this AM YARD ASSOCIATE of upper lobe, lung procedur e are in <Left> the results section. OSI CHEST Routine 06/16/2022 8:58 Adenocarcinoma, NOS Resul ts for this AM YARD ASSOCIATE of upper lobe, lung procedur e are in <Left> the results section. OSCILLATORY PEP Routine 05/28/2022 8:00 AM YARD ASSOCIATE OSCILLATORY PEP Routine 05/27/2022 8:00 PM YARD ASSOCIATE OSCILLATORY PEP Routine 05/27/2022 8:00 AM YARD ASSOCIATE CALCIUM LEVEL TOTAL Routine 05/27/2022 4:03 Resu lts for this AM YARD ASSOCIATE procedure are i n the results section. .GLOMERULAR FILTRATION Routine 05/27/2022 4:03 Re sults for this RATE AM YARD ASSOCIATE procedure are i n the results section. SERUM CREATININE Routine 05/27/2022 4:03 Results for this AM YARD ASSOCIATE procedure are i n the results section. ELECTROLYTE PANEL Routine 05/27/2022 4:03 Results for this AM YARD ASSOCIATE procedure are i n the results section. BLOOD UREA NITROGEN Routine 05/27/2022 4:03 Resul ts for this AM YARD ASSOCIATE procedure are i n the results section. GLUCOSE LEVEL Routine 05/27/2022 4:03 Results for this AM YARD ASSOCIATE procedure are i n the results section. MAGNESIUM LEVEL Routine 05/27/2022 4:03 Results f or this AM YARD ASSOCIATE procedure are i n the results section. BASIC METABOLIC PANEL, Routine 05/27/2022 4:03 CALCIUM TOTAL AM YARD ASSOCIATE COMPLETE BLOOD COUNT W/ Routine 05/27/2022 4:03 R esults for this INDICES AM YARD ASSOCIATE procedure are i n the results section. OSCILLATORY PEP Routine 05/26/2022 2:01 PM YARD ASSOCIATE OSCILLATORY PEP Routine 05/26/2022 8:00 AM YARD ASSOCIATE XR CHEST 2 VW Routine 05/26/2022 7:50 Results for this AM YARD ASSOCIATE procedure are i n the results section. ANION GAP Routine 05/26/2022 5:50 Results for this AM YARD ASSOCIATE procedure are i n the results section. MANUAL DIFFERENTIAL Now 05/26/2022 5:50 Resul ts for this AM YARD ASSOCIATE procedure are i n the results section. Results CBC Now 05/26/2022 5:50 Results for this AM YARD ASSOCIATE procedure are i n the results section. .GLOMERULAR FILTRATION Now 05/26/2022 5:50 Re sults for this RATE AM YARD ASSOCIATE procedure are i n the results section. SERUM CREATININE Now 05/26/2022 5:50 Results for this AM YARD ASSOCIATE procedure are i n the results section. COMPLETE BLOOD COUNT W/ Now 05/26/2022 5:50 DIFFERENTIAL AM YARD ASSOCIATE PHOSPHORUS LEVEL Now 05/26/2022 5:50 Results for this AM YARD ASSOCIATE procedure are i n the results section. CALCIUM LEVEL TOTAL Now 05/26/2022 5:50 Resul ts for this AM YARD ASSOCIATE procedure are i n the results section. MAGNESIUM LEVEL Now 05/26/2022 5:50 Results f or this AM YARD ASSOCIATE procedure are i n the results section. GLUCOSE, RANDOM Now 05/26/2022 5:50 Results f or this AM YARD ASSOCIATE procedure are i n the results section. SERUM CREATININE Now 05/26/2022 5:50 AM YARD ASSOCIATE BLOOD UREA NITROGEN Now 05/26/2022 5:50 Resul ts for this AM YARD ASSOCIATE procedure are i n the results section. CARBON DIOXIDE LEVEL Now 05/26/2022 5:50 Resu lts for this AM YARD ASSOCIATE procedure are i n the results section. CHLORIDE LEVEL Now 05/26/2022 5:50 Results fo r this AM YARD ASSOCIATE procedure are i n the results section. POTASSIUM LEVEL Now 05/26/2022 5:50 Results f or this AM YARD ASSOCIATE procedure are i n the results section. SODIUM LEVEL Now 05/26/2022 5:50 Results for this AM YARD ASSOCIATE procedure are i n the results section. CALCIUM IONIZED, VENOUS Now 05/26/2022 5:50 R esults for this AM YARD ASSOCIATE procedure are i n the results section. OSCILLATORY PEP Routine 05/25/2022 8:46 PM YARD ASSOCIATE OSCILLATORY PEP Routine 05/25/2022 8:46 PM YARD ASSOCIATE OSCILLATORY PEP Routine 05/25/2022 8:46 PM YARD ASSOCIATE ANION GAP STAT 05/25/2022 11:26 Results for this AM YARD ASSOCIATE procedure are i n the results section. MANUAL DIFFERENTIAL STAT 05/25/2022 11:26 Resu lts for this AM YARD ASSOCIATE procedure are i n the results section. Results CBC STAT 05/25/2022 11:26 Results for this AM YARD ASSOCIATE procedure are i n the results section. .GLOMERULAR FILTRATION STAT 05/25/2022 11:26 R esults for this RATE AM YARD ASSOCIATE procedure are i n the results section. SERUM CREATININE STAT 05/25/2022 11:26 Results for this AM YARD ASSOCIATE procedure are i n the results section. COMPLETE BLOOD COUNT W/ STAT 05/25/2022 11:26 DIFFERENTIAL AM YARD ASSOCIATE PHOSPHORUS LEVEL STAT 05/25/2022 11:26 Results for this AM YARD ASSOCIATE procedure are i n the results section. CALCIUM IONIZED, VENOUS STAT 05/25/2022 11:26 Results for this AM YARD ASSOCIATE procedure are i n the results section. CALCIUM LEVEL TOTAL STAT 05/25/2022 11:26 Resu lts for this AM YARD ASSOCIATE procedure are i n the results section. MAGNESIUM LEVEL STAT 05/25/2022 11:26 Results for this AM YARD ASSOCIATE procedure are i n the results section. GLUCOSE, RANDOM STAT 05/25/2022 11:26 Results for this AM YARD ASSOCIATE procedure are i n the results section. SERUM CREATININE STAT 05/25/2022 11:26 AM YARD ASSOCIATE BLOOD UREA NITROGEN STAT 05/25/2022 11:26 Resu lts for this AM YARD ASSOCIATE procedure are i n the results section. CARBON DIOXIDE LEVEL STAT 05/25/2022 11:26 Res ults for this AM YARD ASSOCIATE procedure are i n the results section. CHLORIDE LEVEL STAT 05/25/2022 11:26 Results f or this AM YARD ASSOCIATE procedure are i n the results section. POTASSIUM LEVEL STAT 05/25/2022 11:26 Results for this AM YARD ASSOCIATE procedure are i n the results section. SODIUM LEVEL STAT 05/25/2022 11:26 Results for this AM YARD ASSOCIATE procedure are i n the results section. XR CHEST 1 VW STAT 05/25/2022 10:56 Results fo r this AM YARD ASSOCIATE procedure are i n the results section. PATHOLOGY SURGICAL Routine 05/25/2022 8:21 Adenocarcinoma, NOS Results for this INTERPRETATION AM YARD ASSOCIATE of upper lobe, lung proced ure are in <Left> the results section. ROBOTIC (RATS) 05/25/2022 6:27 Adenocarcinoma, NOS MEDIASTINAL AM YARD ASSOCIATE of upper lobe, lung LYMPHADENECTOMY <Left> Special Needs [id number]@500Use Dr. Walsh Block time 180mins ROBOTIC (RATS) LOBECTOMY 05/25/2022 6:27 AM YARD ASSOCIATE Adenoc arcinoma, NOS of upper lobe, lung <Left> Special Needs TT@500Use Dr. Walsh Block time 180mins TMP CROSSMATCH Routine 05/23/2022 9:58 AM Results for this INTERPRETATION YARD ASSOCIATE procedure are in the results section. TMP INTERPRETATION Routine 05/23/2022 9:58 AM Res ults for this ANTIBODY SCREEN NEGATIVE YARD ASSOCIATE pro cedure are in the results section. CLOT EXPIRATION DATE Routine 05/23/2022 9:58 AM R esults for this YARD ASSOCIATE procedure are i n the results section. ANTIBODY SCREEN Routine 05/23/2022 9:58 AM Adenocarcinoma, Res ults for this YARD ASSOCIATE NOS of upper procedure are i n lobe, lung <Left> the result s section. ABORH Routine 05/23/2022 9:58 AM Adenocarcinoma, Result s for this YARD ASSOCIATE NOS of upper procedure are i n lobe, lung <Left> the result s section. FRACTIONATED BILIRUBIN Routine 05/23/2022 9:58 AM Adenocarcino ma, Results for this YARD ASSOCIATE NOS of upper procedure are i n lobe, lung <Left> the result s section. TOTAL PROTEIN Routine 05/23/2022 9:58 AM Adenocarcinoma, Resul ts for this YARD ASSOCIATE NOS of upper procedure are i n lobe, lung <Left> the result s section. ASPARTATE Routine 05/23/2022 9:58 AM Adenocarcinoma, Result s for this AMINOTRANSFERASE YARD ASSOCIATE NOS of upper procedure a re in lobe, lung <Left> the result s section. ALANINE AMINOTRANSFERASE Routine 05/23/2022 9:58 AM Adenocarci noma, Results for this YARD ASSOCIATE NOS of upper procedure are i n lobe, lung <Left> the result s section. ALKALINE PHOSPHATASE Routine 05/23/2022 9:58 AM Adenocarcinoma , Results for this YARD ASSOCIATE NOS of upper procedure are i n lobe, lung <Left> the result s section. ALBUMIN LEVEL Routine 05/23/2022 9:58 AM Adenocarcinoma, Resul ts for this YARD ASSOCIATE NOS of upper procedure are i n lobe, lung <Left> the result s section. CALCIUM LEVEL TOTAL Routine 05/23/2022 9:58 AM Adenocarcinoma, Results for this YARD ASSOCIATE NOS of upper procedure are i n lobe, lung <Left> the result s section. .GLOMERULAR FILTRATION Routine 05/23/2022 9:58 AM Adenocarcino ma, Results for this RATE YARD ASSOCIATE NOS of upper procedure are i n lobe, lung <Left> the result s section. SERUM CREATININE Routine 05/23/2022 9:58 AM Adenocarcinoma, Re sults for this YARD ASSOCIATE NOS of upper procedure are i n lobe, lung <Left> the result s section. ELECTROLYTE PANEL Routine 05/23/2022 9:58 AM Adenocarcinoma, R esults for this YARD ASSOCIATE NOS of upper procedure are i n lobe, lung <Left> the result s section. BLOOD UREA NITROGEN Routine 05/23/2022 9:58 AM Adenocarcinoma, Results for this YARD ASSOCIATE NOS of upper procedure are i n lobe, lung <Left> the result s section. GLUCOSE LEVEL Routine 05/23/2022 9:58 AM Adenocarcinoma, Resul ts for this YARD ASSOCIATE NOS of upper procedure are i n lobe, lung <Left> the result s section. MANUAL DIFFERENTIAL Routine 05/23/2022 9:58 AM Adenocarcinoma, Results for this YARD ASSOCIATE NOS of upper procedure are i n lobe, lung <Left> the result s section. Results CBC Routine 05/23/2022 9:58 AM Adenocarcinoma, Result s for this YARD ASSOCIATE NOS of upper procedure are i n lobe, lung <Left> the result s section. TRANSFERRIN Routine 05/23/2022 9:58 AM Adenocarcinoma, Result s for this YARD ASSOCIATE NOS of upper procedure are i n lobe, lung <Left> the result s section. TYPE AND SCREEN Routine 05/23/2022 9:58 AM Adenocarcinoma, YARD ASSOCIATE NOS of upper lobe, lung <Left> APTT Routine 05/23/2022 9:58 AM Adenocarcinoma, Result s for this YARD ASSOCIATE NOS of upper procedure are i n lobe, lung <Left> the result s section. PROTHROMBIN TIME Routine 05/23/2022 9:58 AM Adenocarcinoma, Re sults for this YARD ASSOCIATE NOS of upper procedure are i n lobe, lung <Left> the result s section. IRON LEVEL Routine 05/23/2022 9:58 AM Adenocarcinoma, Result s for this YARD ASSOCIATE NOS of upper procedure are i n lobe, lung <Left> the result s section. HEMOGLOBIN A1C Routine 05/23/2022 9:58 AM Adenocarcinoma, Resu lts for this YARD ASSOCIATE NOS of upper procedure are i n lobe, lung <Left> the result s section. FERRITIN LVL Routine 05/23/2022 9:58 AM Adenocarcinoma, Result s for this YARD ASSOCIATE NOS of upper procedure are i n lobe, lung <Left> the result s section. FREE THYROXINE Routine 05/23/2022 9:58 AM Adenocarcinoma, Resu lts for this YARD ASSOCIATE NOS of upper procedure are i n lobe, lung <Left> the result s section. COMPREHENSIVE METABOLIC Routine 05/23/2022 9:58 AM Adenocarcin muriel, PANEL YARD ASSOCIATE NOS of upper lobe, lung <Left> COMPLETE BLOOD COUNT W/ Routine 05/23/2022 9:58 AM Adenocarcin muriel, DIFFERENTIAL YARD ASSOCIATE NOS of upper lobe, lung <Left> CONFIRM ABORH TYPE Routine 05/23/2022 9:56 AM Res ults for this YARD ASSOCIATE procedure are i n the results section. COVID-19 (SARS-COV-2) PCR Routine 05/23/2022 9:45 AM Suspected Results for this - ASYMPTOMATIC - [facility] YARD ASSOCIATE COVID-19 procedur e are in the results section. MANUAL DIFFERENTIAL Routine 05/09/2022 9:15 AM Adenocarcinoma, Results for this YARD ASSOCIATE NOS of upper procedure are i n lobe, lung <Left> the result s section. Results CBC Routine 05/09/2022 9:15 AM Adenocarcinoma, Result s for this YARD ASSOCIATE NOS of upper procedure are i n lobe, lung <Left> the result s section. FRACTIONATED BILIRUBIN Routine 05/09/2022 9:15 AM Adenocarcino ma, Results for this YARD ASSOCIATE NOS of upper procedure are i n lobe, lung <Left> the result s section. TOTAL PROTEIN Routine 05/09/2022 9:15 AM Adenocarcinoma, Resul ts for this YARD ASSOCIATE NOS of upper procedure are i n lobe, lung <Left> the result s section. ASPARTATE Routine 05/09/2022 9:15 AM Adenocarcinoma, Result s for this AMINOTRANSFERASE YARD ASSOCIATE NOS of upper procedure a re in lobe, lung <Left> the result s section. ALANINE AMINOTRANSFERASE Routine 05/09/2022 9:15 AM Adenocarci noma, Results for this YARD ASSOCIATE NOS of upper procedure are i n lobe, lung <Left> the result s section. ALKALINE PHOSPHATASE Routine 05/09/2022 9:15 AM Adenocarcinoma , Results for this YARD ASSOCIATE NOS of upper procedure are i n lobe, lung <Left> the result s section. ALBUMIN LEVEL Routine 05/09/2022 9:15 AM Adenocarcinoma, Resul ts for this YARD ASSOCIATE NOS of upper procedure are i n lobe, lung <Left> the result s section. CALCIUM LEVEL TOTAL Routine 05/09/2022 9:15 AM Adenocarcinoma, Results for this YARD ASSOCIATE NOS of upper procedure are i n lobe, lung <Left> the result s section. .GLOMERULAR FILTRATION Routine 05/09/2022 9:15 AM Adenocarcino ma, Results for this RATE YARD ASSOCIATE NOS of upper procedure are i n lobe, lung <Left> the result s section. SERUM CREATININE Routine 05/09/2022 9:15 AM Adenocarcinoma, Re sults for this YARD ASSOCIATE NOS of upper procedure are i n lobe, lung <Left> the result s section. ELECTROLYTE PANEL Routine 05/09/2022 9:15 AM Adenocarcinoma, R esults for this YARD ASSOCIATE NOS of upper procedure are i n lobe, lung <Left> the result s section. BLOOD UREA NITROGEN Routine 05/09/2022 9:15 AM Adenocarcinoma, Results for this YARD ASSOCIATE NOS of upper procedure are i n lobe, lung <Left> the result s section. GLUCOSE LEVEL Routine 05/09/2022 9:15 AM Adenocarcinoma, Resul ts for this YARD ASSOCIATE NOS of upper procedure are i n lobe, lung <Left> the result s section. MAGNESIUM LEVEL Routine 05/09/2022 9:15 AM Adenocarcinoma, Res ults for this YARD ASSOCIATE NOS of upper procedure are i n lobe, lung <Left> the result s section. PHOSPHORUS LEVEL Routine 05/09/2022 9:15 AM Adenocarcinoma, Re sults for this YARD ASSOCIATE NOS of upper procedure are i n lobe, lung <Left> the result s section. FREE THYROXINE Routine 05/09/2022 9:15 AM Adenocarcinoma, Resu lts for this YARD ASSOCIATE NOS of upper procedure are i n lobe, lung <Left> the result s section. THYROID STIMULATING Routine 05/09/2022 9:15 AM Adenocarcinoma, Results for this HORMONE YARD ASSOCIATE NOS of upper procedure are i n lobe, lung <Left> the result s section. COMPLETE BLOOD COUNT W/ Routine 05/09/2022 9:15 AM Adenocarcin muriel, DIFFERENTIAL YARD ASSOCIATE NOS of upper lobe, lung <Left> COMPREHENSIVE METABOLIC Routine 05/09/2022 9:15 AM Adenocarcin muriel, PANEL YARD ASSOCIATE NOS of upper lobe, lung <Left> FRACTIONATED BILIRUBIN Routine 04/17/2022 8:15 AM Adenocarcino ma, Results for this CDT NOS of upper procedure are i n lobe, lung <Left> the result s section. TOTAL PROTEIN Routine 04/17/2022 8:15 AM Adenocarcinoma, Resul ts for this CDT NOS of upper procedure are i n lobe, lung <Left> the result s section. ASPARTATE Routine 04/17/2022 8:15 AM Adenocarcinoma, Result s for this AMINOTRANSFERASE CDT NOS of upper procedure a re in lobe, lung <Left> the result s section. ALANINE AMINOTRANSFERASE Routine 04/17/2022 8:15 AM Adenocarci noma, Results for this CDT NOS of upper procedure are i n lobe, lung <Left> the result s section. ALKALINE PHOSPHATASE Routine 04/17/2022 8:15 AM Adenocarcinoma , Results for this CDT NOS of upper procedure are i n lobe, lung <Left> the result s section. ALBUMIN LEVEL Routine 04/17/2022 8:15 AM Adenocarcinoma, Resul ts for this CDT NOS of upper procedure are i n lobe, lung <Left> the result s section. CALCIUM LEVEL TOTAL Routine 04/17/2022 8:15 AM Adenocarcinoma, Results for this CDT NOS of upper procedure are i n lobe, lung <Left> the result s section. .GLOMERULAR FILTRATION Routine 04/17/2022 8:15 AM Adenocarcino ma, Results for this RATE CDT NOS of upper procedure are i n lobe, lung <Left> the result s section. SERUM CREATININE Routine 04/17/2022 8:15 AM Adenocarcinoma, Re sults for this CDT NOS of upper procedure are i n lobe, lung <Left> the result s section. ELECTROLYTE PANEL Routine 04/17/2022 8:15 AM Adenocarcinoma, R esults for this CDT NOS of upper procedure are i n lobe, lung <Left> the result s section. BLOOD UREA NITROGEN Routine 04/17/2022 8:15 AM Adenocarcinoma, Results for this CDT NOS of upper procedure are i n lobe, lung <Left> the result s section. GLUCOSE LEVEL Routine 04/17/2022 8:15 AM Adenocarcinoma, Resul ts for this CDT NOS of upper procedure are i n lobe, lung <Left> the result s section. MANUAL DIFFERENTIAL Routine 04/17/2022 8:15 AM Adenocarcinoma, Results for this CDT NOS of upper procedure are i n lobe, lung <Left> the result s section. Results CBC Routine 04/17/2022 8:15 AM Adenocarcinoma, Result s for this CDT NOS of upper procedure are i n lobe, lung <Left> the result s section. MAGNESIUM LEVEL Routine 04/17/2022 8:15 AM Adenocarcinoma, Res ults for this CDT NOS of upper procedure are i n lobe, lung <Left> the result s section. PHOSPHORUS LEVEL Routine 04/17/2022 8:15 AM Adenocarcinoma, Re sults for this CDT NOS of upper procedure are i n lobe, lung <Left> the result s section. COMPREHENSIVE METABOLIC Routine 04/17/2022 8:15 AM Adenocarcin muriel, PANEL CDT NOS of upper lobe, lung <Left> COMPLETE BLOOD COUNT W/ Routine 04/17/2022 8:15 AM Adenocarcin muriel, DIFFERENTIAL CDT NOS of upper lobe, lung <Left> MANUAL DIFFERENTIAL Routine 04/10/2022 10:38 Adenocarcinoma, R esults for this AM CDT NOS of upper procedure are i n lobe, lung <Left> the result s section. Results CBC Routine 04/10/2022 10:38 Adenocarcinoma, Results for this AM CDT NOS of upper procedure are i n lobe, lung <Left> the result s section. FRACTIONATED BILIRUBIN Routine 04/10/2022 10:38 Adenocarcinoma , Results for this AM CDT NOS of upper procedure are i n lobe, lung <Left> the result s section. TOTAL PROTEIN Routine 04/10/2022 10:38 Adenocarcinoma, Results for this AM CDT NOS of upper procedure are i n lobe, lung <Left> the result s section. ASPARTATE Routine 04/10/2022 10:38 Adenocarcinoma, Results for this AMINOTRANSFERASE AM CDT NOS of upper procedure a re in lobe, lung <Left> the result s section. ALANINE AMINOTRANSFERASE Routine 04/10/2022 10:38 Adenocarcino ma, Results for this AM CDT NOS of upper procedure are i n lobe, lung <Left> the result s section. ALKALINE PHOSPHATASE Routine 04/10/2022 10:38 Adenocarcinoma, Results for this AM CDT NOS of upper procedure are i n lobe, lung <Left> the result s section. ALBUMIN LEVEL Routine 04/10/2022 10:38 Adenocarcinoma, Results for this AM CDT NOS of upper procedure are i n lobe, lung <Left> the result s section. CALCIUM LEVEL TOTAL Routine 04/10/2022 10:38 Adenocarcinoma, R esults for this AM CDT NOS of upper procedure are i n lobe, lung <Left> the result s section. .GLOMERULAR FILTRATION Routine 04/10/2022 10:38 Adenocarcinoma , Results for this RATE AM CDT NOS of upper procedure are i n lobe, lung <Left> the result s section. SERUM CREATININE Routine 04/10/2022 10:38 Adenocarcinoma, Resu lts for this AM CDT NOS of upper procedure are i n lobe, lung <Left> the result s section. ELECTROLYTE PANEL Routine 04/10/2022 10:38 Adenocarcinoma, Res ults for this AM CDT NOS of upper procedure are i n lobe, lung <Left> the result s section. BLOOD UREA NITROGEN Routine 04/10/2022 10:38 Adenocarcinoma, R esults for this AM CDT NOS of upper procedure are i n lobe, lung <Left> the result s section. GLUCOSE LEVEL Routine 04/10/2022 10:38 Adenocarcinoma, Results for this AM CDT NOS of upper procedure are i n lobe, lung <Left> the result s section. FREE THYROXINE Routine 04/10/2022 10:38 Adenocarcinoma, Result s for this AM CDT NOS of upper procedure are i n lobe, lung <Left> the result s section. THYROID STIMULATING Routine 04/10/2022 10:38 Adenocarcinoma, R esults for this HORMONE AM CDT NOS of upper procedure are i n lobe, lung <Left> the result s section. PHOSPHORUS LEVEL Routine 04/10/2022 10:38 Adenocarcinoma, Resu lts for this AM CDT NOS of upper procedure are i n lobe, lung <Left> the result s section. MAGNESIUM LEVEL Routine 04/10/2022 10:38 Adenocarcinoma, Resul ts for this AM CDT NOS of upper procedure are i n lobe, lung <Left> the result s section. COMPLETE BLOOD COUNT W/ Routine 04/10/2022 10:38 Adenocarcinom a, DIFFERENTIAL AM CDT NOS of upper lobe, lung <Left> COMPREHENSIVE METABOLIC Routine 04/10/2022 10:38 Adenocarcinom a, PANEL AM CDT NOS of upper lobe, lung <Left> CT CHEST WO CONTRAST Routine 04/07/2022 9:08 AM Adenocarcinoma , Results for this CDT NOS of upper procedure are i n lobe, lung <Left> the result s section. 6 MINUTE WALK TEST Routine 03/20/2022 10:53 Chronic AM CDT bronchitis, not otherwise specified MANUAL DIFFERENTIAL Routine 03/20/2022 7:01 AM Adenocarcinoma, Results for this CDT NOS of upper procedure are i n lobe, lung <Left> the result s section. Results CBC Routine 03/20/2022 7:01 AM Adenocarcinoma, Result s for this CDT NOS of upper procedure are i n lobe, lung <Left> the result s section. FRACTIONATED BILIRUBIN Routine 03/20/2022 7:01 AM Adenocarcino josé miguel, Results for this CDT NOS of upper procedure are i n lobe, lung <Left> the result s section. TOTAL PROTEIN Routine 03/20/2022 7:01 AM Adenocarcinoma, Resul ts for this CDT NOS of upper procedure are i n lobe, lung <Left> the result s section. ASPARTATE Routine 03/20/2022 7:01 AM Adenocarcinoma, Result s for this AMINOTRANSFERASE CDT NOS of upper procedure a re in lobe, lung <Left> the result s section. ALANINE AMINOTRANSFERASE Routine 03/20/2022 7:01 AM Adenocarci noma, Results for this CDT NOS of upper procedure are i n lobe, lung <Left> the result s section. ALKALINE PHOSPHATASE Routine 03/20/2022 7:01 AM Adenocarcinoma , Results for this CDT NOS of upper procedure are i n lobe, lung <Left> the result s section. ALBUMIN LEVEL Routine 03/20/2022 7:01 AM Adenocarcinoma, Resul ts for this CDT NOS of upper procedure are i n lobe, lung <Left> the result s section. CALCIUM LEVEL TOTAL Routine 03/20/2022 7:01 AM Adenocarcinoma, Results for this CDT NOS of upper procedure are i n lobe, lung <Left> the result s section. .GLOMERULAR FILTRATION Routine 03/20/2022 7:01 AM Adenocarcino ma, Results for this RATE CDT NOS of upper procedure are i n lobe, lung <Left> the result s section. SERUM CREATININE Routine 03/20/2022 7:01 AM Adenocarcinoma, Re sults for this CDT NOS of upper procedure are i n lobe, lung <Left> the result s section. ELECTROLYTE PANEL Routine 03/20/2022 7:01 AM Adenocarcinoma, R esults for this CDT NOS of upper procedure are i n lobe, lung <Left> the result s section. BLOOD UREA NITROGEN Routine 03/20/2022 7:01 AM Adenocarcinoma, Results for this CDT NOS of upper procedure are i n lobe, lung <Left> the result s section. GLUCOSE LEVEL Routine 03/20/2022 7:01 AM Adenocarcinoma, Resul ts for this CDT NOS of upper procedure are i n lobe, lung <Left> the result s section. PHOSPHORUS LEVEL Routine 03/20/2022 7:01 AM Adenocarcinoma, Re sults for this CDT NOS of upper procedure are i n lobe, lung <Left> the result s section. MAGNESIUM LEVEL Routine 03/20/2022 7:01 AM Adenocarcinoma, Res ults for this CDT NOS of upper procedure are i n lobe, lung <Left> the result s section. COMPLETE BLOOD COUNT W/ Routine 03/20/2022 7:01 AM Adenocarcin muriel, DIFFERENTIAL CDT NOS of upper lobe, lung <Left> COMPREHENSIVE METABOLIC Routine 03/20/2022 7:01 AM Adenocarcin muriel, PANEL CDT NOS of upper lobe, lung <Left> MANUAL DIFFERENTIAL Routine 02/27/2022 8:30 AM Adenocarcinoma, Results for this CDT NOS of upper procedure are i n lobe, lung <Left> the result s section. Results CBC Routine 02/27/2022 8:30 AM Adenocarcinoma, Result s for this CDT NOS of upper procedure are i n lobe, lung <Left> the result s section. FRACTIONATED BILIRUBIN Routine 02/27/2022 8:30 AM Adenocarcino ma, Results for this CDT NOS of upper procedure are i n lobe, lung <Left> the result s section. TOTAL PROTEIN Routine 02/27/2022 8:30 AM Adenocarcinoma, Resul ts for this CDT NOS of upper procedure are i n lobe, lung <Left> the result s section. ASPARTATE Routine 02/27/2022 8:30 AM Adenocarcinoma, Result s for this AMINOTRANSFERASE CDT NOS of upper procedure a re in lobe, lung <Left> the result s section. ALANINE AMINOTRANSFERASE Routine 02/27/2022 8:30 AM Adenocarci noma, Results for this CDT NOS of upper procedure are i n lobe, lung <Left> the result s section. ALKALINE PHOSPHATASE Routine 02/27/2022 8:30 AM Adenocarcinoma , Results for this CDT NOS of upper procedure are i n lobe, lung <Left> the result s section. ALBUMIN LEVEL Routine 02/27/2022 8:30 AM Adenocarcinoma, Resul ts for this CDT NOS of upper procedure are i n lobe, lung <Left> the result s section. CALCIUM LEVEL TOTAL Routine 02/27/2022 8:30 AM Adenocarcinoma, Results for this CDT NOS of upper procedure are i n lobe, lung <Left> the result s section. .GLOMERULAR FILTRATION Routine 02/27/2022 8:30 AM Adenocarcino ma, Results for this RATE CDT NOS of upper procedure are i n lobe, lung <Left> the result s section. SERUM CREATININE Routine 02/27/2022 8:30 AM Adenocarcinoma, Re sults for this CDT NOS of upper procedure are i n lobe, lung <Left> the result s section. ELECTROLYTE PANEL Routine 02/27/2022 8:30 AM Adenocarcinoma, R esults for this CDT NOS of upper procedure are i n lobe, lung <Left> the result s section. BLOOD UREA NITROGEN Routine 02/27/2022 8:30 AM Adenocarcinoma, Results for this CDT NOS of upper procedure are i n lobe, lung <Left> the result s section. GLUCOSE LEVEL Routine 02/27/2022 8:30 AM Adenocarcinoma, Resul ts for this CDT NOS of upper procedure are i n lobe, lung <Left> the result s section. FREE THYROXINE Routine 02/27/2022 8:30 AM Adenocarcinoma, Resu lts for this CDT NOS of upper procedure are i n lobe, lung <Left> the result s section. THYROID STIMULATING Routine 02/27/2022 8:30 AM Adenocarcinoma, Results for this HORMONE CDT NOS of upper procedure are i n lobe, lung <Left> the result s section. PHOSPHORUS LEVEL Routine 02/27/2022 8:30 AM Adenocarcinoma, Re sults for this CDT NOS of upper procedure are i n lobe, lung <Left> the result s section. MAGNESIUM LEVEL Routine 02/27/2022 8:30 AM Adenocarcinoma, Res ults for this CDT NOS of upper procedure are i n lobe, lung <Left> the result s section. COMPLETE BLOOD COUNT W/ Routine 02/27/2022 8:30 AM Adenocarcin muriel, DIFFERENTIAL CDT NOS of upper lobe, lung <Left> COMPREHENSIVE METABOLIC Routine 02/27/2022 8:30 AM Adenocarcin muriel, PANEL CDT NOS of upper lobe, lung <Left> COVID-19 (SARS-COV-2) PCR Routine 02/11/2022 3:11 PM Suspected Results for this - ASYMPTOMATIC - MC CDT COVID-19 procedur e are in the results section. PETCT SUBSEQUENT Routine 02/07/2022 3:05 PM Adenocarcinoma, Re sults for this TREATMENT STRATEGY CDT NOS of upper procedure are in lobe, lung <Left> the result s section. MRI BRAIN W WO CONTRAST Routine 02/04/2022 10:41 Adenocarcinom a, Results for this AM CDT NOS of upper procedure are i n lobe, lung <Left> the result s section. SPIROMETRY W/DILATORS, Routine 02/03/2022 2:30 Adenocarcinoma , Results for this DLCO AND BODY PM CDT NOS of upper procedure are in PLETHSMOGRAPHIC LUNG lobe, lung <Left> th e results VOLUMES section. URINALYSIS MICROSCOPIC Routine 02/03/2022 1:10 PM Results for this CDT procedure are i n the results section. FRACTIONATED BILIRUBIN Now 02/03/2022 1:10 PM Adenocarcino ma, Results for this CDT NOS of upper procedure are i n lobe, lung <Left> the result s section. TOTAL PROTEIN Now 02/03/2022 1:10 PM Adenocarcinoma, Resul ts for this CDT NOS of upper procedure are i n lobe, lung <Left> the result s section. ASPARTATE Now 02/03/2022 1:10 PM Adenocarcinoma, Result s for this AMINOTRANSFERASE CDT NOS of upper procedure a re in lobe, lung <Left> the result s section. ALANINE AMINOTRANSFERASE Now 02/03/2022 1:10 PM Adenocarci noma, Results for this CDT NOS of upper procedure are i n lobe, lung <Left> the result s section. ALKALINE PHOSPHATASE Now 02/03/2022 1:10 PM Adenocarcinoma , Results for this CDT NOS of upper procedure are i n lobe, lung <Left> the result s section. ALBUMIN LEVEL Now 02/03/2022 1:10 PM Adenocarcinoma, Resul ts for this CDT NOS of upper procedure are i n lobe, lung <Left> the result s section. CALCIUM LEVEL TOTAL Now 02/03/2022 1:10 PM Adenocarcinoma, Results for this CDT NOS of upper procedure are i n lobe, lung <Left> the result s section. .GLOMERULAR FILTRATION Now 02/03/2022 1:10 PM Adenocarcino ma, Results for this RATE CDT NOS of upper procedure are i n lobe, lung <Left> the result s section. SERUM CREATININE Now 02/03/2022 1:10 PM Adenocarcinoma, Re sults for this CDT NOS of upper procedure are i n lobe, lung <Left> the result s section. ELECTROLYTE PANEL Now 02/03/2022 1:10 PM Adenocarcinoma, R esults for this CDT NOS of upper procedure are i n lobe, lung <Left> the result s section. BLOOD UREA NITROGEN Now 02/03/2022 1:10 PM Adenocarcinoma, Results for this CDT NOS of upper procedure are i n lobe, lung <Left> the result s section. GLUCOSE LEVEL Now 02/03/2022 1:10 PM Adenocarcinoma, Resul ts for this CDT NOS of upper procedure are i n lobe, lung <Left> the result s section. MANUAL DIFFERENTIAL Now 02/03/2022 1:10 PM Adenocarcinoma, Results for this CDT NOS of upper procedure are i n lobe, lung <Left> the result s section. Results CBC Now 02/03/2022 1:10 PM Adenocarcinoma, Result s for this CDT NOS of upper procedure are i n lobe, lung <Left> the result s section. URINALYSIS WITH Now 02/03/2022 1:10 PM Adenocarcinoma, Res ults for this MICROSCOPIC IF INDICATED CDT NOS of upper pro cedure are in lobe, lung <Left> the result s section. MAGNESIUM LEVEL Now 02/03/2022 1:10 PM Adenocarcinoma, Res ults for this CDT NOS of upper procedure are i n lobe, lung <Left> the result s section. LACTATE DEHYDROGENASE Now 02/03/2022 1:10 PM Adenocarcinom a, Results for this CDT NOS of upper procedure are i n lobe, lung <Left> the result s section. GAMMA GLUTAMYL Now 02/03/2022 1:10 PM Adenocarcinoma, Resu lts for this TRANSFERASE CDT NOS of upper procedure are i n lobe, lung <Left> the result s section. LIPASE LEVEL Now 02/03/2022 1:10 PM Adenocarcinoma, Result s for this CDT NOS of upper procedure are i n lobe, lung <Left> the result s section. AMYLASE LEVEL Now 02/03/2022 1:10 PM Adenocarcinoma, Resul ts for this CDT NOS of upper procedure are i n lobe, lung <Left> the result s section. HEPATITIS C VIRUS AB Now 02/03/2022 1:10 PM Adenocarcinoma , Results for this SCREEN W/REFLEX HCV PCR CDT NOS of upper proc edure are in lobe, lung <Left> the result s section. HEPATITIS B SURFACE Now 02/03/2022 1:10 PM Adenocarcinoma, Results for this ANTIGEN, SERUM CDT NOS of upper procedure are in lobe, lung <Left> the result s section. THYROID STIMULATING Now 02/03/2022 1:10 PM Adenocarcinoma, Results for this HORMONE CDT NOS of upper procedure are i n lobe, lung <Left> the result s section. CORTISOL Now 02/03/2022 1:10 PM Adenocarcinoma, Result s for this CDT NOS of upper procedure are i n lobe, lung <Left> the result s section. COMPREHENSIVE METABOLIC Now 02/03/2022 1:10 PM Adenocarcin muriel, PANEL CDT NOS of upper lobe, lung <Left> COMPLETE BLOOD COUNT W/ Now 02/03/2022 1:10 PM Adenocarcin muriel, DIFFERENTIAL CDT NOS of upper lobe, lung <Left> PROTHROMBIN TIME Now 02/03/2022 1:10 PM Adenocarcinoma, Re sults for this CDT NOS of upper procedure are i n lobe, lung <Left> the result s section. APTT Now 02/03/2022 1:10 PM Adenocarcinoma, Result s for this CDT NOS of upper procedure are i n lobe, lung <Left> the result s section. EKG, 12-LEAD (SCHEDULED) Routine 02/03/2022 Adenocarcinoma, NOS of upper lobe, lung <Left> TISSUE SLIDES MATERIAL Routine 01/29/2022 12:43 Adenocarcinoma , REQUEST PM CDT NOS of upper lobe, lung <Left> AP FISH ROS1 MATERIAL Routine 01/22/2022 6:11 PM Adenocarcinom a, REQUEST CDT NOS of upper lobe, lung <Left> AP FISH ALK MATERIAL Routine 01/22/2022 6:11 PM Adenocarcinoma , REQUEST CDT NOS of upper lobe, lung <Left> after 01/19/2022 Results (ABNORMAL) .Serum Creatinine (01/09/2023 9:57 AM CDT)Only the most recent of14 resultswithin the time period is included. athologist Signature Creatinine 1.34 (H) 0.51 - 0.95 [place] mg/dL Comment: Testing performed at [facility], [address] [place] [address], [place] [address] Specimen Anatomical Collection Method Collection Time Receive d Time (Source) Location / / Volume Laterality Blood 01/09/2023 9:57 AM 9:58 CDT AM CDT Narrative [place] - 01/09/2023 10:36 AM CDT 4-6 month time frame ok. Telephone ok. t hanks Seth Fernandez MD LAB BLOOD ORDERABLES Performing Organization Address City/State/[place] [address] [place] [address] (ABNORMAL) .CBC (01/09/2023 9:57 AM CDT)Only the most recent of14 resultswithin the time period is included. athologist Signature WBC 6.4 4.0 - 11.0 [place] K/uL Comment: All components of the CBC perfo rmed at [facility], [address] [place] [address], [place] [address] RBC 3.93 (L) 4.00 - 5.50 M/uL [place] Comment: All components of the CBC perfo rmed at [facility], [address] [place] [address], [place] [address] Hgb 11.2 (L) 12.0 - 16.0 gm/dL [place] Comment: As part of CBC or as an individ ual orderable testing performed at [facility], [address] [place] [address], [place] [address] Hct 36.6 (L) 37.0 - 47.0 % [place] Comment: As part of CBC testing performe d at [facility], [address] [place] [address], [place] [address] MCV 93 82 - 98 fL [place] Comment: As part of CBC testing performe d at [facility], [address] [place] [address] MCH 28.5 27.0 - 31.0 pg [place] Comment: As part of CBC testing performe d at [facility], [address] [place] [address] MCHC 30.6 (L) 31.0 - 36.0 gm/dL [place] Comment: As part of CBC testing performe d at [facility], [address] [place] [address], [place] [address] RDW-SD 49.2 (H) 35.1 - 46.3 fL [place] Comment: As part of CBC testing performe d at [facility], [address] [place] [address], [facility]573 RDW-CV 14.4 12.0 - 15.5 % [place] Comment: As part of CBC testing performe d at [facility], [address] [place] [address], [place] [address] Platelet count 189 140 - 440 K/uL [facility] Comment: As part of CBC or an individual orderable testing performed at [facility], [address] [place] [address] MPV 7.9 4.0 - 10.4 fL [place] Comment: As part of CBC testing performe d at [facility], [address] [place] [address] Specimen Anatomical Collection Method Collection Time Receive d Time (Source) Location / / Volume Laterality Blood 01/09/2023 9:57 AM 9:58 CDT AM CDT Narrative [place] - 01/09/2023 10:01 AM CDT 4-6 month time frame ok. Telephone ok. t hanks Seth Fernandez MD LAB BLOOD ORDERABLES Performing Organization Address City/State/ZIP Code Phon e Number [place], [place] [address] [place] [address] (ABNORMAL) Glomerular Filtration Rate (01/09/2023 9:57 AM CDT)Only the most recent of14 resultswithin the time period is included. P athologist Signature eGFR 40 (L) >=60 [place] mL/min/1.73 sq. m Comment: The eGFRcr is [...] fulfill criteria for CKD. Testing performed at [facility], [address] [place] [address] Specimen Anatomical Collection Method Collection Time Receive d Time (Source) Location / / Volume Laterality Blood 01/09/2023 9:57 AM 3 9:58 CDT AM CDT Narrative [place] - 01/09/2023 10:36 AM CDT 4-6 month time frame ok. Telephone ok. t hanks Seth Fernandez MD LAB BLOOD ORDERABLES Performing Organization Address City/State/ZIP Code Phon e Number [place], [place] [id number] [place] [address] Fractionated Bilirubin (01/09/2023 9:57 AM CDT)Only the most recent of14 results within the time period is included. athologist Signature Bili Total 0.3 <=1.2 mg/dL [place] Comment: Indocyanine Green (ICG) may cause falsel y elevated bilirubin results. Total and direct bilirubin must not be measured from samples containing indocyanine green. False elevation of total bilirubin can b e seen in patients with IgG concentrations above 28 g/L. Testing performed at [facility], [address] [place] [address] Bili Direct <0.2 <=0.3 mg/dL [place] Comment: Indocyanine Green (ICG) may cause falsel y elevated bilirubin results. Total and direct bilirubin must not be measured from samples containing indocyanine green. Testing performed at [facility], [address] [place] [address] Bili Indirect See Note 0.0 - 0.9 mg/dL [facility] Comment: Unable to calculate Indirect Bilirubin r esult due to some parameters are outside reportable range Testing performed at [facility], [address] [place] [address] Specimen Anatomical Collection Method Collection Time Receive d Time (Source) Location / / Volume Laterality Blood 01/09/2023 9:57 AM 9:58 CDT AM CDT Narrative [place] - 01/09/2023 10:36 AM CDT 4-6 month time frame ok. Telephone ok. t hanks Seth Fernandez MD LAB BLOOD ORDERABLES Performing Organization Address City/State/ZIP Code Phon e Number [place], [place] [address] [place] [address] (ABNORMAL) Differential (01/09/2023 9:57 AM CDT)Only the most recent of14 resultswithin the time period is included. athologist Signature Neutrophil % 63.8 42.0 - 66.0 [place] % Comment: All components of the Different ial performed at [facility], [address] [place] [address] Lymphocyte % 21.9 (L) 24.0 - 44.0 % [place] Comment: As part of the Differential calixto ting performed at [facility], [address] [place] [address] Monocyte % 8.0 (H) 2.0 - 7.0 % [place] Comment: As part of the Differential calixto ting performed at [facility], [address] [place] [address] Eosinophil % 5.5 (H) 1.0 - 4.0 % [place] Comment: As part of the Differential calixto ting performed at [facility], [address] [place], [place] [id number] Basophil % 0.6 0.0 - 1.0 % [place] Comment: As part of the Differential calixto ting performed at [facility], [address] [place] [address] IGRE % 0.2 0.0 - 0.4 % [place] Comment: IGRE % count includes Metamyelocytes, My elocytes, and Promyelocytes. As part of the Differential testing perf ormed at [facility], [address] [place] [address] Neutrophil Abs 4.09 1.70 - 7.30 K/uL [facility] Comment: As part of the Differential calixto ting performed at [facility], [address] [place] [address] Lymphocyte Abs 1.40 1.00 - 4.80 K/uL [facility] Comment: As part of the Differential calixto ting performed at [facility], [address] [place] [address] Monocyte Abs 0.51 0.08 - 0.70 K/uL [facility] Comment: As part of the Differential calixto ting performed at [facility], [address] [place] [address] Eosinophil Abs 0.35 0.04 - 0.40 K/uL [facility] Comment: As part of the Differential calixto ting performed at [facility], [address] [place] [address] Basophil Abs 0.04 0.00 - 0.10 K/uL [facility] Comment: As part of the Differential calixto ting performed at [facility], [address] [place] [address] IG Abs 0.01 0.00 - 0.04 K/uL [place] Comment: As part of the Differential calixto ting performed at [facility], [address] [place] [address] Specimen Anatomical Collection Method Collection Time Receive d Time (Source) Location / / Volume Laterality Blood 01/09/2023 9:57 AM 3 9:58 CDT AM CDT Narrative [place] - 01/09/2023 10:01 AM CDT 4-6 month time frame ok. Telephone ok. t sherita Seth Fernandez MD LAB BLOOD ORDERABLES Performing Organization Address City/State/ZIP Code Phon e Number [address] BUN (01/09/2023 9:57 AM CDT)Only the most recent of14 resultswithin the time period is included. athologist Signature BUN 19 6 - 23 mg/dL [place] Comment: Testing performed at [facility], [address] [place] [address] Specimen Anatomical Collection Method Collection Time Receive d Time (Source) Location / / Volume Laterality Blood 01/09/2023 9:57 AM 3 9:58 CDT AM CDT [facility] - 01/09/2023 10:36 AM CDT 4-6 month time frame ok. Telephone ok. t hanks Seth Fernandez MD LAB BLOOD ORDERABLES Performing Organization Address City/[facility] Code Phon e Number [address] ALT (01/09/2023 9:57 AM CDT)Only the most recent of14 resultswithin the time period is included. athologist Signature ALT 11 <=33 U/L [place] Comment: Testing performed at [facility], [address] [place] [address] Specimen Anatomical Collection Method Collection Time Receive d Time (Source) Location / / Volume Laterality Blood 01/09/2023 9:57 AM 3 9:58 CDT AM CDT [facility] - 01/09/2023 10:36 AM CDT 4-6 month time frame ok. Telephone ok. t hanks Seth Fernandez MD LAB BLOOD ORDERABLES Performing Organization Address City/[facility] Phon e Number [address] Aspartate Aminotransferase (01/09/2023 9:57 AM CDT)Only the most recent of14 resultswithin the time period is included. athologist Signature AST 21 <=32 U/L [place] Comment: Testing performed at [facility], [address] [place] [address] Specimen Anatomical Collection Method Collection Time Receive d Time (Source) Location / / Volume Laterality Blood 01/09/2023 9:57 AM 3 9:58 CDT AM CDT [facility] - 01/09/2023 10:36 AM CDT 4-6 month time frame ok. Telephone ok. t timoteos Seth Fernandez MD LAB BLOOD ORDERABLES Performing Organization Address City/[facility]/ZIP [facility] Phon e [address] Total Protein (01/09/2023 9:57 AM CDT)Only the most recent of14 resultswithin the time period is included. P athologist Signature Total Protein 6.6 6.4 - 8.3 [place] g/dL Comment: Testing performed at [facility], [address] [place] [address] Specimen Anatomical Collection Method Collection Time Receive d Time (Source) Location / / Volume Laterality Blood 01/09/2023 9:57 AM 3 9:58 CDT AM CDT [facility] - 01/09/2023 10:36 AM CDT 4-6 month time frame ok. Telephone ok. t timoteos Seth Fernandez MD LAB BLOOD ORDERABLES Performing Organization Address City/[facility] Code Phon e [address] Alkaline Phosphatase (01/09/2023 9:57 AM CDT)Only the most recent of14 results within the time period is included. P athologist Signature Alk Phos 85 35 - 104 U/L [place] Comment: Testing performed at [facility], [address] [place] [address] Specimen Anatomical Collection Method Collection Time Receive d Time (Source) Location / / Volume Laterality Blood 01/09/2023 9:57 AM 3 9:58 CDT AM CDT [facility] - 01/09/2023 10:36 AM CDT 4-6 month time frame ok. Telephone ok. t sherita Seth Fernandez MD LAB BLOOD ORDERABLES Performing Organization Address City/State/[place] [address] [place] [address] Glucose Level (01/09/2023 9:57 AM CDT)Only the most recent of12 resultswithin the time period is included. athologist Signature Glucose Level 98 70 - 99 [place] mg/dL Comment: Effective 01/12/16, the glucose reference intervals have been updated based on [place] [employer] guidelines (Standards of Medical Care in Diabetes 2016. Diabetes Care 2016; 39: S13-S22). Fasting blood glucose: Normal: 70-99 mg/dL Impaired fasting glucose (increased risk for diabetes or pre-diabetes): 100- 125 mg/dL Diabetes mellitus: >/=126 mg/dL Random blood glucose: Normal: 70-199 mg/dL Note: Random glucose >100 mg/dL is assoc iated with increased risk for diabetes [facility], [address] [place] [address] Specimen Anatomical Collection Method Collection Time Receive d Time (Source) Location / / Volume Laterality Blood 01/09/2023 9:57 AM 3 9:58 CDT AM CDT [facility] 01/09/2023 10:36 AM CDT 4-6 month time frame ok. Telephone ok. torito magallon Seth Fernandez MD LAB BLOOD ORDERABLES Performing Organization Address City/State/[place] [address] [place] [address] Calcium Level (01/09/2023 9:57 AM CDT)Only the most recent of14 resultswithin the time period is included. athologist Signature Calcium Lvl 9.6 8.4 - 10.2 [place] mg/dL Comment: [facility], [address] [place] [address] Specimen Anatomical Collection Method Collection Time Receive d Time (Source) Location / / Volume Laterality Blood 01/09/2023 9:57 AM 3 9:58 CDT AM CDT [facility] 01/09/2023 10:36 AM CDT 4-6 month time frame ok. Telephone ok. t hanks Seth Fernandez MD LAB BLOOD ORDERABLES Performing Organization Address City/[facility]/ZIP Code Phon e Number [place], [place] [id number] [place] [address] Albumin Level (01/09/2023 9:57 AM CDT)Only the most recent of14 resultswithin the time period is included. athologist Signature Albumin Lvl 4.1 3.5 - 5.2 [place] gm/dL Comment: Testing performed at [facility], [address] [place] [address] Specimen Anatomical Collection Method Collection Time Receive d Time (Source) Location / / Volume Laterality Blood 01/09/2023 9:57 AM 9:58 CDT AM CDT [facility] - 01/09/2023 10:36 AM CDT 4-6 month time frame ok. Telephone ok. t hanks Seth Fernandez MD LAB BLOOD ORDERABLES Performing Organization Address City/[facility] Phon e Number [place], [place] [id number] [place] [address] Electrolyte Panel (01/09/2023 9:57 AM CDT)Only the most recent of12 results within the time period is included. athologist Signature Sodium Lvl 141 136 - 145 [place] mEq/L Comment: Testing performed at [facility], [address] [place] [address] Potassium Lvl 4.5 3.5 - 5.1 mEq/L [facility] Comment: Testing performed at [facility], [address] [place] [address] Chloride 106 98 - 107 mEq/L [place] Comment: Testing performed at [facility], [address] [place] [address] CO2 26 22 - 29 mEq/L [place] Comment: Testing performed at [facility], [address] [place] [address] Anion Gap 9 4 - 14 mEq/L [place] Comment: Testing performed at [facility], [address] [place] [address] Specimen Anatomical Collection Method Collection Time Receive d Time (Source) Location / / Volume Laterality Blood 01/09/2023 9:57 AM 9:58 CDT AM CDT Narrative [place] - 01/09/2023 10:36 AM CDT 4-6 month time frame ok. Telephone ok. t hanks Seth Fernandez MD LAB BLOOD ORDERABLES Performing Organization Address City/State/ZIP Code Phon e Number [facility] [place] [address] [place] [address] CT Chest with Contrast (11/02/2022 10:11 AM CDT) Anatomical Region Laterality Modality Chest Computed Tomography Specimen (Source) Anatomical Collection Method Collection Time Re ceived Time Location / / Volume Laterality 11/03/2022 3:03 PM CDT Impressions 11/03/2022 3:18 PM CDT Stable findings of left upper lobectomy. Nonspecific subcentimeter pulmonary nodules are stable. 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 Findings: Tubes and Lines: None Lungs and Airways: The patient is status post left upper lobectomy. There are stable 2 to 4 mm pulmonary nodules. There are stable linear opacities in the right upper lobe likely related to scarring. Pleura: The pleural spaces are clear. Heart and Mediastinum: 1 cm right dano r lymph node is unchanged 8mm paraesophageal lymph node is unchanged.. The heart and mediastinum are shifted to the left. Mild atherosclerotic calcification of coronary arteries is noted. Soft Tissues: Normal. Upper Abdomen: Hypodense hepatic lesions are stable. No evidence of hydronephrosis in the visualized kidneys. The adrenal glands are unchanged. Bones: The visualized bony thorax show s degenerative changes. 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 Findings: Tubes and Lines: None Lungs and Airways: The patient is status post left upper lobectomy. There are stable 2 to 4 mm pulmonary nodules. There are stable linear opacities in the right upper lobe likely related to scarring. Pleura: The pleural spaces are clear. Heart and Mediastinum: 1 cm right hilar lymph node is unchanged 8mm paraesophageal lymph node is unchanged.. The heart and mediastinum are shifted to the left. Mild atherosclerotic calcification of coronary arteries is noted. Soft Tissues: Normal. Upper Abdomen: Hypodense hepatic lesions are stable. No evidence of hydronephrosis in the visualized kidneys. The adrenal glands are unchanged. Bones: The visualized bony thorax shows degenerative changes. IMPRESSION: Stable findings of left upper lobectomy. Nonspecific subcentimeter pulmonary nodules are stable. Josephine Modi APRN IMG CT ORDERABLES TSH (11/02/2022 9:04 AM CDT)Only the most recent of6 resultswithin the time period is included. athologist Signature TSH 2.56 0.27 - 4.20 [place] mcunit/mL Comment: Testing performed at [facility], [address] [place] [address] Specimen Anatomical Collection Method Collection Time Receive d Time (Source) Location / / Volume Laterality Blood 11/02/2022 9:04 AM 3 9:04 CDT AM CDT Sofy [facility] LAB BLOOD ORDERABLES Performing Organization Address City/State/[place] [address] 2280 [facility] (ABNORMAL) Free T4 (11/02/2022 9:04 AM CDT)Only the most recent of5 results within the time period is included. athologist Signature T4 Free 0.92 (L) 0.93 - 1.70 [place] ng/dL Comment: Testing performed at [facility], [address] [place] [address] Specimen Anatomical Collection Method Collection Time Receive d Time (Source) Location / / Volume Laterality Blood 11/02/2022 9:04 AM 3 9:04 CDT AM CDT Sofy [facility] LAB BLOOD ORDERABLES Performing Organization Address City/State/ZIP Code Phon e Number [place], [place] [id number] [place] [address] Research Protocol [id number] (09/12/2022 9:10 AM CDT) [facility] Research Prot [id number] [facility] Specimen Anatomical Collection Method Collection Time Receive d Time (Source) Location / / Volume Laterality Blood 09/12/2022 9:10 AM 3 9:38 CDT AM CDT Narrative [facility] - 3 3:28 PM CDT Link with existing labwork already sched uled. Sofy [facility] RESEARCH LAB Z CODES Performing Organization Address City/State/ZIP Code Phon e Number [facility] CANCER Unless otherwise noted, [place] [address] [place] all lab tests performed by: Division of Pathology and Laboratory Medicine [address] (ABNORMAL) GGT (08/21/2022 10:43 AM YARD ASSOCIATE)Only the most recent of5 resultswithin the time period is included. athologist [facility] GGT 119 (H) 5 - 36 U/L [place] Comment: Testing performed at [facility], [address] [place] [address] Specimen Anatomical Collection Method Collection Time Receive d Time (Source) Location / / Volume Laterality Blood 08/21/2022 10:43 08/21/2022 AM YARD ASSOCIATE 10:43 AM YARD ASSOCIATE Narrative [place] - 08/21/2022 11:22 AM YARD ASSOCIATE [place]on Sofy [facility] LAB BLOOD ORDERABLES Performing Organization Address City/[facility]/ZIP Code Phon e Number [facility], [place] [address] 7246 [facility] (ABNORMAL) EBV Quant PCR, Plasma (08/07/2022 9:30 AM YARD ASSOCIATE) Analysis Performed At Patho logist Time Signature EBV Quant PCR <35.0 (H) <=0.0 UT MD IU/mL [facility] Comment: Normal Range: Target Not Detected. Results are expressed in EBV DNA IU/ml p lasma. Reportable Range: 35 to 50,000,000 EBV DNA IU/mL; values between 50,000,000 to 100,000,000 EBV DNA IU/ml may be reported but these should be interpreted with caution as this range of the assay has not been internally verified. The clinical significance of EBV viral loads at 50,000,000 IU/ml v ersus those above 50,000,000 is unclear. Specimens that are detected as positive but below the level of quantitation are reported out as < 35 EBV DNA IU/ml. Limit of Detection is 20 EBV DNA IU/mL. Methodology: The extraction and quanti tation of Joel-Sandoval Virus (EBV) DNA in human plasma is performed using the MARCUS Stunable0 System. Amplification of viral DNA is achieved using polymerase chain fransisca ction (PCR). Internal controls are inclu ded to assess for possible amplification inhibitors. If inhibition is detected, the specimen is tested again and if inhibition is confirmed the specimen is resulted as 'Invalid'. When an 'Invalid' result occurs, it is recommended to wait a minimum of 7-10 days before submitting a new specimen for testing. This is an FDA-approved assay and its pe rformance characteristics were verified by the microbiology laboratory at the [facility] [place]. Results must be interpreted within th e context of all relevant clinical and l aboratory findings. Specimen Anatomical Collection Method Collection Time Receive d Time (Source) Location / / Volume Laterality Blood 08/07/2022 9:30 AM 3 4:20 YARD ASSOCIATE PM YARD ASSOCIATE Narrative [facility] - 3 12:42 PM YARD ASSOCIATE [place] Sofy [facility] MICROBIOLOGY - GENERAL ORDER FLOR Performing Organization Address City/[facility]/ZIP Code Phon e Number [facility]CER Unless otherwise noted, [place], [place] [id number] [place] [address] all lab tests performed by: Division of Pathology and Laboratory Medicine [address] Hepatitis E Virus by Quant PCR [facility] (08/07/2022 9:30 AM YARD ASSOCIATE) [facility] Method Time Signature Hepatitis E <3.3 [facility] Quant by PCR, LABORATORY Log IU/mL Hepatitis E Not Detected Not Detected [facility] Quant by PCR, LABORATORY Interp Comment: INTERPRETIVE INFORMATION: Hepatitis E Vi kathrin by Quantitative P CR The quantitative range of this assay is 3.3- 8.3 log IU/mL (1,800- 180,000,000 IU/mL). One IU/mL of HEV RNA is approximately 2.25 copies/mL. A negative result (less than 3.3 log I U/mL or less than 1,800 IU/mL) does not rule out the presence of PCR inhibitors in the patient specimen or HEV RNA concentratio ns below the level of detection of the test. Inhibition may al so lead to underestimation of viral quantitation. This test was developed and its performa nce characteristics determined by [facility]. It has not been cleared or approved by the US Food and Drug Adminis tration. This test was performed in a CLIA certified laboratory and is intended for clinical purposes. Performed By: [address] [address] [employer] Operator: Nhan Wadsworth MD, PHD Hepatitis E Quant by PCR, IU/mL <1,800 IU/mL [facility] Hepatitis E Quant by PCR, Source Serum [facility] Specimen Anatomical Collection Method Collection Time Receive d Time (Source) Location / / Volume Laterality Blood 08/07/2022 9:30 AM 9:33 YARD ASSOCIATE AM YARD ASSOCIATE Narrative [facility] - 08/13/2022 2:19 PM YARD ASSOCIATE [place]on Sofy [facility] LAB BLOOD ORDERABLES Performing Organization Address City/State/ZIP Code Phon e Number [address] [address] Antinuclear Antibody (JILLIAN) HEp-2 Substrate, IgG (08/07/2022 9:30 AM YARD ASSOCIATE) [facility] Method Time Signature JILLIAN HEp-2 See Footnote <1:80 PA MD [place] ([facility] ) [facility] Comment: RESULT: <1:80 (Negative) ADDITIONAL INFORMATIO N Method: Immunofluorescence using HEp-2 c ellular substrate. Test Performed by: [place] [address] Locomotive Mechanic: Kushal Cannon M.D. Ph. D.; CLIA# [id number] Specimen Anatomical Collection Method Collection Time Receive d Time (Source) Location / / Volume Laterality Blood 08/07/2022 9:30 AM 3 9:33 YARD ASSOCIATE AM YARD ASSOCIATE Narrative [facility] - 3 7:20 PM YARD ASSOCIATE Avon Sofy [facility] LAB BLOOD ORDERABLES Performing Organization Address [facility] Phon e Number [facility] Unless otherwise noted, [address] all lab tests performed by: Division of Pathology and Laboratory Medicine [address] [place] [address] Hepatitis A Antibody IgG (08/07/2022 9:30 AM YARD ASSOCIATE) athologist Signature Hepatitis A Negative [facility] Comment: Result indicates no past exposure or imm unity to hepatitis A infection. REFERENCE VALUE------ Unvaccinated: Negative Vaccinated: Positive Test Performed by: [place] [address] Locomotive Mechanic: Kushal Cannon M.D. Ph. D.; CLIA# [id number] Specimen Anatomical Collection Method Collection Time Receive d Time (Source) Location / / Volume Laterality Blood 08/07/2022 9:30 AM 3 9:33 YARD ASSOCIATE AM YARD ASSOCIATE Narrative [facility] - 3 11:08 AM YARD ASSOCIATE [place]on Sofy [facility] LAB BLOOD ORDERABLES Performing Organization Address City/[facility] Phon e Number [facility] Unless otherwise noted, [address] all lab tests performed by: Division of Pathology and Laboratory Medicine [address] [place] [address] HIV-1/2 Antigen and Antibodies, Fourth Generation (08/07/2022 9:30 AM YARD ASSOCIATE) Analysis Performed At Path logist Time Signature HIV Ag/Ab, 4TH NON-REACTI NON-REACTI [facility] Gen VE VE Comment: HIV-1 antigen and HIV-1/HIV-2 antibodies were not detected. There is no laboratory evidenc e of HIV infection. PLEASE NOTE: This information has been d isclosed to you from records whose confidentiality m ay be protected by state law. If your state requires such protection, then the state law prohibits you from making any further disclosure of the inf ormation without the specific written consent of the person to whom it pertains, or as otherwise per mitted by law. A general authorization for the release of medical or other information is NOT sufficient for this purpose. For additional information please refer to http://education.Drobo.[employer]/fa q/HID155 (This link is being provided for informa tional/ educational purposes only.) The performance of this assay has not be en clinically validated in patients less than 2 years old. Lab test performed by: Lab Mnemonic: [facility] [address] [address] MELISSA JOSHI MD Specimen Anatomical Collection Method Collection Time Receive d Time (Source) Location / / Volume Laterality Blood 08/07/2022 9:30 AM 3 3:29 YARD ASSOCIATE PM YARD ASSOCIATE Narrative [facility] - 08/07/2022 10:33 PM YARD ASSOCIATE Avon Sofy [facility] BLOOD ORDERABLES Performing Organization Address City/State/ZIP Code Phon e Number [facility] Hepatitis C Virus RNA Detect/Quant (08/07/2022 9:30 AM YARD ASSOCIATE) [facility] gist Method Time Signature HepC RNA PCR Undetected Undetected PA MD [place] IU/mL [facility] Comment: Result in log IU/mL is Undetected. ADDITIONAL INFORMATIO N The quantification range of this assay i s 15 to 100,000,000 IU/mL (1.18 log to 8.00 log IU/mL). Test ing was performed using the marcus HCV test ([employer] with the marcus 6800 System. Test Performed by: [place] [address] Locomotive Mechanic: Kushal Cannon M.D. Ph. D.; CLIA# [id number] Specimen Anatomical Collection Method Collection Time Receive d Time (Source) Location / / Volume Laterality Blood 08/07/2022 9:30 AM 3 9:33 YARD ASSOCIATE AM YARD ASSOCIATE Narrative [facility] - 3 3:15 PM YARD ASSOCIATE Avon Sofy [facility] LAB BLOOD ORDERABLES Performing Organization Address City/State/ZIP Code Phon e Number [facility] Unless otherwise noted, [address] all lab tests performed by: Division of Pathology and Laboratory Medicine [facility] HBV DNA Quant (08/07/2022 9:30 AM YARD ASSOCIATE) [facility] Method Time Signature HBV DNA Undetected Undetected [facility] IU/mL [facility] Comment: Result in log IU/mL is Undetected. ADDITIONAL INFORMATIO N The quantification range of this assay i s 10 to 1,000,000,000 IU/mL (1.00 log to 9.00 lo g IU/mL). Testing was performed using the marcus HBV test ( [employer] with the marcus 6800 Syste m. Test Performed by: [place] [address] Locomotive Mechanic: Kushal Cannon M.D. Ph. D.; CLIA# [id number] Specimen Anatomical Collection Method Collection Time Receive d Time (Source) Location / / Volume Laterality Blood 08/07/2022 9:30 AM 3 9:33 YARD ASSOCIATE AM YARD ASSOCIATE Narrative [facility] - 3 2:46 PM YARD ASSOCIATE Avon Sofy [facility] LAB BLOOD ORDERABLES Performing Organization Address City/State/[facility] Phon e Number [facility] Unless otherwise noted, [address] all lab tests performed by: Division of Pathology and Laboratory Medicine [address] [place] [address] CMV Quant PCR (08/07/2022 9:30 AM YARD ASSOCIATE) [facility] Method Time Signature CMV DNA PCR Target Not Target Not PA Detected Detected IAM IU/mL [facility] Comment: Normal Range: Target Not Detected. Reportable Range: 34.5 to 4,000,000 CM V DNA IU/mL; values between 4,000,000 to 10,000,000 CMV DNA IU/mL may be reported but these should be interpreted with caution as this range of the assay has not been internally verified. The clinical s ignificance of CMV levels at 4,000,000 IU/ml verses those above 4,000,000 is unclear. Results are expressed in CMV DNA IU/ml p lasma. Methodology: The extraction and quanti tation of cytomegalovirus (CMV) DNA in human plasma is performed using the MARCUS Stunable0 System. Amplification of viral DNA is achieved using polymerase chain reacti on (PCR). Internal controls are included to assess for possible amplification inhibitors. I f inhibition is detected, the specimen is tested again and if inhibition is confirmed the specimen is resulted as "Invalid". When an "Invalid" results occurs, it is recommended to wait a minimum of 7-10 days before submitting a new specimen for testing. This is an FDA-approved assay and its pe rformance characteristics were verified by the microbiology laboratory at the [facility]. Results must be interpreted within th e context of all relevant clinical and l aboratory findings. Specimen Anatomical Collection Method Collection Time Receive d Time (Source) Location / / Volume Laterality Blood 08/07/2022 9:30 AM 3 4:20 YARD ASSOCIATE PM YARD ASSOCIATE Narrative [facility] - 3 4:58 PM YARD ASSOCIATE Avon Sofy [facility] LAB BLOOD ORDERABLES Performing Organization Address City/[facility] Phon e Number [facility] Unless otherwise noted, [address] all lab tests performed by: Division of Pathology and Laboratory Medicine [address] [place] Hepatitis C Virus Ab (08/07/2022 9:30 AM YARD ASSOCIATE)Only the most recent of2 results within the time period is included. [facility] HCVAb. Non Reactive Non Reactive [facility] Comment: Antibody detection in the immunocompromi sed and immunosuppressed population may be delayed or absent entirely. Therefore serial testing, correlation with other clinical findings, and supplemental testin g (if available) should be taken into co nsideration when interpreting the results. Specimen Anatomical Collection Method Collection Time Receive d Time (Source) Location / / Volume Laterality Blood 08/07/2022 9:30 08/08/2022 7:56 AM YARD ASSOCIATE AM YARD ASSOCIATE Narrative [facility] - 9:42 AM YARD ASSOCIATE Avon Sofy [facility] LAB BLOOD ORDERABLES Performing Organization Address [facility] Phon e Number [facility] Unless otherwise noted, [address] all lab tests performed by: Division of Pathology and Laboratory Medicine [address] [place] [address] [place] Hepatitis B Total Ig Core Ab (SCREENING) (anti-HBc total Ig; HBcAb total Ig) (08/07/2022 9:30 AM YARD ASSOCIATE)Only the most recent of2 resultswithin the time period is included. [facility] HBcAb. Non Reactive Non Reactive [facility] Specimen Anatomical Collection Method Collection Time Receive d Time (Source) Location / / Volume Laterality Blood 08/07/2022 9:30 AM 7:56 YARD ASSOCIATE AM YARD ASSOCIATE Sofy [facility] LAB BLOOD ORDERABLES Performing Organization Address [facility] Phon e Number [facility] Unless otherwise noted, [address] all lab tests performed by: Division of Pathology and Laboratory Medicine [address] [place] [address] CMV Ab IgG+IgM Path Review (08/07/2022 9:30 AM YARD ASSOCIATE) Component Value Ref Test Analysis Performed At [facility] CMV Panel [place] Positive IgG with low IgM chester ggests previous infection. IVIG can give false positivity. [facility] High titers of IgG can give false negative IgM. Theref ore, active disease is IAM possible but less likely with this pattern. CANCER Reviewed and Electronically signed by Pathologist: [place] RICKEY SANTANA MD #[id number] Comment: Test performed by an immunoassay intende d for the qualitative detection of IgG and IgM antibodies to Cytomegalovirus (CMV) in human serum. When equivocal results are obtained, ano ther specimen should be collected 10-14 days later. RICKEY SANTANA MD - [id number] Dictated by: RICKEY SANTANA MD - [id number] Dictated Date/Time: 08.09.2022 13:45 PM YARD ASSOCIATE Transcribed Date/Time: 08.09.2022 13:45 PM YARD ASSOCIATE Electronically Signed By: RICKEY OWENS MD - [id number] on 08.09.2022 13:45 PM Specimen Anatomical Collection Method Collection Time Receive d Time (Source) Location / / Volume Laterality Blood 08/07/2022 9:30 AM 4:27 YARD ASSOCIATE PM YARD ASSOCIATE Sofy [facility] MICROBIOLOGY - GENERAL ORDER FLOR Performing Organization Address City/State/ZIP Code Phon e Number [facility] Unless otherwise noted, [place] [address] [place] all lab tests performed by: Division of Pathology and Laboratory Medicine [address] [place] [address] HSV 1+2 Quant, Plasma (08/07/2022 9:30 AM YARD ASSOCIATE) [facility] Method Time Signature HSV1 Not Detected Not Detected [facility] Plasma-Viraco copies/mL [facility] HSV2 Not Detected Not Detected [facility] Plasma-Viraco copies/mL [facility] Comment: Assay Range for HSV 1 is 37 copies/mL to 1.00E+08 copies/mL Assay Range for HSV 2 is 73 copies/mL to 1.00E+08 copies/mL The limit of quantitation (LOQ) is 37 (H SV 1) and 73 (HSV 2) copies/mL. HSV DNA detected below the LO Q will be reported as Detected:<37 copies/mL (HSV 1) or Detect ed:<73 copies/mL (HSV 2). This test was developed and its performa nce characteristics determined by [facility]. It has n ot been cleared or approved by the U.S. Food and Drug Administration . Results should be used in conjunction with clinical findings, and should not form the sole basis for a diagnosis or treatment decis ion. Performed At: [facility] [address] [place] [address] [employer] Operator: Haider Leon Ph.D., B CLD (ABB) CLIA#: [id number] Phone: Specimen Anatomical Collection Method Collection Time Receive d Time (Source) Location / / Volume Laterality Blood 08/07/2022 9:30 AM 3 YARD ASSOCIATE 11:31 AM YARD ASSOCIATE Narrative [facility] - 3 10:25 AM YARD ASSOCIATE Avon Sofy [facility] MICROBIOLOGY - GENERAL ORDER FLOR Performing Organization Address City/State/ZIP Code Phon e Number [facility] Unless otherwise noted, [place], [place] [id number] [place] [address] all lab tests performed by: Division of Pathology and Laboratory Medicine [facility] Joel Sandoval Virus Panel Path Review (08/07/2022 9:30 AM YARD ASSOCIATE) Component Value Ref Test Analysis Performed At [facility] gist Range Method Time Signature EBV Panel [place] EBV serology most compatible with past infection. Interpret with caution if the [facility] patient is receiving IVIG. AND BREA Reviewed and Electronically signed by Pathologist: CANCER RICKEY SANTANA MD #[id number] [facility] Comment: Test performed by immunoassay intended f or the qualitative detection of IgG and IgM antibodies to the viral capsid antigen (VCA) of the Joel-Sandoval virus (EBV) and IgG antibodies to the EBV nuclear antigen (EBNA). When equivocal results are obtained, ano ther specimen should be collected 10-14 days later. RICKEY SANTANA MD - [id number] Dictated by: RICKEY SANTANA MD - [id number] Dictated Date/Time: 08.09.2022 13:45 PM YARD ASSOCIATE Transcribed Date/Time: 08.09.2022 13:45 PM YARD ASSOCIATE Electronically Signed By: RICKEY OWENS MD - [id number] on 08.09.2022 13:45 PM Specimen Anatomical Collection Method Collection Time Receive d Time (Source) Location / / Volume Laterality Blood 08/07/2022 9:30 AM 3 4:27 YARD ASSOCIATE PM YARD ASSOCIATE Sofy [facility] MICROBIOLOGY - GENERAL ORDER FLOR Performing Organization Address City/State/ZIP [facility] Phon e Number [facility] Unless otherwise noted, [address] all lab tests performed by: Division of Pathology and Laboratory Medicine Nicole Bautista (ABNORMAL) CMV Ab IgG+IgM (08/07/2022 9:30 AM YARD ASSOCIATE) Patholo gist Method Time Signature CMV IgM Int Negative Negative [facility] CMV IgG Int Positive (A) Negative [facility] Specimen Anatomical Collection Method Collection Time Receive d Time (Source) Location / / Volume Laterality Blood 08/07/2022 9:30 AM 3 4:27 YARD ASSOCIATE PM YARD ASSOCIATE Narrative [facility] - 3 12:39 PM YARD ASSOCIATE Avon Sofy [facility] MICROBIOLOGY - GENERAL ORDER FLOR Performing Organization Address City/[facility] Phon e Number [facility] Unless otherwise noted, [address] all lab tests performed by: Division of Pathology and Laboratory Medicine [facility] Eveline Bautista Tissue Transglutaminase Ab IgA, IgG (08/07/2022 9:30 AM YARD ASSOCIATE) P athologist Signature TTG IgA-Cano <1.2 <4.0 [facility] (Negative) [facility] unit/mL TTG IgG-Cano <1.2 <6.0 [facility] (Negative) [facility] unit/mL Comment: Test Performed by: [facility] [address] [place] [id number] Locomotive Mechanic: Kushal Cannon M.D. Ph. D.; CLIA# [id number] Specimen Anatomical Collection Method Collection Time Receive d Time (Source) Location / / Volume Laterality Blood 08/07/2022 9:30 AM 3 9:33 YARD ASSOCIATE AM YARD ASSOCIATE Narrative [facility] - 3 6:30 PM YARD ASSOCIATE Avon Sofyfarhana [facility] LAB BLOOD ORDERABLES Performing Organization Address City/[facility]/ZIP Code Phon e Number [facility] Unless otherwise noted, [address] all lab tests performed by: Division of Pathology and Laboratory Medicine [address] [place] [address] Lily Liver/Kidney Microsome Type 1 Ab (08/07/2022 9:30 AM YARD ASSOCIATE) athologist [facility] [place] Juanita/Kid Micro <5.0 <=20.0 [facility] 1-[place] (Negative) CANCER CENTER Units Comment: Test Performed by: [facility] [address] [place] [address] Locomotive Mechanic: Kushal Cannon M.D. Ph. D.; CLIA# [id number] Specimen Anatomical Collection Method Collection Time Receive d Time (Source) Location / / Volume Laterality Blood 08/07/2022 9:30 AM 3 9:33 YARD ASSOCIATE AM YARD ASSOCIATE Narrative [facility] - 3 7:00 PM YARD ASSOCIATE Avon Sofy INMAN LAB BLOOD ORDERABLES Performing Organization Address City/[facility] Phon e Number [facility] CANCER Unless otherwise noted, [address] all lab tests performed by: Division of Pathology and Laboratory Medicine [address] [place] [address] Lily Hepatitis E IgM Ab (08/07/2022 9:30 AM YARD ASSOCIATE) athologist [facility] [place] HEV IgM Ab Negative Negative [facility] Comment: If clinical suspicion persists, submit n ew specimen for retesting in 1 to 2 weeks. ADDITIONAL INFORMATIO N This test was developed and its performa nce characteristics determined by [facility] in a manner co nsistent with CLIA requirements. This test has not been lani ared or approved by the U.S. Food and Drug Administration. Test Performed by: [facility] [place] [address] Locomotive Mechanic: Kushal Cannon M.D. Ph. D.; CLIA# [id number] Specimen Anatomical Collection Method Collection Time Receive d Time (Source) Location / / Volume Laterality Blood 08/07/2022 9:30 AM 3 9:33 YARD ASSOCIATE AM YARD ASSOCIATE Narrative [facility] - 3 1:42 PM YARD ASSOCIATE Avon Sofy INMAN LAB BLOOD ORDERABLES Performing Organization Address City/[facility] Phon e Number [facility] Unless otherwise noted, [address] all lab tests performed by: Division of Pathology and Laboratory Medicine Nicole Bautista Hepatitis E IgG Ab (08/07/2022 9:30 AM YARD ASSOCIATE) athologist Signature HEV IgG Negative Negative [facility] Comment: ADDITIONAL INFORMATIO N This test was developed and its performa nce characteristics determined by [facility] in a manner co nsistent with CLIA requirements. This test has not been lani ared or approved by the U.S. Food and Drug Administration. Test Performed by: [facility] [place] [address] Locomotive Mechanic: Kushal Cannon M.D. Ph. D.; CLIA# [id number] Specimen Anatomical Collection Method Collection Time Receive d Time (Source) Location / / Volume Laterality Blood 08/07/2022 9:30 AM 3 9:33 YARD ASSOCIATE AM YARD ASSOCIATE Narrative [facility] - 3 3:51 PM YARD ASSOCIATE Avon oSfy INMAN LAB BLOOD ORDERABLES Performing Organization Address City/[facility] Phon e Number [facility] Unless otherwise noted, [address] all lab tests performed by: Division of Pathology and Laboratory Medicine Nicole Bautista (ABNORMAL) EBV Antibody Panel (08/07/2022 9:30 AM YARD ASSOCIATE) [facility] VCA-M Int Negative Negative [facility] VCA-G Int Positive (A) Negative [facility] EBNA Int Positive (A) Negative [facility] Specimen Anatomical Collection Method Collection Time Receive d Time (Source) Location / / Volume Laterality Blood 08/07/2022 9:30 AM 3 4:27 YARD ASSOCIATE PM YARD ASSOCIATE Narrative [facility] - 3 12:37 PM YARD ASSOCIATE Avon Sofy INMAN LAB BLOOD ORDERABLES Performing Organization Address City/[facility]/ZIP [facility] Phon e Number [facility] CANCER Unless otherwise noted, [address] all lab tests performed by: Division of Pathology and Laboratory Medicine [facility] Eveline [place] Alpha 1 Antritrypsin (08/07/2022 9:30 AM YARD ASSOCIATE) [facility] 179 100 - 190 [facility] mg/dL CANCER CENTER Comment: Test Performed by: [facility] [employer] [address] [place] [address] Locomotive Mechanic: Kushal Cannon M.D. Ph. D.; CLIA# [id number] Specimen Anatomical Collection Method Collection Time Receive d Time (Source) Location / / Volume Laterality Blood 08/07/2022 9:30 AM 3 9:33 YARD ASSOCIATE AM YARD ASSOCIATE Narrative [facility] - 3 9:58 AM YARD ASSOCIATE Avon Sofy INMAN LAB BLOOD ORDERABLES Performing Organization Address City/[facility]/ZIP [facility] Phon e Number [facility] CANCER Unless otherwise noted, [address] all lab tests performed by: Division of Pathology and Laboratory Medicine [facility] [place] Hep A IgM Ab (08/07/2022 9:30 AM YARD ASSOCIATE) [facility] Hep A IgM-[place] Negative Negative [facility] Comment: Result does not exclude the possibility of exposure to hepatitis A virus. Antibody level duri ng early infection stage may be below the limit of detectio n of the assay. Test Performed by: [facility] [place] [address] Locomotive Mechanic: Kushal Cannon M.D. Ph. D.; CLIA# [id number] Specimen Anatomical Collection Method Collection Time Receive d Time (Source) Location / / Volume Laterality Blood 08/07/2022 9:30 AM 3 9:33 YARD ASSOCIATE AM YARD ASSOCIATE Narrative [facility] - 3 11:08 AM YARD ASSOCIATE Avon Sofy INMAN LAB BLOOD ORDERABLES Performing Organization Address [facility] Phon e Number [facility] CANCER Unless otherwise noted, [address] all lab tests performed by: Division of Pathology and Laboratory Medicine [address] [place] Mitochondrial Ab M2 (08/07/2022 9:30 AM YARD ASSOCIATE) athologist [facility] AMA Ab <0.1 <0.1 [facility] Screen-[place] (Negative) CANCER CENTER Units Comment: Test Performed by: [facility] [place] [address] Locomotive Mechanic: Kushal Cannon M.D. Ph. D.; CLIA# [id number] Specimen Anatomical Collection Method Collection Time Receive d Time (Source) Location / / Volume Laterality Blood 08/07/2022 9:30 AM 3 9:33 YARD ASSOCIATE AM YARD ASSOCIATE Narrative [facility] - 3 4:34 PM YARD ASSOCIATE Avon Sofy INMAN LAB BLOOD ORDERABLES Performing Organization Address [facility] Phon e Number [facility] CANCER Unless otherwise noted, [address] all lab tests performed by: Division of Pathology and Laboratory Medicine [address] [place] Ceruloplasmin Level (08/07/2022 9:30 AM YARD ASSOCIATE) athologist [facility] Ceruloplasmin-M 30.9 20.0 - [facility] guy 51.0 mg/dL CANCER CENTER Comment: Test Performed by: [facility] [address] [place] [address] Locomotive Mechanic: Kushal Cannon M.D. Ph. D.; CLIA# [id number] Specimen Anatomical Collection Method Collection Time Receive d Time (Source) Location / / Volume Laterality Blood 08/07/2022 9:30 AM 3 9:33 YARD ASSOCIATE AM YARD ASSOCIATE Narrative [facility] - 3 12:51 PM YARD ASSOCIATE Avon Sofy INMAN LAB BLOOD ORDERABLES Performing Organization Address City/[facility] Phon e Number [facility] CANCER Unless otherwise noted, [address] all lab tests performed by: Division of Pathology and Laboratory Medicine [facility] Evelinegraham Bautista Hepatitis B IgM Core Ab (CONFIRM ACUTE INFECTION ONLY) (anti-HBc IgM; HBcAb IgM) (08/07/2022 9:30 AMCST) athologist [facility] Hep B Core Negative Negative [facility] Comment: Test Performed by: [facility] [address] [place] [address] Locomotive Mechanic: Kushal Cannon M.D. Ph. D.; CLIA# [id number] Specimen Anatomical Collection Method Collection Time Receive d Time (Source) Location / / Volume Laterality Blood 08/07/2022 9:30 AM 3 9:33 YARD ASSOCIATE AM YARD ASSOCIATE Narrative [facility] - 3 9:55 AM YARD ASSOCIATE Avon Sofy INMAN LAB BLOOD ORDERABLES Performing Organization Address City/[facility] Phon e Number [facility] CANCER Unless otherwise noted, [address] all lab tests performed by: Division of Pathology and Laboratory Medicine [address] [place] [address] Lily Smooth Muscle Ab (08/07/2022 9:30 AM YARD ASSOCIATE) athologist Signature SMA Negative Negative PA [facility] Comment: Negative: No further testing will be per formed ADDITIONAL INFORMATIO N This test was developed and its performa nce characteristics determined by [facility] in a manner co nsistent with CLIA requirements. This test has not been lani ared or approved by the U.S. Food and Drug Administration. Test Performed by: [facility] [address] [facility] [place] [address] Locomotive Mechanic: Kushal Cannon M.D. Ph. D.; IA# [id number] Specimen Anatomical Collection Method Collection Time Receive d Time (Source) Location / / Volume Laterality Blood 08/07/2022 9:30 AM 3 9:33 YARD ASSOCIATE AM YARD ASSOCIATE Narrative [facility] - 3 2:35 PM YARD ASSOCIATE Avon Sofy Ambrose PA LAB BLOOD ORDERABLES Performing Organization Address City/[facility] Phon e Number [facility] Unless otherwise noted, [address] all lab tests performed by: Division of Pathology and Laboratory Medicine [address] [place] [address] Hepatitis B Surface Antibody (08/07/2022 9:30 AM YARD ASSOCIATE) [facility] Method Time Signature HBs Ab Non Reactive Non Reactive [facility] Specimen Anatomical Collection Method Collection Time Receive d Time (Source) Location / / Volume Laterality Blood 08/07/2022 9:30 AM 3 7:56 YARD ASSOCIATE AM YARD ASSOCIATE Narrative [facility] - 3 9:41 AM YARD ASSOCIATE Avon Sofy Ambrose PA LAB BLOOD ORDERABLES Performing Organization Address City/[facility] Phon e Number [facility] Unless otherwise noted, [address] all lab tests performed by: Division of Pathology and Laboratory Medicine [address] [place] [address] Hepatitis B Surface Ag (08/07/2022 9:30 AM YARD ASSOCIATE)Only the most recent of2 results within the time period is included. [facility] Method [place] Signature HBsAg. Non Reactive Non Reactive [facility] Specimen Anatomical Collection Method Collection Time Receive d Time (Source) Location / / Volume Laterality Blood 08/07/2022 9:30 AM 3 7:56 YARD ASSOCIATE AM YARD ASSOCIATE Narrative [facility] - 3 9:41 AM YARD ASSOCIATE Avon Sofy Ambrose PA LAB BLOOD ORDERABLES Performing Organization Address City/[facility]/ZIP [facility] Phon e Number [facility] Unless otherwise noted, [address] all lab tests performed by: Division of Pathology and Laboratory Medicine [address] Eveline Bautista (ABNORMAL) Prothrombin Time with INR (08/07/2022 9:30 AM YARD ASSOCIATE)Only the most recent of3 resultswithin the time period is included. athologist Signature PT 14.3 (H) 11.9 - 14.1 [facility] second(s) Comment: Testing performed at [facility], [address] [place] [address] INR 1.12 (H) 0.89 - 1.10 [facility] Comment: Testing performed at [facility], [address] [place] [address] Specimen Anatomical Collection Method Collection Time Receive d Time (Source) Location / / Volume Laterality Blood 08/07/2022 9:30 AM 9:33 YARD ASSOCIATE AM YARD ASSOCIATE Narrative [facility] - 08/07/2022 10:26 AM YARD ASSOCIATE Avon This lab cannot be scheduled at the [facility] due to collection/proccessing restrictions: [facility] and [facility]. Sofy INMAN LAB BLOOD ORDERABLES Performing Organization Address City/State/ZIP Code Phon e Number [place], [place] [id number] [place] [address] Transferrin with TIBC (08/07/2022 9:30 AM YARD ASSOCIATE)Only the most recent of2 results within the time period is included. athologist Signature Transferrin 254 200 - 360 [place] mg/dL Comment: Performed at [facility], [address] [place] [id number] TIBC 356 250 - 450 mcg/dL [facility] Comment: Performed at [facility], [address] [place] [address] Specimen Anatomical Collection Method Collection Time Receive d Time (Source) Location / / Volume Laterality Blood 08/07/2022 9:30 AM 3 9:32 YARD ASSOCIATE AM YARD ASSOCIATE Narrative [facility] - 08/07/2022 10:14 AM YARD ASSOCIATE No fasting required Avon No fasting required Sofy E Annabel PA LAB BLOOD ORDERABLES Performing Organization Address City/State/[place] [address] [address] [facility] Iron Level (08/07/2022 9:30 AM YARD ASSOCIATE)Only the most recent of2 resultswithin the time period is included. athologist Signature Iron 45 37 - 145 [place] mcg/dL Comment: Testing performed at [facility], [address] [facility], [place] [address] Specimen Anatomical Collection Method Collection Time Receive d Time (Source) Location / / Volume Laterality Blood 08/07/2022 9:30 AM 3 9:32 YARD ASSOCIATE AM YARD ASSOCIATE [facility] - 08/07/2022 10:14 AM YARD ASSOCIATE No fasting required Avon No fasting required Sofy E Annabel PA LAB BLOOD ORDERABLES Performing Organization Address City/[facility]/[place] [address] [place] [address] IgA (08/07/2022 9:30 AM YARD ASSOCIATE) athologist Signature IgA 146 85 - 499 [facility] mg/dL [facility] Specimen Anatomical Collection Method Collection Time Receive d Time (Source) Location / / Volume Laterality Blood 08/07/2022 9:30 AM 3 7:51 YARD ASSOCIATE AM YARD ASSOCIATE Narrative [facility] - 3 1:23 PM YARD ASSOCIATE [place]on Sofy E Annabel PA LAB BLOOD ORDERABLES Performing Organization Address City/State/ZIP Code Phon e Number [facility] CANCER Unless otherwise noted, [place] [address] [place] all lab tests performed by: Division of Pathology and Laboratory Medicine [address] Evel[place] Bautista IgM (08/07/2022 9:30 AM YARD ASSOCIATE) athologist Signature IgM 84 35 - 242 [facility] mg/dL [facility] Specimen Anatomical Collection Method Collection Time Receive d Time (Source) Location / / Volume Laterality Blood 08/07/2022 9:30 AM 3 7:51 YARD ASSOCIATE AM YARD ASSOCIATE Narrative [facility] - 3 1:24 PM YARD ASSOCIATE Avon Sofy INMAN LAB BLOOD ORDERABLES Performing Organization Address City/State/ZIP Code Phon e Number [facility] CANCER Unless otherwise noted, [address] all lab tests performed by: Division of Pathology and Laboratory Medicine [address] [place] IgG (08/07/2022 9:30 AM YARD ASSOCIATE) P athologist Signature IgG 719 610 - 1,616 [facility] mg/dL [facility] Specimen Anatomical Collection Method Collection Time Receive d Time (Source) Location / / Volume Laterality Blood 08/07/2022 9:30 AM 3 7:51 YARD ASSOCIATE AM YARD ASSOCIATE Narrative [facility] - 3 1:23 PM YARD ASSOCIATE [place] Sofy Ambrose PA LAB BLOOD ORDERABLES Performing Organization Address City/[facility] Phon e Number [facility] CANCER Unless otherwise noted, [address] all lab tests performed by: Division of Pathology and Laboratory Medicine [facility]5 [facility] Ferritin Level (08/07/2022 9:30 AM YARD ASSOCIATE)Only the most recent of2 resultswithin the time period is included. athologist Signature Ferritin Lvl 62 13 - 150 [facility] ng/mL Comment: Testing performed at [facility], [address] [place] [address] Specimen Anatomical Collection Method Collection Time Receive d Time (Source) Location / / Volume Laterality Blood 08/07/2022 9:30 AM 3 9:33 YARD ASSOCIATE AM YARD ASSOCIATE Narrative [facility] - 08/07/2022 10:32 AM YARD ASSOCIATE No fasting required [place]on No fasting required Sofy INMAN LAB BLOOD ORDERABLES Performing Organization Address City/[facility] Phon e [address] PETCT Subsequent Treatment Strategy (08/02/2022 3:42 PM YARD ASSOCIATE)Only the most recent of2 resultswithin the time period is included. Anatomical Region Laterality Modality Whole Body Positron Emission To mography (PET) Specimen (Source) Anatomical Collection Method Collection Time Re ceived Time Location / / Volume Laterality 08/02/2022 4:45 PM YARD ASSOCIATE Impressions 08/03/2022 3:29 PM YARD ASSOCIATE Low-grade FDG uptake within the left upp er lobe resection site and within the pleura within the left hemithorax are of uncert ain etiology and may be due to focal inflammation. Follow-up CT or PET/CT enrique ging could be useful in further evaluation to confirm the absence of malignancy in the se locations and to evaluate a new small right lung nodule. There are no wili or distant-extrathoracic systemic metastases. 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 Indication: To determine subsequent evette tment strategy. Restaging. Comparison: Chest CT 04/07/2022. Technique: Following intravenous admi nistration of 11.4 mCi F-18 fluorodeoxyglucose (FDG), a CT attenuation corrected PET scan was obtained from the vertex to the thighs. Findings: 1. There has been an interval left upper lobectomy. There is low-grade increased FDG uptake (SUV max 3.7) in the left upper lobe resection site. There is no visualized focal abnormal soft tissue within this region. There is a small focal justa on of increased FDG uptake in the soft tissues of the lower posterolateral aspect of the left hemithorax (image 144) most consistent with postoperative change. 2. There is a small region of pleural th ickening in the mid anterior aspect of the left hemithorax (image 101) that has low-grade FDG uptake (SUV max 2.2). 3. There are no enlarged or FDG avid lym ph nodes in the chest, abdomen or pelvis suspicious for wili metastases. 4. There is a new small (less than 5 mm) nodular opacity in the right upper lobe (image 91) of uncertain etiology. There are also small discrete nodules in the right upper lobe (image 87, 103) that are unchanged in size and most likely benign. 5. FDG uptake in the liver and spleen is physiologic. There are low-attenuation hepatic lesions consistent with cysts. 6. A 1.5 cm focal low-attenuation left a drenal nodule is unchanged in size and is not FDG avid and is consistent with a benign etiology. The right adrenal is normal. 7. There are no FDG avid osseous metasta ses. 8. The aorta is atherosclerotic and ther e is coronary artery calcification. Procedure Note Oren Soto MD - 08/03/2022Formatti ng of this note might be different from the original. 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 Indication: To determine subsequent evette tment strategy. Restaging. Comparison: Chest CT 04/07/2022. Technique: Following intravenous adminis tration of 11.4 mCi F-18 fluorodeoxyglucose (FDG), a CT attenuation corrected PET scan was obtained from the vertex to the thighs. Findings: 1. There has been an interval left upper lobectomy. There is low-grade increased FDG uptake (SUV max 3.7) in the left upper lobe resection site. There is no visualized focal abnormal soft tissue within this region. There is a small focal region of increas ed FDG uptake in the soft tissues of the lower posterolateral aspect of the left hemithorax (image 144) most consistent with postoperative change. 2. There is a small region of pleural th ickening in the mid anterior aspect of the left hemithorax (image 101) that has low-grade FDG uptake (SUV max 2.2). 3. There are no enlarged or FDG avid lym ph nodes in the chest, abdomen or pelvis suspicious for wili metastases. 4. There is a new small (less than 5 mm) nodular opacity in the right upper lobe (image 91) of uncertain etiology. There are also small discrete nodules in the right upper lobe (image 87, 103) that are unchanged in size and most likely benign. 5. FDG uptake in the liver and spleen is physiologic. There are low-attenuation hepatic lesions consistent with cysts. 6. A 1.5 cm focal low-attenuation left a drenal nodule is unchanged in size and is not FDG avid and is consistent with a benign etiology. The right adrenal is normal. 7. There are no FDG avid osseous metasta ses. 8. The aorta is atherosclerotic and ther e is coronary artery calcification. IMPRESSION: Low-grade FDG uptake within the left upp er lobe resection site and within the pleura within the left hemithorax are of uncertain etiology and may be due to focal inflammation. Follow-up CT or PET/CT imaging could be useful in further evaluation to confirm the abs ence of malignancy in these locations and to evaluate a new small right lung nodule. There are no wili or distant- extrathoracic systemic metastases. Sofy E Annabel PA IMG PETCT ORDERABLES OSI CT BRAIN (08/02/2022 2:47 PM YARD ASSOCIATE) Specimen (Source) Anatomical Location Collection Method / Collectio n Time Received Time / Laterality Volume Narrative Systemgenerated, Documentation - 023 8:10 AM CDT Study acquired at another institution. For comparison only. No [facility] originated interpretation requested or a vailable. Sofy E Annabel PA IMG OUTSIDE IMAGE ORDERABLES OSI CT ABDOMEN AND PELVIS (08/02/2022 2:47 PM YARD ASSOCIATE) Anatomical Region Laterality Modality Abdomen, Pelvis Other Specimen (Source) Anatomical Collection Method Collection Time Re ceived Time Location / / Volume Laterality 08/11/2022 5:09 PM YARD ASSOCIATE Impressions 08/11/2022 5:16 PM YARD ASSOCIATE 1. No acute findings or evidence of meta static disease. Narrative 08/11/2022 5:16 PM YARD ASSOCIATE FULL RESULT: Examination: OSI CT ABDOMEN AND PELVIS o n 08/02/2022 2:47 PM Clinical History: Adenocarcinoma, NOS of upper lobe, lung <Left> 76-year-old female with history of left lung adenocarcinoma status post lobectomy 05/25/2022 Indication: Further information needed f or cancer staging (please state in the comment field). Comparison: PET/CT 08/02/2022 Technique: Contrast enhanced imaging of the abdomen and pelvis was performed at an outside facility on 08/02/2022. 5 mm slice thickness images were uploaded into [facility] PACS for official review. Outside report not available. Findings: There is eventration of the left hemidia phragm, possibly related to volume loss from left upper lobectomy. Lung bases are clear. Heart size normal. There is some shift of the mediastinum to the left. Multiple well-defined, low-density lesio ns in the liver are in keeping with hepatic cysts. No biliary ductal dilatation. Normal gallbladder, spleen, adrenal glands, pancreas, and kidneys. Urinary bladder is decompressed. Normal uterus and adnexa. No dilated loops of bowel. Sigmoid diver ticulosis. No lymphadenopathy. Trace free fluid in the right posterior pelvis. No suspicious osseous lesion. 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 Comparison: PET/CT 08/02/2022 Technique: Contrast enhanced imaging of the abdomen and pelvis was performed at an outside facility on 08/02/2022. 5 mm slice thickness images were uploaded into [facility] PACS for official review. Outside report not available. Findings: There is eventration of the left hemidia phragm, possibly related to volume loss from left upper lobectomy. Lung bases are clear. Heart size normal. There is some shift of the mediastinum to the left. Multiple well-defined, low-density lesio ns in the liver are in keeping with hepatic cysts. No biliary ductal dilatation. Normal gallbladder, spleen, adrenal glands, pancreas, and kidneys. Urinary bladder is decompressed. Normal uterus and adnexa. No dilated loops of bowel. Sigmoid diver ticulosis. No lymphadenopathy. Trace free fluid in the right posterior pelvis. No suspicious osseous lesion. IMPRESSION: 1. No acute findings or evidence of meta static disease. Sofy INMAN IMTerry OUTSIDE IMAGE ORDERABLES Creatine Kinase (08/02/2022 11:24 AM YARD ASSOCIATE) athologist Signature CK 61 26 - 192 [facility] Specimen Anatomical Collection Method Collection Time Receive d Time (Source) Location / / Volume Laterality Blood 08/02/2022 11:24 08/02/2022 8:43 AM YARD ASSOCIATE PM YARD ASSOCIATE Narrative [facility] - 9:00 PM YARD ASSOCIATE [place] Sofy INMAN LAB BLOOD ORDERABLES Performing Organization Address City/State/ZIP Code Phon e Number [facility] Unless otherwise noted, [place] [address] CENTER all lab tests performed by: Division of Pathology and Laboratory Medicine [address] [facility] 2 Views (06/26/2022 8:58 AM YARD ASSOCIATE)Only the most recent of2 results within the time period is included. Anatomical Region Laterality Modality Chest Digital Radiography Specimen (Source) Anatomical Collection Method Collection Time Re ceived Time Location / / Volume Laterality 06/26/2022 9:02 AM YARD ASSOCIATE Impressions 06/26/2022 9:04 AM YARD ASSOCIATE No definite pneumothorax. Small left pleural effusion. Narrative 06/26/2022 9:04 AM YARD ASSOCIATE FULL RESULT: Examination: XR CHEST 2 VW, 06/26/2022 8:5 8 AM Clinical History: Adenocarcinoma, NOS of upper lobe, lung <Left> Indication: Evaluation of Pneumothorax Comparison: 05/26/2022 Technique: Posteroanterior, lateral and dual-energy radiographs of the chest. Findings: Left chest tube has been removed. Small left apical pneumothorax has resolved. Small left pleural effusion persists. Mild atelectasis/scarring in the left brittnee ng base. No new focal lung opacity. Heart and mediastinal contours are stable. Procedure Note Shyam Soni MD - 06/26/2022 FULL RESULT: Examination: XR CHEST 2 VW, 06/26/2022 8:5 8 AM Clinical History: Adenocarcinoma, NOS of upper lobe, lung <Left> Indication: Evaluation of Pneumothorax Comparison: 05/26/2022 Technique: Posteroanterior, lateral and dual-energy radiographs of the chest. Findings: Left chest tube has been removed. Small left apical pneumothorax has resolved. Small left pleural effusion persists. Mild atelectasis/scarring in the left brittnee ng base. No new focal lung opacity. Heart and mediastinal contours are stable. IMPRESSION: No definite pneumothorax. Small left ple ural effusion. Josephine Modi APRN IMTerry DIAGNOSTIC IMAGING ORDER FLOR OSI CHEST (06/16/2022 8:58 AM YARD ASSOCIATE) Anatomical Region Laterality Modality Chest Other Specimen (Source) Anatomical Collection Method Collection Time Re ceived Time Location / / Volume Laterality 07/17/2022 12:46 PM YARD ASSOCIATE Impressions 07/17/2022 12:46 PM YARD ASSOCIATE FINDINGS and IMPRESSION: 1. Left thoracostomy removed. Tiny lef t pneumothorax resolved. 2. Heart not enlarged. Moderate aortic atherosclerotic changes. 3. Post cervical changes left chest, m ild elevation left hemidiaphragm, and trace left effusion versus minimal left basilar pleural scarring. Narrative 07/17/2022 12:46 PM YARD ASSOCIATE FULL RESULT: Examination: OSI CHEST, 06/16/2022 8:58 AM Clinical History: Adenocarcinoma, NOS of upper lobe, lung <Left> Indication: Further information needed f or treatment decisions (please state in the comment field). Comparison: 05/26/2022 radiograph Technique: Posteroanterior and lateral r adiographs of the chest. Procedure Note Angel Villagomez MD - 07/17/2022 FULL RESULT: Examination: OSI CHEST, 06/16/2022 8:58 AM Clinical History: Adenocarcinoma, NOS of upper lobe, lung <Left> Indication: Further information needed f or treatment decisions (please state in the comment field). Comparison: 05/26/2022 radiograph Technique: Posteroanterior and lateral r adiographs of the chest. IMPRESSION: FINDINGS and IMPRESSION: 1. Left thoracostomy removed. Tiny left pneumothorax resolved. 2. Heart not enlarged. Moderate aortic a therosclerotic changes. 3. Post cervical changes left chest, mil d elevation left hemidiaphragm, and trace left effusion versus minimal left basilar pleural scarring. Sofy INMAN IMTerry OUTSIDE IMAGE ORDERABLES (ABNORMAL) Complete Blood Count w/o Differential (05/27/2022 4:03 AM YARD ASSOCIATE) P athologist Signature WBC 6.3 4.0 - 11.0 PA K/[facility] [place] RBC 2.89 (L) 4.00 - PA 5.50 M/uL [facility] Hgb 9.5 (L) 12.0 - PA 16.0 gm/dL [facility] Hct 28.9 (L) 37.0 - PA 47.0 % [facility] MCV 100 (H) 82 - 98 fL [facility] MCH 32.9 (H) 27.0 - PA MD 31.0 pg [facility] MCHC 32.9 31.0 - PA MD 36.0 gm/dL [facility] RDW-SD 67.2 (H) 35.1 - PA MD 46.3 [facility] RDW-CV 18.4 (H) 12.0 - PA MD 15.5 % [facility] Platelet count 232 140 - 440 PA K/uL [facility] MPV 9.2 4.0 - 10.4 PA [facility] INRBC 0.0 <=0.0 % [facility] Comment: The INRBC (instrument NRBC) value reflec [...] (Source) Location / / Volume Laterality Blood 05/27/2022 4:03 AM 2 4:24 YARD ASSOCIATE AM YARD ASSOCIATE Cady Helleramadou RONQUILLON LAB BLOOD ORDERABLES Performing Organization Address City/[facility]/ZIP Code Phon e Number [facility] Unless otherwise noted, [address] all lab tests performed by: Division of Pathology and Laboratory Medicine [address] [place] Magnesium Level (05/27/2022 4:03 AM YARD ASSOCIATE)Only the most recent of9 resultswithin the time period is included. P athologist Signature Magnesium 2.1 1.6 - 2.6 [facility] mg/dL [facility] Specimen Anatomical Collection Method Collection Time Receive d Time (Source) Location / / Volume Laterality Blood 05/27/2022 4:03 AM 2 4:56 YARD ASSOCIATE AM YARD ASSOCIATE Cady Heller WHEEL FILLER LAB BLOOD ORDERABLES Performing Organization Address City/State/ZIP Code Phon e Number [facility] Unless otherwise noted, [address] all lab tests performed by: Division of Pathology and Laboratory Medicine [address] [place] Glucose, Random (05/26/2022 5:50 AM YARD ASSOCIATE)Only the most recent of2 resultswithin the time period is included. athologist [facility] Glucose Random 116 70 - 199 [facility] mg/dL [facility] Comment: Effective 01/12/16, the glucose reference intervals have been updated based on [place] [employer] guidelines (Standards of Medical Care [...] (Source) Location / / Volume Laterality Blood 05/26/2022 5:50 AM 2 6:14 YARD ASSOCIATE AM YARD ASSOCIATE Jim Hernadez MD LAB BLOOD ORDERABLES Performing Organization Address City/[facility]/ZIP [facility] Phon e Number [facility] Unless otherwise noted, [address] all lab tests performed by: Division of Pathology and Laboratory Medicine [address] [place] Anion Gap (05/26/2022 5:50 AM YARD ASSOCIATE)Only the most recent of2 resultswithin the time period is included. [facility] Anion Gap 10 4 - 14 [facility] mEq/L [facility] Specimen Anatomical Collection Method Collection Time Receive d Time (Source) Location / / Volume Laterality Blood 05/26/2022 5:50 AM 2 6:14 YARD ASSOCIATE AM YARD ASSOCIATE Jim Hernadez MD LAB BLOOD ORDERABLES Performing Organization Address City/[facility] Phon e Number [facility] Unless otherwise noted, [address] all lab tests performed by: Division of Pathology and Laboratory Medicine [address] [place] Calcium Ionized, Venous (05/26/2022 5:50 AM YARD ASSOCIATE)Only the most recent of2 results within the time period is included. athologist Signature V Ion Ca 1.22 1.15 - 1.29 [facility] mmol/L [facility] Specimen Anatomical Collection Method Collection Time Receive d Time (Source) Location / / Volume Laterality Blood 05/26/2022 5:50 AM 2 5:57 YARD ASSOCIATE AM YARD ASSOCIATE Jim Hernadez MD LAB BLOOD ORDERABLES Performing Organization Address City/[facility]/ZIP [facility] Phon e Number [facility] Unless otherwise noted, [address] all lab tests performed by: Division of Pathology and Laboratory Medicine [address] [place] Sodium Level (05/26/2022 5:50 AM YARD ASSOCIATE)Only the most recent of2 resultswithin the time period is included. P athologist Signature Sodium Lvl 140 136 - 145 [facility] mEq/L [facility] Specimen Anatomical Collection Method Collection Time Receive d Time (Source) Location / / Volume Laterality Blood 05/26/2022 5:50 AM 2 6:14 YARD ASSOCIATE AM YARD ASSOCIATE Jim Hernadez MD LAB BLOOD ORDERABLES Performing Organization Address [facility] Phon e Number [facility] Unless otherwise noted, [address] all lab tests performed by: Division of Pathology and Laboratory Medicine [address] [place] Potassium Level (05/26/2022 5:50 AM YARD ASSOCIATE)Only the most recent of2 resultswithin the time period is included. P athologist Signature Potassium Lvl 4.3 3.5 - 5.1 [facility] mEq/L [facility] Specimen Anatomical Collection Method Collection Time Receive d Time (Source) Location / / Volume Laterality Blood 05/26/2022 5:50 AM 2 6:14 YARD ASSOCIATE AM YARD ASSOCIATE Jim Hernadez MD LAB BLOOD ORDERABLES Performing Organization Address City/[facility] Phon e Number [facility] Unless otherwise noted, [address] all lab tests performed by: Division of Pathology and Laboratory Medicine [address] [place] Phosphorus Level (05/26/2022 5:50 AM YARD ASSOCIATE)Only the most recent of7 resultswithin the time period is included. P athologist Signature Phosphorus 3.4 2.5 - 4.5 [facility] mg/dL [facility] Specimen Anatomical Collection Method Collection Time Receive d Time (Source) Location / / Volume Laterality Blood 05/26/2022 5:50 AM 2 6:14 YARD ASSOCIATE AM YARD ASSOCIATE Jim Hernadez MD LAB BLOOD ORDERABLES Performing Organization Address City/[facility]/ZIP [facility] Phon e Number [facility] Unless otherwise noted, [address] all lab tests performed by: Division of Pathology and Laboratory Medicine [address] [place] Chloride Level (05/26/2022 5:50 AM YARD ASSOCIATE)Only the most recent of2 resultswithin the time period is included. P athologist Signature Chloride 105 98 - 107 [facility] mEq/L [facility] Specimen Anatomical Collection Method Collection Time Receive d Time (Source) Location / / Volume Laterality Blood 05/26/2022 5:50 AM 2 6:14 YARD ASSOCIATE AM YARD ASSOCIATE Jim Hernadez MD LAB BLOOD ORDERABLES Performing Organization Address [facility] Phon e Number [facility] Unless otherwise noted, [address] all lab tests performed by: Division of Pathology and Laboratory Medicine [address] [place] Carbon Dioxide Level (05/26/2022 5:50 AM YARD ASSOCIATE)Only the most recent of2 results within the time period is included. P athologist Signature CO2 25 22 - 29 [facility] mEq/L [facility] Specimen Anatomical Collection Method Collection Time Receive d Time (Source) Location / / Volume Laterality Blood 05/26/2022 5:50 AM 2 6:14 YARD ASSOCIATE AM YARD ASSOCIATE Jim Hernadez MD LAB BLOOD ORDERABLES Performing Organization Address City/[facility] Phon e Number [facility] Unless otherwise noted, [address] all lab tests performed by: Division of Pathology and Laboratory Medicine [address] [place] X-ray Chest 1 View (05/25/2022 10:56 AM YARD ASSOCIATE) Anatomical Region Laterality Modality Chest Digital Radiography Specimen (Source) Anatomical Collection Method Collection Time Re ceived Time Location / / Volume Laterality 05/25/2022 11:17 AM YARD ASSOCIATE Impressions 05/25/2022 11:18 AM YARD ASSOCIATE Surgical changes in left lung. Opacities in left lower lung likely atelectasis in the postoperative setting. Small left pneumothorax. Opacities have increased in the right upper lobe may be due to aspiration or pneumonia. 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 Left up per lobectomy 05/25/2022. Comparison: 12/09/2021. Technique: Anteroposterior radiograph of the chest. Findings: Surgical changes in left lung. Opacities in left lower lung likely areas of atelectasis and postoperative setting. Left apical chest tube and there is a small left apical pneumothorax. Small left pleural effusion. Increased opacity in the right upper simón g may be due to atelectasis or aspiration. Clinical correlation follow-up recommended. The aorta is mildly tortuous. Procedure Note Glynn Turcios MD - 05/25/2022Formatt ing of this note might be different from the original. 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 Left up per lobectomy 05/25/2022. Comparison: 12/09/2021. Technique: Anteroposterior radiograph of the chest. Findings: Surgical changes in left lung. Opacities in left lower lung likely areas of atelectasis and postoperative setting. Left apical chest tube and there is a small left apical pneumothorax. Small left pleural effusion. Increased opacity in the right upper simón g may be due to atelectasis or aspiration. Clinical correlation follow-up recommended. The aorta is mildly tortuous. IMPRESSION: Surgical changes in left lung. Opacities in left lower lung likely atelectasis in the postoperative setting. Small left pneumothorax. Opacities have increased in the right upper lobe may be due to aspiration or pneumonia. Jim Hernadez MD IMG DIAGNOSTIC IMAGING ORDER FLOR Pathology Surgical Interpretation (05/25/2022 8:21 AM YARD ASSOCIATE) Component Value Ref Test Analysis Performed Pathologis t Range Method Time At Signature Submitted Adenocarcinoma, NOS 05/29/2022 [facility] Clinical of upper lobe, lung 2:55 PM History <Left> [C34.12] YARD ASSOCIATE Diagnosis A. Lymph node, subaortic, 5: 05/29/2022 [facility] Electronically Negative for tumor. 2:55 PM signed by Alfred Ochoa MD on B. Lymph node, left, hilar, 10I: 05/29/2022 at Negative for tumor. 2:55 PM C. Lymph node, left, interlobar, 11I Negative for tumor. D. Lymph node, para-aortic, 6: Negative for tumor. E. Lymph node, subcarinal, 7: Negative for tumor. F. Lung, left upper lobe, lobectomy: Extensive scarring (dense f ibrocollagenous scar) with focal giant cell reaction and inflammatory changes. 2.4 cm in greatest diameter. No residual viable tumor is identified. Bronchial and parenchymal margins are negative for tumor. Eight lymph nodes are negative for tumor (0/8) Synoptic LUNG 05/29/2022 [facility] Checklist LUNG: RESECTION - All Specimens 2:55 PM 8th Edition - Protocol posted: 04/27/2021 YARD ASSOCIATE SPECIMEN Procedure: Lobectomy Specimen Laterality: Left TUMOR Tumor Focality: Single focus Tumor Site: Upper lobe of lung Tumor Size: Total Tumor Size (size of entire tumor): Cannot be determined Histologic Type: Histologic Grade: Not applicable Spread Through Air Spaces ([place]): Not identified Visceral Pleura Invasion: Not identified Direct Invasion of Adjac ent Structures: Not applicable (no adjacent structures present) Treatment Effect: Present Percentage of Residual Viable Tumor: Cannot be d etermined: 0 Percentage of Necrosis: Cannot be determined: 0 Percentage of Stroma (includes fibrosis and inf lammation): 100 % Lymphovascular Invasion: Not identified MARGINS Margin Status for Invasi ve Carcinoma: All margins negative for invasive carcinoma Closest Margin(s) to Invasive Carcinoma: Cannot be determined Distance from Invasive Carcinoma to Closest Margin: Not applicable Margin Status for Non-Invasive Tumor: Not applicabl e REGIONAL LYMPH NODES Lymph Node(s) from Prior Procedures: No known prior lymph node sampling performed Regional Lymph Node Status: : All regional lymph nodes negative for tumor Number of Lymph Nodes Examined: 13 Wili Site(s) Examined: 7: Subcarinal Wili Site(s) Exam ined: 5: Subaortic / aortopulmonary (AP) / AP window Wili Site(s) Exam ined: 6: Para-aortic (ascending aorta or phrenic) Wili Site(s) Examined: 10L: Hilar Wili Site(s) Examined: 11L: Interlobar PATHOLOGIC STAGE CLASSIFICATION (pTNM, AJCC 8th Edition) The suffix m (or a speci fic number) should only be used in the setting of multifocal ground-glass / lepidic nodules that histologically present as adenocarcinomas with prominent lepidic component or multifocal tumors of same h istologic type that are too numerous for individual separate synoptic report and that are not better classified as intrapulmonary metastases (e.g. numerous carcinoid tumors). Multiple primary lung cance rs showing different histologic type or different morphology based on comprehensive histologic subtyping are better staged as independent tumors without m suffix. TNM Descriptors: y (post-treatment) pT Category: pT0 pN Category: pN0 Gross A: 05/29/2022 [facility] Description Lymph node(s), subaortic, 5, or #20: Consists of a red-brown lymph node (0.8 x 0.5 x 0.4 cm). The specimen is entirely submitted in cassette A1. ML 2:55 PM B: YARD ASSOCIATE Lymph node(s), left, hilar, 10l, or #20: Consists of a yellow-bhatt lymph node (0.5 cm). The specimen is entirely submitted in cassette B1. ML C: Lymph node(s), left, interlo bar, 11l, or #20: Consists of two red-brown lymph nodes (0.5 and 0.8 cm). The specimen is entirely submitted in cassette C1. ML D: Lymph node(s), para-aortic, 6, or 20: Consists of three red-brown lymph node (1.0 cm). The specimen is entirely submitted in cassette D1. ML E: Lymph node(s), subcarinal, 7 , or 20: Consists of two red-brown lymph nodes (0.5 and 0.7 cm). The specimen is entirely submitted in cassette E1. ML F: Lung, left upper lobe, left upper lobectomy................or 20: A 18.0 x 9.5 x 3.2 cm left upper lung lobe with a 5.5 cm florez metallic staple line present to indicate the parenchymal resection margin. The pleural surface is pink -red with a focal puckered area (1.0 cm in greatest dimension). The staple line along parenc hymal margin inked. The specimen is serially sectioned perpendicular to the margin to reveal a 2.4 x 1.3 x 1.2 cm pale-jorge, firm, ill defined nodule with a pale-yellow cut s urface without hemorrhage no necrosis, 2.5 cm from the nearest parenchymal resection margin, 3.4 cm from the bronchial and vascular margin and extending to the puckered pleura. The mass is not involved with the pleural surface. The uninvolved lung parenchy ma is grossly unremarkable. Multiple bhatt-black possible lymph nodes identified ranging from 0.2 to 0.6 cm in greatest dimension. INK CODE: Black-the parenchy ma resection margin along the staple line; blue- pleura; orange-hilar area after removal of the bronchial and vascular margin. SECTION CODE: F1, bronchial margin, en face; F2, vascular margin, en face; F3, nodule with adjacent pleura; F4-F8, entirely submitted of the remaining nodule with adjacent lung parenchyma; F9, lung pare nchyma adjacent to nodule, c lose to the margin after removal of the staple line; F10-F11, parts sales representative section of uninvolved parenchyma of the lung; F12- F13, each containing 4 possible lymph nodes; F14, 3 possible lymph nodes. JX Disclaimer "Some tests 05/29/2022 [facility] reported here may 2:55 PM have been developed YARD ASSOCIATE and performance characteristics determined by [facility] Pathology and Laboratory Medicine. These tests have not been specifically cleared or approved by the U.S. Food and Drug Administration. If applicable, controls were reviewed and showed appropriate reactivity." Specimen Anatomical Collection Method Collection Time Receive d Time (Source) Location / / Volume Laterality Tissue (Lymph 05/25/2022 8:21 AM 05/25/20 22 9:54 Node(s), YARD ASSOCIATE AM YARD ASSOCIATE Subaortic, 5) Tissue (Lymph 05/25/2022 8:21 AM 05/25/20 22 9:54 Node(s), Left, YARD ASSOCIATE AM YARD ASSOCIATE Hilar, 10L) Tissue (Lymph 05/25/2022 8:30 AM 05/25/20 22 9:54 Node(s), Left, YARD ASSOCIATE AM YARD ASSOCIATE Interlobar, 11L) Tissue (Lymph 05/25/2022 9:16 AM 05/25/20 22 9:54 Node(s), YARD ASSOCIATE AM YARD ASSOCIATE Para-Aortic, 6) Tissue (Lymph 05/25/2022 9:29 AM 05/25/20 22 9:54 Node(s), YARD ASSOCIATE AM YARD ASSOCIATE Subcarinal, 7) Tissue (Lung, 05/25/2022 9:35 AM 05/25/20 9:54 Left Upper Lobe) YARD ASSOCIATE AM YARD ASSOCIATE Jim Hernadez MD LAB PATHOLOGY ORDERABLES Performing Organization Address City/[facility]/ZIP Code Phon e Number [facility] [place] [id number] [facility] Clot Expiration Date (05/23/2022 9:58 AM YARD ASSOCIATE) [facility] Signature T & S 05/26/2022 [facility] Specimen Anatomical Collection Method Collection Time Receive d Time (Source) Location / / Volume Laterality Blood 05/23/2022 9:58 AM 2 2:44 YARD ASSOCIATE PM YARD ASSOCIATE Josephine Modi APRN BLOOD BANK TEST ORDERABLES Performing Organization Address [facility] Phon e Number [facility] Unless otherwise noted, [address] all lab tests performed by: Division of Pathology and Laboratory Medicine [address] [place] [address] TMP Interpretation Antibody Screen Negative (05/23/2022 9:58 AM YARD ASSOCIATE) [facility] TMP Auto Neg At the [facility] Center patient plasma shows no evidence of RBC alloantibodi es. Comment: JOSEPHINE EARL, Dictated by: JOSEPHINE EARL, Dictated Date/Time: 05.24.2022 9:[address] Transcribed Date/Time: 05.24.2022 9:47 AM YARD ASSOCIATE Electronically Signed By: devan LAM 05.24.2022 9:47 AM C Specimen Anatomical Collection Method Collection Time Receive d Time (Source) Location / / Volume Laterality Blood 05/23/2022 9:58 AM 2 2:44 YARD ASSOCIATE PM YARD ASSOCIATE Josephine Modi APRN BLOOD BANK TEST ORDERABLES Performing Organization Address City/[facility] Phon e Number [facility] Unless otherwise noted, [address] all lab tests performed by: Division of Pathology and Laboratory Medicine [address] [facility] TMP Interpretation Crossmatch (05/23/2022 9:58 AM YARD ASSOCIATE) [facility] Method Time Signature TMP XM Interp RBC units [place] crossmatched for [place] transfusion CANCER [facility] CENTER acceptable. Comment: JOSEPHINE EARL, Dictated by: JOSEPHINE EARL, Dictated Date/Time: 05.25.2022 11:44 AM YARD ASSOCIATE Transcribed Date/Time: 05.25.2022 11:44 AM YARD ASSOCIATE Electronically Signed By: JOSEPHINE EARL , on 05.25.2022 11:44 AM Specimen Anatomical Collection Method Collection Time Receive d Time (Source) Location / / Volume Laterality Blood 05/23/2022 9:58 AM 2 2:44 YARD ASSOCIATE PM YARD ASSOCIATE Josephine Modi APRN BLOOD BANK TEST ORDERABLES Performing Organization Address City/State/ZIP Code Phon e Number [facility] CANCER Unless otherwise noted, [address] all lab tests performed by: Division of Pathology and Laboratory Medicine [facility]5 [facility] (ABNORMAL) Partial Thromboplastin Time (05/23/2022 9:58 AM YARD ASSOCIATE)Only the most recent of2 resultswithin the time period is included. P athologist Signature aPTT 36.3 (H) 22.8 - 34.2 [place] second(s) Comment: Testing performed at [facility], [address] [place] [address], [place] [address] Specimen Anatomical Collection Method Collection Time Receive d Time (Source) Location / / Volume Laterality Blood 05/23/2022 9:58 AM 2 9:59 YARD ASSOCIATE AM YARD ASSOCIATE [facility] - 05/23/2022 10:39 AM YARD ASSOCIATE This lab cannot be scheduled at the foll [facility] locations due to collection/proccessing restrictions: [facility] and [facility]. Josephine Rian WHEEL FILLER LAB BLOOD ORDERABLES Performing Organization Address City/[facility]/[place] [address] [place] [address] ABORh (05/23/2022 9:58 AM YARD ASSOCIATE) athologist Signature ABORh. O POS [facility] Specimen Anatomical Collection Method Collection Time Receive d Time (Source) Location / / Volume Laterality Blood 05/23/2022 9:58 AM 2 2:44 YARD ASSOCIATE PM YARD ASSOCIATE Josephine Modi APRN BLOOD BANK TEST ORDERABLES Performing Organization Address City/State/ZIP Code Phon e Number [facility] CANCER Unless otherwise noted, [address] all lab tests performed by: Division of Pathology and Laboratory Medicine [address] [place] Antibody Screen (05/23/2022 9:58 AM YARD ASSOCIATE) [facility] ABSC. Negative ABSC [facility] Specimen Anatomical Collection Method Collection Time Receive d Time (Source) Location / / Volume Laterality Blood 05/23/2022 9:58 AM 2 2:44 YARD ASSOCIATE PM YARD ASSOCIATE Josephine Modi APRN BLOOD BANK TEST ORDERABLES Performing Organization Address City/[facility]/ZIP Code Phon e Number [facility] CANCER Unless otherwise noted, [address] all lab tests performed by: Division of Pathology and Laboratory Medicine [address] [place] Hemoglobin A1c (05/23/2022 9:58 AM YARD ASSOCIATE) [facility] A1C 5.5 4.3 - 5.6 % [place] Comment: HbA1c values >=6.5% are diagnostic of di abetes mellitus. Diagnosis should be confirmed by repeat testing. Therapeutic Action suggested: >8.0% HbA1 c; Goal of therapy: <7.0% HbA1c Testing performed at [facility], [address] [place] [address], [place] [address] Specimen Anatomical Collection Method Collection Time Receive d Time (Source) Location / / Volume Laterality Blood 05/23/2022 9:58 AM 2 9:59 YARD ASSOCIATE AM YARD ASSOCIATE Josephine Modi WHEEL FILLER LAB BLOOD ORDERABLES Performing Organization Address City/State/ZIP Code Phon e Number [facility] [place] [address] [address] [facility] Confirm ABORh (05/23/2022 9:56 AM YARD ASSOCIATE) P athologist Signature ABOR Confirm. O POS [facility] Specimen Anatomical Collection Method Collection Time Receive d Time (Source) Location / / Volume Laterality Blood 05/23/2022 9:56 AM 2:43 YARD ASSOCIATE PM YARD ASSOCIATE Josephine Modi WHEEL FILLER BLOOD BANK TEST ORDERABLES Performing Organization Address City/State/ZIP Code Phon e Number [facility] CANCER Unless otherwise noted, [place] [address] CENTER all lab tests performed by: Division of Pathology and Laboratory Medicine [facility]5 Eveline Bautista COVID-19 (SARS-CoV-2) PCR-Asymptomatic (05/23/2022 9:45 AM YARD ASSOCIATE)Only the most recent of2 resultswithin the time period is included. [facility] Method Time Signature COVID19 (SARS Not Detected Not Detected [facility] CoV-2) [facility] Comment: This test is a qualitative reverse-trans criptase polymerase chain reaction (RT- PCR) developed for the Tj MARCUS 6800 system and intended for qualitative detection of SARS CoV-2 RNA in nasopharyngeal a nd oropharyngeal swab specimens collecte d from any individuals, including those suspected o f COVID-19 by their healthcare provider, and those without symptoms or other reasons to suspect COVID-19. A fact sheet for patients provided by the serology technician ( [employer]) can be rev iewed at: https://www.fda.gov/media/615058/downloa d. A fact sheet for Health Care providers is provided by the serology technician ([employer]) and can be reviewed at: https://www.fda.gov/media/686289/download Results must be interpreted within the c [...] were verified by the Microbiology Laboratory at [facility], CLIA Accreditation #: [id number] and CAP Accreditation #: [id number]. COVID19 SARS Source BLOOD BANK ASSISTANT Swab PA MD [facility] COVID19 SARS Indication Pre-OR Procedure [facility] Specimen (Source) Anatomical Collection Method Collection Time Re ceived Time Location / / Volume Laterality Nasopharyngeal Swab 05/23/2022 9:45 05/23 AM YARD ASSOCIATE 12:32 PM YARD ASSOCIATE Jim Hernadez MD MICROBIOLOGY - GENERAL ORDER FLOR Performing Organization Address City/State/ZIP Code Phon e Number [facility] CANCER Unless otherwise noted, [place] [address] [place] all lab tests performed by: Division of Pathology and Laboratory Medicine [address] [place] [address] CT Chest without Contrast (04/07/2022 9:08 AM [...] metastasis. No wili or distant metastases. Yu Elmore WHEEL FILLER IMG CT ORDERABLES 6 minute walk test (03/20/2022 10:53 AM CDT) Specimen (Source) Anatomical Location Collection Method / Collectio n Time Received Time / Laterality Volume Narrative This result has an attachment that is no t available. Tammy Giraldo WHEEL FILLER PFT ORDERABLES Performing Organization Address City/State/ZIP Code Phon e Number [facility] MRI Brain with and without Contrast (02/04/2022 10:41 AM CDT) Anatomical Region Laterality Modality Head Magnetic Resonance [...] 84.028 % 2:30 PM CDT DLCO_SB 13.745 3.7 - 02/03/2022 [place] ml/(min*mmHg) 23.793 2:30 PM [...] Terrell MD PFT ORDERABLES Performing Organization Address City/[facility]/ZIP Code Phon e Number [place] (ABNORMAL) Urinalysis with Microscopic (02/03/2022 1:10 PM CDT) P athologist Signature UA WBC 8 (H) 0 - 2 /HPF [facility] UA RBC 1 0 - 2 /HPF [facility] UA Mucous NOT SEEN Not [facility] Seen-Trace [facility] UA Bacteria NOT SEEN NOT SEEN [facility] UA Squam Epi OCC None-Occas [facility] ional /[facility] Specimen Anatomical Collection Method Collection Time Receive d Time (Source) Location / / Volume Laterality Urine 02/03/2022 1:10 PM 2 2:02 CDT PM CDT Narrative [facility] - 2 2:16 PM CDT Some reporting parameters within the Urinalysis test have changed due to the implementation of new in strumentation in the [facility] [place], allowi ng greater sensitivity of measurement. Urinalysis results reported by the [facility] using existing instrumentation, as well as Urinalysis t esting performed manually or by backup methodology at the [facility] [place] will remain relatively unchanged. New reporting parameters and units will now be reported for all campuses. Sudeep Terrell MD URINE ORDERABLES Performing Organization Address City/State/ZIP Code Phon e Number [facility] CANCER Unless otherwise noted, [place] [address] [place] all lab tests performed by: Division of Pathology and Laboratory Medicine [facility] [place] (ABNORMAL) Urinalysis w/Microscopic if Indicated (02/03/2022 1:10 PM CDT) Patholo gist Method Time Signature UA Color Straw Straw-Yel [facility] UA Appear Hazy (A) Clear [facility] UA Glucose NEG NEG mg/dL [facility] UA Bili NEG NEG [facility] UA Ketones NEG NEG mg/dL [facility] UA Spec Grav 1.015 1.003 - PA MD 1.035 [facility] UA Blood NEG NEG [facility] UA pH 6.0 5.0 - 9.0 [facility] UA Protein NEG NEG mg/dL [facility] UA Urobilinogen NEG NEG [facility] UA Nitrite NEG NEG [facility] UA Leuk Est Moderate (A) NEG [facility] Specimen Anatomical Collection Method Collection Time Receive d Time (Source) Location / / Volume Laterality Urine 02/03/2022 1:10 PM 2 2:02 CDT PM CDT Sudeep Terrell MD URINE ORDERABLES Performing Organization Address City/State/ZIP Code Phon e Number [facility] CANCER Unless otherwise noted, [address] all lab tests performed by: Division of Pathology and Laboratory Medicine [facility] Lip[facility] Level (02/03/2022 1:10 PM CDT) P athologist Signature Lipase Lvl 56 13 - 60 U/L [facility] Specimen Anatomical Collection Method Collection Time Receive d Time (Source) Location / / Volume Laterality Blood 02/03/2022 1:10 PM 2 1:45 CDT PM CDT Sudeep Terrell MD LAB BLOOD ORDERABLES Performing Organization Address City/State/ZIP Code Phon e Number [facility] CANCER Unless otherwise noted, [address] all lab tests performed by: Division of Pathology and Laboratory Medicine [address] [place] LDH (02/03/2022 1:10 PM CDT) P athologist Signature LDH 190 135 - 214 [facility] U/L [facility] Comment: Results greater than 1651 U/L [...] Organization Address City/State/ZIP Code Phon e Number [facility] CANCER Unless otherwise noted, [address] all lab tests performed by: Division of Pathology and Laboratory Medicine [facility] Cortisol, Total (02/03/2022 1:10 PM CDT) athologist Signature Cortisol, Total 8.11 4.80 - [facility] 19.50 [facility] mcg/dL Comment: Cortisol reference intervals are [...] MD LAB BLOOD ORDERABLES Performing Organization Address City/[facility]/ZIP Code Phon e Number [facility] CANCER Unless otherwise noted, [address] all lab tests performed by: Division of Pathology and Laboratory Medicine [facility]5 [facility] (ABNORMAL) Amylase Level (02/03/2022 1:10 PM CDT) athologist Signature Amylase Lvl 102 (H) 28 - 100 [facility] U/L [facility] Specimen Anatomical Collection Method Collection Time Receive d Time (Source) Location / / Volume Laterality Blood 02/03/2022 1:10 PM 2 1:45 CDT PM CDT Sudeep Terrell MD LAB BLOOD ORDERABLES Performing Organization Address City/State/ZIP Code Phon e Number [facility] CANCER Unless otherwise noted, [address] all lab tests performed by: Division of Pathology and Laboratory Medicine [facility] EKG, 12-Lead (Scheduled) (02/03/2022) Specimen (Source) Anatomical Location Collection Method / [...] Code Phon e Number [place] [address] [address] [place] FISH ROS1 Material Request (01/22/2022 6:11 PM CDT) Specimen Anatomical Collection Method Collection Time Receive d Time (Source) Location / / Volume Laterality Tissue 01/22/2022 6:11 PM 2 6:11 CDT PM CDT Sudeep Terrell MD MDA IP AP BIOMARKERS Performing Organization Address City/[facility]/ZIP Code Phon e [place] [address] [address] [place] FISH ALK translocation Material Request (01/22/2022 6:11 PM CDT) Specimen Anatomical Collection Method Collection Time Receive d Time (Source) Location / / Volume Laterality Tissue 01/22/2022 6:11 PM 2 6:11 CDT PM CDT Sudeep Terrell MD MDA IP AP BIOMARKERS Performing Organization Address City/[facility]/ZIP Code Phon [place] [address] [address] [place] after 01/19/2022 Insurance Payer Benefit Plan Subscriber ID Effective Phone Address Typ e / Group Dates [employer]IG[employer] MANAGED CIGNA HMO POS [id number] 2021-Prese PO SAM X HMO CARE OPEN [place] nt [id number] DOMINIQUE Lobo [id number] MEDICARE MEDICARE PART [id number] 2008-Prese [phone] [place] Medicare A AND B nt 82 [employer] [address] [place] [address] Advance Directives Code Status Date Activated Date Inactivated Comments Full Code 05/25/2022 8:46 PM 05/29/2022 2:30 PM Care Teams Teletypesetter Relationship Specialty Start Date End Date Sheba Velez PCP - External Primary Nurse Practitioner 11/17/[address] [place] [address] Clay Ahumada MD PCP - External Follow Up Pulmonary Medicine 11/17/21 [address] [place] [address] Moncho Terrell, PCP - General Thoracic Medicine 12/27/21 MD Sudeep [address] [place], [place] [id number] [facility] 05/09/22 MD Vaibhav [address] [place] [id number]
--- OUTSIDE RECORDS SUMMARY | 2023-01-19 12:39 | XMS REPORT | Continuity of Care Document ---
:1945 Author Organization [facility] t Address [address] [facility] [address] [place] [id number] Care Team Providers Name Role Phone Sammie Bower MD Primary Care Physician [phone] SYSTEM, PROVIDER NOT IN Attending Clinician Unavailable LEODAN BARAKAT Attending Clinician Unavailable LAB90 Attending Clinician Unavailable Sally Gillis APRN Attending Clinician SALLY GILLIS Attending Clinician Unavailable TANA KAY Attending Clinician Unavailable Tnaa Kay MD Attending Clinician Bruna Albarran MA Attending Clinician Unavailable Nathanael Thompson DO Attending Clinician NATHANAEL THOMPSON Attending Clinician Unavailable NATHANAEL THOMPSON Attending Clinician Unavailable Jung White MD Attending Clinician JUNG WHITE Attending Clinician Unavailable HECTOR CARTER Attending Clinician Unavailable Joanna Lnadon MD Attending Clinician DAI CROUCH Attending Clinician Unavailable Dai Crouch MD Attending Clinician [phone] Josephine Jacobo APRN Attending Clinician ODALIS JOSEPHINE Attending Clinician Unavailable SOFY ALMENDAREZ Attending Clinician Unavailable Sofy Castillo Attending Clinician Cande COLLAZO, Lilian Attending Clinician Norman Mendez Attending Clinician Unavailable Cyndy Anglin RN Attending Clinician Unavailable Yung COLLAZO, Holly Attending Clinician Michael HO, Keaton Attending Clinician Asad HO, Pradeep Attending Clinician Warren Hernadez MD Attending Clinician ODIN OH Attending Clinician Unavailable Paula Montero APRN Attending Clinician WARREN HERNADEZ Attending Clinician Unavailable Caridad HO, Evelyn Attending Clinician [facility] Phyllis WILDER Attending Clinician Unavailable Bhavin FLEMING, Candy Attending Clinician Mark Kapoor Attending Clinician Ana Laura Quinn RN Attending Clinician Shara PharmD, Elvia Vaughn Attending Clinician Unavailable Yu Elmore APRN Attending Clinician Kris Barrios MD Attending Clinician [phone] Tammy Giraldo APRN Attending Clinician Matilda Condon RN Attending Clinician Unavailable Kaylie Mota MD Attending Clinician Hector PharmD, Meredith Attending Clinician Franky Lopez RN Attending Clinician Unavailable Finn Gifford RN Attending Clinician Unavailable Darrick PharmD, Tra Attending Clinician BRINA HOLLOWAY Attending Clinician Unavailable Ambreen Nance Attending Clinician Eva Min APRNfer A Attending Clinician Balaji COLLAZO, Indira Wiseman Attending Clinician Unavailable Muriel Arzola Attending Clinician Mariama Baez MA Attending Clinician Giorgi Soto Attending Clinician Elana Yoon Attending Clinician Unavailable Brenden LEMUS, Sana Liu Attending Clinician Nubia COLLAZO, Dany Newberry Attending Clinician Unavailable Brandyn SALAZAR, Susie Attending Clinician ISMAEL TONY Attending Clinician Unavailable Macario OH, Wade Metz Attending Clinician [phone] Familia HO, Holley Attending Clinician [phone] JOSE ABERNATHY Attending Clinician Unavailable Ca HO, Pedro Garcia Attending Clinician Goldie Magdaleno MD Attending Clinician Reed SALAZAR, Jennie Liu Attending Clinician Carine COLLAZO, Yu Allison Attending Clinician [phone] Jose Abernathy MD Attending Clinician RADIOLOGY, DEPT Attending Clinician Unavailable Shyanne Muñiz Attending Clinician Unavailable Jason De Jesus MD Attending Clinician Ella Verduzco Attending Clinician Sandy Chowdhury RN Attending Clinician Unavailable CLAY AHUMADA Attending Clinician Unavailable Olimpia Valencia Attending Clinician Anika Noonan NP Attending Clinician Tristen Hanson RN Attending Clinician Unavailable LAB39 Attending Clinician Unavailable Brina Holloway MD Attending Clinician FATUMA BAUMANN Attending Clinician Unavailable SMAMIE BOWER Attending Clinician Unavailable WARREN HERNADEZ Admitting Clinician Unavailable KAYLIE MOTA Admitting Clinician Unavailable Payers Payer Name Policy Type Policy Number Effective Date Expiration Date Macy GLASS 2 [id number] 2021 00:00:00 MEDICARE-PART B 5 [id number] 2021 00:00:00 Problems Condition Condition Condition Status Onset Resolution Last Treating Co mments Source Name Details Category Date Date Treatment Clinician Date Stage 3a Stage 3a Disease Active Kelse y chronic chronic 01-16 Seybold kidney kidney 00:00: - disease disease 00 Externa l Immunodefi Immunodefi Disease Active K elsey ciency due ciency due 01-16 Se ybold to to 00:00: - conditions conditions 00 Ex terna classified classified l elsewhere elsewhere Postoperat Postoperat Disease Active Last U nivers joann pain joann pain - Assessmen ity of 00:00: t & Plan: [place] 00 Sangeeta HO g of this Anderso note n might be Cancer different Center from the original. After assessmen t her symptoms are indicativ e of thoracic nerve pain. I have refilled her gabapenti n prescript ion and advised her to start with 3 times a day again and then wean off per the typical protocol we previousl y ordered. Sent to her local [facility] pharmacy. Constipati Constipati Disease Active 2021-06 Last U nivers on on 07-09 Assessmen ity of 00:00: t & Plan: [place] 00 Sangeeta HO g of this Anderso note n might be Cancer different Center from the original. She did suffer some severe constipat ion that she was hospitali zed for in the beginning of chemo immunothe rapy. She manages this on Senokot and sometimes MiraLAX. I did encourage her to stay ahead of this prior to surgery. After surgery I told her that if Senokot and MiraLAX not working she can try magnesium citrate. She should let it go 3 days without a bowel movement before calling us for assistanc e. Antineopla Antineopla Disease Active 2021-06 Last U nivers stic stic 07-09 Assessmen ity of chemothera chemothera 00:00: t & Plan: [place] py induced py induced Sangeeta HO anemia anemia g of this Anderso note n might be Cancer different Center from the original. Hemoglobi n hematocri t .07/18.3 regine mack. We will monitor this during her preop labs before surgery. After surgery if she needs a blood transfusi on we will of course treat her if needed. Abnormal Abnormal Disease Active 2021-06 Last Unive rs weight weight 1-22 Assessmen ity of loss loss 00:00: t & Plan: Sangeeta veras of this Anderso note n might be Cancer different Center from the original. She normally weighs about 115 pounds. She is weighing today at 102 pounds so she is lost a little over 10 pounds since the beginning of treatment which started end of the summer. She has difficult y with her appetite, food does not taste very well so she has not been able to gain some of that weight back. I have put in a referral for nutrition ist to give her a call to assist her. Primary Primary Disease Active 2021-06 More adenocarci adenocarci -16 Se ybold noma of noma of 00:00: - upper lobe upper lobe 00 Ex terna of left of left l lung lung Cerebral Cerebral Disease Active 2021-06 Kelse y venous venous 16 Seybold thrombosis thrombosis 00:00: - 00 Externa l Cerebral Cerebral Disease Active Last Unive rs thrombosis thrombosis 8-09 Assessmen ity of 00:00: t & Plan: [place] Sangeeta veras of this Anderso note n might be Cancer different Center from the original. She was found to have a cerebral thrombus and has been on Eliquis since December 2021. She is asymptoma tic from this. She will need to stop Eliquis 3 days before surgery. She has stopped Eliquis before without issue. Simple Simple Disease Active Univers chronic chronic [...] Bladimir as lobe, lung lobe, lung 00 Sangeeta HO <Left> <Left> g of this Anderso note n might be Cancer different Center from the original. Ms. 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 She did well for surgery and did have pathologi mariya complete response to therapy. She is struggled with her weight anxiety nausea and pain after surgery. She takes Zofran for nausea and she has been taking tramadol intermitt ently as she is run out of the gabapenti n. I have reordered gabapenti n for her and encourage d her to take tramadol anytime she feels breakthro ugh pain. Encourage d her to eat with medicatio ns and to eat something small several times a day. She is lost 5 pounds since her last weight done here. She is 97 pounds. She declined need to see our nutrition ist as she has resources from her from her previous visit. I mentioned to her we will see her in 3 to [address] chest and most likely TMO will follow along. long term pen[facility] Disease Active Jarrett jacobs (current) (current) 3-30 Seyb old use of use of 00:00: - inhaled inhaled 00 Externa steroids steroids l COPD COPD Disease Active More (chronic (chronic 3-30 Seybol d obstructiv obstructiv 00:00: - e e 00 Externa pulmonary pulmonary l disease) disease) with with chronic chronic bronchitis bronchitis Stroud or Stroud or Disease Active More callus callus 3-30 Seybold 00:00: - 00 Externa l HTN HTN Disease Active More (hypertens (hypertens 1-25 Se ybold ion) ion) 00:00: - 00 Externa l Primary Primary Disease Active More hypertensi hypertensi 1-25 Se ybold on on 00:00: - 00 Externa l Chronic Chronic Disease Active Univers obstructiv obstructiv 4-05 it y of e e 00:00: [place] pulmonary pulmonary 00 disease disease [facility] Coronary Coronary Disease Active Unive rs arterioscl arterioscl 05 it y of erosis erosis 00:00: 00 MD [facility] Gastroesop Gastroesop Disease Active U nivers hageal hageal 05 ity of reflux reflux 00:00: [place] disease disease MD Jose Angel wiseman [facility] Hypertensi Hypertensi Disease Active U nivers ve ve 405 ity of disorder disorder 00:00: 00 MD [facility] [place] Tobacco Tobacco Disease Active Univers user user 09-20 ity of 00:00: [place] MD Jose Angel wiseman [facility] Shortness Shortness Disease Active Uni vers of breath of breath 05 ity of 00:00: 00 MD Jose Angel wiseman [facility] Allergies, Adverse Reactions, Alerts Allergy Allergy Status Severity Reaction(s) Onset Inactive Treating Comm ents Source Name Type Date Date Clinician Clindamy Propensi Active Anaphylaxis Difficul t Univers grecia Hcl ty to 6-23 y ity of adverse 00:00: Breathing [place] reaction 00 Medical s Branch CLINDAMY DRUG Active Anaphylaxis Uni vers GRECIA HCL INGREDI 6-23 ity of 00:00: [place] 00 Medical Branch Clindamy Propensi Active Other More grecia ty to 4-04 reaction( Seybold adverse 00:00: s): - reaction 00 Itching/H Exter na s [place]/Rash l Clindamy Drug Active Other Univers grecia Allergy 4-04 reaction( ity of 00:00: s): [place] 00 Itching/H MD [place]/Rash Anderso Other n reaction( Cancer s): Center Itching/H [place]/Rash CLINDAMY DRUG Active 2017- MD GRECIA INGREDI 4-04 Anderso 00:00: n 00 CLINDAMY DRUG Active 2017- MD GRECIA INGREDI 4-04 Anderso 00:00: n 00 CLINDAMY DRUG Active 2017-0 MD GRECIA INGREDI 4-04 Anderso 00:00: n 00 CLINDAMY DRUG Active 2017- MD GRECIA INGREDI 4-04 Anderso 00:00: n [...] n 00 CLINDAMY DRUG Active 2018-0 MD GREICA INGREDI 4-04 Anderso 00:00: n 00 CLINDAMY [...] GRECIA INGREDI 4-04 Anderso 00:00: n 00 NO KNOWN Drug Active Univers ALLERGIE Class ity of [facility] Family History Family Member Diagnosis Comments Start Date Stop Date Source Natural brother Dementia Universit y [facility] r [place] Natural daughter Skin cancer [facility] ity [facility] [place] Natural father [facility] [place] Natural mother Brain cancer Universi ty [facility] C[facility] r [place] Natural son [facility] [place] Social History Social Habit Start Date Stop Date Quantity Comments Source Gender identity Universit y [facility] Exposure to 2022-09-02 2022-09-12 Not sure University of SARS-CoV-2 (event) 00:00:00 09:35:00 [facility] Alcohol intake 2022-08-07 2022-08-07 Ex-drinker University 00:00:00 00:00:00 (finding) [place] [facility] Cigarettes smoked 2022-05-25 2022-05-25 [facility] ity of current (pack per 00:00:00 00:00:00 Niecy Pollard ) - Reported Cancer Ce nter Cigarette 2022-05-25 2022-05-25 University of pack-years 00:00:00 00:00:00 [facility] Tobacco use and 2022-05-25 2022-05-25 Smokeless Universit y of exposure 00:00:00 00:00:00 tobacco non-user [facility] Tobacco Comment 2022-05-25 2022-05-25 6-8 cpd x 1 Universi ty of 00:00:00 00:00:00 month Niecy evans [facility] History of tobacco 1961-06-18 2022-01-12 Cigarette Smoker University of use 00:00:00 00:00:00 Niecy evans [facility] Education 2021-11-29 2021-11-29 10 University of 00:00:00 00:00:00 Niecy evans [facility] History of Social 2021-09-14 2021-09-14 More Seybold - function 00:00:00 00:00:00 External Sex [birth year] Universit y of 00:00:00 00:00:00 Niecy evans [facility] Smoking Status Start Date Stop Date Source Tobacco smoking [facility] [place] consumption unknown Medical Bran ch Ex-smoker 2022-05-25 00:00:00 2022-05-25 University o f Niecy HO 00:00:[address] [facility] Smokes tobacco daily 2021-09-14 00:00:00 More Seybold - External Medications Ordered Filled Start Stop Current Ordering Indication Dosage Frequency Signature Comments Components Source Medication Medication Date Date Medication? Clinician (SIG) Name Name Sennosides Yes 1{tbl} Take 1 Jarrett sey 8.6 MG oral 8- tablet by Sey bold Tablet 14:41: mouth - 55 Externa l Fluconazole 2022- No [id number] 150mg Take 1 More 150 MG oral 8- 08-02 tablet Seybo ld Tablet 00:00: 04:59 (150 mg - 00 :00 total) by Externa mouth once l for 1 dose Pantoprazol Yes [id number] TAKE 1 More e Sodium 40 7-14 TABLET BY Sey bold MG oral 00:00: MOUTH - Tablet 00 DAILY Externa Delayed l Response gabapentin Yes 300mg Take 1 Univ ers 300 mg 6-23 capsule by ity of capsule 10:53: mouth in [place] [address] the Medical morning. Branch apixaban 2023-0 Yes 2.5mg Take 1 Univer s 2.5 mg 6-23 tablet by ity of tablet 10:53: mouth in [place] [address] the Medical morning Branch and 1 tablet in the evening. pantoprazol 2023-0 Yes 40mg Take 1 Univ ers e 40 mg EC 6-23 tablet by ity of tablet 10:53: mouth in [place] [address] the Medical morning. Branch albuterol 2023-0 Yes 2.5mg Inhale 3 Uni vers 2.5 mg /3 6-23 mL as ity of mL (0.083 10:53: [place] 49 Wheezing Medical nebulizer or Branch solution Shortness of Breath. metoprolol 2023-0 Yes 50mg Take 1 Unive rs tartrate 50 6-23 tablet by ity of mg tablet 10:53: mouth in [place] [address] the Medical morning. Branch gabapentin 2023-0 Yes 300mg Take 1 Univ ers 300 mg 6-23 capsule by ity of capsule 10:53: mouth in [place] [address] the Medical morning. Branch apixaban 2023-0 Yes 2.5mg Take 1 Univer s 2.5 mg 6-23 tablet by ity of tablet 10:53: mouth in [place] [address] the Medical morning Branch and 1 tablet in the evening. pantoprazol 2023-0 Yes 40mg Take 1 Univ ers e 40 mg EC 6-23 tablet by ity of tablet 10:53: mouth in [place] [address] the Medical morning. Branch albuterol 2023-0 Yes 2.5mg Inhale 3 Uni vers 2.5 mg /3 6-23 mL as ity of mL (0.083 10:53: [place] 49 Wheezing Medical nebulizer or Branch solution Shortness of Breath. metoprolol 2023-0 Yes 50mg Take 1 Unive rs tartrate 50 6-23 tablet by ity of mg tablet 10:53: mouth in [place] [address] the Medical morning. Branch gabapentin 2023-0 Yes 300mg Take 1 Univ ers 300 mg 6-23 capsule by ity of capsule 10:53: mouth in [place] [address] the Medical morning. Branch apixaban 2023-0 Yes 2.5mg Take 1 Univer s 2.5 mg 6-23 tablet by ity of tablet 10:53: mouth in [place] [address] the Medical morning Branch and 1 tablet in the evening. pantoprazol 2023-0 Yes 40mg Take 1 Univ ers e 40 mg EC 6-23 tablet by ity of tablet 10:53: mouth in [place] [address] the Medical morning. Branch albuterol 2023-0 Yes 2.5mg Inhale 3 Uni vers 2.5 mg /3 6-23 mL as ity of mL (0.083 10:53: [place] 49 Wheezing Medical nebulizer or Branch solution Shortness of Breath. metoprolol 2023-0 Yes 50mg Take 1 Unive rs tartrate 50 6-23 tablet by ity of mg tablet 10:53: mouth in [place] [address] the Medical morning. Branch gabapentin 2023-0 Yes 300mg Take 1 Univ ers 300 mg 6-23 capsule by ity of capsule 10:53: mouth in [place] [address] the Medical morning. Branch apixaban 2023-0 Yes 2.5mg Take 1 Univer s 2.5 mg 6-23 tablet by ity of tablet 10:53: mouth in [place] [address] the Medical morning Branch and 1 tablet in the evening. pantoprazol 2023-0 Yes 40mg Take 1 Univ ers e 40 mg EC 6-23 tablet by ity of tablet 10:53: mouth in [place] [address] the Medical morning. Branch albuterol 2023-0 Yes 2.5mg Inhale 3 Uni vers 2.5 mg /3 6-23 mL as ity of mL (0.083 10:53: [place] 49 Wheezing Medical nebulizer or Branch solution Shortness of Breath. metoprolol 2023-0 Yes 50mg Take 1 Unive rs tartrate 50 6-23 tablet by ity of mg tablet 10:53: mouth in [place] [address] the Medical morning. Branch gabapentin 2023-0 Yes 300mg Take 1 Univ ers 300 mg 6-23 capsule by ity of capsule 10:53: mouth in [place] [address] the Medical morning. Branch apixaban 2023-0 Yes 2.5mg Take 1 Univer s 2.5 mg 6-23 tablet by ity of tablet 10:53: mouth in [place] [address] the Medical morning Branch and 1 tablet in the evening. pantoprazol 2023-0 Yes 40mg Take 1 Univ ers e 40 mg EC 6-23 tablet by ity of tablet 10:53: mouth in [place] [address] the Medical morning. Branch albuterol 2023-0 Yes 2.5mg Inhale 3 Uni vers 2.5 mg /3 6-23 mL as ity of mL (0.083 10:53: [place] 49 Wheezing Medical nebulizer or Branch solution Shortness of Breath. metoprolol 2023-0 Yes 50mg Take 1 Unive rs tartrate 50 6-23 tablet by ity of mg tablet 10:53: mouth in [place] [address] the Medical morning. Branch gabapentin 2023-0 Yes 300mg Take 1 Univ ers 300 mg 6-23 capsule by ity of capsule 10:53: mouth in [place] [address] the Medical morning. Branch apixaban 3-0 Yes 2.5mg Take 1 Univer s 2.5 mg 6-23 tablet by ity of tablet 10:53: mouth in [place] [address] the Medical morning Branch and 1 tablet in the evening. pantoprazol 2023-0 Yes 40mg Take 1 Univ ers e 40 mg EC 6-23 tablet by ity of tablet 10:53: mouth in [place] [address] the Medical morning. Branch albuterol 3-0 Yes 2.5mg Inhale 3 Uni vers 2.5 mg /3 6-23 mL as ity of mL (0.083 10:53: [place] 49 Wheezing Medical nebulizer or Branch solution Shortness of Breath. metoprolol 2023-0 Yes 50mg Take 1 Unive rs tartrate 50 6-23 tablet by ity of mg tablet 10:53: mouth in [place] [address] the Medical morning. Branch budesonide- 2023-0 Yes [id number] 2{puff} Inhale 2 Univers formoteroL 6-23 Puffs in ity o f (SYMBICORT) 00:00: the [place] 160-4.5 00 morning Medical mcg/actuati and 2 Branch on inhaler Puffs in the evening. budesonide- 2023-0 Yes [id number] 2{puff} Inhale 2 Univers formoteroL 6-23 Puffs in ity o f (SYMBICORT) 00:00: the [place] 160-4.5 00 morning Medical mcg/actuati and 2 Branch on inhaler Puffs in the evening. budesonide- 2022-0 Yes [id number] 2{puff} Inhale 2 Univers formoteroL 6-23 Puffs in ity o f (SYMBICORT) 00:00: the [place] 160-4.5 00 morning Medical mcg/actuati and 2 Branch on inhaler Puffs in the evening. budesonide- 2022-0 Yes [id number] 2{puff} Inhale 2 Univers formoteroL 6-23 Puffs in ity o f (SYMBICORT) 00:00: the [place] 160-4.5 00 morning Medical mcg/actuati and 2 Branch on inhaler Puffs in the evening. budesonide- 2022-0 Yes [id number] 2{puff} Inhale 2 Univers formoteroL 6-23 Puffs in ity o f (SYMBICORT) 00:00: the [place] 160-4.5 00 morning Medical mcg/actuati and 2 Branch on inhaler Puffs in the evening. budesonide- 2022-0 Yes [id number] 2{puff} Inhale 2 Univers formoteroL 6-23 Puffs in ity o f (SYMBICORT) 00:00: the [place] 160-4.5 00 morning Medical mcg/actuati and 2 Branch on inhaler Puffs in the evening. Pseudoeph-B Yes [id number] 10mL Q.25D Take 10 mL More romphen-DM 6-01 by mouth 4 Sey bold 30-2-10 00:00: times - MG/5ML oral 00 daily as Exte rna Syrup needed l Amoxicillin Yes [id number] 1{tbl} Take 1 More -Pot 6-01 tablet by Seybold Clavulanate 00:00: mouth 2 - 500-125 MG 00 times Externa oral Tablet daily l Gabapentin 0 Yes [id number] 300mg Take 1 More 300 MG oral 6-01 capsule Seybo ld Capsule 00:00: (300 mg - 00 total) by Externa mouth l nightly Apixaban 0 Yes [id number] 2.5mg Take 1 Ke l[place] (Eliquis) 6-01 tablet Seybold 2.5 MG oral 00:00: (2.5 mg - Tablet 00 total) by Externa mouth 2 l times daily Pseudoeph-B Yes [id number] 10mL Q.25D Take 10 mL More romphen-DM 6-01 by mouth 4 Sey bold 30-2-10 00:00: times - MG/5ML oral 00 daily as Exte rna Syrup needed l Amoxicillin Yes [id number] 1{tbl} Take 1 More -Pot 6-01 tablet by Seybold Clavulanate 00:00: mouth 2 - 500-125 MG 00 times Externa oral Tablet daily l Gabapentin Yes [id number] 300mg Take 1 More 300 MG oral 6- capsule Seybo ld Capsule 00:00: (300 mg - 00 total) by Externa mouth l nightly Apixaban Yes [id number] 2.5mg Take 1 Ke [place] (Eliquis) 6- tablet Seybold 2.5 MG oral 00:00: (2.5 mg - Tablet 00 total) by Externa mouth 2 l times daily gabapentin Yes Postoperati TAKE 1 Univers (NEURONTIN) 5-30 ve pain CAPSULE(30 ity of 300 mg 00:00: 0 MG) BY [place] capsule 00 MOUTH THREE Anderso TIMES n DAILY Cancer Center apixaban Yes Cerebral 2.5mg Take 1 Un devante (Eliquis) 5-24 venous tablet ity of 2.5 mg 00:00: sinus (2.5 mg) [place] tablet 00 thrombosis by mouth MD every 12 Anderso (twelve) n hours. Cancer Center senna Yes 1{tbl} Take 1 Univers (SENOKOT) 5-18 tablet by ity o f 8.6 mg 09:17: mouth [place] tablet 40 every MD other day. Anderso n Cancer Center albuterol Yes 2.5mg Inhale 3 Uni vers (PROVENTIL, 5-18 mL (2.5 ity o f VENTOLIN) 09:17: mg) by [place] 2.5 mg/3 mL 39 nebulizati (0.083%) on twice Anderso nebulizer daily. n solution Patient Cancer has been Center using 3-4 times a day Pantoprazol Yes [id number] TAKE 1 More e Sodium 40 5-18 TABLET BY Sey bold MG oral 00:00: MOUTH - Tablet 00 DAILY Externa Delayed l Response apixaban 2022- No Cerebral 2.5mg Take 1 U nivers (Eliquis) - 05-24 venous tablet ity o f 2.5 mg 00:00: 00:00 sinus (2.5 mg) [place] tablet 00 :00 thrombosis by mouth MD every 12 Anderso (twelve) n hours. Cancer Center Eliquis 2.5 2022- No Cerebral TAKE 1 Univers mg tablet 10-25-10 venous TABLET(2.5 i ty of 00:00: 00:00 sinus MG) BY [place] 00 :00 thrombosis MOUTH EVERY 12 Anderso HOURS n [facility] gabapentin 2022- No Postoperati TAKE 1 Univers (NEURONTIN) 10-09 05-30 ve pain CAPSULE(30 ity of 300 mg 00:00: 00:00 0 MG) BY [place] capsule 00 :00 MOUTH THREE Andmaryo TIMES n DAILY Cancer Center Pantoprazol Yes [id number] 40mg Take 1 More e Sodium 40 4-19 tablet (40 Se ybold MG oral 00:00: mg total) - Tablet 00 by mouth Externa Delayed daily l Response Tramadol Yes [id number] 50mg Take 1 More HCl -19 102 tablet (50 Seybold (ULTRAM) 50 00:00: mg total) - MG oral 00 by mouth 2 [employer] a Tablet times l daily Baclofen 10 Yes [id number] 10mg Take 1 More MG oral 4-19 tablet (10 Seybol d Tablet 00:00: mg total) - 00 by mouth 3 Externa times l daily atorvastati Yes TAKE 1 Univ ers n (LIPITOR) 4-19 TABLET BY ity of 40 mg 00:00: MOUTH ONCE [place] tablet 00 DAILY MD [facility] pantoprazol Yes TAKE 1 Univ ers e 4-19 TABLET BY ity of (PROTONIX) 00:00: MOUTH [place] 40 mg EC 00 DAILY MD terrence [facility] Tramadol 2022- No [id number] 50mg Take 1 More HCl 4-19 06- 102 tablet (50 Seybold (ULTRAM) 50 00:00: 00:00 mg total) - MG oral 00 :00 by mouth 2 [employer] a Tablet times l daily Baclofen 10 2022- No [id number] 10mg Take 1 More MG oral 10-04 tablet (10 Seybo ld Tablet 00:00: 00:00 mg total) - 00 :00 by mouth 3 Externa times l daily Atorvastati 2022- No 40mg Take 1 Jarrett sey n Calcium 10-04 tablet (40 Sey bold 40 MG oral 00:00: 00:00 mg total) - Tablet 00 :00 by mouth Externa daily l Fluconazole Yes More 150 MG oral 10-01 Seybold Tablet 00:00: - 00 Externa l levoFLOXaci Yes TAKE 1 Cony ey n 500 MG 16 TABLET BY Seybol d oral Tablet 00:00: MOUTH - 00 EVERY DAY Externa UNTIL ALL l TAKEN Dulera Yes More 100-5 10-01 Seybold MCG/ACT 00:00: - inhalation 00 Externa Aerosol l predniSONE Yes TAKE 1 Kelse y (DELTASONE) 10-01 TABLET BY Sey bold 20 MG oral 00:00: MOUTH - tablet 00 TWICE Externa DAILY l UNTIL ALL TAKEN. Fluconazole 2022- No Kelse y 150 MG oral 10-01 Seybold Tablet 00:00: 00:00 - 00 :00 Externa l levoFLOXaci 2022-0 2022- No TAKE 1 Jarrett sey n 500 MG 10-01 TABLET BY Seybo ld oral Tablet 00:00: 00:00 MOUTH - 00 :00 EVERY DAY Externa UNTIL ALL l TAKEN Dulera 0 2022- No More 100-5 10-01 Seybold MCG/ACT 00:00: 00:00 - inhalation 00 :00 Externa Aerosol l predniSONE 0 2022- No TAKE 1 Cony ey (DELTASONE) 10-01 TABLET BY Se ybold 20 MG oral 00:00: 00:00 MOUTH - tablet 00 :00 TWICE Externa DAILY l UNTIL ALL TAKEN. Eliquis 2.5 Yes More MG oral 4-12 Seybold Tablet 00:00: - 00 Externa l Eliquis 2.5 2022- No Kelse y MG oral 4-12 06-01 Seybold Tablet 00:00: 00:00 - 00 :00 Externa l Nebulizers Yes See Admin Ke lsey (Vios 3-30 Instructio Seybold Aerosol 00:00: ns - Delivery 00 Externa System) l does not apply Misc Nebulizers Yes See Admin Ke lsey (Vios 3-30 Instructio Seybold Aerosol 00:00: ns - Delivery 00 Externa System) l does not apply Misc Nebulizers Yes See Admin Ke lsey (Vios 3-30 Instructio Seybold Aerosol 00:00: ns - Delivery 00 Externa System) l does not apply Misc albuterol Yes 2.5mg Inhale 3 Uni vers (PROVENTIL, 3-28 mL (2.5 ity o f VENTOLIN) 10:01: mg) by Nie[place] 2.5 mg/3 mL 36 nebulizati (0.083%) on twice Anderso nebulizer daily. n solution Patient Cancer has been Center using 3-4 times a day esomeprazol Yes 40mg Take 1 Univ ers e (NexIUM) 3-28 capsule ity of 40 MG 09:58: (40 mg) by [place] capsule 50 mouth MD every Anderso morning n before Cancer breakfast. Center senna Yes 1{tbl} Take 1 Univers (SENOKOT) 3-28 tablet by ity o f 8.6 mg 09:58: mouth [place] tablet 50 every MD other day. [facility]o [facility] esomeprazol Yes 40mg Take 1 Univ ers e (NexIUM) 3-28 capsule ity of 40 MG 09:58: (40 mg) by [place] capsule 50 mouth MD every Anderso morning n before Cancer breakfast. Center gabapentin Yes Postoperati TAKE 1 Univers (NEURONTIN) 3-17 ve pain CAPSULE(30 ity of 300 mg 00:00: 0 MG) BY [place] capsule 00 MOUTH MD THREE Anderso TIMES n DAILY Cancer Center Gabapentin Yes More 300 MG oral 3-17 Seybold Capsule 00:00: - 00 Externa l Gabapentin 2022- No More 300 MG oral 09-01 Seybold Capsule 00:00: 00:00 - 00 :00 Externa l gabapentin 2022- No Postoperati TAKE 1 Univers (NEURONTIN) 09-01-24 ve pain CAPSULE(30 ity of 300 mg 00:00: 00:00 0 MG) BY [place] capsule 00 :00 MOUTH THREE Anderso TIMES n DAILY Cancer [place] Chlorhexidi 2022- No Kelse y ne 08-1619 Seybold Gluconate 00:00: 00:00 - 0.12 % 00 :00 Externa mouth/throa l t Solution gabapentin 2022- No Postoperati 300mg Take 1 Univers (Neurontin) 08-04 ve pain capsule i ty of 300 mg 00:00: 00:00 (300 mg) [place] capsule 00 :00 by mouth 3 MD (three) Anderso times a n day. [facility] gabapentin 2022- No Postoperati 300mg Take 1 Univers (Neurontin) 08-04 ve pain capsule i ty of 300 mg 00:00: 00:00 (300 mg) [place] capsule 00 :00 by mouth 3 MD (three) Anderso times a n day. 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 [facility] prochlorper Yes Nausea 5mg Take 1 Un devante azine 2-13 tablet (5 ity of (Compazine) 00:00: mg) by Rod s 5 mg tablet 00 mouth MD every 8 Anderso (eight) n hours as Cancer needed for Center nausea. prochlorper Yes Nausea 5mg Take 1 Un devante azine 2-13 tablet (5 ity of (Compazine) 00:00: mg) by Rod montilla 5 mg tablet 00 mouth MD every 8 Anderso (eight) n hours as Cancer needed for Center nausea. apixaban 2022- No Cerebral 2.5mg Take 1 U nivers (Eliquis) 07-31 05-10 venous tablet ity o f 2.5 mg 00:00: 00:00 sinus (2.5 mg) [place] tablet 00 :00 thrombosis by mouth MD every 12 Anderso (twelve) n hours. Cancer Center traMADol 2022- No pain 50mg Take 1 Univer s (ULTRAM) 50 07-27 tablet (50 i ty of mg tablet 00:00: 00:00 mg) by [place] 00 :00 mouth MD daily. Anderso Take only n if needed Cancer and Center decrease use as pain improves traMADol 2022- No pain 50mg Take 1 Univer s (ULTRAM) 50 07-27 tablet (50 i ty of mg tablet 00:00: 00:00 mg) by [place] 00 :00 mouth MD daily. Anderso Take only n if needed Cancer and Center decrease use as pain improves ALBUTEROL Yes [id number] INHALE TWO More HFA 108 (90 1-20 PUFFS BY Seyb old Base) 00:00: MOUTH - MCG/ACT IN 00 EVERY 6 [employer] AERS HOURS l NEEDED FOR WHEEZING ALBUTEROL 0 Yes [id number] INHALE TWO More HFA 108 (90 1-20 PUFFS BY Seyb old Base) 00:00: MOUTH - MCG/ACT IN 00 EVERY 6 [employer] AERS HOURS l NEEDED FOR WHEEZING ALBUTEROL 0 Yes [id number] INHALE TWO More HFA 108 (90 1-20 PUFFS BY Seyb old Base) 00:00: MOUTH - MCG/ACT IN 00 EVERY 6 [employer] AERS HOURS l NEEDED FOR WHEEZING gabapentin 0 2022- No Postoperati Take 1 Univers (NEURONTIN) 06-30 02-04 ve pain capsule i ty of 100 mg 00:00: 05:59 (100 mg) [place] capsule 00 :00 by mouth 3 (three) Anderso times a n day for 7 Cancer days, THEN Center 1 capsule (100 mg) twice daily for 7 days, THEN 1 capsule (100 mg) daily for 7 days. gabapentin 2022- No Postoperati Take 1 Univers (NEURONTIN) 06-30 ve pain capsule i ty of 100 mg 00:00: 05:59 (100 mg) [place] capsule 00 :00 by mouth 3 (three) Anderso times a n day for 7 Cancer days, THEN Center 1 capsule (100 mg) twice daily for 7 days, THEN 1 capsule (100 mg) daily for 7 days. Albuterol Yes [id number] 2.5mg Q4H Take 2.5 More Sulfate 2.5 1-05 mg by Seybold MG/0.5ML 00:00: nebulizati - inhalation 00 on every 4 Ext nikita Inhalant hours as l Solution needed for wheezing Albuterol Yes [id number] 2.5mg Q4H Take 2.5 More Sulfate 2.5 1-05 mg by Seybold MG/0.5ML 00:00: nebulizati - inhalation 00 on every 4 Ext nikita Inhalant hours as l Solution needed for wheezing Albuterol Yes [id number] 2.5mg Q4H Take 2.5 More Sulfate 2.5 1-05 mg by Seybold MG/0.5ML 00:00: nebulizati - inhalation 00 on every 4 Ext nikita Inhalant hours as l Solution needed for wheezing Amoxicillin 2022- No [id number] 1{tbl} Take 1 More -Pot 06-22 tablet by Seybold Clavulanate 00:00: 00:00 mouth 2 - (Augmentin) 00 :00 times Externa 500-125 MG daily l oral Tablet methylPREDN 2022- No [id number] 1{sunil} Take 1 sunil More ISolone 4 06-21 by mouth Seybo ld MG oral 00:00: 00:00 See Admin - Tablet 00 :00 Instructio Externa Therapy ns Use as l Pack directed Sennosides 2021-06 Yes 1{tbl} Take 1 Jarrett sey 8.6 MG oral 2-30 tablet by Sey bold Tablet 09:19: mouth - 17 Externa l Sennosides 2021-06 Yes 1{tbl} Take 1 Jarrett sey 8.6 MG oral 2-30 tablet by Sey bold Tablet 09:19: mouth - 17 Externa l Sennosides 2021-06 Yes 1{tbl} Take 1 Jarrett sey 8.6 MG oral 2-30 tablet by Sey bold Tablet 09:19: mouth - 17 Externa l Gabapentin 2021-06 Yes [id number] 100mg Take 1 More 100 MG oral 2-30 [id number] capsule Seyb old Capsule 00:00: (100 mg - 00 total) by Externa mouth 3 l times daily Tramadol 2021-06 Yes [id number] 50mg Take 1 More HCl 50 MG 2-30 [id number] tablet (50 Sey bold oral Tablet 00:00: mg total) - 00 by mouth 2 Externa times l daily Amoxicillin 2021-06 Yes [id number] 1{tbl} Take 1 More -Pot 2-30 tablet by Seybold Clavulanate 00:00: mouth 2 - (Augmentin) 00 times Externa 500-125 MG daily l oral Tablet Gabapentin 2021-06 Yes [id number] 100mg Take 1 More 100 MG oral 2-30 [id number] capsule Seyb old Capsule 00:00: (100 mg - 00 total) by Externa mouth 3 l times daily Gabapentin 2021-06- No [id number] 100mg Take 1 More 100 MG oral 2-30 - [id number] capsule Sey bold Capsule 00:00: 00:00 (100 mg - 00 :00 total) by Externa mouth 3 l times daily Tramadol 2021-06- No [id number] 50mg Take 1 More HCl 50 MG 2-30 - tablet (50 Se ybold oral Tablet 00:00: 00:00 mg total) - 00 :00 by mouth 2 Externa times l daily Azithromyci 2021-06- No [id number] Take 2 More n 250 MG 2-30 -19 tablets by Seyb old oral Tablet 00:00: 00:00 mouth on - 00 :00 day 1 then Externa 1 tablet l by mouth daily for 4 days thereafter . Azithromyci 2021-063- No [id number] Take 2 More n 250 MG 2-30 01-05 tablets by Seyb old oral Tablet 00:00: 05:59 mouth on - 00 :00 day 1 then Externa 1 tablet l by mouth daily for 4 days thereafter . Atorvastati 2021-06 Yes [id number] 40mg Take 1 More n Calcium 2-22 tablet (40 Seyb old 40 MG oral 00:00: mg total) - Tablet 00 by mouth Externa daily l lidocaine 2021-06 Yes Adenocarcin 1{patch Place 1 Univers (LIDODERM) 2-13 muriel, NOS of } patch on ity of 5% (700 00:00: upper lobe, the skin [place] mg/patch) 00 lung <Left> daily. M D transdermal Remove & Kishore rso patch Discard n patch Cancer within 12 Center hours or as directed by MD. Remove old patch(es) before replacing new patch(es). lidocaine 2021-06 Yes Adenocarcin 1{patch Place 1 Univers (LIDODERM) 2-13 muriel, NOS of } patch on ity of 5% (700 00:00: upper lobe, the skin [place] mg/patch) 00 lung <Left> daily. M D transdermal Remove & Kishore rso patch Discard n patch Cancer within 12 Center hours or as directed by MD. Remove old patch(es) before replacing new patch(es). senna-docus 2021-06 Yes Adenocarcin 2{tbl} Take 2 Univers ate 2-12 muriel, NOS of tablets by it y of (SENOKOT-S) 00:00: upper lobe, mouth 2 [place] 8.6 mg-50 00 lung <Left> (two) MD mg tablet times a Anderso day as n needed for Cancer constipati Center on. Acetaminoph 2021-06 Yes More en Extra 2-12 Seybold Strength 00:00: - 500 MG oral 00 Externa Tablet l Acetaminoph 2021-06 Yes More en Extra 2-12 Seybold Strength 00:00: - 500 MG oral 00 Externa Tablet l senna-docus 2021-06 Yes Adenocarcin 2{tbl} Take 2 Univers ate 2-12 muriel, NOS of tablets by it y of (SENOKOT-S) 00:00: upper lobe, mouth 2 [place] 8.6 mg-50 00 lung <Left> (two) MD mg tablet times a Anderso day as n needed for Cancer constipati Center on. Acetaminoph 2021-06- No Kelse y en Extra 07-30 Seybold Strength 00:00: 00:00 - 500 MG oral 00 :00 Externa Tablet l apixaban 2021-06- No Adenocarcin 5mg Take 1 Univers (Eliquis) 5 07-30 muriel of left tablet (5 ity of mg tablet 00:00: 00:00 lung mg) by [place] 00 :00 mouth MD every 12 Anderso (twelve) n hours. [facility] apixaban 2021-06- No Adenocarcin 5mg Take 1 Univers (Eliquis) 5 07-30 muriel of left tablet (5 ity of mg tablet 00:00: 00:00 lung mg) by [place] 00 :00 mouth MD every 12 Anderso (twelve) n hours. [facility] Center traMADol 2021-06- No pain 50mg Take 1 Univer s (ULTRAM) 50 07-30 tablet (50 i ty of mg tablet 00:00: 00:00 mg) by [place] 00 :00 mouth MD every 6 Anderso (six) n hours as Cancer needed for Center moderate pain. Take only if needed and decrease use as pain improves traMADol 2021-06- No pain 50mg Take 1 Univer s (ULTRAM) 50 07-30 tablet (50 i ty of mg tablet 00:00: 00:00 mg) by [place] 00 :00 mouth MD every 6 Anderso (six) n hours as Cancer needed for Center moderate pain. Take only if needed and decrease use as pain improves gabapentin 2021-06- No Adenocarcin Take 1 Univers (NEURONTIN) 07-30 muriel, NOS of capsule ity of 100 mg 00:00: 05:59 upper lobe, (100 mg) [place] capsule 00 :00 lung <Left> by mouth M D every 8 Anderso (eight) n hours for Cancer 7 days, Center THEN take 1 capsule (100 mg) twice daily for 7 days, THEN take 1 capsule (100 mg) every morning for 7 days. gabapentin 2021-06- No Adenocarcin Take 1 Univers (NEURONTIN) 07-30 muriel, NOS of capsule ity of 100 mg 00:00: 05:59 upper lobe, (100 mg) [place] capsule 00 :00 lung <Left> by mouth M D every 8 Anderso (eight) n hours for Cancer 7 days, Center THEN take 1 capsule (100 mg) twice daily for 7 days, THEN take 1 capsule (100 mg) every morning for 7 days. Tramadol 2021-06- No 50mg Q.25D Take 50 mg K elsey HCl 50 MG 07-30 by mouth Seybo ld oral Tablet 00:00: 00:00 every 6 - 00 :00 hours as Externa needed l Gabapentin 2021-06- No Take by Jarrett sey 100 MG oral 07-30 mouth Seybol d Capsule 00:00: 00:00 - 00 :00 Externa l acetaminoph 2021-06- No Adenocarcin 1000mg Take 2 Univers en 07-30 muriel, NOS of tablets ity of (TYLENOL) 00:00: 05:59 upper lobe, (1,000 mg) [place] 500 mg 00 :00 lung <Left> by mouth MD tablet every 6 Anderso (six) n hours for Cancer 10 days. [place] acetaminoph 2021-06 No Adenocarcin 1000mg Take 2 Univers en 07-30 muriel, NOS of tablets ity of (TYLENOL) 00:00: 05:59 upper lobe, (1,000 mg) [place] 500 mg 00 :00 lung <Left> by mouth MD tablet every 6 Anderso (six) n hours for Cancer 10 days. [place] ProAir HFA 2021-06 Yes [id number] INHALE TWO More 108 (90 2-07 PUFFS BY Seybold Base) 00:00: MOUTH - MCG/ACT 00 EVERY 6 Externa inhalation HOURS l Aerosol NEEDED FOR Solution WHEEZING Sennosides 2021-06 Yes 1{tbl} Take 1 Jarrett sey 8.6 MG oral 1-16 tablet by Sey bold Tablet 13:13: mouth - 53 Externa l Acetaminoph 2021-06 Yes [id number] 1{tbl} Q4H Take 1 More en-Codeine 1-16 [id number] tablet by Se ybold 300-30 MG 00:00: mouth - oral Tablet 00 every 4 Exter na hours as l needed for pain Scopolamine 2021-06 Yes [id number] 1{patch Place 1 More (TRANSDERM- 1-16 } patch onto Se ybold SCOP) 1 00:00: the skin - MG/3DAYS 00 every 72 Externa transdermal hours as l PATCH 72 HR needed Promethazin 2021-06 Yes [id number] 25mg Q.25D Take 1 More e HCl 25 MG 1-16 tablet (25 Se ybold oral Tablet 00:00: mg total) - 00 by mouth Externa every 6 l hours as needed for nausea Acetaminoph 2021-06 Yes [id number] 1{tbl} Q4H Take 1 More en-Codeine 1-16 [id number] tablet by Se ybold 300-30 MG 00:00: mouth - oral Tablet 00 every 4 Exter na hours as l needed for pain Scopolamine 2021-06 Yes [id number] 1{patch Place 1 More (TRANSDERM- 1-16 } patch onto Se ybold SCOP) 1 00:00: the skin - MG/3DAYS 00 every 72 Externa transdermal hours as l PATCH 72 HR needed Promethazin 2021-06 Yes [id number] 25mg Q.25D Take 1 More e HCl 25 MG 1-16 tablet (25 Se ybold oral Tablet 00:00: mg total) - 00 by mouth Externa every 6 l hours as needed for nausea Scopolamine 2021-06 Yes [id number] 1{patch Place 1 More (TRANSDERM- 1-16 } patch onto Se ybold SCOP) 1 00:00: the skin - MG/3DAYS 00 every 72 Externa transdermal hours as l PATCH 72 HR needed Promethazin 2021-06 Yes [id number] 25mg Q.25D Take 1 More e HCl 25 MG 1-16 tablet (25 Se ybold oral Tablet 00:00: mg total) - 00 by mouth Externa every 6 l hours as needed for nausea Scopolamine 2021-063- No [id number] 1{patch Place 1 More (TRANSDERM- 1-16 06-01 } patch onto S eybold SCOP) 1 00:00: 00:00 the skin - MG/3DAYS 00 :00 every 72 Externa transdermal hours as l PATCH [address] HR [address] [facility] 2021-06- No [id number] 25mg Q.25D Take 1 More e HCl 25 MG 07-03 tablet (25 S eybold oral Tablet 00:00: 00:00 mg total) - 00 :00 by mouth Externa every 6 l hours as needed for nausea acetaminoph 2021-06- No Unive rs en-codeine 07-03 ity of (TYLENOL 00:00: 00:00 [place] #3) 300 00 :00 MD mg-30 mg Anderso tablet [facility] acetaminoph 2021-06- No Unive rs en-codeine 07-03 ity of (TYLENOL 00:00: 00:00 [place] #3) 300 00 :00 MD mg-30 mg [place] [facility] Unive rs e 07-03 ity of (PHENERGAN) 00:00: 00:00 [place] 25 mg 00 :00 MD tablet Anderso [facility] scopolamine 2021-06- No Unive rs (TRANSDERM- 07-03 ity of SCOP) 1.5 00:00: 00:00 [place] mg 00 :00 MD transdermal Anderso patch n [facility] promethazin 2021-06- No Unive rs e 07-03 ity of (PHENERGAN) 00:00: 00:00 [place] 25 mg 00 :00 MD tablet Anderso [facility] scopolamine 2021-06- No Unive rs (TRANSDERM- 07-03 ity of SCOP) 1.5 00:00: 00:00 [place] mg 00 :00 MD transdermal Anderso patch [facility] esomeprazol 2021-06 Yes 40mg Take 40 mg Univers e (NexIUM) 0-28 by mouth ity o f 40 MG 13:19: every [place] capsule 53 morning MD before [facility] breakfast. [facility] senna 2021-06 Yes 1{tbl} Take 1 Univers (SENOKOT) 0-28 tablet by ity o f 8.6 mg 13:19: mouth. [place] tablet 53 MD [facility] Ondansetron 2021-06 Yes More (ZOFRAN) 8 0-25 Seybold MG oral 00:00: - tablet 00 Externa l Dexamethaso 2021-06 Yes More ne 0-25 Seybold (DECADRON) 00:00: - 4 MG oral 00 Externa tablet l Ondansetron 2021-06 Yes More (ZOFRAN) 8 0-25 Seybold MG oral 00:00: - tablet 00 Externa l Dexamethaso 2021-06 Yes More ne 0-25 Seybold (DECADRON) 00:00: - 4 MG oral 00 Externa tablet l Ondansetron 2021-06 Yes More (ZOFRAN) 8 0-25 Seybold MG oral 00:00: - tablet 00 Externa l Dexamethaso 2021-06 Yes More ne 0-25 Seybold (DECADRON) 00:00: - 4 MG oral 00 Externa tablet l Ondansetron 2021-06- No Kelse y (ZOFRAN) 8 0-25 06-01 Seybold MG oral 00:00: 00:00 - tablet 00 :00 Externa l Dexamethaso 2021-06- No Kelse y ne 0-25 06-01 Seybold (DECADRON) 00:00: 00:00 - 4 MG oral 00 :00 Externa tablet l Atorvastati 2021-06 Yes 1{tbl} Take 1 Ke lsey n Calcium 0-21 tablet by Seybo ld 40 MG oral 00:00: mouth - Tablet 00 daily Externa l cholecalcif 2021-06- No 1000U Take 1,000 Univers rick, 0-03 10-03 Units by ity of vitamin D3, 08:19: 00:00 [place] 25 mcg 45 :00 daily. (1,000 Anderso unit) n [facility] cholecalcif 2021-06- No 1000U Take 1,000 Univers rick, 0-03 10-03 Units by ity of vitamin D3, 08:19: 00:00 mouth [place] 25 mcg 45 :00 daily. (1,000 Anderso unit) [facility] cholecalcif 2021-06- No 1000U Take 1,000 Univers rick, 0-03 10-03 Units by ity of vitamin D3, 08:19: 00:00 mouth [place] 25 mcg 45 :00 daily. (1,000 Anderso unit) bowen [facility] budonide- 2021-06- No Inhale by Univers formoterol 0-03 10-03 mouth ity of (SYMBICORT) 08:19: 00:00 twice [place] 160-4.5 39 :00 daily. MD ezio Walter on inhaler [facility] budesonide- 2021-06- No Inhale by Univers formoterol 0-03 10-03 mouth ity of (SYMBICORT) 08:19: 00:00 twice [place] 160-4.5 39 :00 daily. MD ezio Walter on inhaler [facility] budonide- 2021-06- No Inhale by Univers formoterol 0-03 10-03 mouth ity of (SYMBICORT) 08:19: 00:00 twice [place] 160-4.5 39 :00 daily. MD ezio Walter on inhaler [facility] ascorbic 2021-06- No 500mg Take 500 Uni vers acid 0-03 10-03 mg by ity of (VITAMIN C) 08:19: 00:00 mouth [place] 500 mg 14 :00 daily. MD ocampo [facility] ascorbic 2021-06 No 500mg Take 500 Uni vers acid 0-03 10-03 mg by ity of (VITAMIN C) 08:19: 00:00 mouth [place] 500 mg 14 :00 daily. [facility] ascorbic 2021-06 No 500mg Take 500 Uni vers acid 0-03 10-03 mg by ity of (VITAMIN C) 08:19: 00:00 mouth [place] 500 mg 14 :00 daily. MD ocampo [facility] calcium 2021-06- No 1{tbl} Take 1 Unive rs carbonate 0-03 10-03 tablet by ity of (CALCIUM 08:19: 00:00 mouth [place] 500 ORAL) 01 :00 daily. MD Walter [facility] calcium 2021-06- No 1{tbl} Take 1 Unive rs carbonate 0-03 10-03 tablet by ity of (CALCIUM 08:19: 00:00 mouth [place] 500 ORAL) 01 :00 daily. MD Jose Angel wiseman [facility] calcium 2021-06- No 1{tbl} Take 1 Unive rs carbonate 0-03 10-03 tablet by ity of (CALCIUM 08:19: 00:00 mouth [place] 500 ORAL) 01 :00 daily. MD Jose Angel wiseman [facility] baclofen Yes 3 (three) Univ ers (LIORESAL) 9-23 times a ity of 10 mg 00:00: day as [place] tablet 00 needed. MD Jose Angel wiseman [facility] Baclofen 10 Yes [id number] 10mg Take 1 More MG oral 9-23 tablet (10 Seybol d Tablet 00:00: mg total) - 00 by mouth 3 Externa times l daily Baclofen 10 Yes [id number] 10mg Take 1 More MG oral 9-23 tablet (10 Seybol d Tablet 00:00: mg total) - 00 by mouth 3 Externa times l daily Baclofen 10 2022- No [id number] 10mg Take 1 More MG oral 9- 04-19 tablet (10 Seybo ld Tablet 00:00: 00:00 mg total) - 00 :00 by mouth 3 Externa times l daily baclofen 2022- No 3 (three) Uni vers (LIORESAL) 03-10 03-28 times a ity o f 10 mg 00:00: 00:00 day as [place] tablet 00 :00 needed. MD Jose Angel wiseman [facility] baclofen 2022- No 3 (three) Uni vers (LIORESAL) 03-10-28 times a ity o f 10 mg 00:00: 00:00 day as [place] tablet 00 :00 needed. MD Jose Angel wiseman [facility] atorvastati Yes Univer s n (LIPITOR) 9-20 ity of 40 mg 00:00: [place] tablet 00 MD Jose Angel wiseman [facility] atorvastati 2022- No 40mg Take 1 Uni vers n (LIPITOR) 03-07 03-06 tablet (40 i ty of 40 mg 00:00: 00:00 mg) by [place] tablet 00 :00 mouth at bedtime. [facility] atorvastati 3- No 40mg Take 1 Uni vers n (LIPITOR) 03-07 03-06 tablet (40 i ty of 40 mg 00:00: 00:00 mg) by [place] tablet 00 :00 mouth at MD bedtime. [facility] esomeprazol Yes 40mg Take 40 mg Univers e (NexIUM) 9-12 by mouth ity o f 40 MG 09:22: every [place] capsule 18 [facility] calcium Yes 1{tbl} Take 1 Univer s carbonate 9-12 tablet by ity o f (CALCIUM 09:22: mouth [place] 500 ORAL) [facility] cholecalcif Yes 1000U Take 1,000 Univers rick, 9-12 Units by ity of vitamin D3, 09:22: mouth [place] 25 mcg 18 daily. (1,000 Shruthierso unit) bowen capsule [facility] ascorbic Yes 500mg Take 500 Univ ers acid 9-12 mg by ity of (VITAMIN C) 09:22: mouth [place] 500 mg 18 daily. tablet [facility] budesonide- Yes Inhale by U nivers formoterol 9-12 mouth ity of (SYMBICORT) 09:22: twice [place] 160-4.5 18 daily. MD morris/ruth Walter on inhaler [facility] apixaban Yes Adenocarcin 5mg Take 1 Univers (Eliquis) 5 9-12 muriel of left tablet (5 ity of mg tablet 00:00: lung mg) by [place] 00 mouth every 12 Anderso (twelve) n hours. [facility] fluticasone Yes Simple 1{puff} Inhale 1 Univers propion-funmi 9-12 chronic puff by it y of meteroL 00:00: bronchitis mouth Bl[place] 232-14 00 twice mcg/acturosalia daily. Darryl o on aepb [facility] apixaban Yes Adenocarcin 5mg Take 1 Univers (Eliquis) 5 9-12 muriel of left tablet (5 ity of mg tablet 00:00: lung mg) by [place] 00 mouth MD every 12 Anderso (twelve) n hours. [facility] fluticasone Yes Simple 1{puff} Inhale 1 Univers propion-funmi 02-27 chronic puff by it y of meteroL 00:00: bronchitis mouth [place] 232-14 00 twice MD mcg/actuati daily. Darryl o on ae n [facility] Apixaban 5 Yes 5mg 5 mg More MG oral 02-27 Seybold Tablet 00:00: - 00 Externa l Apixaban 5 0 Yes 5mg 5 mg More MG oral 02-27 Seybold Tablet 00:00: - 00 Externa l Apixaban 5 2021-0 Yes 5mg 5 mg More MG oral 02-27 Seybold Tablet 00:00: - 00 Externa l Apixaban 5 0 2022- No 5mg 5 mg More MG oral 02-27 06 Seybold Tablet 00:00: 00:00 - 00 :00 Externa l apixaban 2021- No Adenocarcin 5mg Take 1 Univers (Eliquis) 5 02-27 12-12 muriel of left tablet (5 ity of mg tablet 00:00: 00:00 lung mg) by [place] 00 :00 mouth every 12 Anderso (twelve) n hours. [facility] apixaban 2021- No Adenocarcin 5mg Take 1 Univers (Eliquis) 5 02-27 12-12 muriel of left tablet (5 ity of mg tablet 00:00: 00:00 lung mg) by [place] 00 :00 mouth every 12 Anderso (twelve) n hours. [facility] fluticasone 2021- No Simple 1{puff} Inhale 1 Univers propion-funmi 02-27- chronic puff by i ty of meteroL 00:00: 00:00 bronchitis mouth [place] 232-14 00 :00 twice MD mcg/actuati daily. Darryl o on ae n [facility] fluticasone 2021- No Simple 1{puff} Inhale 1 Univers propion-funmi 02-27-22 chronic puff by i ty of meteroL 00:00: 00:00 bronchitis mouth [place] 232-14 00 :00 twice MD mcg/actuati daily. Darryl o on aepb n [facility] folic acid Yes Adenocarcin 400ug Take 1 Univers (FOLVITE) 02-24 muriel, NOS of tablet i ty of 400 mcg 00:00: upper lobe, (400 mcg) [place] tablet 00 lung <Left> by mouth MD daily. [facility] dexamethaso Yes Adenocarcin 4mg Take 1 Univers [...] 00 lung <Left> by mouth MD daily. [facility] dexamethaso Yes Adenocarcin 4mg Take 1 Univers ne 02-24 muriel, NOS of tablet (4 ity of (DECADRON) 00:00: upper lobe, mg) by [place] 4 mg tablet 00 lung <Left> mouth twice Anderso daily. n Take on Cancer [...] mouth MD daily. [facility] folic acid Yes Adenocarcin 400ug Take 1 Univers (FOLVITE) 02-24 muriel, NOS of tablet i ty of 400 mcg 00:00: upper lobe, (400 mcg) [place] tablet 00 lung <Left> by mouth MD daily. [facility] Folic Acid Yes 400ug Take 400 Ke lsey 400 MCG 02-24 mcg by Seybold oral Tablet 00:00: mouth - 00 daily Externa l Folic Acid 0 Yes 400ug Take 400 Ke lsey 400 MCG 9- mcg by Seybold oral Tablet 00:00: mouth - 00 daily Externa l Folic Acid 0 Yes 400ug Take 400 Ke lsey 400 MCG 9 mcg by Seybold oral Tablet 00:00: mouth - daily Externa l Folic Acid 0 Yes 400ug Take 400 Ke lsey 400 MCG 02-24 mcg by Seybold oral Tablet 00:00: mouth - 00 daily Externa l Folic Acid Yes 400ug Take 1 Cony ey 400 MCG 02-24 tablet Seybold oral Tablet 00:00: (400 mcg - 00 total) by Externa mouth l daily dexamethaso 2021- No Adenocarcin 4mg Take 1 Univers ne 02-24 muriel, NOS of tablet (4 it y of (DECADRON) 00:00: 00:00 upper lobe, mg) by [place] 4 mg tablet 00 :00 lung <Left> mouth MD twice Anderso daily. n Take on Cancer days 2, 3, Center and 4 of each chemothera py cycle ondansetron 2021- No Adenocarcin 8mg Take 1 Univers (ZOFRAN) 8 02-24 muriel, NOS of tablet (8 ity of mg tablet 00:00: 00:00 upper lobe, mg) by [place] 00 :00 lung <Left> mouth MD every 8 Anderso (eight) n hours as Cancer needed for Center nausea or vomiting. dexamethaso 2021- No Adenocarcin 4mg Take 1 Univers ne 02-24 muriel, NOS of tablet (4 it y of (DECADRON) 00:00: 00:00 upper lobe, mg) by [place] 4 mg tablet 00 :00 lung <Left> mouth MD twice Anderso daily. n Take on Cancer days 2, 3, Center and 4 of each chemothera py cycle ondansetron 2021- No Adenocarcin 8mg Take 1 Univers (ZOFRAN) 8 02-24 11-22 muriel, NOS of tablet (8 ity of mg tablet 00:00: 00:00 upper lobe, mg) by [place] 00 :00 lung <Left> mouth MD every 8 Anderso (eight) n hours as Cancer needed for Center nausea or vomiting. apixaban 2021- No Adenocarcin 5mg Take 1 Univers (Eliquis) 5 02-23-12 muriel of left tablet (5 ity of mg tablet 00:00: 00:00 lung mg) by [place] 00 :00 mouth MD every 12 Anderso (twelve) n hours. [facility] apixaban 2021- No Adenocarcin 5mg Take 1 Univers (Eliquis) 5 02-2312 muriel of left tablet (5 ity of mg tablet 00:00: 00:00 lung mg) by [place] 00 :00 mouth MD every 12 Anderso (twelve) n hours. [facility] apixaban 2021- No Adenocarcin 5mg Take 1 Univers (Eliquis) 5 02-23-12 muriel of left tablet (5 ity of mg tablet 00:00: 00:00 lung mg) by [place] 00 :00 mouth MD every 12 Anderso (twelve) n hours. [facility] apixaban 2021- No Adenocarcin 5mg Take 1 Univers (Eliquis) 5 02-23-12 muriel of left tablet (5 ity of mg tablet 00:00: 00:00 lung mg) by [place] 00 :00 mouth MD every 12 Anderso (twelve) n hours. [facility] Nicoderm CQ Yes Nicotine Apply 1 Univers 21 mg/24 hr 02-07 dependence patch to ity of transdermal 00:00: [...] Nicotine 2mg Dissolve 1 Univers mg mini 8- dependence lozenge (2 ity of lozenge 00:00: mg[place] 00 mouth [place] every 2 Anderso (two) n hours as Cancer needed for Center smoking cessation. Avoid acidic beverages during, 5 min before/aft er use Nicoderm CQ 2021- No Nicotine Apply 1 Univers 21 mg/24 hr 8- 11- dependence patch to ity of transdermal 00:00: 00:00 skin and [place] patch 00 :00 change MD patch Anderso daily as n directed Cancer for Center tobacco cessation (alternate sites). Nicorette 2 2021- No Nicotine 2mg Dissolve 1 Univers mg mini 8 11- dependence lozenge (2 ity of lozenge 00:00: 00:00 mg) in the [place] 00 :00 mouth MD every 2 Anderso (two) n hours as Cancer needed for Center smoking cessation. Avoid acidic beverages during, 5 min before/aft er use Nicoderm CQ 2021- No Nicotine Apply 1 Univers 21 mg/24 hr 8 11- dependence patch to ity of transdermal 00:00: 00:00 skin and [place] patch 00 :00 change MD patch Anderso daily as n directed Cancer for Center tobacco cessation (alternate sites). Nicorette 2 2021- No Nicotine 2mg Dissolve 1 Univers mg mini 8 11- dependence lozenge (2 ity of lozenge 00:00: 00:00 mg) in the [place] 00 :00 mouth MD every 2 Anderso (two) n hours as Cancer needed for Center smoking cessation. Avoid acidic beverages during, 5 min before/aft er use FLUTICASONE Yes [id number] SPRAY 1 More PROPIONATE, 8-17 SPRAY INTO Se ybold NASAL, 50 00:00: EACH - MCG/ACT 00 NOSTRIL Externa nasal EVERY DAY l Suspension FLUTICASONE 2021-0 Yes [id number] SPRAY 1 More PROPIONATE, 8-17 SPRAY INTO Se ybold NASAL, 50 00:00: EACH - MCG/ACT 00 NOSTRIL Externa nasal EVERY DAY l Suspension FLUTICASONE 2021-0 Yes [id number] SPRAY 1 More PROPIONATE, 8-17 SPRAY INTO Se ybold NASAL, 50 00:00: EACH - MCG/ACT 00 NOSTRIL Externa nasal EVERY DAY l Suspension FLUTICASONE 2021-0 2023- No [id number] SPRAY 1 More PROPIONATE, 8-17 06-01 SPRAY INTO S eybold NASAL, 50 00:00: 00:00 EACH - MCG/ACT 00 :00 NOSTRIL Externa nasal EVERY DAY l Suspension apixaban Yes Adenocarcin Take 2 Univers (Eliquis [...] daily thereafter . apixaban 2021- No Adenocarcin Take 2 Univers (Eliquis 7-25 12-12 muriel of left tablets by ity of DVT-PE 00:00: 00:00 lung mouth [place] Treat 00 :00 twice MD Start) 5 mg daily for And erso (74 tabs) 7 days, n tablet then take Cancer 1 tablet Center by mouth twice daily thereafter . apixaban 2021- No Adenocarcin Take 2 Univers (Eliquis 7-25 12-12 muriel of left tablets by ity of DVT-PE 00:00: 00:00 lung mouth [place] Treat 00 :00 twice MD Start) 5 mg daily for And erso (74 tabs) 7 days, n tablet then take Cancer 1 tablet Center by mouth twice daily thereafter . apixaban 2021- No Adenocarcin 5mg Take 1 Univers (Eliquis) 5 01-09-08 muriel of left tablet (5 ity of mg tablet 00:00: 00:00 lung mg) by [place] 00 :00 mouth every 12 Anderso (twelve) n hours. [facility] apixaban 2021- No Adenocarcin 5mg Take 1 Univers (Eliquis) 5 01-09-08 muriel of left tablet (5 ity of mg tablet 00:00: 00:00 lung mg) by [place] 00 :00 mouth MD every 12 Anderso (twelve) n hours. [facility] apixaban 2021- No Adenocarcin 5mg Take 1 Univers (Eliquis) 5 01-09-08 muriel of left tablet (5 ity of mg tablet 00:00: 00:00 lung mg) by [place] 00 :00 mouth every 12 Anderso (twelve) n hours. [facility] apixaban 2021- No Adenocarcin 5mg Take 1 Univers (Eliquis) 5 01-09-08 muriel of left tablet (5 ity of mg tablet 00:00: 00:00 lung mg) by [place] 00 :00 mouth every 12 Anderso (twelve) n hours. [facility] aspirin 325 2021- No 325mg Take 325 Univers mg tablet 12-27 06-29 mg by ity of 20:19: 00:00 mouth. [place] 54 :00 MD Jose Angel wiseman [facility] aspirin 325 2021- No 325mg Take 325 Univers mg tablet 12-27 06-29 mg by ity of 20:19: 00:00 mouth. [place] 54 :00 MD Jose Angel wiseman [facility] aspirin 325 2021- No 325mg Take 325 Univers mg tablet 12-27 06-29 mg by ity of 20:19: 00:00 mouth. [place] 54 :00 MD [facility] Nicoderm CQ 2021- No Nicotine Apply 1 Univers 21 mg/24 hr 12-14 08-23 dependence patch to ity of transdermal 00:00: [...] 2mg Dissolve 1 Univers mg mini 12-14 08-23 dependence lozenge (2 ity of lozenge 00:00: [...] 90 00 MD mcg/puff Anderso inhaler n [facility] albuterol Yes 2{puff} Inhale 2 U nivers (VENTOLIN 6-20 puffs by ity of HFA,PROAIR 00:00: mouth as [place] as HFA) 90 00 needed. MD mcg/puff Anderso inhaler n [facility] Albuterol Yes [id number] 2{puff} Q.25D Inhale 2 More HFA (PROAIR 6-20 puffs into Se ybold HFA) 108 00:00: the lungs - (90 Base) 00 every 6 Externa MCG/ACT IN hours as l AERS needed for wheezing albuterol 2022- No 2{puff} Inhale 2 Univers (VENTOLIN 6-20 03-06 puffs by ity o f HFA,PROAIR 00:00: 00:00 [place] HFA[place] 90 00 :00 needed. MD mcg/puff Anderso inhaler n [facility] albuterol 2022- No 2{puff} Inhale 2 Univers (VENTOLIN 6-20 03-06 puffs by ity o f HFA,PROAIR 00:00: 00:00 mouth [place] HFA) 90 00 :00 needed. MD mcg/puff Anderso inhaler n [facility] fluticasone Yes 1{spray Inhale 1 Univers propionate 6-13 } spray into ity of (FLONASE) 00:00: each [place] 50 00 nostril as MD mcg/spray needed. Anderso nasal spray n [facility] fluticasone Yes 1{spray Inhale 1 Univers propionate 6-13 } spray into ity of (FLONASE) 00:00: each [place] 50 00 nostril as MD mcg/spray needed. Anderso nasal spray [facility] fluticasone 2022- No 50ug Inhale 1 U nivers propionate 11-28-06 spray (50 ity of (FLONASE) 00:00: 00:00 mcg) into [place] 00 :00 each MD mcg/spray nostril as Kishore rso nasal spray needed. [facility] fluticasone 2022- No 50ug Inhale 1 U nivers propionate 11-28-06 spray (50 ity of (FLONASE) 00:00: 00:00 mcg) into [place] 50 00 :00 each MD mcg/spray nostril as Kishore rso nasal spray needed. [facility] Alendronate Yes [id number] 70mg Take 1 More Sodium 70 6-01 tablet (70 Seyb old MG oral 00:00: mg total) - Tablet 00 by mouth Externa every 7 l days Alendronate Yes [id number] 70mg Take 1 More Sodium 70 6-01 tablet (70 Seyb old MG oral 00:00: mg total) - Tablet 00 by mouth Externa every 7 l days Alendronate Yes [id number] 70mg Take 1 More Sodium 70 6-01 tablet (70 Seyb old MG oral 00:00: mg total) Tablet 00 by mouth every 7 days Alendronate Yes [id number] 70mg Take 1 More Sodium 70 6-01 tablet (70 Seyb old MG oral 00:00: mg total) - Tablet 00 by mouth Externa every 7 l days Alendronate 2022- No [id number] 70mg Take 1 More Sodium 70 - 06-01 tablet (70 Sey bold MG oral 00:00: 00:00 mg total) - Tablet 00 :00 by mouth Externa every 7 l days alendronate 2021- No 1{tbl} Take 1 U nivers (FOSAMAX) 11-16- tablet by ity of 70 mg 00:00: 00:00 mouth once [place] tablet 00 :00 a week. MD Walter [facility] alendronate 2021- No 1{tbl} Take 1 U nivers (FOSAMAX) 11-16 tablet by ity of 70 mg 00:00: 00:00 mouth once [place] tablet 00 :00 a week. MD Jose Angel wiseman [facility] alendronate 2021- No 1{tbl} Take 1 U nivers (FOSAMAX) 11-16 tablet by ity of 70 mg 00:00: 00:00 mouth once [place] tablet 00 :00 a week. MD Jose Angel wiseman [facility] Fluticasone Yes 1{puff} Inhale 1 More -Salmeterol 5-16 puff into Sey bold 232-14 00:00: the lungs - MCG/ACT 00 2 times Externa inhalation daily l AEROSOL POWDER, BREATH ACTIVATED Fluticasone 0 Yes 1{puff} Inhale 1 More -Salmeterol 5-16 puff into Sey bold 232-14 00:00: the lungs - MCG/ACT 00 2 times Externa inhalation daily l AEROSOL POWDER, BREATH ACTIVATED Fluticasone 2021-0 Yes 1{puff} Inhale 1 More -Salmeterol 5-16 puff into Sey bold 232-14 00:00: the lungs - MCG/ACT 00 2 times Externa inhalation daily l AEROSOL POWDER, BREATH ACTIVATED Fluticasone 2021-0 Yes 1{puff} Inhale 1 More -Salmeterol 5-16 puff into Sey bold 232-14 00:00: the lungs - MCG/ACT 00 2 times Externa inhalation daily l AEROSOL POWDER, BREATH ACTIVATED Fluticasone 2021-0 Yes 1{puff} Inhale 1 More -Salmeterol 5-16 puff into Sey bold 232-14 00:00: the lungs MCG/ACT 00 2 times inhalation daily AEROSOL POWDER, BREATH ACTIVATED Fluticasone 2-0 Yes 1{puff} Inhale 1 More -Salmeterol 5-16 puff into Sey bold 232-14 00:00: the lungs MCG/ACT 00 2 times inhalation daily AEROSOL POWDER, BREATH ACTIVATED Fluticasone 2021-0 Yes 1{puff} Inhale 1 More -Salmeterol 5-16 puff into Sey bold 232-14 00:00: the lungs - MCG/ACT 00 2 times Externa inhalation daily l AEROSOL POWDER, BREATH ACTIVATED Fluticasone 0 Yes 1{puff} Inhale 1 More -Salmeterol 5-16 puff into Ricardo major 14 00:00: the lungs - MCG/ACT 00 2 times Externa inhalation daily l AEROSOL POWDER, BREATH ACTIVATED Fluticasone 2021-0 3- No 1{puff} Inhale 1 More -Salmeterol 5-16 06-01 puff into formerly [facility] [id number] 00:00: 00:00 the lungs - MCG/ACT 00 :00 2 times Externa inhalation daily l AEROSOL POWDER, BREATH ACTIVATED Fluticasone 2021-0 3- No 1{puff} Inhale 1 More -Salmeterol 5-16 06-01 puff into formerly [facility] [id number] 00:00: 00:00 the lungs - MCG/ACT 00 :00 2 times Externa inhalation daily l AEROSOL POWDER, BREATH ACTIVATED fluticasone 2021-0 2- No 1{puff} Inhale 1 Univers propion-funmi 5-16 09-12 puff by ity of meteroL 00:00: 00:00 [place] [id number] 00 :00 twice MD mcg/actuati daily. Darryl brown on [facility] fluticasone 2021-0 2- No 1{puff} Inhale 1 Univers propion-funmi 5-16 09-12 puff by ity of meteroL 00:00: 00:00 [place] [id number] 00 :00 twice MD mcg/actuati daily. Darryl brown on [facility] fluticasone 2022-0 2022- No 1{puff} Inhale 1 Univers propion-funmi 5-16 09-12 puff by ity of meteroL 00:00: 00:00 [place] [id number] 00 :00 twice MD mcg/actuati daily. Darryl brown on [facility] fluticasone 2022-0 2- No 1{puff} Inhale 1 Univers propion-funmi 5-16 09-12 puff by ity of meteroL 00:00: 00:00 [place] [id number] 00 :00 twice MD mcg/actuati daily. Darryl marie [facility] FLUTICASONE Yes [id number] 50ug Use 1 More PROPIONATE, 5-13 spray (50 Sey bold NASAL, 50 00:00: mcg total) MCG/ACT 00 in each nasal nostril Suspension daily Fluticasone Yes 1{puff} Inhale 1 More -Salmeterol 4-28 puff into Sey bold 232-14 00:00: the lungs MCG/ACT 00 2 times inhalation daily AEROSOL POWDER, BREATH ACTIVATED Budesonide- 2021- No 2{puff} Inhale 2 More Formoterol 3-30 03-30 puffs into Se ybold Fumarate 11:25: 00:00 the lungs 160-4.5 58 :00 2 times MCG/ACT daily inhalation Aerosol Albuterol 2021- No 1{puff} Inhale 1 More Sulfate 108 3-30 03-30 puff into Se ybold (90 Base) 11:14: 00:00 the lungs MCG/ACT 07 :00 every 4 to inhalation 6 hours as AEROSOL needed POWDER, BREATH ACTIVATED Fluticasone Yes [id number] Inhale 1 More -Umeclidin- 3-30 inhalation Se ybold Vilant 00:00: into the (Trelegy 00 lungs Ellipta) daily 100-62.5-25 MCG/INH inhalation AEROSOL POWDER, BREATH ACTIVATED Fluticasone 2021- No [id number] Inhale 1 More -Umeclidin- 3-30 04-28 inhalation S eybold Vilant 00:00: 00:00 into the ([place] 00 :00 lungs Ellipta) daily 100-62.5-25 MCG/INH inhalation AEROSOL POWDER, BREATH ACTIVATED ProAir HFA Yes 1{puff} Inhale 1 Univers 90 3-28 puff by ity of mcg/actuati 00:00: mouth [place] on inhaler 00 needed. MD Jose Angel wiseman [facility] ProAir HFA Yes More 108 (90 3-28 Seybold Base) 00:00: MCG/ACT 00 inhalation Aerosol Solution ProAir HFA Yes 2{puff} Inhale 2 More 108 (90 3-28 puffs into Seybol d Base) 00:00: the lungs MCG/ACT 00 inhalation Aerosol Solution ProAir HFA Yes 2{puff} Inhale 2 More 108 (90 3-28 puffs into Seybol d Base) 00:00: the lungs MCG/ACT 00 inhalation Aerosol Solution ProAir HFA 2021- No 1{puff} Inhale 1 Univers 90 3-28 10-03 puff by ity of mcg/actuati 00:00: 00:00 mouth as [place] on inhaler 00 :00 needed. MD Jose Angel wiseman [facility] ProAir HFA 2021- No 1{puff} Inhale 1 Univers 90 3-28 10-03 puff by ity of mcg/actuati 00:00: 00:00 mouth as [place] on inhaler 00 :00 needed. MD Jose Angel wiseman [facility] ProAir HFA 2021- No 1{puff} Inhale 1 Univers 90 3-28 10-03 puff by ity of mcg/actuati 00:00: 00:00 mouth as [place] on inhaler 00 :00 needed. MD Walter [facility] metoprolol Yes 50mg Take 1 Unive rs tartrate 2-15 tablet (50 ity o f (LOPRESSOR) 00:00: mg[place] 50 mg 00 mouth MD tablet twice Anderso daily. [facility] metoprolol Yes 1{tbl} Take 1 Uni vers tartrate 2-15 tablet by ity of (LOPRESSOR) 00:00: mouth [place] 50 mg 00 daily. tablet Jose Angel [facility] metoprolol Yes 1{tbl} Take 1 Uni vers tartrate 2-15 tablet by ity of (LOPRESSOR) 00:00: mouth [place] 50 mg 00 twice MD tablet daily. Jose Angel [facility] metoprolol Yes 50mg Take 1 Unive rs tartrate 2-15 tablet (50 ity o f (LOPRESSOR) 00:00: mg) [place] 50 mg 00 mouth MD tablet twice Anderso daily. [facility] Metoprolol Yes 50mg Take 50 mg K elsey Tartrate 50 2-15 by mouth Seyb old MG oral 00:00: in the - Tablet 00 morning Externa and 50 mg l in the evening. Metoprolol 0 Yes 50mg Take 1 Kelse y Tartrate 50 2-15 tablet (50 Se ybold MG oral 00:00: mg total) - Tablet 00 by mouth 2 Externa times l daily Metoprolol 2021-0 Yes More Tartrate 50 2-15 Seybold MG oral 00:00: Tablet 00 Metoprolol 2021-0 Yes 50mg Take 1 Kelse y Tartrate 50 2-15 tablet (50 Se ybold MG oral 00:00: mg total) - Tablet 00 by mouth 2 Externa times l daily Metoprolol 0 Yes 50mg Take 1 Kelse y Tartrate 50 2-15 tablet (50 Se ybold MG oral 00:00: mg total) - Tablet 00 by mouth 2 Externa times l daily Metoprolol 0 Yes 50mg Take 50 mg K elsey Tartrate 50 2-15 by mouth Seyb old MG oral 00:00: in the Tablet 00 morning and 50 mg in the evening. Metoprolol 0 Yes 50mg Take 50 mg K elsey Tartrate 50 2-15 by mouth Seyb old MG oral 00:00: in the Tablet 00 morning and 50 mg in the evening. Metoprolol 0 Yes 50mg Take 50 mg K elsey Tartrate 50 2-15 by mouth Seyb old MG oral 00:00: in the - Tablet 00 morning Externa and 50 mg l in the evening. Symbicort 2020-06- No 1{puff} Inhale 1 Univers 160-4.5 2-02 21- puff by ity of mcg/actuati 00:00: 00:[place] inhaler 00 :00 daily. MD Walter [facility] Symbicort 2020-06- No 1{puff} Inhale 1 Univers 160-4.5 -02 21- puff by ity of mcg/actuati 00:00: 00:00 [place] inhaler 00 :00 daily. MD Jose Angel wiseman [facility] Symbicort 2020-06- No 1{puff} Inhale 1 Univers 160-4.5 -02 21- puff by ity of mcg/actuati 00:00: 00:00 mouth [place] on inhaler 00 :00 daily. MD [facility] Immunizations Ordered Immunization Filled Immunization Date Status Commen ts Source Name Name Pneumococcal 2017-09-20 Completed University o f Polysaccharide 00:00:00 [place] [facility] Pneumococcal 2017-09-20 Completed University o f Polysaccharide 00:00:00 [place] [facility] Pneumococcal 2017-09-20 Completed University o f Polysaccharide 00:00:00 [place] [facility] Pneumococcal 2017-09-20 Completed University o f Polysaccharide 00:00:00 [place] [facility] Pneumococcal Vaccine, 2017-09-20 Completed Jarrett sey Seybold - Polysaccharide 00:00:00 External Pneumococcal Vaccine, 2017-09-20 Completed Jarrett sey Seybold - Polysaccharide 00:00:00 External Pneumococcal Vaccine, 2017-09-20 Completed Jarrett sey Seybold - Polysaccharide 00:00:00 External Pneumococcal Vaccine, 2017-09-20 Completed Jarrett sey Seybold - Polysaccharide 00:00:00 External Pneumococcal Vaccine, 2017-09-20 Completed Jarrett sey Seybold - Polysaccharide 00:00:00 External Pneumococcal Vaccine, 2017-09-20 Completed Jarrett sey Seybold Polysaccharide 00:00:00 Vital Signs Vital Name Observation Time Observation Value Comments Source Systolic blood 2023-01-16 19:34:00 140 mm[Hg] More Murphyybold - pressure External Diastolic blood 2023-01-16 19:34:00 74 mm[Hg] Shraddha horn Seybold - pressure External Heart rate 2023-01-16 19:34:00 64 /min More alvarez - External Body temperature 2023-01-16 19:34:00 36.22 Charlette Cony murray Seybold - External Respiratory rate 2023-01-16 19:34:00 16 /min Cony murray Seybjefry - External Body weight 2023-01-16 19:34:00 52.617 kg More alvarez - External BMI 2023-01-16 19:34:00 21.22 kg/m2 More alvarez - External Oxygen saturation in 2023-01-16 19:34:00 96 /min More Mendes - Arterial blood by External Pulse oximetry Systolic blood 2022-12-08 15:46:00 144 mm[Hg] Univer sity of pressure [facility] Diastolic blood 2022-12-08 15:46:00 80 mm[Hg] Unive rsity of [facility] Heart rate 2022-12-08 15:46:00 55 /min Universi ty [facility] Oxygen saturation in 2022-12-08 15:46:00 95 /min University of Arterial blood by [place] [facility] Pulse oximetry Branch Body temperature 2022-12-08 15:44:00 36.72 Charlette Univ ersity of [facility] Respiratory rate 2022-12-08 15:44:00 16 /min Univ ersity [facility] Body height 2022-12-08 15:44:00 157.5 cm Universi ty [facility] Body weight 2022-12-08 15:44:00 49.805 kg Universi ty [facility] BMI 2022-12-08 15:44:00 20.08 kg/m2 [facility] Systolic blood 2022-11-16 16:33:00 145 mm[Hg] More Seybold - pressure External Diastolic blood 2022-11-16 16:33:00 77 mm[Hg] Jarrettse y Seybold - pressure External Heart rate 2022-11-16 16:33:00 57 /min Morericardo murraybold - External Body temperature 2022-11-16 16:33:00 37 Charlette Cony ey Seybold - External Respiratory rate 2022-11-16 16:33:00 17 /min Cony ey Seybold - External Body height 2022-11-16 16:33:00 157.5 cm Morericardo murraybold - External Body weight 2022-11-16 16:33:00 49.442 kg More Montilla eybold - External BMI 2022-11-16 16:33:00 19.94 kg/m2 Morericardo murraybold - External Oxygen saturation in 2022-11-16 16:33:00 98 /min More Mendes - Arterial blood by External Pulse oximetry Systolic blood 2022-10-04 13:57:00 160 mm[Hg] More Seybold - pressure External Diastolic blood 2022-10-04 13:57:00 84 mm[Hg] Jarrettse y Seybold - pressure External Heart rate 2022-10-04 13:57:00 55 /min More S eybold - External Body temperature 2022-10-04 13:57:00 36.78 Charlette Cony ey Seybold - External Respiratory rate 2022-10-04 13:57:00 16 /min Cony ey Seybold - External Body height 2022-10-04 13:57:00 157.5 cm More S eybold - External Body weight 2022-10-04 13:57:00 45.45 kg More S eybold - External BMI 2022-10-04 13:57:00 18.33 kg/m2 More S eybold - External Oxygen saturation in 2022-10-04 13:57:00 99 /min More Seybold - Arterial blood by External Pulse oximetry Systolic blood 2022-06-16 15:14:00 122 mm[Hg] More Seybold - pressure External Diastolic blood 2022-06-16 15:14:00 70 mm[Hg] Jarrettse y Seybold - pressure External Heart rate 2022-06-16 15:14:00 65 /min More S eybold - External Body temperature 2022-06-16 15:14:00 36.17 Charlette Cony ey Seybold - External Respiratory rate 2022-06-16 15:14:00 14 /min Cony ey Seybold - External Body height 2022-06-16 15:14:00 157.5 cm More S eybold - External Body weight 2022-06-16 15:14:00 44.453 kg More S eybold - External BMI 2022-06-16 15:14:00 17.92 kg/m2 More S eybold - External Systolic blood 2022-05-03 19:05:00 124 mm[Hg] More Seybold - pressure External Diastolic blood 2022-05-03 19:05:00 67 mm[Hg] Kelse y Seybold - pressure External Heart rate 2022-05-03 19:05:00 67 /min More S eybold - External Body temperature 2022-05-03 19:05:00 36.56 Charlette Cony ey Seybold - External Respiratory rate 2022-05-03 19:05:00 14 /min Cony ey Seybold - External Body height 2022-05-03 19:05:00 157.5 cm More S eybold - External Body weight 2022-05-03 19:05:00 46.72 kg More S eybold - External BMI 2022-05-03 19:05:00 18.84 kg/m2 More S eybold - External Oxygen saturation in 2022-05-03 19:05:00 99 /min More Seybold - Arterial blood by External Pulse oximetry Systolic blood 2021-11-16 14:13:00 126 mm[Hg] More [...] Systolic blood 2021-09-14 15:21:00 113 mm[Hg] More Seybjefry pressure Diastolic blood 2021-09-14 15:21:00 62 mm[Hg] Kelse y Seybold pressure Heart rate 2021-09-14 15:21:00 58 /min More Montilla eybostaci Body temperature 2021-09-14 15:21:00 36.39 Charlette Cony ey Seybold Respiratory rate 2021-09-14 15:21:00 14 /min Cony murray Seybold Body height 2021-09-14 15:21:00 157.5 cm More murraybostaci Body weight 2021-09-14 15:21:00 49.261 kg More murraybold BMI 2021-09-14 15:21:00 19.86 kg/m2 More murraybostaci Oxygen saturation in 2021-09-14 15:21:00 99 /min More Mendes Arterial blood by Pulse oximetry Body weight 2023-01-16 13:14:00 51.3 kg [facility] ty [facility] BMI 2023-01-16 13:14:00 21.91 kg/m2 [facility] Body weight 2022-09-12 14:53:00 45.768 kg [facility] BMI 2022-09-12 14:53:00 19.55 kg/m2 [facility] [facility] Systolic blood 2022-09-12 14:53:00 151 mm[Hg] [facility]iver [facility]ity of [facility] Diastolic blood 2022-09-12 14:53:00 87 mm[Hg] Unive rsity of pressure [facility] Heart rate 2022-09-12 14:53:00 60 /min [facility] Body temperature 2022-09-12 14:53:00 36.78 [place] Univ ers[facility] Respiratory rate 2022-09-12 14:53:00 16 /min Univ [facility] Oxygen saturation in 2022-09-12 14:53:00 98 /min [facility] Arterial blood by [facility] Body height 2022-07-31 14:48:36 153 cm [facility] Systolic blood 2022-04-17 14:45:56 120 mm[Hg] Univer [facility]ity of [facility] Diastolic blood 2022-04-17 14:45:56 52 mm[Hg] Unive rsity of pressure [facility] Heart rate 2022-04-17 14:45:56 62 /min [facility] Body temperature 2022-04-17 14:45:56 36.78 [place] Univ [facility] Respiratory rate 2022-04-17 [...] Center Body height 2022-02-07 18:21:00 151 cm [facility] Procedures Procedure Date / Time Performing Clinician Source Performed COMPREHENSIVE METABOLIC 2023-01-09 14:57:33 [facility] PANEL [facility] COMPLETE BLOOD COUNT W/ 2023-01-09 14:57:33 [facility] DIFFERENTIAL [facility] GLUCOSE LEVEL 2023-01-09 14:57:33 Tana aKy [facility] BLOOD UREA NITROGEN 2023-01-09 14:57:33 Tana Kay [facility] ELECTROLYTE PANEL 2023-01-09 14:57:33 Tana Kay [facility] SERUM CREATININE 2023-01-09 14:57:33 Tana Kay [facility] .GLOMERULAR FILTRATION 2023-01-09 14:57:33 Tana Kay [facility] CALCIUM LEVEL TOTAL 2023-01-09 14:57:33 Tana Kay [facility] ALBUMIN LEVEL 2023-01-09 14:57:33 Tana Kay [facility] ALKALINE PHOSPHATASE 2023-01-09 14:57:33 Tana Kay [facility] ALANINE AMINOTRANSFERASE 2023-01-09 14:57:33 [facility] AMINOTRANSFERASE 2023-01-09 14:57:33 Tana Kay [facility] TOTAL PROTEIN 2023-01-09 14:57:33 Tana Kay [facility] FRACTIONATED BILIRUBIN 2023-01-09 14:57:33 Tana Kay [facility] Results CBC 2023-01-09 14:57:33 Tana Kay [facility] MANUAL DIFFERENTIAL 2023-01-09 14:57:33 Tana Kay [facility] CT CHEST W CONTRAST 2022-11-02 15:11:08 Josephine Jacobo [facility] COMPLETE BLOOD COUNT W/ 2022-11-02 14:04:39 Sofy Almendarez [facility] [place] DIFFERENTIAL [facility] COMPREHENSIVE METABOLIC 2022-11-02 14:04:39 Sofy Almendarez [facility] [place] PANEL [facility] FREE THYROXINE 2022-11-02 14:04:39 Sofy Almendarez [facility] THYROID STIMULATING 2022-11-02 14:04:39 Sofy Almnedarez [facility] [place] HORMONE [facility] Results CBC 2022-11-02 14:04:39 Sofy Almendarez [facility] MANUAL DIFFERENTIAL 2022-11-02 14:04:39 Sofy Almendarez [facility] GLUCOSE LEVEL 2022-11-02 14:04:39 Sofy Almendarez [facility] BLOOD UREA NITROGEN 2022-11-02 14:04:39 oSfy Almendarez [facility] ELECTROLYTE PANEL 2022-11-02 14:04:39 Sofy Almendarez [facility] SERUM CREATININE 2022-11-02 14:04:39 Sofy Almendarez [facility] .GLOMERULAR FILTRATION 2022-11-02 14:04:39 Sofy Almendarez [facility] [place] RATE [facility] CALCIUM LEVEL TOTAL 2022-11-02 14:04:39 Sofy Almendarez [facility] ALBUMIN LEVEL 2022-11-02 14:04:39 Sofy Almendarez [facility] ALKALINE PHOSPHATASE 2022-11-02 14:04:39 Sofy Almendarez [facility] ALANINE AMINOTRANSFERASE 2022-11-02 14:04:39 Sofy Almendarez [facility] ASPARTATE AMINOTRANSFERASE 2022-11-02 14:04:39 Sofy Almendarez [facility] TOTAL PROTEIN 2022-11-02 14:04:39 Sofy Almendarez [facility] FRACTIONATED BILIRUBIN 2022-11-02 14:04:39 Sofy Almendarez Un iversity [facility] HEPATIC FUNCTION PANEL 2022-09-12 14:10:00 Sofy [facility]arez [facility] RESEARCH PROTOCOL [id number] 2022-09-12 14:10:00 Sofy Almendarez [facility] ALBUMIN LEVEL 2022-09-12 14:10:00 Sofy Almendarez [facility] ALKALINE PHOSPHATASE 2022-09-12 14:10:00 Sofy [facility] ALANINE AMINOTRANSFERASE 2022-09-12 14:10:00 Sofy Almendarez [facility] ASPARTATE AMINOTRANSFERASE 2022-09-12 14:10:00 Sofy Almendarez [facility] TOTAL PROTEIN 2022-09-12 14:10:00 Sofy Almendarez [facility] FRACTIONATED BILIRUBIN 2022-09-12 14:10:00 Sofy Almendarez iversity [facility] HEPATIC FUNCTION PANEL 2022-08-21 16:43:45 Sofy Almendarez Un iversity [facility] GAMMA GLUTAMYL TRANSFERASE 2022-08-21 16:43:45 Sofy Almendarez [facility] COMPLETE BLOOD COUNT W/ 2022-08-21 16:43:45 Sofy Almendarez [facility] ALBUMIN LEVEL 2022-08-21 16:43:45 Sofy Almendarez [facility] ALKALINE PHOSPHATASE 2022-08-21 16:43:45 Sofy Almendarez [facility] ALANINE AMINOTRANSFERASE 2022-08-21 16:43:45 Sofy Almendarez [facility] ASPARTATE AMINOTRANSFERASE 2022-08-21 16:43:45 Sofy Almendarez [facility] TOTAL PROTEIN 2022-08-21 16:43:45 Sofy Almendarez [facility] FRACTIONATED BILIRUBIN 2022-08-21 16:43:45 Sofy Almendarez [facility] Results CBC 2022-08-21 16:43:45 Sofy Almendarez [facility] MANUAL DIFFERENTIAL 2022-08-21 16:43:45 Sofy Almendarez [facility] rsFoundation [facility] HEPATIC FUNCTION PANEL 2022-08-14 15:21:53 [facility] GAMMA GLUTAMYL TRANSFERASE 2022-08-14 15:21:53 Sofy Almendarez [facility] ALBUMIN LEVEL 2022-08-14 15:21:53 Sofy Almendarez [facility] ALKALINE PHOSPHATASE 2022-08-14 15:21:53 Sofy Almendarez [facility] ALANINE AMINOTRANSFERASE 2022-08-14 15:21:53 Sofy Almendarez [facility] ASPARTATE AMINOTRANSFERASE 2022-08-14 15:21:53 Sofy Almendarez [facility] TOTAL PROTEIN 2022-08-14 15:21:53 Sofy Almendarez [facility] FRACTIONATED BILIRUBIN 2022-08-14 15:21:53 [facility] HSV 1 & 2 QUANTITATIVE, 2022-08-07 15:30:00 [facility]MA [facility] CMV ANTIBODY IGG AND IGM 2022-08-07 15:30:00 Sofy Almendarez [facility] EBV QUANT PCR, PLASMA 2022-08-07 15:30:00 Sofy Almendarez [facility] LYNN GOODRICH VIRUS PANEL 2022-08-07 15:30:00 Sofy Almendarez [facility] PATH REVIEW [facility] CMV ANTIBODY IGG AND IGM 2022-08-07 15:30:00 Sofy Almendarez [facility] PATH REVIEW [facility] BASIC METABOLIC PANEL, 2022-08-07 15:30:00 Sof[facility] CALCIUM TOTAL [facility] HEPATIC FUNCTION PANEL 2022-08-07 15:30:00 Sofy Almendarez [facility] GAMMA GLUTAMYL TRANSFERASE 2022-08-07 15:30:00 Sofy Almendarez [facility] COMPLETE BLOOD COUNT W/ 2022-08-07 15:30:00 Sofy [facility]arez [facility] DIFFERENTIAL [facility] PROTHROMBIN TIME 2022-08-07 15:30:00 [facility] ANTIBODY 2022-08-07 15:30:00 Sofy Almendarez [facility] SERUM [facility] HEPATITIS A ANTIBODY IGG 2022-08-07 15:30:00 Sofy Almendarez [facility] HEPATITIS B SURFACE 2022-08-07 15:30:00 Sofy Almendarez [facility] ANTIGEN, SERUM [facility] HEPATITIS B SURFACE 2022-08-07 15:30:00 Sofy Almendarez [facility] ANTIBODY, SERUM [facility] HEPATITIS B CORE ANTIBODY 2022-08-07 15:30:00 Sofy Almendarez [facility] IGM ACUTE TITER [facility] HEPATITIS B CORE ANTIBODY 2022-08-07 15:30:00 Sofy Almendarez [facility] HBV DNA QUANT 2022-08-07 15:30:00 Sofy Almendarez [facility] HEPATITIS C VIRUS ANTIBODY 2022-08-07 15:30:00 Sofy Almendarez [facility] HEPATITIS C VIRUS RNA 2022-08-07 15:30:00 [facility] DETECT/QUANT, SERUM [facility] HEV IGM ANTIBODY SCREEN, 2022-08-07 15:30:00 Sofy Almendarez [facility] SERUM [facility] HEV IGG ANTIBODY, SERUM 2022-08-07 15:30:00 Sofy Almendarez [facility] HEPATITIS E VIRUS BY 2022-08-07 15:30:00 Sofy Almendarez [facility] QUANTITATIVE PCR [facility] MD Jose Angel wiseman [facility] CMV QUANT PCR 2022-08-07 15:30:00 Sofy Almendarez [facility] LYNN GOODRICH VIRUS PANEL 2022-08-07 15:30:00 Sofy Almendarez [facility] HIV-1/2 ANTIGEN AND 2022-08-07 15:30:00 [facility], [facility] CERULOPLASMIN LVL 2022-08-07 15:30:00 Sofy Almendarez [facility] ALPHA 1 ANTRITRYPSIN, 2022-08-07 15:30:00 Sofy Almendarez [facility] SERUM [facility] ANTINUCLEAR ANTIBODY HEP-2 2022-08-07 15:30:00 Sofy Almendarez [facility] SUBSTRATE IGG [facility] MITOCHONDRIAL ANTIBODIES, 2022-08-07 15:30:00 Sofy Almendarez [facility] M2, SERUM [facility] SMOOTH MUSCLE ANTIBODY 2022-08-07 15:30:00 Sofy Al[facility]endarez [facility] SCREEN [facility] LIVER/KIDNEY MICROSOME 2022-08-07 15:30:00 Sofy Al[facility]endarez [facility] TYPE 1 ANTIBODY, SERUM [facility] IMMUNOGLOBULIN G SERUM 2022-08-07 15:30:00 Sofy Almendarez [facility] IMMUNOGLOBULIN M SERUM 2022-08-07 15:30:00 Sofy Almendarez [facility] IMMUNOGLOBULIN A SERUM 2022-08-07 15:30:00 Sofy Almendarez [facility] TISSUE TRANSGLUTAMINASE 2022-08-07 15:30:00 Sofy [facility]endarez [facility] ANTIBODY, SERUM [facility] IRON LEVEL 2022-08-07 15:30:00 Sofy Almendarez Universit y [facility] TRANSFERRIN 2022-08-07 15:30:00 Sofy Almendarez [facility] FERRITIN LVL 2022-08-07 15:30:00 Sofy Almendarez [facility]it [facility] THYROID STIMULATING 2022-08-07 15:30:00 Sofy Almendarez [facility] HORMONE [facility] GLUCOSE LEVEL 2022-08-07 15:30:00 Sofy Almendarez Universit y [facility] BLOOD UREA NITROGEN 2022-08-07 15:30:00 Sofy Almendarez [facility]ive [facility] ELECTROLYTE PANEL 2022-08-07 15:30:00 Sofy Almendarez ity [facility] SERUM CREATININE 2022-08-07 15:30:00 Sofy Almendarezi ty [facility] .GLOMERULAR FILTRATION 2022-08-07 15:30:00 Sofy Almendarez iversity [facility] CALCIUM LEVEL TOTAL 2022-08-07 15:30:00 Sofy Almendarez Unive rsity [facility] ALBUMIN LEVEL 2022-08-07 15:30:00 Sofy Almendarez Universit y [facility] ALKALINE PHOSPHATASE 2022-08-07 15:30:00 Sofy Almendarez Univ ersity [facility] ALANINE AMINOTRANSFERASE 2022-08-07 15:30:00 Sofy Almendarez [facility] ASPARTATE AMINOTRANSFERASE 2022-08-07 15:30:00 Sofy Almendarez [facility] TOTAL PROTEIN 2022-08-07 15:30:00 Sofy Almendarez [facility] FRACTIONATED BILIRUBIN 2022-08-07 15:30:00 Sofy Almendarez [facility] Results CBC 2022-08-07 15:30:00 Sofy Almendarez [facility] MANUAL DIFFERENTIAL 2022-08-07 15:30:00 [facility] PETCT SUBSEQUENT TREATMENT 2022-08-02 21:42:19 Sofy Almendarez [facility] STRATEGY [facility] OSI CT ABDOMEN AND PELVIS 2022-08-02 20:47:00 Sofy Almendarez [facility] OSI CT BRAIN 2022-08-02 20:47:00 Sofy Almendarez [facility] COMPREHENSIVE METABOLIC 2022-08-02 17:24:34 [facility] COMPLETE BLOOD COUNT W/ 2022-08-02 17:24:34 Sofy Almendarez [facility] DIFFERENTIAL [facility] CREATINE KINASE 2022-08-02 17:24:34 Sofy Almendarez [facility] GAMMA GLUTAMYL TRANSFERASE 2022-08-02 17:24:34 Sofy Almendarez [facility] GLUCOSE LEVEL 2022-08-02 17:24:34 Sofy Almendarez [facility] BLOOD UREA NITROGEN 2022-08-02 17:24:34 Sofy Almendarez [facility] ELECTROLYTE PANEL 2022-08-02 17:24:34 Sofy Almendarez [facility] SERUM CREATININE 2022-08-02 17:24:34 Sofy Almendarez ty [facility] .GLOMERULAR FILTRATION 2022-08-02 17:24:34 [facility] LEV[facility] TOTAL 2022-08-02 17:24:34 Sofy Almendarez rsFoundation [facility] ALBUMIN LEVEL 2022-08-02 17:24:34 Sofy Almendarez [facility] ALKALINE PHOSPHATASE 2022-08-02 17:24:34 Sofy Almendarez ersFoundation [facility] ALANINE AMINOTRANSFERASE 2022-08-02 17:24:34 Sofy Almendarez [facility] ASPARTATE AMINOTRANSFERASE 2022-08-02 17:24:34 Sofy Almendarez [facility] TOTAL PROTEIN 2022-08-02 17:24:34 Sofy Almendarez [facility] FRACTIONATED BILIRUBIN 2022-08-02 17:24:34 Sofy Almendarez [facility] Results CBC 2022-08-02 17:24:34 Sofy Almendarez [facility] MANUAL DIFFERENTIAL 2022-08-02 17:24:34 Sofy Almendareze [facility] XR CHEST 2 VW 2022-06-26 14:58:00 Josephine Jacobo [facility] EXTERNAL IMAGING 2022-06-16 17:20:00 Leodan Barakat Sejai old - External OSI CHEST 2022-06-16 14:58:00 Sofy Almendarez [facility] OSCILLATORY PEP 2022-05-28 14:00:10 Kunal [facility] OSCILLATORY PEP 2022-05-28 02:00:08 Kunal [facility] OSCILLATORY PEP 2022-05-27 14:00:11 Kunal [facility] COMPLETE BLOOD COUNT W/ 2022-05-27 10:03:[address] [facility] BASIC METABOLIC PANEL, 2022-05-27 10:03:00 [facility] CALCIUM TOTAL [facility] MAGNESIUM LEVEL 2022-05-27 10:03:00 Arron [facility] GLUCOSE LEVEL 2022-05-27 10:03:00 Arron [facility] BLOOD UREA NITROGEN 2022-05-27 10:03:00 [facility] 2022-05-27 10:03:00 Arron [facility] SERUM CREATININE 2022-05-27 10:03:00 Arron [facility] .GLOMERULAR FILTRATION 2022-05-27 10:03:00 [facility] RATE [facility] CALCIUM LEVEL TOTAL 2022-05-27 10:03:00 Cady Heller [facility] OSCILLATORY PEP 2022-05-26 20:01:25 Keaton Syed [facility] OSCILLATORY PEP 2022-05-26 14:00:05 Kunal [facility] XR CHEST 2 VW 2022-05-26 13:50:49 Kunal [facility] CALCIUM IONIZED, VENOUS 2022-05-26 11:50:00 Keaton Syed [facility] SODIUM LEVEL 2022-05-26 11:50:00 Keaton Syed [facility] POTASSIUM LEVEL 2022-05-26 11:50:00 Keaton Syed [facility] CHLORIDE LEVEL 2022-05-26 11:50:00 Keaton Syed [facility] CARBON DIOXIDE LEVEL 2022-05-26 11:50:00 Keaton Syed [facility] BLOOD UREA NITROGEN 2022-05-26 11:50:00 Keaton Syed [facility] SERUM CREATININE 2022-05-26 11:50:00 Kunal [facility] GLUCOSE, RANDOM 2022-05-26 11:50:00 Keaton Syed [facility] MAGNESIUM LEVEL 2022-05-26 11:50:00 Kunal [facility] CALCIUM LEVEL TOTAL 2022-05-26 11:50:00 Keaton Syed [facility] PHOSPHORUS LEVEL 2022-05-26 11:50:00 Kunal [facility] COMPLETE BLOOD COUNT W/ 2022-05-26 11:50:00 Keaton Syed [facility] SERUM CREATININE 2022-05-26 11:50:00 Satya [facility] .GLOMERULAR FILTRATION 2022-05-26 11:50:00 Satya [facility] Results CBC 2022-05-26 11:50:00 Satya [facility] MANUAL DIFFERENTIAL 2022-05-26 11:50:00 Satya [facility] ANION GAP 2022-05-26 11:50:00 [facility] OSCILLATORY PEP 2022-05-26 02:46:56 Kunal [facility] SODIUM LEVEL 2022-05-25 17:26:00 Kunal [facility] POTASSIUM LEVEL 2022-05-25 17:26:00 Kunal [facility] CHLORIDE LEVEL 2022-05-25 17:26:00 Kunal [facility] CARBON DIOXIDE LEVEL 2022-05-25 17:26:[address] [facility] BLOOD UREA NITROGEN 2022-05-25 17:26:00 Keaton Syed [facility] SERUM CREATININE 2022-05-25 17:26:00 Kunal [facility] GLUCOSE, RANDOM 2022-05-25 17:26:00 Kunal [facility] MAGNESIUM LEVEL 2022-05-25 17:26:00 Kunal [facility] CALCIUM LEVEL TOTAL 2022-05-25 17:26:00 Keaton Syed [facility] CALCIUM IONIZED, VENOUS 2022-05-25 17:26:00 Kunal [facility] PHOSPHORUS LEVEL 2022-05-25 17:26:00 Kunal [facility] COMPLETE BLOOD COUNT W/ 2022-05-25 17:26:00 Kunal [facility] DIFFERENTIAL [facility] SERUM CREATININE 2022-05-25 17:26:00 Satya [facility] .GLOMERULAR FILTRATION 2022-05-25 17:26:00 Warren Hernadez [facility] RATE [facility] Results CBC 2022-05-25 17:26:00 Satya Warren [facility] MANUAL DIFFERENTIAL 2022-05-25 17:26:00 Satya Warren [facility] ANION GAP 2022-05-25 17:26:00 Satya [facility] XR CHEST 1 VW 2022-05-25 16:56:06 Kunal [facility] PATHOLOGY SURGICAL 2022-05-25 14:21:[address] [facility] INTERPRETATION [facility] ROBOTIC (RATS) LOBECTOMY 2022-05-25 12:27:00 Warren Hernadez [facility] ROBOTIC (RATS) MEDIASTINAL 2022-05-25 12:27:00 Warren Hernadez [facility] LYMPHADENECTOMY [facility] COMPLETE BLOOD COUNT W/ 2022-05-23 15:58:50 Josephine Jacobo [facility] DIFFERENTIAL [facility] COMPREHENSIVE METABOLIC 2022-05-23 15:58:50 Odalis, [facility] PANEL [facility] FREE THYROXINE 2022-05-23 15:58:50 Odalsi [facility] FERRITIN LVL 2022-05-23 15:58:50 Odalis [facility] HEMOGLOBIN A1C 2022-05-23 15:58:50 Odalis [facility] IRON LEVEL 2022-05-23 15:58:50 Odalis [facility] PROTHROMBIN TIME 2022-05-23 15:58:50 Odalis [facility] APTT 2022-05-23 15:58:50 Odalis [facility] TYPE AND SCREEN 2022-05-23 15:58:50 Odalis [facility] TRANSFERRIN 2022-05-23 15:58:50 Odalis [facility] Results CBC 2022-05-23 15:58:50 Odalis [facility] MANUAL DIFFERENTIAL 2022-05-23 15:58:50 Odalis [facility] GLUCOSE LEVEL 2022-05-23 15:58:50 Odalis [facility] BLOOD UREA NITROGEN 2022-05-23 15:58:50 Odalis [facility] ELECTROLYTE PANEL 2022-05-23 15:58:50 Odalis [facility] SERUM CREATININE 2022-05-23 15:58:50 Odalis [facility] .GLOMERULAR FILTRATION 2022-05-23 15:58:50 Melissa Jacoboberly [facility] RATE [facility] CALCIUM LEVEL TOTAL 2022-05-23 15:58:50 Odalis [facility] ALBUMIN LEVEL 2022-05-23 15:58:50 Odalis [facility] ALKALINE PHOSPHATASE 2022-05-23 15:58:50 Odalis [facility] ALANINE AMINOTRANSFERASE 2022-05-23 15:58:50 Josephine Jacobo [facility] ASPARTATE AMINOTRANSFERASE 2022-05-23 15:58:50 Josephine Jacobo [facility] TOTAL PROTEIN 2022-05-23 15:58:50 Odalis [facility] FRACTIONATED BILIRUBIN 2022-05-23 15:58:50 Odalis [facility] ABORH 2022-05-23 15:58:50 Odalis [facility] ANTIBODY SCREEN 2022-05-23 15:58:50 Odalis [facility] CLOT EXPIRATION DATE 2022-05-23 15:58:50 Odalis [facility] TMP INTERPRETATION 2022-05-23 15:58:50 Odalis [facility] ANTIBODY SCREEN NEGATIVE MD [facility] TMP CROSSMATCH 2022-05-23 15:58:50 Odalis [facility] INTERPRETATION [facility] CONFIRM ABORH TYPE 2022-05-23 15:56:00 Odalis [facility] COVID-19 (SARS-COV-2) 2022-05-23 15:45:00 Warren Hernadez [facility] PCR-ASYMPTOMATIC [facility] COMPREHENSIVE METABOLIC 2022-05-09 15:15:00 [facility] COMPLETE BLOOD COUNT W/ 2022-05-09 15:15:00 [facility] DIFFERENTIAL [facility] THYROID STIMULATING 2022-05-09 15:15:00 Sofy Almendarez [facility] HORMONE [facility] FREE THYROXINE 2022-05-09 15:15:00 Sofy Almendarez y [facility] PHOSPHORUS LEVEL 2022-05-09 15:15:00 Sofy Almendarez Universi ty [facility] MAGNESIUM LEVEL 2022-05-09 15:15:00 Sofy Almendarez y [facility] GLUCOSE LEVEL 2022-05-09 15:15:00 Sofy Almendarez Universit y [facility] BLOOD UREA NITROGEN 2022-05-09 15:15:00 Sofy Almendarez rsFoundation [facility] ELECTROLYTE PANEL 2022-05-09 15:15:00 Sofy Almendarezy [facility] SERUM CREATININE 2022-05-09 15:15:00 Sofy Almendarez [facility] .GLOMERULAR FILTRATION 2022-05-09 15:15:00 Sofy Almendarez iversity [facility] CALCIUM LEVEL TOTAL 2022-05-09 15:15:00 Sofy Almendarez [facility] ALBUMIN LEVEL 2022-05-09 15:15:00 Sofy Almendarez [facility] y [facility] ALKALINE PHOSPHATASE 2022-05-09 15:15:00 Sofy [facility]arez [facility] ALANINE AMINOTRANSFERASE 2022-05-09 15:15:00 Sofy Almendarez [facility] ASPARTATE AMINOTRANSFERASE 2022-05-09 15:15:00 Sofy Almendarez [facility] TOTAL PROTEIN 2022-05-09 15:15:00 Sofy Almendarez Universcatarino y [facility] FRACTIONATED BILIRUBIN 2022-05-09 15:15:00 Sofy Almendarez iversanais [facility] Results CBC 2022-05-09 15:15:00 Sofy Almendarez Universcatarino y [facility] MANUAL DIFFERENTIAL 2022-05-09 15:15:00 Sofy Almendarez rsity of [facility] COMPLETE BLOOD COUNT W/ 2022-04-17 13:15:59 Sof[facility] [place] DIFFERENTIAL [facility] COMPREHENSIVE METABOLIC 2022-04-17 13:15:59 Sofy [facility]arez [facility] [place] PANEL [facility] PHOSPHORUS LEVEL 2022-04-17 13:15:59 Sofy Almendarez [facility]i ty [facility] MAGNESIUM LEVEL 2022-04-17 13:15:59 Sofy Almendarez [facility]it y [facility] Results CBC 2022-04-17 13:15:59 Sofy Almendarez [facility] MANUAL DIFFERENTIAL 2022-04-17 13:15:59 Sofy Almendarez Unive rsity of [facility] GLUCOSE LEVEL 2022-04-17 13:15:59 Sofy Almendarez [facility] BLOOD UREA NITROGEN 2022-04-17 13:15:59 Sofy Almendarez Unive rsity of [facility] ELECTROLYTE PANEL 2022-04-17 13:15:59 Sofy Almendarez Univers ity [facility] SERUM CREATININE 2022-04-17 13:15:59 Sofy Almendarez [facility] ty [facility] .GLOMERULAR FILTRATION 2022-04-17 13:15:59 Sofy Almendarez [facility] [place] RATE [facility] CALCIUM LEVEL TOTAL 2022-04-17 13:15:59 Sofy Almendarez Unive rsity of [facility] ALBUMIN LEVEL 2022-04-17 13:15:59 Sofy Almendarez [facility] ALKALINE PHOSPHATASE 2022-04-17 13:15:59 Sofy Almendarez Univ ersity of [facility] ALANINE AMINOTRANSFERASE 2022-04-17 13:15:59 Sofy Almendarez [facility] ASPARTATE AMINOTRANSFERASE 2022-04-17 13:15:59 Sofy Almendarez [facility] TOTAL PROTEIN 2022-04-17 13:15:59 Sofy Almendarez E [facility] Alliance[facility] y [facility] [place] FRACTIONATED BILIRUBIN 2022-04-17 13:15:59 Sofy Almendarez E Un [facility] COMPREHENSIVE METABOLIC 2022-04-10 15:38:00 [facility] COMPLETE BLOOD COUNT W/ 2022-04-10 15:38:00 [facility] DI[facility] Dai HO [facility] MAGNESIUM LEVEL 2022-04-10 15:38:00 Salvador [facility] Dai HO [facility] PHOSPHORUS LEVEL 2022-04-10 15:38:00 [facility] THYROID STIMULATING 2022-04-10 15:38:00 [facility] FREE THYROXINE 2022-04-10 15:38:00 [facility] Dai HO [facility] GLUCOSE LEVEL 2022-04-10 15:38:00 Salvador [facility] Dai HO [facility] BLOOD UREA NITROGEN 2022-04-10 15:38:00 [facility] ELECTROLYTE PANEL 2022-04-10 15:38:00 Salvador Philip [facility] Dai HO [facility] SERUM CREATININE 2022-04-10 15:38:00 Salvador Philip [facility] Dai HO [facility] .GLOMERULAR FILTRATION 2022-04-10 15:38:00 Salvador Philip [facility] RATE Dai HO [facility] CALCIUM LEVEL TOTAL 2022-04-10 15:38:00 [facility] D[facility] Center ALBUMIN LEVEL 2022-04-10 15:38:00 Salvador [facility] Dai HO [facility] er Center ALKALINE PHOSPHATASE 2022-04-10 15:38:00 Salvador Philip [facility] Dai HO [facility] er Center ALANINE AMINOTRANSFERASE 2022-04-10 15:38:00 Lilia Crouch [facility] Dai HO [facility] [place] ASPARTATE AMINOTRANSFERASE 2022-04-10 15:38:00 Salvador Philip [facility] Dai HO [facility] [place] TOTAL PROTEIN 2022-04-10 15:38:00 [facility] [place] Dai HO [facility] [place] FRACTIONATED BILIRUBIN 2022-04-10 15:38:00 Salvador Philip [facility] Dai HO [facility] Results CBC 2022-04-10 15:38:00 Salvador Philip [place] Dai HO [facility] er Center MANUAL DIFFERENTIAL 2022-04-10 15:38:00 Salvador Philip [facility] Dai HO [facility] CT CHEST WO CONTRAST 2022-04-07 14:08:21 Yu Elmore [facility] 6 MINUTE WALK TEST 2022-03-20 15:53:15 Tammy Giraldo [facility] COMPREHENSIVE METABOLIC 2022-03-20 12:01:00 [facility] COMPLETE BLOOD COUNT W/ 2022-03-20 12:01:00 [facility] DIFFERENTIAL Dai HO [facility] MAGNESIUM LEVEL 2022-03-20 12:01:00 Salvador [facility] Dai HO [facility] er Center PHOSPHORUS LEVEL 2022-03-20 12:01:00 Salvador Philip [facility] Dai HO [facility] er Center GLUCOSE LEVEL 2022-03-20 12:01:00 [facility] Dai HO [facility] er Center BLOOD UREA NITROGEN 2022-03-20 12:01:00 Salvador Philip [facility] Dai HO [facility] ELECTROLYTE PANEL 2022-03-20 12:01:00 Salvador Philip [facility] Dai HO [facility] SERUM CREATININE 2022-03-20 12:01:00 Salvador Philip [facility] Dai HO [facility] .GLOMERULAR FILTRATION 2022-03-20 12:01:00 Salvador Philip [facility] RATE Dai HO [facility] CALCIUM LEVEL TOTAL 2022-03-20 12:01:00 Salvador Philip [facility] Dai HO [facility] ALBUMIN LEVEL 2022-03-20 12:01:00 Salvador Philip [place] [facility] Dai HO [facility] ALKALINE PHOSPHATASE 2022-03-20 12:01:00 Salvador Philip [facility] Dai HO [facility] ALANINE AMINOTRANSFERASE 2022-03-20 12:01:00 Salvador Philip [facility] Dai HO [facility] ASPARTATE AMINOTRANSFERASE 2022-03-20 12:01:00 [facility] TOTAL PROTEIN 2022-03-20 12:01:00 Salvador [facility] Dai HO [facility] FRACTIONATED BILIRUBIN 2022-03-20 12:01:00 Salvador Philip [facility] Dai HO [facility] Results CBC 2022-03-20 12:01:00 [facility] Dai HO [facility] MANUAL DIFFERENTIAL 2022-03-20 12:01:00 Salvador Philip [facility] Dai HO [facility] COMPREHENSIVE METABOLIC 2022-02-27 13:30:00 Salvador Philip [facility] PANEL Dai HO [facility] COMPLETE BLOOD COUNT W/ 2022-02-27 13:30:00 Salvador Philip [facility] DIFFERENTIAL Dai HO [facility] MAGNESIUM LEVEL 2022-02-27 13:30:00 [facility] D[facility] [place] PHOSPHORUS LEVEL 2022-02-27 13:30:00 Salvador Philip [facility] Dai HO [facility] THYROID STIMULATING 2022-02-27 13:30:00 [facility] HORMONE Dai HO [facility] FREE THYROXINE 2022-02-27 13:30:00 [facility] GLUCOSE LEVEL 2022-02-27 13:30:00 [facility] D[facility] BLOOD UREA NITROGEN 2022-02-27 13:30:00 [facility] ELECTROLYTE PANEL 2022-02-27 13:30:00 Salvador Philip [facility] Dai HO [facility] SERUM CREATININE 2022-02-27 13:30:00 [facility] .GLOMERULAR FILTRATION 2022-02-27 13:30:00 Salvador Philip [facility] FAITH Sheets MD [facility] CALCIUM LEVEL TOTAL 2022-02-27 13:30:00 [facility] D[facility] ALBUMIN LEVEL 2022-02-27 13:30:00 [facility] D[facility] HO [facility] ALKALINE PHOSPHATASE 2022-02-27 13:30:00 [facility] ALANINE AMINOTRANSFERASE 2022-02-27 13:30:00 Salvador Philip [facility] Dai HO [facility] ASPARTATE AMINOTRANSFERASE 2022-02-27 13:30:00 Salvador Philip [facility] Dai HO [facility] TOTAL PROTEIN 2022-02-27 13:30:00 [facility] D[facility] HO [facility] FRACTIONATED BILIRUBIN 2022-02-27 13:30:00 Salvador Philip [facility] Dai HO [facility] Results CBC 2022-02-27 13:30:00 [facility] Dai HO [facility] MANUAL DIFFERENTIAL 2022-02-27 13:30:00 [facility] D[facility] COVID-19 (SARS-COV-2) 2022-02-11 20:11:00 Salvador Philip [facility] PCR-ASYMPTOMATIC JUAN MIGUEL Sheets MD [facility] PETCT SUBSEQUENT TREATMENT 2022-02-07 20:05:40 Salvador [facility] STRATEGY Dai HO [facility] MRI BRAIN W WO CONTRAST 2022-02-04 15:41:00 [facility] SPIROMETRY W/DILATORS, 2022-02-03 19:30:48 Salvador Philip [facility] DLCO AND BODY Dai HO [facility] PLETHSMOGRAPHIC LUNG Center VOLUMES APTT 2022-02-03 18:10:00 Salvador [facility] Dai HO [facility] PROTHROMBIN TIME 2022-02-03 18:10:00 [facility] COMPLETE BLOOD COUNT W/ 2022-02-03 18:10:00 [facility] DI[facility]ENTIAL Dai HO [facility] COMPREHENSIVE METABOLIC 2022-02-03 18:10:00 [facility] PANEL Dai HO [facility] CORTISOL 2022-02-03 18:10:00 Salvador [facility] Dai HO [facility] THYROID STIMULATING 2022-02-03 18:10:00 Salvador Philip [facility] HORMONE Dai HO [facility] HEPATITIS B SURFACE 2022-02-03 18:10:00 [facility] ANTIGEN, SERUM Dai HO [facility] HEPATITIS C VIRUS ANTIBODY 2022-02-03 18:10:00 Salvador Philip [facility] Dai HO [facility] AMYLASE LEVEL 2022-02-03 18:10:00 Salvador [facility] Dai HO [facility] LIPASE LEVEL 2022-02-03 18:10:00 Salvador [facility] Dai HO [facility] GAMMA GLUTAMYL TRANSFERASE 2022-02-03 18:10:00 Salvador Philip [facility] Dai HO [facility] LACTATE DEHYDROGENASE 2022-02-03 18:10:00 Salvador Philip [facility] Dai HO [facility] MAGNESIUM LEVEL 2022-02-03 18:10:00 [facility] URINALYSIS WITH 2022-02-03 18:10:00 Salvador [facility] MICROSCOPIC IF INDICATED Dai HO [facility] Results CBC 2022-02-03 18:10:00 [facility] D[facility] MANUAL DIFFERENTIAL 2022-02-03 18:10:00 [facility] Dai HO [facility] GLUCOSE LEVEL 2022-02-03 18:10:00 Salvador [facility] Dai HO [facility] BLOOD UREA NITROGEN 2022-02-03 18:10:00 Salvador Philip [facility] Dai HO [facility] ELECTROLYTE PANEL 2022-02-03 18:10:00 [facility] D[facility] SERUM CREATININE 2022-02-03 18:10:00 [facility] D[facility] HO [facility] .GLOMERULAR FILTRATION 2022-02-03 18:10:00 Salvador Philip [facility] FAITH Sheets MD [facility] CALCIUM LEVEL TOTAL 2022-02-03 18:10:00 Salvador Philip, [facility] Dai HO [facility] ALBUMIN LEVEL 2022-02-03 18:10:00 [facility] Dai HO [facility] ALKALINE PHOSPHATASE 2022-02-03 18:10:00 [facility] D[facility] ALANINE AMINOTRANSFERASE 2022-02-03 18:10:00 Salvador Philip, [facility] ASPARTATE AMINOTRANSFERASE 2022-02-03 18:10:00 Salvador Philip, [facility] TOTAL PROTEIN 2022-02-03 18:10:00 Salvador [facility] Dai [facility] FRACTIONATED BILIRUBIN 2022-02-03 18:10:00 [facility] D[facility] URINALYSIS MICROSCOPIC 2022-02-03 18:10:00 [facility] Healthcare[facility] EKG, 12-LEAD (SCHEDULED) 2022-02-03 00:00:00 Salvador [facility] TISSUE SLIDES MATERIAL 2022-01-29 17:43:11 [facility] AP FISH ALK MATERIAL 2022-01-22 23:11:00 Salvador Philip [facility] REQUEST Dai [facility] AP FISH ROS1 MATERIAL 2022-01-22 23:11:00 Salvador Philip [facility] REQUEST Dai HO [facility] CT VENOGRAM BRAIN 2022-01-04 19:03:00 Sofy Almendarez E [facility] MRI BRAIN W WO CONTRAST 2022-01-03 15:40:00 Sofy Almendarez E U [facility] HP MDA LOR MUTATION 2022-01-03 15:20:00 Sofy Almendarez [facility] ANALYSIS PRECISION PANEL MD [facility] HP SOLID TUMOR GENOMIC 2022-01-03 15:20:00 Sofy Almendarez [facility] ASSAY FUSIONS 2018 MD Ram[facility]rez [facility]ondon[facility] INTERPRETATION AND REPORT Center HP LB ROS1 FUSION ANALYSIS 2021-12-27 17:21:00 Sofy Almendarez [facility] COLLECTION, BLOOD [facility] HP LB RET FUSION ANALYSIS 2021-12-27 17:21:00 Sofy Almendarez [facility] COLLECTION, BLOOD [facility] HP LB MET MUTATION 2021-12-27 17:21:00 Sofy Almendarez [facility] ANALYSIS COLLECTION, BLOOD MD Nelson [facility] HP LB ERBB2 FULL GENE 2021-12-27 17:21:00 [facility] MUTATION ANALYSIS [facility] COLLECTION, BLOOD Center HP LB EML4/ALK FUSION 2021-12-27 17:21:00 Sof[facility] ANALYSIS COLLECTION, BLOOD MD Nelson [facility] HP LB BRAF MUTATION 2021-12-27 17:21:00 Sofy Almendarez [facility] ANALYSIS COLLECTION, BLOOD [facility] NGS BLOOD CONTROL 2021-12-27 17:21:00 Sofy Almendarez [facility] er Center HP LB LIQUID BIOPSY PANEL 2021-12-27 17:21:00 Sofy Almendarez [facility] V1 INTERPRETATION AND MD Jose [facility] AP IHC PD-L1 MATERIAL 2021-12-27 16:44:06 [address] [facility] [place] REQUEST [facility] er Center AP ROS1 FUSION ANALYSIS 2021-12-27 16:44:06 Sofy Almendarez [facility] MATERIAL REQUEST [facility] AP RET FUSION ANALYSIS 2021-12-27 16:44:06 Sofy Almendarez [facility] MATERIAL REQUEST [facility] AP NTRK3 FUSION 2021-12-27 16:44:06 Sofy Almendarez [facility] ANALYSIS MATERIAL REQUEST MD [facility] [place] AP NTRK2 FUSION 2021-12-27 16:44:06 Sofy Almendarez [facility] ANALYSIS MATERIAL REQUEST And [facility] AP NTRK1 FUSION 2021-12-27 16:44:06 Sofy Almendarez [facility] ANALYSIS MATERIAL REQUEST MD [facility] AP KRAS MUTATION 2021-12-27 16:44:06 Sofy Almendarez [facility] MATERIAL REQUEST [facility] AP EML4/ALK FUSION 2021-12-27 16:44:06 [facility] ANALYSIS MATERIAL REQUEST And [facility] AP BRAF V600 E MUTATION 2021-12-27 16:44:06 Sofy Almendarez [facility] MATERIAL REQUEST [facility] CYTOLOGY IMAGE-GUIDED FNA 2021-12-21 18:05:00 Kaylie Mota [facility] INTERPRETATION [facility] BRONCHOSCOPY WITH EBUS 3 2021-12-21 17:21:00 Kaylie Mota Uni [facility] OR MORE NODES [facility] MD COVID-19 (SARS-COV-2) 2021-12-20 18:44:00 [facility] PCR ASYMPTOMATIC [facility] XR CHEST 2 VW 2021-12-09 16:37:52 Jose Abernathy [facility] IR CHEST XRAY 1 VIEW 30 2021-12-02 19:53:15 [facility] IR CHEST XRAY 1 VIEW 30 2021-12-02 16:48:48 [facility] IR CT GUIDED BIOPSY 2021-12-02 16:40:35 Jose Abernathy [facility] LUNG/MEDIASTINAL [facility] PATHOLOGY BIOPSY 2021-12-02 16:15:00 Jose Abernathy [facility] INTERPRETATION [facility] SPIROMETRY W/DILATORS, 2021-12-01 19:27:05 Jose Abernathy [facility] DLCO AND BODY [facility] PLETHSMOGRAPHIC LUNG Center VOLUMES COVID-19 (SARS-COV-2) 2021-12-01 15:36:00 Jose Abernathy [facility] PCR-ASYMPTOMATIC [facility] EKG, 12-LEAD (SCHEDULED) 2021-12-01 00:00:00 Jose Abernathy [facility] CRYPTOCOCCAL ANTIGEN, 2021-11-29 23:01:00 Jose Abernathy [facility] SERUM [facility] CRYPTOCOCCAL ANTIGEN, 2021-11-29 23:01:00 Jose Abernathy [facility] SERUM PATH REVIEW [facility] COMPREHENSIVE METABOLIC 2021-11-29 23:01:00 Jose Abernathy [facility] PANEL [facility] COMPLETE BLOOD COUNT W/ 2021-11-29 23:01:00 Jose Abernathy [facility] DIFFERENTIAL [facility] PROTHROMBIN TIME 2021-11-29 23:01:00 Jose Abernathy [facility] APTT 2021-11-29 23:01:00 Jose Abernathy [facility] HEPATITIS B SURFACE 2021-11-29 23:01:00 Jose Abernathy [facility] ANTIGEN, SERUM [facility] HEPATITIS B CORE ANTIBODY 2021-11-29 23:01:00 Jose [facility] HEPATITIS C VIRUS ANTIBODY 2021-11-29 23:01:00 Jose Abernathy [facility] THYROID STIMULATING 2021-11-29 23:01:00 Jose Abernathy [facility] HORMONE [facility] COCCIDIOIDES ANTIBODY 2021-11-29 23:01:00 Jose Abernathy [facility] HISTOPLASMA ANTIBODY 2021-11-29 23:01:00 Jose Abernathy [facility] SCREEN, SERUM [facility] T-SPOT TUBERCULOSIS 2021-11-29 23:01:00 Jose Abernathy [facility] GLUCOSE LEVEL 2021-11-29 23:01:00 Jose Abernathy [facility] BLOOD UREA NITROGEN 2021-11-29 23:01:00 Jose Abernathy [facility] ELECTROLYTE PANEL 2021-11-29 23:01:00 Jose Abernathy [facility] SERUM CREATININE 2021-11-29 23:01:00 Jose Abernathy [facility] .GLOMERULAR FILTRATION 2021-11-29 23:01:00 Jose Abernathy [facility] CALCIUM LEVEL TOTAL 2021-11-29 23:01:00 Jose Abernathy [facility] ALBUMIN LEVEL 2021-11-29 23:01:00 Jose Abernathy [facility] ALKALINE PHOSPHATASE 2021-11-29 23:01:00 Jose Abernathy [facility] ALANINE AMINOTRANSFERASE 2021-11-29 23:01:00 Jose Aber[facility] ASPARTATE AMINOTRANSFERASE 2021-11-29 23:01:00 Jose Abernathy [facility] TOTAL PROTEIN 2021-11-29 23:01:00 Jose Abernathy [facility] FRACTIONATED BILIRUBIN 2021-11-29 23:01:00 Jose Abernathy [facility] Results CBC 2021-11-29 23:01:00 Jose Abernathy [facility] MANUAL DIFFERENTIAL 2021-11-29 23:01:00 Jose Abernathy [facility] OSI PET CT SKULL TO MID 2021-11-29 04:06:00 Clay Ahumada [facility] OSI CT CHEST 2021-11-16 07:06:00 Clay Ahumada [facility] OSI BONE DENSITY STUDY 2021-10-28 07:06:00 Clay Ahumada [facility] Plan of Care Planned Activity Planned Date Details Comments Source Future Scheduled 2023-01-18 COVID-19 Vaccination [facility] Test 09:55:11 (#1) [code = COVID-19 [facility] Center Future Scheduled 2022-09-29 COVID-19 Vaccination [facility] Test 10:25:41 (#1) [code = COVID-19 [facility] (#1)] Center Future Scheduled 2022-04-21 COVID-19 Vaccination [facility] Test 11:50:08 (#1) [code = COVID-19 [facility] (#1)] Center Future Scheduled 2022-03-03 COVID-19 Vaccination [facility] Test 07:21:24 (#1) [code = COVID-19 [facility] (#1)] Center Encounters Start End Encounter Admission Attending Care Care Encounter Source Date/Time Date/Time Type Type Clinicians Facility Department ID 2022-08-08 Outpatient SYSTEM, [facility] [id number] 11:08:18 PROVIDER Darryl o n 2022-06-21 Outpatient SYSTEM, [facility] [id number] 12:09:14 PROVIDER Darryl o n 2022-05-17 Outpatient SYSTEM, [facility] [id number] 10:45:58 PROVIDER Darryl o n 2021-11-21 Outpatient SYSTEM, [facility] [id number] 15:33:59 PROVIDER Darryl o n 2023-01-19 2023-01-19 Outpatient MORE BARAKAT [id number] More 00:00:00 00:00:00 LEODAN pollard 2023-01-17 2023-01-17 Outpatient LAB90 MORE FLOWERS [id number] More 09:05:00 09:05:00 [place] pollard 2023-01-16 2023-01-16 Outpatient MORE BARAKAT [id number] More 14:30:00 14:30:00 LEODAN Gallowayol rufus 2023-01-16 2023-01-16 Nandini Gillis 1.2.840.1 [id number] Univers 08:15:00 10:00:00 Procedure Sally Vaughn 93811.1.1 ity of 3.412.2.7 [place] .3.398574 [facility] 2023-01-16 2023-01-16 Outpatient KINDRA GILLIS MDA MDA [id number] 07:57:31 07:57:31 SALLY wiseman 2023-01-16 2023-01-16 Travel 1.2.840.1 1.2.891.447 1097 [id number] [place] [facility] 00:00:00 00:00:00 42005.1.1 350.1.13.41 ity of 3.412.2.7 [place].3.698 [place] 084.8 MD Mccurdy [facility] 2023-01-15 2023-01-15 Outpatient KINDRA KAY MDA MDA [id number] 14:27:36 14:27:36 TANA wis[place] 2023-01-12 2023-01-12 Telemedicteodoro Kay, 1.2.840.1 [id number] Univers 08:00:00 08:30:00 leidy Montenegro 11523.1.1 ity of 3.412.2.7 [place] .3.754738 MD Mccurdy [facility] 2023-01-10 2023-01-10 Telephone Avis, 1.2.840.1 [id number] [id number] Univers 00:00:00 00:00:00 Bruna Flores 24067.1.1 ity of 3.412.2.7 [place] .3.081072 MD Mccurdy [facility] 2023-01-09 2023-01-09 Outpatient KINDRA KAY [facility] MDA [id number] 09:51:12 09:58:38 TANA wis[place] 2023-01-09 2023-01-09 Travel 1.2.840.1 1.2.125.346 3459 [id number] Univers 00:00:00 00:00:00 04276.1.1 350.1.13.41 ity of 3.412.2.[place].3.698 [place] 084.8 .8 [facility] 2022-12-28 2022-12-28 Telephone Noemí [facility] 1.2.420.945 1501 [id number] Univers 00:00:00 00:00:00 Nathanael TEJADA 350.1.13.10 i [id number] [place] dical NAL [address] [place] [address] 2022-12-27 2022-12-27 Outpatient MORE BARAKAT [id number] More 00:00:00 00:00:00 LEODAN pollard 2022-12-27 2022-12-27 Outpatient MORE BARAKAT [id number] More 00:00:00 00:00:00 LEODAN pollard 2022-12-08 2022-12-08 Outpatient R NATHANAEL THOMPSON [facility] 10 [id number] Univers 10:30:00 14:17:28 NATHANAEL THOMPSON i ty of [facility] 2022-12-08 2022-12-08 Office Noemí [facility] 1.2.840.114 [id number] Univers 10:30:00 11:00:00 Visit Nathanael TEJADA 350.1.13.10 i [place] [id number] Wa dickayden NAL [address] [place] [address] 2022-11-27 2022-11-27 Outpatient MORE BARAKAT [id number] More 00:00:00 00:00:00 LEODAN pollard 2022-11-20 2022-11-20 [facility] Jung White 1.2.840.1 [id number] Univers 15:20:00 23:59:00 Encounter 82963.1.1 it y of 3.412.2.7 [place] .3.406682 .8 Jose Angel [facility] 2022-11-20 2022-11-20 Outpatient JUNG WHITE [facility] MDA [id number] 15:20:00 23:59:00 Darryl wiseman 2022-11-16 2022-11-16 Outpatient MORE CARTER MORE [id number] More 11:45:00 11:45:00 HECTOR pollard 2022-11-11 2022-11-11 Evin Momo Jung 1.2.840.1 [id number] Univers 00:00:00 00:00:00 50714.1.1 ity of 3.412.2.7 [place] .3.870154 MD Lott8 [facility] 2022-11-09 2022-11-09 Joanna Ross 1.2.840.1 [id number] 11 [id number] Univers 00:00:00 00:00:00 Only 51306.1.1 ity of 3.412.2.7 [place] .3.233390 MD Lott8 [facility] 2022-11-08 2022-11-08 Piedad Gillis 1.2.840.1 [id number] Univers 00:00:00 00:00:00 Only Sally Vaughn 05281.1.1 i ty of 3.412.2.7 [place] .3.325168 MD Lott8 [facility] 2022-11-06 2022-11-06 Outpatient EL SALVADOR MDA MDA [id number] MD 13:16:03 13:18:38 Darryl PHILIP 2022-11-06 2022-11-06 Telemedici Salvador 1.2.840.1 [id number] Univers 10:00:00 13:18:38 leidy Philip 23201.1.1 ity of Dai 3.412.2.7 [place] .3.551950 MD Lott8 [facility] 2022-11-02 2022-11-02 Nandini Jacobo 1.2.840.1 [id number] [id number] Univers 09:55:00 11:20:00 Procedure Josephine 68908.1.1 i ty of 3.412.2.7 [place] .3.516543 MD Lott8 [facility] 2022-11-02 2022-11-02 Outpatient KINDRA JACOBO [facility] MDA [id number] MD 09:06:45 09:06:45 JOSEPHINE Ruelas lisette n 2022-11-02 2022-11-02 Outpatient KINDRA ALMENDAREZ MDA MDA [id number] MD 08:54:07 09:04:50 SOFY wayo n 2022-11-02 2022-11-02 Travel 1.2.840.1 1.2.262.664 [id number] Univers 00:00:00 00:00:00 08510.1.1 350.1.13.41 ity of 3.412.2.[place]7.3.698 [place].4460[place] 084.8 MD Lott8 [facility] 2022-10-31 2022-10-31 Outpatient MORE BARAKAT [id number] More 00:00:00 00:00:00 LEODAN pollard 2022-10-25 2022-10-25 Piedad Gillis 1.2.840.1 [id number] [id number] Univers 00:00:00 00:00:00 Only Sally Vaughn 23094.1.1 i ty of 3.412.2.7 [place] .3.311736 MD Mccurdy [facility] 2022-10-24 2022-10-24 Evin Gillis 1.2.840.1 [id number] Univers 00:00:00 00:00:00 Sally Vaughn 69963.1.1 i ty of 3.412.2.7 [place] .3.440511 MD Mccurdy [facility] 2022-10-11 2022-10-11 Outpatient MORE BARAKAT [id number] More 00:00:00 00:00:00 LEODAN pollard 2022-10-07 2022-10-07 Jung Ballesteros 1.2.840.1 [id number] Univers 00:00:00 00:00:00 99438.1.1 ity of 3.412.2.7 [place] .3.577697 MD Mccurdy [facility] 2022-10-04 2022-10-04 Outpatient YUVAL MORE FLOWERS [id number] More 09:00:00 09:00:00 LEODAN jaiol rufus 2022-10-02 2022-10-02 Outpatient YUVAL MORE FLOWERS [id number] More 00:00:00 00:00:00 LEODAN Gallowayol rufus 2022-09-29 2022-09-29 Telephone Tanesha, 1.2.840.1 [id number] [id number] [facility] 00:00:00 00:00:00 Sofy Brizuela 91564.1.1 ity of 3.412.2.7 [place] .3.760758 MD Lott8 [facility] 2022-09-29 2022-09-29 Telephone Smolensky, 1.2.840.1 [id number] 1 [id number] Univers 00:00:00 00:00:00 Lilian 61573.1.1 ity of 3.412.2.7 [place] .3.312014 MD Lott8 [facility] 2022-09-29 2022-09-29 Telephone Smolensky, 1.2.840.1 [id number] 1 [id number] Univers 00:00:00 00:00:00 Lilian 61682.1.1 ity of 3.412.2.7 [place] .3.375600 MD Lott8 [facility] 2022-09-22 2022-09-22 Orders Odalis, 1.2.840.1 [id number] Univers 00:00:00 00:00:00 Only Josephine 48171.1.1 ity of 3.412.2.7 [place] .3.462414 MD Lott8 [facility] 2022-09-22 2022-09-22 Orders Odalis, 1.2.840.1 [id number] Univers 00:00:00 00:00:00 Only Josephine 11383.1.1 ity of 3.412.2.7 [place] .3.223042 MD Lott8 [facility] 2022-09-12 2022-09-12 [facility] Tanesha, 1.2.840.1 [id number] Univers 08:40:57 23:59:00 Encounter Sofy Chata 34933.1.1 ity of 3.412.2.7 [place] .3.136739 MD Mccurdy [facility] 2022-09-12 2022-09-12 Hospital KINDRA Almendarez, 1.2.840.1 [id number] Univers 08:40:57 23:59:00 Encounter Sofy E 62330.1.1 ity of 3.412.2.7 [place] .3.014418 MD Mccurdy [facility] 2022-09-12 2022-09-12 Consult Kay, 1.2.840.1 [id number] Univers 09:30:00 10:44:27 Tana Montenegro 55002.1.1 ity of 3.412.2.7 [place] .3.449587 MD Mccurdy [facility] 2022-09-12 2022-09-12 Consult KINDRA Kay, 1.2.840.1 [id number] Univers 09:30:00 10:44:27 Tana Montenegro 72658.1.1 ity of 3.412.2.7 [place] .3.331941 MD M[facility]urdy [facility] 2022-09-12 2022-09-12 Travel 1.2.840.1 1.2.007.280 6548 [id number] Univers 00:00:00 00:00:00 52854.1.1 350.1.13.41 ity of 3.412.2.7 [place]7.3.698 [place]3.8734[place] 084.8 MD M[facility]urdy [facility] 2022-09-12 2022-09-12 Travel 1.2.840.1 1.2.911.023 8162 [id number] Univers 00:00:00 00:00:00 38987.1.1 350.1.13.41 ity of 3.412.2.7 2.[place].7.3.698 [place] .3.947[place] 084Kaylie8 MD Mccurdy [facility] 2022-09-04 2022-09-04 Orders Vanessa, 1.2.840.1 [id number] Univers 00:00:00 00:00:00 Only Moushumi 38873.1.1 ity of 3.412.2.7 [place] .3.631956 MD M[facility]urdy [facility] 2022-09-04 2022-09-04 Orders Vanessa, 1.2.840.1 [id number] Univers 00:00:00 00:00:00 Only Moushumi 93629.1.1 ity of 3.412.2.7 [place] .3.818379 MD [facility]urdy [facility] 2022-09-01 [facility]09[facility] 1.2.840.1 [id number] 1 [id number] Univers 11:35:17 23:59:00 Encounter 49668.1.1 it y of 3.412.2.7 [place] .3.084373 MD Mccurdy [facility] 2022-09-01 2022-09-01 [facility] Momo Jung 1.2.840.1 [id number] 1 [id number] Univers 11:35:17 23:59:00 Encounter 79812.1.1 it y of 3.412.2.7 [place] .3.656724 MD Mccurdy [facility] 2022-09-01 2022-09-01 Outpatient MORE BARAKAT [id number] More 00:00:00 00:00:00 LEODAN pollard 2022-09-01 [facility]22[facility]-01 [facility]1 [id number] 11 [id number] Univers 00:00:00 00:00:00 88279.1.1 ity of 3.412.2.7 [place] .3.923191 MD Mccurdy [facility] 2022-09-01 2022-09-01 [facility] 1.2.840.1 [id number] 11 [id number] Univers 00:00:00 00:00:00 63114.1.1 ity of 3.412.2.7 [place] .3Kaylie791088 MD Mccurdy [facility] 2022-08-30 2022-08-30 Telephone Derrek, 1.2.840.1 [id number] 1103 [id number] Univers 00:00:00 00:00:00 Cyndy Rohith 36895.1.1 i ty of 3.412.2.7 [place] .3.101519 MD Lott8 [facility] 2022-08-30 2022-08-30 Telephone Derrek, 1.2.840.1 [id number] 1103 [id number] Univers 00:00:00 00:00:00 Cyndy Rohith 87146.1.1 i ty of 3.412.2.7 [place] .3.954259 MD Lott8 [facility] 2022-08-21 2022-08-21 Telemedici Salvador 1.2.840.1 [id number] Univers 15:20:00 15:20:00 leidy Philip 79201.1.1 ity of Dai 3.412.2.7 [place] .3.483238 MD Lott8 [facility] 2022-08-21 2022-08-21 Telemedici EL Salvador 1.2.840.1 [id number] Univers 15:20:00 15:20:00 leidy Philip 22444.1.1 ity of [place] 3.412.2.7 [place] .3.756560 MD Lott8 [facility] 2022-08-21 2022-08-21 Outpatient EL TANESHA, MDA MDA [id number] 10:06:55 10:43:55 SOFY K[facility]ore [facility] 2022-08-21 2022-08-21 Travel 1.2.840.1 1.2.790.786 4084 [id number] Univers 00:00:00 00:00:00 17468.1.1 350.1.13.41 ity of 3.412.2.7 2.2.7.3.698 [place] .3.825784 084.8 MD Mccurdy [facility] 2022-08-21 2022-08-21 Travel 1.2.840.1 1.2.296.436 9240 [id number] Univers 00:00:00 00:00:00 91321.1.1 350.1.13.41 ity of 3.412.2.7 2.2.7.3.698 [place] .3.741414 084.8 MD Mccurdy [facility] 2022-08-15 2022-08-15 Orders Tanesha, 1.2.840.1 [id number] Univers 00:00:00 00:00:00 Only Sofy Brizuela 50462.1.1 ity of 3.412.2.7 [place] .3.159565 MD Lott8 [facility] 2022-08-15 2022-08-15 Orders Tanesha, 1.2.840.1 [id number] Univers 00:00:00 00:00:00 Only Sofy Brizuela 45639.1.1 ity of 3.412.2.7 [place] .3.498530 MD Mccurdy [facility] 2022-08-14 2022-08-14 Outpatient EL TANESHA, MDA MDA [id number] MD 09:15:57 09:23:01 SOFY Novak [facility] 2022-08-14 2022-08-14 Travel 1.2.840.1 1.2.321.242 2804 [id number] Univers 00:00:00 00:00:00 52623.1.1 350.1.13.41 ity of 3.412.2.7 2.2.7.3.698 [place] .3.686477 084.8 MD M[facility]urdy [facility] 2022-08-14 2022-08-14 Travel 1.2.840.1 1.2.378.562 9661 [id number] Univers 00:00:00 00:00:00 24439.1.1 350.1.13.41 ity of 3.412.2.7 2.[place].7.3.698 [place] .3.889908 084.8 MD [facility]urdy [facility] 2022-08-10 2022-08-10 Ancillary Tanesha, 1.2.840.1 [id number] [id number] Univers 20:05:00 20:10:00 Procedure Sofy E 52161.1.1 ity of 3.412.2.7 [place] .3.969468 MD M[facility]urdy [facility] 2022-08-10 2022-08-10 Ancillary EL Tanesha, 1.2.840.1 [id number] [id number] Univers 20:05:00 20:10:00 Procedure Sofy E 34459.1.1 ity of 3.412.2.7 [place] .3.280801 MD Lott8 [facility] 2022-08-10 2022-08-10 Ancillary Tanesha, 1.2.840.1 [id number] 1103 [id number] Univers 20:00:00 20:05:00 Procedure Sofy E 17680.1.1 ity of 3.412.2.7 [place] .3.078282 MD [facility]urdy [facility] 2022-08-10 2022-08-10 Ancillary EL Tanesha, 1.2.840.1 [id number] 1103 [id number] Univers 20:00:00 20:05:00 Procedure Sofy E 61984.1.1 ity of 3.412.2.7 [place] .3.602150 MD [facility]urdy [facility] 2022-08-10 2022-08-10 Orders Tanesha, 1.2.840.1 [id number] Univers 00:00:00 00:00:00 Only Sofy E 80248.1.1 ity of 3.412.2.7 [place] .3.703188 MD [facility]urdy [facility] 2022-08-10 2022-08-10 Orders Tanesha, 1.2.840.1 [id number] Univers 00:00:00 00:00:00 Only Sofy E 40731.1.1 ity of 3.412.2.7 [place] .3.332718 MD [facility]urdy [facility] 2022-08-09 2022-08-09 Refill Tanesha, 1.2.840.1 [id number] Univers 00:00:00 00:00:00 Sofy E 06574.1.1 ity of 3.412.2.7 [place] .3.877410 MD Lott8 [facility] 2022-08-09 2022-08-09 Refill Tanesha, 1.2.840.1 [id number] Univers 00:00:00 00:00:00 Sofy E 03061.1.1 ity of 3.412.2.7 [place] .3.072888 MD Lott8 [facility] 2022-08-07 2022-08-07 Outpatient EL TANESHA, MDA MDA [id number] 09:10:15 09:37:45 SOFYKITTY Novak o 2022-08-07 2022-08-07 Orders Tanesha, 1.2.840.1 [id number] Univers 00:00:00 00:00:00 Only Sfoy E 60490.1.1 ity of 3.412.2.7 [place] .3.804697 MD Lott8 [facility] 2022-08-07 2022-08-07 Telephone Yung, 1.2.840.1 [id number] [id number] Univers 00:00:00 00:00:00 Holly 57840.1.1 ity of 3.412.2.7 [place] .3.014415 MD Lott8 [facility] 2022-08-07 2022-08-07 Orders Tanesha, 1.2.840.1 [id number] Univers 00:00:00 00:00:00 Only Sofy E 83350.1.1 ity of 3.412.2.7 [place] .3.917670 MD Lott8 [facility] 2022-08-07 2022-08-07 Orders Tanesha, 1.2.840.1 [id number] Univers 00:00:00 00:00:00 Only Sofy E 03532.1.1 ity of 3.412.2.7 [place] .3.949917 MD Lott8 [facility] 2022-08-07 2022-08-07 Telephone Yung, 1.2.840.1 [id number] Univers 00:00:00 00:00:00 Holly 32109.1.1 ity of 3.412.2.7 [place] .3.643671 MD [facility] 2022-08-07 2022-08-07 Orders Tanesha, 1.2.840.1 [id number] Univers 00:00:00 00:00:00 Only Sofy Brizuela 50849.1.1 ity of 3.412.2.7 [place] .3.546399 MD [facility]urdy [facility] 2022-08-04 2022-08-04 [facility] 1.2.840.1 [id number] 1 [id number] Univers 10:11:22 23:59:00 Encounter 23500.1.1 it y of 3.412.2.7 [place] .3.616963 MD M[facility]urdy [facility] 2022-08-04 2022-08-04 [facility] 1.2.840.1 [id number] 1 [id number] Univers 10:11:22 23:59:00 Encounter 49489.1.1 it y of 3.412.2.7 [place] .3.129759 MD [facility]urdy [facility] 2022-08-04 2022-08-04 Telephone Tanesha, 1.2.840.1 [id number] [id number] Univers 00:00:00 00:00:00 Sofy Brizuela 73239.1.1 ity of 3.412.2.7 [place] .3.261513 MD [facility]urdy [facility] 2022-08-04 2022-08-04 Travel 1.2.840.1 1.2.342.452 0498 [id number] Univers 00:00:00 00:00:00 99126.1.1 350.1.13.41 ity of 3.412.2.7 [place]7.3.698 [place] .[place] 084.8 MD Mccrudy [facility] 2022-08-04 2022-08-04 Telephone Tanesha, 1.2.840.1 [id number] 1102 [id number] Univers 00:00:00 00:00:00 Sofy Brizuela 28940.1.1 ity of 3.412.2.7 [place] .3.713437 MD [facility] 2022-08-04 2022-08-04 Travel 1.2.840.1 1.2.694.633 9458 [id number] Univers 00:00:00 00:00:00 47850.1.1 350.1.13.41 ity of 3.412.2.7 [place]7.3.698 [place] .3.677483 084.8 MD [facility]urdy [facility] 2022-08-02 2022-08-02 Ancillary Tanesha, 1.2.840.1 [id number] 1102 [id number] Univers 13:30:00 16:00:00 Procedure Sofy Brizuela 59471.1.1 ity of 3.412.2.7 [place] .3.357755 MD [facility] 2022-08-02 2022-08-02 Ancillary EL Tanesha, 1.2.840.1 [id number] 1102 [id number] Univers 13:30:00 16:00:00 Procedure Sofy Brizuela 11534.1.1 ity of 3.412.2.7 [place] .3.086847 MD [facility] 2022-08-02 2022-08-02 Outpatient EL TANESHA, MDA MDA [id number] MD 11:06:37 11:24:51 SOFY Kishore o 2022-08-02 2022-08-02 Travel 1.2.840.1 1.2.761.506 1053 [id number] Univers 00:00:00 00:00:00 58740.1.1 350.1.13.41 ity of 3.412.2.7 2.[place]7.3.698 [place] .3.957535 084.8 MD [facility] 2022-08-02 2022-08-02 Travel 1.2.840.1 1.2.596.249 9748 [id number] Univers 00:00:00 00:00:00 78585.1.1 350.1.13.41 ity of 3.412.2.7 2.[place]7.3.698 [place] .3.699795 084.8 MD Lott8 [facility] 2022-07-31 2022-07-31 Office Michael, 1.2.840.1 [id number] Univers 08:45:00 10:23:02 Visit Keaton 13398.1.1 ity of 3.412.2.7 [place] .3.694873 MD Lott8 [facility] 2022-07-31 2022-07-31 Office KINDRA Michael, 1.2.840.1 [id number] Univers 08:45:00 10:23:02 Visit Keaton 26298.1.1 ity of 3.412.2.7 [place] .3.537142 MD Lott8 [facility] 2022-07-31 2022-07-31 Outpatient MORE BARAKAT [id number] [place] 00:00:00 00:00:00 LEODAN pollard 2022-07-31 2022-07-31 Orders [place], 1.2.840.1 [id number] 11 [id number] Univers 00:00:00 00:00:00 Only Max 11204.1.1 ity of 3.412.2.7 [place] .3.956438 MD [facility] 2022-07-31 2022-07-31 Orders Tanesha, 1.2.840.1 [id number] Univers 00:00:00 00:00:00 Only Sofy E 80817.1.1 ity of 3.412.2.7 [place] .3.992757 MD Lott8 [facility] 2022-07-31 2022-07-31 Orders Tanesha, 1.2.840.1 [id number] Univers 00:00:00 00:00:00 Only Sofy E 21849.1.1 ity of 3.412.2.7 [place] .3.497594 MD Lott8 [facility] 2022-07-31 2022-07-31 Travel 1.2.840.1 1.2.245.154 5408 [id number] Univers 00:00:00 00:00:00 26876.1.1 350.1.13.41 ity of 3.412.2.7 2.[place]7.3.698 [place] .3.2890[place] 084.8 MD [facility] 2022-07-31 2022-07-31 Orders [place], 1.2.840.1 [id number] 11 [id number] Univers 00:00:00 00:00:00 Only Max 00750.1.1 ity of 3.412.2.7 [place] .3.130185 MD [facility] 2022-07-31 2022-07-31 Orders Tanesha, 1.2.840.1 [id number] Univers 00:00:00 00:00:00 Only Sofy E 66771.1.1 ity of 3.412.2.7 [place] .3.997513 MD [facility] 2022-07-31 2022-07-31 Orders Tanesha, 1.2.840.1 [id number] Univers 00:00:00 00:00:00 Only Sofy E 69460.1.1 ity of 3.412.2.7 [place] .3.927829 MD [facility] 2022-07-31 2022-07-31 Travel 1.2.840.1 1.2.591.519 0398 [id number] Univers 00:00:00 00:00:00 93265.1.1 350.1.13.41 ity of 3.412.2.7 2.[place]7.3.698 [place] .3.877773 084.8 MD [facility] 2022-07-28 2022-07-28 Orders Tanesha, 1.2.840.1 [id number] Univers 00:00:00 00:00:00 Only Sofy E 30102.1.1 ity of 3.412.2.7 [place] .3.746945 MD [facility] 2022-07-28 2022-07-28 Orders Tanesha, 1.2.840.1 [id number] Univers 00:00:00 00:00:00 Only Sofy Brizuela 84047.1.1 ity of 3.412.2.7 [place] .3.545229 MD Lott8 [facility] 2022-07-27 2022-07-27 Orders Odalis, 1.2.840.1 [id number] Univers 00:00:00 00:00:00 Only Josephine 70989.1.1 ity of 3.412.2.7 [place] .3.681988 MD Lott8 [facility] 2022-07-27 2022-07-27 Orders Odalis, 1.2.840.1 [id number] Univers 00:00:00 00:00:00 Only Josephine 88732.1.1 ity of 3.412.2.7 [place] .3.906297 .8 [facility] 2022-07-27 2022-07-27 Orders Odalis, 1.2.840.1 [id number] Univers 00:00:00 00:00:00 Only Josephine 46471.1.1 ity of 3.412.2.7 [place] .3.328969 MD Lott8 [facility] 2022-07-27 2022-07-27 Orders Odalis, 1.2.840.1 [id number] Univers 00:00:00 00:00:00 Only Josephine 41658.1.1 ity of 3.412.2.7 [place] .3.263860 MD Lott8 [facility] 2022-07-07 2022-07-07 Outpatient MORE BARAKAT [id number] More 00:00:00 00:00:00 LEODAN pollard 2022-07-04 2022-07-04 Telemedici Carolineilati 1.2.840.1 [id number] Univers 11:00:00 11:00:00 leidy Philip 04811.1.1 ity of Dai 3.412.2.7 [place] .3.368027 MD Lott8 [facility] 2022-07-04 2022-07-04 Telemedici KINDRA Franco 1.2.840.1 [id number] Univers 11:00:00 11:00:00 ne Negrao, 54396.1.1 ity of Dai 3.412.2.7 [place] .3.779438 MD Lott8 [facility] 2022-07-04 2022-07-04 Orders Tanesha, 1.2.840.1 [id number] Univers 00:00:00 00:00:00 Only Sofy Brizuela 14221.1.1 ity of 3.412.2.7 [place] .3.552171 MD Lott8 [facility] 2022-07-04 2022-07-04 Orders Tanesha, 1.2.840.1 [id number] Univers 00:00:00 00:00:00 Only Sofy Brizuela 79802.1.1 ity of 3.412.2.7 [place] .3.011875 MD Lott8 [facility] 2022-06-30 2022-06-30 Telemedici Satya, 1.2.840.1 [id number] Univers 10:00:00 11:25:51 ne Warren 70545.1.1 ity of 3.412.2.7 [place] .3.695165 MD Mccurdy [facility] 2022-06-30 2022-06-30 Telemedici KINDRA Hernadez, 1.2.840.1 [id number] Univers 10:00:00 11:25:51 ne Warren 31333.1.1 ity of 3.412.2.7 [place] .3.796424 MD Mccurdy [facility] 2022-06-29 2022-06-29 Ancillary Tanesha, 1.2.840.1 [id number] Univers 20:00:00 20:05:00 Procedure Sofy Brizuela 39949.1.1 ity of 3.412.2.7 [place] .3.973998 MD .8 [facility] 2022-06-29 2022-06-29 Ancillary EL Tanesha, 1.2.840.1 [id number] Univers 20:00:00 20:05:00 Procedure Sofy E 15258.1.1 ity of 3.412.2.7 [place] .3.013684 MD Lott8 [facility] 2022-06-29 2022-06-29 Orders Tanesha, 1.2.840.1 [id number] Univers 00:00:00 00:00:00 Only Sofy E 09265.1.1 ity of 3.412.2.7 [place] .3.011092 MD Lott8 [facility] 2022-06-29 2022-06-29 Orders Tanesha, 1.2.840.1 [id number] Univers 00:00:00 00:00:00 Only Sofy E 77932.1.1 ity of 3.412.2.7 [place] .3.665808 MD Mccurdy [facility] 2022-06-28 2022-06-28 Ancillary Vailati 1.2.840.1 [id number] [id number] Univers 20:00:00 20:05:00 Procedure Negrao, 40426.1.1 it y of Dai 3.412.2.7 [place] .3.986694 MD Mccurdy [facility] 2022-06-28 2022-06-28 Ancillary KINDRA Franco 1.2.840.1 [id number] [id number] Univers 20:00:00 20:05:00 Procedure Negrao, 20934.1.1 it y of Dai 3.412.2.7 [place] .3.548574 MD Lott8 [facility] 2022-06-26 2022-06-26 Ancillary Odalis, 1.2.840.1 [id number] [id number] Univers 09:15:00 09:30:00 Procedure Josephine 86787.1.1 i ty of 3.412.2.7 [place] .3.718134 MD Lott8 [facility] 2022-06-26 2022-06-26 Ancillary EL Odalis, 1.2.840.1 [id number] [id number] Univers 09:15:00 09:30:00 Procedure Josephine 66115.1.1 i ty of 3.412.2.7 [place] .3.265065 MD Lott8 [facility] 2022-06-26 2022-06-26 Travel 1.2.840.1 1.2.306.456 [id number] Univers 00:00:00 00:00:00 53774.1.1 350.1.13.41 ity of 3.412.2.7 [place]7.3.698 [place] .3.9[place] 084.8 .8 [facility] 2022-06-26 2022-06-26 Travel 1.2.840.1 1.2.935.129 [id number] Univers 00:00:00 00:00:00 60623.1.1 350.1.13.41 ity of 3.412.2.7 [place]3.698 [place] .[place] 084.8 MD Mccurdy [facility] 2022-06-23 2022-06-23 Outpatient ADRIANO ODIN FLOWERS [id number] More 14:00:00 14:00:00 Seybol d 2022-06-22 2022-06-22 Outpatient MORE BARAKAT [id number] More 00:00:00 00:00:00 LEODAN Seybol d 2022-06-21 2022-06-21 Outpatient MORE BARAKAT [id number] More 00:00:00 00:00:00 LEODAN Seybol d 2022-06-20 2022-06-20 Outpatient MORE BARAKAT [id number] More 00:00:00 00:00:00 LEODAN Murphyybol d 2022-06-16 2022-06-16 Outpatient LAB90 MORE FLOWERS [id number] More 10:15:00 10:15:00 Seybol d 2022-06-16 2022-06-16 Outpatient MORE BARAKAT [id number] More 09:30:00 09:30:00 LEODAN pollard 2022-06-09 2022-06-09 Orders Winston, 1.2.840.1 [id number] Univers 00:00:00 00:00:00 Only Paula 30647.1.1 ity of 3.412.2.7 [place] .3.274035 MD Lott8 [facility] 2022-06-09 2022-06-09 Orders Winston, 1.2.840.1 [id number] Univers 00:00:00 00:00:00 Only Paula 59358.1.1 ity of 3.412.2.7 [place] .3.729705 MD Mccurdy [facility] 2022-06-08 2022-06-08 Outpatient MORE CARTER [id number] More 00:00:00 00:00:00 HECTOR pollard 2022-05-31 2022-05-31 Telephone Odalis, 1.2.840.1 [id number] Univers 00:00:00 00:00:00 Josephine 71985.1.1 ity of 3.412.2.7 [place] .3.872341 MD Lott8 [facility] 2022-05-31 2022-05-31 Telephone Odalis, 1.2.840.1 [id number] Univers 00:00:00 00:00:00 Josephine 37728.1.1 ity of 3.412.2.7 [place] .3.534080 MD [facility]8 [facility] [facility] 2022-05-25 2022-05-29 [facility], 1.2.840.1 [id number] Univers 05:20:00 12:30:00 Encounter Warren 50854.1.1 it y of 3.412.2.7 [place] .3.382393 MD Lott8 [facility] 2022-05-25 2022-05-29 [facility], 1.2.840.1 [id number] Univers 05:20:00 12:30:00 Encounter Warren 11151.1.1 it y of 3.412.2.7 [place] .3.966699 MD [facility] 2022-05-29 2022-05-29 [facility] [id number] 05:49:54 06:21:47 WARREN Darryl o n 2022-05-25 2022-05-25 Surgery Sepesi, 1.2.840.1 [id number] Univers 07:00:00 11:45:00 Warren 01174.1.1 ity of 3.412.2.7 [place] .3.934279 MD Lott8 [facility] 2022-05-25 2022-05-25 [facility] 1.[facility].840.1 [id number] [id number] Univers 07:00:00 11:45:00 Warren 80936.1.1 ity of 3.412.2.7 [place] .3.803108 MD [facility] 2022-05-25 2022-05-25 Anesthesia Caridad Evelyn 1.2.840.1 1010 [id number] [id number] Univers 07:12:00 10:25:00 Event Phyllis Bobby 81663.1.1 ity of 3.412.2.7 [place] .3.560498 MD [facility] 2022-05-25 2022-05-25 Anesthesia Caridad Evelyn 1.2.840.1 [id number] [id number] Univers 07:12:00 10:25:00 Event Rhonda Bobbyissa 04965.1.1 ity of 3.412.2.7 [place] .3.251226 MD [facility] 2022-05-25 2022-05-25 Travel 1.2.840.1 1.2.604.005 2752 [id number] Univers 00:00:00 00:00:00 62300.1.1 350.1.13.41 ity of 3.412.2.7 [place]7.3.698 [place]3.8840[place] 084.Kimberlee [facility] 2022-05-25 2022-05-25 Travel 1.2.840.1 1.2.776.363 2690 000619 Univers 00:00:00 00:00:00 52215.1.1 350.1.13.41 ity of 3.412.2.7 [place]7.3.698 [place] .3.342514 084.8 MD [facility] 2022-05-24 2022-05-24 Nutrition Josephine Jacobo 1.2.840.1 [id number] Univers 09:00:00 09:28:38 Candy Delcid 65152.1.1 ity of 3.412.2.7 [place] .3.653351 MD [facility] 2022-05-24 2022-05-24 Nutrition EL Josephine Jacobo 1.2.840.1 [id number] 23 [id number] Univers 09:00:00 09:28:38 Candy Delcid 34632.1.1 ity of 3.412.2.7 [place] .3.193173 MD [facility] 2022-05-24 2022-05-24 [facility] Kavita, 1.2.840.1 [id number] 1 [id number] Univers 01:01:16 01:01:16 Event Mark 32239.1.1 ity of 3.412.2.7 [place] .3.969368 MD [facility] 2022-05-24 2022-05-24 [facility] Kavita, 1.2.840.1 [id number] 1 [id number] Univers 01:01:16 01:01:16 Event Mark 99633.1.1 ity of 3.412.2.7 [place] .3.449259 MD [facility] 2022-05-24 2022-05-24 Travel 1.2.840.1 1.2.641.178 8443 [id number] Univers 00:00:00 00:00:00 77325.1.1 350.1.13.41 ity of 3.412.2.7 2.[place]7.3.698 [place] .3.998939 084.8 .8 [facility] 2022-05-24 2022-05-24 Travel 1.2.840.1 1.2.936.197 8524 [id number] Univers 00:00:00 00:00:00 88537.1.1 350.1.13.41 ity of 3.412.2.7 [place]7.3.698 [place] .3.421161 084.8 .8 [facility] 2022-05-23 2022-05-23 HAZEL Jacobo, 1.2.840.1 [id number] 8109 Univers 13:30:00 14:00:00 Appointmen Josephine 41152.1.1 ity of ts 3.412.2.7 [place] .3.139248 MD Lott8 [facility] 2022-05-23 2022-05-23 HAZEL Jacobo, 1.2.840.1 [id number] 8275 Univers 13:30:00 14:00:00 Appointmen Josephine 89207.1.1 ity of ts 3.412.2.7 [place] .3.054443 MD Lott8 [facility] 2022-05-23 2022-05-23 Outpatient KINDRA JACOBO, [facility] MDA [id number] 09:46:53 09:49:22 JOSEPHINE [facility] 2022-05-23 2022-05-23 Clinical Josephine Jacobo 1.2.840.1 [id number] 2 [id number] Univers 09:30:00 09:45:59 Support Ana Laura Quinn 46500.1.1 ity of 3.412.2.7 [place] .3.512884 MD [facility] 2022-05-23 2022-05-23 Clinical Josephine Cummins 1.2.840.1 [id number] Univers 09:30:00 09:45:59 Support Ana Laura Quinn 60188.1.1 ity of 3.412.2.7 [place] .3.981028 MD [facility] 2022-05-23 2022-05-23 Outpatient MORE BARAKAT [id number] More 00:00:00 00:00:00 LEODAN Mccrary rufus 2022-05-23 2022-05-23 Travel 1.2.840.1 1.2.282.141 9776 [id number] Univers 00:00:00 00:00:00 08711.1.1 350.1.13.41 ity of 3.412.2.7 [place]7.3.698 [place] .3.606427 084.8 MD Lott8 [facility] 2022-05-23 2022-05-23 Travel 1.2.840.1 1.2.924.135 7340 [id number] Univers 00:00:00 00:00:00 77990.1.1 350.1.13.41 ity of 3.412.2.7 2.[place]7.3.698 [place] .3.744327 084.8 MD Lott8 [facility] 2022-05-09 2022-05-09 [facility], 1.2.840.1 [id number] Univers 08:49:54 23:59:00 Encounter Sofy Brizuela 33232.1.1 ity of 3.412.2.7 [place] .3.161007 MD [facility] 2022-05-09 2022-05-09 [facility], 1.2.840.1 [id number] 77429 37114 Univers 08:49:54 23:59:00 Encounter Sofy Brizuela 14822.1.1 ity of 3.412.2.7 [place] .3.448285 MD Lott8 [facility] 2022-05-09 2022-05-09 Follow-Up Salvador 1.2.840.1 [id number] 1099 [id number] Univers 10:40:00 12:08:56 Cedrick 17953.1.1 ity of Dai 3.412.2.7 [place] .3.337165 MD Lott8 [facility] 2022-05-09 2022-05-09 Follow-Up KINDRA Franco 1.2.840.1 [id number] 1099 [id number] [facility] 10:40:00 12:08:56 Negrao, 65608.1.1 ity of Dai 3.412.2.7 [place] .3.472545 MD [facility] 2022-05-09 2022-05-09 Follow-Up Satya, 1.2.840.1 [id number] 1099 [id number] Univers 10:20:00 11:15:52 Warren 36936.1.1 ity of 3.412.2.7 [place] .3.932018 MD [facility] 2022-05-09 2022-05-09 Follow-Up KINDRA Hernadez, 1.2.840.1 [id number] 1099 [id number] [facility] 10:20:00 11:15:52 Warren 07189.1.1 ity of 3.412.2.7 [place] .3.880670 MD [facility] 2022-05-09 2022-05-09 Prep for Odalis, 1.2.840.1 [id number] Univers 00:00:00 00:00:00 Surgery Josephine 33584.1.1 ity of 3.412.2.7 [place] .3.887010 MD [facility] 2022-05-09 2022-05-09 Travel 1.2.840.1 1.2.381.555 1863 [id number] Univers 00:00:00 00:00:00 76853.1.1 350.1.13.41 ity of 3.412.2.7 [place]7.3.698 [place] .3.447261 084.8 MD [facility] 2022-05-09 2022-05-09 Prep for Odalis, 1.2.840.1 [id number] Univers 00:00:00 00:00:00 Surgery Josephine 10098.1.1 ity of 3.412.2.7 [place] .3.557297 MD [facility] 2022-05-09 2022-05-09 Travel 1.2.840.1 1.2.004.447 2738 [id number] Univers 00:00:00 00:00:00 50353.1.1 350.1.13.41 ity of 3.412.2.7 2.[place].7.3.698 [place] .3.709845 084.8 MD Lott8 [facility] 2022-05-08 2022-05-08 Outpatient MORE BARAKAT [id number] More 00:00:00 00:00:00 LEODAN Seybol d 2022-05-03 2022-05-03 Outpatient MORE BARAKAT [id number] More 13:00:00 13:00:00 LEODAN Seybol rufus 2022-04-24 2022-04-24 Outpatient MORE BARAKAT [id number] More 00:00:00 00:00:00 LEODAN Murphyybol rufus 2022-04-17 2022-04-17 Infusion Vailati 1.2.840.1 [id number] [id number] Univers 10:15:00 13:26:57 Cedrick 52852.1.1 ity of Dai 3.412.2.7 [place] .3.663171 MD Lott8 [facility] 2022-04-17 2022-04-17 Infusion EL Vailati 1.2.840.1 [id number] [id number] Univers 10:15:00 13:26:57 Cedrick 21031.1.1 ity of Dai 3.412.2.7 [place] .3.590259 MD Lott8 [facility] 2022-04-17 2022-04-17 Telemedici Vailati 1.2.840.1 [id number] Univers 09:00:00 09:06:32 leidy Philip 68037.1.1 ity of Dai 3.412.2.7 [place] .3.876816 MD Lott8 [facility] 2022-04-17 2022-04-17 Telemedici EL Vailati 1.2.840.1 [id number] Univers 09:00:00 09:06:32 leidy Philip, 04685.1.1 ity of Dai 3.412.2.7 [place] .3.245250 MD [facility] 2022-04-17 2022-04-17 Outpatient KINDRA ALMENDAREZ, MDA MDA [id number] 08:08:21 08:09:28 SOFY [facility] 2022-04-17 2022-04-17 Piedad Olmedo, 1.2.840.1 [id number] Univers 00:00:00 00:00:00 Only Elvia Vaughn 65232.1.1 ity of 3.412.2.7 [place] .3.156416 MD [facility] 2022-04-17 2022-04-17 Travel 1.2.840.1 1.2.170.152 6497 [id number] Univers 00:00:00 00:00:00 47231.1.1 350.1.13.41 ity of 3.412.2.7 2.2.7.3.698 [place] .3.245736 084.8 MD [facility] 2022-04-17 2022-04-17 Piedad Olmedo, 1.2.840.1 [id number] 8010 Univers 00:00:00 00:00:00 Only Elvia Vaughn 70599.1.1 ity of 3.412.2.7 [place] .3.879004 MD [facility] 2022-04-17 2022-04-17 Travel 1.2.840.1 1.2.528.373 7704 [id number] Univers 00:00:00 00:00:00 52450.1.1 350.1.13.41 ity of 3.412.2.7 2.[place].7.3.698 [place] .3.427652 084.8 MD [facility] 2022-04-11 2022-04-11 Piedad Almendarez 1.2.840.1 [id number] Univers 00:00:00 00:00:00 Only Sofy Brizuela 61666.1.1 ity of 3.412.2.7 [place] .3.131550 MD Lott8 [facility] 2022-04-11 2022-04-11 Orders Tanesha, 1.2.840.1 [id number] Univers 00:00:00 00:00:00 Only Sofy Brizuela 15514.1.1 ity of 3.412.2.7 [place] .3.025155 .8 [facility] 2022-04-10 2022-04-10 [facility] 1.2.840.1 [id number] Univers 10:30:00 23:59:00 Encounter Cedrick 80522.1.1 it y of Dai 3.412.2.7 [place] .3.995351 MD Lott8 [facility] 2022-04-10 2022-04-10 [facility] 1.2.840.1 [id number] [id number] Univers 10:30:00 23:59:00 Encounter Cedrick 96344.1.1 it y of Dai 3.412.2.7 [place] .3.269668 MD Lott8 [facility] 2022-04-10 2022-04-10 Office Tanesha, 1.2.840.1 [id number] Univers 11:30:00 12:17:57 Visit Sofy Brizuela 95927.1.1 ity of 3.412.2.7 [place] .3.755615 MD Lott8 [facility] 2022-04-10 2022-04-10 Office EL Tanesha, 1.2.840.1 [id number] Univers 11:30:00 12:17:57 Visit Sofy Brizuela 04147.1.1 ity of 3.412.2.7 [place] .3.138915 MD Lott8 [facility] 2022-04-10 2022-04-10 Evin Anglin, 1.2.840.1 [id number] Univers 00:00:00 00:00:00 Cyndy Newberry 39828.1.1 i ty of 3.412.2.7 [place] .3.455681 MD [facility] 2022-04-10 2022-04-10 Travel 1.2.840.1 1.2.816.477 5693 [id number] Univers 00:00:00 00:00:00 33355.1.1 350.1.13.41 ity of 3.412.2.7 [place].2.7.3.698 [place] .3.201458 084.8 MD [facility] 2022-04-10 2022-04-10 Refill Derrek, 1.2.840.1 [id number] Univers 00:00:00 00:00:00 Cyndy Rohith 91710.1.1 i ty of 3.412.2.7 [place] .3.111184 MD [facility] 2022-04-10 2022-04-10 Travel 1.2.840.1 1.2.874.812 1526 [id number] Univers 00:00:00 00:00:00 37883.1.1 350.1.13.41 ity of 3.412.2.7 2.2.7.3.698 [place] .3.971886 084.8 MD [facility] 2022-04-07 2022-04-07 Ancillary Ramírez, 1.2.840.1 [id number] 10 [id number] Univers 09:05:00 10:30:00 Procedure Yu Brizuela 65164.1.1 it y of 3.412.2.7 [place] .3.142671 MD [facility] 2022-04-07 2022-04-07 Ancillary EL Ramírez, 1.2.840.1 [id number] 10 [id number] Univers 09:05:00 10:30:00 Procedure Yu Brizuela 13699.1.1 it y of 3.412.2.7 [place] .3.610364 MD [facility] 2022-04-07 2022-04-07 Travel 1.2.840.1 1.2.609.740 9663 [id number] Univers 00:00:00 00:00:00 46532.1.1 350.1.13.41 ity of 3.412.2.7 2.2.7.3.698 [place] .3.648106 084.8 MD Lott8 [facility] 2022-04-07 2022-04-07 Travel 1.2.840.1 1.2.070.389 1358 [id number] Univers 00:00:00 00:00:00 66602.1.1 350.1.13.41 ity of 3.412.2.7 2.2.7.3.698 [place] .3.952980 084.8 MD [facility] 2022-03-27 2022-03-27 [facility] Kris Barrios 1.2.840. 1 [id number] Univers 09:00:00 09:30:00 Keaton Benitez 63070.1.1 ity of 3.412.2.7 [place] .3.794034 MD [facility] 2022-03-27 2022-03-27 [facility] Kris Barrios 1.2.840. 1 [id number] Univers 09:00:00 09:30:00 Keaton Benitez 37177.1.1 ity of 3.412.2.7 [place] .3.288330 MD [facility] 2022-03-27 2022-03-27 Piedad Rodriguez 1.2.840.1 [id number] Univers 00:00:00 00:00:00 Only Keaton 07160.1.1 ity of 3.412.2.7 [place] .3.315579 MD [facility] 2022-03-27 2022-03-27 Piedad Rodriguez 1.2.840.1 [id number] Univers 00:00:00 00:00:00 Only Keaton 95072.1.1 ity of 3.412.2.7 [place] .3.903268 MD [facility] 2022-03-20 2022-03-20 [facility], 1.2.840.1 [id number] 10 [id number] Univers ::18 23:59:00 Encounter Tammy 83617.1.1 it y of 3.412.2.7 [place] .3.664127 MD Lott8 [facility] 2022-03-20 2022-03-20 [facility], 1.2.840.1 [id number] 10 [id number] Univers 09:18 23:59:00 Encounter Tammy 64929.1.1 it y of 3.412.2.7 [place] .3.633795 MD [facility] 2022-03-20 2022-03-20 Infusion Dai Crouch 1.2.840.1 [id number] Univers 12:00:00 16:47:49 Matilda Condon 49267.1.1 ity of 3.412.2.7 [place] .3.155728 MD [facility] 2022-03-20 2022-03-20 Infusion Dai Murphy 1.2.840.1 [id number] Univers 12:00:00 16:47:49 Matilda Condon 70400.1.1 ity of 3.412.2.7 [place] .3.021239 MD [facility] 2022-03-20 2022-03-20 Consult Nakul, 1.2.840.1 [id number] Univers 11:00:00 11:15:27 Kaylie 62544.1.1 ity of 3.412.2.7 [place] .3.061861 MD [facility] 2022-03-20 2022-03-20 Consult EL Nakul, 1.2.840.1 [id number] 3748 Univers 11:00:00 11:15:27 Kaylie 17199.1.1 ity of 3.412.2.7 [place] .3.747739 MD [facility] 2022-03-20 2022-03-20 [facility] 1.2.840.1 [id number] Univers 06:50:00 09:09:00 Encounter Cedrick, 71535.1.1 it y of Dai 3.412.2.7 [place] .3.787951 MD Lott8 [facility] 2022-03-20 2022-03-20 [facility] 1.2.840.1 [id number] Univers 06:50:00 09:09:00 Encounter Negkevin, 03686.1.1 it y of Dai 3.412.2.7 [place] .3.209221 MD Lott8 [facility] 2022-03-20 2022-03-20 [address] [facility] 1.2.840.1 [id number] [id number] Univers 08:20:00 08:49:46 Visit Cedrick 88244.1.1 ity of Dai 3.412.2.7 [place] .3.201036 MD Lott8 [facility] 2022-03-20 2022-03-20 Office [facility] 1.2.840.1 [id number] Univers 08:20:00 08:49:46 Visit Pearlkevin 48726.1.1 ity of Dai 3.412.2.7 [place] .3.078538 MD Lott8 [facility] 2022-03-20 2022-03-20 Piedad Young, 1.2.840.1 [id number] Univers 00:00:00 00:00:00 Only Meredith 96256.1.1 ity of 3.412.2.7 [place] .3.793588 MD Lott8 [facility] 2022-03-20 2022-03-20 Travel 1.2.840.1 1.2.181.831 6749 [id number] Univers 00:00:00 00:00:00 84531.1.1 350.1.13.41 ity of 3.412.2.7 2.2.7.3.698 [place] .3.461301 084.8 MD [facility] 2022-03-20 2022-03-20 Orders Young, 1.2.840.1 [id number] Univers 00:00:00 00:00:00 Only Meredith 40724.1.1 ity of 3.412.2.7 [place] .3.809505 MD Lott8 [facility] 2022-03-20 2022-03-20 Travel 1.2.840.1 1.2.819.604 2601 [id number] Univers 00:00:00 00:00:00 55949.1.1 350.1.13.41 ity of 3.412.2.7 2.2.7.3.698 [place] .3.255619 084.8 MD [facility] 2022-03-09 2022-03-09 Outpatient MORE BARAKAT [id number] More 00:00:00 00:00:00 LEODAN pollard 2022-03-09 2022-03-09 Documentat John, 1.2.840.1 [id number] Univers 00:00:00 00:00:00 ion Franky 50653.1.1 ity of 3.412.2.7 [place] .3.403038 MD [facility] 2022-03-09 2022-03-09 Brant Almendarez, 1.2.840.1 [id number] 1097 [id number] Univers 00:00:00 00:00:00 Sofy E 07879.1.1 ity of 3.412.2.7 [place] .3.315522 MD [facility] 2022-03-09 2022-03-09 Documentat John, 1.2.840.1 [id number] 10 [id number] Univers 00:00:00 00:00:00 ion Franky 91708.1.1 ity of 3.412.2.7 [place] .3.507410 MD [facility] 2022-03-092022-03-09 Telephone Tanesha, 1.2.840.1 [id number] 1097 [id number] Univers 00:00:00 00:00:00 Sofy Brizuela 54159.1.1 ity of 3.412.2.7 [place] .3.835541 MD [facility] 2022-02-28 2022-02-28 Orders Enzo, 1.2.840.1 [id number] Univers 00:00:00 00:00:00 Only Tammy 07095.1.1 ity of 3.412.2.7 [place] .3.053250 MD Lott8 [facility] 2022-02-28 2022-02-28 Piedad Giraldo, 1.2.840.1 [id number] Univers 00:00:00 00:00:00 Only Tammy 58047.1.1 ity of 3.412.2.7 [place] .3.720233 MD [facility] 2022-02-27 2022-02-27 [facility] 1.2.840.1 [id number] Univers 06:45:00 23:59:00 Encounter Cedrick 52787.1.1 it y of Dai 3.412.2.7 [place] .3.995276 MD Lott8 [facility] 2022-02-27 2022-02-27 Hospital [facility] 1.2.840.1 [id number] Univers 06:45:00 23:59:00 Encounter Cedrick 45109.1.1 it y of Dai 3.412.2.7 [place] .3.330851 MD Lott8 [facility] 2022-02-27 2022-02-27 Infusion Dai Crouch 1.2.840.1 [id number] Univers 11:00:00 17:49:00 Finn Gifford 80316.1.1 ity of 3.412.2.7 [place] .3.251144 MD Lott8 [facility] 2022-02-27 2022-02-27 Infusion Dai Murphy 1.2.840.1 [id number] Univers 11:00:00 17:49:00 Finn Gifford 56716.1.1 ity of 3.412.2.7 [place] .3.793334 MD Lott8 [facility] 2022-02-27 2022-02-27 Office Thereselove 1.2.840.1 [id number] [id number] Univers 09:40:00 10:33:36 Visit Cedrick 77694.1.1 ity of Dai 3.412.2.7 [place] .3.861317 MD Lott8 [facility] 2022-02-27 2022-02-27 Office KINDRA Salehlove 1.2.840.1 [id number] 4112 Univers 09:40:00 10:33:36 Visit Cedrick 65635.1.1 ity of Dai 3.412.2.7 [place] .3.285889 MD [facility] 2022-02-27 2022-02-27 Travel 1.2.840.1 1.2.951.019 2081 [id number] Univers 00:00:00 00:00:00 18273.1.1 350.1.13.41 ity of 3.412.2.7 2.2.7.3.698 [place] .3.806975 084.8 MD [facility] 2022-02-27 2022-02-27 Travel 1.2.840.1 1.2.814.293 3710 [id number] Univers 00:00:00 00:00:00 83490.1.1 350.1.13.41 ity of 3.412.2.7 2.2.7.3.698 [place] .3.074035 084.8 MD [facility] 2022-02-23 2022-02-23 Telephone Tanesha, 1.2.840.1 [id number] 1096 [id number] Univers 00:00:00 00:00:00 Sofy E 50530.1.1 ity of 3.412.2.7 [place] .3.899288 MD Lott8 [facility] 2022-02-23 2022-02-23 Orders Tanesha, 1.2.840.1 [id number] Univers 00:00:00 00:00:00 Only Sofy E 97134.1.1 ity of 3.412.2.7 [place] .3.404274 MD Lott8 [facility] 2022-02-23 2022-02-23 Orders Hollingsworth, 1.2.840.1 [id number] 7406 Univers 00:00:00 00:00:00 Only Tra 89734.1.1 ity of 3.412.2.7 [place] .3.903453 MD [facility] 2022-02-23 2022-02-23 Orders Tanesha, 1.2.840.1 [id number] Univers 00:00:00 00:00:00 Only Sofy E 04621.1.1 ity of 3.412.2.7 [place] .3.870011 MD Lott8 [facility] 2022-02-23 2022-02-23 Telephone Tanesha, 1.2.840.1 [id number] 1096 [id number] Univers 00:00:00 00:00:00 Sofy E 54624.1.1 ity of 3.412.2.7 [place] .3.843660 MD Lott8 [facility] 2022-02-23 2022-02-23 Orders Tanesha, 1.2.840.1 [id number] Univers 00:00:00 00:00:00 Only Sofy E 30140.1.1 ity of 3.412.2.7 [place] .3.188046 MD [facility] 2022-02-23 2022-02-23 Orders Hollingsworth, 1.2.840.1 [id number] Univers 00:00:00 00:00:00 Only Tra 14523.1.1 ity of 3.412.2.7 [place] .3.953548 MD [facility] 2022-02-23 2022-02-23 Orders Tanesha, 1.2.840.1 [id number] Univers 00:00:00 00:00:00 Only Sofy E 56461.1.1 ity of 3.412.2.7 [place] .3.839542 MD Lott8 [facility] 2022-02-22 2022-02-22 Outpatient MORE HOLLOWAY [id number] More 10:00:00 10:00:00 BRINA pollard 2022-02-17 2022-02-17 Orders Juan Pablo, 1.2.840.1 [id number] Univers 00:00:00 00:00:00 Only Ambreen L 05855.1.1 ity of 3.412.2.7 [place] .3.581290 MD Lott8 [facility] 2022-02-17 2022-02-17 Orders Lizao, 1.2.840.1 [id number] Univers 00:00:00 00:00:00 Only Franky 79744.1.1 ity of 3.412.2.7 [place] .3.053719 MD Lott8 [facility] 2022-02-17 2022-02-17 Orders Juan Pablo, 1.2.840.1 [id number] Univers 00:00:00 00:00:00 Only Ambreen L 21602.1.1 ity of 3.412.2.7 [place] .3.191256 MD Lott8 [facility] 2022-02-17 2022-02-17 Orders Orexwuwo, 1.2.840.1 [id number] Univers 00:00:00 00:00:00 Only Franky 85319.1.1 ity of 3.412.2.7 [place] .3.368599 MD Lott8 [facility] 2022-02-16 2022-02-16 Outpatient KINDRA FRANCO MDA, MDA [id number] 09:54:10 09:54:10 Darryl PHILIP 2022-02-15 2022-02-15 Orders Min, 1.2.840.1 [id number] Univers 00:00:00 00:00:00 Only Cyndy Flores 66495.1.1 i ty of 3.412.2.7 [place] .3Kaylie782993 MD Lott8 [facility] 2022-02-15 2022-02-15 Orders Min, 1.2.840.1 [id number] Univers 00:00:00 00:00:00 Only Cyndy Flores 61298.1.1 i ty of 3.412.2.7 [place] .3Kaylie304463 MD Lott8 [facility] 2022-02-13 2022-02-13 Outpatient KINDRA FRANCO [facility] [id number] 10:35:04 10:35:04 Darryl PHILIP 2022-02-13 2022-02-13 Telephone Ablaji, 1.2.840.1 [id number] Univers 00:00:00 00:00:00 Indira Wiseman 83530.1.1 it y of 3.412.2.7 [place] .3.853900 MD Lott8 [facility] 2022-02-13 2022-02-13 Telephone Balaji, 1.2.840.1 [id number] Univers 00:00:00 00:00:00 Indira Wiseman 05962.1.1 it y of 3.412.2.7 [place] .3.955375 MD Lott8 [facility] 2022-02-11 2022-02-11 Clinical Muriel Leroy 1.2.840.1 [id number] Univers 15:30:00 15:45:00 Support Mariama Baez 48564.1.1 ity of 3.412.2.7 [place] .3Kaylie738711 MD Lott8 [facility] 2022-02-11 2022-02-11 Clinical Muriel Sparks 1.2.840.1 [id number] Univers 15:30:00 15:45:00 Support Mariama Baez 01687.1.1 ity of 3.412.2.7 [place] .3.444479 MD Mccurdy [facility] 2022-02-11 2022-02-11 Travel 1.2.840.1 1.2.984.834 [id number] [id number] Univers 00:00:00 00:00:00 27047.1.1 350.1.13.41 ity of 3.412.2.7 [place].3.698 [place] .3.9577[place] 084.8 MD Mccurdy [facility] 2022-02-11 2022-02-11 Travel 1.2.840.1 1.2.738.683 [id number] [place] [facility] 00:00:00 00:00:00 83818.1.1 350.1.13.41 ity of 3.412.2.[place]3.698 [place] .3.518310 084.8 MD Mccurdy [facility] 2022-02-08 2022-02-08 Orders Tanesha, 1.2.840.1 [id number] Univers 00:00:00 00:00:00 Only Sofy Brizuela 12796.1.1 ity of 3.412.2.7 [place] .3.062948 MD Mccurdy [facility] 2022-02-08 2022-02-08 Orders Tanesha, 1.2.840.1 [id number] Univers 00:00:00 00:00:00 Only Sofy Brizuela 34415.1.1 ity of 3.412.2.7 [place] .3.341094 MD Mccurdy [facility] 2022-02-07 2022-02-07 Ancillary Vailati 1.2.840.1 [id number] Univers 13:00:00 15:30:00 Procedure Cedrick 10253.1.1 it y of Dai 3.412.2.7 [place] .3.485387 MD Mccurdy [facility] 2022-02-07 2022-02-07 Ancillary EL Vailati 1.2.840.1 [id number] Univers 13:00:00 15:30:00 Procedure Negrao, 07438.1.1 it y of Dai 3.412.2.7 [place] .3.227337 MD Mccurdy [facility] 2022-02-07 2022-02-07 Travel 1.2.840.1 1.2.287.019 [id number] [id number] Univers 00:00:00 00:00:00 45435.1.1 350.1.13.41 ity of 3.412.2.[place]3.698 [place] .3.490217 084.8 MD Mccurdy [facility] 2022-02-07 2022-02-07 Piedad Leroy 1.2.840.1 [id number] Univers 00:00:00 00:00:00 Only Muriel 47989.1.1 ity of 3.412.2.7 [place] .3.660588 MD Mccurdy [facility] 2022-02-07 2022-02-07 Travel 1.2.840.1 1.2.712.926 [id number] Univers 00:00:00 00:00:00 70134.1.1 350.1.13.41 ity of 3.412.2.7 [place]7.3.698 [place] .3.292338 084.8 MD Mccurdy [facility] 2022-02-07 2022-02-07 Piedad Leroy 1.2.840.1 [id number] Univers 00:00:00 00:00:00 Only Muriel 01868.1.1 ity of 3.412.2.7 [place] .3.281053 MD Mccurdy [facility] 2022-02-04 2022-02-04 Ancillary Vailati 1.2.840.1 [id number] Univers 09:15:00 11:00:00 Procedure Nego, 01936.1.1 it y of Dai 3.412.2.7 [place] .3.871574 MD Mccurdy [facility] 2022-02-04 2022-02-04 [facility] 1.2.840.1 [id number] 1096 [id number] Univers 09:15:00 11:00:00 Procedure Negrao, 07098.1.1 it y of Dai 3.412.2.7 [place] .3.278972 MD [facility] 2022-02-04 2022-02-04 Travel 1.2.840.1 1.2.075.526 9152 [id number] Univers 00:00:00 00:00:00 31095.1.1 350.1.13.41 ity of 3.412.2.7 2.[place].7.3.698 [place] .3.995200 08Nikunj.8 MD [facility] 2022-02-04 2022-02-04 Travel 1.2.840.1 1.2.814.090 3788 [id number] Univers 00:00:00 00:00:00 05332.1.1 350.1.13.41 ity of 3.412.2.7 2.[place]7.3.698 [place] .3.099420 084.8 MD [facility] 2022-02-03 2022-02-03 [facility] 1.2.840.1 [id number] Univers 13:00:00 23:59:00 Encounter Nego, 03560.1.1 it y of Dai 3.412.2.7 [place] .3.855659 MD [facility] 2022-02-03 2022-02-03 [facility] 1.2.840.1 [id number] [id number] Univers 13:00:00 23:59:00 Encounter Negrao, 57400.1.1 it y of Dai 3.412.2.7 [place] .3.919066 MD [facility] 2022-02-03 2022-02-03 [facility] 1.2.840.1 [id number] [id number] Univers 12:29:29 12:59:00 Encounter Negrao, 50003.1.1 it y of Dai 3.412.2.7 [place] .3.658368 MD [facility] 2022-02-03 2022-02-03 [facility] 1.2.840.1 [id number] Univers 12:29:29 12:59:00 Encounter Negrao, 61888.1.1 it y of Dai 3.412.2.7 [place] .3.213220 MD Lott8 [facility] 2022-02-03 2022-02-03 [facility] 1.2.840.1 [id number] Univers 12:00:16 12:28:00 Encounter Negrao, 75904.1.1 it y of Dai 3.412.2.7 [place] .3.378065 MD Lott8 [facility] 2022-02-03 2022-02-03 [facility] 1.2.840.1 [id number] Univers 12:00:16 12:28:00 Encounter Negrao, 42232.1.1 it y of Dai 3.412.2.7 [place] .3.183681 MD L[facility]8 [facility] 2022-02-03 2022-02-03 Orders John, 1.2.840.1 [id number] Univers 00:00:00 00:00:00 Only Franky 62333.1.1 ity of 3.412.2.7 [place] .3.461801 MD Lott8 [facility] 2022-02-03 2022-02-03 Orders Leroy, 1.2.840.1 [id number] 7640 Univers 00:00:00 00:00:00 Only Muriel 02030.1.1 ity of 3.412.2.7 [place] .3.753242 MD L[facility] 2022-02-03 2022-02-03 Orders John, 1.2.840.1 [id number] Univers 00:00:00 00:00:00 Only Franky 26989.1.1 ity of 3.412.2.7 [place] .3.640698 MD [facility] 2022-02-03 2022-02-03 Travel 1.2.840.1 1.2.639.475 5890 [id number] Univers 00:00:00 00:00:00 69270.1.1 350.1.13.41 ity of 3.412.2.7 2.[place]7.3.698 [place] .3.870213 084.8 MD [facility] 2022-02-03 2022-02-03 Orders John, 1.2.840.1 [id number] Univers 00:00:00 00:00:00 Only Franky 04771.1.1 ity of 3.412.2.7 [place] .3.995137 MD [facility] 2022-02-03 2022-02-03 Orders Rad, 1.2.840.1 [id number] 0357 Univers 00:00:00 00:00:00 Only Muriel 58218.1.1 ity of 3.412.2.7 [place] .3.243719 MD [facility] 2022-02-03 2022-02-03 Orders John, 1.2.840.1 [id number] Univers 00:00:00 00:00:00 Only Franky 34958.1.1 ity of 3.412.2.7 [place] .3.771027 MD [facility] 2022-02-03 2022-02-03 Travel 1.2.840.1 1.2.396.354 0348 [id number] Univers 00:00:00 00:00:00 91199.1.1 350.1.13.41 ity of 3.412.2.7 2.[place].7.3.698 [place] .3.012845 084.8 MD [facility] 2022-02-02 2022-02-02 Outpatient [facility] [id number] 14:28:00 14:28:00 Darryl PHILIP 2022-02-01 2022-02-01 Orders Oyewuwo, 1.2.840.1 [id number] [id number] Univers 00:00:00 00:00:00 Only Franky 58315.1.1 ity of 3.412.2.7 [place] .3.993068 MD Lott8 [facility] 2022-02-01 2022-02-01 Orders Oyewuwo, 1.2.840.1 [id number] Univers 00:00:00 00:00:00 Only Franky 89543.1.1 ity of 3.412.2.7 [place] .3.496653 MD Lott8 [facility] 2022-02-01 2022-02-01 Orders Oyewuwo, 1.2.840.1 [id number] 58945 [id number] Univers 00:00:00 00:00:00 Only Franky 89445.1.1 ity of 3.412.2.7 [place] .3.411642 MD Lott8 [facility] 2022-02-01 2022-02-01 Orders Oyewuwo, 1.2.840.1 [id number] 91312 Univers 00:00:00 00:00:00 Only Franky 41647.1.1 ity of 3.412.2.7 [place] .3.990490 MD L[facility]8 [facility] 2022-01-31 2022-01-31 Orders Lugo, 1.2.840.1 [id number] 0956 Univers 00:00:00 00:00:00 Only Christopher 31620.1.1 ity of Van 3.412.2.7 [place] .3.817159 MD Lott8 [facility] 2022-01-31 2022-01-31 Orders Oyewuwo, 1.2.840.1 [id number] 78947 Univers 00:00:00 00:00:00 Only Franky 94641.1.1 ity of 3.412.2.7 [place] .3.114684 MD [facility] 2022-01-31 2022-01-31 Orders Tanesha, 1.2.840.1 [id number] 6462 Univers 00:00:00 00:00:00 Only Sofy E 68420.1.1 ity of 3.412.2.7 [place] .3.380847 MD [facility] 2022-01-31 2022-01-31 Orders Lugo, 1.2.840.1 [id number] 8108 Univers 00:00:00 00:00:00 Only Christopher 27361.1.1 ity of Van 3.412.2.7 [place] .3.374924 MD Lott8 [facility] 2022-01-31 2022-01-31 Orders Orexwuwo, 1.2.840.1 [id number] 62614 Univers 00:00:00 00:00:00 Only Franky 77666.1.1 ity of 3.412.2.7 [place] .3.499291 MD Lott8 [facility] 2022-01-31 2022-01-31 Orders Tanesha, 1.2.840.1 [id number] 7643 Univers 00:00:00 00:00:00 Only Sofy E 38867.1.1 ity of 3.412.2.7 [place] .3.881874 MD Lott8 [facility] 2022-01-26 2022-01-26 Orders Serrao, 1.2.840.1 [id number] 4777 Univers 00:00:00 00:00:00 Only Gabryella 62910.1.1 it y of 3.412.2.7 [place] .3.399630 MD L[facility]8 [facility] 2022-01-26 2022-01-26 Orders Serrao, 1.2.840.1 [id number] Univers 00:00:00 00:00:00 Only Gabryella 37818.1.1 it y of 3.412.2.7 [place] .3.657498 MD Lott8 [facility] 2022-01-24 2022-01-24 Office Vasonialove 1.2.840.1 [id number] 8128 Univers 10:20:00 12:33:32 Visit Cedrick, 43169.1.1 ity of Dai 3.412.2.7 [place] .3.768986 MD L[facility] 2022-01-24 2022-01-24 Office EL Carolinesonialove 1.2.840.1 [id number] 5944 Univers 10:20:00 12:33:32 Visit Cedrick, 06658.1.1 ity of Dai 3.412.2.7 [place] .3.749053 MD L[facility] 2022-01-24 2022-01-24 Piedad Wilcox, 1.2.840.1 [id number] 12154 53487 Univers 00:00:00 00:00:00 Only Sana Liu 78590.1.1 ity of 3.412.2.7 [place] .3.614789 MD [facility] 2022-01-24 2022-01-24 Travel 1.2.840.1 1.2.468.319 1988 [id number] Univers 00:00:00 00:00:00 30414.1.1 350.1.13.41 ity of 3.412.2.7 2.2.7.3.698 [place] .3.837028 084.8 MD [facility] 2022-01-24 2022-01-24 Piedad Wilcox, 1.2.840.1 [id number] 52786 Univers 00:00:00 00:00:00 Only Sana Liu 76269.1.1 ity of 3.412.2.7 [place] .3.314771 MD L[facility] 2022-01-24 2022-01-24 Travel 1.2.840.1 1.2.937.932 4037 616104 Univers 00:00:00 00:00:00 79237.1.1 350.1.13.41 ity of 3.412.2.7 2.[place]7.3.698 [place] .3.475978 084.8 .8 [facility] 2022-01-22 2022-01-22 Orders Vailati 1.2.840.1 [id number] 7614 Univers 00:00:00 00:00:00 Only Cedrick, 40919.1.1 ity of Dai 3.412.2.7 [place] .3.548563 MD Lott8 [facility] 2022-01-22 2022-01-22 Orders Vailati 1.2.840.1 [id number] 4992 Univers 00:00:00 00:00:00 Only Cedrick, 58276.1.1 ity of Dai 3.412.2.7 [place] .3.722223 MD Lott8 [facility] 2022-01-19 2022-01-19 Orders Tanesha, 1.2.840.1 [id number] 6388 Univers 00:00:00 00:00:00 Only Sofy Brizuela 22806.1.1 ity of 3.412.2.7 [place] .3.936375 MD Lott8 [facility] 2022-01-19 2022-01-19 Orders Tanesha, 1.2.840.1 [id number] 3733 Univers 00:00:00 00:00:00 Only Sofy Brizuela 06970.1.1 ity of 3.412.2.7 [place] .3.795216 MD Lott8 [facility] 2022-01-18 2022-01-18 Outpatient [facility] MDA MDA [id number] 19:05:08 19:05:08 Darryl PHILIP 2022-01-13 2022-01-13 Telephone Nubia 1.2.840.1 [id number] Univers 00:00:00 00:00:00 Dany Newberry 22340.1.1 ity of 3.412.2.7 [place] .3.813897 MD Lott8 [facility] 2022-01-11 2022-01-11 Outpatient [facility] MDA MDA [id number] 18:08:28 18:08:28 CEDRICK Darrylmary wiseman 2022-01-09 2022-01-09 Telemamy Carolinelise 1.2.840.1 [id number] Univers 11:20:00 11:40:00 ne Pearlkevin, 24293.1.1 ity of Dai 3.412.2.7 [place] .3.477222 MD [facility] 2022-01-09 2022-01-09 Orders Brandyn, 1.2.840.1 [id number] Univers 00:00:00 00:00:00 Only Susie 02850.1.1 ity of 3.412.2.7 [place] .3.959856 MD [facility] 2022-01-05 2022-01-05 Outpatient KINDRA TONY MDA [facility] [id number] 10:31:22 10:31:22 ISMAEL wiseman 2022-01-05 2022-01-05 Telephone Tanesha, 1.2.840.1 [id number] 1095 [id number] Univers 00:00:00 00:00:00 Sofy Brizuela 36505.1.1 ity of 3.412.2.7 [place] .3.378433 MD [facility] 2022-01-04 2022-01-04 Ancillary KINDRA Almendarez, 1.2.840.1 [id number] 1095 [id number] Univers 14:20:00 15:45:00 Procedure Sofy Brizuela 32770.1.1 ity of 3.412.2.7 [place] .3.683888 MD [facility] 2022-01-04 2022-01-04 Travel 1.2.840.1 1.2.631.313 1935 [id number] Univers 00:00:00 00:00:00 31690.1.1 350.1.13.41 ity of 3.412.2.7 2.[place]7.3.698 [place] .3.214289 084.8 MD [facility] 2022-01-03 2022-01-03 [facility], Wade Metz 1.2.840 .1 [id number] Univers 10:20:00 23:59:00 Encounter Sofy Almendarez 92485.1.1 ity of 3.412.2.7 [place] .3.886781 MD [facility] 2022-01-03 2022-01-03 Ancillary KINDRA Almendarez, 1.2.840.1 [id number] 1094 [id number] Univers 09:15:00 11:00:00 Procedure Sofy Brizuela 72903.1.1 ity of 3.412.2.7 [place] .3.760750 MD Lott8 [facility] 2022-01-03 2022-01-03 Orders Sukh-Anderson 1.2.840.1 [id number] Univers 00:00:00 00:00:00 Only Holley marroquin 58227.1.1 ity of 3.412.2.7 [place] .3.858660 MD [facility] 2022-01-03 2022-01-03 Orders Tanesha, 1.2.840.1 [id number] Univers 00:00:00 00:00:00 Only Sofy Brizuela 75141.1.1 ity of 3.412.2.7 [place] .3.971426 MD [facility] 2022-01-03 2022-01-03 Travel 1.2.840.1 1.2.216.524 3572 [id number] Univers 00:00:00 00:00:00 17436.1.1 350.1.13.41 ity of 3.412.2.7 2.[place]7.3.698 [place] .3.259589 084.8 MD [facility] 2021-12-28 2021-12-28 Outpatient KINDRA ABERNATHY MDA MDA [id number] 19:32:18 19:32:18 JOSE wiseman 2021-12-27 2021-12-27 Hospital KINDRA Almendarez, 1.2.840.1 [id number] Univers 12:12:06 23:59:00 Encounter Sofy Brizuela 80658.1.1 ity of 3.412.2.7 [place] .3.392584 MD Lott8 [facility] 2021-12-27 2021-12-27 Consult KINDRA Franco 1.2.840.1 [id number] 7166 Univers 10:40:00 11:51:41 Negjan, 58647.1.1 ity of Dai 3.412.2.7 [place] .3.528187 MD Lott8 [facility] 2021-12-27 2021-12-27 Consult KINDRA Hernadez, 1.2.840.1 [id number] 5711 Univers 10:00:00 11:19:12 Warren 58231.1.1 ity of 3.412.2.7 [place] .3.896814 MD Lott8 [facility] 2021-12-27 2021-12-27 Orders Ramses 1.2.840.1 [id number] Univers 00:00:00 00:00:00 Only Holley marroquin 75995.1.1 ity of 3.412.2.7 [place] .3.936534 MD Lott8 [facility] 2021-12-27 2021-12-27 Travel 1.2.840.1 1.2.698.893 2261 [id number] Univers 00:00:00 00:00:00 24782.1.1 350.1.13.41 ity of 3.412.2.7 2.[place]7.3.698 [place] .3.654148 084.8 MD Lott8 [facility] 2021-12-23 2021-12-23 Telephone Ca, 1.2.840.1 [id number] [id number] Univers 00:00:00 00:00:00 Pedro Garcia 36702.1.1 it y of 3.412.2.7 [place] .3.390238 MD Lott8 [facility] 2021-12-21 2021-12-21 Outpatient KINDRA ABERNATHY MDA MDA [id number] 17:49:34 17:49:34 JOSE wiseman 2021-12-21 2021-12-21 Hospital EL Nakul, 1.2.840.1 [id number] Univers 10:29:00 14:27:00 Encounter Kaylie 97025.1.1 it y of 3.412.2.7 [place] .3.220046 MD [facility] 2021-12-21 2021-12-21 Anesthesia Magdaleno, 1.2.840.1 [id number] [id number] Univers 12:21:00 13:31:00 Event Crystal 88953.1.1 ity of 3.412.2.7 [place] .3.204938 MD [facility] 2021-12-21 2021-12-21 Surgery Nakul, 1.2.840.1 [id number] 1760 Univers 12:00:00 13:30:00 Kaylie 36190.1.1 ity of 3.412.2.7 [place] .3.399377 MD [facility] 2021-12-21 2021-12-21 Orders Ca, 1.2.840.1 [id number] [id number] Univers 00:00:00 00:00:00 Only Pedro Garcia 11962.1.1 it y of 3.412.2.7 [place] .3.294029 MD [facility] 2021-12-21 2021-12-21 Travel 1.2.840.1 1.2.381.076 7894 [id number] Univers 00:00:00 00:00:00 96060.1.1 350.1.13.41 ity of 3.412.2.7 2.2.7.3.698 [place] .3.813842 084.8 MD [facility] 2021-12-20 2021-12-20 Anesthesia Mcbride, 1.2.840.1 [id number] [id number] Univers 23:59:59 23:59:59 Event Jennie M 81833.1.1 ity of 3.412.2.7 [place] .3.750383 MD .8 [facility] 2021-12-20 2021-12-20 Consult KINDRA Mota, 1.2.840.1 [id number] 4227 Univers 15:00:00 15:27:35 Kaylie 57094.1.1 ity of 3.412.2.7 [place] .3.736202 .8 [facility] 2021-12-20 2021-12-20 Clinical EL SharifTammy horn 1.2.840.1 [id number] Univers 14:15:00 14:15:00 Support Yu Hawk 68252.1.1 ity of 3.412.2.7 [place] .3.221597 MD Lott[facility] 2021-12-20 2021-12-20 POEM KINDRA Abernathy, 1.2.840.1 [id number] 9899 Univers 09:30:00 10:00:00 Nichole Fay 95280.1.1 ity of ts 3.412.2.7 [place] .3.897105 .8 [facility] 2021-12-20 2021-12-20 Outpatient RADIOLOGY, MORE FLOWERS [id number] [id number] More 00:00:00 00:00:00 DEPT Seybol d 2021-12-20 2021-12-20 Travel 1.2.840.1 1.2.937.257 8183 [id number] [facility] 00:00:00 00:00:00 75849.1.1 350.1.13.41 ity of 3.412.2.7 2.2.7.3.698 [place] .3.610078 084.8 MD Lott8 [facility] 2021-12-14 2021-12-14 Outpatient KINDRA ABERNATHY MDA MDA [id number] 17:26:51 17:26:51 JOSE wiseman 2021-12-14 2021-12-14 Outpatient KINDRA ABERNATHY MDA MDA [id number] 17:26:44 17:26:44 JOSE wiseman 2021-12-12 2021-12-12 Telephone Josemanuel, 1.2.840.1 [id number] [id number] Univers 00:00:00 00:00:00 Jose Fay 37976.1.1 ity of 3.412.2.7 [place] .3.386768 MD [facility] 2021-12-09 2021-12-09 Ancillary EL Josemanuel, 1.2.840.1 [id number] 1094 [id number] Univers 11:30:00 11:45:00 Procedure Jose Fay 66292.1.1 i ty of 3.412.2.7 [place] .3.851019 MD [facility] 2021-12-09 2021-12-09 Documentat Shyanne Muñiz 1.2.840.1 [id number] Univers 00:00:00 00:00:00 ion 54524.1.1 ity of 3.412.2.7 [place] .3.280198 MD [facility] 2021-12-09 2021-12-09 Prep for Enzo, 1.2.840.1 [id number] Univers 00:00:00 00:00:00 Surgery Tammy 47318.1.1 ity of 3.412.2.7 [place] .3.944330 MD [facility] 2021-12-09 2021-12-09 Travel 1.2.840.1 1.2.364.722 0478 [id number] Univers 00:00:00 00:00:00 07467.1.1 350.1.13.41 ity of 3.412.2.7 2.2.7.3.698 [place] .3.520048 084.8 MD [facility] 2021-12-08 2021-12-08 Telephone Josemanuel, 1.2.840.1 [id number] 1094 [id number] Univers 00:00:00 00:00:00 Jose Fay 92449.1.1 ity of 3.412.2.7 [place] .3.496910 MD [facility] 2021-12-02 2021-12-02 Hospital 1.2.840.1 [id number] 87571 79480 Univers 11:51:30 23:59:00 Encounter 62165.1.1 it y of 3.412.2.7 [place] .3.481163 MD [facility] 2021-12-02 2021-12-02 [facility] 1.2.840.1 [id number] Univers 11:40:16 11:50:00 Encounter 69169.1.1 it y of 3.412.2.7 [place] .3.061535 MD [facility] 2021-12-02 2021-12-02 [facility] Jose Abernathy.2.840.1 [id number] Univers 09:36:02 11:39:00 Encounter Liza Jason 57748.1.1 ity of 3.412.2.7 [place] .3.289585 MD [facility] 2021-12-02 2021-12-02 [facility] 1.2.840.1 1.2.169.709 2332 [id number] Univers 00:00:00 00:00:00 32966.1.1 350.1.13.41 ity of 3.412.2.7 2.2.7.3.698 [place] .3.471519 084.8 MD [facility] 2021-12-01 2021-12-01 [facility] Josemanuel 1.2.840.1 [id number] 74485 03034 Univers 11:56:09 23:59:00 Encounter Jose Fay 24151.1.1 i ty of 3.412.2.7 [place] .3.613051 MD [facility] 2021-12-01 2021[facility]01 [facility] [id number] [id number] Univers 11:55:37 11:55:37 Encounter Jose Fay 86675.1.1 i ty of 3.412.2.7 [place] .3.089409 MD [facility] 2021-12-01 2021-12-01 [facility] Jose Abernathy.2.840.1 [id number] Univers 09:28:22 11:54:00 Encounter Ella Adame 56441.1.1 ity of 3.412.2.7 [place] .3.063107 MD Lott8 [facility] 2021-12-01 2021-12-01 Clinical Ella Adame 1.2.840.1 [id number] Univers 11:00:00 11:06:04 Support Sandy Chowdhury 18389.1.1 ity of 3.412.2.7 [place] .3.943763 MD Lott8 [facility] 2021-12-01 2021-12-01 Outpatient MORE AHUMADA [id number] More 00:00:00 00:00:00 CLAY pollard 2021-12-01 2021-12-01 Orders Toña, 1.2.840.1 [id number] Univers 00:00:00 00:00:00 Only Olimpia Ferris 61662.1.1 ity of 3.412.2.7 [place] .3.181571 MD Lott8 [facility] 2021-12-01 2021-12-01 Travel 1.2.840.1 1.2.589.690 9643 [id number] Univers 00:00:00 00:00:00 24191.1.1 350.1.13.41 ity of 3.412.2.7 2.2.7.3.698 [place] .3.272273 084.8 MD Lott8 [facility] 2021-11-30 2021-11-30 Piedad Adame, 1.2.840.1 [id number] Univers 00:00:00 00:00:00 Only Ella 91028.1.1 ity of 3.412.2.7 [place] .3.215359 MD Lott8 [facility] 2021-11-29 2021-11-29 [facility], 1.2.840.1 [id number] Univers 17:42:45 23:59:00 Encounter Jose Fay 02595.1.1 i ty of 3.412.2.7 [place] .3.456205 MD [facility] 2021-11-29 2021-11-29 Ancillary Ostrin, 1.2.840.1 [id number] 1093 [id number] Univers 21:50:00 21:55:00 Procedure Jose Fay 87763.1.1 i ty of 3.412.2.7 [place] .3.837426 MD [facility] 2021-11-29 2021-11-29 Office Ostmervat, 1.2.840.1 [id number] 8143 Univers 15:00:00 17:34:37 Visit Jose Fay 63713.1.1 ity of 3.412.2.7 [place] .3.881372 MD [facility] 2021-11-29 2021-11-29 Travel 1.2.840.1 1.2.365.954 3812 [id number] Univers 00:00:00 00:00:00 10530.1.1 350.1.13.41 ity of 3.412.2.7 2.2.7.3.698 [place] .3.676051 084.8 MD [facility] 2021-11-28 2021-11-28 Outpatient MORE FLOWERS [id number] More 15:00:00 15:00:00 Seybol d 2021-11-28 2021-11-28 Outpatient MORE FLOWERS [id number] More 14:00:00 14:00:00 Seybol d 2021-11-25 2021-11-25 NPR 1.2.840.1 [id number] Univers 14:30:00 14:30:00 85386.1.1 ity of 3.412.2.7 [place] .3.161370 MD [facility] 2021-11-23 2021-11-23 Ancillary EL 1.2.840.1 [id number] 1093 [id number] Univers 02:10:00 02:15:00 Procedure 22753.1.1 it y of 3.412.2.7 [place] .3.241194 MD .8 [facility] 2021-11-23 2021-11-23 Ancillary EL 1.2.840.1 [id number] 1093 [id number] Univers 02:05:00 02:10:00 Procedure 11372.1.1 it y of 3.412.2.7 [place] .3.491714 MD Lott[facility] 2021-11-22 2021-11-22 Orders Shaista, 1.2.840.1 [id number] Univers 00:00:00 00:00:00 Only Latira 67383.1.1 ity of 3.412.2.7 [place] .3.849201 MD Lott8 [facility] 2021-11-17 2021-11-17 Travel 1.2.840.1 1.2.101.190 0562 [id number] Univers 00:00:00 00:00:00 75409.1.1 350.1.13.41 ity of 3.412.2.7 2.2.7.3.698 [place] .3.859489 084.8 MD Lott8 [facility] 2021-11-17 2021-11-17 Telephone Valentin, 1.2.840.1 [id number] 1093 [id number] Univers 00:00:00 00:00:00 Celaysheia 24331.1.1 i ty of S 3.412.2.7 [place] .3.259516 MD [facility] 2021-11-16 2021-11-16 Outpatient MORE FLOWERS [id number] More 10:45:00 10:45:00 Seybol d 2021-11-16 2021-11-16 Outpatient LAB39 [facility] [id number] More 10:15:00 10:15:00 Seybol d 2021-11-16 2021-11-16 Office WILDER Holloway 1.2.840.114 [id number] More 09:30:00 10:00:00 Visit [facility] 350.1.13.13 Se ybold 1.2.7.2.686 [id number] 2021-11-16 2021-11-16 Outpatient BRANDYN [facility] [id number] More 00:00:00 00:00:00 CLAY Seybol d 2021-10-28 2021-10-28 Outpatient BAUMANN, [facility] [id number] More 10:00:00 10:00:00 FATUMA Seybol d 2021-10-28 2021-10-28 Outpatient [facility] [id number] More 09:00:00 09:00:00 Seybol d 2021-10-28 2021-10-28 Outpatient BLAKERohith [facility] [id number] More 00:00:00 00:00:00 LEODAN Seybol d 2021-10-17 2021-10-17 Outpatient [facility] [id number] More 10:00:00 10:00:00 Seybol d 2021 2021 Office KEENA AHUMADA 1.2.840.114 [id number] More 10:30:00 10:30:00 Visit CLAY 350.1.13.13 Se ybold 1.2.7.2.686 [id number] 2021-09-27 2021-09-27 Outpatient [facility] [id number] More 15:00:00 15:00:00 Seybol d 2021-09-19 2021-09-19 Outpatient YUVAL [facility] [id number] More 00:00:00 00:00:00 LEODAN Seybol d 2021-09-14 2021-09-14 Outpatient LAB90 [facility] [id number] More 11:50:00 11:50:00 Seybol d 2021-09-14 2021-09-14 Office BLAKERohith Odin 1.2.840.114 [id number] More 10:30:00 10:30:00 Visit LEODAN Vega 350.1.13.13 Se ybold 1.2.7.2.686 [id number] 2021-07-13 2021-07-13 Outpatient YUVAL [facility] [place] [id number] More 11:00:00 11:00:00 LEODAN Seybol d 2021-07-12 2021-07-12 Outpatient MORE [facility] [id number] More 00:00:00 00:00:00 SAMMIE pollard Results Test Description Test Time Test Comments Results Result Comments Source Research Protocol [id number] 2022-09-12 20:28:20 Test Item Value Reference Range Interpretation Comme nts Research Prot (test code = 7189) [id number] RHIANNA (test code = RHIANNA) Link with existing labwork already scheduled. [id number] 2022-09-12 20:28:20 Test Item Value Reference Range Interpretation Comments Research Prot (test 899790 code = 7189) RHIANNA (test code = RHIANNA) Link with existing labwork already scheduled. [facility] Center[facility] [id number] 15:05:33 Test Item Value Reference Range Interpretation Comments Total Protein (test code = 2885-2) 6.8 g/dL 6.4-8.3 [facility] CenterALT2023-03-28 15:05:32 Test Item Value Reference Range Interpretation Comments ALT (test code = 1742-6) 14 U/L <=33 [facility] CenterFractionated [id number] 15:05:31Bili Total<0.3<=1.2 mg/dLUT [facility] CenterAlkaline [id number] 15:05:30 Test Item Value Reference Range Interpretation Comments Alk Phos (test code = 6768-6) 124 U/L 35-104 H Lab Interpretation (test code = Abnormal 90133-1) [facility] CenterAlbumin [id number] 15:05:29 Test Item Value Reference Range Interpretation Comments Albumin Lvl (test code 4.4 See_Comment [Aut omated message] The = 1751-7) system which ge nerated this result tra nsmitted reference range : 3.5 - 5.2 gm/dL. The refe rence range was not used to interpret this result as normal/abnormal . [facility] CenterAspartate Aminotransferase 2022-09-12 15:05:28 Test Item Value Reference Range Interpretation Comments AST (test code = 1920-8) 18 U/L <=32 [facility] 2022-05-29 20:55:42 Test Item Value Reference Range Interpretation Comments Submitted Clinical y2qkfKYqXEGkt9joHLMrqAMb History (test code = ZzEwMzNcZnRuYmpcdWMxIHtc 48280) xqIaTHlnk4OpN3ZiZzDvCOhk bnNpXGRlZmxhbmcxMDMzXGZ0 yyDyBMTuAQiuZZAgZLwoYb1i xIKmqBdiYwKwWOJon5chjhTJ rlohuOe7z0ngBGAoDyJ9oNTd BHetY5maztBuuMIyLFTyZAp7 aR94LMOjjG9stJKqWFjvzaBa DtU5ZUzzGBHgYwM4HMOhvLAi WDIeS4fvDKHbVLebEQMqPSob aBKdRQG4oNdox4U6nMLsrQEb dNuaGwYwJoPqOxNPh2NuZLt3 sNvyC6NlAYNbFcB2cDLkCNJb MVveZGUsZLRbcuU1dS73MAfc bvW3aYNmv0Itg73tg161mK3m rLMqRDU9FWXmQBHbfPLhGPCp OXT7XNWvqJHtT3uyTFCcLN6a czveBQzfYEizAAJcwYP5YOXy pDVgN1RpWFDlFBuvNWSxowg5 KpVdQy4nnVQraJtcVRuyc4jg q2tezUEoZvn0JCTkClShSpbo PVdvf7Cge0ozBXXyyd8zGHR1 iZMxsFcgs7L6xDUkVZGseKFo heVgDYPpXbE8WBkuWU6lzc88 EFSkPGZ5yp1pbFQwkBsnloWy tFTsHJkfB9RsCNKfv999AOJf T7KcUEWxd5E2jkXgXmGfXARw eWT6onM3ZFPsOEh8fKZbosL7 heBszKRaN7ejzQ1eQZHySV1x rwook4bfQCnfCKgjWVZszWX8 omC8BWInmSApY1CqxE9uCNKq GYvqOKLbxhg9QxZmYv2lzOPk eTcyMFxzYmtwYWdlXHBnbmNv bnRccGduZGVjXHBsYWluXHBs YWluXGYwXGZzMjRccWxccGxh aF2hGaXjWaMwFHamSH5pGMBd R2tmuXAuWVGtKGOwK2wgJmLt sX3ckDneCOzpmvItFYPiXC9v Y0SwZ4ufw47xBEVWA4Bcv5Hc fURdRWVkaP9qTGeqxXDgWkO8 XHNxdP1zR1UkBJ6oIu4dzTie uZ9vZuPhOcOqSyqaUU6kMCFd J1owcWBuZEGsKVKyB1oaRmDy gE4phHqeMEzkfzLfMVFhek36 Diagnosis (test code v9pgmQVjTXLoxFLcQLDrGgyd = 34) doPgBNTrnHEvJ4EokhdkJNjr XT3pEV2vrJswqZLjgNCaLPCr TyWvc0pin251zNZug8ufMBUV uuphpIo7yHjhM28tz8Y7Qtvu P37yxHHcTTX0BNXrQTCgbEVs FDXvDJN6AXGvdYWsD9wxLRHb AM7rhiwsCWhiJQsxOEKzhWW1 UXAyeZYvW1OvQWQrBMplMNRv ajp6CwHdSi2gnLUekFruBKry XCUjZTCkXZnpYNStNmMdRT9q YJhvqFdpkq5qTVdgp1KrWA6j qVxbSJX2NntdUNUyeKBtRQ6q R2Q3hDVdIIYsanW9hR8txd7k gAZpHCYrczIXEiNHoH3gzGPa u2FiNIBwQPQ8ZYPcqFnrhwpp JRWEIuitCNAtkBNwYG0oO8C0 iOExVJUxpeV9xL0ajr9jbCVm JIJnbaUBUkXIpN0kcBIfr9Ze DMAxWXP3KTPfikVphdxwKlJg LCAxMUlccGFyXHRhYiBOZWdh pEo2BHDls1UxiVHez0DkQCGr tlvmVJMqRK6pRAskfOfbkz4t QMwbyGYlSY4dv3C8rCNhNPZ0 JFBgkkb9CALoFsQxUVPhzkHi Cb2kMFO3jZ5pBjyiXRUlyAQk JVTpWBt5cEPoRD8tDQYbVLL6 OvKvvabmARjyFCd2RFXvrao4 JVTwCcNgMGTvykGtEu4cOAI2 wT2nLqcnTANrqKTaGDXhCSd0 ugsnKLovJnPfhVLySJPycL4f EWiidK7bEKC0s665QxopMMTs tNUgNSY7zQJas4u9DYMpV7Nm rbfoGfZiMKPwp0PrXvimby0s k8gmFZqusx56msTpV7EiOPL0 tNEhRWOyK6OrNZsdZY99GEDv lQpxhjLlI2Cvc79iEQ5lRHfh AuemuP3pjI4waHKkoXJlT8Fa LlxwYXJcdGFiIDIuNCBjbSBp biBncmVhdGVzdCBkaWFtZXRl dx0hoWBmNKCsJgJIwlBzVEZs ZZQkpZD7mGVzpAZccMBeg5Rl iAHvcHGdtxOtBhefXD2qcSZd XTTlWaNHpw6iL0ejADfiFJ6j LVNltxUgN2r3vLFkWH7joskj rjZhJDDuJD2aN1T1yGNdGMKb ecP5cU2dsj6iyTObDOArOmJQ wEhhdZScgX1uwHJgd9UfusHs nyLtkhQlDQZeujBkHy7fUAR2 pD2hZExaQzebPABiadv4ESRk cGFyXHBhcn0= Synoptic Checklist LUNGLUNG: RESECTION - (test code = 9864) All [id number] Edition - Protocol posted: 04/27/2021 SPECIMEN Procedure: Lobectomy Specimen Laterality: Left TUMOR Tumor Focality: Single focus Tumor Site: Upper lobe of lung Tumor Size: Total Tumor Size (size of entire tumor): Cannot be determined Histologic Type: Histologic Grade: Not applicable Spread Through Air Spaces ([place]): Not identified Visceral Pleura Invasion: Not identified Direct Invasion of Adjacent Structures: Not applicable (no adjacent structures present) Treatment Effect: Present Percentage of Residual Viable Tumor: Cannot be determined: 0 Percentage of Necrosis: Cannot be determined: 0 Percentage of Stroma (includes fibrosis and inflammation): 100 % Lymphovascular Invasion: Not identified MARGINS Margin Status for Invasive Carcinoma: All margins negative for invasive carcinoma Closest Margin(s) to Invasive Carcinoma: Cannot be determined Distance from Invasive Carcinoma to Closest Margin: Not applicable Margin Status for Non-Invasive Tumor: Not applicable REGIONAL LYMPH NODES Lymph Node(s) from Prior Procedures: No known prior lymph node sampling performed Regional Lymph Node Status: : All regional lymph nodes negative for tumor Number of Lymph Nodes Examined: 13 Rebel Site(s) Examined: 7: Subcarinal Rebel Site(s) Examined: 5: Subaortic / aortopulmonary (AP) / AP window Rebel Site(s) Examined: 6: Para-aortic (ascending aorta or phrenic) Rebel Site(s) Examined: 10L: Hilar Rebel Site(s) Examined: 11L: Interlobar PATHOLOGIC STAGE CLASSIFICATION (pTNM, AJCC 8th Edition) The suffix m (or a specific number) should only be used in the setting of multifocal ground-glass / lepidic nodules that histologically present as adenocarcinomas with prominent lepidic component or multifocal tumors of same histologic type that are too numerous for individual separate synoptic report and that are not better classified as intrapulmonary metastases (e.g. numerous carcinoid tumors). Multiple primary lung cancers showing different histologic type or different morphology based on comprehensive histologic subtyping are better staged as independent tumors without m suffix. TNM Descriptors: y (post-treatment) pT Category: pT0 pN Category: pN0 Gross Description l4owmCZcBWLcyCHLNKZuLNZh (test code = VD0ndVwdkUa1sGadWQLylaM3 [id number]) tNMaBSbue1pyBEG6e6qrexYP DpcaXMNoGC4eCKyvOOYmXG8m ZmUwXGRlZmYxXHBhcGVydzEy DyXyGZHryHPjmTC0HTSzAG3u lwdaPUixRNdePYCewgL2AQOz hAGpZ4DcDIYdXT8fpoebGTY5 MBRHPqioGj8qvEZsdCovZiZh ZmNoYXJzZXQwXGZuaWwgQXJp LKr8xZ5KNvqnI05qd9C3Ztm3 CPDvJWIcM8TzDG7jEFAwsYJm C28PSbspLMS8QLRNLtwbJqbw bMmeo8RhoVIcEQAqLNxhuHJs NTEwMDAgXFxkYiBPVlIgIiAx QVZoZEX7MaT1AOx5NLSQADMe AhB8BpQ4ICQ0NIu4ITBiOI2d MHvzmNRjVOnxXujxJVhmC112 KLrvGYWaQ2LiN3NoDEzdHcGw YRhlENWeEVNpJOyeJCJiQ0GO LDJkTSW9GqopEmXqQAq2MKxu E2LPZDNcSYO1EbG4Bpq0ByF5 EDy5FFZRAz2fFVSmMeA6SNM9 NpS9FTR5LCDaGXSuFlVcOCDj ONRtGEiwkSKqHJ6cwZwsCITo TC1LFEAoZTphJXLuVeInVWRG OlxwYXIgDQpccGFyZCANClxw rNKgadnyIHZjDePjnMjxaZ1b aARkU9fvGnPtAlujaNgvNtFo dERvYzEgDQpcbHRycGFyXGxp bjBccmluMFxzYTMwXGVwaWNY r2NzWSLTXuajGLGkSDhuizBs ODm4eNWjRN7xNXCqepjqQAG7 JgUikbXkCbjlFGuvr3IgBtCm RWVdHSV9QMVfXWIAy33kuFV0 ilMcNzKrNGRmRD8uio34liRr kO6hvVLzh8AnBPevAbuhnQVc TmHtqJMsOgShH18xIaQoJRro IHNwZWNpbWVuIGlzIGVudGly WKb8EGX8Ah4kgBMyWKQujtCn DABaHAP9PPAJOD9bPLvdvz01 FIY0s2zgeEVsYDxhGpgdiFAa pkB8JAwVJEKWQTfQEfAkDE2z PUxJTktCRUdJTnwyMTAxNnwx dIUQFXZ8KDmxeZlftPl5l4lj fOFyx8k7JDquBWX5aA1Ev0sf oSYjEDviUgdxrRIljvV8TSgJ HBRQFXfDHbMgJI5xPDcOXmgJ ZrB0ApPzGBB7RPcGL0VKhBV9 Cod9QBy7bGmhKaqrrqGzaADz QsVAgK0ozBiilO1mtVEyD1mb ZpViOKNJGbozIQKhDZMcU1tq PSUfPGnwZDXfA46no5JHj7Li d6vnwOchy1FmdDPyKQ2lyHCd IO8Ap3rlKQFsrJHjSZN0NBjk d4zaGQwlHRW1QBXeUrUzJBXn BE4XPxUdCCHrAUA0WYgvGBm4 ERe4RM2YXyVhUHRfBMBkMSN3 ElEeJAy9HNrzGC2YEZHuDKKd CSHgNUinRLNbFciaBLc7GWPo PUoqmwGzGQbbAoxtPZktB49f h3AbZGUiFMTpQ2ytGmMwJEAY ClxmczIyXGJcZnMyMCBCOlxw YXIgDQpccGFyZCANClxwbGFp blxsdHJjaFxiXGZzMjBcYjBc ZnMyMlxlcGljTmVzdERvYzEg DQpcbHRycGFyXGxpbjBccmlu GScaRaMzLEWseLAMi7NsJOnv MRGmQHXobDBQx2FlOQHQGkya YXKkPNphizZfPFd0kLXeVK7j ZGUocyksIGxlZnQsIGhpbGFy RQEfQXokLI8bXZZnSWbhOwBu ChzeVIWsU55qe1hruPAju2Bc EAM1BBqot4kucFVkQEl6lDPh IX9qLRVfWMJgRFIqbKvfSAMR nLVfo0HeK3xlRY4roDKoAM96 mCIagDosu9IokLi1wGBoMUfu TXQlc0ZcuAGyNMHuOeArLOEm f8TsW8R7QEFrVPsju5dfOXWs TLtgs3DvVKpQYCJIJE2RYE2z kAD3OSzMZ2KZG8bAsFCsFPL1 iGK9JYDORzbsgZA0uNI8dZ22 SFCwNLLniIFlHXomF427DEi6 LHVxAZnuw7myRSSaEYecj4Dx EZqLXCSMOE9BKK0khOB7GJqI E0BSNJebBRYeDykulSIACOA6 BGumfPwqqFj9p4jvoCEcm9o0 GYotGOR2iMywjGWfkhpyxIUe zHepntWjFY9GJLOvfzFxbYZz cGFyXGxpbjBccmluMCANClxl fEbbJvVtfZGuZaY5THUaxMNu NSF0ZZ7neTmiHDUsYVo8CZtk WKTkS9OgU4EhBSijFbBfCFzo PRPxIMRhLUmwBBQfK2NRJESm JGR8BzuwUkTaOMu6KCzyZ4TB FKYeRCP8KbB3LoO7JzB4YRr8 UZJBFf2mCRRuTnQ1LZtbPtK3 VXE6FETrSHIaGyOeNWAmLYSf VSyovTXuUB4qdPauVeGxPJxy rBukHWGsEAZ1QT5BYNKzYsKt GzmveiFqTRB2BFYvkzRNAyul VNIqLK4HVUUgUFukIJi8kwSz XGJcZnMyMFxiMFxmczIyXGVw oXTBEKD3QD9yFRXTLkwnwBKs ZZWmbMjpWWsmmI5lXOBmBbNb PHRoC8wuUbNeXQLoUqHrRCNl H3uuOYIfZM8MFGOaJ0GsQPYr VvVbMOixhEaadh2aPUkuFDak ePSgtEngxA86NJAsi0Pmtmld KYXrAIRsbwKoCxCmH6YpCDhm EfJgQAAbvqNfl0ShFM7sWRW5 msPhFFNmEkGyp77xzHifjRxp um6wGVShNRJzSOTmdvEbHU55 LYQzLS7mRTKxNZAthJLseG8k biBpcyBlbnRpcmVseSBzdWJt sQO7JZMeqV8tK3Bqj0H9gMQc QzEuICBccHJvdGVjdHtcZmll qEW7SHclNqprpW3qtWROWXEV EkkHBshtllQjAX5XDN0RVcTK FV58TdXcISL1BJqRP7SGcIK5 Pkr9AHt9mFfnHtwysbMefAMv TdSDsW5UXGydWbzvpGA7GYik RjmuoR2flKOXTANWRyeHFouk egUjID3KCB0WUA1RbPMvERX4 gYC3FDMCFgituKR7sXP1eU14 RLChXZGevGRnRIssO971ASEh OXndROk1bmApXJAuYeKcZXgh cGFyZFxsdHJwYXJcbGluMFxy qP3eWG5HMXPlkRZKVZM5XL8r JLzcATUfV8UoM6OxckU7SGXg ajLSWmssJikqiLggd5QvyIDa XHNnIFxcaWQgNTEwMDIgXFxk YpTITcRwNmGdNXVzSVS9VjQ8 KKw4PFIPNtYeUiMxNFJcSmh5 BWHqMWe6OFf7HEpVZmFrExK5 NVLcXJW3VPQ2REf4FPqjdMGu NEzpn4QoYzAuXHOyZGssteD5 HYQoVSF4FMOkiJLIk9SaFHEk DQpcZnMyMlxiXGZzMjAgRDpc hJCqMU9HTETwahWrOHwdyEjc rV0hhZShZ6nlJiezawVyYKYu KROyYxHuCSWnM04cf5UWz9Qe JH5RFUa1nfQyuzkotJ6tFCRf srVxb1HcUGqjaUhwTHYoOzOt j9DdRFlxzUnhMAJhMuQhTJwo BdlySzNvMjGlSTZXdE8uwAYd x3NaNUMeBWWoAANyEMYyzmLc NpdxSljzy3ZfWeNeS7GlLXla P35nq8ikmZLvf7QmlCdiCZEb qgGtZYRha7lvEDp8pGDaMP8o GCGyAnOeYZlmDdZqV76pOgOh VGhlIHNwZWNpbWVuIGlzIGVu wFhaQCd9IWB2Ej1dtODgRZXr whAtNPDuWDR6DCLFKG7gCEjm bl34IMQ2i4zrpZXeFSqyZvbu mFDaqaB3AOaOBEHPUYvRDfUq BT2nPCuVFyeCKEuCGhmfBCRy LkwjwAPLFFB2HKmofQrjoRi2 t2vsaAZac7f4WKnqHPB7sJ5T p0eizQXoNHmaAonvxXZnzyF7 ACiOOUPEQUwBDaSfSR4aZEqA SrhVBqO7QzXvPTI7IGsQM4WU yVT9Jka3KZh5eFhuClmaddRy yUAdEePPeK3vlMguiL5oaURa P3mgBeNhWNUNNwqpOOAeDZw7 jgLeojqbfX3fBUHzapYrSXds TVJtV06om0VZb7Tsf6xtbCqv g9HtkDCoAK2wvTDoFN8Un3ml KKWmbXUzFWC3SIvgb8mxMLmq QKH7YBShFpOpQSAsWW9JQgQy OZYiMRA6GPkeVKr1WIm8UH4I ZdPkENFfCHOyIFv8WwKdOFl6 HDyrCE3ONSWiGIFrFRRrZMVs XGOkMzaxRIo0OUKoUHmzulSy YRypZnkqEFjlL46uv8KiIOPi HZBfU6hsKfQcHZJVYdfmzkNv XGJcZnMyMCBFOlxwYXIgDQpc cGFyZCANClxwbGFpblxsdHJj aFxiXGZzMjBcYjBcZnMyMlxl cGljTmVzdERvYzEgDQpcbHRy cGFyXGxpbjBccmluMFxzYjMw TVWvqSDIo6OiAHalRGHlHASu oBKBo7AsXXMFTyjuQURzCWce igTtTTb7kJBjUJ2qIZWodvum JYF7ZbYegidwHFyzKCrrDN6f FTFwGBAtWAL9DZWgNEPNr26k wUK1cmJqSzI6q15oaaJqENIz m9jxNWh5uXJiDO2jKJFoMHyg GoKmTU9yCOApXsJkoElpWOLW hCFgh2NkX2wfUZ4bxPIeZT76 iZJygDtxd9PdfPo4uIYjQNgk FMJxg2WcfGQcABKmGhNrEQYn l1PzG4Y9WPPyKUyqq8xxJJMz GWxde3EtOWqWCQXUUN8MSH2t pHG5ORtLL8KFL8jLbIHfOGI1 xAQ0ACFBJvdiiQL8tPN4gX94 OWWvJLAwyTFgUVdzK806ERd5 WALtXGlox9jcAUMgLEkcx5El TBaYMTGJGD7PCV6nfBJ7WQsN B7DEHNbcFJMnEcxvzDZHZNF2 IBpuaIgxmJv3f8vfqYTip2m9 EHckLYS8lFiupYHbxppyeWGv eSwodpBmBI2GCDQedwUwfXQx cGFyXGxpbjBccmluMCANClxl kKnhWxOsrIUlXxU3IANbuBTl JBD6HS9ftHdcHHMjEFh1ZWoa QPHoB1YtJ5LzEWvzIuAmTQun MKVdHHJnNVwuUYCxE7WPAFIw EJL4HnyqVwLzEPy5SFonR0HR AQXiYHK0XaR9GBZhCgL4YOk3 THHHNg9yJAKaWjKqGZP1BpF5 LVE7ZZPjNJXjCuSkZCCeLHDt TLwlrXXcYN3ozDrbRoOsHYel eDhbVXHiMCF7VO6PJBTqNlKz EhxahtPhTVX8RJNvyuWRElqb IGUrSK1AGVDlAHdpECq5gfFd XGJcZnMyMFxiMFxmczIyXGVw xPFXGFB3BC6aCTNVIsgjfZJn WMErdUnhCTacmY3jTOKnGqZy XOJbJ2gvInVuWY2LVZLtV2Oa XGZzMjAgTHVuZywgbGVmdCB1 gAKtpnZvh2CnNWOqRIR4UFEi hKPoYQpgZvNhdG5whR3bSj9v Rb2iEk0nZw0uFy3yujOyTNtk JtYrGcqrNCAhPXOjIQ4nNBzt NG42XPloMn9gNQQuFFhuOxPa zXLwOJVtgVNcAvDjd3XjOUsn rQszUHA8FsFsU36aT8IwyRAz ZXRhbGxpYyBzdGFwbGUgbGlu DBUothHrOF17BZHcAKwmWMjk AJFcHJOzXOLkVWGcnfYcjQ0t kUSwLYJlP4Cdn60tzUKzT8yv LiBUaGUgcGxldXJhbCBzdXJm YWNlIGlzIHBpbmtcdTgyMTEg COk9JnCrUFW8kUSnGBTaVp1k LUniiHMni2PnDLJqDQIsYSIh SW0dMDMtOMswJGkiFDA5AGH0 XSTzcZDce7tuoacjPVUntmPE XvqoOlUeAZBhH7dlHoLzKKlj zOApTOzqPMSoQEkLdKSjd8Ev cGxlIGxpbmUgYWxvbmcgcGFy MT9skCxzPFalfQZvL6goEOux r8WtYeMNaVAml0GtG3alUY4p mYSqw1HbnEHjfZayr1EsdDqz weAiVMHsodNtynHcJ7TjKXEx yY4lcCmgFQ4mvtlyyeI1rmOm ZXZlYWwgYSAyLjQgeCAxLjMg qFUzYeSgT71poXTrGSk9VBTb SOUhIhv4I0YrhLodYtgyaAlj sUxkTCZvWvqwTUUoaq2kvUat JEzqyGemYKSkOZoyJRL6DnXl EXqvXLL2RFzax4yqJ4W7HVD5 dhUcO1Aej8u1lM74sLVyFJ6q feIeLIqlBQ5hIW6tK9Ubt2dx WXToBnGmD80oAnXolWI7aVYr jpYwwuVgdQOtGXIgxnAyfX6o vHVcYWZlC6Tev89kiNZgN2wh UNKfXfDeY33pLdSnhTR6rPSl KdOavoNcqZWkABZsLNN5HDDd xSkfolMrATLxfO1mTN7bABT9 oSNuHNgoTjX8bnG0lDEosRTz f6McNBMesRyheFIsEnWAzQEx xYGkibIwidDmh2AqlG97h4x1 FFOuk9p9eOM4iNFdaNxciAJv sDEdzGXlBLFdXhHodUBtCO4F ITVclzRFEfHvJES0xgqwyf4l fqAaNPg2duqwhOCvAK0emWal VVGduvVqhg1ai4w6AUDoajOu PKDeNTMuWS0tLN53aOFalNhs CIRfkhw4MTZiBGDuZpy4Wtxj I9pycQ7ns3khpHKbaScreQrq bw5iADXqwIQnirLvZwvjDMUr NV9xoR9tLKDao60wXF1yBAOq IDAuNiBjbSBpbiBncmVhdGVz yWNjzE3crjBhy86vUKUptsGZ LbiqLQTyTGgCRwtcU46RORuh KajeG3nvtWfmTKIxzwCmJ3g0 rXDcpfNiYXZ2uG0oWU1ltuik taJagE0lRcV0pRCit8EkqThl UWdsgoG9OEYymRVafApaoGBj SeMctfXtW8SihCppOJZbIMc3 RsjqiQKzFWUfPJVgWZZ5LSKw uxUan0RcuLMaYzN0hTLiUfJi uxTfyKYqNUGkEMD6MBBwnKco bmFiPRCcdK7qIOLprsSMExjj YOPqOAVcdJORz5CbPZGYTiYZ B7SEB60tL98MGOiaVbJrXYNl u71jbHtwkWXsAUWuaE7yDSCq GHOzO3R2DVWiLUX1IBLdjMfn zhSvDMCmuX7tLJSkGVMmN5I4 DXBbXKUwl4T4jRWxf6k6dKEi PUxdH9FjuASrqFJ4koI2YVE4 YFH7McViFPueLQEQRDyzYS29 kSAtkJhim6BypCx2aAYxSP3p DUUaKIYoWN3fwS0ndffolx0p dWxlIHdpdGggYWRqYWNlbnQg xPYoVbZlNNWhnlXepX6gRrTB PIjjoYNdWfKvHLAlltZzpY1q EIEsnlNxBP41YTAxKE2eQPPa GRerH5csx2ZxfF9orXxpUM6w tcrueqOzHyNbsmTvHZ0rmfRn GH5xNUDdJGYzdTQugSXaaOxy UUqyYdBtRUS7YwXsKShjMVRE PFInUOWcwYKvl5IncCT2kRLo POKaN6Qmp75tm2IjgI0mdxHi iGAhHDWeZDJterYtrU5hML1q PRIpERKkwH8kQtHJDCBdbUel OKGpEFb9CfLmZpggUDDnqGBw u993IQebxV5gTGVjuR4kv3tf mPXqvIaryOnzzk5rJDH0ZWEy YXdeJpZxv0UsnHKwPVMokD4a tVVbw4Wnxb5rHCnOHBneg4Kq VMSgnIOAz4SdPP5VAJXgfBBW CIX5JX0kKVsiKYYnY4GkB6Ci pfO8q7bryXmew1EklNRqMZ7f tPXoWJ2FWEQyXvMiWMb5 Disclaimer (test code s2ariNPwBMFxnWIrKhXbGOXk = 9844) RMVmn9qdMGZwwZBfDsYbScQh DiKcOxvguJJrFQJpCuGld3nb b073kBDtm6nlKEFiGlN3nRNm RDFjvCInS506VCDdDHxzm8nf p0HbDVHdjLApi5D3JYYRoafm nYq7zAurF20cv5C6OgolL9ai ETPqVHJnQ1HpRB0cDSBxKog3 IUI2IVH3XVViXJIzQ3OlJP5n VSPliMVdMSi2b3sbyQqiTAOe HVT1y1sfHTdzteLdXR9uph0t oTs7s7xkbmXiIHGxTIDcbAOU JDLeK4NsxQalRn1hpXj1xHmr IlnvAWX1Bvf1HE6dia84xab7 mMljKOMmantdRyC4WZkvDKOq mnpdQCi6GHhsBUFgeGU9XWNw jWOnX9QeONCtUS0amzo0LYA0 TKmgXQJdLyR9JPMiaUXkJVGx kBvdAZjue313DEX5PiBqDP5c C7Esj1R2pS9luERhXNYctWDx RdQzXOLpla0ymZBtTUzaq3Th BHB2wlI6iTNbgWTcYFRjCO25 Zxbya9JqAibfYHC0CBGfjvDj x5Xne0xlNhWmikZpZ8cuS2Rp PUPsNAQpEFSdEeJyfuYcj8Vb w4OwtCStxIa0s5ejTIQvMBIz aRkef8kfUHL5UAThH7I7qVUl j6eeJMgvEOPbhZL1qgP3KYKf hTQhO0WfrM0pXWLcWM2zctq6 k1vpZNQ7UFbzVUOeSiA3rfY8 XQQyaIFzFRUdyOtiOIdfx863 BCP8AoXoYRUkj9AcW7JwjRya C94qmQlvD29tTPKxeHlreU0x tHzoyU5bObBeBfDjADekrFgk dEHivhfbEYpovgS7TUxddfge LWLdTZcqJ9fyOlXqJFNniPdh FGhlk5MfLNMkOHHqMvnisgL8 HMAUo04yYAYuy3LhCOTtyQ1z zSPcNHbfgvCsdBX1WZwtvlKz YdFyuzJwHFQzdS6bNTHuOO6n WUYreuNsfc6iigUxDRMrJLSp F3LncoefnBelwcLvDNExkt0y btLlGPJ8MYXOAO9CIHGpABMy k65tAFIpoZvtwF4ltLWtxrMq JTPcq1FjzX0huRCOTYLpV7qn PK2bJCtje7BjyHEgwLVyiJT1 AXMqr6WpKlEngtWdoLDyeLXb X9CjxNhaD3nkMCTzBPWbuqHm wYHqy9PhSOTgjAJ9hPQqHN5T GzNHw61rPAOpBDUSlpJxPKHp uFglbTZ8mkG1mE2nJrFSOyOh kFXipEBiGshrMSVpa266fa0x ptR0WUItKHQergxsm3AtNSKi BMXvhI31BBBuWHIqrp8fwqds mWCzbwZlH8Jgvlp9uU0nFTTs YWluXGYxXGZzMjJcbGFuZzEw MzNcaGljaFxmMVxkYmNoXGYx PMhrO4zqYcViVtSlMsenSTI9 [facility] 2022-05-29 20:55:42 Test Item Value Reference Range Interpretation Comments Submitted Clinical j8zcrJKeYQTuk1dxGTXmoFVu History (test code = ZzEwMzNcZnRuYmpcdWMxIHtc 98950) teOoJIssq7BdY4NcAgHfBNdd bnNpXGRlZmxhbmcxMDMzXGZ0 zbDiPGXsYRkoVXIsAHeqUm5p oNWyfJurNgTpATKtn3pkchXH pfalkPi7x6wvNJWxWjE9bYJj SKjkZ9ypxbYkvBNkNDTkXJi9 nL30EMOgwO2ycBSuLIxkpdNp PxM5VAoqGLPsMrL3VLWjsEEy OUTlN6xkAOYpSExuDDQoYHch tKVmARK6jJcxv3R3aXUxhFMo sKjvClZsOxHfUlUOn1MjGGe2 jLnxR2CmTXCdIoX9nHGjBOPr HEtgXLGyPQPutnW0pQ01ZDgj bzX2lHFrw2Frd33dg977aU5i xGMrWUB6UJNfMHRreLElSHYy SEO1KVCrnJLoR4etMZVhUI9f zwghKIahCGrjBNPgsQW9AWWp bDXrP9DxCDXnKJzjBKXuhdi8 RyGjGf7sqKPniQmoBEfod5mk q2qciQOkYyn9STNvIiLnLkpg VJfdy7Cee2ocWEXyea6fOJG3 fTDivBjlz5X1qEJzXJHkrGOv boYpSGQqXlS1SGubAS7zzb20 COTeSVK6ar8bpMWgjAgzymOa gEEsUHkvV3NoMPFps169ZXFj K4PkCNRit2B0khPdThDpIOQb eTJ9ptI9WZAdMOa9rQFksdC7 grJxmLNsF9rblJ1dJRYdBJ2q fgvzj8feHRfjOFrvVPJoeCL8 kgJ5FUFafLWoJ2KkzB5eKUMx OMyrXLHoykx3OeXlPp7xqVVd eTcyMFxzYmtwYWdlXHBnbmNv bnRccGduZGVjXHBsYWluXHBs YWluXGYwXGZzMjRccWxccGxh nN6lIcMhKkQuUCemEH5rKABa Z6xrgPOnKYXmQHHfO4xrUyCa pO9ncQuuWVaaziQcZEXfCR7m K6NkH4zvs62jDZWUW5Wof4Sy kFJfKFAxyT7tXAfthOFfTzN7 YVLjjO6vC8WsJC4aEe7plNwt hU3wEoNfOjXyDyliXX1fZPMs A4vukKIkFRLqDDOzX7etKrWj qD6feSmgORrnaxJhQJHnpe03 Diagnosis (test code o8iigHLjEZFouQDnOLIwSwbh = 34) hxVzIDOrgHHiQ8YlghehNHpj QM1iMT1bgOkdcSGutARbBPLh XaXzq0joc254sTGyd2lrDSIN oeqvqDk5lLleA38ao8R1Udxq J82ubOGoZME9GWLcCAVjmVGe PVYuMZM9CCIgcDRtJ2ouJUXj BV1bapljJEpsSNgaMLLizVG9 MVMfmVDeK6VlFDNmDIvhUCQs hgr5FjTzUo2qoKZneLpoAApn YXXwWAZmWQqcPCUxRbSjUK4j PZrunKnxgq9nHXrij0XlIS6o aXanTOQ1QsapLMZbmVYkTB5z S1T3oJAjNBJuanP6nF2zab0t xDJvLDUtpiNXKcLAuU8efOAf f0NhKOYzPFK1OZYmkPgupxoq TOICCrhkBZIkuYKjQK3gL2O8 jOLfRJDrqhF5tT8stc6siJIc OQTexsXKLdVOzZ6deKDqn3Sg UIHyRXN1DSKhrqDyivjjNqOk LCAxMUlccGFyXHRhYiBOZWdh gZx3QYAfx8TyoGDen1YuUUFj eujcIJYtIX0zNHhwzVoooa1z JRgadKCiDQ8zr6O2iKJrTLA3 OPRjcko3CGLgZcEdNTMgeaLa Af3aOJU8iQ4cTlrdKZOxcQJa AOVxLPd8hKCdYS9fPSHdNMP8 XrQjbcboAQefWZu3YFHvptu7 AKCmSfCvGQBqaxYdDp2qERD5 dU2oTnlzURPyiFVwKYZtELe2 wczkXDiwKaRkcRAfIAWxzF3f BQoisC2aXIU0x744BegjKWRc oLWtKYX1oFKad8f0YTQuC4De rfdhVgBpYAItf0AnVptehw5m n7ayPXduqe15pxOjY2IlVNR6 qHSiUERtV7FwWJzhRE77QWCt jMwzsbVtW4Mpy50tHU2pZMrj EuqchA9htE6itBQraHTqI3Wf LlxwYXJcdGFiIDIuNCBjbSBp biBncmVhdGVzdCBkaWFtZXRl vc1pvJUgDINaNhNSeyHlIOAw AABrrBN9oPVxvPYaxAJki7Wt xYOzbDAzcpJjTtfyHT1kyXSd GZElPsXIce0cL7qoEOtpWY3w DNJfrkKmS2e3iNEwDO6yhufq nyAbIMJrBL7yZ8S1uNPbESSb psH6yN7wcu4aaLYmWHMpYfQI lAgrkUKqxH2bkGOui5QjzaKl ozAnmhWeDGDyqiYbVf3oJLW7 iK6eWFpvQyekTSNcbiy7CBEz cGFyXHBhcn0= Synoptic Checklist LUNGLUNG: RESECTION - (test code = 9864) All [employer] Edition - Protocol posted: 04/27/2021 SPECIMEN Procedure: Lobectomy Specimen Laterality: Left TUMOR Tumor Focality: Single focus Tumor Site: Upper lobe of lung Tumor Size: Total Tumor Size (size of entire tumor): Cannot be determined Histologic Type: Histologic Grade: Not applicable Spread Through Air Spaces (RENO): Not identified Visceral Pleura Invasion: Not identified Direct Invasion of Adjacent Structures: Not applicable (no adjacent structures present) Treatment Effect: Present Percentage of Residual Viable Tumor: Cannot be determined: 0 Percentage of Necrosis: Cannot be determined: 0 Percentage of Stroma (includes fibrosis and inflammation): 100 % Lymphovascular Invasion: Not identified MARGINS Margin Status for Invasive Carcinoma: All margins negative for invasive carcinoma Closest Margin(s) to Invasive Carcinoma: Cannot be determined Distance from Invasive Carcinoma to Closest Margin: Not applicable Margin Status for Non-Invasive Tumor: Not applicable REGIONAL LYMPH NODES Lymph Node(s) from Prior Procedures: No known prior lymph node sampling performed Regional Lymph Node Status: : All regional lymph nodes negative for tumor Number of Lymph Nodes Examined: 13 Rebel Site(s) Examined: 7: Subcarinal Rebel Site(s) Examined: 5: Subaortic / aortopulmonary (AP) / AP window Rebel Site(s) Examined: 6: Para-aortic (ascending aorta or phrenic) Rebel Site(s) Examined: 10L: Hilar Rebel Site(s) Examined: 11L: Interlobar PATHOLOGIC STAGE CLASSIFICATION (pTNM, AJCC 8th Edition) The suffix m (or a specific number) should only be used in the setting of multifocal ground-glass / lepidic nodules that histologically present as adenocarcinomas with prominent lepidic component or multifocal tumors of same histologic type that are too numerous for individual separate synoptic report and that are not better classified as intrapulmonary metastases (e.g. numerous carcinoid tumors). Multiple primary lung cancers showing different histologic type or different morphology based on comprehensive histologic subtyping are better staged as independent tumors without m suffix. TNM Descriptors: y (post-treatment) pT Category: pT0 pN Category: pN0 Gross Description w4gvqNZvXLXmnVRAAZWlGJFo (test code = [id number]) oUFuEMwzg1heLOJ4b2dbaxJO PygxTCZvSM4xYFwzSFHeYL5s ZmUwXGRlZmYxXHBhcGVydzEy DlSkARAqlGIhkUQ1RIKfFS7k cwvmLAhvUBbjNJWxwuB3OGBn yQCiT6TcVEMtTP3mafqtWME0 EPDSMizkJi6evIVoiAxjHgNz ZmNoYXJzZXQwXGZuaWwgQXJp KYn5lW4HGkdgY69ft2H3Jzq9 EIUqWAAaZ7GsPH9iBXUkhJWo P28RKqfxCVR0ICODBijbZtfh uNyrt7KdcAFyNMNxMMldzZZl NTEwMDAgXFxkYiBPVlIgIiAx FERmKWP6DzQ1SSn6TLRMSKPs VpR3OdJ7SEG7DBl3YAKrUZ7w XMlvpUDvVFttTcidJSyvU503 TBpbVNViC2RuP0KmSQayRxLu SCxbXUVpJYOlWOkkXFOdP6NT RCJzAAF4ThfzHsBuGEb1EUpq V9JFOSIgQHK6BmK8God6AmB2 PUe0RBSHLu3dNOQwBwL4JZH2 ExG1TKM9LEDqFNPzXoXlGZZv XXLaBDqjfJCkKR2ppOcnVZZy KF0XMCBrMFmnGDQwCcBnSUTM OlxwYXIgDQpccGFyZCANClxw xILhrdwsZPAmJcSguQpueF4a aOFvY7btWbJsAjxhbNwvVsNw dERvYzEgDQpcbHRycGFyXGxp bjBccmluMFxzYTMwXGVwaWNY t5QeBEYFQacaOEMgUVjdtzSv LGh3oOKsSA2xOGSkmtflVTC6 ZsTtwwMyQhoqDGvkj2HwQuXk TUKvIIU7NLNqCDTXx48urYX2 puPcFoAqRTRiJW3ryj80xfJe xM7ymRNln0GzNCmyTnwfqCZb CgCzsTRfHyXcI04fHxQmBOhs IHNwZWNpbWVuIGlzIGVudGly GKv3BIG8Nz7fuJOlEMAfpyMs GVXoTIP1HUYTPY0nSPtogh13 OEC6x5jbzOCpFWpmHcnbiYSe coH8GBbOUKWAXWnTFkHvBO0v PUxJTktCRUdJTnwyMTAxNnwx fACFYIR5KVpnyCzylQt9s8au oTIzv0z3FZlgLXF7gE4Lu5rc pOCcJBbqAqlcqOOtjxS7NSpB WGLMGUuQZdBqMB8hHNrPSzmX ZgS8IuXhIGI7HFuVO0WSdWJ9 Gqq7YFc3pAbuEeqdkhHjoNSs JdBEhH4ynAcbfV6xwJSiT3gl WvKxTPBBQahmBBGpSKGzZ2cx VBWlQDtlVWXaZ43kh9YYs9Yn l0klxDcgy2CasSQpYR6leCPi DV7Ea2lkIWUmoBKxOMA7FDbb f9apOSzxAMF0TZVvDgZgZTWn GP5HOqEkYDZjPAA1JTiuVEy8 FEz4QY2KSvVjBGBiEPEsCWP7 AsUvLJr1ZJzlKS2GEYAeJEHm KYXnDMpsIPMfQongTIq1FDWq MCininFgFWloHabnZRdeH28z i7TmOXFgKSWpK2vaFnHgWFKO ClxmczIyXGJcZnMyMCBCOlxw YXIgDQpccGFyZCANClxwbGFp blxsdHJjaFxiXGZzMjBcYjBc ZnMyMlxlcGljTmVzdERvYzEg DQpcbHRycGFyXGxpbjBccmlu GUgyPjRsVEKgxALZt9HeWZop LZNeOKGnvZDBc0MlKOPHFuxx GWPpRMiqngVvDMa0vMWtSZ5p ZGUocyksIGxlZnQsIGhpbGFy HWJrKAzfMD4aVFGzWSjuShWv JzhsOWMqS13kx9dxaFZkw4Ye SRI0EZtpm5nqsXXrBDt2wWLu XK0yOQMqYCCaKCAchMflQSMZ cOXax1AxW9vtNX8ivCUdUV11 nUYlyBdtp7WhgYf6rUCrVRyh VAPxp3XnuILmVAHvRpZwWZNl r1CfQ2Y6MGVtZUdtr6rlXXFv WEpqy8JmOCsFVJDGCA9LUP0r cVH7BAcZH5RYV9jBoMNtMKI4 pNW1HMXPZkmvhEE5fUZ4sF62 XJNjMLUixDOoEBepQ151RCy8 PSMpEDnuc8vyEBMkSWoba7Af IVfNPUXFAH3WRK0drLX6TMxC S4QWNQirCVTcGocyyQEJIAP7 BCmpcVmywNw0z6banYRrf1o6 YCkoJRG6sRutzXAecleioXFy jAamjsWjZP6ZNOUmilPwpFHp cGFyXGxpbjBccmluMCANClxl mSctDxOojQAgYrG6VOVvoVXn OKC5QV8xjDcmKUXcVIm0ZTil YMAlC0WtY2CwYThwKxBwOXdr TSTfDHChAPpuIVNlE5CJQFEc COK0DmfzLjZtHNd7KXauN3SH GOXjDSI5JaI1KvQ5FgY3ZYb5 UWXHBb1pNQQjGwW9CHibXfN0 WWU8LISdPKMkFrYnJLQhCKDg AGfnyDUtQA2xxKuoGoYtGKrw lKzpCAByMSC7IN7MGPQdMlQy TayvhtXvHCF7OMLqufAIVnlu FKTpDP8HMLBjDVanAGd1ltNt XGJcZnMyMFxiMFxmczIyXGVw nYFAKZV7FA8eDTVTGumhlTCk GUVwyFekANjgbH9tZPXaNrHq JUShZ8ybSoZbYZUcUxUgBXZf L8lfVVSfEY6IDFJlT8EyMILg HhDfKDtulOopma6zMHhxSMlh bVOgyBljbO97WGUub5Bgsihq TPLhERVshzMbVnLeN0CvZZpz FgGbPOKjknGqt6VrTL0gBOQ8 zpMkKXFgKjJnh18uxHpvzIdp ic4eZTRuIQHdCBNdzbFiTB73 HELsEP1eJVYjOSBpaFRriC0c biBpcyBlbnRpcmVseSBzdWJt iOV0FIWdfA7tL8Rxa7R5nVWf QzEuICBccHJvdGVjdHtcZmll lAS0LJitIfodnM1prBCFBYHU EouIJgcbnyArNR5UYK3CZcYI DT41PmVpOKO9SWyWU5KKrVQ8 Ska0OGl3hGfgWzntzfHwoJBi RwJNwZ3XKQxeNptqdRT8ZAlb ScivcB4guPTFFHPCGhmONhxw fsGlOY2LRJ0YXF9DxHTxWYQ2 iZX7ONUCOhblcXM2wBK4jF59 NIAgYRKgjEHdBFhaW700BKZz IXqcVSu2dzIsCGUfUkGdAWyl cGFyZFxsdHJwYXJcbGluMFxy oH6cEV3CMHByxXSNROC2ZO2l WCwvOZZcC9SbC8KllgG3FDCy zjHZCkoxEwkiyFlde2KztBKd XHNnIFxcaWQgNTEwMDIgXFxk RyLMBfSeKjVsAWXbLYL1TrE3 PMh4KKWPCbJkKaPkSYKiWhk7 RUEyLOm8FPk8DCmVPsFnLvD7 NTCtFAK3UJF7NKs0TJlsiDAc JBpvq6UcBcPeBJZyOXwmzyZ2 RXUoDJB9MYYbeYHYv2JySJIv DQpcZnMyMlxiXGZzMjAgRDpc vVAnCV8JHQJyyrYfCVbgwSqo tZ8mhYHkT7vrDuxkbmAlPYFh TGEsOwCjAXBmS45vu1XHx6Eu DW1TFBi6jpNhyobqfM7hVBSv ukUnl0OnUCjbvKsvUIYkTeQq l0QdVRlwfSaaHLMcCgOdIQxa EjxpVbSxWyNgZBCBeD6shMBk k7VgYPUhUMQzLUHpXFLqoaXe SkimLlchn7ZaPiGjO0ZaWUxv Q75rq2bzoALpt2AyjVjnKQQe zdHdPEBws7neUEv8aTGdPX3o DGBbEbZoJXvhLgMjV25pLmOi VGhlIHNwZWNpbWVuIGlzIGVu tBkbNHl8BSO6Pm9xaSAjBGLo xoOuIAZaDLC7GRNQAO6dGOvv zt82UOL2v7vppCPaDYumZxcu lTFoerE2HKcCFMMAGLzCWaTa CD4hHBaUZlxBBVfLWhalWBRx RahveETOXGP3VDgvnZzgqYz4 n8owqOCoa4r5RLbxCGV4eL5E h6dgvFKgOKcaTptsuSFilsU6 PNeJWAOGMZhTHdYdVE3uMXyN CsjYDqM1UgPtOXV5SAoKQ0JI oGD1Yqa2ZQm2zCpzDmxrtuIj oGLpQaTTwQ7alTmvrV5nnNBu Z8beOzPpSFEKDtlvIYBoNZw0 tyXgdxukhF7tSXUxxiJtQNiu CLWlG28dx4UJt2Crz3tteEuh w7GdwHCeGV7nrSOwLO4Ct6pe WAZbkOZfCEU0WPscq4urMJlw GUP8DJKcIcHgNRMkYQ9PQmYy EFKkUUB2CWntMMo2FLn4RV1K AfXeUMPjWLInQDd2QhQfELi5 PDtfTQ3REUGiEXIxFYVjCFJi NSXhZdtbXOd4VBDmMNfqmrGk DXcsIkthHSadJ18qt2BsWWRj DAScK7tpJbEfWWJYWgopysVs XGJcZnMyMCBFOlxwYXIgDQpc cGFyZCANClxwbGFpblxsdHJj aFxiXGZzMjBcYjBcZnMyMlxl cGljTmVzdERvYzEgDQpcbHRy cGFyXGxpbjBccmluMFxzYjMw BQCtuSMKm6OhICdqDBBfTZKn eXYNb8WwAFQVRemyQRAuOPhq hyIoLYi9aPAkSF5qGICczgvy CLE9LbPqmoxdOWazOAgsOG6u WRWwGYIcMBQ7NVRhXGCXd94k iYS4ibIqVnC4n67wdkEpTLZd k7viNTf5uUEwBY2tCZVmNRhj HoJwFE1cFHFuLoVsnRrqULHM iWRoo8UiS3xtEM6lcFKaZH04 iZVkqBwcx4AmlLx5kREpUNlp VPKje0JxwSKmINFqEkNgAJAw n0PyK8D0TCSeACwep2lxDLSg IRuqp9DnVEcLTBQRWR9QQN8i lAI9WKnRA4SSC8lQkSKuLPA9 oYP3EWOKPxvuaHL6cDM5tJ17 IWHmCWIfhMIvCLayV924EPa6 ITTrJZvvg9kqLEFtHGywj6Qw HZvIQKLAQA9EVN1rvOD6BRjD K4EXLUdxQHKrHlpfnVHBNFZ9 RGukaDqacXm1n0bhvFMch7r4 VAqkYLK1tNuuyXTqnnzezIZl xFinoeYlIP4PCKCpreTirNKs cGFyXGxpbjBccmluMCANClxl pOzhCuAuyMHlOdV0JCMkfSHt ZQH8XT7qcPuyKLIlRZp7ZEhg GVCrQ2NlY0ReQRviApSkEQnr VHSiGOPjYDtjWNXzK4JEECDi MWU4GtnbAbIsTFq0EKofP0TZ DQEcJQY5ZfB5KLXqQtQ1XZc9 JHDYNr4oRAVaNgUlVEL7ZyH3 JSY5WKEyEXLdTrGpYJQfITAy SXllqYJlGM1pnXmkTqTcBCjc lNwpYKWjSOB5IL3WPZGbUxIa RxyajsRmYWA4DGBoefIVCuye PWOrWV1KKFPeQIroTVl9djOo XGJcZnMyMFxiMFxmczIyXGVw sKPMLDB0NG4iVLKNFxdvrZPk TKLpuOwrAUxcqF4fSWTkWyEi XVXyI8hdTmKvXV5FBQWlL9Te XGZzMjAgTHVuZywgbGVmdCB1 zUHbdtMdh3RbYVJaRBX7FXWy pMSwJMtjPxHtjV3riD2zEe4k Lk8yMn9bHo6rYq1ecuZcSPcl KsZuBjymZUYrHJSmUA2cVBdq EO08WJrlMp2eRCCpXRsiEhLc qPQvCFDtfSEcIyFds9FkVHxe hCobPZE5LeInL20sQ4XpkVBt ZXRhbGxpYyBzdGFwbGUgbGlu BWGtbgIrUI75NSFxFGhuHMfv XYAsETFgXUFrPXKnwrPopL4j nNFrKOYnA6Lrm66vdVNoK6mj LiBUaGUgcGxldXJhbCBzdXJm YWNlIGlzIHBpbmtcdTgyMTEg SNb4LrQnRBA6iPDfOFLjBr3v ZGddoADhc0VvLGCwOQHbDIFt FF0uDBFxGEbwCNwxMEA1OSD0 UFXihVUrm6ldexpzURGjhtQL SlpaGgHyBDRjY6woBuDdUYrb zURsHFipORYwICcNjQGns5Ii cGxlIGxpbmUgYWxvbmcgcGFy ZF3miVseZUymvPHeM7csJJxu t5BfReKCeTBbo3OgY5ilGM5z xGDjy0WmjBDamIogo5VmqHcs haShDQEfotZtgwQsW9UfAMOe cW8bkPprUL0rkzgsypI2hhQu ZXZlYWwgYSAyLjQgeCAxLjMg iVGmIkAgV99fxWTsTIh5DLCf KUTtJkc5W3XzuYabYcfckBot wVwvYRDaLfrwDKTshd8giJcz TDvddBtlVMBsQFprVYY0EbLp SMrqXER5EVkhw5wyV2S4GNR0 htFgE1Xgy9w1nV02yPKkTN1s oaMrOCdxNU4cDB5fI8Gjg3cj AVZnQxQrD26cCmDwaFD0sZZh qaFowtVcgQMvCJQhddVrqH1k rAYjXUZtP8Leq26baYKfO1zz TBLiNqPvE96gMkDbzKV4rEUv LtYjicYhuPWjPEXpPVL6DSTl pRagvtRrTQIinW8sTO7lWTW9 kCDnGKdxVdU4ooX2aAKnbLIh t3RnLAPkbKsmuKWuLzLPyUPe xCSbvnUtjdFhh8RjvM22x2r2 XRCrq3t6qYX4kBOmxRnkvYGh iYPtiHViBJRjDqUfkYNcAT1B WMLjinXKQqDuJLY8gtqhhe9f ryHzNNn9xfgzwXBfQY1myWrn HCDgdeYmze1ay1l7LQWiptNv LOKdRNYmMR6jCI44rLYpzWnx EYBfvym2KCObTKYyWpo1Urwr I8eliB0db2mehNRscXrndWwz mh2pBCLgxGScbmYdBdjeEUQr FA7jlN4fAZJru37qIP4fSBPj IDAuNiBjbSBpbiBncmVhdGVz lRHwrT2tlqKed24pUNZqjgTN ZpkmVNRtTVaYEhloR92UOCuw CkxuJ4nhwVrvKFAaxyAgQ6a4 eBTsllIdYDX4oM5jQY2bracw mdMcwO2hCmT6tIRjy9QvwSui KQyyvtC0WLOabRAluGlodZIf WrAawjMiQ2ArqPsiMANoJVa8 ErrjjTBrGGXzNVNoOWS7GXXn iiTfx0XjwWXeFcA1gVBzHcLn ocCtsIKoSIIaZML3IZTylMtn xgPwPQRoqN1pGSDkbyJKUxbq FWAfYHCgcEGRr6RrQXVXLwZE V0DEN97nJ53FEEdyUpCqIAPj l19ldSuwnHLsWZDxjX0dZKTm DHDmV8Z2YTZdEFI7IAOgpRon azInXIChbX8zYFAqRXZzR7A4 JYHaGMZpv4F6aLJsr3n1dAHx VIotO5NkaVXpiRN7mrY8DID3 XHV7JdRxPDtcSBTZFEqrQG62 gNOwuLies2GwdUf0hVNyKR0m ZLEwGWTuJZ3srU2ysaccgr8l dWxlIHdpdGggYWRqYWNlbnQg bFMzHuMfZMPvqhCpxN8rJtNM HEevvLTmYpWkUXWrkuNquZ4x UAWdzzZfJO65LUMfFJ1qKUFx GIkpD1veg9VgdH1ozNzzOK2a cgsvfeDlGbUwdfOgGO9fjtXh GK8iHMSjXCEqcLKhlLTfoTqh ZYrfFhTcYQP9VkKxNDqlRFOX UBMoLIMozEAfc5PguRI9vWOa TWOiG3Doj15hx7VumL1kkyYj iPNoKKYsPPHhgrPvxL1aCD2w QRFoYCSseW1zXtNDBSIlkRgv FZNlBQv3AsExIabyASNslCPw m734DNdtpW8cSIVnjE4xg0qz tPWxrZtjyNedpg1fHKG0VDDj SDklOxEes2CbtGPhEBQngB9x oRZah8Pebt2yTIzYFBald1Am UBXckRWVj5GuAY1KMCOipKTH TEY3LQ7zRBooNJIeP2FiA3Gn gbB6o7kgmInwp5RkmDCmHE8p uEYzZY2AGTKsAvFtMGh4 Disclaimer (test code p3ljrRQhYXEnlEUmDfNcNNJb = 9844) TNReo8moXPUokYQrBdVyRmGc DgYaYyqqtOBtVLUqSyTtp0qo c175mKVlc3bsWWUbGrJ6uJCz UZHdlXUuI340QHBhWUyjs1vn u3UlUHPatDOkn6L8PCMCvpnc fIw6fHkdH69ou0Q6OthnE8za NOLvVGXrP5SiLD5vVIAnFoa5 CAL2ASU7NPFeHGWeO2JhLT0e GVBlfDIlEQa2t3rnwAylJBSn GRB6y5bvSPwkkbMgLV6wxl4f bVv7v2ocqvZmNLLxCPZiyNTX YIBrB3PukRlbYe8bdIf0oRqk CsflYHI1Xsq8JJ6ycm95alg5 cSyzHYHclgnyZsJ2IZfmWFCe mmutTPu8SUrcLNJzvIC3UZDa gJNpK5PqUFUtMM2pvpl4ZBE6 HKtzAWFqIrR1GDSgiIXwBUZz kFlkBYlpe424UUC1MtBrMY3g S1Gba8C8rF5npMMvRQQnkIOt OzHvIUPoub0lrSOlUHlmv7Aq KYK7fvS0oNNgaFApZCKqGN20 Fbdix0MjAxarRNL3VZEsiiKn b0Ail6ajUqLqumAjO5vdA8Dr EMUiXHScRDXxSoBuhwBuh1Oj f8EjkNHadYw3g3glGBBzARQj eLqvy5ntZKS8VHAoR1W5xPOk w5bjVZkmCMLekSJ0iiH7IXFh jUCoC1UztG5nNSVoOA0jmrq3 w7rlNAS2GMzuMPGnJcM3lyS6 DLCtoVKiCXJoxWtnNTggb875 GAK9NmDiIQSwk7JnP9NunFuz R81fhFtmM72xGTZzgXztqY7o cIggyE5tHoSxQnVxZJlguPfy lZVcwaglOWtxcbD3GKynpazh DMByOKqdC5lgHlJvYRBllBqt DCbjj6FfHGAwIWIkLqeiqvC9 JNBMo00oHEYki8JqCODxbM6j dVGmTNnnrqYonCQ7CWmzdjAo SnKziyLrKSUqnO9cXVXbST0q LIMhbgVfir1htbAtWLQdBINs S6NwmlxrgCfpseXqKGIius8v xuFlDKH0HOTNBR0WRHIvWXJe c72iZDQbfXuffM6abWCifiPt WLLtv8YloY8oeURVCQYyK7am XC3fNTzvl7VwzRZcoCOphER9 SWKyn2ZfBpYnkbAdxGJnaWHb N4JhbMvrY1cvNXQzRWWjzoLa oNPwm2BzHYKgbRE3gONaCM2E NlVRj71mIBOsNLZBjfWrCPIl yEvpfFF8mvR2bR3rTwVSQnOr eHNbqNAnUcnoWBPws955zw4s yaE0PULiGVBvyvcgz9MdZOOt SDZntN52PULbAVEdxa5mvhio dRJrudMvZ8Wmevo7sO0mNQBe YWluXGYxXGZzMjJcbGFuZzEw MzNcaGljaFxmMVxkYmNoXGYx ZNkxT9mvNnRpZpPeTcwiSTU1 [facility] CenterMagnesium [id number] 11:24:24 Test Item Value Reference Range Interpretation Comments Magnesium (test code = 79927-5) 2.1 mg/dL 1.6-2.6 [facility] CenterMagn[facility] [id number] 11:24:24 Test Item Value Reference Range Interpretation Comments Magnesium (test code = 66019-6) 2.1 mg/dL 1.6-2.6 [facility] CenterComplete Blood Count w/o Siyjtxisrrsk8169-77-83 11:13:39 Test Item Value Reference Range Interpretation Comments WBC (test code = 6.3 K/uL 4.0-11.0 6690-2) RBC (test code = 789-8) 2.89 See_Comment L [Au tomated message] The system Spectrum[employer] generated this result transmitted ref erence range: 4.00 - 5 .50 M/uL. The refer ence range was not u sed to interpret this result as normal/abnor mal. Hgb (test code = 718-7) 9.5 See_Comment L [Au tomated message] The system Spectrum5 generated this result transmitted ref erence range: 12.0 - 1 6.0 gm/dL. The refe rence range was not u sed to interpret this result as normal/abnor mal. Hct (test code = 28.9 % 37.0-47.0 L 4544-3) MCV (test code = 787-2) 100 fL 82-98 H MCH (test code = 785-6) 32.9 pg 27.0-31.0 H MCHC (test code = 32.9 See_Comment [Automate d message] 786-4) The system Spectrum5 generated this result transmitted ref erence range: 31.0 - 3 6.0 gm/dL. The refe rence range was not u sed to interpret this result as normal/abnor mal. RDW-SD (test code = 67.2 fL 35.1-46.3 H 11189-7) RDW-CV (test code = 18.4 % 12.0-15.5 H 788-0) Platelet count (test 232 K/uL 140-440 code = 777-3) MPV (test code = 9.2 fL 4.0-10.4 41484-2) INRBC (test code = 0.0 % <=0.0 The INRBC (instrument 42300-9) NRBC) value ref lects the enumeration of nucleated red b lood cells contained in a 200uL sampleof whole blood analyzed by the instrument. Thi s value maydiffer from the NRBC value repo rted in a manual differential,wh ich is based on a 100 cell differential. Lab Interpretation Abnormal (test code = 31376-7) [facility] CenterComplete Blood Count w/o Pcnbkjnradlb1807-65-31 11:13:39 Test Item Value Reference Range Interpretation Comments WBC (test code = 6.3 K/uL 4.0-11.0 6690-2) RBC (test code = 789-8) 2.89 See_Comment L [Au tomated message] The system Spectrum5 generated this result transmitted ref erence range: 4.00 - 5 .50 M/uL. The refer ence range was not u sed to interpret this result as normal/abnor mal. Hgb (test code = 718-7) 9.5 See_Comment L [Au tomated message] The system Spectrum5 generated this result transmitted ref erence range: 12.0 - 1 6.0 gm/dL. The refe rence range was not u sed to interpret this result as normal/abnor mal. Hct (test code = 28.9 % 37.0-47.0 L 4544-3) MCV (test code = 787-2) 100 fL 82-98 H MCH (test code = 785-6) 32.9 pg 27.0-31.0 H MCHC (test code = 32.9 See_Comment [Automate d message] 786-4) The system Spectrum5 generated this result transmitted ref erence range: 31.0 - 3 6.0 gm/dL. The refe rence range was not u sed to interpret this result as normal/abnor mal. RDW-SD (test code = 67.2 fL 35.1-46.3 H 54792-8) RDW-CV (test code = 18.4 % 12.0-15.5 H 788-0) Platelet count (test 232 K/uL 140-440 code = 777-3) MPV (test code = 9.2 fL 4.0-10.4 90283-3) INRBC (test code = 0.0 % <=0.0 The INRBC (instrument 40800-1) NRBC) value ref lects the enumeration of nucleated red b lood cells contained in a 200uL sampleof whole blood analyzed by the instrument. Thi s value maydiffer from the NRBC value repo rted in a manual differential,wh ich is based on a 100 cell differential. Lab Interpretation Abnormal (test code = 57766-6) [facility] CenterAnion [id number] 12:40:00 Test Item Value Reference Range Interpretation Comments Anion Gap (test code 10 See_Comment [Autom ated message] The = 75918-1) system which ge nerated this result transmit mariah reference range : 4 - 14 mEq/L. The refe rence range was not used to interpret this result as normal/abnormal . [facility] CenterAnion [id number] 12:40:00 Test Item Value Reference Range Interpretation Comments Anion Gap (test code 10 See_Comment [Autom ated message] The = 77972-1) system which ge nerated this result transmit mariah reference range : 4 - 14 mEq/L. The refe rence range was not used to interpret this result as normal/abnormal . [facility] CenterChloride [id number] 12:39:59 Test Item Value Reference Range Interpretation Comments Chloride (test code = 105 See_Comment [Auto mated message] The ) system which ge nerated this result tra nsmitted reference range : 98 - 107 mEq/L. The refe rence range was not u sed to interpret this result as normal/abnormal . [facility] CenterChloride [id number] 12:39:59 Test Item Value Reference Range Interpretation Comments Chloride (test code = 105 See_Comment [Auto mated message] The ) system which ge nerated this result tra nsmitted reference range : 98 - 107 mEq/L. The refe rence range was not u sed to interpret this result as normal/abnormal . [facility] CenterPotassium Swqsm7206-79-57 12:39:57 Test Item Value Reference Range Interpretation Comments Potassium Lvl (test 4.3 See_Comment [Automa mariah message] The code = 2823-3) system which generated this result tra nsmitted reference range : 3.5 - 5.1 mEq/L. The reference range was not u sed to interpret this result as normal/abnormal . [facility] CenterPotassium [id number] 12:39:57 Test Item Value Reference Range Interpretation Comments Potassium Lvl (test 4.3 See_Comment [Automa mariah message] The code = 2823-3) system which generated this result tra nsmitted reference range : 3.5 - 5.1 mEq/L. The reference range was not u sed to interpret this result as normal/abnormal . [facility] CenterGlucose, Dfuczk7403-25-30 12:39:56 Test Item Value Reference Range Interpretation Comments Glucose Random (test 116 mg/dL 70-199 Effecti ve 01/12/16, the code = 2345-7) glucose refer ence intervals have been updated based o n [place] [employer] luis delines (Standards of M edical Care in Diabete s 2016. Diabetes Care 2 016; 39: S13-S22).Fastin g blood glucose:Normal: 70-99 mg/dLImpaired f asting glucose (increa sed risk for diabetes or pre-diabetes): 100-125 mg/dLDiabetes m ellitus: >/=126 mg/dL Ra ndom blood glucose:N ormal: 70-199 mg/dLNot e: Random glucose >100 mg /dL is associated with increased risk for diabetes [facility] CenterGlucose, Qgnbyp8194-29-39 12:39:56 Test Item Value Reference Range Interpretation Comments Glucose Random (test 116 mg/dL 70-199 Effecti ve 01/12/16, the code = 2345-7) glucose refer ence intervals have been updated based o n [place] [employer] luis delines (Standards of M edical Care in Diabete s 2016. Diabetes Care 2 016; 39: S13-S22).Fastin g blood glucose:Normal: 70-99 mg/dLImpaired f asting glucose (increa sed risk for diabetes or pre-diabetes): 100-125 mg/dLDiabetes m ellitus: >/=126 mg/dL Ra ndom blood glucose:N ormal: 70-199 mg/dLNot e: Random glucose >100 mg /dL is associated with increased risk for diabetes [facility]odium [id number] 12:39:54 Test Item Value Reference Range Interpretation Comments Sodium Lvl (test code 140 See_Comment [Auto mated message] The = 2951-2) system which ge nerated this result tra nsmitted reference range : 136 - 145 mEq/L. The refe rence range was not used to interpret this result as normal/abnormal . [facility] Centerodium [id number] 12:39:54 Test Item Value Reference Range Interpretation Comments Sodium Lvl (test code 140 See_Comment [Auto mated message] The = 2951-2) system which ge nerated this result tra nsmitted reference range : 136 - 145 mEq/L. The refe rence range was not used to interpret this result as normal/abnormal . [facility] CenterPhosphorus [id number] 12:39:53 Test Item Value Reference Range Interpretation Comments Phosphorus (test code = 2777-1) 3.4 mg/dL 2.5-4.5 [facility] CenterPhosphorus [id number] 12:39:53 Test Item Value Reference Range Interpretation Comments Phosphorus (test code = 2777-1) 3.4 mg/dL 2.5-4.5 [facility] CenterCarbon Dioxide [id number] 12:39:49 Test Item Value Reference Range Interpretation Comments CO2 (test code = 25 See_Comment [Automated message] The 2028-02) system which ge nerated this result transmit mariah reference range : 22 - 29 mEq/L. The refe rence range was not used to interpret this result as normal/abnormal . [facility] CenterCarbon Dioxide [id number] 12:39:49 Test Item Value Reference Range Interpretation Comments CO2 (test code = 25 See_Comment [Automated message] The 2028-02) system which ge nerated this result transmit mariah reference range : 22 - 29 mEq/L. The refe rence range was not used to interpret this result as normal/abnormal . [facility] CenterCalcium Ionized, Tprsoq5590-76-76 12:00:22 Test Item Value Reference Range Interpretation Comments V Ion Ca (test code = 75124-0) 1.22 mmol/L 1.15-1.29 [facility] CenterCalcium Ionized, Dapliq9882-04-08 12:00:22 Test Item Value Reference Range Interpretation Comments V Ion Ca (test code = 77323-6) 1.22 mmol/L 1.15-1.29 [facility] CenterCOVID-19 (SARS-CoV-2) PCR- Asymptomatic [id number] 03:15:52 Test Item Value Reference Range Interpretation Comments COVID19 (SARS Not Detected Not Detected CoV-2) Result (test code = ____[place] a 51851-8) qualitative reverse-transcr iptase polymerase heather n reaction [...] patients provid ed by the manufacture r ([employer]) c an be reviewed at:https://www. fda.go v/media/443925/ downlo ad. A fact shee t for Health Care pro viders is provided by the car worker helper ([employer]) and can be reviewed at: https://www.fda .gov/m edia/845894/bart nload Results must be interpreted wit hin [...] were verified by the Microbiology Laboratory at [facility], CLIA Accreditation # : [id number] and CAP Accreditation # : [id number]. COVID19 SARS BUSINESS APPLICATIONS DEVELOPER Swab Source (test code = 63203) COVID19 SARS Pre-OR Procedure Indication (test code = 40879) [facility] CenterCOVID-19 (SARS-CoV-2) PCR- Asymptomatic [id number] 03:15:52 Test Item Value Reference Range Interpretation Comments COVID19 (SARS Not Detected Not Detected CoV-2) Result (test code = ____This test i s a 04571-7) qualitative reverse-transcr iptase polymerase heather n reaction [...] patients provid ed by the manufacture r ([employer]) c an be reviewed at:https://www. fda.go v/media/754164/ downlo ad. A fact shee t for Health Care pro viders is provided by the car worker helper ([employer]) and can be reviewed at: https://www.fda .gov/m edia/869404/bart nload Results must be interpreted wit hin [...] were verified by the Microbiology Laboratory at [facility], CLIA Accreditation # : [id number] and CAP Accreditation # : [id number]. COVID19 SARS BUSINESS APPLICATIONS DEVELOPER Swab Source (test code = 27873) COVID19 SARS Pre-OR Procedure Indication (test code = 51838) [facility] CenterFree [id number] 17:03:31 Test Item Value Reference Range Interpretation Comments T4 Free (test code = 3024-7) 1.04 ng/dL 0.93-1.70 [facility] CenterTSH2022-10-24 17:03:17 Test Item Value Reference Range Interpretation Comments TSH (test code = 1.96 See_Comment [Automated message] The 24885-2) system which ge nerated this result transmit mariah reference range : 0.27 - 4.20 mcunit/mL. The reference range was not used to interpr et this result as keiko l/abnormal. [facility] CenterFree [id number] 14:24:54 Test Item Value Reference Range Interpretation Comments T4 Free (test code = 3024-7) 1.10 ng/dL 0.93-1.70 [facility] CenterTSH2022-09-12 14:24:50 Test Item Value Reference Range Interpretation Comments TSH (test code = 1.56 See_Comment [Automated message] The 01258-2) system which ge nerated this result transmit mariah reference range : 0.27 - 4.20 mcunit/mL. The reference range was not used to interpr et this result as keiko l/abnormal. [facility] Medical CenterFractionated [id number] 14:23:40 Test Item Value Reference Range Interpretation Comments Bili Total (test 0.4 mg/dL See_Comment Indocyanine Green (ICG) code = 1974-07) may cause fal sely elevated biliru bin results. Total and direct bilirubin must not be measured from s amples containing indo cyanine green. False el evation of total bilirubin can be seen in patient s with IgG concentrations above 28 g/L. [Automated message] The system ic h generated this result transmitted ref erence range: <=1.2. T he reference range was not used to interpr et this result as normal/abnormal . Bili Direct (test <0.2 See_Comment Indocyanin e Green (ICG) code = 1967-12) may cause fal sely elevated biliru bin [...] par ameters are outside rep ortable range [facility] CenterGlomerular Filtration Rate 2022-02-27 14:23:38 Test Item Value Reference Range Interpretation Comments eGFR-AA (test code = 51 See_Comment L Normal eGFR: >= 60 32628-7) mL/min/1.73 m2N ote: The eGFR is mariya culated using the CKD-E PI equation. The e GFR declines with a ge. eGFR <60 mL/min /1.73 m2 is considere d as "decreased". Th is equation should only be used for pat ients 18 and older. According to th e [employer] Kid[employer]'s dney Disease Outcome Quality Initiat joann (KDOQI) classif ication and 2011 Kidney Disease Improvi ng Global Outcomes (KDIGO) [...] failure <15 [Automated mess age] The system Spectrum5 generated this result transmitted ref erence range: >=60 mL/min/1.73 sq. m. The reference range was not used to int erpret this result as normal/abnormal . eGFR-DANIEL (test code = 44 See_Comment L Normal eGFR: >= 60 47684-2) mL/min/1.73 m2N ote: The eGFR is mariya culated using the CKD-E PI equation. The e GFR declines with a ge. eGFR <60 mL/min /1.73 m2 is considere d as "decreased". Th is equation should only be used for pat ients 18 and older. According to th e National Kid[employer]'s dney Disease Outcome Quality Initiat joann (KDOQI) classif ication and 2011 Kidney Disease Improvi ng Global Outcomes (KDIGO) [...] failure <15 [Automated mess age] The system Spectrum5 generated this result transmitted ref erence range: >=60 mL/min/1.73 sq. m. The reference range was not used to int erpret this result as normal/abnormal . Lab Interpretation Abnormal (test code = 08668-7) [facility] CenterMagnesium [id number] 14:23:36 Test Item Value Reference Range Interpretation Comments Magnesium (test code = 40477-8) 2.4 mg/dL 1.6-2.6 [facility] CenterTotal [id number] 14:23:35 Test Item Value Reference Range Interpretation Comments Total Protein (test code = 2885-2) 7.5 g/dL 6.4-8.3 [facility] CenterAlkaline [id number] 14:23:34 Test Item Value Reference Range Interpretation Comments Alk Phos (test code = 6768-6) 91 U/L 35-104 [facility] CenterPhosphorus [id number] 14:23:33 Test Item Value Reference Range Interpretation Comments Phosphorus (test code = 2777-1) 3.6 mg/dL 2.5-4.5 [facility] CenterAlbumin [id number] 14:23:32 Test Item Value Reference Range Interpretation Comments Albumin Lvl (test code 4.6 See_Comment [Aut omated message] The = 4729) system which ge nerated this result tra nsmitted reference range : 3.5 - 5.2 gm/dL. The refe rence range was not used to interpret this result as normal/abnormal . [facility] CenterCalcium [id number] 14:23:31 Test Item Value Reference Range Interpretation Comments Calcium Lvl (test code = 65219-7) 10.9 mg/dL 8.4-10.2 H Lab Interpretation (test code = Abnormal 63012-9) [facility] CenterAspartate Aminotransferase 2022-02-27 14:23:30 Test Item Value Reference Range Interpretation Comments AST (test code = 22 U/L See_Comment [Automated message] The 1920-01) system which ge nerated this result transmit mairah reference range : <=32. The reference range was not used to interpr et this result as keiko l/abnormal. [facility] CenterALT2022-09-12 14:23:29 Test Item Value Reference Range Interpretation Comments ALT (test code = 13 U/L See_Comment [Automated message] The 1741-11) system which ge nerated this result transmit mariah reference range : <=33. The reference range was not used to interpr et this result as keiko l/abnormal. [facility] CenterElectrolyte [id number] 14:23:28 Test Item Value Reference Range Interpretation [...] to interpret this result as normal/abnormal . [facility] CenterBUN2022-09-12 14:23:27 Test Item Value Reference Range Interpretation Comments BUN (test code = 3094-0) 22 mg/dL 6-23 [facility].Serum [id number] 14:23:26 Test Item Value Reference Range Interpretation Comments Creatinine (test code = 2160-0) 1.19 mg/dL 0.51-0.95 H Lab Interpretation (test code = Abnormal 60618-7) [facility] CenterGlucose [id number] 14:23:25 Test Item Value Reference Range Interpretation [...] for diabetes or pre-diabetes): 100-125 mg/dLDiabetes mellitus: >/=1 26 mg/dL Random bl ood glucose:Normal: 70-199 mg/dLNot e: Random glucose >100 mg/dL is associ ated with increased risk for diabetes Lab Interpretation (test Abnormal code = 42643-1) [facility] CenterDifferential2022-09-12 13:46:29 Test Item Value Reference Range Interpretation [...] % 0.0-0.4 H IGRE % c ount 39142-8) includes Metamyelocytes, Myelocytes, and Promyelocytes. Neutrophil Abs (test code 7.17 K/uL 1.70-7.30 = 751-8) Lymphocyte Abs (test code 1.52 K/uL 1.00-4.80 = 731-0) Monocyte Abs (test code = 0.67 K/uL 0.08-0.70 742-7) Eosinophil Abs (test code 0.20 K/uL 0.04-0.40 = 711-2) Basophil Abs (test code = 0.06 K/uL 0.00-0.10 704-7) IG Abs (test code = 0.05 K/uL 0.00-0.04 H 50663-7) Lab Interpretation (test Abnormal code = 55685-2) [facility].[id number] 13:46:23 Test Item Value Reference Range Interpretation Comments WBC (test code = 9.7 K/uL 4.0-11.0 6690-2) RBC (test code = 789-8) 4.28 See_Comment [Au tomated message] The system [employer] generated this result transmitted ref erence range: 4.00 - 5 .50 M/uL. The refer ence range was not u sed to interpret this result as normal/abnor mal. Hgb (test code = 718-7) 12.9 See_Comment [Au tomated message] The system [employer] generated this result transmitted ref erence range: 12.0 - 1 6.0 gm/dL. The refe rence range was not u sed to interpret this result as normal/abnor mal. Hct (test code = 40.7 % 37.0-47.0 4544-3) MCV (test code = 787-2) 95 fL 82-98 MCH (test code = 785-6) 30.1 pg 27.0-31.0 MCHC (test code = 31.7 See_Comment [Automate d message] 786-4) The system [employer] generated this result transmitted ref erence range: 31.0 - 3 6.0 gm/dL. The refe rence range was not u sed to interpret this result as normal/abnor mal. RDW-SD (test code = 49.7 fL 35.1-46.3 H 67382-9) RDW-CV (test code = 14.3 % 12.0-15.5 788-0) Platelet count (test 273 K/uL 140-440 code = 777-3) MPV (test code = 8.9 fL 4.0-10.4 61681-0) INRBC (test code = 0.0 % See_Comment The INRBC (instrument 89701-7) NRBC) value ref lects the enumeration of nucleated red b lood cells contained in a 200uL sampleof whole blood analyzed by the instrument. Thi s value maydiffer from the NRBC value repo rted in a manual differential,wh ich is based on a 100 cell differential. [Automated mess age] The system [employer] h generated this result transmitted ref erence range: <=0.0. T reference range was not used to int erpret this result as normal/abnormal . Lab Interpretation Abnormal (test code = 17798-7) [facility] PCR- Asymptomatic [id number] 07:32:38 Test Item Value Reference Range Interpretation Comments COVID19 (SARS Not Detected Not Detected CoV-2) Result (test code = ____[place] a 03041-4) qualitative reverse-transcr iptase polymerase heather n reaction (RT-PC R) developed for t Tj MARCUS 680 0 system and inte [...] patients provid ed by the manufacture r ([employer]) c an be reviewed at:https://www. fda.go v/media/473894/ downlo ad. A fact shee t for Health Care pro viders is provided by the car worker helper ([employer]) and can be reviewed at: https://www.fda .gov/m edia/788418/bart nload Results must be interpreted wit hin [...] were verified by the Microbiology Laboratory at [facility] [place], CLIA Accreditation # : [id number] and CAP Accreditation # : [id number]. COVID19 SARS BUSINESS APPLICATIONS DEVELOPER Swab Source (test code = 42616) COVID19 SARS Pre-Out of OR Indication (test Procedure code = 41291) [facility] (SARS-CoV-2) PCR- Asymptomatic [id number] 07:32:38 Test Item Value Reference Range Interpretation Comments COVID19 (SARS Not Detected Not Detected CoV-2) Result (test code = ____This test i s a 56748-7) qualitative reverse-transcr iptase polymerase heather n reaction (RT-PC R) developed for t he [employer] MARCUS 680 0 system and inte nded [...] patients provid ed by the manufacture r ([employer]) c an be reviewed at:https://www. fda.go v/media/319590/ downlo ad. A fact shee t for Health Care pro viders is provided by the car worker helper ([employer]) and can be reviewed at: https://www.fda .gov/m edia/846808/bart nload Results must be interpreted wit hin [...] were verified by the Microbiology Laboratory at [facility], CLIA Accreditation # : [id number] and CAP Accreditation # : [id number]. COVID19 SARS BUSINESS APPLICATIONS DEVELOPER Swab Source (test code = 66218) COVID19 SARS Pre-Out of OR Indication (test Procedure code = 22892) [facility] Virus Antibody 2022-02-03 20:00:50 Test Item [...] cons ideration when interpreti ng the results. [facility] C Virus Antibody 2022-02-03 20:00:50 Test Item [...] cons ideration when interpreti ng the results. [facility] B Surface [id number] 20:00:32 Test Item Value Reference Range Interpretation Comments HBsAg. (test code = 5747) Non Reactive Non Reactive [facility] B Surface [id number] 20:00:32 Test Item Value Reference Range Interpretation Comments HBsAg. (test code = 5747) Non Reactive Non Reactive [facility]LDH[facility] 19:24:59 Test Item Value Reference Range Interpretation Comments LDH (test code = 190 U/L 135-214 Results gre ater than 1651 45460-1) U/L may not be reliable due to matrix effec t with extended diluti on as it exceeds the man ufacturer's recommended carty it. Caution should be exerc ised when interpreting chester ch values and done in con junction with clinical c ontext. [facility]LDH[facility]22-08[facility] 19:24:59 Test Item Value Reference Range Interpretation Comments LDH (test code = 190 U/L 135-214 Results gre ater than 1651 76428-6) U/L may not be reliable due to matrix effec t with extended diluti on as it exceeds the man ufacturer's recommended carty it. Caution should be exerc ised when interpreting chester ch values and done in con junction with clinical c ontext. [facility] 19:24:59 Test Item Value Reference Range Interpretation Comments LDH (test code = 190 U/L 135-214 Results gre ater than 1651 36288-9) U/L may not be reliable due to matrix effec t with extended diluti on as it exceeds the man ufacturer's recommended carty it. Caution should be exerc ised when interpreting chester ch values and done in con junction with clinical c ontext. [facility] 19:24:59 Test Item Value Reference Range Interpretation Comments LDH (test code = 190 U/L 135-214 Results gre ater than 1651 62036-5) U/L may not be reliable due to matrix effec t with extended diluti on as it exceeds the man ufacturer's recommended carty it. Caution should be exerc ised when interpreting chester ch values and done in con junction with clinical c ontext. [facility] CenterGGT2022-08-19 19:24:45 Test Item Value Reference Range Interpretation Comments GGT (test code = 2324-2) 19 U/L 5-36 [facility] CenterGGT2022-08-19 19:24:45 Test Item Value Reference Range Interpretation Comments GGT (test code = 2324-2) 19 U/L 5-36 [facility] CenterCortisol, [id number] 19:24:14 Test Item Value Reference Range Interpretation Comments Cortisol, Total (test 8.11 See_Comment Cortis ol reference code = 2143-6) intervals are established for the morning hours from 6-10 am and aft ernoon hours 4-8 pm. Due to circadian rhythm of corti jesús levels in serum and pl asma, the sample collecti on time must be noted. Cauti on should be exercised when interpreting such values and done in conjunction wit h clinical context. Serum Cortisol Reference Range s: Morning (6-10am) (4.8 - 19.5)Afternoon (4-8pm) (2.5 - 11.9) [Automa mariah message] The system [employer] generated this result tra nsmitted reference range : 4.80 - 19.50 mcg/dL. T he reference range was not u sed to interpret this result as normal/abnormal . [facility] CenterCortisol, [id number] 19:24:14 Test Item Value Reference Range Interpretation [...] interpreting chester ch values and done in [facility] emergency department with clinical c ontext. Serum Cortisol Reference Ranges: Morning (6-10am) (4.8 - 19.5)Aft ernoon (4-8pm) (2.5 - 11.9) [Automated mess age] The system which ge nerated this result tra nsmitted reference range : 4.80 - 19.50 mcg/dL. T he reference range was not used to interpr et this result as keiko l/abnormal. [facility] CenterCortisol, [id number] 19:24:14 Test Item Value Reference Range Interpretation [...] interpreting chester ch values and done in [facility] emergency department with clinical c ontext. Serum Cortisol Reference Ranges: Morning (6-10am) (4.8 - 19.5)Aft ernoon (4-8pm) (2.5 - 11.9) [Automated mess age] The system which ge nerated this result tra nsmitted reference range : 4.80 - 19.50 mcg/dL. T he reference range was not used to interpr et this result as keiko l/abnormal. [facility] CenterCortisol, [id number] 19:24:14 Test Item Value Reference Range Interpretation Comments Cortisol, Total (test 8.11 See_Comment Cortis ol reference code = 2143-6) intervals are established for the morning hours from 6-10 am and aft ernoon hours 4-8 pm. Due to circadian rhythm of corti jesús levels in serum and pl asma, the sample collecti on time must be noted. Cauti on should be exercised when interpreting such values and done in conjunction wit h clinical context. Serum Cortisol Reference Range s: Morning (6-10am) (4.8 - 19.5)Afternoon (4-8pm) (2.5 - 11.9) [ThinkVinea mariah message] The system [facility] [employer] generated this result tra nsmitted reference range : 4.80 - 19.50 mcg/dL. T he reference range was not u sed to interpret this result as normal/abnormal . [facility] CenterUrinalysis with Microscopic 2022-02-03 19:16:18 Test Item Value Reference Interpretation Comments Range UA WBC (test code = 8 See_Comment H [Automa mariah 67158-5) message] The system which generated this result transmitted reference range : 0 - 2 /HPF. The reference range was not used to interpret this result as normal/abnormal . UA RBC (test code = 1 See_Comment [Automa mariah 66733-3) message] The system which generated this result transmitted reference range : 0 - 2 /HPF. The reference range was not used to interpret this result as normal/abnormal . UA Mucous (test code NOT SEEN Not Seen-Trace = 86143-3) /HPF UA Bacteria (test NOT SEEN NOT SEEN /HPF code = 31056-7) UA Squam Epi (test OCC None-Occasiona code = 55191-0) l /HPF RHIANNA (test code = Some reporting RHIANNA) parameters within the Urinalysis test have changed due to the implementation of new instrumentation in the [facility], allowing greater sensitivity of measurement. Urinalysis results reported by the [facility] using existing instrumentation, as well as Urinalysis testing performed manually or by backup methodology at the [facility] will remain relatively unchanged. New reporting parameters and units will now be reported for all campuses. Lab Interpretation Abnormal (test code = 70690-4) [facility] Center[facility]inalysis with Microscopic 2022-02-03 19:16:18 Test Item Value Reference Interpretation Comments Range UA WBC (test code = 8 See_Comment H [Automa mariah 15331-7) message] The system which generated this result transmitted reference range : 0 - 2 /HPF. The reference range was not used to interpret this result as normal/abnormal . UA RBC (test code = 1 See_Comment [Automa mariah 98484-6) message] The system which generated this result transmitted reference range : 0 - 2 /HPF. The reference range was not used to interpret this result as normal/abnormal . UA Mucous (test code NOT SEEN Not Seen-Trace = 41755-1) /HPF UA Bacteria (test NOT SEEN NOT SEEN /HPF code = 66867-9) UA Squam Epi (test OCC None-Occasiona code = 66444-4) l /HPF RHIANNA (test code = Some reporting RHIANNA) parameters within the Urinalysis test have changed due to the implementation of new instrumentation in the [facility], allowing greater sensitivity of measurement. Urinalysis results reported by the [facility] using existing instrumentation, as well as Urinalysis testing performed manually or by backup methodology at the [facility] will remain relatively unchanged. New reporting parameters and units will now be reported for all campuses. Lab Interpretation Abnormal (test code = 86108-6) [facility] CenterUr[facility] with Microscopic 2022-02-03 19:16:18 Test Item Value Reference Interpretation Comments Range UA WBC (test code = 8 See_Comment H [Automa mariah 97295-1) message] The system which generated this result transmitted reference range : 0 - 2 /HPF. The reference range was not used to interpret this result as normal/abnormal . UA RBC (test code = 1 See_Comment [Automa mariah 44936-3) message] The system which generated this result transmitted reference range : 0 - 2 /HPF. The reference range was not used to interpret this result as normal/abnormal . UA Mucous (test code NOT SEEN Not Seen-Trace = 17656-5) /HPF UA Bacteria (test NOT SEEN NOT SEEN /HPF code = 14281-3) UA Squam Epi (test OCC None-Occasiona code = 02900-3) l /HPF RHIANNA (test code = Some reporting RHIANNA) parameters within the Urinalysis test have changed due to the implementation of new instrumentation in the [facility], allowing greater sensitivity of measurement. Urinalysis results reported by the [facility] using existing instrumentation, as well as Urinalysis testing performed manually or by backup methodology at the [place] will remain relatively unchanged. New reporting parameters and units will now be reported for all campuses. Lab Interpretation Abnormal (test code = 92810-8) [facility] CenterUr[facility] with Microscopic 2022-02-03 19:16:18 Test Item Value Reference Interpretation Comments Range UA WBC (test code = 8 See_Comment H [Automa mariah 40021-3) message] The system which generated this result transmitted reference range : 0 - 2 /HPF. The reference range was not used to interpret this result as normal/abnormal . UA RBC (test code = 1 See_Comment [Automa mariah 77996-2) message] The system which generated this result transmitted reference range : 0 - 2 /HPF. The reference range was not used to interpret this result as normal/abnormal . UA Mucous (test code NOT SEEN Not Seen-Trace = 24220-6) /HPF UA Bacteria (test NOT SEEN NOT SEEN /HPF code = 47665-3) UA Squam Epi (test OCC None-Occasiona code = 76623-7) l /HPF RHIANNA (test code = Some reporting RHIANNA) parameters within the Urinalysis test have changed due to the implementation of new instrumentation in the [facility], allowing greater sensitivity of measurement. Urinalysis results reported by the [facility] using existing instrumentation, as well as Urinalysis testing performed manually or by backup methodology at the [facility] will remain relatively unchanged. New reporting parameters and units will now be reported for all searcyes. Lab Interpretation Abnormal (test code = 28667-7) [facility] CenterLipase [id number] 19:13:05 Test Item Value Reference Range Interpretation Comments Lipase Lvl (test code = 3040-3) 56 U/L 13-60 [facility] CenterLipase [id number] 19:13:05 Test Item Value Reference Range Interpretation Comments Lipase Lvl (test code = 3040-3) 56 U/L 13-60 [facility] CenterLipase [id number] 19:13:05 Test Item Value Reference Range Interpretation Comments Lipase Lvl (test code = 3040-3) 56 U/L 13-60 [facility] CenterLipase [id number] 19:13:05 Test Item Value Reference Range Interpretation Comments Lipase Lvl (test code = 3040-3) 56 U/L 13-60 [facility] CenterAmylase [id number] 19:13:04 Test Item Value Reference Range Interpretation Comments Amylase Lvl (test code = 1798-8) 102 U/L 28-100 H Lab Interpretation (test code = Abnormal 95042-9) [facility] CenterAmylase [id number] 19:13:04 Test Item Value Reference Range Interpretation Comments Amylase Lvl (test code = 1798-8) 102 U/L 28-100 H Lab Interpretation (test code = Abnormal 61877-6) [facility] CenterAmylase [id number] 19:13:04 Test Item Value Reference Range Interpretation Comments Amylase Lvl (test code = 1798-8) 102 U/L 28-100 H Lab Interpretation (test code = Abnormal 51816-0) [facility] CenterAmylase [id number] 19:13:04 Test Item Value Reference Range Interpretation Comments Amylase Lvl (test code = 1798-8) 102 U/L 28-100 H Lab Interpretation (test code = Abnormal 55969-4) [facility] CenterUrinalysis w/Microscopic if [id number] 19:08:15 Test Item Value Reference Range Interpretation Comments UA Color (test code = 64555-0) Straw Straw-Yellow UA Appear (test code = [...] A Lab Interpretation (test code = Abnormal 80080-4) [facility] CenterUrinalysis w/Microscopic if [id number] 19:08:15 Test Item Value Reference Range Interpretation Comments UA Color (test code = 90204-0) Straw Straw-Yellow UA Appear (test code = [...] A Lab Interpretation (test code = Abnormal 20055-4) [facility] CenterUrinalysis w/Microscopic if [id number] 19:08:15 Test Item Value Reference Range Interpretation Comments UA Color (test code = 87121-4) Straw Straw-Yellow UA Appear (test code = [...] A Lab Interpretation (test code = Abnormal 50633-0) [facility] CenterUrinalysis w/Microscopic if [id number] 19:08:15 Test Item Value Reference Range Interpretation Comments UA Color (test code = 03943-7) Straw Straw-Yellow UA Appear (test code = [...] A Lab Interpretation (test code = Abnormal 20871-4) [facility] CenteraPTT2022-08-19 19:00:12 Test Item Value Reference Range Interpretation Comments aPTT (test code = 36.6 See_Comment H [Automate d 25655-3) message] The system which generated this result transmitted reference range : 22.8 - 34.2 second(s). The reference range was not used to interpret this result as normal/abnormal . RHIANNA (test code = RHIANNA) This lab cannot be scheduled at the following locations due to collection/procc essing restrictions: [facility] and [facility]. Lab Interpretation Abnormal (test code = 43179-0) [facility] CenteraPTT2022-08-19 19:00:12 Test Item Value Reference Range Interpretation Comments aPTT (test code = 36.6 See_Comment H [Automate d 05480-5) message] The system which generated this result transmitted reference range : 22.8 - 34.2 second(s). The reference range was not used to interpret this result as normal/abnormal . RHIANNA (test code = RHIANNA) This lab cannot be scheduled at the following locations due to collection/procc essing restrictions: [facility] and [facility]. Lab Interpretation Abnormal (test code = 66911-3) [facility] Medical CenterProthrombin [id number] 19:00:11 Test Item Value Reference Range Interpretation [...] following locations due to collection/procc essing restrictions: [facility] and [facility]. Lab Interpretation Abnormal (test code = 16355-5) [facility] CenterProthrombin [id number] 19:00:11 Test Item Value Reference Range Interpretation [...] following locations due to collection/procc essing restrictions: [facility] and [facility]. Lab Interpretation Abnormal (test code = 22318-7) [facility] CenterComplete PFT ([place], [place]CO, [place]) 2022-02-03 00:00:00 Test Item Value [...] 9530) Lab Interpretation (test Abnormal code = 09551-8) [facility] ([place], DL[place], [place]) 2022-02-03 00:00:00 Test [...] 9530) Lab Interpretation (test Abnormal code = 34836-8) [facility] CenterMD BRAF V600 E Mutation Material [id number] 21:49:16 Test Item Value Reference Range Interpretation Comments Archived Material Previously diagnosed (test code = 76980) tissues from [place] [address] were selected for molecular analysis. Results will be reported separately. [facility] CenterMD EGFR Mutation Material Request 2021-12-30 21:49:16 Test Item Value Reference Range Interpretation Comments Archived Material Previously diagnosed (test code = 96952) tissues from [place] [address] were selected for molecular analysis. Results will be reported separately. [facility] CenterMD KRAS Mutation Material Request 2021-12-30 21:49:16 Test Item Value Reference Range Interpretation Comments Archived Material Previously diagnosed (test code = 57178) tissues from [place] [address] were selected for molecular analysis. Results will be reported separately. [facility] CenterMD NTRK1 Fusion Analysis Material [id number] 21:49:16 Test Item Value Reference Range Interpretation Comments Archived Material Previously diagnosed (test code = 57544) tissues from [place] [address] were selected for molecular analysis. Results will be reported separately. [facility] CenterMD NTRK2 Fusion Analysis Material [id number] 21:49:16 Test Item Value Reference Range Interpretation Comments Archived Material Previously diagnosed (test code = 81109) tissues from [place] [address] were selected for molecular analysis. Results will be reported separately. [facility] CenterMD EML4/ALK Fusion Analysis Material [id number] 21:49:16 Test Item Value Reference Range Interpretation Comments Archived Material Previously diagnosed (test code = 85688) tissues from [place] [address] were selected for molecular analysis. Results will be reported separately. [facility] CenterMD BRAF V600 E Mutation Material [id number] 21:49:16 Test Item Value Reference Range Interpretation Comments Archived Material Previously diagnosed (test code = 99689) tissues from [place] [address] were selected for molecular analysis. Results will be reported separately. [facility] CenterMD EGFR Mutation Material Request 2021-12-30 21:49:16 Test Item Value Reference Range Interpretation Comments Archived Material Previously diagnosed (test code = 13773) tissues from [place] [address] were selected for molecular analysis. Results will be reported separately. [facility] CenterMD KRAS Mutation Material Request 2021-12-30 21:49:16 Test Item Value Reference Range Interpretation Comments Archived Material Previously diagnosed (test code = 66642) tissues from [place] [address] were selected for molecular analysis. Results will be reported separately. [facility] CenterMD NTRK1 Fusion Analysis Material [id number] 21:49:16 Test Item Value Reference Range Interpretation Comments Archived Material Previously diagnosed (test code = 32159) tissues from [place] [address] were selected for molecular analysis. Results will be reported separately. [facility] CenterMD NTRK2 Fusion Analysis Material [id number] 21:49:16 Test Item Value Reference Range Interpretation Comments Archived Material Previously diagnosed (test code = 83819) tissues from [place] [address] were selected for molecular analysis. Results will be reported separately. [facility] CenterMD EML4/ALK Fusion Analysis Material [id number] 21:49:16 Test Item Value Reference Range Interpretation Comments Archived Material Previously diagnosed (test code = 53080) tissues from [place] [address] were selected for molecular analysis. Results will be reported separately. [facility] CenterMD BRAF V600 E Mutation Material [id number] 21:49:16 Test Item Value Reference Range Interpretation Comments Archived Material Previously diagnosed (test code = 09322) tissues from [place] [address] were selected for molecular analysis. Results will be reported separately. [facility] CenterMD EGFR Mutation Material Request 2021-12-30 21:49:16 Test Item Value Reference Range Interpretation Comments Archived Material Previously diagnosed (test code = 46210) tissues from [place] [address] were selected for molecular analysis. Results will be reported separately. [facility] CenterMD KRAS Mutation Material Request 2021-12-30 21:49:16 Test Item Value Reference Range Interpretation Comments Archived Material Previously diagnosed (test code = 80420) tissues from [place] [address] were selected for molecular analysis. Results will be reported separately. [facility] CenterMD NTRK1 Fusion Analysis Material [id number] 21:49:16 Test Item Value Reference Range Interpretation Comments Archived Material Previously diagnosed (test code = 98472) tissues from [place] [address] were selected for molecular analysis. Results will be reported separately. [facility] CenterMD NTRK2 Fusion Analysis Material [id number] 21:49:16 Test Item Value Reference Range Interpretation Comments Archived Material Previously diagnosed (test code = 72775) tissues from [place] [address] were selected for molecular analysis. Results will be reported separately. [facility] CenterMD EML4/ALK Fusion Analysis Material [id number] 21:49:16 Test Item Value Reference Range Interpretation Comments Archived Material Previously diagnosed (test code = 23524) tissues from [place] [address] were selected for molecular analysis. Results will be reported separately. [facility] CenterMD NTRK3 Fusion Analysis Material [id number] 21:49:15 Test Item Value Reference Range Interpretation Comments Archived Material Previously diagnosed (test code = 61620) tissues from [place] [address] were selected for molecular analysis. Results will be reported separately. [facility] [id number] 21:49:15 Test Item Value Reference Range Interpretation Comments Archived Material Previously diagnosed (test code = 64351) tissues from [place] [address] were selected for molecular analysis. Results will be reported separately. [facility] ROS1 Fusion [facility] Material [id number] 21:49:15 Test Item Value Reference Range Interpretation Comments Archived Material Previously diagnosed (test code = 05745) tissues from [place] [address] were selected for molecular analysis. Results will be reported separately. [facility] NTRK3 Fusion Analysis Material [id number] 21:49:15 Test Item Value Reference Range Interpretation Comments Archived Material Previously diagnosed (test code = 80980) tissues from [place] [address] were selected for molecular analysis. Results will be reported separately. [facility] [id number] 21:49:15 Test Item Value Reference Range Interpretation Comments Archived Material Previously diagnosed (test code = 85348) tissues from [place] [address] were selected for molecular analysis. Results will be reported separately. [facility] Material [id number] 21:49:15 Test Item Value Reference Range Interpretation Comments Archived Material Previously diagnosed (test code = 89642) tissues from [place] [address] were selected for molecular analysis. Results will be reported separately. [facility] N[facility] Fusion Analysis Material [id number] 21:49:15 Test Item Value Reference Range Interpretation Comments Archived Material Previously diagnosed (test code = 82046) tissues from [place] [address] were selected for molecular analysis. Results will be reported separately. [facility] Material [id number] 21:49:15 Test Item Value Reference Range Interpretation Comments Archived Material Previously diagnosed (test code = 67431) tissues from [place] [address] were selected for molecular analysis. Results will be reported separately. [facility] Fusion [facility] Material [id number] 21:49:15 Test Item Value Reference Range Interpretation Comments Archived Material Previously diagnosed (test code = 62083) tissues from [place] [address] were selected for molecular analysis. Results will be reported separately. [facility] 2021-12-29 21:51:25 Test Item Value Reference Range Interpretation Comments Addendum 1 (test code = b3pwcSVlYAIfuNM6XOX 37) wKCThi0vij3JzlFHofZ TkLKrssGTeetQkkh96p UI6uH72RD6uNTTfJlI7 WSSvsdM7Rub6JDVoVNN jiYIwJ859z4ifa9stnf DckNG1uXfrUMUzsvcpJ iW2RQrgONVvqxgkHJx5 ZAmkZFJryMJ6ULJraZH gQ4PmYIXlDH7olhv0KT Y0YNvhIQVkDqU8VAQgq HIfXBAhaTtyCOvlj490 XXR1UlTdVSIfiqFhcAz hmQ7zIhZpLVKHGF9BGJ RbE8ghvtAeXcAZKkcvI CVpkjMNfITmzDF2ACVH tP7wxdJsGDVrb1BkapU dp32qN4DevjMiXMDKDy d3CNzcTImoMXOlyCi5h WTTk0SoyXNOskAebl4r eBubenb0yMTrAtZZfPa yUUWix8C1AOfnXM7ehb LnGAA8tCUlANVvtHQQU 5vvXC36RAKdx29cFO8u NBGpJXFyTGKvy19xH5x vbmFsIGFudGktUEQtTD AxFEXgw42oASImTcDpE Xg9BQjjXHLpqyGkou7y BBOqeqRhc5BnFIzvfa7 maXhlZCBwYXJhZmZpbi 5dpLHaKERgTJA5oFYvq NDzlZLvsfcfCO2aXOde dGUufBBALVrmIUY2pH0 zdGFpbmVyIGFuZCBwb2 p5iDPuDCMvq5AiRKLyr GVjdGlvbiBraXQsIGFz IHNwZWNpZmllZCBieSB 8rLSdeSUtqYIyG0X3gt VyLiBJdCBpcyBhcHByb 2IjCFTuk8HbyDJzTCGw TQOjF20diJXfoX7uJLQ sUIbkt6O9bYBtBFThUN lpYo8nVGOtQYAxVjjlW HRoZXJhcGllcyBvbiBj OPV7TEttGRI7eA5xQPZ 5cGVzLiBJbnRlcnByZX RhdGlvbiBndWlkZWxpb mVzIHZhcnkuIEZvciB0 bS4qjmCoXZFnhiHpduC tK8Alr4DrweFwMQPKLo aqOLUbVGTzKPRaIG55N VpdZI8mUFJ8oU9iKZtk fWQjCsPfjr09yxHxBCS lbGluZyBvZiBhbnkgaW 07RI0xsVX8BMkwMCAcg 0Zgw3QmJaNEiKZdo9Vv uwAzKADvxX6waPbdGBn udGVuZGVkIHRoZXJhcH ecsMMuk5TaHJZfulGgp sGkHg8eIGHkdDPcfFUn YXRlIHVzZSBvZiByZXN 2yTZvAhJSLNDhs7BdXB 8uHFUsaKXiVKX2WMEux 8UyZ2Lqq21ap6PrYWTj fYprj2PkOAT2pBXpSRH 9U9yxYFJkEKictKVyDK Siy9QdN0bqSS4nVLKzP NPftuGsn85dRIZywr68 ETKmhHWir1IviYycBWD dHL7wVRNiZEXsdHxhkr GfFS4tb5DkOuXfP4Kdp lVmiYFwWB2caIMiTXSl cmRcaTBccGFyfQ== Submitted Clinical History z0kneUOeHNUei1ceOZZ (test code = 26921) mbGFuZzEwMzNcZnRuYm pcdWMxIHtccnRmMVxzc 5DvA4AtGjUjNLfwtlTg XGRlZmxhbmcxMDMzXGZ 0bmJqXHVjMVxkZWZmMH zhSo0lgIYtjJnxWzKbS HZxd7xhffBHlgympRo8 b5gzGNGjWxX1iYVuPLw cX9jxweJetXVeZMHeXF q7yQ15SLPxmC4xvXUmU FyhonDrHmN7QEliBVQf AiS0BJYpjNGoJDIeQ3f yZWQwXGdyZWVuMFxibH YvILC2uCwwo5H4bUBun GVldHtcZjBcZnMyMiBO z6KqVKt6eCklG0JxETK dYuF5bRVuCLNvXGftAL KvQHVrzyL7iR32KTjvl dN6eBXfk4Kgf17lw541 oB8hnILyKWU2VIOhDEC fjLPnZHHdEOT9QJDemT LyB2gwTBXwDE4yqjuxH DosFCqlIJIdvIZ3ETZt uRUnU2ViXLScUQknCUU fmtk1AvJrDs3syUCpeB khYDsan9sxo8egpVDmC tr9UUDaZxRqYycmWXpx i3Mwn0jqSZZywp9jWYA 5hBLuoLvxs1C1oYYrRZ YafXEkthNkUERbMaA6F PzrMD6arq30TMAqHGP4 ok6xiPApbMbotcJfhZQ vTIbeJ1BlKAKvo221JV DyT3TuWSJko2A9usGuI lFsFLVwgWS3ibN4ETUf TUp1tKXtkgM0qaZqtMA fD9lzzP7bXYMuXY2ggj fnb7bcVDlgUMleNEFos AP3aqT7SYUxvWLuW0Ko fR1tQUEeYRzcYHJqrws 7CwJpBg9asEUqzAjxDY xzYmtwYWdlXHBnbmNvb nRccGduZGVjXHBsYWlu XHBsYWluXGYwXGZzMjR rqAxtaEypzY1uCsExJo YxPGdkWX2xIMZwE8suw RFvEOHdCPGeD2tbZyCu aO4okPwjHFyybjBdXJ7 7kRBleQibBT3oNUVjLP Mri1DgsTMsNwTrFmtiR nbbBUVozmREiS8uXJ7y u3ZrT6D9EM42DBfpsPT pblxmMVxmczIyXGxhbm mlHNPxPZfgK5cxXmTcJ PBvwOwfJOtlw0QwKNCu XGZzMjJccGFyfX0= Diagnosis (test code = 34) g0lvlYLaRPLseUO1EMB bSHTkz5scu1EaqKMtiB CsIYjzuOXsweSsdu60p UJ2qI23LS5qQYHmGcA3 EQZtznP6Zxq8MOFqCME amXLpM319k2lar4poem BrwCW2eUkfOIPqlllfC aE6AUvzNBFaqmdrGVv6 BUpaJVRezFI7AAImmEW hF4MtQTExXB7kzyr1CC B6KOgmYHVfCfZ0XARnz KUpDJRkdPtoDBmvt449 KQO4GaMnZAEctuAhuUf ezN7qEoFyZXIRvE7dFS LcPFA8LJDsfDJuMTcoF aEjBIHcd3DnnZfadNBq KKZimte2RVLnEKGXWp8 KNYJOYO8LPQQhO6CvLD QPAyVQNgwUAU7yAVIwp xj5XQWbI3ChYTNxqK4y bnQuXHBhcn0= Comment (test code = 9835) g8jliSOiPZOxxFV2SIV qVWLnq2ulx6FlqCTpxQ NvUZiojQVewhTwgj68o DA6fQ65UI2yMGXuYqV1 ZJZxzdP3Zqp5MCUqPDI xiVNsK090p7goa7aeho MfmMH8mBufZJQcwttjF rL9ROxxOAWpyzybIUc1 REfkPOAlpRR1KUVcdYC dI6LfOTJlCL2eufn4XI E7FAjeZSUoFxJ8BNMgx LCwBGHnqEdnHXatv479 ZJM0LkXwRWUnwaZpnYn peJ2aZhIvGMHVaU21wp 3zgZL9e7UyLD2qJ8ZfW UW9OWkzajLpkP84DQQn g7e4zTYwDVC2RDcnhK2 oXErxRZX6dH7uZUHsxQ olRJblkNlya7RqPMQhu iBhbmQgVFRGLTEsIHdo sNgiWI2zM0W1tIIsMBR vciBHQVRBLTMsIFBBWC 04LCBhbmQgcDQwLlxwY XJ9 Gross Description (test h6xtbSEtULVjeWRIMWc code = 2373025515) wMVxhbnNpXHNwbHRwZ3 VwkttaWWfkFJ5iAH0za QetiVDihPJpRJ7PMWFf ZmYxXHBhcGVydzEyMjQ tRQPggOGrhYK6CSGgBE 1hcmdsMTgwMFxtYXJnc rR6UOBofHKdD9KtZOPn JM0szoruSFO7QPdjwG6 nbkURMnpoFn8aiQPkrW tcZjFcZmNoYXJzZXQwX GYfqMxpGEUnHVt9mM9H AdzjV57lw1T0Cof1MDE tNDFwF2QyJQ7tDGFdlU BhG58IGvniNBW4SIPKJ iqmRMGhJC3Ta0jiCAJs eIAcQMR9NMmtuKZoITC fPOLzGIv3KENsEThxbR ZrMG6elPlzQnzmiUufu 2VjdCBcXGlkIDUxMDAy IKfbLJYrJC3UWbCdGEE qGaQ0WXhxLLs2GAt1TK 7TQyXrZTIdWXNzBIH2X jUvRBj6LHhqPX9LAFKz NjgxMzUxMzYgNTUyNTQ cVQz2BIHgOOazWDQtxI FsIFxcZnMgMTAgXFxmY mAqUOFuVBfufdQ9AHPh YWluXGJcZnMyMCBBOlx aITPhDRjjeXovqX3qCL XcZ55ue4YQl0YuRR4ZE Nz5cqLjoyagtM3aPSPu niPaEAxysZBqZ8bnNxp hYbInYzZqJEKUaX1eFU MqLBA5AUJabJOgJXylJ mUsIGxlZnQgbHVuZzpc GeRmH4RiLZKBzOLyHXH wr9YjgsHqSwQ8NX5lRc Jtx09ql19ynSX0lUYyi WUgYWdncmVnYXRpbmcg iO8jQf9tOHraKO3vUVa pJL5xRDDpGSPtxlUybm AupZSxdFAebEX2XEXyj T8nZOIaPRHibHOpdLTm wZocSsdnjJD7TAlzOme mlD2bfRAPBWSKEzmUTe ydbeQrZD6KBO1WKdGEK L79CrJvGWN9BHaIB0JQ bUC4Moi1MLr7iKuvLsp ksaWxbEWlDfGDfI1CUn qsGczynOY7VPdeKakzi J8qfACAGKZSXbeKIohr qpLlNV4JHY0VRB2SzBM tKZW3dMW5WQNGRhsdtX N0cKV0iH00FEWxLYQxx GRyQAlaT149ZBVfHGda NGp6clBnSVHdKjViUOr gCJIfZ04jy4HRd4FiYG Sng5mtwNnbd4IylOFaV XsfWGIawXMhTUgwdR9s CqIrb1sclCs6TBxtsrP 9SVXztu0lbBfewY7zNH oxg5arAPY3VXNsuFVxt EZaUGuotFdtvM3gMsMr Arp9ISuiBGEiG7BxU9B zoxH9YOMsTUcbNLIoZT YgDQp9 Biomarker Block(s) (test u9cseLRxGNYkrKL8PTP code = 9841) tSOBot6qxf3MaaYGjlI FzJUjpaGErjnKuqf46a UP8uX05OZ3jLGVjDhK5 BOSqjvL9Ray7CIWuJON myJVqO153s7mrr3zgbf NihVI6wWlxNDNcnxnoT jH9JUmzNXFxkfukROd7 CStmDGDkaCV7LZMpmEM hY2MwDQRuJF7krgy0SI V7KSzrMSHzLdE7WTLzv OCnVEHjxBlpGJtfu261 GCY3QpKfZKVodmGrnTp prB4sWjVbCYGFQtmsPA J9 Disclaimer (test code = n8liaMQfGWTphLTyIkY 9844) yBRMiFEMbi0adXHEyvR FuZzEwMzNcZnRuYmpcd UEvJZUfBzHpj5heu132 vGNyv0omRDXmVnI5kIB uPZHvzDIoO821ASZtZT phw8dnb1KgXIWdaBUwg 2H1TLUOlazisKk3hTec N53jb1I4BvljF4rfOSF rGZHbI1TiEE1iFLScYk q2EUP4QXQ3CRLmYODtX 5BkEG4kMUXkeXHwRHs4 y5czsOjpBHTcXME0m2j jFVdyciUtFW2wuu8zhA x4v6jmwvEtHGQnEIVly NKOJLKzF8NzcAfgPf9k qHo1pKwcMtfyVTG0Olc 7WY7sbq11sby5vMyzNT TqwrlpOrJ1EAfnUEKxg iwkKNa8OVqvQQRtoLN8 DLVxrQXgZ6CoDJSyMS1 vygz4KDN9KFbsVLNoFy T5SBVeuBAeNWXsrJvaK Tord646EPT3BpHiPD7s O4Nnk4A4qG5baZMgCIR kaPTdIlJuFIOwbb0siM GfMOqei0DzLJM6wnP1v QTmvHRtAPVoKF88Ztks w9VrXxpcGRZ3ZPFazwB yi8Dca4lhYvBqntReY1 qvJ6EjGTAkIAEeRRPrS jHtdqRhd6Jur5GpdORv tNk8p3xdLQGwZBBsgWl et7vdLSA6GCEaS2Y3jN Mpy5wgFPxaOETdgXP0b hV8IIAvgRJuL7TljL5o YLWtYQ2zvfw5x7ujBHQ 3QUxwHHZsOvL6qcS5OC BcaGVhZGVyeTcyMFxmb 337WBX0DqTcBRUvt6Go I2NirBgsD27bsEqeD91 dBSCugUicoA3rqQufqR 5cZjBcZnMyNFxxbFxwb RMymmyjHLodmcO4IRse lllhCXJdNOkiU4ypCfC iRRNadMyrESwse0NaSF AzRGBdLofjajX9QFOZf 37zVALdw9ZoAYKfaQ3l qNNnAFlrztPylLU4IVr hdmUgYmVlbiBkZXZlbG 9aPAFhOK2xWFGcahCkh a8mznUoFZXyGQVmG0Rr cmlzdGljcyBkZXRlcm1 pqiBiVHR7IWIIFI7USZ RcTIJca19uTKGhhHrlf N2hbHPsahLzIIWlq6Hm nI7hlBPAXQNwK2xfMF2 pYPqak6HohDIwvGSnjC C7IOYsu1EcJkPoewSqf OXisQPcM1CinChnL5wh XDSsVGKvsxUbaCWnf2D zWLNqfFX0cXDpRT2VUw HQo41sBQFhMMBSqoRyH WEjeVbctKC3tfE0fA6c LiBJZiBhcHBsaWNhYmx lKQCuj005yj1hkyE9SB JaFVYdakxve8XlJQMyS TMssP89XIKjMHQjtz6m qwoghKZkdyIcA8Ypfgd 4bE0yJWMgFNiaCPObSQ ZzMjJcbGFuZzEwMzNca GljaFxmMVxkYmNoXGYx AYmuT5tdVaBfSzAcLun wYXJ9 [facility] 2021-12-29 21:51:25 Test Item Value Reference Range Interpretation Comments Addendum 1 (test code = c8bjuIOmDHRriYK6NHO 37) cEEEzs9koo7MucTSuoY ZvWYdrpSGxeiAqtu36t FU4cT14QA7uCYVzVsK9 FKLabsG3Hwq8MNOkTLU etDSpQ296g0ymf1yztg BhnQB6fPlqJLUtyvmjF tJ1TDzlCBOrbjgoYQf1 MKjaSQBnkTV4TQAtcMJ vL7McGVJsVH4pgrc4FZ C2UViiXJEoOxM0VGSea FXuQGYwtVykOSied821 BML5TxYuBFIgwyVomYp bjG4rBvIbFGFJNX5MHQ JlP1trgjHnAxTVVameL TZxasGUxRBbcJZ6CLNO eF6dhzQeHLAgk3VnzkO oz97wZ3IrhgNnROTOPj o4ZUdrTUvbWMYsaFv5x TGLd6JohEVAcqRtcn3s nXvsltg1oJUvBdWKwTp gIZQnr2F1JRqzNV8abv JwJIX8rIGfNWPcmXCMB 4gmDY90DTEef50dVT9i PZYoRFZfLOVws17bA3i vbmFsIGFudGktUEQtTD EkXSCfv02yNKKhBdSmN Fx4FIhnBYHpliXavb7b HGLobdLxa5IlZAkpqy0 maXhlZCBwYXJhZmZpbi 7xlXQmXNBaKDC0qYKpq TSyuLIofbcnBV0oBThd uAJejXMRRFiuEUM8cO0 zdGFpbmVyIGFuZCBwb2 s0tROvJSAnr0VrYTAkx GVjdGlvbiBraXQsIGFz IHNwZWNpZmllZCBieSB 4oGOapQEoeHOwX5F2iy VyLiBJdCBpcyBhcHByb 0WgQFVms3WouVZgIPHb BKXxV34mbSHkvV2jQXX sJFbvi5C4xLEkSEDeCD vuRx5kNYIsRFVoBximG HRoZXJhcGllcyBvbiBj RIQ1PTyoSLK3aF6nSXI 5cGVzLiBJbnRlcnByZX RhdGlvbiBndWlkZWxpb mVzIHZhcnkuIEZvciB0 lD1aacZlKMMzfjVmjvU sS9Wjl6BhyoChCSDEYp jaHAWgONDaQNCkNK37P XhnYI1qVGT1aZ8gLOgq gKCmUfJdcd67khPjEXA lbGluZyBvZiBhbnkgaW 49ZC3glXL8MGcuCQDvv 1Unc8IuWhNFnXLfw1Qv cyRzUZMwdC0igNnfBIz udGVuZGVkIHRoZXJhcH ganUYnh4KoUJQokmRil iLaCb2uWOIccKKrnDPh YXRlIHVzZSBvZiByZXN 9xGGxLuJADUIfo1BiCI 5rWPJljBAiPGD6LNQgj 2NrY0Uca14ub4BxXVBb yIieo7AlWGN1nAPbUWZ 9C5ztIICpKJrzwWFiUO Xdt8GrS3sfBZ1bHHSsA DXtlvUtv37cXLRont26 RNKbeLXga8CyvKlnBKF hEZ5eOPNpYASbgIjxso OgMQ6hb3PqVsQtQ4Vlq fEwmIJdOC3zpNVbYETu cmRcaTBccGFyfQ== Submitted Clinical History u9ohbEYgZDJrg2gkKOV (test code = 71090) mbGFuZzEwMzNcZnRuYm pcdWMxIHtccnRmMVxzc 7LjX4YhYoOqHMcxtlMu XGRlZmxhbmcxMDMzXGZ 0bmJqXHVjMVxkZWZmMH myOe0seAVmtWxwOmTpO TVxq7vmqnMLebuhpJa4 a4smWJEjLuJ3yBMqAPw qC1oljsZeaGWgGJIfYK z7dO88MJDdaF8qdZOhF GdmvcReLkU2CHoqWKCi AjD4ACOtgXZkDZSpC7m yZWQwXGdyZWVuMFxibH BqPXH8xAwcz5V0nNCzs GVldHtcZjBcZnMyMiBO b3KeAZr9oCljE2RbSSK kImG4hSFgSLJrKAltQY NiOQYvlxN4pF46KKzgh yH1xZSyi0Mcj29dk283 sL4lsXXgRCB6QNWgHWU wgBEfIDXwKSP2FQPbiJ OjD6yyTTSiSI8iffmbE CleWMvnRQYjyXO4KFVh nPVtC8DaZKVkHWxzWJE ycso7JhWvKx7vtPDdaF dfFNsei8cet5omuYRdP ao0TSXvPuRrVosyBVae q4Yno1dhNOViju2mBJY 1pBRjkGvlk0I4mXVcOE SajGTbjjAdIWAbApR3L JliHX0hsz28GRKjPZW4 qy8lzSAkqZvpetXizBV mLIxpD1TuVUIgk284LU QqR4MyWLObt6Z2quUxZ kToHOLrbLF2nzY2PSHq ZCa2nMOmgvN0pmWetLV aN1jceI0cEVQnVS8ffq xcr5crJJpeTNrvFPCkx LS9slW2KLHpsDGdB4Rm rY3sAKRxVYvkTCUwozj 6QsQyRa1qwFOvcSorDB xzYmtwYWdlXHBnbmNvb nRccGduZGVjXHBsYWlu XHBsYWluXGYwXGZzMjR blHvbxCibhF5iTwEkFt ItJOooWL1rQELpG3man SEyQURnHCSnN6geMqLp cW1gvVssQWdcfnSdYG5 8vEXftLytGQ4hDBViIW Iwo2RxfHToRyGwDvlfA ehbDTQvxzMPvU7wPU6a a9QtN0E4GW66GYjaaVU pblxmMVxmczIyXGxhbm emIKAkWLdhR9juMsDgB OZuwKinAPcpa7OoXAMf XGZzMjJccGFyfX0= Diagnosis (test code = 34) c2xygJOlUIMluIU7BYK dGIAga8kdm6WeeOHzpG NoRYqiiPPimoBckx59c IJ4pR33EL1pYCGjMqI1 OATgtvD3Wgn7UHUcPLE nxWWvQ704y3gyc4ihoy UzvTL2jXftSFEnrxdxN fM7SSnqZNEkqvwxSDz0 CEdnKKNhmSG9FPJjzRC uH5TdLMIuXT9ikdl5RM B7VLanIXOeVyR2TBYbq FCpQIKkvBasVZxwn637 KGD3KpBxCKJuueLlrYa gpK7zDaSaMUKSwM4uWX HwKVR6GFAxrWMnAXnnJ gXhTSKer8JbdZbrcHFi IIBsdnj9BDKbXSTXNe4 AVSDSQD9KGZPaU1NhBG TLCcDUSyjZDI4tNJLlz za2OUDrJ7KlIVObdR7z bnQuXHBhcn0= Comment (test code = 9835) x2tekTFbDGNtdBF1TKK sXNDyk6byk3MayBYyzX FwEEteuEEubiJqgg58m KJ1jS27EL1xSZHcVoR6 DSPkylP7Urj7OIPgNQY fyTPbY238y4vnj0esow BwpTV1fZtiTLKjjkixO kE7IKxbYBVcwpgkHTw7 JTbaHWQulNR9XIDucAE uY5TfRWTbRJ0tiip8GI Z3FEkwOYRoYyB8QQAko KFyGUPdtVuxNNvyj155 DJX3SjFrNQYmnfOywPf fbN5kQvWgNIYObG58ft 2iqAA9f0NdBJ7bD3AeF YZ7EIqnuiMzsU58UHVr v9m8rYTrDAU1RXwguC1 vCHbmMZU0wT6bPJDxnU swWXetyKvhm0IjQZWam iBhbmQgVFRGLTEsIHdo wDqgNO8hC1V0pFUlCEW vciBHQVRBLTMsIFBBWC 04LCBhbmQgcDQwLlxwY XJ9 Gross Description (test t5hgvQXjRWAulVIFPQt code = [id number]) wMVxhbnNpXHNwbHRwZ3 ImowpgRSzwAP6uPC8mg NomqNJuxFMaBU4TUJMy ZmYxXHBhcGVydzEyMjQ tQKSjzKNjqPR7OZImVM 1hcmdsMTgwMFxtYXJnc gY8JXYwzXRnF2SaEOKe GA1gdjxjHNB9FXfksK1 coxEXEfssXb0jhRCvuI tcZjFcZmNoYXJzZXQwX GViaThxBKAgDNy3gS1T QgriR93ir4Z8Rem6CJD bIYTzH6DhSP2tYOBopS SlS07YPghxSUO3AEUHA wyvOBJiAS8Ad2evJGIj uGJzNPO4FOiwpASyYFK mVRKiHLv1CQFfSCfzvV QrHU9lfVtrYduwxXzuz 2VjdCBcXGlkIDUxMDAy HWzeECXkKC7ALfNtGTT jHoG6HZsoNRo7LTm1YJ 3YMdTvUEUrVPOgAUU2T gXeXMg3RHemHM9JIOGf NjgxMzUxMzYgNTUyNTQ eRNt1RFQcFFziOWVfrT FsIFxcZnMgMTAgXFxmY uYaVGGlEApinyL9DBBo YWluXGJcZnMyMCBBOlx dJMDdCPvwiBnceZ7fNT RqD02ga9WPi9AdVY5SZ Bg6edAlrddvlF4yNICs siCpUOjjrXPvU5iaGqs fEnJmXqCnFOSJhH2wXU OcZWD1PFYmuCUxPNelG mUsIGxlZnQgbHVuZzpc JaFoF6GrPWKYzOMdFLK lx8OwmlLcFvV4TZ5rQt Vfh83xq54huSW8vAFgj WUgYWdncmVnYXRpbmcg sC4wTm2mTLmfPL9iMTz cJP1tCMCcSMGhkrClbb UnyWWbkLZvpEH4TTJgy M5mJHHoDHEddUFkaFOi mBckUqyutCA4WBioAvx chM9pkAYRUASELzdESy dpbpOxWN7KBF6MYaYBQ G04SoTxXJC4XFrUJ5XR lIY5Vde3PLi0gGhuHlm gecFsfEHdReIIcW4LUe yaLbhwgAD7SEjxCorzk K6jwWILVEECWvoMIkmf vzFgFB3IQQ1GYI7SeGH tVZZ7wRE6IOIMRzmyeD V7gZC7eN92GSDnWWGvi EFgTJlaJ406OIUbOJjx JSq2nhMnHKIiTePjZJe uMWBaL84lf2GBu9VwDB Qoq8otvOumw9UvxCDdS KdyECDptSKlKCjqlV0k JeOpc9fcwTw2VOluvdO 4SEHtsq4ffCjdsT6jAM ccj4gdZCR3BPPsoIYpc ODaNYtjkRmitD4aAwDy Pcn6RNnbMDWnF0ZxU7T fixC7CEHkCRqeHJZoYU YgDQp9 Biomarker Block(s) (test z4wkxTQaYYZniZE1PNF code = 9841) fZYCws3qqe6RvbUFzoO QbUSvnrPKcqxUkho14h SG0jE63DP7vTLVqOnP9 LQGajzN3Mqs2ETEoHLF moDWcB677m7yeg3pcun GvqOK3bZdqQEPjbblcD dG2WPsnYJTxmkgdMXg6 LTcgRGDwvZU4UYStkUR wN2VlGNGoYK6nxiu7ER N8AHwsQMZdPrK9LXUma ROxBBFbxTblTRhcv760 JDH2RfFzQEYnnlDnwZf uuP3eOvUpZKVLGifdJM J9 Disclaimer (test code = e9smtLSqHAJvfTBtYlK 9844) qJTSaKPKjj1lwRAXiyJ FuZzEwMzNcZnRuYmpcd CJuLRCrSgToa1whl629 aUBxy3gdLMHqAmT7uTJ lTAGhbEAwP350UXFeNV oor9met4VbICFysQDbi 7Z5ZWADdekyjEj6nQoh N80px7O6RxmfU0uiAMV kPDGjC3RzFW2fUXDbPu s6CKB9ZEF4TUNwDBLkE 3HmSK4uHTZowYRgUZn7 k7bekJvaANEkYRQ4k1n uKAjgceTnRI8ugj1ajT o1y0ekvxHdVOLzRHLfc MDOFFWaU9NacCoiFa0k dBl2eBywBjyeBVD2Wfj 0IH6pxe21afw1qLlyCH ZjzshkCeX6NZloOCRxy gfzQTx6DTlaBBYivPH1 YDCdsAMoY1OyLHDwQM0 bapp2ICE7LDfrJZBxCh V0BCEbcCUcIUKkpYiaL Eolj649EUG0LvEsLB5q U8Ahr0L5tK0dqGIxHYX prINiAjBqJOYonq8spC IwPYlio7PhQQI8olV2e BUgmIUjJEHqCO28Mfwf d1XfTqbvWNC7UZEjeqA xq0Yuw8vcPoMyvxOjX5 zpL4CjRSOdWKDnPTNrN vKumtEhm1Isj3LfvGEv zWu6o0mqIXLtRKXwiCe uc1jzRSV2GPDtE2U5vF Bbe8pzTIhuFOQhiFB6z dY0YFVzaZAsF4LtwL1d NPHgMH4nvlg2s7upWTK 1ZBvcBWHtAnT7sqA1ZR BcaGVhZGVyeTcyMFxmb 358PHE8SqJkIYQpc4Fz B9MslHkvO29osVpmQ98 cQFZbgKiymC1opIgddK 5cZjBcZnMyNFxxbFxwb OHpobzqVUxivgT7KHzl avscLYNhQUbjD0zrLyZ fLZOqjAonTHjia4McLK LnMMEyCwdceaD8KGKSr 70kOGUvu4SyTULxvF1h qUJvEFxcelDwtEW6WCq hdmUgYmVlbiBkZXZlbG 5rBEJiMQ6cXUAyxiXvq r5httBtMPXmKSLpP3Oe cmlzdGljcyBkZXRlcm1 pahBxLGW2LNFKPC1FEP SzUKXqq36tNZOqtUjug M0fjWHqafBkVDPdy5Ol pC0biEPTGFOaV0dpAD6 mRYcwz3UehSUekVHsmC V1RFVcj6HaEbKpeuWno YOajXFxR5NkrOnjB4se BJNjBQLaksSliBVgg5I uAJAemDI6nUZbFG6JEe MZd41uFAAxJJFJblUjJ FGcgAdwfES0kkL0zQ1e LiBJZiBhcHBsaWNhYmx iFNQqq138fx2xxhK6FA GqTMDevdqhj1UaCWTzI CDorW94RDQxZHApfi2v wsxhySHwezKoS4Ozmis 7sP7nOCEmSTmrZNLhCB ZzMjJcbGFuZzEwMzNca GljaFxmMVxkYmNoXGYx IJhyY3elInLrRlLpHck wYXJ9 [facility] 2021-12-29 21:51:25 Test Item Value Reference Range Interpretation Comments Addendum 1 (test code = v3capNTlALObgUK8FFI 37) uYWPct2amj1RwpMLctM DkGFphnIJqkyOcjn05n GJ3xU32UV4zAODtVrN7 MSSdbhH3Dqh2YTJrIQR zrBCyP856n7fep4rbxy TxkXD3kSzkMSNpnrlaA qL3RRojJZQottxpEDp7 CHjhKWJuuNF6XMEvoCQ cC4MfRDQvKZ0bgro3CS D4LXtdUKOiSsU4MWYts MSxSGRjzNkrLPkdu630 MFJ8WcPiMCXgiwKldNn hgK3sGdCoGLUKMM7AJJ BcG1bnuaNqYvXOTupxW TNcctEQvGVorNQ0VQBS sR1hrmVkAXLrr7PgyvG ir79hY5JokkGkELIRHd p7FUrmZCkcQAZccRm6y RORc0MycGSMbzAkhz1s vSgwqfj6jBZiQqXIfTx qTJCcj9L6HBlbIC1swx JvBAS5fGRuRNYqaAQLO 1ldYW76QHZff24iKP9h VNQpMISaDAYle97jZ0k vbmFsIGFudGktUEQtTD KaJYRgr31hJAOiFoChP Kp8VTvkLSChhnKqbr5i HXCzucRec7LzFAeuol2 maXhlZCBwYXJhZmZpbi 5hgFWgDFUkHFJ5gLZqk SPhtEDedeamTT7wMKwq cCCsjRTIZBogODY3lY8 zdGFpbmVyIGFuZCBwb2 c9gBJbJLImj4DhFUYgm GVjdGlvbiBraXQsIGFz IHNwZWNpZmllZCBieSB 8uGUoiENlkXJlS4T0wq VyLiBJdCBpcyBhcHByb 2LfVKUgu3MsnZXiLYAr DKVpA83eiFMuzA9mQVC tFHyzs4J0sJQiRJFtDS vsLe0mVSLoRNGkUndpS HRoZXJhcGllcyBvbiBj IJP0AQrfBWT2rF8zLZN 5cGVzLiBJbnRlcnByZX RhdGlvbiBndWlkZWxpb mVzIHZhcnkuIEZvciB0 qV8czoNiISAfppDohvJ jF4Chs3EtfhGoQHOGOl mdAZXxGLXoXLHoCG87J HyiQQ7gINP8hH6jVPbj uNOuTiDavn09iqIiSNZ lbGluZyBvZiBhbnkgaW 14NU8abFF3OPwaWXTdr 3Jcy2UjBtHFjGXbv5Sh gbRgDVAotQ8tmRofNJf udGVuZGVkIHRoZXJhcH wppQKhb1UwHDSjleDyw sRfTm4pDKDeyPZkbCLg YXRlIHVzZSBvZiByZXN 0tHKzBmLYYIKsc6WcUC 7uODOwrYThFJP1COPob 6AuN4Mfa52wx5QsRTXt pJgpe6VcTVM6kUJvMVK 0W4siMZQyMExhfSOxII Pmm2TpG7haLS1iBRQtN NOiowDrk50yFKYhcx95 MWVpfTGwh0XjlTzpULL wXC3rVGUfVFUbuRrkxc MdKA7zj3EtHjPsB8Ycp bMttXGoBB5zjLXnPAQb cmRcaTBccGFyfQ== Submitted Clinical History q2youGSkGTKlf7wnGLA (test code = 01176) mbGFuZzEwMzNcZnRuYm pcdWMxIHtccnRmMVxzc 2OsS0GyAaQwZOydbcBv XGRlZmxhbmcxMDMzXGZ 0bmJqXHVjMVxkZWZmMH aiEv5yeVRxyXzrMoRxC VLln4pltvXMvshboBv1 f8khHHElLkE3wYXjEEb jH9rkbuJbyPVbFTLpUN c6oF25SVSbxD4rkFJbH DjshuIuHnM1YNuiRLCp VmI8LPZnyLWrDSHnD9l yZWQwXGdyZWVuMFxibH QpKFA6wOqse3O0sAMue GVldHtcZjBcZnMyMiBO y4RqUOe3lFhoY6UtTKR sChH2nQBmPNCqINufFD AkTSQblbL5nM26MOunf gR3bSIwu0Ais14fc720 zD4cdEZhSZE7SFGjIZM ffVWcAAUfCFQ7PYIqyY OjN0wpEPYxKD0ffbzqE UovLZyfCXUrdTU4XAQz zOSjU5IzQKZyAZtpEAQ ueow6QoFeXo6dkMGzjY etHZhsl0lbx5xtyKFfR dh8AUByAbWdXusbZLzw g0Tfv9edNRTery8lRBJ 6xRTpcOysz6U3eMImFI QyaSThjyCoIAZvOuF0X UmcCY1rgq10UGPdVGF8 bo5fnEMyhGlboaTxcXQ mHAbfW8EiDEEur900UA LuT6JwRCCrf7P6vfIqF mQeXYNidYZ4frU3LBNx BJa4xGKcxsA0kfUgeIJ fL4cbyW4qMWZkWM7euu nlv9hmKSrqQKhzMFHqr LO2yjB8YLWgeTLsX3Ga tM6oEJNuGJepNWKewlw 6FcIoYa9ddLCiiWwqAC xzYmtwYWdlXHBnbmNvb nRccGduZGVjXHBsYWlu XHBsYWluXGYwXGZzMjR ukEtmhXezyP6xUrBuOg FgBNkkHO3nLTMtM2txq MZcVMNuLGCgD0jbDkZd bB1bjNefDScyxyLiEB6 5wCOnpUupCF4bDJVeKX Nwv7BjzEHqMuVnNunoH ismULTyyvSDoV0kGV6a o5EmW9T3NL23UPoldTS pblxmMVxmczIyXGxhbm vbPRXbKIajD7gbEtPyJ UVbtBilLVvqn2RzCIBh XGZzMjJccGFyfX0= Diagnosis (test code = 34) k7zpjAMqDDXrfVF6ZKX rXSVjd1nif3IpsGAioI SkVMlmkALpfgFfzt74u GG7fN27AT8gDEBxVkB6 MGCjhgI8Znz9UDLeECC jvXAdP457r8upo5xxun BxsJU9yTptSZZiodtbM cD7RBsxVTVvviymPAs9 SEciFMAzjFZ8HXGqjWJ dH8PlYLAjEJ3ptwm9HA N6HKdwLJQuQqL2ZXEys JRqWGAlhZqqDLzkc998 XLO9IuNdQCUdlkDfnQl gdU3tYyFlKVUMmG7ePV QrHPK9YJMawWLsHHwiQ pSuEAUnj5HteCvreAGm LWLxvtc9WLEiNQMOVz1 KCFLNXD8BMQDyZ2HnYD PJOkKJErzRHX6dUUIfo pp4IKOjX3LrTLKfpA4t bnQuXHBhcn0= Comment (test code = 9835) s6zwlVYmJARvpKZ1RQF fIQJcl1uyg0NrgEBjoR GzBVxynIHrrkIcnc48s YV2lP72KF7pBLHdMtU5 VINtgfP4Oxp9YXOvFNX nkDXrD663a3ymv0uryi KqkSA6zWhoGSWwemulC eW9PItxXYDmeavlHZa7 TXcsGXOceAZ3LIBcwUX aT9SjXBPxAN0ykos5ZO C3CWriDCDxVnC1SLOpo CDcVBLamHbrNLupl135 QWW8PpStHYPxydAqpSe jdY6tKeWkGSMCcQ15qp 3gqCA3a4LzLW4oD2HdZ WW8DYcwtmDstZ80DEUy w6w5pQTwSAP4QCkunZ1 zSWtqIUV3oP0hVCQnlW frRFsdnKjry1MtWCMtu iBhbmQgVFRGLTEsIHdo uZuiCD9aL6N4sJHdHKU vciBHQVRBLTMsIFBBWC 04LCBhbmQgcDQwLlxwY XJ9 Gross Description (test o9kjrAFaXWYhiFLCCOa code = [id number]) wMVxhbnNpXHNwbHRwZ3 PzdgdfFFeyMO5yRC5rf ZguwVEglMOtKC8UKXEd ZmYxXHBhcGVydzEyMjQ vNCKgaBEmiTY3QZJuVK 1hcmdsMTgwMFxtYXJnc oJ9BRZqdEYuJ7NhGEDy YC7nqrbdTGM0LFbqlT5 nasHQSjyhJl3trRUuzI tcZjFcZmNoYXJzZXQwX FGrgHjiFAAxHFj3vB2U JrlvP35sn2J1Exu4KSU kWBEdE6DaVK0fDCAguM GaV49CBmuiFEB5GDAZE wpxCYQiXM3Mo9hyZAJd wCSmEQV1XKzwxKFfHNX iQSYjQDw7DWUzQEdkmB ZzYZ7cuJizQvskvCjjy 2VjdCBcXGlkIDUxMDAy RXwxFHXkXX6CQhUoNZP jEyS9FFnlCTu0GMi8JS 7MEiQcBHWrORIzFOL9Q cQsKYb0GVbqTJ5UOCGa NjgxMzUxMzYgNTUyNTQ zKDs5DOVrEEjmFYBnsQ FsIFxcZnMgMTAgXFxmY sHgEEYjKObcbcN0IXEi YWluXGJcZnMyMCBBOlx aNBVcXQktfOwzqX9lEW EeR83bj7THf2SnCJ0BY Af4wvNktsirpU8pGNYh xjQnAMpfaYJtA8laJdt fPaWpNcVvAQGTlP1fYA KjMDU0NOQztTChDZeoI mUsIGxlZnQgbHVuZzpc WaSeZ2FfFCYViTPiHWT wn5GjzhZaRuB5MD4pWl Vmw61mg94ntTZ0kPBbj WUgYWdncmVnYXRpbmcg dK9fAj1sFWclAI7cCFu uWV9tFXTkTYEhonTmhf IqoFXjjWJyhEE7YSBsq E9uNGGhANXmkGMweFUt fBzcBlkoyHT0QJcrOgy piT6daENMTSPACugCZk dvgsDqNJ8ROL6UNpDFX O72UuLgYQK0BEyTL6CB yUJ3Qen4IHl7iShuKle tmrDoxEWzMxLNyY2BHk heGnjueRH3MIvaDxngu A8qqXPUVDTHJvzZZxph xkEpKV1GNL5ARV1FeCP lLTX1sUE3JDEZAsixaY W2yPI4wJ64YEEtMZAst VUiEYfoO245XNMcTUsg TXx6zgHnRQMkNmCxZOm uVEKtF79hw2NKl0CbTS Vmp8mnnVltu2PapFSuK XhfQWHaqQRlKQvntC8o EzYpa1czaBz4CPicomH 1EQOnwu2mwYdxhH5yWF nci4kvAYC5QNVogYHov GCfGVkhcHltlU1hVrDt Ykv5FMhnSLZlP3VyH9Q sgiZ8PSJvLYhsWHSyKQ YgDQp9 Biomarker Block(s) (test m2gruMPuVHTynBL6ZQB code = 9841) dVDHwh1xxh1XprEGzkT FhMBpkjTCqjhTivi59c GH6lT67CT6jODZwFwK8 UJEakfJ5Qgt1NKEbOAL blSMaP123p5hkg8ysfe QyxUU7vCtoJKAtkksqE bJ7NWdqIOPkjlpyUQm9 UCucBQAadWP6TBNtfHF zR2QqDIEzTP0zzvt9GL I4NBvlAUKvCmI9KNQgl CGkGBLqhNvjSOpvm519 ZJB8QpEbGGQijoKnpZw huQ4nWnWtHWIPSrzoEW J9 Disclaimer (test code = p8vhbOWaYLJucOEeIgC 9844) dAMNoAPXgc5qqYQGqbC FuZzEwMzNcZnRuYmpcd UGcEZVoSvKqy9hrh936 pQRfg9ebCAKeTlW7tSJ gLUFjgCZwS522IVUzTF ily5nvb2DqSOIruQHzq 1F6MKTUkxdzvZf9eLck W83gm6B3XqecA5etFLL dHNRvN5SdGO5tTEQqAb q3MUZ9FAW0ROIlQORwL 3MxVF0qKCFfrPMdBMu5 y6njmIuoFMWuCKT5k5o iHEnrjhGdSZ7joz5sdX y7c2onpnXvTHVdQBBnh CSYOSUlH8CyeHguAs9x mUi1xQyyBaprZRG1Asl 3NC5ihh61izw2yQpeJJ VdhnlwRcU4LCxvZNTlp behQYh6CIzoDEDyfOM4 XDWoaBCyK1AoSJLzYX6 kzhd9BNK6NCwmMTCpDx W5HCTnzVGjWKJgjZycD Apyr663LCL5MyEbEH7q Z6Zpq4V6yN4oeRDmEDJ hkECvVzWaKWQsqk5noP EgZHibs3QnMFU2xjF7f MKrwJIfYEYvXL38Qbxv k0GmSgevMQB0MVCoasB xb4Pnz6oeZvQmjtIzO1 seH3KrQYUzGEFzMJFoH nHwpyHdp5Cer4TpwMLr oBq3g5jtEZMfZUCaaXc uk6ckCEH2MPGfR5J9cI Cvp1ntTDgqXWBweBE8k sH3OQTwrXWrQ8ChbK9w SZLwVS3ntgx5r2tvDIJ 5MBlzANYuBcU0vaP4NG BcaGVhZGVyeTcyMFxmb 849UKH1ZvTsUCWsw9Ox I8DnqKlzU17pgUtxT29 kNINqdRdxjI5puXvaqX 5cZjBcZnMyNFxxbFxwb CFjacvwZAorjpN3WVht ibqlGLQaNXhfC6pfShA dMZFodKveDMjrj0PzZS BeLWKuUwofynN6OWXNd 58oLYFvh4CsZOWneB1e aMUrZUpsvsNllVJ1QXo hdmUgYmVlbiBkZXZlbG 9tGWUnPI4cXOYjbsOfh y0knuXaGYRwTXYnD0Eb cmlzdGljcyBkZXRlcm1 akpHgLUV3OSIYMW2UVV MySBXdb69xTIPecVrcc C8ybLPzhrNxMUTsf1Xh yN5shSOKORCnP6pqOX6 rEVhtd5BssGVjoUXorK G9FSWpq4YtOzXlemVoo BUlmWRrZ8IcwHymT6aj EHPcTDXnniKdrUDyk3M mEYNgoMK9yDAbYG6THz OUn70ePMEuYMOLjaXiN GJspCwkwDL2ytQ4iJ4q LiBJZiBhcHBsaWNhYmx cQNHon482bn8dbhL4PD LvJQFryiery8KiKYCyY KOoeY43AYUtKCYlsg6w fsonuAHczdIiM3Jgunq 4xR0dRCZsPXjsDQOaPI ZzMjJcbGFuZzEwMzNca GljaFxmMVxkYmNoXGYx AUozA5uxKsHlUzKaXex wYXJ9 [facility] NGS Blood Antqzzr2226-46-00 20:08:22 Test Item Value Reference Range Interpretation Comments Molecular Diagnostics (Received) (test Yes code = 8400) [facility] NGS Blood [id number] 20:08:22 Test Item Value Reference Range Interpretation Comments Molecular Diagnostics (Received) (test Yes code = 8400) [facility] NGS Blood Lhbicyt4216-10-17 20:08:22 Test Item Value Reference Range Interpretation Comments Molecular Diagnostics (Received) (test Yes code = 8400) [facility] ROS1 Fusion Analysis Collection, [id number] 20:04:01 Test Item Value Reference Range Interpretation Comments Molecular Diagnostics (Received) (test Yes code = 8400) [facility] ROS1 Fusion Analysis Collection, [id number] 20:04:01 Test Item Value Reference Range Interpretation Comments Molecular Diagnostics (Received) (test Yes code = 8400) [facility] ROS1 Fusion Analysis Collection, [id number] 20:04:01 Test Item Value Reference Range Interpretation Comments Molecular Diagnostics (Received) (test Yes code = 8400) [facility] RET Fusion Analysis Collection, [id number] 20:04:00 Test Item Value Reference Range Interpretation Comments Molecular Diagnostics (Received) (test Yes code = 8400) [facility] RET Fusion Analysis Collection, [id number] 20:04:00 Test Item Value Reference Range Interpretation Comments Molecular Diagnostics (Received) (test Yes code = 8400) [facility] RET Fusion Analysis Collection, [id number] 20:04:00 Test Item Value Reference Range Interpretation Comments Molecular Diagnostics (Received) (test Yes code = 8400) [facility] MET Mutation Analysis Collection, [id number] 20:03:59 Test Item Value Reference Range Interpretation Comments Molecular Diagnostics (Received) (test Yes code = 8400) [facility] MET Mutation Analysis Collection, [id number] 20:03:59 Test Item Value Reference Range Interpretation Comments Molecular Diagnostics (Received) (test Yes code = 8400) [facility] MET Mutation Analysis Collection, [id number] 20:03:59 Test Item Value Reference Range Interpretation Comments Molecular Diagnostics (Received) (test Yes code = 8400) [facility] ERBB2 Full Gene Mutation Analysis Collection, [id number] 20:03:58 Test Item Value Reference Range Interpretation Comments Molecular Diagnostics (Received) (test Yes code = 8400) [facility] ERBB2 Full Gene Mutation Analysis Collection, [id number] 20:03:58 Test Item Value Reference Range Interpretation Comments Molecular Diagnostics (Received) (test Yes code = 8400) [facility] ERBB2 Full Gene Mutation Analysis Collection, [id number] 20:03:58 Test Item Value Reference Range Interpretation Comments Molecular Diagnostics (Received) (test Yes code = 8400) [facility] EML4/ALK Fusion Analysis Collection, [id number] 20:03:57 Test Item Value Reference Range Interpretation Comments Molecular Diagnostics (Received) (test Yes code = 8400) [facility] EML4/ALK Fusion Analysis Collection, [id number] 20:03:57 Test Item Value Reference Range Interpretation Comments Molecular Diagnostics (Received) (test Yes code = 8400) [facility] EML4/ALK Fusion Analysis Collection, [id number] 20:03:57 Test Item Value Reference Range Interpretation Comments Molecular Diagnostics (Received) (test Yes code = 8400) [facility] BRAF Mutation Analysis Collection, [id number] 20:03:56 Test Item Value Reference Range Interpretation Comments Molecular Diagnostics (Received) (test Yes code = 8400) [facility] BRAF Mutation Analysis Collection, [id number] 20:03:56 Test Item Value Reference Range Interpretation Comments Molecular Diagnostics (Received) (test Yes code = 8400) [facility] BRAF Mutation Analysis Collection, [id number] 20:03:56 Test Item Value Reference Range Interpretation Comments Molecular Diagnostics (Received) (test Yes code = 8400) [facility]Gu[facility] FNA [id number] 21:47:58 Test Item Value Reference Range Interpretation Comments Gross Description (test c9vktJOsYCGnaCJUYZnmK code = [id number]) WveaeYuOYYloHJaN4Aygf jaGSrpMC0eOU4lwBhhwTU cgOJqHF0PHKTiVhMaJFCm cGVydzEyMjQwXHBhcGVya VM8EFHeZJ4csfylBZldUU jeUGEambJ2KNAldWTjF3D aPSWiAJ3cudhtPUD1WQwg rM9jdxLUTrstMh5qsWHtf HtcZjFcZmNoYXJzZXQwXG JjpUmlVXIrXVb6eO1YHtg qJ22ss5B1Eln4OUJwZCQy E8OhIJ7zMLIztHSlA21CQ vmnPDZ7DVAKOxsvGGVlLM 2Yq8ntVWRaiDIeDFF6CRp pcWIhOGYbCFFjSTy4NEJc JZsjcWIeWU5apPxfEwlfa Bffl2VbjNWaCUqyVWHrSL OaVVvrWUWgNH9AEdWqQTW bYrL2SmRtEPc3IRy6DR4G UyAiICAgNTEyMzcwMCIgO Yq9OFblXH1CHENpTNV2QP R9EQEtEQWhTdLrSLj1GZO gXFxmIEFyaWFsIFxcZnMg MTAgXFxmYiBcXGZsIFxcb vF9OBEtCNfsBDVkZvJjZZ BBOlxwYXIgDQpccGxhaW5 fKQFhP77mb9CCw7LgHO6N ECo4kiClydmdnS7fRTTob lOvGZxtaDWuZ4kkX5NuTM YvWtKnS9SvY3ecMO2lNJF gi2K6vcVpRfgoQYCiIJls IERpZmYgUXVpazsgMyBQY TUtU1NkzN0uC1yeMTHxTQ BhciANCjUgbWwsIFxwcm9 1EDS4x7ghrIAeEEhzCakl lSRodeR2QChQWPUVOGmDI uWvOE2zLMjSH6JTHDpMBt vvFRK7YGlaqZE0z0wekDQ ow3v1BGmeUJM7rCNksKae hKz8POIcy6WotHKywIUjf KTvpQS5HLRxPVfbl7gsWB YnAZmez7KhONvKCSVFCK9 GYA9pgAD9Y0zBAFNID0aV tMC2j7kyfIYhf5y6XVziP QS5yAGle90tuNrrHpaefR T5NBsiXxwjbF7fmSQPIZZ TOyyCKaxdamCaDU4FCBvZ UL9AwJA3k7ruvCMyg6q4W QqoWKS0rSwikSRnmwhkoH CfpHrjnk92BCO8UOEeAMu mczIwICBmbHVpZHtcZmll mSB6GTfgMogquX0fdNOOD QSJMgwILklntkCtNR7QEG MLPP6FwPO4LjLyaWJ3FH2 9FCWuYPKqtTHlZQwnG403 RNGxILrkAPw8quTiAOZyV NakmzGoXRYgxuXROG5IYT WvgvZGWbOhS0JbuDRZeW9 uw7zpTIEsXYsIKPRpQ2Wy cDArDGopZ5NvMVjqNNBou k8suHxaMeRdeHUwjCXvnI auJfO8HULlQLaro5gjTYX xUWssq7ImLNrMEFEFRR7Z PT2giPB9PIqYP9HQZ0nFz BIuRLuitGQ2SG2NFVyASX MZjEW8jHbgaZx6d4hobVL pm2e2QStxONZ9mLK9GdU4 FnPyu2gztBHwINvnDbqqe ITrkcC2JFtQIJUFACmWNu CwLK9vTFxUIzaTClP1PFB dZzJ1E6pAV1FIYUCEKAL0 HHd2wJB0pY38PTLxRMCzv HLmBMxwG032RIMiPLldGY c1wcOrIPWySdMtCDMcVHN mh0SrN6S1FXLzBQocl1nb YNFgYZkbe1MtMSsMAZLXX Z3ZYV2inSX0PVpTE5IBN3 cYnVuioYR3Pt4QnYU7sRt ccEc8i5wlsUHkz7l0GFrw HUS2xCY5NJEuQV25TZXnD Bnfi4mqNHEhHVflo2NsHW gAKHKHCO8BTG6moXC5UMs JI1HBKId2Gwg4cP8FY6pf bZi4UGo5yBrjZdzsxmScd IIzCtAMaW1pzHteaX6hqN SbR3kqD2JtEGRyTxNtRYu iMTEuXQxwfYCsZO9LB5l9 EOpjJn7cHQ2tWJXgzvTZS hceRxOcL1YbD6mxGW4jWI ZmcUVgP8uns1ZxBVPmzcM tfu4fNGXelCPHQyIAVAO4 vU8dtsaeJ3TnBYGCMLyjF WbytpYGEAEELXcRR0AtXT MGBWBDWVBkFoHHKL8qZwG 4EuI3LX65BtjfPNQMTCDA HOlTBA0TTCEOTWVVXS1JX pIxQ2rSTZPUCdCuFVBIBY APYUYtNfBNYE8cNje8Icg jr8W4T6nONDJOKlAiJCOZ PPKGIBZlMV8YFKVLJFCJB V2JUERXW07AUIRALRRAY3 EDM6xEHWYsh6SnyCnnVfW 0ToOsAQ5fUYkCD3URI4zH FZEdTELHRSFHDZPdXE7QJ EoLRW0HRQQnLVBOGTCOYT LuWgWHSV3cZToAXH6JVJS fKPIKSBMUTIQxGU4WGVXE XW3PTDUUUQNWT55TBZJMN YXDX4PEV0hSOJXEBOHWBx GGBpPZVN2QEEPHXQNVST9 FTkQNClxlcGljTmVzdERv PxKlczG4QYUzsYJmTEV2B O8rYOJtanfzMGLyAQWeUD E7NPoemE94kODoAOOgLFK ccGFyfVxwbGFpbiANClxz kP6zZnUta5owuLo9EGNUN chqmTOarenygwR6FUIen2 wyaLics9JtqBAvQL2kaMb ujY6gUnYpUeRCUd4= Immediate Assessment Adequate cellularity (test code = 9837) Major Classification NFMC/benign (test code = 9839) Diagnosis (test code = t7edmGHxKZZfrHA8UDIfR 34) JTwk2gtn0MvqJWejXCfKG ucvGJblyPvdq59fOY2wA0 4SH0mRVDcNnV4YQUmrnY1 Rfc8BIKgVJRuuWUnG805c 7yds8njjzUbrTB8EAJbVZ DmS4ReYP5pVBQebLZqN68 hnOOgBEX6ZLGpKKHrtRUb PTNeEFF2HAIifHEjY0wiA GXsAE2dhqqiETpgXYkpWT KpyMD0KDAqhTYcJ3LaPTZ bQQstAZUtkul2RbJpPk9k eRGpuSiyWIygS3rchZ3lA uW9GKzzX1uirO4lOHe9LG rtLCFamSP7dpS6WFIfjIE uK8LtkO9aNZMhFX4kief5 s1ggPOG6GVtfGQKrGaI7i tD8HPJtzPShUKakrAJwkn xmczIwXGNmMSBBLiBMeW1 jdKTze2KtGWQiSXKriJhw gLgfe7DbFOGwz8OhtP93E WNlr2PpokjbPWGFodagIv luZSBuZWVkbGUgYXNwaXJ hdGlvbjpccGFyXHRhYlxw YQQgxTu5UvIulUfyEkQwL YCwNUGPsgOtKXYjt3NrbK xhJZNtkmWmhh2yYVUfJOZ qfRjhbMKjEZTzvyTOm6u5 rJ0lpRevfTLhqQmvoAfmq IBoW7DpzCChm2L9pMZ1hN 6bLXOytcNhb4YvyiUqq2u 2sUStfD4blWPes6WjDYKt tTVczO9qXTNkxf6= Comment (test code = p9ceeSEgMLVxzZY8LAMzV 9835) BGyh8gsf1ZyqPAlhFEkRC dqjSUzdfTswg76uUD1wR4 5TL2rUYKqSqB9NFImcrM7 Qve2THMjBFRksVBkR765b 2wyl1isidVutOB1cTzoAS ZjgwfkPmB6CNagXRHbpet yPHq4VWvrUJIvnVR4OKIh zTPfD3IcKJZtLA1lhbh4D WC5YNqcOXHiFoM1RBKesR RePXDelNxiJVprm743GUW 1OhYsPZMqdlJflRldhD5r RtYwIXLSoEBhJ9QouPNts W4nmvXnchJkSGYwhAspog P7UZPvC02ybIMuPwD9i2N 0LHUks9SvSWPpFRzgjcsv dOcbAFPqe4ZzQIInTEzgp 0Cgcv3rnIYnyN== Retained/Biomarker l9zouKRrBAFuqEN5AFVwG Testing (test code = NRiu2uza0UowOYvlYHgNO 9838) oexKCjuwDahd03eOD5sP2 2HI0aFSFeWzQ5WEGchlT9 Jnp2SWGrWKMmbJTxZ805l 9jwz0wukzXqoLG7qDadKJ CpepnqQnT3XBjsZSDqzeo vBWz0NMraMQTpkDG5XOGh aJZdF8YeXOFuSG5pxjh2M JV8UOlpAXBxNgF6ROExeS OzWDQsvYnqHVhcy015NWL 2XyKzCSLswwBtmWvxpD3k ZnMyMCBTUjogNiBTLCAyI ENCIFxwYXJ9 Informational Points d0qtvSSqDJWzbONiMnCyG (test code = 9836) UNtNOQhc1ckDMLnxEQcMz EwMzNcZnRuYmpcdWMxXGR lFmDhx8goj067rNZql5xl LQCmUvP4iSDsITChrXNgN 444MCAmJZihi8gje8WqPP BwyOOqz3Z7PXCOGUklFVT WNOo5i4qkZcLiCdN4vPBr ZSbrR8tcgrKorKGfISUtZ Co7wT01ALBzxM9ztUFrBG mijaDwXsZ4YYhhIRLkAsY 0XPPgdGPsIJPxZ9fxNGVp WSsjWZWcMTnvzDNhCCJ3h Wsbb1H0uCQdzBRtzIcsXo WdStYpBkFCp7LeGJc6oVy aN0EoOWJcXnR8mWIhDCBu YZaqEJKpMPMvcmE0eV36Q VaepaW2mPVrg1Amy45ol0 81bN8hnMJrSDB0QNVeXRN goHCzGIImKHC2IIDfdVXv N5unJILnUY1nkbysTOjxI UtvZROdaXQ8AOBciNKqU2 QcQAKhTQiwEMHldiz0VpQ yTo5uzOBdvLjjGTczm9fo f8xejZFiPmn8JXNcRyMqF cuiEVdon3Qjv7rhTSLmhn 5lYKQ8sWCjvEdjh5G9bKN xXGRudGJsbnNiZGJcZmV0 AOhaZS4nrv63BWIoGXX1x j8pcKZioIlhaoGpsMLeRI bbT9ZiESIiz731OWKpN0S hCUMbg8D1ajBjTmJtVLJo xJQ7imF6HPVtWEo6tWXps sW0erRuvOYgM8itbZ4bQC DrHL3rbdaae6yvFYurGRz zAMBuaNQ5smY9VCJztKAh R7WapW8eFYCyBLwtNVPya jc8VwLzCo0mhWSlyOffBN xzYmtwYWdlXHBnbmNvbnR ccGduZGVjXHBsYWluXHBs YWluXGYwXGZzMjRccWxcc VtxxE9fHeUoLtChLXelZI 8uWWFvS5bofFXcXVUnKYO dO9ixWkNkmH2sdDtyBRai biT3UCiqF69yFDJ8KYF3r yByZXBvcnRlZCBoZXJlIG 0heQWmPUQdMQCuNF0cLNW 2ZWxvcGVkIGFuZCBwZXJm z4TvKN6oOEInjKCsQKD0C SBnc2ElA2KuVXH4FZOwgY 5lZCBieSBVVCBNRCBBbmR femDzyzASKWWvy1jnE0ub SC0nOXhaNb5dMZYqqcaoB WVkaWNpbmUuIFRoZXNlIH Hwn9KnCDhzqhXsvb05OEE bQI7do5InU1evfZRcnEy8 BLHnRBGbRYMbo0UsTYRga g28ZVMyFklhlHlqMSZeTg 6qSn8vNDWwtpMlWMR9BiS HAE4xfmggrNPxfPgypr9x XHBsYWluXGYyXGZzMjJcb GFuZzEwMzNcaGljaFxmMl arZxTnOKWkAJbbV4vxPeQ cZnMyMlxwYXJ9 [facility] Enoumvgicxrzok9998-01-07 21:47:58 Test Item Value Reference Range Interpretation Comments Gross Description (test a0mqfCLqRNZocOYGTLreZ code = [id number]) AovoyFcASNqbDVjL8Qplx jdPPvsLV2dLC0pxRuciIA jzIVjAP3DOWRxNyZtYPZj cGVydzEyMjQwXHBhcGVya ZA4UMAuRR2qutfqPArdUQ jaVOAeiaZ8XWWlxQAeA4F pYJHkTC4hyhsuAAQ8LJxv kG1gxvGHJxkrQd5utCWqu HtcZjFcZmNoYXJzZXQwXG NilQuvUTYiVPz7qS1BMoi mQ54wp2G2Ggf2RCKjJFTl D8JvRZ8oUTOoiCSeT75RX qppZDP8YFFUEcelGCShPE 4Kk8hhORInlBLlILF0PJp tjSNhFGRfWGZrKPx3UMJv TBxelIWbZA4qyBycPxbyy Dkdq1FvxUOhOQkiKWFaED BlBEjnLVRvSB6UHzYqEFQ hNnP0ZlErWIt6UVx8QT3T UyAiICAgNTEyMzcwMCIgO Xx2DPwsLF4KGYWxSTL6QE M4ZTGhMWTuJbKrQBl4YNT gXFxmIEFyaWFsIFxcZnMg MTAgXFxmYiBcXGZsIFxcb yP4ABMlYMfuRLZtYvVnXB BBOlxwYXIgDQpccGxhaW5 sYAFcN52uq2NNq2VdPZ3I UPf5rfAqrmkjbW2qFXMvz oUeQXfebZQzL9gxV1LuAL UyHjGnP0DoL4efLH3zUUB yo2Q0atVrPrloBEEnNKyg IERpZmYgUXVpazsgMyBQY EScR5UvtA0vZ5qnXASuFK BhciANCjUgbWwsIFxwcm9 2EOA9i5jpxDPwTHolYxuh rFMrepO3VXsVNDPHARnKL xAdFB8mBIxUT8GWKGeTRy knHKW4WMdluDB5w1oytPC sm7t8RFvyXHR4yYWokGiq cBp8OCDuy9ZsyPUzjPLbo SPayYN2WYCqGIcce9diSZ TkOGgak2AnQLkFUQOEQJ3 VSP0zzSA6R6aAALTSS1oR sNB6w1xkrONzo0m4VVorF YK1wPPuc45itRrcLgcdmZ N8UNnbMhhjqZ8jfXNSXXS CNekSCckksbPmRB1JAObV XM7PeQI6k8fheKUar7m9C VbwRDJ8xYrbcNVzfcfvxQ WzqQnprd48OIK0PZNgDOv mczIwICBmbHVpZHtcZmll aSX7EZdkGojrjO1dlQOJB JFHUfuNKymnetLeYB2RMO SJUH6GrYA3LaHbnPP3NU7 1MSSlIXOnxKIkLCvmK409 MFWnVRwxFRr4kkAbAQXyI ZyxqyQgQQSkckPVUP7HZF IrbmDSVgZdM4DibUSAjA6 mz1qvOTNuGYhNHZOyB3Ur uCFcXSrlP8OpCSzxYSPfx c4otNqnUtFzeZEkzFSndX xgMaX2NZHjQXrvu7jyWZF vYFwzf5MwJFlJDTOEFV2S FG5dhVL2TGqNG2XOX5nAj QNiGYbluGD0XX9DGNcCBS POtPU2zIdorKv8w6jveXI bt4l8JFhtXDR6sJU7VhZ3 ZsNyb7krmPDrQJueYpqgi AJfedC6IKmXKTTQOGeBTu BqTU4vFVcLMrvLHkG6LHF aQcP8U9sEO5ZIZMVLTRX0 ZGt2vYV8vB07VIFkPZKje TZgZWqeA040PDOeKDvoKS y1wfPqPWCuHqAcBWNsCGJ cm8BgJ7Y8OPQiKAlpz9ch SKYcZKjlo6YnNIrUVXHUI S6UUN4ofAW7KZqJW9BMS5 oTbKenrDA9Fm3GbJV8fHv qcXw0l6kslDLzl0t4OVmb OBT5bZD3XVFkKA12GSRoQ Wqhs2gzNVWpYGddm6DdTI qXMNGTOT4ZMJ9moDB9YIq BI5UBLPo1Jrj3vP9IV5xl rGd2QAu3qWreIsxayxRpk EEqUeDNqG9uiPbdxQ9qrG VgV0imW3ZhBSJrMwOtPVo zTJJlPQysgGXlRE9BM5j7 VWyoDp2qQX0qKPIppzWTF hheRrJbW9ZcC1dgOQ7jCW EkbWAcQ8qgx9HjSLZwtbF zxr3pFLEgnQAPOzLLOHT8 mO1xgivcQ0YsNSKNPEqlD ZalqkFLMBUYNMfYO1LhZQ YEMLFRVUSfOxKZQJ2mYeM 2HkU7KW57ZzxnDFAVPSZJ WXaCLL0ZJTQVLVTQBK3RU iJxL2qJVXVTXbVrOZPAWM DWFMZuMjPMGA6vCbb8Qlq lz2Q3V1eLRMZIBgMwXAAX CQPHXUGrGY3RHPERVMLHH O4MFQIBA87DEUIIKJERW5 LNG5hTJKZro4BtzCioZzS 9VgNkOF0mLVeOR5NSE9hA SLMsMILPFUUDEHYrVE1NV UdVME4AWRAeXBWRTZWRKF LaHoZPIQ2wDWdHEV5QYLW yPRCMEXDLSMYqOG7TSHFT BZ8KFKVVQZDBL91DSGXGD TOZY0CDB9wJWECCZJIDXp NVYzUBDA8VDXTOHDWQSB9 FTkQNClxlcGljTmVzdERv VqMxfpP7GAFisXNeWAV9B V6kSDHfdzptIVXxIPMcNA X8JTnzcT95aWXcBSMaTQF ccGFyfVxwbGFpbiANClxz bH0wNsQjk8kgeIy7HLIDQ ixhoHSonbzaqdU0GNDzf1 xhvRcsx5CjwDOjVW6qkSg qxJ8rEiUaYuHKIo6= Immediate Assessment Adequate cellularity (test code = 9837) Major Classification NFMC/benign (test code = 9839) Diagnosis (test code = v7xmlZMeERKouVB0QDYbE 34) TFpy4cbx9DkhGIjjQEfFB qmnBHdkmAimi94rUK2lV4 0DV5jHYMeNiJ8UOGnahK1 Hoq4QASgINMfqNVgX485o 0kzk2ojnwMykXQ3GYCoCO LrP0SeTL8uNAEouEAuE12 ooBXoNIG8XVQjGBZtkNCg COPjWOZ0VNTumZEjL4uvR PCoYE5yrapcQGzkQHrkNG TniRO3CFQznIGvO9XpJXG rGVxaQIDszge6PtCiGd5g eDTryJliDKjyN7mqwD9dI eI5UYzgM2kzsT5oIUl4NX geABVtmIG6vvS1FLKvrPC zM5GpuG9zGPCfBD8fdun1 w9cpYAE0TZzxMUDzRjL8k oV5BNWjpDErRGgyqLTuaz xmczIwXGNmMSBBLiBMeW1 tlCUzh9BbNBIgYBNvmRru oFfka5OcKNRtw4TtxN57J QIsa1TaijioHIGSsztzHk luZSBuZWVkbGUgYXNwaXJ hdGlvbjpccGFyXHRhYlxw WOEezJp2LeBncBerZuDqX XKjIMFEexNcGZWnn4JbfQ axTVHeenGkog5tCDUdALY czOfcxJLoGHClbaZGz5d7 gH3psOclzDCzvCgtnOwhp JGoH9ZzfSAcx3V3gPZ8lX 7wWWRvvcCpx1ZzroRki1y 8dLIwbM5rxMMzx4KrVNEh kCLykJ2lFKDbhp0= Comment (test code = g9ingAThHAKdvJZ1HSIiC 9835) PIim0uvu0OcgRTawZBlOS melKZqwrSsus41rLH9nT1 6GW9tRRQfYbL1TQUwwwW3 Mgm9AOOxTPIwuGQgK331v 4qhr7qnzeDifCB5dKhoYF EqbpusDoD9ZGfzEIRgbav dUYc6JWkyGZSoiMK8ABQo bZWbJ3YzOOPtRN4hlmz9Z VM0XKtjBERdHuR1KDEtqT CdBIXkiInaJFjzn144QFH 6AbKjCXVrcrBqxCkaqP3k UlBwPQVWxEDlC1UecUQpc R5tzrGlmhOnOKFydKsaqa O4TKSdV34zpOOqLpO9j8B 3VZKut7WaCQDqUHklclps cQuwRUHin2QzYVSaZFuvs 9Bpzv4elQSvkF== Retained/Biomarker c1fbmONbYNTdbXB2ITWxT Testing (test code = HQzs0nnn4HnkWLdiUSqZG 9838) tsbDTtebFgqs89jST1yI7 4ZP5oUOIbHoT3JWLzwnR0 Szb8VOFyPAYrhZJrQ500p 9vkz0fgwpMcaEN0hKdeUY VugnnpSrH3EHncUPIzawg bTWo4VBknYSOnaPR3CEAo zQYuK6YhDCGdKE2gcpw8D RX4VCeoDVAjZnB4RDQjuA YoROLaaCycVAibb780QDC 4KiIuOPJglmZllJwlfB2e ZnMyMCBTUjogNiBTLCAyI ENCIFxwYXJ9 Informational Points t2ekeRBdSZCszMVhJvXgP (test code = 9836) HXtHCGsn8idJAWpeZFxLx EwMzNcZnRuYmpcdWMxXGR iZlKry7viv624fANnb7mm MCMnBxD9jMRcZXCivCBrD 799EKQkFLopz2tko5YwUZ HiyQXcb6Q1PRIHQFupOGB KVYe6d9wrOtKuKvS7iFKk JQlaH4wdvfBgvKPdALGwK We8kG13UGGsbM6hqWUqEH wtslRzIpX4OCfjPMRtLwW 2HBFkyXMvNHPtN9orNEWo BDtqBKIxEBvpqMDpISZ5j Goya3T2rQHbuDHkdXrzKb PoNzVtZeYZv2JuOYt2jBl yE2PtADNnUdA5lRJiECMd SOduTEUcPNLphvW6gP24D EazuaD8jNLpd4Vcp75yy9 95gF9qnFJlAWS1JGCePRS hcXNtTUSwKUU6LBQxcKGb S2mmMKUwTO8pbtchGMhcG EzkLLMlkAS7GDAzfRUsG0 MfBOTfJCxlTWWsoxk7DvK zRu5hlFYwsYrbFLunt9wz d7xhtLDeTpm7QQTqStDzR exmXYqig1Owk1bkXYJxqy 6sLUI3dVQrbTzqy0G5dAF xXGRudGJsbnNiZGJcZmV0 LYarJW0kcm48YOPrUZK8s m7eqYXidLmuywFfyCSqXN jvK2HmDCFna757QRDsC9M nEJHhi4L8dtNzYeVmTNQn mEB5bzG8UKKkJSt0iPLvw lU9qbMvhLSoO8pkqT3pNB QrSR2lkwbyo5eyOChpVRf eKEHjwOF9gyE4NSAooNPh K3LmwN3wVKQhOSeqTICyx jq2BwIvHa5rfOAauTajTU xzYmtwYWdlXHBnbmNvbnR ccGduZGVjXHBsYWluXHBs YWluXGYwXGZzMjRccWxcc BulzJ0bBwSfCtBeCRwuNY 5xGUVaX5gszTIuXZBuFQB iN1ryYaSmiH1tbCbfYIpc zyO5SCdrI09xHAL3YHA1q yByZXBvcnRlZCBoZXJlIG 9hcFDsCVPgXHMdKV2kYCT 2ZWxvcGVkIGFuZCBwZXJm c3EuDB3oBBOaeEMxFQM2K OVqo1JtB9VsEBO9ARLqnI 5lZCBieSBVVCBNRCBBbmR fmkSyomIGKRDdf0vxF6sg SE0fJYudKm4dQGWqxttvX WVkaWNpbmUuIFRoZXNlIH Xjm9XjNXgqrlWxmg46KLW eWN7bv1AzN2gzaSRngIb6 EEVzBTNcZLAop5BhEDKah y59HECmHtwspAdwBLSvFn 5xGi0fOCKlicKbMXF8DcP JBR2mbllrqDXnuTnmfb3h XHBsYWluXGYyXGZzMjJcb GFuZzEwMzNcaGljaFxmMl uiJqShSBUuDEknA7zwYpI cZnMyMlxwYXJ9 [facility]Gu[facility] FNA Anocsehpqlcmye6474-08-21 21:47:58 Test Item Value Reference Range Interpretation Comments Gross Description (test b3wipSLpSFAvbPYATAykV code = [id number]) LnwprOvBRVhxKKsZ5Duhi noHLvtIF3iSG4ykNaepYO pcDHzON5PEHWyYyHcJSFt cGVydzEyMjQwXHBhcGVya ZL2XNSxWR2hdcapHZjeXP xoUGGqidI1MEDbmQCuN4C xMDCcXU3orwriVNC5UTja xQ0ghdGXUgimLz6qfJVgk HtcZjFcZmNoYXJzZXQwXG TspZkdLPMeHVg3cZ0MDph aD68pt6S8Arm9TFQaAKXo E9OoTK1mSAGegEMwP04VD uvePQM9ALWFJmyfXHVeNM 3Iu2tgNQTqmQIgLZX3ELu deVJaROIaHGBhHCt3PIPj TDylhFZnWH9mxNryJpzae Hzzt5JhvJJwJIxyNOIhWU YmYQoyMFZsOC2MCqUtXHC wEiP2VeRlZRj5WJf0YO1G UyAiICAgNTEyMzcwMCIgO An0UKzpHW3SJFNoVWO8ZI P8YFDnSEBhDlXeDNb6UOG gXFxmIEFyaWFsIFxcZnMg MTAgXFxmYiBcXGZsIFxcb xR1YUPxAErfYAAlIzPtHN BBOlxwYXIgDQpccGxhaW5 yYNWdV24cw2ASx4LaPH1Y DJp4doFvfheckN1iRBPwg hFnTCkphIMsP8eqW1RrZI IiPsJkA6EwI2efYN5sYLF lz8M6zjAqTtmnKUQbOFga IERpZmYgUXVpazsgMyBQY EIhB6GwbR8aP6udZLVrJF BhciANCjUgbWwsIFxwcm9 7TUS2a6sqzMAeHIumAykl nYAjciK7SUmEVUZGPRbGO bGjPW9lWIdRT8UBGPcOTm aaNAS8GOaclUB1o7czxAC gu2a1OVqiCKQ2cGHneIdw fJb7QBSai8EelKFxmJFab VSywEP5PTVsZGyhn3xnJO ZlQSzpk5TqTZwEBIOWEY4 MSG3oqPQ7Y6qKUXUVW7fS uVE5m8troTVwg9u4ENqwJ WF5rMAis99dvTrlIitykG G8YEpvZvrjbI1ksKBCISX XEdiNAzdygkSpBZ3FYKkY LW8IjCG3i1sqhQCey0e1I ItqKQS9pEnieBLkxclezW TdrPssrx65FDT4IODxHCr mczIwICBmbHVpZHtcZmll qBT8EXjxNtdquP4teJUJT YHBKooJGmxyhuOrSM4MLE BKNG6QrIT4ZsIozAE5BS4 9MLZhGNEtiDWpFAulQ890 LVQhATpyUCl3bnJjSAMwY FmzeyOrCFBfztIZPQ0DLQ IxckIALuXtR6CbiOQOmO6 rc2vpXGJcIWkHHWOuJ6Zn mLDjBKvyA8OtEJytQMFux z0ajLyiSjSokXOogSRnhC suVyG7AMRgAKudv2erIHJ qTJmcw5YnBCvOHHHOYA4N RM2btED3XZgWK1BIC1gMh JFiRKfowXV5VL1UWMjENJ EYtBW0kMnzoZw0m8prhER cz9k8GTewWUB8rZB2IjK6 PnIsx3jshPTwKNyoEosxd DGdnhI1NIiZMVPWXFhOFe IwVJ0xJNfTCzbUUkQ4TCG vMnI9X8pXC9AOTKDZJVO6 YBy1aYJ9fG96MYErFSEta WQmASabW189PVKwJGlyDU j4wzNxOVKpDtQrNXYhTZC df2FdL2G8PUEcFWjda0st IPZiSMllw2TwEYgOEPORJ N1GWT0snWE0UKaDT5HGT9 wYuFlutRK9Mm8NiDM2fKv dmSx0t1exlQKfi1y7NNjp NUL4uHX8MHPyLP43SBHuX Cowd9vuXYXlPLvbr1FcDA yHMWAXQU3SSO7dqUB4UXc MN2VAQUi6Whc2fM0DO7pv qXp4UGc6kFdfByfdidPum YOvOnUVxH9duCmihJ7kwM WrS6vlN7BnOZShKaVfGEx nICEeHVproMUtPA2TD9s9 VCnuCm8vXH2gOICnsdLOP mngMcLpV1SyY6bcPL4wCT DyfPEoI3gxc6NdPLCyjcE pyt9fMCNuzWMTIxBFINI0 jD1qfnirD1TwQVOIOOlaC PlzvcTGUQTJWNtQP5WoRG VIBZKWSUYxZlTWPH3aVmZ 9VpH6UO71UcadSQBLUROD FBtLBR3ADYVGCZMDKJ2SS sPxA8wMTCPECrGsGIEVRL HXKAXySsCMHR6lKnk0Com hp6S5T3aWHRXMRsZgJQIE IBQSPTNoWU6LUORYJFNSX D9HNFMHX14MCBAUCZGWS7 CJQ1zAPPOiv4PrjXdpVoR 4DpDzXF0mBOmVH9OUC8uL UITkKBGUANHCUJGqSB3IG JmSLF8CKKMdTLDTJHLDZK AtUoDNHL3dCPiVTA9TICL bBWUQMNJMFNZeOR7QDFPJ DP1ACAOIALMDP90FDWLYJ OITD1KJR1mBFDHBGVJKXy ALYgPWVM7KURAYFKXXPE9 FTkQNClxlcGljTmVzdERv GpXxzdL8BCXmaHZyQMF9A W9vJEZieuyoQFTpHSHoDC Q1VBwyuJ42hXTiAHVpDYU ccGFyfVxwbGFpbiANClxz uW8dFbLoo3zsxIm2JBXON vkbrWDoxzgdxtB8COSwx1 aeuQedn9CjoLHlRY2geBa uhK2lNaQeAyRYIc2= Immediate Assessment Adequate cellularity (test code = 9837) Major Classification NFMC/benign (test code = 9839) Diagnosis (test code = r0bcnCCvSAGtsWT9EWOvT 34) KMat5lzd3DdeDYcsLTqQK koqDZejwZfck00sXJ9tX5 5LE3sSTAcXnE3SCHzrrW7 Krb5IARbIDGbmGEmZ784t 4cgr4okbxVshEK5EQLcMV ScA5KrLO7lMTSzdTPjY08 xjCCgVTN8ZUPsEFTyxHHp ZLXdWVN5YWPbtJOwQ1qpT LWoUF1ghpwqUXjxELqoJR LrjHB6OXEziWNfY4VuZYJ vDExiZNTpwsy1SnUaGe1a kHXbgNgbVYgdJ7zduY0iJ eC2KRodX0qqwM1eKXe2TR mvWFNkiYW1dmO4HDIhgTA cK9FxeL7wJZQeVL0eway4 f3upCKK3PBnoCWUoWtU8p wJ6PSVrnUVxITbcqHTxxw xmczIwXGNmMSBBLiBMeW1 scSYsa9GmKWSzCQMpzLbm mLvid3ObPIBrt5VqfI64O HLpu4DftuyaXYUSsqjcLi luZSBuZWVkbGUgYXNwaXJ hdGlvbjpccGFyXHRhYlxw TPIzaUp0QdYgyUxnNkMaZ QRjKRDKejZzLNQrp4LimZ apIXMqaqFayh4qPUFbDXV rgJfqmYJsSHZfleEAm7m4 gY8ukHcqlFEvfLdxjRbqf DQuR2YlaFIjp6M4vNP0pN 9hFOUvvqDbl4CtbcBme2y 6wBZuvF9mlDRbj6CqZSHz qFCfjN4aZGPbrs6= Comment (test code = c7hvqXFeAYVmqMI6CSMaM 9888) DSdw9dno7FdmZQceVYhOR sozNZgfgJguc67bOB2qP5 9HY4pNFFkYkZ0CDLukxD7 Uld3QSCrUIBfoSUrI958l 6hkt1lljrDolYM0lXlnNM InxcewZxU8VKyeUYGjsyl jGKf9TGcqIAZjhRM9MHNw cBMeC1XjKQJpAY4uglt1E GL9CQsxIURyKoK5LONtnW TbQSOjdZssZRrlr254MKZ 7JoQaWTLogxKuqIcxkC2s WcNqXCIMeKQiU9VzsYVzr B7gktHyhoHlCNQraWmdrf B4AWZtP20rvUIdNaL3f4V 1VESyo4PoCVDcLMwnbejc lWuaYHZmx7NdAFQxBJlfu 1Kytj8bpKEbfX== Retained/Biomarker n0vrpYNmLBAzdAM5YGWzQ Testing (test code = GScm9gnz6FvxWPypSQgJR 9812) blnFOmzdItar90rHY2wN9 7DT6gFVSfIpK5YWBoxpQ4 Efo5JYElCGZcrCKvQ863a 8rol5usroOzcSH3xOltFN VcycfySiX8ZOrfDFBzehz sQIt1WNrnQHHwuCX8PCBk aWBjE3YoWOSjJV1tiau2W JQ6QOvjZNMtZhT6CUFrvY OdNFWezEkwAEypo143FXX 9GxEdGXTrbdPxuCewrV6p ZnMyMCBTUjogNiBTLCAyI ENCIFxwYXJ9 Informational Points s8ednOCeOIBnvMFuHmHbQ (test code = 9836) LGqPOVaf9ltKRIzpWFfXm EwMzNcZnRuYmpcdWMxXGR tHfJkm2chj350tTThw5yd YCXuXbG3zXKsCLUqsTXtR 309JGRlAPpsx7ong4PbIT NenPKqn0U8BHRQAPhaYYJ UGEb6y6qcVoWpPdZ9vHAs FWjqU8gjfgOrePPcHSWkB Sm7zY64DIBbxK4dfHNrVP ltqeCxQjS8PDmmKSHtYqB 5RJPntVQmUDWwZ1hkHDBs TKwnUTEfPVovlSIpPYD0n Ghpa7U8aZXlpIAtxDajUb JbAxIwMqRKb1RmAKz3kSx dN9NrKSNxNgJ5xPItOIUj ALvfORVqEXAnrjE5nS63H XjcbsJ9kWBtt0Wjw01vn0 04tS6jbSVgCJO5PROfLWG sfKHiBFAeBVC6YBQabVRy V8zgCTFkUK9jdxyhEPscP DssCIKrvUE2QSRmsHYjW0 FkZTBmXAyoYHJckwz7IeA nXb8plVHmbMmiFLyun7dp v9hpzHCrQgz5DVFlNwAqP jjtJLako6Zet9gfAPPrdr 9eIGI6yNLteQbbx8I1fJN xXGRudGJsbnNiZGJcZmV0 TQvfKB5lro70NBXwPZP3s x7swIFinAactuXopYCbOO osV9FdKMMlt186JVOtV5B eUSCqj3H9azDyNnDwQCHh tJM5ofG0JRUlSDe9eSVqg vH8siKjtXNtV5bxxT0eDL HjUP2dkfsnp9efVGdvILl mFZWrbRS2bcT0UXXeaGKm B8WdbR8dXKHuGMpuDYIjr hn5LuAdGw6rgWKhqEyxPC xzYmtwYWdlXHBnbmNvbnR ccGduZGVjXHBsYWluXHBs YWluXGYwXGZzMjRccWxcc YrqqV3rDkOfCbTxLBqgGP 7hMSVtG1aljJOrQOKfXCX qF0gaXuEhjA3elGeyJYve imS1VOjbG23sMDX1MBX3o yByZXBvcnRlZCBoZXJlIG 3xtNJgJQCpGKPoXZ0zGRR 2ZWxvcGVkIGFuZCBwZXJm i1RvVT0kQTJmoUFpRVW9X VLyg8EtB7YxTNB9CACehT 5lZCBieSBVVCBNRCBBbmR dkfNtggFPKCKjm4exZ8tb RQ3zNNpzHm6iSIQmswenY WVkaWNpbmUuIFRoZXNlIH Njl0CjBAstqpBimh27NWT wSA8qq0EkJ8nphBTyhTl7 AHPsRXUbRNMiy9HmMOOcd v00XPQcYdprzCrhOJBqFs 5lLb5nEVRcmzZgHQZ6VyW IDV6ehkyxbIYydAuive6u XHBsYWluXGYyXGZzMjJcb GFuZzEwMzNcaGljaFxmMl ixZdGpUFWfWLhuP6zpWnC cZnMyMlxwYXJ9 [facility] (UTE-CoV-2) PCR [id number] 11:21:43 Test Item Value Reference Interpretation Comments Range COVID19 SARS Pre-Out of OR Procedure Indication (test code = 85929) COVID19 SARS Result Not Detected Not Detected (test code = 85993-1) COVID19 SARS SARS-CoV-2 NOT Detected. Interpretation (test Reference Range: Not code = 86633) Detected Methodology: The [employer] RealTime SARS-CoV-2 assay is a qualitative real-time reverse account services representative polymerase chain reaction (pattern scratcher-PCR) test to detect RNA from SARS-CoV-2 in nasal, nasopharyngeal and oropharyngeal swabs from patients with signs and symptoms of infection who are suspected of COVID-19 by their health care provider. The [employer] RealTime SARS-CoV-2 performed on the [employer]000 System is a dual target assay with [...] CLIA-certified, high-complexity Molecular Diagnostics Laboratory (MDL) at [facility] under the Food and Drug Administration (FDA) s Emergency Use Authorization. Factsheet for patients: https://www.[facility].org/ AbbottFactSheetPatientsFact sheet for healthcare providers: https://www.[facility].org/ AbbottFactSheetHCP Test performed by:[facility] [id number] [place] [address] [facility] ([facility]-CoV-2) PCR [id number] 11:21:43 Test Item Value Reference Interpretation Comments Range COVID19 SARS Pre-Out of OR Procedure Indication (test code = 82048) COVID19 SARS Result Not Detected Not Detected (test code = 58682-7) COVID19 SARS SARS-CoV-2 NOT Detected. Interpretation (test Reference Range: Not code = 47314) Detected Methodology: The [employer] RealTime SARS-CoV-2 assay is a qualitative real-time reverse account services representative polymerase chain reaction (pattern scratcher-PCR) test to detect RNA from SARS-CoV-2 in nasal, nasopharyngeal and oropharyngeal swabs from patients with signs and symptoms of infection who are suspected of COVID-19 by their health care provider. The [employer] RealTime SARS-CoV-2 performed on the [employer] System is a dual target assay with [...] CLIA-certified, high-complexity Molecular Diagnostics Laboratory (MDL) at [facility] under the Food and Drug Administration (FDA) s Emergency Use Authorization. Factsheet for patients: https://www.[facility].org/ AbbottFactSheetPatientsFact sheet for healthcare providers: [email or web address]://www.[email or web address] [email or web address]/ AbbottFactSheetHCP Test performed by:The [facility] Molecular Diagnostic [id number] [place] [address] [facility] AldenMD COVID-19 (UTE-CoV-2) PCR [id number] 11:21:43 Test Item Value Reference Interpretation Comments Range COVID19 SARS Pre-Out of OR Procedure Indication (test code = 71381) COVID19 SARS Result Not Detected Not Detected (test code = 35511-4) COVID19 SARS SARS-CoV-2 NOT Detected. Interpretation (test Reference Range: Not code = 52669) Detected Methodology: The Haney RealTime SARS-CoV-2 assay is a qualitative real-time reverse account services representative polymerase chain reaction (pattern scratcher-PCR) test to detect RNA from SARS-CoV-2 in nasal, nasopharyngeal and oropharyngeal swabs from patients with signs and symptoms of infection who are suspected of COVID-19 by their health care provider. The Haney RealTime SARS-CoV-2 performed on the StartupDigest000 System is a dual target assay with [...] CLIA-certified, high-complexity Molecular Diagnostics Laboratory (MDL) at [facility] under the Food and Drug Administration (FDA) s Emergency Use Authorization. Factsheet for patients: https://www.[facility]anderson.org/ AbbottFactSheetPatientsFact sheet for healthcare providers: https://www.mdanderson.org/ AbbottFactSheetHCP Test performed by:The [facility] Molecular Diagnostic [id number] [place] [address] [facility] CenterCoccidioides [id number] 17:05:38 Test Item Value Reference Range Interpretation Comments Cocci Comp Fix-[place] Negative Negative (test code = 5096-3) Cocci IgG-[place] Negative Negative (test code = 71252-4) Cocci IgM-[place] Negative Negative A negative co mplement (test code = fixation and 80011-1) immunodiffusion (CompF/ImmD iff) result knowles s not exclude the panda gnosis ofcoccidioidomy cosis. Repeat testing by CompF/ImmDiff i n 2-3weeks if clinically i ndicated. Test Performed by:[facility] [address] [place], [place] [address]Kwk Director: Vladislav Cannon M.D. Ph. D.; CLIA# [id number] [facility] CenterCoccidioides [id number] 17:05:38 Test Item Value Reference Range Interpretation Comments Cocci Comp Fix-[place] Negative Negative (test code = 5096-3) Cocci IgG-[place] Negative Negative (test code = 18176-2) Cocci IgM-[place] Negative Negative A negative co mplement (test code = fixation and 29863-6) immunodiffusion (CompF/ImmD iff) result knowles s not exclude the panda gnosis ofcoccidioidomy cosis. Repeat testing by CompF/ImmDiff i n 2-3weeks if clinically i ndicated. Test Performed by:[facility] [address] [place], [place] [address]Ncv Director: Vladislav Cannon M.D. Ph. D.; CLIA# [id number] [facility] CenterCoccidioides [id number] 17:05:38 Test Item Value Reference Range Interpretation Comments Cocci Comp Fix-[place] Negative Negative (test code = 5096-3) Cocci IgG-[place] Negative Negative (test code = 14359-5) Cocci IgM-[place] Negative Negative A negative co mplement (test code = fixation and 36572-0) immunodiffusion (CompF/ImmD iff) result knowles s not exclude the panda gnosis ofcoccidioidomy cosis. Repeat testing by CompF/ImmDiff i n 2-3weeks if clinically i ndicated. Test Performed by:[facility] TOMS [id number] [place], [place] [address]Dvk Director: Vladislav Cannon M.D. Ph. D.; CLIA# [id number] [facility] CenterHistoplasma Ab [id number] 20:14:06 Test Item Value Reference Range Interpretation Comments Histo Immuno Negative Negative A negative comp lement Ab-Cano (test code fixation and = 11365-5) immunodiffusion (CF/ID)result d oes not exclude the panda gnosis of histoplasmosis. Repeat testing by CF/I D in 1-2 weeks if clinicallyindic ated. Test Performed by:[address] [employer], [place], [place] [address]te [employer] or: Kushal Cannon M.D. Ph.D.; CLIA# [id number] Histo Mycel Negative Negative Ab-Cano (test code = 67960-8) Histo Yeast Negative Negative Ab-Cano (test code = 73686-0) [facility] CenterHistoplasma Ab [id number] 20:14:06 Test Item Value Reference Range Interpretation Comments Histo Immuno Negative Negative A negative comp lement Ab-Cano (test code fixation and = 88981-7) immunodiffusion (CF/ID)result d oes not exclude the panda gnosis of histoplasmosis. Repeat testing by CF/I D in 1-2 weeks if clinicallyindic ated. Test Performed by:[address], [place], [place] [address]Din [employer] or: Kushal Cannon M.D. Ph.D.; CLIA# [id number] Histo Mycel Negative Negative Ab-Cano (test code = 59698-0) Histo Yeast Negative Negative Ab-Cano (test code = 87317-4) [facility] CenterHistoplasma Ab [id number] 20:14:06 Test Item Value Reference Range Interpretation Comments Histo Immuno Negative Negative A negative comp lement Ab-Cano (test code fixation and = 43852-8) immunodiffusion (CF/ID)result d oes not exclude the panda gnosis of histoplasmosis. Repeat testing by CF/I D in 1-2 weeks if clinicallyindic ated. Test Performed by:[place] [id number] [id number], [place], [place] [address]Tcr Direct or: Kushal Cannon M.D. Ph.D.; CLIA# [id number] Histo Mycel Negative Negative Ab-Cano (test code = 68161-0) Histo Yeast Negative Negative Ab-Cano (test code = 36084-9) [facility] Medical CenterT-spot [id number] 17:36:08 Test Item Value Reference Range Interpretation [...] (test by:Lab Mnemonic : code = 9399) [id number] DIAGNO STICS TB, [id number] [facility], N [address]VQADJ BAYRON TIRADO MD,PHD Tspot TB NIL Passed Cont (test code = 9396) RHIANNA (test If scheduling this code = RHIANNA) lab at one of the following locations, it can only be collected on Sunday, Sunday, and Sunday due to collection/process ing restrictions:[place] [facility] DIAG LAB [facility] CTRCABI - [facility]I DIAG LAB [facility] Cancer AldenT-spot [id number] 17:36:08 Test Item Value Reference Range Interpretation [...] reported aspositive, bor derline or negative, gi teer that the testcontrol s perform as expe [...] (test by:Lab Mnemonic : code = 9399) [id number] DIAGNO STICS TB, [id number] [facility] N [address]PVGOX BAYRON TIRADO MD,PHD Tspot TB NIL Passed Cont (test code = 9396) RHIANNA (test If scheduling this code = RHIANNA) lab at one of the following locations, it can only be collected on Sunday, Sunday, and Sunday due to collection/process ing restrictions:[facility] DIAG LAB [facility] CTRCABI - [facility]I DIAG LAB CTR [facility] CenterT-spot [id number] 17:36:08 Test Item Value Reference Range Interpretation [...] (test by:Lab Mnemonic : code = 9399) [id number] DIAGNO STICS TB, [id number] [facility], [place] [address]POMNA BAYRON TIRADO MD,PHD Tspot TB NIL Passed Cont (test code = 9396) RHIANNA (test If scheduling this code = RHIANNA) lab at one of the following locations, it can only be collected on Sunday, Sunday, and Sunday due to collection/process ing restrictions:[facility] DIAG LAB [facility] LAB [facility] DA[facility] LAB [facility] CTRCA - CABI DIAG LAB CTR [facility] Cancer CenterComplete PFT ([place], DLCO, [place]) 2021-12-01 00:00:00 Test Item Value [...] message] (test code = 9515) The syste Putney which generated this result transmitted ref erence range: 3.035 - 23.202 ml/(min*mmHg). The reference range was not used to int erpret this result as normal/abnormal . DLCOc_SB ml/(min*mmHg) 12.651 See_Comment [Aut omated message] (test code = 9516) The syste Putney which generated this result transmitted ref erence [...] 9530) Lab Interpretation (test Abnormal code = 26855-8) [facility] Medical CenterCryptococcal Ag Serum Path Review 2021-11-30 21:02:28Crypto Ag, Serum PRReviewed and Electronically signed by Pathologist:RICKEY SANTANA MD #[id number] [facility]Un[facility] DentonCryptococcal Ag Serum Path [id number] 21:02:28Crypto Ag, Serum PRReviewed and Electronically signed by Pathologist:RICKEY SANTANA MD #[id number] [facility]UnB[facility] DentonCryptococcal Ag Serum Path [id number] 21:02:28Crypto Ag, Serum PRReviewed and Electronically signed by Pathologist:RICKEY SANTANA MD #[id number] [facility]UnB[facility] DentonCryptococcal Antigen, [id number] 16:40:56 Test Item Value Reference Range Interpretation Comments Cryptococcal Ag Screen Serum Interp Negative Negative (test code = 25240-7) [facility] CenterCryptococcal Antigen, Serum 2021-11-30 16:40:56 Test Item Value Reference Range Interpretation Comments Cryptococcal Ag Screen Serum Interp Negative Negative (test code = 42491-5) [facility] CenterCryptococcal Antigen, Serum 2021-11-30 16:40:56 Test Item Value Reference Range Interpretation Comments Cryptococcal Ag Screen Serum Interp Negative Negative (test code = 76858-9) [facility] CenterHepatitis B Total Ig Core Ab (SCREENING) (anti-HBc total Ig; HBcAb total Ig)2021-11-30 15:37:34 Test Item Value Reference Range Interpretation Comments HBcAb. (test code = 5742) Non Reactive Non Reactive [facility] CenterHepatitis B Total Ig Core Ab (SCREENING) (anti-HBc total Ig; HBcAb total Ig)2021-11-30 15:37:34 Test Item Value Reference Range Interpretation Comments HBcAb. (test code = 5742) Non Reactive Non Reactive [facility] Notes Date/Time Note Provider Source 2023-01-16 Formatting of this note might be differe nt from the original. Karen Claire 14:41:58-00:00 Patient needs to discuss get ting back on cholesterol medication, gastro MD took her off of it d/t elevated liver enzymes, her numbers are better now and he suggests she talk to her provider about restar Clinic ting or starting something c omparable. She also C/O yeast infection. VSS, medications reconciled. Electronically signed by Karen Roque at 2022 2:42 PM CDT
[2023-01-19] MEDS ORDERED: NA CHLORIDE 0.9% 1,000 ML ONE (13:20)
[2023-01-19] MEDS ORDERED: ONDANSETRON 4 MG/2 ML VIAL ONE (13:20)
--- NOTE | 2023-01-19 13:35 | RAD REPORT ---
EXAM DESCRIPTION: CT - Abdomen Pelvis Wo Contrast - 01/19/2023 1:06 pm CLINICAL HISTORY: Abdominal pain vomiting COMPARISON: 2019 CT chest TECHNIQUE: Computed axial tomography of the abdomen and pelvis was obtained. IV and oral contrast we re not requested. All CT scans are performed using dose optimization technique as appropriate and may include automated exposure control or mA/KV adjustment according to patient size. FINDINGS: The evaluation of solid organs, vessels and bowel is limited secondary to the lack of con trast administration. Multiple low-density lesions are present within the liver unchanged from 2019 compatible with cysts. In addition there are several low-density hepatic lesions not all clearly seen on the prior exam. Spleen, pancreas, adrenals kidneys unremarkable No evidence diverticulitis. Normal appendix. No adnexal mass IMPRESSION: Multiple hepatic cysts Additional small low-density lesions within the liver are nonspecific and could represent cysts or me tastases. Nonemergent MRI of the liver is recommended for further evaluation.
[2023-01-19 13:38] LABS: Hematocrit 35.9 % (36.0-45.0); Lymphocytes % 14.4 % (15.3-44.8); MCV 88.9 fL (80-100); MPV 6.7 fL (7.6-11.3); RBC Red Blood Cell Count 4.04 M/uL (3.86-4.86)
[2023-01-19 13:45] LABS: Specific Gravity 1.024 (1.005-1.030); Urine Bacteria None Seen /HPF (<20); Urine Bilirubin NEGATIVE (Negative); Urine Blood Negative (Negative); Urine Clarity Clear (Clear); Urine Color Light-Yellow (Yellow); Urine Glucose NEGATIVE (Negative); Urine Mucus Slight /HPF (None Seen); Urine Protein TRACE (Negative); Urine RBC <5 /HPF (None Seen); Urine Urobilinogen Normal (Normal)
[2023-01-19 13:57] LABS: Albumin 3.8 g/dL (3.4-5.0); Bilirubin Total 0.2 mg/dL (0.2-1.0); Potassium 3.8 mEq/L (3.5-5.1); Protein, Total 7.4 g/dL (6.4-8.2); Troponin High Sensitivity 7.9 pg/mL (<58.9)
--- NOTE | 2023-01-19 14:34 | ER ---
Nurse's Notes [facility] Name: Brianne Jennings Age: 77 yrs Sex: Female : 1945 Arrival Date: 01/19/2023 Time: 12:22 Bed 14 Private MD: Diagnosis: Nausea Presentation: 01/19 12:31 Chief complaint: EMS states: nausea x1 week, vomiting this morning with LUQ pain. pt kc6 reports having a portion of her left lung lob resected recently due to lung cx. 4mg Zofran given en route. Coronavirus screen: At this time, the client does not indicate any symptoms associated with coronavirus-19. Ebola Screen: No symptoms or risks identified at this time. Initial Sepsis Screen: Does the patient meet any 2 criteria? No. Patient's initial sepsis screen is negative. Does the patient have a suspected source of infection? No. Patient's initial sepsis screen is negative. Risk Assessment: Do you want to hurt yourself or someone else? Patient reports no desire to harm self or others. Onset of symptoms was January 19, 2023. 12:31 Method Of Arrival: EMS: [facility] kc6 12:31 Acuity: LYNNE 3 kc6 Triage Assessment: 12:33 General: Appears in no apparent distress. comfortable, Behavior is calm, cooperative, kc6 appropriate for age. Pain: Complains of pain in left upper quadrant. EENT: No signs and/or symptoms were reported regarding the EENT system. Neuro: Level of Consciousness is awake, alert, obeys commands, Oriented to person, place, time, situation, Appropriate for age. Cardiovascular: Capillary refill < 3 seconds. Respiratory: Airway is patent Trachea midline Respiratory effort is even, unlabored, Respiratory pattern is regular, symmetrical. GI: Abdomen is flat, non-distended, Pt is actively vomiting clear fluid, Bowel sounds present X 4 quads. Abd is soft X 4 quads Abdomen is tender to palpation in left upper quadrant Reports nausea, vomiting, Patient currently denies diarrhea. : No signs and/or symptoms were reported regarding the genitourinary system. Derm: No signs and/or symptoms reported regarding the dermatologic system. Skin is intact, is healthy with good turgor, Skin is pink, warm \T\ dry. Musculoskeletal: No signs and/or symptoms reported regarding the musculoskeletal system. Circulation, motion, and sensation intact. Capillary refill < 3 seconds, Range of motion: intact in all extremities. Historical: - Allergies: 12:33 Clindamycin; kc6 - PMHx: 12:33 acid reflux; Arthritis; COPD; Hypertension; lung cancer; kc6 - PSHx: 12:33 left lung lobe resection; kc6 - Immunization history:: Client reports having NOT received the Covid vaccine. Flu vaccine is not up to date. - Social history:: Smoking status: Patient/guardian denies using tobacco. - Family history:: not pertinent. Screenin:35 [facility] ED Fall Risk Assessment (Adult) History of falling in the last 3 months, kc6 including since admission No falls in past 3 months (0 pts) Confusion or Disorientation No (0 pts) Intoxicated or Sedated No (0 pts) Impaired Gait No (0 pts) Mobility Assist Device Used No (0 pt) Altered Elimination No (0 pt) Score/Fall Risk Level 0 - 2 = Low Risk. Abuse screen: Denies threats or abuse. Denies injuries from another. Nutritional screening: No deficits noted. Tuberculosis screening: No symptoms or risk factors identified. Assessment: 12:35 Reassessment: please see triage assessment. [facility] 13:52 Reassessment: Patient appears in no apparent distress at this time. No changes from [facility] previously documented assessment. Patient and/or family updated on plan of care and expected duration. Pain level reassessed. Patient is alert, oriented x 3, equal unlabored respirations, skin warm/dry/pink. 14:54 Reassessment: Patient appears in no apparent distress at this time. No changes from [facility] previously documented assessment. Patient and/or family updated on plan of care and expected duration. Pain level reassessed. Patient is alert, oriented x 3, equal unlabored respirations, skin warm/dry/pink. 14:55 Reassessment: d/c pending transport home and med follow up. [facility] Vital Signs: 12:31 BP 149 / 77; Pulse 56; Resp 16 S; Temp 97.6(O); Pulse Ox 96% on R/A; Weight 51.26 kg kc6 (R); Height 5 ft. 2 in. (R); 13:53 BP 151 / 83; Pulse 50; Resp 17 S; Pulse Ox 100% on R/A; kc6 14:54 BP 157 / 66; Pulse 75; Resp 18 S; Pulse Ox 95% on R/A; kc6 12:31 Body Mass Index 20.67 (51.26 kg, 157.48 cm) kc6 ED Course: 12:25 Patient arrived in ED. kc6 12:27 Atif Benoit MD is Attending Physician. rt 12:31 Brenda Valero, RN is Primary Nurse. kc6 12:33 Triage completed. kc6 12:33 Arm band placed on. kc6 12:35 Patient has correct armband on for positive identification. Bed in low position. Call kc6 light in reach. Side rails up X2. 12:35 Maintain EMS IV. Dressing intact. Good blood return noted. Site clean \T\ dry. Gauge \T\ mitra 6 site: 20G R Hand. 13:06 CT Abd/Pelvis - Without Contrast In Process Unspecified. EDMS 15:36 No provider procedures requiring assistance completed. IV discontinued, intact, kc6 bleeding controlled, No redness/swelling at site. Pressure dressing applied. Administered Medications: 13:31 Drug: NS 0.9% IV 1000 ml Route: IV; Rate: 1 bolus; Site: right hand; kc6 14:54 Follow up: Response: No adverse reaction; IV Status: Completed infusion; IV Intake: kc6 1000ml 13:31 Drug: Ondansetron IVP 4 mg Route: IVP; Site: right hand; kc6 14:54 Follow up: Response: No adverse reaction; Nausea unchanged; Vomiting unchanged kc6 14:53 Drug: Promethazine IVP 12.5 mg Route: IVP; Site: right hand; kc6 15:24 Follow up: Response: No adverse reaction; Nausea is decreased; Vomiting decreased kc6 Medication: 15:36 VIS not applicable for this client. kc6 Intake: 14:54 IV: 1000ml; Total: 1000ml. kc6 Outcome: 14:34 Discharge ordered by . rt 15:36 Discharged to home via wheelchair, with family. kc6 15:36 Condition: improved 15:36 Discharge instructions given to patient, Instructed on discharge instructions, follow up and referral plans. medication usage, Demonstrated understanding of instructions, follow-up care, medications, Prescriptions given X 1. 15:39 Patient left the ED. eb Signatures: Dispatcher [employer] EDOH OcasioTameka rangel Kaitlyn, VALE RN kc6 Atif Benoit MD MD rt
--- NOTE | 2023-01-19 14:34 | EDPHYS ---
Physician Documentation [facility] Name: Brianne Jennings Age: 77 yrs Sex: Female : 1945 Arrival Date: 01/19/2023 Time: 12:22 Bed 14 Private MD: ED Physician Atif Benoit HPI: 01/19 18:00 This 77 yrs old Female presents to ER via EMS with complaints of Nausea/Vomiting. rt 18:00 Patient presents to the ED with nausea without vomiting starting today. Denies any rt abdominal pain. Denies diarrhea, denies other acute complaints at this time. Symptoms are moderate severity, no other aggravating or alleviating factors.. Historical: - Allergies: 12:33 Clindamycin; kc6 - PMHx: 12:33 acid reflux; Arthritis; COPD; Hypertension; lung cancer; kc6 - PSHx: 12:33 left lung lobe resection; kc6 - Immunization history:: Client reports having NOT received the Covid vaccine. Flu vaccine is not up to date. - Social history:: Smoking status: Patient/guardian denies using tobacco. - Family history:: not pertinent. ROS: 18:00 Constitutional: Negative for fever, chills, and weight loss, Cardiovascular: Negative rt for chest pain, palpitations, and edema, Respiratory: Negative for shortness of breath, cough, wheezing, and pleuritic chest pain, MS/Extremity: Negative for injury and deformity, Skin: Negative for injury, rash, and discoloration, Neuro: Negative for headache, weakness, numbness, tingling, and seizure, Psych: Negative for depression, anxiety, suicide ideation, homicidal ideation, and hallucinations. 18:00 Abdomen/GI: Positive for nausea, Negative for vomiting. Exam: 18:00 Constitutional: This is a well developed, well nourished patient who is awake, alert, rt and in no acute distress. Head/Face: Normocephalic, atraumatic. Chest/axilla: Normal chest wall appearance and motion. Nontender with no deformity. No lesions are appreciated. Cardiovascular: Regular rate and rhythm with a normal S1 and S2. No gallops, murmurs, or rubs. Normal PMI, no JVD. No pulse deficits. Respiratory: Lungs have equal breath sounds bilaterally, clear to auscultation and percussion. No rales, rhonchi or wheezes noted. No increased work of breathing, no retractions or nasal flaring. Abdomen/GI: Soft, non-tender, with normal bowel sounds. No distension or tympany. No guarding or rebound. No evidence of tenderness throughout. Skin: Warm, dry with normal turgor. Normal color with no rashes, no lesions, and no evidence of cellulitis. MS/ Extremity: Pulses equal, no cyanosis. Neurovascular intact. Full, normal range of motion. Neuro: Awake and alert, GCS 15, oriented to person, place, time, and situation. Cranial nerves II-XII grossly intact. Motor strength 5/5 in all extremities. Sensory grossly intact. Cerebellar exam normal. Normal gait. Psych: Awake, alert, with orientation to person, place and time. Behavior, mood, and affect are within normal limits. 18:00 ECG was reviewed by the Attending Physician. Vital Signs: 12:31 BP 149 / 77; Pulse 56; Resp 16 S; Temp 97.6(O); Pulse Ox 96% on R/A; Weight 51.26 kg kc6 (R); Height 5 ft. 2 in. (R); 13:53 BP 151 / 83; Pulse 50; Resp 17 S; Pulse Ox 100% on R/A; kc6 14:54 BP 157 / 66; Pulse 75; Resp 18 S; Pulse Ox 95% on R/A; kc6 12:31 Body Mass Index 20.67 (51.26 kg, 157.48 cm) 6 MDM: 12:36 Patient medically screened. rt 18:00 Differential diagnosis: Viral syndrome, bowel obstruction, gastroenteritis, acute rt coronary syndrome. Data reviewed: vital signs, nurses notes, lab test result(s), EKG, radiologic studies. Independent interpretation of the following test(s) in the Emergency Department CT Scan: My interpretation is No bowel obstruction seen on interpretation of the CT scan images. Care significantly affected by the following chronic conditions: Hypertension. Counseling: I had a detailed discussion with the patient and/or guardian regarding: the historical points, exam findings, and any diagnostic results supporting the discharge/admit diagnosis, lab results, radiology results, the need for outpatient follow up, to return to the emergency department if symptoms worsen or persist or if there are any questions or concerns that arise at home. Response to treatment: the patient's symptoms have markedly improved after treatment. ED course: Patient informed of the liver findings on CT scan, will follow-up with her oncologist.. 01/19 12:53 Order name: CBC with Diff; Complete Time: 13:48 rt 08 12:53 Order name: CMP; Complete Time: 14:00 rt 01/19 12:53 Order name: Lipase; Complete Time: 14:00 rt 01/19 12:53 Order name: Urinalysis w/ reflexes; Complete Time: 13:48 rt 01/19 12:53 Order name: Troponin High Sensitivity; Complete Time: 14:00 rt 01/19 12:53 Order name: CT Abd/Pelvis - Without Contrast; Complete Time: 13:48 rt 01/19 12:53 Order name: EKG; Complete Time: 12:54 rt 01/19 12:53 Order name: IV Saline Lock; Complete Time: 13:14 rt 01/19 12:53 Order name: Labs collected and sent; Complete Time: 13:31 rt 01/19 12:53 Order name: EKG - Nurse/Tech; Complete Time: 13:31 rt EC:00 Rate is 71 beats/min. Rhythm is regular, Normal Sinus Rhythm with No ectopy. QRS [place] rt is Normal. MS interval is normal. QRS interval is normal. QT interval is normal. No Q waves. Clinical impression: NSR w/ Non-specific ST/T Changes. Administered Medications: 13:31 Drug: NS 0.9% IV 1000 ml Route: IV; Rate: 1 bolus; Site: right hand; kc6 14:54 Follow up: Response: No adverse reaction; IV Status: Completed infusion; IV Intake: kc6 1000ml 13:31 Drug: Ondansetron IVP 4 mg Route: IVP; Site: right hand; kc6 14:54 Follow up: Response: No adverse reaction; Nausea unchanged; Vomiting unchanged kc6 14:53 Drug: Promethazine IVP 12.5 mg Route: IVP; Site: right hand; kc6 15:24 Follow up: Response: No adverse reaction; Nausea is decreased; Vomiting decreased kc6 Disposition Summary: 01/19/23 14:34 Discharge Ordered Location: Home rt Problem: new rt Symptoms: have improved rt Condition: Stable rt Diagnosis - Nausea rt Followup: rt - With: Private Physician - When: 2 - 3 days - Reason: Discharge Instructions: - Discharge Summary Sheet rt - Nausea, Adult rt Forms: - Medication Reconciliation Form rt - Thank You Letter rt - Antibiotic Education rt - Prescription Opioid Use rt - Patient Portal Instructions rt Prescriptions: - ondansetron 4 mg Oral Tablet,disintegrating - take 1 tablet by ORAL route every 6 hours for 5 days; 18 tablet; Refills: 0, rt Product Selection Permitted Signatures: Dispatcher [employer] Brenda Yoder RN RN kc6 Atif Benoit MD MD rt
[2023-01-19] MEDS ORDERED: PROMETHAZINE INJ 25 MG/ML AMP ONE (14:58)
[2023-01-19 15:54] VITALS: TEMP 97.6
[2023-01-19 15:56] VITALS: BP 157/66; O2SAT 95
--- NOTE | 2023-01-22 13:11 | EKG ---
Test Date: 2023-01-19 Test Time: 13:17:52 Accounts Payable Lead: JED MEASUREMENT RESULTS: Intervals: Rate: 53 FL: 170 QRSD: 96 QT: 440 QTc: 412 Reeves: P: 77 FL: 170 QRS: 88 T: 80 INTERPRETIVE STATEMENTS: Sinus bradycardia Incomplete right bundle branch block Borderline ECG Compared to ECG 09/29/2022 18:06:06 Sinus rhythm no longer present Electronically Signed On 01-22-23 13:07:14 CDT by Baldemar Hamilton
== END 2023-01-19 15:39 | disposition home or self-care (01) ==
LOC: ER 12:22
DX: R11.0 Nausea (principal); K21.9 Gastro-esophageal reflux disease without esophagitis; I10 Essential (primary) hypertension; J44.9 Chronic obstructive pulmonary disease, unspecified; Z85.118 Personal history of other malignant neoplasm of bronchus and lung; Z88.3 Allergy status to other anti-infective agents
CPT/HCPCS: 96361; 85025; 81001; 36415; 84484; 83690; 80053; 74176; 96375; 96374; 99284; J2550; J2405; J7030; 93005

== ENCOUNTER 2023-04-10 07:29 | Emergency (ER) | payer OTHER ==
--- OUTSIDE RECORDS SUMMARY | 2023-04-10 07:34 | XMS REPORT | Clinical Summary ---
:1945 Author Organization [facility] MD [facility] Address [address] [place] [address] Care Team Providers Name Role Phone Sheba Velez Unavailable Clay Ahumada MD Unavailable Sudeep Crouch MD Primary Care Provider [phone] Guanaco Henderson MD Unavailable [phone] Keaton Rodriguez MD Unavailable Kaylie Mota MD Unavailable Seth Fernandez MD Unavailable Mauri Barr MD Unavailable Allergies Active Allergy Reactions Criticality Noted Date Comments Clindamycin 09/19/2017 Other reaction( s): Itching/Hives/Rash Other reaction( s): Itching/Hives/Rash Medications Medication Sig Dispensed Refills Start End Status Date Date metoprolol tartrate Take 1 tablet 0 08/02/19 Active (LOPRESSOR) 50 mg (50 mg) by 22 tablet mouth twice daily. esomeprazole Take 1 capsule 0 Ac tive (NexIUM) 40 MG (40 mg) by capsule mouth every morning before breakfast. folic acid (FOLVITE) Take 1 tablet 30 tablet 2 02/25/20 Active 400 mcg (400 mcg) by 22 tabletIndications: mouth daily. Adenocarcinoma, NOS of upper lobe, lung <Left> senna (SENOKOT) 8.6 Take 1 tablet 0 Active mg tablet by mouth every other day. senna-docusate Take 2 tablets 20 tablet 0 05/29/20 Active (SENOKOT-S) 8.6 by mouth 2 22 mg-50 mg (two) times a tabletIndications: day as needed Adenocarcinoma, NOS for of upper lobe, lung constipation. <Left> albuterol Inhale 3 mL 0 Active (PROVENTIL,VENTOLIN) (2.5 mg) by 2.5 mg/3 mL (0.083%) nebulization nebulizer solution twice daily. Patient has been using 3-4 times a day pantoprazole TAKE 1 TABLET 0 10/05/19 Act joann (PROTONIX) 40 mg EC BY MOUTH DAILY 23 tablet apixaban (Eliquis) Take 1 tablet 60 tablet 6 11/09/19 Active 2.5 mg (2.5 mg) by 23 tabletIndications: mouth every 12 Cerebral venous (twelve) hours. sinus thrombosis ondansetron (ZOFRAN) TAKE 1 TABLET 0 10/05/19 Active 8 mg tablet BY MOUTH EVERY 23 8 HOURS NEEDED FORNAUSEA AND VOMITING budesonide-formotero Inhale 2 puffs 0 12/09/19 Active l (SYMBICORT) by mouth. 23 160-4.5 mcg/actuation inhaler alendronate TAKE 1 TABLET 0 10/05/19 Acti ve (FOSAMAX) 70 mg BY MOUTH ONCE 23 tablet WEEKLY ON AN EMPTY STOMACH BEFORE BREAKFAST. REMAIN UPRIGHT FOR 30 MINUTES AND TAKE WITH 8OZ OF WATER apixaban (Eliquis) Take 1 tablet 180 tablet 3 02/12/ Active 2.5 mg (2.5 mg) by 23 024 tabletIndications: mouth every 12 Cerebral venous (twelve) hours sinus thrombosis for 360 days. gabapentin TAKE 1 90 capsule 0 04/09/20 Active (NEURONTIN) 300 mg CAPSULE(300 MG) 23 capsuleIndications: BY MOUTH THREE Postoperative pain TIMES DAILY fluticasone Inhale 1 spray 0 11/29/19 Dis continued propionate (FLONASE) (50 mcg) into (Therapy 50 mcg/spray nasal each nostril as completed) spray needed. albuterol (VENTOLIN Inhale 2 puffs 0 12/06/1908/21 Discontinued HFA,PROAIR HFA) 90 by mouth as (Therapy mcg/puff inhaler needed. com pleted) apixaban (Eliquis Take 2 tablets 74 tablet 0 01/10/20 Discontinued DVT-PE Treat 30D by mouth twice (Stop Taking at Start) 5 mg (74 daily for 7 Di scharge) tabs) days, then take tabletIndications: 1 tablet by Adenocarcinoma of mouth twice left lung daily thereafter. Nicoderm CQ 21 mg/24 Apply 1 patch 28 patch 0 02/08/2005/09 Discontinued hr transdermal to skin and ( erapy patchIndications: change patch completed) Nicotine dependence daily as directed for tobacco cessation (alternate sites). Nicorette 2 mg mini Dissolve 1 162 lozenge 0 02/08/20 Discontinued lozengeIndications: lozenge (2 mg) (Therapy Nicotine dependence in the mouth completed) every 2 (two) hours as needed for smoking cessation. Avoid acidic beverages during, 5 min before/after use dexamethasone Take 1 tablet 18 tablet 2 02/25/20 Di scontinued (DECADRON) 4 mg (4 mg) by mouth (Therapy tabletIndications: twice daily. completed) Adenocarcinoma, NOS Take on days 2, of upper lobe, lung 3, and 4 of <Left> each chemotherapy cycle ondansetron (ZOFRAN) Take 1 tablet 30 tablet 3 02/25/2005/09 Discontinued 8 mg (8 mg) by mouth (The rapy tabletIndications: every 8 (eight) completed) Adenocarcinoma, NOS hours as needed of upper lobe, lung for nausea or <Left> vomiting. apixaban (Eliquis) 5 Take 1 tablet 60 tablet 1 02/28/2005/29 Discontinued mg (5 mg) by mouth (Reo rder) tabletIndications: every 12 Adenocarcinoma of (twelve) hours. left lung fluticasone Inhale 1 puff 1 each 0 02/28/20 Disc ontinued propion-salmeteroL by mouth twice (Therapy 232-14 mcg/actuation daily. completed) aepbIndications: Adenocarcinoma, NOS of upper lobe, lung <Left>, Simple chronic bronchitis atorvastatin Take 1 tablet 0 03/07/20 Dis continued (LIPITOR) 40 mg (40 mg) by (Th erapy tablet mouth at completed) bedtime. baclofen (LIORESAL) 3 (three) times 0 03/10/2008/17 Discontinued 10 mg tablet a day as (Therap y needed. completed) acetaminophen-codein 0 05/03/20 Discontinued e (TYLENOL #3) 300 ( Stop Taking at mg-30 mg tablet Disc harge) promethazine 0 05/03/20 Discont inued (PHENERGAN) 25 mg (T herapy tablet completed) scopolamine 0 05/03/20 Disconti nued (TRANSDERM-SCOP) 1.5 (Therapy mg transdermal patch completed) apixaban (Eliquis) 5 Take 1 tablet 60 tablet 1 05/29/2007/31 Discontinued mg (5 mg) by mouth (Dos e tabletIndications: every 12 a djustment) Adenocarcinoma of (twelve) hours. left lung acetaminophen Take 2 tablets 80 tablet 0 05/29/20 E xpired (TYLENOL) 500 mg (1,000 mg) by tabletIndications: mouth every 6 Adenocarcinoma, NOS (six) hours for of upper lobe, lung 10 days. <Left> gabapentin Take 1 capsule 42 capsule 0 05/29/20 Exp ired (NEURONTIN) 100 mg (100 mg) by capsuleIndications: mouth every 8 Adenocarcinoma, NOS (eight) hours of upper lobe, lung for 7 days, <Left> THEN take 1 capsule (100 mg) twice daily for 7 days, THEN take 1 capsule (100 mg) every morning for 7 days. lidocaine (LIDODERM) Place 1 patch 30 patch 0 05/30/2002/05 Discontinued 5% (700 mg/patch) on the skin (Therapy transdermal daily. Remove & co mpleted) patchIndications: Discard patch Adenocarcinoma, NOS within 12 hours of upper lobe, lung or as directed <Left> by . Remove old patch(es) before replacing new patch(es). traMADol (ULTRAM) 50 Take 1 tablet 40 tablet 0 05/29/2007/27 Discontinued mg (50 mg) by 023 (Reorder) tabletIndications: mouth every 6 pain (six) hours as needed for moderate pain. Take only if needed and decrease use as pain improves gabapentin Take 1 capsule 42 capsule 0 06/30/19 Exp ired (NEURONTIN) 100 mg (100 mg) by 023 capsuleIndications: mouth 3 (three) Adenocarcinoma, NOS times a day for of upper lobe, lung 7 days, THEN 1 <Left>, capsule (100 Postoperative pain mg) twice daily for 7 days, THEN 1 capsule (100 mg) daily for 7 days. traMADol (ULTRAM) 50 Take 1 tablet 10 tablet 1 07/27/1908/04 Discontinued mg (50 mg) by 023 tabletIndications: mouth daily. pain Take only if needed and decrease use as pain improves apixaban (Eliquis) Take 1 tablet 60 tablet 2 07/31/19 Discontinued 2.5 mg (2.5 mg) by 023 tabletIndications: mouth every 12 Cerebral venous (twelve) hours. sinus thrombosis prochlorperazine Take 1 tablet 30 tablet 0 07/31/19 Discontinued (Compazine) 5 mg (5 mg) by mouth 023 (Therapy tabletIndications: every 8 (eight) completed) Adenocarcinoma, NOS hours as needed of upper lobe, lung for nausea. <Left>, Nausea gabapentin Take 1 capsule 90 capsule 0 08/04/19 Dis continued (Neurontin) 300 mg (300 mg) by 023 capsuleIndications: mouth 3 (three) Postoperative pain times a day. gabapentin TAKE 1 90 capsule 0 09/02/19 Disconti nued (NEURONTIN) 300 mg CAPSULE(300 MG) 023 capsuleIndications: BY MOUTH THREE Postoperative pain TIMES DAILY gabapentin TAKE 1 90 capsule 0 10/10/19 Disconti nued (NEURONTIN) 300 mg CAPSULE(300 MG) 023 capsuleIndications: BY MOUTH THREE Postoperative pain TIMES DAILY Eliquis 2.5 mg TAKE 1 60 tablet 2 10/26/19 Disco ntinued tabletIndications: TABLET(2.5 MG) 23 023 (Reorder) Cerebral venous BY MOUTH EVERY sinus thrombosis 12 HOURS apixaban (Eliquis) Take 1 tablet 60 tablet 3 10/26/19 Discontinued 2.5 mg (2.5 mg) by 23 023 (Reorder ) tabletIndications: mouth every 12 Cerebral venous (twelve) hours. sinus thrombosis atorvastatin TAKE 1 TABLET 0 10/05/19 Dis continued (LIPITOR) 40 mg BY MOUTH ONCE 023 (Not tablet DAILY Applicable ) gabapentin TAKE 1 90 capsule 0 11/15/19 Disconti nued (NEURONTIN) 300 mg CAPSULE(300 MG) 23 023 capsuleIndications: BY MOUTH THREE Postoperative pain TIMES DAILY sodium,potassium,mag MIX AND DRINK 0 01/10/2002/02 Discontinued sulfates DIRECTED 023 (Not 17.5-3.13-1.6 gram A pplicable) solr Dulera 100-5 INHALE 1 PUFF 0 10/05/19 Dis continued mcg/actuation HFAA BY MOUTH TWICE 023 (Not DAILY. Applicable ) fluconazole 0 01/17/20 Disconti nued (DIFLUCAN) 150 mg 023 (N ot tablet Applicable ) dexAMETHasone 0 10/05/19 Discon tinued (DECADRON) 4 mg 023 (Not tablet Applicable ) brompheniramine-pseu Take 10 mL by 0 11/17/1902/02 Discontinued doephedrine-DM mouth. 23 023 (Not 2-30-10 mg/5 mL Appl icable) syrup baclofen (LIORESAL) 0 10/05/19 Discontinued 10 mg tablet 023 (Not Applicable ) gabapentin TAKE 1 90 capsule 0 02/13/20 Disconti nued (NEURONTIN) 300 mg CAPSULE(300 MG) 23 023 capsuleIndications: BY MOUTH THREE Postoperative pain TIMES DAILY gabapentin TAKE 1 90 capsule 0 03/09/20 Disconti nued (NEURONTIN) 300 mg CAPSULE(300 MG) 23 023 capsuleIndications: BY MOUTH THREE Postoperative pain TIMES DAILY Active Problems Problem Noted Date Diagnosed Date Postoperative pain 06/30/2022 Last Assessment & Plan: Formatting of is note might be different from the original. After assessment her symptoms are indica tive of thoracic nerve pain. I have refilled her gabapentin prescription and advised her to start with 3 times a day again and then wean off per the typical annabel col we previously ordered. Sent to her [facility] pharmacy. Constipation 05/09/2022 Last Assessment & Plan: [...] She normally weighs about 115 pounds. Jan brizuela is weighing today at 102 pounds so she is lost a little over 10 pounds since the beginning of treatment which started end of the summer. She has difficulty with her appetite, food does not taste very well so she has not been able to gain some of that weight back. I have put in a referral for [employer] to give her a call to assist her. Cerebral thrombosis 01/24/2022 Last Assessment & Plan: Formatting of is [...] Adenocarcinoma, NOS of upper lobe, lung <Left> 12/08/2021 Cancer Staging: Clinical stage from 12/02: Stage IIB (cT3, cN0, cM0) - Signed by Josephine Modi NP on 12/22/2021 Pathologic stage from 05/31/2022: ypT0, pN0, cM0 - Signed by Josephine Modi NP on 05/31/2022 Last Assessment & Plan: Formatting of th [...] Shortness of breath 09/20/2017 Encounters Date Type Department Care Team Description 04/08/2023 Refill Pain Management Mauri Lackey MD [facility] [address] 4th [place] [address] 03/09/2023 Refill Pain Management Mauri Lackey MD [facility] [facility] [address] [facility], 4th [place] [address] 02/12/2023 Telemedicine Internal Medicine Keaton Rodriguez, Cerebra l venous 8:15 AM Center - Hematology sinus thrombosis CDT [address] [facility], 6th [place] [address] 02/10/2023 Refill Pain Management Cent er Mauri Barr MD Postoperative pain [address] Main Bldg, 4th [place] [address] 02/05/2023 Telemedicine Thoracic Center - Moncho Terrell, Adenoca rcinoma, NOS 11:00 AM Medical Oncology MD Sudeep of upper lobe, lung CDT [address] <Left> Main Bldg, 9th [place] [address] 02/02/2023 Ancillary MD Iam Ambrose, Adenocarc inoma, NOS 12:20 PM Procedure City Sofy Brizuela, PA of upper lobe, lung CDT [address] [facility] <Left> South [address] [place] [address] 02/02/2023 Telephone Thoracic Center - Lucia Machado Medical Oncology [place], [place] [address] Main Bldg, 9th [place] [address] 02/02/2023 Travel 01/27/2023 Ancillary Image Library Annabel, Adenocarcinoma, NOS 8:00 PM Procedure [address] Sofy E, PA of upper lo be, lung CDT [place] <Left> [place] [address] 01/27/2023 Orders Only Thoracic Center - Annabel Adenocarci noma, NOS Medical Oncology Sofy E, PA of upper lobe, lung [address] <Left> (Primary Dx) Main Bldg, 9th [place] [address] 01/23/2023 Orders Only Thoracic Center - Annabel Adenocarci noma, NOS Medical Oncology Sofy E, PA of upper lobe, lung [address] <Left> (Primary Dx) Main Bldg, 9th [place] [address] 01/22/2023 Orders Only Thoracic Center - Annabel Adenocarci noma, NOS Medical Oncology Sofy E, PA of upper lobe, lung [address] <Left> (Primary Dx) Main Bldg, 9th [place] [address] 01/16/2023 Ancillary MD Iam Reid, Cerebral venous 8:15 AM Procedure City Mona Vaughn, sinus thrombosis CDT [address] [facility] INTAKE ASSESSOR South 2nd [place] [address] 01/16/2023 Travel 01/12/2023 Telemedicine Gastrointestinal Fernandez, Seth Liver enzy mes level 8:00 AM Eulalio Montenegro MD above reference CDT Gastroenterology, range Hepatology & Nutriti on [address] Main Bldg, 7th [place] [address] 01/10/2023 Telephone Colorectal Center - Bruna Albarran, Medical Oncology [place] [address] Main Bldg, 7th [place] [address] 01/09/2023 Travel 11/20/2022 Hospital Encounter Pain Management Mauri Lackey MD Postoperative pain 3:[address] PM [address] Discharge Disposition: Home CDT - Main Bldg, 4th Floor 11/20/2022 Elevator A 11:59 [place] [address] CDT [phone] 11/11/2022 Refill Pain Management Mauri Lackey MD Postoperative pain [address] Main Bldg, 4th [place] [address] 11/09/[address] Imaging Joanna Landon MD [address] [facility], 7th [place] [address] 11/08/2022 Orders Only Internal Medicine [place], Cerebral v enous Center - Hematology Mona Vaughn, sinus thrombosis [address] INTAKE ASSESSOR [facility], 6th [place] [address] 11/06/2022 Telemedicine Thoracic Center - Moncho Terrell, Adenoca rcinoma, NOS 10:00 AM Medical Oncology MD Sudeep of upper lobe, lung CDT [address] <Left> Main Bldg, 9th [place] [address] 11/02/2022 Ancillary Josephine Barry Encoun ter for 9:55 AM Procedure City INTAKE ASSESSOR follow-up CDT [address] [facility] examinatio n after South completed treatment 2nd [place] [address] neopla sm 11/02/2022 Travel 10/25/2022 Orders Only Internal Medicine [place], Cerebral v enous [place] - Hematology Mona J, sinus thrombosis [address] [facility], 6th [place] [address] 10/24/2022 Refill Internal Medicine [place], Cerebral v enous [place] - Hematology Mona J, sinus thrombosis [address] [facility], 6th [place] [address] 10/07/2022 Refill Pain Management Cent er Mauri Barr MD Postoperative pain [address] Main Bldg, 4th [place] [address] 09/29/2022 Telephone Thoracic Center - Annabel, Medical Oncology STORM Spencer [address] Main Bldg, 9th [place] [address] 09/29/2022 Telephone Thoracic Center - Cande, Medical Oncology VALE Quintana [address] Main Bldg, 9th [place] [address] 09/22/2022 Orders Only Josephine Carvajal [place] - Thoracic INTAKE ASSESSOR Surgical Oncology [address] 3rd [place] [address] 09/12/2022 Consult Gastrointestinal Seth Fernandez Elevated l iver enzymes level (Primary Dx); 9:30 AM Eulalio Montenegro MD Increased liver function CDT Gastroenterology, Hepatology & Nutriti on [address] Main Bldg, 7th [place] [address] 09/12/2022 Hospital Encounter Diagnostic Laboratory Annabel, Adenocarcinoma, NOS of upper lobe, lung <Left> 8:40 AM Center Sofy Brizuela PA Discharge Disposition: Home CDT - [address] 09/12/2022 Main Bldg, Elevator A 11:59 [place] [address] CDT 09/12/2022 Travel 09/04/2022 Orders Only Thoracic Center - Norman Mendez Adenocar cinoma, NOS Medical Oncology of upper lobe, lung [address] <Left> (Primary Dx) Main Bldg, 9th Floor Elevator B [place] [id number] 09/01/2022 Hospital Encounter Pain Management Cent er Mauri Barr MD Postoperative pain 11:[address] Discharge Disposition: Home CDT - Main Bldg, 4th Floor 09/01/2022 Elevator A 11:59 PM [place] [id number] CDT [phone] 09/01/2022 Refill Pain Management Cent er Mauri Barr MD Postoperative pain [address] Main Bldg, 4th Floor Elevator A [place] [id number] 08/30/2022 Telephone Thoracic Center - Cyndy Anglin Medical Oncology Rohith, RN [address] Main Bldg, 9th Floor Elevator B [place] [id number] 08/21/2022 Telemedicine Thoracic Center - Moncho Terrell, Postope rative pain; 3:20 PM Medical Oncology MD Sudeep Adenocarcinoma, NOS of upper lobe, lung <Left> MECHANICAL SYSTEMS ENGINEER [address] Main Bldg, 9th [place] [address] 08/21/2022 Travel 08/15/2022 Orders Only Thoracic Center - Annabel, Adenocarci noma, NOS Medical Oncology Sofy Brizuela, PA of upper lobe, lung [address] <Left> (Primary Dx) Main Bldg, 9th [place] [address] 08/14/2022 Travel 08/10/2022 Ancillary Image Library Annabel, Adenocarcinoma, NOS 8:05 PM Procedure [address] Sofy Brizuela, PA of upper lo be, lung MECHANICAL SYSTEMS ENGINEER [place] <Left> [place] [address] 08/10/2022 Ancillary Image Library Annabel, Adenocarcinoma, NOS 8:00 PM Procedure [address] Sofy Brizuela, PA of upper lo be, lung MECHANICAL SYSTEMS ENGINEER [place] <Left> [place] [address] 08/10/2022 Orders Only Thoracic Center - Annabel, Adenocarci noma, NOS Medical Oncology Sofy Brizuela, PA of upper lobe, lung [address] <Left> (Primary Dx) Main Bldg, 9th [place] [address] 08/09/2022 Refill Thoracic Center - Annabel, Adenocarci noma, NOS of upper lobe, lung <Left>; Medical Oncology STORM Spencer Nausea [address] Main Bldg, 9th [place] [address] 08/07/2022 Orders Only Thoracic Center - Annabel, Adenocarci noma, NOS Medical Oncology Sofy Brizuela PA of upper lobe, lung [address] <Left> (Primary Dx) Main Bldg, 9th [place] [address] 08/07/2022 Telephone Thoracic Center - Holly Barragan Medical director of teenage activities [address] Main Bldg, 9th [place] [address] 08/07/2022 Orders Only Thoracic Center - Annabel Medical Oncology STORM Spencer [address] Main Bldg, 9th [place] [address] 08/04/2022 Hospital Encounter Pain Management Cent Mauri Hobson MD Postoperative pain (Primary Dx); 10:[address] Adenocarcinoma, NOS of upper lobe, lung <Left> MECHANICAL SYSTEMS ENGINEER - Main Bldg, 4th Floor Discharge Disposition: Home 08/04/2022 Elevator A 11:[address] [phone] 08/04/2022 Telephone Thoracic Center - Annabel Medical Oncology STORM Spencer [address] Main Bldg, 9th [place] [address] 08/04/2022 Travel 08/02/2022 Ancillary MD Iam Ambrose, Adenocarc inoma, NOS 1:30 PM Procedure [facility] STORM Spencer of upper lobe, lung MECHANICAL SYSTEMS ENGINEER [address] [facility] <Left> South 2nd [place] [address] 08/02/2022 Travel 07/31/2022 Office Visit Internal Medicine Keaton Rodriguez Long-te rm use of anticoagulants (Primary Dx); 8:45 AM Center - Hematology Cerebral venous sinus thromb osis; MECHANICAL SYSTEMS ENGINEER [address] Elevated liver enzymes level [facility], 6th [place] [address] 07/31/2022 Orders Only Neuroradiology [facility], [address] [place] [address] 07/31/2022 Orders Only Thoracic Center - Annabel, Nausea (Pr imary Dx); Medical Oncology STORM Spencer Adenocarcinoma, NOS of upper lobe, lung <Left> [address] Main Bldg, 9th [place] [address] 07/31/2022 Orders Only Thoracic Center - Annabel Adenocarci noma, NOS Medical Oncology STORM Spencer of upper lobe, lung [address] <Left> (Primary Dx) Main Bldg, 9th [place] [address] 07/31/2022 Travel 07/28/2022 Orders Only Thoracic Center - Ann[place], Medical Oncology STORM Spencer [address] Main Bldg, 9th [place] [address] 07/27/2022 Orders Only Thoracic Center - Josephine Modi, Adenoca rcinoma, NOS Surgical Oncology INTAKE ASSESSOR of upper lobe, lung [address] <Left> Main Bldg, 9th [place] [address] 07/27/2022 Orders Only Thoracic Center - Josephine Modi, Adenoca rcinoma, NOS Surgical Oncology INTAKE ASSESSOR of upper lobe, lung [address] <Left> (Primary Dx) Main Bldg, 9th [place] [address] 07/04/2022 Telemedicine Thoracic Center - Moncho Terrell, Adenoca rcinoma, NOS 11:00 AM Medical Oncology MD Sudeep of upper lobe, lung MECHANICAL SYSTEMS ENGINEER [address] <Left> Main Bldg, 9th [place] [address] 07/04/2022 Orders Only Thoracic Center - Angela Ambrose, NOS Medical Oncology Sofy E, PA of upper lobe, lung [address] <Left> (Primary Dx) Main Bldg, 9th [place] [address] 06/30/2022 Telemedicine Jim Thayer, Postopera tive pain (Primary Dx); 10:00 AM Start - Thoracic MD Lugo inoma, NOS of upper lobe, lung <Left>; MECHANICAL SYSTEMS ENGINEER Surgical Oncology Encounter for follow-up exam ination after completed treatment for malignant neoplasm [address] 3rd [place] [address] 06/29/2022 Ancillary Image Library Annabel, Adenocarcinoma, NOS 8:00 PM Procedure [address] Sofy E, PA of upper lo be, lung MECHANICAL SYSTEMS ENGINEER [place] <Left> [place] [address] 06/29/2022 Orders Only Thoracic Center - Angela Ambrose, NOS Medical Oncology Sofy E, PA of upper lobe, lung [address] <Left> (Primary Dx) Main Bldg, 9th [place] [address] 06/28/2022 Ancillary Image Library Moncho Terrell, Cancer 8:00 PM Procedure [address] MD MECHANICAL SYSTEMS [place] [address] 06/26/2022 Ancillary Josephine Barry, Adenoc arcinoma, NOS 9:15 AM Procedure [place] INTAKE ASSESSOR of upper lobe, lung MECHANICAL SYSTEMS ENGINEER [address] [facility] <Left> [facility] 2nd [place] [address] 06/26/2022 Travel 06/09/2022 Orders Only Paula Tate [place] - Thoracic INTAKE ASSESSOR Surgical Oncology [address] [place] [address] 05/31/2022 Telephone Thoracic Center - Josephine Modi, Surgical Oncology INTAKE ASSESSOR [address] Main Bldg, 9th [place] [address] 05/25/2022 Anesthesia Event MAIN OR Ellaluisi, 7:12 AM Nicole Rivas MD [place] [address] Diamante, TINA Ferguson 05/25/2022 Surgery MAIN OR Jim Hernadez, ROBOTIC (RATS) (SI) 7:00 AM Nicole Martinez MD LOBECTOMY [employer] [place] [address] 05/25/2022 11:45 AM MECHANICAL SYSTEMS ENGINEER 05/25/2022 Hospital Encounter MAIN [id number] Jim Hernadez, Adenocarcinoma, NOS of upper lobe, 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> (Primary Dx); 5:20 AM Nicole Mosquera MD Adenocarcinoma of left lung MECHANICAL SYSTEMS ENGINEER - [place] Discharge Disposition: Home 05/29/2022 [place] [address] 12:30 PM [phone] MECHANICAL SYSTEMS ENGINEER 05/25/2022 Travel 05/24/2022 Nutrition Clinical Nutrition Josephine Modi, Adenocarcinoma, NOS 9:00 AM For your Nutrition INTAKE ASSESSOR of upper lobe, lung MECHANICAL SYSTEMS ENGINEER appointment location Candy Delcid, <Left > directions please RD call: 05/24/2022 Anesthesia Event Perioperative Mark Walls, 1:01 AM Evaluation and PA MECHANICAL SYSTEMS ENGINEER Management Center [address] [facility] Main Bldg, 6th Floor Elevator A [place] [place] [id number] 05/24/2022 Travel 05/23/2022 POEM Appointments Perioperative Josephine Modi, Emmie Chisholm w 1:30 PM Evaluation and INTAKE ASSESSOR MECHANICAL SYSTEMS ENGINEER Management [facility] [address] [facility] Main dg, 6th Floor Elevator A [place] [id number] 05/23/2022 Clinical Support Josephine Barry, Kassi spected COVID- 19 (Primary Dx); 9:30 AM [facility] - Covid Testing INTAKE ASSESSOR Adenocarcinoma, NOS of upper lobe, lung <Left> MECHANICAL SYSTEMS ENGINEER [address] [facility] Kai Ana Laura Jace [place], [place] [address] 05/23/2022 Travel 05/09/2022 Follow-Up Thoracic Center - Moncho Terrell, Adenoca rcinoma, NOS 10:40 AM Medical Oncology MD Sudeep of upper lobe, lung MECHANICAL SYSTEMS ENGINEER [address] <Left> Main Bldg, 9th [place] [address] 05/09/2022 Follow-Up [facility] Center - Jim Hernadez, Cerebral thrombosis (Primary Dx); 10:20 AM Surgical Oncology Adenocarcinoma, NOS of upper lobe, lung <Left>; MECHANICAL SYSTEMS ENGINEER [address] Drug induced constipation; Main Bldg, 9th Floor Antineoplastic chemotherapy induced anemia; Elevator [place] [address] 05/09/2022 Hospital Encounter Diagnostic Laboratory Annabel, Adenocarcinoma, NOS of upper lobe, lung <Left> 8:49 AM [facility] STORM Spencer Discharge Disposition: Home MECHANICAL SYSTEMS ENGINEER - [address] 05/09/2022 Main Bldg, Elevator A 11:59 [place] [address] MECHANICAL SYSTEMS ENGINEER 05/09/2022 Prep for Surgery [facility]acic [facility] - Josephine Modi, Inocencia nocarcinoma, NOS Surgical Oncology INTAKE ASSESSOR of upper lobe, lung [address] <Left> (Primary Dx) Main Bldg, 9th [place] [address] 05/09/2022 Travel 04/17/2022 Infusion MD Iam Terrell, Adenoc arcinoma, NOS 10:15 AM Rishi - Thor Sheets MD of upper lobe, lung CDT [address] [facility] <Left> (Pr imary Dx) South 4th [place], [place] [address] 04/17/2022 Telemedicine Thoracic Center - Moncho Terrell, Adenoca rcinoma, NOS 9:00 AM Medical Oncology MD Sudeep of upper lobe, lung CDT [address] <Left> (Primary Dx) Main Bldg, 9th [place] [address] 04/17/2022 Orders Only Thoracic Center - Elvia Olmedo Medical Oncology Roderick, PharmD [address] Main Bldg, 9th [place] [address] 04/17/2022 Travel 04/11/2022 Orders Only Thoracic Center - Nadja Ambrosecarjohanny noma, NOS Medical Oncology Sofy Brizuela PA of upper lobe, lung [address] <Left> (Primary Dx) Main Bldg, 9th [place] [address] 04/10/2022 Office Visit Thoracic Center - Angela Ambrose, NOS 11:30 AM Medical Oncology Sofy Brizuela PA of upper lobe, lung CDT [address] <Left> (Primary Dx) Main Bldg, 9th [place] [address] 04/10/2022 Hospital Encounter Diagnostic Laboratory Moncho brown, Adenocarcinoma, NOS of upper lobe, lung <Left> 10:30 AM Eulalio Sheets MD Discharge Disposition: Home CDT - [address] 04/10/2022 Main Bldg, Elevator A 11:59 [place] [address] CDT 04/10/2022 Refill Thoracic Center - Cyndy Anglin Medical Oncology L, RN [address] Main Bldg, 9th [place] [address] 04/10/2022 Travel after 04/10/2022 Immunizations Name Administration Dates Next Due Pneumococcal Polysaccharide 09/20/2017 Surgical History Surgery Date Site/Laterality Comments 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" CORONARY ANGIOPLASTY 06/18/2016 - no interven tion 06/17/2017 CATARACT EXTRACTION Bilateral BILATERAL W/ ANTERIOR VITRECTOMY COLONOSCOPY 06/18/2017 - 3 precancerous p olpys 06/17/2018 removed DILATION AND CURETTAGE [facility] 12/21/2021 N/A Procedure : BRONCHOSCOPY SAMPL 3/> NODE WITH EBUS 3 OR M ORE STATION/STRUX NODES; Surgeon: Kaylie Mota MD; Locat ion: MAIN PULM PROC; Servi ce: PULMONARY [facility] THORACOSCOPY W/LOBECTOMY 05/25/2022 Left Proc edure: ROBOTIC (RATS) SINGLE LOBE (SI) LOBECTOMY; Surgeon: Jim Hernadez MD ; Location: MAIN O R; Service: THRCV - THORACIC SURGERY Medical devices from this surgery are in t he Medical Devices section. NH THORCOSCPY W/MEDIASTINL 05/25/2022 Left Proce dure: ROBOTIC [...] the highest degree you have received? Sex and Gender Information Value Date Recorded Sex Assigned at Not on file Gender Identity Not on file Sexual Orientation Not on file Job Start Date Occupation [...] CDT Inhaled Oxygen Concentration - - Weight 52.2 kg (115 lb 1.3 oz) 02/02/2023 10:38 AM CDT Height 156.5 cm (5' 1.61") 02/02/2023 10:38 AM CDT Body Mass Index 21.31 02/02/2023 10:38 AM CDT Plan of Treatment Date Type Department Care Team Description 05/21/2023 Appointment Diagnostic Sofy Ambrose, 9:00 AM [facility] [address] Main Bldg, [place] [address] [place] [address] 05/21/2023 Ancillary Procedure Shazia Melchor, 9:30 AM [facility] [address] [facility] [address] [place] [address] 2nd [place] [address] 05/22/2023 [facility]icine [facility], 8:00 AM [facility] Medical Oncology MD Sudeep [address] Main Bldg, 9th [place] [address] [place] [address] [phone] 08/20/2023 Telemedicine Internal Medicine Keaton Rodriguez MD 11:00 AM [facility] Center - Hematology [address] [place] [address] [facility], 6th [phone] (W ork) [place] [address] Health Maintenance Due Date Last Done Comments COVID-19 Vaccination (#1) 10/12/1950 Medical Devices Implanted Type Area Market Editor Device Shelf Model / Identifier Expiration Serial / Date Lot Cath Thoracic Str 28fr - [id number] Left: [employer] 01/06/2025 [id number] / Implanted: Qty: 1 on 05/25/2022 by Jim Hernadez MD at [facility] Chest NANDINI / [id number] Procedures Procedure Name Priority Date/Time Associated Comments Diagnosis CT CHEST ABDOMEN PELVIS Routine 02/02/2023 12:42 Adenocarcinom a, NOS Results for this W CONTRAST PM CDT of upper lobe, lung procedur e are in <Left> the results section. FRACTIONATED BILIRUBIN Routine 02/02/2023 10:17 Adenocarcinoma , NOS Results for this AM CDT of upper lobe, lung procedur e are in <Left> the results section. TOTAL PROTEIN Routine 02/02/2023 10:17 Adenocarcinoma, NOS Res ults for this AM CDT of upper lobe, lung procedur e are in <Left> the results section. ASPARTATE Routine 02/02/2023 10:17 Adenocarcinoma, NOS Resu lts for this AMINOTRANSFERASE AM CDT of upper lobe, lung proc edure are in <Left> the results section. ALANINE AMINOTRANSFERASE Routine 02/02/2023 10:17 Adenocarcino ma, NOS Results for this AM CDT of upper lobe, lung procedur e are in <Left> the results section. ALKALINE PHOSPHATASE Routine 02/02/2023 10:17 Adenocarcinoma, NOS Results for this AM CDT of upper lobe, lung procedur e are in <Left> the results section. ALBUMIN LEVEL Routine 02/02/2023 10:17 Adenocarcinoma, NOS Res ults for this AM CDT of upper lobe, lung procedur e are in <Left> the results section. CALCIUM LEVEL Routine 02/02/2023 10:17 Adenocarcinoma, NOS Res ults for this AM CDT of upper lobe, lung procedur e are in <Left> the results section. .GLOMERULAR FILTRATION Routine 02/02/2023 10:17 Adenocarcinoma , NOS Results for this RATE AM CDT of upper lobe, lung procedur e are in <Left> the results section. SERUM CREATININE Routine 02/02/2023 10:17 Adenocarcinoma, NOS Results for this AM CDT of upper lobe, lung procedur e are in <Left> the results section. ELECTROLYTE PANEL Routine 02/02/2023 10:17 Adenocarcinoma, NOS Results for this AM CDT of upper lobe, lung procedur e are in <Left> the results section. BLOOD UREA NITROGEN Routine 02/02/2023 10:17 Adenocarcinoma, N OS Results for this AM CDT of upper lobe, lung procedur e are in <Left> the results section. GLUCOSE LEVEL Routine 02/02/2023 10:17 Adenocarcinoma, NOS Res ults for this AM CDT of upper lobe, lung procedur e are in <Left> the results section. DIFFERENTIAL Routine 02/02/2023 10:17 Adenocarcinoma, NOS Resu lts for this AM CDT of upper lobe, lung procedur e are in <Left> the results section. .CBC Routine 02/02/2023 10:17 Adenocarcinoma, NOS Resu lts for this AM CDT of upper lobe, lung procedur e are in <Left> the results section. THYROID STIMULATING Routine 02/02/2023 10:17 Adenocarcinoma, N OS Results for this HORMONE AM CDT of upper lobe, lung procedur e are in <Left> the results section. PHOSPHORUS LEVEL Routine 02/02/2023 10:17 Adenocarcinoma, NOS Results for this AM CDT of upper lobe, lung procedur e are in <Left> the results section. MAGNESIUM LEVEL Routine 02/02/2023 10:17 Adenocarcinoma, NOS R esults for this AM CDT of upper lobe, lung procedur e are in <Left> the results section. FREE THYROXINE Routine 02/02/2023 10:17 Adenocarcinoma, NOS Re sults for this AM CDT of upper lobe, lung procedur e are in <Left> the results section. COMPREHENSIVE METABOLIC Routine 02/02/2023 10:17 Adenocarcinom a, NOS PANEL AM CDT of upper lobe, lung <Left> COMPLETE BLOOD COUNT W/ Routine 02/02/2023 10:17 Adenocarcinom a, NOS DIFFERENTIAL AM CDT of upper lobe, lung <Left> OSI CT ABDOMEN AND Routine 01/19/2023 10:25 Adenocarcinoma, NO S Results for this PELVIS AM CDT of upper lobe, lung procedur e are in <Left> the results section. MRI BRAIN W WO CONTRAST Routine 01/16/2023 9:16 Cerebral venou s Results for this AM CDT sinus thrombosis procedure a re in the results section. DIFFERENTIAL Routine 01/09/2023 9:57 Liver enzymes level Resul ts for this AM CDT above reference procedure ar e in range the results section. .CBC Routine 01/09/2023 9:57 Liver enzymes level Resul [...] in range the results section. CALCIUM LEVEL Routine 01/09/2023 9:57 Liver enzymes level [...] in <Left> the results section. CALCIUM LEVEL Routine 11/02/2022 9:04 Adenocarcinoma, NOS Resu [...] e are in <Left> the results section. DIFFERENTIAL Routine 11/02/2022 9:04 Adenocarcinoma, NOS Resul ts for this AM CDT of upper lobe, lung procedur e are in <Left> the results section. .CBC Routine 11/02/2022 9:04 Adenocarcinoma, NOS Resul ts for this AM CDT of upper lobe, lung procedur e are in <Left> the results section. THYROID STIMULATING Routine 11/02/2022 9:04 Adenocarcinoma, NO S Results for this HORMONE AM CDT of upper lobe, lung procedur e are in <Left> the results section. FREE THYROXINE Routine 11/02/2022 9:04 Adenocarcinoma, NOS Res ults for this AM [...] 09/12/2022 9:10 Adenocarcinoma, NOS Results for this [id number] AM CDT of upper lobe, lung procedur e are in <Left> the results section. HEPATIC FUNCTION PANEL Routine 09/12/2022 9:10 Adenocarcinoma, NOS AM CDT of upper lobe, lung <Left> DIFFERENTIAL Routine 08/21/2022 10:43 Adenocarcinoma, NOS Resu lts for this AM MECHANICAL SYSTEMS ENGINEER of upper lobe, lung procedur e are in <Left> the results section. .CBC Routine 08/21/2022 10:43 Adenocarcinoma, NOS Resu lts for this AM MECHANICAL SYSTEMS ENGINEER of upper lobe, lung procedur e are in <Left> the results section. FRACTIONATED BILIRUBIN Routine 08/21/2022 10:43 Adenocarcinoma , NOS Results for this AM MECHANICAL SYSTEMS ENGINEER of upper lobe, lung procedur e are in <Left> the results section. TOTAL PROTEIN Routine 08/21/2022 10:43 Adenocarcinoma, NOS Res ults for this AM MECHANICAL SYSTEMS ENGINEER of upper lobe, lung procedur e are in <Left> the results section. ASPARTATE Routine 08/21/2022 10:43 Adenocarcinoma, NOS Resu lts for this AMINOTRANSFERASE AM MECHANICAL SYSTEMS ENGINEER of upper lobe, lung proc edure are in <Left> the results section. ALANINE AMINOTRANSFERASE Routine 08/21/2022 10:43 Adenocarcino ma, NOS Results for this AM MECHANICAL SYSTEMS ENGINEER of upper lobe, lung procedur e are in <Left> the results section. ALKALINE PHOSPHATASE Routine 08/21/2022 10:43 Adenocarcinoma, NOS Results for this AM MECHANICAL SYSTEMS ENGINEER of upper lobe, lung procedur e are in <Left> the results section. ALBUMIN LEVEL Routine 08/21/2022 10:43 Adenocarcinoma, NOS Res ults for this AM MECHANICAL SYSTEMS ENGINEER of upper lobe, lung procedur e are in <Left> the results section. COMPLETE BLOOD COUNT W/ Routine 08/21/2022 10:43 Adenocarcinom a, NOS DIFFERENTIAL AM MECHANICAL SYSTEMS ENGINEER of upper lobe, lung <Left> GAMMA GLUTAMYL Routine 08/21/2022 10:43 Adenocarcinoma, NOS Re sults for this TRANSFERASE AM MECHANICAL SYSTEMS ENGINEER of upper lobe, lung procedur e are in <Left> the results section. HEPATIC FUNCTION PANEL Routine 08/21/2022 10:43 Adenocarcinoma , NOS AM MECHANICAL SYSTEMS ENGINEER of upper lobe, lung <Left> FRACTIONATED BILIRUBIN Routine 08/14/2022 9:21 Adenocarcinoma, NOS Results for this AM MECHANICAL SYSTEMS ENGINEER of upper lobe, lung procedur e are in <Left> the results section. TOTAL PROTEIN Routine 08/14/2022 9:21 Adenocarcinoma, NOS Resu lts for this AM MECHANICAL SYSTEMS ENGINEER of upper lobe, lung procedur e are in <Left> the results section. ASPARTATE Routine 08/14/2022 9:21 Adenocarcinoma, NOS Resul ts for this AMINOTRANSFERASE AM MECHANICAL SYSTEMS ENGINEER of upper lobe, lung proc edure are in <Left> the results section. ALANINE AMINOTRANSFERASE Routine 08/14/2022 9:21 Adenocarcinom a, NOS Results for this AM MECHANICAL SYSTEMS ENGINEER of upper lobe, lung procedur e are in <Left> the results section. ALKALINE PHOSPHATASE Routine 08/14/2022 9:21 Adenocarcinoma, N OS Results for this AM MECHANICAL SYSTEMS ENGINEER of upper lobe, lung procedur e are in <Left> the results section. ALBUMIN LEVEL Routine 08/14/2022 9:21 Adenocarcinoma, NOS Resu lts for this AM MECHANICAL SYSTEMS ENGINEER of upper lobe, lung procedur e are in <Left> the results section. GAMMA GLUTAMYL Routine 08/14/2022 9:21 Adenocarcinoma, NOS Res ults for this TRANSFERASE AM MECHANICAL SYSTEMS ENGINEER of upper lobe, lung procedur e are in <Left> the results section. HEPATIC FUNCTION PANEL Routine 08/14/2022 9:21 Adenocarcinoma, NOS AM MECHANICAL SYSTEMS ENGINEER of upper lobe, lung <Left> DIFFERENTIAL Routine 08/07/2022 9:30 Increased liver Results f or this AM MECHANICAL SYSTEMS ENGINEER function procedure are i n the results section. .CBC Routine 08/07/2022 9:30 Increased liver Results f or this AM MECHANICAL SYSTEMS ENGINEER function procedure are i n the results section. FRACTIONATED BILIRUBIN Routine 08/07/2022 9:30 Increased liver Results for this AM MECHANICAL SYSTEMS ENGINEER function procedure are i n the results section. TOTAL PROTEIN Routine 08/07/2022 9:30 Increased liver Results for this AM MECHANICAL SYSTEMS ENGINEER function procedure are i n the results section. ASPARTATE Routine 08/07/2022 9:30 Increased liver Results f or this AMINOTRANSFERASE AM MECHANICAL SYSTEMS ENGINEER function procedure a re in the results section. ALANINE AMINOTRANSFERASE Routine 08/07/2022 9:30 Increased juanita er Results for this AM MECHANICAL SYSTEMS ENGINEER function procedure are i n the results section. ALKALINE PHOSPHATASE Routine 08/07/2022 9:30 Increased liver R esults for this AM MECHANICAL SYSTEMS ENGINEER function procedure are i n the results section. ALBUMIN LEVEL Routine 08/07/2022 9:30 Increased liver Results for this AM MECHANICAL SYSTEMS ENGINEER function procedure are i n the results section. CALCIUM LEVEL Routine 08/07/2022 9:30 Increased liver Results for this AM MECHANICAL SYSTEMS ENGINEER function procedure are i n the results section. .GLOMERULAR FILTRATION Routine 08/07/2022 9:30 Increased liver Results for this RATE AM MECHANICAL SYSTEMS ENGINEER function procedure are i n the results section. SERUM CREATININE Routine 08/07/2022 9:30 Increased liver Resul ts for this AM MECHANICAL SYSTEMS ENGINEER function procedure are i n the results section. ELECTROLYTE PANEL Routine 08/07/2022 9:30 Increased liver Resu lts for this AM MECHANICAL SYSTEMS ENGINEER function procedure are i n the results section. BLOOD UREA NITROGEN Routine 08/07/2022 9:30 Increased liver Re sults for this AM MECHANICAL SYSTEMS ENGINEER function procedure are i n the results section. GLUCOSE LEVEL Routine 08/07/2022 9:30 Increased liver Results for this AM MECHANICAL SYSTEMS ENGINEER function procedure are i n the results section. HEPATITIS B CORE Routine 08/07/2022 9:30 Results for this ANTIBODY AM MECHANICAL SYSTEMS ENGINEER procedure are i n the results section. THYROID STIMULATING Routine 08/07/2022 9:30 Increased liver Re sults for this HORMONE AM MECHANICAL SYSTEMS ENGINEER function procedure are i n the results section. FERRITIN Routine 08/07/2022 9:30 Increased liver Results f or this AM MECHANICAL SYSTEMS ENGINEER function procedure are i n the results section. TRANSFERRIN Routine 08/07/2022 9:30 Increased liver Results f or this AM MECHANICAL SYSTEMS ENGINEER function procedure are i n the results section. IRON LEVEL Routine 08/07/2022 9:30 Increased liver Results f or this AM MECHANICAL SYSTEMS ENGINEER function procedure are i n the results section. TISSUE TRANSGLUTAMINASE Routine 08/07/2022 9:30 Increased live r Results for this ANTIBODY AM MECHANICAL SYSTEMS ENGINEER function procedure are i n the results section. IMMUNOGLOBULIN A Routine 08/07/2022 9:30 Increased liver Resul ts for this AM MECHANICAL SYSTEMS ENGINEER function procedure are i n the results section. IMMUNOGLOBULIN M Routine 08/07/2022 9:30 Increased liver Resul ts for this AM MECHANICAL SYSTEMS ENGINEER function procedure are i n the results section. IMMUNOGLOBULIN G Routine 08/07/2022 9:30 Increased liver Resul ts for this AM MECHANICAL SYSTEMS ENGINEER function procedure are i n the results section. LIVER/KIDNEY MICROSOME 1 Routine 08/07/2022 9:30 Increased juanita er Results for this AB AM MECHANICAL SYSTEMS ENGINEER function procedure are i n the results section. SMOOTH MUSCLE ANTIBODY Routine 08/07/2022 9:30 Increased liver Results for this SCREEN AM MECHANICAL SYSTEMS ENGINEER function procedure are i n the results section. MITOCHONDRIAL AB M2 Routine 08/07/2022 9:30 Increased liver Re sults for this SERUM AM MECHANICAL SYSTEMS ENGINEER function procedure are i n the results section. ANTINUCLEAR ANTIBODY Routine 08/07/2022 9:30 Increased liver R esults for this HEP-2 SUBSTRATE IGG AM MECHANICAL SYSTEMS ENGINEER function procedur e are in the results section. ALPHA 1 ANTRITRYPSIN Routine 08/07/2022 9:30 Increased liver R esults for this SERUM AM MECHANICAL SYSTEMS ENGINEER function procedure are i n the results section. CERULOPLASMIN Routine 08/07/2022 9:30 Increased liver Results for this AM MECHANICAL SYSTEMS ENGINEER function procedure are i n the results section. HIV 1/2 Routine 08/07/2022 9:30 Increased liver Results f or this ANTIGEN/ANTIBODY, FOURTH AM MECHANICAL SYSTEMS ENGINEER function pro cedure are in GEN W/RFL the results section. EBV ANTIBODY PANEL Routine 08/07/2022 9:30 Increased liver Res ults for this AM MECHANICAL SYSTEMS ENGINEER function procedure are i n the results section. CMV QUANT PCR, PLASMA Routine 08/07/2022 9:30 Increased liver Results for this AM MECHANICAL SYSTEMS ENGINEER function procedure are i n the results section. HEPATITIS E VIRUS BY Routine 08/07/2022 9:30 Increased liver R esults for this QUANTITATIVE PCR AM MECHANICAL SYSTEMS ENGINEER function procedure a re in the results section. HEPATITIS E IGG AB Routine 08/07/2022 9:30 Increased liver Res ults for this AM MECHANICAL SYSTEMS ENGINEER function procedure are i n the results section. HEPATITIS E IGM AB Routine 08/07/2022 9:30 Increased liver Res ults for this AM MECHANICAL SYSTEMS ENGINEER function procedure are i n the results section. HEPATITIS C VIRUS RNA Routine 08/07/2022 9:30 Increased liver Results for this DETECT/QUANT, SERUM AM MECHANICAL SYSTEMS ENGINEER function procedur e are in the results section. HEPATITIS C VIRUS Routine 08/07/2022 9:30 Increased liver Resu lts for this ANTIBODY AM MECHANICAL SYSTEMS ENGINEER function procedure are i n the results section. HBV DNA QUANT Routine 08/07/2022 9:30 Increased liver Results for this AM MECHANICAL SYSTEMS ENGINEER function procedure are i n the results section. HEPATITIS B CORE Routine 08/07/2022 9:30 Increased liver Resul ts for this ANTIBODY AM MECHANICAL SYSTEMS ENGINEER function procedure are i n the results section. HEPATITIS B CORE Routine 08/07/2022 9:30 Increased liver Resul ts for this ANTIBODY IGM ACUTE TITER AM MECHANICAL SYSTEMS ENGINEER function pro cedure are in the results section. HEPATITIS B SURFACE Routine 08/07/2022 9:30 Increased liver Re sults for this ANTIBODY AM MECHANICAL SYSTEMS ENGINEER function procedure are i n the results section. HEPATITIS B SURFACE Routine 08/07/2022 9:30 Increased liver Re sults for this ANTIGEN AM MECHANICAL SYSTEMS ENGINEER function procedure are i n the results section. HEPATITIS A ANTIBODY IGG Routine 08/07/2022 9:30 Increased juanita er Results for this AM MECHANICAL SYSTEMS ENGINEER function procedure are i n the results section. HEPATITIS A IGM ANTIBODY Routine 08/07/2022 9:30 Increased juanita er Results for this SERUM AM MECHANICAL SYSTEMS ENGINEER function procedure are i n the results section. PROTHROMBIN TIME Routine 08/07/2022 9:30 Increased liver Resul ts for this AM MECHANICAL SYSTEMS ENGINEER function procedure are i n the results section. COMPLETE BLOOD COUNT W/ Routine 08/07/2022 9:30 Increased live r DIFFERENTIAL AM MECHANICAL SYSTEMS ENGINEER function GAMMA GLUTAMYL Routine 08/07/2022 9:30 Increased liver Results for this TRANSFERASE AM MECHANICAL SYSTEMS ENGINEER function procedure are i n the results section. HEPATIC FUNCTION PANEL Routine 08/07/2022 9:30 Increased liver AM MECHANICAL SYSTEMS ENGINEER function BASIC METABOLIC PANEL, Routine 08/07/2022 9:30 Increased liver CALCIUM TOTAL AM MECHANICAL SYSTEMS ENGINEER function CMV ANTIBODY IGG + IGM - Routine 08/07/2022 9:30 Results for this PATHOLOGIST REVIEW AM MECHANICAL SYSTEMS ENGINEER procedure are in the results section. EBV ANTIBODY PANEL - Routine 08/07/2022 9:30 Resu lts for this PATHOLOGIST REVIEW AM MECHANICAL SYSTEMS ENGINEER procedure are in the results section. EBV QUANT PCR, PLASMA Routine 08/07/2022 9:30 Increased liver Results for this AM MECHANICAL SYSTEMS ENGINEER function procedure are i n the results section. CMV ANTIBODY IGG + IGM Routine 08/07/2022 9:30 Increased liver Results for this AM MECHANICAL SYSTEMS ENGINEER function procedure are i n the results section. HSV 1 & 2 QUANT PCR, Routine 08/07/2022 9:30 Increased liver R esults for this PLASMA AM MECHANICAL SYSTEMS ENGINEER function procedure are i n the results section. PETCT SUBSEQUENT Routine 08/02/2022 3:42 Adenocarcinoma, NOS R esults for this TREATMENT STRATEGY PM MECHANICAL SYSTEMS ENGINEER of upper lobe, lung pr ocedure are in <Left> the results section. OSI CT ABDOMEN AND Routine 08/02/2022 2:47 Adenocarcinoma, NOS Results for this PELVIS PM MECHANICAL SYSTEMS ENGINEER of upper lobe, lung procedur e are in <Left> the results section. OSI CT BRAIN Routine 08/02/2022 2:47 Adenocarcinoma, NOS Resul ts for this PM MECHANICAL SYSTEMS ENGINEER of upper lobe, lung procedur e are in <Left> the results section. DIFFERENTIAL Routine 08/02/2022 11:24 Adenocarcinoma, NOS Resu lts for this AM MECHANICAL SYSTEMS ENGINEER of upper lobe, lung procedur e are in <Left> the results section. .CBC Routine 08/02/2022 11:24 Adenocarcinoma, NOS Resu lts for this AM MECHANICAL SYSTEMS ENGINEER of upper lobe, lung procedur e are in <Left> the results section. FRACTIONATED BILIRUBIN Routine 08/02/2022 11:24 Adenocarcinoma , NOS Results for this AM MECHANICAL SYSTEMS ENGINEER of upper lobe, lung procedur e are in <Left> the results section. TOTAL PROTEIN Routine 08/02/2022 11:24 Adenocarcinoma, NOS Res ults for this AM MECHANICAL SYSTEMS ENGINEER of upper lobe, lung procedur e are in <Left> the results section. ASPARTATE Routine 08/02/2022 11:24 Adenocarcinoma, NOS Resu lts for this AMINOTRANSFERASE AM MECHANICAL SYSTEMS ENGINEER of upper lobe, lung proc edure are in <Left> the results section. ALANINE AMINOTRANSFERASE Routine 08/02/2022 11:24 Adenocarcino ma, NOS Results for this AM MECHANICAL SYSTEMS ENGINEER of upper lobe, lung procedur e are in <Left> the results section. ALKALINE PHOSPHATASE Routine 08/02/2022 11:24 Adenocarcinoma, NOS Results for this AM MECHANICAL SYSTEMS ENGINEER of upper lobe, lung procedur e are in <Left> the results section. ALBUMIN LEVEL Routine 08/02/2022 11:24 Adenocarcinoma, NOS Res ults for this AM MECHANICAL SYSTEMS ENGINEER of upper lobe, lung procedur e are in <Left> the results section. CALCIUM LEVEL Routine 08/02/2022 11:24 Adenocarcinoma, NOS Res ults for this AM MECHANICAL SYSTEMS ENGINEER of upper lobe, lung procedur e are in <Left> the results section. .GLOMERULAR FILTRATION Routine 08/02/2022 11:24 Adenocarcinoma , NOS Results for this RATE AM MECHANICAL SYSTEMS ENGINEER of upper lobe, lung procedur e are in <Left> the results section. SERUM CREATININE Routine 08/02/2022 11:24 Adenocarcinoma, NOS Results for this AM MECHANICAL SYSTEMS ENGINEER of upper lobe, lung procedur e are in <Left> the results section. ELECTROLYTE PANEL Routine 08/02/2022 11:24 Adenocarcinoma, NOS Results for this AM MECHANICAL SYSTEMS ENGINEER of upper lobe, lung procedur e are in <Left> the results section. BLOOD UREA NITROGEN Routine 08/02/2022 11:24 Adenocarcinoma, N OS Results for this AM MECHANICAL SYSTEMS ENGINEER of upper lobe, lung procedur e are in <Left> the results section. GLUCOSE LEVEL Routine 08/02/2022 11:24 Adenocarcinoma, NOS Res ults for this AM MECHANICAL SYSTEMS ENGINEER of upper lobe, lung procedur e are in <Left> the results section. GAMMA GLUTAMYL Routine 08/02/2022 11:24 Adenocarcinoma, NOS Re sults for this TRANSFERASE AM MECHANICAL SYSTEMS ENGINEER of upper lobe, lung procedur e are in <Left> the results section. CREATINE KINASE Routine 08/02/2022 11:24 Adenocarcinoma, NOS R esults for this AM MECHANICAL SYSTEMS ENGINEER of upper lobe, lung procedur e are in <Left> the results section. COMPLETE BLOOD COUNT W/ Routine 08/02/2022 11:24 Adenocarcinom a, NOS DIFFERENTIAL AM MECHANICAL SYSTEMS ENGINEER of upper lobe, lung <Left> COMPREHENSIVE METABOLIC Routine 08/02/2022 11:24 Adenocarcinom a, NOS PANEL AM MECHANICAL SYSTEMS ENGINEER of upper lobe, lung <Left> XR CHEST 2 VW Routine 06/26/2022 8:58 Adenocarcinoma, NOS Resu lts for this AM MECHANICAL SYSTEMS ENGINEER of upper lobe, lung procedur e are in <Left> the results section. OSI CHEST Routine 06/16/2022 8:58 Adenocarcinoma, NOS Resul ts for this AM MECHANICAL SYSTEMS ENGINEER of upper lobe, lung procedur e are in <Left> the results section. OSCILLATORY PEP Routine 05/28/2022 8:00 AM MECHANICAL SYSTEMS ENGINEER OSCILLATORY PEP Routine 05/27/2022 8:00 PM MECHANICAL SYSTEMS ENGINEER OSCILLATORY PEP Routine 05/27/2022 8:00 AM MECHANICAL SYSTEMS ENGINEER CALCIUM LEVEL Routine 05/27/2022 4:03 Results for this AM MECHANICAL SYSTEMS ENGINEER procedure are i n the results section. .GLOMERULAR FILTRATION Routine 05/27/2022 4:03 Re sults for this RATE AM MECHANICAL SYSTEMS ENGINEER procedure are i n the results section. SERUM CREATININE Routine 05/27/2022 4:03 Results for this AM MECHANICAL SYSTEMS ENGINEER procedure are i n the results section. ELECTROLYTE PANEL Routine 05/27/2022 4:03 Results for this AM MECHANICAL SYSTEMS ENGINEER procedure are i n the results section. BLOOD UREA NITROGEN Routine 05/27/2022 4:03 Resul ts for this AM MECHANICAL SYSTEMS ENGINEER procedure are i n the results section. GLUCOSE LEVEL Routine 05/27/2022 4:03 Results for this AM MECHANICAL SYSTEMS ENGINEER procedure are i n the results section. MAGNESIUM LEVEL Routine 05/27/2022 4:03 Results f or this AM MECHANICAL SYSTEMS ENGINEER procedure are i n the results section. BASIC METABOLIC PANEL, Routine 05/27/2022 4:03 CALCIUM TOTAL AM MECHANICAL SYSTEMS ENGINEER COMPLETE BLOOD COUNT W/ Routine 05/27/2022 4:03 R esults for this INDICES AM MECHANICAL SYSTEMS ENGINEER procedure are i n the results section. OSCILLATORY PEP Routine 05/26/2022 2:01 PM MECHANICAL SYSTEMS ENGINEER OSCILLATORY PEP Routine 05/26/2022 8:00 AM MECHANICAL SYSTEMS ENGINEER XR CHEST 2 VW Routine 05/26/2022 7:50 Results for this AM MECHANICAL SYSTEMS ENGINEER procedure are i n the results section. ANION GAP Routine 05/26/2022 5:50 Results for this AM MECHANICAL SYSTEMS ENGINEER procedure are i n the results section. DIFFERENTIAL Now 05/26/2022 5:50 Results for this AM MECHANICAL SYSTEMS ENGINEER procedure are i n the results section. .CBC Now 05/26/2022 5:50 Results for this AM MECHANICAL SYSTEMS ENGINEER procedure are i n the results section. .GLOMERULAR FILTRATION Now 05/26/2022 5:50 Re sults for this RATE AM MECHANICAL SYSTEMS ENGINEER procedure are i n the results section. SERUM CREATININE Now 05/26/2022 5:50 Results for this AM MECHANICAL SYSTEMS ENGINEER procedure are i n the results section. COMPLETE BLOOD COUNT W/ Now 05/26/2022 5:50 DIFFERENTIAL AM MECHANICAL SYSTEMS ENGINEER PHOSPHORUS LEVEL Now 05/26/2022 5:50 Results for this AM MECHANICAL SYSTEMS ENGINEER procedure are i n the results section. CALCIUM LEVEL Now 05/26/2022 5:50 Results for this AM MECHANICAL SYSTEMS ENGINEER procedure are i n the results section. MAGNESIUM LEVEL Now 05/26/2022 5:50 Results f or this AM MECHANICAL SYSTEMS ENGINEER procedure are i n the results section. GLUCOSE, RANDOM Now 05/26/2022 5:50 Results f or this AM MECHANICAL SYSTEMS ENGINEER procedure are i n the results section. CREATININE Now 05/26/2022 5:50 AM MECHANICAL SYSTEMS ENGINEER BLOOD UREA NITROGEN Now 05/26/2022 5:50 Resul ts for this AM MECHANICAL SYSTEMS ENGINEER procedure are i n the results section. CARBON DIOXIDE LEVEL Now 05/26/2022 5:50 Resu lts for this AM MECHANICAL SYSTEMS ENGINEER procedure are i n the results section. CHLORIDE LEVEL Now 05/26/2022 5:50 Results fo r this AM MECHANICAL SYSTEMS ENGINEER procedure are i n the results section. POTASSIUM LEVEL Now 05/26/2022 5:50 Results f or this AM MECHANICAL SYSTEMS ENGINEER procedure are i n the results section. SODIUM LEVEL Now 05/26/2022 5:50 Results for this AM MECHANICAL SYSTEMS ENGINEER procedure are i n the results section. CALCIUM IONIZED, VENOUS Now 05/26/2022 5:50 R esults for this AM MECHANICAL SYSTEMS ENGINEER procedure are i n the results section. OSCILLATORY PEP Routine 05/25/2022 8:46 PM MECHANICAL SYSTEMS ENGINEER OSCILLATORY PEP Routine 05/25/2022 8:46 PM MECHANICAL SYSTEMS ENGINEER OSCILLATORY PEP Routine 05/25/2022 8:46 PM MECHANICAL SYSTEMS ENGINEER ANION GAP STAT 05/25/2022 11:26 Results for this AM MECHANICAL SYSTEMS ENGINEER procedure are i n the results section. DIFFERENTIAL STAT 05/25/2022 11:26 Results for this AM MECHANICAL SYSTEMS ENGINEER procedure are i n the results section. .CBC STAT 05/25/2022 11:26 Results for this AM MECHANICAL SYSTEMS ENGINEER procedure are i n the results section. .GLOMERULAR FILTRATION STAT 05/25/2022 11:26 R esults for this RATE AM MECHANICAL SYSTEMS ENGINEER procedure are i n the results section. SERUM CREATININE STAT 05/25/2022 11:26 Results for this AM MECHANICAL SYSTEMS ENGINEER procedure are i n the results section. COMPLETE BLOOD COUNT W/ STAT 05/25/2022 11:26 DIFFERENTIAL AM MECHANICAL SYSTEMS ENGINEER PHOSPHORUS LEVEL STAT 05/25/2022 11:26 Results for this AM MECHANICAL SYSTEMS ENGINEER procedure are i n the results section. CALCIUM IONIZED, VENOUS STAT 05/25/2022 11:26 Results for this AM MECHANICAL SYSTEMS ENGINEER procedure are i n the results section. CALCIUM LEVEL STAT 05/25/2022 11:26 Results fo r this AM MECHANICAL SYSTEMS ENGINEER procedure are i n the results section. MAGNESIUM LEVEL STAT 05/25/2022 11:26 Results for this AM MECHANICAL SYSTEMS ENGINEER procedure are i n the results section. GLUCOSE, RANDOM STAT 05/25/2022 11:26 Results for this AM MECHANICAL SYSTEMS ENGINEER procedure are i n the results section. CREATININE STAT 05/25/2022 11:26 AM MECHANICAL SYSTEMS ENGINEER BLOOD UREA NITROGEN STAT 05/25/2022 11:26 Resu lts for this AM MECHANICAL SYSTEMS ENGINEER procedure are i n the results section. CARBON DIOXIDE LEVEL STAT 05/25/2022 11:26 Res ults for this AM MECHANICAL SYSTEMS ENGINEER procedure are i n the results section. CHLORIDE LEVEL STAT 05/25/2022 11:26 Results f or this AM MECHANICAL SYSTEMS ENGINEER procedure are i n the results section. POTASSIUM LEVEL STAT 05/25/2022 11:26 Results for this AM MECHANICAL SYSTEMS ENGINEER procedure are i n the results section. SODIUM LEVEL STAT 05/25/2022 11:26 Results for this AM MECHANICAL SYSTEMS ENGINEER procedure are i n the results section. XR CHEST 1 VW STAT 05/25/2022 10:56 Results fo r this AM MECHANICAL SYSTEMS ENGINEER procedure are i n the results section. PATHOLOGY SURGICAL Routine 05/25/2022 8:21 Adenocarcinoma, NOS Results for this INTERPRETATION AM MECHANICAL SYSTEMS ENGINEER of upper lobe, lung proced ure are in <Left> the results section. ROBOTIC (RATS) 05/25/2022 6:27 Adenocarcinoma, NOS MEDIASTINAL AM MECHANICAL SYSTEMS ENGINEER of upper lobe, lung LYMPHADENECTOMY <Left> Special Needs TT@500Use Dr. Walsh Block time 180mins ROBOTIC (RATS) LOBECTOMY 05/25/2022 6:27 AM MECHANICAL SYSTEMS ENGINEER Adenoc arcinoma, NOS of upper lobe, lung <Left> Special Needs TT@500Use Dr. Walsh Block time 180mins TMP CROSSMATCH Routine 05/23/2022 9:58 AM Results for this INTERPRETATION MECHANICAL SYSTEMS ENGINEER procedure are in the results section. TMP INTERPRETATION Routine 05/23/2022 9:58 AM Res ults for this ANTIBODY SCREEN NEGATIVE MECHANICAL SYSTEMS ENGINEER pro cedure are in the results section. CLOT EXPIRATION DATE Routine 05/23/2022 9:58 AM R esults for this MECHANICAL SYSTEMS ENGINEER procedure are i n the results section. ANTIBODY SCREEN Routine 05/23/2022 9:58 AM Adenocarcinoma, Res ults for this MECHANICAL SYSTEMS ENGINEER NOS of upper procedure are i n lobe, lung <Left> the result s section. ABORH Routine 05/23/2022 9:58 AM Adenocarcinoma, Result s for this MECHANICAL SYSTEMS ENGINEER NOS of upper procedure are i n lobe, lung <Left> the result s section. FRACTIONATED BILIRUBIN Routine 05/23/2022 9:58 AM Adenocarcino ma, Results for this MECHANICAL SYSTEMS ENGINEER NOS of upper procedure are i n lobe, lung <Left> the result s section. TOTAL PROTEIN Routine 05/23/2022 9:58 AM Adenocarcinoma, Resul ts for this MECHANICAL SYSTEMS ENGINEER NOS of upper procedure are i n lobe, lung <Left> the result s section. ASPARTATE Routine 05/23/2022 9:58 AM Adenocarcinoma, Result s for this AMINOTRANSFERASE MECHANICAL SYSTEMS ENGINEER NOS of upper procedure a re in lobe, lung <Left> the result s section. ALANINE AMINOTRANSFERASE Routine 05/23/2022 9:58 AM Adenocarci noma, Results for this MECHANICAL SYSTEMS ENGINEER NOS of upper procedure are i n lobe, lung <Left> the result s section. ALKALINE PHOSPHATASE Routine 05/23/2022 9:58 AM Adenocarcinoma , Results for this MECHANICAL SYSTEMS ENGINEER NOS of upper procedure are i n lobe, lung <Left> the result s section. ALBUMIN LEVEL Routine 05/23/2022 9:58 AM Adenocarcinoma, Resul ts for this MECHANICAL SYSTEMS ENGINEER NOS of upper procedure are i n lobe, lung <Left> the result s section. CALCIUM LEVEL Routine 05/23/2022 9:58 AM Adenocarcinoma, Resul ts for this MECHANICAL SYSTEMS ENGINEER NOS of upper procedure are i n lobe, lung <Left> the result s section. .GLOMERULAR FILTRATION Routine 05/23/2022 9:58 AM Adenocarcino ma, Results for this RATE MECHANICAL SYSTEMS ENGINEER NOS of upper procedure are i n lobe, lung <Left> the result s section. SERUM CREATININE Routine 05/23/2022 9:58 AM Adenocarcinoma, Re sults for this MECHANICAL SYSTEMS ENGINEER NOS of upper procedure are i n lobe, lung <Left> the result s section. ELECTROLYTE PANEL Routine 05/23/2022 9:58 AM Adenocarcinoma, R esults for this MECHANICAL SYSTEMS ENGINEER NOS of upper procedure are i n lobe, lung <Left> the result s section. BLOOD UREA NITROGEN Routine 05/23/2022 9:58 AM Adenocarcinoma, Results for this MECHANICAL SYSTEMS ENGINEER NOS of upper procedure are i n lobe, lung <Left> the result s section. GLUCOSE LEVEL Routine 05/23/2022 9:58 AM Adenocarcinoma, Resul ts for this MECHANICAL SYSTEMS ENGINEER NOS of upper procedure are i n lobe, lung <Left> the result s section. DIFFERENTIAL Routine 05/23/2022 9:58 AM Adenocarcinoma, Result s for this MECHANICAL SYSTEMS ENGINEER NOS of upper procedure are i n lobe, lung <Left> the result s section. .CBC Routine 05/23/2022 9:58 AM Adenocarcinoma, Result s for this MECHANICAL SYSTEMS ENGINEER NOS of upper procedure are i n lobe, lung <Left> the result s section. TRANSFERRIN Routine 05/23/2022 9:58 AM Adenocarcinoma, Result s for this MECHANICAL SYSTEMS ENGINEER NOS of upper procedure are i n lobe, lung <Left> the result s section. TYPE AND SCREEN Routine 05/23/2022 9:58 AM Adenocarcinoma, MECHANICAL SYSTEMS ENGINEER NOS of upper lobe, lung <Left> APTT Routine 05/23/2022 9:58 AM Adenocarcinoma, Result s for this MECHANICAL SYSTEMS ENGINEER NOS of upper procedure are i n lobe, lung <Left> the result s section. PROTHROMBIN TIME Routine 05/23/2022 9:58 AM Adenocarcinoma, Re sults for this MECHANICAL SYSTEMS ENGINEER NOS of upper procedure are i n lobe, lung <Left> the result s section. IRON LEVEL Routine 05/23/2022 9:58 AM Adenocarcinoma, Result s for this MECHANICAL SYSTEMS ENGINEER NOS of upper procedure are i n lobe, lung <Left> the result s section. HEMOGLOBIN A1C Routine 05/23/2022 9:58 AM Adenocarcinoma, Resu lts for this MECHANICAL SYSTEMS ENGINEER NOS of upper procedure are i n lobe, lung <Left> the result s section. FERRITIN Routine 05/23/2022 9:58 AM Adenocarcinoma, Result s for this MECHANICAL SYSTEMS ENGINEER NOS of upper procedure are i n lobe, lung <Left> the result s section. FREE THYROXINE Routine 05/23/2022 9:58 AM Adenocarcinoma, Resu lts for this MECHANICAL SYSTEMS ENGINEER NOS of upper procedure are i n lobe, lung <Left> the result s section. COMPREHENSIVE METABOLIC Routine 05/23/2022 9:58 AM Adenocarcin muriel, PANEL MECHANICAL SYSTEMS ENGINEER NOS of upper lobe, lung <Left> COMPLETE BLOOD COUNT W/ Routine 05/23/2022 9:58 AM Adenocarcin muriel, DIFFERENTIAL MECHANICAL SYSTEMS ENGINEER NOS of upper lobe, lung <Left> CONFIRM ABORH TYPE Routine 05/23/2022 9:56 AM Res ults for this MECHANICAL SYSTEMS ENGINEER procedure are i n the results section. COVID-19 (SARS-COV-2) PCR Routine 05/23/2022 9:45 AM Suspected Results for this - ASYMPTOMATIC - [facility] MECHANICAL SYSTEMS ENGINEER COVID-19 procedur e are in the results section. DIFFERENTIAL Routine 05/09/2022 9:15 AM Adenocarcinoma, Result s for this MECHANICAL SYSTEMS ENGINEER NOS of upper procedure are i n lobe, lung <Left> the result s section. .CBC Routine 05/09/2022 9:15 AM Adenocarcinoma, Result s for this MECHANICAL SYSTEMS ENGINEER NOS of upper procedure are i n lobe, lung <Left> the result s section. FRACTIONATED BILIRUBIN Routine 05/09/2022 9:15 AM Adenocarcino ma, Results for this MECHANICAL SYSTEMS ENGINEER NOS of upper procedure are i n lobe, lung <Left> the result s section. TOTAL PROTEIN Routine 05/09/2022 9:15 AM Adenocarcinoma, Resul ts for this MECHANICAL SYSTEMS ENGINEER NOS of upper procedure are i n lobe, lung <Left> the result s section. ASPARTATE Routine 05/09/2022 9:15 AM Adenocarcinoma, Result s for this AMINOTRANSFERASE MECHANICAL SYSTEMS ENGINEER NOS of upper procedure a re in lobe, lung <Left> the result s section. ALANINE AMINOTRANSFERASE Routine 05/09/2022 9:15 AM Adenocarci noma, Results for this MECHANICAL SYSTEMS ENGINEER NOS of upper procedure are i n lobe, lung <Left> the result s section. ALKALINE PHOSPHATASE Routine 05/09/2022 9:15 AM Adenocarcinoma , Results for this MECHANICAL SYSTEMS ENGINEER NOS of upper procedure are i n lobe, lung <Left> the result s section. ALBUMIN LEVEL Routine 05/09/2022 9:15 AM Adenocarcinoma, Resul ts for this MECHANICAL SYSTEMS ENGINEER NOS of upper procedure are i n lobe, lung <Left> the result s section. CALCIUM LEVEL Routine 05/09/2022 9:15 AM Adenocarcinoma, Resul ts for this MECHANICAL SYSTEMS ENGINEER NOS of upper procedure are i n lobe, lung <Left> the result s section. .GLOMERULAR FILTRATION Routine 05/09/2022 9:15 AM Adenocarcino ma, Results for this RATE MECHANICAL SYSTEMS ENGINEER NOS of upper procedure are i n lobe, lung <Left> the result s section. SERUM CREATININE Routine 05/09/2022 9:15 AM Adenocarcinoma, Re sults for this MECHANICAL SYSTEMS ENGINEER NOS of upper procedure are i n lobe, lung <Left> the result s section. ELECTROLYTE PANEL Routine 05/09/2022 9:15 AM Adenocarcinoma, R esults for this MECHANICAL SYSTEMS ENGINEER NOS of upper procedure are i n lobe, lung <Left> the result s section. BLOOD UREA NITROGEN Routine 05/09/2022 9:15 AM Adenocarcinoma, Results for this MECHANICAL SYSTEMS ENGINEER NOS of upper procedure are i n lobe, lung <Left> the result s section. GLUCOSE LEVEL Routine 05/09/2022 9:15 AM Adenocarcinoma, Resul ts for this MECHANICAL SYSTEMS ENGINEER NOS of upper procedure are i n lobe, lung <Left> the result s section. MAGNESIUM LEVEL Routine 05/09/2022 9:15 AM Adenocarcinoma, Res ults for this MECHANICAL SYSTEMS ENGINEER NOS of upper procedure are i n lobe, lung <Left> the result s section. PHOSPHORUS LEVEL Routine 05/09/2022 9:15 AM Adenocarcinoma, Re sults for this MECHANICAL SYSTEMS ENGINEER NOS of upper procedure are i n lobe, lung <Left> the result s section. FREE THYROXINE Routine 05/09/2022 9:15 AM Adenocarcinoma, Resu lts for this MECHANICAL SYSTEMS ENGINEER NOS of upper procedure are i n lobe, lung <Left> the result s section. THYROID STIMULATING Routine 05/09/2022 9:15 AM Adenocarcinoma, Results for this HORMONE MECHANICAL SYSTEMS ENGINEER NOS of upper procedure are i n lobe, lung <Left> the result s section. COMPLETE BLOOD COUNT W/ Routine 05/09/2022 9:15 AM Adenocarcin muriel, DIFFERENTIAL MECHANICAL SYSTEMS ENGINEER NOS of upper lobe, lung <Left> COMPREHENSIVE METABOLIC Routine 05/09/2022 9:15 AM Adenocarcin muriel, PANEL MECHANICAL SYSTEMS ENGINEER NOS of upper lobe, lung <Left> FRACTIONATED [...] <Left> the result s section. CALCIUM LEVEL Routine 04/17/2022 8:15 AM Adenocarcinoma, Resul [...] lobe, lung <Left> the result s section. DIFFERENTIAL Routine 04/17/2022 8:15 AM Adenocarcinoma, Result s for this CDT NOS of upper procedure are i n lobe, lung <Left> the result s section. .CBC Routine 04/17/2022 8:15 AM Adenocarcinoma, Result s [...] CDT NOS of upper lobe, lung <Left> DIFFERENTIAL Routine 04/10/2022 10:38 Adenocarcinoma, Results for this AM CDT NOS of upper procedure are i n lobe, lung <Left> the result s section. .CBC Routine 04/10/2022 10:38 Adenocarcinoma, Results for this [...] <Left> the result s section. CALCIUM LEVEL Routine 04/10/2022 10:38 Adenocarcinoma, Results for [...] NOS of upper lobe, lung <Left> after 04/10/[address] Chest Abdomen Pelvis with Contrast (02/02/2023 12:42 PM CDT) Anatomical Region Laterality Modality Abdomen, Pelvis, Chest Computed Tomograp hy Specimen (Source) Anatomical Collection Method Collection Time Re ceived Time Location / / Volume Laterality 02/02/2023 1:49 PM CDT Impressions 02/02/2023 2:21 PM CDT 1. Stable appearance of the left upper lobectomy. No specific evidence of recurrent or metastatic disease in the chest, abdomen, or pelvis. 2. A 5 mm right lower lobe groundglass nodule is stable. The differential includes focal fibrosis and atypical adenomatous hyperplasia. ACTIONABLE ITEMS/RECOMMENDATIONS: None. Narrative 02/02/2023 2:21 PM CDT Examination: CT CHEST ABDOMEN PELVIS W CONTRAST on 02/02/2023 12:42 PM. 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 Indication: Lung cancer recurrence suspe cted. Comparison: CT abdomen/pelvis 01/19/[address] chest 11/02/2022 Technique: CT images of the chest, abdom en and pelvis with IV contrast CHEST FINDINGS: Lower Neck, Axillae, and Chest Wall: The re are no enlarged axillary or supraclavicular lymph nodes. Lungs: There has been a left upper lobec dede. There is a normal bronchial stump. Mild bronchial wall thickening is present. There is mild centrilobular emphysema. There is a new, small focus of groundgl ass opacity in the left lower lung which is likely infectious/inflammatory, but is not likely clinically significant (series 7, image 102). A 5 mm right lower lobe groundglass nodule is stable (/99). A few other, smaller pulmonary nodules ar e stable. There is a new, small focus of atelectasis in the medial right apex (image 17). Mediastinum: There are no enlarged media stinal or hilar lymph nodes. The heart size is normal. There is no pericardial effusion. The great vessels are normal in diameter. Pleura: Within normal limits ABDOMEN AND PELVIS FINDINGS: Hepatobiliary: Numerous low density lesi ons in the liver are stable. The gallbladder is present. Spleen: Within normal limits Pancreas: Within normal limits Adrenal Glands: Within normal limits Kidneys and bladder: Small bilateral albertina al cysts are present. The bladder is unremarkable. Gastrointestinal Tract: The small bowel is unremarkable. Contrast reaches the colon. There are diverticula in the rectosigmoid colon. Reproductive Organs: The uterus is prese nt. An oval mass in the uterine fundus measures 33 mm. This was not hypermetabolic on prior PET, and likely represents a fibroid. There is no adnexal mass. Peritoneum/Retroperitoneum: There is mariya cific atherosclerosis of the abdominal aorta. Lymph Nodes: There are no enlarged abdom inal or pelvic lymph nodes. MUSCULOSKELETAL FINDINGS: There is a stable sclerotic lesion in th e left sacrum. There is no suspicious osseous lesion. Mild degenerative changes are noted in the spine. Procedure Note Jonathan Tello MD - 02/02/2023Formattin g of this note might be different from the original. Examination: CT CHEST ABDOMEN PELVIS W C ONTRAST on 02/02/2023 12:42 PM. 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 Indication: Lung cancer recurrence suspe cted. Comparison: CT abdomen/pelvis 01/19/[address] chest 11/02/2022 Technique: CT images of the chest, abdom en and pelvis with IV contrast CHEST FINDINGS: Lower Neck, Axillae, and Chest Wall: The re are no enlarged axillary or supraclavicular lymph nodes. Lungs: There has been a left upper lobec dede. There is a normal bronchial stump. Mild bronchial wall thickening is present. There is mild centrilobular emphysema. There is a new, small focus of groundglass opacity in the left lower lung which is likely infectious/inflammatory, but is not likely clinically significant (series 7, image 102). A 5 mm right lower lobe groundglass nodule is stable (7/99). A few other, smaller pulmonary nodules are stable. There is a new, small focus of atelectasis in the medial right apex (image 17). Mediastinum: There are no enlarged media stinal or hilar lymph nodes. The heart size is normal. There is no pericardial effusion. The great vessels are normal in diameter. Pleura: Within normal limits ABDOMEN AND PELVIS FINDINGS: Hepatobiliary: Numerous low density lesi ons in the liver are stable. The gallbladder is present. Spleen: Within normal limits Pancreas: Within normal limits Adrenal Glands: Within normal limits Kidneys and bladder: Small bilateral albertina al cysts are present. The bladder is unremarkable. Gastrointestinal Tract: The small bowel is unremarkable. Contrast reaches the colon. There are diverticula in the rectosigmoid colon. Reproductive Organs: The uterus is prese nt. An oval mass in the uterine fundus measures 33 mm. This was not hypermetabolic on prior PET, and likely represents a fibroid. There is no adnexal mass. Peritoneum/Retroperitoneum: There is mariya cific atherosclerosis of the abdominal aorta. Lymph Nodes: There are no enlarged abdom inal or pelvic lymph nodes. MUSCULOSKELETAL FINDINGS: There is a stable sclerotic lesion in th e left sacrum. There is no suspicious osseous lesion. Mild degenerative changes are noted in the spine. IMPRESSION: 1. Stable appearance of the left upper l obectomy. No specific evidence of recurrent or metastatic disease in the chest, abdomen, or pelvis. 2. A 5 mm right lower lobe groundglass n odule is stable. The differential includes focal fibrosis and atypical adenomatous hyperplasia. ACTIONABLE ITEMS/RECOMMENDATIONS: None. Sofy INMAN IMG CT ORDERABLES (ABNORMAL) .Serum Creatinine (02/02/2023 10:17 AM CDT)Only the most recent of12 resultswithin the time period is included. athologist Signature Creatinine 1.23 (H) 0.51 - 0.95 THURMAN mg/dL Comment: Testing performed at [facility], [address] [place] [address], [place] [address] Specimen Anatomical Collection Method Collection Time Receive d Time (Source) Location / / Volume Laterality Blood 02/02/2023 10:17 02/02/2023 AM CDT 10:18 AM CDT Sofy INMAN LAB BLOOD ORDERABLES Performing Organization Address City/State/[place] [address], [facility] [address] (ABNORMAL) .CBC (02/02/2023 10:17 AM CDT)Only the most recent of12 resultswithin the time period is included. athologist Signature WBC 6.2 4.1 - 10.5 THURMAN K/uL Comment: All components of the CBC perfo rmed at [facility], [address] [place] [address], [place], [place] [address] RBC 3.75 (L) 3.99 - 5.46 M/uL THURMAN Comment: All components of the CBC perfo rmed at [facility], [address] [place] [address], [place] [address] Hgb 11.1 (L) 12.2 - 15.3 gm/dL THURMAN Comment: As part of CBC or as an individ ual orderable testing performed at [facility], [address] [place] [address], [place] [address] Hct 34.5 (L) 36.4 - 46.8 % THURMAN Comment: As part of CBC testing performe d at [facility], [address] [place] [address], [place] [address] MCV 92 82 - 99 fL THURMAN Comment: As part of CBC testing performe d at [facility], [address] [place] [address] MCH 29.6 26.6 - 33.2 pg THURMAN Comment: As part of CBC testing performe d at [facility], [address] [place] [address], [place] [address] MCHC 32.2 31.1 - 35.2 gm/dL THURMAN Comment: As part of CBC testing performe d at [facility], [address] [place] [address], [place] [address] RDW-SD 48.6 37.5 - 49.7 fL THURMAN Comment: As part of CBC testing performe d at [facility], [address] [place] [address] RDW-CV 14.2 11.6 - 15.5 % THURMAN Comment: As part of CBC testing performe d at [facility], [address] [place] [address], [place] [address] Platelet count 235 160 - 397 K/uL [facility] Comment: As part of CBC or an individual orderable testing performed at [facility], [address] [place] [address] MPV 8.3 (L) 9.1 - 12.6 fL THURMAN Comment: As part of CBC testing performe d at [facility], [address] [place] [address] Specimen Anatomical Collection Method Collection Time Receive d Time (Source) Location / / Volume Laterality Blood 02/02/2023 10:17 02/02/2023 AM CDT 10:18 AM CDT Sofy INMAN LAB BLOOD ORDERABLES Performing Organization Address City/State/[place] [address], [facility] [address] (ABNORMAL) Glomerular Filtration Rate (02/02/2023 10:17 AM CDT)Only the most recent of12 resultswithin the time period is included. athologist Signature eGFR 45 (L) >=60 THURMAN mL/min/1.73 sq. m Comment: The eGFRcr is [...] fulfill criteria for CKD. Testing performed at [facility], [address] [place] [address] Specimen Anatomical Collection Method Collection Time Receive d Time (Source) Location / / Volume Laterality Blood 02/02/2023 10:17 02/02/2023 AM CDT 10:18 AM CDT Sofy INMAN LAB BLOOD ORDERABLES Performing Organization Address City/State/[place] [address], [facility] [address] Fractionated Bilirubin (02/02/2023 10:17 AM CDT)Only the most recent of12 resultswithin the time period is included. athologist [facility] Bili Total 0.3 <=1.2 mg/dL THURMAN Comment: Indocyanine Green (ICG) may cause falsel y elevated bilirubin results. Total and direct bilirubin must not be measured from samples containing indocyanine green. False elevation of total bilirubin can b e seen in patients with IgG concentrations above 28 g/L. Testing performed at [facility] [place], [address] [place] [address] Bili Direct <0.2 <=0.3 mg/dL THURMAN Comment: Indocyanine Green (ICG) may cause falsel y elevated bilirubin results. Total and direct bilirubin must not be measured from samples containing indocyanine green. Testing performed at [facility] [place], [address] [place] [address] Bili Indirect See Note 0.0 - 0.9 mg/dL [facility] Y Comment: Unable to calculate Indirect Bilirubin r esult due to some parameters are outside reportable range Testing performed at [facility] [place], [address] [place] [address] Specimen Anatomical Collection Method Collection Time Receive d Time (Source) Location / / Volume Laterality Blood 02/02/2023 10:17 02/02/2023 AM CDT 10:18 AM CDT Sofy INMAN LAB BLOOD ORDERABLES Performing Organization Address City/State/[place] [address], [place] [address] (ABNORMAL) Differential (02/02/2023 10:17 AM CDT)Only the most recent of12 resultswithin the time period is included. [facility] Neutrophil % 60.9 43.2 - 72.7 THURMAN % Comment: All components of the Different ial performed at [facility], [address] [place] [address] Lymphocyte % 22.8 16.8 - 46.2 % THURMAN Comment: As part of the Differential calixto ting performed at [facility], [address] [place] [address], [place] [address] Monocyte % 8.7 5.1 - 12.5 % THURMAN Comment: As part of the Differential calixto ting performed at [facility], [address] [place] [address], [place] [address] Eosinophil % 6.8 (H) 0.4 - 6.3 % THURMAN Comment: As part of the Differential calixto ting performed at [facility], [address] [place] [address], [place] [address] Basophil % 0.6 0.2 - 1.4 % THURMAN Comment: As part of the Differential calixto ting performed at [facility], [address] [place] [address], [place] [address] IGRE % 0.2 0.1 - 1.5 % THURMAN Comment: IGRE % count includes Metamyelocytes, My elocytes, and Promyelocytes. As part of the Differential testing perf ormed at [facility], [address] [place] [address], [place] [address] Neutrophil Abs 3.77 1.95 - 7.25 K/uL [facility] Comment: As part of the Differential calixto ting performed at [facility], [address] [place] [address] Lymphocyte Abs 1.41 1.01 - 3.24 K/uL [facility] Comment: As part of the Differential calixto ting performed at [facility], [address] [place] [address], [place] [address] Monocyte Abs 0.54 0.24 - 0.85 K/uL [facility] Comment: As part of the Differential calixto ting performed at [facility], [address] [place] [address], [place] [address] Eosinophil Abs 0.42 0.02 - 0.50 K/uL [facility] Comment: As part of the Differential calixto ting performed at [facility], [address] [place] [address], [place] [address] Basophil Abs 0.04 0.02 - 0.09 K/uL [facility] Comment: As part of the Differential calixto ting performed at [facility], [address] [place] [address] IG Abs 0.01 0.01 - 0.12 K/uL THURMAN Comment: As part of the Differential calixto ting performed at [facility], [address] [place] [address] Specimen Anatomical Collection Method Collection Time Receive d Time (Source) Location / / Volume Laterality Blood 02/02/2023 10:17 02/02/2023 AM CDT 10:18 AM CDT Sofy E Annabel PA LAB BLOOD ORDERABLES Performing Organization Address City/[facility] Phon e Number [place], [place] [id number] [place] [address], [facility] [address] BUN (02/02/2023 10:17 AM CDT)Only the most recent of12 resultswithin the time period is included. P athologist Signature BUN 19 6 - 23 mg/dL THURMAN Comment: Testing performed at [facility] [facility], [address] [place] [address] Specimen Anatomical Collection Method Collection Time Receive d Time (Source) Location / / Volume Laterality Blood 02/02/2023 10:17 02/02/2023 AM CDT 10:18 AM CDT Sofy Ambrose PA LAB BLOOD ORDERABLES Performing Organization Address City/[facility] Phon e Number [place], [place] [phone] [place] [address] ALT (02/02/2023 10:17 AM CDT)Only the most recent of12 resultswithin the time period is included. P athologist Signature ALT 7 <=33 U/L THURMAN Comment: Testing performed at [facility], [address] [place] [address] Specimen Anatomical Collection Method Collection Time Receive d Time (Source) Location / / Volume Laterality Blood 02/02/2023 10:17 02/02/2023 AM CDT 10:18 AM CDT Sofy E Annabel PA LAB BLOOD ORDERABLES Performing Organization Address City/State/[place], [place] [address] [place] [address], [facility] [address] Aspartate Aminotransferase (02/02/2023 10:17 AM CDT)Only the most recent of12 resultswithin the time period is included. athologist Signature AST 20 <=32 U/L THURMAN Comment: Testing performed at [facility], [address] [place] [address] Specimen Anatomical Collection Method Collection Time Receive d Time (Source) Location / / Volume Laterality Blood 02/02/2023 10:17 02/02/2023 AM CDT 10:18 AM CDT Sofy E Annabel PA LAB BLOOD ORDERABLES Performing Organization Address City/[facility]/[place], [place] [address] [place] [address] TSH (02/02/2023 10:17 AM CDT)Only the most recent of5 resultswithin the time period is included. athologist Signature TSH 2.10 0.27 - 4.20 THURMAN mcunit/mL Comment: Testing performed at [facility], [address] [place] [address] Specimen Anatomical Collection Method Collection Time Receive d Time (Source) Location / / Volume Laterality Blood 02/02/2023 10:17 02/02/2023 AM CDT 10:18 AM CDT Sofy Ambrose PA LAB BLOOD ORDERABLES Performing Organization Address City/[facility]/[place], [place] [address] [place] [address] Free T4 (02/02/2023 10:17 AM CDT)Only the most recent of5 resultswithin the time period is included. athologist Signature T4 Free 1.03 0.93 - 1.70 THURMAN ng/dL Comment: Testing performed at [facility], [address] [place] [address] Specimen Anatomical Collection Method Collection Time Receive d Time (Source) Location / / Volume Laterality Blood 02/02/2023 10:17 02/02/2023 AM CDT 10:18 AM CDT Sofy E Annabel PA LAB BLOOD ORDERABLES Performing Organization Address City/[facility]/ZIP Code Phon e Number [place], [place] [address] [place] [address], [facility] [address] Total Protein (02/02/2023 10:17 AM CDT)Only the most recent of12 resultswithin the time period is included. P athologist Signature Total Protein 6.7 6.4 - 8.3 THURMAN g/dL Comment: Testing performed at [facility], [address] [place] [address] Specimen Anatomical Collection Method Collection Time Receive d Time (Source) Location / / Volume Laterality Blood 02/02/2023 10:17 02/02/2023 AM CDT 10:18 AM CDT Sofy Ambrose PA LAB BLOOD ORDERABLES Performing Organization Address City/[facility]/ZIP [facility] e Number [place], [place] [id number] [place] [address], [facility] [address] Phosphorus Level (02/02/2023 10:17 AM CDT)Only the most recent of6 resultswithin the time period is included. P athologist Signature Phosphorus 3.3 2.5 - 4.5 THURMAN mg/dL Comment: Testing performed at [facility], [address] [place] [address] Specimen Anatomical Collection Method Collection Time Receive d Time (Source) Location / / Volume Laterality Blood 02/02/2023 10:17 02/02/2023 AM CDT 10:18 AM CDT Sofy E Annabel PA LAB BLOOD ORDERABLES Performing Organization Address City/[facility]/ZIP [facility] Phon [place], [place] [address] [place] [address], [facility] [address] Alkaline Phosphatase (02/02/2023 10:17 AM CDT)Only the most recent of12 results within the time period is included. athologist Signature Alk Phos 90 35 - 104 U/L THURMAN Comment: Testing performed at [facility], [address] [place] [address] Specimen Anatomical Collection Method Collection Time Receive d Time (Source) Location / / Volume Laterality Blood 02/02/2023 10:17 02/02/2023 AM CDT 10:18 AM CDT Sofy Ambrose PA LAB BLOOD ORDERABLES Performing Organization Address City/[facility]/[address], [facility] [address] Magnesium Level (02/02/2023 10:17 AM CDT)Only the most recent of7 resultswithin the time period is included. athologist Signature Magnesium 2.0 1.6 - 2.6 THURMAN mg/dL Comment: Testing performed at [facility], [address] [place] [address] Specimen Anatomical Collection Method Collection Time Receive d Time (Source) Location / / Volume Laterality Blood 02/02/2023 10:17 02/02/2023 AM CDT 10:18 AM CDT Sofy Ambrose PA LAB BLOOD ORDERABLES Performing Organization Address City/[facility] e [address], [facility] [address] Glucose Level (02/02/2023 10:17 AM CDT)Only the most recent of10 resultswithin the time period is included. athologist Signature Glucose Level 94 70 - 99 THURMAN mg/dL Comment: Effective 01/12/16, the glucose reference intervals have been updated based on [place] [employer] guidelines (Standards of Medical Care in Diabetes 2016. Diabetes Care 2016; 39: S13-S22). Fasting blood glucose: Normal: 70-99 mg/dL Impaired fasting glucose (increased risk for diabetes or pre-diabetes): 100- 125 mg/dL Diabetes mellitus: >/=126 mg/dL Random blood glucose: Normal: 70-199 mg/dL Note: Random glucose >100 mg/dL is assoc iated with increased risk for diabetes Testing performed at [facility] [place], [address] [place] [address] Specimen Anatomical Collection Method Collection Time Receive d Time (Source) Location / / Volume Laterality Blood 02/02/2023 10:17 02/02/2023 AM CDT 10:18 AM CDT Sofy INMAN LAB BLOOD ORDERABLES Performing Organization Address City/[facility]/ZIP [facility] Phon e Number [place] [phone] Calcium Level (02/02/2023 10:17 AM CDT)Only the most recent of12 resultswithin the time period is included. P athologist Signature Calcium Lvl 9.7 8.4 - 10.2 THURMAN mg/dL Comment: Testing performed at [facility], [address] [place] [address] Specimen Anatomical Collection Method Collection Time Receive d Time (Source) Location / / Volume Laterality Blood 02/02/2023 10:17 02/02/2023 AM CDT 10:18 AM CDT Sofy INMAN LAB BLOOD ORDERABLES Performing Organization Address City/[facility]/ZIP Code Phon e Number [place], [place] [address] [place] [address] Albumin Level (02/02/2023 10:17 AM CDT)Only the most recent of12 resultswithin the time period is included. P athologist Signature Albumin Lvl 4.1 3.5 - 5.2 THURMAN gm/dL Comment: Testing performed at [facility], [address] [place] [address] Specimen Anatomical Collection Method Collection Time Receive d Time (Source) Location / / Volume Laterality Blood 02/02/2023 10:17 02/02/2023 AM CDT 10:18 AM CDT Sofy INMAN LAB BLOOD ORDERABLES Performing Organization Address City/[facility] Phon e Number [place], [place] [address] [place] [address] Electrolyte Panel (02/02/2023 10:17 AM CDT)Only the most recent of10 results within the time period is included. athologist Signature Sodium Lvl 139 136 - 145 THURMAN mEq/L Comment: Testing performed at [facility], [address] [place] [address] Potassium Lvl 4.7 3.5 - 5.1 mEq/L [facility] Comment: Testing performed at [facility], [address] [place] [address] Chloride 104 98 - 107 mEq/L THURMAN Comment: Testing performed at [facility], [address] [place] [address] CO2 27 22 - 29 mEq/L THURMAN Comment: Testing performed at [facility], [address] [place] [address] Anion Gap 8 4 - 14 mEq/L THURMAN Comment: Testing performed at [facility], [address] [place] [address] Specimen Anatomical Collection Method Collection Time Receive d Time (Source) Location / / Volume Laterality Blood 02/02/2023 10:17 02/02/2023 AM CDT 10:18 AM CDT Sofy INMAN LAB BLOOD ORDERABLES Performing Organization Address City/[facility]/[place] [address], [facility] [address] ABDOMEN AND PELVIS (01/19/2023 10:25 AM CDT)Only the most recent of2 resultswithin the time period is included. Anatomical Region Laterality Modality Abdomen, Pelvis Other Specimen (Source) Anatomical Collection Method Collection Time Re ceived Time Location / / Volume Laterality 01/29/2023 11:58 AM CDT Impressions 01/29/2023 12:[address] PM [address] Outside hospital CT ABDOMEN AND PELVIS d ated 01/19/2023. Inherently limited examination without I V contrast. No definite metastatic disease. ACTIONABLE ITEMS/RECOMMENDATIONS: None. Narrative 01/29/2023 12:12 PM CDT Examination: OSI CT ABDOMEN AND PELVIS, 01/19/2023 10:25 AM. Clinical History: Adenocarcinoma of uppe r lobe, lung. Indication: Further information needed f or treatment decisions. Comparison: PET CT 08/02/2022. Technique: OSI CT ABDOMEN AND PELVIS w as performed without IV contrast. Findings: Partially visualized mildly thickened di stal esophagus again noted. Low-density cardiac blood pool suggestin g anemia. No suspicious solid organ lesion. Low attenuation foci are unchanged in th e liver compatible with cysts, some of which are too small to characterize. The liver can be further evaluated with MRI, if indicated. The gallbladder is unremarkable. No biliary dilatation, hydronephrosis, a scites or bowel obstruction. Unremarkable appendix. No enlarging lymph nodes identified. No suspicious osseous lesion. Procedure Note Koby Soto MD - 01/29/2023Formatt ing of this note might be different from the original. Examination: OSI CT ABDOMEN AND PELVIS, 01/19/2023 10:25 AM. Clinical History: Adenocarcinoma of uppe r lobe, lung. Indication: Further information needed f or treatment decisions. Comparison: PET CT 08/02/2022. Technique: OSI CT ABDOMEN AND PELVIS was performed without IV contrast. Findings: Partially visualized mildly thickened di stal esophagus again noted. Low-density cardiac blood pool suggestin g anemia. No suspicious solid organ lesion. Low attenuation foci are unchanged in th e liver compatible with cysts, some of which are too small to characterize. The liver can be further evaluated with MRI, if indicated. The gallbladder is unremarkable. No biliary dilatation, hydronephrosis, a scites or bowel obstruction. Unremarkable appendix. No enlarging lymph nodes identified. No suspicious osseous lesion. IMPRESSION: Outside hospital CT ABDOMEN AND PELVIS d ated 01/19/2023. Inherently limited examination without I V contrast. No definite metastatic disease. ACTIONABLE ITEMS/RECOMMENDATIONS: None. oSfy [facility] OUTSIDE IMAGE ORDERABLES MRI Brain with and without Contrast (01/16/2023 9:16 AM CDT) Anatomical Region Laterality Modality Head Magnetic Resonance Specimen (Source) Anatomical Collection Method Collection Time Re ceived Time Location / / Volume Laterality 01/21/2023 12:28 PM CDT Impressions 01/21/2023 12:36 PM CDT 1. No evidence of intracranial metastasis. 2. 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 3. 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 ACTIONABLE ITEMS/RECOMMENDATIONS: None. Narrative 01/21/2023 12:36 PM CDT FULL RESULT: Examination: MRI BRAIN W WO CONTRAST on 01/16/2023 9:16 AM. 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 COMPARISON: MRI brain from 02/04/2022. TECHNIQUE: MRI of the brain without and with IV contrast was performed. FINDINGS: Intracranial: Stable 6 mm enhancing extra-axial lesion is again seen along the right anterior falx, most consistent with meningioma (series 18, image 72). There is no worrisome parenchymal or lep tomeningeal enhancement to suggest metastasis. There is persistent loss of flow void wi thin the right transverse sinus, concerning for thrombosis. Remainder of the venous sinuses demonstrate normal flow void. There is no acute hemorrhage or acute in farct. There is no mass effect or midline shift . Stable moderate chronic microvascular is chemic changes are again seen. 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 There is no sellar or suprasellar abnorm ality. Bone: There are no suspicious calvarial or sku ll base lesions. The mastoid air cells are clear. Extracranial: The orbits are unremarkable. There is persistent partial opacificatio n of the right maxillary sinus. Mild mucosal thickening is again seen in volving bilateral posterior ethmoid air cells. Procedure Note Henok Morales MD - 01/21/2023Form atting of this note might be different from the original. FULL RESULT: Examination: MRI BRAIN W WO CONTRAST on 01/16/2023 9:16 AM. 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 COMPARISON: MRI brain from 02/04/2022. TECHNIQUE: MRI of the brain without and with IV contrast was performed. FINDINGS: Intracranial: Stable 6 mm enhancing extra-axial lesion is again seen along the right anterior falx, most consistent with meningioma (series 18, image 72). There is no worrisome parenchymal or lep tomeningeal enhancement to suggest metastasis. There is persistent loss of flow void wi thin the right transverse sinus, concerning for thrombosis. Remainder of the venous sinuses demonstrate normal flow void. There is no acute hemorrhage or acute in farct. There is no mass effect or midline shift . Stable moderate chronic microvascular is chemic changes are again seen. 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 There is no sellar or suprasellar abnorm ality. Bone: There are no suspicious calvarial or sku ll base lesions. The mastoid air cells are clear. Extracranial: The orbits are unremarkable. There is persistent partial opacificatio n of the right maxillary sinus. Mild mucosal thickening is again seen in volving bilateral posterior ethmoid air cells. IMPRESSION: 1. No evidence of intracranial metastasi s. 2. Stable presumed right anterior parafa lcine meningioma. 3. 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 ACTIONABLE ITEMS/RECOMMENDATIONS: None. Mona Reid APRN IMG MRI ORDERABLES CT Chest with Contrast (11/02/2022 10:11 AM [...] pulmonary nodules are stable. Josephine Modi APRN [facility] [place] ORDERABLES Research Protocol [id number] (09/12/2022 9:10 AM CDT) athologist Signature Research Prot [id number] [facility] [place] Specimen Anatomical Collection Method Collection Time Receive d Time (Source) Location / / Volume Laterality Blood 09/12/2022 9:10 AM 3 9:38 CDT AM CDT Narrative [facility] - 3 3:28 PM CDT Link with existing labwork already sched uled. Sofy INMAN RESEARCH LAB Z CODES Performing Organization Address City/State/ZIP Code Phon e Number [facility] Unless otherwise noted, [place] [address] CENTER all lab tests performed by: Division of Pathology and Laboratory Medicine [id number] (ABNORMAL) GGT (08/21/2022 10:43 AM MECHANICAL SYSTEMS ENGINEER)Only the most recent of4 resultswithin the time period is included. P athologist Signature GGT 119 (H) 5 - 36 U/L THURMAN Comment: [facility], [address] [place] [address] Specimen Anatomical Collection Method Collection Time Receive d Time (Source) Location / / Volume Laterality Blood 08/21/2022 10:43 08/21/2022 AM MECHANICAL SYSTEMS ENGINEER 10:43 AM MECHANICAL SYSTEMS ENGINEER Narrative [facility] - 08/21/2022 11:22 AM MECHANICAL SYSTEMS ENGINEER [place] Sof[place] INMAN LAB BLOOD ORDERABLES Performing Organization Address City/[facility]/ZIP Code Phon e Number [address], [place] (ABNORMAL) EBV Quant PCR, Plasma (08/07/2022 9:30 AM MECHANICAL SYSTEMS ENGINEER) Analysis Performed At Patho logist Time [facility] EBV Quant PCR <35.0 (H) <=0.0 [facility] IU/[facility] Comment: Normal Range: Target Not Detected. Results [...] human plasma is performed using the MARCUS 6800 System. Amplification of viral DNA is achieved [...] verified by the microbiology laboratory at the [facility]. Results must be interpreted within th e context of all relevant clinical and l aboratory findings. Specimen Anatomical Collection Method Collection Time Receive d Time (Source) Location / / Volume Laterality Blood 08/07/2022 9:30 AM 3 4:20 MECHANICAL SYSTEMS ENGINEER PM MECHANICAL SYSTEMS ENGINEER Narrative [facility] - 3 12:42 PM MECHANICAL SYSTEMS ENGINEER [place] Sof[place] INMAN MICROBIOLOGY - GENERAL ORDER FLOR Performing Organization Address City/State/ZIP Code Phon e Number [facility] Unless otherwise noted, [place] [address] [place] all lab tests performed by: Division of Pathology and Laboratory Medicine [address] [place] [address] [place] Hepatitis E Virus by Quant PCR [place] (08/07/2022 9:30 AM MECHANICAL SYSTEMS ENGINEER) [facility] Method Time Signature Hepatitis E <3.3 [...] and its performa nce characteristics determined by [facility]. It has not been cleared or approved by the US Food and Drug Adminis tration. This test was performed in a CLIA certified laboratory and is intended for clinical purposes. Performed By: [facility] EV Connect [address] [place] [address] Carding Machine Feeder: Nhan Wadsworth MD, PHD Hepatitis E Quant by PCR, IU/mL <1,800 IU/mL [facility] Hepatitis E Quant by PCR, Source Serum [facility] Specimen Anatomical Collection Method Collection Time Receive d Time (Source) Location / / Volume Laterality Blood 08/07/2022 9:30 AM 3 9:33 MECHANICAL SYSTEMS ENGINEER AM MECHANICAL SYSTEMS ENGINEER Narrative [facility] - 08/13/2022 2:19 PM MECHANICAL SYSTEMS ENGINEER [place] Sof[place] INMAN LAB BLOOD ORDERABLES Performing Organization Address City/[facility] Phon e Number [address] [address] Antinuclear Antibody (JILLIAN) HEp-2 Substrate, IgG (08/07/2022 9:30 AM MECHANICAL SYSTEMS ENGINEER) [facility] Method Time Signature JILLIAN HEp-2 See Footnote <1:80 [facility] ([facility] Comment: RESULT: <1:80 (Negative) ADDITIONAL INFORMATIO N Method: Immunofluorescence using HEp-2 c ellular substrate. Test Performed by: [facility] [address] [place] [address] 33 Plumber Pipe Fitting: Kushal Cannon M.D. Ph. D.; CLIA# [id number] Specimen Anatomical Collection Method Collection Time Receive d Time (Source) Location / / Volume Laterality Blood 08/07/2022 9:30 AM 3 9:33 MECHANICAL SYSTEMS ENGINEER AM MECHANICAL SYSTEMS ENGINEER Narrative [facility] - 3 7:[address] [facility] Sofy INMAN LAB BLOOD ORDERABLES Performing Organization Address City/[facility] Phon e Number [facility] Unless otherwise noted, [place] [address] [place] all lab tests performed by: Division of Pathology and Laboratory Medicine [address] [place], [place] [address]d Hepatitis A Antibody IgG (08/07/2022 9:30 AM MECHANICAL SYSTEMS ENGINEER) P athologist Signature Hepatitis A Negative [facility] Comment: Result indicates no past exposure or imm unity to hepatitis A infection. REFERENCE VALUE------ Unvaccinated: Negative Vaccinated: Positive Test Performed by: [facility] [address] [address] 90 Plumber Pipe Fitting: Kushal Cannon M.D. Ph. D.; CLIA# [id number] Specimen Anatomical Collection Method Collection Time Receive d Time (Source) Location / / Volume Laterality Blood 08/07/2022 9:30 AM 3 9:33 MECHANICAL SYSTEMS ENGINEER AM MECHANICAL SYSTEMS ENGINEER Narrative [facility] - 3 11:08 AM MECHANICAL SYSTEMS ENGINEER [place] Sofy INMAN LAB BLOOD ORDERABLES Performing Organization Address City/State/ZIP Code Phon e Number [facility] Unless otherwise noted, [place] [address] [place] all lab tests performed by: Division of Pathology and Laboratory Medicine [facility] HIV-1/2 Antigen and Antibodies, Fourth Generation (08/07/2022 9:30 AM MECHANICAL SYSTEMS ENGINEER) Analysis Performed At Patho logist Time Signature HIV Ag/Ab, 4TH NON-REACTI [...] purpose. For additional information please refer to http://education.LOOKK.Scoop.it/fa q/LUC091 (This link is being provided for informa tional/ educational purposes only.) The performance of this assay has not be en clinically validated in patients less than 2 years old. Lab test performed by: Lab Mnemonic: [facility] [address] [id number] MELISSA JOSHI MD Specimen Anatomical Collection Method Collection Time Receive d Time (Source) Location / / Volume Laterality Blood 08/07/2022 9:30 AM 3 3:29 MECHANICAL SYSTEMS ENGINEER PM MECHANICAL SYSTEMS ENGINEER Narrative [facility] - 08/07/2022 10:33 PM MECHANICAL SYSTEMS ENGINEER [place] Sofy INMAN LAB BLOOD ORDERABLES Performing Organization Address City/[facility] Phon e Number [facility] Hepatitis C Virus RNA Detect/Quant (08/07/2022 9:30 AM MECHANICAL SYSTEMS ENGINEER) [facility] Method Time Signature HepC RNA PCR Undetected Undetected [place] [facility] IU/mL [facility] Comment: Result in log IU/mL is Undetected. ADDITIONAL INFORMATIO N The quantification range of this assay i s 15 to 100,000,000 IU/mL (1.18 log to 8.00 log IU/mL). Test ing was performed using the marcus HCV test ([employer] with the marcus 6800 System. Test Performed by: [place] [address] Plumber Pipe Fitting: Kushal Cannon M.D. Ph. D.; CLIA# [id number] Specimen Anatomical Collection Method Collection Time Receive d Time (Source) Location / / Volume Laterality Blood 08/07/2022 9:30 AM 3 9:33 MECHANICAL SYSTEMS ENGINEER AM MECHANICAL SYSTEMS ENGINEER Narrative [facility] - 3 3:15 PM MECHANICAL SYSTEMS ENGINEER [place] Sof[place] INMAN LAB BLOOD ORDERABLES Performing Organization Address City/[facility] Phon e Number [facility] Unless otherwise noted, [place] [address] [place] all lab tests performed by: Division of Pathology and Laboratory Medicine [facility] Eveline Bautista HBV DNA Quant (08/07/2022 9:30 AM MECHANICAL SYSTEMS ENGINEER) [facility] Method Time Signature HBV DNA Undetected Undetected ALISON HO Qnt-Cano IU/mL [facility] Comment: Result in log IU/mL is Undetected. ADDITIONAL INFORMATIO N The quantification range of this assay i s 10 to 1,000,000,000 IU/mL (1.00 log to 9.00 lo g IU/mL). Testing was performed using the marcus HBV test ( [employer] with the marcus Zoopla0 Syste m. Test Performed by: [facility] [address] [place] [address] Plumber Pipe Fitting: Kushal Cannon M.D. Ph. D.; CLIA# [id number] Specimen Anatomical Collection Method Collection Time Receive d Time (Source) Location / / Volume Laterality Blood 08/07/2022 9:30 AM 3 9:33 MECHANICAL SYSTEMS ENGINEER AM MECHANICAL SYSTEMS ENGINEER Narrative [facility] - 3 2:46 PM MECHANICAL SYSTEMS ENGINEER [place] Sof[place] INMAN LAB BLOOD ORDERABLES Performing Organization Address City/State/ZIP Code Phon e Number [facility] Unless otherwise noted, [place], [place] [id number] [place] [address] all lab tests performed by: Division of Pathology and Laboratory Medicine [address] [place] [address] CMV Quant PCR (08/07/2022 9:30 AM MECHANICAL SYSTEMS ENGINEER) [facility] Method Time Signature CMV DNA PCR Target Not Target Not ALISON HO Detected Detected IAM IU/mL [facility] Comment: Normal Range: Target Not Detected. [...] human plasma is performed using the MARCUS 6800 System. Amplification of viral DNA is achieved [...] verified by the microbiology laboratory at the [facility]. Results must be interpreted within th e context of all relevant clinical and l aboratory findings. Specimen Anatomical Collection Method Collection Time Receive d Time (Source) Location / / Volume Laterality Blood 08/07/2022 9:30 AM 3 4:20 MECHANICAL SYSTEMS ENGINEER PM MECHANICAL SYSTEMS ENGINEER Narrative [facility] - 3 4:58 PM MECHANICAL SYSTEMS ENGINEER [place] Sof[place] INMAN MICROBIOLOGY - GENERAL ORDER FLOR Performing Organization Address City/[facility] Phon e Number [facility] Unless otherwise noted, [address] all lab tests performed by: Division of Pathology and Laboratory Medicine [address] [place] [address] Hepatitis C Virus Ab (08/07/2022 9:30 AM MECHANICAL SYSTEMS ENGINEER) [facility] Method Time Signature HCVAb. Non Reactive Non Reactive [facility] Comment: Antibody detection in the immunocompromi sed and immunosuppressed population may be delayed or absent entirely. Therefore serial testing, correlation with other clinical findings, and supplemental testin g (if available) should be taken into co nsideration when interpreting the results. Specimen Anatomical Collection Method Collection Time Receive d Time (Source) Location / / Volume Laterality Blood 08/07/2022 9:30 AM 3 7:56 MECHANICAL SYSTEMS ENGINEER AM MECHANICAL SYSTEMS ENGINEER Narrative [facility] - 3 9:42 AM MECHANICAL SYSTEMS ENGINEER [place] Sof[place] INMAN LAB BLOOD ORDERABLES Performing Organization Address [facility] Phon e Number [facility] Unless otherwise noted, [address] all lab tests performed by: Division of Pathology and Laboratory Medicine [address] [place] [address] Hepatitis B Total Ig Core Ab (SCREENING) (anti-HBc total Ig; HBcAb total Ig) (08/07/2022 9:30 AM MECHANICAL SYSTEMS ENGINEER)Only the most recent of2 resultswithin the time period is included. [facility] Method Time Signature HBcAb. Non Reactive Non Reactive [facility] Specimen Anatomical Collection Method Collection Time Receive d Time (Source) Location / / Volume Laterality Blood 08/07/2022 9:30 AM 3 7:56 MECHANICAL SYSTEMS ENGINEER AM MECHANICAL SYSTEMS ENGINEER [place] INMAN LAB BLOOD ORDERABLES Performing Organization Address City/State/ZIP Code Phon e Number [facility] Unless otherwise noted, [place] [address] CENTER all lab tests performed by: Division of Pathology and Laboratory Medicine [address] [place] CMV Ab IgG+IgM Path Review (08/07/2022 9:30 AM MECHANICAL SYSTEMS ENGINEER) Component Value Ref Test Analysis Performed At [facility] Range Method Time Signature CMV Panel [place] Positive IgG with low IgM chester ggests previous infection. IVIG can give false positivity. [facility] High titers of IgG can give false negative IgM. Theref ore, active disease is IAM possible but less likely with this pattern. CANCER Reviewed and Electronically signed by Pathologist: CENTER RICKEY SANTANA MD #[id number] Comment: Test performed by an immunoassay intende d for the qualitative detection of IgG and IgM antibodies to Cytomegalovirus (CMV) in human serum. When equivocal results are obtained, ano ther specimen should be collected 10-14 days later. MD Enrique CALABRESE [id number] Dictated by: MD Enrique CALABRESE [id number] Dictated Date/Time: 08.09.2022 13:45 PM MECHANICAL SYSTEMS ENGINEER Transcribed Date/Time: 08.09.2022 13:45 PM MECHANICAL SYSTEMS ENGINEER Electronically [place]igned [place]: [place] [id number] on 08.09.2022 13:45 PM Specimen Anatomical Collection Method Collection Time Receive d Time (Source) Location / / Volume Laterality Blood 08/07/2022 9:30 AM 3 4:27 MECHANICAL SYSTEMS ENGINEER PM MECHANICAL SYSTEMS ENGINEER Sof[place] INMAN MICROBIOLOGY - GENERAL ORDER FLOR Performing Organization Address City/State/ZIP Code Phon e Number [facility] Unless otherwise noted, [place] [address] CENTER all lab tests performed by: Division of Pathology and Laboratory Medicine [address] [place] HSV 1+2 Quant, Plasma (08/07/2022 9:30 AM MECHANICAL SYSTEMS ENGINEER) [facility] Method Time Signature HSV1 Not Detected Not Detected [facility] Plasma-Viraco copies/mL [facility] HSV2 Not Detected Not Detected [facility] Plasma-Viraco copies/mL [facility] Comment: Assay Range for HSV 1 is [...] and its performa nce characteristics determined by [employer]. It has n ot been cleared or approved by the U.S. Food and Drug Administration . Results should be used in conjunction with clinical findings, and should not form the sole basis for a diagnosis or treatment decis ion. Performed At: [facility] [address] [place] [address] Carding Machine Feeder: Haider Leon Ph.D., B CLD (ABB) CLIA#: [id number] Phone: Specimen Anatomical Collection Method Collection Time Receive d Time (Source) Location / / Volume Laterality Blood 08/07/2022 9:30 AM 3 MECHANICAL SYSTEMS ENGINEER 11:31 AM MECHANICAL SYSTEMS ENGINEER Narrative [facility] - 3 10:25 AM MECHANICAL SYSTEMS ENGINEER [place] Sof[place] INMAN MICROBIOLOGY - GENERAL ORDER FLOR Performing Organization Address City/[facility]/ZIP Code Phon e Number [facility] Unless otherwise noted, [address] all lab tests performed by: Division of Pathology and Laboratory Medicine Nicole Bautista Joel Sandoval Virus Panel Path Review (08/07/2022 9:30 AM MECHANICAL SYSTEMS ENGINEER) Component Value Ref Test Analysis Performed At [facility] Range Method Time Signature EBV Panel NH EBV serology most compatible with past infection. Interpret with caution if the [facility] patient is receiving IVIG. AND ERSON Reviewed and Electronically signed by Pathologist: CANCER RIKCEY SANTANA MD #[id number] [facility] Comment: Test performed by immunoassay intended f or the qualitative detection of IgG and IgM antibodies to the viral capsid antigen (VCA) of the Joel-Sandoval virus (EBV) and IgG antibodies to the EBV nuclear antigen (EBNA). When equivocal results are obtained, ano ther specimen should be collected 10-14 days later. RICKEY SANTANA MD - [id number] Dictated by: RICKEY SANTANA MD - [id number] Dictated Date/Time: 08.09.2022 13:45 PM MECHANICAL SYSTEMS ENGINEER Transcribed Date/Time: 08.09.2022 13:45 PM MECHANICAL SYSTEMS ENGINEER Electronically Signed By: RICKEY OWENS MD - [id number] on 08.09.2022 13:45 PM Specimen Anatomical Collection Method Collection Time Receive d Time (Source) Location / / Volume Laterality Blood 08/07/2022 9:30 AM 4:27 MECHANICAL SYSTEMS ENGINEER PM MECHANICAL SYSTEMS ENGINEER [place] INMAN MICROBIOLOGY - GENERAL ORDER FLOR Performing Organization Address City/[facility]/ZIP Code Phon e Number [facility] Unless otherwise noted, [address] all lab tests performed by: Division of Pathology and Laboratory Medicine Nicole Bautista (ABNORMAL) CMV Ab IgG+IgM (08/07/2022 9:30 AM MECHANICAL SYSTEMS ENGINEER) [facility] Method Time Signature CMV IgM Int Negative Negative [facility] CMV IgG Int Positive (A) Negative [facility] Specimen Anatomical Collection Method Collection Time Receive d Time (Source) Location / / Volume Laterality Blood 08/07/2022 9:30 AM 3 4:27 MECHANICAL SYSTEMS ENGINEER PM MECHANICAL SYSTEMS ENGINEER Narrative [facility] - 3 12:39 PM MECHANICAL SYSTEMS ENGINEER [place] Sof[place] INMAN MICROBIOLOGY - GENERAL ORDER FLOR Performing Organization Address City/[facility] Phon e Number [facility] Unless otherwise noted, [address] all lab tests performed by: Division of Pathology and Laboratory Medicine [address] [place] [address] Tissue Transglutaminase Ab IgA, IgG (08/07/2022 9:30 AM MECHANICAL SYSTEMS ENGINEER) P athologist Signature TTG IgA-[place] <1.2 <4.0 [facility] (Negative) [facility] CENTER unit/mL TTG IgG-[place] <1.2 <6.0 [facility] (Negative) [facility] CENTER unit/mL Comment: Test Performed by: [facility] [employer] [address] [place] [address] Plumber Pipe Fitting: Kushal Cannon M.D. Ph. D.; CLIA# [id number] Specimen Anatomical Collection Method Collection Time Receive d Time (Source) Location / / Volume Laterality Blood 08/07/2022 9:30 AM 3 9:33 MECHANICAL SYSTEMS ENGINEER AM MECHANICAL SYSTEMS ENGINEER Narrative [facility] - 3 6:30 PM MECHANICAL SYSTEMS ENGINEER [place] Sofy INMAN LAB BLOOD ORDERABLES Performing Organization Address City/[facility] Phon e Number [facility] Unless otherwise noted, [address] all lab tests performed by: Division of Pathology and Laboratory Medicine [address] [place], [place] [address] Liver/Kidney Microsome Type 1 Ab (08/07/2022 9:30 AM MECHANICAL SYSTEMS ENGINEER) P athologist Signature Juanita/Kid Micro <5.0 <=20.0 [facility] 1-[place] (Negative) CANCER CENTER Units Comment: Test Performed by: [facility] [address] [place] [address] 40 Plumber Pipe Fitting: Kushal Cannon M.D. Ph. D.; CLIA# [id number] Specimen Anatomical Collection Method Collection Time Receive d Time (Source) Location / / Volume Laterality Blood 08/07/2022 9:30 AM 3 9:33 MECHANICAL SYSTEMS ENGINEER AM MECHANICAL SYSTEMS ENGINEER Narrative [facility] - 3 7:00 PM MECHANICAL SYSTEMS ENGINEER [place] Sofy INMAN LAB BLOOD ORDERABLES Performing Organization Address City/[facility]/ZIP [facility] Phon e Number [facility] Unless otherwise noted, [address] all lab tests performed by: Division of Pathology and Laboratory Medicine [address] [place] [address] [place] Hepatitis E IgM Ab (08/07/2022 9:30 AM MECHANICAL SYSTEMS ENGINEER) athologist Signature HEV IgM Ab Negative Negative [place] [facility] Comment: If clinical suspicion persists, submit n ew specimen for retesting in 1 to 2 weeks. ADDITIONAL INFORMATIO N This test was developed and its performa nce characteristics determined by [facility] in a manner co nsistent with CLIA requirements. This test has not been lani ared or approved by the U.S. Food and Drug Administration. Test Performed by: [place] [address] Plumber Pipe Fitting: Kushal Cannon M.D. Ph. D.; CLIA# [id number] Specimen Anatomical Collection Method Collection Time Receive d Time (Source) Location / / Volume Laterality Blood 08/07/2022 9:30 AM 3 9:33 MECHANICAL SYSTEMS ENGINEER AM MECHANICAL SYSTEMS ENGINEER Narrative [facility] - 3 1:42 PM MECHANICAL SYSTEMS ENGINEER [place] Sof[place] INMAN LAB BLOOD ORDERABLES Performing Organization Address City/[facility]/ZIP [facility] Phon e Number [facility] Unless otherwise noted, [address] all lab tests performed by: Division of Pathology and Laboratory Medicine [address] [place] [address] [place] Hepatitis E IgG Ab (08/07/2022 9:30 AM MECHANICAL SYSTEMS ENGINEER) P athologist Signature HEV IgG Negative Negative [facility] Comment: ADDITIONAL INFORMATIO N This test was developed and its performa nce characteristics determined by [facility] in a manner co nsistent with CLIA requirements. This test has not been lani ared or approved by the U.S. Food and Drug Administration. Test Performed by: [facility] [address] [place] [address] Plumber Pipe Fitting: Kushal Cannon M.D. Ph. D.; CLIA# [id number] Specimen Anatomical Collection Method Collection Time Receive d Time (Source) Location / / Volume Laterality Blood 08/07/2022 9:30 AM 3 9:33 MECHANICAL SYSTEMS ENGINEER AM MECHANICAL SYSTEMS ENGINEER Narrative [facility] - 3 3:51 PM MECHANICAL SYSTEMS ENGINEER [place] Sofy INMAN LAB BLOOD ORDERABLES Performing Organization Address City/[facility] Phon e Number [facility] Unless otherwise noted, [address] all lab tests performed by: Division of Pathology and Laboratory Medicine Nicole Bautista (ABNORMAL) EBV Antibody Panel (08/07/2022 9:30 AM MECHANICAL SYSTEMS ENGINEER) [facility] VCA-M Int Negative Negative [facility] VCA-G Int Positive (A) Negative [facility] EBNA Int Positive (A) Negative [facility] Specimen Anatomical Collection Method Collection Time Receive d Time (Source) Location / / Volume Laterality Blood 08/07/2022 9:30 AM 3 4:27 MECHANICAL SYSTEMS ENGINEER PM MECHANICAL SYSTEMS ENGINEER Narrative [facility] - 3 12:37 PM MECHANICAL SYSTEMS ENGINEER [place] Sof[place] INMAN MICROBIOLOGY - GENERAL ORDER FLOR Performing Organization Address City/[facility] Phon e Number [facility] Unless otherwise noted, [address] all lab tests performed by: Division of Pathology and Laboratory Medicine Nicole Bautista Alpha 1 Antritrypsin (08/07/2022 9:30 AM MECHANICAL SYSTEMS ENGINEER) [facility] A-1-AT[facility] [place] [place] 179 100 - 190 [facility] mg/dL [facility] CENTER Comment: Test Performed by: [facility] [address] [place] [address] 319 Plumber Pipe Fitting: Kushal Cannon M.D. Ph. D.; CLIA# [id number] Specimen Anatomical Collection Method Collection Time Receive d Time (Source) Location / / Volume Laterality Blood 08/07/2022 9:30 AM 3 9:33 MECHANICAL SYSTEMS ENGINEER AM MECHANICAL SYSTEMS ENGINEER Narrative [facility] - 3 9:58 AM MECHANICAL SYSTEMS ENGINEER [place] Sofy INMAN LAB BLOOD ORDERABLES Performing Organization Address [facility] Phon e Number [facility] Unless otherwise noted, [address] all lab tests performed by: Division of Pathology and Laboratory Medicine Nicole Bautista Hep A IgM Ab (08/07/2022 9:30 AM MECHANICAL SYSTEMS ENGINEER) [facility] Hep A IgM-[place] Negative Negative [facility] Comment: Result does not exclude the possibility of exposure to hepatitis A virus. Antibody level duri ng early infection stage may be below the limit of detectio n of the assay. Test Performed by: [facility] - [place] [id number] Plumber Pipe Fitting: Kushal Cannon M.D. Ph. D.; CLIA# [id number] Specimen Anatomical Collection Method Collection Time Receive d Time (Source) Location / / Volume Laterality Blood 08/07/2022 9:30 AM 3 9:33 MECHANICAL SYSTEMS ENGINEER AM MECHANICAL SYSTEMS ENGINEER Narrative [facility] - 3 11:08 AM MECHANICAL SYSTEMS ENGINEER [place] Sofy INMAN LAB BLOOD ORDERABLES Performing Organization Address [facility] Phon e Number [facility] Unless otherwise noted, [address] all lab tests performed by: Division of Pathology and Laboratory Medicine Nicole Bautista Mitochondrial Ab M2 (08/07/2022 9:30 AM MECHANICAL SYSTEMS ENGINEER) athologist [facility] AMA Ab <0.1 <0.1 [facility] Screen-[place] (Negative) [facility] CENTER Units Comment: Test Performed by: [facility] [place] [id number] Plumber Pipe Fitting: Kushal Cannon M.D. Ph. D.; CLIA# [id number] Specimen Anatomical Collection Method Collection Time Receive d Time (Source) Location / / Volume Laterality Blood 08/07/2022 9:30 AM 3 9:33 MECHANICAL SYSTEMS ENGINEER AM MECHANICAL SYSTEMS ENGINEER Narrative [facility] - 3 4:34 PM MECHANICAL SYSTEMS ENGINEER [place] Sofy INMAN LAB BLOOD ORDERABLES Performing Organization Address [facility] Phon e Number [facility] Unless otherwise noted, [address] all lab tests performed by: Division of Pathology and Laboratory Medicine [address] [place] [address] [place] Ceruloplasmin Level (08/07/2022 9:30 AM MECHANICAL SYSTEMS ENGINEER) athologist [facility] Ceruloplasmin-M 30.9 20.0 - [facility] guy 51.0 mg/dL CANCER CENTER Comment: Test Performed by: [facility] - [facility] [address] [place] [address] Plumber Pipe Fitting: Kushal Cannon M.D. Ph. D.; CLIA# [id number] Specimen Anatomical Collection Method Collection Time Receive d Time (Source) Location / / Volume Laterality Blood 08/07/2022 9:30 AM 3 9:33 MECHANICAL SYSTEMS ENGINEER AM MECHANICAL SYSTEMS ENGINEER Narrative [facility] - 3 12:51 PM MECHANICAL SYSTEMS ENGINEER [place] Sofy INMAN LAB BLOOD ORDERABLES Performing Organization Address [facility] Phon e Number [facility] Unless otherwise noted, [address] all lab tests performed by: Division of Pathology and Laboratory Medicine [address] [place] [address] [place] Hepatitis B IgM Core Ab (CONFIRM ACUTE INFECTION ONLY) (anti-HBc IgM; HBcAb IgM) (08/07/2022 9:30 AMCST) athologist [facility] Hep B Core Negative Negative [facility] Comment: Test Performed by: [facility] - [facility] [address] [place], [place] [address] Plumber Pipe Fitting: Kushal Cannon M.D. Ph. D.; CLIA# [id number] Specimen Anatomical Collection Method Collection Time Receive d Time (Source) Location / / Volume Laterality Blood 08/07/2022 9:30 AM 3 9:33 MECHANICAL SYSTEMS ENGINEER AM MECHANICAL SYSTEMS ENGINEER Narrative [facility] - 3 9:55 AM MECHANICAL SYSTEMS ENGINEER [place] Sofy INMAN LAB BLOOD ORDERABLES Performing Organization Address City/[facility]/ZIP [facility] Phon e Number [facility] Unless otherwise noted, [address] all lab tests performed by: Division of Pathology and Laboratory Medicine [facility] Eveline Bautista Smooth Muscle Ab (08/07/2022 9:30 AM MECHANICAL SYSTEMS ENGINEER) P athologist Signature SMA Negative Negative [facility] Comment: Negative: No further testing will be per formed ADDITIONAL INFORMATIO N This test was developed and its performa nce characteristics determined by [facility] in a manner co nsistent with CLIA requirements. This test has not been lani ared or approved by the U.S. Food and Drug Administration. Test Performed by: [place] [address] Plumber Pipe Fitting: Kushal Cannon M.D. Ph. D.; CLIA# [id number] Specimen Anatomical Collection Method Collection Time Receive d Time (Source) Location / / Volume Laterality Blood 08/07/2022 9:30 AM 3 9:33 MECHANICAL SYSTEMS ENGINEER AM MECHANICAL SYSTEMS ENGINEER Narrative [facility] - 3 2:35 PM MECHANICAL SYSTEMS ENGINEER [place] Sofy INMAN LAB BLOOD ORDERABLES Performing Organization Address City/[facility] Phon e Number [facility] Unless otherwise noted, [address] all lab tests performed by: [facility] Hepatitis B Surface Antibody (08/07/2022 9:30 AM MECHANICAL SYSTEMS ENGINEER) Patholo gist Method Time Signature HBs Ab Non Reactive Non Reactive [facility] Specimen Anatomical Collection Method Collection Time Receive d Time (Source) Location / / Volume Laterality Blood 08/07/2022 9:30 AM 3 7:56 MECHANICAL SYSTEMS ENGINEER AM MECHANICAL SYSTEMS ENGINEER [facility] - 3 9:41 AM MECHANICAL SYSTEMS ENGINEER [place] Sofy INMAN LAB BLOOD ORDERABLES Performing Organization Address City/[facility]/ZIP Code Phon e Number [facility] Unless otherwise noted, [address] all lab tests performed by: Division of Pathology and Laboratory Medicine [address] [place] [address] Hepatitis B Surface Ag (08/07/2022 9:30 AM MECHANICAL SYSTEMS ENGINEER) [facility] Method Time Signature HBsAg. Non Reactive Non Reactive [facility] Specimen Anatomical Collection Method Collection Time Receive d Time (Source) Location / / Volume Laterality Blood 08/07/2022 9:30 AM 3 7:56 MECHANICAL SYSTEMS ENGINEER AM MECHANICAL SYSTEMS ENGINEER [facility] - 3 9:41 AM MECHANICAL SYSTEMS ENGINEER [place] Sofy INMAN LAB BLOOD ORDERABLES Performing Organization Address City/[facility] Code Phon e Number [facility] Unless otherwise noted, [address] all lab tests performed by: Division of Pathology and Laboratory Medicine [address] [place] [address] (ABNORMAL) Prothrombin Time with INR (08/07/2022 9:30 AM MECHANICAL SYSTEMS ENGINEER)Only the most recent of2 resultswithin the time period is included. P athologist Signature PT 14.3 (H) 11.9 - 14.1 [place] second(s) Comment: Testing performed at [facility], [address] [place] [address] INR 1.12 (H) 0.89 - 1.10 [place] Comment: Testing performed at [facility], [address] [place] [address] Specimen Anatomical Collection Method Collection Time Receive d Time (Source) Location / / Volume Laterality Blood 08/07/2022 9:30 AM 3 9:33 MECHANICAL SYSTEMS ENGINEER AM MECHANICAL SYSTEMS ENGINEER [facility] - 08/07/2022 10:[address] [facility] This lab cannot be scheduled at the [facility] locations due to collection/proccessing restrictions: [facility] and [facility]. Sofy E Annabel PA LAB BLOOD ORDERABLES Performing Organization Address City/State/ZIP Code Judah Castan[place], [place] [address] [place] [address], C1 [address] Transferrin with TIBC (08/07/2022 9:30 AM MECHANICAL SYSTEMS ENGINEER)Only the most recent of2 results within the time period is included. athologist Signature Transferrin 254 200 - 360 [place] mg/dL Comment: Performed at [facility], [address] [place] [address] TIBC 356 250 - 450 mcg/dL [place] Comment: Performed at [facility], [address] [place] [address] Specimen Anatomical Collection Method Collection Time Receive d Time (Source) Location / / Volume Laterality Blood 08/07/2022 9:30 AM 3 9:32 MECHANICAL SYSTEMS ENGINEER AM MECHANICAL SYSTEMS ENGINEER [facility] - 08/07/2022 10:14 AM MECHANICAL SYSTEMS ENGINEER No fasting required [place] No fasting required Sofy E Annabel PA LAB BLOOD ORDERABLES Performing Organization Address City/[facility] Judah Castaneda [place], [place] [id number] [place] [address], [facility] [address] Iron Level (08/07/2022 9:30 AM MECHANICAL SYSTEMS ENGINEER)Only the most recent of2 resultswithin the time period is included. athologist Signature Iron 45 37 - 145 [place] mcg/dL Comment: [facility], [address] [place] [address] Specimen Anatomical Collection Method Collection Time Receive d Time (Source) Location / / Volume Laterality Blood 08/07/2022 9:30 AM 3 9:32 MECHANICAL SYSTEMS ENGINEER AM MECHANICAL SYSTEMS ENGINEER [facility] - 08/07/2022 10:14 AM MECHANICAL SYSTEMS ENGINEER No fasting required [place] No fasting required Sofy E Annabel PA LAB BLOOD ORDERABLES Performing Organization Address City/[facility]/ZIP [facility] [place] Cast[place], [place] [id number] [place], [place] [address] [facility] [place] [address] IgA (08/07/2022 9:30 AM MECHANICAL SYSTEMS ENGINEER) athologist Signature IgA 146 85 - 499 [facility] mg/dL [facility] Specimen Anatomical Collection Method Collection Time Receive d Time (Source) Location / / Volume Laterality Blood 08/07/2022 9:30 AM 3 7:51 MECHANICAL SYSTEMS ENGINEER AM MECHANICAL SYSTEMS ENGINEER Narrative [facility] - 3 1:23 PM MECHANICAL SYSTEMS ENGINEER [place] Sofy E Annabel PA LAB BLOOD ORDERABLES Performing Organization Address City/State/ZIP Code Phon e Number [facility] Unless otherwise noted, [address] all lab tests performed by: Division of Pathology and Laboratory Medicine Nicole Bautista IgM (08/07/2022 9:30 AM MECHANICAL SYSTEMS ENGINEER) athologist Signature IgM 84 35 - 242 [facility] mg/dL [facility] Specimen Anatomical Collection Method Collection Time Receive d Time (Source) Location / / Volume Laterality Blood 08/07/2022 9:30 AM 3 7:51 MECHANICAL SYSTEMS ENGINEER AM MECHANICAL SYSTEMS ENGINEER Narrative [facility] - 3 1:24 PM MECHANICAL SYSTEMS ENGINEER [place] Sofy E Annabel PA LAB BLOOD ORDERABLES Performing Organization Address City/State/ZIP Code Phon e Number [facility] Unless otherwise noted, [address] all lab tests performed by: Division of Pathology and Laboratory Medicine Nicole Morrisseycomgraham Bautista IgG (08/07/2022 9:30 AM MECHANICAL SYSTEMS ENGINEER) athologist Signature IgG 719 610 - 1,616 [facility] mg/dL [facility] Specimen Anatomical Collection Method Collection Time Receive d Time (Source) Location / / Volume Laterality Blood 08/07/2022 9:30 AM 3 7:51 MECHANICAL SYSTEMS ENGINEER AM MECHANICAL SYSTEMS ENGINEER Narrative [facility] - 3 1:23 PM MECHANICAL SYSTEMS ENGINEER [place] Sofy E Annabel PA LAB BLOOD ORDERABLES Performing Organization Address City/State/ZIP Code Phon e Number [facility] Unless otherwise noted, [address] all lab tests performed by: Division of Pathology and Laboratory Medicine [facility] Ferritin Level (08/07/2022 9:30 AM MECHANICAL SYSTEMS ENGINEER)Only the most recent of2 resultswithin the time period is included. athologist Signature Ferritin Lvl 62 13 - 150 [place] ng/mL Comment: Testing performed at [facility], [address] [facility], [place] [address] Specimen Anatomical Collection Method Collection Time Receive d Time (Source) Location / / Volume Laterality Blood 08/07/2022 9:30 08/07/2022 9:33 AM MECHANICAL SYSTEMS ENGINEER AM MECHANICAL SYSTEMS ENGINEER Narrative [place] - 08/07/2022 10:32 AM MECHANICAL SYSTEMS ENGINEER No fasting required [place] No fasting required Sofy INMAN LAB BLOOD ORDERABLES Performing Organization Address City/State/ZIP Code Phon e Number [facility] [place] [address] [place] [address] [facility], [facility] [address] PETCT Subsequent Treatment Strategy (08/02/2022 3:42 PM MECHANICAL SYSTEMS ENGINEER) Anatomical Region Laterality Modality Whole Body Positron Emission To mography (PET) Specimen (Source) Anatomical Collection Method Collection Time Re ceived Time Location / / Volume Laterality 08/02/2022 4:45 PM MECHANICAL SYSTEMS ENGINEER Impressions 08/03/2022 3:29 PM MECHANICAL SYSTEMS ENGINEER Low-grade FDG uptake within the left upp [...] distant-extrathoracic systemic metastases. Narrative 08/03/2022 3:29 PM MECHANICAL SYSTEMS ENGINEER FULL RESULT: Examination: FDG PET/CT, 08/02/2022 3:42 [...] wili or distant- extrathoracic systemic metastases. Sofy INMAN IMG PETCT ORDERABLES OSI CT BRAIN (08/02/2022 2:47 PM MECHANICAL SYSTEMS ENGINEER) Specimen (Source) Anatomical Location Collection Method / Collectio n Time Received Time / Laterality Volume Narrative Systemgenerated, Documentation - 023 8:10 AM CDT Study acquired at another institution. For comparison only. No MD [place] originated interpretation requested or a vailable. Sofy INMAN IMG OUTSIDE IMAGE ORDERABLES Creatine Kinase (08/02/2022 11:24 AM MECHANICAL SYSTEMS ENGINEER) athologist Signature CK 61 26 - 192 [facility] Specimen Anatomical Collection Method Collection Time Receive d Time (Source) Location / / Volume Laterality Blood 08/02/2022 11:24 08/02/2022 8:43 AM MECHANICAL SYSTEMS ENGINEER PM MECHANICAL SYSTEMS ENGINEER Narrative [facility] - 9:00 PM MECHANICAL SYSTEMS ENGINEER [place] Sofy Brizuela Annabel INMAN LAB BLOOD ORDERABLES Performing Organization Address City/State/ZIP Code Phon e Number [facility] Unless otherwise noted, [place] [address] [place] all lab tests performed by: Division of Pathology and Laboratory Medicine [address] [facility] X-ray Chest 2 Views (06/26/2022 8:58 AM MECHANICAL SYSTEMS ENGINEER)Only the most recent of2 results within the time period is included. Anatomical Region Laterality Modality Chest Digital Radiography Specimen (Source) Anatomical Collection Method Collection Time Re ceived Time Location / / Volume Laterality 06/26/2022 9:02 AM MECHANICAL SYSTEMS ENGINEER Impressions 06/26/2022 9:04 AM MECHANICAL SYSTEMS ENGINEER No definite pneumothorax. Small left pleural effusion. Narrative 06/26/2022 9:04 AM MECHANICAL SYSTEMS ENGINEER FULL RESULT: Examination: XR CHEST 2 VW, [...] pneumothorax. Small left ple ural effusion. Josephine Mahmoodjan LEMUS IMG DIAGNOSTIC IMAGING ORDER FLOR OSI CHEST (06/16/2022 8:58 AM MECHANICAL SYSTEMS ENGINEER) Anatomical Region Laterality Modality Chest Other Specimen (Source) Anatomical Collection Method Collection Time Re ceived Time Location / / Volume Laterality 07/17/2022 12:46 PM MECHANICAL SYSTEMS ENGINEER Impressions 07/17/2022 12:46 PM MECHANICAL SYSTEMS ENGINEER FINDINGS and IMPRESSION: 1. Left thoracostomy removed. Tiny lef t pneumothorax resolved. 2. Heart not enlarged. Moderate aortic atherosclerotic changes. 3. Post cervical changes left chest, m ild elevation left hemidiaphragm, and trace left effusion versus minimal left basilar pleural scarring. Narrative 07/17/2022 12:46 PM MECHANICAL SYSTEMS ENGINEER FULL RESULT: Examination: OSI CHEST, 06/16/2022 8:58 [...] minimal left basilar pleural scarring. Sofy INMAN IMG OUTSIDE IMAGE ORDERABLES (ABNORMAL) Complete Blood Count w/o Differential (05/27/2022 4:03 AM MECHANICAL SYSTEMS ENGINEER) P athologist Signature WBC 6.3 4.0 - 11.0 [facility] RBC 2.89 (L) 4.00 - [place] MD 5.50 M/uL [facility] Hgb 9.5 (L) 12.0 - [place] MD 16.0 gm/dL [facility] Hct 28.9 (L) 37.0 - [place] MD 47.0 % [facility] MCV 100 (H) 82 - 98 [facility] MCH 32.9 (H) 27.0 - [place] MD 31.0 pg [facility] MCHC 32.9 31.0 - [place] MD 36.0 gm/dL [facility] RDW-SD 67.2 (H) 35.1 - [place] MD 46.3 fL [facility] RDW-CV 18.4 (H) 12.0 - [place] MD 15.5 % [facility] Platelet count 232 140 - 440 [facility] K/[facility] MPV 9.2 4.0 - 10.4 [facility] INRBC 0.0 <=0.0 % [facility] Comment: The INRBC (instrument NRBC) value [...] / Volume Laterality Blood 05/27/2022 4:03 AM 4:24 MECHANICAL SYSTEMS ENGINEER AM MECHANICAL SYSTEMS ENGINEER Cady Heller APRN LAB BLOOD ORDERABLES Performing Organization Address City/State/ZIP Code Phon e Number [facility] Unless otherwise noted, [place] [address] [place] all lab tests performed by: Division of Pathology and Laboratory Medicine [facility]5 Evelinegraham Bautista Glucose, Random (05/26/2022 5:50 AM MECHANICAL SYSTEMS ENGINEER)Only the most recent of2 resultswithin the time period is included. athologist Signature Glucose Random 116 70 - 199 [facility] mg/dL [facility] Comment: Effective 01/12/16, the glucose reference intervals have been updated based on [place] [employer] guidelines (Standards of Medical Care [...] Laterality Blood 05/26/2022 5:50 AM 2 6:14 MECHANICAL SYSTEMS ENGINEER AM MECHANICAL SYSTEMS ENGINEER Jim Hernadez MD LAB BLOOD ORDERABLES Performing Organization Address City/[facility]/ZIP Code Phon e Number [facility] Unless otherwise noted, [address] all lab tests performed by: Division of Pathology and Laboratory Medicine [address] [place] Anion Gap (05/26/2022 5:50 AM MECHANICAL SYSTEMS ENGINEER)Only the most recent of2 resultswithin the time period is included. athologist Signature Anion Gap 10 4 - 14 [facility] mEq/L [facility] Specimen Anatomical Collection Method Collection Time Receive d Time (Source) Location / / Volume Laterality Blood 05/26/2022 5:50 AM 2 6:14 MECHANICAL SYSTEMS ENGINEER AM MECHANICAL SYSTEMS ENGINEER Jim Hernadez MD LAB BLOOD ORDERABLES Performing Organization Address City/[facility] Phon e Number [facility] Unless otherwise noted, [address] all lab tests performed by: Division of Pathology and Laboratory Medicine [address] Calcium Ionized, Venous (05/26/2022 5:50 AM MECHANICAL SYSTEMS ENGINEER)Only the most recent of2 results within the time period is included. P athologist Signature V Ion Ca 1.22 1.15 - 1.29 [facility] mmol/L [facility] Specimen Anatomical Collection Method Collection Time Receive d Time (Source) Location / / Volume Laterality Blood 05/26/2022 5:50 AM 2 5:57 MECHANICAL SYSTEMS ENGINEER AM MECHANICAL SYSTEMS ENGINEER Jim Hernadez MD LAB BLOOD ORDERABLES Performing Organization Address City/[facility]/ZIP [facility] Phon e Number [facility] Unless otherwise noted, [address] all lab tests performed by: Division of Pathology and Laboratory Medicine [address] [place] Sodium Level (05/26/2022 5:50 AM MECHANICAL SYSTEMS ENGINEER)Only the most recent of2 resultswithin the time period is included. athologist Signature Sodium Lvl 140 136 - 145 [facility] mEq/L [facility] Specimen Anatomical Collection Method Collection Time Receive d Time (Source) Location / / Volume Laterality Blood 05/26/2022 5:50 AM 2 6:14 MECHANICAL SYSTEMS ENGINEER AM MECHANICAL SYSTEMS ENGINEER Jim Hernadez MD LAB BLOOD ORDERABLES Performing Organization Address City/[facility]/ZIP [facility] Phon e Number [facility] Unless otherwise noted, [address] all lab tests performed by: Division of Pathology and Laboratory Medicine [address] [place] Potassium Level (05/26/2022 5:50 AM MECHANICAL SYSTEMS ENGINEER)Only the most recent of2 resultswithin the time period is included. athologist Signature Potassium Lvl 4.3 3.5 - 5.1 [facility] mEq/L [facility] Specimen Anatomical Collection Method Collection Time Receive d Time (Source) Location / / Volume Laterality Blood 05/26/2022 5:50 AM 2 6:14 MECHANICAL SYSTEMS ENGINEER AM MECHANICAL SYSTEMS ENGINEER Jim Hernadez MD LAB BLOOD ORDERABLES Performing Organization Address City/[facility] Phon e Number [facility] Unless otherwise noted, [address] all lab tests performed by: Division of Pathology and Laboratory Medicine [address] [place] Chloride Level (05/26/2022 5:50 AM MECHANICAL SYSTEMS ENGINEER)Only the most recent of2 resultswithin the time period is included. athologist Signature Chloride 105 98 - 107 [facility] mEq/L [facility] Specimen Anatomical Collection Method Collection Time Receive d Time (Source) Location / / Volume Laterality Blood 05/26/2022 5:50 AM 2 6:14 MECHANICAL SYSTEMS ENGINEER AM MECHANICAL SYSTEMS ENGINEER Jim Hernadez MD LAB BLOOD ORDERABLES Performing Organization Address City/[facility] Phon e Number [facility] Unless otherwise noted, [address] all lab tests performed by: Division of Pathology and Laboratory Medicine [address] [place] Carbon Dioxide Level (05/26/2022 5:50 AM MECHANICAL SYSTEMS ENGINEER)Only the most recent of2 results within the time period is included. athologist Signature CO2 25 22 - 29 [place] mEq/L [facility] Specimen Anatomical Collection Method Collection Time Receive d Time (Source) Location / / Volume Laterality Blood 05/26/2022 5:50 AM 6:14 MECHANICAL SYSTEMS ENGINEER AM MECHANICAL SYSTEMS ENGINEER Jim Hernadez MD LAB BLOOD ORDERABLES Performing Organization Address City/State/ZIP Code Phon e Number [facility] Unless otherwise noted, [place] [address] CENTER all lab tests performed by: Division of Pathology and Laboratory Medicine [address] [facility] X-ray Chest 1 View (05/25/2022 10:56 AM MECHANICAL SYSTEMS ENGINEER) Anatomical Region Laterality Modality Chest Digital Radiography Specimen (Source) Anatomical Collection Method Collection Time Re ceived Time Location / / Volume Laterality 05/25/2022 11:17 AM MECHANICAL SYSTEMS ENGINEER Impressions 05/25/2022 11:18 AM MECHANICAL SYSTEMS ENGINEER Surgical changes in left lung. Opacities in left lower lung likely atelectasis in the postoperative setting. Small left pneumothorax. Opacities have increased in the right upper lobe may be due to aspiration or pneumonia. 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 Lymph node, subaortic, 5: 05/29/2022 [facility] Electronically Negative for tumor. 2:55 [...] negative for tumor (0/8) Synoptic LUNG 05/29/2022 [facility] Checklist LUNG: RESECTION - All Specimens 2:55 PM 8th Edition - Protocol posted: 04/27/2021 MECHANICAL SYSTEMS ENGINEER SPECIMEN Procedure: Lobectomy Specimen Laterality: Left TUMOR [...] pT0 pN Category: pN0 Gross A: 05/29/2022 [facility] Description Lymph node(s), subaortic, 5, or #20: Consists of a red-brown lymph node (0.8 x 0.5 x 0.4 cm). The specimen is entirely submitted in cassette A1. ML 2:55 PM B: MECHANICAL SYSTEMS ENGINEER Lymph node(s), left, hilar, 10l, or #20: [...] after removal of the staple line; F10-F11, medical billing representative section of uninvolved parenchyma of the lung; F12- F13, each containing 4 possible lymph nodes; F14, 3 possible lymph nodes. JX Disclaimer "Some tests 05/29/2022 [facility] reported here may 2:55 PM have been developed MECHANICAL SYSTEMS ENGINEER and performance characteristics determined by [facility] Pathology and Laboratory Medicine. These tests have not been specifically cleared or approved by the U.S. Food and Drug Administration. If applicable, controls were reviewed and showed appropriate reactivity." Specimen Anatomical Collection Method Collection Time Receive d Time (Source) Location / / Volume Laterality Tissue specimen 05/25/2022 8:21 AM 2021 9:54 (specimen) MECHANICAL SYSTEMS ENGINEER AM MECHANICAL SYSTEMS ENGINEER (Lymph Node(s), Subaortic, 5) Tissue specimen 05/25/2022 8:21 AM 2021 9:54 (specimen) MECHANICAL SYSTEMS ENGINEER AM MECHANICAL SYSTEMS ENGINEER (Lymph Node(s), Left, Hilar, 10L) Tissue specimen 05/25/2022 8:30 AM 2021 9:54 (specimen) MECHANICAL SYSTEMS ENGINEER AM MECHANICAL SYSTEMS ENGINEER (Lymph Node(s), Left, Interlobar, 11L) Tissue specimen 05/25/2022 9:16 AM 2021 9:54 (specimen) MECHANICAL SYSTEMS ENGINEER AM MECHANICAL SYSTEMS ENGINEER (Lymph Node(s), Para-Aortic, 6) Tissue specimen 05/25/2022 9:29 AM 2021 9:54 (specimen) MECHANICAL SYSTEMS ENGINEER AM MECHANICAL SYSTEMS ENGINEER (Lymph Node(s), Subcarinal, 7) Tissue specimen 05/25/2022 9:35 AM 2021 9:54 (specimen) MECHANICAL SYSTEMS ENGINEER AM MECHANICAL SYSTEMS ENGINEER (Lung, Left Upper Lobe) Jim Hernadez MD LAB PATHOLOGY ORDERABLES Performing Organization Address City/State/ZIP Code Phon e Number [facility] [place] [address], [facility] Clot Expiration Date (05/23/2022 9:58 AM MECHANICAL SYSTEMS ENGINEER) [facility] gist Method Time Signature T & S 05/26/2022 [facility] Specimen Anatomical Collection Method Collection Time Receive d Time (Source) Location / / Volume Laterality Blood 05/23/2022 9:58 AM 2:44 MECHANICAL SYSTEMS ENGINEER PM MECHANICAL SYSTEMS ENGINEER Josephine Modi APRN BLOOD BANK TEST ORDERABLES Performing Organization Address City/State/ZIP Code Phon e Number [facility] Unless otherwise noted, [address] all lab tests performed by: Division of Pathology and Laboratory Medicine [address] [place] [address] TMP Interpretation Antibody Screen Negative (05/23/2022 9:58 AM MECHANICAL SYSTEMS ENGINEER) [facility] TMP Auto Neg At the [facility] ABSC Interp present [facility] [place] patient plasma shows no evidence of RBC alloantibodi es. Comment: JOSEPHINE EARL, Dictated by: JOSEPHINE EARL, Dictated Date/Time: 05.24.2022 9:[address] Transcribed Date/Time: 05.24.2022 9:47 AM MECHANICAL SYSTEMS ENGINEER Electronically Signed By: JOSEPHINE EARL , on 05.24.2022 9:47 AM C Specimen Anatomical Collection Method Collection Time Receive d Time (Source) Location / / Volume Laterality Blood 05/23/2022 9:58 AM 2:44 MECHANICAL SYSTEMS ENGINEER PM MECHANICAL SYSTEMS ENGINEER Josephine Modi APRN BLOOD BANK TEST ORDERABLES Performing Organization Address City/State/ZIP Code Phon e Number [facility] Unless otherwise noted, [address] all lab tests performed by: Division of Pathology and Laboratory Medicine [address] [place] [address] TMP Interpretation Crossmatch (05/23/2022 9:58 AM MECHANICAL SYSTEMS ENGINEER) [facility] TMP XM Interp RBC units [place] crossmatched for [facility] CENTER acceptable. Comment: JOSEPHINE EARL, Dictated by: JOSEPHINE EARL, Dictated Date/Time: 05.25.2022 11:44 AM MECHANICAL SYSTEMS ENGINEER Transcribed Date/Time: 05.25.2022 11:44 AM MECHANICAL SYSTEMS ENGINEER Electronically Signed By: JOSEPHINE EARL , on 05.25.2022 11:44 AM Specimen Anatomical Collection Method Collection Time Receive d Time (Source) Location / / Volume Laterality Blood 05/23/2022 9:58 AM 2 2:44 MECHANICAL SYSTEMS ENGINEER PM MECHANICAL SYSTEMS ENGINEER Josephine Modi INTAKE ASSESSOR BLOOD BANK TEST ORDERABLES Performing Organization Address City/[facility] Code Phon e Number [facility] Unless otherwise noted, [address] all lab tests performed by: Division of Pathology and Laboratory Medicine [address] (ABNORMAL) Partial Thromboplastin Time (05/23/2022 9:58 AM MECHANICAL SYSTEMS ENGINEER) [facility] aPTT 36.3 (H) 22.8 - 34.2 THURMAN second(s) Comment: Testing performed at [facility], [address] [place] [id number] Specimen Anatomical Collection Method Collection Time Receive d Time (Source) Location / / Volume Laterality Blood 05/23/2022 9:58 AM 2 9:59 MECHANICAL SYSTEMS ENGINEER AM MECHANICAL SYSTEMS ENGINEER Narrative THURMAN - 05/23/2022 10:39 AM MECHANICAL SYSTEMS ENGINEER This lab cannot be scheduled at the [facility] locations due to collection/proccessing restrictions: [facility] and [facility]. Josephine Modi APRN LAB BLOOD ORDERABLES Performing Organization Address City/[facility] [place] [address], [facility] [address] ABORh (05/23/2022 9:58 AM MECHANICAL SYSTEMS ENGINEER) [facility] O POS [facility] Specimen Anatomical Collection Method Collection Time Receive d Time (Source) Location / / Volume Laterality Blood 05/23/2022 9:58 AM 2 2:44 MECHANICAL SYSTEMS ENGINEER PM MECHANICAL SYSTEMS ENGINEER Josephine Rianjan RONQUILLON BLOOD BANK TEST ORDERABLES Performing Organization Address City/[facility] Phon e Number [facility] Unless otherwise noted, [address] all lab tests performed by: Division of Pathology and Laboratory Medicine [address] Antibody Screen (05/23/2022 9:58 AM MECHANICAL SYSTEMS ENGINEER) athologist [facility] ABSC. Negative ABSC [facility] Specimen Anatomical Collection Method Collection Time Receive d Time (Source) Location / / Volume Laterality Blood 05/23/2022 9:58 AM 2 2:44 MECHANICAL SYSTEMS ENGINEER PM MECHANICAL SYSTEMS ENGINEER Josephine Modi APRN BLOOD BANK TEST ORDERABLES Performing Organization Address City/[facility]/ZIP Code Phon e Number [facility] Unless otherwise noted, [address] all lab tests performed by: Division of Pathology and Laboratory Medicine [address] [place] [address] Hemoglobin A1c (05/23/2022 9:58 AM MECHANICAL SYSTEMS ENGINEER) athologist Signature A1C 5.5 4.3 - 5.6 % THURMAN Comment: HbA1c values >=6.5% are diagnostic of di abetes mellitus. Diagnosis should be confirmed by repeat testing. Therapeutic Action suggested: >8.0% HbA1 c; Goal of therapy: <7.0% HbA1c [facility], [address] [place] [address] Specimen Anatomical Collection Method Collection Time Receive d Time (Source) Location / / Volume Laterality Blood 05/23/2022 9:58 AM 2 9:59 MECHANICAL SYSTEMS ENGINEER AM MECHANICAL SYSTEMS ENGINEER Josephine Modi APRN LAB BLOOD ORDERABLES Performing Organization Address City/[facility]/ZIP Code Phon e Number [place], [place] [id number] [place] [address], C1 [phone] Confirm ABORh (05/23/2022 9:56 AM MECHANICAL SYSTEMS ENGINEER) athologist Signature ABORh Confirm. O POS [facility] Specimen Anatomical Collection Method Collection Time Receive d Time (Source) Location / / Volume Laterality Blood 05/23/2022 9:56 AM 2 2:43 MECHANICAL SYSTEMS ENGINEER PM MECHANICAL SYSTEMS ENGINEER Josephine Modi APRN BLOOD BANK TEST ORDERABLES Performing Organization Address City/State/ZIP [facility] Phon e Number [facility] Unless otherwise noted, [address] all lab tests performed by: Division of Pathology and Laboratory Medicine [address] [place] [address] COVID-19 (SARS-CoV-2) PCR-Asymptomatic [facility] (05/23/2022 9:45 AM MECHANICAL SYSTEMS ENGINEER) Patholo gist Method Time Signature COVID19 (SARS Not Detected Not Detected [place] CoV-2) [facility] Comment: This test is a qualitative reverse-trans [...] fact sheet for patients provided by the resin maker ( [employer]) can be rev iewed at: https://www.[employer].gov/media/623880/downloa d. A fact sheet for Health Care providers is provided by the resin maker ([employer]) and can be reviewed at: https://www.fda.gov/media/490881/download Results must be interpreted within the c [...] were verified by the Microbiology Laboratory at [facility] CLIA Accreditation #: [id number] and CAP Accreditation #: [id number]. COVID19 SARS Source DIRECTOR CAREER SERVICES Swab [place] MD [facility] COVID19 SARS Indication Pre-OR Procedure [facility] Specimen (Source) Anatomical Collection Method Collection Time Re ceived Time Location / / Volume Laterality Nasopharyngeal Swab 05/23/2022 9:45 05/23 AM MECHANICAL SYSTEMS ENGINEER 12:32 PM MECHANICAL SYSTEMS ENGINEER Jim Hernadez MD MICROBIOLOGY - GENERAL ORDER FLOR Performing Organization Address City/State/ZIP Code Phon e Number [facility] Unless otherwise noted, [place] [address] [place] all lab tests performed by: Division of Pathology and Laboratory Medicine [address] [place] [address] after 04/10/2022 Insurance Payer Benefit Plan Subscriber ID Effective Phone Address Typ e / Group Dates [employer]IG[employer] MANAGED CIGNA HMO POS [id number] 2021-Prese PO SAM X [place]MO [place]ARE [place] nt [phone] [place] [address] MEDICARE MEDICARE PART [id number] 2008-Prese [phone] [facility] Medicare A AND B nt [id number] [employer] [address] [place] [address] Advance Directives Code Status Date Activated Date Inactivated Comments Full Code 05/25/2022 8:46 PM 05/29/2022 2:30 PM Care Teams Transportation Security Officer Relationship Specialty Start Date End Date Sheba Velez PCP - External Primary Nurse Practitioner 11/17/[address] [place] [address] Clay Ahumaad MD PCP - External Follow Pulmonary Medicine 11/17/21 [address] [place] [address] Moncho Terrell, PCP - General Thoracic Medicine 12/27/21 MD Sudeep [address] [place] [address] [phone] [facility] Cardiology 05/09/22 MD Vaibhav [address] [place] [phone] Keaton Rodriguez MD Consulting Physician Hematology and Oncology 03/27/[address] [place] [id number] Kaylie Mota MD Consulting Physician Pulmonary Medicine 12/20/[address] [place] [phone] Seth Fernandez, Consulting Physician Gastroenterology, 09/12/22 Hepatology and [address] [address] Mauri Barr MD Consulting Physician Pain Management 08/04/[address] [place] [id number]
--- OUTSIDE RECORDS SUMMARY | 2023-04-10 07:42 | XMS REPORT | Continuity of Care Document ---
:1945 Author Organization [facility] t Address [address] [facility] [address] [place] [address] Care Team Providers Name Role Phone BlakeLeodan fulton Primary Care Physician SYSTEM, PROVIDER NOT IN Attending Clinician Unavailable Mauri Barr MD Attending Clinician LEODAN BARAKAT Attending Clinician Unavailable Nathanael Thompson DO Attending Clinician Doctor Unassigned, [place] Attending Clinician Unavailable LAB90 Attending Clinician Unavailable CHERRY LAI Attending Clinician Unavailable Cherry Lai MD Attending Clinician Dai Crouch MD Attending Clinician [phone] DAI CROUCH Attending Clinician Unavailable Sofy Castillo Attending Clinician SOFY ALMENDAREZ Attending Clinician Unavailable Lucia Machado MA Attending Clinician Unavailable Sally Gillis APRN Attending Clinician SALLY GILLIS Attending Clinician Unavailable Tana Kay MD Attending Clinician Bruna Albarran MA Attending Clinician Unavailable TANA KAY Attending Clinician Unavailable NATHANAEL THOMPSON Attending Clinician Unavailable NATHANAEL THOMPSON Attending Clinician Unavailable HECTOR CARTER Attending Clinician Unavailable Joanna Landon MD Attending Clinician Josephine Jacobo APRN Attending Clinician Cande COLLAZO, Lilian Attending Clinician Norman Mendez Attending Clinician Unavailable Cyndy Anglin RN Attending Clinician Unavailable Yung COLLAZO, Holly Attending Clinician Asad HO, Pradeep Attending Clinician Warren Hernadez MD Attending Clinician Unavailable ODIN OH Attending Clinician Unavailable Paula Montero APRN Attending Clinician WARREN HERNADEZ Attending Clinician Unavailable Caridad HO, Evelyn Attending Clinician [facility] Phyllis WILDER Attending Clinician Unavailable Candy Delcid RD Attending Clinician Galo Kapoor Attending Clinician JOSEPHINE JACOBO Attending Clinician Unavailable Ana Laura Quinn RN Attending Clinician Shara PharmD, Elvia Vaughn Attending Clinician Unavailable Yu Elmore APRN Attending Clinician Kris Barrios MD Attending Clinician [phone] Tammy Giraldo APRN Attending Clinician Matilda Condon RN Attending Clinician Unavailable Kaylie Mota MD Attending Clinician Hector PharmD, Meredith Attending Clinician Franky Lopez RN Attending Clinician Unavailable Finn Gifford RN Attending Clinician Unavailable Darrick PharmAtul, Tra Attending Clinician BRINA HOLLOWAY Attending Clinician Unavailable Ambreen Nance Attending Clinician Pako LEMUS, Cyndy Flores Attending Clinician Balaji COLLAZO, Indira Wiseman Attending Clinician Unavailable Rad INMAN, Muriel Attending Clinician Mariama Baez MA Attending Clinician Brittney INMAN, Giorgi Bates Attending Clinician Elana Yoon Attending Clinician Unavailable Brenden LEMUS, Sana Liu Attending Clinician Nubia COLLAZO, Dany Fulton Attending Clinician Unavailable Brandyn SALAZAR, Susie Attending Clinician ISMAEL TONY Attending Clinician Unavailable Macario HO, Wade Metz Attending Clinician [phone] Familia HO, Holley Attending Clinician [phone] JOSE ABERNATHY Attending Clinician Unavailable Ca HO, Pedro Garcia Attending Clinician Goldie Magdaleno MD Attending Clinician Reed SALAZAR, Jennie Liu Attending Clinician Carine COLLAZO, Yu Allison Attending Clinician [phone] Jose Abernathy MD Attending Clinician RADIOLOGY, DEPT Attending Clinician Unavailable Shyanne Muñiz Attending Clinician Unavailable Jason De Jesus MD Attending Clinician Ella Verduzco Attending Clinician Sandy Chowdhury RN Attending Clinician Unavailable CLAY WEBER Attending Clinician Unavailable Olimpia Valencia Attending Clinician Anika Noonan NP Attending Clinician Valentin COLLAZO, Tristen Cavazos Attending Clinician Unavailable LAB39 Attending Clinician Unavailable Brina Holloway MD Attending Clinician FATUMA BAUMANN Attending Clinician Unavailable SAMMIE BOWER Attending Clinician Unavailable WARREN HERNADEZ Admitting Clinician Unavailable BIJAL MOTAGIE Admitting Clinician Unavailable Payers Payer Name Policy Type Policy Number Effective Date Expiration Date Macy GLASS 2 [id number] 2021 00:00:00 MEDICARE-PART B 5 [id number] 2021 00:00:00 Problems Condition Condition Condition Status [...] Last U nivers joann pain joann pain 1- Assessmen ity of 00:00: t & Plan: [place] Sangeeta HO g of this Anderso note n might be Cancer different Center from the original. After assessmen t her symptoms are indicativ e of thoracic nerve pain. I have refilled her gabapenti n prescript ion and advised her to start with 3 times a day again and then wean off per the typical protocol we previousl y ordered. Sent to her local [facility] pharmacy. 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 Hemoglobi n hematocri t 10.131.3 regine mack. We will monitor this during [...] Assessmen ity of 00:00: t & Plan: Sangeeta veras of [...] dependence dependence 6-29 it y of 00:00: MD [facility] Adenocarci [...] and most likely TMO will follow along. 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 Jarrett jacobs (current) (current) 3-30 Seyb old use of use of 00:00: - inhaled inhaled 00 Externa steroids steroids l COPD COPD Disease Active More (chronic (chronic 3-30 Seybol d obstructiv obstructiv 00:00: - e e 00 Externa pulmonary pulmonary l disease) disease) with with chronic chronic bronchitis bronchitis [place] or [place] or Disease Active More callus callus 3-30 Seybold 00:00: - 00 Externa l HTN HTN Disease Active More (hypertens (hypertens 1-25 Se ybold ion) ion) 00:00: - 00 Externa l Primary Primary Disease Active More hypertensi hypertensi 1-25 Se ybold on on 00:00: - 00 Externa l Chronic Chronic Disease Active Univers obstructiv obstructiv 4-05 it y of e e 00:00: [place] pulmonary pulmonary 00 disease disease Darryl bowen [facility] Coronary Coronary Disease Active Unive rs arterioscl arterioscl 05 it y of erosis erosis 00:00: [place] 00 MD [facility] Gastroesop Gastroesop Disease Active U nivers hageal hageal 4-05 ity of reflux reflux 00:00: [place] disease disease 00 MD Jose Angel wiseman [facility] Hypertensi Hypertensi Disease Active U nivers ve ve 405 ity of disorder disorder 00:00: [place] 00 MD Jose Angel wiseman [facility] Tobacco Tobacco Disease Active Univers user user 4- ity of 00:00: [place] MD Jose Angel wiseman [facility] Shortness Shortness Disease Active Uni vers of breath of breath 05 ity of 00:00: [place] 00 MD Jose Angel wiseman [facility] Allergies, Adverse Reactions, Alerts Allergy Allergy Status Severity Reaction(s) Onset Inactive Treating Comm ents Source Name Type Date Date Clinician Clindamy Propensi Active Anaphylaxis Difficul t Univers grecia Hcl ty to 6-23 y ity of adverse 00:00: Breathing [place] reaction 00 Medical s Branch CLINDAMY DRUG Active Anaphylaxis Uni vers GRECIA HCL INGREDI 6-23 ity of 00:00: [place] 00 Medical Branch CLINDAMY DRUG Active 2017-0 MD GRECIA INGREDI [...] na s [place]/Rash l Clindamy Drug Active 2018-0 Other Univers grecia Allergy 4-04 reaction( ity of 00:00: s): [place] 00 Itching/H MD [place]/Rash Anderso Other n reaction( Cancer s): Center Itching/H [place]/Rash CLINDAMY DRUG Active 2018-0 MD GRECIA [...] n 00 CLINDAMY DRUG Active 2018-0 MD GRCEIA INGREDI 4-04 Anderso 00:00: n 00 CLINDAMY [...] n 00 CLINDAMY DRUG Active 2018-0 MD RGECIA INGREDI 4-04 Anderso 00:00: n 00 CLINDAMY [...] Drug Active Univers ALLERGIE Class ity of S [facility] Family History Family Member Diagnosis Comments Start Date Stop Date Source Natural brother Dementia [facility] [place] Natural daughter Skin cancer [facility] [place] Natural father [facility] [place] Natural mother Brain cancer [facility] [place] Natural son [facility] [place] Social History Social Habit Start Date Stop Date Quantity Comments Source Sexual orientation Univer sity of [place] MD Suraj evans [facility] Gender identity [facility]it y [facility] Exposure to 2022-09-02 2022-09-12 Not sure University of SARS-CoV-2 (event) 00:00:00 09:35:00 [facility] Alcohol intake 2022-08-07 2022-08-07 Ex-drinker University of 00:00:00 00:00:00 (finding) Niecy evans [facility] History of Social 2022-08-07 2022-08-07 Univers ity of function 00:00:00 00:00:00 Niecy evans [facility] Cigarettes smoked 2022-05-25 2022-05-25 Univers ity of current (pack per 00:00:00 00:00:00 Niecy Elmore ) - Reported Cancer Ce nter Cigarette 2022-05-25 2022-05-25 University of pack-years 00:00:00 00:00:00 Niecy evans [facility] Tobacco use and 2022-05-25 2022-05-25 Smokeless Universit y of exposure 00:00:00 00:00:00 tobacco non-user [facility] Tobacco Comment 2022-05-25 2022-05-25 6-8 cpd x 1 Universi ty of 00:00:00 00:00:00 month [facility] History of tobacco 1961-06-18 2022-01-12 Cigarette Smoker University of use 00:00:00 00:00:00 [facility] Education 2021-11-29 2021-11-29 10 University 00:00:00 00:00:00 [facility] Sex Assigned [birth year] Universit y of 00:00:00 00:00:00 Niecy evans [facility] Smoking Status Start Date Stop Date Source Tobacco smoking [place] consumption unknown Medical Bran ch Ex-smoker 2022-05-25 00:00:00 2022-05-25 [place] o f Niecy HO 00:00:00 [facility] Smokes tobacco daily 2021-09-14 00:00:00 More Seybold - External Medications Ordered Filled Start Stop Current Ordering Indication Dosage Frequency Signature Comments Components Source Medication Medication Date Date Medication? Clinician (SIG) Name Name gabapentin 2022-06 Yes Postoperati TAKE 1 Univers (NEURONTIN) 0-23 ve pain CAPSULE(30 ity of 300 mg 00:00: 0 MG) BY [place] capsule 00 MOUTH THREE Anderso TIMES n DAILY Cancer Center gabapentin 2022- No Postoperati TAKE 1 Univers (NEURONTIN) 9-22 10-23 ve pain CAPSULE(30 ity of 300 mg 00:00: 00:00 0 MG) BY [place] capsule 00 :00 MOUTH THREE Anderso TIMES n DAILY Cancer [place] Loratadine Yes [id number] 10mg Take 1 More (Claritin) 9-11 capsule Seybol d 10 MG oral 00:00: (10 mg - Capsule 00 total) by Externa mouth l daily. Fluconazole 2022- Yes [id number] 150mg Take 1 More 150 MG oral 9- 09-12 tablet Seybo ld Tablet 00:00: 04:59 (150 mg - 00 :00 total) by Externa mouth once l for 1 dose. esomeprazol Yes 40mg Take 1 Univ ers e (NexIUM) 8-28 capsule ity of 40 MG 09:13: (40 mg) by [place] capsule 34 mouth every Anderso morning n before Cancer breakfast. [place] senna Yes 1{tbl} Take 1 Univers (SENOKOT) 8-28 tablet by ity o f 8.6 mg 09:13: mouth Niecy tablet 34 every MD other day. Anderso n Cancer Center albuterol Yes 2.5mg Inhale 3 Uni vers (PROVENTIL, 8-28 mL (2.5 ity o f VENTOLIN) 09:13: mg) by Niecy 2.5 mg/3 mL 34 nebulizati (0.083%) on twice Anderso nebulizer daily. n solution Patient Cancer has been Center using 3-4 times a day apixaban 2023- Yes Cerebral 2.5mg Take 1 U nivers (Eliquis) 02-12 venous tablet ity o f 2.5 mg 00:00: 04:59 sinus (2.5 mg) [place] tablet 00 :00 thrombosis by mouth MD every 12 Anderso (twelve) n hours for Cancer 360 days. Center gabapentin 2022- No Postoperati TAKE 1 Univers (NEURONTIN) 02-12 ve pain CAPSULE(30 ity of 300 mg 00:00: 00:00 0 MG) BY [place]ie[place] capsule 00 :00 MOUTH MD THREE Anderso TIMES n DAILY Cancer Center Ondansetron Yes TAKE 1 Cony ey (ZOFRAN) 4 -07 TABLET BY yb old MG oral 00:00: MOUTH - TABLET 00 EVERY 6 Externa DISPERSIBLE HOURS FOR l 5 DAYS. Sennosides Yes 1{tbl} Take 1 Jarrett sey 8.6 MG oral 8-01 tablet by Sey bold Tablet 14:41: mouth - 55 Externa l Sennosides Yes 1{tbl} Take 1 Jarrett sey 8.6 MG oral 8-01 tablet by Sey bold Tablet 14:41: mouth - 55 Externa l Fluconazole 2022- No [id number] 150mg Take 1 More 150 MG oral 01-16 tablet Seybo ld Tablet 00:00: 00:00 (150 mg - 00 :00 total) by Externa mouth once l for 1 dose Fluconazole 2022- No Kelse y 150 MG oral 01-16 Seybold Tablet 00:00: 00:00 - 00 :00 Externa l fluconazole 2022- No Unive rs (DIFLUCAN) 01-16 ity of 150 mg 00:00: 00:00 [place] tablet 00 :00 MD Jose Angel wiseman [facility] Fluconazole 2022- No [id number] 150mg Take 1 More 150 MG oral 01-16 tablet Seybo ld Tablet 00:00: 04:59 (150 mg - 00 :00 total) by Externa mouth once l for 1 dose Metoclopram Yes TAKE 3 Cony ey leslye HCl 10 7-25 TABLETS BY Sey bold MG oral 00:00: MOUTH - Tablet 00 DIRECTED Externa PER YOUR l COLONOSCOP Y PREP PACKET. Na Yes MIX AND More Sulfate-K 01-09 DRINK Seybol d Sulfate-Mg 00:00: DIRECTED - Sulf 00 Externa (SUPREP l BOWEL PREP KIT) 17.5-3.13-1 .6 GM/177ML oral Solution sodium,pota 2022- No MIX AND Un devante ssium,mag 01-09 DRINK ity o f sulfates 00:00: 00:00 DIRECTED [place] 17.5-3.13-1 00 :00 .6 gram Jose Angel bateman [facility] Pantoprazol Yes [id number] TAKE 1 More e Sodium 40 7-14 TABLET BY Sey bold MG oral 00:00: MOUTH - Tablet 00 DAILY Externa Delayed l Response Pantoprazol Yes [id number] TAKE 1 More e Sodium 40 7-14 TABLET BY Sey bold MG oral 00:00: MOUTH - Tablet 00 DAILY Externa Delayed l Response gabapentin Yes 300mg Take 1 Univ ers 300 mg 6-23 capsule by ity of capsule 10:53: mouth in [place] [address] the Medical morning. Branch apixaban Yes 2.5mg Take 1 Univer s 2.5 mg 6-23 tablet by ity of tablet 10:53: mouth in [place] [address] the Medical morning Branch and 1 tablet in the evening. pantoprazol Yes 40mg Take 1 Univ ers e 40 mg EC 6-23 tablet by ity of tablet 10:53: mouth in [place] [address] the Medical morning. Branch albuterol Yes 2.5mg Inhale 3 Uni vers 2.5 mg /3 6-23 mL as ity of mL (0.083 10:53: [place] 49 Wheezing Medical nebulizer or Branch solution Shortness of Breath. metoprolol 2023-0 Yes 50mg Take 1 Unive rs tartrate 50 6-23 tablet by ity of mg tablet 10:53: mouth in [place] [address] the Medical morning. Branch gabapentin 2023-0 Yes 300mg Take 1 Univ ers 300 mg 6-23 capsule by ity of capsule 10:53: mouth in [place] [address] the Medical morning. Branch apixaban 2023-0 Yes 2.5mg Take 1 Univer s 2.5 mg 6-23 tablet by ity of tablet 10:53: mouth in [place] [address] the Medical morning Branch and 1 tablet in the evening. pantoprazol 2023-0 Yes 40mg Take 1 Univ ers e 40 mg EC 6-23 tablet by ity of tablet 10:53: mouth in [place] [address] the Medical morning. Branch albuterol 2023-0 Yes 2.5mg Inhale 3 Uni vers 2.5 mg /3 6-23 mL as ity of mL (0.083 10:53: [place] 49 Wheezing Medical nebulizer or Branch solution Shortness of Breath. metoprolol 2023-0 Yes 50mg Take 1 Unive rs tartrate 50 6-23 tablet by ity of mg tablet 10:53: mouth in [place] [address] the Medical morning. Branch gabapentin 2023-0 Yes 300mg Take 1 Univ ers 300 mg 6-23 capsule by ity of capsule 10:53: mouth in [place] [address] the Medical morning. Branch apixaban 2023-0 Yes 2.5mg Take 1 Univer s 2.5 mg 6-23 tablet by ity of tablet 10:53: mouth in [place] [address] the Medical morning Branch and 1 tablet in the evening. pantoprazol 2023-0 Yes 40mg Take 1 Univ ers e 40 mg EC 6-23 tablet by ity of tablet 10:53: mouth in [place] [address] the Medical morning. Branch albuterol 2023-0 Yes 2.5mg Inhale 3 Uni vers 2.5 mg /3 6-23 mL as ity of mL (0.083 10:53: [place] 49 Wheezing Medical nebulizer or Branch solution Shortness of Breath. metoprolol 2023-0 Yes 50mg Take 1 Unive rs tartrate 50 6-23 tablet by ity of mg tablet 10:53: mouth in [place] [address] the Medical morning. Branch gabapentin 2023-0 Yes 300mg Take 1 Univ ers 300 mg 6-23 capsule by ity of capsule 10:53: mouth in [place] [address] the Medical morning. Branch apixaban 2023-0 Yes 2.5mg Take 1 Univer s 2.5 mg 6-23 tablet by ity of tablet 10:53: mouth in [place] [address] the Medical morning Branch and 1 tablet in the evening. pantoprazol 2023-0 Yes 40mg Take 1 Univ ers e 40 mg EC 6-23 tablet by ity of tablet 10:53: mouth in [place] [address] the Medical morning. Branch albuterol 2023-0 Yes 2.5mg Inhale 3 Uni vers 2.5 mg /3 6-23 mL as ity of mL (0.083 10:53: [place] 49 Wheezing Medical nebulizer or Branch solution Shortness of Breath. metoprolol 2023-0 Yes 50mg Take 1 Unive rs tartrate 50 6-23 tablet by ity of mg tablet 10:53: mouth in [place] [address] the Medical morning. Branch gabapentin 2023-0 Yes 300mg Take 1 Univ ers 300 mg 6-23 capsule by ity of capsule 10:53: mouth in [place] [address] the Medical morning. Branch apixaban 2023-0 Yes 2.5mg Take 1 Univer s 2.5 mg 6-23 tablet by ity of tablet 10:53: mouth in [place] [address] the Medical morning Branch and 1 tablet in the evening. pantoprazol 2023-0 Yes 40mg Take 1 Univ ers e 40 mg EC 6-23 tablet by ity of tablet 10:53: mouth in [place] [address] the Medical morning. Branch albuterol 2023-0 Yes 2.5mg Inhale 3 Uni vers 2.5 mg /3 6-23 mL as ity of mL (0.083 10:53: [place] 49 Wheezing Medical nebulizer or Branch solution Shortness of Breath. metoprolol 2023-0 Yes 50mg Take 1 Unive rs tartrate 50 6-23 tablet by ity of mg tablet 10:53: mouth in [place] [address] the Medical morning. Branch gabapentin 2023-0 Yes 300mg Take 1 Univ ers 300 mg 6-23 capsule by ity of capsule 10:53: mouth in [place] [address] the Medical morning. Branch apixaban 2023-0 Yes 2.5mg Take 1 Univer s 2.5 mg 6-23 tablet by ity of tablet 10:53: mouth in [place] [address] the Medical morning Branch and 1 tablet in the evening. pantoprazol 2023-0 Yes 40mg Take 1 Univ ers e 40 mg EC 6-23 tablet by ity of tablet 10:53: mouth in [place] [address] the Medical morning. Branch albuterol 2023-0 Yes 2.5mg Inhale 3 Uni vers 2.5 mg /3 6-23 mL as ity of mL (0.083 10:53: [place] 49 Wheezing Medical nebulizer or Branch solution Shortness of Breath. metoprolol 2023-0 Yes 50mg Take 1 Unive rs tartrate 50 6-23 tablet by ity of mg tablet 10:53: mouth in [place] [address] the Medical morning. Branch gabapentin 2023-0 Yes 300mg Take 1 Univ ers 300 mg 6-23 capsule by ity of capsule 10:53: mouth in [place] [address] the Medical morning. Branch apixaban 2023-0 Yes 2.5mg Take 1 Univer s 2.5 mg 6-23 tablet by ity of tablet 10:53: mouth in [place] [address] the Medical morning Branch and 1 tablet in the evening. pantoprazol 2023-0 Yes 40mg Take 1 Univ ers e 40 mg EC 6-23 tablet by ity of tablet 10:53: mouth in [place] [address] the Medical morning. Branch albuterol 2023-0 Yes 2.5mg Inhale 3 Uni vers 2.5 mg /3 6-23 mL as ity of mL (0.083 10:53: [place] 49 Wheezing Medical nebulizer or Branch solution Shortness of Breath. metoprolol 2023-0 Yes 50mg Take 1 Unive rs tartrate 50 6-23 tablet by ity of mg tablet 10:53: mouth in [place] [address] the Medical morning. Branch gabapentin 2023-0 Yes 300mg Take 1 Univ ers 300 mg 6-23 capsule by ity of capsule 10:53: mouth in [place] 49 the Medical morning. Branch apixaban 0 Yes 2.5mg Take 1 Univer s 2.5 mg 6-23 tablet by ity of tablet 10:53: mouth in [place] 49 the Medical morning Branch and 1 tablet in the evening. pantoprazol 0 Yes 40mg Take 1 Univ ers e 40 mg EC 6-23 tablet by ity of tablet 10:53: mouth in [place] 49 the Medical morning. Branch albuterol 0 Yes 2.5mg Inhale 3 Uni vers 2.5 mg /3 6-23 mL as ity of mL (0.083 10:53: [place] 49 Wheezing Medical nebulizer or Branch solution Shortness of Breath. metoprolol 0 Yes 50mg Take 1 Unive rs tartrate 50 6-23 tablet by ity of mg tablet 10:53: mouth in [facility] 49 the Medical morning. Branch Symbicort 0 Yes INHALE 2 Cony ey 160-4.5 6-23 PUFFS BY Seybold MCG/ACT 00:00: MOUTH IN - inhalation 00 THE Externa Aerosol MORNING l AND IN THE EVENING budesonide- 2022-0 Yes 2{puff} Inhale 2 Univers formoterol 6-23 puffs by ity o f (SYMBICORT) 00:00: [facility] MD mcg/actuati Anderso on inhaler [facility] budesonide- 2022-0 Yes [id number] 2{puff} Inhale 2 Univers formoteroL 6-23 Puffs in ity o f (SYMBICORT) 00:00: the [place] 160-4.5 00 morning Medical mcg/actuati and 2 Branch on inhaler Puffs in the evening. budesonide- 2022-0 Yes [id number] 2{puff} Inhale 2 Univers formoteroL 6-23 Puffs in ity o f (SYMBICORT) 00:00: the [place] 160-4.5 00 morning Medical mcg/actuati and 2 Branch on inhaler Puffs in the evening. budesonide- 2022-0 Yes [id number] 2{puff} Inhale 2 Univers formoteroL 6-23 Puffs in ity o f (SYMBICORT) 00:00: the [place] 160-4.5 00 morning Medical mcg/actuati and 2 Branch on inhaler Puffs in the evening. budesonide- 2022-0 Yes [id number] 2{puff} Inhale 2 Univers formoteroL 6-23 Puffs in ity o f (SYMBICORT) 00:00: the [place] 160-4.5 00 morning Medical mcg/actuati and 2 Branch on inhaler Puffs in the evening. budesonide- 2022-0 Yes [id number] 2{puff} Inhale 2 Univers formoteroL 6-23 Puffs in ity o f (SYMBICORT) 00:00: the [place] 160-4.5 00 morning Medical mcg/actuati and 2 Branch on inhaler Puffs in the evening. budesonide- 2022-0 Yes [id number] 2{puff} Inhale 2 Univers formoteroL 6-23 Puffs in ity o f (SYMBICORT) 00:00: the [place] 160-4.5 00 morning Medical mcg/actuati and 2 Branch on inhaler Puffs in the evening. budesonide- 2022-0 Yes [id number] 2{puff} Inhale 2 Univers formoteroL 6-23 Puffs in ity o f (SYMBICORT) 00:00: the [place] 160-4.5 00 morning Medical mcg/actuati and 2 Branch on inhaler Puffs in the evening. budesonide- 2022-0 Yes [id number] 2{puff} Inhale 2 Univers formoteroL 6-23 Puffs in ity o f (SYMBICORT) 00:00: the [place] 160-4.5 00 morning Medical mcg/actuati and 2 Branch on inhaler Puffs in the evening. Pseudoeph-B Yes [id number] 10mL Q.25D Take 10 mL More romphen-DM 6-01 by mouth 4 Sey bold 30-2-10 00:00: times - MG/5ML oral 00 daily as Exte rna Syrup needed l Amoxicillin Yes [id number] 1{tbl} Take 1 More -Pot 6-01 tablet by Seybold Clavulanate 00:00: mouth 2 - 500-125 MG 00 times Externa oral Tablet daily l Gabapentin Yes [id number] 300mg Take 1 More 300 MG oral 6-01 capsule Seybo ld Capsule 00:00: (300 mg - 00 total) by Externa mouth l nightly Apixaban 3-0 Yes [id number] 2.5mg Take 1 Ke [place] (Eliquis) 6-01 tablet Seybold 2.5 MG oral 00:00: (2.5 mg - Tablet 00 total) by Externa mouth 2 l times daily Pseudoeph-B 2022-0 Yes [id number] 10mL Q.25D Take 10 mL More romphen-DM 6-01 by mouth 4 Sey bold - 00:00: times - MG/5ML oral 00 daily as Exte rna Syrup needed l Amoxicillin 2022-0 Yes [id number] 1{tbl} Take 1 More -Pot 6-01 tablet by Seybold Clavulanate 00:00: mouth 2 - 500-125 MG 00 times Externa oral Tablet daily l Gabapentin 2022-0 Yes [id number] 300mg Take 1 More 300 MG oral 6-01 capsule Seybo ld Capsule 00:00: (300 mg - 00 total) by Externa mouth l nightly Apixaban 2022-0 Yes [id number] 2.5mg Take 1 [place] (Eliquis) 6-01 tablet Seybold 2.5 MG oral 00:00: (2.5 mg - Tablet 00 total) by Externa mouth 2 l times daily Gabapentin 2022-0 Yes [id number] 300mg Take 1 More 300 MG oral 6-01 capsule Seybo ld Capsule 00:00: (300 mg - 00 total) by Externa mouth l nightly Apixaban 2022-0 Yes [id number] 2.5mg Take 1 Ke [place] (Eliquis) 6-01 tablet Seybold 2.5 MG oral 00:00: (2.5 mg - Tablet 00 total) by Externa mouth 2 l times daily Pseudoeph-B 2022-0 2022- No [id number] 10mL Q.25D Take 10 mL More romphen-DM 6-01 02-26 by mouth 4 Se ybold 2- 00:00: 00:00 times - MG/5ML oral 00 :00 daily as Exte rna Syrup needed l Amoxicillin 2022-0 2022- No [id number] 1{tbl} Take 1 More -Pot 11-16-11 tablet by Seybold Clavulanate 00:00: 00:00 mouth 2 - 500-125 MG 00 :00 times Externa oral Tablet daily l bromphenira 2022- No 10mL Take 10 mL Univers mine-pseudo 11-16 08-18 by mouth. it y of ephedrine-D 00:00: 00:00 Niecy M 2-30-10 00 :00 mg/5 mL Anderso syrup n [facility] gabapentin Yes Postoperati TAKE 1 Univers (NEURONTIN) 5-30 ve pain CAPSULE(30 ity of 300 mg 00:00: 0 MG) BY [place] capsule 00 MOUTH THREE Anderso TIMES n DAILY Cancer Center gabapentin 2022- No Postoperati TAKE 1 [facility] (NEURONTIN) 5-30 08-28 ve pain CAPSULE(30 ity of 300 mg 00:00: 00:00 0 MG) BY [place] capsule 00 :00 MOUTH THREE Anderso TIMES n DAILY [facility] apixaban Yes Cerebral 2.5mg Take 1 Un devante (Eliquis) 5-24 venous tablet ity of 2.5 mg 00:00: sinus (2.5 mg) [place] tablet 00 thrombosis by mouth every 12 Anderso (twelve) n hours. Cancer Center apixaban Yes Cerebral 2.5mg Take [...] using 3-4 times a day Pantoprazol Yes [id number] TAKE 1 More e Sodium 40 5-18 TABLET BY Sey bold MG oral 00:00: MOUTH - Tablet 00 DAILY Externa Delayed l Response apixaban 2022- No Cerebral 2.5mg Take 1 U nivers (Eliquis) 5-10 05-24 venous tablet ity o f 2.5 mg 00:00: 00:00 sinus (2.5 mg) [place] tablet 00 :00 thrombosis by mouth MD every 12 Anderso (twelve) n hours. [facility] Center apixaban 2022- No Cerebral 2.5mg Take 1 U nivers (Eliquis) 5-10 05-24 venous tablet ity o f 2.5 mg 00:00: 00:00 sinus (2.5 mg) [place] tablet 00 :00 thrombosis by mouth MD every 12 Anderso (twelve) n hours. [facility] Center Eliquis 2.5 2022- No Cerebral TAKE 1 Univers mg tablet 10-25 05-10 venous TABLET(2.5 i ty of 00:00: 00:00 sinus MG) BY [place] 00 :00 thrombosis MOUTH MD EVERY 12 Anderso HOURS n [facility] Center Eliquis 2.5 2022- No Cerebral TAKE 1 [facility] mg tablet 10 05-10 venous TABLET(2.5 i ty of 00:00: 00:00 sinus MG) BY [place] 00 :00 thrombosis MOUTH MD EVERY 12 Anderso HOURS n [facility] Center gabapentin 2022- No Postoperati TAKE 1 [facility] (NEURONTIN) 4-24 05-30 ve pain CAPSULE(30 ity of 300 mg 00:00: 00:00 0 MG) BY [place] capsule 00 :00 MOUTH THREE [place] TIMES n DAILY [facility] gabapentin 2022- No Postoperati TAKE 1 [facility] (NEURONTIN) 4-24 05-30 ve pain CAPSULE(30 ity of 300 mg 00:00: 00:00 0 MG) BY [place] capsule 00 :00 MOUTH THREE Andmaryo TIMES n DAILY Cancer [place] atorvastati Yes TAKE 1 Univ ers n (LIPITOR) 4-19 TABLET BY ity of 40 mg 00:00: MOUTH ONCE [place] tablet 00 DAILY MD Jose Angel wiseman [facility] [place] pantoprazol Yes TAKE 1 Univ ers e 4-19 TABLET BY ity of (PROTONIX) 00:00: MOUTH [place] 40 mg EC 00 [facility] Pantop[facility]ol Yes [id number] 40mg Take 1 More e Sodium 40 4-19 tablet (40 Se ybold MG oral 00:00: mg total) - Tablet 00 by mouth Externa Delayed daily l Response Tramadol Yes [id number] 50mg Take 1 More HCl 4-19 102 tablet (50 Seybold (ULTRAM) 50 00:00: mg total) - MG oral 00 by mouth 2 [employer] a Tablet times l daily Baclofen 10 Yes [id number] 10mg Take 1 More MG oral 4-19 tablet (10 Seybol d Tablet 00:00: mg total) - 00 by mouth 3 Externa times l daily Alendronate Yes TAKE 1 Cony ey Sodium 70 4-19 TABLET BY Seybo ld MG oral 00:00: MOUTH ONCE - Tablet 00 WEEKLY ON Externa AN EMPTY l STOMACH BEFORE BREAKFAST. REMAIN UPRIGHT FOR 30 MINUTES AND TAKE WITH 8OZ OF WATER pantoprazol Yes TAKE 1 Univ ers e 4-19 TABLET BY ity of (PROTONIX) 00:00: MOUTH [place] 40 mg EC 00 [facility] 1 Univ ers (ZOFRAN) 8 4-19 TABLET BY ity of mg tablet 00:00: MOUTH [place] 00 EVERY 8 MD HOURS Anderso NEEDED n [facility]NA[facility] VOMITING alendronate Yes TAKE 1 Univ ers (FOSAMAX) 4-19 TABLET BY ity o f 70 mg 00:00: MOUTH ONCE [place] tablet 00 WEEKLY ON MD AN EMPTY Anderso STOMACH n BEFORE Cancer BREAKFAST. Center REMAIN UPRIGHT FOR 30 MINUTES AND TAKE WITH 8OZ OF WATER atorvastati 2022- No TAKE 1 Uni vers n (LIPITOR) 4-19 08-18 TABLET BY it y of 40 mg 00:00: 00:00 MOUTH ONCE [place] tablet 00 :00 DAILY MD [facility] Center Dulera 2022- No INHALE 1 Univer s 100-5 - 08-18 PUFF BY ity of mcg/actuati 00:00: 00:00 MOUTH [place] on HFAA 00 :00 TWICE MD DAILY. [facility] dexAMETHaso 2022- No Unive rs ne 10-04 ity of (DECADRON) 00:00: 00:00 [place] 4 mg tablet 00 :00 [facility] baclofen 2022- No Univers (LIORESAL) 10-04 ity of 10 mg 00:00: 00:00 [place] tablet 00 :00 [facility] Tramadol 2022- No [id number] 50mg Take 1 More HCl 10-04 102 tablet (50 Seybold (ULTRAM) 50 00:00: 00:00 mg total) - MG oral 00 :00 by mouth 2 [employer] a Tablet times l daily Baclofen 10 2022- No [id number] 10mg Take 1 More MG oral 10-04 tablet (10 Seybo ld Tablet 00:00: 00:00 mg total) - 00 :00 by mouth 3 Externa times l daily Atorvastati 2022- No 40mg Take 1 Jarrett sey n Calcium 10-04 tablet (40 Sey bold 40 MG oral 00:00: 00:00 mg total) - Tablet 00 :00 by mouth Externa daily l Fluconazole Yes More 150 MG oral 4-16 Seybold Tablet 00:00: - 00 Externa l levoFLOXaci Yes TAKE 1 Cony ey n 500 MG 4-16 TABLET BY Seybol d oral Tablet 00:00: MOUTH - 00 EVERY DAY Externa UNTIL ALL l TAKEN Dulera Yes More 100-5 4-16 Seybold MCG/ACT 00:00: - inhalation 00 Externa Aerosol l predniSONE Yes TAKE 1 Kelse y (DELTASONE) 4-16 TABLET BY Sey bold 20 MG oral 00:00: MOUTH - tablet 00 TWICE Externa DAILY l UNTIL ALL TAKEN. Fluconazole 2022- No Kelse y 150 MG oral -01 12-01 Seybold Tablet 00:00: 00:00 - 00 :00 Externa l levoFLOXaci 2022- No TAKE 1 Jarrett sey n 500 MG 10-01 TABLET BY Seybo ld oral Tablet 00:00: 00:00 MOUTH - 00 :00 EVERY DAY Externa UNTIL ALL l TAKEN Dulera 2022- No More 100-5 10-01 Seybold MCG/ACT 00:00: 00:00 - inhalation 00 :00 Externa Aerosol l predniSONE 2022- No TAKE 1 Cony ey (DELTASONE) 10-01 TABLET BY Se ybold 20 MG oral 00:00: 00:00 MOUTH - tablet 00 :00 TWICE Externa DAILY l UNTIL ALL TAKEN. Eliquis 2.5 Yes More MG oral 09-27 Seybold Tablet 00:00: - 00 Externa l Eliquis 2.5 2022- No Kelse y MG oral 09-27 Seybold Tablet 00:00: 00:00 - 00 :00 [...] 0 MG) BY [place] capsule 00 MOUTH THREE Anderso TIMES n DAILY [facility] Center Gabapentin Yes More 300 MG oral 09-01 Seybold Capsule 00:00: - 00 Externa l Gabapentin 2022- No More 300 MG oral 09-01- Seybold Capsule 00:00: 00:00 - 00 :00 Externa l gabapentin 2022- No Postoperati TAKE 1 [facility] (NEURONTIN) 3 04-24 ve pain CAPSULE(30 ity of 300 mg 00:00: 00:00 0 MG) BY [place] capsule 00 :00 MOUTH THREE Anderso TIMES n DAILY [facility] gabapentin 2022- No Postoperati TAKE 1 [facility] (NEURONTIN) 3-17 04-24 ve pain CAPSULE(30 ity of 300 mg 00:00: 00:00 0 MG) BY [place] capsule 00 :00 MOUTH MD DOBSON Andmaryo TIMES n DAILY [facility] Center Chlorhexidi 2022- No Kelse y ne 08-16 04-19 Seybold Gluconate 00:00: 00:00 - 0.12 % 00 :00 Externa mouth/throa l t Solution gabapentin 2022- No Postoperati 300mg Take 1 Univers (Neurontin) 2-17 03-17 ve pain capsule i ty of 300 mg 00:00: 00:00 (300 mg) [place] capsule 00 :00 by mouth 3 (three) Andmaryo times a n day. [facility] Center gabapentin 2022- No Postoperati 300mg Take 1 Univers (Neurontin) 209-01 ve pain capsule i ty of 300 mg 00:00: 00:00 (300 mg) [place] capsule 00 :00 by mouth 3 MD (three) Anderso times a n day. [facility] Center gabapentin 2022- No Postoperati 300mg Take 1 Univers (Neurontin) 08-04- ve pain capsule i ty of 300 mg 00:00: 00:00 (300 mg) [place] capsule 00 :00 by mouth 3 MD (three) Anderso times a n day. Cancer Center Prochlorper Yes More azine 2-15 Seybold Maleate 5 00:00: - MG oral 00 Externa Tablet l Prochlorper 2022- No Kelse y azine 2-15 06-01 Seybold Maleate 5 00:00: 00:00 - MG oral 00 :00 Externa Tablet l apixaban Yes Cerebral 2.5mg Take 1 Un devante (Eliquis) 2-13 venous tablet ity of 2.5 mg 00:00: sinus (2.5 mg) [place] tablet 00 thrombosis by mouth MD every 12 Anderso (twelve) n hours. Cancer Center prochlorper Yes Nausea 5mg Take 1 Un devante azine 2-13 tablet (5 ity of (Compazine) 00:00: mg) [place] 5 mg tablet 00 mouth MD every 8 Anderso (eight) n hours as Cancer needed for Center nausea. prochlorper Yes Nausea 5mg Take 1 Un [place]ante azine 2-13 tablet (5 ity of (Compazine) 00:00: mg) [place] 5 mg tablet 00 mouth MD every 8 Anderso (eight) n hours as Cancer needed for Center nausea. prochlorper 2022- No Nausea 5mg Take 1 U nivers azine 2-13 08-21 tablet (5 ity of (Compazine) 00:00: 00:00 mg) by [place] as 5 mg tablet 00 :00 mouth MD every 8 Anderso (eight) n hours as Cancer needed for Center nausea. apixaban 2022- No Cerebral 2.5mg Take 1 U nivers (Eliquis) 2-13 05-10 venous tablet ity o f 2.5 mg 00:00: 00:00 sinus (2.5 mg) [place] tablet 00 :00 thrombosis by mouth MD every 12 Anderso (twelve) n hours. [facility] Center apixaban 2022- No Cerebral 2.5mg Take 1 U nivers (Eliquis) 07-31 05-10 venous tablet ity o f 2.5 mg 00:00: 00:00 sinus (2.5 mg) [place] tablet 00 :00 thrombosis by mouth MD every 12 Anderso (twelve) n hours. [facility] Center traMADol 2022- No pain 50mg Take 1 Univer s (ULTRAM) 50 07-27-17 tablet (50 i ty of mg tablet 00:00: 00:00 mg) by [place] 00 :00 mouth MD daily. Anderso Take only n if needed Cancer and Center decrease use as pain improves traMADol 2022- No pain 50mg Take 1 Univer s (ULTRAM) 50 07-27-17 tablet (50 i ty of mg tablet 00:00: 00:00 mg) by [place] 00 :00 mouth MD daily. Anderso Take only n if needed Cancer and Center decrease use as pain improves traMADol 2022- No pain 50mg Take 1 Univer s (ULTRAM) 50 07-27-17 tablet (50 i ty of mg tablet 00:00: 00:00 mg) by [place] 00 :00 mouth MD daily. Anderso Take only n if needed Cancer and Center decrease use as pain improves ALBUTEROL Yes [id number] INHALE TWO More HFA 108 (90 1-20 PUFFS BY Seyb old Base) 00:00: MOUTH - MCG/ACT IN 00 EVERY 6 [employer] a AERS HOURS l NEEDED FOR WHEEZING ALBUTEROL Yes [id number] INHALE TWO More HFA 108 (90 1-20 PUFFS BY Seyb [employer]) 00:00: MOUTH - MCG/ACT IN 00 EVERY 6 [employer] a AERS HOURS l NEEDED FOR WHEEZING ALBUTEROL Yes [id number] INHALE TWO More HFA 108 (90 1-20 PUFFS BY Seyb [employer]) 00:00: MOUTH - MCG/ACT IN 00 EVERY 6 [employer] a AERS HOURS l NEEDED FOR WHEEZING ALBUTEROL Yes [id number] INHALE TWO More HFA 108 (90 1-20 PUFFS BY Seyb [employer]) 00:00: MOUTH - MCG/ACT IN 00 EVERY 6 [employer] a AERS HOURS l NEEDED FOR WHEEZING gabapentin 2022- No Postoperati Take 1 Univers (NEURONTIN) 06-30 ve pain capsule i ty of 100 mg 00:00: 05:59 (100 mg) [place] capsule 00 :00 by mouth 3 MD (three) Anderso times a n day for 7 Cancer days, THEN Center 1 capsule (100 mg) twice daily for 7 days, THEN 1 capsule (100 mg) daily for 7 days. gabapentin 2022- No Postoperati Take 1 Univers (NEURONTIN) 06-30 ve pain capsule i ty of 100 mg 00:00: 05:59 (100 mg) [place] capsule 00 :00 by mouth 3 MD (three) Anderso times a n day for 7 Cancer days, THEN Center 1 capsule (100 mg) twice daily for 7 days, THEN 1 capsule (100 mg) daily for 7 days. gabapentin 2022- No Postoperati Take 1 Univers (NEURONTIN) 06-30 ve pain capsule i ty of 100 mg 00:00: 05:59 (100 mg) [place] capsule 00 :00 by mouth 3 MD (three) Anderso times a n day for 7 Cancer days, THEN Center 1 capsule (100 mg) twice daily for 7 days, THEN 1 capsule (100 mg) daily for 7 days. Albuterol Yes [id number] 2.5mg Q4H Take 2.5 More Sulfate 2.5 1-05 mg by Seybold MG/0.5ML 00:00: nebulizati - inhalation 00 on every 4 Ext nikita Inhalant hours as l Solution needed for wheezing Albuterol Yes [id number] 2.5mg Q4H Take 2.5 More Sulfate 2.5 1-05 mg by Seybold MG/0.5ML 00:00: nebulizati - inhalation 00 on every 4 Ext nikita Inhalant hours as l Solution needed for wheezing Albuterol Yes [id number] 2.5mg Q4H Take 2.5 More Sulfate 2.5 1-05 mg by Seybold MG/0.5ML 00:00: nebulizati - inhalation 00 on every 4 Ext nikita Inhalant hours as l Solution needed for wheezing Albuterol Yes [id number] 2.5mg Q4H Take 2.5 More Sulfate 2.5 1-05 mg by Seybold MG/0.5ML 00:00: nebulizati - inhalation 00 on every 4 Ext nikita Inhalant hours as l Solution needed for wheezing Amoxicillin 2022- No [id number] 1{tbl} Take 1 More -Pot 1-05 -19 tablet by Seybold Clavulanate 00:00: 00:00 mouth 2 - (Augmentin) 00 :00 times Externa 500-125 MG daily l oral Tablet methylPREDN 2022- No [id number] 1{sunil} Take 1 sunil More ISolone 4 [...] - 17 Externa l Gabapentin 2021-06 Yes [id number] 100mg Take 1 More 100 MG oral 2-30 [id number] capsule Seyb old Capsule 00:00: (100 mg - 00 total) by Externa mouth 3 l times daily Tramadol 2021-06 Yes [id number] 50mg Take 1 More HCl 50 MG 2-30 [id number] tablet (50 Sey bold oral Tablet 00:00: mg total) - 00 by mouth 2 Externa times l daily Amoxicillin 2021-06 Yes [id number] 1{tbl} Take 1 More -Pot 2-30 tablet by Seybold Clavulanate 00:00: mouth 2 - (Augmentin) 00 times Externa 500-125 MG daily l oral Tablet Gabapentin 2021-06 Yes [id number] 100mg Take 1 More 100 MG oral 2-30 capsule Seyb old Capsule 00:00: (100 mg - 00 total) by Externa mouth 3 l times daily Gabapentin 2021-06- No [id number] 100mg Take 1 More 100 MG oral 2-30 11-16 capsule Sey bold Capsule 00:00: 00:00 (100 mg - 00 :00 total) by Externa mouth 3 l times daily Tramadol 2021-06- No [id number] 50mg Take 1 More HCl 50 MG 2-30 10-04 tablet (50 Se ybold oral Tablet 00:00: 00:00 mg total) - 00 :00 by mouth 2 Externa times l daily Azithromyci 2021-06- No [id number] Take 2 More n 250 MG 2-30 - tablets by Seyb old oral Tablet 00:00: 00:00 mouth on - 00 :00 day 1 then Externa 1 tablet l by mouth daily for 4 days thereafter . Azithromyci 2021-06- No [id number] Take 2 More n 250 MG 2-30 - tablets by Seyb old oral Tablet 00:00: 05:59 mouth on - 00 :00 day 1 then Externa 1 tablet l by mouth daily for 4 days thereafter . Atorvastati 2021-06 Yes [id number] 40mg Take 1 More n Calcium 2-22 tablet (40 Seyb old 40 MG oral 00:00: mg total) - Tablet 00 by mouth Externa daily l lidocaine 2021-06 Yes Adenocarcin 1{patch Place 1 Univers (LIDODERM) 2-13 muriel, NOS of } patch on ity of 5% (700 00:00: upper lobe, the skin [place] mg/patch) 00 lung <Left> daily. Noe Pollard transdermal Remove & Kishore rso patch Discard n patch Cancer within 12 Center hours or as directed by . Remove old patch(es) before replacing [...] old patch(es) before replacing new patch(es). lidocaine 2021-06- No Adenocarcin 1{patch Place 1 Univers (LIDODERM) 2 0821 muriel, NOS of } patch on ity of 5% (700 00:00: 00:00 upper lobe, the skin [place] mg/patch) 00 :00 lung <Left> daily. M D transdermal Remove [...] n needed for Cancer constipati Center on. senna-docus 2021-06 Yes Adenocarcin 2{tbl} Take 2 Univers ate 2-12 muriel, NOS of tablets by it y of (SENOKOT-S) 00:00: upper lobe, mouth 2 [place] 8.6 mg-50 00 lung <Left> (two) MD mg tablet times a Anderso day as n needed for Cancer constipati Center on. senna-docus 2021-06 Yes Adenocarcin 2{tbl} Take 2 [...] MG oral 00 Externa Tablet l Acetaminoph 2021-06- No Kelse y en Extra 07-30 Seybold Strength 00:00: 00:00 - 500 MG oral 00 :00 Externa Tablet l apixaban 2021-06- No Adenocarcin 5mg Take 1 Univers (Eliquis) 5 07-3013 muriel of left tablet (5 ity of mg tablet 00:00: 00:00 lung mg) by [place] 00 :00 mouth MD every 12 Anderso (twelve) n hours. [facility] apixaban 2021-06- No Adenocarcin 5mg Take 1 Univers (Eliquis) 5 07-30 muriel of left tablet (5 ity of mg tablet 00:00: 00:00 lung mg) by [place] 00 :00 mouth MD every 12 Anderso (twelve) n hours. [facility] apixaban 2021-06- No Adenocarcin 5mg Take 1 Univers (Eliquis) 5 07-30 muriel of left tablet (5 ity of mg tablet 00:00: 00:00 lung mg) by [place] 00 :00 mouth MD every 12 Anderso (twelve) n hours. [facility] traMADol 2021-06- No pain 50mg Take 1 Univer s (ULTRAM) 50 07-30 tablet (50 i ty of mg tablet 00:00: 00:00 mg) by [place] 00 :00 mouth MD every 6 Anderso (six) n hours as Cancer needed for Center moderate pain. Take only if needed and decrease use as pain improves traMADol 2021-06- No pain 50mg Take 1 Univer s (ULTRAM) 50 07-30 tablet (50 i ty of mg tablet 00:00: 00:00 mg) by [place] 00 :00 mouth MD every 6 Anderso (six) n hours as Cancer needed for Center moderate pain. Take only if needed and decrease use as pain improves traMADol 2021-06- No pain 50mg Take 1 Univer s (ULTRAM) 50 07-30 tablet (50 i ty of mg tablet 00:00: 00:00 mg) by [place] 00 :00 mouth MD every 6 Anderso [...] mg) every morning for 7 days. gabapentin 2021-06 No Adenocarcin Take 1 Univers (NEURONTIN) 07-30 [...] mg) every morning for 7 days. gabapentin 2021-06 No Adenocarcin Take 1 [facility] (NEURONTIN) 07-30 [...] mg) every morning for 7 days. Tramadol 2021-06 No 50mg Q.25D Take 50 mg K elsey HCl 50 MG 07-30 by mouth Seybo ld oral Tablet 00:00: 00:00 every 6 - 00 :00 hours as Externa needed l Gabapentin 2021-06 No Take by Jarrett sey 100 MG oral 07-30 mouth Seybol d Capsule 00:00: 00:00 - 00 :00 Externa l acetaminoph 2021-06 No Adenocarcin 1000mg Take 2 Univers en 07-30 muriel, NOS of tablets ity of (TYLENOL) 00:00: 05:59 upper lobe, (1,000 mg) [place] 500 mg 00 :00 lung <Left> by mouth MD tablet every 6 Anderso (six) n hours for Cancer 10 days. [place] acetaminoph 2022-1 2022- No Adenocarcin 1000mg Take 2 Univers en 07-30 muriel, NOS of tablets ity of (TYLENOL) 00:00: 05:59 upper lobe, (1,000 mg) [place] 500 mg 00 :00 lung <Left> by mouth MD tablet every 6 Anderso (six) n hours for Cancer 10 days. [place] acetaminoph 2021-06- No Adenocarcin 1000mg Take 2 Univers en 07-30 muriel, NOS of tablets ity of (TYLENOL) 00:00: 05:59 upper lobe, (1,000 mg) [place] 500 mg 00 :00 lung <Left> by mouth MD tablet every 6 Anderso (six) n hours for Cancer 10 days. [place] ProAir HFA 2021-06 Yes [id number] INHALE TWO More 108 (90 2-07 PUFFS BY Seybold Base) 00:00: MOUTH - MCG/ACT 00 EVERY 6 Externa inhalation HOURS l Aerosol NEEDED FOR Solution WHEEZING Sennosides 2021-06 Yes 1{tbl} Take 1 Jarrett sey 8.6 MG oral 1-16 tablet by Sey bold Tablet 13:13: mouth - 53 Externa l Acetaminoph 2021-06 Yes [id number] 1{tbl} Q4H Take 1 More en-Codeine 1-16 [id number] tablet by Se ybold 300-30 MG 00:00: mouth - oral Tablet 00 every 4 Exter na hours as l needed for pain Scopolamine 2021-06 Yes [id number] 1{patch Place 1 More (TRANSDERM- 1-16 } patch onto Se ybold SCOP) 1 00:00: the skin - MG/3DAYS 00 every 72 Externa transdermal hours as l PATCH 72 HR needed Promethazin 2021-06 Yes [id number] 25mg Q.25D Take 1 More e HCl 25 MG 1-16 tablet (25 Se ybold oral Tablet 00:00: mg total) - 00 by mouth Externa every 6 l hours as needed for nausea Acetaminoph 2021-06 Yes [id number] 1{tbl} Q4H Take 1 More en-Codeine 1-16 [id number] tablet by Se ybold 300-30 MG 00:00: mouth - oral Tablet 00 every 4 Exter na hours as l needed for pain Scopolamine 2021-06 Yes [id number] 1{patch Place 1 More (TRANSDERM- 1-16 } patch onto Se ybold SCOP) 1 00:00: the skin - MG/3DAYS 00 every 72 Externa transdermal hours as l PATCH 72 HR needed Promethazin 2021-06 Yes [id number] 25mg Q.25D Take 1 More e HCl 25 MG 1-16 tablet (25 Se ybold oral Tablet 00:00: mg total) - 00 by mouth Externa every 6 l hours as needed for nausea Scopolamine 2021-06 Yes [id number] 1{patch Place 1 More (TRANSDERM- 1-16 } patch onto Se ybold SCOP) 1 00:00: the skin - MG/3DAYS 00 every 72 Externa transdermal hours as l PATCH 72 HR needed Promethazin 2021-06 Yes [id number] 25mg Q.25D Take 1 More e HCl 25 MG 1-16 tablet (25 Se ybold oral Tablet 00:00: mg total) - 00 by mouth Externa every 6 l hours as needed for nausea Scopolamine 2021-06- No [id number] 1{patch Place 1 More (TRANSDERM- 1-16 06- } patch onto S eybold SCOP) 1 00:00: 00:00 the skin - MG/3DAYS 00 :00 every 72 Externa transdermal hours as l PATCH 72 HR needed Promethazin 2021-06- No [id number] 25mg Q.25D Take 1 More e HCl 25 MG 1-16 06- tablet (25 S eybold oral Tablet 00:00: 00:00 mg total) - 00 :00 by mouth Externa every 6 l hours as needed for nausea acetaminoph 2021-06- No Unive rs en-codeine 07-03- ity of (TYLENOL 00:00: 00:00 [place] #3) 300 00 :00 MD mg-30 mg Anderso tablet n [facility] acetaminoph 2021-06- No Unive rs en-codeine 07-03-12 ity of (TYLENOL 00:00: 00:00 [place] #3) 300 00 :00 MD mg-30 mg Anderso tablet n [facility] acetaminoph 2021-06- No Unive rs en-codeine 07-03- ity of (TYLENOL 00:00: 00:00 [place] #3) 300 00 :00 MD mg-30 mg Anderso tablet [facility] 2021-06- No Unive rs e 07-03 ity of (PHENERGAN) 00:00: 00:00 [place] 25 mg 00 :00 MD tablet Anderso [facility] scopolamine 2021-06- No Unive rs (TRANSDERM- 07-03 ity of SCOP) 1.5 00:00: 00:00 [place] mg 00 :00 MD transdermal [facility] Unive rs e 07-03 ity of (PHENERGAN) 00:00: 00:00 [place] 25 mg 00 :00 MD tablet Anderso [facility] scopolamine 2021-06- No Unive rs (TRANSDERM- 07-03 ity of SCOP) 1.5 00:00: 00:00 [place] mg 00 :00 MD transdermal [facility] No Unive rs e 07-03 ity of (PHENERGAN) 00:00: 00:00 [place] 25 mg 00 :00 MD tablet Anderso [facility] scopolamine 2021-06- No Unive rs (TRANSDERM- 07-03 ity of SCOP) 1.5 00:00: 00:00 [place] mg 00 :00 MD transdermal Anderso patch [facility] esomeprazol 2021-06 Yes 40mg Take 40 mg Univers e (NexIUM) 0-28 by mouth ity o f 40 MG 13:19: every [place] capsule 53 morning [facility] breakfast. [facility] senna 2021-06 Yes 1{tbl} Take 1 Univers (SENOKOT) 0-28 tablet by ity o f 8.6 mg 13:19: mouth. [place] [facility]06 Yes More (ZOFRAN) 8 0-25 [...] - Tablet 00 daily Externa l cholecalcif 2021-06 No 1000U Take 1,000 Univers rick, 0-03 10-03 Units by ity of vitamin D3, 08:19: 00:00 mouth [place] 25 mcg 45 :00 daily. (1,000 Anderso unit) [facility] cholecalcif 2021-06- No 1000U Take 1,000 Univers rick, 0-03 10-03 Units by ity of vitamin D3, 08:19: 00:00 mouth [place] 25 mcg 45 :00 daily. (1,000 Anderso unit) [facility] cholecalcif 2021-06- No 1000U Take 1,000 Univers rick, 0-03 10-03 Units by ity of vitamin D3, 08:19: 00:00 mouth [place] 25 mcg 45 :00 daily. (1,000 Anderso unit) [facility] budesonide- 2021-06- No Inhale by Univers formoterol 0-03 10-03 mouth ity of (SYMBICORT) 08:19: 00:00 twice [place] 160-4.5 39 :00 daily. MD ezio Walter on inhaler n [facility] budonide- 2021-06- No Inhale by Univers formoterol 0-03 10-03 mouth ity of (SYMBICORT) 08:19: 00:00 [place] 160-4.5 39 :00 daily. MD ezio Walter on inhaler [facility] budesonide- 2021-06- No Inhale by Univers formoterol 0-03 10-03 mouth ity of (SYMBICORT) 08:19: 00:00 twice [place] 160-4.5 39 :00 daily. MD ezio Walter on inhaler [facility] ascorbic 2021-06- No 500mg Take 500 Uni vers acid 0-03 10-03 mg by ity of (VITAMIN C) 08:19: 00:00 mouth [place] 500 mg 14 :00 daily. MD ocampo [facility] ascorbic 2021-06 No 500mg Take 500 Uni vers acid 0-03 10-03 mg by ity of (VITAMIN C) 08:19: 00:00 mouth [place] 500 mg 14 :00 daily. [facility] ascorbic 2021-06 No 500mg Take 500 Uni vers acid 0-03 10-03 mg by ity of (VITAMIN C) 08:19: 00:00 mouth [place] 500 mg 14 :00 daily. MD ocampo [facility] calcium 2021-06- No 1{tbl} Take 1 Unive rs carbonate 0-03 10-03 tablet by ity of (CALCIUM 08:19: 00:00 mouth [place] 500 ORAL) 01 :00 daily. MD Walter [facility] calcium 2021-06 No 1{tbl} Take 1 Unive rs carbonate 0-03 10-03 tablet by ity of (CALCIUM 08:19: 00:00 mouth [place] 500 ORAL) 01 :00 daily. MD Walter [facility] calcium 2021-06- No 1{tbl} Take 1 Unive rs carbonate 0-03 10-03 tablet by ity of (CALCIUM 08:19: 00:00 mouth [place] 500 ORAL) 01 :00 daily. MD Jose Angel wiseman [facility] baclofen Yes 3 (three) Univ ers (LIORESAL) 03-10 times a ity of 10 mg 00:00: day as [place] tablet 00 needed. MD Jose Angel wiseman [facility] Baclofen Yes [id number] 10mg Take 1 More MG oral -23 tablet (10 Seybol d Tablet 00:00: mg total) - 00 by mouth 3 Externa times l daily Baclofen 10 Yes [id number] 10mg Take 1 Omre MG oral 9-23 tablet (10 Seybol d Tablet 00:00: mg total) - 00 by mouth 3 Externa times l daily Baclofen 10 2022- No [id number] 10mg Take 1 More MG oral 03-10-19 tablet (10 Seybo ld Tablet 00:00: 00:00 mg total) - 00 :00 by mouth 3 Externa times l daily baclofen 2022- No 3 (three) Uni vers (LIORESAL) 03-10-28 times a ity o f 10 mg 00:00: 00:00 day as [place] tablet 00 :00 needed. MD Jose Angel wiseman [facility] baclofen 2022- No 3 (three) Uni vers (LIORESAL) 03-10- times a ity o f 10 mg 00:00: 00:00 day as [place] tablet 00 :00 needed. MD Jose Angel wiseman [facility] baclofen 2022- No 3 (three) Uni vers (LIORESAL) 03-10-28 times a ity o f 10 mg 00:00: 00:00 day as [place] tablet 00 :00 needed. MD Jose Angel wiseman [facility] atorvastati Yes Univer s n (LIPITOR) 03-07 ity of 40 mg 00:00: [place] tablet 00 MD Jose Angel wiseman [facility] atorvastati 2022- No 40mg Take 1 Uni vers n (LIPITOR) 03-07 03-06 tablet (40 i ty of 40 mg 00:00: 00:00 mg) by [place] tablet 00 :00 mouth at MD bedtime. [facility] atorvastati 2022- No 40mg Take 1 Uni vers n (LIPITOR) 03-07- tablet (40 i ty of 40 mg 00:00: 00:00 mg) by [place] tablet 00 :00 mouth at MD bedtime. [facility] atorvastati 2022- No 40mg Take 1 Uni vers n (LIPITOR) 03-07 tablet (40 i ty of 40 mg 00:00: 00:00 mg) by [place] tablet 00 :00 mouth at MD bedtime. [facility] esomeprazol Yes 40mg Take 40 mg Univers e (NexIUM) 912 by mouth ity o f 40 MG 09:22: every [place] capsule 18 morning MD before Anderso breakfast. [facility] calcium Yes 1{tbl} Take 1 Univer s carbonate -12 tablet by ity o f (CALCIUM 09:22: mouth [place] 500 ORAL) 18 daily. MD Walter [facility] cholecalcif Yes 1000U Take 1,000 Univers rick, 9-12 Units by ity of vitamin D3, 09:22: mouth [place] 25 mcg 18 daily. (1,000 Anderso unit) bowen capsule [facility] ascorbic Yes 500mg Take 500 Univ ers acid 9-12 mg by ity of (VITAMIN C) 09:22: mouth [place] 500 mg 18 daily. tablet [facility] budesonide- Yes Inhale by U nivers formoterol 9-12 mouth ity of (SYMBICORT) 09:22: twice [place] 160-4.5 18 daily. mcg/acturosalia Walter on inhaler [facility] apixaban Yes Adenocarcin 5mg Take 1 Univers (Eliquis) 5 9-12 muriel of left tablet (5 ity of mg tablet 00:00: lung mg) by [place] 00 mouth every 12 Anderso (twelve) n hours. [facility] fluticasone Yes Simple 1{puff} Inhale 1 Univers propion-funmi 9-12 chronic puff by it y of meteroL 00:00: bronchitis mouth [place] 232-14 00 twice MD mcg/actuati daily. [facility] apixaban 0 Yes Adenocarcin 5mg Take 1 Univers (Eliquis) 5 -12 muriel of left tablet (5 ity of mg tablet 00:00: lung mg) by [place] 00 mouth MD every 12 Anderso (twelve) n hours. [facility] fluticasone Yes Simple 1{puff} Inhale 1 Univers propion-funmi 02-27 chronic puff by it y of meteroL 00:00: bronchitis mouth [place] 232-14 00 twice MD mcg/actuati daily. [facility] Apixaban 5 0 Yes 5mg 5 mg More MG oral 02-27 [place] Tablet 00:00: - 00 Externa l Apixaban 5 2021-0 Yes 5mg 5 mg More MG oral 02-27 [place] Tablet 00:00: - 00 Externa l Apixaban 5 2021-0 Yes 5mg 5 mg More MG oral 02-27 [place] Tablet 00:00: - 00 Externa l Apixaban 5 2021-0 3- No 5mg 5 mg More MG oral 02-27 06 Seybold Tablet 00:00: 00:00 - 00 :00 Externa l apixaban 2021-0 202- No Adenocarcin 5mg Take 1 Univers (Eliquis) 5 02-27 12-12 muriel of left tablet (5 ity of mg tablet 00:00: 00:00 lung mg) by [place] 00 :00 mouth every 12 Anderso (twelve) n hours. [facility] apixaban 0 2021- No Adenocarcin 5mg Take 1 Univers (Eliquis) 5 02-27 12-12 muriel of left tablet (5 ity of mg tablet 00:00: 00:00 lung mg) by [place] 00 :00 mouth every 12 Anderso (twelve) n hours. [facility] apixaban 0 2021- No Adenocarcin 5mg Take 1 Univers (Eliquis) 5 02-27 12-12 muriel of left tablet (5 ity of mg tablet 00:00: 00:00 lung mg) by [place] 00 :00 mouth MD every 12 Anderso (twelve) n hours. [facility] fluticasone 2021- No Simple 1{puff} Inhale 1 Univers propion-funmi 02-27 chronic puff by i ty of meteroL 00:00: 00:00 bronchitis mouth [place] 232-14 00 :00 twice MD mcg/actuati daily. Darryl o on [facility] fluticasone 2021- No Simple 1{puff} Inhale 1 Univers propion-funmi 02-27 chronic puff by i ty of meteroL 00:00: 00:00 bronchitis mouth [place] 232-14 00 :00 twice MD mcg/actuati daily. Darryl o on [facility] fluticasone 2021- No Simple 1{puff} Inhale 1 Univers propion-funmi 02-27 chronic puff by i ty of meteroL 00:00: 00:00 bronchitis mouth [place] 232-14 00 :00 twice MD mcg/actuati daily. Darryl o on [facility] folic acid Yes Adenocarcin 400ug Take 1 Univers (FOLVITE) 02-24 muriel, NOS of tablet i ty of 400 mcg 00:00: upper lobe, (400 mcg) [place] tablet 00 lung <Left> by mouth daily. [facility] folic acid Yes Adenocarcin 400ug Take 1 Univers (FOLVITE) 02-24 muriel, NOS of tablet i ty of 400 mcg 00:00: upper lobe, (400 mcg) [place] tablet 00 lung <Left> by mouth daily. [facility] dexamethaso Yes Adenocarcin 4mg Take 1 Univers ne 02-24 muriel, NOS of tablet (4 ity of (DECADRON) 00:00: upper lobe, mg) by [place] 4 mg tablet 00 lung <Left> mouth twice Anderso daily. n Take on Cancer days 2, 3, Center and 4 of each chemothera py cycle ondansetron Yes Adenocarcin 8mg Take 1 Univers (ZOFRAN) 8 02-24 muriel, NOS of tablet (8 ity of mg tablet 00:00: upper lobe, mg) by [place] 00 lung <Left> mouth MD every 8 Anderso (eight) n hours as Cancer needed for Center nausea or vomiting. folic acid Yes Adenocarcin 400ug Take 1 Univers (FOLVITE) 02-24 muriel, NOS of tablet i ty of 400 mcg 00:00: upper lobe, (400 mcg) [place] tablet 00 lung <Left> by mouth MD daily. [facility] dexamethaso Yes Adenocarcin 4mg Take 1 Univers ne 02-24 muriel, NOS of tablet (4 ity of (DECADRON) 00:00: upper lobe, mg) by [place] 4 mg tablet 00 lung <Left> mouth [...] 00 lung <Left> by mouth MD daily. [facility] folic acid Yes Adenocarcin 400ug Take 1 Univers (FOLVITE) 02-24 mureil, NOS of tablet i ty of 400 mcg 00:00: upper lobe, (400 mcg) [place] tablet 00 lung <Left> by mouth MD daily. [facility] Folic Acid Yes 400ug Take 400 [place] 400 MCG 9-09 mcg by [place] oral Tablet 00:00: mouth - 00 daily Externa l Folic Acid Yes 400ug Take 400 [place] 400 MCG 9-09 mcg by [place] oral Tablet 00:00: mouth - 00 daily Externa l Folic Acid 0 Yes 400ug Take 400 [place] 400 MCG 9-09 mcg by Seybold oral Tablet 00:00: mouth - 00 daily Externa l Folic Acid 0 Yes 400ug Take 400 [place] 400 MCG 9-09 mcg by [place]bold oral Tablet 00:00: mouth - 00 daily Externa l Folic Acid Yes 400ug Take 1 Cony ey 400 MCG 02-24 tablet Seybold oral Tablet 00:00: (400 mcg - 00 total) by Externa mouth l daily Folic Acid Yes 400ug Take 1 Cony ey 400 MCG 02-24 tablet Seybold oral Tablet 00:00: (400 mcg - 00 total) by Externa mouth l daily dexamethaso 2021- No Adenocarcin 4mg Take 1 Univers ne 02-24 muriel, NOS of tablet (4 it y of (DECADRON) 00:00: 00:00 upper lobe, mg) by [place] 4 mg tablet 00 :00 lung <Left> mouth MD twice Anderso daily. n Take on Cancer days 2, 3, Center and 4 of each chemothera py cycle ondansetron 2021- No Adenocarcin 8mg Take 1 Univers (ZOFRAN) 8 02-24 muriel, NOS of tablet (8 ity of mg tablet 00:00: 00:00 upper lobe, mg) by [place] 00 :00 lung <Left> mouth MD every 8 Anderso (eight) n hours as Cancer needed for Center nausea or vomiting. dexamethaso 2021- No Adenocarcin 4mg Take 1 Univers ne 02-24 muriel, NOS of tablet (4 it y of (DECADRON) 00:00: 00:00 upper lobe, mg) by [place] 4 mg tablet 00 :00 lung <Left> mouth MD twice Anderso daily. n Take on Cancer days 2, 3, Center and 4 of each chemothera py cycle ondansetron 2021- No Adenocarcin 8mg Take 1 Univers (ZOFRAN) 8 02-24 muriel, NOS of tablet (8 ity of mg tablet 00:00: 00:00 upper lobe, mg) by [place] 00 :00 lung <Left> mouth MD every 8 Anderso (eight) n hours as Cancer needed for Center nausea or vomiting. dexamethaso 2021- No Adenocarcin 4mg Take 1 Univers ne 02-24 muriel, NOS of tablet (4 it y of (DECADRON) 00:00: 00:00 upper lobe, mg) by [place] 4 mg tablet 00 :00 lung <Left> mouth MD twice Anderso daily. n Take on Cancer days 2, 3, Center and 4 of each chemothera py cycle ondansetron 2021- No Adenocarcin 8mg Take 1 Univers (ZOFRAN) 8 02-24 11-22 muriel, NOS of tablet (8 ity of mg tablet 00:00: 00:00 upper lobe, mg) by [place] 00 :00 lung <Left> mouth MD every 8 Anderso (eight) n hours as Cancer needed for Center nausea or vomiting. apixaban 2021- No Adenocarcin 5mg Take 1 Univers (Eliquis) 5 02-23-12 muriel of left tablet (5 ity of mg tablet 00:00: 00:00 lung mg) by [place] 00 :00 mouth MD every 12 Anderso (twelve) n hours. [facility] apixaban 2021- No Adenocarcin 5mg Take 1 Univers (Eliquis) 5 02-23-12 muriel of left tablet (5 ity of mg tablet 00:00: 00:00 lung mg) by [place] 00 :00 mouth MD every 12 Anderso (twelve) n hours. [facility] apixaban 2021- No Adenocarcin 5mg Take 1 Univers (Eliquis) 5 02-23-12 muriel of left tablet (5 ity of mg tablet 00:00: 00:00 lung mg) by [place] 00 :00 mouth MD every 12 Anderso (twelve) n hours. [facility] apixaban 2021- No Adenocarcin 5mg Take 1 Univers (Eliquis) 5 02-23-12 muriel of left tablet (5 ity of mg tablet 00:00: 00:00 lung mg) by [place] 00 :00 mouth MD every 12 Anderso [...] Apply 1 Univers 21 mg/24 hr 8- dependence patch to ity of transdermal 00:00: 00:00 skin and [place] patch 00 :00 change MD patch Anderso daily as n directed Cancer for Center tobacco cessation (alternate sites). Nicorette 2 2021- No Nicotine 2mg Dissolve 1 Univers mg mini 02-07- dependence lozenge (2 ity of lozenge 00:00: 00:00 mg) in the [place] as 00 :00 mouth MD every 2 Anderso (two) n hours as Cancer needed for Center smoking cessation. Avoid acidic beverages during, 5 min before/aft er use Nicoderm CQ 2021- No Nicotine Apply 1 Univers 21 mg/24 hr 8-22 dependence patch to ity of transdermal 00:00: 00:00 skin and [place] patch 00 :00 change MD patch Anderso daily as n directed Cancer for Center tobacco cessation (alternate sites). Nicorette 2 2021- No Nicotine 2mg Dissolve 1 Univers mg mini 8 11-22 dependence lozenge (2 ity of lozenge 00:00: [...] Center tobacco cessation (alternate sites). Nicorette 2 No Nicotine 2mg Dissolve 1 Univers mg mini 02-07 dependence lozenge (2 ity of lozenge 00:00: 00:00 mg) in the [place] as 00 :00 mouth MD every 2 Anderso (two) n hours as Cancer needed for Center smoking cessation. Avoid acidic beverages during, 5 min before/aft er use FLUTICASONE Yes [id number] SPRAY 1 More PROPIONATE, 8-17 SPRAY INTO Se ybold NASAL, 50 00:00: EACH - MCG/ACT 00 NOSTRIL Externa nasal EVERY DAY l Suspension FLUTICASONE 0 Yes [id number] SPRAY 1 More PROPIONATE, 8-17 SPRAY INTO Se ybold NASAL, 50 00:00: EACH - MCG/ACT 00 NOSTRIL Externa nasal EVERY DAY l Suspension FLUTICASONE 0 Yes [id number] SPRAY 1 More PROPIONATE, 8-17 SPRAY INTO Se ybold NASAL, 50 00:00: EACH - MCG/ACT 00 NOSTRIL Externa nasal EVERY DAY l Suspension FLUTICASONE 0 2022- No [id number] SPRAY 1 More PROPIONATE, 8-17 06-01 SPRAY INTO S eybold NASAL, 50 00:00: 00:00 EACH - MCG/ACT 00 :00 NOSTRIL Externa nasal EVERY DAY l Suspension apixaban Yes Adenocarcin Take 2 Univers (Eliquis 7-25 muriel of left tablets by ity of DVT-PE 00:00: lung mouth [place] Treat 30D 00 twice MD Start) 5 mg daily for And erso (74 tabs) 7 days, n tablet then take Cancer 1 tablet Center by mouth twice daily thereafter . 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 apixaban 2021- No Adenocarcin Take 2 Univers (Eliquis 7- 12-12 muriel of left tablets by ity of DVT-PE 00:00: 00:00 lung mouth [place] Treat 30 00 :00 twice MD Start) 5 mg daily for And erso (74 tabs) 7 days, n tablet then take Cancer 1 tablet Center by mouth twice daily thereafter . apixaban 2021- No Adenocarcin Take 2 Univers (Eliquis 01-09 12-12 muriel of left tablets by ity of DVT-PE 00:00: 00:00 lung mouth [place] Treat 30 00 :00 twice MD Start) 5 mg daily for And erso (74 tabs) 7 days, n tablet then take Cancer 1 tablet Center by mouth twice daily thereafter . apixaban 2021- No Adenocarcin Take 2 Univers (Eliquis 01-09 12-12 muriel of left tablets by ity of DVT-PE 00:00: 00:00 lung mouth [place] Treat 30 00 :00 twice MD Start) 5 mg daily for And erso (74 tabs) 7 days, n tablet then take Cancer 1 tablet Center by mouth twice daily thereafter . apixaban 2021- No Adenocarcin 5mg Take 1 Univers (Eliquis) 5 01-09-08 muriel of left tablet (5 ity of mg tablet 00:00: 00:00 lung mg) by [place] 00 :00 mouth MD every 12 Anderso (twelve) n hours. [facility] apixaban 2021- No Adenocarcin 5mg Take 1 Univers (Eliquis) 5 01-09-08 muriel of left tablet (5 ity of mg tablet 00:00: 00:00 lung mg) by [place] 00 :00 mouth MD every 12 Anderso (twelve) n hours. [facility] apixaban 2021- No Adenocarcin 5mg Take 1 Univers (Eliquis) 5 01-09-08 muriel of left tablet (5 ity of mg tablet 00:00: 00:00 lung mg) by [place] 00 :00 mouth MD every 12 Anderso (twelve) n hours. [facility] Center apixaban 2021-2021- No Adenocarcin 5mg Take 1 Univers (Eliquis) 5 01-09 muriel of left tablet (5 ity of mg tablet 00:00: 00:00 lung mg) by [place] 00 :00 mouth MD every 12 Anderso (twelve) n hours. Cancer Center aspirin 325 2021- No 325mg Take 325 Univers mg tablet 12-27-29 mg by ity of 20:19: 00:00 mouth. [place] 54 :00 MD Jose Angel [facility] aspirin 325 2021- No 325mg Take 325 Univers mg tablet 12-27-29 mg by ity of 20:19: 00:00 mouth. [place] 54 :00 MD Jose Angel [facility] aspirin 325 2021- No 325mg Take 325 Univers mg tablet 12-27 06-29 mg by ity of 20:19: 00:00 mouth. [place] 54 :00 MD Jose Angel wiseman [facility] [...] 90 00 MD mcg/puff [place] inhaler n [facility] albuterol Yes 2{puff} Inhale 2 U nivers (VENTOLIN 6-20 puffs by ity of HFA,PROAIR 00:00: mouth as [place] as HFA) 90 00 needed. MD mcg/puff [place] inhaler n [facility] Albuterol Yes [id number] 2{puff} Q.25D Inhale 2 More HFA (PROAIR [...] 00 :00 needed. MD mcg/puff [place] inhaler [facility] albuterol 2022- No 2{puff} Inhale 2 Univers (VENTOLIN 6-20 03-06 puffs by ity o f HFA,PROAIR 00:00: 00:00 mouth [place] HFA) 90 00 :00 needed. MD mcg/puff [place] inhaler [facility] albuterol 2022- No 2{puff} Inhale 2 Univers (VENTOLIN 6-20 03-06 puffs by ity o f HFA,PROAIR 00:00: 00:00 mouth as [place] HFA) 90 00 :00 needed. MD mcg/puff [place] inhaler [facility] fluticasone Yes 1{spray Inhale 1 Univers propionate 6-13 } spray into ity of (FLONASE) 00:00: each [place] 50 00 nostril as MD mcg/spray needed. Anderso nasal spray [facility] fluticasone Yes 1{spray Inhale 1 Univers propionate 6-13 } spray into ity of (FLONASE) 00:00: each [place] 50 00 nostril as MD mcg/spray needed. Anderso nasal spray [facility] fluticasone 2022- No 50ug Inhale 1 U nivers propionate 6-13 03-06 spray (50 ity of (FLONASE) 00:00: 00:00 mcg) into [place] 50 00 :00 each MD mcg/spray nostril as Kishore rso nasal spray needed. [facility] fluticasone 2022- No 50ug Inhale 1 U nivers propionate 6-13 03-06 spray (50 ity of (FLONASE) 00:00: 00:00 mcg) into [place] 50 00 :00 each MD mcg/spray nostril as Kishore rso nasal spray needed. [facility] fluticasone 2022- No 50ug Inhale 1 U nivers propionate 11-28 03-06 spray (50 ity of (FLONASE) 00:00: 00:00 mcg) into [place] 50 00 :00 each mcg/spray nostril as Kishore rso nasal spray needed. [facility] Alendronate Yes [id number] 70mg Take 1 More Sodium 70 6- tablet (70 Seyb old MG oral 00:00: mg total) - Tablet 00 by mouth Externa every 7 l days Alendronate Yes [id number] 70mg Take 1 More Sodium 70 6-01 tablet (70 Seyb old MG oral 00:00: mg total) - Tablet 00 by mouth Externa every 7 l days Alendronate Yes [id number] 70mg Take 1 More Sodium 70 6-01 tablet (70 Seyb old MG oral 00:00: mg total) Tablet 00 by mouth every 7 days Alendronate Yes [id number] 70mg Take 1 More Sodium 70 6-01 tablet (70 Seyb old MG oral 00:00: mg total) - Tablet 00 by mouth Externa every 7 l days Alendronate 2022- No [id number] 70mg Take 1 More Sodium 70 -06 23- tablet (70 Sey bold MG oral 00:00: 00:00 mg total) - Tablet 00 :00 by mouth Externa every 7 l days alendronate 2021- No 1{tbl} Take 1 U nivers (FOSAMAX) 11-16 tablet by ity of 70 mg 00:00: 00:00 mouth once [place] tablet 00 :00 a week. MD Jose Angel wiseman [facility] alendronate 2021- No 1{tbl} Take 1 U nivers (FOSAMAX) 11-16 tablet by ity of 70 mg 00:00: 00:00 mouth once [place] tablet 00 :00 a week. MD Jose Angel wiseman [facility] alendronate 2021- No 1{tbl} Take 1 U nivers (FOSAMAX) 11-16 tablet by ity of 70 mg 00:00: 00:00 mouth once [place] tablet 00 :00 a week. [facility] Fluticasone 2022-0 Yes 1{puff} Inhale 1 More -Salmeterol 5-16 puff into Sey bold 232-14 00:00: the lungs - MCG/ACT 00 2 times Externa inhalation daily l AEROSOL POWDER, BREATH ACTIVATED Fluticasone 2022-0 Yes 1{puff} Inhale 1 More -Salmeterol 5-16 puff into Sey bold 232-14 00:00: the lungs - MCG/ACT 00 2 times Externa inhalation daily l AEROSOL POWDER, BREATH ACTIVATED Fluticasone 2022-0 Yes 1{puff} Inhale 1 More -Salmeterol 5-16 puff into Sey bold 232-14 00:00: the lungs - MCG/ACT 00 2 times Externa inhalation daily l AEROSOL POWDER, BREATH ACTIVATED Fluticasone 2022-0 Yes 1{puff} Inhale 1 More -Salmeterol 5-16 puff into Sey bold 232-14 00:00: the lungs - MCG/ACT 00 2 times Externa inhalation daily l AEROSOL POWDER, BREATH ACTIVATED Fluticasone 2022-0 Yes 1{puff} Inhale 1 More -Salmeterol 5-16 puff into Sey bold 232-14 00:00: the lungs MCG/ACT 00 2 times inhalation daily AEROSOL POWDER, BREATH ACTIVATED Fluticasone 2022-0 Yes 1{puff} Inhale 1 More -Salmeterol 5-16 puff into Sey bold 232-14 00:00: the lungs MCG/ACT 00 2 times inhalation daily AEROSOL POWDER, BREATH ACTIVATED Fluticasone 2022-0 Yes 1{puff} Inhale 1 More -Salmeterol 5-16 puff into Sey bold 232-14 00:00: the lungs - MCG/ACT 00 2 times Externa inhalation daily l AEROSOL POWDER, BREATH ACTIVATED Fluticasone 2022-0 Yes 1{puff} Inhale 1 More -Salmeterol 5-16 puff into Sey bold 232-14 00:00: the lungs - MCG/ACT 00 2 times Externa inhalation daily l AEROSOL POWDER, BREATH ACTIVATED Fluticasone 2022-0 2023- No 1{puff} Inhale 1 More -Salmeterol 5-16 06-[address] [facility] 232-14 00:00: 00:00 the lungs - MCG/ACT 00 :00 2 times Externa inhalation daily l AEROSOL POWDER, BREATH ACTIVATED Fluticasone 2022- No 1{puff} Inhale 1 More -Salmeterol 5-16 06-[address] [facility] 232-14 00:00: 00:00 the lungs - MCG/ACT 00 :00 2 times Externa inhalation daily l AEROSOL POWDER, BREATH ACTIVATED fluticasone 2021- No 1{puff} Inhale 1 Univers propion-funmi 5-16 09-12 puff by ity of meteroL 00:00: 00:00 [place] [id number] 00 :00 twice MD mcg/actuati daily. Darryl o on [facility] fluticasone 2021- No 1{puff} Inhale 1 Univers propion-funmi 5-16 09-12 puff by ity of meteroL 00:00: 00:00 [place] [id number] 00 :00 twice MD mcg/actuati daily. Darryl o on [facility] fluticasone 2021- No 1{puff} Inhale 1 Univers propion-funmi 5-16 09-12 puff by ity of meteroL 00:00: 00:00 [place] [id number] 00 :00 twice MD mcg/actuati daily. Darryl o on [facility] fluticasone 2021- No 1{puff} Inhale 1 Univers propion-funmi 5-16 09-12 puff by ity of meteroL 00:00: 00:00 [place] [id number] 00 :00 twice MD mcg/actuati daily. Darryl o on [facility] FLUTICASONE Yes [id number] 50ug Use 1 More PROPIONATE, 5-13 spray (50 Sey bold NASAL, 50 00:00: mcg total) MCG/ACT 00 in each nasal nostril Suspension daily Fluticasone Yes 1{puff} Inhale 1 More -Salmeterol 4-28 puff into Sejustina bold 232-14 00:00: the lungs MCG/ACT 00 2 times inhalation daily AEROSOL POWDER, BREATH ACTIVATED Budesonide- 2021-0 2022- No 2{puff} Inhale 2 More Formoterol 3-30 03-30 puffs into [place]bold Fumarate 11:25: 00:00 the lungs 160-4.5 58 :00 2 times MCG/ACT daily inhalation Aerosol Albuterol 2021-0 2022- No 1{puff} Inhale 1 More Sulfate 108 3-30 03-30 puff into Se ybold (90 Base) 11:14: 00:00 the lungs MCG/ACT 07 :00 every 4 to inhalation 6 hours as AEROSOL needed POWDER, BREATH ACTIVATED Fluticasone 2021-0 Yes [id number] Inhale 1 More -Umeclidin- 3-30 inhalation Se ybold Vilant 00:00: into the (Trelegy 00 lungs Ellipta) daily 100-62.5-25 MCG/INH inhalation AEROSOL POWDER, BREATH ACTIVATED Fluticasone 2021-0 2- No [id number] Inhale 1 More -Umeclidin- 3-30 04-28 inhalation S eybold Vilant 00:00: 00:00 into the (Trelegy 00 :00 lungs Ellipta) daily 100-62.5-25 MCG/INH inhalation AEROSOL POWDER, BREATH ACTIVATED ProAir HFA 0 Yes 1{puff} Inhale 1 Univers 90 3-28 puff by ity of mcg/actuati 00:00: mouth [place] on inhaler 00 needed. [facility] ProAir HFA 0 Yes More 108 (90 [...] 00 inhalation Aerosol Solution ProAir HFA 2021-0 2- No 1{puff} Inhale 1 Univers 90 3-28 10-03 puff by ity of mcg/actuati 00:00: 00:00 mouth as [place] on inhaler 00 :00 needed. MD Jose Angel wiseman [facility] 2021- No 1{puff} Inhale 1 Univers 90 3-28 10-03 puff by ity of mcg/actuati 00:00: 00:00 mouth as [place] on inhaler 00 :00 needed. MD Jose Angel wiseman [facility] ProAir HFA 2021- No 1{puff} Inhale 1 Univers 90 3-28 10-03 puff by ity of mcg/actuati 00:00: 00:00 mouth as [place] on inhaler 00 :00 needed. MD Walter [facility] metoprolol Yes 50mg Take 1 Unive rs tartrate 2-15 tablet (50 ity o f (LOPRESSOR) 00:00: mg[place] 50 mg 00 mouth MD tablet twice Anderso daily. [facility] metoprolol Yes 50mg Take 1 Unive rs tartrate 2-15 tablet (50 ity o f (LOPRESSOR) 00:00: mg) [place] 50 mg 00 mouth MD tablet twice Anderso daily. [facility] metoprolol Yes 1{tbl} Take 1 Uni vers tartrate 2-15 tablet by ity of (LOPRESSOR) 00:00: mouth [place] 50 mg 00 daily. MD ocampo [facility] metoprolol Yes 1{tbl} Take 1 Uni vers tartrate 2-15 tablet by ity of (LOPRESSOR) 00:00: mouth [place] 50 mg 00 twice MD tablet daily. [facility] metoprolol Yes 50mg Take 1 Unive rs tartrate 2-15 tablet (50 ity o f (LOPRESSOR) 00:00: mg) [place] 50 mg 00 mouth MD tablet twice Anderso daily. [facility] Metoprolol Yes 50mg Take 50 mg K elsey Tartrate 50 2-15 by mouth Seyb old MG oral 00:00: in the - Tablet 00 morning Externa and 50 mg l in the evening. Metoprolol Yes 50mg Take 1 Kelse y Tartrate [...] Externa times l daily Metoprolol 2021-0 Yes 50mg Take 1 Kelse [...] 2020-06- No 1{puff} Inhale 1 Univers 160-4.5 07-27- puff by ity of mcg/actuati 00:00: 00:00 [place] inhaler 00 :00 daily. MD Walter [facility] Symbicort 2020-06- No 1{puff} Inhale 1 Univers 160-4.5 07-27- puff by ity of mcg/actuati 00:00: 00:00 [place] inhaler 00 :00 daily. MD Jose Angel wiseman [facility] Symbicort 2020-06- No 1{puff} Inhale 1 Univers 160-4.5 -02 21- puff by ity of mcg/actuati 00:00: 00:00 [place] on inhaler 00 :00 daily. MD [facility] Immunizations Ordered Immunization Filled Date Status Comments Sour ce Name Immunization Name Pneumococcal 2017-09-20 Completed [facility] o f Polysaccharide 00:00:00 [place] [facility] Pneumococcal 2017-09-20 Completed University o f Polysaccharide 00:00:00 [place] [facility] Pneumococcal 2017-09-20 Completed University o f Polysaccharide 00:00:00 [place] [facility] Pneumococcal 2017-09-20 Completed University o f Polysaccharide 00:00:00 [facility] Pneumococcal 2017-09-20 Completed More Seybo ld Vaccine, 00:00:00 - External Polysaccharide Pneumococcal 2017-09-20 Completed [place] Seybo ld Vaccine, 00:00:00 - External Polysaccharide Pneumococcal 2017-09-20 Completed More Seybo ld Vaccine, 00:00:00 - External Polysaccharide Pneumococcal 2017-09-20 Completed More Seybo ld Vaccine, 00:00:00 - External Polysaccharide Pneumococcal 2017-09-20 Completed More Seybo ld Vaccine, 00:00:00 - External Polysaccharide Pneumococcal 2017-09-20 Completed More Seybo ld Vaccine, 00:00:00 - External Polysaccharide Pneumococcal 2017-09-20 Completed More Seybo ld Vaccine, 00:00:00 Polysaccharide Pneumococcal Unknown Completed University o f Polysaccharide [facility] Vital Signs Vital Name Observation Time Observation Value Comments Source Systolic blood 2023-02-26 19:54:00 130 mm[Hg] More Seybold - pressure External Diastolic blood 2023-02-26 19:54:00 72 mm[Hg] Shraddha horn Seybold - pressure External Heart rate 2023-02-26 19:54:00 64 /min More murraybold - External Body temperature 2023-02-26 19:54:00 36.17 Charlette Cony murray Seybold - External Respiratory rate 2023-02-26 19:54:00 14 /min Cony murray Seybold - External Body height 2023-02-26 19:54:00 157.5 cm More alvarez - External Body weight 2023-02-26 19:54:00 52.164 kg More alvarez - External BMI 2023-02-26 19:54:00 21.03 kg/m2 More Cavazos eybold - External Systolic blood 2023-01-16 19:34:00 140 mm[Hg] More Mendes - pressure External Diastolic blood 2023-01-16 19:34:00 74 mm[Hg] Shraddha horn Seybold - pressure External Heart rate 2023-01-16 19:34:00 64 /min More Cavazos eybold - External Body temperature 2023-01-16 19:34:00 36.22 Charlette Cony murray Seybold - External Respiratory rate 2023-01-16 19:34:00 16 /min Cony murray Seybold - External Body weight 2023-01-16 19:34:00 52.617 kg More murraybold - External BMI 2023-01-16 19:34:00 21.22 kg/m2 More murraybold - External Oxygen saturation in 2023-01-16 19:34:00 96 /min More Mendes - Arterial blood by External Pulse oximetry Systolic blood 2022-12-08 15:46:00 144 mm[Hg] Univer sity of [facility] Diastolic blood 2022-12-08 15:46:00 80 mm[Hg] Unive rsity of pressure [facility] Heart rate 2022-12-08 15:46:00 55 /min [facility] Oxygen saturation in 2022-12-08 15:46:00 95 /min University Arterial blood by [facility] Pulse oximetry Branch Body temperature 2022-12-08 15:44:00 36.72 Charlette [facility] Res[facility] rate 2022-12-08 15:44:00 16 /min [facility] Body height 2022-12-08 15:44:00 157.5 cm Universi [facility] Body weight 2022-12-08 15:44:00 49.805 [facility] 2022-12-08 15:44:00 20.08 kg/m2 [facility] Systolic blood 2022-11-16 16:33:00 145 mm[Hg] More Murphyybold - pressure External Diastolic blood 2022-11-16 16:33:00 77 mm[Hg] Kelse y Seybold - pressure External Heart rate 2022-11-16 16:33:00 57 /min More S eybold - External Body temperature 2022-11-16 16:33:00 37 Charlette Cony ey Seybold - External Respiratory rate 2022-11-16 16:33:00 17 /min Cony ey Seybold - External Body height 2022-11-16 16:33:00 157.5 cm More S eybold - External Body weight 2022-11-16 16:33:00 49.442 kg More S eybold - External BMI 2022-11-16 16:33:00 19.94 kg/m2 More S eybold - External Oxygen saturation in 2022-11-16 16:33:00 98 /min More Nileshold - Arterial blood by External Pulse oximetry [...] saturation in 2022-10-04 13:57:00 99 /min More Murphyybold - Arterial blood by External Pulse oximetry Systolic blood 2022-06-16 15:14:00 122 mm[Hg] More Seybold - pressure External Diastolic blood 2022-06-16 15:14:00 70 mm[Hg] Kelse y Seybold - pressure External [...] External Diastolic blood 2022-05-03 19:05:00 67 mm[Hg] Jarrettse y Seybold - pressure External Heart rate 2022-05-03 19:05:00 67 /min More S eybold - External Body temperature 2022-05-03 19:05:00 36.56 Charlette Cony ey Seybold - External Respiratory rate 2022-05-03 19:05:00 14 /min Cony ey Seybold - External Body height 2022-05-03 19:05:00 157.5 cm More Cavazos eybold - External Body weight 2022-05-03 19:05:00 46.72 kg More Cavazos eybold - External BMI 2022-05-03 19:05:00 18.84 kg/m2 More Cavazos eybold - External Oxygen saturation in 2022-05-03 19:05:00 99 /min More Mendes - Arterial blood by [...] Body height 2021-09-14 15:21:00 157.5 cm More S eybold Body weight 2021-09-14 15:21:00 49.261 kg More S eybold BMI 2021-09-14 15:21:00 19.86 kg/m2 More S eybold Oxygen saturation in 2021-09-14 15:21:00 99 /min More Seybold Arterial blood by Pulse oximetry Body height 2023-02-02 15:38:00 156.5 cm [facility] Body weight 2023-02-02 15:38:00 52.2 kg [facility] BMI 2023-02-02 15:38:00 21.31 kg/m2 [facility] Body weight 2023-01-16 13:14:00 51.3 kg [facility]i [facility] BMI 2023-01-16 13:14:00 21.91 kg/m2 [facility]i ty of [facility] Systolic blood 2022-09-12 14:53:00 151 mm[Hg] Univer sity of pressure [facility] Diastolic blood 2022-09-12 14:53:00 87 mm[Hg] Unive rsity of pressure [facility] Heart rate 2022-09-12 14:53:00 60 /min [facility] Body temperature 2022-09-12 14:53:00 36.78 Charlette Univ ersity [facility] Respiratory rate 2022-09-12 14:53:00 16 /min Univ ersity of [facility] Body weight 2022-09-12 14:53:00 45.768 kg [facility]i ty [facility] BMI 2022-09-12 14:53:00 19.55 kg/m2 [facility]i [facility] Oxygen saturation in 2022-09-12 14:53:00 98 /min University of Arterial blood by [facility] Pulse oximetry [facility] Body height 2022-07-31 14:48:36 153 cm [facility]i ty [facility] Systolic blood 2022-04-17 14:45:56 120 mm[Hg] Univer sitjustina of pressure [facility] [...] /min University of Arterial blood by [facility] josueon Pulse oximetry [facility] Body weight 2022-04-10 [...] /min University of Arterial blood by [facility] josueon Pulse oximetry [facility] Body height 2022-02-07 18:21:00 151 cm [facility] Procedures Procedure Date / Time Performing Clinician Source Performed MEDICAL RELEASE/CLEARANCE 2023-03-08 05:01:00 Doctor Unassigned, [facility] FORMS [facility] CHEST ABDOMEN PELVIS W 2023-02-02 17:42:00 Sofy Almendarez [facility] CONTRAST [facility] COMPLETE BLOOD COUNT W/ 2023-02-02 15:17:23 [facility] COMPREHENSIVE METABOLIC 2023-02-02 15:17:23 [facility] FREE THYROXINE 2023-02-02 15:17:23 Sofy Almendarez [facility] MAGNESIUM LEVEL 2023-02-02 15:17:23 [facility] PHOSPHORUS LEVEL 2023-02-02 15:17:23 [facility] THYROID STIMULATING 2023-02-02 15:17:23 Sofy [facility]endarez [facility] HORMONE [facility] .CBC 2023-02-02 15:17:23 Sofy Almendarez [facility] DIFFERENTIAL 2023-02-02 15:17:23 Sofy Almendarez [facility] GLUCOSE LEVEL 2023-02-02 15:17:23 Sofy Almendarez [facility] BLOOD UREA NITROGEN 2023-02-02 15:17:23 Sofy Almendarez [facility] ELECTROLYTE PANEL 2023-02-02 15:17:23 Sofy Almendarez [facility] ity [facility] SERUM CREATININE 2023-02-02 15:17:23 [facility] .GLOMERULAR FILTRATION 2023-02-02 15:17:23 Sofy Almendarez Un iversity [facility] RATE [facility] CALCIUM LEVEL 2023-02-02 15:17:23 [facility] ALBUMIN LEVEL 2023-02-02 15:17:23 Sof[facility] ALKALINE PHOSPHATASE 2023-02-02 15:17:23 Sofy Almendarez [facility] ALANINE AMINOTRANSFERASE 2023-02-02 15:17:23 Sofy Almendarez [facility] ASPARTATE AMINOTRANSFERASE 2023-02-02 15:17:23 Sofy Almendarez [facility] TOTAL PROTEIN 2023-02-02 15:17:23 Sofy Almendarez [facility] FRACTIONATED BILIRUBIN 2023-02-02 15:17:23 Sofy Almendarez Un [facility] OSI CT ABDOMEN AND PELVIS 2023-01-19 15:25:00 Sofy Almendarez [facility] MRI BRAIN W WO CONTRAST 2023-01-16 14:16:00 Sally Gillis [facility] COMPREHENSIVE METABOLIC 2023-01-09 14:57:33 Tana Kay [facility] PANEL [facility] COMPLETE BLOOD COUNT W/ 2023-01-09 14:57:33 Tana Kay [facility] DIFFERENTIAL [facility] GLUCOSE LEVEL 2023-01-09 14:57:33 Tana Kay [facility] BLOOD UREA NITROGEN 2023-01-09 14:57:[address] [facility] ELECTROLYTE PANEL 2023-01-09 14:57:33 Tana Kay [facility] SERUM CREATININE 2023-01-09 14:57:33 Tana Kay [facility] .GLOMERULAR FILTRATION 2023-01-09 14:57:33 Tana Kay [facility] RATE [facility] CALCIUM LEVEL TOTAL 2023-01-09 14:57:[address] [facility] ALBUMIN LEVEL 2023-01-09 14:57:33 Tana Kay [facility] ALKALINE PHOSPHATASE 2023-01-09 14:57:33 Tana Kay [facility] ALANINE AMINOTRANSFERASE 2023-01-09 14:57:33 Tana Kay [facility] ASPARTATE AMINOTRANSFERASE 2023-01-09 14:57:33 Tana Kay [facility] TOTAL PROTEIN 2023-01-09 14:57:33 Tana Kay [facility] FRACTIONATED BILIRUBIN 2023-01-09 14:57:33 Tana [facility] Results CBC 2023-01-09 14:57:33 Tana Kay [facility] MANUAL DIFFERENTIAL 2023-01-09 14:57:33 Tana Kay [facility] ity of [facility] CT CHEST W CONTRAST 2022-11-02 15:11:08 Josephine Jacobo Universi ty [facility] COMPLETE BLOOD COUNT W/ 2022-11-02 14:04:39 [facility] [place] [facility] COMPREHENSIVE METABOLIC 2022-11-02 14:04:39 Sofy [facility]arez [facility] [place] PANEL [facility] FREE THYROXINE 2022-11-02 14:04:39 Sofy Almendarez [facility]it [facility] THYROID STIMULATING 2022-11-02 14:04:39 [facility] [place] HORMONE [facility] Results CBC 2022-11-02 14:04:39 Sofy Almendarez Universit y of [facility] MANUAL DIFFERENTIAL 2022-11-02 14:04:39 Sofy Almendarez Unive rsity of [facility] GLUCOSE LEVEL 2022-11-02 14:04:39 Sofy Almendarez [facility]it y [facility] BLOOD UREA NITROGEN 2022-11-02 14:04:39 Sofy Almendareze rsity of [facility] ELECTROLYTE PANEL 2022-11-02 14:04:39 Sofy Almendarez ity of [facility] SERUM CREATININE 2022-11-02 14:04:39 Sofy Almendarez Universi ty [facility] .GLOMERULAR FILTRATION 2022-11-02 14:04:39 Sofy Almendarez [facility] [place] RATE [facility] CALCIUM LEVEL TOTAL 2022-11-02 14:04:39 Sofy Almendarez Unive rsity of [facility] ALBUMIN LEVEL 2022-11-02 14:04:39 Sofy Almendarez [facility] ALKALINE PHOSPHATASE 2022-11-02 14:04:39 Sofy Almendarez [facility] ALANINE AMINOTRANSFERASE 2022-11-02 14:04:39 Sofy Almendarez [facility] ASPARTATE AMINOTRANSFERASE 2022-11-02 14:04:39 Sofy Almendarez [facility] TOTAL PROTEIN 2022-11-02 14:04:39 Sofy Almendarez [facility] FRACTIONATED BILIRUBIN 2022-11-02 14:04:39 [facility] 2022-09-12 14:10:00 Sof[facility] RESEARCH PROTOCOL [id number] 2022-09-12 14:10:00 Sofy Almendarez [facility] ALBUMIN LEVEL 2022-09-12 14:10:00 Sofy Almendarez [facility] ALKALINE PHOSPHATASE 2022-09-12 14:10:00 Sofy Almendarez [facility] ALANINE AMINOTRANSFERASE 2022-09-12 14:10:00 Sofy Almendarez [facility] ASPARTATE AMINOTRANSFERASE 2022-09-12 14:10:00 Sofy Almendarez [facility] TOTAL PROTEIN 2022-09-12 14:10:00 Sofy Almendarez [facility] FRACTIONATED BILIRUBIN 2022-09-12 14:10:00 Sof[facility]endarez [facility] HE[facility] FUNCTION PANEL 2022-08-21 16:43:45 Sofy [facility] GAMMA GLUTAMYL TRANSFERASE 2022-08-21 16:43:45 Sofy Almendarez [facility] COMPLETE BLOOD COUNT W/ 2022-08-21 16:43:45 Sof[facility]arez [facility] ALBUMIN LEVEL 2022-08-21 16:43:45 Sofy Almendarez [facility] ALKALINE PHOSPHATASE 2022-08-21 16:43:45 Sofy Almendarez [facility] ALANINE AMINOTRANSFERASE 2022-08-21 16:43:45 Sofy Almendarez [facility] ASPARTATE AMINOTRANSFERASE 2022-08-21 16:43:45 Sofy Almendarez [facility] TOTAL PROTEIN 2022-08-21 16:43:45 Sofy Almendarez [facility] FRACTIONATED BILIRUBIN 2022-08-21 16:43:45 Sofy [facility]arez [facility] Results CBC 2022-08-21 16:43:45 Sofy Almendarez [facility] MANUAL DIFFERENTIAL 2022-08-21 16:43:45 Sofy Almendarez [facility] HEPATIC FUNCTION PANEL 2022-08-14 15:21:53 Sofy Almendarez [facility] GAMMA GLUTAMYL TRANSFERASE 2022-08-14 15:21:53 Sofy Almendarez [facility] ALBUMIN LEVEL 2022-08-14 15:21:53 Sofy Almendarez [facility] ALKALINE PHOSPHATASE 2022-08-14 15:21:53 Sofy Almendarez [facility] ALANINE AMINOTRANSFERASE 2022-08-14 15:21:53 Sofy Almendarez [facility] ASPARTATE AMINOTRANSFERASE 2022-08-14 15:21:53 Sofy Almendarez [facility] TOTAL PROTEIN 2022-08-14 15:21:53 Sofy Almendarez [facility] FRACTIONATED BILIRUBIN 2022-08-14 15:21:53 Sofy Almendarez [facility] HSV 1 & 2 QUANT PCR, 2022-08-07 15:30:00 [facility] PLASMA [facility] CMV ANTIBODY IGG + IGM 2022-08-07 15:30:00 Sofy Almendarez [facility] EBV QUANT PCR, PLASMA 2022-08-07 15:30:00 Sofy Almendarez [facility] EBV ANTIBODY PANEL - 2022-08-07 15:30:00 Sofy Al[facility]endarez [facility] PATHOLOGIST REVIEW [facility] CMV ANTIBODY IGG + IGM - 2022-08-07 15:30:00 Sofy Almendarez [facility] PATHOLOGIST REVIEW [facility] BASIC METABOLIC PANEL, 2022-08-07 15:30:00 Sofy Almendarez [facility] CALCIUM TOTAL [facility] HEPATIC FUNCTION PANEL 2022-08-07 15:30:00 Sofy Almendarez [facility] GAMMA GLUTAMYL TRANSFERASE 2022-08-07 15:30:00 Sofy Almendarez [facility] COMPLETE BLOOD COUNT W/ 2022-08-07 15:30:00 Sofy Almendarez [facility] DIFFERENTIAL [facility] PROTHROMBIN TIME 2022-08-07 15:30:00 Sof[facility]arez [facility] HEPATITIS A IGM ANTIBODY 2022-08-07 15:30:00 Sofy Almendarez [facility] SERUM [facility] HEPATITIS A ANTIBODY IGG 2022-08-07 15:30:00 Sofy Almendarez [facility] HEPATITIS B SURFACE 2022-08-07 15:30:00 Sofy Almendarez [facility] ANTIGEN, SERUM [facility] HEPATITIS B SURFACE 2022-08-07 15:30:00 Sofy Almendarez [facility] ANTIBODY, SERUM [facility] HEPATITIS B CORE ANTIBODY 2022-08-07 15:30:00 Sofy Almendarez [facility] IGM ACUTE TITER [facility] HEPATITIS B CORE ANTIBODY 2022-08-07 15:30:00 Sofy Almendarez [facility] HBV DNA QUANT 2022-08-07 15:30:00 Sofy Almendarez [facility] HEPATITIS C VIRUS AB 2022-08-07 15:30:00 Sofy Almendarez [facility] SCREEN W/REFLEX HCV PCR [facility] HEPATITIS C VIRUS RNA 2022-08-07 15:30:00 Sofy Almendarez [facility] DETECT/QUANT, SERUM [facility] HEV IGM ANTIBODY SCREEN, 2022-08-07 15:30:00 Sofy Almendarez [facility] SERUM [facility] HEV IGG ANTIBODY, SERUM 2022-08-07 15:30:00 Sofy Al[facility]endarez [facility] HEPATITIS E VIRUS BY 2022-08-07 15:30:00 Sofy Almendarez [facility] QUANTITATIVE PCR [facility] CMV QUANT PCR 2022-08-07 15:30:00 Sofy Almendarez [facility] EBV ANTIBODY PANEL 2022-08-07 15:30:00 Sofy Almendarez [facility] HIV 1/2 ANTIGEN/ANTIBODY, 2022-08-07 15:30:00 Sofy Almendarez [facility] FOURTH GEN W/RFL [facility] CERULOPLASMIN LVL 2022-08-07 15:30:[address] [facility] ALPHA 1 ANTRITRYPSIN, 2022-08-07 15:30:00 Sofy Almendarez [facility] SERUM [facility] ANTINUCLEAR ANTIBODY HEP-2 2022-08-07 15:30:00 Sofy Almendarez [facility] SUBSTRATE IGG [facility] MITOCHONDRIAL ANTIBODIES, 2022-08-07 15:30:00 Sofy Almendarez [facility] M2, SERUM [facility] SMOOTH MUSCLE ANTIBODY 2022-08-07 15:30:00 [facility]KIDNEY [facility]CROSOME 2022-08-07 15:30:00 Sofy Almendarez [facility] [place] TYPE 1 ANTIBODY, SERUM [facility] IMMUNOGLOBULIN G SERUM 2022-08-07 15:30:00 Sofy Almendarez Un iversity of [facility] IMMUNOGLOBULIN M SERUM 2022-08-07 15:30:00 Sofy Almendarez Un iversity of [facility] IMMUNOGLOBULIN A SERUM 2022-08-07 15:30:00 Sofy Almendarez Un iversity of [facility] TISSUE TRANSGLUTAMINASE 2022-08-07 15:30:00 Sofy Almendarez [facility] [place] ANTIBODY, SERUM [facility] IRON LEVEL 2022-08-07 15:30:00 Sofy Almendarez [facility]it y [facility] TRANSFERRIN 2022-08-07 15:30:00 Sofy Almendarez [facility] FERRITIN LVL 2022-08-07 15:30:00 Sofy Almendarez [facility] THYROID STIMULATING 2022-08-07 15:30:00 Sofy Almendarez [facility]ive [facility] [place] HORMONE [facility] GLUCOSE LEVEL 2022-08-07 15:30:00 Sofy Almendarez [facility]it y [facility] BLOOD UREA NITROGEN 2022-08-07 15:30:00 Sofy Almendarez Unive rsity of [facility] ELECTROLYTE PANEL 2022-08-07 15:30:00 Sofy Almendarez ity of [facility] SERUM CREATININE 2022-08-07 15:30:00 Sofy Almendarezi ty of [facility] .GLOMERULAR FILTRATION 2022-08-07 15:30:00 Sofy Almendarez [facility] [place] RATE [facility] CALCIUM LEVEL TOTAL 2022-08-07 15:30:00 Sofy Almendarez Unive rsity of [facility] ALBUMIN LEVEL 2022-08-07 15:30:00 Sofy Almendarez Universit y of [facility] ALKALINE PHOSPHATASE 2022-08-07 15:30:00 Sofy Almendarez [facility] ALANINE AMINOTRANSFERASE 2022-08-07 15:30:00 Sofy Almendarez [facility] ASPARTATE AMINOTRANSFERASE 2022-08-07 15:30:00 Sofy Almendarez [facility] TOTAL PROTEIN 2022-08-07 15:30:00 Sofy Almendarez [facility] FRACTIONATED BILIRUBIN 2022-08-07 15:30:00 Sofy Almendarez [facility] Results CBC 2022-08-07 15:30:00 Sofy Almendarez [facility] MANUAL DIFFERENTIAL 2022-08-07 15:30:00 Sofy Almendareze [facility] EBV QUANT PCR, PLASMA 2022-08-07 15:30:00 Sofy Almendarez [facility] HBV DNA QUANT 2022-08-07 15:30:00 Sofy Almendarez [facility] PETCT SUBSEQUENT TREATMENT 2022-08-02 21:42:19 Sofy Almendarez [facility] OSI CT ABDOMEN AND PELVIS 2022-08-02 20:47:00 Sofy Almendarez [facility] OSI CT BRAIN 2022-08-02 20:47:00 Sofy Almendarez [facility] COMPREHENSIVE METABOLIC 2022-08-02 17:24:34 [facility] COMPLETE BLOOD COUNT W/ 2022-08-02 17:24:34 [facility] DIFFERENTIAL [facility] CREATINE KINASE 2022-08-02 17:24:34 Sofy Almendarez [facility] GAMMA GLUTAMYL TRANSFERASE 2022-08-02 17:24:34 Sofy Almendarez [facility] GLUCOSE LEVEL 2022-08-02 17:24:34 Sofy Almendarez [facility] BLOOD UREA NITROGEN 2022-08-02 17:24:34 Sofy Al[facility]endarez [facility] ELECTROLYTE PANEL 2022-08-02 17:24:34 Sofy Almendarez ity [facility] SERUM CREATININE 2022-08-02 17:24:34 Sofy Almendarez Universi ty [facility] [place] .GLOMERULAR FILTRATION 2022-08-02 17:24:34 Sofy Almendarez Un iversity [facility] CALCIUM LEVEL TOTAL 2022-08-02 17:24:34 Sofy [facility]arez [facility] ALBUMIN LEVEL 2022-08-02 17:24:34 [facility] ALKALINE PHOSPHATASE 2022-08-02 17:24:34 Sofy Almendarez [facility] ALANINE AMINOTRANSFERASE 2022-08-02 17:24:34 Sofy Almendarez [facility] ASPARTATE AMINOTRANSFERASE 2022-08-02 17:24:34 Sofy Almendarez [facility] TOTAL PROTEIN 2022-08-02 17:24:34 [facility] FRACTIONATED BILIRUBIN 2022-08-02 17:24:34 Sofy Almendarez Un iversity [facility] Results CBC 2022-08-02 17:24:34 [facility] MANUAL DIFFERENTIAL 2022-08-02 17:24:34 Sofy Almendarez [facility] rsity [facility] XR CHEST 2 VW 2022-06-26 14:58:00 [facility] EXTERNAL IMAGING 2022-06-16 17:20:00 Leodan Barakat old - External OSI CHEST 2022-06-16 14:58:00 Sof[facility] OSCILLATORY PEP 2022-05-28 14:00:10 Kunal [facility] OSCILLATORY PEP 2022-05-28 02:00:08 Kunal [facility] OSCILLATORY PEP 2022-05-27 14:00:11 Kunal [facility] COMPLETE BLOOD COUNT W/ 2022-05-27 10:03:00 Cady Heller [facility] INDICES [facility] BASIC METABOLIC PANEL, 2022-05-27 10:03:00 Cady Heller [facility] CALCIUM TOTAL [facility] MAGNESIUM LEVEL 2022-05-27 10:03:00 Arron [facility] GLUCOSE LEVEL 2022-05-27 10:03:00 Arron [facility] BLOOD UREA NITROGEN 2022-05-27 10:03:00 Cady Heller [facility] ELECTROLYTE PANEL 2022-05-27 10:03:00 Arron [facility] SERUM CREATININE 2022-05-27 10:03:00 Arron [facility] .GLOMERULAR FILTRATION 2022-05-27 10:03:00 [facility] RATE [facility] [facility] CALCIUM LEVEL TOTAL 2022-05-27 10:03:00 Cady Heller [facility] OSCILLATORY PEP 2022-05-26 20:01:25 Kunal [facility] OSCILLATORY PEP 2022-05-26 14:00:05 Kunal [facility] XR CHEST 2 VW 2022-05-26 13:50:49 Kunal [facility] CALCIUM IONIZED, VENOUS 2022-05-26 11:50:[address] [facility] SODIUM LEVEL 2022-05-26 11:50:00 Kunal [facility] POTASSIUM LEVEL 2022-05-26 11:50:00 Cherry Syed [facility] Center CHLORIDE LEVEL 2022-05-26 11:50:00 Cherry Syed [facility] CARBON DIOXIDE LEVEL 2022-05-26 11:50:00 Cherry Syed [facility] Zac [facility] BLOOD UREA NITROGEN 2022-05-26 11:50:00 Cherry Syed [facility] SERUM CREATININE 2022-05-26 11:50:00 Kunal [facility] GLUCOSE, RANDOM 2022-05-26 11:50:00 Kunal [facility] MAGNESIUM LEVEL 2022-05-26 11:50:00 Kunal [facility] Center CALCIUM LEVEL TOTAL 2022-05-26 11:50:00 Cherry Syed [facility] PHOSPHORUS LEVEL 2022-05-26 11:50:00 Kunal [facility] COMPLETE BLOOD COUNT W/ 2022-05-26 11:50:00 Cherry Syed [facility] DIFFERENTIAL [facility] SERUM CREATININE 2022-05-26 11:50:00 Satya [facility] .GLOMERULAR FILTRATION 2022-05-26 11:50:00 Satya Warren [facility] Results CBC 2022-05-26 11:50:00 Satya [facility] MANUAL DIFFERENTIAL 2022-05-26 11:50:00 Satya Warren [facility] ANION GAP 2022-05-26 11:50:00 Satya [facility] OSCILLATORY PEP 2022-05-26 02:46:56 Cherry Syed [facility] SODIUM LEVEL 2022-05-25 17:26:00 Kunal [facility] POTASSIUM LEVEL 2022-05-25 17:26:00 Cherry Syed [facility] CHLORIDE LEVEL 2022-05-25 17:26:00 Kunal [facility] CARBON DIOXIDE LEVEL 2022-05-25 17:26:00 Cherry Syed [facility] BLOOD UREA NITROGEN 2022-05-25 17:26:00 Cherry Syed [facility] SERUM CREATININE 2022-05-25 17:26:00 Kunal [facility] GLUCOSE, RANDOM 2022-05-25 17:26:00 Kunal [facility] MAGNESIUM LEVEL 2022-05-25 17:26:00 Kunal [facility] CALCIUM LEVEL TOTAL 2022-05-25 17:26:00 Cherry Syed [facility] CALCIUM IONIZED, VENOUS 2022-05-25 17:26:00 Kunal [facility] PHOSPHORUS LEVEL 2022-05-25 17:26:00 Kunal [facility] COMPLETE BLOOD COUNT W/ 2022-05-25 17:26:00 Kunal [facility] DIFFERENTIAL [facility] SERUM CREATININE 2022-05-25 17:26:00 Satya [facility] .GLOMERULAR FILTRATION 2022-05-25 17:26:00 Warren Hernadez [facility] RATE [facility] Results CBC 2022-05-25 17:26:00 Satya Warren [facility] MANUAL DIFFERENTIAL 2022-05-25 17:26:00 Satya Warren [facility] ANION GAP 2022-05-25 17:26:00 Satya [facility] XR CHEST 1 VW 2022-05-25 16:56:06 Kunal [facility] PATHOLOGY SURGICAL 2022-05-25 14:21:00 Warren Hernadez [facility] INTERPRETATION [facility] ROBOTIC (RATS) LOBECTOMY 2022-05-25 12:27:00 [facility] ROBOTIC (RATS) MEDIASTINAL 2022-05-25 12:27:00 Warren [facility] LYMPHADENECTOMY [facility] COMPLETE BLOOD COUNT W/ 2022-05-23 15:58:50 Rian [facility] DIFFERENTIAL [facility] COMPREHENSIVE METABOLIC 2022-05-23 15:58:50 Rian [facility] PANEL [facility] FREE THYROXINE 2022-05-23 15:58:50 Rian [facility] FERRITIN LVL 2022-05-23 15:58:50 Rian [facility] HEMOGLOBIN A1C 2022-05-23 15:58:50 Rian [facility] IRON LEVEL 2022-05-23 15:58:50 Rian [facility] PROTHROMBIN TIME 2022-05-23 15:58:50 Rian [facility] APTT 2022-05-23 15:58:50 Rian [facility] TYPE AND SCREEN 2022-05-23 15:58:50 Rian [facility] TRANSFERRIN 2022-05-23 15:58:50 Rian [facility] Results CBC 2022-05-23 15:58:50 Rian [facility] MANUAL DIFFERENTIAL 2022-05-23 15:58:50 Rian [facility] GLUCOSE LEVEL 2022-05-23 15:58:50 Rian [facility] BLOOD UREA NITROGEN 2022-05-23 15:58:50 Rian [facility] ELECTROLYTE PANEL 2022-05-23 15:58:50 Rian [facility] SERUM CREATININE 2022-05-23 15:58:50 Rian [facility] .GLOMERULAR FILTRATION 2022-05-23 15:58:50 Josephine Jacobo [facility] CALCIUM LEVEL TOTAL 2022-05-23 15:58:50 Rian [facility] ALBUMIN LEVEL 2022-05-23 15:58:50 Rian [facility] ALKALINE PHOSPHATASE 2022-05-23 15:58:50 Rian [facility] ALANINE AMINOTRANSFERASE 2022-05-23 15:58:50 Rian [facility] ASPARTATE AMINOTRANSFERASE 2022-05-23 15:58:50 [facility] TOTAL PROTEIN 2022-05-23 15:58:50 Rian [facility] FRACTIONATED BILIRUBIN 2022-05-23 15:58:50 Rian [facility] ABORH 2022-05-23 15:58:50 Rian [facility] ANTIBODY SCREEN 2022-05-23 15:58:50 Rian [facility] CLOT EXPIRATION DATE 2022-05-23 15:58:50 Rian [facility] TMP INTERPRETATION 2022-05-23 15:58:50 Rian [facility] ANTIBODY SCREEN NEGATIVE MD Novak [facility] TMP CROSSMATCH 2022-05-23 15:58:50 Rian [facility] INTERPRETATION [facility] CONFIRM ABORH TYPE 2022-05-23 15:56:00 Rian [facility] COVID-19 (SARS-COV-2) PCR 2022-05-23 15:45:00 Warren Hernadez [facility] COVID-19 (SARS-COV-2) PCR 2022-05-23 15:45:00 Warren Hernadez [facility] COMPREHENSIVE METABOLIC 2022-05-09 15:15:00 Sofy Almendarez [facility] [place] PANEL [facility] COMPLETE BLOOD COUNT W/ 2022-05-09 15:15:00 Sofy Almendarez [facility] [place] DIFFERENTIAL [facility] THYROID STIMULATING 2022-05-09 15:15:00 Sofy Almendareze [facility] [place] HORMONE [facility] FREE THYROXINE 2022-05-09 15:15:00 Sofy Almendarez [facility] PHOSPHORUS LEVEL 2022-05-09 15:15:00 Sofy Almendarez [facility] MAGNESIUM LEVEL 2022-05-09 15:15:00 Sofy Almendarez [facility] GLUCOSE LEVEL 2022-05-09 15:15:00 Sofy Almendarez [facility] BLOOD UREA NITROGEN 2022-05-09 15:15:00 Sofy Almendarez [facility] ELECTROLYTE PANEL 2022-05-09 15:15:00 Sofy Almendarez [facility] SERUM CREATININE 2022-05-09 15:15:00 Sofy Almendarez [facility] .GLOMERULAR FILTRATION 2022-05-09 15:15:00 Sofy Almendarez [facility] [place] RATE [facility] CALCIUM LEVEL TOTAL 2022-05-09 15:15:00 Sofy Almendarez [facility] ALBUMIN LEVEL 2022-05-09 15:15:00 Sofy Almendarez [facility] ALKALINE PHOSPHATASE 2022-05-09 15:15:00 Sofy Almendarez [facility] ALANINE AMINOTRANSFERASE 2022-05-09 15:15:00 Sofy Almendarez [facility] ASPARTATE AMINOTRANSFERASE 2022-05-09 15:15:00 Sofy Almendarez [facility] TOTAL PROTEIN 2022-05-09 15:15:00 Sofy Almendarez [facility] FRACTIONATED BILIRUBIN 2022-05-09 15:15:00 Sofy Almendarez [facility] Results CBC 2022-05-09 15:15:00 Sofy Almendarez [facility] MANUAL DIFFERENTIAL 2022-05-09 15:15:00 Sofy Almendarez [facility] COMPLETE BLOOD COUNT W/ 2022-04-17 13:15:59 [facility]y [facility] DIFFERENTIAL [facility] COMPREHENSIVE METABOLIC 2022-04-17 13:15:59 Sofy [facility] [place] PANEL [facility] PHOSPHORUS LEVEL 2022-04-17 13:15:59 Sofy Almendarez E [facility] MAGNESIUM LEVEL 2022-04-17 13:15:59 Sofy Almendarez [facility] Results CBC 2022-04-17 13:15:59 Sofy Almendarez [facility] MANUAL DIFFERENTIAL 2022-04-17 13:15:59 Sofy Almendarez Unive rsity [facility] GLUCOSE LEVEL 2022-04-17 13:15:59 Sofy Almendarez E [facility] BLOOD UREA NITROGEN 2022-04-17 13:15:59 Sofy Almendarez [facility] ELECTROLYTE PANEL 2022-04-17 13:15:59 Sumeet Almendarezrimirna Brizuela [facility] SERUM CREATININE 2022-04-17 13:15:59 Sumeet Almendarezrielle E [facility] .GLOMERULAR FILTRATION 2022-04-17 13:15:59 Sofy Almendarez E [facility] RATE [facility] CALCIUM LEVEL TOTAL 2022-04-17 13:15:59 Sofy Almendarez [facility] ALBUMIN LEVEL 2022-04-17 13:15:59 Sofy Almendarez [facility] ALKALINE PHOSPHATASE 2022-04-17 13:15:59 Sofy Almendarez [facility] ALANINE AMINOTRANSFERASE 2022-04-17 13:15:59 Sofy Almendarez E [facility] ASPARTATE AMINOTRANSFERASE 2022-04-17 13:15:59 Sofy Almendarez E [facility] TOTAL PROTEIN 2022-04-17 13:15:59 Sofy Almendarez [facility] FRACTIONATED BILIRUBIN 2022-04-17 13:15:59 Sofy Almendarez E [facility] COMPREHENSIVE METABOLIC 2022-04-10 15:38:00 [facility] Dai HO [facility] COMPLETE BLOOD COUNT W/ 2022-04-10 15:38:00 [facility] DIFFERENTIAL Dai HO [facility] MAGNESIUM LEVEL 2022-04-10 15:38:00 [facility] Dai [facility] PHOSPHORUS LEVEL 2022-04-10 15:38:00 Moncho Philip [facility] Dai HO [facility] THYROID STIMULATING 2022-04-10 15:38:00 Moncho Philip [facility] HORMONE Dai HO [facility] FREE THYROXINE 2022-04-10 15:38:00 [facility] Dai HO [facility] GLUCOSE LEVEL 2022-04-10 15:38:00 [facility] Dai HO [facility] BLOOD UREA NITROGEN 2022-04-10 15:38:00 Moncho [facility] HO [facility] ELECTROLYTE PANEL 2022-04-10 15:38:00 Moncho Philip [facility] SERUM CREATININE 2022-04-10 15:38:00 Moncho Philip [facility] .GLOMERULAR FILTRATION 2022-04-10 15:38:00 Moncho Philip [facility] CALCIUM LEVEL TOTAL 2022-04-10 15:38:00 [facility] ALBUMIN LEVEL 2022-04-10 15:38:00 Moncho Philip [place] o [facility] ALKALINE PHOSPHATASE 2022-04-10 15:38:[address] [facility] ALANINE AMINOTRANSFERASE 2022-04-10 15:38:00 Moncho Philip [facility] ASPARTATE AMINOTRANSFERASE 2022-04-10 15:38:[address] [facility] TOTAL PROTEIN 2022-04-10 15:38:00 Moncho [facility] FRACTIONATED BILIRUBIN 2022-04-10 15:38:00 Moncho Philip [facility] Results CBC 2022-04-10 15:38:00 Moncho [facility] MANUAL DIFFERENTIAL 2022-04-10 15:38:00 Moncho Philip [facility] CT CHEST WO CONTRAST 2022-04-07 14:08:21 Yu [place] [facility] 6 MINUTE WALK TEST 2022-03-20 15:53:15 Tammy Giraldo [facility] COMPREHENSIVE METABOLIC 2022-03-20 12:01:00 [facility]ail[facility] PANEL Dai HO [facility] COMPLETE BLOOD COUNT W/ 2022-03-20 12:01:00 [facility] DIFFERENTIAL Dai HO [facility] MAGNESIUM LEVEL 2022-03-20 12:01:00 [facility] Dai HO [facility] PHOSPHORUS LEVEL 2022-03-20 12:01:00 [facility] GLUCOSE LEVEL 2022-03-20 12:01:00 [facility] Dai HO [facility] BLOOD UREA NITROGEN 2022-03-20 12:01:00 [facility] Dai HO [facility] ELECTROLYTE PANEL 2022-03-20 12:01:00 [facility] Dai HO [facility] SERUM CREATININE 2022-03-20 12:01:00 [facility] Dai HO [facility] .GLOMERULAR FILTRATION 2022-03-20 12:01:00 Moncho Philip, [facility] RATE Dai HO [facility] CALCIUM LEVEL TOTAL 2022-03-20 12:01:00 [facility] Dai HO [facility] ALBUMIN LEVEL 2022-03-20 12:01:00 [facility] Dai HO [facility] ALKALINE PHOSPHATASE 2022-03-20 12:01:00 [facility] ALANINE AMINOTRANSFERASE 2022-03-20 12:01:00 Moncho Philip [facility] Dai HO [facility] ASPARTATE AMINOTRANSFERASE 2022-03-20 12:01:00 Moncho Philip [facility] Dai HO [facility] TOTAL PROTEIN 2022-03-20 12:01:00 [facility] Dai HO [facility] FRACTIONATED BILIRUBIN 2022-03-20 12:01:00 Moncho Philip [facility] Dai HO [facility] [place] Results CBC 2022-03-20 12:01:00 [facility] Dai HO [facility] MANUAL DIFFERENTIAL 2022-03-20 12:01:00 [facility] Dai HO [facility] COMPREHENSIVE METABOLIC 2022-02-27 13:30:00 [facility] PANEL Dai HO [facility] COMPLETE BLOOD COUNT W/ 2022-02-27 13:30:00 [facility] DIFFERENTIAL Dai HO [facility] MAGNESIUM LEVEL 2022-02-27 13:30:00 [facility]asiaOs[facility] Centerjan[facility] Dai HO [facility] PHOSPHORUS LEVEL 2022-02-27 13:30:00 [facility]cho [facility] Dai HO [facility] THYROID STIMULATING 2022-02-27 13:30:00 [facility] HORMONE Dai HO [facility] FREE THYROXINE 2022-02-27 13:30:00 DasiaOsceola [facility] Center[facility] Dai HO [facility] GLUCOSE LEVEL 2022-02-27 13:30:00 Moncho [facility] Dai HO [facility] BLOOD UREA NITROGEN 2022-02-27 13:30:00 [facility] Dai HO [facility] ELECTROLYTE PANEL 2022-02-27 13:30:00 Moncho Philip [facility] Dai HO [facility] SERUM CREATININE 2022-02-27 13:30:00 [facility] Dai HO [facility] .GLOMERULAR FILTRATION 2022-02-27 13:30:00 Moncho Philip [facility] RATE Dai HO [facility] CALCIUM LEVEL TOTAL 2022-02-27 13:30:00 [facility] Dai HO [facility] ALBUMIN LEVEL 2022-02-27 13:30:00 Moncho Philip [place] o [facility] [place] Dai HO [facility] ALKALINE PHOSPHATASE 2022-02-27 13:30:00 Moncho Philip, [facility] Dai HO [facility] [place] ALANINE AMINOTRANSFERASE 2022-02-27 13:30:00 Moncho Philip [facility] Dai HO [facility] [place] ASPARTATE AMINOTRANSFERASE 2022-02-27 13:30:00 Moncho Philip, [facility] Dai HO [facility] TOTAL PROTEIN 2022-02-27 13:30:00 Moncho Philip [place] o [facility] [place] Dai HO [facility] FRACTIONATED BILIRUBIN 2022-02-27 13:30:00 Moncho Philip [facility] Dai HO [facility] Results CBC 2022-02-27 13:30:00 Moncho Philip [place] o [facility] [place] Dai HO [facility] MANUAL DIFFERENTIAL 2022-02-27 13:30:00 Moncho Philip [facility] Dai HO [facility] COVID-19 (SARS-COV-2) PCR 2022-02-11 20:11:00 Moncho Philip, [facility] PETCT SUBSEQUENT TREATMENT 2022-02-07 20:05:40 Laurita Crouch [facility] STRATEGY Dai HO [facility] MRI BRAIN W WO CONTRAST 2022-02-04 15:41:00 Moncho Philip [facility] Dai HO [facility] [place] SPIROMETRY W/DILATORS, 2022-02-03 19:30:48 Moncho Philip [facility] DLCO AND BODY Dai HO [facility] er PLETHSMOGRAPHIC LUNG Center VOLUMES APTT 2022-02-03 18:10:00 Moncho Philip [place] o [facility] [place] Dai HO [facility] PROTHROMBIN TIME 2022-02-03 18:10:00 Moncho Philip [facility] Dai HO [facility] COMPLETE BLOOD COUNT W/ 2022-02-03 18:10:00 [facility] DIFFERENTIAL Dai HO [facility] COMPREHENSIVE METABOLIC 2022-02-03 18:10:00 [facility] PANEL Dai HO [facility] CORTISOL 2022-02-03 18:10:00 Moncho [facility] o [facility] [place] Dai HO [facility] THYROID STIMULATING 2022-02-03 18:10:00 [facility] HORMONE Dai HO [facility] HEPATITIS B SURFACE 2022-02-03 18:10:00 Moncho [facility] ANTIGEN, SERUM Dai HO [facility] HEPATITIS C VIRUS AB 2022-02-03 18:10:00 Moncho [facility] S[facility]EN W/REFLEX HCV PCR Dai HO [facility] AMYLASE LEVEL 2022-02-03 18:10:00 Moncho [facility] o [facility] [place] Dai HO [facility] LIPASE LEVEL 2022-02-03 18:10:00 [facility] o [facility] [place] Dai HO [facility] GAMMA GLUTAMYL TRANSFERASE 2022-02-03 18:10:00 Moncho Philip [facility] Dai HO [facility] LACTATE DEHYDROGENASE 2022-02-03 18:10:00 Moncho Philip [facility] Dai HO [facility] MAGNESIUM LEVEL 2022-02-03 18:10:00 Moncho [facility] o [facility] [place] Dai HO [facility] URINALYSIS WITH 2022-02-03 18:10:00 [facility] [place] MICROSCOPIC IF INDICATED Dai [facility] Results CBC 2022-02-03 18:10:00 Moncho [facility] o [facility] [place] Dai HO [facility] MANUAL DIFFERENTIAL 2022-02-03 18:10:00 [facility] Dai HO [facility] GLUCOSE LEVEL 2022-02-03 18:10:00 Moncho Philip [facility] Dai HO [facility] BLOOD UREA NITROGEN 2022-02-03 18:10:00 Moncho Philip [facility] Dai HO [facility] ELECTROLYTE PANEL 2022-02-03 18:10:00 Moncho Philip [facility] Dai [place] [facility] SERUM CREATININE 2022-02-03 18:10:00 Moncho Philip [facility] Adi [facility] .GLOMERULAR FILTRATION 2022-02-03 18:10:00 Moncho Philip [facility] Dai HO [facility] CALCIUM LEVEL TOTAL 2022-02-03 18:10:00 Moncho Philip [facility] Dai HO [facility] ALBUMIN LEVEL 2022-02-03 18:10:00 [facility] Dai HO [facility] ALKALINE PHOSPHATASE 2022-02-03 18:10:00 Moncho Philip [facility] Dai HO [facility] ALANINE AMINOTRANSFERASE 2022-02-03 18:10:00 Moncho Philip, [facility] Dai HO [facility] ASPARTATE AMINOTRANSFERASE 2022-02-03 18:10:00 Laurita Crouch [facility] Dai HO [facility] TOTAL PROTEIN 2022-02-03 18:10:00 [facility] Dai HO [facility] FRACTIONATED BILIRUBIN 2022-02-03 18:10:00 Moncho Philip [facility] Dai HO [facility] URINALYSIS MICROSCOPIC 2022-02-03 18:10:00 Moncho Philip [facility] Dai HO [facility] EKG, 12-LEAD (SCHEDULED) 2022-02-03 00:00:00 Moncho Philip [facility] Dai [facility] TISSUE SLIDES MATERIAL 2022-01-29 17:43:11 [facility] AP FISH ALK MATERIAL 2022-01-22 23:11:00 Moncho Philip [facility] REQUEST Dai HO [facility] AP FISH ROS1 MATERIAL 2022-01-22 23:11:00 Moncho Philip [facility] REQUEST Dai HO [facility] CT VENOGRAM BRAIN 2022-01-04 19:03:[address] [facility] MRI BRAIN W WO CONTRAST 2022-01-03 15:40:00 [facility] MDA LOR MUTATION 2022-01-03 15:20:00 Sofy Almendarez [facility] ANALYSIS PRECISION PANEL MD Novak [facility] Cancer REPORT [facility] HP SOLID TUMOR GENOMIC 2022-01-03 15:20:00 Sofy Almendarez [facility] ASSAY FUSIONS 2018 [facility] INTERPRETATION AND REPORT Center HP LB ROS1 FUSION ANALYSIS 2021-12-27 17:21:00 Sofy Almendarez [facility] COLLECTION, BLOOD [facility] HP LB RET FUSION ANALYSIS 2021-12-27 17:21:00 Sofy Almendarez [facility] COLLECTION, BLOOD [facility] HP LB MET MUTATION 2021-12-27 17:21:00 Sofy Almendarez [facility] ANALYSIS COLLECTION, BLOOD MD Nelson [facility] HP LB ERBB2 FULL GENE 2021-12-27 17:21:00 Sofy Almendarez [facility] MUTATION ANALYSIS [facility] BLOOD Center HP LB EML4/ALK FUSION 2021-12-27 17:21:00 Sofy Almendarez [facility] ANALYSIS COLLECTION, BLOOD MD [facility] HP LB BRAF MUTATION 2021-12-27 17:21:00 Sofy Almendarez [facility] ANALYSIS COLLECTION, BLOOD MD Nelson [facility] MD ANALILIA BLOOD CONTROL 2021-12-27 17:21:00 Sofy Almendarez [facility] HP LB LIQUID BIOPSY PANEL 2021-12-27 17:21:00 Sofy Almendarez [facility] V1 INTERPRETATION AND MD Jose [facility] AP IHC PD-L1 MATERIAL 2021-12-27 16:44:06 Sofy [facility]arez [facility] [place] [facility] MD [facility] AP ROS1 FUSION ANALYSIS 2021-12-27 16:44:06 Sofy Almendarez [facility] MATERIAL REQUEST [facility] AP RET FUSION ANALYSIS 2021-12-27 16:44:06 Sofy Almendarez [facility] MATERIAL REQUEST [facility] AP NTRK3 FUSION 2021-12-27 16:44:06 Sofy Almendarez [facility] ANALYSIS MATERIAL REQUEST [facility] AP NTRK2 FUSION 2021-12-27 16:44:06 Sofy Almendarez [facility] ANALYSIS MATERIAL REQUEST [facility] AP NTRK1 FUSION 2021-12-27 16:44:06 Sofy Almendarez [facility] ANALYSIS MATERIAL REQUEST [facility] AP KRAS MUTATION 2021-12-27 16:44:06 Sofy Almendarez [facility] MATERIAL REQUEST [facility] AP EML4/ALK FUSION 2021-12-27 16:44:06 Sofy Almendarez [facility] ANALYSIS MATERIAL REQUEST [facility] AP BRAF V600 E MUTATION 2021-12-27 16:44:06 Sofy Almendarez [facility] MATERIAL REQUEST [facility] CYTOLOGY IMAGE-GUIDED FNA 2021-12-21 18:05:00 Kaylie Mota [facility] [place] INTERPRETATION [facility] BRONCHOSCOPY WITH EBUS 3 2021-12-21 17:21:00 Kaylie Mota [facility] [place] OR MORE NODES [facility] COVID-19 (SARS-COV-2) 2021-12-20 18:44:00 Kaylie Mota [facility] [place] PCR ASYMPTOMATIC [facility] XR CHEST 2 VW 2021-12-09 16:37:52 Jose Abernathy [facility] IR CHEST XRAY 1 VIEW 30 2021-12-02 19:53:15 Jennifer Everett [facility] IR CHEST XRAY 1 VIEW 30 2021-12-02 16:48:48 Marguerite Jennifer [facility] IR CT GUIDED BIOPSY 2021-12-02 16:40:35 Jose Abernathy [facility] LUNG/MEDIASTINAL 75 [facility] PATHOLOGY BIOPSY 2021-12-02 16:15:00 Jose Abernathy [facility] INTERPRETATION [facility] SPIROMETRY W/DILATORS, 2021-12-01 19:27:05 Jose Abernathy [facility] DLCO AND BODY [facility] PLETHSMOGRAPHIC LUNG Center VOLUMES COVID-19 (SARS-COV-2) 2021-12-01 15:36:00 Jose Abernathy [facility] PCR-ASYMPTOMATIC [facility] EKG, 12-LEAD (SCHEDULED) 2021-12-01 00:00:00 Jose [facility] CRYPTOCOCCAL ANTIGEN, 2021-11-29 23:01:00 Jose Aber[facility]athy [facility] SERUM [facility] CRYPTOCOCCAL ANTIGEN, 2021-11-29 23:01:00 Jose Abernathy [facility] SERUM PATH REVIEW [facility] COMPREHENSIVE METABOLIC 2021-11-29 23:01:00 Jose Abernathy [facility] [place] PANEL [facility] COMPLETE BLOOD COUNT W/ 2021-11-29 23:01:00 Jose Aber[facility]athy [facility] DIFFERENTIAL [facility] PROTHROMBIN TIME 2021-11-29 23:01:00 Jose Abernathy [facility] APTT 2021-11-29 23:01:00 Jose Abernathy [facility] HEPATITIS B SURFACE 2021-11-29 23:01:00 Jose Abernathy [facility] ANTIGEN, SERUM [facility] HEPATITIS B CORE ANTIBODY 2021-11-29 23:01:00 Jose Abernathy [facility] HEPATITIS C VIRUS ANTIBODY 2021-11-29 23:01:00 Jose Abernathy [facility] THYROID STIMULATING 2021-11-29 23:01:00 Jose Abernathy [facility] HORMONE [facility] COCCIDIOIDES ANTIBODY 2021-11-29 23:01:00 Jose Abernathy [facility] HISTOPLASMA ANTIBODY 2021-11-29 23:01:00 Jose Abernathy [facility] SCREEN, SERUM [facility] T-SPOT TUBERCULOSIS 2021-11-29 23:01:[address] [facility] GLUCOSE LEVEL 2021-11-29 23:01:00 Jose Abernathy [facility] BLOOD UREA NITROGEN 2021-11-29 23:01:[address] [facility] ELECTROLYTE PANEL 2021-11-29 23:01:00 Jose Abernathy [facility] SERUM CREATININE 2021-11-29 23:01:00 Jose Abernathy [facility] .GLOMERULAR FILTRATION 2021-11-29 23:01:00 Jose Abernathy [facility] RATE [facility] CALCIUM LEVEL TOTAL 2021-11-29 23:01:[address] [facility] ALBUMIN LEVEL 2021-11-29 23:01:00 Jose Abernathy [facility] ALKALINE PHOSPHATASE 2021-11-29 23:01:00 Jose Abernathy [facility] ALANINE AMINOTRANSFERASE 2021-11-29 23:01:00 Jose Abernathy [facility] ASPARTATE AMINOTRANSFERASE 2021-11-29 23:01:00 Jose Abernathy [facility] TOTAL PROTEIN 2021-11-29 23:01:00 Jose Abernathy [facility] FRACTIONATED BILIRUBIN 2021-11-29 23:01:00 Jose Abernathy [facility] Results CBC 2021-11-29 23:01:00 Jose Abernathy [facility] MANUAL DIFFERENTIAL 2021-11-29 23:01:[address] [facility] OSI PET CT SKULL TO MID 2021-11-29 04:06:00 Brandyn Clay [facility] OSI CT CHEST 2021-11-16 07:06:00 Brandyn Counts Include [facility] o f [facility] OSI BONE DENSITY STUDY 2021-10-28 07:06:00 Brandyn [facility] Plan of Care Planned Activity Planned Date Details Comments Source Future Scheduled 2023-04-09 COVID-19 Vaccination [facility] [place] Test 08:39:33 (#1) [code = COVID-19 MD [facility] Vaccination (#1)] Center Future Scheduled 2023-01-18 COVID-19 Vaccination Uni versity [...] Clinicians Facility Department ID 2022-08-08 Outpatient SYSTEM, [facility] LEONA [id number] 11:08:18 PROVIDER Darryl o n 2022-06-21 Outpatient SYSTEM, MDA MDA [id number] 12:09:14 PROVIDER Darryl wiseman 2022-05-17 Outpatient SYSTEM, MDA [place] [id number] 10:45:58 PROVIDER Darryl wiseman 2021-11-21 Outpatient SYSTEM, MDA [place] [id number] 15:33:59 PROVIDER Darryl wiseman 2023-04-08 2023-04-08 Refill Mauri Barr 1.2.840.1 [id number] Univers 00:00:00 00:00:00 65355.1.1 ity of 3.412.2.7 [place] .3.362596 .8 [facility] 2023-03-12 2023-03-12 Outpatient MORE BARAKAT [id number] More 00:00:00 00:00:00 LEODAN pollard 2023-03-09 2023-03-09 Refill Mauri Barr 1.2.840.1 [id number] Univers 00:00:00 00:00:00 48912.1.1 ity of 3.412.2.7 [place] .3.650506 .8 [facility] 2023-03-08 2023-03-08 Telephone Noemí [facility] [[email or web address]] [id number] [id number] Univers 00:00:00 00:00:00 Nathanael TEJADA 350.1.13.10 i ty [phone] Ct dical NAL 085 [facility] 2023-03-08 2023-03-08 Orders Doctor GALO 1.2.840.114 [id number] Univers 00:00:00 00:00:00 Only Unassigned, VOLODYMYR 350.1.13.10 [facility] 4.2.7.2.686 Bladimir as [phone] [address] 2023-02-26 2023-02-26 Outpatient LAB90 MORE FLOWERS [id number] More 15:50:00 15:50:00 Nileshol atul 2023-02-26 2023-02-26 Outpatient MORE BARAKAT [id number] More 15:00:00 15:00:00 LEODAN pollard 2023-02-12 2023-02-12 Outpatient KINDRA LAI MDA MDA [id number] 09:10:52 09:21:29 CHERRY wiseman 2023-02-12 2023-02-12 Telemedici Michael, 1.2.840.1 [id number] Univers 08:15:00 09:21:29 ne Cherry 43083.1.1 ity of 3.412.2.7 [place] .3.971372 .8 [facility] 2023-02-10 2023-02-10 Mauri Ballesteros 1.2.840.1 [id number] Univers 00:00:00 00:00:00 96632.1.1 ity of 3.412.2.7 [place] .3.630227 .8 [facility] 2023-02-08 2023-02-08 Outpatient MORE BARAKAT [id number] More 00:00:00 00:00:00 LEODAN pollard 2023-02-05 2023-02-05 Telemedici Moncho 1.2.840.1 [id number] [facility] 11:00:00 11:00:00 leidy Philip 78891.1.1 ity of Dai 3.412.2.7 [place] .3.052562 .8 [facility] bowen [facility] 2023-02-05 2023-02-05 Outpatient KINDRA FRANCO MDA, MDA [id number] 10:10:25 10:15:38 Darryl PHILIP 2023-02-02 2023-02-02 Ancillary Tanesha, 1.2.840.1 [id number] [facility] 12:20:00 14:45:00 Procedure Sofy Brizuela 52472.1.1 ity of 3.412.2.7 [place] .3.907022 .8 [facility] 2023-02-02 2023-02-02 Outpatient KINDRA ALMENDAREZ MDA MDA [id number] 10:22:38 10:22:38 SOFY Novak rso n 2023-02-02 2023-02-02 Outpatient TANESHA, [facility] MDA [id number] 10:11:19 10:18:07 SOFY wayo n 2023-02-02 2023-02-02 Telephone Jeannette, 1.2.840.1 [id number] Univers 00:00:00 00:00:00 Lucia Pollard 33242.1.1 ity of 3.412.2.7 [place] .3.144600 MD Lott8 [facility] 2023-02-02 2023-02-02 Travel 1.2.840.1 1.2.450.993 [id number] Univers 00:00:00 00:00:00 75229.1.1 350.1.13.41 ity of 3.412.2.[place].698 [place] .[place].977899 084.8 MD Lott8 [facility] 2023-01-29 2023-01-29 Outpatient TANESHA, [facility] [id number] 10:23:26 10:23:26 SOFY Novak rso n 2023-01-27 2023-01-27 Ancillary Tanesha, 1.2.840.1 [id number] Univers 20:00:00 20:05:00 Procedure Sofy Brizuela 16995.1.1 ity of 3.412.2.7 [place] .3.990263 MD Mccurdy [facility] 2023-01-27 2023-01-27 Orders Tanesha, 1.2.840.1 [id number] Univers 00:00:00 00:00:00 Only Sofy Brizuela 06297.1.1 ity of 3.412.2.7 [place] .3.806693 MD Mccurdy [facility] 2023-01-23 2023-01-23 Orders Tanehsa, 1.2.840.1 [id number] Univers 00:00:00 00:00:00 Only Sofy Brizuela 54989.1.1 ity of 3.412.2.7 [place] .3.182366 MD Mccurdy [facility] 2023-01-22 2023-01-22 Orders Tanesha, 1.2.840.1 [id number] Univers 00:00:00 00:00:00 Only Sofy Chata 46566.1.1 ity of 3.412.2.7 [place] .3.420316 MD Lott8 [facility] 2023-01-19 2023-01-19 Outpatient MOER BARAKAT [id number] More 00:00:00 00:00:00 LEODAN Seybol d 2023-01-17 2023-01-17 Outpatient LAB90 MORE FLOWERS [id number] [place] 09:05:00 09:05:00 Seybol d 2023-01-16 2023-01-16 Outpatient MORE BARAKAT [id number] More 14:30:00 14:30:00 LEODAN Gallowayol atul 2023-01-16 2023-01-16 Ancillary Franklin, 1.2.840.1 [id number] Jae 08:15:00 10:00:00 Procedure Sally Vaughn 05640.1.1 ity of 3.412.2.7 [place] .3.047697 MD Lott8 [facility] 2023-01-16 2023-01-16 Ancillary KINDRA GILLIS, 1.2.840.1 [id number] 07:57:31 07:57:31 Procedure SALLY 59480.1.1 A nderso 3.412.2.7 n .3.647318 .8 2023-01-16 2023-01-16 Travel 1.2.840.1 1.2.221.356 [id number] [facility] 00:00:00 00:00:00 81668.1.1 350.1.13.41 ity of 3.412.2.[place].698 [place].16[place] 084.8 MD Mccurdy [facility] 2023-01-16 2023-01-16 Travel 1.2.840.1 1.2.740.825 [id number] Univers 00:00:00 00:00:00 80646.1.1 350.1.13.41 ity of 3.412.2.[place].698 [place]3.977205 084.8 MD Mccurdy [facility] 2023-01-12 2023-01-12 Telemamy Kay, 1.2.840.1 [id number] Univers 08:00:00 08:30:00 ne Tana Montenegro 84469.1.1 ity of 3.412.2.7 [place] .3.464658 MD Lott8 [facility] 2023-01-12 2023-01-12 Telemamy Kay, 1.2.840.1 [id number] Univers 08:00:00 08:30:00 ne Tana Montenegro 65750.1.1 ity of 3.412.2.7 [place] .3.109848 MD Lott8 [facility] 2023-01-10 2023-01-10 Telephone Albarran, 1.2.840.1 [id number] Univers 00:00:00 00:00:00 Bruna A 15484.1.1 ity of 3.412.2.7 [place] .3.409297 MD Lott8 [facility] 2023-01-10 2023-01-10 Telephone Albarran, 1.2.840.1 [id number] Univers 00:00:00 00:00:00 Bruna A 78477.1.1 ity of 3.412.2.7 [place] .3.483229 MD Lott8 [facility] 2023-01-09 2023-01-09 Outpatient KINDRA KAY [facility] [id number] 09:51:12 09:58:38 TANA Andrews [facility] 2023-01-09 2023-01-09 Travel 1.2.840.1 1.2.960.907 [id number] [facility] 00:00:00 00:00:00 12717.1.1 350.1.13.41 ity of 3.412.2.[place].3.698 [place] .3.805570 084.8 .8 [facility] 2023-01-09 2023-01-09 Travel 1.2.840.1 1.2.422.905 [id number] Univers 00:00:00 00:00:00 09021.1.1 350.1.13.41 ity of 3.412.2.7 [place].3.698 [place] .3.602962 084.8 .8 [facility] 2022-12-28 2022-12-28 [facility] 1.2.668.990 [id number] Univers 00:00:00 00:00:00 Nathanael TEJADA 350.1.13.10 i ty [place] PROF[place] [id number] Ct dical NAL [address] [place] [address] 2022-12-27 2022-12-27 Outpatient MORE BARAKAT [id number] More 00:00:00 00:00:00 LEODAN pollard 2022-12-27 2022-12-27 Outpatient MORE BARAKAT [id number] More 00:00:00 00:00:00 LEODAN pollard 2022-12-08 2022-12-08 Outpatient R NATAHNAEL THOMPSON [facility] [id number] Univers 10:30:00 14:17:28 NATHANAEL THOMPSON i ty of [facility] 2022-12-08 2022-12-08 Office Noemí [facility] [[email or web address]] 1.2.840.114 [id number] [facility] 10:30:00 11:00:00 Visit Nathanael TEJADA 350.1.13.10 i ty [facility] [place] [id number] Ct dical NAL [address] [place] [address] 2022-11-27 2022-11-27 Outpatient MORE BARAKAT [id number] More 00:00:00 00:00:00 LEODAN pollard 2022-11-20 2022-11-20 [facility] Mauri Barr 1.2.840.1 [id number] Univers 15:20:00 23:59:00 Encounter 48134.1.1 it y of 3.412.2.7 [place] .3.819547 MD Mccurdy [facility] 2022-11-20 2022-11-20 [facility] Mauri Kapoor 1.2.840.1 [id number] Univers 15:20:00 23:59:00 Encounter 21901.1.1 it y of 3.412.2.7 [place] .3.774793 MD Mccurdy [facility] 2022-11-16 2022-11-16 Outpatient MORE CARTER [id number] More 11:45:00 11:45:00 HECTOR pollard 2022-11-11 2022-11-11 [facility] 1.2.840.1 [id number] Univers 00:00:00 00:00:00 64777.1.1 ity of 3.412.2.7 [place] .3.817195 MD Mccurdy [facility] 2022-11-11 2022-11-11 [facility] Hamilton 1.2.840.1 [id number] Univers 00:00:00 00:00:00 09777.1.1 ity of 3.412.2.7 [place] .3.548431 MD Mccurdy [facility] 2022-11-09 2022-11-09 Joanna Ross 1.2.840.1 [id number] Univers 00:00:00 00:00:00 Only 40625.1.1 ity of 3.412.2.7 [place] .3.244181 MD Mccurdy [facility] 2022-11-09 2022-11-09 Joanna Ross 1.2.840.1 [id number] Univers 00:00:00 00:00:00 Only 35476.1.1 ity of 3.412.2.7 [place] .3.236918 MD Mccurdy [facility] 2022-11-08 2022-11-08 Piedad Gillis 1.2.840.1 [id number] Univers 00:00:00 00:00:00 Only Sally Vaughn 91138.1.1 i ty of 3.412.2.7 [place] .3.377978 MD Lott8 [facility] 2022-11-08 2022-11-08 Piedad Gillis 1.2.840.1 [id number] Univers 00:00:00 00:00:00 Only Sally J 75144.1.1 i ty of 3.412.2.7 [place] .3.230281 MD Lott8 [facility] 2022-11-06 2022-11-06 Telemedici Moncho 1.2.840.1 [id number] Univers 10:00:00 13:18:38 ne Xander, 04390.1.1 ity of Dai 3.412.2.7 [place] .3.181454 MD Lott8 [facility] 2022-11-06 2022-11-06 Telemedici KINDRA Franco 1.2.840.1 [id number] Univers 10:00:00 13:18:38 ne Xander, 28882.1.1 ity of Dai 3.412.2.7 [place] .3.202067 MD Mccurdy [facility] 2022-11-02 2022-11-02 Ancillary Rian, 1.2.840.1 [id number] Univers 09:55:00 11:20:00 Procedure Josephine 13458.1.1 i ty of 3.412.2.7 [place] .3.155089 MD Lott8 [facility] 2022-11-02 2022-11-02 Ancillary EL Rian, 1.2.840.1 [id number] Univers 09:55:00 11:20:00 Procedure Josephine 00343.1.1 i ty of 3.412.2.7 [place] .3.439712 MD Lott8 [facility] 2022-11-02 2022-11-02 Outpatient EL TANESHA, MDA MDA [id number] 08:54:07 09:04:50 SOFY Novak rso n 2022-11-02 2022-11-02 Travel 1.2.840.1 1.2.080.047 [id number] Univers 00:00:00 00:00:00 55404.1.1 350.1.13.41 ity of 3.412.2.7 [place]7.3.698 [place] .3.358635 084.8 MD Mccurdy [facility] 2022-11-02 2022-11-02 Travel 1.2.840.1 1.2.706.199 [id number] Univers 00:00:00 00:00:00 66175.1.1 350.1.13.41 ity of 3.412.2.7 [place].3.698 [place] .3.263945 084.8 MD Mccurdy [facility] 2022-10-31 2022-10-31 Outpatient MORE BARAKAT [id number] More 00:00:00 00:00:00 LEODAN pollard 2022-10-25 2022-10-25 Piedad Gillis 1.2.840.1 [id number] Univers 00:00:00 00:00:00 Only Sally Vaughn 62866.1.1 i ty of 3.412.2.7 [place] .3.127849 MD Mccurdy [facility] 2022-10-25 2022-10-25 Piedad Gillis 1.2.840.1 [id number] Univers 00:00:00 00:00:00 Only Sally Vaughn 29739.1.1 i ty of 3.412.2.7 [place] .3.870435 MD Mccurdy [facility] 2022-10-24 2022-10-24 Evin Gillis 1.2.840.1 [id number] Univers 00:00:00 00:00:00 Sally Vaughn 25164.1.1 i ty of 3.412.2.7 [place] .3.480359 MD Mccurdy [facility] 2022-10-24 2022-10-24 Refill Franklin 1.2.840.1 [id number] Univers 00:00:00 00:00:00 Sally Vaughn 91944.1.1 i ty of 3.412.2.7 [place] .3.354186 .8 [facility] 2022-10-11 2022-10-11 Outpatient MORE BARAKAT [id number] More 00:00:00 00:00:00 LEODAN pollard 2022-10-07 2022-10-07 Refill Mauri Barr 1.2.840.1 [id number] Univers 00:00:00 00:00:00 86241.1.1 ity of 3.412.2.7 [place] .3Kaylie137015 .8 [facility] 2022-10-07 2022-10-07 RefMauri Hamilton 1.2.840.1 [id number] Univers 00:00:00 00:00:00 89431.1.1 ity of 3.412.2.7 [place] .3Kaylie271478 .8 [facility] 2022-10-04 2022-10-04 Outpatient MORE BARAKAT [id number] More 09:00:00 09:00:00 LEODAN pollard 2022-10-02 2022-10-02 Outpatient MORE BARAKAT [id number] More 00:00:00 00:00:00 LEODAN pollard 2022-09-29 2022-09-29 Telephone Tanesha, 1.2.840.1 [id number] Univers 00:00:00 00:00:00 Sofy Brizuela 19123.1.1 ity of 3.412.2.7 [place] .3Kaylie471684 .8 [facility] 2022-09-29 2022-09-29 Telephone Cande, 1.2.840.1 [id number] Univers 00:00:00 00:00:00 Lilian 77417.1.1 ity of 3.412.2.7 [place] .3.006422 MD Lott8 [facility] 2022-09-29 2022-09-29 Telephone Delfinojustina, 1.2.840.1 [id number] Univers 00:00:00 00:00:00 Lilian 99868.1.1 ity of 3.412.2.7 [place] .3.330730 MD Lott8 [facility] 2022-09-29 2022-09-29 Telephone Tanesha, 1.2.840.1 [id number] Univers 00:00:00 00:00:00 Sofy E 85464.1.1 ity of 3.412.2.7 [place] .3.825335 MD Lott8 [facility] 2022-09-22 2022-09-22 Orders Rian, 1.2.840.1 [id number] Univers 00:00:00 00:00:00 Only Josephine 26953.1.1 ity of 3.412.2.7 [place] .3.184394 MD Lott8 [facility] 2022-09-22 2022-09-22 Orders Rian, 1.2.840.1 [id number] Univers 00:00:00 00:00:00 Only Josephine 46890.1.1 ity of 3.412.2.7 [place] .3.777871 MD Mccurdy [facility] 2022-09-12 2022-09-12 [facility] Tanesha, 1.2.840.1 [id number] Univers 08:40:57 23:59:00 Encounter Sofy E 68393.1.1 ity of 3.412.2.7 [place] .3.228113 MD Lott8 [facility] 2022-09-12 2022-09-12 [facility] Tanesha, 1.2.840.1 [id number] Univers 08:40:57 23:59:00 Encounter Sofy E 33926.1.1 ity of 3.412.2.7 [place] .3.681782 MD Mccurdy [facility] 2022-09-12 2022-09-12 Consult Jim, 1.2.840.1 [id number] Univers 09:30:00 10:44:27 Tana Montenegro 90785.1.1 ity of 3.412.2.7 [place] .3.697679 MD Mccurdy [facility] 2022-09-12 2022-09-12 Consult KINDRA Kay, 1.2.840.1 [id number] Univers 09:30:00 10:44:27 Tana Montenegro 66423.1.1 ity of 3.412.2.7 [place] .3.747904 MD Mccurdy [facility] 2022-09-12 2022-09-12 Travel 1.2.840.1 1.2.727.364 [id number] Univers 00:00:00 00:00:00 13363.1.1 350.1.13.41 ity of 3.412.2.7 [place]3.698 [place] .3.823907 084.8 MD Mccurdy [facility] 2022-09-12 2022-09-12 Travel 1.2.840.1 1.2.001.112 [id number] Univers 00:00:00 00:00:00 40007.1.1 350.1.13.41 ity of 3.412.2.[place]3.698 [place] .3.167479 084.8 MD Mccurdy [facility] 2022-09-04 2022-09-04 Orders Vanessa, 1.2.840.1 [id number] Univers 00:00:00 00:00:00 Only Moushumi 91428.1.1 ity of 3.412.2.7 [place] .3.503413 MD Mccurdy [facility] 2022-09-04 2022-09-04 Orders Vanessa, 1.2.840.1 [id number] Univers 00:00:00 00:00:00 Only Moushumi 13997.1.1 ity of 3.412.2.7 [place] .3Kaylie374343 MD Mccurdy [facility] 2022-09-01 2022-09-01 [facility] Mauri Barr 1.2.840.1 [id number] Univers :35:17 23:59:00 Encounter 49053.1.1 it y of 3.412.2.7 [place] .3Vamsi628644 MD Lott8 [facility] 2022-09-01 2022-09-01 [facility] Mauri Barr 1.2.840.1 [id number] Univers :35:17 23:59:00 Encounter 36946.1.1 it y of 3.412.2.7 [place] .3Kaylie358846 MD Mccurdy [facility] 2022-09-01 2022-09-01 Outpatient MORE BARAKAT [id number] More 00:00:00 00:00:00 LEODAN pollard 2022-09-01 2022-09-01 [facility] Mauri Barr 1.2.840.1 [id number] Univers 00:00:00 00:00:00 47164.1.1 ity of 3.412.2.7 [place] .3Kaylie555200 MD Mccurdy [facility] 2022-09-01 2022-09-01 [facility] Mauri Barr 1.2.840.1 [id number] Univers 00:00:00 00:00:00 20232.1.1 ity of 3.412.2.7 [place] .3Vamsi837821Ciara Mccurdy [facility] 2022-08-30 2022-08-30 Telephone Derrek, 1.2.840.1 [id number] 1103 [id number] Univers 00:00:00 00:00:00 Cyndy Wayne50.1.1 i ty of 3.412.2.7 [place] .3Vamsi517268Ciara Mccurdy [facility] 2022-08-30 2022-08-30 Telephone Derrek, 1.2.840.1 [id number] 1103 [id number] Univers 00:00:00 00:00:00 Cyndy L 64726.1.1 i ty of 3.412.2.7 [place] .3.955693 .8 [facility] 2022-08-21 2022-08-21 Telemedici Moncho 1.2.840.1 [id number] Univers 15:20:00 15:20:00 ne Pearlo, 46889.1.1 ity of Dai 3.412.2.7 [place] .3.517136 .8 [facility] 2022-08-21 2022-08-21 Telemedici KINDRA Franco 1.2.840.1 [id number] Univers 15:20:00 15:20:00 ne Xander, 41179.1.1 ity of Dai 3.412.2.7 [place] .3.970753 MD Lott8 [facility] 2022-08-21 2022-08-21 Outpatient EL TANESHA, MDA MDA [id number] MD 10:06:55 10:43:55 SOFY Novak o n 2022-08-21 2022-08-21 Travel 1.2.840.1 1.2.478.657 0177 [id number] Univers 00:00:00 00:00:00 03678.1.1 350.1.13.41 ity of 3.412.2.7 [place]7.3.698 [place] .3.871526 084.8 MD Lott8 [facility] 2022-08-21 2022-08-21 Travel 1.2.840.1 1.2.331.765 9227 [id number] Univers 00:00:00 00:00:00 20153.1.1 350.1.13.41 ity of 3.412.2.7 [place].7.3.698 [place] .3.619136 084.8 MD Lott8 [facility] 2022-08-15 2022-08-15 Piedad Almendarez, 1.2.840.1 [id number] Univers 00:00:00 00:00:00 Only Sofy Brizuela 14298.1.1 ity of 3.412.2.7 [place] .3.639636 MD Mccurdy [facility] 2022-08-15 2022-08-15 Orders Tanesha, 1.2.840.1 [id number] Univers 00:00:00 00:00:00 Only Sofy E 44820.1.1 ity of 3.412.2.7 [place] .3.143882 MD Lott8 [facility] 2022-08-14 2022-08-14 Outpatient EL TANESHA, MDA MDA [id number] MD 09:15:57 09:23:01 SOFY Kishore [facility] 2022-08-14 2022-08-14 Travel 1.2.840.1 1.2.369.857 7194 [id number] Univers 00:00:00 00:00:00 87236.1.1 350.1.13.41 ity of 3.412.2.7 2.[place].7.3.698 [place] .3.641398 084.8 MD Mccurdy [facility] 2022-08-14 2022-08-14 Travel 1.2.840.1 1.2.268.226 3985 [id number] Univers 00:00:00 00:00:00 98174.1.1 350.1.13.41 ity of 3.412.2.7 2.[place].7.3.698 [place] .3.470649 084.8 MD Mccurdy [facility] 2022-08-10 2022-08-10 Ancillary Tanesha, 1.2.840.1 [id number] 1103 [id number] Univers 20:05:00 20:10:00 Procedure Sofy E 79334.1.1 ity of 3.412.2.7 [place] .3.369111 MD Mccurdy [facility] 2022-08-10 2022-08-10 Ancillary EL Tanesha, 1.2.840.1 [id number] 1103 [id number] Univers 20:05:00 20:10:00 Procedure Sofy E 30685.1.1 ity of 3.412.2.7 [place] .3.860432 MD Mccurdy [facility] 2022-08-10 2022-08-10 Ancillary Tanesha, 1.2.840.1 [id number] 1103 [id number] Univers 20:00:00 20:05:00 Procedure Sofy E 84102.1.1 ity of 3.412.2.7 [place] .3.404307 MD Lott8 [facility] 2022-08-10 2022-08-10 Ancillary EL Tanesha, 1.2.840.1 [id number] 1103 [id number] Univers 20:00:00 20:05:00 Procedure Sofy E 55809.1.1 ity of 3.412.2.7 [place] .3.959755 MD Lott8 [facility] 2022-08-10 2022-08-10 Orders Tanesha, 1.2.840.1 [id number] Univers 00:00:00 00:00:00 Only Sofy E 14621.1.1 ity of 3.412.2.7 [place] .3.915289 MD Lott8 [facility] 2022-08-10 2022-08-10 Orders Tanesha, 1.2.840.1 [id number] Univers 00:00:00 00:00:00 Only Sofy E 01525.1.1 ity of 3.412.2.7 [place] .3.240833 MD Mccurdy [facility] 2022-08-09 2022-08-09 Refill Tanesha, 1.2.840.1 [id number] Univers 00:00:00 00:00:00 Sofy E 27460.1.1 ity of 3.412.2.7 [place] .3.496933 MD Lott8 [facility] 2022-08-09 2022-08-09 Refill Tanesha, 1.2.840.1 [id number] Univers 00:00:00 00:00:00 Sofy E 30383.1.1 ity of 3.412.2.7 [place] .3.526324 MD Lott8 [facility] 2022-08-07 2022-08-07 Outpatient EL TANESHA, MDA MDA [id number] 09:10:15 09:37:45 SOFYKITTY Novak rso n 2022-08-07 2022-08-07 Orders Tanesha, 1.2.840.1 [id number] Univers 00:00:00 00:00:00 Only Sofy E 69664.1.1 ity of 3.412.2.7 [place] .3.097948 MD Lott8 [facility] 2022-08-07 2022-08-07 Telephone Yung, 1.2.840.1 [id number] [id number] Univers 00:00:00 00:00:00 Holly 60204.1.1 ity of 3.412.2.7 [place] .3.391412 MD Mccurdy [facility] 2022-08-07 2022-08-07 Orders Tanesha, 1.2.840.1 [id number] Univers 00:00:00 00:00:00 Only Sofy Chata 48645.1.1 ity of 3.412.2.7 [place] .3.556819 MD Mccurdy [facility] 2022-08-07 2022-08-07 Orders Tanesha, 1.2.840.1 [id number] Univers 00:00:00 00:00:00 Only Sofy E 18881.1.1 ity of 3.412.2.7 [place] .3.645916 MD Mccurdy [facility] 2022-08-07 2022-08-07 Telephone Yung, 1.2.840.1 [id number] [id number] Univers 00:00:00 00:00:00 Holly 02546.1.1 ity of 3.412.2.7 [place] .3.690117 MD Lott8 [facility] 2022-08-07 2022-08-07 Orders Tanesha, 1.2.840.1 [id number] Univers 00:00:00 00:00:00 Only Sofy E 22131.1.1 ity of 3.412.2.7 [place] .3.236426 MD Mccurdy [facility] 2022-08-04 2022-08-04 [facility] Mauri 1.2.840.1 [id number] 1 [id number] Univers 10:11:22 23:59:00 Encounter 20249.1.1 it y of 3.412.2.7 [place] .3.265681 MD Mccurdy [facility] 2022-08-04 2022-08-04 [facility] Mauri Barr 1.2.840.1 [id number] 1 [id number] Univers 10:11:22 23:59:00 Encounter 98250.1.1 it y of 3.412.2.7 [place] .3.180301 MD Mccurdy [facility] 2022-08-04 2022-08-04 Telephone Tanesha, 1.2.840.1 [id number] 1102 [id number] Univers 00:00:00 00:00:00 Sofy Brizuela 48085.1.1 ity of 3.412.2.7 [place] .3.056347 MD Mccurdy [facility] 2022-08-04 2022-08-04 Travel 1.2.840.1 1.2.895.743 1791 [id number] Univers 00:00:00 00:00:00 61817.1.1 350.1.13.41 ity of 3.412.2.7 [place].7.3.698 [place]3.287880 084.8 MD Mccurdy [facility] 2022-08-04 2022-08-04 Telephone Tanesha, 1.2.840.1 [id number] 1102 [id number] Univers 00:00:00 00:00:00 Sofy Brizuela 97892.1.1 ity of 3.412.2.7 [place] .3.494522 MD Mccurdy [facility] 2022-08-04 2022-08-04 Travel 1.2.840.1 1.2.942.443 5921 [id number] Univers 00:00:00 00:00:00 68304.1.1 350.1.13.41 ity of 3.412.2.7 2.[place].7.3.698 [place] .3.314443 084.8 MD .8 [facility] 2022-08-02 2022-08-02 Ancillary Tanesha, 1.2.840.1 [id number] 1102 [id number] Univers 13:30:00 16:00:00 Procedure Sofy Brizuela 52634.1.1 ity of 3.412.2.7 [place] .3.422309 MD Lott8 [facility] 2022-08-02 2022-08-02 Ancillary KINDRA Almendarez, 1.2.840.1 [id number] 1102 [id number] Univers 13:30:00 16:00:00 Procedure Sofy Brizuela 04048.1.1 ity of 3.412.2.7 [place] .3.952775 MD Mccurdy [facility] 2022-08-02 2022-08-02 Outpatient KINDRA ALMENDAREZ, [facility] MDA [id number] MD 11:06:37 11:24:51 SOFYKITTY Novak [facility] 2022-08-02 2022-08-02 Travel 1.2.840.1 1.2.026.509 3281 [id number] Univers 00:00:00 00:00:00 43122.1.1 350.1.13.41 ity of 3.412.2.7 2.[place].7.3.698 [place] .3.492307 084.8 MD Mccurdy [facility] 2022-08-02 2022-08-02 Travel 1.2.840.1 1.2.084.435 7631 [id number] Univers 00:00:00 00:00:00 81692.1.1 350.1.13.41 ity of 3.412.2.7 2.2.7.3.698 [place] .3.022268 084.8 MD Mccurdy [facility] 2022-07-31 2022-07-31 Office Michael 1.2.840.1 [id number] Univers 08:45:00 10:23:02 Visit Cherry 00992.1.1 ity of 3.412.2.7 [place] .3.741042 MD Mccurdy [facility] 2022-07-31 2022-07-31 Office KINDRA Lai, 1.2.840.1 [id number] 6376 Univers 08:45:00 10:23:02 Visit Cherry 38782.1.1 ity of 3.412.2.7 [place] .3.622998 MD Mccurdy [facility] 2022-07-31 2022-07-31 Outpatient MORE BARAKAT [id number] More 00:00:00 00:00:00 LEODAN pollard 2022-07-31 2022-07-31 Orders [place], 1.2.840.1 [id number] Univers 00:00:00 00:00:00 Only Max 16272.1.1 ity of 3.412.2.7 [place] .3.783057 MD Mccurdy [facility] 2022-07-31 2022-07-31 Orders Tanesha, 1.2.840.1 [id number] Univers 00:00:00 00:00:00 Only Sofy Brizuela 25480.1.1 ity of 3.412.2.7 [place] .3.954075 MD Mccurdy [facility] 2022-07-31 2022-07-31 Orders Tnaesha, 1.2.840.1 [id number] Univers 00:00:00 00:00:00 Only Sofy Brizuela 77523.1.1 ity of 3.412.2.7 [place] .3.152956 MD Mccurdy [facility] 2022-07-31 2022-07-31 Travel 1.2.840.1 1.2.458.243 9492 [id number] Univers 00:00:00 00:00:00 86879.1.1 350.1.13.41 ity of 3.412.2.7 2.2.7.3.698 [place] .3.406150 084.8 MD Mccurdy [facility] 2022-07-31 2022-07-31 Orders [place], 1.2.840.1 [id number] 11 [id number] Univers 00:00:00 00:00:00 Only Max 39942.1.1 ity of 3.412.2.7 [place] .3.482160 MD Mccurdy [facility] 2022-07-31 2022-07-31 Orders Tanesha, 1.2.840.1 [id number] Univers 00:00:00 00:00:00 Only Sofy Brizuela 71558.1.1 ity of 3.412.2.7 [place] .3.695481 MD Mccurdy [facility] 2022-07-31 2022-07-31 Orders Tanesha, 1.2.840.1 [id number] Univers 00:00:00 00:00:00 Only Sofy Brizuela 32538.1.1 ity of 3.412.2.7 [place] .3.650060 MD Mccrudy [facility] 2022-07-31 2022-07-31 Travel 1.2.840.1 1.2.569.926 5187 [id number] Univers 00:00:00 00:00:00 66486.1.1 350.1.13.41 ity of 3.412.2.7 2.2.7.3.698 [place] .3.191204 084.8 MD Mccurdy [facility] 2022-07-28 2022-07-28 Orders Tanesha, 1.2.840.1 [id number] Univers 00:00:00 00:00:00 Only Sofy Brizuela 93514.1.1 ity of 3.412.2.7 [place] .3.480190 MD [facility]ccurdy [facility] 2022-07-28 2022-07-28 Orders Tanesha, 1.2.840.1 [id number] Univers 00:00:00 00:00:00 Only Sofy E 22048.1.1 ity of 3.412.2.7 [place] .3.122284 MD Mccurdy [facility] 2022-07-27 2022-07-27 Orders Rian, 1.2.840.1 [id number] 7560 Univers 00:00:00 00:00:00 Only Josephine 88698.1.1 ity of 3.412.2.7 [place] .3.683287 MD Lott8 [facility] 2022-07-27 2022-07-27 Orders Rian, 1.2.840.1 [id number] 3412 Univers 00:00:00 00:00:00 Only Josephine 18866.1.1 ity of 3.412.2.7 [place] .3.280511 MD Lott8 [facility] 2022-07-27 2022-07-27 Orders Rian, 1.2.840.1 [id number] Univers 00:00:00 00:00:00 Only Josephine 92930.1.1 ity of 3.412.2.7 [place] .3.729513 MD Lott8 [facility] 2022-07-27 2022-07-27 Orders Rian, 1.2.840.1 [id number] 4528 Univers 00:00:00 00:00:00 Only Josephine 64592.1.1 ity of 3.412.2.7 [place] .3.380879 MD Lott8 [facility] 2022-07-07 2022-07-07 Outpatient MORE BARAKAT [id number] More 00:00:00 00:00:00 LEODAN pollard 2022-07-04 2022-07-04 Telemedici Vailati 1.2.840.1 [id number] Univers 11:00:00 11:00:00 ne Xander 38739.1.1 ity of Dai 3.412.2.7 [place] .3.555000 MD Lott8 [facility] 2022-07-04 2022-07-04 Telemedici EL Vailati 1.2.840.1 [id number] Univers 11:00:00 11:00:00 ne Xander 69939.1.1 ity of Dai 3.412.2.7 [place] .3.687146 MD Lott8 [facility] 2022-07-04 2022-07-04 Orders Tanesha, 1.2.840.1 [id number] Univers 00:00:00 00:00:00 Only Sofy E 46517.1.1 ity of 3.412.2.7 [place] .3.393627 MD Lott8 [facility] 2022-07-04 2022-07-04 Orders Tanesha, 1.2.840.1 [id number] Univers 00:00:00 00:00:00 Only Sofy E 07298.1.1 ity of 3.412.2.7 [place] .3.190745 MD Lott8 [facility] 2022-06-30 2022-06-30 Telemedici Sepesi, 1.2.840.1 [id number] [id number] Univers 10:00:00 11:25:51 ne Warren 86906.1.1 ity of 3.412.2.7 [place] .3.689896 MD Lott8 [facility] 2022-06-30 2022-06-30 Telemedici EL Sepesi, 1.2.840.1 [id number] Univers 10:00:00 11:25:51 ne Warren 48493.1.1 ity of 3.412.2.7 [place] .3.619659 MD Lott8 [facility] 2022-06-29 2022-06-29 Ancillary Tanesha, 1.2.840.1 [id number] 1101 [id number] Univers 20:00:00 20:05:00 Procedure Sofy E 04976.1.1 ity of 3.412.2.7 [place] .3.064646 MD Lott8 [facility] 2022-06-29 2022-06-29 Ancillary EL Tanesha, 1.2.840.1 [id number] 1101 [id number] Univers 20:00:00 20:05:00 Procedure Sofy E 92176.1.1 ity of 3.412.2.7 [place] .3.706643 MD Lott8 [facility] 2022-06-29 2022-06-29 Orders Tanesha, 1.2.840.1 [id number] Univers 00:00:00 00:00:00 Only Sofy E 82102.1.1 ity of 3.412.2.7 [place] .3.837413 MD Lott8 [facility] 2022-06-29 2022-06-29 Orders Tanesha, 1.2.840.1 [id number] Univers 00:00:00 00:00:00 Only Sofy E 45023.1.1 ity of 3.412.2.7 [place] .3.605472 MD Lott8 [facility] 2022-06-28 2022-06-28 Ancillary Vailati 1.2.840.1 [id number] 1101 [id number] Univers 20:00:00 20:05:00 Procedure Negrao, 17762.1.1 it y of Dai 3.412.2.7 [place] .3.041644 MD Lott8 [facility] 2022-06-28 2022-06-28 Ancillary EL Moncho 1.2.840.1 [id number] 1101 [id number] Univers 20:00:00 20:05:00 Procedure Negrao, 78273.1.1 it y of Dai 3.412.2.7 [place] .3.052269 MD Lott8 [facility] 2022-06-26 2022-06-26 Ancillary Rian, 1.2.840.1 [id number] 1101 [id number] Univers 09:15:00 09:30:00 Procedure Josephine 70437.1.1 i ty of 3.412.2.7 [place] .3.775555 MD Lott8 [facility] 2022-06-26 2022-06-26 Ancillary KINDRA Jacobo, 1.2.840.1 [id number] 1101 [id number] Univers 09:15:00 09:30:00 Procedure Josephine 37484.1.1 i ty of 3.412.2.7 [place] .3.533846 MD Lott8 [facility] 2022-06-26 2022-06-26 Travel 1.2.840.1 1.2.105.150 7007 [id number] Univers 00:00:00 00:00:00 90982.1.1 350.1.13.41 ity of 3.412.2.7 2.2.7.3.698 [place] .3.915765 084.8 MD Lott8 [facility] 2022-06-26 2022-06-26 Travel 1.2.840.1 1.2.830.244 7143 [id number] Univers 00:00:00 00:00:00 42765.1.1 350.1.13.41 ity of 3.412.2.7 2.2.7.3.698 [place] .3.630151 084.8 MD [facility] 2022-06-23 2022-06-23 Outpatient ADRIANO DUMONT MORE FLOWERS [id number] More 14:00:00 14:00:00 Seybol d 2022-06-22 2022-06-22 Outpatient MORE BARAKAT [id number] More 00:00:00 00:00:00 LEODAN Seybol d 2022-06-21 2022-06-21 Outpatient HUNDL, MORE FLOWERS [id number] More 00:00:00 00:00:00 LEODAN Seybol d 2022-06-20 2022-06-20 Outpatient MORE BARAKAT [id number] More 00:00:00 00:00:00 LEODAN Seybol d 2022-06-16 2022-06-16 Outpatient LAB90 MORE FLOWERS [id number] More 10:15:00 10:15:00 Seybol d 2022-06-16 2022-06-16 Outpatient MORE BARAKAT [id number] More 09:30:00 09:30:00 LEODAN Seybol d 2022-06-09 2022-06-09 Orders Arbyrd, 1.2.840.1 [id number] Univers 00:00:00 00:00:00 Only Paula 50282.1.1 ity of 3.412.2.7 [place] .3.699011 MD [facility] 2022-06-09 2022-06-09 Orders Winston, 1.2.840.1 [id number] Univers 00:00:00 00:00:00 Only Paula 12344.1.1 ity of 3.412.2.7 [place] .3.809655 MD Lott8 [facility] 2022-06-08 2022-06-08 Outpatient MORE CARTER [id number] More 00:00:00 00:00:00 HECTOR pollard 2022-05-31 2022-05-31 Telephone Rian, 1.2.840.1 [id number] Univers 00:00:00 00:00:00 Josephine 93086.1.1 ity of 3.412.2.7 [place] .3.688267 MD Lott8 [facility] 2022-05-31 2022-05-31 Telephone Rian, 1.2.840.1 [id number] 1100 [id number] Univers 00:00:00 00:00:00 Josephine 58911.1.1 ity of 3.412.2.7 [place] .3.645533 MD Lott8 [facility] 2022-05-25 2022-05-29 [facility], 1.2.840.1 [id number] 88526 [id number] Univers 05:20:00 12:30:00 Encounter Warren 12264.1.1 it y of 3.412.2.7 [place] .3.179614 MD Lott8 [facility] 2022-05-25 2022-05-29 [facility], 1.2.840.1 [id number] Univers 05:20:00 12:30:00 Encounter Warren 30112.1.1 it y of 3.412.2.7 [place] .3.227909 MD Lott8 [facility] 2022-05-29 2022-05-29 Inpatient [facility] [id number] 05:49:54 06:21:47 WARREN wiseman 2022-05-25 2022-05-25 [facility], 1.2.840.1 [id number] 1101 Univers 07:00:00 11:45:00 Warren 67864.1.1 ity of 3.412.2.7 [place] .3.853722 MD [facility] 2022-05-25 2022-05-25 Surgery Sepesi, 1.2.840.1 [id number] Univers 07:00:00 11:45:00 Warren 91102.1.1 ity of 3.412.2.7 [place] .3.617449 MD [facility] 2022-05-25 2022-05-25 Anesthesia Evelyn Mclean 1.2.840.1 1010 42693 [id number] Univers 07:12:00 10:25:00 Event Phyllis Bobby 06765.1.1 ity of 3.412.2.7 [place] .3.595863 MD [facility] 2022-05-25 2022-05-25 Anesthesia Evelyn Mclean 1.2.840.1 1010 97402 [id number] Univers 07:12:00 10:25:00 Event Phyllis Bobby 30285.1.1 ity of 3.412.2.7 [place] .3.195388 MD [facility] 2022-05-25 2022-05-25 Travel 1.2.840.1 1.2.296.041 4493 [id number] Univers 00:00:00 00:00:00 73586.1.1 350.1.13.41 ity of 3.412.2.7 2.2.7.3.698 [place] .3.819433 084.8 MD [facility] 2022-05-25 2022-05-25 Travel 1.2.840.1 1.2.664.318 8100 [id number] Univers 00:00:00 00:00:00 56872.1.1 350.1.13.41 ity of 3.412.2.7 2.2.7.3.698 [place] .3.706693 084.8 MD [facility] 2022-05-24 2022-05-24 Nutrition Josephine Jacobo 1.2.840.1 [id number] 23 [id number] Univers 09:00:00 09:28:38 Bhavin Canyd 39494.1.1 ity of 3.412.2.7 [place] .3.333434 MD [facility] 2022-05-24 2022-05-24 Lianna ARGUELLES Josephine Jacobo 1.2.840.1 [id number] 23 [id number] Univers 09:00:00 09:28:38 Bhavin Candy 16631.1.1 ity of 3.412.2.7 [place] .3.731227 MD [facility] 2022-05-24 2022-05-24 [facility] 1.2.840.1 [id number] 1 [id number] Univers 01:01:16 01:01:16 Event Galo 91329.1.1 ity of 3.412.2.7 [place] .3.137809 MD [facility] 2022-05-24 2022-05-24 [facility] [address] Kavita, 1.2.840.1 [id number] 1 [id number] Univers 01:01:16 01:01:16 Event Galo 97523.1.1 ity of 3.412.2.7 [place] .3.338871 MD [facility] 2022-05-24 2022-05-24 Travel 1.2.840.1 1.2.114.843 5840 [id number] Univers 00:00:00 00:00:00 04063.1.1 350.1.13.41 ity of 3.412.2.7 2.2.7.3.698 [place] .3.284883 084.8 MD [facility] 2022-05-24 2022-05-24 Travel 1.2.840.1 1.2.424.378 9462 [id number] Univers 00:00:00 00:00:00 34187.1.1 350.1.13.41 ity of 3.412.2.7 2.2.7.3.698 [place] .3.581530 084Kaylie8 MD [facility] 2022-05-23 2022-05-23 HAZEL Jacobo, 1.2.840.1 [id number] Univers 13:30:00 14:00:00 Appointmonae Josephine 53717.1.1 ity of ts 3.412.2.7 [place] .3.858125 MD [facility] 2022-05-23 2022-05-23 HAZEL Jacobo, 1.2.840.1 [id number] 5243 Univers 13:30:00 14:00:00 Appointmen Josephine 61290.1.1 ity of ts 3.412.2.7 [place] .3.799164 MD [facility] 2022-05-23 2022-05-23 Outpatient KINDRA JACOBO MDA MDA [id number] 09:46:53 09:49:22 JOSEPHINE [facility] 2022-05-23 2022-05-23 Clinical Josephine Jacoob 1.2.840.1 [id number] 2 [id number] Univers 09:30:00 09:45:59 Support Ana Laura Quinn 14326.1.1 ity of 3.412.2.7 [place] .3.005998 MD [facility] 2022-05-23 2022-05-23 Clinical Melissa Cumminsberly 1.2.840.1 [id number] 2 [id number] Univers 09:30:00 09:45:59 Support Ana Laura Quinn 81838.1.1 ity of 3.412.2.7 [place] .3.935491 MD [facility] 2022-05-23 2022-05-23 Outpatient MORE BARAKAT [id number] More 00:00:00 00:00:00 LEODAN pollard 2022-05-23 2022-05-23 Travel 1.2.840.1 1.2.203.116 [id number] [facility] 00:00:00 00:00:00 85667.1.1 350.1.13.41 ity of 3.412.2.7 [place].3.698 [place] .3.963617 084.8 MD .8 [facility] 2022-05-23 2022-05-23 Travel 1.2.840.1 1.2.897.101 [id number] [facility] 00:00:00 00:00:00 87610.1.1 350.1.13.41 ity of 3.412.2.[place].3.698 [place] .3.036993 084.8 MD [facility] 2022-05-09 2022-05-09 [facility], 1.2.840.1 [id number] Univers 08:49:54 23:59:00 Encounter Sofy Brizuela 26310.1.1 ity of 3.412.2.7 [place] .3.185144 MD [facility] 2022-05-09 2022-05-09 [facility] Tanesha, 1.2.840.1 [id number] Univers 08:49:54 23:59:00 Encounter Sofy Brizuela 64949.1.1 ity of 3.412.2.7 [place] .3.065176 MD [facility] 2022-05-09 2022-05-09 Follow-Up Moncho 1.2.840.1 [id number] [id number] Univers 10:40:00 12:08:56 Negjan, 33102.1.1 ity of Dai 3.412.2.7 [place] .3.977666 MD [facility] 2022-05-09 2022-05-09 Follow-Up EL Dasialise 1.2.840.1 [id number] 1099 [id number] Univers 10:40:00 12:08:56 Negrao, 88611.1.1 ity of Dai 3.412.2.7 [place] .3.232878 MD [facility] 2022-05-09 2022-05-09 Follow-Up Satya, 1.2.840.1 [id number] [id number] Univers 10:20:00 11:15:52 Warren 78321.1.1 ity of 3.412.2.7 [place] .3.218581 MD [facility] 2022-05-09 2022-05-09 Follow-Up KINDRA Hernadez, 1.2.840.1 [id number] [id number] Univers 10:20:00 11:15:52 Warren 28452.1.1 ity of 3.412.2.7 [place] .3.001557 MD [facility] 2022-05-09 2022-05-09 Prep for Rian, 1.2.840.1 [id number] [id number] Univers 00:00:00 00:00:00 Surgery Josephine 37092.1.1 ity of 3.412.2.7 [place] .3.267706 MD [facility] 2022-05-09 2022-05-09 Travel 1.2.840.1 1.2.237.426 [id number] Univers 00:00:00 00:00:00 14111.1.1 350.1.13.41 ity of 3.412.2.7 2.[place]7.3.698 [place] .3.678450 084.8 MD [facility] 2022-05-09 2022-05-09 Prep for Rian, 1.2.840.1 [id number] Univers 00:00:00 00:00:00 Surgery Josephine 54983.1.1 ity of 3.412.2.7 [place] .3.989362 MD [facility] 2022-05-09 2022-05-09 Travel 1.2.840.1 1.2.799.195 0866 [id number] [facility] 00:00:00 00:00:00 72222.1.1 350.1.13.41 ity of 3.412.2.7 2.[place]7.3.698 [place] .3.863157 084.8 MD [facility] 2022-05-08 2022-05-08 Outpatient MORE BARAKAT [id number] More 00:00:00 00:00:00 LEODAN pollard 2022-05-03 2022-05-03 Outpatient BLAKERohith MORE FLOWERS [id number] More 13:00:00 13:00:00 LEODAN Seybol d 2022-04-24 2022-04-24 Outpatient MORE BARAKAT MORE [id number] More 00:00:00 00:00:00 LEODAN Seybol d 2022-04-17 2022-04-17 Infusion Vailati 1.2.840.1 [id number] Univers 10:15:00 13:26:57 Negjan, 08615.1.1 ity of Dai 3.412.2.7 [place] .3.459237 .8 [facility] 2022-04-17 2022-04-17 Infusion EL Vailati 1.2.840.1 [id number] Univers 10:15:00 13:26:57 Negjan, 69538.1.1 ity of Dai 3.412.2.7 [place] .3.477905 .8 [facility] 2022-04-17 2022-04-17 Telemedici Vailati 1.2.840.1 [id number] Univers 09:00:00 09:06:32 ne Xander, 68318.1.1 ity of Dai 3.412.2.7 [place] .3.378271 .8 [facility] 2022-04-17 2022-04-17 Telemedici EL Vailati 1.2.840.1 [id number] Univers 09:00:00 09:06:32 ne Xander, 65807.1.1 ity of Dai 3.412.2.7 [place] .3.830802 .8 [facility] 2022-04-17 2022-04-17 Outpatient KINDRA ALMENDAREZ MDA MDA [id number] 08:08:21 08:09:28 SOFY wayo bowen 2022-04-17 2022-04-17 Piedad Olmedo, 1.2.840.1 [id number] Univers 00:00:00 00:00:00 Only Elvia Vaughn 38535.1.1 ity of 3.412.2.7 [place] .3.809126 MD [facility] 2022-04-17 2022-04-17 Travel 1.2.840.1 1.2.493.118 [id number] [id number] Univers 00:00:00 00:00:00 39653.1.1 350.1.13.41 ity of 3.412.2.7 [place]7.3.698 [place] .3.144560 084.8 MD [facility] 2022-04-17 2022-04-17 Orders Binks, 1.2.840.1 [id number] Univers 00:00:00 00:00:00 Only Elvia Vaughn 76765.1.1 ity of 3.412.2.7 [place] .3.143560 MD [facility] 2022-04-17 2022-04-17 Travel 1.2.840.1 1.2.913.042 7784 [id number] Univers 00:00:00 00:00:00 30581.1.1 350.1.13.41 ity of 3.412.2.7 2.[place]7.3.698 [place] .3.372799 084.8 MD [facility] 2022-04-11 2022-04-11 Orders Tanesha, 1.2.840.1 [id number] Univers 00:00:00 00:00:00 Only Sofy Brizuela 25421.1.1 ity of 3.412.2.7 [place] .3.507017 MD [facility] 2022-04-11 2022-04-11 Orders Tanesha, 1.2.840.1 [id number] Univers 00:00:00 00:00:00 Only Sofy Brizuela 07244.1.1 ity of 3.412.2.7 [place] .3.876395 MD [facility] 2022-04-10 2022-04-10 [facility] 1.2.840.1 [id number] Univers 10:30:00 23:59:00 Encounter Xander 11559.1.1 it y of Dai 3.412.2.7 [place] .3.202337 MD [facility] 2022-04-10 2022-04-10 [facility] 1.2.840.1 [id number] Univers 10:30:00 23:59:00 Encounter Xander 57931.1.1 it y of Dai 3.412.2.7 [place] .3.883292 MD [facility] 2022-04-10 2022-04-10 Office Tanesha, 1.2.840.1 [id number] Univers 11:30:00 12:17:57 Visit Sofy Brizuela 75906.1.1 ity of 3.412.2.7 [place] .3.248842 MD [facility] 2022-04-10 2022-04-10 Office EL Tanesha, 1.2.840.1 [id number] Univers 11:30:00 12:17:57 Visit Sofy Brizuela 66234.1.1 ity of 3.412.2.7 [place] .3.424359 MD [facility] 2022-04-10 2022-04-10 Evin Anglin, 1.2.840.1 [id number] [id number] Univers 00:00:00 00:00:00 Cyndy Fulton 95576.1.1 i ty of 3.412.2.7 [place] .3.720012 MD [facility] 2022-04-10 2022-04-10 Travel 1.2.840.1 1.2.586.866 6458 [id number] Univers 00:00:00 00:00:00 19779.1.1 350.1.13.41 ity of 3.412.2.7 [place].3.698 [place] .3.8325[place] 084.8 MD [facility] 2022-04-10 2022-04-10 Refdavid Derrek, 1.2.840.1 [id number] Univers 00:00:00 00:00:00 Cyndy Fulton 56091.1.1 i ty of 3.412.2.7 [place] .3.413039 MD [facility] 2022-04-10 2022-04-10 Travel 1.2.840.1 1.2.532.906 4337 [id number] Univers 00:00:00 00:00:00 34282.1.1 350.1.13.41 ity of 3.412.2.7 [place]7.3.698 [place] .3.019675 084.8 MD [facility] 2022-04-07 2022-04-07 Ancillary KINDRA Elmore, 1.2.840.1 [id number] 10 [id number] Univers 09:05:00 10:30:00 Lesley Brizuela 92497.1.1 it y of 3.412.2.7 [place] .3.836635 MD [facility] 2022-04-07 2022-04-07 Travel 1.2.840.1 1.2.351.378 5092 [id number] Univers 00:00:00 00:00:00 98845.1.1 350.1.13.41 ity of 3.412.2.7 [place].7.3.698 [place]3.111223 084.Kimberlee [facility] 2022-03-27 2022-03-27 Kris Parikh 1.2.840. 1 [id number] Univers 09:00:00 09:30:00 Cherry Benitez 28226.1.1 ity of 3.412.2.7 [place] .3.409416 MD [facility] 2022-03-27 2022-03-27 Piedad Lai 1.2.840.1 [id number] 4060 Univers 00:00:00 00:00:00 Only Cherry 85870.1.1 ity of 3.412.2.7 [place] .3.415206 MD Lott8 [facility] 2022-03-20 2022-03-20 Hospital Sharifjustina, 1.2.840.1 [id number] 10 [id number] Univers 09:10:18 23:59:00 Encounter Tammy 42424.1.1 it y of 3.412.2.7 [place] .3.982176 MD Lott8 [facility] 2022-03-20 2022-03-20 Infusion [facility] Dai Philip 1.2.840.1 [id number] Univers 12:00:00 16:47:49 Matilda Condon 27267.1.1 ity of 3.412.2.7 [place] .3.758798 MD Lott8 [facility] 2022-03-20 2022-03-20 Consult KINDRA Mota, 1.2.840.1 [id number] Univers 11:00:00 11:15:27 Kaylie 16147.1.1 ity of 3.412.2.7 [place] .3.928408 MD Lott8 [facility] 2022-03-20 2022-03-20 [facility] 1.2.840.1 [id number] Univers 06:50:00 09:09:00 Encounter Xander 41102.1.1 it y of Dai 3.412.2.7 [place] .3.905966 MD Lott8 [facility] 2022-03-20 2022-03-20 Office [facility] 1.2.840.1 [id number] Univers 08:20:00 08:49:46 Visit Xander 42025.1.1 ity of Dai 3.412.2.7 [place] .3.213279 MD Lott8 [facility] 2022-03-20 2022-03-20 Piedad Young, 1.2.840.1 [id number] 8212 Univers 00:00:00 00:00:00 Only Meredith 72426.1.1 ity of 3.412.2.7 [place] .3.522091 MD [facility] 2022-03-20 2022-03-20 Travel 1.2.840.1 1.2.598.191 5106 [id number] Univers 00:00:00 00:00:00 02253.1.1 350.1.13.41 ity of 3.412.2.7 [place].7.3.698 [place] .3.331247 084.8 MD [facility] 2022-03-09 2022-03-09 Outpatient MORE BARAKAT [id number] More 00:00:00 00:00:00 LEODAN pollard 2022-03-09 2022-03-09 Documentat John, 1.2.840.1 [id number] 10 [id number] Univers 00:00:00 00:00:00 ion Franky 18188.1.1 ity of 3.412.2.7 [place] .3.393268 MD [facility] 2022-03-09 2022-03-09 Telephone Tanesha, 1.2.840.1 [id number] 1097 [id number] Univers 00:00:00 00:00:00 Sofy Brizuela 50605.1.1 ity of 3.412.2.7 [place] .3.428680 MD [facility] 2022-02-28 2022-02-28 Orders Enzo, 1.2.840.1 [id number] Univers 00:00:00 00:00:00 Only Tammy 11591.1.1 ity of 3.412.2.7 [place] .3.126541 MD [facility] 2022-02-27 2022-02-27 [facility] 1.2.840.1 [id number] Univers 06:45:00 23:59:00 Encounter Xander 92791.1.1 it y of Dai 3.412.2.7 [place] .3.673232 MD [facility] 2022-02-27 2022-02-27 Infusion EL Dasiasonialove Jalenkevin Dai 1.2.840.1 [id number] Univers 11:00:00 17:49:00 Finn Gifford 30833.1.1 ity of 3.412.2.7 [place] .3.586577 MD Lott8 [facility] 2022-02-27 2022-02-27 Office KINDRA Franco 1.2.840.1 [id number] 8089 Univers 09:40:00 10:33:36 Visit Jalenjan 79674.1.1 ity of Dai 3.412.2.7 [place] .3.113785 MD Lott8 [facility] 2022-02-27 2022-02-27 Travel 1.2.840.1 1.2.299.650 0627 [id number] Univers 00:00:00 00:00:00 34024.1.1 350.1.13.41 ity of 3.412.2.7 [place]7.3.698 [place] .3.050603 084.8 MD Lott8 [facility] 2022-02-23 2022-02-23 Telephone Tanesha, 1.2.840.1 [id number] 1096 [id number] Univers 00:00:00 00:00:00 Sofy Brizuela 72061.1.1 ity of 3.412.2.7 [place] .3.850987 MD Lott8 [facility] 2022-02-23 2022-02-23 Orders Tanesha, 1.2.840.1 [id number] 7082 Univers 00:00:00 00:00:00 Only Sofy Brizuela 80301.1.1 ity of 3.412.2.7 [place] .3.245911 MD [facility] 2022-02-23 2022-02-23 Orders Hollingsworth, 1.2.840.1 [id number] 6036 Univers 00:00:00 00:00:00 Only Tra 02046.1.1 ity of 3.412.2.7 [place] .3.898677 .8 [facility] 2022-02-23 2022-02-23 Orders Tanesha, 1.2.840.1 [id number] Univers 00:00:00 00:00:00 Only Sofy Brizuela 26622.1.1 ity of 3.412.2.7 [place] .3.845097 MD Lott8 [facility] 2022-02-22 2022-02-22 Outpatient MORE HOLLOWAY [id number] More 10:00:00 10:00:00 BRINA pollard 2022-02-17 2022-02-17 Orders Juan Pablo, 1.2.840.1 [id number] 5761 Univers 00:00:00 00:00:00 Only Ambreen Fulton 90632.1.1 ity of 3.412.2.7 [place] .3.659389 MD Lott8 [facility] 2022-02-17 2022-02-17 Orders John, 1.2.840.1 [id number] Univers 00:00:00 00:00:00 Only Franky 87268.1.1 ity of 3.412.2.7 [place] .3.315680 MD Lott8 [facility] 2022-02-16 2022-02-16 Outpatient [facility] MDA [id number] MD 09:54:10 09:54:10 Darryl PHILIP 2022-02-15 2022-02-15 Orders Pako, 1.2.840.1 [id number] Univers 00:00:00 00:00:00 Only Cyndy Flores 26668.1.1 i ty of 3.412.2.7 [place] .3.903598 MD Lott8 [facility] 2022-02-13 2022-02-13 Outpatient [facility] MDA [id number] MD 10:35:04 10:35:04 Darryl PHILIP 2022-02-13 2022-02-13 Telephone Balaji 1.2.840.1 [id number] 1096 [id number] Univers 00:00:00 00:00:00 Indira Wiseman 33312.1.1 it y of 3.412.2.7 [place] .3.191523 MD [facility] 2022-02-11 2022-02-11 Clinical Muriel Sparks 1.2.840.1 [id number] Univers 15:30:00 15:45:00 Support Mariama Baez 68025.1.1 ity of 3.412.2.7 [place] .3.832202 MD [facility] 2022-02-11 2022-02-11 Travel 1.2.840.1 1.2.020.518 0887 [id number] Univers 00:00:00 00:00:00 23088.1.1 350.1.13.41 ity of 3.412.2.7 [place]7.3.698 [place] .3.364[place] 08Rick [facility] 2022-02-08 2022-02-08 Orders Tanesha, 1.2.840.1 [id number] 8189 Univers 00:00:00 00:00:00 Only Sofy Chata 73070.1.1 ity of 3.412.2.7 [place] .3.487841 MD [facility] 2022-02-07 2022-02-07 Ancillary KINDRA Franco 1.2.840.1 [id number] 1096 [id number] Univers 13:00:00 15:30:00 Procedure Xander, 75146.1.1 it y of Dai 3.412.2.7 [place] .3.552261 MD [facility] 2022-02-07 2022-02-07 Travel 1.2.840.1 1.2.033.606 9715 075225 Univers 00:00:00 00:00:00 32038.1.1 350.1.13.41 ity of 3.412.2.7 2.[place].7.3.698 [place] .3.0988[place] 08Rick [facility] 2022-02-07 2022-02-07 Orders Leroy, 1.2.840.1 [id number] 5273 Univers 00:00:00 00:00:00 Only Muriel 47414.1.1 ity of 3.412.2.7 [place] .3.222962 MD Lott8 [facility] 2022-02-04 2022-02-04 Ancillary [facility] 1.2.840.1 [id number] 1096 [id number] Univers 09:15:00 11:00:00 Procedure Negrao, 40940.1.1 it y of Dai 3.412.2.7 [place] .3.606775 MD Lott8 [facility] 2022-02-04 2022-02-04 Travel 1.2.840.1 1.2.246.752 3637 834906 Univers 00:00:00 00:00:00 39024.1.1 350.1.13.41 ity of 3.412.2.7 2.2.7.3.698 [place] .3.466003 084.8 MD Lott8 [facility] 2022-02-03 2022-02-03 Hospital [facility] 1.2.840.1 [id number] [id number] Univers 13:00:00 23:59:00 Encounter Negrao, 55009.1.1 it y of Dai 3.412.2.7 [place] .3.882476 MD Lott8 [facility] 2022-02-03 2022-02-03 [facility] 1.2.840.1 [id number] 07559 Univers 12:29:29 12:59:00 Encounter Negrao, 41537.1.1 it y of Dai 3.412.2.7 [place] .3.179099 MD Lott8 [facility] 2022-02-03 2022-02-03 [facility] 1.2.840.1 [id number] Univers 12:00:16 12:28:00 Encounter Negrao, 36230.1.1 it y of Dai 3.412.2.7 [place] .3.938042 MD [facility] 2022-02-03 2022-02-03 Orders John, 1.2.840.1 [id number] Univers 00:00:00 00:00:00 Only Franky 40235.1.1 ity of 3.412.2.7 [place] .3.858114 MD Lott8 [facility] 2022-02-03 2022-02-03 Orders Leroy, 1.2.840.1 [id number] Univers 00:00:00 00:00:00 Only Muriel 71573.1.1 ity of 3.412.2.7 [place] .3.906636 MD Lott8 [facility] 2022-02-03 2022-02-03 Orders John, 1.2.840.1 [id number] [id number] Univers 00:00:00 00:00:00 Only Franky 21894.1.1 ity of 3.412.2.7 [place] .3.598755 MD [facility] 2022-02-03 2022-02-03 Travel 1.2.840.1 1.2.741.457 8636 [id number] Univers 00:00:00 00:00:00 17415.1.1 350.1.13.41 ity of 3.412.2.7 2.2.7.3.698 [place] .3.039550 084.8 MD Lott8 [facility] 2022-02-02 2022-02-02 [facility] [id number] MD 14:28:00 14:28:00 Darryl PHILIP 2022-02-01 2022-02-01 Orders John, 1.2.840.1 [id number] Univers 00:00:00 00:00:00 Only Franky 99771.1.1 ity of 3.412.2.7 [place] .3.963196 MD [facility] 2022-02-01 2022-02-01 Orders John, 1.2.840.1 [id number] [id number] Univers 00:00:00 00:00:00 Only Franky 75315.1.1 ity of 3.412.2.7 [place] .3.060535 MD [facility] 2022-01-31 2022-01-31 Orders Lugo, 1.2.840.1 [id number] 8292 Univers 00:00:00 00:00:00 Only Christopher 58455.1.1 ity of Van 3.412.2.7 [place] .3.084844 MD Lott8 [facility] 2022-01-31 2022-01-31 Orders John, 1.2.840.1 [id number] Univers 00:00:00 00:00:00 Only Franky 65710.1.1 ity of 3.412.2.7 [place] .3.908650 MD [facility] 2022-01-31 2022-01-31 Orders Tanesha, 1.2.840.1 [id number] Univers 00:00:00 00:00:00 Only Sofy E 30388.1.1 ity of 3.412.2.7 [place] .3.509338 MD [facility] 2022-01-26 2022-01-26 Orders Serrao, 1.2.840.1 [id number] 2171 Univers 00:00:00 00:00:00 Only Gabryella 09246.1.1 it y of 3.412.2.7 [place] .3.368674 MD Lott8 [facility] 2022-01-24 2022-01-24 Office EL Thereseti 1.2.840.1 [id number] 9440 Univers 10:20:00 12:33:32 Visit Xander, 90597.1.1 ity of Dai 3.412.2.7 [place] .3.266581 MD Lott8 [facility] 2022-01-24 2022-01-24 Orders Caranto, 1.2.840.1 [id number] Univers 00:00:00 00:00:00 Only Sana M 68049.1.1 ity of 3.412.2.7 [place] .3.216351 MD Lott8 [facility] 2022-01-24 2022-01-24 Travel 1.2.840.1 1.2.320.543 6400 826126 Univers 00:00:00 00:00:00 54507.1.1 350.1.13.41 ity of 3.412.2.7 2.2.7.3.698 [place] .3.726857 084.8 MD Lott8 [facility] 2022-01-22 2022-01-22 Orders Vailati 1.2.840.1 [id number] 5713 Univers 00:00:00 00:00:00 Only Xander 65696.1.1 ity of Dai 3.412.2.7 [place] .3.904480 MD [facility] 2022-01-19 2022-01-19 Orders Tanesha, 1.2.840.1 [id number] 3780 Univers 00:00:00 00:00:00 Only Sofy Brizuela 84471.1.1 ity of 3.412.2.7 [place] .3.574858 MD [facility] 2022-01-18 2022-01-18 Outpatient [facility] MDA MDA [id number] 19:05:08 19:05:08 Darryl PHILIP 2022-01-13 2022-01-13 Telephone Nubia, 1.2.840.1 [id number] [id number] Univers 00:00:00 00:00:00 Dany Fulton 91291.1.1 ity of 3.412.2.7 [place] .3.288837 MD [facility] 2022-01-11 2022-01-11 Outpatient [facility] MDA MDA [id number] 18:08:28 18:08:28 Darryl PHILIP 2022-01-09 2022-01-09 Telemedici Dasialise 1.2.840.1 [id number] Univers 11:20:00 11:40:00 ne Xander, 64949.1.1 ity of Dai 3.412.2.7 [place] .3.283889 MD [facility] 2022-01-09 2022-01-09 Orders Brandyn, 1.2.840.1 [id number] Univers 00:00:00 00:00:00 Only Susie 73539.1.1 ity of 3.412.2.7 [place] .3.070841 MD Lott8 [facility] 2022-01-05 2022-01-05 Outpatient KINDRA TONY MDA [facility] [id number] MD 10:31:22 10:31:22 ISMAEL wiseman 2022-01-05 2022-01-05 Telephone Tanesha, 1.2.840.1 [id number] 1095 [id number] Univers 00:00:00 00:00:00 Sofy Brizuela 57365.1.1 ity of 3.412.2.7 [place] .3.682830 MD Lott8 [facility] 2022-01-04 2022-01-04 Ancillary KINDRA Almendarez, 1.2.840.1 [id number] 1095 [id number] Univers 14:20:00 15:45:00 Procedure Sofy Brizuela 23505.1.1 ity of 3.412.2.7 [place] .3.403960 MD Lott8 [facility] 2022-01-04 2022-01-04 Travel 1.2.840.1 1.2.327.735 8275 158200 Univers 00:00:00 00:00:00 79228.1.1 350.1.13.41 ity of 3.412.2.7 2.2.7.3.698 [place] .3.157293 084.8 MD Lott8 [facility] 2022-01-03 2022-01-03 Wade Villanueva 1.2.840 .1 [id number] Univers 10:20:00 23:59:00 Encounter Tanesha Sofy Brizuela 30323.1.1 ity of 3.412.2.7 [place] .3.572796 MD [facility] 2022-01-03 2022-01-03 Ancillary KINDRA Almendarez, 1.2.840.1 [id number] 1094 [id number] Univers 09:15:00 11:00:00 Procedure Sofy Brizuela 46668.1.1 ity of 3.412.2.7 [place] .3.510680 MD [facility] 2022-01-03 2022-01-03 Orders Sukh-Anderson 1.2.840.1 [id number] 10 [id number] Univers 00:00:00 00:00:00 Only Holley marroquin 10517.1.1 ity of 3.412.2.7 [place] .3.114113 MD [facility] 2022-01-03 2022-01-03 Orders Tanesha, 1.2.840.1 [id number] 7795 Univers 00:00:00 00:00:00 Only Sofy Brizuela 75599.1.1 ity of 3.412.2.7 [place] .3.875447 MD [facility] 2022-01-03 2022-01-03 Travel 1.2.840.1 1.2.836.323 3405 [id number] Univers 00:00:00 00:00:00 05230.1.1 350.1.13.41 ity of 3.412.2.7 2.2.7.3.698 [place] .3.935757 084.8 MD [facility] 2021-12-28 2021-12-28 Outpatient KINDRA ABERNATHY MDA MDA [id number] 19:32:18 19:32:18 JOSE wiseman 2021-12-27 2021-12-27 Hospital KINDRA Almendarez, 1.2.840.1 [id number] Univers 12:12:06 23:59:00 Encounter Sofy Brizuela 22318.1.1 ity of 3.412.2.7 [place] .3.916049 MD .8 [facility] 2021-12-27 2021-12-27 Consult KINDRA Franco 1.2.840.1 [id number] 6178 Univers 10:40:00 11:51:41 Xander, 56462.1.1 ity of Dai 3.412.2.7 [place] .3.737438 MD Lott8 [facility] 2021-12-27 2021-12-27 Consult KINDRA Hernadez, 1.2.840.1 [id number] [facility] 10:00:00 11:19:12 Warren 25479.1.1 ity of 3.412.2.7 [place] .3.438653 MD Lott8 [facility] 2021-12-27 2021-12-27 Orders SukhLatonyaAnderson 1.2.840.1 [id number] Univers 00:00:00 00:00:00 Only Holley marroquin 32586.1.1 ity of 3.412.2.7 [place] .3.891726 MD [facility] 2021-12-27 2021-12-27 Travel 1.2.840.1 1.2.592.313 9464 154983 Univers 00:00:00 00:00:00 85755.1.1 350.1.13.41 ity of 3.412.2.7 2.2.7.3.698 [place] .3.830408 084.8 MD Lott8 [facility] 2021-12-23 2021-12-23 Telephone Ca, 1.2.840.1 [id number] Univers 00:00:00 00:00:00 Pedro Ismela 03894.1.1 it y of 3.412.2.7 [place] .3.516984 MD [facility] 2021-12-21 2021-12-21 Outpatient KINDRA ABERNATHY MDA MDA [id number] 17:49:34 17:49:34 JOSE wiseman 2021-12-21 2021-12-21 Hospital EL Nakul, 1.2.840.1 [id number] Univers 10:29:00 14:27:00 Encounter Kaylie 00770.1.1 it y of 3.412.2.7 [place] .3.376619 MD [facility] 2021-12-21 2021-12-21 Anesthesia Magdaleno, 1.2.840.1 [id number] 066 [id number] Univers 12:21:00 13:31:00 Event Crystal 33386.1.1 ity of 3.412.2.7 [place] .3.525479 MD [facility] 2021-12-21 2021-12-21 Surgery Nakul, 1.2.840.1 [id number] 5586 Univers 12:00:00 13:30:00 Kaylie 04350.1.1 ity of 3.412.2.7 [place] .3.545329 MD [facility] 2021-12-21 2021-12-21 Orders Ca, 1.2.840.1 [id number] 75987 [id number] Univers 00:00:00 00:00:00 Only Pedro Isam 96572.1.1 it y of 3.412.2.7 [place] .3.044343 MD [facility] 2021-12-21 2021-12-21 Travel 1.2.840.1 1.2.991.622 6137 [id number] Univers 00:00:00 00:00:00 16729.1.1 350.1.13.41 ity of 3.412.2.7 2.2.7.3.698 [place] .3.211589 084.8 MD [facility] 2021-12-20 2021-12-20 Anesthesia Reed, 1.2.840.1 [id number] 064 [id number] Univers 23:59:59 23:59:59 Event Jennie M 43539.1.1 ity of 3.412.2.7 [place] .3.166106 MD [facility] 2021-12-20 2021-12-20 Consult EL Nakul, 1.2.840.1 [id number] 4831 Univers 15:00:00 15:27:35 Kaylie 55179.1.1 ity of 3.412.2.7 [place] .3.563653 .8 [facility] 2021-12-20 2021-12-20 Clinical EL Tammy Giraldo 1.2.840.1 [id number] Univers 14:15:00 14:15:00 Support Carine Yu Estefany 15668.1.1 ity of 3.412.2.7 [place] .3.026562 MD Lott8 [facility] 2021-12-20 2021-12-20 POEM KINDRA Abernathy, 1.2.840.1 [id number] 2457 Univers 09:30:00 10:00:00 Appointmonae Fay 42627.1.1 ity of ts 3.412.2.7 [place] .3.301060 MD Lott8 [facility] 2021-12-20 2021-12-20 Outpatient RADIOLOGY, MORE FLOWERS 1109 [id number] More 00:00:00 00:00:00 DEPT Seybol d 2021-12-20 2021-12-20 Travel 1.2.840.1 1.2.911.599 1669 [id number] [facility] 00:00:00 00:00:00 12999.1.1 350.1.13.41 ity of 3.412.2.7 2.2.7.3.698 [place] .3.507549 084.8 MD Lott8 [facility] 2021-12-14 2021-12-14 Outpatient KINDRA ABERNATHY MDA MDA [id number] 17:26:51 17:26:51 JOSE wiseman 2021-12-14 2021-12-14 Outpatient KINDRA ABERNATHY MDA MDA [id number] 17:26:44 17:26:44 JOSE wiseman 2021-12-12 2021-12-12 Brant Abernathy 1.2.840.1 [id number] [facility] 00:00:00 00:00:00 Jose Fay 20330.1.1 ity of 3.412.2.7 [place] .3.269923 MD [facility] 2021-12-09 2021-12-09 Ancillary KINDRA Abernathy, 1.2.840.1 [id number] 1094 [id number] Univers 11:30:00 11:45:00 Procedure Jose Fay 87887.1.1 i ty of 3.412.2.7 [place] .3.139553 MD [facility] 2021-12-09 2021-12-09 Documentat Antonino Eduardaatul [place] 1.2.840.1 [id number] Univers 00:00:00 00:00:00 ion 34576.1.1 ity of 3.412.2.7 [place] .3.820532 MD [facility] 2021-12-09 2021-12-09 Prep for Enzo, 1.2.840.1 [id number] Univers 00:00:00 00:00:00 Surgery Tammy 01183.1.1 ity of 3.412.2.7 [place] .3.358908 MD [facility] 2021-12-09 2021-12-09 Travel 1.2.840.1 1.2.039.622 7488 [id number] Univers 00:00:00 00:00:00 67737.1.1 350.1.13.41 ity of 3.412.2.7 2.2.7.3.698 [place] .3.839332 084.8 MD [facility] 2021-12-08 2021-12-08 Telephone Josemanuel, 1.2.840.1 [id number] 1094 [id number] Univers 00:00:00 00:00:00 Jose Fay 62643.1.1 ity of 3.412.2.7 [place] .3.084644 MD [facility] 2021-12-02 2021-12-02 Hospital 1.2.840.1 [id number] Univers 11:51:30 23:59:00 Encounter 42930.1.1 it y of 3.412.2.7 [place] .3.315366 MD [facility] 2021-12-02 2021-12-02 [facility] 1.2.840.1 [id number] Univers 11:40:16 11:50:00 Encounter 05268.1.1 it y of 3.412.2.7 [place] .3.947158 MD Lott8 [facility] 2021-12-02 2021-12-02 [facility] Jose Abernathy 1.2.840.1 [id number] Univers 09:36:02 11:39:00 Encounter Jason De Jesus 44886.1.1 ity of 3.412.2.7 [place] .3.233351 MD Lott8 [facility] 2021-12-02 2021-12-02 [facility] 1.2.840.1 1.2.735.736 [id number] Univers 00:00:00 00:00:00 57931.1.1 350.1.13.41 ity of 3.412.2.[place].3.698 [place] .3.624359 084.[address] [place] [address] 2021-12-01 2021-12-01 [facility] 1.2.840.1 [id number] Univers 11:56:09 23:59:00 Encounter Jose Fay 34712.1.1 i ty of 3.412.2.7 [place] .3.702165 MD [facility] 2021-12-01 2021-12-01 [facility] Jason.2.840.1 [id number] [facility] 11:55:37 11:55:37 Encounter Jose Fay 90876.1.1 i ty of 3.412.2.7 [place] .3Kaylie365859 MD [facility] 2021-12-01 2021-12-01 [facility] Jose Abernathy.2.840.1 [id number] Univers 09:28:22 11:54:00 Encounter Ella Adame 38241.1.1 ity of 3.412.2.7 [place] .3.505606 MD [facility] 2021-12-01 2021-12-01 Ella Velez 1.2.840.1 [id number] [facility] 11:00:00 11:06:04 Support Sandy Chowdhury 67151.1.1 ity of 3.412.2.7 [place] .3.880914 MD [facility] 2021-12-01 2021-12-01 Outpatient MORE WEBER [id number] More 00:00:00 00:00:00 CLAY pollard 2021-12-01 2021-12-01 Piedad Ding, 1.2.840.1 [id number] [facility] 00:00:00 00:00:00 Only Olimpia Ferris 99658.1.1 ity of 3.412.2.7 [place] .3.922042 MD Lott8 [facility] 2021-12-01 2021-12-01 Travel 1.2.840.1 1.2.202.267 [id number] [facility] 00:00:00 00:00:00 97049.1.1 350.1.13.41 ity of 3.412.2.[place]7.3.698 [place] .3.211855 084.8 MD [facility] 2021-11-30 2021-11-30 Piedad Adame 1.2.840.1 [id number] [facility] 00:00:00 00:00:00 Only Ella 38934.1.1 ity of 3.412.2.7 [place] .3.835209 MD [facility] 2021-11-29 2021-11-29 [facility] Josemanuel, 1.2.840.1 [id number] [facility] 17:42:45 23:59:00 Bobby Fay 90148.1.1 i ty of 3.412.2.7 [place] .3.494588 MD [facility] 2021-11-29 2021-11-29 Ancillary Josemanuel, 1.2.840.1 [id number] [facility] 21:50:00 21:55:00 Procedure Jose RoderickKaylie 25053.1.1 i ty of 3.412.2.7 [place] .3.766375 MD [facility] 2021-11-29 2021-11-29 Office Josemanuel, 1.2.840.1 [id number] [facility] 15:00:00 17:34:37 Visit Jose Fay 54229.1.1 ity of 3.412.2.7 [place] .3.660193 MD [facility] 2021-11-29 2021-11-29 Travel 1.2.840.1 1.2.452.849 [id number] [facility] 00:00:00 00:00:00 48295.1.1 350.1.13.41 ity of 3.412.2.[place] 2.[place]7.3.698 [place] .3.285635 084.8 MD [facility] 2021-11-28 2021-11-28 Outpatient MORE FLOWERS [id number] More 15:00:00 15:00:00 Seybol d 2021-11-28 2021-11-28 Outpatient MORE FLOWESR [id number] More 14:00:00 14:00:00 Seybol d 2021-11-25 2021-11-25 NPR 1.2.840.1 [id number] Univers 14:30:00 14:30:00 70428.1.1 ity of 3.412.2.7 [place] .3.499341 MD Lott8 [facility] 2021-11-23 2021-11-23 Ancillary EL 1.2.840.1 [id number] Univers 02:10:00 02:15:00 Procedure 53090.1.1 it y of 3.412.2.7 [place] .3.471191 MD Lott8 [facility] 2021-11-23 2021-11-23 Ancillary EL 1.2.840.1 [id number] [id number] Univers 02:05:00 02:10:00 Procedure 57397.1.1 it y of 3.412.2.7 [place] .3.812620 MD Lott8 [facility] 2021-11-22 2021-11-22 Orders Shaista, 1.2.840.1 [id number] [facility] 00:00:00 00:00:00 Only Latira 12564.1.1 ity of 3.412.2.7 [place] .3.646379 MD Lott8 [facility] 2021-11-17 2021-11-17 Travel 1.2.840.1 1.2.297.578 [id number] [facility] 00:00:00 00:00:00 65172.1.1 350.1.13.41 ity of 3.412.2.[place]7.3.698 [place] .3.551679 084.8 MD Lott8 [facility] 2021-11-17 2021-11-17 Telephone Valentin, 1.2.840.1 [id number] [facility] 00:00:00 00:00:00 Celaysheia 68190.1.1 i ty of S 3.412.2.7 [place] .3.324527 MD Lott8 [facility] 2021-11-16 2021-11-16 Outpatient MORE FLOWERS [id number] More 10:45:00 10:45:00 Seybol d 2021-11-16 2021-11-16 Outpatient LAB39 MORE FLOWERS [id number] More 10:15:00 10:15:00 Seybol d 2021-11-16 2021-11-16 Office WILDER Holloway 1.2.840.114 [id number] More 09:30:00 10:00:00 Visit [facility] 350.1.13.13 Se ybold 1.2.7.2.686 [id number] 0 2021-11-16 2021-11-16 Outpatient MORE WEBER [id number] More 00:00:00 00:00:00 CLAY Seybol d 2021-10-28 2021-10-28 Outpatient BAUMANN, MORE FLOWERS [id number] More 10:00:00 10:00:00 FATUMA Seybol d 2021-10-28 2021-10-28 Outpatient MORE FLOWERS [id number] More 09:00:00 09:00:00 Seybol d 2021-10-28 2021-10-28 Outpatient MORE BARAKAT [id number] More 00:00:00 00:00:00 LEODAN Seybol d 2021-10-17 2021-10-17 Outpatient MORE FLOWERS [id number] More 10:00:00 10:00:00 Seybol d 2021 2021 Office KEENA WEBER [id number] More 10:30:00 10:30:00 Visit CLAY 350.1.13.13 Se ybold [id number] 2021-09-27 2021-09-27 Outpatient MORE FLOWERS [id number] More 15:00:00 15:00:00 Seybol d 2021-09-19 2021-09-19 Outpatient MORE BARAKAT [id number] More 00:00:00 00:00:00 LEODAN Seybol d 2021-09-14 2021-09-14 Outpatient LAB90 MORE FLOWERS [id number] More 11:50:00 11:50:00 Seybol d 2021-09-14 2021-09-14 Office Odin BARAKAT [id number] More 10:30:00 10:30:00 Visit LEODAN Vega 350.1.13.13 Se ybold [id number] 2021-07-13 2021-07-13 Outpatient MORE BARAKAT [id number] More 11:00:00 11:00:00 LEODAN Seybol d 2021-07-12 2021-07-12 Outpatient MORE BOWER [id number] More 00:00:00 00:00:00 SAMMIE Seybol d Results Test Description Test Time Test Comments Results Result Comments Source Research Protocol [id number] 2022-09-12 20:28:20 Test Item Value Reference Range Interpretation Comme nts Research Prot (test code = 7189) [id number] RHIANNA (test code = RHIANNA) Link with existing labwork already scheduled[facility] [id number] 2022-09-12 20:28:20 Test Item Value Reference Range Interpretation Comments Research Prot (test 743109 code = 7189) RHIANNA (test code = RHIANNA) Link with existing labwork already scheduled. [facility] [id number] 2022-09-12 20:28:20 Test Item Value Reference Range Interpretation Comments Research Prot (test 654833 code = 7189) RHIANNA (test code = RHIANNA) Link with existing labwork already scheduled. [facility] Lwmtoxw7797-63-73 15:05:33 Test Item Value Reference Range Interpretation Comments Total Protein (test code = 2885-2) 6.8 g/dL 6.4-8.3 [facility]2023-03-28 15:05:32 Test Item Value Reference Range Interpretation Comments ALT (test code = 1742-6) 14 U/L <=33 [facility] CampusFractionated Wzqlovczm0790-91-36 15:05:31Bili Total<0.3<=1.2 mg/dLUT [facility] CampusAlkaline Icfsfjznugr7241-85-47 15:05:30 Test Item Value Reference Range Interpretation Comments Alk Phos (test code = 6768-6) 124 U/L 35-104 H Lab Interpretation (test code = Abnormal 93420-8) [facility] CampusAlbumin Hdpss2982-31-81 15:05:29 Test Item Value Reference Range Interpretation Comments Albumin Lvl (test code 4.4 See_Comment [Aut omated message] The = 1751-7) system which ge nerated this result tra nsmitted reference range : 3.5 - 5.2 gm/dL. The refe rence range was not used to interpret this result as normal/abnormal . [facility] CampusAspartate Aminotransferase 2022-09-12 15:05:28 Test Item Value Reference Range Interpretation Comments AST (test code = 1920-8) 18 U/L <=32 [facility] 2022-05-29 20:55:42 Test Item Value Reference Range Interpretation Comments Submitted Clinical h6zsnSFrFJQzm0wgJNMssQNh History (test code = ZzEwMzNcZnRuYmpcdWMxIHtc 69762) ylIjSZwlm8RnL1RsBvMaTNby bnNpXGRlZmxhbmcxMDMzXGZ0 tcNnNTEyNZqcNPRfHNbyJz6a nYXjiPofRuBkSCErh3zscmQJ dombtEn1n3mtDVTbDrZ8uAGg OCvgQ0zsjtFzlCSjCCObJVh4 wP32PHVngD5ekGPyXZhmosLd PsV0IHhpSIEgMzT0BTGpcKJp NWItK6qjIFBhMUcpPSQeQAww lODwNQE0vJxac1Y8gFHbdGSm hDwqMxKsFnNkSjUUr0TzYKd3 kMgsP8FqYGHjLeT0wWLoWHHo HQndLSSxWCDdjqX9wL90SYtf daZ7oQHqw9Hbb97tw954dI5s jRUhGLB7GHCbQHIaeXXiRUOp EVJ5PSOnxTUuY9leSYAoUA3r rsipKJeqJPbbAOYvwWQ3YOSc fQLvL6PiNSXoZGecVAXbsay0 YdSeYw9diGYlpYzaIOszs3kc r8wzqCAxIfj2GYGwOpHlHhet FFeen8Khg7wqKAReyx7vMZR2 bNPqhXqbw1T6lWHdQBWobOKo whQuYHWqNuK0MBwwZC6eze53 URHeFTC1ae9weYTnuYpceqBi cMVkXHizY3FnSZMpa819AVSl S8KcEVKxe4Y4pdJxJoSqIXDf fQH4gpV1TGKzTFl3lLBwuqQ1 qdWlwCOkL6sbmG9iGRPqQF9g jepzi1zwFEnvZIwhTSUhtSE8 etF8DXDahHVtA9SjmX8rSUYz GOgbKXZnlao0YlIiMh2sgIYz eTcyMFxzYmtwYWdlXHBnbmNv bnRccGduZGVjXHBsYWluXHBs YWluXGYwXGZzMjRccWxccGxh gX6wHkWxNsCkVMvmLI3vDUPv U6lxfTMcJITsHPDmB4jxRcIr dX7lzDejVSsddaWeEDDkVA1k S7WuI2dmy55hUVIWU5Fne4Ci wDSiYPHzcF7pLPszkSDaAaJ3 GDVeiO4gA0JkZW8mFu9zcXrx yZ6iGjVkKnPhOwffAD7fLJSn Q2nhhMGzPVQgKHNwN2lmZgBm fI0biXtyVShssuIjEXTgat52 Diagnosis (test code j9frlMQfDZTwnKFwMNNuJglf = 34) riKvIOEwhLPkG6DegszwDKzo BL4kZJ4wcAslqUDvmILqTQGo WnHbb3rae970gNZca4oaBAZE vlrfcIp1fGioL16pb3B7Tjlx B52kbLWyKKR5YQGlEZWxyUVd TGBwUZW6HWAhiDLyF6nbZQGu CQ7boipoAGejZTtyQXFodMJ9 RKDhjUJbU9PeNAGoEBbiJQSe stp5LpCwYg1uiSBtfMqpBApz BJCaSUEzSAprNWSdVmGpWS5n MOxudDrmjm1kBRukh1PlGY4q oClfTSA4VirnHHRzdORmIR4a G7J0iRUdVCCganD6pI0acl5t oWFtRTFmlzTTLqYOlW5dyDZp u8XgVMOuFGO3BARytZbgylee EOQHVwtgHGIgpTGvEN8mL0O0 iXNcCUYrubS7nH0pjt3ypTUs VAKsayZGJbGJhM0xnHTor6Xt PRZaYYA4ILUzdoPuyvbxKpKm LCAxMUlccGFyXHRhYiBOZWdh pPd0QXDtu7IazATsc2HxKORo jmegYMTzGE5oHHoqoOrgkv7j REdbxBAbYD7ml0P9jTQuECD2 AFHvopl2RUInAyWpNNMbblOw Vq1eTYY9nA6wBxnqYFMosRKh QYUhOHs7oVYoOH7wNEKeVWX5 ToBxckurLWqbHKb2MSObxil5 NUFcAuWcZUNfvwLlIo2vFYB5 iN4eKhtrAJYgvYVmLXKmIIj0 usqzQZzvFrXquYClHWQckW3w XLmdtO9oRMU9f553MkxdXZEr mIQvJTN4mBGup8a2ZAVsJ3Pb nwtaQcOhICIak3ZfStyzsl4o w5dpLHnjzd61rmFfC2RlAVK0 sCYzFICuT1WzXMeaHB54JKAp aRakjlAgE3Xrc24kBX1sSYqt ZccyhN5fgG5ezIMpdWDsJ8Co LlxwYXJcdGFiIDIuNCBjbSBp biBncmVhdGVzdCBkaWFtZXRl kg3clXVvGYDxDxMTlyIbQVDb IBYsgQF5gGTlxSSlyFIos5Tb xGHioZGlyqQoRgsvND0spUSk WPEtYtGVco3jH5qdTGtoTZ3c ZPZjwbXaD3p4aUOlET0whgmw evPaWFTiQE7hM5G1yKMzXJDp kwM7xF3wbw6ppMGuSKArDaAU bMaavNHwiP3oxVVng6RwdiAv pdRatgAwPEKdobCbEk9cRXD4 zS1uTZisDhfvHQGiiwh5OQUg cGFyXHBhcn0= Synoptic Checklist LUNGLUNG: RESECTION - (test code = 9864) All Jnbdgprjt0sz Edition - Protocol posted: 04/27/2021 SPECIMEN Procedure: [...] Category: pT0 pN Category: pN0 Gross Description t1cneKYyWWDssOGWGHAgEOOn (test code = BF6qkSoypPy1pLtwUDBhcrU1 [id number]) iQUgEDdhw9atIQE5n1rfhrJB NmkrCMUsCJ2pMRdcAUYsNQ9z ZmUwXGRlZmYxXHBhcGVydzEy UkXaVMZkjYEgoQM5MSZwDE7j jvgbKRiwFWywHRFyfiE6KAAh hVQkI7NcCJPbZJ4qsckqJKK3 OWOLHxfqUj3vlHGsuKiiWvXe ZmNoYXJzZXQwXGZuaWwgQXJp CQb4dH3KEnygB61ia0M2Moj7 XSBjLZDyX5TkZR0dMEEfyONf I94REeujVOT4KXYGSdpuOlvz fMrhm2RocLFlQZDiZKyctXEx NTEwMDAgXFxkYiBPVlIgIiAx BCAhLAU0WwU0JGf4OUQNNVVm YaS4EsJ5ITF2QQf7YMFxDF7m PZshqKIcEOzsLhayVJmkU429 JEwdDYFrH9ZiT9UmZDufAlPw SDbwBXFnMOSeZKtcVYNrZ0NR SORvQBY1ZqkqTzXmAXz1WUrz P5ATTPItGNW5LbS5Oyn5JrP4 HFt5PIQWAk6lICVmUzM4FZT2 XwT8WOH6RWApNSXoGvYqSPFx OFRvTVycmNHuID0xfCtxSNTi XM6HUIJaJXhmAWBaSmQmLKOW OlxwYXIgDQpccGFyZCANClxw oTMrhhhlJJBwXxRquBsgrU8k bZMxU2vbUyQjFdoidKycMxYx dERvYzEgDQpcbHRycGFyXGxp bjBccmluMFxzYTMwXGVwaWNY z3SwTIPMObyzYTNuHAmczbKv HYp3zPOwHQ4lYHDyczamSHH2 ZbFlfgCjTfbeQJxry2OfNkPx XODiHWO1GIAgEVXZl34ndNJ7 ugSpKlTsKTQrVL4qdx54ffAo lQ5keJWdg8OkKHquMvptcJZp VjLciIYmAaPmK03jGrLbYNgk IHNwZWNpbWVuIGlzIGVudGly HZr0ETT3Ll5jhCTsZJEdjwKd ZVNrZPL5IPPMMV7rBJqwji18 CAC4w8gqcDYuXJxmIortmAGq nkJ9DAlMGOZGUDxYDqLiXI4x PUxJTktCRUdJTnwyMTAxNnwx cRMXZSP9TCfvmAftsRw3m6dt mFTri0e8HJseAIB7nW4Jl5vz yJFlUTnjOasvwIRgtkB6SObY RDKPVIxTZxVrCW0qOEvLOxlO ZnT4GqFrUAH2SBmDW5BCiJO9 Spu2RRo0gNguDoiskrOiiDTb NxOQaB7qmPuvrH7bgCElE4yu LlPyAVQFYiyuBWLeJILyF8dg TABxQEqfUOQaL84qa4RYw2Hj q0ffpZung2ZdsHHwBP4juAFw ZE0Ip6wrKZLybTWkUYW0CQfe g4zyRZgfKUL3JAAxGaYzOAVf CF4IXcAgQWEeBLN0GQdxENk4 YIk0QH9ANyCfUEMhOZKlBZV1 AxXlGXm1LZbiAD2XDWJtJABl ZFWuIPxwGPFvFwsyTXt0MVFh NWdhzzMtQWsfOvmrDPyrI60g c2VaELHsFBAjV4liQhAlYXUH ClxmczIyXGJcZnMyMCBCOlxw YXIgDQpccGFyZCANClxwbGFp blxsdHJjaFxiXGZzMjBcYjBc ZnMyMlxlcGljTmVzdERvYzEg DQpcbHRycGFyXGxpbjBccmlu LVqiXrTgRBIlxKBRn0RdCUgw IOHeBIEtePUZs5HtFYPXNfkr BDCeZBbxetViASz3eLKaYZ4l ZGUocyksIGxlZnQsIGhpbGFy PWCvLRkkGT6dPJWxGMhbZjKk WbpuMJOdT53ut1nauANqh2Rn KHN0OPptc6gebPDxOMb8rQYr QL3kLQXmUVSdXKEymMjzEBJE gYBxs4ZbY3zpZC8izVRuZF68 vYPciRqej9CdiZy2nWTjQDln LJMfj9ZcoBAhONTvScOrWVAr d3ChK5C0CRPuYBsrb8gwXYNa EBigg5PqSFlHQLIPLF4YYL1k aCM0VMuQA1GSC7kDhJElFKS6 dOA5YHHMXhfmkHV6rPL3jT99 ILIhHKOtjXXfNKxmB959GQe1 YIZqGQoqe3njFDOfJUnht5Uu HLqKISYVIR1EMB6ezUG4PNdC W2DMAMzeRWVdIsjlyPKGKHE3 CMhflBldkKz0k8ksgQZve4t9 DIdgTAY2dEvbxKWgcqnoyARf mNiukaYjPX3CTJWyjrCrkPHk cGFyXGxpbjBccmluMCANClxl uQiyWyTdaKIzYtE5MMZrzBYu LYX3VZ9ecZjlTNQjQZm3JDti EFHeA8DjP7CnGNqbLoAyRGnx GMGmLOXgUKhuFACbQ1GWOSTt YUK6IijwRgThMEg6OEusV0ZA LAEnGTL3TcL0RmJ4PxC7FLn6 IRWKPh8rFVUcPzG7USbaQrO1 CBC2DZBdAGJoKxEzGFNoABAa CPsgnSOcAX8jeTltHuGuELcv yBcgRJArTVB9AD4JYXBzPuOt PiysffCbATL4IKCkrgCTPvvg FGObZV2CHLQdQAolWYa4rdYf XGJcZnMyMFxiMFxmczIyXGVw gIBNESB4NU7fXZWSCcvwcXZe RMTjwDhsECtinK7sMBVrJwCw NAHwI2ygPjPcVCGyCjMwOOHl Q2opBCPnYE3QASXlF8EyPOYw BqLbAZiziMwfjc7kDRxgSNxs bLCkoGetsI94EWPqg1Yqzynh USCrPSTquqVhUdCwT0DoXWqk KyDkFFIwhqBix3WmFI5bEID9 yeIrGSPxLpLjd99wvTfpqXou lr0rQJMhSRQmGOZcswAaLK61 WNPvJB9jLRBwFXSlpTUclH7u biBpcyBlbnRpcmVseSBzdWJt uFE4CGHlrE4wW1Xof7H5xZTy QzEuICBccHJvdGVjdHtcZmll nMB5FIuoFvqdlW6dzUALJYZH DlwVUwyonqUaJW5DRZ9XFvPD ZS12QwAxLQJ6SVhCX6ROzPT1 Ych3FZx9kZrdFzrwwyHrpFLx IuJQjW8TCDxyZfiqnDU7YBex LcrneV6nhUQHPZPYNaeWByly moGlUR7VUH1SVK3NxJQdAZU4 mYQ5FBFJRniorCA2cRB4nF66 LOXpAVJckJHwMSkfZ128IJPh KBiaUWq1fcOlFXHqCbNbNBzu cGFyZFxsdHJwYXJcbGluMFxy wW4eBI0ZYUGhlVFPKWE2MR4z ZPvrYPVrN2OqG6PuryX2DDJc teWXTruuHrdkjNefx7VwpEKy XHNnIFxcaWQgNTEwMDIgXFxk MdFDVrZgUgHfNJVsIHD0UnB5 MIz7QMIZAhKePrHrJOXgZci0 OTZeLBg4NCo3BUeUFxAoSnT4 TXMcRPU2LIW1VUm5ULwriXFm JYuii7DpIaRhGNGsSXakfxD5 NSSuTMZ1FOTxqICKj9ZxYFJc DQpcZnMyMlxiXGZzMjAgRDpc xSEmML9PONGntxHhRPsjbZxf dM7maYYfE8uqLwmvckQeKEYe FMTjHrDkPQOfE51oa5JRk9Ud ZN1FUFw2zyZuxnmhxQ2xHTGc hbDmk3KoHXyqrKjbAHElDqEl g3JcOJdtvCglPGRdGsMcHPox PuxbQjRxXhKuIPGSnJ4gmAGz h5EzVIKaMCJfNJFuVYYsqoJn BpiuZuufq2IxWvOsH0JvCGuy P89op1bdaCPlk9WykLalXBLg mpAwCJGne5opTPb5kDDlVS8k QJXfOhQuEEolDiEkM71ePzGh VGhlIHNwZWNpbWVuIGlzIGVu dOhyPBf0OQJ9Ho6gxBVwULLe oiYrKZTsSLI7KSFKUU0rXZdm ke27YWM1t2uwhBKbOZwoAsuk dMAgpdM7RGhCMZLQQDvSGhHm YO5yROrLAueNZRnKPplwIQRb AimoeSOVCYL6WUecjSfgiKg1 u6tecVGzl2e8MAxwCME3jK8D a8angYFcSZmzGjglxXFalwF9 PGzBZNQKCMoKVyCxJY0aPUhS VouNEfP7WuPiTIM1MZrYT2UU uCC3Pvb8WDw3iSfcRnwcnpFt aEXlHtEUlR3kwAsysM5zaGCa S3lmLrQhWPPZRmrdVCVpQTi3 trPaywxxzS8nTLGtftGhUAgb OPPhK97pd7JYg1Ymy8pphMem l6GhaILnAI5hfNAiNN9Ta9xc JDFuaJCxQOW9KUhsy2mwTBvp SEK9XWYgRtRhUHNzAL6ICdRq DBCxSRN3XImdTFs0OMa8LZ3B AqXvOOIbFTTbEYk4DsClKMa8 LRbxHZ6STBLtBVDqZEToRNSv TVWbUlndEKv5XXVlZPjmbcUw ERifUqsaVArgI25lw8IfCKCn XBRsG4buDqGtCRBCLvwajwXm XGJcZnMyMCBFOlxwYXIgDQpc cGFyZCANClxwbGFpblxsdHJj aFxiXGZzMjBcYjBcZnMyMlxl cGljTmVzdERvYzEgDQpcbHRy cGFyXGxpbjBccmluMFxzYjMw GIPuhQRPz6SlZDteQIPpGOYj bSRQl1DeMEFFJcpwJXJkAOzm avWgHDq8iPTkFM4jOETfsuio SPS8NwWynlfzIDfsICkuUK1v FXUwJWFyUZW5BZPxYTYTc38f dDH1iaWcMnF7b51fhrOzSATe q3ypGZi4xHXsYJ6dAMAsUFdu HnHgLF5lBPQiKuIfvMmdDKXN mKTgf8VrZ2gcMR4rtFYpYC20 rEAmfWzjc6JiqKq4fDWiEOop DRAgp5DjwBVvKOGoWhMfXIZa z4HkA7P3NCWmKNddc4wcNKLp FNjgu2JhJVsADMRHGY2JVL0c yHM7EPoNX9CCO7nQyROkCZJ9 tEF8MZDDBtwokMD2wSX8wZ56 FMNqZQVvjHMjNHerT057FKm0 DQJfCNgat1vvJKXcMAroe3Qj TQcLUDCAZM4AJX9rpGW1HOiT P2RNWEvwRIPtNqtxzNPGDQC3 VEphpZtnyBf2j4jiyTXqx4a1 SNkuRYF1uYduaTUeaynhjUMm jAogfyRwUW7WLKPuwxDwmSAl cGFyXGxpbjBccmluMCANClxl qTygWeDpjKWmCnY5EMHjlHOu LHU5NB6yhWusQNIhQIu6UVwt IPEgN7UsT3SfFPavGwYfDRwh OAJxUBGxJLjuUXDzF7HLNKCu GSK8TgxfXvBrRXc4OUqqM0EE GZJlTFD9RcR3KFSyIxH2DSd5 OWSKQt4dLTDvFvSnYFS6UzX7 GRM1IHMfDHGbLpVuUCOwPYGt LYtxeBSoIQ9fcLxrBvKiBVxn eTayGYNbXMQ0VC4IGAPgIsOo RjeeqyZcTPT5CHQsntDBZtlz PQFcVP8KCWYeFMriSEo8utMx XGJcZnMyMFxiMFxmczIyXGVw pONIZVZ1CV4eVRIMHjbmbVAo LNKitOefMWqifO3vSLHsRyRk PZGoO8hkRnXqEA5LOMUnF7Wl XGZzMjAgTHVuZywgbGVmdCB1 nGJscgCoh6JxCFDlFPP5WEHp bXXmFNkdXjVrgQ5pqK5lVr3s Vc9lBs2sDr6gGv2ngtHtIMem KnWdYbdeWFQoALLqTB2uILnj YW49ZYdnBs4zHXRvYGdrWrOx eSUhIBFheTDzGhYpx5JjYMue vYtkGCY0XnQwG19yV5FinAUs ZXRhbGxpYyBzdGFwbGUgbGlu YCGuwuQqCI46SWImCXocEBbc CCIsZVUvLOLuPAAoatXxnF9k wBDuMLXqF8Ubr57icNSxI3ov LiBUaGUgcGxldXJhbCBzdXJm YWNlIGlzIHBpbmtcdTgyMTEg INg5BbAxHFR0oVKfQFTnVx6z NPdbyTHtd7OnWLOaNQTuZIYp OX5sQULiFWczPXowAMU5UXX9 HYZxsZOxx5lusdwxAIBcfwUA TykmVuHrUEGvJ0mzXpPzMLqy aKXjVTafBNVoCVqHbJLyh9Bw cGxlIGxpbmUgYWxvbmcgcGFy VF2ieFzrSMfwwTMnG9rkPMud h8LfFbWMwTMsh5VeU2jlAR4m xOAaf2GmfWEmoZyyj2KgsNbd wtRoUDLftlNqnpLaB4PaKWJn pF0ivZpnAF5qrjvbpiO5wbWf ZXZlYWwgYSAyLjQgeCAxLjMg gRWlTuDtV54eiOSoCTe2GLQn PDCbTgl7T0ZjjRqjLjukdWpm cOadRBTxYrfqWGNkmh9hrNby JQprnRdgMDOuPXzbAMY2UfVj GKeiSZS7PSubq4fdC2J2GST4 dtDmY5Zzn9w3hJ02hPQeBJ9o agAeZRnwSL1gIS4lC0Hxy1vw DSVnMjVrD56bWyQegJO5tQQl ubKswoSuyZKlYOMlojGdsJ2b jDWpETGzW9Ugk82amNBcP4ns HQDwOhAjK46nNcLtoVT6eLOb DxWuwfDzlLJfDTWbRVE0EFZd bGhkeuZrRUEctM8aIJ3qDGO6 sCKrZYrhZgJ5ptA0eFCknAHc b2PgBBIteDrepMChIbFRpRSz kBWmdfWkayKfe3GohE15c2d9 ZHWuf5r5jBU2eIAfqQwhsJVz oXGdmUPlQSUhGdMtuUZnOH4J QMTbxzGQEbMqSFP5bqrigr8i nqRzWCi7nnwjeGGqXV3boBir HGKqcjPqoa8zr4b3PQNwzjSo SJZpXBNzYB0dUP07hPCzzTrz VFUwktq0TEReQTAsByr6Ihtj Z9alfA0tn5zsbBQjlMczhQhw su6dGWAlbRSwgrStDgubBTOe MM4krP3bSUTbr53rMP5qPYAz IDAuNiBjbSBpbiBncmVhdGVz lSNoaF8ixjEkt83cBMNevaLC BiotVPEpXRsRNmghZ19PDRju EukpK4nncCxfYDBmooOcH6s7 rIZfuqEkQBY8bG3rTM7tuwzv pwDktM1fFmI5cLGcs3PhrHgi YKajanR4QWUtrJFxqAbhcZIu ZyKaxxWoA4RicXlzCQLsSBq2 VroaaNAuCQNtSKEvNMU7ABBt iwTny4AsrKEsUkI7pDMhGvEi zaZfzQXeJDDnWBN0LDOihAjz quGiIJYeyR3yAPLfzfZKBwmi GYBdZDVtaVZQs8ZwEUKMYgMJ Y6HNF87pU54JRXofOfAkKWVl r28tkDyylBYgCGAxlZ2mNBIu LLQpP4H5UFUtDYD6IECltQeh xxNaEAJztZ3oDGYwTKGbW3L9 DCXgUYTsl5K2sHXve0n3rRXr SYvgV4UkbNAdpQK7lpE1ODD6 BZV8IhFaIFjwHXNSTPnvPP97 uNHpjKykc5NduKq1aIXhZE4h BNSvAKVuXD8urF9abochce3f dWxlIHdpdGggYWRqYWNlbnQg iPHfYyPjRPWrqrNmmK6jGzYA TIyrcOIzEfPwVDMdaoQjlE9l EWZbljOlVT98PZZeRK7jYDUu MKyrS0uyl1TgwQ3pvYycXC0c jvcpeiLuZnEtmbBhQV6wlcTl NM6aAWRcVVQkkUJbfVChfGnu XWmrUzZyJGX5LkCuNIhoQUKJ TPApPEQlzUMso7QkkAW6hBVt JLEgL4Xym00aq4JaeL2xyzEf xDOkRMWaFNUlmwTelM3gOM1v RXApJAIrnA0uUlLRCJMntXry ZUHzDGy1FqYiLcxcWCWfuXPb h252TXvsvX4aEZEhfR3ec8da yMRddQxovEfilg3rXCI5YENh HKvyKtIcc6HatQUyXDRelD5k bWSgi7Bdfu1kVFmYCOuzr7Bx BWIybQMDx8MdPO4AFKChaETX HUS9YU9nQRzhWREpX7HmM9Td jrD4q0hjxIwwu6OonZIlYB2o xLBgSI2VHAAjNzIdBRt0 Disclaimer (test code n1yogLLgTVCaqSFfYvRxGMYr = 9844) TTNfa7vcRQGbmGBkZiVmLuMc GyWpQzrkgEVjUGFeJvBcz6ke r440zHGhv0onFWZbTpW9oHIz BHOluNHfG750MHNaYCnfn2kp o4OrTTDzfNVpc3N3RLDXsevj vNy7sWtuJ89wf5R3LjysU5sv QHQrVBVoZ9AgOG5lLXUpAon1 WSG5DRS7RHNxYESmW5ToHN7x SFYvbIVzFDs0y5ruwGbaQNGx VKV5f6ocVBnykzEwQB8bjn2h aPh3o8jpqpPqMCCaKPMijELB SZDoF1RfmLgaZu3prXm0vIis PihqVNS9Xlx4LC0rge68buf4 iUhpGQLmcwrhObM8UDslYWJf qdgeUNj6AEfeNHHktAN5NXQm kSJuM9XnRWYfMC1xfyh7JOD9 SLocMIJyByN8AUAriGPqHYYl pWhdAUons346TZL3AfCxCI3y M5Hws4M2zW4jaQEsVNGceGDk JmYjREFdlh0hfJItBDntl1Ci RBM8yhW0sMRkxOTsQOEqQC36 Chktm3UtCjkoALB8OKEfzfZd i7Net4yxKeRzqyOpC4dtP5Qq XHWzDXDaVJHyHhBnbvRxv0Ek f8NadNGquGd5j5qiVMUmCYLf qZpwf8ecIKN0FUGnF6X3sREi h9zfVJadMLIrzRS8zyF4LCMd fWDiP8IwvO3cEUXyLQ5cpce9 i1fqGLR0XAcoMOEeMqS5tjE1 AXJjaUYwQCYdtOaySVnzi644 ABT5YlLfAZYck5FoD1KqvNqz P25ubMbbS40wACTjtRdanT2o dRqmmF5aTaTiJkOxEDpztUuz hGApnmxaSMrwynE8NNnxhcwy AEZrKOlyD4ueZyElEOJatEqc PXaym9SyPZSiBMRdSsgbqqE2 ASLKb01lCCIya8EgVMQsgS1v tXZmRRhbdwEjqRR1DBbtwlSc TyBtwgTdBMBhxE1fQCSzCQ9b AELwmtWuny6nxmBwXRErLTIb P7OcqdgxoMynmxLaVZEsso2o zcTqIVG1EGDHTP4SRMSpTNVz j43bAYBmpSzbgG0pcUSubdHv ABCiy9DjdI3hrDHUFKJoQ1vi UY6dGPlpt8GgpXKnsUGenGS7 VKBhb7MtLlGmmyVvwCGmbTCo Y1YqoBuvE0eyITHqUXSuqhFj pPZca2NwUHQmlLG0aCHpHI2W UsIGs54mFEWzNLNFinNhLRLf lVpzjMW0ylB8wW9oZePREdPa fUIyeGCiEqhfNIBjp686ct5y lfH4WKUyMJRzcjsoa6HoOWXp IMLarU41NXPeBCNbma4fsnrp oLRnufPaV8Qhbtr5bM8aWOCs YWluXGYxXGZzMjJcbGFuZzEw MzNcaGljaFxmMVxkYmNoXGYx UAguI7qlKnMkRqFnVhwiSHI1 [facility] 2022-05-29 20:55:42 Test Item Value Reference Range Interpretation Comments Submitted Clinical u1vyvPHsJRMgn4pfHVWvzFGi History (test code = ZzEwMzNcZnRuYmpcdWMxIHtc [id number]) mtYdVTzdr4IgC9TfTdTwYRkg bnNpXGRlZmxhbmcxMDMzXGZ0 hhIpGVYbUXbvFQMnOShzWx4i oHOgsJmaDvHiKMTjv4okdpNQ janenMh1c4vjGVMzCzS5jHCb NMqwD8gfpnFmaKCwJQFtVHi2 bB54DJFrbN2jgTBxEMcypxDq InP9CSxxSUTjDsH7IYLlwGPc PUZoL1tiSOTzIWrePTWnNPlc pGEbKFF3yPqrb2G1vFAarVEi hMuyMaJlEjDhKyYGt4KoEFp2 xVjnA6UhNVOtNbJ5uMDqTPDd SJhbEZRyJPHpvjI5fF04OYbn byM7yXPxb9Ozv18oy308xY7r oDQyYQU4ULJdYOUqrHOaFMEd XLG3DJXzrEVkT7wmCZUfSK7a jhxbWCpzEXliVLUjqJU6GCNl vDShK9FnJQZuTAjjHBKspss6 HrKfXy7osZZcoRcmBEvfj9fl o2bkdWKwZzf1STXaYiMlFpah FEnxb0Zhg0ypCUIxuw2aMPT5 kTEqjYthg1H2iAEhKBXrvAEe ikVtJZHrDbT5ICerEO5ufs40 BZHuFWQ1um7vxOVgqXhyddCc wQIaELdzT9WeVQPra455GZPs D3XsATEfc7A1jnQeUdBxKZWg lVO9pcP5JLNvKEq3hNUwjnW5 yeBmqGKbH9qhjH2uCRJkFO9s bgluy9ybBEyuAVvxAZUjhYD4 ivO6QLZsnLAwQ7MytB2gOIRn IUueXJPbqde7GvVePn8pzIIp eTcyMFxzYmtwYWdlXHBnbmNv bnRccGduZGVjXHBsYWluXHBs YWluXGYwXGZzMjRccWxccGxh qY0fJgBkJbGlHXwaGS3pWSIx V8xdxCNxLYYjNEYnO7aqUsXf mG9zqPklRSrywoIcLISlCS4r T0DcW2cuj25pJUNAA5Gey7Xp aJZoHUFqaY6cXVdfwQFlOuJ7 FIXebG0uH9EwBL8qOd7zhRje bI8wMiHpZwVxQssyNY4gKTIg Z4uuyKHoJSIzLZBoK8xhNhJg kC2mqNbpGGfpxmKmQUFmnh19 Diagnosis (test code z6etuCCjPIVfyRIuALGkYhjw = 34) yvPbXMIdmGQxJ1IpyxnwNTcw SI5nLP7dqHfkyULhuFYbQCLv SfCaz2qsn920uHIci1lzKDEA dchegHu6sKafF24yx9R1Unqm H94ywCRiSUI9AFEkYXCfgFAq PVVoXSI7ZNFgvFExA6moWZSo CN5avfweCVoxPTpcEFIbpVW2 PGTccRPrU2BvHSGaUUxyGTJg kmn3PsFvHv0ydRLbgAhcHSes VKKdQIMlFPkrKBAqOfCcFU1u NWysjAyzto4eHXigv7VyYP8t oIwsEQZ4YwntHHAspOIsTC5j R6J4sVDhPKXbvuI7iJ0lwy4h wXRgTEMlumDGWuGBiL2vgWDo t4EwOLGuSCO2RTEtaMyqzjxf RJMFMdgiKIJihGIcZX1lV3N0 iWPuCBWchkE1lM0ebx7ccELv BUBmwpGEHdQNqX1hyRMjl1Am AKPiWXE4LARbciSvkjjqCmQs LCAxMUlccGFyXHRhYiBOZWdh kPx3ZCMlt0DrlLTlv6RdDVEk ylpoNPOyDI2pWDgsxNivzm0x GBhcnDLkNB6xf5S2lLXqZGT4 VEUewsd7DWKeWcGcZZOaxlJk Lm8hZWO1kM5zIzeiOSTwjZBp MJJuOFy0kSKuGS9pXORePXW2 HwZijiojXSxiIJu7XKTpedf5 JKJfZoPjTHDklcLcSs0wPJR1 eZ3nUnxuADUolRFmEQKyXOh6 tlpiAIdmLkZxgKSqENQftZ2l DFwwiW4hYLI3u586NrtuTAKl hZPvVLZ6gTIgq8f5NYDlM0Dp krvoSuHyUAHzx7WpBsiysw1d i2qoJKypde17pyEpK1KrRNH4 zMSnKBLtS6MfXSceWH17FBUe rQorujVvM4Nly10qCQ1rBPyg MafxoE3hvA1niMSicUOsQ3Qs LlxwYXJcdGFiIDIuNCBjbSBp biBncmVhdGVzdCBkaWFtZXRl su1jjYQhDQLkMvFQeqKlEPUz NLXnoPW3iENtmVVqqZDsk0Kw dNQukNSrmvViReqaAE5clYRv NRJkYdWOte7xZ6zrIIxpXX2d XELfneHwA2q2xYDqEQ6dpftn uiTlXFLsJA5pT0W1rHFdWHWj mmI6jX4qml9tnWNaEIFcKvYX tNijnNXkhN9raNFct0VhzaEg lxUdzvIuEYAbhhFuUv7dHBV4 nM0vPPfeXygkLYPaikl3JCWz cGFyXHBhcn0= Synoptic Checklist LUNGLUNG: RESECTION - (test code = 9864) All Elsektnqy4vl Edition - Protocol posted: 04/27/2021 SPECIMEN Procedure: [...] Category: pT0 pN Category: pN0 Gross Description r4nwyGYqSRGhlVQPCJLtWLYn (test code = VZ2qdOqweUm2ySrfGEQgpkF7 [id number]) xICfWThdu1ycVWJ6j7cleeGS QodoNYNqYI9mGWegDHMtGM8p ZmUwXGRlZmYxXHBhcGVydzEy YpSsTVZvvKJmyPD5VAKhJV6o wntwAXewYWrhOIThwvO8MBWr hVPdO9LsCUYjYU7ojsxpIQS4 EUNRRqtmXs0znQVdqExiOpGv ZmNoYXJzZXQwXGZuaWwgQXJp IEr3oW0OUrgqV02wx1G2Zrm3 MSPwWYTgC4SgJE5aMLHmhVQj W67BPpnoZOK2ZAPDCwlnWrtx nVrxb1CoqKEsYJEtMXuopIFs NTEwMDAgXFxkYiBPVlIgIiAx UMAcLQB3PkF2WTy5BHQXVVEt WqJ1EiN1DNI0RMp7PLOtJW1z RTnslYFcOHevYpqsMAtbT729 EOibDQYjV0YqP7FpTNzfBrRu TSqdXJFjNRGcXEtdXWHiL9OS GXLbJSL9FufgQfVnHGb8HRgz B5FLZOExJGY6AjH7Zft9JiE1 ZUg3ENJXCh3kKVMbKpE2IPN1 KwK8WNE0KEEgZOMeBoFmGXGh CVAeCJhinENvJC9kuIwxJCDg PF7LFBPhJQpfGFAiJiOvKVBH OlxwYXIgDQpccGFyZCANClxw lNBzathwLPVoFzDbzRppuC9w yQBcQ3msImHoVlyxiLsvEsHs dERvYzEgDQpcbHRycGFyXGxp bjBccmluMFxzYTMwXGVwaWNY w3WxBTAFFhtyWBIoKSluspTa PRd6hFIzXR3xDCCsiwxvIFK0 PyAveoOvMqzsFAcwz9WrAnQs IJFrBDW2EGNmUHBJq75itPR2 urMnJaWrBQSvUC1izm66hgUr gQ9sgAJrj1CiJOnwXqehrNNk LcCwjOUwDpLvD86wFfXzRApj IHNwZWNpbWVuIGlzIGVudGly RQa2XII7Ax4hfFGbIFWnbnOi RPJhULD8AVFBLJ1xVHpeno40 MXL7v7qkiUMzAJpfKzypjNQy otC2TLnGRELOTOmFBcDwGE0m PUxJTktCRUdJTnwyMTAxNnwx kDYXHXZ2NWksqAlbmRk2o3oj lVXsr2q6XMtkRTG2oF9Ty8hx mQJxRCzoQudehXXuwdW6MXcB LYFYTAxTAvOwYQ2uBEvCGclT QhL9TtXgVBI5GFrRE5IXtYL0 Lgj4DNf2lZicRohozvRekUMc OjVJuL3ctAvyaB8vqJHjD9uk JkMyCRDUUcziCWPcRQBeH4kp PCPnSZzbHFKcK75kn3HWy5Xx g3zpeIszq7IyzHTjXQ6bzQTp CS4Lm5zwFMDdjIYgLCG4YWbr a5pgGCcmEPO5WZStGxLuCXQe QA7MVcLzGTWcMZD9FEyuPTm3 VSt2QP6BSiNwPZUfZMRpZHY0 XuVpPDi7JUglIU3KOGEdHUDb WWDiDTxzTYWuAhehBYy7UXSn MZtkwwTfWRtiVkzlTMpwU24i d3UyYIFsTEXwP8vbReNjGHFO ClxmczIyXGJcZnMyMCBCOlxw YXIgDQpccGFyZCANClxwbGFp blxsdHJjaFxiXGZzMjBcYjBc ZnMyMlxlcGljTmVzdERvYzEg DQpcbHRycGFyXGxpbjBccmlu BCpkOoBnOVHmuCNHs5ObDJku HOChDADzcCXMp9MxIVYRKpei RCHhFRvxcnWaFNf2bNNrSN5f ZGUocyksIGxlZnQsIGhpbGFy TLUkTCmlYN6dXQOdODqvIaVu LgrhZKTnE06jr4qogGTip6Xm MQE1ZBjuq6wyxKZrLMv7gJIr PK5iUQHwANFyDZWpuEcyKZTT zTHdf5NvL8qiQX5olHElIJ07 dGKnaYori8XnwXd5wXGxDKox SVYct6LxwPAaDPUuKjJzKRDs g8RrN7I9FHUdULuhp3viFTCz GXqgp8YlADhEZBAOKE9YZE8p eWW9MBpZK5DXM5mLqUSiDCZ4 xXR9ZLPMPsqcqHA0zGT3nY43 IBKuFYSkhRAjCVrvX358UXg1 QPNwXKpcr2zaLIRmBTrlb5Ge MKqENQQGTA7FMP8zxEK7PDlE Q2FQQWpbRLFdMsaexQXROJC1 LYgrxPksyXe5u9cltKUvg2f4 JYgdEOJ4jNdukTPgfziulQMs kOnscwFyRZ9YRYXpmxCzxETs cGFyXGxpbjBccmluMCANClxl eXetBoEzaRYvHfE6NMWcfVDm VFW5AO1tiWsnBWMbKHe3IOvm SCLjU7UjO1JvECbwGnZdYSvq TARzZFCeYVkiUGCwW7LCMWRi CXA9AvllUxPoJEb0LTwyS1TO NPVlHFA8XfQ3DwL4FlO5FIe0 WIYSLc3yZBLxObP9HKajIeL7 FGG4IMFoCGYbIpCjRCUuMYYa HQihyCTrWL8dcOfeWnUvYXpl mLgzBQViIWQ4IN5NJRFfJvNf VkicrxHfJLK0KDGyzmENRgpz OPVhHX9WJMFjAXusXFr3ydMe XGJcZnMyMFxiMFxmczIyXGVw gSQGYXX8SL6kHIZAKhrebVPt AEVltNsnLBkniS6jWZEaMzYt LZGzI2ggKjPgUTJsVwQzNXLd Q6biQEFvZO0KBENaF9NdKTDx QvAfXSqcuYrazc4gPDqqNFlm uIJscSmcaS70JUPhg8Flurnx DGEwWGEtjhJsNdRpF7KwQUls DxEpWBDcisMkd5EgOV6tBWS9 ewIxUBLlNnPyj59pwCwpjUvd ss4vKQAlNEZbDUNppfCqGX96 PFTwXM5aNURqMOAlcCTxjT9n biBpcyBlbnRpcmVseSBzdWJt jOT6DARmwG8kS8Xad6P5fZBo QzEuICBccHJvdGVjdHtcZmll hKT5DCelUvcntD5osJUKJAOV AjbKTeuoipRtOI3BGA9DOxDV IO99FcQhPCG6KZpCK9AYfPF4 Clk3NWj8zSgqWaqgjdIjhCBh CpFLfL0JGNkySnflcPE3CIxp VnkuzX3ayJFXWUMAOkxNWmji zzAjWK0BDS5EAZ8AnZLqOIE7 ePA5XQVIZyfuhSX5sSL4yG80 RFXsWQUtvLKmNUtzC393JNVc MYqrFKn8alRjGZSmLrTxZPcv cGFyZFxsdHJwYXJcbGluMFxy sU5tVS8IAZOfyZORAXG4EY1x JMniXPOhL1ZiW4NjpsC0BXNj bvZDYhnqTmvyeHjwv4SsuNEu XHNnIFxcaWQgNTEwMDIgXFxk UiSXFgXfZyRfYDZnUTO8JqV5 MYs7LAZUKaCaHjQfUXPoDjh8 OZBdCUy9LMi2XHjZQjSuWeT3 GXJnZET2ENG5XOm0DXrzwWWb QXrns0OtWsXbWHQqKQfwbtW5 JXDyLMF0CRXkyZIBg2DmCYFw DQpcZnMyMlxiXGZzMjAgRDpc oZLrMU9SOBSflfNkOFolrTmq xR1opIUaV5rsTvirhuVeEJZd YDLeYyQfQGKfP93cq8AXj9Tu BW5QRHb2geWodsrseN4pXXVi twUpz0BdYOynlOxbUIUyEzXa f7BdOHioyTfgITYtQfKjFMxz WtbaKiVzBmBtXJXCpT5duFJh n8FqHUJfKGXoCDFyDFStynYt RdwqWqtmp1VjAjDrG7MbGCfk O61au8pnkIMfp9QnrNupMKQv fhZiLUNrm9awRBj7xCMqUO5m ENLsPjBuRRtuDzVaW46uAdJc VGhlIHNwZWNpbWVuIGlzIGVu lQalLBu8CUH6Ab5udHYtBFBm jgDgAGUeWEW8IQQGUB4nYFhp xa42RWR3x4oqaXUzWOatIncr zFKcoxX3BTbAQCACSOwUNdOr ZX7aBOfTLtlQXHqCGqlwDFJz PsvyxXZEZFG5ZKeegQchvSi9 g5pmkZBzf2a7XJcqVAM0yV6G f6othGAyZOpyXrjhuBZawvV9 LAzKFDZWSBjCDdJqPG9rPOjZ BfxBHnJ6BjRuBAO2SObIR0AN cIA4Hwe1HVk0aUpnZoybkjTm aDGhEnOJjY0dbBditU8buXEg P4uvCyGaLKDCAhicEGMeCMy6 cmMtzoldzX5gOSBimjVmBPrs OZOvW00nd5RLp4Cbj2ovtHae r5HhrWAkKE8rxORhRE8Vh6qz GMQthVHcOYU9YPbtc4peKDwz KFP9TMQhAoPhWKBvGL9XRuWl FJJsHDU3GLznXTk8MIs5HG9J GbMzRGTrCVFtWJt9TnUnEJk6 JIojIP5PPWGiIWFfCQObJNIu GKZbXnvsVAe0BDGuXAgckfUm MAqqAklyOLesA86is6MsCMQn PECgC0raGsRdQBDJFsinenCv XGJcZnMyMCBFOlxwYXIgDQpc cGFyZCANClxwbGFpblxsdHJj aFxiXGZzMjBcYjBcZnMyMlxl cGljTmVzdERvYzEgDQpcbHRy cGFyXGxpbjBccmluMFxzYjMw MNRsyZCUs9NlVFhbTVVaPTVv qUUDh7ImSOQKUqbiQMGtDEke vzSaUOl5cJJiLS7oZNHiejjf GQA0UiCmzvzjSKlvVCvuIH4r DQVyRQRiGGM4BRHmZFEIw14t mUD6dnQwFuW7z98enpKrAAZn v3liSHm4qNKsBJ1lEDFsLTzs OoPsND0hSTJlArZnoIqwGMPS pMJom5JcP2jaIL5ciPSrSL21 dWQabKzgz3HvkJk1jROfNIvy SOIad1OyrENyBFOqBnPnPPCg k7GfB5F8BFYdMEucf4gfRGOa YPmhw6QfTFvCTDNASN4HQO0g fAR2XCpAM9EEM7jKyHRkTJC2 jND2KIGOUljljFC1lGB7aY81 ETUoQFVdfLYdPVlkK486MPw9 WNViWFwpx3zuMUYlWAefc2Qt IUpQYDHLIW5IMC1brHF6GXzL Z1WWDKzqOZUvWlfdfQTSKVV6 GPyuhUozfNn8s6czqBYks5k8 AFbdBJB1iQlhuPWidaistLOq gTqbmwYbBM2FVUZtbgUzeNRg cGFyXGxpbjBccmluMCANClxl nRmoCmTrrJBcMyD9NEKpmDTc SVK9TF0tlGmpHQKiDBz2VFmm YYEhP1KoX9XdRErgBoIzXUhj ABSnCHXkGOjsEIUnA4RSSHXi YHK3OjunAxYiJIb3DIcpG9GF FBNyJAD3JtG8QMJcAoA3PNp6 HAVQIl9zKOTxBpBiMEW4GaB6 FMN2EKUyQHJgDnZaCDOeIRYr VFxjaLNkYL4hbKreYwFeHYkk rIrmYSQyRFO3SC7IXHFvFvNh ZgcttjQaVBH7HSMgqlVEXavd OGDhLD7BYKHoTKibBZf7fiIs XGJcZnMyMFxiMFxmczIyXGVw sWSVDSG7PS8pLBIWBnptrVJo TJQucEsiODfpfI5uTNVgSsYx UJFmV1llWlRmJN5XOQAaX0Js XGZzMjAgTHVuZywgbGVmdCB1 kJYlobEhf9MgQCBwHFX3IAEm uCUvQAbqExNkiU0fbB8gUm1h Uj8rRg2ySz3hLq5tguOtZJcu IsZwZnasDZBcNEBnZK5jSZaa FD41EEryIi6tUXFmXPhtTqXr eHCqMGOaoBLbMqFsg7KpWVbw qKdzKUK6IuNbR52aH8ZouTNl ZXRhbGxpYyBzdGFwbGUgbGlu ZDHfupWmLO21AYDvMWqsXGtr ILNnPNWfPPJdWIAybuUtyQ4w zFFfURFzO5Sdt92ksLUvC6ac LiBUaGUgcGxldXJhbCBzdXJm YWNlIGlzIHBpbmtcdTgyMTEg KAj8NtMbIMU6jDFlRRClFk4i GGuyvEOxl6ApYBTsQKDmSKEi KY2oWAZrXShoMBgpIEX7ODI7 AJBelAGmm6xctpswXFBcdzDA MjruPtTgFPZnG4bxWwDfKIjm qABbGSunQKMlBVkNmELvb4Pb cGxlIGxpbmUgYWxvbmcgcGFy WN3okZqzJAtbdCDiU1adRSbu a2CuMwUHfUTls2VpV5goOO6u rJIcp5FxzVWwrFdvu6UyuQvd qnEwEVDeebAauzUnI8IePMVo yF1lbLkcRS9kabfmmwG3ozBe ZXZlYWwgYSAyLjQgeCAxLjMg wKAlIqBpA73veYYtVDz9IZEt YFEoYoj6C5WbxMboUkirhVqa sBldVROnCdunQKHcdn7oxIoe LDbnlPyyPMKzLOzjNVW3GnNe ZCspOAN4VCokb0nsF3H4TBB8 pgVjQ9Vke1c3mZ02uUGkMB0t zjKqLEnwQN1aAI6dI4Boc0jw PDHnMoPiD57kWcHmhYH0dXMe wdZpffHizXOaESSepvKiiL2g sZKpVDTuF6Yka14pcEOvV8cj PVNzGoCzL54jCtPanHI6tYYs XuGgweOtqBYtLJCpQCU4QNAe yUrruvDxZAQtmF8oAS8jXYT6 uCJvZMspEzR9wnY0pKGeiHYm h8SnSEKbsDlvvPEeHhCJvAXg jKSlclLhlcYme3VjeU04c8n3 WULub8r9aRS1yWCnwDwmrUVo lFBvgLGgECZlZfJtrMGvBJ4P HHSuzoQQPsRrMOS1tqkyuz6d vvTjUHv8pwyjxTQdYF6myTbj PJNoqxOmvk8rt3i1VZPlrmVi AEHfQHJgDG4jEK40sJPfsNes XARnqho8RBPzWWIwWzy7Yjjc Y0kajF2dh0gmvIKjkHjjpAxq vp7sOMVfwGErlfVmTjjcSNKd GZ4qvJ9cPDFgx15gFZ2kVUUz IDAuNiBjbSBpbiBncmVhdGVz iTPrgI0igdDlp01rLIWggyEA IbqjUSRzCMoXBjgsX63QAEzf SytbV5cdyWexKSYspdHzW9d5 qXMjugWtAXR3uY8qVS2taide ukIaeF5uVeC7uQJwf1PqqBgi NSgznjQ1VBQanOJobLbqqKSv XhPrhcAqJ3GhyLwoOLPvGSp7 AqwhrLLsPOMeAQDcRJC0EBAi xrDwi1OdqBLeRrM6rBNaIlJa ipOshUPyVJLpTED6WJVycVrf oeNtVWQnkK8eQUUncwGLAtie QYUuPQWddXTAj3NuDZOKPzUN O6DDB95mL31FTRgoMaVdLYDn f31exZlthJYhKJWkmT3hAEWb KIRuR9B9GWToEHR3AFVkbQqo csWhORXctD7lKXZsZOOcT8B0 DSJlPYKvt8C3tWOtg5w5sHAa HWzlX7YkwHImnDY5zgG9RJN7 DIO3KtJmGCgsFZMIZEpxSA00 xUNzsHtbo9ZhiRy1tEHyZC9k SGHbONSoPB1qwS3zdfwxhp8c dWxlIHdpdGggYWRqYWNlbnQg uUAiUfGtXMYrhhIxmF6pTsDN UEbniLAvOzGdXTAgyiAxsZ2z EKGaitAxAK55PXOgSB5vAOEz MCgsF5jlw8QpiE1vqJqeCD3o roqihyXqKhGabqOzRQ0ssjOv YT7gQZGhDEMxsSXbtUAwyQbw BHfiWoZkGWU4QtCcZFxcDCTD OFQeIGFbzXNkb7CnwMN8pVDd DLYdZ6Zpp42by5WezP3vokWl lJBsTJFrCNUfiiKnfW3nVE7q CQNlPZWfkZ7pSfRPLTGdqObq CKLcYSz4DiBmOrkeEBJlqHAl z609EYcutJ1dSUEmaT5ho1yh hJRpiSpuwDkjjl4kCNP5JSLd PSipLdZan4TwsRBrFHXvmH1c zCTuz5Kyoq1lOAmDNXkyn9Se EFPzvJZTo8CcHS7CCTUteDYG FCW3MR8qOFzlDRXdZ8UvJ3Kk xsA3f5sdwXmkg0DphJEwLD3l lEEvUC7ZSJGsNaSqJUs7 Disclaimer (test code w2hyiIWjOFJqmZViEaJiCYYr = 9844) ZFWbj0ubLXAfnGLwSwAyNqTa OrBqCobirLCnWHWtWbKpn9cd z957gRWco9vyLSVyZpF6qVGy AXHvkLPsH276EUXkZLwka6ym y0YrSANtdHLct8X8BYPSxzpg rRy9kXkeF49lp3X7NzwaW5qc XRDjSOUtH4SuAP2iOAGfOxh5 GNZ7FET9QYYyMFDrP9MoIO7n XZNtnDIyZLs2h9etfLjjSUKr WPA1m5owXQwfduQhVI7cll5a kSr8v6dwgxMhMUJpIBVodSMF JNMxV3PfxWttZc2ayHs5kKhm VfpbIRX7Wjf6AF6dkd64gqe8 nAouKWDbwsyzEwT6TQbpHOQt vuisGSp2CIubKYGguOD1WZXx jRRyD2HdRENoAV5cisz3ROC8 JZalIWSnZdP9UMNrgOXlACOx nNqcQTrpt618STH8TnXtDB0a M9Gtc7J6iB1bcAEsKMRwcBDy UxMrBQOmpw5pbYQiNPigt1Lm EJI8shI9sUXodUGbLRGjLM50 Bcbhw3QzTzwvGFP0EPMoasRu x7Ofi2reKqNecfOgS0dkU9Qs TWXaZZKnXZGqFySsmtZmf8Gf j2BwyIIlaKp2t6mvQKZbJOEm yFoij8ttCTJ6FXLfD0D8lFSh b0jlOEghTKYccZR0pvY5SZRt qVFfQ7EmcM0xDLAfJQ4ecda7 g3ooDRH9AQtwQOEfZwD3dpW6 EBGsuZCdALJohAssSQglx461 QKT0QxJmVPPlv9FeY5JinIfr P14szAivR02xGMDbwAopqC3f mQevcU3tUfFhBkRyIVnuhHbt fLTodcqhRUyidrE9FPcpgbtp WFTdSRfmF5bhOaYgCXRloKif MOsxu8PkXTDiZLYxIfctacA0 SDMUu07hQHJgl6AyPPCzaI6m jDFjOQauklBlyYT0FFevgaWa SjMnrcSpRCZwkH8rVMOoTR8y TSZxbhYpsy8cebIhGGBiOIBe I9SpmhhjwMkqzcJxEJZbbc4c tmUwCQI9PMJGYE8XDGDaMKHz k93tYVYciPqbsH6biZSgbcNb VRRcs3SfyZ0apSUOGRFaO3tk QS9sQUkdw2RwnYAmpIBqxNI2 QEXwa2ZjEzEivhBrxTIndEMx T0TmgHrwU0vfSVSgPLOatbUu wYVzt6DtMMAxkRE0oYOtBG3W LwUPn05kTJUfTPSPmhBtRSPd bHxpnIB4diY5vS1xLmKKMeCk yMLioJAlCukmNAZek437pe0v nqZ7QCOrPKUdmdibx1IqDNIj QLMzdY31UYMmYJStql8rnbnr nHDfzqWjD8Qynbc9nA1gOOTk YWluXGYxXGZzMjJcbGFuZzEw MzNcaGljaFxmMVxkYmNoXGYx BKnjH1bfXxBpSnXaLlffQLJ6 [facility] 2022-05-29 20:55:42 Test Item Value Reference Range Interpretation Comments Submitted Clinical a4rkfRPgCUOxd8dnVQIxoMLd History (test code = ZzEwMzNcZnRuYmpcdWMxIHtc 76446) ooYzXOitc7WbZ5XsGdVuBTsv bnNpXGRlZmxhbmcxMDMzXGZ0 gqDnCLAjNFnsMDTaOCmeHq8m rHXnqAycWoBoFAJna1xywyXQ lieoqOi9q6zoEUSlGyK7bUWi AUqrG4eovaAwgHQeIIYjMSt4 uH30GYGmqX3upHRvMTmewyLp UsT2ZZxyRJXxTaI9ZJUfbFDb GOMmW6ixRFHvWKxoFBJjLLwd lTZpZUZ8fMqki4X9kUWacGLg sWgxIoYfIeLjEpYGz9BbSXj8 bNbzH1TsQHAzYtK6dEAvILNx OFphNXPhMWUpknM0qR01WFze ocS9fTWtm3Tst55qe881wB7f hHZtLLJ6THXdMBSxdVHuVDTn TWH2ZMSxdZZbU1nyGMDcMY4n uurzFFrvMHddIVVjwEG6MHIl uOSkE7IjQKZqAHpdJBQkgqa7 VsLvUg5vtMRuzKmpLZmfo2py t3lbvGFpXpf4TUYoCcYpBvne BRonw6Fsq0hpSHVwdc2vICT2 kMAfqTywa7V2yMCzWMLmnFDu gdPdIXItBsK1YCewBO1zch91 JOZaGQD3ui3tiYNbpCknooTe dOCaIKezR5QiOZKcz628LXRv M1CnNTNob5N0pnTnRjVvZLIg nMN1xzB9QLBvXPr0sTQaocJ5 bhRdcAExV9kfzW8pZBNkUD9k heahr6xsOWexEEcsSJWvbJR8 mnA7TKQhmTPjN0TgcM0xRBEl ZNtqBAOwppx3UsIdJf3rnJOh eTcyMFxzYmtwYWdlXHBnbmNv bnRccGduZGVjXHBsYWluXHBs YWluXGYwXGZzMjRccWxccGxh vW8uWtOxYjEoBNuqJU6pJLCi Q1harFXeMIIiLWWgD6ekIeSs cG2mbBvvTYqfolDxJUEoEZ1q T7RqW3duc42wDAPAB0Ffg8Wa pYBpIJTxeS6kWSklwFIeJwN0 QCPkvF6aW1RuNS2aTu4euXhz qR7iXrMnEaCxTfmtLW5eESUo E3ylbMLuSECsVJBgX3ixQfDr hP6ajTveYJqomwMfTQKsmy31 Diagnosis (test code q3rlbXEyASVtkLZxYWHcQzcv = 34) fbBaDPEmmLMjZ2NetjofPTag TJ9bJA8rfOndpNHrnEYuMSBd UkUtu8mtf699fKGds8ntUZCM aemwqWq3tIxrO22tz0U8Cfip A29huKQnJDE7ZWMvVLOkmTQi BTHlPTK0CEPnpHNkU4ctALZh HX5epnumNPprYKgyOBBzsOJ6 VFBfaSTlO6VtNDLlFAykZGIj gfr9CyKsJs8asWSzhNeiNCiu CAQwCKQbGGacHVAhThUnJO7o FYgxuMxvwt5aXBwlr5NcMD2g sQjiVWC8JtqcAVStsJWgEN6e Y5R4aFWwSMNconT9wU1cjx0w uJTfBEBrabQNDvHWpU7boYIb l6KqSIPaYUV9LDKclAeoehqi MFWUSbiaYTGlqWWoTU2fK9D4 dXBsAOXaiwL3oK1ebs7coMNg FGAkfkVTMsCSyX4vjNPpp7Qh FGArZNF7CHOlhzGzqknyTgVu LCAxMUlccGFyXHRhYiBOZWdh hVr8GBDll7XmxVLfl1AsLRNu hvqnEDKjMS7vKYsqySdogj5e HYebpDGnRJ6cp9A2tFVwQBE0 ZBMtvzu9LPIxTgSnQZItjyKv Oj2lHAZ3eZ3hWecyKSOrpFRh NYYqCHd9nOKbLW5bVDTcWQA6 VlPjjzpnMBcfKTw3MTPhher5 JBRjGgNfUIRxddDfNs3gVYV4 sA4oRuchPUNxcSLxLHFiSAq2 bcvtYKugOsLseWZbVXWcsG6p NWhkcG4bMTZ2t898QekkAURh zZMuXHE9oXSeu4t9HBKnL8Bb gfteOyKoDMQvm9ChMuyoro4u d0jcOBycyz55tqBfN4OeJEN0 kKJuZVJnW7AfUSmaUA60EMRb dTfnkaHkG6Sss74dGE5yYPew EzokzK2zbK8bhSIsxZIeD9Dt LlxwYXJcdGFiIDIuNCBjbSBp biBncmVhdGVzdCBkaWFtZXRl kz4kqVLnRRKmBiGBxuLgOMEi VEKspHW6uMSaeAZfyUJey1Va aTMijQUmylBqPqcnQB8ihEJm KKWnBlYEyr4dM1ytSXwiWY7d VFHzclWeK6e3pZRaZQ3viohz mkWmXLVaPK8jX9T3jPCcLLXf hcD7aN7qrq9gmLGuOHVfJuCE zFgieNNpsO3nhCCbl7FhtiCs otFufuAyHEHbmtKmSx1nPBH4 rF1wQLfkQecuUSUmvvs9SBHi cGFyXHBhcn0= Synoptic Checklist LUNGLUNG: RESECTION - (test code = 9864) All Vpsgeioyr5wd Edition - Protocol posted: 04/27/2021 SPECIMEN Procedure: [...] Category: pT0 pN Category: pN0 Gross Description y1wkjBZpQEDwmGMJMUZiACTm (test code = AU3wgEsfaXk9lJmuAFOrrjI7 [id number]) lRMmLRoyh0lvIUG2o7laghCB GisuROExLK6oLSzoJXHfPT9o ZmUwXGRlZmYxXHBhcGVydzEy FmBaNEYyfYGvfGD5PEBkQR4p ezxgRKamZUvyHWYfwxD0DTQm xRGsW3DiTKIxEK0vpibuYCF5 EIGPUvkpAg2dsTNzaOvmEsEh ZmNoYXJzZXQwXGZuaWwgQXJp FKn1cT4VImnyR86fe4I8Jwu7 LNLcYVFrF8UfSS9xXNRwbSTy D65JQmkqJEM2YZMRXzfqUoiu jJrwl6TmhOYrITSwYEvqsWWs NTEwMDAgXFxkYiBPVlIgIiAx BUCjMXK0KoX4QTe0THMQTOEd UyW8UhM4YDS7WZt9WTZdHS9m ZEeltBXgYQwiLfhuARkpQ260 VOmsEZNvL4VfH4NfSZsmQzUq ANsqXLMpOIUsJQnaKPMvY2BE LXSxYDQ4SuccRsUaTIr2QJpu L0KWJMDzHII7SoH7Ofw5WdY7 PPd2HVFSFk8nVLGjCwH4PGG6 CoX5SLW8KDDeZNDxBlHiACNo YMSpLHazqBPfGT5gcVvaBJZc LD6BIVKkSLeaSIUqYlPrTCFQ OlxwYXIgDQpccGFyZCANClxw iWEkevcaCYVrJsBebGsaiD8c fXLoH4paNoVmRjrwbGsgHdDg dERvYzEgDQpcbHRycGFyXGxp bjBccmluMFxzYTMwXGVwaWNY p6BiHDDKVlvmMEJbLAoaqgLt JBi0pJImYO7gMTJyfoobBVJ7 NiHqelSaIovpVGvak2VsPlQq RBYqCLI7NKRqEZTIy80wkDH8 ytLuRgCtXYLaQB2xou69htYt jU6yoDVqn9JxCZydQdighEQw IsVjeDYnYpZlA76kLaJvGJpk IHNwZWNpbWVuIGlzIGVudGly RWv2OQX1Me7blHBnEJUizwSv UXBcKLQ3XNLXQD6uMIsujq33 KVV7f2ckoGQzSNtiIlfueKBi soB6CUaEFQCTIJgZCwVvSS6m PUxJTktCRUdJTnwyMTAxNnwx jRCZYET4EXgvjRbhdLd4a7ra xKGhy7k5MHvxPTR9uU2Nk7xi qSIjHOayMgifiSVeavZ4NKzX WGIPEGwLOzNnUS0eZXwKUmbW OoH5SzQyIMY5TNzYH3HQjIG2 Tdy7IZn0aFsnRrocgmEoaQGs UaQHsJ6psSejqH1xsUQdZ6db JfXlWPNDKhavSZQePRZmD9sq OYEvXLsjYIIhG41mv7KNt6Es s8frhOlgd3NawVOgSJ4toLDn PU7Fr4kuZCNymEZwOBF1ZZle x9snPPuoNWF2WISiBvBhTFZm YN1RCjObDSPmGXU2GUsyNQh1 BKf6QS8YVhHmXQLxYCDnNNI6 QdYhEIr1TJgmSG1MUCWzNXBi YLOlGUjwMPTvYluzIHl1IOLn OXxprqTgKOnmAccrRSukG60j v0KxCDQlJDWgD3mgZaRhLUQL ClxmczIyXGJcZnMyMCBCOlxw YXIgDQpccGFyZCANClxwbGFp blxsdHJjaFxiXGZzMjBcYjBc ZnMyMlxlcGljTmVzdERvYzEg DQpcbHRycGFyXGxpbjBccmlu RKrqMtNoMCXmdZBYu9BiYTqi ROWeIXMghWNDt2OqOLJQOjxh XGYsHEhfqjPhAUn3aTLaVV4t ZGUocyksIGxlZnQsIGhpbGFy TKRqSWqbQW4zVQYwQSapTcTw LexjBJGxC78rt5htkYXts9Bm JYC7XLkse7bajOAeVOf2dNMu EE9cVMAgAWFdMDKgcFjfMXPH oTMou7SgI0ddXO1yuXHyKS96 nBAukZzly2NugAj2sRAmYBhh IQCcv7GikMQoSLDxDeMcHDCe b9AmW5G4KSUjFSldk6dsSHXy UNcks0AgPIoMLHMOZW2SHG5o gVC5FPgHY4IIT7bMoLYeLQP1 vEM4HIZIEgqnkBF7sDX6xN72 RCZeJZEmwIDwNRvhU411LAd4 JQFiOYqvm6daIWRvDTxbm0Lr BEkYYFIRZQ3XOM4keVT8LQoV Y8ABSQwmCKZuZpivzQNNRBB3 NXwybWoioLe0i8rfbQJdi6o3 HVgxESG7iDibiXUyocgbfYQh kCaiueRjZL9MJGEbxmSzfXVq cGFyXGxpbjBccmluMCANClxl lPxxSfLypFQoAqH3SILyhXTz MWM9HC1lyXqvPJWlWEp7QKua PHCgH5JoV3LuQJovYbXdQOhy HYWvJDLnPWkfEXRbS5WKJTNy XSJ8GsguGpKoWQl7YJcsL3HZ WKOuAPD6WnU8ZeU2PbJ5XSd4 MQNCEz9vWOKqXqU2XQtnOeI5 YJC0PVFxCXFtKoBxJDVgWYKz RLmqqVCsCD6rpGjuIhKdIZcd fBbcDHEnYWQ1IY5XJQGdXrHw EjfmnbRsRGM3XHRlptPNFszi DCNgPT8BNMRmADhuOGm3ldBr XGJcZnMyMFxiMFxmczIyXGVw lCFMDTP3HY9aBWBWQxdjkSWf KSKstAkaHYahoT2wENYfUpOi NYNaI6iuLzZtNJRyAtZiGTJf A2yeKVNmUW0XHKIuV3XmHKAo HuKdUOmcfTeazh8rQFqxEMyg aTDvqWnruK47RNFzl3Uduatm ZNPdNFPmpsDmVlQdE4VpLOmw BqDkYOFblwAmq8IbTB2nJJD5 nmNoQZFbRmFxl08blAglnMqh io6kOEEaOMTuNWNvzrLdCM84 WBBpSN7vABOxEEMwmKJacW5u biBpcyBlbnRpcmVseSBzdWJt fJG8ZMVsuP1fY6Rsf7J6hYQc QzEuICBccHJvdGVjdHtcZmll rYY0HOobQpsgwE2jhYQPQJWL DlnPEzeqeqUyXX1MTH2DTkND HP57BgDvXOA5DKpRD1XAoMA7 Suc4OJj0rJvuUocbneUmdXGx VpSSfZ2NDDhwSlzigCG0JZvz GsqrhQ5iqQPQAHHHEnvBPaoe gdIgHV3NNT8SIB1OwGNmXOW1 fHP7UVONEljljVD1nHD1bP21 WBCwZLXixZFaVCmxL085FLDp GMteGTo6qiReJNVfTyVtPEoa cGFyZFxsdHJwYXJcbGluMFxy yN6uVT6HSWRctVTPOPL5NZ4o RJepPAHkI8SdD0KqkwL8ZQDm wkDMDteoNmsvgAhgs1IaiJVp XHNnIFxcaWQgNTEwMDIgXFxk VnAKGnGxYzRiGBVyOVA6SiP2 CNj5CVGMWhRdWzGzEECwYze4 GDFwEDs6KSk0WSxLLsPzYmJ3 CZCtIAP3QXX1NAy9XQqmpEHh RJmjl6CyKyMmSHMtAOzqhiS4 XKOcIMF2JVBbrMSTe9McSIXd DQpcZnMyMlxiXGZzMjAgRDpc wHYwWD9WUPDokgLfPIjvkPhe oM7rnIDsP3hlBouuqxZgXQIy ZMYcSqOkTUAhD49yh9VUj9Pp BU6RAPh7zrCjsyjggH6iBXWn dyVsv2LaJOsolHgvPQAeLsYu f8HlETfonSraFLOtGlLiFYrs RojpWcYfMeJlCFYChY7qnSOh v0QtGVDkXWGaSIJkXFTbcyVo VghsUtbqy0DbRxKcH6IhMOls P17qv9ftpQTqm3UuxDusWKYe uqYaOERkz3wuWYt7gKFiSJ5h DFZbUbWhSEpaHxNyE72iZdYr VGhlIHNwZWNpbWVuIGlzIGVu aLbaIOb3VPV7Dj0zoVXnBTPi iqWxOFLnKVA5CUKITF4hEVle qn80DRU2q1ccrDMnUOqaAkwt dHHmptM2IJwCYFCAYAlZPjDu CZ2tZYjKIntALDlVUztvIWNx GrxvdGTEQKN8DXpezIfgzNr1 w4xbsCHmt4s6GFfmMBQ8lQ8U i8poyUGmGHxtWyagzVDnyuX6 OIcCAIBRQXlAAeNbMZ9vDUnZ HkhRDsK0CgNtKAI4JGcGJ5PT tDG6Axz4CPs6mSukAfhqftJe lZMaYnLMmV0ngBalsO4sfFEl L8xtGmWzKDAGJszuGLZsZQf8 siNcoewzoU8tHZGafhWiYKvu WGQhB65ft0RRf4Omm5pugDzm l6ZnkZVwXW2foOBiTD5Ef2ox KMFzkEVmDLL4CLgwn4lxPHvx LYJ9YTIdEaEsHLCtGG6QGkWd XEQwBAB8ODuvZIb7MSy9ZW1X MfAuGYGcFKTyAQv2McLoEUm2 DHetZQ9QABTbSINqKUQnPSYi GMGeRegwGGj6BFSvUKcddtLn BPetHwptARrrS57jd0RsTYXu FDAwA3seAkTiEUEGTjvqpvYi XGJcZnMyMCBFOlxwYXIgDQpc cGFyZCANClxwbGFpblxsdHJj aFxiXGZzMjBcYjBcZnMyMlxl cGljTmVzdERvYzEgDQpcbHRy cGFyXGxpbjBccmluMFxzYjMw ELPusGUWb5WfZZqfZBIqGSZh xRTWd9YeHAKKKqhnGALlSHqu ozRaPJt5kACjEC9tXFEbxepg OYG5ZoKnyczuAVrgVGujQB6a TBMpXQMtUFV0NYQgFCVQh41i wQU1wjFaOsC4c43rjvXyALDo b0akGBe3pOAvEO4jOVRsWTfs ScYbKV1xUHPvNoFooUtiITWQ gFXmb9TdH2ukZU7yfJUaGY86 nFTznOlwz5NheZk6jTYbZXfc LKFdk2WgrLUxMFMqGiYrLSFe a2JtX3X1DLErIPfnh7jnUOYa COyct4NjDOkIJGNVMM5WIV8y jMD9UTxEA6IIZ5nPgRHhLQO2 fKU0TBWAWjwmvGE9bVR7hR63 GILqSRMcxYQlJQiyY149LSi5 DRVkLHwaf3inNOQiOYwwb9Uw FPjYQNEQLQ5QJA6ygRB5BFsY S9HYSQewYYXoJvbbgTJFPLK5 BYkmeHtvfOf1m8acqBWxl0a0 YEjuAQS7eCyonHTioobysDUl iOlcxuNxAL8PGRPyggWyqXLp cGFyXGxpbjBccmluMCANClxl nXicZvBgqAYmQiV4JCZkhTMb SFN7ZN7hyZpaPGSiPAa3ACzi AVOwJ1IkR3JsOTibKaAlDBao DBXkAIFvUCrxTFEhJ4UYKMTj ELT7AeghQuVcTQz2AHmaT0NL GAPxZZI7FiH2NNPmHtP9KIb3 HNCGYj3gHJAcQlWnRIB0DfQ6 OQR7OTVgDCAcAnYqTVJoIGNo AZreiWPpOG9bvNuhMsEiZMkd qVawGFNgBNK9LG8EIYLbFpCt KnqysuDqSXJ9VRRdlnIPPjms VEKdZE0LFZEuLEocCKx0fuMb XGJcZnMyMFxiMFxmczIyXGVw uXMZPCU8HH0qXUHLIduogPFc MMYacXgnFHtjqT4sVTGxApXm YZVvK5xyHqGpQY0HCJGyG9Jn XGZzMjAgTHVuZywgbGVmdCB1 aAQqlqTpl0ZzBBJaOOF8DUTt sIXdGAwxBeOmfW4rhL0uPh0u Mw2bXo3rHv1vIk1bdwNbGFcm BcAaViqbRTSvWLKnZX5sYNiz MY95ZUdzBl6sPQInFZbuLhNb cQUoBGIxcCYlLcUiz2AbAQcm jCleFEU3UzFcX28oB4RrmRHb ZXRhbGxpYyBzdGFwbGUgbGlu ICIgneDaWY34RCHtNCwsXWft KKOnQLNfEZRuOFOlnaSasS4p xJMeLYFqF1Flj14tvXJbE5ck LiBUaGUgcGxldXJhbCBzdXJm YWNlIGlzIHBpbmtcdTgyMTEg JSl1IrSxBDW0dOCaQAIyWn8b MEwwgCYeq3IfGZLqGQLnUASh MJ1hQWRcWEdfDPdsUXQ2CYP3 NVJmjYPbv8dhqrnmXWYsklUS AjlbYxDdTWLbO8ioVsRfKEok wWQyIWzlTVCuFRmHhINnc2Mv cGxlIGxpbmUgYWxvbmcgcGFy HH5ymFtdJZbjgCMeC5jsBNdf d5VeCgJLiVPuz1TnD4myNM5z jIErp7EmfWHvoDgpw2GvwLxi afFnAAFlnkEplzXfP2ExEURt uW1zsYpsSF4ovxgipxL5egYp ZXZlYWwgYSAyLjQgeCAxLjMg mUHkEbPzX97kiMAiFPm7IPQl TSGyBoa2J5QobMmlQmjtoDzy pPmiJSGiUcpnFUKpdw7aiZje PEqzmCgcZGNzUOmhJDA8KgXy MCoaDAG5DKhik8gqS0I5DBL3 gzGyG1Fks2d5fB48oERmPL0m pjZfZJolZU0dZQ5vZ2Yjp1nr WCIxAtIgL22wOaFqqHI1tNSm haDaynQgeNHkIREgkiIpaO5p xSKjBKVhR4Slm01bkJIkD5xp KEMoPsHkS16eCgKjrOQ7qKAj HtDngoLgzMBeGAVvGIW9MQTn hFljzfZsPOLhfQ0hEO0eDOD1 yPMxROoqYtI0yxC0jVAzcSFz o1PaUYCijDoasZYbIkVEcLWg hLYrnhFqoqCjl1ZouH23n2b2 XUOee2f8uSJ7iJRxmHuflEHx uJTlfFWnXHWsKeRioZRvJV5H EQUihkPAUzLsHNT1xyupsk6b mzAdMSm9nabifYUwVI0ntUkj EJGndnTlgo5vl0i0MODidjGw QQJiRIHjYA2xUE01xYZdoRux PMDsvip2NOPuMUAkWhb4Jmms R6wkxO9gy6balNSvnRedvGsv jb3vQQWnxLRhuqBlNpptPHIa SA6hyV0jTYBpv73vTP5oKWRx IDAuNiBjbSBpbiBncmVhdGVz xIHrlG0neiBcv59tJOMsqiTM YyltUYOjXVvUIwvwX02QLNhv YplfT2repOiiIKSpihMiP8p1 cFDtieRmMRL2hU2jEO8ttphw bqUqeR7aSyH4nVVac0KwwQpz AHlpiuR1PVZqsDTemSxieOPv JwUwxnTiM7TucKphPAGvNJl0 AdahmFIyECOgJNGqUCM0TJTd esZba3GyuGSnZpE5eDOzIoNq rpJujSToPZKrHEZ2BFFnfJin kdTrSJWaqG8oQBZjjpJMPyww LJXcOKDynFMGy2YoJVJVEyJM U7RIG86rF18JXTuuMrFrZEIv i93pbEemvZGuPQHjdI5aNGPa AWZiO6H6LMExSSX3OAIznKvb tfXuJXZybL1gRICqGYImB6U1 KIFuKRPst1M0sJCgp2k6dXAw QUtfD6VzrQEkyRU1vwK4RMI5 FTJ2IbSbUIkmAOWWKNvgWM81 uEHokDgkm5JpfTj6tNYyEN3v BFNvZXOaLA9bmT1cvxkdlo3q dWxlIHdpdGggYWRqYWNlbnQg iHQlVnChYOOnkoKusT3lNzGF AEasfSPkYiRdEUUjytKvqV1l ZQSimrYlCX77LJUqMP1bNOPa SDkmP6ljm5CpwR5rhVkmSJ6b wvwoqpEzCcJrbfJpMS7xmsLm BV3vDRNwVKIeuYEteIPviRxi SSxqYkFyMCX7AwSfNBcxLTQC MKShASKddOLnt5BnrVH3kGCd QNSuF5Ujy28dp8QixH7fibPl tDRhKFLjJWZuthXpsR8uIJ4h TJFxATObhF6nMhKDOTFnmFcx LQJnHGn9CsNrAvkoOKTjkGAk p270FHrltT0iQZLzmH6oa4dt aROkwPgvlXveei2kPIJ4PERc AZnfScIbi9FwuOYfCWFhnJ5i gECbi6Ecop5fJYtZHRuun1Lr SHRehONVx3JnYP7QBVYafMCU CPG5UQ9uBAveBCBkQ8WfW6Xy zgU3p5mwuEhrv2QyjFNsWJ9b dKOyJT4ZQWHdVpJdUZk9 Disclaimer (test code h8rdiCRxVFSjnXAmAiRfDTTc = 9844) ZGLws4rrERJqzFDiLsVhArVy ZySaRxemjAXmBACuDfYhe6jh r107jHUsq9dvZMHmEmM5yXXq EQAeoJVlA303DOFjGUmoc3nr x9TfUTQzoMFiu1M5ZDHCfjaz gGj8xYmzS58gw0D4IozmV6ve MJHwMLRqH6CnLH1yCVQiDga9 QNL5BMQ5EPSsJYHxO0BaXC2w LBPvjBYpFGp3z6gceCabLPTx MAS8m3rzDVqanfYuEU5nuk9g qOn6i4pmwvOpIRQuPWXwvNQD LTDbJ0PurRmnJn1zbJj7sNua TyfrWNY9Lgm3PM8kps95ygq7 iWadBAEctprlPeE8FMjjVWDc sqknENd5VQkoVHVbiUZ9GEPq aACqT2MdBAWjWB9yduu2QPH3 BZsoJYKiYrW9BEOjiDSuVSYk aStrBFdrj975JNR5OzNsPK8t Z9Xpy1E4sA5weGJrWQAhyOEq RaVlLAXqud2xvTFbGMupx6Vk IZV1fpE7lEVicVLvTMQkDT76 Cuwck0YzCsewMSF8DYCfrbSn j6Fvz1efWbOszrLuJ2sgK4Xp RDUdBWDkKTWpLsHghvQxu6Id i4XbuSJtxNq5e9riOJNyRIVb lRfxa6anHYZ6IKTeH1Q6yGWf m0siZFnyEIQiyFJ4zyU0GBFj oFKrA0CabN9qXPRiAT8ajbj3 i6fsTMU8MHiqBXGbWaN8brW6 ZERciDKwHMRuvJatQWvqd183 CNS3NgPpJGDzq8PwR5XzhQlt Y47jxShrY32bEBYtaSuflP7o eXgbmA5cApNxVrAgIHaviBxz aBQxuckcBPgwwmV6DHiwkfdf PNYhKGlqA3bhQsQlNETxoCwz YHqgj1IoKUXnVEIrLvtnwuQ0 LBGJw15zKWQtq6SpXRSdfL0l sSDyLLgzknFpcKX8JBtwpkYa SdSohrAeIRXeiP3hDXVfWQ2o BUDoflAars9hlsKjCLGuJWLr O9PqgwectXcnbuSpGBMuwl5w kqDuAGH2NFZJIX7YJLFiDYDp v66lBVEurYypyQ2wwELairZd NESpz1BgzZ6afEPHGEObT3hn YQ2aKGaqc9UzzXTgsHOfpTA9 CBCby4CuQaQrfySuzDLloXJk Q6GaxQsoI7fbKKCmTKDgqpUi cZAhb6QrPHGhyGD3mOYgCN2J NoFPq58xCIYtLMHNatZfDUCu aTwhxPG6iuR4bK1rDpZNNzSn yWPatPRmQtcmZJEnf359hb8u kyE5ZGEoUGAeqizut8CqRSGx GQRnkU60SQIjVLUhca6biydl rMGoujCwC4Nvifi6mL6sDJUj YWluXGYxXGZzMjJcbGFuZzEw MzNcaGljaFxmMVxkYmNoXGYx HBqwG7caQdJcMgPwLjrnYSA0 [facility] [id number] 11:24:24 Test Item Value Reference Range Interpretation Comments Magnesium (test code = 04257-6) 2.1 mg/dL 1.6-2.6 [facility] [id number] 11:24:24 Test Item Value Reference Range Interpretation Comments Magnesium (test code = 09713-6) 2.1 mg/dL 1.6-2.6 [facility] Count w/o [id number] 11:13:39 Test Item Value Reference Range Interpretation Comments WBC (test code = 6.3 K/uL 4.0-11.0 6690-2) RBC (test code = 789-8) 2.89 See_Comment L [Au tomated message] The system [employer] generated this result transmitted ref erence range: 4.00 - 5 .50 M/uL. The refer ence range was not u sed to interpret this result as normal/abnor mal. Hgb (test code = 718-7) 9.5 See_Comment L [Au tomated message] The system [employer] generated this result transmitted ref erence range: [...] See_Comment [Automate d message] 786-4) The system [employer] generated this result transmitted ref erence range: 31.0 - 3 6.0 gm/dL. The refe rence range was not u sed to interpret this result as normal/abnor mal. RDW-SD (test code = 67.2 fL 35.1-46.3 H 32572-5) RDW-CV (test code = 18.4 % 12.0-15.5 H 788-0) Platelet count (test 232 K/uL 140-440 code = 777-3) MPV (test code = 9.2 fL 4.0-10.4 05051-9) INRBC (test code = 0.0 % <=0.0 The INRBC (instrument 13747-9) NRBC) value ref lects the enumeration of nucleated red b lood cells contained in a 200uL sampleof whole blood analyzed by the instrument. Thi s value maydiffer from the NRBC value repo rted in a manual differential,wh ich is based on a 100 cell differential. Lab Interpretation Abnormal (test code = 62961-9) [facility] w/o Krxognjambjl4650-24-99 11:13:39 Test Item Value Reference Range Interpretation Comments WBC (test code = 6.3 K/uL 4.0-11.0 6690-2) RBC (test code = 789-8) 2.89 See_Comment L [Au tomated message] The system [employer] generated this result transmitted ref erence range: 4.00 - 5 .50 M/uL. The refer ence range was not u sed to interpret this result as normal/abnor mal. Hgb (test code = 718-7) 9.5 See_Comment L [Au tomated message] The system [employer] generated this result transmitted ref erence range: [...] See_Comment [Automate d message] 786-4) The system [employer] generated this result transmitted ref erence range: 31.0 - 3 6.0 gm/dL. The refe rence range was not u sed to interpret this result as normal/abnor mal. RDW-SD (test code = 67.2 fL 35.1-46.3 H 09411-9) RDW-CV (test code = 18.4 % 12.0-15.5 H 788-0) Platelet count (test 232 K/uL 140-440 code = 777-3) MPV (test code = 9.2 fL 4.0-10.4 46437-6) INRBC (test code = 0.0 % <=0.0 The INRBC (instrument 30662-2) NRBC) value ref lects the enumeration of nucleated red b lood cells contained in a 200uL sampleof whole blood analyzed by the instrument. Thi s value maydiffer from the NRBC value repo rted in a manual differential,wh ich is based on a 100 cell differential. Lab Interpretation Abnormal (test code = 96101-3) [facility] Count w/o Soltwrbpfknj0312-73-16 11:13:39 Test Item Value Reference Range Interpretation Comments WBC (test code = 6.3 K/uL 4.0-11.0 6690-2) RBC (test code = 789-8) 2.89 See_Comment L [Au tomated message] The system [employer] generated this result transmitted ref erence range: 4.00 - 5 .50 M/uL. The refer ence range was not u sed to interpret this result as normal/abnor mal. Hgb (test code = 718-7) 9.5 See_Comment L [Au tomated message] The system [employer] generated this result transmitted ref erence range: [...] See_Comment [Automate d message] 786-4) The system [employer] generated this result transmitted ref erence range: 31.0 - 3 6.0 gm/dL. The refe rence range was not u sed to interpret this result as normal/abnor mal. RDW-SD (test code = 67.2 fL 35.1-46.3 H 04876-7) RDW-CV (test code = 18.4 % 12.0-15.5 H 788-0) Platelet count (test 232 K/uL 140-440 code = 777-3) MPV (test code = 9.2 fL 4.0-10.4 91619-8) INRBC (test code = 0.0 % <=0.0 The INRBC (instrument 49035-0) NRBC) value ref lects the enumeration of nucleated red b lood cells contained in a 200uL sampleof whole blood analyzed by the instrument. Thi s value maydiffer from the NRBC value repo rted in a manual differential,wh ich is based on a 100 cell differential. Lab Interpretation Abnormal (test code = 24690-6) [facility] [id number] 12:40:00 Test Item Value Reference Range Interpretation Comments Anion Gap (test code 10 See_Comment [Autom ated message] The = 59239-7) system which ge nerated this result transmit mariah reference range : 4 - 14 mEq/L. The refe rence range was not used to interpret this result as normal/abnormal . [facility] [id number] 12:40:00 Test Item Value Reference Range Interpretation Comments Anion Gap (test code 10 See_Comment [Autom ated message] The = 08322-8) system which ge nerated this result transmit mariah reference range : 4 - 14 mEq/L. The refe rence range was not used to interpret this result as normal/abnormal . [facility] [id number] 12:40:00 Test Item Value Reference Range Interpretation Comments Anion Gap (test code 10 See_Comment [Autom ated message] The = 30513-2) system which ge nerated this result transmit mariah reference range : 4 - 14 mEq/L. The refe rence range was not used to interpret this result as normal/abnormal . [facility] [id number] 12:39:59 Test Item Value Reference Range Interpretation Comments Chloride (test code = 105 See_Comment [Auto mated message] The ) system which ge nerated this result tra nsmitted reference range : 98 - 107 mEq/L. The refe rence range was not u sed to interpret this result as normal/abnormal . [facility] [id number] 12:39:59 Test Item Value Reference Range Interpretation Comments Chloride (test code = 105 See_Comment [Auto mated message] The ) system which ge nerated this result tra nsmitted reference range : 98 - 107 mEq/L. The refe rence range was not u sed to interpret this result as normal/abnormal . [facility] [id number] 12:39:59 Test Item Value Reference Range Interpretation Comments Chloride (test code = 105 See_Comment [Auto mated message] The ) system which ge nerated this result tra nsmitted reference range : 98 - 107 mEq/L. The refe rence range was not u sed to interpret this result as normal/abnormal . [facility] Dcoii5628-31-76 12:39:57 Test Item Value Reference Range Interpretation Comments Potassium Lvl (test 4.3 See_Comment [Automa mariah message] The code = 2823-3) system which generated this result tra nsmitted reference range : 3.5 - 5.1 mEq/L. The reference range was not u sed to interpret this result as normal/abnormal . [facility] Icdgo2244-83-48 12:39:57 Test Item Value Reference Range Interpretation Comments Potassium Lvl (test 4.3 See_Comment [Automa mariah message] The code = 2823-3) system which generated this result tra nsmitted reference range : 3.5 - 5.1 mEq/L. The reference range was not u sed to interpret this result as normal/abnormal . [facility] [id number] 12:39:57 Test Item Value Reference Range Interpretation Comments Potassium Lvl (test 4.3 See_Comment [Automa mariah message] The code = 2823-3) system which generated this result tra nsmitted reference range : 3.5 - 5.1 mEq/L. The reference range was not u sed to interpret this result as normal/abnormal . [facility] CampusGl[facility], [id number] 12:39:56 Test Item Value Reference Range Interpretation Comments Glucose Random (test 116 mg/dL 70-199 Effecti ve 01/12/16, the code = 2345-7) glucose refer ence intervals have been updated based o n [place] [employer] luis delines (Standards of M edical Care in Diabete s 2016. Diabetes Care 2 016; 39: S13-S22).Fastin g blood glucose:Normal: 70-99 mg/dLImpaired f asting glucose (increa sed risk for diabetes or pre-diabetes): 100-125 mg/dLDiabetes m ellitus: >/=126 mg/dL Ra ndom blood glucose:N ormal: 70-199 mg/dLNot e: Random glucose >100 mg /dL is associated with increased risk for diabetes [facility], [id number] 12:39:56 Test Item Value Reference Range Interpretation Comments Glucose Random (test 116 mg/dL 70-199 Effecti ve 01/12/16, the code = 2345-7) glucose refer ence intervals have been updated based o n [place] [employer] l[employer] [place] (Standards of M edical Care in Diabete s 2016. Diabetes Care 2 016; 39: S13-S22).Fastin g blood glucose:Normal: 70-99 mg/dLImpaired f asting glucose (increa sed risk for diabetes or pre-diabetes): 100-125 mg/dLDiabetes m ellitus: >/=126 mg/dL Ra ndom blood glucose:N ormal: 70-199 mg/dLNot e: Random glucose >100 mg /dL is associated with increased risk for diabetes [facility]Gl[facility], [id number] 12:39:56 Test Item Value Reference Range Interpretation Comments Glucose Random (test 116 mg/dL 70-199 Effecti ve 01/12/16, the code = 2345-7) glucose refer ence intervals have been updated based o n [place] [employer] (Standards of M edical Care in Diabete s 2016. Diabetes Care 2 016; 39: S13-S22).Fastin g blood glucose:Normal: 70-99 mg/dLImpaired f asting glucose (increa sed risk for diabetes or pre-diabetes): 100-125 mg/dLDiabetes m ellitus: >/=126 mg/dL Ra ndom blood glucose:N ormal: 70-199 mg/dLNot e: Random glucose >100 mg /dL is associated with increased risk for diabetes [facility] [id number] 12:39:54 Test Item Value Reference Range Interpretation Comments Sodium Lvl (test code 140 See_Comment [Auto mated message] The = 2951-2) system which ge nerated this result tra nsmitted reference range : 136 - 145 mEq/L. The refe rence range was not used to interpret this result as normal/abnormal . [facility] [id number] 12:39:54 Test Item Value Reference Range Interpretation Comments Sodium Lvl (test code 140 See_Comment [Auto mated message] The = 2951-2) system which ge nerated this result tra nsmitted reference range : 136 - 145 mEq/L. The refe rence range was not used to interpret this result as normal/abnormal . [facility] [id number] 12:39:54 Test Item Value Reference Range Interpretation Comments Sodium Lvl (test code 140 See_Comment [Auto mated message] The = 2951-2) system which ge nerated this result tra nsmitted reference range : 136 - 145 mEq/L. The refe rence range was not used to interpret this result as normal/abnormal . [facility] CampusPhosphorus [id number] 12:39:53 Test Item Value Reference Range Interpretation Comments Phosphorus (test code = 2777-1) 3.4 mg/dL 2.5-4.5 [facility] CampusPhosphorus [id number] 12:39:53 Test Item Value Reference Range Interpretation Comments Phosphorus (test code = 2777-1) 3.4 mg/dL 2.5-4.5 [facility] CampusCarbon Dioxide [id number] 12:39:49 Test Item Value Reference Range Interpretation Comments CO2 (test code = 25 See_Comment [Automated message] The 2028-02) system which ge nerated this result transmit mariah reference range : 22 - 29 mEq/L. The refe rence range was not used to interpret this result as normal/abnormal . [facility] CampusCarbon Dioxide [id number] 12:39:49 Test Item Value Reference Range Interpretation Comments CO2 (test code = 25 See_Comment [Automated message] The 2028-02) system which ge nerated this result transmit mariah reference range : 22 - 29 mEq/L. The refe rence range was not used to interpret this result as normal/abnormal . [facility] CampusCarbon Dioxide [id number] 12:39:49 Test Item Value Reference Range Interpretation Comments CO2 (test code = 25 See_Comment [Automated message] The 2028-02) system which ge nerated this result transmit mariah reference range : 22 - 29 mEq/L. The refe rence range was not used to interpret this result as normal/abnormal . [facility] CampusCalcium Ionized, [id number] 12:00:22 Test Item Value Reference Range Interpretation Comments V Ion Ca (test code = 96370-2) 1.22 mmol/L 1.15-1.29 [facility] CampusCalcium Ionized, [id number] 12:00:22 Test Item Value Reference Range Interpretation Comments V Ion Ca (test code = 08614-8) 1.22 mmol/L 1.15-1.29 [facility] CampusCalcium Ionized, [id number] 12:00:22 Test Item Value Reference Range Interpretation Comments V Ion Ca (test code = 91222-3) 1.22 mmol/L 1.15-1.29 [facility] CampusCOVID-19 (SARS-CoV-2) PCR- Asymptomatic [id number] 03:15:52 Test Item Value Reference Range Interpretation Comments COVID19 (SARS Not Detected Not Detected CoV-2) Result (test code = ____[place] a 59590-2) qualitative reverse-transcr iptase polymerase heather n reaction [...] patients provid ed by the manufacture r ([employer]) c an be reviewed at:https://www. fda.go v/media/652688/ downlo ad. A fact shee t for Health Care pro viders is provided by the lumber sorter machine ([employer]) and can be reviewed at: https://www.fda .gov/m edia/139207/bart nload Results must be interpreted wit hin [...] were verified by the Microbiology Laboratory at [facility], CLIA Accreditation # : [id number] and CAP Accreditation # : [id number]. COVID19 SARS RENTAL COUNTER CLERK Swab Source (test code = 19644) COVID19 SARS Pre-OR Procedure Indication (test code = 30260) [facility] CampusCOVID-19 (SARS-CoV-2) PCR- Asymptomatic [id number] 03:15:52 Test Item Value Reference Range Interpretation Comments COVID19 (SARS Not Detected Not Detected CoV-2) Result (test code = ____This test i s a 70539-4) qualitative reverse-transcr iptase polymerase heather n reaction [...] patients provid ed by the manufacture r ([employer]) c an be reviewed at:https://www. fda.go v/media/691115/ downlo ad. A fact shee t for Health Care pro viders is provided by the lumber sorter machine ([employer]) and can be reviewed at: https://www.fda .gov/m edia/739815/bart nload Results must be interpreted wit hin [...] were verified by the Microbiology Laboratory at [facility], CLIA Accreditation # : [id number] and CAP Accreditation # : [id number]. COVID19 SARS RENTAL COUNTER CLERK Swab Source (test code = 91595) COVID19 SARS Pre-OR Procedure Indication (test code = 86138) [facility]COVID-19 (SARS-CoV-2) PCR- Asymptomatic [id number] 03:15:52 Test Item Value Reference Range Interpretation Comments COVID19 (SARS Not Detected Not Detected CoV-2) Result (test code = ____This test i s a 98929-3) qualitative reverse-transcr iptase polymerase heather n reaction [...] patients provid ed by the manufacture r ([employer]) c an be reviewed at:https://www. fda.go v/media/040875/ downlo ad. A fact shee t for Health Care pro viders is provided by the lumber sorter machine ([employer]) and can be reviewed at: https://www.fda .gov/m edia/824023/bart nload Results must be interpreted wit hin [...] were verified by the Microbiology Laboratory at [facility], CLIA Accreditation # : [id number] and CAP Accreditation # : [id number]. COVID19 SARS RENTAL COUNTER CLERK Swab Source (test code = 91268) COVID19 SARS Pre-OR Procedure Indication (test code = 15886) [facility] CampusFree [id number] 17:03:31 Test Item Value Reference Range Interpretation Comments T4 Free (test code = 3024-7) 1.04 ng/dL 0.93-1.70 [facility] CampusTSH2022-10-24 17:03:17 Test Item Value Reference Range Interpretation Comments TSH (test code = 1.96 See_Comment [Automated message] The 28305-5) system which ge nerated this result transmit mariah reference range : 0.27 - 4.20 mcunit/mL. The reference range was not used to interpr et this result as keiko l/abnormal. [facility] CampusFree [id number] 14:24:54 Test Item Value Reference Range Interpretation Comments T4 Free (test code = 3024-7) 1.10 ng/dL 0.93-1.70 [facility] CampusTSH2022-09-12 14:24:50 Test Item Value Reference Range Interpretation Comments TSH (test code = 1.56 See_Comment [Automated message] The 26095-4) system which ge nerated this result transmit mariah reference range : 0.27 - 4.20 mcunit/mL. The reference range was not used to interpr et this result as keiko l/abnormal. [facility] CampusFractionated [id number] 14:23:40 Test Item Value Reference Range Interpretation [...] above 28 g/L. [Automated message] The system [employer] generated this result transmitted ref erence range: [...] par ameters are outside rep ortable range [facility] CampusGlomerular Filtration Rate 2022-02-27 14:23:38 Test Item Value Reference Range Interpretation Comments eGFR-AA (test code = 51 See_Comment L Normal eGFR: >= 60 91829-5) mL/min/1.73 m2N ote: The eGFR is mariya [...] failure <15 [Automated mess age] The system [employer] generated this result transmitted ref erence range: >=60 mL/min/1.73 sq. m. The reference range was not used to int erpret this result as normal/abnormal . eGFR-DANIEL (test code = 44 See_Comment L Normal eGFR: >= 60 92359-2) mL/min/1.73 m2N ote: The eGFR is mariya [...] failure <15 [Automated mess age] The system [employer] generated this result transmitted ref erence range: >=60 mL/min/1.73 sq. m. The reference range was not used to int erpret this result as normal/abnormal . Lab Interpretation Abnormal (test code = 80880-8) [facility] CampusMagnesium [id number] 14:23:36 Test Item Value Reference Range Interpretation Comments Magnesium (test code = 02952-7) 2.4 mg/dL 1.6-2.6 [facility] CampusTotal [id number] 14:23:35 Test Item Value Reference Range Interpretation Comments Total Protein (test code = 2885-2) 7.5 g/dL 6.4-8.3 [facility] CampusAlkaline [id number] 14:23:34 Test Item Value Reference Range Interpretation Comments Alk Phos (test code = 6768-6) 91 U/L 35-104 [facility] CampusPhosphorus [id number] 14:23:33 Test Item Value Reference Range Interpretation Comments Phosphorus (test code = 2777-1) 3.6 mg/dL 2.5-4.5 [facility] CampusAlbumin [id number] 14:23:32 Test Item Value Reference Range Interpretation Comments Albumin Lvl (test code 4.6 See_Comment [Aut omated message] The = 2226) system which ge nerated this result tra nsmitted reference range : 3.5 - 5.2 gm/dL. The refe rence range was not used to interpret this result as normal/abnormal . [facility] CampusCalcium [id number] 14:23:31 Test Item Value Reference Range Interpretation Comments Calcium Lvl (test code = 47956-2) 10.9 mg/dL 8.4-10.2 H Lab Interpretation (test code = Abnormal 68517-7) [facility] CampusAspartate Aminotransferase 2022-02-27 14:23:30 Test Item Value Reference Range Interpretation Comments AST (test code = 22 U/L See_Comment [Automated message] The 1920-01) system which ge nerated this result transmit mariah reference range : <=32. The reference range was not used to interpr et this result as keiko l/abnormal. [facility] CampusALT2022-09-12 14:23:29 Test Item Value Reference Range Interpretation Comments ALT (test code = 13 U/L See_Comment [Automated message] The 1741-11) system which ge nerated this result transmit mariah reference range : <=33. The reference range was not used to interpr et this result as keiko l/abnormal. [facility] CampusElectrolyte [id number] 14:23:28 Test Item Value Reference Range Interpretation [...] See_Comment [Automated message] The 2028-02) system which [employer] nerated this result tra nsmitted reference range : 22 - 29 mEq/L. The refe rence range was not u sed to interpret this result as normal/abnormal . Anion Gap (test code = 6 See_Comment [Aut omated message] The ) system which [employer] nerated this result tra nsmitted reference range : 4 - 14 mEq/L. The refe rence range was not u sed to interpret this result as normal/abnormal . [facility] CampusBUN2022-09-12 14:23:27 Test Item Value Reference Range Interpretation Comments BUN (test code = 3094-0) 22 mg/dL 6- [facility].Serum [id number] 14:23:26 Test Item Value Reference Range Interpretation Comments Creatinine (test code = 2160-0) 1.19 mg/dL 0.51-0.95 H Lab Interpretation (test code = Abnormal 09667-0) [facility] CampusGlucose [id number] 14:23:25 Test Item Value Reference Range Interpretation [...] diabetes Lab Interpretation (test Abnormal code = 82888-0) [facility] CampusDifferential2022-09-12 13:46:29 Test Item Value Reference Range Interpretation [...] % 0.0-0.4 H IGRE % c ount 19710-9) includes Metamyelocytes, Myelocytes, and Promyelocytes. Neutrophil Abs (test code 7.17 K/uL 1.70-7.30 = 751-8) Lymphocyte Abs (test code 1.52 K/uL 1.00-4.80 = 731-0) Monocyte Abs (test code = 0.67 K/uL 0.08-0.70 742-7) Eosinophil Abs (test code 0.20 K/uL 0.04-0.40 = 711-2) Basophil Abs (test code = 0.06 K/uL 0.00-0.10 704-7) IG Abs (test code = 0.05 K/uL 0.00-0.04 H 28527-2) Lab Interpretation (test Abnormal code = 01758-7) [facility].[id number] 13:46:23 Test Item Value Reference Range Interpretation Comments WBC (test code = 9.7 K/uL 4.0-11.0 6690-2) RBC (test code = 789-8) 4.28 See_Comment [Au tomated message] The system [employer] generated this result transmitted ref erence range: 4.00 - 5 .50 M/uL. The refer ence range was not u sed to interpret this result as normal/abnor mal. Hgb (test code = 718-7) 12.9 See_Comment [Au tomated message] The system [employer] generated this result transmitted ref erence range: 12.0 - 1 6.0 gm/dL. The refe rence range was not u sed to interpret this result as normal/abnor mal. Hct (test code = 40.7 % 37.0-47.0 4544-3) MCV (test code = 787-2) 95 fL 82-98 MCH (test code = 785-6) 30.1 pg 27.0-31.0 MCHC (test code = 31.7 See_Comment [Automate d message] 786-4) The system [employer] generated this result transmitted ref erence range: 31.0 - 3 6.0 gm/dL. The refe rence range was not u sed to interpret this result as normal/abnor mal. RDW-SD (test code = 49.7 fL 35.1-46.3 H 19066-1) RDW-CV (test code = 14.3 % 12.0-15.5 788-0) Platelet count (test 273 K/uL 140-440 code = 777-3) MPV (test code = 8.9 fL 4.0-10.4 16419-6) INRBC (test code = 0.0 % See_Comment The INRBC (instrument 12301-9) NRBC) value ref lects the enumeration of nucleated red b lood cells contained in a 200uL sampleof whole blood analyzed by the instrument. Thi s value maydiffer from the NRBC value repo rted in a manual differential,wh ich is based on a 100 cell differential. [Automated mess age] The system [employer] generated this result transmitted ref erence range: <=0.0. T reference range was not used to int erpret this result as normal/abnormal . Lab Interpretation Abnormal (test code = 51656-9) [facility] CenterCOVID-19 (SARS-CoV-2) PCR- Asymptomatic [id number] 07:32:38 Test Item Value Reference Range Interpretation Comments COVID19 (SARS Not Detected Not Detected CoV-2) Result (test code = ____[place] a 29804-1) qualitative reverse-transcr iptase polymerase heather n reaction (RT-PC R) developed for t [employer] MARCUS 680 0 system and inte nded [...] patients provid ed by the manufacture r ([employer]) c an be reviewed at:https://www. fda.go v/media/967005/ miguello ad. A fact shee t for Health Care pro viders is provided by the lumber sorter machine ([employer]) and can be reviewed at: https://www.fda .gov/m edia/559826/bart nload Results must be interpreted wit hin [...] were verified by the Microbiology Laboratory at [facility], CLIA Accreditation # : [id number] and CAP Accreditation # : [id number]. COVID19 SARS RENTAL COUNTER CLERK Swab Source (test code = 18425) COVID19 SARS Pre-Out of [place] Indication (test Procedure code = 95140) [facility] CampusCOVID-19 (SARS-CoV-2) PCR- Asymptomatic [id number] 07:32:38 Test Item Value Reference Range Interpretation Comments COVID19 (SARS Not Detected Not Detected CoV-2) Result (test code = ____This test i s a 43827-8) qualitative reverse-transcr iptase polymerase heather n reaction [...] patients provid ed by the manufacture r ([employer]) c an be reviewed at:https://www. fda.go v/media/836799/ downlo ad. A fact shee t for Health Care pro viders is provided by the lumber sorter machine ([employer]) and can be reviewed at: https://www.fda .gov/m edia/580705/bart nload Results must be interpreted wit hin [...] were verified by the Microbiology Laboratory at [facility], CLIA Accreditation # : [id number] and CAP Accreditation # : [id number]. COVID19 SARS RENTAL COUNTER CLERK Swab Source (test code = 13698) COVID19 SARS Pre-Out of [place] Indication (test Procedure code = 99477) [facility] CampusHepatitis C Virus Antibody 2022-02-03 20:00:50 Test Item [...] cons ideration when interpreti ng the results. [facility] CampusHepatitis C Virus Antibody 2022-02-03 20:00:50 Test Item [...] cons ideration when interpreti ng the results. [facility] CampusHepatitis B Surface [id number] 20:00:32 Test Item Value Reference Range Interpretation Comments HBsAg. (test code = 5747) Non Reactive Non Reactive [facility] CampusHepatitis B Surface [id number] 20:00:32 Test Item Value Reference Range Interpretation Comments HBsAg. (test code = 5747) Non Reactive Non Reactive [facility] CampusLDH2022-08-19 19:24:59 Test Item Value Reference Range Interpretation Comments LDH (test code = 190 U/L 135-214 Results gre ater than 1651 88469-6) U/L may not be reliable due to matrix effec t with extended diluti on as it exceeds the man ufacturer's recommended carty it. Caution should be exerc ised when interpreting chester ch values and done in con junction with clinical c ontext. [facility] CampusLDH2022-08-19 19:24:59 Test Item Value Reference Range Interpretation Comments LDH (test code = 190 U/L 135-214 Results gre ater than 1651 54843-0) U/L may not be reliable due to matrix effec t with extended diluti on as it exceeds the man ufacturer's recommended carty it. Caution should be exerc ised when interpreting chester ch values and done in con junction with clinical c ontext. [facility] CampusLDH2022-08-19 19:24:59 Test Item Value Reference Range Interpretation Comments LDH (test code = 190 U/L 135-214 Results gre ater than 1651 17810-2) U/L may not be reliable due to matrix effec t with extended diluti on as it exceeds the man ufacturer's recommended carty it. Caution should be exerc ised when interpreting chester ch values and done in con junction with clinical c ontext. [facility] CampusLDH2022-08-19 19:24:59 Test Item Value Reference Range Interpretation Comments LDH (test code = 190 U/L 135-214 Results gre ater than 1651 40775-0) U/L may not be reliable due to matrix effec t with extended diluti on as it exceeds the man ufacturer's recommended carty it. Caution should be exerc ised when interpreting chester ch values and done in con junction with clinical c ontext. [facility] CampusGGT2022-08-19 19:24:45 Test Item Value Reference Range Interpretation Comments GGT (test code = 2324-2) 19 U/L 5-36 [facility] CampusGGT2022-08-19 19:24:45 Test Item Value Reference Range Interpretation Comments GGT (test code = 2324-2) 19 U/L 5-36 [facility] CampusCortisol, [id number] 19:24:14 Test Item Value Reference Range Interpretation [...] - 11.9) [Automa mariah message] The system [employer] generated this result tra nsmitted reference range : 4.80 - 19.50 mcg/dL. T he reference range was not u sed to interpret this result as normal/abnormal . [facility] CampusCortisol, [id number] 19:24:14 Test Item Value Reference Range Interpretation [...] (4.8 - 19.5)Afternoon (4-8pm) (2.5 - 11.9) [BBC Easy message] The system [employer] generated this result tra nsmitted reference range : 4.80 - 19.50 mcg/dL. T he reference range was not u sed to interpret this result as normal/abnormal . [facility] CampusCortisol, [id number] 19:24:14 Test Item Value Reference Range Interpretation [...] interpr et this result as keiko l/abnormal. [facility] CampusCortisol, [id number] 19:24:14 Test Item Value Reference Range Interpretation [...] interpr et this result as keiko l/abnormal. [facility] CampusUrinalysis with Microscopic 2022-02-03 19:16:18 Test Item Value Reference Interpretation Comments Range UA WBC (test code = 8 See_Comment H [Automa mariah 57145-1) message] The system which generated this result transmitted reference range : 0 - 2 /HPF. The reference range was not used to interpret this result as normal/abnormal . UA RBC (test code = 1 See_Comment [Automa mariah 23503-8) message] The system which generated this result transmitted reference range : 0 - 2 /HPF. The reference range was not used to interpret this result as normal/abnormal . UA Mucous (test code NOT SEEN Not Seen-Trace = 38521-1) /HPF UA Bacteria (test NOT SEEN NOT SEEN /HPF code = 11144-7) UA Squam Epi (test OCC None-Occasiona code = 39173-2) l /HPF RHIANNA (test code = Some reporting RHIANNA) parameters within the Urinalysis test have changed due to the implementation of new instrumentation in the [facility] [place], allowing greater sensitivity of measurement. Urinalysis results reported by the [facility] using existing instrumentation, as well as Urinalysis testing performed manually or by backup methodology at the [facility] will remain relatively unchanged. New reporting parameters and units will now be reported for all [facility]. Lab Interpretation Abnormal (test code = 53842-2) [facility] CampusUrinalysis with Microscopic 2022-02-03 19:16:18 Test Item Value Reference Interpretation Comments Range UA WBC (test code = 8 See_Comment H [Automa mariah 84736-1) message] The system which generated this result transmitted reference range : 0 - 2 /HPF. The reference range was not used to interpret this result as normal/abnormal . UA RBC (test code = 1 See_Comment [Automa mariah 15923-5) message] The system which generated this result transmitted reference range : 0 - 2 /HPF. The reference range was not used to interpret this result as normal/abnormal . UA Mucous (test code NOT SEEN Not Seen-Trace = 66491-2) /HPF UA Bacteria (test NOT SEEN NOT SEEN /HPF code = 12824-0) UA Squam Epi (test OCC None-Occasiona code = 47891-7) l /HPF RHIANNA (test code = Some reporting RHIANNA) parameters within the Urinalysis test have changed due to the implementation of new instrumentation in the [facility], allowing greater sensitivity of measurement. Urinalysis results reported by the [facility] using existing instrumentation, as well as Urinalysis testing performed manually or by backup methodology at the [facility] will remain relatively unchanged. New reporting parameters and units will now be reported for all [facility]. Lab Interpretation Abnormal (test code = 44459-7) [facility] 2022-02-03 19:16:18 Test Item Value Reference Interpretation Comments Range UA WBC (test code = 8 See_Comment H [Automa mariah 08918-0) message] The system which generated this result transmitted reference range : 0 - 2 /HPF. The reference range was not used to interpret this result as normal/abnormal . UA RBC (test code = 1 See_Comment [Automa mariah 65231-0) message] The system which generated this result transmitted reference range : 0 - 2 /HPF. The reference range was not used to interpret this result as normal/abnormal . UA Mucous (test code NOT SEEN Not Seen-Trace = 12223-3) /HPF UA Bacteria (test NOT SEEN NOT SEEN /HPF code = 15171-5) UA Squam Epi (test OCC None-Occasiona code = 03800-2) l /HPF RHIANNA (test code = Some reporting RHIANNA) parameters within the Urinalysis test have changed due to the implementation of new instrumentation in the [facility] [place], allowing greater sensitivity of measurement. Urinalysis results reported by the [facility] using existing instrumentation, as well as Urinalysis testing performed manually or by backup methodology at the [facility] will remain relatively unchanged. New reporting parameters and units will now be reported for all [facility]. Lab Interpretation Abnormal (test code = 44812-3) [facility] 2022-02-03 19:16:18 Test Item Value Reference Interpretation Comments Range UA WBC (test code = 8 See_Comment H [Automa mariah 58308-8) message] The system which generated this result transmitted reference range : 0 - 2 /HPF. The reference range was not used to interpret this result as normal/abnormal . UA RBC (test code = 1 See_Comment [Automa mariah 97909-9) message] The system which generated this result transmitted reference range : 0 - 2 /HPF. The reference range was not used to interpret this result as normal/abnormal . UA Mucous (test code NOT SEEN Not Seen-Trace = 05210-8) /HPF UA Bacteria (test NOT SEEN NOT SEEN /HPF code = 36985-9) UA Squam Epi (test OCC None-Occasiona code = 23879-7) l /HPF RHIANNA (test code = Some reporting RHIANNA) parameters within the Urinalysis test have changed due to the implementation of new instrumentation in the [facility] [place], allowing greater sensitivity of measurement. Urinalysis results reported by the [facility] using existing instrumentation, as well as Urinalysis testing performed manually or by backup methodology at the [facility] will remain relatively unchanged. New reporting parameters and units will now be reported for all campuses. Lab Interpretation Abnormal (test code = 89605-6) [facility] [id number] 19:13:05 Test Item Value Reference Range Interpretation Comments Lipase Lvl (test code = 3040-3) 56 U/L 13-60 [facility]Lip[facility] [id number] 19:13:05 Test Item Value Reference Range Interpretation Comments Lipase Lvl (test code = 3040-3) 56 U/L 60 [facility] [id number] 19:13:05 Test Item Value Reference Range Interpretation Comments Lipase Lvl (test code = 3040-3) 56 U/L 60 [facility] [id number] 19:13:05 Test Item Value Reference Range Interpretation Comments Lipase Lvl (test code = 3040-3) 56 U/L 1360 [facility]Amylase [id number] 19:13:04 Test Item Value Reference Range Interpretation Comments Amylase Lvl (test code = 1798-8) 102 U/L 28-100 H Lab Interpretation (test code = Abnormal 13279-4) [facility] [id number] 19:13:04 Test Item Value Reference Range Interpretation Comments Amylase Lvl (test code = 1798-8) 102 U/L 28-100 H Lab Interpretation (test code = Abnormal 90481-2) [facility] [id number] 19:13:04 Test Item Value Reference Range Interpretation Comments Amylase Lvl (test code = 1798-8) 102 U/L 28-100 H Lab Interpretation (test code = Abnormal 17247-7) [facility]Am[facility] [id number] 19:13:04 Test Item Value Reference Range Interpretation Comments Amylase Lvl (test code = 1798-8) 102 U/L 28-100 H Lab Interpretation (test code = Abnormal 94912-2) [facility] w/Microscopic if [id number] 19:08:15 Test Item Value Reference Range Interpretation Comments UA Color (test code = 01415-5) Straw Straw-Yellow UA Appear (test code = [...] A Lab Interpretation (test code = Abnormal 41245-9) [facility]/Microscopic if [id number] 19:08:15 Test Item Value Reference Range Interpretation Comments UA Color (test code = 37022-7) Straw Straw-Yellow UA Appear (test code = [...] A Lab Interpretation (test code = Abnormal 42565-7) [facility] w/Microscopic if Rdzdpqovg8960-90-65 19:08:15 Test Item Value Reference Range Interpretation Comments UA Color (test code = 72951-7) Straw Straw-Yellow UA Appear (test code = [...] A Lab Interpretation (test code = Abnormal 45501-7) [facility] w/Microscopic if Nbfcgwqva8046-46-13 19:08:15 Test Item Value Reference Range Interpretation Comments UA Color (test code = 06791-4) Straw Straw-Yellow UA Appear (test code = [...] A Lab Interpretation (test code = Abnormal 20961-7) [facility] CampusaPTT2022-08-19 19:00:12 Test Item Value Reference Range Interpretation Comments aPTT (test code = 36.6 See_Comment H [Automate d 99219-5) message] The system which generated this result transmitted reference range : 22.8 - 34.2 second(s). The reference range was not used to interpret this result as normal/abnormal . RHIANNA (test code = RHIANNA) This lab cannot be scheduled at the following locations due to collection/procc essing restrictions: [facility] and [facility]. Lab Interpretation Abnormal (test code = 91945-2) [facility]usaPTT2022-08-19 19:00:12 Test Item Value Reference Range Interpretation Comments aPTT (test code = 36.6 See_Comment H [Automate d 94549-9) message] The system which generated this result transmitted reference range : 22.8 - 34.2 second(s). The reference range was not used to interpret this result as normal/abnormal . RHIANNA (test code = RHIANNA) This lab cannot be scheduled at the following locations due to collection/procc essing restrictions: [facility] and [facility]. Lab Interpretation Abnormal (test code = 86883-5) [facility] CampusProthrombin [id number] 19:00:11 Test Item Value Reference Range Interpretation [...] following locations due to collection/procc essing restrictions: [facility] and [facility]. Lab Interpretation Abnormal (test code = 85617-5) [facility] CampusProthrombin Gqep1839-87-21 19:00:11 Test Item Value Reference Range Interpretation [...] following locations due to collection/procc essing restrictions: [facility] and [facility]. Lab Interpretation Abnormal (test code = 49937-4) [facility] CampusComplete PFT (Cross, DLCO, LV) 2022-02-03 00:00:00 Test Item Value [...] 9530) Lab Interpretation (test Abnormal code = 23662-1) [facility]MD BRAF V600 E Mutation Material Cintptf9521-61-93 21:49:16 Test Item Value Reference Range Interpretation Comments Archived Material Previously diagnosed (test code = 59384) tissues from [place] [address] were selected for molecular analysis. Results will be reported separately. [facility]MD EGFR Mutation Material Request 2021-12-30 21:49:16 Test Item Value Reference Range Interpretation Comments Archived Material Previously diagnosed (test code = 32434) tissues from [place] [address] were selected for molecular analysis. Results will be reported separately. [facility]MD KRAS Mutation Material Request 2021-12-30 21:49:16 Test Item Value Reference Range Interpretation Comments Archived Material Previously diagnosed (test code = 61106) tissues from [place] [address] were selected for molecular analysis. Results will be reported separately. [facility]MD NTRK1 Fusion Analysis Material Qfiewqt5303-34-04 21:49:16 Test Item Value Reference Range Interpretation Comments Archived Material Previously diagnosed (test code = 42203) tissues from [place] [address] were selected for molecular analysis. Results will be reported separately. [facility] NTRK2 Fusion Analysis Material Fkyyqkm9972-34-15 21:49:16 Test Item Value Reference Range Interpretation Comments Archived Material Previously diagnosed (test code = 33264) tissues from [place] [address] were selected for molecular analysis. Results will be reported separately. [facility] EML4/ALK Fusion Analysis Material [id number] 21:49:16 Test Item Value Reference Range Interpretation Comments Archived Material Previously diagnosed (test code = 94910) tissues from [place] [address] were selected for molecular analysis. Results will be reported separately. [facility]MD BRAF V600 E Mutation Material [id number] 21:49:16 Test Item Value Reference Range Interpretation Comments Archived Material Previously diagnosed (test code = 01224) tissues from [place] [address] were selected for molecular analysis. Results will be reported separately. [facility] EGFR Mutation Material Request 2021-12-30 21:49:16 Test Item Value Reference Range Interpretation Comments Archived Material Previously diagnosed (test code = 82023) tissues from [place] [address] were selected for molecular analysis. Results will be reported separately. [facility] KRAS Mutation Material Request 2021-12-30 21:49:16 Test Item Value Reference Range Interpretation Comments Archived Material Previously diagnosed (test code = 31502) tissues from [place] [address] were selected for molecular analysis. Results will be reported separately. [facility] NTRK1 Fusion Analysis Material [id number] 21:49:16 Test Item Value Reference Range Interpretation Comments Archived Material Previously diagnosed (test code = 78553) tissues from [place] [address] were selected for molecular analysis. Results will be reported separately. [facility] NTRK2 Fusion Analysis Material [id number] 21:49:16 Test Item Value Reference Range Interpretation Comments Archived Material Previously diagnosed (test code = 21312) tissues from [place] [address] were selected for molecular analysis. Results will be reported separately. [facility]MD EML4/ALK Fusion Analysis Material [id number] 21:49:16 Test Item Value Reference Range Interpretation Comments Archived Material Previously diagnosed (test code = 75815) tissues from [place] [address] were selected for molecular analysis. Results will be reported separately. [facility]MD BRAF V600 E Mutation Material [id number] 21:49:16 Test Item Value Reference Range Interpretation Comments Archived Material Previously diagnosed (test code = 19404) tissues from [place] [address] were selected for molecular analysis. Results will be reported separately. [facility] EGFR Mutation Material Request 2021-12-30 21:49:16 Test Item Value Reference Range Interpretation Comments Archived Material Previously diagnosed (test code = 30665) tissues from [place] [address] were selected for molecular analysis. Results will be reported separately. [facility]MD KRAS Mutation Material Request 2021-12-30 21:49:16 Test Item Value Reference Range Interpretation Comments Archived Material Previously diagnosed (test code = 82792) tissues from [place] [address] were selected for molecular analysis. Results will be reported separately. [facility] NTRK1 Fusion Analysis Material [id number] 21:49:16 Test Item Value Reference Range Interpretation Comments Archived Material Previously diagnosed (test code = 72936) tissues from [place] [address] were selected for molecular analysis. Results will be reported separately. [facility] NTRK2 Fusion Analysis Material [id number] 21:49:16 Test Item Value Reference Range Interpretation Comments Archived Material Previously diagnosed (test code = 30874) tissues from [place] [address] were selected for molecular analysis. Results will be reported separately. [facility]MD EML4/ALK Fusion Analysis Material [id number] 21:49:16 Test Item Value Reference Range Interpretation Comments Archived Material Previously diagnosed (test code = 11922) tissues from [place] [address] were selected for molecular analysis. Results will be reported separately. [facility] NTRK3 Fusion Analysis Material [id number] 21:49:15 Test Item Value Reference Range Interpretation Comments Archived Material Previously diagnosed (test code = 31561) tissues from [place] [address] were selected for molecular analysis. Results will be reported separately. [facility]MD RET Fusion Analysis Material [id number] 21:49:15 Test Item Value Reference Range Interpretation Comments Archived Material Previously diagnosed (test code = 63664) tissues from [place] [address] were selected for molecular analysis. Results will be reported separately. [facility] ROS1 Fusion Analysis Material [id number] 21:49:15 Test Item Value Reference Range Interpretation Comments Archived Material Previously diagnosed (test code = 63263) tissues from [place] [address] were selected for molecular analysis. Results will be reported separately. [facility] NTRK3 Fusion Analysis Material [id number] 21:49:15 Test Item Value Reference Range Interpretation Comments Archived Material Previously diagnosed (test code = 99697) tissues from [place] [address] were selected for molecular analysis. Results will be reported separately. [facility] RET Fusion Analysis Material [id number] 21:49:15 Test Item Value Reference Range Interpretation Comments Archived Material Previously diagnosed (test code = 24438) tissues from [place] [address] were selected for molecular analysis. Results will be reported separately. [facility] ROS1 Fusion Analysis Material [id number] 21:49:15 Test Item Value Reference Range Interpretation Comments Archived Material Previously diagnosed (test code = 35933) tissues from [place] [address] were selected for molecular analysis. Results will be reported separately. [facility] NTRK3 Fusion Analysis Material [id number] 21:49:15 Test Item Value Reference Range Interpretation Comments Archived Material Previously diagnosed (test code = 74791) tissues from [place] [address] were selected for molecular analysis. Results will be reported separately. [facility] RET Fusion Analysis Material [id number] 21:49:15 Test Item Value Reference Range Interpretation Comments Archived Material Previously diagnosed (test code = 23174) tissues from [place] [address] were selected for molecular analysis. Results will be reported separately. [facility] ROS1 Fusion Analysis Material [id number] 21:49:15 Test Item Value Reference Range Interpretation Comments Archived Material Previously diagnosed (test code = 17380) tissues from [place] [address] were selected for molecular analysis. Results will be reported separately. [facility] CampusPathology Biopsy Interpretation 2021-12-29 21:51:25 Test Item Value Reference Range Interpretation Comments Addendum 1 (test code = g0rypCKpIWPwpES1MXB 37) yRRKyy9iri9KqdPEvgC OiSQebkZVxwsEgvj45t PB3yX95XW3zMLGbQiW7 NUGtcxK1Dto3WHTeBLO jvQGpZ854c6uue5hvmi AhlZE2wDyzMJYdczjeK tO4GFcjTAVgxpweSZl7 JVhaDLBsvRQ8TGFduUW yO0DiAEEwFS3smtz5ND O4RPopFMRuFhD3EFRzx AZsQIAwsKpbGWjnx879 ULI6NnNpGQWbpaVibFt ejV1tPpVeGTMECN3ESQ WaD2oeoiHwPgHUZytoL XVxdiXQgBZygBN6NFWD jR4vztUbCFWgg0EmifQ ri63cR7AblvHhHLGLJk e4ERoyURofFLIqgYu0g SQSb7VuvZZLqlZxyv8j lNptavj5sZSoGrCEwYg mAGOpt8F1BRqqNJ0wkl TjCLM5zBEkNSMqnDLVP 6uxHT04KQVix11aUW5j RDIsYUScETQbh26jI4r vbmFsIGFudGktUEQtTD VxBFJai01hXFOdDeEkN Wc9OPfrHJZobeCsko3w ETWwbhCsx8NtCUhslr2 maXhlZCBwYXJhZmZpbi 9dgXBlGIToWTX8gFVyl CFjeBHvtavqXH4fIEwv tWWeqCLUCFjeDYE7qA3 zdGFpbmVyIGFuZCBwb2 h1gNZiFOCsb4RsORArb GVjdGlvbiBraXQsIGFz IHNwZWNpZmllZCBieSB 0rFIpkTRxxKTyK1N1qs VyLiBJdCBpcyBhcHByb 8LkRMHud1BzcUOuYZAg VQEsN59qjIHyvH2wUVG kLLgmw0L0xNKxVTGoVP joEj8gEMSkVBPzWjydU HRoZXJhcGllcyBvbiBj EQQ8NVpfHVF2eT7mZFE 5cGVzLiBJbnRlcnByZX RhdGlvbiBndWlkZWxpb mVzIHZhcnkuIEZvciB0 lJ0hshOsCIOaqnRhziC xU2Vdp4DszsJyUCMKHw seNNWuVALnZMSyTJ96M BnxQC3sLJW8oJ7jADed cMWbEtHizo38dgWmZRO lbGluZyBvZiBhbnkgaW 02ZN9czIW1YDuiSHAzz 7Bac6JbYkLWaFRlj0Lo trVrGZHecH1pjDmjPJm udGVuZGVkIHRoZXJhcH xigVUjk5UtAENlfqEem rYaPr6kTEHmvBGjcWOv YXRlIHVzZSBvZiByZXN 7dRJgHtFZPFXgv6QqTN 9qISBopWSpTFE9VIInd 9WqV4Evm34qf8MnVKVp jVlnn9QxKXQ1nQOuUNX 9D6ieRLNcPDxgoULwEW Jri6FcV2syZA8yLTQgB SKnekKqr55oCEQpbw63 YGMdbGWcn2AaxFmgEVL nQQ5qIVVlGCPazFunkk EzIH3bg6KoQpEpM5Nep hYdiFMeZB9bdLCxPOYb cmRcaTBccGFyfQ== Submitted Clinical History s0ofrDXnFNWwe7wcRAL (test code = 01548) mbGFuZzEwMzNcZnRuYm pcdWMxIHtccnRmMVxzc 4JcV9IpEqAnTUfkvlEu XGRlZmxhbmcxMDMzXGZ 0bmJqXHVjMVxkZWZmMH hfRm4pnWIbyLdxKlCjS SBne6vgotZWixtiiDm9 x5otUCTfPuA1dBYsHCj hZ8pjnzZnwXRsLBQnZE x5oP71QIQucR9rrQLsD OigyyPgViG6SWhiCDVm ScA8FIOwkZLqYDZdJ9t yZWQwXGdyZWVuMFxibH KhXEH3wLdmh1S2vGRco GVldHtcZjBcZnMyMiBO g7RmIHp9bMjlJ4EjGPE kMwE3bVRnDHMbYXzgIB KkRLGpipF8iP61PRfcf cX7oIDsg9Wkj19tk175 tP0qiXFeCQM1DMWbKVM jdMZaINCvERW1YFLifR JgQ9suOFXlLD1dimssY UjlMGezVPLamFN5KGMe rXItW4UlFHOsZWhgZDY hziq1ZnCvEr5xwNVgmN dyGGzub3wun5bgjBZxZ mo8DTIiZqPmKlzeGPzx b8Ecd9ktOZElmq7lRGF 3vZNnpQdwb9A5nVShQZ BqgTJqnuVhTWYdEyZ2E IxtCR1lkf66ZUEhBGH2 xa4fnTWyhPenzzFvcQC qGXfbP1SkFNWij784PJ ZlC4XrOPTvg0V8vmZiR nTrMJNyxNM4bnQ1NCRd TGe5kQDzyhY0onOqsOP wY2zasS9lTSZwOE2pul stl6ppBXgjKAocHTUru CT4pnA6SNSrhFXnW0Xz wY1hUIIcTWitKKAwkpz 7EaIzId3bjWIsrHszMD xzYmtwYWdlXHBnbmNvb nRccGduZGVjXHBsYWlu XHBsYWluXGYwXGZzMjR ebZjpdAjcmS5jHmWqEr DxXXreCB5zAPHyS5ejy BXnTOYsXTGvJ7iwInSw pB9yfHqrZRbzavUtWJ9 7uHNzcCbvWM4tXOMjFA Ehc6WiqGNzBlWvPuevA bnoWSJixjBFnZ2cQG0u c2VgE6N6OT37ABcvmLY pblxmMVxmczIyXGxhbm rgTLZqWZhtL7nzXaExS TFqyYjdIOehy9YwCKJg XGZzMjJccGFyfX0= Diagnosis (test code = 34) g2wbnSEzZQHzoSV6ADJ bVSZjo5arg3PirTLooU TyMQhasCYuntIahg78s GD5hP31YU3rRLDxIgW8 TPXzuyP8Ggr0CHHwYHI lrZEyV249q9eln3gugb PbsGL3eGpoWXOlgnumE xS9ZSfpDCLwvraiMHz6 EWxmGFWmgNE1ZOWmsUB lA2XbKUZmOW7ztei7YP O6DBjjHZRzZtK3PLQur LXyZUXebBzeZIgqx230 PPR7GbIpCIYsorAacVb vgW1jGlGkOJGZsV1gQA ZfULZ0KYObeUQdMQbzS rRjWSHfu3MdjXhvfCVj TOZoksk3INYwBFMWIb8 OYQVNNA6YXSEwX1YlPV QLHfBQIivCXS4sVNPuf sj0JZIfL7DaVGKcjV5a bnQuXHBhcn0= Comment (test code = 9835) z2rlaGPyLUGoiTY8YKF dDSIkt5gnk7SbkAVqnF XwHAkgmEAuysQrvb67l PX1cY24LB3uZCJtNoX5 OMRdeeP7Gic4CQKxIHQ juKLjE530v5xnw0crhx ZptUW0eLtgYNYeuwwlH rU7ZQmeMBGtfguqUIi7 OXzeKCUjpSD5NOGvqIQ jD4YpQTWiTY5qqwc8DG V3CXwdPAGsDzV1PWSnl FQeQFIekWejUZjqr427 FUJ9MlNqISKdfwZznTo mjS9vHzHrVZFZkM22jt 3crAQ6q0UfLY6hR6YzR GT3CMrxilSwvT99YDBt j6b4rTBtPZC6VJffqU5 aZFwtXOZ9kI4oPDLtzX moLAcfsFamj6IuQFEbd iBhbmQgVFRGLTEsIHdo iVhrKF9vS6L3eOHbKRR vciBHQVRBLTMsIFBBWC 04LCBhbmQgcDQwLlxwY XJ9 Gross Description (test k0qfgYOmXGCizTFZAXn code = 2316141656) wMVxhbnNpXHNwbHRwZ3 DuzlpgIFbdHB2fDC1ri BsmnBYgeDMjAO6OXXGc ZmYxXHBhcGVydzEyMjQ mFBYixXVscAZ4CNDuBP 1hcmdsMTgwMFxtYXJnc eB4RSSydDXcW5GhWJFs ZI7exlmeKFJ0EWgjbO9 sdpXXVwajNd7uvMYhrJ tcZjFcZmNoYXJzZXQwX XLueCmjQOAkCEi6uY5S EjctD75un6V3Iay6XCA uTPByE2YqIH3kBATzvP CpA05HPxuoLUP8XLHIW tziXXUvKH9Is0anWDUo cEEbFDK9OWztfYHgCGD rYJEwADr4NDZnJLlyuF VjDR5hfJlhStmkrXkdq 2VjdCBcXGlkIDUxMDAy XEurJUPyUB6OYqQyIKZ lXqV4ICpgKQe6TOa0ZN 3UWhOpZNOlNSNrNRB0O sVaZEt4ZLxcNY2EPJVk NjgxMzUxMzYgNTUyNTQ kKJo4UCLzDBjbRJQxaV FsIFxcZnMgMTAgXFxmY eOvGYPlTDawjjW3NZFv YWluXGJcZnMyMCBBOlx tPLTxTFiqiDppqG6aNQ BtU61ry2GXz5JbKL3ZO Hj4ylLemzdzzO6fMRMb wmCvQOzfzWAyC1ryUcf aGfSrEpKoDIAIvR3oBD MwJWC9ZAEnuSKdCSipR mUsIGxlZnQgbHVuZzpc BoOtF8QyRNGRkMMuHQZ ww8LjmnYkKwN4HU3nAx Umu92nb90vmCO3rSMhm WUgYWdncmVnYXRpbmcg jT4aTe2fREvzJO6eGAe lBQ5tMWYoYVSoeqRhzh SotLTlnQDqvHR9FYAaz B5pOWOaMQZvsHCzvQMu uAyvHxdjfMB4NNjjGey sdL3uyPTBLVUMFuqVLi zesoLrHN9ROS3BMsCZD T40LiQlVCF1CUjEE2EO eHO0Xse2NVl5mXenCcn ivgIayDObXvCQtS8QTc jgPnkbyBO8YXgiMinjy C3yrTCQNZXJJgrDQzxl nkLgOL2REC7HKI5BlWY cCMS3oJF4OMZKRbyotY S2xUR9rJ23JJWbREKre NIfGXjdY358OXChXGha KFc7gkMyEHWiPmBmBPs hJWDsR03mz8EGf8RcBK Cem7rdeVnva2PcuPRqB LmzDNYucDGnFNzjnU8x RqCqs4xwpEp5HLerkqK 9HHJiov6rjQbloP2cRY nfc8uqZNI8VJNymFJax JKwQPxwlAawaR8sTiSf Mwi1LWpaOYEzT9ZoA0L dvtN6DNQgTXedHJRfAX YgDQp9 Biomarker Block(s) (test j7ynpDAsNGIzvBC9SQA code = 9841) dEUUky4qdl4ZavSQhqH JaCHocgASbmvPklp29j DI9nE05JG7dZJRdZfQ0 VTTkxaZ1Unh5SPGzSPM acTUsP604s4any5otju LppDR7dVehCWZvpaueO wF6JDlmPEGqjwxrTUc8 GXciBALpgMY5VDIobDU pN3RrMWQuPJ0jely3BY F6NIpoFNGoCbK9ZCMad UOvXVJiaFadPQtbn663 EYV6LiZiTWJuiwMvdSi nrP5dBxKaASJLHrgpBB J9 Disclaimer (test code = i9pzmTPeRABhqXOyZwT 9844) eFSPxGGPta5zsZVVifT FuZzEwMzNcZnRuYmpcd JGlXCFvXqZik6xfl368 jLXid2kbNSHyZcG3nQC mPWKpgNGeW887IEDfHB zfp2hfl0ZwDRTfmOCnz 5Y2CFMZtssccTo7hHld E76uc8C1NgxjV9lkQGL dGGYcL9FtKJ5wWZUwWm t5OIM9VBP5KDSkWMTmV 3NgFU1vRAItrFVtFEr1 l3tusNokGGVaMFN6e9m vVLxgqlOgDL3ydb8zjR e1e7vzdvBiXJWrJDNbk HNBQVCyV2VauBllNr3k fQe3dPhzQvfzJVX9Bgf 9CO1ril26rdj8rMupYE KstamkTzH2OZeeBRGvz eadOHx7IZjgZQCzlPH9 IBWllKBwP8OxKYYoYM2 ihll7HNB2ILrdOMWcVp H5XCNgbHLpZAZvqRxvU Kwkd655AJO5FjJlBB0x J2Elk6G3xL2hbGFfVNS nwVZoCrCyEFRkwq2mwE OlPVaiw6WbGST5kiB6p BCfuGIyMGVwPE98Nkkw h7PvSqjaFVX8VPWjppP fs4Mlx9yiMfVjxtEtO8 hiC7NsPXReDKSdBRPgU tButeHga7Biu8FsbFPb tJy3x1jlNJQhNCPczVj ok0nmDNH1OEToJ8U6zB Xyr9twKWhxYEYbsVJ3f wJ4AEEkwGAiG3SvqB3w GAUsTV0ahck5h1lcOJP 8VOdlFYRaClD8ptU0MS BcaGVhZGVyeTcyMFxmb 024LYS6DqBtIGEcv9Jy S6TbhCskI13cwLanK58 oENLciDhvvN4zcCnhbT 5cZjBcZnMyNFxxbFxwb YAwwifnGEznntC6GKad krudVHRsIFktB8vvIgV wBXWnxScoKIbis9TeNQ YiHRXoMnxeykU8UHRJz 58tCNAgu6HjXTMtpO4b iPVhJLmthhUyxTY9WQg hdmUgYmVlbiBkZXZlbG 9rQJAqYA5wAGOixqFyq w6aslCsHQZtJWWhI8Fo cmlzdGljcyBkZXRlcm1 zseErFVS8QXWMHB6KKY MqPAVbv66sGPRyyJozh D9mvZFcatPhQXFgy2Pz uU5zaCPOPMOyH4hxFT8 dZSvmz5EahWJpbOPsrF E6EDHzg8ZlAcAyzsKbu PLgaHCoK4YlnJzhT0kl EJNeFSWzgxVbaIXjz1N wEFBjuPV2kOBxBZ5TKv BUj42dEWWfRTGTuyFzX IHpgXfhfXM8eiU8vE7x LiBJZiBhcHBsaWNhYmx lWLGiu009de3fepO4XK OcYAGliptrz4RkRFMjP RPgjV35MUUvJOXfhp1j zkqffKBfagKuE4Dvwrr 3fO0uETNpSUfqIMOeRM ZzMjJcbGFuZzEwMzNca GljaFxmMVxkYmNoXGYx BFnjJ1geBdPgMnGyWmd wYXJ9 [facility] Interpretation 2021-12-29 21:51:25 Test Item Value Reference Range Interpretation Comments Addendum 1 (test code = w1dukUCrQPGliQC0RPA 37) mGUUai8wpg9TnkHBvqK VpTThocGZpsbJyaz94x ZU1sT49JQ1wZOQbEgH1 BSIyjqA0Yoq3AINeCYG mqURbO867j3lhp1tudw CsxIZ1lVxjTNKefhoyP wT8IAryWIOyirjcUBk1 ASpxHSUdgDR7WSJhlFU sX6QtYEOmSJ9xpxp5PC J7REvsOKHmPzQ2GHWxz SUaTXLvqFthHJkjs430 APY3PrIlVCSdhrFpeZy tqX1vBdDjSEHRMA8DOV EmX8bynoXaGcYPOzvpX YDwnnBGxIXxlSC4XORL pG7bhaNpEUSxi6CcmfT fj09yG6XzobUxRYXRKg a2ZIsoHXrsQYVbkXl0i XRLv3ZvyCPXunAhff2t qZnwrti8cDYhErOWbEz uCRUnr1Y1NKhlZH0mwu YkKKK3lUNqGNNwlBEEX 3rbGW38NYWwf43tXO1f HOKeSYKdPBBxz37tD7t vbmFsIGFudGktUEQtTD DzNAToi56dBRDsVsShQ Lv9PZjaUTDphjJjff0y AVYcitPji4YlZTnudz0 maXhlZCBwYXJhZmZpbi 1vmCJzJOIhKAS3xGMaz CPmsGOivodhBT1iCNqo eAVrdEWYHQulGBE7eH8 zdGFpbmVyIGFuZCBwb2 v8wBNpEMYew7VvUDPyd GVjdGlvbiBraXQsIGFz IHNwZWNpZmllZCBieSB 0xBPnjOLmfKHtB1V7zc VyLiBJdCBpcyBhcHByb 6GvMNBlz0JmeNRwRYSb RVDhX32llENxxJ5bZDO rRQipb4O5oPKrRSWqQH axBx1fNCWsDXAiEmloH HRoZXJhcGllcyBvbiBj YYH6SIvwIFR4wS0zRED 5cGVzLiBJbnRlcnByZX RhdGlvbiBndWlkZWxpb mVzIHZhcnkuIEZvciB0 rO8pvhUhJLOptkFkahQ fB0Qxg0SvniQcKYXDDj yrFKIaQSUgMPKuSN35Q SmiPY5pRNP3oW6yLBpa gBEsXcMmea29waMyKHG lbGluZyBvZiBhbnkgaW 66AI6mjBV8RGsoAQWbi 3Nid4ZgChTYtPNki2Bg qtRaOKTnnB8hoKxqCEv udGVuZGVkIHRoZXJhcH fhiRGkw9BvLVSfgfRkm gCsMw7dJAEyzXTcmBFh YXRlIHVzZSBvZiByZXN 3vEPqChSJPZOuj1HcLY 4uHJHgyTUeKSD7TSXpv 1WcD2Oyv59vm8IpHNIo oXmpm0TyDJC8oCFyQDD 5A2llWQRoSUppfYTcXV Zym1VyZ8cvKQ5zXAZvI KVaaqRxy67iJYNvbr29 LCGluZLme3AclWbwRJE pGM9tUCNlWBBzqVaxoc WnKM9ro9IkNmBvA2Mwn rXefWIwNX5phZHjLBDx cmRcaTBccGFyfQ== Submitted Clinical History o0iwhQKhJJGxq8ksQHO (test code = 00284) mbGFuZzEwMzNcZnRuYm pcdWMxIHtccnRmMVxzc 3SyH4BtQlLrPCaiexVa XGRlZmxhbmcxMDMzXGZ 0bmJqXHVjMVxkZWZmMH woPa9hpRUbnDnmKcOhD GBvo3fxhnLHgaohdYe0 b1vaGTJyClP5oGExUOu oR1qvslJlaHNjWBIyIE c6rC56QXWblJ0uaXNyS CpsiyAbJuQ8TYesVRVc BsA4KYVcwGUlFBBlA1h yZWQwXGdyZWVuMFxibH TnUJK7xNedo7M0gYSfz GVldHtcZjBcZnMyMiBO l0TqSAe1sPgmU5YvVUX oBkF9tLUeSCPePPmoLA IgNPPpjqC2wO02ZUyuo hR8qVKtw9Ntl20gn648 bJ5peRLdBRA7NJFjQDS sqSCxUNMoURW0XPOxnB PbC0ckZUKpMF1jdzrbL QfzKKrdJMRcdEZ6WXPg rOAyO6FyXOArAWlqDID bvcc0WkVdXx4xeIEfhS unJQlpx6otc5ymoAGsS co3UKKkMxWxZljmSKzt w3Fox6jmXQKoay2qTIH 0wEIqzQqmt2C4wAIbDN HwyLUgabHmRWRuSmK9D WzwHJ2fnv86FENcHNI3 rg4plZBenHchjqZrlAO jRBsmU7AmIJPew894ZW VmA0KnCKZft3A6nvMqA yQvAKBhrUJ8boG7TUAx BDe5cPSdwbF6krMfaXS gS7oklO2iAOUgQY1fet hwy0xfKTeqLEvtRKAdj FV5kdO7WZTxpPEgG0At qL5eGFGaOMxnOPXostp 9JsHwMw9ofYYynWrvPG xzYmtwYWdlXHBnbmNvb nRccGduZGVjXHBsYWlu XHBsYWluXGYwXGZzMjR fsMlpzUwffP6wWiZjPw BvUWpyHO2tKCXiE7vgn BDtEACsCHFtN2nxGhKx xF6bvYzhQUtkriIhKV7 0oWQsqFtiFA2tNYGcGO Txw0VynVYxPzLjUnrnD doqXQFocxCPqP5mAC3m m2BpF6W5WW62KZestBN pblxmMVxmczIyXGxhbm qvAXMcNWkbQ0ehHqHtI KOzoAtuDJugi1AxPXLn XGZzMjJccGFyfX0= Diagnosis (test code = 34) r6gruALqUZWhjYE3HMB zZROmx7lyi4FypDRcvD EnZGmhpLVxmvQmjh57j RT1uZ52RS1gOIRpJbH3 BYUpdqE6Stv1QFVvXBU rvXTmS810m0jgq0jpuc SdjQD9zStcIGMhzaevQ lR7IRyfLNGejtdgBEf1 ZKdqDTYflPA2JLNwoNM fH6UiHDZsHV0tubt0FK F3AWtwAYDlIdB4NFCbh IPdDVXbqKonGDtpu868 UYP1RoGxOSMgcjCvyWg adR1kHpXzRKIDhI1jOW OoPFV2EYJirXPvXDlaO vNnWTJbo2PuaAlxbILr JNSmfml3DXUqQCNIPq8 MDFNCBD3PHMHoE1JmFE FYBwNBDoiZVI5rZHOtm bu4YKGyU9FgCKWdqZ1m bnQuXHBhcn0= Comment (test code = 9835) v4aihBZyRBViwCI6OKB yCIEej5cjq5MjuACwaY MyOFvsxDZwayZnvx55s MQ8wG48EA1yWBSaEnG5 ADZxbaY9Rdc4HYOwCGU qoZRhB689h5cig5vdkk CckYP4vMorPJJgrrcbT hE2MVpkTVDsnjfqKGp1 PKmvEDHonVI4HXEziBI nQ3JcDCPmCY6okga2BD M9OZjvULYhGyK4XLAnc GRkONEmnWtzTHntn918 UJR7IyRaLXDpynAyzSp xhE4uZyUvVRWJvB81ed 2rsUH7t9GlNT4tM9HoR VR3KYiblqDpsG38JKCu v3x3dYKeFFU6AFslqR7 dECiiKMO7oZ3oLPUyoH rtSRvwyYtay7YkOKMfh iBhbmQgVFRGLTEsIHdo aAaoLQ3iR1Z2jLKvTJO vciBHQVRBLTMsIFBBWC 04LCBhbmQgcDQwLlxwY XJ9 Gross Description (test r2cptIStFKNkcFAGIAz code = [id number]) wMVxhbnNpXHNwbHRwZ3 UpkodpGHduWH1xQR9yo GfxhPGhcTXzNQ9LWAAd ZmYxXHBhcGVydzEyMjQ gAUJolIFzsHC1VCBpWE 1hcmdsMTgwMFxtYXJnc lU5SNHcpWQaA6LxWTTm CA7mhghbGRV9HRbmaE2 iscKHInjsQk9smTMroU tcZjFcZmNoYXJzZXQwX BMvhJgvPLMiPSh3vI8Y XfytH48sa4A0Hjx4FBO sLOCeX9PoVT0vLFAlmC TlQ88LKysxKXN9ROZGK vyeYVJfWO0Ji6ukNEJl vTIiKAW1BVpyrSTkGHW xBXDdHNt4PNPbFIeimI WeXL6ocHzzGiqcoRwli 2VjdCBcXGlkIDUxMDAy ZAfmNBZtDU5ITgWoRBI fZsT7RBtzUAi5DQa4EZ 2MOiIsMVStEIGlFGT9H sQdEIq6VVmdBM3BKMYd NjgxMzUxMzYgNTUyNTQ nUVy5ZYFeKXgqROFjgJ FsIFxcZnMgMTAgXFxmY aErXQUfMVtozrY4DRNk YWluXGJcZnMyMCBBOlx yJMCbDCyigTuatT5xCR BqC68dj4KIe2BxWA1IA Yc1wuGmvsmbwG6jJHBe euJeXKxkjIMpW6kdVeh wNuWzQkTwOWFFfP9uVW NeXPH0LTNlbXVqLFruY mUsIGxlZnQgbHVuZzpc XaBrR1VtXRPLdXClOGC nl6RbgsHlXbR3QC3uBe Oes62qm14glEV6zPIri WUgYWdncmVnYXRpbmcg zI3sFp4hOXxkLZ0aFQm ySC6qOQKvPMKjzzZxbl TqnZOceDCzgIR9CWEmz Q1vNALwNXFykMFfmIPq iSacVwpspJB1LKxrEfw uaA3ehPKBHMNHCroQIo uezmDyLR0MAE3QXnXXB H62AtDeKUH0ELcAP4RB kEY3Eus3LBo4nBilBle kibAuhUJbRpUEgN2WYv qbUuwynWG3YGjmDiorh R5wjTFIJUNAJotRMuql jeQtIP4RVL8QHJ6PfPU gEMI6pUP2YOKOLbieuC Y0wVY2xI15GJYbQWSkb GCjXScgL422JBLkGOnx EAc8lzSeWLSdQuSdQNf kFUDpM62ek0AGq2OcDR Ibx2sbkIwvb4ArmMSsZ JpyTJPsoDLkITxzcU4h AiSqy0ldqRe6ZNjubyZ 5CBUcto5acNsnvM1dAG hyk5lkFYP7PZLnaEIip GYfHYcumIiidE4gQeNo Xqz2LGwtIRLfX6BkD2T atqB9HAXeZEnwXCTbHR YgDQp9 Biomarker Block(s) (test u5mllXWfQSLfbKD2KQR code = 9841) tWMVfr3lyk2FjqEFpsM VsODdkmEQyukApmc13d TK7vV27DD7xQQOgHwE3 INRxaoO9Agl6FHEcLOJ szCHfS382r2uey9zlmn KhbZO8wEleQROnfgixL bB0ZMubQCDhagyfWEv8 KJjuBCQcuNL2UAFidXF hY7DpIBJdQW7csgi2UL A1IDxmPLGmCsY7PXHrg CWzCRDwfUkhINlke543 LVN0IqIvXWIfokMhrYr nwR0aFsBoSBSGCfgzJV J9 Disclaimer (test code = x9cvhPCzEGTxmKJjVkE 9844) zPNXiBAYrp1bnDYDwmA FuZzEwMzNcZnRuYmpcd MEyPMEpBdBsn3nhp410 lEMwy2jrOCOoMcG4yEE vRGPfvEVpM860MBMdRT tfe6rea3CdWUBkfFBym 9L4XZKVnnpupQb0uAdl R78ym7T4FznhZ4ydZWP dCKYgQ4TvFB2zPCHmWc u1BSY9OMT4CBSnCEPhQ 7SjDP9dPSHlyDVxRPg9 y7rtbQdgAOSwLXX8i7b dYFunfrLrQR8yrq7pbJ w0x6zlukUtNQPuBQBbm LBDGSCyT4WogFxoLw5f tSe5pIylYsigTGA0Env 7YF7yoe49cmm9tBllGM MqumqvAtS0MDznLKMol patQVr0GYxeJEBhbDA5 QUSfgOQgN9JwYOMnCV5 tora7KEV1SSdiTCVtRi F0GUSyxIBiOCGefXsnQ Oyad288GZK8DhLhXZ3v C9Cgd7F0tM7beTRnFOR ngKIwDeHvXTDpfi0zeM TfMCbvi4LyHRO9yzL6t TVsoNGpTRBsOI82Cegy t4NhLyqsBNI1ITYcwdA qs1Hxi0lhDwNzduZvE5 osU7LoSMRdBTQfJJErL cQgovUxg8Ixc4KelTAd tLf2l5vlRMHuNNRnwZc fw3hxKEI6TOPnT4L8xY Lyu9guIRwjAAEdhGJ7t oV2WPWqdOJaF8GutU9w LHSjQT4icgo6q5acZPQ 5PSjaDRAcEiN6ktM4FB BcaGVhZGVyeTcyMFxmb 555LFC1MwClEUUuf3Ta T7ExkIjyV33ncRgbP32 kEEHbvLstbE8dfIhytJ 5cZjBcZnMyNFxxbFxwb CXlhogeHWgplfZ9QDxf dbprBMTwAEuzN9lbBoE tJJWrkDpbAFlnn4OjAX EdQLMlGymctwP5BOPJi 19kKRIzz0LqWCKleS1w dPGcWAjgzjYhlGP5XWq hdmUgYmVlbiBkZXZlbG 3eBDZgRC3zJRXywbMvn y5ztzRlEKPpTUIcF7Af cmlzdGljcyBkZXRlcm1 bjvAoCXP1QVZFGA9PEZ XpAKBke36tRHPmhHrjf K2pjVKngeVoPNDrz6Od wX5crJNURCAoT2txYH9 mJJthn3FpyHGhnPEcjQ I6NNUta9GhXmKhczNtx CMqcPZkB3AntJgiM8xt PLJzCLZqofJbyAMxl6V vCXWefLV6gAWoKP4OMx ILe33rIMMxOOLLseRlW SWbqHrbmRQ6zqO5wZ5l LiBJZiBhcHBsaWNhYmx aTEZhg447mb5urcF6DZ CdSPXqoishn0AkDFZqH NTxcB89UKDaNTDoih3x mujdcGOitjIlC9Efbgj 6gH6mPDEkWVhqFNCdVJ ZzMjJcbGFuZzEwMzNca GljaFxmMVxkYmNoXGYx SFdwQ6riUsZhRaJoYrs wYXJ9 [facility] Interpretation 2021-12-29 21:51:25 Test Item Value Reference Range Interpretation Comments Addendum 1 (test code = f1obnIJrAYDloHL7JEK 37) uJVRoz0qij8PtyBOtbE YbMGiolHFqcuKzgp43u DS2sX33XH4eQGGcNxU2 SWEnbtO5Mwq9TAHcKWK cdXHxM201v7fzn3vuvq CeyIT4kZuiNFMdfzogS pO6XQlxDWWzxslzMAk5 SCilQROklNR2CARooTX kV8EoPTVrEQ0bkkn7TS Y3ZQgkUJAjOaK3TCCfj JLdZRApvUfnSGcnm538 ORD0KuGoNPJohdMugNo gfQ1fNjOtHOADMW8PUH AmU7zntxYsEuAHPnflM MMkpfXIqUGrwHY0DXAP wA1ezsSgDEYls3VewkX qz54bY6UdsvEzDODDOq e5CPquEArhZDBjlEx5j FODe2ViiAOMafQefk9g dDmfypq6zAXbMhIQkEw zGKQjh6W6EBggQW2okt ApJDD3iJLiOPTrcAJCV 2oiWO95OVXuu94pAC1s VXXuOJRbNJOpu83hV6w vbmFsIGFudGktUEQtTD YnHRNrn25fURTbKkRgN Tt2VWkdXBVmrdRgta5x ZOHxxhCwi1QuSQatqa1 maXhlZCBwYXJhZmZpbi 3wjFFvRUVtMFA1jVDpa TRbsRSxoyizVS6rOJne eAJpfAHEQAwaWMG4wE3 zdGFpbmVyIGFuZCBwb2 t8qZGjPEQxk3OyUHLwh GVjdGlvbiBraXQsIGFz IHNwZWNpZmllZCBieSB 9tXZkmSEofSZyF5J0er VyLiBJdCBpcyBhcHByb 7HqSDNcv2OwzLLkKPXm IVVhP87haMVhcR4wZVN lREixw4O1dIDaFCWcCS btNv6yGWWlSHHyLbjpO HRoZXJhcGllcyBvbiBj GFT5ERkgDVU9pH8aEGE 5cGVzLiBJbnRlcnByZX RhdGlvbiBndWlkZWxpb mVzIHZhcnkuIEZvciB0 vX8wokKyOJZmxgTvctF oH9Cfh4HywxBgZRYUXd vsMDOkJXBtVNPbGX49C ZqeGV2gXKM1eV2kBOcy nVUaBvHmjg78wzNvMBB lbGluZyBvZiBhbnkgaW 06RC1xkND6RVqxMMSdy 0Agq2EuFzDUjSZqc7Cd rsNtCNNhmC3bfAclAEg udGVuZGVkIHRoZXJhcH hhfEKey2BxKPWguyUno dBiHa4fZFSqgAPgdARz YXRlIHVzZSBvZiByZXN 8rCPiGbRXOLXol9PtAW 8xKPRsqWMaRPN1MBZac 8TkS6Xht29ue2RfRIBk hYphi1TzKXX6bHSiMUX 9K8aiYQQtLPkmoGCeBZ Tbl0RvV2cyJV2qEBPqR ZYkdiDqk92rMCJmhk40 EXOiwBKhv9CluIrtVRS sQV8jMZBoNBYeeFdmle HzBV3fy7HrMcVyY5Ygm vWhcIRjEF8hpSShJCMy cmRcaTBccGFyfQ== Submitted Clinical History z3atjENcRSPgq9mpRXA (test code = 02191) mbGFuZzEwMzNcZnRuYm pcdWMxIHtccnRmMVxzc 5ZtL7YcZhReFRnimhWa XGRlZmxhbmcxMDMzXGZ 0bmJqXHVjMVxkZWZmMH zfPq7vfXYwhVduAhWqB PBbb7hxzcXGznhrvBx7 d9plFSNcIlQ2hVQcECj gR3gljqNldCUdBEBsLI l5fV95FTMmgV8wnKImU RcxgyZmXjJ0TAslZVAc NoQ5VJMvjKJlMOXeV2c yZWQwXGdyZWVuMFxibH FgKNH5xTgit2E5gOMji GVldHtcZjBcZnMyMiBO a6YoKYf8rResZ1ZzFVX oOdN9tFCjUMWgQZmkPI TjUAXyhxA2nY61ONeia lB9oNVtw4Gzp15sx793 hN5rsDZgEQT7KBXbHRL mgLNzHKBmSLC2DLQvhS YqL3grPJTyMH3kgfloL WyyDDqfMRGffCH4OBPs wYDyE3JjQRIvUBcuFBP uhgs5WrDdXg4xlLYhcZ reOCmsm1uos7wzsUEiZ qp3GDOnVrCvWkxjXLay t2Qkb7ioENLyuz5aCSW 0rLLsnAeyp6O3cNYsIK WnvYKxmvYxLCFrFjP7V DhqBV5arm34MTBuOSJ5 ju8tzLYwrBronaHhfUX nOQodQ0ApJIIzp432FZ GeN8RyTJFqa5Z3xqWiB uHyCQFowUV3ziL4XAZv OUz7aBZzadG2ubYfjFD pZ5hltK3pEYGjUU9ekh amg7orGZgnLDnsBROle GW5swY9OPFggJQcX9Zz sC0iVIRzEKhqMTEgzgj 4MvNfKx4unBQnoKfoEU xzYmtwYWdlXHBnbmNvb nRccGduZGVjXHBsYWlu XHBsYWluXGYwXGZzMjR zaWiypXzxrZ7iIfMrJg XaQGajBE1nVGOxV7flc BXaFAFzYICmR8qoTeUo bC8sxYshCTokwwNlFR2 3pRGzpTwcJW9lOKBdIZ Ahc1SncIRiEuDaSqtgQ zfaVIUysaDJhV5yVT3d m2JhI6D2ZV00TUbmlIP pblxmMVxmczIyXGxhbm utSRRgAKezD1hrVtVjX JOrkGkkQQbkq7GhYYEj XGZzMjJccGFyfX0= Diagnosis (test code = 34) s3eebGBmQCBueLM2LXR rQDKud6qew9WrzEYlbB GbGWhhxYAtmjVlhb11s EW8hL10MN4sIMHlEwZ3 NDMzqzU4Qjb2MICnXZK beVCyC046m7oep1kzia JkfHA1kUjgUFGvsddwD pZ4GPooOSBsppjwAIm8 HAamJRVncEM9DHEcnIP xT7ZrLRVoMR8anaf6XK E8PLxbOEZrWiK6PCQra XTsMBGnpNrpGUxwv430 UXY7TvYwNFFpulEmkMh plT0pMiDpEAHMzC5aDO CdFWE7XKRodMOfUNbhS zTnJECqg7JngTyzoZGz LHGhqdb2APZsLXWPOc3 NFBRDAI5ASLWqR0PlTK FPSlPGZaaINS6qVFWpl ra9DADgX3GhXFQrpD1q bnQuXHBhcn0= Comment (test code = 9835) s0culYHnCKLekJM1YLR dJKXzo7pnv2DadNZrgE YlSGonfELlpvBvdj09l AY5jL70LG0uSHThRkR9 OSKjceZ7Xqw8OQVfOJZ nrRGjN394x2ajd7kjdj EljFH0uYlbUIAhlntxT oB6TEjnARPrnrvyPZy5 QOnwNKKnzDI2YALiiTS tM1YoDABnGT3qzut7OS G4OVfgHGQmQrM2IVNsf RHhGZYreFguTWrdg585 ZBG7XoRjYISchqHcoBu epR8lKdIpTMVHcH69gf 6czLQ5z0GbLX9cF7FqM LC0ATzcprJhfI55CPXw t2r1rQAaXLT9GPxarV7 eSHalNGC6oN3zEYXpbI onPRrbqUdty3BaTFVpw iBhbmQgVFRGLTEsIHdo kAzmCQ0lL5V2qCAzIBZ vciBHQVRBLTMsIFBBWC 04LCBhbmQgcDQwLlxwY XJ9 Gross Description (test m6scxBBpHYOjsXJFSEe code = [id number]) wMVxhbnNpXHNwbHRwZ3 EegzodHYpdSU6tPW9zc CcorOJtvWAfON5FATAh ZmYxXHBhcGVydzEyMjQ qHEMghPKniKR3UTDaQP 1hcmdsMTgwMFxtYXJnc fA2DJOqxXZzS0AwAZBs MW1nxnruKET2RUzabD0 fzrOQNtpoGv2uqTXezU tcZjFcZmNoYXJzZXQwX YNxhHslGOToMQu1jJ9Y YblnC64fm7J8Axu5BQK iBMVzC6UaVQ1rGMOqrI YhN18QOntkFYA0MNGGN djkZLKvYE9Jp0wnLFBy cWRvMWQ2DNlhbYVmHJS dRQOyDJu7JHQsORdhoL ArIX4hbRhrHwwkxHkzz 2VjdCBcXGlkIDUxMDAy EAktUXFrNR5NGdVdTYY nQxA9USosCUh5VGn8UD 1YRkIcGAQfQJHpOBM3I sAaAFs3DUckOZ3EWOHl NjgxMzUxMzYgNTUyNTQ qAEk5CIVgOHkrJRTztI FsIFxcZnMgMTAgXFxmY kQcNMTtKHvdkpZ1GDPb YWluXGJcZnMyMCBBOlx oKFWnWOcouHtshY7tYU DlA84zk1VNe5NbBB4MQ Ks8xxWgjskhrI8rCHGe uzVbCJuibBAjH4cuIha qXuJxBnEkGXSMiT1jHD SlLGL6TUCcvYWsQGppS mUsIGxlZnQgbHVuZzpc SdMfG1WuVLEAoMJdQMN bi7QscrZgFbL8LT4tFo Fqw35cd68vzHQ1hKMxp WUgYWdncmVnYXRpbmcg zT2rDa2wZBhxMD8wWSx wNE2eLKAgHBMfftPpzu ErmZHvuPKwzCA5WEIxl F3fVCHcUNEikDHfvQVb nXkwJuqisEJ1LJfaPbf vcN0qxSFFYSVFOczSDi dtktEoVO3SVZ9EKkZIF U22WcQqXHE1YFkJL9UP zNY5Rkl1NHu5zAbtZbd oxhDswWUkLyLTqT5BJk dxUuwwaQK0FHykWdnav I7jnEDUYHDFBphDRxyz htOnNI4PCQ8YXN3IuSM zBIE8lVQ9MVVYHmreeV D1fBK2pU98MIEpIWRtx QJdYEitB889QRXfBFbq YLt8ccDyMQTlLbHnMZp aXRUcE82vz6FPp6YcAE Ysi5wznUzxa5JzvDOqF VutMVCfdXNlZOxlcB8h RdDan2uxbRq9BDmaoqR 3HJHuas4deEnxuW8hLU wjc6wcCEF9NUDquSIfm SSiASjacVltlR2nNbAm Lhj9WNgeBEZcY0CnC6E aeqA7WMEfMTgrCORfFT YgDQp9 Biomarker Block(s) (test m6bfnGZkWESjfJS7VAO code = 9841) cMSRbm7uok8DtvUImcG BrKYcrdBHdahVouw37o CZ7aJ97CE3tEDSbGuL6 MJZhioC9Nfy1KCZfJPR neBPrH492m7omm2ueln WnjHL3xVheURXbggtyX aB7ZLxdQZGavfqnNWj5 VDcrKMKunGU3VVIhaFY vB3ApRBVnUE2wlht9TT B6EWckLKLpJrF9EJVdl CQwCWQvgVmzQIqbw511 VBT7IiBtZTHjcqBseMg etH1sBbJpANKIFgygGE J9 Disclaimer (test code = v5yxdXWyZDUwsWXoFnF 9844) hIRZxCJKcs6crZAPexA FuZzEwMzNcZnRuYmpcd VZjSPBvDgJem5bad061 vKPva9uoSSLbPgW0nIJ uIZMtnSVkM094FJJgOE bss6nfo0YhHULrqNRcc 0J6MCWLnnzqlGk6qIuc C31kp1G7GrmbL2uqSKT uUUTeX5QaYI0uTMFsPf o0IUU6ZGO5OBCeDUYmT 6VbCQ7uBAYwySKrYTo1 c5zrdYaiANFxBZK0v3i yLKxlctNlZR6iyx9nsE s1b6jlopSfHCLkBFRbw TQLWZLfW7MamTwcKk2b wKj1nGanBxspKRX5Lqy 3MN6wkc81jbe4rVucWC NdubehHrV1UYtaYHAte gdoAUz0EYlgJMNjrSH3 YHAwaIZlB8HzYMGeDG6 nvdt1CZF6NSfdYVFqIw S1IJMohTHzFPXnoHjiH Dwfy110JKD2KlPiGE3d A8Wcc4U5oP0tzHIoTVE wxOZxOfUoLVVstu7yaU KkYBgbh0ErFHD2unC0o KKhsLQmRYEkUZ72Phim d9EyUlclBPX4LUXknkU cs8Ysm3twEkGmybIpI6 luR9NgKEUkWTGhMZPbP oSnmuOfy9Qcz2MmiYWa pYr8u7inQUOzJVRciDy tu7qhNQN3BUTeU4O4kG Ykb6itDFbvAQXeyFP7p zP9EWVtsJKyX8HtoH1j DIQhKE4xwrc3d5teZJO 2UPskWPIuLpU9aeY8QD BcaGVhZGVyeTcyMFxmb 512YWU4AmDtUJDhv5Ec G6GhbMvkZ40dgGaxH93 qLIXtkUujjU9rcYwhkW 5cZjBcZnMyNFxxbFxwb HWegxffBXshfiS2MLpe esxjRCXyHVxtR9jzSfE fOFWgxIdbIQvye8BoNI SwDADrXohwvyI8WFNIh 83sAFNmc0TdBLBexG1h ePCxAGhveyWfyHV7TYc hdmUgYmVlbiBkZXZlbG 3dPPIaLH8mSZElpfQym z5olxCqUNOkSBRgD1Gh cmlzdGljcyBkZXRlcm1 peaLlMMX4ISVBSA1MRM XwNKQud19jUEEjjEtpz B4swASuilJuQCAkc1Ga kC3pvUWCBXUsB9adJS9 iHRsgj4FrnKGbnEYrlW Q2MNVjj3XwTwKqzpSfm CPmgAYzO8BdkDzbS6ed OBCgBSZivcTaxERyy3J eEHDylUZ5fTBjJD9TSm FNr81pYMMnZPSEzoHaM ILlkCghkGR6neG4fA2k LiBJZiBhcHBsaWNhYmx oSPEqy627ol3rloW2TH FgZRRhhgloq2ZoEARiH SLroE70ZDEyUCHcxp8o petnjRFdzcUzD6Zqlhc 6aR8fRXRlOCgeCDPfAW ZzMjJcbGFuZzEwMzNca GljaFxmMVxkYmNoXGYx QPgiD6izZkDjWoUhCqo wYXJ9 [facility] NGS Blood [id number] 20:08:22 Test Item Value Reference Range Interpretation Comments Molecular Diagnostics (Received) (test Yes code = 8400) [facility] NGS Blood [id number] 20:08:22 Test Item Value Reference Range Interpretation Comments Molecular Diagnostics (Received) (test Yes code = 8400) [facility] Blood [id number] 20:08:22 Test Item Value Reference Range Interpretation Comments Molecular Diagnostics (Received) (test Yes code = 8400) [facility] [place] [place] ROS1 Fusion Analysis Collection, [id number] 20:04:01 Test Item Value Reference Range Interpretation Comments Molecular Diagnostics (Received) (test Yes code = 8400) [facility] [place] ROS1 Fusion Analysis Collection, [id number] 20:04:01 Test Item Value Reference Range Interpretation Comments Molecular Diagnostics (Received) (test Yes code = 8400) [facility] [place] ROS1 Fusion Analysis Collection, [id number] 20:04:01 Test Item Value Reference Range Interpretation Comments Molecular Diagnostics (Received) (test Yes code = 8400) [facility] [place] [place] RET Fusion Analysis Collection, [id number] 20:04:00 Test Item Value Reference Range Interpretation Comments Molecular Diagnostics (Received) (test Yes code = 8400) [facility] [place] [place] RET Fusion Analysis Collection, [id number] 20:04:00 Test Item Value Reference Range Interpretation Comments Molecular Diagnostics (Received) (test Yes code = 8400) [facility] [place] [place] RET Fusion Analysis Collection, [id number] 20:04:00 Test Item Value Reference Range Interpretation Comments Molecular Diagnostics (Received) (test Yes code = 8400) [facility] [place] [place] MET Mutation Analysis Collection, [id number] 20:03:59 Test Item Value Reference Range Interpretation Comments Molecular Diagnostics (Received) (test Yes code = 8400) [facility] [place] [place] MET Mutation Analysis Collection, [id number] 20:03:59 Test Item Value Reference Range Interpretation Comments Molecular Diagnostics (Received) (test Yes code = 8400) [facility] [place] [place] MET Mutation Analysis Collection, [id number] 20:03:59 Test Item Value Reference Range Interpretation Comments Molecular Diagnostics (Received) (test Yes code = 8400) [facility] [place] ERBB2 Full Gene Mutation Analysis Collection, [id number] 20:03:58 Test Item Value Reference Range Interpretation Comments Molecular Diagnostics (Received) (test Yes code = 8400) [facility] [place] ERBB2 Full Gene Mutation Analysis Collection, [id number] 20:03:58 Test Item Value Reference Range Interpretation Comments Molecular Diagnostics (Received) (test Yes code = 8400) [facility] [place] ERBB2 Full Gene Mutation Analysis Collection, [id number] 20:03:58 Test Item Value Reference Range Interpretation Comments Molecular Diagnostics (Received) (test Yes code = 8400) [facility] [place] EML4/ALK Fusion Analysis Collection, [id number] 20:03:57 Test Item Value Reference Range Interpretation Comments Molecular Diagnostics (Received) (test Yes code = 8400) [facility] [place] EML4/ALK Fusion Analysis Collection, [id number] 20:03:57 Test Item Value Reference Range Interpretation Comments Molecular Diagnostics (Received) (test Yes code = 8400) [facility] [place] EML4/ALK Fusion Analysis Collection, [id number] 20:03:57 Test Item Value Reference Range Interpretation Comments Molecular Diagnostics (Received) (test Yes code = 8400) [facility] [place] BRAF Mutation Analysis Collection, [id number] 20:03:56 Test Item Value Reference Range Interpretation Comments Molecular Diagnostics (Received) (test Yes code = 8400) [facility] [place] BRAF Mutation Analysis Collection, [id number] 20:03:56 Test Item Value Reference Range Interpretation Comments [facility] Diagnostics (Received) (test Yes code = 8400) [facility], [id number] 20:03:56 Test Item Value Reference Range Interpretation Comments Molecular Diagnostics (Received) (test Yes code = 8400) [facility] [id number] 21:47:58 Test Item Value Reference Range Interpretation Comments Gross Description (test d4kbnLRxIGBwgKYTKNakA code = [id number]) UthasSaOUWatCLvK1Akwv nwRAllTA1dTX1ioTbyhRN xgRWpEX1ACHBvDlMmVXIv cGVydzEyMjQwXHBhcGVya CG6ODXxFG4crrbwYUdfYG paPRNbrxS7UJTpnEAqF7O yBGVfLH1khcnvCTF1YDsr gS5aamPRZnsuGi8ccJLff HtcZjFcZmNoYXJzZXQwXG FtgImtASBhNFa5fC9GZcp vU56oy2D4Zes0RRMuNESm G0GmHT8kYZWbiKKtE04WA gblMIO2VGQRPieaSLGhDG 9Vy0qjHWIvfGUtWPF3GFn yuYVmQIGnCHMkNWb6KGHt VPdfwQSdCL9bpXqbDckrz Fbtk7VgkXEyIKonETDqOF VxBDkjVURhBA0DXmNlJCL nCfL3BhEjTQn7GCq1QL7U UyAiICAgNTEyMzcwMCIgO Ni6YWapQK8HTHAaSNI8WR T6WGXqYCHoXnLhGJw0ITK gXFxmIEFyaWFsIFxcZnMg MTAgXFxmYiBcXGZsIFxcb eY4ZLWxCDsvQTRkRpGzXJ BBOlxwYXIgDQpccGxhaW5 zEERfZ13zd7OYy6VnQX7L CAf5mjWidgfonC7kUNEdk vTbZEshgDIvV8hkU8HmMN XgIkVzF1JxY6eeMA6xSKO xz1E2iiZtNllvFKWnGNzl IERpZmYgUXVpazsgMyBQY HYyJ0XzmL8wH1vlALOoRT BhciANCjUgbWwsIFxwcm9 5TGI0n7qooSRgUUavOyxd bUGtzsQ4VHhODYSCKFyVF cCjDO2jNYcEW9GLUYnJPv byTYZ1XHjzcRZ4c7whiPI eq3t2WHfwLPG4eWYgwIzv jYf8WOPjo3QilWPrqMUdg MDmrFS7GQKdTUyyn7jlEV PnPKayh3MsBAmEAYLFEY2 UYX2vuFL6O0pKWXUXI0yT tVF7k4iloZCes2p1BKmeV NT9aWFsf59rsOhdXzgjdL H9RAqjMfmjjR0nzGBRFBJ ZZmcFHbvmltAaPB5HZZfJ NK7NiQX8i3dvlXJgd9i1Y OisKXI3vNbiiQZfdpnkmT NhnBdkqx22RBF4XEOwHLd mczIwICBmbHVpZHtcZmll jLR5WNcjEsyjaF0swZVUP XZORooOGnnlmpWnGI5YZL SPVL4YiJC8CvCvzID4KO2 7ZQQtKCNuwLBoVSuiB462 IZEdDJzoBJe4dbFqHJPtV FgsykOvFJGrbrARDC8RXT UqsmRHRdVcQ2IdrJMTsO0 wi9kvGXUrDCePJXSmF6Lt mCDeRPhoK4ObSEfeHABav n2nnKjvLcFnxCRafMAijP usDtJ1JVBzWDtof1aiOJT fPPgii1DfSHuDWNUPLC6K XS6qaON5QTqSV6NNH1sEc QTbJPlqfZB7BW7EDYnKIZ FGnBL7nOthhCk0u7opeKC xt3h4PDebFNL6qNE1LbK1 MsScc7ygnJLzZRpyHlqjn CCmyzU9OZsEDCGJDJlVWq SuRC7vVTfJYtxWVcD2JIB lOlM6E6eUD4CMGUERAWA4 MVb2nLG7wV79CNBgTCTwz GIjDNpeD992TZAtCYyfBZ v8irVnZENmSbShXYHgRKB ud8RkV8E1DTSeOFkjq4nw VMMgWVapl6GhDJvKVAFZL L6BUA4roKH0XZaHG7KYV5 mLwYfhmSZ0Nv5SuKP3aLt csLe1v4whfYOmn0u0LPxu OPO2rJQ9DEQeHI44UKHiV Zdnh8znKLWjKEwsw1PiBY vUMYSVNM0ZBS9rmXT1LGn HC5CWRUk5Bgs0nZ4RY9px yVg0QTa7rWkpTuhjarHbj OJvRyEAtQ5kqTgxnF6brU DjB7gtN5PeZGYxWmBdYYt lKURdVLdnuFFhSG4WH4r0 YRltAt5nUT7gVOVkojTDO fjwHhYgJ9MlP7hgBI9kKM AzmRFaA7oqr3FrODNbksT uht9hHIIteOBNLrUQEAS0 iI0ywlkgU6MuIUTCZFmeJ SpukeEMRVVPGZuOJ2LyYW DGGGSHWQIkKfFUWL7gDoV 8NuL1IU14LlpdULOURNQA VJjTVT0DEWOBKTKQGZ1PL fUgM1uRVDEABjOjAYYBVD WRVPHyEoWQQJ0uOxf3Xsf ma9X4N6xQVJHIAaEbSHFJ YBCCJLCcHE9LQWIMOJPBA K6OQRKVJ47UVXZQUOZZH7 KZK7hAXDKle1PpeOwdPcS 5CyUrLQ2sXYfMD0TWW0dT RJXoQOGWKLXFRXJxCN5SU OzZXP7HRCIoLGWUQVBZNW XiUnEWFP9bRBfRKL6UEBE hONPWOOYLLOCtCB1EIDMS LF1TSFWFKOAQC52CTGFOS GHYF5PZU0eTJSAWSCWJNz FZIrCYPV0RJZTYWFXXBZ6 FTkQNClxlcGljTmVzdERv VqLvwjR8WBSqvUQvYUI0W U6tFFMfexleKGCtUJKtWW J2JMpnjA12eYJqJQHnNBU ccGFyfVxwbGFpbiANClxz mG7eRvMvs0dikPz7DQOTQ nbweZIntyfrgjH6HQChg8 ickXxyq9GbsGJdLF0ukJp wpM7nTiIoQnZRQm5= Immediate Assessment Adequate cellularity (test code = 9837) Major Classification NFMC/benign (test code = 9839) Diagnosis (test code = b0zuoEOtJLLhoWD8LBWeI 34) FDyh4ltr7ZcfZAooCLqEG uiwMMnhdQeun22dOP3lO8 9EN2aBTFfReF8SSRbwfD0 Elo8KNUnYVSszRAsE248x 6pzo0ulkiEcwRB0SYOpFK WiY9EuIK1rLMAwuHZxP63 izXXpGHI6DFUtXWJsuGQg JOEwNNA0MQVqgKOlR7cqD NYtRQ3gduvsNMzgGHlbSC FnuEE2AOSrbXEuO3VyMNA lLExpQZJywjm8IlHbEk6x vLOffDphFFmkU9avgZ0zG iW0APdpC0hdzZ8mMNg7KC vkYCWkyTI5fzG9MKAvtAZ pA6BfvR2bRFCpWJ6lbzt6 t2xpNSQ0WYreWBLcEhH9t nB8TMHxsQQnSKupbJZfdk xmczIwXGNmMSBBLiBMeW1 aqOIwa9LnBJErLBWrfVnw tXudh6UzPLKvo3WzzN45E MViu1WxwecsSZHEwzfmRz luZSBuZWVkbGUgYXNwaXJ hdGlvbjpccGFyXHRhYlxw XRZdxHb9WlHktLqoSyOoV PAsCFKXioSkSQRcp3ChfS kkTPEoucYljg3fKBRwHHB kwMrzrSSgDYLmleHOp4m0 kV7wnAbtdMOnyMqqcXzbk QHzH1UpbKNdk1K4nAB7kO 3dHOLpbrIcc5HiwgQru2e 1fZLpkX7ncQIfo6DtBYUn zUZfcU2aGJPjfd3= Comment (test code = q6lmsARhXJPfoRC3KLMnW 9835) FChs9mzy9CwrJYkkWSgLP czvBXptjHwcb95jMI5yP7 9DM4pWALvToW0QPMpqqL9 Fvq4SMUuSCRuuBRkY028k 5wgy4akgdKioXQ4zWvuRB HbnmrnFpD9DCvrASPmobi gHOj8HMtlKHEyqYF3HDGu tNTrZ4EdOJEkML7gkap4N WQ8IBpjXACiJaG8LKQiqL WaIEEpgZvoJBbdm837EEK 5UfEmVDIhlrVjlBvtjQ7n UzPtNHKZsVFlZ8YhtXHue F0crwBcgaOvDJNhcLofkd I8ASPlM75gvXIwCwU3m1S 6ALQfr2EkUPWfSUvhgwba eAsmIINij6HeIZZlFLjsq 0Tbgs4stCIgxQ== Retained/Biomarker v5xgeRNvNBZbbDL1JSElL Testing (test code = LKpf3bpc9TlzFMsnTNsYV 9838) nshDIcbuYvdl05uZI0dY3 0DW6tPKVeMsX5PZOqjiH9 Jqh3JKIuAFCnlQImN655s 4xed0vrryZytFS3zMxgNW QxujhnNxG5HZzyRCLwlqb sERx8SIinCSXliOG7ZVOw tDWwU3HoUBQwTM1ryzr2T QQ6XAwwWQHtLtD6VFJdhM FwBDUlzHvcWUuaq639WMU 7BvDzGRKhzvDdyEjlcV4p ZnMyMCBTUjogNiBTLCAyI ENCIFxwYXJ9 Informational Points u0qryNAeKVUneGZwMuLwI (test code = 9836) SKeVRBjc2ueITMycNHhUt EwMzNcZnRuYmpcdWMxXGR eThNjx5xnf818nMOzv0pb AQVoTeM0eZKeJNEnaLZpF 273DXYhKOnvh1wjw3TlWW IlvBSly5T1POVWOVrlIBX RMGr1e5boKeGoAwX5oFZz JEmwP2esaqUleAGyCBZwM Fs2dW45NUFtlL3yjOOhQR hdvwWyRlB5OBqxECBrGtG 0BLMlqEIkUITvD5dzGHMi GFazXTNpJFsyhDUcPRH6x Xakv6Q2yPOvcQQhkFyjTo DlYuZvTbLKc6CcPZz6xSj gU7SgHONjAkH0zAZdWRTn SYnnFFKfCFExafR0oD30O HfamhS3hHYlc6Awq78ri6 64dP2cfWScQWT7SVVaQLW wmKCeMAHgRQD7QTNsoPPf A2ywLPJlKF7gfborTFfsN LksWPUrhQG4KXPjdJGcH8 TaVGDmMXivUXOwzpa6ElF sYx6ypHGypIqhIHkye1th a5scfJXcPxe0JOMfIdGxN ppgOHqvc1Ocn1vmRWLpye 8mZGG0zYKwwQczs7N8eLK xXGRudGJsbnNiZGJcZmV0 QDatGR1ezw66GOUnLRV6u m9oyHXwaNeeuaLyaIPlMR psW0NfWFTyc521TAYqH2I zOGSur1T7wpApMfOrDVOv qEG2zbS8SFPfNZf0kDWel zQ7mfClmQWzE0gupT1mYD HyHO0pohqun3icSJjxMKp jWUYbbMA5pdX3VHXxtJOp H3VonQ3oPBBoQDljZBBat rt0AqXrBm3pmOOysDvbTS xzYmtwYWdlXHBnbmNvbnR ccGduZGVjXHBsYWluXHBs YWluXGYwXGZzMjRccWxcc DbhcG5gWvQhIjFxFQfzYH 7uTEJlX8sbmMAdYAYcMJD iR9icMjVzqO9yiBxjKOyl mpU0YAmpX19wJMX6HSH0n yByZXBvcnRlZCBoZXJlIG 2npVDmBMRzNVDzAS3nVEQ 2ZWxvcGVkIGFuZCBwZXJm p4HkYR8yQUUzlZPdYII5E KAyy7KjB1PcERG1CGMokG 5lZCBieSBVVCBNRCBBbmR kdnVbkqIURQXla8eqM8em QO7kGMghJp4yWUVndxmiR WVkaWNpbmUuIFRoZXNlIH Ipz9WtEZabaxFnpx63KBO qHG5bh8YgX4vmiLXhcRh2 VVItZDAcABIri7IpJHPaw f79ENGrWupmqAqpGIUiSl 6yKr6xHWCajkRpSIZ0HyU DGK9jvgmnyWTvcYenqv8d XHBsYWluXGYyXGZzMjJcb GFuZzEwMzNcaGljaFxmMl dgEiXeHNEqBMeiO7wjQuR cZnMyMlxwYXJ9 [facility] Image-Gu[facility] FNA [id number] 21:47:58 Test Item Value Reference Range Interpretation Comments Gross Description (test e3csvPEjRGVmqDFKIMcvN code = [id number]) GaionJvOEPxcZCfE6Lvte laPUmjMU2nWW7whYlgdQZ ycGJwJW8CISYvAkWyUNJt cGVydzEyMjQwXHBhcGVya NK3NDAhFF4hiojoXXqbEV fiGQZpweC9JGJmwWFpN3K bDTToHQ5bctreMJU2YKmy dG8cckXALyedVd8daSCkc HtcZjFcZmNoYXJzZXQwXG YtpEjrEPGqTGg9rJ7ZNur lA89vl7E3Ibh2DYAdZUPu N5BnGY4zOWYshRHvG43UR oesTNN9GEBLUcwsOSBbGF 4Tw2xgNVUmpLFwKVL2YLm tcRIaCXUkLTAlDHe6OOVe PEdjvJWpCB1knVtcJietm Oabi7TzdTBhSGqpJOUmJH JcOThvWRKjHG1YPoSrLRT rSzL9RlWrQJx8BHx8TC1U UyAiICAgNTEyMzcwMCIgO Ww4XUdtMG2BPKOyVKS4LY E2ZRUmPDViPyLmEOi4ERJ gXFxmIEFyaWFsIFxcZnMg MTAgXFxmYiBcXGZsIFxcb zQ1OTFeVKxtVKZpMlPaDE BBOlxwYXIgDQpccGxhaW5 dMCOtE17ya5FTx8PaHW6Q VVs5oiXimketmN5fFVKdp uIqIPkmwDXzW2evY3NdEX DhElZaS6SgL7weDG8vBGO mu0X5hxWfMhxfUDRmWHlc IERpZmYgUXVpazsgMyBQY RNmU6CngL9kP1ziTQRbUG BhciANCjUgbWwsIFxwcm9 9EMZ5s1csdASiGBokPvjo yUWaarR5XIwIZRLJKUsUF gXaLC6oTMwMY6FYTGxLDt yiAZD8PBcypLD7v9lpjTK kk3o0VTzwPFK5sQQeyWmg gSz6ZCPky4OtxFZixBEkw IXrcCF9RVPjSDmje1ceAH KbZXazq5ZuJNwQAOFHVY1 SFS5crUB3G3eTHMGVQ3cK mDK2r6gyfPIbf5a6ZJfeK CO1kXUdl65cePeuUdkyaM O9IPhmHzgsvZ4ilGGIDII VJieMXoojhlDzDL8FWMcA XK1GhVV6a5ursWRzz2p7I RewHIG8vVwjlKIpectgrV FvhCwpju40MBI8OZUxNTf mczIwICBmbHVpZHtcZmll aPY9DGkhFehdyB3qdYFPR VBHXtxGMxrhebEmCD1QWX GIVS4TsOO1XgFymLZ5WY6 8SPHiVLBhoVMpVMxsF998 ZBVeGJnxXOg6wwNnQUOpD BabwsUeECGgnsRRKB8OXK EuylZXKqIbI5VcaIMXkE7 yf3ruRXXkCTbSXVLrK0Zp tLCwKXedF0SaIJdmCXKft y6rvKibYoNvoRDmaXMicT wxPlE4GGHwJVfqh9epDHJ kHKupj2BmNDdWHFKNUT9O BM6deRM5KSlMB4QAM7hEf RMePMdugGS4MV7OVPbGSL MDuSU2jCscjNd5d3oqnDW bm5k0WEelFCS1zOY0SwS7 EoLec8emcPGlYJtiEhjfa KEvcoM7IWaGJZRNTOuOKa DnWM2fWCwFNywHAnB6RKM bDrX9R6oZT6JXTPFGEDK5 QQq0yLY4jW12ZMMrYOKkk KQfQTyrN455IHFnSRyhXF s3vmCeIURdBsLlUAPwHRA jo0NgJ9V3YWFuGMfha6gv XTQgMDfto9XvHZjQDFRHS H9OMO9esZM4TKlEM2MGL7 vUsCycaGP7Bc6ZxTK4jBw khXh3o1ebeZQtk0s2HJpl PXM8cDR3LHGdSG77WDCsE Orbt3ytQJJgSGbjs7PtJE yNXTYDGI0RDB0erCL3ERi FT7NXHKg6Bvd5fD4VQ3dy rGp6ZEl5sTnrAtnfomPul GPiJuSNaA2afXizgO9mpB ToW1shA1WmJHCkMcPnYMv dAJMwUKxevGHeED2YI4f1 GWvyLj2fRG7xXLEcbkWFV aabLlHlW3UpZ8gwBR3sEB VtjJSuW2eas1BuAKXtweA cfr4bNWPclYQDJfVMIPM0 pZ9vkktpC4TxHLIWUIrcG SweerMRTRLIOVwIO4GdKC UNUZDVTSXsNzXWIZ1gMaV 8NgJ2LP14OagaMBBZZCEP XPdVZT1RGLPDFCYCWC3XM zKbV0bFEDUWWlOmGERKEQ FYMSYxPgGPOM2bKoh6Tnb ug4C4M4bFZXQVPmJwMBVO VPTTWNKlAI1KPFCHMVUVV C5LINXWT31YNNATYYHHE0 BVN7eOBQVdu1QimYliOdY 6MkTiGY5bZFhNK4TOW1jO DXOaNUKXWVEUKGPfRY9XP OcQRC3SRTOxBGDBTMUJJQ AxRjWYOE4wINkIAH6FYZL tLMGHFUSMPVIuQF2PIFIL GC6ILOWYYSZSY68IOIOUD XRHO5KQA8uFUFGFLYMOSe DLJdMTPV2MKLYLFQPSJL7 FTkQNClxlcGljTmVzdERv JxHyuzN0NNXzkSUjJKG5R T3jVVFmwfzfZUIeRWTcHH V4EMgdwO07wEOyDERqWMN ccGFyfVxwbGFpbiANClxz fN7mQsHkw8goaZb8EAZYV ttcaCPgogukwbI7UQNqo1 wcjFzoq1ZerFVyBV9yiPx gaQ1pMpSxGpDQIp4= Immediate Assessment Adequate cellularity (test code = 9837) Major Classification NFMC/benign (test code = 9839) Diagnosis (test code = x8gknPYjBMPzpBZ1LJRcF 34) LBle2azu0LlgWUpyWYsJL ernFFavcWdrd80nOX1zD8 3DU3hBKEhKpS1FIEafnF8 Zrg3GXQoCMKbxOPoV986j 1vmc5tgmwYbqCF2FMHsHY OsN8TuEV9eHQUnwOSgN75 oiHScSKR3ZPUvGFPucCPk XNIyKXL7OJDleDQpG9qvX WSaCH1pmjcnOInlMUxrYJ KgbBQ7YFPqnDGvJ0RjQFR yPZqoGFVmuqh5UjIvDn3h xUTgxPrdDUkgS2poyS5eM uG3LRaeL1cimY4lXWv7JT zxWFFdkXM5ruY1BVKwiZX gV9HixK7eBTIwRT3tapx8 z4kuLNF0WEfmOYZbLxZ8q qF8NQZpcZFmBKsipZZctw xmczIwXGNmMSBBLiBMeW1 plSGsx5TxCOGsKDUpaNbn kPqho9FiZQNhu8DvbP15X MKyp0MboicoYRLSnqjgZq luZSBuZWVkbGUgYXNwaXJ hdGlvbjpccGFyXHRhYlxw RVCmqMq1PfUvpTrwUmRgW FRpKABUnqDwSZEsz5JkhA hjPHMtkkWlff8oIIMhEJU qlZhgfSVaHSNnbkLIr8u0 hM8qoXauhRAryGxnkFkng KDdO9WoqWCms1T2zTP0uM 7mJFPjruZrq3EmnaNqx3b 6mDQcmM1stNUjy1VhOAOn iLEcwY9gPWUmrk4= Comment (test code = l5aslVTrKMXxpKO9VVUoE 9835) AYuf9zuy8XwnOWhqSWfNZ ifnUWxncRbko22zLG3zM6 9HS9pBWBeOsZ4ECKzxyO1 Mcl8FWMdQRFuyEIgW508m 8gkl4hqeuWfvVT4hEafUN LnyspkDvA5LIiyWVDmbfk jAVx2BQogLVNjwDZ9MUVj jNYcB5NgOFRqAX5pxto4G IZ2TZfbNSTvXrH8YOAeqO UtAIDeyRxgFGhux228JVZ 2XpTyNZCrpwVhmVdttC3c LbAqYBCFbGLdQ0YjjYPql G1owiSixzXbSVIpiRcizv R3OIJfW78edXWcCvX1x5T 3LLFtk8AuSJNuNTrubmih hKqyOKNyb2SwDKJjJYvsg 0Dzgs8woPSejF== Retained/Biomarker b9dolYVdHQWqoZT1WVDiR Testing (test code = HAno1xgd6MqaRQfmZOzLX 9838) brkTWrufXeqz23kXL8fO2 4ZF3jCNKfMbC3SSJvbvQ0 Zbg5VSXbHGPpvLCiZ910z 8ekb1nlspPcbYD4rHfwPO WzvljnTqQ5IOxdRPWozin fVMz5MQiiRTZlcOD0KIBc yNWuL9ZwEAMkHM1ishc5D IC5GAnqPPFkLvG3GHAjdL JiUDJzjFuoEAknn904XYJ 4AlCyVIAmkxNxhFpngD9x ZnMyMCBTUjogNiBTLCAyI ENCIFxwYXJ9 Informational Points g7csmVBaIBWtfSUiBcXfG (test code = 9836) OStWJWbx0iuZGYstBKvGb EwMzNcZnRuYmpcdWMxXGR mNvNgc6wlv088hFIrz6ux GMVzBsT8aNRhINGooKQmG 424GRGeQMkqt6zqk8VpAI OikOHfv5I3CFGLGRovGQQ HGWt3q6upHzHySoU1lZNz DMsjK7ivleTtxLIlFSVzX Im9qL72TPZfpU4irAYrPV sskuMkUrY4CBqyPHNuFbW 0MUUhdEIfCJXcT7wzURTf OMrsZGWzRTrkpALjIAQ2c Icos4M3lAXxsWXdwSfjYo QsSiOoJvVZl3VmBJa3rCu oM6BtZXMkSsL8qDZuHLNz DRopWXBfCAEepgI0cC27R TjuhgR2dWJce8Pqo51ah3 03aH7njCYcOII6EXHzBNW cmRVyQNMqZBZ3ZOQoqOBo A9sfTGSuTJ8silmzFBccD UfpQCHojOE0AWOczOUyM5 BaATEvHEusREWggxs3WgO oCd7apERuhMfsJDocd3pv d2qcmEVpUrp9WYZuUbGyZ hdnCSgkw4Rqv0zlXVNmly 3yDHY5nZIupCovb4F8rTB xXGRudGJsbnNiZGJcZmV0 AAylYM8mwr45JCOnOEZ0g f0nyETwiLumluHmdFHyLC irB9HkPUWbu685ZOOqD2D kFBLdb2B9asQtGeUjTLEs uWG7ppH6NWUxLSj4jSEyp kK3ntLirJXcB3mejM9qXH JgXV6uirhfd2mtOCfaWJi qONYhkFS7kjF3JAFhwPAq G9VgzP4gBUGiWHoiEKWhi ca2QzQzUj2nfTQlcLpsNQ xzYmtwYWdlXHBnbmNvbnR ccGduZGVjXHBsYWluXHBs YWluXGYwXGZzMjRccWxcc PhyaV2fYyKlYjLcFLojPA 0oTSFaO9gysPEkVYAnICR bI2rvPuVrbY6fhGjhQGeb quM9ERngO71zFZV9SKV2p yByZXBvcnRlZCBoZXJlIG 9ejULnUEOlZYVqBP6dQOO 2ZWxvcGVkIGFuZCBwZXJm f6OoSF7xQWVejTIgWCZ7X BWzp5ZhL3ZlHUY7NDNelR 5lZCBieSBVVCBNRCBBbmR qsbMhfcKVXTOpg4mrZ8mh KE7lDIolFc3qRWFuznudP WVkaWNpbmUuIFRoZXNlIH Xrn5UsKTyuzmIynb84JVZ xWU7tj7MuY4iqcEJveKt8 YUYjGUPxSLHpa5DaXMYye f85LHMbJrbsnKzkCGGqSi 1kAl9eTIHeusVnPLM4LwB XVH2qhvxltFBagSemnn2y XHBsYWluXGYyXGZzMjJcb GFuZzEwMzNcaGljaFxmMl eyAmYfIOPxJEzgH8nnTjX cZnMyMlxwYXJ9 [facility] Image-Gu[facility] FNA Oiuwqqgrqwikct3175-49-46 21:47:58 Test Item Value Reference Range Interpretation Comments Gross Description (test j1recAZqHTNnyNRQENvrI code = 7446018406) TrvxqNaQORqwUMgQ3Yclh yrTQeyML9wKW2grJvahHZ pqBBeLB5UUZItQgWdGIBm cGVydzEyMjQwXHBhcGVya BE1AABhOK6zluncHCzpUD hrEOSifgH1MVCiiWCgZ1Q jBLLnER9jfwskJZI2OChv hM6qhmDPTtwuMs0ziEYtp HtcZjFcZmNoYXJzZXQwXG TxfNsjNACpENb4tV9UFrp kB48pz7F0Rxa8APElMNWq V2UgVY5hRAFgxDSlY67XN pcvJQG7CRJASxniFYFaLE 1Ly3mrIXSanINnYSA0ZLv rdLRzUOWaEKYsXZb8VMQw YPqpdJSyTQ2vdEthXgoex Yusd0JzjDKaDZbtVPKxVJ EbYNfyQRGgFE2ILvNzAYL eCsJ0FdRoZZm6XRn9KB9D UyAiICAgNTEyMzcwMCIgO Ci5ZOrpJV0YNHMrDWQ4PE D3HVTkUKXzZoQxXAk1URP gXFxmIEFyaWFsIFxcZnMg MTAgXFxmYiBcXGZsIFxcb nK3DCFiDXqqNWKsBvLdRS BBOlxwYXIgDQpccGxhaW5 dJKPbJ42xz4CHn8DdZV1W NUb7lrVmazahfB1gTZXlz uPqIYfhnIZaT5rxS2LbOW XsHyFmN2PrT8koDF7dNIN ri1W0gmQxPfzpSFGfXPoe IERpZmYgUXVpazsgMyBQY XSeY3ZhxT7mH7ueEJXmBW BhciANCjUgbWwsIFxwcm9 4CVD4y4izyFIaKPfsBbxs tMEnptK1AKxFLGSSZIgER uFfDL6zZCuZD7XRBFhWNk loPGW1QAsbjRJ7t4iqxAO vy1l8LCjaBWJ7oKEdhUxq tAy2XVVod6ZppJFrvYBqv EAqfDF3TRSiJVmgd5niFU DsQCfsv0ZdAAqQTTUJSU6 JHT4suKA9A5zBVFNLW3pS lNA1i4hseZFqp8n9NDmbY JN8wMViu17boYymGcmmbA H5BLehFzmflR3kfVZIPJZ QAbjYIuaverYfMF9MXDaH FA8YnRH9g2vzxJUct6e4V DscUAQ5xEyckKQcmgnogP KluBdeol55XIB6GETrPQk mczIwICBmbHVpZHtcZmll aTF7SUdrMizhiE5reKDYN TZMAgxOAwbukeYxUU4GWY FAPB7VgLT9BkClrUX1GS6 4CBAgRVWlzDSoBKfjD576 QEZxLKxxULd1yoSmWESyD OiptgAwSSFyumMRNZ4MNB UgrkCNOrDqZ0WhgJSGtZ9 hk9koMHDbPQvMPQMxD4Xq vGLxQEvgM1XfMUbhENJzi h9npVpbKdMncATcwWBpgI kzZzJ5CLTfLNiga8cvWJA dLNmcj5PbTAcCXUCTKP8F JQ2eoVH5QTsDF1VVW0iPq WCdSMvztYX4MD5NJKhNIL OToDJ2vFtqmGo2f7ocsGW al5i4KMvyEAO2aFE5EhE2 ReEtj4mlmVVvLOrpZjpjk EQjetM3QNeAERKCDXsZQs XkEF6zHCbGHfyFTeN2MLO lIsC0I1fKQ7TMRXGCAPM6 OIj4bRN9uT69OXFdIJNcl SLoCCwtU743SNRuXSlnPF i1xyOfPPJmPdEkRNRuAZY pc5OzY3B5ILJvPEfmu4ot BLTrQAder8FfJUoFNXJQS T0OBG4rcHV3HNzQB1VBV7 uKgQekoHO1Rd0NlKL2pDs qvOl8p4hmjAGmi2z8VVvu VYK8vTM2ACWoIE08LNTiV Thls4zsZSAnOKhql6NnMQ vYIBLPDJ3PYV2efSR5GGu VJ2AIXQe6Npv5iW0NA0ie gIh3HDb8zLzoTivyhnBmi JGnOhQSnJ6wuVarzT8seZ MsE2tnR8PwMWVwOmPwDWo iPTLaRAmpeOIwKX4EL1g7 OXxjBw8yPD7cBVDkapJCL dvoJlNkR0YdQ9msAM8eIX KhgILeE6yso1VkJBCdpoB nhv8fFOGqfZCPLzJWPDI7 aE1orysoK7SkHQPMQFidX FjvedLSJYBGZRhUY0SqRE IEQJRSCLTkWyHBME6gFtV 9UeF5CN20HcilNQCRSPGN NXzILE1ITCJTKZOWRP2DZ tVlU4iIAXHPMnDzISDHNA HXRBPrVvQSJT2dGlk0Rwv ov0L9J6hZZSFYVvTsCVGJ THNTRQIoAY5GLZCKKPAXP G1EPXEQA51FQZPWGTAQI3 FGA9fILIPsl1UijMwrUpM 0DuSeBR5fYDiRR0RHZ6sO DWBoVMGPFZJFSWNnEY9LX PiUGJ4MPQQhSTTVBDLHWR EwDyVGSD0uQFvUXO7WTJX hJTIYZHMUDEMsPS1AMDAG VN1XAACGSXKZY17WOMLIW RHQO1BFX8uVKHIKHQEVNu CGPuEXAJ2INYNIKWWUAL0 FTkQNClxlcGljTmVzdERv IgJuygY9BSGovQAhEYK4G U8bCLDfinffILFuCRDrYI C0OKoajB71vKPwRZAbGOO ccGFyfVxwbGFpbiANClxz bF4uYzEph1igxSa9YCIEU abntKWcebhnptW0WPDpp0 xeqZvpu1VyjPNcYO7yuTk qeZ0dRiDwWoNMUd0= Immediate Assessment Adequate cellularity (test code = 9837) Major Classification NFMC/benign (test code = 9839) Diagnosis (test code = l8cpgXUeBINoaFV4EYUnJ 34) MSud5pax7ZkrKDmqEYxTJ mtoZUvoeGbde67nHU6yN4 7OU3vMCLtNqT1HCKtgzU0 Rte5UOTuEPIrpVMdR767f 2wef6pzumRuhNJ7GVXnFA PdI6RzKX5uSCLmfOPmT86 ikXFrTVJ6YCDbGJYkqMMk FLAhAOY6TMCfoXEfY2ddF KKrEG4tclgkDYacULusKV EmeSW5MDRblSPqG5PsKKW cMOhgTUHuwvy6DjFpYt5s jSXrgPgmSPagN6cfbH0hN iX0GIfkR6hfpK3lBSl3UU ccNLQvmTZ9uiP3TJCdvLR aB0GokN9sNEKdBI4ahoa7 e4riHZR7EEfkHOElHcF0j cC4EADtzAVeLUjmzNDvop xmczIwXGNmMSBBLiBMeW1 alRMmn3SaUBGlWWVkmPjb uZurp2RpTVSsf8JjjO33A IAgn1RgpqsaPEOUcqzqZe luZSBuZWVkbGUgYXNwaXJ hdGlvbjpccGFyXHRhYlxw BWVeuIr6JuTgkJgyFbUfU OVnXFAMltEdXTRzd0MpyX qbGZJizjPbyq6kWNDmXUW mwAoafPNcSTWnooWPh2o3 xQ5hjReevDAavYkgdEpkp FKmL3VfnWBpl2L7sSN5eP 3aNTTabaYni4YwkjNxz5y 0oNTnvM1iyOKby5RvPMNn uDIelG6cHGUyrq5= Comment (test code = t6tbnVZpNRRnoQQ2AMEmL 9816) HLkc5ddc5DjaZMkzUUzGM gksORcarJhtg52bVF4dA7 0DJ2fOMOuKgA1EOFmdnT8 Uut5PAYhIVRptYIjW801a 8ert3etecZrxYT7pKcmRG JwcaofFbH4NSpzFQFqysy jWYz6DHyqJAMukZX0WQQr mQZkW1ZpEARzJY2rfva9V RM1LNtpFNWcKlH0RJBgmU VyFURpqBrwCAcmx187TEB 0PoFhFHGkcaVreFyzbR9b GqYhDNLHrJEeK5ItdGDof M8ewwNwzbVoCLKsdSzppj G4LBVbO86msUUmCoY8k1I 2HAKqv6MlFUFbYHgzowgc vVvkPGVoh1FhEWLyRIokh 7Bcuh4jyDLppA== Retained/Biomarker i3jhiVLbHNMsbDB7WULxN Testing (test code = UEcd6qog7TwhQHlhUAxPM 9826) plyMMcozVysc54dIL2jJ2 3BD9eMNAvHuX3QPJmrfB9 Leq1DKXySDOtaGXgT063f 1eiw5pgivFeePN8oExfFM LdmwieYrL4ISkyGLZfcnw hOCe0GLfmUXLtnSP5NTOu aYEgS3ZkWIRvSR3zlgz5V NX5TGkiXMKvFvM5YQTqlN WxRVRlgNliNEqwk434LZY 9WnHzBQIjwwEqeCcouX6l ZnMyMCBTUjogNiBTLCAyI ENCIFxwYXJ9 Informational Points z8fkwKOlIIGvfAAbApNsR (test code = 9836) GZlJMPkt7reYGDudTSsYy EwMzNcZnRuYmpcdWMxXGR jGmNnb7yhm818tTQfb1gy HXHnWpS6nOQhLHKecINuJ 821VYQlELqny4mwh0NmQO QxlYEpz7G1LAUAXKqcBAD CYKj8u0ssSlIcKzM6iPTv LPdvO8jjbpBnjZMvZKZxA Ff4qG88TAGmhK3ybKKgQT inepCuAhY3BTdsWONiIvC 0AGJeuMLiZZHoV9dyQCFw DLwbRDIkUFmwbHMePIG6u Otid0Y9eRAciRUwlLdlIw FcYhNkShNFq9GkLYq9eXo mW3SiTJCcJzT5mBSlBPEd WJswZLSkWRRoitV5tX38X OkvpaC9mPKmj8Khi46ig6 75hP6hpSUxEOA4MSHbVAE yqSObGYTcKLN1GMZreUFs O6lgDMMnOJ7mlrliXGhaB WfgQRLzzCQ1WLPfkRCvQ7 WuIGFkASpqATCkscx0LdO oEh9szNIazVglOTmit1do b7njvOJzUml9TFRiSxRwR cqdTPijp2Yif0spEHWzni 4hKID9tZFmtFhfc2N1gPS xXGRudGJsbnNiZGJcZmV0 FRjfZR0clu40XAXyPNL7u m2edSYtwEryfyYuvVSpWO izN9JkSMDze997FFKsM7S aTQPac6C7xrSiYcFzNQPu dKK9qzE6ESFgLId9zNWzz rL0xuCpoXBfI0egsS0xLA EnBP2iexgid8lzXVkoFHg oUFEjdWE1qvK1VDLudFPe I8WeeN3rECGiXKxuEKBqd gc1KoQmWo9ihZNzcQivVF xzYmtwYWdlXHBnbmNvbnR ccGduZGVjXHBsYWluXHBs YWluXGYwXGZzMjRccWxcc ValfR6fBdNgTeJbBVggVT 9iPPFwI6jcbVAwQBVeGWC wA9ktVdGsrI0eeEwpUMdh fxP8LFjjO91kIKL9LAP8f yByZXBvcnRlZCBoZXJlIG 1onHAhMKMrJVNrLH0zSOP 2ZWxvcGVkIGFuZCBwZXJm z8XlHR4vKBWkfVBgMNB9N EQth1OjW1AgTRW5BDLcrD 5lZCBieSBVVCBNRCBBbmR gzgPhcjWZGQNlx6rtQ8od MI7lSZbgOw1jQVYwcbwiR WVkaWNpbmUuIFRoZXNlIH Cnp5PrVDoetzNaoz23FVG iKL2ko5XqN9yydBGxfIm4 GJFbRMAiWXZnd1TmAKVjy h58KQDnRrjsoWldWKOwXj 9nTx4wZPRuaoTwQCT5CyB OJD2kskhwjYLqhBparl2v XHBsYWluXGYyXGZzMjJcb GFuZzEwMzNcaGljaFxmMl xlUeXlQJSaSFvoX1jtZgT cZnMyMlxwYXJ9 [facility] COVID-19 (UTE-CoV-2) PCR Gurkyhklvwsd5162-34-67 11:21:43 Test Item Value Reference Interpretation Comments Range COVID19 SARS Pre-Out of OR Procedure Indication (test code = 05485) COVID19 SARS Result Not Detected Not Detected (test code = 52402-1) COVID19 SARS SARS-CoV-2 NOT Detected. Interpretation (test Reference Range: Not code = 78621) Detected Methodology: The Haney RealTime SARS-CoV-2 assay is a qualitative real-time reverse mathematics department chair polymerase chain reaction (wedding makeup artist-PCR) test to detect RNA from SARS-CoV-2 in nasal, nasopharyngeal and oropharyngeal swabs from patients with signs and symptoms of infection who are suspected of COVID-19 by their health care provider. The Haney RealTime SARS-CoV-2 performed on the Moncai000 System is a dual target assay with [...] CLIA-certified, high-complexity Molecular Diagnostics Laboratory (MDL) at [facility] under the Food and Drug Administration (FDA) s Emergency Use Authorization. Factsheet for patients: https://www.[facility].org/ AbbottFactSheetPatientsFact sheet for healthcare providers: https://www.[facility].org/ AbbottFactSheetHCP Test performed by:[facility] Molecular Diagnostic [address] [place] [address] [facility] (UTE-CoV-2) PCR Poxtksyklxrd0720-97-03 11:21:43 Test Item Value Reference Interpretation Comments Range COVID19 SARS Pre-Out of OR Procedure Indication (test code = 77034) COVID19 SARS Result Not Detected Not Detected (test code = 02843-0) COVID19 SARS SARS-CoV-2 NOT Detected. Interpretation (test Reference Range: Not code = 72803) Detected Methodology: The Haney RealTime SARS-CoV-2 assay is a qualitative real-time reverse mathematics department chair polymerase chain reaction (wedding makeup artist-PCR) test to detect RNA from SARS-CoV-2 in nasal, nasopharyngeal and oropharyngeal swabs from patients with signs and symptoms of infection who are suspected of COVID-19 by their health care provider. The Haney RealTime SARS-CoV-2 performed on the demandmart System is a dual target assay with [...] CLIA-certified, high-complexity Molecular Diagnostics Laboratory (MDL) at [facility] under the Food and Drug Administration (FDA) s Emergency Use Authorization. Factsheet for patients: https://www.[facility].org/ AbbottFactSheetPatientsFact sheet for healthcare providers: https://www.[facility].org/ AbbottFactSheetHCP Test performed by:[facility] Molecular Diagnostic [address] [place] [address] [facility] COVID-[facility] (UTE-CoV-2) PCR Zusfzrqbliya2411-63-74 11:21:43 Test Item Value Reference Interpretation Comments Range COVID19 SARS Pre-Out of OR Procedure Indication (test code = 64425) COVID19 SARS Result Not Detected Not Detected (test code = 24045-4) COVID19 SARS SARS-CoV-2 NOT Detected. Interpretation (test Reference Range: Not code = 58981) Detected Methodology: The Haney RealTime SARS-CoV-2 assay is a qualitative real-time reverse mathematics department chair polymerase chain reaction (wedding makeup artist-PCR) test to detect RNA from SARS-CoV-2 in nasal, nasopharyngeal and oropharyngeal swabs from patients with signs and symptoms of infection who are suspected of COVID-19 by their health care provider. The Haney RealTime SARS-CoV-2 performed on the Moncai000 System is a dual target assay with [...] CLIA-certified, high-complexity Molecular Diagnostics Laboratory (MDL) at [facility] under the Food and Drug Administration (FDA) s Emergency Use Authorization. Factsheet for patients: https://www.[facility].org/ AbbottFactSheetPatientsFact sheet for healthcare providers: https://www.[facility].org/ AbbottFactSheetHCP Test performed by:[facility] Molecular Diagnostic [address] [place] [address] [facility] CampusCoccidioides En6192-45-11 17:05:38 Test Item Value Reference Range Interpretation Comments Cocci Comp Fix-Cano Negative Negative (test code = 5096-3) Cocci IgG-Cano Negative Negative (test code = 76348-3) Cocci IgM-Belle Negative Negative A negative co mplement (test code = fixation and 94132-3) immunodiffusion (CompF/ImmD iff) result knowles s not exclude the panda gnosis ofcoccidioidomy cosis. Repeat testing by CompF/ImmDiff i n 2-3weeks if clinically i ndicated. Test Performed by:[facility] [employer] [id number] [employer] [place], [place] [address]Zut Director: Vladislav Cannon M.D. Ph. D.; CLIA# [id number] [facility] Campus[facility]occidioides Ar8142-35-54 17:05:38 Test Item Value Reference Range Interpretation Comments Cocci Comp Fix-Cano Negative Negative (test code = 5096-3) Cocci IgG-Cano Negative Negative (test code = 56943-7) Cocci IgM-Cano Negative Negative A negative co mplement (test code = fixation and 95892-5) immunodiffusion (CompF/ImmD iff) result knowles s not exclude the panda gnosis ofcoccidioidomy cosis. Repeat testing by CompF/ImmDiff i n 2-3weeks if clinically i ndicated. Test Performed by:[facility] [employer] [id number] [employer] [place], [place] [address]Sfq Director: Vladislav Cannon M.D. Ph. D.; CLIA# [id number] [facility] CampusCoccidioides Fe0250-23-49 17:05:38 Test Item Value Reference Range Interpretation Comments Cocci Comp Fix-Cano Negative Negative (test code = 5096-3) Cocci IgG-Cano Negative Negative (test code = 65882-3) Cocci IgM-Cano Negative Negative A negative co mplement (test code = fixation and 61622-7) immunodiffusion (CompF/ImmD iff) result knowles s not exclude the panda gnosis ofcoccidioidomy cosis. Repeat testing by CompF/ImmDiff i n 2-3weeks if clinically i ndicated. Test Performed by:[facility] [employer] [id number] [employer] [place], [place] [address]Kmt Director: Vladislav Cannon M.D. Ph. D.; CLIA# [id number] [facility] CampusHistoplasma Ab Hkxqvh6618-14-07 20:14:06 Test Item Value Reference Range Interpretation Comments Histo Immuno Negative Negative A negative comp lement Ab-Cano (test code fixation and = 92011-7) immunodiffusion (CF/ID)result d oes not exclude the panda gnosis of histoplasmosis. Repeat testing by CF/I D in 1-2 weeks if clinicallyindic ated. Test Performed by:[place] [address], [place], [place] [address]Fto Direct or: Kushal Cannon M.D. Ph.D.; CLIA# [id number] Histo Mycel Negative Negative Ab-Cano (test code = 38356-1) Histo Yeast Negative Negative Ab-Cano (test code = 24957-9) [facility] CampusHistoplasma Ab Cbjvgy2698-21-65 20:14:06 Test Item Value Reference Range Interpretation Comments Histo Immuno Negative Negative A negative comp lement Ab-Cano (test code fixation and = 32776-5) immunodiffusion (CF/ID)result d oes not exclude the panda gnosis of histoplasmosis. Repeat testing by CF/I D in 1-2 weeks if clinicallyindic ated. Test Performed by:[place] [address], [place], [place] [address]Xih Direct or: Kushal Cannon M.D. Ph.D.; CLIA# [id number] Histo Mycel Negative Negative Ab-Cano (test code = 11554-2) Histo Yeast Negative Negative Ab-Cano (test code = 40781-6) [facility] CampusHistoplasma Ab Daktpk3630-46-23 20:14:06 Test Item Value Reference Range Interpretation Comments Histo Immuno Negative Negative A negative comp lement Ab-Cano (test code fixation and = 67079-8) immunodiffusion (CF/ID)result d oes not exclude the panda gnosis of histoplasmosis. Repeat testing by CF/I D in 1-2 weeks if clinicallyindic ated. Test Performed by:[place] [address], [place], [place] [address]Clp Direct or: Kushal Cannon M.D. Ph.D.; CLIA# [id number] Histo Mycel Negative Negative Ab-Cano (test code = 88937-5) Histo Yeast Negative Negative Ab-Cano (test code = 06314-1) [facility] CampusT-spot Rgqdcqggcqmp4435-98-83 17:36:08 Test Item Value Reference Range Interpretation [...] (test by:Lab Mnemonic : code = 9399) [id number] DIAGNO STICS TB, [id number] [facility] N [id number] BAYRON TIRADO MD,PHD Tspot TB NIL Passed Cont (test code = 9396) RHIANNA (test If scheduling this code = RHIANNA) lab at one of the following locations, it can only be collected on Sunday, Sunday, and Sunday due to collection/process ing restrictions:[place] - [facility] DIAG LAB [facility] [place] [facility] LAB [facility] CTRCABI - [facility] DIAG LAB [facility] CampusT-spot Ptszplvzeadf4973-80-47 17:36:08 Test Item Value Reference Range Interpretation [...] (test by:Lab Mnemonic : code = 9399) [id number] DIAGNO STICS TB, [id number] [facility] N [address]AHCIJ BAYRON TIRADO MD,PHD Tspot TB NIL Passed Cont (test code = 9396) RHIANNA (test If scheduling this code = RHIANNA) lab at one of the following locations, it can only be collected on Sunday, Sunday, and Sunday due to collection/process ing restrictions:[facility] [facility] DI[facility] LAB [facility] CTRCABI - [facility] DIAG LAB [facility] CenterT-spot Clxgxsninent6433-13-62 17:36:08 Test Item Value Reference Range Interpretation [...] (test by:Lab Mnemonic : code = 9399) [id number] DIAGNO STICS TB, [id number] [facility] N [address]SUUCE BAYRON TIRADO MD,PHD Tspot TB NIL Passed Cont (test code = 9396) RHIANNA (test If scheduling this code = RHIANNA) lab at one of the following locations, it can only be collected on Sunday, Sunday, and Sunday due to collection/process ing restrictions:[place] [facility] - [facility] CTR [facility] CenterComplete PFT (Kale, DLCO, LV) 2021-12-01 [...] mated message] (test code = 9515) The Sharetribe which generated this result transmitted ref erence range: 3.035 - 23.202 ml/(min*mmHg). The reference range was not used to int erpret this result as normal/abnormal . DLCOc_SB ml/(min*mmHg) 12.651 See_Comment [Aut omated message] (test code = 9516) The Sharetribe which generated this result transmitted ref erence [...] 9530) Lab Interpretation (test Abnormal code = 54506-4) [facility] CampusCryptococcal Ag Serum Path Review 2021-11-30 21:02:28Crypto Ag, Serum PRReviewed and Electronically signed by Pathologist:RICKEY SANTANA MD #[id number] [facility] PHOENIXUnSt. Luke[facility] Health [facility] Woodlands HospitalCryptococcal Ag Serum Path Ocajsb1177-53-20 21:02:28Crypto Ag, Serum PRReviewed and Electronically signed by Pathologist:RICKEY SANTANA MD #[id number] [facility] PHOENIXUnSt. Luke[facility] Health [facility] Woodlands HospitalCryptococcal Ag Serum Path Eeznrt5557-77-61 21:02:28Crypto Ag, Serum PRReviewed and Electronically signed by Pathologist:RICKEY SANTANA MD #[id number] [facility] PHOENIXUnSt. Luke's Health [facility] The Woodlands HospitalCryptococcal Antigen, Gmwxr7869-59-27 16:40:56 Test Item Value Reference Range Interpretation Comments Cryptococcal Ag Screen Serum Interp Negative Negative (test code = 21669-6) [facility], [facility] 2021-11-30 16:40:56 Test Item Value Reference Range Interpretation Comments Cryptococcal Ag Screen Serum Interp Negative Negative (test code = 37906-2) [facility], [facility] 2021-11-30 16:40:56 Test Item Value Reference Range Interpretation Comments Cryptococcal Ag Screen Serum Interp Negative Negative (test code = 18148-5) [facility] Total Ig Core Ab (SCREENING) (anti-HBc total Ig; HBcAb total Ig)2021-11-30 15:37:34 Test Item Value Reference Range Interpretation Comments HBcAb. (test code = 5742) Non Reactive Non Reactive [facility] Ig Core Ab (SCREENING) (anti-HBc total Ig; HBcAb total Ig)2021-11-30 15:37:34 Test Item Value Reference Range Interpretation Comments HBcAb. (test code = 5742) Non Reactive Non Reactive [facility]
[2023-04-10] MEDS ORDERED: NA CHLORIDE 0.9% 500 ML ONE ×2 (08:00→09:16)
[2023-04-10] MEDS ORDERED: FENTANYL CITR 100 MCG/2 ML ONE (08:00)
[2023-04-10] MEDS ORDERED: ONDANSETRON 4 MG/2 ML VIAL ONE (08:00)
[2023-04-10] MEDS ORDERED: FAMOTIDINE 20 MG/2 ML VIAL IV ONE (08:00)
[2023-04-10] MEDS ORDERED: NA CHLORIDE 0.9% 1,000 ML ONE (08:00)
[2023-04-10 08:15] LABS: Absolute Lymphocytes (CBC) 0.5 K/uL (0.7-4.9); Hematocrit 32.3 % (36.0-45.0); Lymphocytes % 11.1 % (15.3-44.8); MCV 88.2 fL (80-100); MPV 6.5 fL (7.6-11.3); Platelets 229 thou/uL (152-406); RBC Red Blood Cell Count 3.66 M/uL (3.86-4.86)
[2023-04-10 08:22] LABS: Protime INR 1.15
[2023-04-10 08:38] LABS: Albumin 3.4 g/dL (3.4-5.0); Bilirubin Direct 0.1 mg/dL (0-0.2); Bilirubin Indirect, Calculated 0.1 mg/dL (0.2-0.8); Bilirubin Total 0.2 mg/dL (0.2-1.0); Magnesium 2.1 mg/dL (1.6-2.4); Potassium 3.8 mEq/L (3.5-5.1); Protein, Total 6.9 g/dL (6.4-8.2)
--- NOTE | 2023-04-10 08:39 | RAD REPORT ---
EXAM DESCRIPTION: CT - Abdomen Pelvis W Contrast - 04/10/2023 8:25 am CLINICAL HISTORY: Abdominal pain COMPARISON: 2017 and January 2023 TECHNIQUE: Computed axial tomography of the abdomen pelvis was obtained. 100 cc Isovue-300 was admin istered intravenously. Oral contrast was not requested which limits evaluation of bowel and appendix All CT scans are performed using dose optimization technique as appropriate and may include automated exposure control or mA/KV adjustment according to patient size. FINDINGS: Multiple hepatic cysts are present. The largest measures 2 centimeters. Additional small b enign complex cystic masses are present. The spleen, pancreas, adrenals and kidneys appear unremarkable. No evidence of diverticulitis. Normal appendix No adnexal mass. 3.2 centimeter enhancing mass within uterus unchanged from 2018 likely benign. IMPRESSION: No acute abnormality is displayed.
--- NOTE | 2023-04-10 08:52 | RAD REPORT ---
EXAM DESCRIPTION: Harsh Single View04/10/2023 8:35 am CLINICAL HISTORY: Upper abdominal pain COMPARISON: September 2022 FINDINGS: The lungs appear clear of acute infiltrate. The heart is borderline enlarged IMPRESSION: No acute abnormalities displayed
[2023-04-10] MEDS ORDERED: MORPHINE 2 MG/ML SYR ONE (09:16)
--- NOTE | 2023-04-10 09:53 | EDPHYS ---
Physician Documentation [facility] Name: Brianne Jennings Age: 77 yrs Sex: Female : 1945 Arrival Date: 04/10/2023 Time: 07:29 Bed 6 Private MD: ED Physician Koby Elmore HPI: 04/10 07:41 This 77 yrs old Female presents to ER via Unassigned with complaints of leah Abdominal Pain. 07:41 The patient presents with abdominal pain in the upper abdomen, in the lower abdomen. leah Onset: The symptoms/episode began/occurred 2 day(s) ago. The symptoms do not radiate. Associated signs and symptoms: Pertinent positives: nausea, vomiting, and diarrhea, vomiting. The symptoms are described as crampy. Modifying factors: The symptoms are alleviated by nothing, the symptoms are aggravated by nothing. Severity of pain: At its worst the pain was mild in the emergency department the pain is unchanged. The patient has experienced similar episodes in the past. Historical: - Allergies: 07:41 Clindamycin; rs5 - PMHx: 07:41 acid reflux; COPD; Arthritis; Hypertension; Lung Cancer; rs5 - PSHx: 07:41 left lung lobe resection; rs5 - Immunization history:: Adult Immunizations unknown. - Social history:: Smoking status: Patient/guardian denies using tobacco. ROS: 07:42 Constitutional: Negative for fever, chills, and weight loss, Eyes: Negative for injury, leah pain, redness, and discharge, ENT: Negative for injury, pain, and discharge, Neck: Negative for injury, pain, and swelling, Respiratory: Negative for shortness of breath, cough, wheezing, and pleuritic chest pain, Back: Negative for injury and pain, : Negative for injury, bleeding, discharge, and swelling, MS/Extremity: Negative for injury and deformity, Skin: Negative for injury, rash, and discoloration, Neuro: Negative for headache, weakness, numbness, tingling, and seizure, Psych: Negative for depression, anxiety, suicide ideation, homicidal ideation, and hallucinations, Allergy/Immunology: Negative for hives, rash, and allergies, Endocrine: Negative for neck swelling, polydipsia, polyuria, polyphagia, and marked weight changes, Hematologic/Lymphatic: Negative for swollen nodes, abnormal bleeding, and unusual bruising, 07:42 Cardiovascular: Positive for chest pain, 07:42 Abdomen/GI: Positive for abdominal pain, Exam: 07:42 Constitutional: This is a well developed, well nourished patient who is awake, alert, leah and in no acute distress. Head/Face: Normocephalic, atraumatic. Eyes: Pupils equal round and reactive to light, extra-ocular motions intact. Lids and lashes normal. Conjunctiva and sclera are non-icteric and not injected. Cornea within normal limits. Periorbital areas with no swelling, redness, or edema. ENT: Nares patent. No nasal discharge, no septal abnormalities noted. Tympanic membranes are normal and external auditory canals are clear. Oropharynx with no redness, swelling, or masses, exudates, or evidence of obstruction, uvula midline. Mucous membranes moist. Neck: Trachea midline, no thyromegaly or masses palpated, and no cervical lymphadenopathy. Supple, full range of motion without nuchal rigidity, or vertebral point tenderness. No Meningismus. Chest/axilla: Normal chest wall appearance and motion. Nontender with no deformity. No lesions are appreciated. Cardiovascular: Regular rate and rhythm with a normal S1 and S2. No gallops, murmurs, or rubs. Normal PMI, no JVD. No pulse deficits. Respiratory: Lungs have equal breath sounds bilaterally, clear to auscultation and percussion. No rales, rhonchi or wheezes noted. No increased work of breathing, no retractions or nasal flaring. Abdomen/GI: Soft, non-tender, with normal bowel sounds. No distension or tympany. No guarding or rebound. No evidence of tenderness throughout. Back: No spinal tenderness. No costovertebral tenderness. Full range of motion. Skin: Warm, dry with normal turgor. Normal color with no rashes, no lesions, and no evidence of cellulitis. MS/ Extremity: Pulses equal, no cyanosis. Neurovascular intact. Full, normal range of motion. Neuro: Awake and alert, GCS 15, oriented to person, place, time, and situation. Cranial nerves II-XII grossly intact. Motor strength 5/5 in all extremities. Sensory grossly intact. Cerebellar exam normal. Normal gait. Psych: Awake, alert, with orientation to person, place and time. Behavior, mood, and affect are within normal limits. 08:52 ECG was reviewed by the Attending Physician. leah 09:54 Musculoskeletal/extremity: DVT Exam: No signs of deep vein thrombosis. no pain, no leah swelling, no tenderness, negative Homans' sign noted on exam, no appreciated bluish discoloration, no erythema, no increased warmth, Vital Signs: 07:31 BP 126 / 73; Pulse 64; Resp 16 S; Temp 98.6(O); Pulse Ox 94% on R/A; Weight 51.26 kg aa5 (R); 08:20 BP 130 / 70; Pulse 66; Resp 17; Pulse Ox 99% on R/A; rs5 08:30 BP 137 / 71; Pulse 70; Resp 17; Temp 98(O); Pulse Ox 99% on R/A; rs5 09:40 BP 132 / 67; Pulse 75; Resp 17; Pulse Ox 99% on R/A; rs5 10:20 BP 128 / 74; Pulse 76; Resp 18; Pulse Ox 99% on R/A; rs5 [place] Coma Score: 07:42 Eye Response: spontaneous(4). Motor Response: obeys commands(6). Verbal Response: leah oriented(5). Total: 15. MDM: 07:34 Patient medically screened. leah 07:43 HEART Score: History: Slightly Suspicious (0), ECG: Normal (0), Age: > or = 65 years leah (2), Risk Factors: > or = 3 Risk factors for atherosclerotic disease (2), [Hypercholesterolemia] [Hypertension] [+ Family HX] Troponin: < or = 1 x Normal Limit (0). The patient was not given aspirin in the Emergency Department. Administered by EMS. Differential diagnosis: Cholelithiasis costochondritis, gastritis, hiatal hernia, pancreatitis, peptic ulcer disease, pneumonia, stable angina, diverticulitis, gastritis, gastroesophageal reflux disease, Irritable bowel syndrome, non-specific abd pain, pancreatitis, Peptic Ulcer Disease, Perf. Duodenal Ulcer. DIVYA Risk Score: 1 - patient's age is greater or equal to 65 years, 1 - Three or more CAD risk factors, 1- Known CAD, TOTAL SCORE = 3. Data reviewed: vital signs, nurses notes, EMS record, lab test result(s), EKG, radiologic studies, plain films. Consideration of Admission/Observation Escalation of care including admission/observation considered. I considered the following discharge prescriptions or medication management in the emergency department Medications were administered in the Emergency Department. See MAR. Test considered but Not performed: Ultrasound no 2 d echo. Historians other than the Patient: EMS: ems well informed. Care significantly affected by the following chronic conditions: Hypertension, Cancer. 04/10 07:35 Order name: Basic Metabolic Panel; Complete Time: 08:48 04/10 07:35 Order name: CBC with Diff; Complete Time: 08:48 04/10 07:35 Order name: LFT's; Complete Time: 08:48 04/10 07:35 Order name: Magnesium; Complete Time: 08:48 04/10 07:35 Order name: NT PRO-BNP; Complete Time: 08:48 04/10 07:35 Order name: PT-INR; Complete Time: 08:48 04/10 07:35 Order name: Troponin HS; Complete Time: 08:48 04/10 07:35 Order name: Lipase; Complete Time: 08:48 leah 04/10 09:52 Order name: Troponin HS: now, if neg dc 04/10 07:35 Order name: XRAY Chest (1 view); Complete Time: 09:07 04/10 07:35 Order name: CT Abd/Pelvis - IV Contrast Only; Complete Time: 08:48 04/10 07:35 Order name: EKG; Complete Time: 07:36 04/10 07:35 Order name: Cardiac monitoring; Complete Time: 07:38 04/10 07:35 Order name: EKG - Nurse/Tech; Complete Time: 08:03 04/10 07:35 Order name: IV Saline Lock; Complete Time: 07:38 04/10 07:35 Order name: Labs collected and sent; Complete Time: 08:03 04/10 07:35 Order name: O2 Per Protocol; Complete Time: 07:38 04/10 07:35 Order name: O2 Sat Monitoring; Complete Time: 07:38 [facility] EC:52 Rate is 58 beats/min. Rhythm is regular. QRS [place] is Normal. PA interval is normal. QRS leah interval is normal. QT interval is normal. No Q waves. T waves are Normal. No ST changes noted. Clinical impression: NSR w/ Non-specific ST/T Changes, No change from prior ECG, and No evidence of ischemia. Interpreted by me. Reviewed by me. Administered Medications: 07:45 Drug: Ondansetron IVP 4 mg IVP once; over 2 minutes Route: IVP; Site: left antecubital; rs5 08:00 Follow up: Response: No adverse reaction rs5 08:00 Drug: fentaNYL (PF) IVP 50 mcg IVP once Route: IVP; Site: left antecubital; rs5 08:15 Follow up: Response: No adverse reaction; Pain is decreased rs5 08:01 Drug: NS 0.9% IV 500 ml IV at bolus once Route: IV; Rate: bolus; Site: left antecubital;rs5 08:15 Follow up: Response: No adverse reaction rs5 08:01 Drug: NS 0.9% IV 1000 ml IV at 125 ml/hr continuous Route: IV; Rate: 125 ml/hr; Site: rs5 left antecubital; 08:15 Follow up: Response: No adverse reaction rs5 08:01 Drug: Famotidine IVP 20 mg IVP once; dilute with 10 mL 0.9% NaCl; give over 2 minutes rs5 Route: IVP; Site: left antecubital; 08:15 Follow up: Response: No adverse reaction rs5 09:05 Drug: NS 0.9% IV 500 ml IV at bolus once Route: IV; Rate: bolus; Site: left antecubital;rs5 09:05 Drug: morphine IVP or IV 2 mg IVP once over 4 mins Route: IVP; Infused Over: 4 mins; rs5 Site: left antecubital; 09:16 Follow up: Response: No adverse reaction; Pain is decreased rs5 10:12 Drug: Aspirin PO Chewable Tablet 81 mg PO once Route: PO; rs5 10:30 Follow up: Response: No adverse reaction rs5 Disposition Summary: 04/10/23 09:53 Discharge Ordered Notes: Location: Home leah Problem: new leah Symptoms: have improved leah Condition: Stable leah Diagnosis - Epigastric abdominal tenderness leah Followup: leah - With: Private Physician - When: 2 - 3 days - Reason: Recheck today's complaints, Continuance of care, Re-evaluation by your physician Followup: leah - With: Baldemar Hamilton MD - When: 2 - 3 days - Reason: Recheck today's complaints, Re-evaluation by your physician Discharge Instructions: - Discharge Summary Sheet leah - Abdominal Pain, Adult leah - Abdominal Pain, Adult, [id number] leah - Aspirin and Your Heart leah Forms: - Medication Reconciliation Form leah - Thank You Letter leah - Antibiotic Education leah - Prescription Opioid Use leah - Patient Portal Instructions leah - Leadership Thank You Letter leah Prescriptions: - Pepcid 20 mg Oral Tablet - take 1 tablet ORAL route every 12 hours for 10 days; 20 tablet; Refills: 0, [facility] Product Selection Permitted - dicyclomine 20 mg Oral tablet - take 1 tablet ORAL route 4 times per day; 28 tablet; Refills: 0, Product [facility] Selection Permitted Signatures: Dispatcher [employer] Koby Watts MD MD cha Sotelo, Ricky RN RN rs5
--- NOTE | 2023-04-10 09:53 | ER ---
Nurse's Notes [facility] Name: Brianne Jennings Age: 77 yrs Sex: Female : 1945 Arrival Date: 04/10/2023 Time: 07:29 Bed 6 Private MD: Diagnosis: Epigastric abdominal tenderness Presentation: 04/10 07:31 Chief complaint: EMS states: RUQ and LUQ abdominal pain started three days ago with N/V.rs5 07:31 Method Of Arrival: EMS: [facility] rs5 07:31 Coronavirus screen: cough unrelated to allergies, nausea, vomiting. Ebola Screen: No rs5 symptoms or risks identified at this time. Initial Sepsis Screen: Does the patient meet any 2 criteria? No. Patient's initial sepsis screen is negative. Does the patient have a suspected source of infection? No. Patient's initial sepsis screen is negative. Risk Assessment: Do you want to hurt yourself or someone else? Patient reports no desire to harm self or others. Onset of symptoms was April 10, 2023. 07:31 Acuity: LYNNE 3 rs5 Triage Assessment: 07:41 General: Appears in no apparent distress. uncomfortable, Behavior is calm, cooperative. rs5 Pain: Complains of pain in RUQ and LUQ abdominal pain. Historical: - Allergies: 07:41 Clindamycin; rs5 - PMHx: 07:41 acid reflux; COPD; Arthritis; Hypertension; Lung Cancer; rs5 - PSHx: 07:41 left lung lobe resection; rs5 - Immunization history:: Adult Immunizations unknown. - Social history:: Smoking status: Patient/guardian denies using tobacco. Screenin:35 [facility] ED Fall Risk Assessment (Adult) History of falling in the last 3 months, rs5 including since admission No falls in past 3 months (0 pts) Confusion or Disorientation No (0 pts) Intoxicated or Sedated No (0 pts) Impaired Gait No (0 pts) Mobility Assist Device Used No (0 pt) Altered Elimination No (0 pt) Score/Fall Risk Level 0 - 2 = Low Risk Oriented to surroundings, Maintained a safe environment. 07:35 Abuse screen: Denies threats or abuse. Nutritional screening: No deficits noted. rs5 Tuberculosis screening: No symptoms or risk factors identified. Assessment: 07:35 General: Appears in no apparent distress. uncomfortable, Behavior is calm, cooperative. rs5 07:35 Pain: Complains of pain in RUQ and LUQ abdominal pain Pain does not radiate. Pain rs5 currently is 9 out of 10 on a pain scale. Quality of pain is described as aching, Pain began 2-3 days ago. Is continuous. Neuro: Level of Consciousness is awake, alert, obeys commands, Oriented to person, place, time, situation. Cardiovascular: Heart tones S1 S2 present Rhythm is regular. Respiratory: Airway is patent Respiratory effort is even, unlabored, Respiratory pattern is regular, symmetrical, Breath sounds are clear bilaterally. GI: Bowel sounds present X 4 quads. Abd is soft and non tender X 4 quads. Reports nausea, vomiting. : No signs and/or symptoms were reported regarding the genitourinary system. EENT: No signs and/or symptoms were reported regarding the EENT system. Derm: Skin is pink, warm \T\ dry. Musculoskeletal: Range of motion: intact in all extremities. 08:15 Pain: Complains of pain in RUQ and LUQ abdomen Pain does not radiate. Pain currently is rs5 5 out of 10 on a pain scale. Quality of pain is described as aching, Is continuous. 08:50 Pain: Complains of pain in RUQ and LUQ abdomen Pain does not radiate. Pain currently is rs5 8 out of 10 on a pain scale. Quality of pain is described as aching, Is continuous. 08:50 Reassessment: Provider notified pt is experiencing pain. rs5 09:15 Pain: Complains of pain in LUQ and RUQ pain Pain does not radiate. Pain currently is 2 rs5 out of 10 on a pain scale. Quality of pain is described as aching, Is continuous. 10:20 Reassessment: Patient and/or family updated on plan of care and expected duration. Pain rs5 level reassessed. Patient is alert, oriented x 3, equal unlabored respirations, skin warm/dry/pink. 10:20 Respiratory: Respiratory effort is even, unlabored, Respiratory pattern is regular, rs5 symmetrical. Vital Signs: 07:31 BP 126 / 73; Pulse 64; Resp 16 S; Temp 98.6(O); Pulse Ox 94% on R/A; Weight 51.26 kg aa5 (R); 08:20 BP 130 / 70; Pulse 66; Resp 17; Pulse Ox 99% on R/A; rs5 08:30 BP 137 / 71; Pulse 70; Resp 17; Temp 98(O); Pulse Ox 99% on R/A; rs5 09:40 BP 132 / 67; Pulse 75; Resp 17; Pulse Ox 99% on R/A; rs5 10:20 BP 128 / 74; Pulse 76; Resp 18; Pulse Ox 99% on R/A; rs5 [place] Coma Score: 07:42 Eye Response: spontaneous(4). Motor Response: obeys commands(6). Verbal Response: leah oriented(5). Total: 15. ED Course: 07:30 Patient arrived in ED. aa5 07:30 Arm band placed on. aa5 07:32 Maintain EMS IV. Dressing intact. Good blood return noted. Site clean \T\ dry. Gauge \T\ rs 5 site: 20g LAC. 07:33 Koby Elmore MD is Attending Physician. leah 07:35 Patient has correct armband on for positive identification. Bed in low position. Call rs5 light in reach. Side rails up X2. 07:38 Jameel Lang, RN is Primary Nurse. rs5 07:41 Triage completed. rs5 08:27 CT Abd/Pelvis - IV Contrast Only In Process Unspecified. EDMS 08:37 XRAY Chest (1 view) In Process Unspecified. EDMS 09:55 Baldemar Hamilton MD is Referral Physician. leah 10:50 No provider procedures requiring assistance completed. rs5 10:53 IV discontinued, intact, bleeding controlled, No redness/swelling at site. Pressure ap3 dressing applied. Administered Medications: 07:45 Drug: Ondansetron IVP 4 mg IVP once; over 2 minutes Route: IVP; Site: left antecubital; rs5 08:00 Follow up: Response: No adverse reaction rs5 08:00 Drug: fentaNYL (PF) IVP 50 mcg IVP once Route: IVP; Site: left antecubital; rs5 08:15 Follow up: Response: No adverse reaction; Pain is decreased rs5 08:01 Drug: NS 0.9% IV 500 ml IV at bolus once Route: IV; Rate: bolus; Site: left antecubital;rs5 08:15 Follow up: Response: No adverse reaction rs5 08:01 Drug: NS 0.9% IV 1000 ml IV at 125 ml/hr continuous Route: IV; Rate: 125 ml/hr; Site: rs5 left antecubital; 08:15 Follow up: Response: No adverse reaction rs5 08:01 Drug: Famotidine IVP 20 mg IVP once; dilute with 10 mL 0.9% NaCl; give over 2 minutes rs5 Route: IVP; Site: left antecubital; 08:15 Follow up: Response: No adverse reaction rs5 09:05 Drug: NS 0.9% IV 500 ml IV at bolus once Route: IV; Rate: bolus; Site: left antecubital;rs5 09:05 Drug: morphine IVP or IV 2 mg IVP once over 4 mins Route: IVP; Infused Over: 4 mins; rs5 Site: left antecubital; 09:16 Follow up: Response: No adverse reaction; Pain is decreased rs5 10:12 Drug: Aspirin PO Chewable Tablet 81 mg PO once Route: PO; rs5 10:30 Follow up: Response: No adverse reaction rs5 Medication: 07:35 VIS not applicable for this client. rs5 Outcome: 09:53 Discharge ordered by . leah 10:50 Discharged to home ambulatory, rs5 10:50 Condition: stable 10:50 Discharge instructions given to patient, Instructed on discharge instructions, follow up and referral plans. Demonstrated understanding of instructions, follow-up care, Prescriptions given X 10:56 Patient left the ED. aa5 Signatures: Dispatcher [employer] EDKoby Braden MD MD cha Calderon, Audri, RN RN aa5 Angeli Mahoney RN RN ap3 Jameel Lang RN RN rs5 Corrections: (The following items were deleted from the chart) 07:40 07:31 Temp 98.6F Oral; 51.26 kg Reported; aa5 aa5 08:05 07:35 Cardiovascular: Heart tones S1 S2 present Rhythm is regular rs5 rs5
[2023-04-10] MEDS ORDERED: ASPIRIN 81 MG CHEWABLE TABLET ONE (10:26)
--- NOTE | 2023-04-11 11:59 | EKG ---
Test Date: 2023-04-10 Test Time: 07:45:16 Roofing Laborer: JINNY MEASUREMENT RESULTS: Intervals: Rate: 58 GA: 166 QRSD: 98 QT: 442 QTc: 433 [place]: P: 74 GA: 166 QRS: 83 T: 68 INTERPRETIVE STATEMENTS: Sinus bradycardia Incomplete right bundle branch block Borderline ECG Compared to ECG 01/19/2023 13:17:52 No significant changes Electronically Signed On 04-11-23 11:56:12 CDT by Baldemar Hamilton
== END 2023-04-10 10:56 | disposition home or self-care (01) ==
LOC: ER 07:29
DX: R10.816 Epigastric abdominal tenderness (principal); R11.2 Nausea with vomiting, unspecified; R07.9 Chest pain, unspecified; J44.9 Chronic obstructive pulmonary disease, unspecified; I10 Essential (primary) hypertension; Z88.3 Allergy status to other anti-infective agents; Z85.118 Personal history of other malignant neoplasm of bronchus and lung
CPT/HCPCS: 93005; 85025; 80048; 36415; 83735; 85610; 80076; 84484 ×2; 83690; 83880; 74177; 71045; Q9967; J3010; J2270; J2405; J7040 ×2; J7030

== ENCOUNTER 2023-04-11 02:55 | Emergency (ER) | payer OTHER ==
--- OUTSIDE RECORDS SUMMARY | 2023-04-11 03:03 | XMS REPORT | Clinical Summary ---
:1945 Author Organization [facility] MD [facility] Address [address] [place] [address] Care Team Providers Name Role Phone Sheba Velez Unavailable Clay Ahumada MD Unavailable Sudeep Crouch MD Primary Care Provider [phone] Guanaco Henderson MD Unavailable Keaton Rodriguez MD Unavailable Kaylie Mota MD [...] col we previously ordered. Sent to her [facility] pharmacy. Constipation 05/09/2022 Last Assessment & Plan: [...] I have put in a referral for shopper marketing manager to give her a call to assist [...] Management Mauri Lackey MD Postoperative pain [facility] [facility] Main dg, 4th [place] [address] 03/09/2023 Refill Pain Management Mauri Lackey MD Postoperative pain [facility] [facility] Main dg, 4th [place] [address] 02/12/2023 Telemedicine Internal Medicine Keaton Rodriguez, Cerebra l venous 8:15 AM Center - Hematology sinus thrombosis CDT [address] [facility], 6th [place] [address] 02/10/2023 Refill Pain Management Cent er Mauri Barr MD Postoperative pain [address] Main Bldg, 4th [place] [address] 02/05/2023 Telemedicine Thoracic Center - Moncho Terrell, Adenoca rcinoma, NOS 11:00 AM Medical Oncology MD Sudeep of upper lobe, lung CDT [address] <Left> Main Bldg, 9th [place] [address] 02/02/2023 Ancillary MD Iam Ambrose, Adenocarc inoma, NOS 12:20 PM Procedure City Sofy Brizuela, PA of upper lobe, lung CDT [address] [facility] <Left> South 2nd [place] [address] 02/02/2023 Telephone Thoracic Center - Lucia Machado Medical Oncology [place], [place] [address] Main Bldg, 9th [place] [address] 02/02/2023 Travel 01/27/2023 Ancillary Image Library Annabel, Adenocarcinoma, NOS 8:00 PM Procedure [address] Sofy E, PA of upper lo be, lung CDT [place] <Left> [place] [address] 01/27/2023 Orders Only Thoracic Center - Annabel Adenocarci noma, NOS Medical Oncology Sofy E, PA of upper lobe, lung [address] <Left> (Primary Dx) Main Bldg, 9th [place] [address] 01/23/2023 Orders Only Thoracic Center - Annabel Adenocarci noma, NOS Medical Oncology Sofy E, PA of upper lobe, lung [address] <Left> (Primary Dx) Main Bldg, 9th [place] [address] 01/22/2023 Orders Only Thoracic Center - Annabel Adenocarci noma, NOS Medical Oncology Sofy E, PA of upper lobe, lung [address] <Left> (Primary Dx) Main Bldg, 9th [place] [address] 01/16/2023 Ancillary MD Iam Reid, Cerebral venous 8:15 AM Procedure City Mona Vaughn, sinus thrombosis CDT [address] [facility] ELECTRIC KNIFE OPERATOR South 2nd [place] [address] 01/16/2023 Travel 01/12/2023 Telemedicine Gastrointestinal Fernandez, Seth Liver enzy mes level 8:00 AM Eulalio Montenegro MD above reference CDT Gastroenterology, range Hepatology & Nutriti on [address] Main Bldg, 7th [place] [address] 01/10/2023 Telephone Colorectal Center - Bruna Albarran, Medical Oncology [place] [address] Main Bldg, 7th [place] [address] 01/09/2023 Travel 11/20/2022 Hospital Encounter Pain Management Mauri Lackey MD Postoperative pain 3:[address] Discharge Disposition: Home CDT - Main Bldg, 4th Floor 11/20/2022 Elevator A 11:59 [place] [address] CDT [phone] 11/11/2022 Refill Pain Management Mauri Lackey MD Postoperative pain [address] Main Bldg, 4th [place] [address] 11/09/[address] Imaging Joanna Landon MD [address] [facility], 7th [place] [address] 11/08/2022 Orders Only Internal Medicine [place], Cerebral v enous Center - Hematology Mona Vaughn, sinus thrombosis [address] ELECTRIC KNIFE OPERATOR [facility], 6th [place] [address] 11/06/2022 Telemedicine Thoracic Center - Moncho Terrell, Adenoca rcinoma, NOS 10:00 AM Medical Oncology MD Sudeep of upper lobe, lung CDT [address] <Left> Main Bldg, 9th [place] [address] 11/02/2022 Ancillary Josephine Barry Encoun ter for 9:55 AM Procedure City ELECTRIC KNIFE OPERATOR follow-up CDT [address] [facility] examinatio n after South completed treatment 2nd [place] [address] neopla sm 11/02/2022 Travel 10/25/2022 Orders Only Internal Medicine [place], Cerebral v enous [place] - Hematology Mona J, sinus thrombosis [address] [facility], 6th [place] [address] 10/24/2022 Refill Internal Medicine [place], Cerebral v enous [place] - Hematology Mona J, sinus thrombosis [address] [facility], 6th [place] [address] 10/07/2022 Refill Pain Management Cent er Mauri Barr MD Postoperative pain [address] Main Bldg, 4th [place] [address] 09/29/2022 Telephone Thoracic Center - Annabel, Medical Oncology STORM Spencer [address] Main Bldg, 9th [place] [address] 09/29/2022 Telephone Thoracic Center - Cande, Medical Oncology VALE Quintana [address] Main Bldg, 9th [place] [address] 09/22/2022 Orders Only Josephine Carvajal [place] - Thoracic ELECTRIC KNIFE OPERATOR Surgical Oncology [address] 3rd [place] [address] 09/12/2022 Consult Gastrointestinal Seth Fernandez Elevated l iver enzymes level (Primary Dx); 9:30 AM Eulalio Montenegro MD Increased liver function CDT Gastroenterology, Hepatology & Nutriti on [address] Main Bldg, 7th [place] [address] 09/12/2022 Hospital Encounter Diagnostic Laboratory Annabel, Adenocarcinoma, NOS of upper lobe, lung <Left> 8:40 AM Center Sofy Brizuela PA Discharge Disposition: Home CDT - [address] 09/12/2022 Main Bldg, Elevator [place] 11:59 [place] [address] CDT 09/12/2022 Travel 09/04/2022 Orders Only Thoracic Center - Norman Mendez Adenocar cinoma, NOS Medical Oncology of upper lobe, lung [address] <Left> (Primary Dx) Main Bldg, 9th Floor Elevator B [place] [id number] 09/01/2022 Hospital Encounter Pain Management Cent er Mauri Barr MD Postoperative pain 11:[address] Discharge Disposition: Home CDT - Main Bldg, 4th Floor 09/01/2022 Elevator A 11:59 PM [place] [id number] CDT [phone] 09/01/2022 Refill Pain Management Cent er Mauri Barr MD Postoperative pain [address] Main Bldg, 4th Floor Elevator A [place] [id number] 08/30/2022 Telephone Thoracic Center - Cyndy Anglin Medical Oncology Rohith, RN [address] Main Bldg, 9th Floor Elevator B [place] [id number] 08/21/2022 Telemedicine Thoracic Center - Moncho Terrell, Postope rative pain; 3:20 PM Medical Oncology MD Sudeep Adenocarcinoma, NOS of upper lobe, lung <Left> SAFETY NET MAKER [address] Main Bldg, 9th [place] [address] 08/21/2022 Travel 08/15/2022 Orders Only Thoracic Center - Annabel, Adenocarci noma, NOS Medical Oncology Sofy Brizuela, PA of upper lobe, lung [address] <Left> (Primary Dx) Main Bldg, 9th [place] [address] 08/14/2022 Travel 08/10/2022 Ancillary Image Library Annabel, Adenocarcinoma, NOS 8:05 PM Procedure [address] Sofy Brizuela, PA of upper lo be, lung SAFETY NET MAKER [place] <Left> [place] [address] 08/10/2022 Ancillary Image Library Annabel, Adenocarcinoma, NOS 8:00 PM Procedure [address] Sofy Brizuela, PA of upper lo be, lung SAFETY NET MAKER [place] <Left> [place] [address] 08/10/2022 Orders Only Thoracic Center - Annabel, Adenocarci noma, NOS Medical Oncology Sofy Brizuela, PA of upper lobe, lung [address] <Left> (Primary Dx) Main Bldg, 9th [place] [address] 08/09/2022 Refill Thoracic Center - Annabel, Adenocarci noma, NOS of upper lobe, lung <Left>; Medical Oncology STORM Spencer Nausea [address] Main Bldg, 9th [place] [address] 08/07/2022 Orders Only Thoracic Center - Annabel, Adenocarci noma, NOS Medical Oncology Sofy Brizuela PA of upper lobe, lung [address] <Left> (Primary Dx) Main Bldg, 9th [place] [address] 08/07/2022 Telephone Thoracic Center - Holly Barragan Medical labeler [address] Main Bldg, 9th [place] [address] 08/07/2022 Orders Only Thoracic Center - Annabel Medical Oncology STORM Spencer [address] Main Bldg, 9th [place] [address] 08/04/2022 Hospital Encounter Pain Management Cent Mauri Hobson MD Postoperative pain (Primary Dx); 10:[address] Adenocarcinoma, NOS of upper lobe, lung <Left> SAFETY NET MAKER - Main Bldg, 4th Floor Discharge Disposition: Home 08/04/2022 Elevator A 11:[address] [phone] 08/04/2022 Telephone Thoracic Center - Annabel Medical Oncology STORM Spencer [address] Main Bldg, 9th [place] [address] 08/04/2022 Travel 08/02/2022 Ancillary MD Iam Ambrose, Adenocarc inoma, NOS 1:30 PM Procedure [facility] STORM Spencer of upper lobe, lung SAFETY NET MAKER [address] [facility] <Left> South 2nd [place] [address] 08/02/2022 Travel 07/31/2022 Office Visit Internal Medicine Keaton Rodriguez Long-te rm use of anticoagulants (Primary Dx); 8:45 AM Center - Hematology Cerebral venous sinus thromb osis; SAFETY NET MAKER [address] Elevated liver enzymes level [facility], 6th [place] [address] 07/31/2022 Orders Only Neuror[facility], [address] [place] [address] 07/31/2022 Orders Only Thoracic Center - Annabel, Nausea (Pr imary Dx); Medical Oncology STORM Spencer Adenocarcinoma, NOS of upper lobe, lung <Left> [address] Main Bldg, 9th [place] [address] 07/31/2022 Orders Only Thoracic Center - Annabel Adenocarci noma, NOS Medical Oncology STORM Spencer of upper lobe, lung [address] <Left> (Primary Dx) Main Bldg, 9th [place] [address] 07/31/2022 Travel 07/28/2022 Orders Only Thoracic Center - Annabel, Medical Oncology STORM Spencer [address] Main Bldg, 9th [place] [address] 07/27/2022 Orders Only Thoracic Center - Josephine Modi, Adenoca rcinoma, NOS Surgical Oncology ELECTRIC KNIFE OPERATOR of upper lobe, lung [address] <Left> Main Bldg, 9th [place] [address] 07/27/2022 Orders Only Thoracic Center - Josephine Modi, Adenoca rcinoma, NOS Surgical Oncology ELECTRIC KNIFE OPERATOR of upper lobe, lung [address] <Left> (Primary Dx) Main Bldg, 9th [place] [address] 07/04/2022 Telemedicine Thoracic Center - Moncho Terrell, Adenoca rcinoma, NOS 11:00 AM Medical Oncology MD Sudeep of upper lobe, lung SAFETY NET MAKER [address] <Left> Main Bldg, 9th [place] [address] 07/04/2022 Orders Only Thoracic Center - Angela Ambrose, NOS Medical Oncology Sofy E, PA of upper lobe, lung [address] <Left> (Primary Dx) Main Bldg, 9th [place] [address] 06/30/2022 Telemedicine Jim Thayer, Postopera tive pain (Primary Dx); 10:00 AM [place] - Thoracic MD Lugo inoma, NOS of upper lobe, lung <Left>; SAFETY NET MAKER Surgical Oncology Encounter for follow-up exam ination after completed treatment for malignant neoplasm [address]rd [place] [address] 06/29/2022 Ancillary Image Library Annabel, Adenocarcinoma, NOS 8:00 PM Procedure [address] Sofy E, PA of upper lo be, lung SAFETY NET MAKER [place] <Left> [place] [address] 06/29/2022 Orders Only Thoracic Center - Angela Ambrose, NOS Medical Oncology Sofy E, PA of upper lobe, lung [address] <Left> (Primary Dx) Main Bldg, 9th [place] [address] 06/28/2022 Ancillary Image Library Moncho Terrell, Cancer 8:00 PM Procedure [address] Sheets MD [place] [address] 06/26/2022 Ancillary Josephine Barry, Adenoc arcinoma, NOS 9:15 AM Procedure [place] ELECTRIC KNIFE OPERATOR of upper lobe, lung SAFETY NET MAKER [facility] [facility] <Left> [facility] 2nd [place] [address] 06/26/2022 Travel 06/09/2022 Orders Only Paula Tate [place] - Thoracic ELECTRIC KNIFE OPERATOR Surgical Oncology [address] [place] [address] 05/31/2022 Telephone Thoracic Center - Josephine Modi, Surgical Oncology ELECTRIC KNIFE OPERATOR [address] Main Bldg, 9th [place] [address] 05/25/2022 Anesthesia Event MAIN OR Ellaluisi, 7:12 AM Nicole Rivas [place] [address] Diamante, TINA Ferguson 05/25/2022 Surgery MAIN OR Jim Hernadez, ROBOTIC (RATS) (SI) 7:00 AM Nicole Martinez MD LOBECTOMY [place] [address] 05/25/2022 11:45 AM SAFETY NET MAKER 05/25/2022 Hospital Encounter MAIN P07B Jim Hernadez, Adenocarcinoma, NOS of upper lobe, lung <Left> (Primary Dx); 5:20 AM Nicole Mosquera MD Adenocarcinoma of left lung SAFETY NET MAKER - [place] Discharge Disposition: Home 05/29/2022 [place] [address] 12:30 PM [phone] SAFETY NET MAKER 05/25/2022 Travel 05/24/2022 Nutrition Clinical Nutrition Josephine Modi, Adenocarcinoma, NOS 9:00 AM For your Nutrition ELECTRIC KNIFE OPERATOR of upper lobe, lung SAFETY NET MAKER appointment location Candy Delcid, <Left > directions please RD call: 05/24/2022 Anesthesia Event Perioperative Mark Walls, 1:01 AM Evaluation and PA SAFETY NET MAKER Management Center [address] [facility] Main Bldg, 6th Floor Elevator A [place] [id number] 05/24/2022 Travel 05/23/2022 POEM Appointments Perioperative Josephine Modi, Emmie Chisholm w 1:30 PM Evaluation and ELECTRIC KNIFE OPERATOR SAFETY NET MAKER Management Center [address] Main dg, 6th Floor Elevator A [place] [id number] 05/23/2022 Clinical Support Josephine Barry, Kassi spected COVID- 19 (Primary Dx); 9:30 AM [facility] - Covid Testing ELECTRIC KNIFE OPERATOR Adenocarcinoma, NOS of upper lobe, lung <Left> SAFETY NET MAKER [address] [facility] Kai Ana Laura Jace Newberry RN [place], [place] [address] 05/23/2022 Travel 05/09/2022 Follow-Up Thoracic Center - Moncho Terrell, Adenoca rcinoma, NOS 10:40 AM Medical Oncology MD Sudeep of upper lobe, lung SAFETY NET MAKER [address] <Left> Main Bldg, 9th [place] [address] 05/09/2022 Follow-Up Thoracic Center - Jim Hernadez, Cerebral thrombosis (Primary Dx); 10:20 AM Surgical Oncology Adenocarcinoma, NOS of upper lobe, lung <Left>; SAFETY NET MAKER [address] Drug induced constipation; Main Bldg, 9th Floor Antineoplastic chemotherapy induced anemia; Elevator [place] [address] 05/09/2022 Hospital Encounter Diagnostic Laboratory Annabel, Adenocarcinoma, NOS of upper lobe, lung <Left> 8:49 AM [place] STORM Spencer Discharge Disposition: Home SAFETY NET MAKER - [address] 05/09/2022 Main Bldg, Elevator A 11:59 [place] [address] SAFETY NET MAKER 05/09/2022 Prep for Surgery Thoracic Center - Josephine Modi, Inocencia nocarcinoma, NOS Surgical Oncology ELECTRIC KNIFE OPERATOR of upper lobe, lung [address] <Left> (Primary Dx) Main Bldg, 9th [place] [address] 05/09/2022 Travel 04/17/2022 Infusion MD Iam Terrell, Adenoc arcinoma, NOS 10:15 AM [place] - Thor Sheets MD of upper lobe, lung CDT [address] [facility] <Left> (Pr imary Dx) South 4th [place] [address] 04/17/2022 Telemedicine Thoracic Center - Vailati Negrao, Adenoca rcinoma, NOS 9:00 AM Medical Oncology MD Sudeep of upper lobe, lung CDT [address] <Left> (Primary Dx) Main Bldg, 9th [place] [address] 04/17/2022 Orders Only Thoracic Center - Elvia Olmedo Medical Oncology Roderick, PharmD [address] Main Bldg, 9th [place] [address] 04/17/2022 Travel 04/11/2022 Orders Only Thoracic Center - Nadja Ambrosecarjohanny velásquez, NOS Medical Oncology STORM Spencer of upper lobe, lung [address] <Left> (Primary Dx) Main Bldg, 9th [place] [address] after 04/11/2022 Immunizations Name Administration Dates Next Due Pneumococcal Polysaccharide 09/20/2017 Surgical History Surgery Date Site/Laterality Comments 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" CORONARY ANGIOPLASTY 06/18/2016 - no interven tion 06/17/2017 CATARACT EXTRACTION Bilateral BILATERAL W/ ANTERIOR VITRECTOMY COLONOSCOPY 06/18/2017 - 3 precancerous p olpys 06/17/2018 removed DILATION AND CURETTAGE OF UTERUS [facility] EBUS GUIDED 12/21/2021 N/A Procedure : BRONCHOSCOPY SAMPL 3/> NODE WITH EBUS 3 OR M ORE STATION/STRUX NODES; Surgeon: Kaylie Mota MD; Locat ion: MAIN PULM PROC; Servi ce: PULMONARY [place] THORACOSCOPY W/LOBECTOMY 05/25/2022 Left Proc edure: ROBOTIC (RATS) SINGLE LOBE (SI) LOBECTOMY; Surgeon: Jim Hernadez MD ; Location: MAIN O R; Service: THRCV - THORACIC SURGERY Medical devices from this surgery are in t he Medical Devices section. [place] THORCOSCPY W/MEDIASTINL 05/25/2022 Left Proce dure: ROBOTIC [...] 05/21/2023 Appointment Diagnostic Sofy Ambrose, 9:00 AM [facility] [address] [place] [id number] [facility], [place] [address] [place] [address] 05/21/2023 Ancillary Procedure Shazia Melchor, 9:30 AM [facility] [place] [address] [facility] [address] [place] [address] 2nd [place] [address] 05/22/2023 Telemedicine Thoracic Center - Moncho Terrell, 8:00 AM SAFETY NET MAKER Medical Oncology MD Sudeep [address] Main Bldg, 9th [place] [address] [place] [address] [phone] 08/20/2023 Telemedicine Internal Medicine Keaton Rodriguez MD 11:00 AM SAFETY NET MAKER Center - Hematology [address] [place] [address] [facility], 6th [phone] (W ork) [place] [address] Health Maintenance Due Date Last Done Comments COVID-19 Vaccination (#1) 10/12/1950 Medical Devices Implanted Type Area Road Driver Device Shelf Model / Identifier Expiration Serial / Date Lot Cath Thoracic Str 28fr - [id number] Left: [employer] 01/06/2025 [id number] / Implanted: Qty: 1 on 05/25/2022 by Jim Hernadez MD at [facility] [employer] Chest NANDINI / [id number] Procedures Procedure Name Priority Date/Time Associated Comments [...] 09/12/2022 9:10 Adenocarcinoma, NOS Results for this [id number] AM CDT of upper lobe, lung procedur e are in <Left> the results section. HEPATIC FUNCTION PANEL Routine 09/12/2022 9:10 Adenocarcinoma, NOS AM CDT of upper lobe, lung <Left> DIFFERENTIAL Routine 08/21/2022 10:43 Adenocarcinoma, NOS Resu lts for this AM SAFETY NET MAKER of upper lobe, lung procedur e are in <Left> the results section. .CBC Routine 08/21/2022 10:43 Adenocarcinoma, NOS Resu lts for this AM SAFETY NET MAKER of upper lobe, lung procedur e are in <Left> the results section. FRACTIONATED BILIRUBIN Routine 08/21/2022 10:43 Adenocarcinoma , NOS Results for this AM SAFETY NET MAKER of upper lobe, lung procedur e are in <Left> the results section. TOTAL PROTEIN Routine 08/21/2022 10:43 Adenocarcinoma, NOS Res ults for this AM SAFETY NET MAKER of upper lobe, lung procedur e are in <Left> the results section. ASPARTATE Routine 08/21/2022 10:43 Adenocarcinoma, NOS Resu lts for this AMINOTRANSFERASE AM SAFETY NET MAKER of upper lobe, lung proc edure are in <Left> the results section. ALANINE AMINOTRANSFERASE Routine 08/21/2022 10:43 Adenocarcino ma, NOS Results for this AM SAFETY NET MAKER of upper lobe, lung procedur e are in <Left> the results section. ALKALINE PHOSPHATASE Routine 08/21/2022 10:43 Adenocarcinoma, NOS Results for this AM SAFETY NET MAKER of upper lobe, lung procedur e are in <Left> the results section. ALBUMIN LEVEL Routine 08/21/2022 10:43 Adenocarcinoma, NOS Res ults for this AM SAFETY NET MAKER of upper lobe, lung procedur e are in <Left> the results section. COMPLETE BLOOD COUNT W/ Routine 08/21/2022 10:43 Adenocarcinom a, NOS DIFFERENTIAL AM SAFETY NET MAKER of upper lobe, lung <Left> GAMMA GLUTAMYL Routine 08/21/2022 10:43 Adenocarcinoma, NOS Re sults for this TRANSFERASE AM SAFETY NET MAKER of upper lobe, lung procedur e are in <Left> the results section. HEPATIC FUNCTION PANEL Routine 08/21/2022 10:43 Adenocarcinoma , NOS AM SAFETY NET MAKER of upper lobe, lung <Left> FRACTIONATED BILIRUBIN Routine 08/14/2022 9:21 Adenocarcinoma, NOS Results for this AM SAFETY NET MAKER of upper lobe, lung procedur e are in <Left> the results section. TOTAL PROTEIN Routine 08/14/2022 9:21 Adenocarcinoma, NOS Resu lts for this AM SAFETY NET MAKER of upper lobe, lung procedur e are in <Left> the results section. ASPARTATE Routine 08/14/2022 9:21 Adenocarcinoma, NOS Resul ts for this AMINOTRANSFERASE AM SAFETY NET MAKER of upper lobe, lung proc edure are in <Left> the results section. ALANINE AMINOTRANSFERASE Routine 08/14/2022 9:21 Adenocarcinom a, NOS Results for this AM SAFETY NET MAKER of upper lobe, lung procedur e are in <Left> the results section. ALKALINE PHOSPHATASE Routine 08/14/2022 9:21 Adenocarcinoma, N OS Results for this AM SAFETY NET MAKER of upper lobe, lung procedur e are in <Left> the results section. ALBUMIN LEVEL Routine 08/14/2022 9:21 Adenocarcinoma, NOS Resu lts for this AM SAFETY NET MAKER of upper lobe, lung procedur e are in <Left> the results section. GAMMA GLUTAMYL Routine 08/14/2022 9:21 Adenocarcinoma, NOS Res ults for this TRANSFERASE AM SAFETY NET MAKER of upper lobe, lung procedur e are in <Left> the results section. HEPATIC FUNCTION PANEL Routine 08/14/2022 9:21 Adenocarcinoma, NOS AM SAFETY NET MAKER of upper lobe, lung <Left> DIFFERENTIAL Routine 08/07/2022 9:30 Increased liver Results f or this AM SAFETY NET MAKER function procedure are i n the results section. .CBC Routine 08/07/2022 9:30 Increased liver Results f or this AM SAFETY NET MAKER function procedure are i n the results section. FRACTIONATED BILIRUBIN Routine 08/07/2022 9:30 Increased liver Results for this AM SAFETY NET MAKER function procedure are i n the results section. TOTAL PROTEIN Routine 08/07/2022 9:30 Increased liver Results for this AM SAFETY NET MAKER function procedure are i n the results section. ASPARTATE Routine 08/07/2022 9:30 Increased liver Results f or this AMINOTRANSFERASE AM SAFETY NET MAKER function procedure a re in the results section. ALANINE AMINOTRANSFERASE Routine 08/07/2022 9:30 Increased juanita er Results for this AM SAFETY NET MAKER function procedure are i n the results section. ALKALINE PHOSPHATASE Routine 08/07/2022 9:30 Increased liver R esults for this AM SAFETY NET MAKER function procedure are i n the results section. ALBUMIN LEVEL Routine 08/07/2022 9:30 Increased liver Results for this AM SAFETY NET MAKER function procedure are i n the results section. CALCIUM LEVEL Routine 08/07/2022 9:30 Increased liver Results for this AM SAFETY NET MAKER function procedure are i n the results section. .GLOMERULAR FILTRATION Routine 08/07/2022 9:30 Increased liver Results for this RATE AM SAFETY NET MAKER function procedure are i n the results section. SERUM CREATININE Routine 08/07/2022 9:30 Increased liver Resul ts for this AM SAFETY NET MAKER function procedure are i n the results section. ELECTROLYTE PANEL Routine 08/07/2022 9:30 Increased liver Resu lts for this AM SAFETY NET MAKER function procedure are i n the results section. BLOOD UREA NITROGEN Routine 08/07/2022 9:30 Increased liver Re sults for this AM SAFETY NET MAKER function procedure are i n the results section. GLUCOSE LEVEL Routine 08/07/2022 9:30 Increased liver Results for this AM SAFETY NET MAKER function procedure are i n the results section. HEPATITIS B CORE Routine 08/07/2022 9:30 Results for this ANTIBODY AM SAFETY NET MAKER procedure are i n the results section. THYROID STIMULATING Routine 08/07/2022 9:30 Increased liver Re sults for this HORMONE AM SAFETY NET MAKER function procedure are i n the results section. FERRITIN Routine 08/07/2022 9:30 Increased liver Results f or this AM [employer] function procedure are i n the results section. TRANSFERRIN Routine 08/07/2022 9:30 Increased liver Results f or this [employer] function procedure are i n the results section. IRON LEVEL Routine 08/07/2022 9:30 Increased liver Results f or this [employer] function procedure are i n the results section. TISSUE TRANSGLUTAMINASE Routine 08/07/2022 9:30 Increased live r Results for this ANTIBODY [employer] function procedure are i n the results section. IMMUNOGLOBULIN A Routine 08/07/2022 9:30 Increased liver Resul ts for this [employer] function procedure are i n the results section. IMMUNOGLOBULIN M Routine 08/07/2022 9:30 Increased liver Resul ts for this [employer] function procedure are i n the results section. IMMUNOGLOBULIN G Routine 08/07/2022 9:30 Increased liver Resul ts for this [employer] function procedure are i n the results section. LIVER/KIDNEY MICROSOME 1 Routine 08/07/2022 9:30 Increased juanita er Results for this AB [employer] function procedure are i n the results section. SMOOTH MUSCLE ANTIBODY Routine 08/07/2022 9:30 Increased liver Results for this SCREEN [employer] function procedure are i n the results section. MITOCHONDRIAL AB M2 Routine 08/07/2022 9:30 Increased liver Re sults for this SERUM [employer] function procedure are i n the results section. ANTINUCLEAR ANTIBODY Routine 08/07/2022 9:30 Increased liver R esults for this HEP-2 SUBSTRATE IGG [employer] function procedur e are in the results section. ALPHA 1 ANTRITRYPSIN Routine 08/07/2022 9:30 Increased liver R esults for this SERUM [employer] function procedure are i n the results section. CERULOPLASMIN Routine 08/07/2022 9:30 Increased liver Results for this [employer] function procedure are i n the results section. HIV 1/2 Routine 08/07/2022 9:30 Increased liver Results f or this ANTIGEN/ANTIBODY, FOURTH [employer] function pro cedure are in GEN W/RFL the results section. EBV ANTIBODY PANEL Routine 08/07/2022 9:30 Increased liver Res ults for this [employer] function procedure are i n the results section. CMV QUANT PCR, PLASMA Routine 08/07/2022 9:30 Increased liver Results for this [employer] function procedure are i n the results section. HEPATITIS E VIRUS BY Routine 08/07/2022 9:30 Increased liver R esults for this QUANTITATIVE PCR [employer] function procedure a re in the results section. HEPATITIS E IGG AB Routine 08/07/2022 9:30 Increased liver Res ults for this [employer] function procedure are i n the results section. HEPATITIS E IGM AB Routine 08/07/2022 9:30 Increased liver Res ults for this [employer] function procedure are i n the results section. HEPATITIS C VIRUS RNA Routine 08/07/2022 9:30 Increased liver Results for this DETECT/QUANT, SERUM [employer] function procedur e are in the results section. HEPATITIS C VIRUS Routine 08/07/2022 9:30 Increased liver Resu lts for this ANTIBODY [employer] function procedure are i n the results section. HBV DNA QUANT Routine 08/07/2022 9:30 Increased liver Results for this [employer] function procedure are i n the results section. HEPATITIS B CORE Routine 08/07/2022 9:30 Increased liver Resul ts for this ANTIBODY [employer] function procedure are i n the results section. HEPATITIS B CORE Routine 08/07/2022 9:30 Increased liver Resul ts for this ANTIBODY IGM ACUTE TITER [employer] function pro cedure are in the results section. HEPATITIS B SURFACE Routine 08/07/2022 9:30 Increased liver Re sults for this ANTIBODY [employer] function procedure are i n the results section. HEPATITIS B SURFACE Routine 08/07/2022 9:30 Increased liver Re sults for this ANTIGEN [employer] function procedure are i n the results section. HEPATITIS A ANTIBODY IGG Routine 08/07/2022 9:30 Increased juanita er Results for this [employer] function procedure are i n the results section. HEPATITIS A IGM ANTIBODY Routine 08/07/2022 9:30 Increased juanita er Results for this SERUM [employer] function procedure are i n the results section. PROTHROMBIN TIME Routine 08/07/2022 9:30 Increased liver Resul ts for this [employer] function procedure are i n the results section. COMPLETE BLOOD COUNT W/ Routine 08/07/2022 9:30 Increased live r DIFFERENTIAL [employer] function GAMMA GLUTAMYL Routine 08/07/2022 9:30 Increased liver Results for this TRANSFERASE [employer] function procedure are i n the results section. HEPATIC FUNCTION PANEL Routine 08/07/2022 9:30 Increased liver [employer] function BASIC METABOLIC PANEL, Routine 08/07/2022 9:30 Increased liver CALCIUM TOTAL [employer] function CMV ANTIBODY IGG + IGM - Routine 08/07/2022 9:30 Results for this PATHOLOGIST REVIEW [employer] procedure are in the results section. EBV ANTIBODY PANEL - Routine 08/07/2022 9:30 Resu lts for this PATHOLOGIST REVIEW [employer] procedure are in the results section. EBV QUANT PCR, PLASMA Routine 08/07/2022 9:30 Increased liver Results for this [employer] function procedure are i n the results section. CMV ANTIBODY IGG + IGM Routine 08/07/2022 9:30 Increased liver Results for this [employer] function procedure are i n the results section. HSV 1 & 2 QUANT PCR, Routine 08/07/2022 9:30 Increased liver R esults for this PLASMA [employer] function procedure are i n the results section. PETCT SUBSEQUENT Routine 08/02/2022 3:42 Adenocarcinoma, NOS R esults for this TREATMENT STRATEGY PM [employer] of upper lobe, lung pr ocedure are in <Left> the results section. OSI CT ABDOMEN AND Routine 08/02/2022 2:47 Adenocarcinoma, NOS Results for this PELVIS [employer] of upper lobe, lung procedur e are in <Left> the results section. OSI CT BRAIN Routine 08/02/2022 2:47 Adenocarcinoma, NOS Resul ts for this PM [employer] of upper lobe, lung procedur e are in <Left> the results section. DIFFERENTIAL Routine 08/02/2022 11:24 Adenocarcinoma, NOS Resu lts for this [employer] of upper lobe, lung procedur e are in <Left> the results section. .CBC Routine 08/02/2022 11:24 Adenocarcinoma, NOS Resu lts for this [employer] of upper lobe, lung procedur e are in <Left> the results section. FRACTIONATED BILIRUBIN Routine 08/02/2022 11:24 Adenocarcinoma , NOS Results for this [employer] of upper lobe, lung procedur e are in <Left> the results section. TOTAL PROTEIN Routine 08/02/2022 11:24 Adenocarcinoma, NOS Res ults for this [employer] of upper lobe, lung procedur e are in <Left> the results section. ASPARTATE Routine 08/02/2022 11:24 Adenocarcinoma, NOS Resu lts for this AMINOTRANSFERASE [employer] of upper lobe, lung proc edure are in <Left> the results section. ALANINE AMINOTRANSFERASE Routine 08/02/2022 11:24 Adenocarcino ma, NOS Results for this AM [employer] of upper lobe, lung procedur e are in <Left> the results section. ALKALINE PHOSPHATASE Routine 08/02/2022 11:24 Adenocarcinoma, NOS Results for this [employer] of upper lobe, lung procedur e are in <Left> the results section. ALBUMIN LEVEL Routine 08/02/2022 11:24 Adenocarcinoma, NOS Res ults for this AM [employer] of upper lobe, lung procedur e are in <Left> the results section. CALCIUM LEVEL Routine 08/02/2022 11:24 Adenocarcinoma, NOS Res ults for this AM [employer] of upper lobe, lung procedur e are in <Left> the results section. .GLOMERULAR FILTRATION Routine 08/02/2022 11:24 Adenocarcinoma , NOS Results for this RATE [employer] of upper lobe, lung procedur e are in <Left> the results section. SERUM CREATININE Routine 08/02/2022 11:24 Adenocarcinoma, NOS Results for this [employer] of upper lobe, lung procedur e are in <Left> the results section. ELECTROLYTE PANEL Routine 08/02/2022 11:24 Adenocarcinoma, NOS Results for this [employer] of upper lobe, lung procedur e are in <Left> the results section. BLOOD UREA NITROGEN Routine 08/02/2022 11:24 Adenocarcinoma, N OS Results for this [employer] of upper lobe, lung procedur e are in <Left> the results section. GLUCOSE LEVEL Routine 08/02/2022 11:24 Adenocarcinoma, NOS Res ults for this [employer] of upper lobe, lung procedur e are in <Left> the results section. GAMMA GLUTAMYL Routine 08/02/2022 11:24 Adenocarcinoma, NOS Re sults for this TRANSFERASE AM [employer] of upper lobe, lung procedur e are in <Left> the results section. CREATINE KINASE Routine 08/02/2022 11:24 Adenocarcinoma, NOS R esults for this [employer] of upper lobe, lung procedur e are in <Left> the results section. COMPLETE BLOOD COUNT W/ Routine 08/02/2022 11:24 Adenocarcinom a, NOS DIFFERENTIAL [employer] of upper lobe, lung <Left> COMPREHENSIVE METABOLIC Routine 08/02/2022 11:24 Adenocarcinom a, NOS PANEL [employer] of upper lobe, lung <Left> XR CHEST 2 VW Routine 06/26/2022 8:58 Adenocarcinoma, NOS Resu lts for this AM [employer] of upper lobe, lung procedur e are in <Left> the results section. OSI CHEST Routine 06/16/2022 8:58 Adenocarcinoma, NOS Resul ts for this [employer] of upper lobe, lung procedur e are in <Left> the results section. OSCILLATORY PEP Routine 05/28/2022 8:00 AM [employer] OSCILLATORY PEP Routine 05/27/2022 8:00 PM [employer]Y NET [employer]ER OSCILLATORY PEP Routine 05/27/2022 8:00 AM [employer] CALCIUM LEVEL Routine 05/27/2022 4:03 Results for this AM [employer] procedure are i n the results section. .GLOMERULAR FILTRATION Routine 05/27/2022 4:03 Re sults for this RATE [employer] procedure are i n the results section. SERUM CREATININE Routine 05/27/2022 4:03 Results for this [employer] procedure are i n the results section. ELECTROLYTE PANEL Routine 05/27/2022 4:03 Results for this [employer] procedure are i n the results section. BLOOD UREA NITROGEN Routine 05/27/2022 4:03 Resul ts for this AM [employer] procedure are i n the results section. GLUCOSE LEVEL Routine 05/27/2022 4:03 Results for this [employer] procedure are i n the results section. MAGNESIUM LEVEL Routine 05/27/2022 4:03 Results f or this [employer] procedure are i n the results section. BASIC METABOLIC PANEL, Routine 05/27/2022 4:03 CALCIUM TOTAL [employer] COMPLETE BLOOD COUNT W/ Routine 05/27/2022 4:03 R esults for this INDICES [employer] procedure are i n the results section. OSCILLATORY PEP Routine 05/26/2022 2:01 PM [employer] OSCILLATORY PEP Routine 05/26/2022 8:00 AM [employer] XR CHEST 2 VW Routine 05/26/2022 7:50 Results for this [employer] procedure are i n the results section. ANION GAP Routine 05/26/2022 5:50 Results for this [employer] procedure are i n the results section. DIFFERENTIAL Now 05/26/2022 5:50 Results for this [employer] procedure are i n the results section. .CBC Now 05/26/2022 5:50 Results for this [employer] procedure are i n the results section. .GLOMERULAR FILTRATION Now 05/26/2022 5:50 Re sults for this RATE [employer] procedure are i n the results section. SERUM CREATININE Now 05/26/2022 5:50 Results for this AM [employer] procedure are i n the results section. COMPLETE BLOOD COUNT W/ Now 05/26/2022 5:50 DIFFERENTIAL [employer] PHOSPHORUS LEVEL Now 05/26/2022 5:50 Results for this [employer] procedure are i n the results section. CALCIUM LEVEL Now 05/26/2022 5:50 Results for this AM [employer] procedure are i n the results section. MAGNESIUM LEVEL Now 05/26/2022 5:50 Results f or this [employer] procedure are i n the results section. GLUCOSE, RANDOM Now 05/26/2022 5:50 Results f or this AM [employer] procedure are i n the results section. CREATININE Now 05/26/2022 5:50 AM [employer] BLOOD UREA NITROGEN Now 05/26/2022 5:50 Resul ts for this AM [employer] procedure are i n the results section. CARBON DIOXIDE LEVEL Now 05/26/2022 5:50 Resu lts for this [employer] procedure are i n the results section. CHLORIDE LEVEL Now 05/26/2022 5:50 Results fo r this [employer] procedure are i n the results section. POTASSIUM LEVEL Now 05/26/2022 5:50 Results f or this [employer] procedure are i n the results section. SODIUM LEVEL Now 05/26/2022 5:50 Results for this [employer] procedure are i n the results section. CALCIUM IONIZED, VENOUS Now 05/26/2022 5:50 R esults for this AM [employer] procedure are i n the results section. OSCILLATORY PEP Routine 05/25/2022 8:46 PM [employer]ER OSCILLATORY PEP Routine 05/25/2022 8:46 PM [employer] OSCILLATORY PEP Routine 05/25/2022 8:46 PM [employer] ANION GAP STAT 05/25/2022 11:26 Results for this [employer] procedure are i n the results section. DIFFERENTIAL STAT 05/25/2022 11:26 Results for this [employer] procedure are i n the results section. .CBC STAT 05/25/2022 11:26 Results for this [employer] procedure are i n the results section. .GLOMERULAR FILTRATION STAT 05/25/2022 11:26 R esults for this RATE [employer] procedure are i n the results section. SERUM CREATININE STAT 05/25/2022 11:26 Results for this AM [employer] procedure are i n the results section. COMPLETE BLOOD COUNT W/ STAT 05/25/2022 11:26 DIFFERENTIAL AM [employer] PHOSPHORUS LEVEL STAT 05/25/2022 11:26 Results for this AM [employer] procedure are i n the results section. CALCIUM IONIZED, VENOUS STAT 05/25/2022 11:26 Results for this [employer] procedure are i n the results section. CALCIUM LEVEL STAT 05/25/2022 11:26 Results fo r this [employer] procedure are i n the results section. MAGNESIUM LEVEL STAT 05/25/2022 11:26 Results for this AM [employer] procedure are i n the results section. GLUCOSE, RANDOM STAT 05/25/2022 11:26 Results for this AM [employer] procedure are i n the results section. CREATININE STAT 05/25/2022 11:26 AM [employer] BLOOD UREA NITROGEN STAT 05/25/2022 11:26 Resu lts for this AM [employer] procedure are i n the results section. CARBON DIOXIDE LEVEL STAT 05/25/2022 11:26 Res ults for this AM [employer] procedure are i n the results section. CHLORIDE LEVEL STAT 05/25/2022 11:26 Results f or this AM [employer] procedure are i n the results section. POTASSIUM LEVEL STAT 05/25/2022 11:26 Results for this AM [employer] procedure are i n the results section. SODIUM LEVEL STAT 05/25/2022 11:26 Results for this AM [employer] procedure are i n the results section. XR CHEST 1 VW STAT 05/25/2022 10:56 Results fo r this [employer] procedure are i n the results section. PATHOLOGY SURGICAL Routine 05/25/2022 8:21 Adenocarcinoma, NOS Results for this INTERPRETATION AM [employer] of upper lobe, lung proced ure are in <Left> the results section. ROBOTIC (RATS) 05/25/2022 6:27 Adenocarcinoma, NOS MEDIASTINAL AM [employer] of upper lobe, lung LYMPHADENECTOMY <Left> Special Needs TT@500Use Dr. Walsh Block time 180mins ROBOTIC (RATS) LOBECTOMY 05/25/2022 6:27 AM [employer] Adenoc arcinoma, NOS of upper lobe, lung <Left> Special Needs TT@500Use Dr. Walsh Block time 180mins TMP CROSSMATCH Routine 05/23/2022 9:58 Results f or this INTERPRETATION [employer] procedure are in the results section. TMP INTERPRETATION Routine 05/23/2022 9:58 AM Res ults for this ANTIBODY SCREEN NEGATIVE [employer] pro cedure are in the results section. CLOT EXPIRATION DATE Routine 05/23/2022 9:58 AM R esults for this [employer] procedure are i n the results section. ANTIBODY SCREEN Routine 05/23/2022 9:58 AM Adenocarcinoma, Res ults for this [employer] NOS of upper procedure are i n lobe, lung <Left> the result s section. ABORH Routine 05/23/2022 9:58 AM Adenocarcinoma, Result s for this [employer] NOS of upper procedure are i n lobe, lung <Left> the result s section. FRACTIONATED BILIRUBIN Routine 05/23/2022 9:58 AM Adenocarcino ma, Results for this [employer] NOS of upper procedure are i n lobe, lung <Left> the result s section. TOTAL PROTEIN Routine 05/23/2022 9:58 AM Adenocarcinoma, Resul ts for this [employer] NOS of upper procedure are i n lobe, lung <Left> the result s section. ASPARTATE Routine 05/23/2022 9:58 AM Adenocarcinoma, Result s for this AMINOTRANSFERASE [employer] NOS of upper procedure a re in lobe, lung <Left> the result s section. ALANINE AMINOTRANSFERASE Routine 05/23/2022 9:58 AM Adenocarci noma, Results for this [employer] NOS of upper procedure are i n lobe, lung <Left> the result s section. ALKALINE PHOSPHATASE Routine 05/23/2022 9:58 AM Adenocarcinoma , Results for this [employer] NOS of upper procedure are i n lobe, lung <Left> the result s section. ALBUMIN LEVEL Routine 05/23/2022 9:58 AM Adenocarcinoma, Resul ts for this [employer] NOS of upper procedure are i n lobe, lung <Left> the result s section. CALCIUM LEVEL Routine 05/23/2022 9:58 AM Adenocarcinoma, Resul ts for this [employer] NOS of upper procedure are i n lobe, lung <Left> the result s section. .GLOMERULAR FILTRATION Routine 05/23/2022 9:58 AM Adenocarcino ma, Results for this RATE [employer] NOS of upper procedure are i n lobe, lung <Left> the result s section. SERUM CREATININE Routine 05/23/2022 9:58 AM Adenocarcinoma, Re sults for this [employer] NOS of upper procedure are i n lobe, lung <Left> the result s section. ELECTROLYTE PANEL Routine 05/23/2022 9:58 AM Adenocarcinoma, R esults for this [employer] NOS of upper procedure are i n lobe, lung <Left> the result s section. BLOOD UREA NITROGEN Routine 05/23/2022 9:58 AM Adenocarcinoma, Results for this [employer] NOS of upper procedure are i n lobe, lung <Left> the result s section. GLUCOSE LEVEL Routine 05/23/2022 9:58 AM Adenocarcinoma, Resul ts for this [employer] NOS of upper procedure are i n lobe, lung <Left> the result s section. DIFFERENTIAL Routine 05/23/2022 9:58 AM Adenocarcinoma, Result s for this [employer] NOS of upper procedure are i n lobe, lung <Left> the result s section. .CBC Routine 05/23/2022 9:58 AM Adenocarcinoma, Result s for this [employer] NOS of upper procedure are i n lobe, lung <Left> the result s section. TRANSFERRIN Routine 05/23/2022 9:58 AM Adenocarcinoma, Result s for this [employer] NOS of upper procedure are i n lobe, lung <Left> the result s section. TYPE AND SCREEN Routine 05/23/2022 9:58 AM Adenocarcinoma, [employer] NOS of upper lobe, lung <Left> APTT Routine 05/23/2022 9:58 AM Adenocarcinoma, Result s for this [employer] NOS of upper procedure are i n lobe, lung <Left> the result s section. PROTHROMBIN TIME Routine 05/23/2022 9:58 AM Adenocarcinoma, Re sults for this [employer] NOS of upper procedure are i n lobe, lung <Left> the result s section. IRON LEVEL Routine 05/23/2022 9:58 AM Adenocarcinoma, Result s for this [employer] NOS of upper procedure are i n lobe, lung <Left> the result s section. HEMOGLOBIN A1C Routine 05/23/2022 9:58 AM Adenocarcinoma, Resu lts for this [employer] NOS of upper procedure are i n lobe, lung <Left> the result s section. FERRITIN Routine 05/23/2022 9:58 AM Adenocarcinoma, Result s for this [employer] NOS of upper procedure are i n lobe, lung <Left> the result s section. FREE THYROXINE Routine 05/23/2022 9:58 AM Adenocarcinoma, Resu lts for this [employer] NOS of upper procedure are i n lobe, lung <Left> the result s section. COMPREHENSIVE METABOLIC Routine 05/23/2022 9:58 AM Adenocarcin muriel, PANEL [employer] NOS of upper lobe, lung <Left> COMPLETE BLOOD COUNT W/ Routine 05/23/2022 9:58 AM Adenocarcin muriel, DIFFERENTIAL [employer] NOS of upper lobe, lung <Left> CONFIRM ABORH TYPE Routine 05/23/2022 9:56 AM Res ults for this [employer] procedure are i n the results section. COVID-19 (SARS-COV-2) PCR Routine 05/23/2022 9:45 AM Suspected Results for this - ASYMPTOMATIC - [facility] [employer] COVID-19 procedur e are in the results section. DIFFERENTIAL Routine 05/09/2022 9:15 AM Adenocarcinoma, Result s for this [employer] NOS of upper procedure are i n lobe, lung <Left> the result s section. .CBC Routine 05/09/2022 9:15 AM Adenocarcinoma, Result s for this [employer] NOS of upper procedure are i n lobe, lung <Left> the result s section. FRACTIONATED BILIRUBIN Routine 05/09/2022 9:15 AM Adenocarcino ma, Results for this [employer] NOS of upper procedure are i n lobe, lung <Left> the result s section. TOTAL PROTEIN Routine 05/09/2022 9:15 AM Adenocarcinoma, Resul ts for this [employer] NOS of upper procedure are i n lobe, lung <Left> the result s section. ASPARTATE Routine 05/09/2022 9:15 AM Adenocarcinoma, Result s for this AMINOTRANSFERASE [employer] NOS of upper procedure a re in lobe, lung <Left> the result s section. ALANINE AMINOTRANSFERASE Routine 05/09/2022 9:15 AM Adenocarci noma, Results for this [employer] NOS of upper procedure are i n lobe, lung <Left> the result s section. ALKALINE PHOSPHATASE Routine 05/09/2022 9:15 AM Adenocarcinoma , Results for this [employer] NOS of upper procedure are i n lobe, lung <Left> the result s section. ALBUMIN LEVEL Routine 05/09/2022 9:15 AM Adenocarcinoma, Resul ts for this [employer] NOS of upper procedure are i n lobe, lung <Left> the result s section. CALCIUM LEVEL Routine 05/09/2022 9:15 AM Adenocarcinoma, Resul ts for this [employer] NOS of upper procedure are i n lobe, lung <Left> the result s section. .GLOMERULAR FILTRATION Routine 05/09/2022 9:15 AM Adenocarcino ma, Results for this RATE [employer]Y [employer]KER NOS of upper procedure are i n lobe, lung <Left> the result s section. SERUM CREATININE Routine 05/09/2022 9:15 AM Adenocarcinoma, Re sults for this [employer] NOS of upper procedure are i n lobe, lung <Left> the result s section. ELECTROLYTE PANEL Routine 05/09/2022 9:15 AM Adenocarcinoma, R esults for this [employer] NOS of upper procedure are i n lobe, lung <Left> the result s section. BLOOD UREA NITROGEN Routine 05/09/2022 9:15 AM Adenocarcinoma, Results for this [employer] NOS of upper procedure are i n lobe, lung <Left> the result s section. GLUCOSE LEVEL Routine 05/09/2022 9:15 AM Adenocarcinoma, Resul ts for this [employer] NOS of upper procedure are i n lobe, lung <Left> the result s section. MAGNESIUM LEVEL Routine 05/09/2022 9:15 AM Adenocarcinoma, Res ults for this [employer] NOS of upper procedure are i n lobe, lung <Left> the result s section. PHOSPHORUS LEVEL Routine 05/09/2022 9:15 AM Adenocarcinoma, Re sults for this [employer] NOS of upper procedure are i n lobe, lung <Left> the result s section. FREE THYROXINE Routine 05/09/2022 9:15 AM Adenocarcinoma, Resu lts for this [employer] NOS of upper procedure are i n lobe, lung <Left> the result s section. THYROID STIMULATING Routine 05/09/2022 9:15 AM Adenocarcinoma, Results for this HORMONE [employer] NOS of upper procedure are i n lobe, lung <Left> the result s section. COMPLETE BLOOD COUNT W/ Routine 05/09/2022 9:15 AM Adenocarcin muriel, DIFFERENTIAL [employer] NOS of upper lobe, lung <Left> COMPREHENSIVE METABOLIC Routine 05/09/2022 9:15 AM Adenocarcin muriel, PANEL [employer]ER NOS of upper lobe, lung <Left> FRACTIONATED [...] NOS of upper lobe, lung <Left> after 04/11/[address] Chest Abdomen Pelvis with Contrast [...] (7/99). A few other, smaller pulmonary nodules ar [...] (02/02/2023 10:17 AM CDT)Only the most recent of11 resultswithin the time period is included. athologist Signature Creatinine 1.23 (H) 0.51 - 0.95 [facility] mg/dL Comment: Testing performed at [facility], [address] [place] [id number] Specimen Anatomical Collection Method Collection Time Receive d Time (Source) Location / / Volume Laterality Blood 02/02/2023 10:17 02/02/2023 AM CDT 10:18 AM CDT [facility] BLOOD ORDERABLES Performing Organization Address City/State/[place] [address], [place] [address] (ABNORMAL) .CBC (02/02/2023 10:17 AM CDT)Only the most recent of11 resultswithin the time period is included. athologist Signature WBC 6.2 4.1 - 10.5 [place] K/uL Comment: All components of the CBC perfo rmed at [facility], [address] [place] [address], [place] [address] RBC 3.75 (L) 3.99 - 5.46 M/uL [place] Comment: All components of the CBC perfo rmed at [facility], [address] [place] [address], [place] [address] Hgb 11.1 (L) 12.2 - 15.3 gm/dL [place] Comment: As part of CBC or as an individ ual orderable testing performed at [facility], [address] [place] [address], [place] [address] Hct 34.5 (L) 36.4 - 46.8 % [place] Comment: As part of CBC testing performe d at [facility], [address] [place] [address], [place] [address] MCV 92 82 - 99 fL [place] Comment: As part of CBC testing performe d at [facility], [address] [place] [address], [place] [address] MCH 29.6 26.6 - 33.2 pg [place] Comment: As part of CBC testing performe d at [facility], [address] [place] [address], [place] [address] MCHC 32.2 31.1 - 35.2 gm/dL [place] Comment: As part of CBC testing performe d at [facility], [address] [place] [address], [place] [address] RDW-SD 48.6 37.5 - 49.7 fL [place] Comment: As part of CBC testing performe d at [facility], [address] [place] [address], [place] [address] RDW-CV 14.2 11.6 - 15.5 % [place] Comment: As part of CBC testing performe d at [facility], [address] [place] [address], [place] [address] Platelet count 235 160 - 397 K/uL [facility] CIT Y Comment: As part of CBC or an individual orderable testing performed at [facility], [address] [place] [address], [place] [address] MPV 8.3 (L) 9.1 - 12.6 fL [place] Comment: As part of CBC testing performe d at [facility], [address] [place] [address] Specimen Anatomical Collection Method Collection Time Receive d Time (Source) Location / / Volume Laterality Blood 02/02/2023 10:17 02/02/2023 AM CDT 10:18 AM CDT Sofy INMAN LAB BLOOD ORDERABLES Performing Organization Address City/[facility]/ZIP [facility] [place] [address], [place] [address] (ABNORMAL) Glomerular Filtration Rate (02/02/2023 10:17 AM CDT)Only the most recent of11 resultswithin the time period is included. athologist Signature eGFR 45 (L) >=60 [place] mL/min/1.73 sq. m Comment: The eGFRcr is [...] criteria for CKD. Testing performed at [facility], [address] [place] [address] Specimen Anatomical Collection Method Collection Time Receive d Time (Source) Location / / Volume Laterality Blood 02/02/2023 10:17 02/02/2023 AM CDT 10:18 AM CDT Sofy INMAN LAB BLOOD ORDERABLES Performing Organization Address City/[facility]/ZIP [facility] [place] [address], [facility] [address] Fractionated Bilirubin (02/02/2023 10:17 AM CDT)Only the most recent of11 resultswithin the time period is included. athologist Signature Bili Total 0.3 <=1.2 mg/dL [place] Comment: Indocyanine Green (ICG) may cause falsel y elevated bilirubin results. Total and direct bilirubin must not be measured from samples containing indocyanine green. False elevation of total bilirubin can b e seen in patients with IgG concentrations above 28 g/L. Testing performed at [facility], [address] [place] [address] Bili Direct <0.2 <=0.3 mg/dL [place] Comment: Indocyanine Green (ICG) may cause falsel y elevated bilirubin results. Total and direct bilirubin must not be measured from samples containing indocyanine green. Testing performed at [facility], [address] [place] [address] Bili Indirect See Note 0.0 - 0.9 mg/dL [facility] Y Comment: Unable to calculate Indirect Bilirubin r esult due to some parameters are outside reportable range Testing performed at [facility], [address] [place] [address] Specimen Anatomical Collection Method Collection Time Receive d Time (Source) Location / / Volume Laterality Blood 02/02/2023 10:17 02/02/2023 AM CDT 10:18 AM CDT Sofy IN[facility] LAB BLOOD ORDERABLES Performing Organization Address City/State/[place] [address], [facility] [address] (ABNORMAL) Differential (02/02/2023 10:17 AM CDT)Only the most recent of11 resultswithin the time period is included. athologist Signature Neutrophil % 60.9 43.2 - 72.7 [place] % Comment: All components of the Different ial performed at [facility], [address] [place] [address] Lymphocyte % 22.8 16.8 - 46.2 % [place] Comment: As part of the Differential calixto ting performed at [facility], [address] [place] [address], [place] [address] Monocyte % 8.7 5.1 - 12.5 % [place] Comment: As part of the Differential calixto ting performed at [facility], [address] [place] [address], [place] [address] Eosinophil % 6.8 (H) 0.4 - 6.3 % [place] Comment: As part of the Differential calixto ting performed at [facility], [address] [place] [address], [place] [address] Basophil % 0.6 0.2 - 1.4 % [place] Comment: As part of the Differential calixto ting performed at [facility], [address] [place] [address], [place] [address] IGRE % 0.2 0.1 - 1.5 % [place] Comment: IGRE % count includes Metamyelocytes, My elocytes, and Promyelocytes. As part of the Differential testing perf ormed at [facility], [address] [place] [address], [place] [address] Neutrophil Abs 3.77 1.95 - 7.25 K/uL [facility] Comment: As part of the Differential calixto ting performed at [facility], [address] [place] [address], [place] [address] Lymphocyte Abs 1.41 1.01 - 3.24 K/uL [facility] Comment: As part of the Differential calixto ting performed at [facility], [address] [place] [address], [place] [address] Monocyte Abs 0.54 0.24 - 0.85 K/uL [facility] Comment: As part of the Differential calixto ting performed at [facility], [address] [place] [address] Eosinophil Abs 0.42 0.02 - 0.50 K/uL [facility] Comment: As part of the Differential calixto ting performed at [facility], [address] [place] [address] Basophil Abs 0.04 0.02 - 0.09 K/uL [facility] CIT Y Comment: As part of the Differential calixto ting performed at [facility], [address] [place] [address] IG Abs 0.01 0.01 - 0.12 K/uL [place] Comment: As part of the Differential calixto ting performed at [facility], [address] [place] [address] Specimen Anatomical Collection Method Collection Time Receive d Time (Source) Location / / Volume Laterality Blood 02/02/2023 10:17 02/02/2023 AM CDT 10:18 AM CDT Sofy IN[facility] LAB BLOOD ORDERABLES Performing Organization Address City/[facility] Judah Castaneda [address], [facility] [address] BUN (02/02/2023 10:17 AM CDT)Only the most recent of11 resultswithin the time period is included. P athologist Signature BUN 19 6 - 23 mg/dL [place] Comment: Testing performed at [facility], [address] [place] [address] Specimen Anatomical Collection Method Collection Time Receive d Time (Source) Location / / Volume Laterality Blood 02/02/2023 10:17 02/02/2023 AM CDT 10:18 AM CDT Sofy Ambrose PA LAB BLOOD ORDERABLES Performing Organization Address City/[facility] Phon chata Castaneda [place], [place] [address] [place] [address], [facility] [address] ALT (02/02/2023 10:17 AM CDT)Only the most recent of11 resultswithin the time period is included. P athologist Signature ALT 7 <=33 U/L [place] Comment: Testing performed at [facility], [address] [place] [address] Specimen Anatomical Collection Method Collection Time Receive d Time (Source) Location / / Volume Laterality Blood 02/02/2023 10:17 02/02/2023 AM CDT 10:18 AM CDT Sofy Chata Annabel PA LAB BLOOD ORDERABLES Performing Organization Address City/[facility] Judah Castaneda [place] [address] Aspartate Aminotransferase (02/02/2023 10:17 AM CDT)Only the most recent of11 resultswithin the time period is included. athologist Signature AST 20 <=32 U/L [place] Comment: Testing performed at [facility], [address] [place] [address] Specimen Anatomical Collection Method Collection Time Receive d Time (Source) Location / / Volume Laterality Blood 02/02/2023 10:17 02/02/2023 AM CDT 10:18 AM CDT Sofy Chata Annabel PA LAB BLOOD ORDERABLES Performing Organization Address City/[facility] Judah Castaneda [place] [address] TSH (02/02/2023 10:17 AM CDT)Only the most recent of4 resultswithin the time period is included. athologist Signature TSH 2.10 0.27 - 4.20 [place] mcunit/mL Comment: Testing performed at [facility], [address] [place] [address] Specimen Anatomical Collection Method Collection Time Receive d Time (Source) Location / / Volume Laterality Blood 02/02/2023 10:17 02/02/2023 AM CDT 10:18 AM CDT Sofy E Annabel PA LAB BLOOD ORDERABLES Performing Organization Address City/[facility] Judah Castaneda [place] [address] Free T4 (02/02/2023 10:17 AM CDT)Only the most recent of4 resultswithin the time period is included. athologist Signature T4 Free 1.03 0.93 - 1.70 [place] ng/dL Comment: Testing performed at [facility], [address] [place] [address] Specimen Anatomical Collection Method Collection Time Receive d Time (Source) Location / / Volume Laterality Blood 02/02/2023 10:17 02/02/2023 AM CDT 10:18 AM CDT Sofy E Annabel PA LAB BLOOD ORDERABLES Performing Organization Address City/[facility]/ZIP Code Phon e Number [place], [place] [address] [place] [address], [facility] [address] Total Protein (02/02/2023 10:17 AM CDT)Only the most recent of11 resultswithin the time period is included. P athologist Signature Total Protein 6.7 6.4 - 8.3 [place] g/dL Comment: Testing performed at [facility], [address] [place] [address] Specimen Anatomical Collection Method Collection Time Receive d Time (Source) Location / / Volume Laterality Blood 02/02/2023 10:17 02/02/2023 AM CDT 10:18 AM CDT Sofy Ambrose PA LAB BLOOD ORDERABLES Performing Organization Address City/[facility]/ZIP Code Phon e Number [place], [place] [address] [place] [address], [facility] [address] Phosphorus Level (02/02/2023 10:17 AM CDT)Only the most recent of5 resultswithin the time period is included. P athologist Signature Phosphorus 3.3 2.5 - 4.5 [place] mg/dL Comment: Testing performed at [facility], [address] [place] [address] Specimen Anatomical Collection Method Collection Time Receive d Time (Source) Location / / Volume Laterality Blood 02/02/2023 10:17 02/02/2023 AM CDT 10:18 AM CDT Sofy Chata Annabel PA LAB BLOOD ORDERABLES Performing Organization Address City/[facility]/ZIP Code Phon e Number [address] [place] [address], [facility] [address] Alkaline Phosphatase (02/02/2023 10:17 AM CDT)Only the most recent of11 results within the time period is included. athologist Signature Alk Phos 90 35 - 104 U/L [place] Comment: Testing performed at [facility], [address] [place] [address] Specimen Anatomical Collection Method Collection Time Receive d Time (Source) Location / / Volume Laterality Blood 02/02/2023 10:17 02/02/2023 AM CDT 10:18 AM CDT Sofy INMAN LAB BLOOD ORDERABLES Performing Organization Address City/[facility]/[address], [facility] [address] Magnesium Level (02/02/2023 10:17 AM CDT)Only the most recent of6 resultswithin the time period is included. athologist [facility] Magnesium 2.0 1.6 - 2.6 [place] mg/dL Comment: Testing performed at [facility], [address] [place] [address] Specimen Anatomical Collection Method Collection Time Receive d Time (Source) Location / / Volume Laterality Blood 02/02/2023 10:17 02/02/2023 AM CDT 10:18 AM CDT Sofy INMAN LAB BLOOD ORDERABLES Performing Organization Address City/[facility] Phon e Number [address], [facility] [address] Glucose Level (02/02/2023 10:17 AM CDT)Only the most recent of9 resultswithin the time period is included. athologist Signature Glucose Level 94 70 - 99 [place] mg/dL Comment: Effective 01/12/16, the glucose reference intervals have been updated based on [place] [employer] guidelines (Standards of Medical Care in Diabetes 2016. Diabetes Care 2016; 39: S13-S22). Fasting blood glucose: Normal: 70-99 mg/dL Impaired fasting glucose (increased risk for diabetes or pre-diabetes): 100- 125 mg/dL Diabetes mellitus: >/=126 mg/dL Random blood glucose: Normal: 70-199 mg/dL Note: Random glucose >100 mg/dL is assoc iated with increased risk for diabetes Testing performed at [facility], [address] [place] [address] Specimen Anatomical Collection Method Collection Time Receive d Time (Source) Location / / Volume Laterality Blood 02/02/2023 10:17 02/02/2023 AM CDT 10:18 AM CDT Sofy INMAN LAB BLOOD ORDERABLES Performing Organization Address City/[facility]/ZIP Code Phon e Number [address], [facility] [address] Calcium Level (02/02/2023 10:17 AM CDT)Only the most recent of11 resultswithin the time period is included. P athologist Signature Calcium Lvl 9.7 8.4 - 10.2 [place] mg/dL Comment: Testing performed at [facility], [address] [place] [address] Specimen Anatomical Collection Method Collection Time Receive d Time (Source) Location / / Volume Laterality Blood 02/02/2023 10:17 02/02/2023 AM CDT 10:18 AM CDT Sofy INMAN LAB BLOOD ORDERABLES Performing Organization Address City/State/[facility] Code Phon e Number [address], [facility] [address] Albumin Level (02/02/2023 10:17 AM CDT)Only the most recent of11 resultswithin the time period is included. P athologist Signature Albumin Lvl 4.1 3.5 - 5.2 [place] gm/dL Comment: Testing performed at [facility], [address] [place] [address] Specimen Anatomical Collection Method Collection Time Receive d Time (Source) Location / / Volume Laterality Blood 02/02/2023 10:17 02/02/2023 AM CDT 10:18 AM CDT Sofy INMAN LAB BLOOD ORDERABLES Performing Organization Address City/[facility] Judah Castaneda [place] [address] [place] [address] Electrolyte Panel (02/02/2023 10:17 AM CDT)Only the most recent of9 results within the time period is included. P athologist Signature Sodium Lvl 139 136 - 145 [place] mEq/L Comment: Testing performed at [facility], [address] [place] [address] Potassium Lvl 4.7 3.5 - 5.1 mEq/L [facility] Y Comment: Testing performed at [facility], [address] [place] [address] Chloride 104 98 - 107 mEq/L [place] Comment: Testing performed at [facility], [address] [place] [address] CO2 27 22 - 29 mEq/L [place] Comment: Testing performed at [facility], [address] [place] [address] Anion Gap 8 4 - 14 mEq/L [place] Comment: Testing performed at [facility], [address] [place] [address] Specimen Anatomical Collection Method Collection Time Receive d Time (Source) Location / / Volume Laterality Blood 02/02/2023 10:17 02/02/2023 AM CDT 10:18 AM CDT Sofy INMAN LAB BLOOD ORDERABLES Performing Organization Address City/State/ZIP Code Judah Castaneda [place] [address] [place] [address] ABDOMEN AND PELVIS (01/19/2023 10:25 [...] No definite metastatic disease. ACTIONABLE ITEMS/RECOMMENDATIONS: None. Sofy E Annabel PA IMG OUTSIDE IMAGE ORDERABLES MRI Brain with and [...] metastasi s. 2. 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 3. Unchanged nonocclusive thrombosis of the [...] Nonspecific subcentimeter pulmonary nodules are stable. Josephine Mahmoodjan [facility] ORDERABLES Research Protocol [id number] (09/12/2022 9:10 AM CDT) athologist Signature Research Prot [id number] [facility] Specimen Anatomical Collection Method Collection Time Receive d Time (Source) Location / / Volume Laterality Blood 09/12/2022 9:10 AM 3 9:38 CDT AM CDT Narrative [facility] - 3 3:28 PM CDT Link with existing labwork already sched uled. Sofy INMAN RESEARCH LAB Z CODES Performing Organization Address City/[facility]/ZIP Code Phon e Number [facility] Unless otherwise noted, [place] [address] [place] all lab tests performed by: Division of Pathology and Laboratory Medicine [address] (ABNORMAL) GGT (08/21/2022 10:43 AM SAFETY NET MAKER)Only the most recent of4 resultswithin the time period is included. P athologist Signature GGT 119 (H) 5 - 36 U/L [place] Comment: Testing performed at [facility], [address] [place] [address] Specimen Anatomical Collection Method Collection Time Receive d Time (Source) Location / / Volume Laterality Blood 08/21/2022 10:43 08/21/2022 AM SAFETY NET MAKER 10:43 AM SAFETY NET MAKER Narrative [place] - 08/21/2022 11:22 AM SAFETY NET MAKER Marrero Sofy INMAN LAB BLOOD ORDERABLES Performing Organization Address City/[facility] Phon e Number [place], [place] [address] [place] [address], [place]CC[place] [address] (ABNORMAL) EBV Quant PCR, Plasma (08/07/2022 9:30 AM SAFETY NET MAKER) Analysis Performed At Patho logist Time Signature EBV Quant PCR <35.0 (H) <=0.[address] [facility] IU/[facility] Comment: Normal Range: Target Not [...] verified by the microbiology laboratory at the [facility]. Results must be interpreted within th e context of all relevant clinical and l aboratory findings. Specimen Anatomical Collection Method Collection Time Receive d Time (Source) Location / / Volume Laterality Blood 08/07/2022 9:30 AM 3 4:20 SAFETY NET MAKER PM SAFETY NET MAKER Narrative [facility] - 3 12:42 PM SAFETY NET MAKER Marrero Sofy IN[facility] MICROBIOLOGY - GENERAL ORDER FLOR Performing Organization Address City/State/ZIP Code Phon e Number [facility] Unless otherwise noted, [place] [address] [place] all lab tests performed by: Division of Pathology and Laboratory Medicine [facility] Hepatitis E Virus by Quant PCR [place] (08/07/2022 9:30 AM SAFETY NET MAKER) [facility] Method Time Signature Hepatitis E <3.3 [...] and its performa nce characteristics determined by [employer]. It has not been cleared or approved by the [place] Food and Drug Adminis tration. This test was performed in a CLIA certified laboratory and is intended for clinical purposes. Performed By: [facility] [employer] [address] [place] [address] Checkering Machine Adjuster: Nhan Wadsworth MD, PHD Hepatitis E Quant by PCR, IU/mL <1,800 IU/mL [facility] Hepatitis E Quant by PCR, Source Serum [facility] Specimen Anatomical Collection Method Collection Time Receive d Time (Source) Location / / Volume Laterality Blood 08/07/2022 9:30 AM 3 9:33 SAFETY NET MAKER AM SAFETY NET MAKER Narrative [facility] - 08/13/2022 2:19 PM SAFETY NET MAKER Marrero Sofy INMAN LAB BLOOD ORDERABLES Performing Organization Address City/[facility] Phon e Number [address] [address] Antinuclear Antibody (JILLIAN) HEp-2 Substrate, IgG (08/07/2022 9:30 AM SAFETY NET MAKER) [facility] Method Time Signature JILLIAN HEp-2 See Footnote <1:80 [facility] ([facility] Comment: RESULT: <1:80 (Negative) ADDITIONAL INFORMATIO N Method: Immunofluorescence using HEp-2 c ellular substrate. Test Performed by: [facility] [place] [address] [place] [address] 06 Security Messenger: Kushal Cannon M.D. Ph. D.; CLIA# [id number] Specimen Anatomical Collection Method Collection Time Receive d Time (Source) Location / / Volume Laterality Blood 08/07/2022 9:30 AM 3 9:33 SAFETY NET MAKER AM SAFETY NET MAKER Narrative [facility] - 3 7:20 PM SAFETY NET MAKER Marrero Sofy INMAN LAB BLOOD ORDERABLES Performing Organization Address City/[facility] Phon e Number [facility] Unless otherwise noted, [address] all lab tests performed by: Division of Pathology and Laboratory Medicine [address] [place] [address] Hepatitis A Antibody IgG (08/07/2022 9:30 AM SAFETY NET MAKER) P athologist Signature Hepatitis A Negative [facility] Comment: Result indicates no past exposure or imm unity to hepatitis A infection. REFERENCE VALUE------ Unvaccinated: Negative Vaccinated: Positive Test Performed by: [facility] [place] [address] [place] [address] 90 Security Messenger: Kushal Cannon M.D. Ph. D.; CLIA# [id number] Specimen Anatomical Collection Method Collection Time Receive d Time (Source) Location / / Volume Laterality Blood 08/07/2022 9:30 AM 3 9:33 SAFETY NET MAKER AM SAFETY NET MAKER Narrative [facility] - 3 11:08 AM SAFETY NET MAKER Marrero Sofy INMAN LAB BLOOD ORDERABLES Performing Organization Address City/State/ZIP Code Phon e Number [facility] Unless otherwise noted, [address] all lab tests performed by: Division of Pathology and Laboratory Medicine [address] [place] [address] HIV-1/2 Antigen and Antibodies, Fourth Generation (08/07/2022 9:30 AM SAFETY NET MAKER) Analysis Performed At Patho logist Time Signature [...] purpose. For additional information please refer to http://education.Explain My [email or web address].[email or web address]/fa q/CXW930 (This link is being provided for informa tional/ educational purposes only.) The performance of this assay has not be en clinically validated in patients less than 2 years old. Lab test performed by: Lab Mnemonic: [facility] [address] [phone] MELISSA JOSHI MD Specimen Anatomical Collection Method Collection Time Receive d Time (Source) Location / / Volume Laterality Blood 08/07/2022 9:30 AM 3 3:29 SAFETY NET MAKER PM SAFETY NET MAKER Narrative [facility] - 08/07/2022 10:33 PM SAFETY NET MAKER Marrero Sofy INMAN LAB BLOOD ORDERABLES Performing Organization Address City/[facility] Phon e Number [facility] Hepatitis C Virus RNA Detect/Quant (08/07/2022 9:30 AM SAFETY NET MAKER) [facility] Method Time Signature HepC RNA PCR Undetected Undetected [place] [facility] IU/[facility] Comment: Result in log IU/mL is Undetected. ADDITIONAL INFORMATIO N The quantification range of this assay i s 15 to 100,000,000 IU/mL (1.18 log to 8.00 log IU/mL). Test ing was performed using the marcus HCV test ([employer] with the marcus 6800 System. Test Performed by: [place] [address] Security Messenger: Kushal Cannon M.D. Ph. D.; CLIA# [id number] Specimen Anatomical Collection Method Collection Time Receive d Time (Source) Location / / Volume Laterality Blood 08/07/2022 9:30 AM 3 9:33 SAFETY NET MAKER AM SAFETY NET MAKER Narrative [facility] - 3 3:15 PM SAFETY NET MAKER Marrero Sofy INMAN LAB BLOOD ORDERABLES Performing Organization Address [facility] Phon e Number [facility] Unless otherwise noted, [address] all lab tests performed by: Division of Pathology and Laboratory Medicine [address] [place] [address] HBV DNA Quant (08/07/2022 9:30 AM SAFETY NET MAKER) [facility] HBV DNA Undetected Undetected ALISON HO Qnt-Cano IU/mL [facility] Comment: Result in log IU/mL is Undetected. ADDITIONAL INFORMATIO N The quantification range of this assay i s 10 to 1,000,000,000 IU/mL (1.00 log to 9.00 lo g IU/mL). Testing was performed using the marcus HBV test ( [employer] with the marcus 6800 Syste m. Test Performed by: [facility] [place] [address] [place] [address] Security Messenger: Kushal Cannon M.D. Ph. D.; IA# [id number] Specimen Anatomical Collection Method Collection Time Receive d Time (Source) Location / / Volume Laterality Blood 08/07/2022 9:30 AM 3 9:33 SAFETY NET MAKER AM SAFETY NET MAKER Narrative [facility] - 3 2:46 PM SAFETY NET MAKER Marrero Sofy [facility]MAN LAB BLOOD ORDERABLES Performing Organization Address City/State/ZIP Code Phon e Number [facility] Unless otherwise noted, [address] all lab tests performed by: Division of Pathology and Laboratory Medicine [address] [place] [address] CMV Quant PCR (08/07/2022 9:30 AM SAFETY NET MAKER) [facility] CMV DNA PCR Target Not Target Not [facility] Detected Detected [place] IU/mL [facility] Comment: Normal Range: Target Not Detected. [...] verified by the microbiology laboratory at the [facility]. Results must be interpreted within th e context of all relevant clinical and l aboratory findings. Specimen Anatomical Collection Method Collection Time Receive d Time (Source) Location / / Volume Laterality Blood 08/07/2022 9:30 AM 3 4:20 SAFETY NET MAKER PM SAFETY NET MAKER Narrative [facility] - 3 4:58 PM SAFETY NET MAKER Marrero Sofy INMAN MICROBIOLOGY - GENERAL ORDER FLOR Performing Organization Address City/[facility] Phon e Number [facility] Unless otherwise noted, [address] all lab tests performed by: Division of Pathology and Laboratory Medicine [address] [place] [address] [place] Hepatitis C Virus Ab (08/07/2022 9:30 AM SAFETY NET MAKER) [facility] Method Time Signature HCVAb. Non Reactive Non Reactive [facility] Comment: Antibody detection in the immunocompromi sed and immunosuppressed population may be delayed or absent entirely. Therefore serial testing, correlation with other clinical findings, and supplemental testin g (if available) should be taken into co nsideration when interpreting the results. Specimen Anatomical Collection Method Collection Time Receive d Time (Source) Location / / Volume Laterality Blood 08/07/2022 9:30 AM 3 7:56 SAFETY NET MAKER AM SAFETY NET MAKER Narrative [facility] - 3 9:42 AM SAFETY NET MAKER Marrero oSfy INMAN LAB BLOOD ORDERABLES Performing Organization Address [facility] Phon e Number [facility] Unless otherwise noted, [address] all lab tests performed by: Division of Pathology and Laboratory Medicine [address] [place] [address] Hepatitis B Total Ig Core Ab (SCREENING) (anti-HBc total Ig; HBcAb total Ig) (08/07/2022 9:30 AM SAFETY NET MAKER)Only the most recent of2 resultswithin the time period is included. [facility] Method Time Signature HBcAb. Non Reactive Non Reactive [facility] Specimen Anatomical Collection Method Collection Time Receive d Time (Source) Location / / Volume Laterality Blood 08/07/2022 9:30 AM 7:56 SAFETY NET MAKER AM SAFETY NET MAKER Sofy [facility]MAN LAB BLOOD ORDERABLES Performing Organization Address City/State/ZIP Code Phon e Number [facility] Unless otherwise noted, [place] [address] [place] all lab tests performed by: Division of Pathology and Laboratory Medicine [address] [place] [address] CMV Ab IgG+IgM Path Review (08/07/2022 9:30 AM SAFETY NET MAKER) Component Value Ref Test Analysis Performed At [facility] Method Time [facility] CMV Panel [place] Positive IgG with low IgM chester ggests previous infection. IVIG can give false positivity. [facility] High titers of IgG can give false negative IgM. Theref ore, active disease is IAM possible but less likely with this pattern. CANCER Reviewed and Electronically signed by Pathologist: CENTER RICKEY SANTANA MD #[id number] Comment: Test performed by an immunoassay intende d for the qualitative detection of IgG and IgM antibodies to Cytomegalovirus (CMV) in human serum. When equivocal results are obtained, ano ther specimen should be collected 10-14 days later. MD Enrique CALABRESE [id number] Dictated by: MD Enrique CALABRESE [id number] Dictated Date/Time: 08.09.2022 13:45 PM SAFETY NET MAKER Transcribed Date/Time: 08.09.2022 13:45 PM SAFETY NET MAKER Electronically Signed By: [place] [id number] on 08.09.2022 13:45 PM Specimen Anatomical Collection Method Collection Time Receive d Time (Source) Location / / Volume Laterality Blood 08/07/2022 9:30 AM 3 4:27 SAFETY NET MAKER PM SAFETY NET MAKER Sofy [facility]MAN MICROBIOLOGY - GENERAL ORDER FLOR Performing Organization Address City/State/ZIP Code Phon e Number [facility] Unless otherwise noted, [place] [address] CENTER all lab tests performed by: Division of Pathology and Laboratory Medicine [address] [facility] HSV 1+2 Quant, Plasma (08/07/2022 9:30 AM SAFETY NET MAKER) [facility] Method Time Signature HSV1 Not Detected Not Detected [facility] Plasma-Viraco copies/mL [facility] HSV2 Not Detected Not Detected [facility] Plasma-Viraco copies/mL [facility] Comment: Assay Range for HSV 1 [...] and its performa nce characteristics determined by [employer]. It has n ot been cleared or approved by the U.S. Food and Drug Administration . Results should be used in conjunction with clinical findings, and should not form the sole basis for a diagnosis or treatment decis ion. Performed At: [facility] [id number] [place] [address] Checkering Machine Adjuster: Haider Leon Ph.D., B CLD (ABB) CLIA#: [id number] Phone: Specimen Anatomical Collection Method Collection Time Receive d Time (Source) Location / / Volume Laterality Blood 08/07/2022 9:30 AM 3 SAFETY NET MAKER 11:31 AM SAFETY NET MAKER Narrative [facility] - 3 10:25 AM SAFETY NET MAKER Marrero Sofy INMAN MICROBIOLOGY - GENERAL ORDER FLOR Performing Organization Address City/[facility]/ZIP [facility] Phon e Number [facility] Unless otherwise noted, [address] all lab tests performed by: Division of Pathology and Laboratory Medicine [address] [place] [address] Joel Sandoval Virus Panel Path Review (08/07/2022 9:30 AM SAFETY NET MAKER) Component Value Ref Test Analysis Performed At [facility] Range Method Time Signature EBV Panel [place] EBV serology most compatible with past infection. Interpret with caution if the [facility] patient is receiving IVIG. AND ERSON Reviewed and Electronically signed by Pathologist: CANCER RICKEY SANTANA MD #[id number] [facility] Comment: Test performed by immunoassay intended f or the qualitative detection of IgG and IgM antibodies to the viral capsid antigen (VCA) of the Joel-Sandoval virus (EBV) and IgG antibodies to the EBV nuclear antigen (EBNA). When equivocal results are obtained, ano ther specimen should be collected 10-14 days later. RICKEY SANTANA MD - [id number] Dictated by: RICKEY SANTANA MD - [id number] Dictated Date/Time: 08.09.2022 13:45 PM SAFETY NET MAKER Transcribed Date/Time: 08.09.2022 13:45 PM SAFETY NET MAKER Electronically Signed By: RICKEY OWENS MD - [id number] on 08.09.2022 13:45 PM Specimen Anatomical Collection Method Collection Time Receive d Time (Source) Location / / Volume Laterality Blood 08/07/2022 9:30 AM 3 4:27 SAFETY NET MAKER PM SAFETY NET MAKER Sofy INMAN MICROBIOLOGY - GENERAL ORDER FLOR Performing Organization Address City/[facility] Phon e Number [facility] Unless otherwise noted, [address] all lab tests performed by: Division of Pathology and Laboratory Medicine [address] [place] [address] (ABNORMAL) CMV Ab IgG+IgM (08/07/2022 9:30 AM SAFETY NET MAKER) [facility] Method Time Signature CMV IgM Int Negative Negative [facility] CMV IgG Int Positive (A) Negative [facility] Specimen Anatomical Collection Method Collection Time Receive d Time (Source) Location / / Volume Laterality Blood 08/07/2022 9:30 AM 3 4:27 SAFETY NET MAKER PM SAFETY NET MAKER Narrative [facility] - 3 12:39 PM SAFETY NET MAKER Marrero Sofy INMAN MICROBIOLOGY - GENERAL ORDER FLOR Performing Organization Address City/[facility] Phon e Number [facility] Unless otherwise noted, [address] all lab tests performed by: Division of Pathology and Laboratory Medicine [address] [place] [address] Tissue Transglutaminase Ab IgA, IgG (08/07/2022 9:30 AM SAFETY NET MAKER) athologist Signature TTG IgA-Cano <1.2 <4.0 [facility] (Negative) [facility] unit/mL TTG IgG-Angwin <1.2 <6.0 [facility] (Negative) [facility] unit/mL Comment: Test Performed by: [facility] [employer] [address] [place] [address] Security Messenger: Kushal Cannon M.D. Ph. D.; CLIA# [id number] Specimen Anatomical Collection Method Collection Time Receive d Time (Source) Location / / Volume Laterality Blood 08/07/2022 9:30 AM 3 9:33 SAFETY NET MAKER AM SAFETY NET MAKER Narrative [facility] - 3 6:30 PM SAFETY NET MAKER Marrero Sofy INMAN LAB BLOOD ORDERABLES Performing Organization Address [facility] Phon e Number [facility] Unless otherwise noted, [address] all lab tests performed by: Division of Pathology and Laboratory Medicine [address] [place] [address] Liver/Kidney Microsome Type 1 Ab (08/07/2022 9:30 AM SAFETY NET MAKER) athologist [facility] Juanita/Kid Micro <5.0 <=20.0 [facility] 1-Angwin (Negative) [facility] Units Comment: Test Performed by: [facility] [employer] [address] [place] [address] 79 Security Messenger: Kushal Cannon M.D. Ph. D.; CLIA# [id number] Specimen Anatomical Collection Method Collection Time Receive d Time (Source) Location / / Volume Laterality Blood 08/07/2022 9:30 AM 3 9:33 SAFETY NET MAKER AM SAFETY NET MAKER Narrative [facility] - 3 7:00 PM SAFETY NET MAKER Marrero Sofy INMAN LAB BLOOD ORDERABLES Performing Organization Address City/[facility]/ZIP [facility] Phon e Number [facility] Unless otherwise noted, [address] all lab tests performed by: Division of Pathology and Laboratory Medicine [address] [place] [address] Hepatitis E IgM Ab (08/07/2022 9:30 AM SAFETY NET MAKER) athologist Signature HEV IgM Ab Negative Negative ALISON HO [facility] Comment: If clinical suspicion persists, submit n ew specimen for retesting in 1 to 2 weeks. ADDITIONAL INFORMATIO N This test was developed and its performa nce characteristics determined by [facility] in a manner co nsistent with CLIA requirements. This test has not been lani ared or approved by the U.S. Food and Drug Administration. Test Performed by: [facility] [place] [address] Security Messenger: Kushal Cannon M.D. Ph. D.; CLIA# [id number] Specimen Anatomical Collection Method Collection Time Receive d Time (Source) Location / / Volume Laterality Blood 08/07/2022 9:30 AM 3 9:33 SAFETY NET MAKER AM SAFETY NET MAKER Narrative [facility] - 3 1:42 PM SAFETY NET MAKER Marrero Sofy INMAN LAB BLOOD ORDERABLES Performing Organization Address City/[facility]/ZIP [facility] Phon e Number [facility] Unless otherwise noted, [address] all lab tests performed by: Division of Pathology and Laboratory Medicine [address] [place] [address] Hepatitis E IgG Ab (08/07/2022 9:30 AM SAFETY NET MAKER) athologist Signature HEV IgG Negative Negative ALISON HO [facility] Comment: ADDITIONAL INFORMATIO N This test was developed and its performa nce characteristics determined by [facility] in a manner co nsistent with CLIA requirements. This test has not been lani ared or approved by the U.S. Food and Drug Administration. Test Performed by: [facility] [place] [address] [place] [address] Security Messenger: Kushal Cannon M.D. Ph. D.; CLIA# [id number] Specimen Anatomical Collection Method Collection Time Receive d Time (Source) Location / / Volume Laterality Blood 08/07/2022 9:30 AM 3 9:33 SAFETY NET MAKER AM SAFETY NET MAKER Narrative [facility] - 3 3:51 PM SAFETY NET MAKER Marrero Sofy INMAN LAB BLOOD ORDERABLES Performing Organization Address City/[facility] Phon e Number [facility] Unless otherwise noted, [address] all lab tests performed by: Division of Pathology and Laboratory Medicine [facility] [place] (ABNORMAL) EBV Antibody Panel (08/07/2022 9:30 AM SAFETY NET MAKER) athologist [facility] VCA-M Int Negative Negative [facility] VCA-G Int Positive (A) Negative [facility] EBNA Int Positive (A) Negative [facility] Specimen Anatomical Collection Method Collection Time Receive d Time (Source) Location / / Volume Laterality Blood 08/07/2022 9:30 AM 3 4:27 SAFETY NET MAKER PM SAFETY NET MAKER Narrative [facility] - 3 12:37 PM SAFETY NET MAKER Marrero Sofy INMAN MICROBIOLOGY - GENERAL ORDER FLOR Performing Organization Address City/[facility] Phon e Number [facility] Unless otherwise noted, [address] all lab tests performed by: Division of Pathology and Laboratory Medicine [address] [place] [address] Alpha 1 Antritrypsin (08/07/2022 9:30 AM SAFETY NET MAKER) athologist [facility] A-1-AT-Angwin 179 100 - 190 [facility] mg/dL [facility] Comment: Test Performed by: [place] [address] Security Messenger: Kushal Cannon M.D. Ph. D.; CLIA# [id number] Specimen Anatomical Collection Method Collection Time Receive d Time (Source) Location / / Volume Laterality Blood 08/07/2022 9:30 AM 3 9:33 SAFETY NET MAKER AM SAFETY NET MAKER Narrative [facility] - 3 9:58 AM SAFETY NET MAKER Marrero Sofy INMAN LAB BLOOD ORDERABLES Performing Organization Address City/[facility] Phon e Number [facility] Unless otherwise noted, [address] all lab tests performed by: Division of Pathology and Laboratory Medicine [facility] MorrisseyKoloagraham Bautista Hep A IgM Ab (08/07/2022 9:30 AM SAFETY NET MAKER) [facility] Hep A IgM-Angwin Negative Negative [facility] Comment: Result does not exclude the possibility of exposure to hepatitis A virus. Antibody level duri ng early infection stage may be below the limit of detectio n of the assay. Test Performed by: [place] [address] 901 Security Messenger: Kushal Cannon M.D. Ph. D.; CLIA# [id number] Specimen Anatomical Collection Method Collection Time Receive d Time (Source) Location / / Volume Laterality Blood 08/07/2022 9:30 AM 3 9:33 SAFETY NET MAKER AM SAFETY NET MAKER Narrative [facility] - 3 11:08 AM SAFETY NET MAKER Marrero Sofy INMAN LAB BLOOD ORDERABLES Performing Organization Address City/State/[facility] Phon e Number [facility] Unless otherwise noted, [address] all lab tests performed by: Division of Pathology and Laboratory Medicine [facility] Evelinegraham Bautista Mitochondrial Ab M2 (08/07/2022 9:30 AM SAFETY NET MAKER) [facility] AMA Ab <0.1 <0.1 [facility] MD IAM Screen-Angwin (Negative) [facility] Units Comment: Test Performed by: [facility] [place] [address] [place] [address] 197 Security Messenger: Kushal Cannon M.D. Ph. D.; CLIA# [id number] Specimen Anatomical Collection Method Collection Time Receive d Time (Source) Location / / Volume Laterality Blood 08/07/2022 9:30 AM 3 9:33 SAFETY NET MAKER AM SAFETY NET MAKER Narrative [facility] - 3 4:34 PM SAFETY NET MAKER Marrero Sofy INMAN LAB BLOOD ORDERABLES Performing Organization Address City/[facility] Phon e Number [facility] Unless otherwise noted, [address] all lab tests performed by: Division of Pathology and Laboratory Medicine [facility] Eveline Bautista Ceruloplasmin Level (08/07/2022 9:30 AM SAFETY NET MAKER) athologist [facility] Ceruloplasmin-M 30.9 20.0 - [facility] guy 51.0 mg/dL [facility] Comment: Test Performed by: [facility] [place] [address] [place] [address] Security Messenger: Kushal Cannon M.D. Ph. D.; CLIA# [id number] Specimen Anatomical Collection Method Collection Time Receive d Time (Source) Location / / Volume Laterality Blood 08/07/2022 9:30 AM 3 9:33 SAFETY NET MAKER AM SAFETY NET MAKER Narrative [facility] - 3 12:51 PM SAFETY NET MAKER Marrero Sofy INMAN LAB BLOOD ORDERABLES Performing Organization Address City/[facility] Phon e Number [facility] Unless otherwise noted, [address] all lab tests performed by: Division of Pathology and Laboratory Medicine [facility] Hepatitis B IgM Core Ab (CONFIRM ACUTE INFECTION ONLY) (anti-HBc IgM; HBcAb IgM) (08/07/2022 9:30 AMCST) P athologist Signature Hep B Core Negative Negative [facility] Comment: Test Performed by: [facility] [address] [place] [address] 261 Security Messenger: Kushal Cannon M.D. Ph. D.; CLIA# [id number] Specimen Anatomical Collection Method Collection Time Receive d Time (Source) Location / / Volume Laterality Blood 08/07/2022 9:30 AM 3 9:33 SAFETY NET MAKER AM SAFETY NET MAKER Narrative [facility] - 3 9:55 AM SAFETY NET MAKER Marrero Sofy INMAN LAB BLOOD ORDERABLES Performing Organization Address City/State/[facility] Phon e Number [facility] Unless otherwise noted, [address] all lab tests performed by: Division of Pathology and Laboratory Medicine [address] [place] [address] Smooth Muscle Ab (08/07/2022 9:30 AM SAFETY NET MAKER) P athologist Signature SMA Negative Negative [facility] Comment: Negative: No further testing will be per formed ADDITIONAL INFORMATIO N This test was developed and its performa nce characteristics determined by [facility] in a manner co nsistent with CLIA requirements. This test has not been lani ared or approved by the U.S. Food and Drug Administration. Test Performed by: [facility] - [address] [address] Security Messenger: Kushal Cannon M.D. Ph. D.; CLIA# [id number] Specimen Anatomical Collection Method Collection Time Receive d Time (Source) Location / / Volume Laterality Blood 08/07/2022 9:30 AM 3 9:33 SAFETY NET MAKER AM SAFETY NET MAKER Narrative [facility] - 3 2:35 PM SAFETY NET MAKER Marrero Sofy INMAN LAB BLOOD ORDERABLES Performing Organization Address City/[facility] Phon e Number [facility] Unless otherwise noted, [address] all lab tests performed by: Division of Pathology and Laboratory Medicine [facility] Hepatitis B Surface Antibody (08/07/2022 9:30 AM SAFETY NET MAKER) Patholo gist Method Time Signature HBs Ab Non Reactive Non Reactive [facility] Specimen Anatomical Collection Method Collection Time Receive d Time (Source) Location / / Volume Laterality Blood 08/07/2022 9:30 AM 3 7:56 SAFETY NET MAKER AM SAFETY NET MAKER Narrative [facility] - 3 9:41 AM SAFETY NET MAKER Marrero Sofy Ambrose PA LAB BLOOD ORDERABLES Performing Organization Address City/State/ZIP Code Phon e Number [facility] Unless otherwise noted, [address] all lab tests performed by: Division of Pathology and Laboratory Medicine [address] [place] [address] Hepatitis B Surface Ag (08/07/2022 9:30 AM SAFETY NET MAKER) Patholo gist Method Time Signature HBsAg. Non Reactive Non Reactive [facility] Specimen Anatomical Collection Method Collection Time Receive d Time (Source) Location / / Volume Laterality Blood 08/07/2022 9:30 AM 3 7:56 SAFETY NET MAKER AM SAFETY NET MAKER Narrative [facility] - 3 9:41 AM SAFETY NET MAKER Marrero Sofy Ambrose PA LAB BLOOD ORDERABLES Performing Organization Address City/State/ZIP Code Phon e Number [facility] Unless otherwise noted, [address] all lab tests performed by: Division of Pathology and Laboratory Medicine [address] [place] [address] (ABNORMAL) Prothrombin Time with INR (08/07/2022 9:30 AM SAFETY NET MAKER)Only the most recent of2 resultswithin the time period is included. P athologist Signature PT 14.3 (H) 11.9 - 14.1 [place] second(s) Comment: Testing performed at [facility], [address] [place], [place] [id number] INR 1.12 (H) 0.89 - 1.10 [place] Comment: Testing performed at [facility], [address] [place] [address] Specimen Anatomical Collection Method Collection Time Receive d Time (Source) Location / / Volume Laterality Blood 08/07/2022 9:30 AM 3 9:33 SAFETY NET MAKER AM SAFETY NET MAKER [facility] - 08/07/2022 10:26 AM [facility] This lab cannot be scheduled at the [facility] locations due to collection/proccessing restrictions: [facility] and [facility]. Sofy INMAN LAB BLOOD ORDERABLES Performing Organization Address City/[facility]/ZIP Code Phon e Tonya [place], [place] [id number] [place] [address], [facility] [address] Transferrin with TIBC (08/07/2022 9:30 AM SAFETY NET MAKER)Only the most recent of2 results within the time period is included. athologist Signature Transferrin 254 200 - 360 [place] mg/dL Comment: Performed at [facility], [address] [place] [address] TIBC 356 250 - 450 mcg/dL [place] Comment: Performed at [facility], [address] [place] [address] Specimen Anatomical Collection Method Collection Time Receive d Time (Source) Location / / Volume Laterality Blood 08/07/2022 9:30 AM 3 9:32 SAFETY NET MAKER AM SAFETY NET MAKER [facility] - 08/07/2022 10:14 AM SAFETY NET MAKER No fasting required [place] No fasting required Sofy INMAN LAB BLOOD ORDERABLES Performing Organization Address City/[facility] Phon e Tonya [place], [place] [id number] [place] [address], [facility] [id number] Iron Level (08/07/2022 9:30 AM SAFETY NET MAKER)Only the most recent of2 resultswithin the time period is included. P athologist Signature Iron 45 37 - 145 [place] mcg/dL Comment: Testing performed at [facility], [address] [place] [address] Specimen Anatomical Collection Method Collection Time Receive d Time (Source) Location / / Volume Laterality Blood 08/07/2022 9:30 AM 3 9:32 SAFETY NET MAKER AM SAFETY NET MAKER [facility] - 08/07/2022 10:14 AM SAFETY NET MAKER No fasting required [place] No fasting required Sofy E Annabel PA LAB BLOOD ORDERABLES Performing Organization Address City/State/[place] [address] [place] [address] [facility], [facility] [id number] IgA (08/07/2022 9:30 AM SAFETY NET MAKER) athologist Signature IgA 146 85 - 499 [facility] mg/dL [facility] Specimen Anatomical Collection Method Collection Time Receive d Time (Source) Location / / Volume Laterality Blood 08/07/2022 9:30 AM 3 7:51 SAFETY NET MAKER AM SAFETY NET MAKER Narrative [facility] - 3 1:23 PM SAFETY NET MAKER [place] Sofy E Annabel PA LAB BLOOD ORDERABLES Performing Organization Address City/[facility]/ZIP Code Phon e Number [facility] CANCER Unless otherwise noted, [address] all lab tests performed by: Division of Pathology and Laboratory Medicine [facility] [place] IgM (08/07/2022 9:30 AM SAFETY NET MAKER) athologist Signature IgM 84 35 - 242 [facility] mg/dL [facility] Specimen Anatomical Collection Method Collection Time Receive d Time (Source) Location / / Volume Laterality Blood 08/07/2022 9:30 AM 3 7:51 SAFETY NET MAKER AM SAFETY NET MAKER Narrative [facility] - 3 1:24 PM SAFETY NET MAKER [place] Sofy E Annabel PA LAB BLOOD ORDERABLES Performing Organization Address City/State/ZIP Code Phon e Number [facility]ER Unless otherwise noted, [address] all lab tests performed by: Division of Pathology and Laboratory Medicine [address] IgG (08/07/2022 9:30 AM SAFETY NET MAKER) athologist Signature IgG 719 610 - 1,616 [facility] mg/dL [facility] Specimen Anatomical Collection Method Collection Time Receive d Time (Source) Location / / Volume Laterality Blood 08/07/2022 9:30 AM 3 7:51 SAFETY NET MAKER AM SAFETY NET MAKER Narrative [facility] - 3 1:23 PM SAFETY NET MAKER [place] Sofy E Annabel PA LAB BLOOD ORDERABLES Performing Organization Address City/State/ZIP Code Phon e Number [facility]CER Unless otherwise noted, [place] [address] CENTER all lab tests performed by: Division of Pathology and Laboratory Medicine [address] [facility] Ferritin Level (08/07/2022 9:30 AM SAFETY NET MAKER)Only the most recent of2 resultswithin the time period is included. athologist Signature Ferritin Lvl 62 13 - 150 [place] ng/mL Comment: Testing performed at [facility], [address] [place] [address], [place] [address] Specimen Anatomical Collection Method Collection Time Receive d Time (Source) Location / / Volume Laterality Blood 08/07/2022 9:30 AM 9:33 SAFETY NET MAKER AM SAFETY NET MAKER Narrative [place] - 08/07/2022 10:32 AM SAFETY NET MAKER No fasting required Marre[place] No fasting required Sofy INMAN LAB BLOOD ORDERABLES Performing Organization Address City/State/[place] [address], [facility] [address] PETCT Subsequent Treatment Strategy (08/02/2022 3:42 PM SAFETY NET MAKER) Anatomical Region Laterality Modality Whole Body Positron Emission To mography (PET) Specimen (Source) Anatomical Collection Method Collection Time Re ceived Time Location / / Volume Laterality 08/02/2022 4:45 PM SAFETY NET MAKER Impressions 08/03/2022 3:29 PM SAFETY NET MAKER Low-grade FDG uptake within the left upp [...] distant-extrathoracic systemic metastases. Narrative 08/03/2022 3:29 PM SAFETY NET MAKER FULL RESULT: Examination: FDG PET/CT, 08/02/2022 3:42 [...] or distant- extrathoracic systemic metastases. Sofy INMAN IMTerry PETCT ORDERABLES OSI CT BRAIN (08/02/2022 2:47 PM SAFETY NET MAKER) Specimen (Source) Anatomical Location Collection Method / Collectio n Time Received Time / Laterality Volume Narrative Systemgenerated, Documentation - 023 8:10 AM CDT Study acquired at another institution. For comparison only. No [facility] originated interpretation requested or a vailable. Sofy INMAN IMG OUTSIDE IMAGE ORDERABLES Creatine Kinase (08/02/2022 11:24 AM SAFETY NET MAKER) P athologist Signature CK 61 54 - 192 [facility] Specimen Anatomical Collection Method Collection Time Receive d Time (Source) Location / / Volume Laterality Blood 08/02/2022 11:24 08/02/2022 8:43 AM SAFETY NET MAKER PM SAFETY NET MAKER Narrative [facility] - 9:00 PM SAFETY NET MAKER [place] Sofy INMAN LAB BLOOD ORDERABLES Performing Organization Address City/State/ZIP Code Phon e Number [facility]CER Unless otherwise noted, [place] [address] CENTER all lab tests performed by: Division of Pathology and Laboratory Medicine [address] [facility] X-ray Chest 2 Views (06/26/2022 8:58 AM SAFETY NET MAKER)Only the most recent of2 results within the time period is included. Anatomical Region Laterality Modality Chest Digital Radiography Specimen (Source) Anatomical Collection Method Collection Time Re ceived Time Location / / Volume Laterality 06/26/2022 9:02 AM SAFETY NET MAKER Impressions 06/26/2022 9:04 AM SAFETY NET MAKER No definite pneumothorax. Small left pleural effusion. Narrative 06/26/2022 9:04 AM SAFETY NET MAKER FULL RESULT: Examination: XR CHEST 2 VW, [...] left ple ural effusion. Josephine Modi APRN IMG DIAGNOSTIC IMAGING ORDER FLOR OSI CHEST (06/16/2022 8:58 AM SAFETY NET MAKER) Anatomical Region Laterality Modality Chest Other Specimen (Source) Anatomical Collection Method Collection Time Re ceived Time Location / / Volume Laterality 07/17/2022 12:46 PM SAFETY NET MAKER Impressions 07/17/2022 12:46 PM SAFETY NET MAKER FINDINGS and IMPRESSION: 1. Left thoracostomy removed. Tiny lef t pneumothorax resolved. 2. Heart not enlarged. Moderate aortic atherosclerotic changes. 3. Post cervical changes left chest, m ild elevation left hemidiaphragm, and trace left effusion versus minimal left basilar pleural scarring. Narrative 07/17/2022 12:46 PM SAFETY NET MAKER FULL RESULT: Examination: OSI CHEST, 06/16/2022 8:58 [...] Blood Count w/o Differential (05/27/2022 4:03 AM SAFETY NET MAKER) P athologist Signature WBC 6.3 4.0 - 11.[address] [facility] K/[facility] RBC 2.89 (L) 4.00 - [place] MD 5.50 M/uL [facility] Hgb 9.5 (L) 12.0 - [place] 16.0 gm/dL [facility] Hct 28.9 (L) 37.0 - [place] 47.0 % [facility] MCV 100 (H) 82 - 98 fL [facility] MCH 32.9 (H) 27.0 - [place] 31.0 pg [facility] MCHC 32.9 31.0 - [place] 36.0 gm/dL [facility] RDW-SD 67.2 (H) 35.1 - [place] 46.3 [facility] RDW-CV 18.4 (H) 12.0 - [place] MD 15.5 % [facility] Platelet count 232 140 - [address] [facility] K/[facility] MPV 9.2 4.0 - 10.4 [facility] INRBC 0.0 <=0.0 % [facility] Comment: The INRBC (instrument NRBC) value [...] Laterality Blood 05/27/2022 4:03 AM 2 4:24 SAFETY NET MAKER AM SAFETY NET MAKER Cady Heller APRN LAB BLOOD ORDERABLES Performing Organization Address City/State/ZIP Code Phon e Number [facility] Unless otherwise noted, [place] [address] [place] all lab tests performed by: Division of Pathology and Laboratory Medicine [address] [facility] Glucose, Random (05/26/2022 5:50 AM SAFETY NET MAKER)Only the most recent of2 resultswithin the time period is included. athologist Signature Glucose Random 116 70 - 199 [facility] mg/dL [facility] Comment: Effective 01/12/16, the glucose reference intervals have been updated based on [place] [employer] guidelines (Standards of Medical Care [...] Laterality Blood 05/26/2022 5:50 AM 2 6:14 SAFETY NET MAKER AM SAFETY NET MAKER Jim Hernadez MD LAB BLOOD ORDERABLES Performing Organization Address City/[facility]/ZIP [facility] Phon e Number [facility]CER Unless otherwise noted, [address] all lab tests performed by: Division of Pathology and Laboratory Medicine [address] [employer] [place] Anion Gap (05/26/2022 5:50 AM SAFETY NET MAKER)Only the most recent of2 resultswithin the time period is included. P athologist Signature Anion Gap 10 4 - 14 [facility] mEq/L [facility] Specimen Anatomical Collection Method Collection Time Receive d Time (Source) Location / / Volume Laterality Blood 05/26/2022 5:50 AM 2 6:14 SAFETY NET MAKER AM SAFETY NET MAKER Jim Hernadez MD LAB BLOOD ORDERABLES Performing Organization Address City/[facility] Phon e Number [facility] Unless otherwise noted, [address] all lab tests performed by: Division of Pathology and Laboratory Medicine [address] Calcium Ionized, Venous (05/26/2022 5:50 AM SAFETY NET MAKER)Only the most recent of2 results within the time period is included. P athologist Signature V Ion Ca 1.22 1.15 - 1.29 [facility] mmol/L [facility] Specimen Anatomical Collection Method Collection Time Receive d Time (Source) Location / / Volume Laterality Blood 05/26/2022 5:50 AM 2 5:57 SAFETY NET MAKER AM SAFETY NET MAKER Jim Hernadez MD LAB BLOOD ORDERABLES Performing Organization Address City/[facility] Phon e Number [facility] Unless otherwise noted, [address] all lab tests performed by: Division of Pathology and Laboratory Medicine [address] [employer] Sodium Level (05/26/2022 5:50 AM SAFETY NET MAKER)Only the most recent of2 resultswithin the time period is included. P athologist Signature Sodium Lvl 140 136 - 145 [facility] mEq/L [facility] Specimen Anatomical Collection Method Collection Time Receive d Time (Source) Location / / Volume Laterality Blood 05/26/2022 5:50 AM 2 6:14 SAFETY NET MAKER AM SAFETY NET MAKER Jim Hernadez MD LAB BLOOD ORDERABLES Performing Organization Address City/[facility] Phon e Number [facility] Unless otherwise noted, [address] all lab tests performed by: Division of Pathology and Laboratory Medicine [address] [place] Potassium Level (05/26/2022 5:50 AM SAFETY NET MAKER)Only the most recent of2 resultswithin the time period is included. P athologist Signature Potassium Lvl 4.3 3.5 - 5.1 [facility] mEq/L [facility] Specimen Anatomical Collection Method Collection Time Receive d Time (Source) Location / / Volume Laterality Blood 05/26/2022 5:50 AM 2 6:14 SAFETY NET MAKER AM SAFETY NET MAKER Jim Hernadez MD LAB BLOOD ORDERABLES Performing Organization Address City/[facility] Phon e Number [facility] Unless otherwise noted, [address] all lab tests performed by: Division of Pathology and Laboratory Medicine [address] [place] Chloride Level (05/26/2022 5:50 AM SAFETY NET MAKER)Only the most recent of2 resultswithin the time period is included. P athologist Signature Chloride 105 98 - 107 [facility] mEq/L [facility] Specimen Anatomical Collection Method Collection Time Receive d Time (Source) Location / / Volume Laterality Blood 05/26/2022 5:50 AM 2 6:14 SAFETY NET MAKER AM SAFETY NET MAKER Jim Hernadez MD LAB BLOOD ORDERABLES Performing Organization Address City/[facility] Phon e Number [facility] Unless otherwise noted, [address] all lab tests performed by: Division of Pathology and Laboratory Medicine [address] Carbon Dioxide Level (05/26/2022 5:50 AM SAFETY NET MAKER)Only the most recent of2 results within the time period is included. P athologist Signature CO2 25 22 - 29 [facility] mEq/L [facility] Specimen Anatomical Collection Method Collection Time Receive d Time (Source) Location / / Volume Laterality Blood 05/26/2022 5:50 AM 6:14 SAFETY NET MAKER AM SAFETY NET MAKER Jim Hernadez MD LAB BLOOD ORDERABLES Performing Organization Address City/State/ZIP Code Phon e Number [facility] Unless otherwise noted, [place] [address] CENTER all lab tests performed by: Division of Pathology and Laboratory Medicine [address] [place] X-ray Chest 1 View (05/25/2022 10:56 AM SAFETY NET MAKER) Anatomical Region Laterality Modality Chest Digital Radiography Specimen (Source) Anatomical Collection Method Collection Time Re ceived Time Location / / Volume Laterality 05/25/2022 11:17 AM SAFETY NET MAKER Impressions 05/25/2022 11:18 AM SAFETY NET MAKER Surgical changes in left lung. Opacities in left lower lung likely atelectasis in the postoperative setting. Small left pneumothorax. Opacities have increased in the right upper lobe may be due to aspiration or pneumonia. 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 [place] BS Clinical of upper lobe, lung 2:55 PM History <Left> [C34.12] SAFETY NET MAKER Diagnosis A. Lymph node, subaortic, 5: 05/29/2022 [facility] Electronically Negative for tumor. 2:55 [...] negative for tumor (0/8) Synoptic LUNG 05/29/2022 [facility] Checklist LUNG: RESECTION - All Specimens 2:55 PM 8th Edition - Protocol posted: 04/27/2021 SAFETY NET MAKER SPECIMEN Procedure: Lobectomy Specimen Laterality: Left TUMOR [...] pT0 pN Category: pN0 Gross A: 05/29/2022 [facility] Description Lymph node(s), subaortic, 5, or #20: Consists of a red-brown lymph node (0.8 x 0.5 x 0.4 cm). The specimen is entirely submitted in cassette A1. ML 2:55 PM B: SAFETY NET MAKER Lymph node(s), left, hilar, 10l, or #20: [...] after removal of the staple line; F10-F11, motor vehicle representative section of uninvolved parenchyma of the lung; F12- F13, each containing 4 possible lymph nodes; F14, 3 possible lymph nodes. JX Disclaimer "Some tests 05/29/2022 [facility] reported here may 2:55 PM have been developed SAFETY NET MAKER and performance characteristics determined by [facility] Pathology and Laboratory Medicine. These tests have not been specifically cleared or approved by the U.S. Food and Drug Administration. If applicable, controls were reviewed and showed appropriate reactivity." Specimen Anatomical Collection Method Collection Time Receive d Time (Source) Location / / Volume Laterality Tissue specimen 05/25/2022 8:21 AM 2021 9:54 (specimen) SAFETY NET MAKER AM SAFETY NET MAKER (Lymph Node(s), Subaortic, 5) Tissue specimen 05/25/2022 8:21 AM 2021 9:54 (specimen) SAFETY NET MAKER AM SAFETY NET MAKER (Lymph Node(s), Left, Hilar, 10L) Tissue specimen 05/25/2022 8:30 AM 2021 9:54 (specimen) SAFETY NET MAKER AM SAFETY NET MAKER (Lymph Node(s), Left, Interlobar, 11L) Tissue specimen 05/25/2022 9:16 AM 2021 9:54 (specimen) SAFETY NET MAKER AM SAFETY NET MAKER (Lymph Node(s), Para-Aortic, 6) Tissue specimen 05/25/2022 9:29 AM 2021 9:54 (specimen) SAFETY NET MAKER AM SAFETY NET MAKER (Lymph Node(s), Subcarinal, 7) Tissue specimen 05/25/2022 9:35 AM 2021 9:54 (specimen) SAFETY NET MAKER AM SAFETY NET MAKER (Lung, Left Upper Lobe) Jim Hernadez MD LAB PATHOLOGY ORDERABLES Performing Organization Address City/State/ZIP Code Phon e Number [facility] LABS [place] [address], [address] Clot Expiration Date (05/23/2022 9:58 AM SAFETY NET MAKER) [facility] Method Time Signature T & S 05/26/2022 [facility] Specimen Anatomical Collection Method Collection Time Receive d Time (Source) Location / / Volume Laterality Blood 05/23/2022 9:58 AM 2:44 SAFETY NET MAKER PM SAFETY NET MAKER Josephine Modi APRN BLOOD BANK TEST ORDERABLES Performing Organization Address City/State/ZIP Code Phon e Number [facility]CER Unless otherwise noted, [address] all lab tests performed by: Division of Pathology and Laboratory Medicine [address] [place] [address] TMP Interpretation Antibody Screen Negative (05/23/2022 9:58 AM SAFETY NET MAKER) [facility] TMP Auto Neg At the [place] ABSC Interp [facility] patient plasma shows no evidence of RBC alloantibodi es. Comment: JOSEPHINE EARL, Dictated by: JOSEPHINE EARL, Dictated Date/Time: 05.24.2022 9:[address] Transcribed Date/Time: 05.24.2022 9:47 AM SAFETY NET MAKER Electronically Signed By: JOSEPHINE EARL , on 05.24.2022 9:47 AM C Specimen Anatomical Collection Method Collection Time Receive d Time (Source) Location / / Volume Laterality Blood 05/23/2022 9:58 AM 2:44 SAFETY NET MAKER PM SAFETY NET MAKER Josephine Modi APRN BLOOD BANK TEST ORDERABLES Performing Organization Address City/State/ZIP Code Phon e Number [facility] Unless otherwise noted, [address] all lab tests performed by: Division of Pathology and Laboratory Medicine [address] [place] [address] TMP Interpretation Crossmatch (05/23/2022 9:58 AM SAFETY NET MAKER) [facility] TMP XM Interp RBC units [place] crossmatched for [place] transfusion CANCER [facility] CENTER acceptable. Comment: JOSEPHINE EARL, Dictated by: JOSEPHINE EARL, Dictated Date/Time: 05.25.2022 11:44 AM SAFETY NET MAKER Transcribed Date/Time: 05.25.2022 11:44 AM SAFETY NET MAKER Electronically Signed By: JOSEPHINE EARL , on 05.25.2022 11:44 AM Specimen Anatomical Collection Method Collection Time Receive d Time (Source) Location / / Volume Laterality Blood 05/23/2022 9:58 AM 2 2:44 SAFETY NET MAKER PM SAFETY NET MAKER Josephine Modi APRN BLOOD BANK TEST ORDERABLES Performing Organization Address City/[facility] Phon e Number [facility] Unless otherwise noted, [address] all lab tests performed by: Division of Pathology and Laboratory Medicine [address] (ABNORMAL) Partial Thromboplastin Time (05/23/2022 9:58 AM SAFETY NET MAKER) athologist Signature aPTT 36.3 (H) 22.8 - 34.2 [place] second(s) Comment: Testing performed at [facility], [address] [place] [address] Specimen Anatomical Collection Method Collection Time Receive d Time (Source) Location / / Volume Laterality Blood 05/23/2022 9:58 AM 2 9:59 SAFETY NET MAKER AM SAFETY NET MAKER Narrative [place] - 05/23/2022 10:39 AM SAFETY NET MAKER This lab cannot be scheduled at the [facility] locations due to collection/proccessing restrictions: [facility] and [facility]. Josephine Mahmoodsh ELECTRIC KNIFE OPERATOR LAB BLOOD ORDERABLES Performing Organization Address City/[facility] [place] [address], [place] [address] ABORh (05/23/2022 9:58 AM SAFETY NET MAKER) athologist Signature ABORh. O POS [facility] Specimen Anatomical Collection Method Collection Time Receive d Time (Source) Location / / Volume Laterality Blood 05/23/2022 9:58 AM 2 2:44 SAFETY NET MAKER PM SAFETY NET MAKER Josephine Mahmoodsh ELECTRIC KNIFE OPERATOR BLOOD BANK TEST ORDERABLES Performing Organization Address City/[facility] Phon e Number [facility] Unless otherwise noted, [place], [place] [id number] [place] [address] all lab tests performed by: Division of Pathology and Laboratory Medicine [address] Antibody Screen (05/23/2022 9:58 AM SAFETY NET MAKER) athologist Signature ABSC. Negative ABSC [facility] Specimen Anatomical Collection Method Collection Time Receive d Time (Source) Location / / Volume Laterality Blood 05/23/2022 9:58 AM 2 2:44 SAFETY NET MAKER PM SAFETY NET MAKER Josephine Modi APRN BLOOD BANK TEST ORDERABLES Performing Organization Address City/[facility]/ZIP Code Phon e Number [facility] Unless otherwise noted, [address] all lab tests performed by: Division of Pathology and Laboratory Medicine [facility] Hemoglobin A1c (05/23/2022 9:58 AM SAFETY NET MAKER) athologist [facility] A1C 5.5 4.3 - 5.6 % [place] Comment: HbA1c values >=6.5% are diagnostic of di abetes mellitus. Diagnosis should be confirmed by repeat testing. Therapeutic Action suggested: >8.0% HbA1 c; Goal of therapy: <7.0% HbA1c Testing performed at [facility], [address] [place] [address] Specimen Anatomical Collection Method Collection Time Receive d Time (Source) Location / / Volume Laterality Blood 05/23/2022 9:58 AM 2 9:59 SAFETY NET MAKER AM SAFETY NET MAKER Josephine Modi APRN LAB BLOOD ORDERABLES Performing Organization Address City/[facility]/[place] [address], [place] [address] Confirm ABORh (05/23/2022 9:56 AM SAFETY NET MAKER) athologist Signature ABORh Confirm. O POS [facility] Specimen Anatomical Collection Method Collection Time Receive d Time (Source) Location / / Volume Laterality Blood 05/23/2022 9:56 AM 2 2:43 SAFETY NET MAKER PM SAFETY NET MAKER Josephine Modi APRN BLOOD BANK TEST ORDERABLES Performing Organization Address City/State/ZIP Code Phon e Number [facility] Unless otherwise noted, [address] all lab tests performed by: Division of Pathology and Laboratory Medicine [address] [place] [address] COVID-19 (SARS-CoV-2) PCR-Asymptomatic [facility] (05/23/2022 9:45 AM SAFETY NET MAKER) [facility] Method Time Signature COVID19 (SARS Not Detected Not Detected [place] CoV-2) [facility] Comment: This test is a qualitative reverse-trans criptase polymerase chain reaction (RT- PCR) developed for the [employer] system and intended for qualitative detection of SARS CoV-2 RNA in nasopharyngeal a nd oropharyngeal swab specimens collecte d from any individuals, including those suspected o f COVID-19 by their healthcare provider, and those without symptoms or other reasons to suspect COVID-19. A fact sheet for patients provided by the barber ( [employer]) can be rev iewed at: https://www.fda.gov/media/969567/downloa d. A fact sheet for Health Care providers is provided by the barber ([employer] and can be reviewed at: https://www.fda.gov/media/706416/download Results must be interpreted within the c [...] were verified by the Microbiology Laboratory at [facility], CLIA Accreditation #: [id number] and CAP Accreditation #: [id number]. COVID19 SARS Source FIRER TUNNEL KILN Swab [place] MD [facility] COVID19 SARS Indication Pre-OR Procedure [facility] Specimen (Source) Anatomical Collection Method Collection Time Re ceived Time Location / / Volume Laterality Nasopharyngeal Swab 05/23/2022 9:45 05/23 AM SAFETY NET MAKER 12:32 PM SAFETY NET MAKER Jim Hernadez MD MICROBIOLOGY - GENERAL ORDER FLOR Performing Organization Address City/State/ZIP Code Phon e Number [facility] Unless otherwise noted, [place] [address] [place] all lab tests performed by: Division of Pathology and Laboratory Medicine [facility] [place] Bautista after 04/11/2022 Insurance Payer Benefit Plan Subscriber ID Effective Phone Address Typ e / Group Dates [employer] MANAGED CIGNA HMO POS [id number] 2021-Prese [address] X HMO CARE OPEN ACCESS nt [phone] [place] [address] MEDICARE MEDICARE PART [id number] 2008-Prese [phone] [facility] Medicare A AND B nt 82 SOLUTIONS [address] [place] [address] Advance Directives Code Status Date Activated Date Inactivated Comments Full Code 05/25/2022 8:46 PM 05/29/2022 2:30 PM Care Teams Key Punch Teacher Relationship Specialty Start Date End Date Sheba Velez PCP - External Primary Nurse Practitioner 11/17/[address] [place] [address] Clay Ahumada MD PCP - External Follow Pulmonary Medicine 11/17/21 [address] [place] [address] Moncho Terrell, PCP - General Thoracic Medicine 12/27/21 MD Sudeep [address] [place] [id number] Guanaco Henderson Cardiology 05/09/22 MD Vaibhav [address] [place] [phone] Keaton Rodriguez MD Consulting Physician Hematology and Oncology 03/27/[address] [place] [phone] Kaylie Mota MD Consulting Physician Pulmonary Medicine 12/20/[address] [place] [id number] Seth Fernandez, Consulting Physician Gastroenterology, 09/12/22 Hepatology and [address] [address] Mauri Barr MD Consulting Physician Pain Management 08/04/[address] [place] [id number]
--- OUTSIDE RECORDS SUMMARY | 2023-04-11 03:13 | XMS REPORT | Continuity of Care Document ---
:1945 Author Organization [facility] t Address [address] [facility] [address] [place] [address] Care Team Providers Name Role Phone Leodan Barakat Primary Care Physician SYSTEM, PROVIDER NOT IN Attending Clinician Unavailable Mauri Barr MD Attending Clinician LEODAN BARAKAT Attending Clinician Unavailable Nathanael Thompson DO Attending Clinician Doctor Unassigned, Keeler Attending Clinician Unavailable LAB90 Attending Clinician Unavailable Keaton Rodriguez MD Attending Clinician Dai Crouch MD Attending Clinician [phone] Sofy Castillo Attending Clinician SOFY ALMENDAREZ Attending Clinician Unavailable Lucia Machado MA Attending Clinician Unavailable Mona Reid APRN Attending Clinician Tana Kay MD Attending Clinician Bruna Ablarran MA Attending Clinician Unavailable TANA KAY Attending Clinician Unavailable NATHANAEL THOMPSON Attending Clinician Unavailable NATHANAEL THOMPSON Attending Clinician Unavailable HECTOR CARTER Attending Clinician Unavailable Barbi HO, Joanna Attending Clinician Josephine Jacobo APRN Attending Clinician Cande COLLAZO, Lilian Attending Clinician Norman Mendez Attending Clinician Unavailable Derrek COLLAZO, Cyndy Newberry Attending Clinician Unavailable Yung COLLAZO, Holly Attending Clinician Asad HO, Pradeep Attending Clinician Warren Hernadez MD Attending Clinician Unavailable ODIN OH Attending Clinician Unavailable Paula Montero APRN Attending Clinician WARREN HERNADEZ Attending Clinician Unavailable Caridad HO, Evelyn Attending Clinician Phyllis Bobby CRNA Attending Clinician Unavailable Candy Delcid RD Attending Clinician Galo Kapoor Attending Clinician JOSEPHINE JACOBO Attending Clinician Unavailable Ana Laura Quinn RN Attending Clinician Shara PharmD, Elvia Vaughn Attending Clinician Unavailable Yu Elmore APRN Attending Clinician Sophie HO, Kris Attending Clinician [phone] Tammy Giraldo APRN Attending Clinician Matilda Condon RN Attending Clinician Unavailable Kaylie Mota MD Attending Clinician Hector PharmD, Meredith Attending Clinician Franky Lopez RN Attending Clinician Unavailable Finn Gifford RN Attending Clinician Unavailable Darrick PharmD, Tra Attending Clinician BRINA HOLLOWAY Attending Clinician Unavailable Ambreen Nance Attending Clinician DAI CROUCH Attending Clinician Unavailable Cyndy Min APRN Attending Clinician Balaji COLLAZO, Indira Wiseman Attending Clinician Unavailable Muriel Arzola Attending Clinician Mariama Baez MA Attending Clinician Brittney INMAN, Giorgi Bates Attending Clinician Elana Yoon Attending Clinician Unavailable Sana Wilcox APRN Attending Clinician Nubia COLLAZO, Dany Newberry Attending Clinician Unavailable Brandyn SALAZAR, Susie Attending Clinician ISMAEL TONY Attending Clinician Unavailable Macario HO, Wade Metz Attending Clinician [phone] Familia HO, Holley Attending Clinician [phone] JOSE ABERNATHY Attending Clinician Unavailable Ca HO, Pedro Garcia Attending Clinician Goldie Magdaleno MD Attending Clinician Jennie Mcbride NP Attending Clinician Carine COLLAZO, Yu Allison Attending Clinician [phone] Jose Abernathy MD Attending Clinician RADIOLOGY, DEPT Attending Clinician Unavailable Shyanne Muñiz Attending Clinician Unavailable Liza HO, Jason Attending Clinician Ella Verduzco Attending Clinician Sandy Chowdhury RN Attending Clinician Unavailable CLAY AHUMADA Attending Clinician Unavailable Olimpia Valencia Attending Clinician Anika Noonan NP Attending Clinician Tristen Hanson RN Attending Clinician Unavailable LAB39 Attending Clinician Unavailable Amie HO, Brina Attending Clinician FATUMA BAUMANN Attending Clinician Unavailable SAMMIE BOWER Attending Clinician Unavailable WARREN HERNADEZ Admitting Clinician Unavailable KAYLIE MOTA Admitting Clinician Unavailable Payers Payer Name Policy Type Policy Number Effective Date Expiration Date Macy GLASS 2 [id number] 2021 00:00:00 MEDICARE-PART B 5 [id number] 2021 00:00:00 Problems Condition Condition Condition Status [...] Last U nivers joann pain joann pain 06-30 Assessmen ity of 00:00: t & Plan: [place] Sangeeta HO g of this Anderso note n might be Cancer different Center from the original. After assessmen t her symptoms are indicativ e of thoracic nerve pain. I have refilled her gabapenti n prescript ion and advised her to start with 3 times a day again and then wean off per the typical protocol we previousl y ordered. Sent to her local [facility] pharmacy. 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 Hemoglobi n hematocri t 10.1/31.3 respectiv martina. 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) (current) 3-30 Seyb old use of use of 00:00: - inhaled inhaled 00 Externa steroids steroids l COPD COPD Disease Active More (chronic (chronic 3-30 Seybol d obstructiv obstructiv 00:00: - e e 00 Externa pulmonary pulmonary l disease) disease) with with chronic chronic bronchitis [place] Disease Active More callus callus 3-30 [...] 00:00: [place] pulmonary pulmonary 00 disease disease [facility] Coronary Coronary Disease Active Unive rs arterioscl arterioscl 4-05 it y of erosis erosis 00:00: [place] 00 MD Jose Angel [facility] Gastroesop Gastroesop Disease Active U nivers hageal hageal 4-05 ity of reflux reflux 00:00: [place] disease disease 00 MD Jose Angel [facility] Hypertensi Hypertensi Disease Active U nivers ve ve 4-05 ity of disorder disorder 00:00: [place] 00 MD Jose Angel [facility] Tobacco Tobacco Disease Active Univers user user 4-05 ity of 00:00: [place] 00 MD Jose Angel [facility] Shortness Shortness Disease Active Uni vers of breath of breath 05 ity of 00:00: [place] 00 MD Jose Angel [facility] Allergies, Adverse Reactions, Alerts Allergy Allergy Status [...] n 00 CLINDAMY DRUG Active 2018-0 MD GERCIA INGREDI 4-04 Anderso 00:00: n 00 CLINDAMY [...] Anderso 00:00: n 00 CLINDAMY DRUG Active 0 MD GRECIA COOK 09-19 Anderso 00:00: n 00 CLINDAMY DRUG Active 2017-0 MD GRECIA COOK 09-19 Anderso 00:00: n 00 CLINDAMY DRUG Active 2017-0 MD GRECIA COOK 09-19 Anderso 00:00: n 00 NO KNOWN Drug Active Univers ALLERGIE Class ity of [facility] Family History Family Member Diagnosis Comments Start Date Stop Date Source Natural brother Dementia Universit y of [facility] Cance r Surveyor Natural daughter Skin cancer Univers ity of [facility] Cance r Surveyor Natural father [facility] Cance r Surveyor Natural mother Brain cancer Universi ty of [facility] Cance r Surveyor Natural son [facility] Cance r Surveyor Social History Social Habit Start Date Stop Date Quantity Comments Source Sexual orientation Univer [facility]ity of [place] MD [facility] Gender identity Universit y [facility] Exposure to 2022-09-02 2022-09-12 Not sure University of SARS-CoV-2 (event) 00:00:00 09:35:00 [facility] Alcohol intake 2022-08-07 2022-08-07 Ex-drinker University of 00:00:00 00:00:00 (finding) [facility] History of Social 2022-08-07 2022-08-07 Univers ity of function 00:00:00 00:00:00 [facility]cy ev[facility] Tobacco Comment 2022-05-25 2022-05-25 6-8 cpd x 1 Universi ty of 00:00:00 00:00:00 month Niecy evans [facility] Cigarettes smoked 2022-05-25 2022-05-25 Univers ity of current (pack per 00:00:00 00:00:00 [place] Noe Pollard ) - Reported Cancer Ce nter Cigarette 2022-05-25 2022-05-25 University of pack-years 00:00:00 00:00:00 [facility] Tobacco use and 2022-05-25 2022-05-25 Smokeless Universit y of exposure 00:00:00 00:00:00 tobacco non-user [facility] History of tobacco 1959-06-18 2022-01-12 Cigarette Smoker University of use 00:00:00 00:00:00 [facility] Education 2021-11-29 2021-11-29 10 University of 00:0000 00:00:00 Niecy evans Cancer Surveyor Sex [birth year] Universit y of 00:00:00 00:00:00 [facility] ev[facility] Smoking Status Start Date Stop Date Source Tobacco smoking [facility] [place] consumption unknown Medical Bran ch Ex-smoker 2022-05-25 00:00:00 2022-05-25 [place] HO 00:00:[address] [facility] Smokes tobacco daily 2021-09-14 00:00:00 More Seybold - External Medications Ordered Filled Start Stop Current Ordering Indication Dosage Frequency Signature Comments Components Source Medication Medication Date Date Medication? Clinician (SIG) Name Name gabapentin 2022-06 Yes Postoperati TAKE 1 Univers (NEURONTIN) 0-23 ve pain CAPSULE(30 ity of 300 mg 00:00: 0 MG) BY [place] capsule 00 MOUTH MD BRONSON Walter TIMES n DAILY Cancer Center gabapentin 2022-06 Yes Postoperati TAKE 1 Univers (NEURONTIN) 0-23 ve pain CAPSULE(30 ity of 300 mg 00:00: 0 MG) BY [place] capsule 00 MOUTH MD BRONSON TIWARI n DAILY Cancer Center gabapentin 2022- No Postoperati TAKE 1 Univers (NEURONTIN) 9-22 10-23 ve pain CAPSULE(30 ity of 300 mg 00:00: 00:00 0 MG) BY [place] capsule 00 :00 MOUTH MD BRONSON TIWARI n DAILY Cancer Center gabapentin 2022- No Postoperati TAKE 1 Univers (NEURONTIN) 9-22 10-23 ve pain CAPSULE(30 ity of 300 mg 00:00: 00:00 0 MG) BY [place] capsule 00 :00 MOUTH MD BRONSON TIWARI n DAILY Cancer Center Loratadine Yes [id number] 10mg Take 1 More (Claritin) 9-11 capsule Seybol d 10 MG oral 00:00: (10 mg - Capsule 00 total) by Externa mouth l daily. Fluconazole 2022- Yes [id number] 150mg Take 1 More 150 MG oral 02-26-12 tablet Seybo ld Tablet 00:00: 04:59 (150 mg - 00 :00 total) by Externa mouth once l for 1 dose. esomeprazol Yes 40mg Take 1 Univ ers e (NexIUM) 8-28 capsule ity of 40 MG 09:13: (40 mg) by [place] capsule 34 mouth MD every Anderso morning n before Cancer breakfast. Surveyor senna Yes 1{tbl} Take 1 Univers (SENOKOT) 8-28 tablet by ity o f 8.6 mg 09:13: mouth [place] tablet 34 every MD other day. [facility] albuterol Yes 2.5mg Inhale 3 Uni vers (PROVENTIL, 8-28 mL (2.5 ity o f VENTOLIN) 09:13: mg) by [place] 2.5 mg/3 mL 34 nebulizati (0.083%) on twice Anderso nebulizer daily. n solution Patient Cancer has been Center using 3-4 times a day esomeprazol Yes 40mg Take 1 Univ ers e (NexIUM) 8-28 capsule ity of 40 MG 09:13: (40 mg) by [place] capsule 34 mouth MD every [place] morning n before Cancer breakfast. Surveyor senna Yes 1{tbl} Take 1 Univers (SENOKOT) 8-28 tablet by ity o f 8.6 mg 09:13: mouth [place] tablet 34 every MD other day. [facility] albuterol Yes 2.5mg Inhale 3 Uni vers (PROVENTIL, 8-28 mL (2.5 ity o f VENTOLIN) 09:13: mg) by [place] 2.5 mg/3 mL 34 nebulizrosalia HO (0.083%) on twice Anderso nebulizer daily. n solution Patient Cancer has been Center using 3-4 times a day apixaban 2023- Yes Cerebral 2.5mg Take 1 U nivers (Eliquis) 02-12 08-23 venous tablet ity o f 2.5 mg 00:00: 04:59 sinus (2.5 mg) [place] tablet 00 :00 thrombosis by mouth MD every 12 Anderso (twelve) n hours for Cancer 360 days. Surveyor apixaban 2023- Yes Cerebral 2.5mg Take 1 U nivers (Eliquis) 02-12 venous tablet ity o f 2.5 mg 00:00: 04:59 sinus (2.5 mg) [place] tablet 00 :00 thrombosis by mouth MD every 12 Anderso (twelve) n hours for Cancer 360 days. Center gabapentin 0 2022- No Postoperati TAKE 1 Univers (NEURONTIN) 02-12 ve pain CAPSULE(30 ity of 300 mg 00:00: 00:00 0 MG) BY [place] capsule 00 :00 MOUTH THREE Andmaryo TIMES n DAILY Cancer Center gabapentin 0 2022- No Postoperati TAKE 1 Univers (NEURONTIN) 02-12 ve pain CAPSULE(30 ity of 300 mg 00:00: 00:00 0 MG) BY [place] capsule 00 :00 MOUTH THREE Andmaryo TIMES n DAILY Cancer Center Ondansetron Yes TAKE 1 Cony ey (ZOFRAN) 4 01-22 TABLET BY Seyb old MG oral 00:00: MOUTH - TABLET [...] - 55 Externa l Fluconazole 2022- No [id number] 150mg Take 1 More 150 MG oral 01-16 tablet Seybo ld Tablet 00:00: 00:00 (150 mg - 00 :00 total) by Externa mouth once l for 1 dose Fluconazole 2022- No Kelse y 150 MG oral 01-16 Seybold Tablet 00:00: 00:00 - 00 :00 Externa l fluconazole 2022-2022- No Unive rs (DIFLUCAN) 01-1618 ity of 150 mg 00:00: 00:00 [place] tablet 00 :00 MD Jose Angel [facility] fluconazole 2022- No Unive rs (DIFLUCAN) 8-01 08-18 ity of 150 mg 00:00: 00:00 [place] tablet 00 :00 MD Jose Angel [facility] Fluconazole 2022- No [id number] 150mg Take 1 More 150 MG oral [...] PACKET. Na Yes MIX AND More Sulfate-K 7-25 DRINK Seybol d Sulfate-Mg 00:00: DIRECTED - Sulf 00 Externa (SUPREP l BOWEL PREP KIT) 17.5-3.13-1 .6 GM/177ML oral Solution sodium,pota 2022- No MIX AND Un devante ssium,mag 7-09 02-18 DRINK ity o f sulfates 00:00: 00:00 [place] 17.5-3.13-1 00 :00 MD Verna bateman [facility] sodium,pota 2022- No MIX AND Un devante ssium,mag 7-25 08-18 DRINK ity o f sulfates 00:00: 00:00 [place] 17.5-3.13-1 00 :00 MD Verna adams [facility] Pantoprazol Yes [id number] TAKE 1 More e Sodium 40 7-14 TABLET BY Sey bold MG oral 00:00: MOUTH - Tablet 00 DAILY Externa Delayed l Response Pantoprazol Yes [id number] TAKE 1 More e Sodium 40 7-14 TABLET BY Sey bold MG oral 00:00: MOUTH - Tablet 00 DAILY Externa Delayed l Response gabapentin Yes 300mg Take 1 Univ ers 300 mg 6-23 capsule by ity of capsule 10:53: mouth in [place] [address] the Medical morning. Branch apixaban Yes 2.5mg Take 1 Univer s 2.5 mg 6-23 tablet by ity of tablet 10:53: mouth in [place] [address] the Medical morning Branch and 1 tablet in the evening. pantoprazol 2023-0 Yes 40mg Take 1 Univ ers e 40 mg EC 6-23 tablet by ity of tablet 10:53: mouth in [place] [address] the Medical morning. Branch albuterol 2023-0 Yes 2.5mg Inhale 3 Uni vers 2.5 mg /3 6-23 mL as ity of mL (0.083 10:53[place] 49 Wheezing Medical nebulizer or Branch solution Shortness of Breath. metoprolol 2023-0 Yes 50mg Take 1 Unive rs tartrate 50 6-23 tablet by ity of mg tablet 10:53: mouth in [place] [address] the Medical morning. Branch gabapentin 2023-0 Yes 300mg Take 1 Univ ers 300 mg 6-23 capsule by ity of capsule 10:53: mouth in [place] [address] the Medical morning. Branch apixaban 2023-0 Yes 2.5mg Take 1 Univer s 2.5 mg 6-23 tablet by ity of tablet 10:53: mouth in [place] [address] the Medical morning Branch and 1 tablet in the evening. pantoprazol 2023-0 Yes 40mg Take 1 Univ ers e 40 mg EC 6-23 tablet by ity of tablet 10:53: mouth in [place] [address] the Medical morning. Branch albuterol 2023-0 Yes 2.5mg Inhale 3 Uni vers 2.5 mg /3 6-23 mL as ity of mL (0.083 10:53[place] Wheezing Medical nebulizer or Branch solution Shortness of Breath. metoprolol 2023-0 Yes 50mg Take 1 Unive rs tartrate 50 6-23 tablet by ity of mg tablet 10:53: mouth in [place] [address] the Medical morning. Branch gabapentin 2023-0 Yes 300mg Take 1 Univ ers 300 mg 6-23 capsule by ity of capsule 10:53: mouth in [place] [address] the Medical morning. Branch apixaban 2023-0 Yes 2.5mg Take 1 Univer s 2.5 mg 6-23 tablet by ity of tablet 10:53: mouth in [place] [address] the Medical morning Branch and 1 tablet in the evening. pantoprazol 2023-0 Yes 40mg Take 1 Univ ers e 40 mg EC 6-23 tablet by ity of tablet 10:53: mouth in [place] [address] the Medical morning. Branch albuterol 2023-0 Yes 2.5mg Inhale 3 Uni vers 2.5 mg /3 6-23 mL as ity of mL (0.083 10:53[place] Wheezing Medical nebulizer or Branch solution Shortness of Breath. metoprolol 2023-0 Yes 50mg Take 1 Unive rs tartrate 50 6-23 tablet by ity of mg tablet 10:53: mouth in [place] [address] the Medical morning. Branch gabapentin 2023-0 Yes 300mg Take 1 Univ ers 300 mg 6-23 capsule by ity of capsule 10:53: mouth in [place] [address] the Medical morning. Branch apixaban 2023-0 Yes 2.5mg Take 1 Univer s 2.5 mg 6-23 tablet by ity of tablet 10:53: mouth in [place] [address] the Medical morning Branch and 1 tablet in the evening. pantoprazol 2023-0 Yes 40mg Take 1 Univ ers e 40 mg EC 6-23 tablet by ity of tablet 10:53: mouth in [place] [address] the Medical morning. Branch albuterol 2023-0 Yes 2.5mg Inhale 3 Uni vers 2.5 mg /3 6-23 mL as ity of mL (0.083 10:53: [place] 49 Wheezing Medical nebulizer or Branch solution Shortness of Breath. metoprolol 2023-0 Yes 50mg Take 1 Unive rs tartrate 50 6-23 tablet by ity of mg tablet 10:53: mouth in [place] [address] the Medical morning. Branch gabapentin 2023-0 Yes 300mg Take 1 Univ ers 300 mg 6-23 capsule by ity of capsule 10:53: mouth in [place] [address] the Medical morning. Branch apixaban 2023-0 Yes 2.5mg Take 1 Univer s 2.5 mg 6-23 tablet by ity of tablet 10:53: mouth in [place] [address] the Medical morning Branch and 1 tablet in the evening. pantoprazol 2023-0 Yes 40mg Take 1 Univ ers e 40 mg EC 6-23 tablet by ity of tablet 10:53: mouth in [place] [address] the Medical morning. Branch albuterol 2023-0 Yes 2.5mg Inhale 3 Uni vers 2.5 mg /3 6-23 mL as ity of mL (0.083 10:53[place] 49 Wheezing Medical nebulizer or Branch solution Shortness of Breath. metoprolol 2023-0 Yes 50mg Take 1 Unive rs tartrate 50 6-23 tablet by ity of mg tablet 10:53: mouth in [place] [address] the Medical morning. Branch gabapentin 2023-0 Yes 300mg Take 1 Univ ers 300 mg 6-23 capsule by ity of capsule 10:53: mouth in [place] [address] the Medical morning. Branch apixaban 2023-0 Yes 2.5mg Take 1 Univer s 2.5 mg 6-23 tablet by ity of tablet 10:53: mouth in [place] [address] the Medical morning Branch and 1 tablet in the evening. pantoprazol 2023-0 Yes 40mg Take 1 Univ ers e 40 mg EC 6-23 tablet by ity of tablet 10:53: mouth in [place] [address] the Medical morning. Branch albuterol 2023-0 Yes 2.5mg Inhale 3 Uni vers 2.5 mg /3 6-23 mL as ity of mL (0.083 10:53: [place] 49 Wheezing Medical nebulizer or Branch solution Shortness of Breath. metoprolol 2023-0 Yes 50mg Take 1 Unive rs tartrate 50 6-23 tablet by ity of mg tablet 10:53: mouth in [place] [address] the Medical morning. Branch gabapentin 2023-0 Yes 300mg Take 1 Univ ers 300 mg 6-23 capsule by ity of capsule 10:53: mouth in [place] [address] the Medical morning. Branch apixaban 2023-0 Yes 2.5mg Take 1 Univer s 2.5 mg 6-23 tablet by ity of tablet 10:53: mouth in [place] [address] the Medical morning Branch and 1 tablet in the evening. pantoprazol 2023-0 Yes 40mg Take 1 Univ ers e 40 mg EC 6-23 tablet by ity of tablet 10:53: mouth in [place] [address] the Medical morning. Branch albuterol 2023-0 Yes 2.5mg Inhale 3 Uni vers 2.5 mg /3 6-23 mL as ity of mL (0.083 10:53: [place] 49 Wheezing Medical nebulizer or Branch solution Shortness of Breath. metoprolol 2023-0 Yes 50mg Take 1 Unive rs tartrate 50 6-23 tablet by ity of mg tablet 10:53: mouth in [facility] 49 the Medical morning. Branch gabapentin 0 Yes 300mg Take 1 Univ ers 300 mg 6-23 capsule by ity of capsule 10:53: mouth in [place] [address] the Medical morning. Branch apixaban 0 Yes 2.5mg Take 1 Univer s 2.5 mg 6-23 tablet by ity of tablet 10:53: mouth in [place] [address] the Medical morning Branch and 1 tablet in the evening. pantoprazol 0 Yes 40mg Take 1 Univ ers e 40 mg EC 6-23 tablet by ity of tablet 10:53: mouth in [place] [address] the Medical morning. Branch albuterol Yes 2.5mg Inhale 3 Uni vers 2.5 mg /3 6-23 mL as ity of mL (0.083 10:53: [place] 49 Wheezing Medical nebulizer or Branch solution Shortness of Breath. metoprolol Yes 50mg Take 1 Unive rs tartrate 50 6-23 tablet by ity of mg tablet 10:53: mouth in [facility] 49 the Medical morning. Branch budesonide- Yes 2{puff} Inhale 2 Univers formoterol 6-23 puffs by ity o f (SYMBICORT) 00:00: [place] 160-4.5 00 MD mcg/actuati Anders[place] on inhaler [facility] Symbicort Yes INHALE 2 Cony ey 160-4.5 6-23 PUFFS BY Seybold MCG/ACT 00:00: MOUTH IN - inhalation 00 THE Externa Aerosol MORNING l AND IN THE EVENING budesonide- 2022-0 Yes 2{puff} Inhale 2 Univers formoterol 6-23 puffs by ity o f (SYMBICORT) 00:00: [place]. [place] 160-4.5 00 MD mcg/actuati Anderso on inhaler [facility] budesonide- 0 Yes [id number] 2{puff} Inhale 2 Univers formoteroL 6-23 Puffs in ity o f (SYMBICORT) 00:00: the [place] 160-4.5 00 morning Medical mcg/actuati and 2 Branch on inhaler Puffs in the evening. budesonide- 2022-0 Yes [id number] 2{puff} Inhale 2 Univers formoteroL 6-23 Puffs in ity o f (SYMBICORT) 00:00: the [place] 160-4.5 00 morning Medical mcg/actuati and 2 Branch on inhaler Puffs in the evening. budesonide- 2022-0 Yes [id number] 2{puff} Inhale 2 Univers formoteroL 6-23 Puffs in ity o f (SYMBICORT) 00:00: the [place] 160-4.5 00 morning Medical mcg/actuati and 2 Branch on inhaler Puffs in the evening. budesonide- 2022-0 Yes [id number] 2{puff} Inhale 2 Univers formoteroL 6-23 Puffs in ity o f (SYMBICORT) 00:00: the [place] 160-4.5 00 morning Medical mcg/actuati and 2 Branch on inhaler Puffs in the evening. budesonide- 2022-0 Yes [id number] 2{puff} Inhale 2 Univers formoteroL 6-23 Puffs in ity o f (SYMBICORT) 00:00: the [place] 160-4.5 00 morning Medical mcg/actuati and 2 Branch on inhaler Puffs in the evening. budesonide- 2022-0 Yes [id number] 2{puff} Inhale 2 Univers formoteroL 6-23 Puffs in ity o f (SYMBICORT) 00:00: the [place] 160-4.5 00 morning Medical mcg/actuati and 2 Branch on inhaler Puffs in the evening. budesonide- 2022-0 Yes [id number] 2{puff} Inhale 2 Univers formoteroL 6-23 Puffs in ity o f (SYMBICORT) 00:00: the [place] 160-4.5 00 morning Medical mcg/actuati and 2 Branch on inhaler Puffs in the evening. budesonide- 2022-0 Yes [id number] 2{puff} Inhale 2 Univers formoteroL 6-23 Puffs in ity o f (SYMBICORT) 00:00: the [place] 160-4.5 00 morning Medical mcg/actuati and 2 Branch on inhaler Puffs in the evening. Pseudoeph-B Yes [id number] 10mL Q.25D Take 10 mL More romphen-DM 6-01 by mouth 4 Sey bold - 00:00: times - MG/5ML oral 00 daily as Exte rna Syrup needed l Amoxicillin 2022-0 Yes [id number] 1{tbl} Take 1 More -Pot 6-01 tablet by Seybold Clavulanate 00:00: mouth 2 - 500-125 MG 00 times Externa oral Tablet daily l Gabapentin 2022-0 Yes [id number] 300mg Take 1 More 300 MG oral 6-01 capsule Seybo ld Capsule 00:00: (300 mg - 00 total) by Externa mouth l nightly Apixaban 2022-0 Yes [id number] 2.5mg Take 1 Ke lsey (Eliquis) 6-01 tablet Seybold 2.5 MG oral 00:00: (2.5 mg - Tablet 00 total) by Externa mouth 2 l times daily Pseudoeph-B 2022-0 Yes [id number] 10mL Q.25D Take 10 mL More romphen-DM 6-01 by mouth 4 y bold 00:00: times - MG/5ML oral 00 daily as Exte rna Syrup needed l Amoxicillin 2022-0 Yes [id number] 1{tbl} Take 1 More -Pot 6-01 tablet by Seybold Clavulanate 00:00: mouth 2 - 500-125 MG 00 times Externa oral Tablet daily l Gabapentin 2022-0 Yes [id number] 300mg Take 1 More 300 MG oral 6-01 capsule Seybo ld Capsule 00:00: (300 mg - 00 total) by Externa mouth l nightly Apixaban 3-0 Yes [id number] 2.5mg Take 1 Ke lsey (Eliquis) 6-01 tablet Seybold 2.5 MG oral 00:00: (2.5 mg - Tablet 00 total) by Externa mouth 2 l times daily Gabapentin 2022-0 Yes [id number] 300mg Take 1 More 300 MG oral 6-01 capsule Seybo ld Capsule 00:00: (300 mg - 00 total) by Externa mouth l nightly Apixaban 3-0 Yes [id number] 2.5mg Take 1 Ke lsey (Eliquis) 6-01 tablet Seybold 2.5 MG oral 00:00: (2.5 mg - Tablet 00 total) by Externa mouth 2 l times daily Pseudoeph-B 2022- No [id number] 10mL Q.25D Take 10 mL More romphen-DM 11-16 by mouth 4 Se ybold 30-2-10 00:00: 00:00 times - MG/5ML oral 00 :00 daily as Exte rna Syrup needed l Amoxicillin 2022- No [id number] 1{tbl} Take 1 More -Pot 11-16 tablet by Seybold Clavulanate 00:00: 00:00 mouth 2 - 500-125 MG 00 :00 times Externa oral Tablet daily l bromphenira 2022- No 10mL Take 10 mL Univers mine-pseudo 11-16 by mouth. it y of ephedrine-D 00:00: 00:00 [facility] - 00 :00 MD mg/5 mL Anderso syrup n [facility] bromphenira 2022- No 10mL Take 10 mL Univers mine-pseudo 11-16 by mouth. it y of ephedrine-D 00:00: 00:00 [facility] - 00 :00 MD mg/5 mL Anderso syrup n [facility] gabapentin Yes Postoperati TAKE 1 Univers (NEURONTIN) 5-30 ve pain CAPSULE(30 ity of 300 mg 00:00: 0 MG) BY [place] capsule 00 MOUTH MD BRONSON TIWARI n DAILY [facility] gabapentin 2022- No Postoperati TAKE 1 Univers (NEURONTIN) 5-30 08-28 ve pain CAPSULE(30 ity of 300 mg 00:00: 00:00 0 MG) BY [place] capsule 00 :00 MOUTH MD BRONSON TIWARI n DAILY [facility] gabapentin 2022- No Postoperati TAKE 1 Univers (NEURONTIN) 5-30 08-28 ve pain CAPSULE(30 ity of 300 mg 00:00: 00:00 0 MG) BY [place] capsule 00 :00 MOUTH MD BRONSON TIWARI n DAILY [facility] apixaban Yes Cerebral [...] using 3-4 times a day Pantoprazol Yes [id number] TAKE 1 More e Sodium 40 5-18 TABLET BY Ricardo bold MG oral 00:00: MOUTH - Tablet 00 DAILY Externa Delayed l Response apixaban 2022- No Cerebral 2.5mg Take 1 U nivers (Eliquis) 5-10 05-24 venous tablet ity o f 2.5 mg 00:00: 00:00 sinus (2.5 mg) [place] tablet 00 :00 thrombosis by mouth MD every 12 Anderso (twelve) n hours. 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 [facility] Eliquis 2.5 2022- No Cerebral TAKE 1 Univers mg tablet 5-10 05-10 venous TABLET(2.5 i ty of 00:00: 00:00 sinus MG) BY [place] 00 :00 thrombosis MOUTH EVERY 12 Anderso HOURS n [facility] Center Eliquis 2.5 2022- No Cerebral TAKE 1 Univers mg tablet 5-10 05-10 venous TABLET(2.5 i ty of 00:00: 00:00 sinus MG) BY [place] 00 :00 thrombosis MOUTH EVERY 12 Anderso HOURS n [facility] Eliquis 2.5 2022- No Cerebral TAKE 1 Univers mg tablet 5-10 05-10 venous TABLET(2.5 i ty of 00:00: 00:00 sinus MG) BY [place] 00 :00 thrombosis MOUTH EVERY 12 Anderso HOURS n [facility] Center gabapentin 2022- No Postoperati TAKE 1 Univers (NEURONTIN) 4-24 05-30 ve pain CAPSULE(30 ity of 300 mg 00:00: 00:00 0 MG) BY [place] capsule 00 :00 MOUTH THREE Jose Angel TIMES n DAILY [facility] Center gabapentin 2022- No Postoperati TAKE 1 Univers (NEURONTIN) 4-24 05-30 ve pain CAPSULE(30 ity of 300 mg 00:00: 00:00 0 MG) BY [place] capsule 00 :00 MOUTH THREE Andmaryo TIMES n DAILY [facility] gabapentin 2022-2022- No Postoperati TAKE 1 Univers (NEURONTIN) 4-24 05-30 ve pain CAPSULE(30 ity of 300 mg 00:00: 00:00 0 MG) BY [place] capsule 00 :00 MOUTH THREE Andanca TIMES n DAILY [facility] atorvastati Yes TAKE 1 Univ ers n (LIPITOR) 4-19 TABLET BY ity of 40 mg 00:00: MOUTH ONCE [place] tablet 00 DAILY MD [facility] pantoprazol Yes TAKE 1 Univ ers e 4-19 TABLET BY ity of (PROTONIX) 00:00: MOUTH [place] 40 mg EC 00 DAILY [facility] pantoprazol Yes TAKE 1 Univ ers e 4-19 TABLET BY ity of (PROTONIX) 00:00: MOUTH [place] 40 mg EC 00 DAILY MD tablet [facility] ondansetron Yes TAKE 1 Univ ers (ZOFRAN) 8 4-19 TABLET BY ity of mg tablet 00:00: MOUTH [place] 00 EVERY 8 MD HOURS Anderso [facility] VOMITING alendronate Yes TAKE 1 Univ ers (FOSAMAX) 4-19 TABLET BY ity o f 70 mg 00:00: MOUTH ONCE [place] tablet 00 WEEKLY ON MD AN EMPTY Anderso STOMACH n BEFORE Cancer BREAKFAST. 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 Tablet times l daily Baclofen 10 Yes [id number] 10mg Take 1 More MG oral 4-19 [...] AND TAKE WITH 8OZ OF WATER pantoprazol 0 Yes TAKE 1 Univ ers e 4-19 TABLET BY ity of (PROTONIX) 00:00: MOUTH [place] 40 mg EC 00 DAILY [facility] TAKE 1 Univ ers (ZOFRAN) 8 4-19 TABLET BY ity of mg tablet 00:00: MOUTH [place] 00 EVERY 8 MD HOURS Anderso NEEDED n [facility] VOMITING alendronate Yes TAKE 1 Univ ers (FOSAMAX) 4-19 TABLET BY ity o f 70 mg 00:00: MOUTH ONCE [place] tablet 00 WEEKLY ON AN EMPTY Jose Angel STOMACH n BEFORE Cancer BREAKFAST. Center REMAIN UPRIGHT FOR 30 MINUTES AND TAKE WITH 8OZ OF WATER atorvastati 2022- No TAKE 1 Uni vers n (LIPITOR) 10-04-18 TABLET BY it y of 40 mg 00:00: 00:00 MOUTH ONCE [place] tablet 00 :00 DAILY MD Jose Angel [facility] Dulera 2022- No INHALE 1 Univer s 100-5 10-04-18 PUFF BY ity of mcg/actuati 00:00: 00:00 MOUTH [place] on HFAA 00 :00 TWICE MD DAILY. Jose Angel wiseman [facility] dexAMETHaso 2022- No Unive rs ne 10-04-18 ity of (DECADRON) 00:00: 00:00 [place] 4 mg tablet 00 :00 MD Jose Angel [facility] baclofen 2022- No Univers (LIORESAL) 10-04-18 ity of 10 mg 00:00: 00:00 [place] tablet 00 :00 MD Jose Angel [facility] atorvastati 2022- No TAKE 1 Uni vers n (LIPITOR) 10-04-18 TABLET BY it y of 40 mg 00:00: 00:00 MOUTH ONCE [place] tablet 00 :00 DAILY MD Jose Angel wiseman [facility] Dulera 2022- No INHALE 1 Univer s 100-5 10-04 08-18 PUFF BY ity of mcg/actuati 00:00: 00:00 MOUTH [place] on HFAA 00 :00 TWICE MD DAILY. Jose Angel [facility] dexAMETHaso 2022- No Unive rs ne 10-04-18 ity of (DECADRON) 00:00: 00:00 [place] 4 mg tablet 00 :00 [facility] baclofen 2022-0 2022- No Univers (LIORESAL) 10-04-18 ity of 10 mg 00:00: 00:00 [place] tablet 00 :00 MD Jose Angel [facility] Tramadol 2022- No [id number] 50mg Take 1 More HCl 10-04 102 tablet (50 Seybold (ULTRAM) 50 00:00: 00:00 mg total) - MG oral 00 :00 by mouth 2 Floorworker a Tablet times l daily Baclofen 10 2022- No [id number] 10mg Take 1 More MG oral 10-04 [...] Tablet 00:00: - 00 Externa l levoFLOXaci 0 Yes TAKE 1 Cony ey n 500 MG 10-01 TABLET BY Seybol d oral Tablet 00:00: MOUTH - 00 EVERY DAY Externa UNTIL ALL l TAKEN Dulera 0 Yes More 100-5 -16 Seybold MCG/ACT 00:00: - inhalation 00 Externa [...] DAY Externa UNTIL ALL l TAKEN Dulera 2022-0 2022- No More 100-5 10-01 Seybold MCG/ACT 00:00: 00:00 - inhalation 00 :00 Externa Aerosol l predniSONE 2022-0 2022- No TAKE 1 Cony ey (DELTASONE) 10-01 TABLET BY Se ybold 20 MG oral 00:00: 00:00 MOUTH - tablet 00 :00 TWICE Externa DAILY l UNTIL ALL TAKEN. Eliquis 2.5 Yes More MG oral 12 Seybold Tablet 00:00: - 00 Externa l Eliquis 2.5 2022- No Kelse y MG oral 4-12 11-16 Seybold Tablet 00:00: 00:00 - 00 :00 [...] MG) BY [place] capsule 00 MOUTH MD BRONSON Walter TIMES n DAILY Cancer Surveyor Gabapentin Yes More 300 MG oral 09-01 Seybold Capsule 00:00: - 00 Externa l Gabapentin 2022-2022- No More 300 MG oral 09-01 Seybold Capsule 00:00: 00:00 - 00 :00 Externa l gabapentin 2022-2022- No Postoperati TAKE 1 Univers (NEURONTIN) 09-01-24 ve pain CAPSULE(30 ity of 300 mg 00:00: 00:00 0 MG) BY [place] capsule 00 :00 MOUTH MD BRONOSN Andrewso TIMES n DAILY Cancer Surveyor gabapentin 2022- No Postoperati TAKE 1 Univers (NEURONTIN) 09-01-24 ve pain CAPSULE(30 ity of 300 mg 00:00: 00:00 0 MG) BY [place] capsule 00 :00 MOUTH MD BRONSON Walter TIMES n DAILY [facility] Surveyor gabapentin 2022- No Postoperati TAKE 1 Univers (NEURONTIN) 09-01-24 ve pain CAPSULE(30 ity of 300 mg 00:00: 00:00 0 MG) BY [place] capsule 00 :00 MOUTH MD BRONSON Walter TIMES n DAILY Cancer Surveyor Chlorhexidi 2022- No Kelse y ne 08-16-19 Seybold Gluconate 00:00: 00:00 - 0.12 % 00 :00 Externa mouth/throa l t Solution gabapentin 2022- No Postoperati 300mg Take 1 Univers (Neurontin) 2-17 ve pain capsule i ty of 300 mg 00:00: 00:00 (300 mg) [place] capsule 00 :00 by mouth Lilly brown) Darrylo times a n day. [facility] Center gabapentin 2022- No Postoperati 300mg Take 1 Univers (Neurontin) 2- 03-17 ve pain capsule i ty of 300 mg 00:00: 00:00 (300 mg) [place] capsule 00 :00 by mouth Lilly brown) Darrylo times a n day. Cancer Center gabapentin [...] (three) Anderso times a n day. Cancer Surveyor Prochlorper Yes More azine 2-15 Seybold Maleate [...] MD every 12 Anderso (twelve) n hours. [facility] Center prochlorper Yes Nausea 5mg Take 1 [...] Nausea 5mg Take 1 U nivers azine 07-31-21 tablet (5 ity of (Compazine) 00:00: 00:00 [...] of mg tablet 00:00: 00:00 mg) by [place] 00 :00 mouth MD daily. Anderso Take only n if needed Cancer [facility] Center decrease use as pain improves traMADol 2022- No pain 50mg Take 1 Univer s (ULTRAM) 50 07-27 tablet (50 i ty of mg tablet 00:00: 00:00 mg) by [place] 00 :00 mouth MD daily. Anderso Take only n if needed [facility] Center decrease use as pain improves traMADol 2022- No pain 50mg Take 1 Univer s (ULTRAM) 50 07-2717 tablet (50 i ty of mg tablet 00:00: 00:00 mg) by [place] 00 :00 mouth MD daily. Anderso Take only n if needed [facility] decrease use as pain improves traMADol 2022- No pain 50mg Take 1 Univer s (ULTRAM) 50 07-27 tablet (50 i ty of mg tablet 00:00: 00:00 mg) by [place] 00 :00 mouth MD daily. Anderso Take only n if needed [facility] decrease use as pain improves ALBUTEROL Yes [id number] INHALE TWO More HFA 108 (90 1-20 PUFFS BY Seyb [employer]) 00:00: MOUTH - MCG/ACT IN 00 EVERY 6 Floorworker a AERS HOURS l NEEDED FOR WHEEZING ALBUTEROL Yes [id number] INHALE TWO More HFA 108 (90 1-20 PUFFS BY Seyb [employer]) 00:00: MOUTH - MCG/ACT IN 00 EVERY 6 Floorworker a AERS HOURS l NEEDED FOR WHEEZING ALBUTEROL 0 Yes [id number] INHALE TWO More HFA 108 (90 1-20 PUFFS BY Seyb [employer]) 00:00: MOUTH - MCG/ACT IN 00 EVERY 6 Floorworker a AERS HOURS l NEEDED FOR WHEEZING ALBUTEROL 0 Yes [id number] INHALE TWO More HFA 108 (90 1-20 PUFFS BY Seyb [employer]) 00:00: MOUTH - MCG/ACT IN 00 EVERY 6 Floorworker a AERS HOURS l NEEDED FOR WHEEZING [...] (100 mg) daily for 7 days. gabapentin 2022-0 2022- No Postoperati Take 1 Univers (NEURONTIN) 06-30 ve pain capsule i ty of 100 mg 00:00: 05:59 (100 mg) [place] capsule 00 :00 by mouth 3 MD (three) Anderso times a n day for 7 Cancer days, THEN Center 1 capsule (100 mg) twice daily for 7 days, THEN 1 capsule (100 mg) daily for 7 days. Albuterol Yes [id number] 2.5mg Q4H Take 2.5 More Sulfate 2.5 1-05 mg by Seybold MG/0.5ML 00:00: nebulizati - inhalation 00 on every 4 Ext nikita Inhalant hours as l Solution needed for wheezing Albuterol 2022-0 Yes [id number] 2.5mg Q4H Take 2.5 More Sulfate 2.5 1-05 mg by Seybold MG/0.5ML 00:00: nebulizati - inhalation 00 on every 4 Ext nikita Inhalant hours as l Solution needed for wheezing Albuterol 2022-0 Yes [id number] 2.5mg Q4H Take 2.5 More Sulfate 2.5 1-05 mg by Seybold MG/0.5ML 00:00: nebulizati - inhalation 00 on every 4 Ext nikita Inhalant hours as l Solution needed for wheezing Albuterol 2022-0 Yes [id number] 2.5mg Q4H Take 2.5 More Sulfate 2.5 1-05 mg by Seybold MG/0.5ML 00:00: nebulizati - inhalation 00 on every 4 Ext nikita Inhalant hours as l Solution needed for wheezing Amoxicillin 2022-0 2022- No [id number] 1{tbl} Take 1 More -Pot 1-05 -19 tablet by Seybold Clavulanate 00:00: 00:00 mouth 2 - (Augmentin) 00 :00 times Externa 500-125 MG daily l oral Tablet methylPREDN 2022- No [id number] 1{sunil} Take 1 sunil More ISolone 4 [...] - 17 Externa l Gabapentin 2021-06 Yes [id number] 100mg Take 1 More 100 MG oral 2-30 [id number] capsule Seyb old Capsule 00:00: (100 mg - 00 total) by Externa mouth 3 l times daily Tramadol 2021-06 Yes [id number] 50mg Take 1 More HCl 50 MG 2-30 [id number] tablet (50 Sey bold oral Tablet 00:00: mg total) - 00 by mouth 2 Externa times l daily Amoxicillin 2021-06 Yes [id number] 1{tbl} Take 1 More -Pot 2-30 tablet by Seybold Clavulanate 00:00: mouth 2 - (Augmentin) 00 times Externa 500-125 MG daily l oral Tablet Gabapentin 2021-06 Yes [id number] 100mg Take 1 More 100 MG oral 2-30 [id number] capsule Seyb old Capsule 00:00: (100 mg - 00 total) by Externa mouth 3 l times daily Gabapentin 2021-06- No [id number] 100mg Take 1 More 100 MG oral 2-30 11-16 [id number] capsule Sey bold Capsule 00:00: 00:00 (100 mg - 00 :00 total) by Externa mouth 3 l times daily Tramadol 2021-06- No [id number] 50mg Take 1 More HCl 50 MG 2-30 19 [id number] tablet (50 Se ybold oral Tablet 00:00: 00:00 mg total) - 00 :00 by mouth 2 Externa times l daily Azithromyci 2021-06- No [id number] Take 2 More n 250 MG 2-30 10-04 tablets by Seyb old oral Tablet 00:00: 00:00 mouth on - 00 :00 day 1 then Externa 1 tablet l by mouth daily for 4 days thereafter . Azithromyci 2021-06- No [id number] Take 2 More n 250 MG 206-22 tablets by Seyb old oral Tablet 00:00: 05:59 mouth on - 00 :00 day 1 then Externa 1 tablet l by mouth daily for 4 days thereafter . 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 Noe Pollard transdermal Remove & Kishore rso patch Discard n patch Cancer within 12 Center hours or as directed by . Remove old patch(es) before replacing new patch(es). lidocaine 2021-06 Yes Adenocarcin 1{patch Place 1 Univers (LIDODERM) 2- muriel, NOS of } patch on ity of 5% (700 00:00: upper lobe, the skin [place] mg/patch) 00 lung <Left> daily. Noe Pollard transdermal Remove & Kishore rso patch Discard n patch Cancer within 12 Center hours or as directed by . Remove old patch(es) before replacing new patch(es). lidocaine 2021-06- No Adenocarcin 1{patch Place 1 Univers (LIDODERM) 2- 08-21 muriel, NOS of } patch on ity of 5% (700 00:00: 00:00 upper lobe, the skin [place] mg/patch) 00 :00 lung <Left> daily. Noe Pollard transdermal Remove & Kishore rso patch Discard n patch Cancer within 12 Center hours or as directed by . Remove old patch(es) before replacing new patch(es). lidocaine 2021-06- No Adenocarcin 1{patch Place 1 Univers (LIDODERM) 213 08-21 muriel, NOS of } patch on ity [...] Adenocarcin 5mg Take 1 Univers (Eliquis) 5 07-30-13 muriel of left tablet (5 ity of mg tablet 00:00: 00:00 lung mg) by [place] 00 :00 mouth MD every 12 Anderso (twelve) n hours. [facility] apixaban 2021-06- No Adenocarcin 5mg Take 1 Univers (Eliquis) 5 07-30-13 muriel of left tablet (5 ity of mg tablet 00:00: 00:00 lung mg) by [place] 00 :00 mouth MD every 12 Anderso (twelve) n hours. [facility] apixaban 2021-06- No Adenocarcin 5mg Take 1 Univers (Eliquis) 5 07-30 muriel of left tablet (5 ity of mg tablet 00:00: 00:00 lung mg) by [place] 00 :00 mouth MD every 12 Anderso (twelve) n hours. [facility] apixaban 2021-06- No Adenocarcin 5mg Take 1 Univers (Eliquis) 5 07-3013 muriel of left tablet (5 ity of mg tablet 00:00: 00:00 lung mg) by [place] 00 :00 mouth MD every 12 Anderso (twelve) n hours. [facility] traMADol 2021-06- No pain 50mg Take 1 Univer s (ULTRAM) 50 07-30 tablet (50 i ty of mg tablet 00:00: 00:00 mg) by [place] 00 :00 mouth MD every 6 Anderso (six) n hours as Cancer needed for Center moderate pain. Take only if needed and decrease use as pain improves traMADol 2021-06- No pain 50mg Take 1 Univer s (ULTRAM) 50 07-30 tablet (50 i ty of mg tablet 00:00: 00:00 mg) by [place] 00 :00 mouth MD every 6 Anderso (six) n hours as Cancer needed for Center moderate pain. Take only if needed and decrease use as pain improves traMADol 2021-06- No pain 50mg Take 1 Univer s (ULTRAM) 50 07-30 tablet (50 i ty of mg tablet 00:00: 00:00 mg) by [place] 00 :00 mouth MD every 6 Anderso (six) n hours as Cancer needed for Center moderate pain. Take only if needed and decrease use as pain improves traMADol 2021-06- No pain 50mg Take 1 Univer s (ULTRAM) 50 07-30 tablet (50 i ty of mg tablet 00:00: 00:00 mg) by [place] 00 :00 mouth MD every 6 Anderso [...] (six) n hours for Cancer 10 days. Surveyor acetamino 2021-06 No Adenocarcin 1000mg Take 2 Univers en 07-30 muriel, NOS of tablets ity of (TYLENOL) 00:00: 05:59 upper lobe, (1,000 mg) [place] 500 mg 00 :00 lung <Left> by mouth MD tablet every 6 Anderso (six) n hours for Cancer 10 days. Surveyor acetaminoph 2021-06 No Adenocarcin 1000mg Take 2 Univers en 07-30 muriel, NOS of tablets ity of (TYLENOL) 00:00: 05:59 upper lobe, (1,000 mg) [place] 500 mg 00 :00 lung <Left> by mouth MD tablet every 6 Anderso (six) n hours for Cancer 10 days. Surveyor acetaminoph 2021-06 No Adenocarcin 1000mg Take 2 Univers en 07-30 muriel, NOS of tablets ity of (TYLENOL) 00:00: 05:59 upper lobe, (1,000 mg) [place] 500 mg 00 :00 lung <Left> by mouth MD tablet every 6 Anderso (six) n hours for Cancer 10 days. Center ProAir HFA 2021-06 Yes [id number] INHALE TWO More 108 (90 2-07 PUFFS BY [employer]) 00:00: MOUTH - MCG/ACT 00 EVERY 6 Externa inhalation HOURS l Aerosol NEEDED FOR Solution WHEEZING Sennosides 2021-06 Yes 1{tbl} Take 1 Jarrett sey 8.6 MG oral 1-16 tablet by Sey bold Tablet 13:13: mouth - 53 Externa l Acetaminoph 2021-06 Yes [id number] 1{tbl} Q4H Take 1 More en-Codeine 1-16 [id number] tablet by Se ybold 300-30 MG 00:00: mouth - oral Tablet 00 every 4 Exter na hours as l needed for pain Scopolamine 2021-06 Yes [id number] 1{patch Place 1 More (TRANSDERM- 1-16 } patch onto Se ybold SCOP) 1 00:00: the skin - MG/3DAYS 00 every 72 Externa transdermal hours as l PATCH 72 HR needed Promethazin 2021-06 Yes [id number] 25mg Q.25D Take 1 More e HCl 25 MG 1-16 tablet (25 Se ybold oral Tablet 00:00: mg total) - 00 by mouth Externa every 6 l hours as needed for nausea Acetaminoph 2021-06 Yes [id number] 1{tbl} Q4H Take 1 More en-Codeine 1-16 [id number] tablet by Se ybold 300-30 MG 00:00: mouth - oral Tablet 00 every 4 Exter na hours as l needed for pain Scopolamine 2021-06 Yes [id number] 1{patch Place 1 More (TRANSDERM- 1-16 } patch onto Se ybold SCOP) 1 00:00: the skin - MG/3DAYS 00 every 72 Externa transdermal hours as l PATCH 72 HR needed Promethazin 2021-06 Yes [id number] 25mg Q.25D Take 1 More e HCl 25 MG 1-16 tablet (25 Se ybold oral Tablet 00:00: mg total) - 00 by mouth Externa every 6 l hours as needed for nausea Scopolamine 2021-06 Yes [id number] 1{patch Place 1 More (TRANSDERM- 1-16 } patch onto Se ybold SCOP) 1 00:00: the skin - MG/3DAYS 00 every 72 Externa transdermal hours as l PATCH 72 HR needed Promethazin 2021-06 Yes [id number] 25mg Q.25D Take 1 More e HCl 25 MG 16 tablet (25 Se ybold oral Tablet 00:00: mg total) - 00 by mouth Externa every 6 l hours as needed for nausea Scopolamine 2021-06- No [id number] 1{patch Place 1 More (TRANSDERM- -16 11-16 } patch onto S eybold SCOP) 1 00:00: 00:00 the skin - MG/3DAYS 00 :00 every 72 Externa transdermal hours as l PATCH 72 HR needed Promethazin 2021-06- No [id number] 25mg Q.25D Take 1 More e HCl 25 MG 07-03 tablet (25 S eybold oral Tablet 00:00: 00:00 mg total) - 00 :00 by mouth Externa every 6 l hours as needed for nausea acetaminoph 2021-06- No Unive rs en-codeine 07-03 ity of (TYLENOL 00:00: 00:00 [place] #3) 300 00 :00 MD mg-30 mg Anderso tablet n [facility] acetaminoph 2021-06- No Unive rs en-codeine 07-03 ity of (TYLENOL 00:00: 00:00 [place] #3) 300 00 :00 MD mg-30 mg Anderso tablet n [facility] acetaminoph 2021-06- No Unive rs en-codeine 07-03 ity of (TYLENOL 00:00: 00:00 [place] #3) 300 00 :00 MD mg-30 mg Anderso tablet n [facility] acetaminoph 2021-06- No Unive rs en-codeine 07-03 ity of (TYLENOL 00:00: 00:00 [place] #3) 300 00 :00 MD mg-30 mg Anderso tablet n [facility] promethazin 2021-06- No Unive rs e 07-03 ity of (PHENERGAN) 00:00: 00:00 [place] 25 mg 00 :00 MD tablet Anderso [facility] scopolamine 2021-06- No Unive rs (TRANSDERM- 07-03 ity of SCOP) 1.5 00:00: 00:00 [place] mg 00 :00 MD transdermal Anderso patch [facility] promethazin 2021-06- No Unive rs e 07-03 ity of (PHENERGAN) 00:00: 00:00 [place] 25 mg 00 :00 MD tablet Anderso [facility] scopolamine 2021-06- No Unive rs (TRANSDERM- 07-03 ity of SCOP) 1.5 00:00: 00:00 [place] mg 00 :00 MD [facility]dermal [facility] Unive rs e 07-03 ity of (PHENERGAN) 00:00: 00:00 [place] 25 mg 00 :00 MD tablet Anderso [facility] scopolamine 2021-06- No Unive rs (TRANSDERM- 07-03 ity of SCOP) 1.5 00:00: 00:00 [place] mg 00 :00 MD transdermal [facility] No Unive rs e 07-03 ity of (PHENERGAN) 00:00: 00:00 [place] 25 mg 00 :00 MD tablet Anderso [facility] scopolamine 2021-06- No Unive rs (TRANSDERM- 07-03 ity of SCOP) 1.5 00:00: 00:00 [place] mg 00 :00 MD transdermal Anderso patch [facility] esomeprazol 2021-06 Yes 40mg Take 40 mg Univers e (NexIUM) 0-28 by mouth ity o f 40 MG 13:19: every [place] capsule 53 morning [facility] senna 2021-06 Yes 1{tbl} Take 1 Univers (SENOKOT) 0-28 tablet by ity o f 8.6 mg 13:19: mouth. [place] [facility] Ond[facility]-06 Yes More (ZOFRAN) 8 [...] 45 :00 daily. (1,000 Anderso unit) n [facility] cholecalcif 2021-06- No 1000U Take 1,000 Univers rick, 0-03 10-03 Units by ity of vitamin D3, 08:19: 00:00 mouth [place] 25 mcg 45 :00 daily. (1,000 Anderso unit) n [facility] cholecalcif 2021-06- No 1000U Take 1,000 Univers rick, 0-03 10-03 Units by ity of vitamin D3, 08:19: 00:00 mouth [place] 25 mcg 45 :00 daily. (1,000 Andmaryo unit) bowen [facility] budonide- 2021-06- No Inhale by Univers formoterol 0-03 10-03 mouth ity of (SYMBICORT) 08:19: 00:00 twice [place] 160-4.5 39 :00 daily. mcg/ruth Walter on inhaler [facility] budesonide- 2021-06- No Inhale by Univers formoterol 0-03 10-03 mouth ity of (SYMBICORT) 08:19: 00:00 [place] 160-4.5 39 :00 daily. MD morris/ruth Walter on inhaler [facility] budesonide- 2021-06- No Inhale by Univers formoterol 0-03 10-03 mouth ity of (SYMBICORT) 08:19: 00:00 [place] 160-4.5 39 :00 daily. MD ezio Walter on inhaler [facility] ascorbic 2021-06- No 500mg Take 500 Uni vers acid 0-03 10-03 mg by ity of (VITAMIN C) 08:19: 00:00 mouth [place] 500 mg 14 :00 daily. MD ocampo [facility] ascorbic 2021-06 No 500mg Take 500 Uni vers acid 0-03 10-03 mg by ity of (VITAMIN C) 08:19: 00:00 mouth [place] 500 mg 14 :00 daily. MD oc[facility]o [facility] ascorbic 2021-06 No 500mg Take 500 Uni vers acid 0-03 10-03 mg by ity of (VITAMIN C) 08:19: 00:00 mouth [place] 500 mg 14 :00 daily. MD ocampo [facility] calcium 2021-06- No 1{tbl} Take 1 Unive rs carbonate 0-03 10-03 tablet by ity of (CALCIUM 08:19: 00:00 mouth [place] 500 ORAL) 01 :00 daily. MD Walter [facility] calcium 2021-06- No 1{tbl} Take 1 Unive rs carbonate 0-03 10-03 tablet by ity of (CALCIUM 08:19: 00:00 mouth [place] 500 ORAL) 01 :00 daily. MD Jose Angel wiseman [facility] calcium 2021-06- No 1{tbl} Take 1 Unive rs carbonate 0-03 10-03 tablet by ity of (CALCIUM 08:19: 00:00 mouth [place] 500 ORAL) 01 :00 daily. MD Jose Angel wiseman [facility] baclofen Yes 3 (three) Univ ers (LIORESAL) 9-23 times a ity of 10 mg 00:00: day as [place] tablet 00 needed. MD Jose Angel wiseman [facility] Baclofen 10 Yes [id number] 10mg Take 1 More MG oral 9-23 tablet (10 Seybol d Tablet 00:00: mg total) - 00 by mouth 3 Externa times l daily Baclofen 10 Yes [id number] 10mg Take 1 More MG oral 9-23 tablet (10 Seybol d Tablet 00:00: mg total) - 00 by mouth 3 Externa times l daily Baclofen 10 2022- No [id number] 10mg Take 1 More MG oral 9- 04-19 tablet (10 Seybo ld Tablet 00:00: 00:00 mg total) - 00 :00 by mouth 3 Externa times l daily baclofen 2022- No 3 (three) Uni vers (LIORESAL) 03-10 03-28 times a ity o f 10 mg 00:00: 00:00 day as [place] tablet 00 :00 needed. MD Jose Angel wiseman [facility] baclofen 2022- No 3 (three) Uni vers (LIORESAL) 03-10-28 times a ity o f 10 mg 00:00: 00:00 day as [place] tablet 00 :00 needed. MD Jose Angel wiseman [facility] baclofen 2022- No 3 (three) Uni vers (LIORESAL) 03-10-28 times a ity o f 10 mg 00:00: 00:00 day as [place] tablet 00 :00 needed. MD Jose Angel wiseman [facility] baclofen 2022- No 3 (three) Uni vers (LIORESAL) 03-10-28 times a ity o f 10 mg 00:00: 00:00 day as [place] tablet 00 :00 needed. MD Anderso [facility] atorvastati Yes Univer s n (LIPITOR) -20 ity of 40 mg 00:00: [place] tablet 00 MD [facility] atorvasti 2022- No 40mg Take 1 Uni vers n (LIPITOR) 03-07 tablet (40 i ty of 40 mg 00:00: 00:00 mg) by [place] tablet 00 :00 [facility] No 40mg Take 1 Uni vers n (LIPITOR) 03-07 tablet (40 i ty of 40 mg 00:00: 00:00 mg) by [place] tablet 00 :00 mouth [facility]. [facility]- No 40mg Take 1 Uni vers n (LIPITOR) 03-07 tablet (40 i ty of 40 mg 00:00: 00:00 mg) by [place] tablet 00 :00 mouth at MD bedtime. Jose Angel [facility] atorvastati 2022- No 40mg Take 1 Uni vers n (LIPITOR) 03-07 tablet (40 i ty of 40 mg 00:00: 00:00 mg) by [place] tablet 00 :00 mouth at bedtime. Jose Angel [facility] esomeprazol Yes 40mg Take 40 mg Univers e (NexIUM) 9-12 by mouth ity o f 40 MG 09:22: every [place] capsule 18 morning MD before Andanca marina. [facility] calcium Yes 1{tbl} Take 1 Univer s carbonate 9-12 tablet by ity o f (CALCIUM 09:22: mouth [place] 500 ORAL) 18 daily. MD [facility] cholecalcif Yes 1000U Take 1,000 Univers rick, 9-12 Units by ity of vitamin D3, 09:22: mouth [place] 25 mcg 18 daily. (1,000 Anderso unit) bowen capsule [facility] ascorbic Yes 500mg Take 500 Univ ers acid 9-12 mg by ity of (VITAMIN C) 09:22: mouth [place] 500 mg 18 daily. tablet [facility] budesonide- Yes Inhale by U nivers formoterol 9-12 mouth ity of (SYMBICORT) 09:22: twice [place] 160-4.5 18 daily. MD morris/acturosalia Andanca on inhaler n [facility] apixaban Yes Adenocarcin 5mg Take 1 Univers (Eliquis) 5 9-12 muriel of left tablet (5 ity of mg tablet 00:00: lung mg) by [place] 00 mouth every 12 Anderso (twelve) n hours. [facility] fluticasone Yes Simple 1{puff} Inhale 1 Univers propion-funmi 9-12 chronic puff by it y of meteroL 00:00: bronchitis mouth [place] 232-14 00 twice mcg/acturosalia daily. Darryl o on aepb n [facility] apixaban Yes Adenocarcin 5mg Take 1 Univers (Eliquis) 5 9-12 muriel of left tablet (5 ity of mg tablet 00:00: lung mg) by [place] 00 mouth every 12 Anderso (twelve) n hours. [facility] fluticasone Yes Simple 1{puff} Inhale 1 Univers propion-funmi 9-12 chronic puff by it y of meteroL 00:00: bronchitis mouth [place] 232-14 00 twice mcg/actuati daily. Darryl o on aepb n [facility] Apixaban 5 Yes 5mg 5 mg More MG oral 9- Seybold Tablet 00:00: - 00 Externa l Apixaban 5 0 Yes 5mg 5 mg More MG oral - [place] Tablet 00:00: - 00 Externa l Apixaban 5 2021-0 Yes 5mg 5 mg More MG oral - [place] Tablet 00:00: - 00 Externa l Apixaban 5 2021-0 2022- No 5mg 5 mg More MG oral 02-27 06 [place]bold Tablet 00:00: 00:00 - 00 :00 Externa l apixaban 2021-0 2021- No Adenocarcin 5mg Take 1 Univers (Eliquis) 5 9-12 12-12 muriel of left tablet (5 ity of mg tablet 00:00: 00:00 lung mg) by [place] 00 :00 mouth MD every 12 Anderso (twelve) n hours. [facility] apixaban 2021- No Adenocarcin 5mg Take 1 Univers (Eliquis) 5 02-27 12-12 muriel of left tablet (5 ity of mg tablet 00:00: 00:00 lung mg) by [place] 00 :00 mouth MD every 12 Anderso (twelve) n hours. [facility] Center apixaban 2021- No Adenocarcin 5mg Take 1 Univers (Eliquis) 5 02-27 12-12 muriel of left tablet (5 ity of mg tablet 00:00: 00:00 lung mg) by [place] 00 :00 mouth MD every 12 Anderso (twelve) n hours. [facility] apixaban 2021- No Adenocarcin 5mg Take 1 Univers (Eliquis) 5 02-27 12-12 muriel of left tablet (5 ity of mg tablet 00:00: 00:00 lung mg) by [place] 00 :00 mouth MD every 12 Anderso (twelve) n hours. [facility] fluticasone 2021- No Simple 1{puff} Inhale 1 Univers propion-funmi 02-27-22 chronic puff by i ty of meteroL 00:00: 00:00 bronchitis mouth [place] 232-14 00 :00 twice MD mcg/actuati daily. Darryl o on [facility] fluticasone 2021- No Simple 1{puff} Inhale 1 Univers propion-funmi -05 28-22 chronic puff by i ty of meteroL 00:00: 00:00 bronchitis mouth [place] 232-14 00 :00 twice MD mcg/actuati daily. [facility]- No Simple 1{puff} Inhale 1 Univers propion-funmi -05 28-22 chronic puff by i ty of meteroL 00:00: 00:00 bronchitis mouth [place] 232-14 00 :00 twice MD mcg/actuati daily. [facility] fl[facility] 2021- No Simple 1{puff} Inhale 1 Univers propion-funmi -05 28-22 chronic puff by i ty of meteroL 00:00: 00:00 bronchitis mouth [place] 232-14 00 :00 twice MD mcg/actuati daily. Darryl o on aepb [facility] folic acid Yes Adenocarcin 400ug Take 1 Univers (FOLVITE) 02-24 muriel, NOS of tablet i ty of 400 mcg 00:00: upper lobe, (400 mcg) [place] tablet 00 lung <Left> by mouth MD daily. [facility] folic acid Yes Adenocarcin 400ug Take 1 Univers (FOLVITE) 02-24 muriel, NOS of tablet i ty of 400 mcg 00:00: upper lobe, (400 mcg) [place] tablet 00 lung <Left> by mouth MD daily. [facility] folic acid Yes Adenocarcin 400ug Take 1 Univers (FOLVITE) 02-24 muriel, NOS of tablet i ty of 400 mcg 00:00: upper lobe, (400 mcg) [place] tablet 00 lung <Left> by mouth MD daily. [facility] dexamethaso Yes Adenocarcin 4mg Take 1 Univers ne 02-24 muriel, NOS of tablet (4 ity of (DECADRON) 00:00: upper lobe, mg) by [place] 4 mg tablet 00 lung <Left> mouth twice Anderso daily. n Take on Cancer days 2, 3, Center and 4 of each chemothera py cycle ondansetron Yes Adenocarcin 8mg Take 1 Univers (ZOFRAN) 8 02-24 muriel, NOS of tablet (8 ity of mg tablet 00:00: upper lobe, mg) by [place] 00 lung <Left> mouth MD every 8 Anderso (eight) n hours as Cancer needed for Center nausea or vomiting. folic acid Yes Adenocarcin 400ug Take 1 Univers (FOLVITE) 02-24 muriel, NOS of tablet i ty of 400 mcg 00:00: upper lobe, (400 mcg) [place] tablet 00 lung <Left> by mouth MD daily. [facility] dexamethaso Yes Adenocarcin 4mg Take 1 Univers ne 02-24 muriel, NOS of tablet (4 ity of (DECADRON) 00:00: upper lobe, mg) by [place] 4 mg tablet 00 lung <Left> mouth twice Anderso daily. n Take on Cancer days 2, 3, Center and 4 of each chemothera py cycle ondansetron 2021-0 Yes Adenocarcin 8mg Take 1 Univers (ZOFRAN) 8 02-24 muriel, NOS of tablet (8 ity of mg tablet 00:00: upper lobe, mg) by [place] 00 lung <Left> mouth MD every 8 Anderso (eight) n hours as Cancer needed for Center nausea or vomiting. folic acid 0 Yes Adenocarcin 400ug Take 1 Univers (FOLVITE) 02-24 muriel, NOS of tablet i ty of 400 mcg 00:00: upper lobe, (400 mcg) [place] tablet 00 lung <Left> by mouth MD daily. [facility] folic acid 0 Yes Adenocarcin 400ug Take 1 Univers (FOLVITE) 02-24 muriel, NOS of tablet i ty of 400 mcg 00:00: upper lobe, (400 mcg) [place] tablet 00 lung <Left> by mouth MD daily. [facility] Folic Acid 2021-0 Yes 400ug Take 400 [place] 400 MCG 9-09 mcg by Seybold oral Tablet 00:00: mouth - 00 daily Externa l Folic Acid 2021-0 Yes 400ug Take 400 [place] 400 MCG 9-09 mcg by [place]bold oral Tablet 00:00: mouth - 00 daily Externa l Folic Acid 2021-0 Yes 400ug Take 400 [place] 400 MCG 9-09 mcg by Seybold oral Tablet 00:00: mouth - 00 daily Externa l Folic Acid 2021-0 Yes 400ug Take 400 [place] 400 MCG 9-09 mcg by Seybold oral Tablet 00:00: mouth - 00 daily Externa l Folic Acid 2021-0 Yes 400ug Take 1 Cony ey 400 MCG 9-09 tablet Seybold oral Tablet 00:00: (400 mcg - 00 total) by Externa mouth l daily Folic Acid 2021-0 Yes 400ug Take 1 Cony ey 400 MCG 9-09 tablet Seybold oral Tablet 00:00: (400 mcg - 00 total) by Externa mouth l daily dexamethaso 2021-0 2021- No Adenocarcin 4mg Take 1 Univers ne 02-24 11-22 muriel, NOS of tablet (4 it y of (DECADRON) 00:00: 00:00 upper lobe, mg) by [place] 4 mg tablet 00 :00 lung <Left> mouth MD twice Anderso daily. n Take on Cancer days 2, 3, Center and 4 of each chemothera py cycle ondansetron 2021-2021- No Adenocarcin 8mg Take 1 Univers (ZOFRAN) 8 02-24 muriel, NOS of tablet (8 ity of mg tablet 00:00: 00:00 upper lobe, mg) by [place] 00 :00 lung <Left> mouth MD every 8 Anderso (eight) n hours as Cancer needed for Center nausea or vomiting. dexamethaso 2021- No Adenocarcin 4mg Take 1 Univers ne 02-24 muriel, NOS of tablet (4 it y of (DECADRON) 00:00: 00:00 upper lobe, mg) by [place] 4 mg tablet 00 :00 lung <Left> mouth MD twice Anderso daily. n Take on Cancer days 2, 3, Center and 4 of each chemothera py cycle ondansetron 2021- No Adenocarcin 8mg Take 1 Univers (ZOFRAN) 8 02-24 muriel, NOS of tablet (8 ity of mg tablet 00:00: 00:00 upper lobe, mg) by [place] 00 :00 lung <Left> mouth MD every 8 Anderso (eight) n hours as Cancer needed for Center nausea or vomiting. dexamethaso 2021- No Adenocarcin 4mg Take 1 Univers ne 02-24 muriel, NOS of tablet (4 it y of (DECADRON) 00:00: 00:00 upper lobe, mg) by [place] 4 mg tablet 00 :00 lung <Left> mouth MD twice Anderso daily. n Take on Cancer days 2, 3, Center and 4 of each chemothera py cycle ondansetron 2021- No Adenocarcin 8mg Take 1 Univers (ZOFRAN) 8 02-24 muriel, NOS of tablet (8 ity of mg tablet 00:00: 00:00 upper lobe, mg) by [place] 00 :00 lung <Left> mouth MD every 8 Anderso (eight) n hours as Cancer needed for Center nausea or vomiting. dexamethaso 2021-0 202- No Adenocarcin 4mg Take 1 Univers ne 02-24 muriel, NOS of tablet (4 it y of (DECADRON) 00:00: 00:00 upper lobe, mg) by [place] 4 mg tablet 00 :00 lung <Left> mouth MD twice Anderso daily. n Take on Cancer days 2, 3, Center and 4 of each chemothera py cycle ondansetron 2021- No Adenocarcin 8mg Take 1 Univers (ZOFRAN) 8 02-24 muriel, NOS of tablet (8 ity of mg tablet 00:00: 00:00 upper lobe, mg) by [place] 00 :00 lung <Left> mouth MD every 8 Anderso (eight) n hours as Cancer needed for Center nausea or vomiting. apixaban 2021- No Adenocarcin 5mg Take 1 Univers (Eliquis) 5 02-23-12 muriel of left tablet (5 ity of mg tablet 00:00: 00:00 lung mg) by [place] 00 :00 mouth MD every 12 Anderso (twelve) n hours. [facility] apixaban 2021- No Adenocarcin 5mg Take 1 Univers (Eliquis) 5 02-2312 muriel of left tablet (5 ity of mg tablet 00:00: 00:00 lung mg) by [place] 00 :00 mouth MD every 12 Anderso (twelve) n hours. [facility] apixaban 2021- No Adenocarcin 5mg Take 1 Univers (Eliquis) 5 02-2312 muriel of left tablet (5 ity of mg tablet 00:00: 00:00 lung mg) by [place] 00 :00 mouth MD every 12 Anderso (twelve) n hours. [facility] apixaban 2021- No Adenocarcin 5mg Take 1 Univers (Eliquis) 5 02-2312 muriel of left tablet (5 ity of mg tablet 00:00: 00:00 lung mg) by [place] 00 :00 mouth MD every 12 Anderso [...] Apply 1 Univers 21 mg/24 hr 8-23 11-22 dependence patch to ity of transdermal 00:00: 00:00 skin and [place] patch 00 :00 change MD patch Anderso daily as n directed Cancer for Center tobacco cessation (alternate sites). Nicorette 2 2021- No Nicotine 2mg Dissolve 1 Univers mg mini 8-23 11-22 dependence lozenge (2 ity of lozenge 00:00: 00:00 mg) in the [place] as 00 :00 mouth MD every 2 Anderso (two) n hours as Cancer needed for Center smoking cessation. Avoid acidic beverages during, 5 min before/aft er use Nicoderm CQ 2021- No Nicotine Apply 1 Univers 21 mg/24 hr 8-23 11-22 dependence patch to ity of transdermal 00:00: 00:00 skin and [place] patch 00 :00 change MD patch Anderso daily as n directed Cancer for Center tobacco cessation (alternate sites). Nicorette 2 2021- No Nicotine 2mg Dissolve 1 Univers mg mini 8-23 11-22 dependence lozenge (2 ity of lozenge [...] during, 5 min before/aft er use FLUTICASONE 0 Yes [id number] SPRAY 1 More PROPIONATE, 8-17 SPRAY INTO Se ybold NASAL, 50 00:00: EACH - MCG/ACT 00 NOSTRIL Externa nasal EVERY DAY l Suspension FLUTICASONE 2021-0 Yes [id number] SPRAY 1 More PROPIONATE, 8-17 SPRAY INTO Se ybold NASAL, 50 00:00: EACH - MCG/ACT 00 NOSTRIL Externa nasal EVERY DAY l Suspension FLUTICASONE 2021-0 Yes [id number] SPRAY 1 More PROPIONATE, 8-17 SPRAY INTO Se ybold NASAL, 50 00:00: EACH - MCG/ACT 00 NOSTRIL Externa nasal EVERY DAY l Suspension FLUTICASONE 0 2022- No [id number] SPRAY 1 More PROPIONATE, 8-17 11-16 SPRAY INTO S eybold NASAL, 50 00:00: [...] 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 apixaban 2021- No Adenocarcin Take 2 Univers (Eliquis 7-25 12-12 muriel of left tablets by ity of 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 apixaban 2021- No Adenocarcin Take 2 Univers (Eliquis 7-25 12-12 muriel of left tablets by ity of 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 apixaban 2021- No Adenocarcin Take 2 Univers (Eliquis 7-25 12-12 muriel of left tablets by ity of DVT-PE 00:00: 00:00 lung mouth [place] Treat 30D 00 :00 twice MD Guerra) 5 mg daily for And erso (74 tabs) 7 days, n tablet then take Cancer 1 tablet Center by mouth twice daily thereafter . apixaban 2021- No Adenocarcin 5mg Take 1 Univers (Eliquis) 5 01-09 09-08 muriel of left tablet (5 ity of mg tablet 00:00: 00:00 lung mg) by [place] 00 :00 mouth every 12 Anderso (twelve) n hours. [facility] apixaban 2021- No Adenocarcin 5mg Take 1 Univers (Eliquis) 5 01-09-08 muriel of left tablet (5 ity of mg tablet 00:00: 00:00 lung mg) by [place] 00 :00 mouth every 12 Anderso (twelve) n hours. [facility] apixaban 2021- No Adenocarcin 5mg Take 1 Univers (Eliquis) 5 01-09-08 muriel of left tablet (5 ity of mg tablet 00:00: 00:00 lung mg) by [place] 00 :00 mouth every 12 Anderso (twelve) n hours. [facility] apixaban 2021- No Adenocarcin 5mg Take 1 Univers (Eliquis) 5 01-09-08 muriel of left tablet (5 ity of mg tablet 00:00: 00:00 lung mg) by [place] 00 :00 mouth every 12 Anderso (twelve) n hours. [facility] aspirin 325 2021- No 325mg Take 325 Univers mg tablet 12-27 06-29 mg by ity of 20:19: 00:00 mouth. [place] 54 :00 MD Jose Angel wiseman [facility] aspirin 325 2021- No 325mg Take 325 Univers mg tablet 12-27 06-29 mg by ity of 20:19: 00:00 mouth. [place] 54 :00 MD Jose Angel wiseman [facility] aspirin 325 2021- No 325mg Take 325 Univers mg tablet 12-27 06-29 mg by ity of 20:19: 00:00 mouth. [place] 54 :00 MD Jose Angel wiseman [facility] Nicoderm CQ 2021- No Nicotine Apply 1 Univers 21 mg/24 hr 12-14-23 dependence patch to ity of transdermal 00:00: [...] 90 00 MD mcg/puff Anderso inhaler n [facility] albuterol Yes 2{puff} Inhale 2 U nivers (VENTOLIN 6-20 puffs by ity of HFA,PROAIR 00:00: mouth as [place] as HFA) 90 00 needed. mcg/puff Anderso inhaler n [facility] Albuterol Yes [id number] 2{puff} Q.25D Inhale 2 More HFA (PROAIR 6-20 puffs into Se ybold HFA) 108 00:00: the lungs - (90 Base) 00 every 6 Externa MCG/ACT IN hours as l AERS needed for wheezing albuterol 2022- No 2{puff} Inhale 2 Univers (VENTOLIN 6-20 03-06 puffs by ity o f HFA,PROAIR 00:00: 00:00 mouth as [place] HFA) 90 00 :00 needed. mcg/puff Anderso inhaler n [facility] albuterol 2022- No 2{puff} Inhale 2 Univers (VENTOLIN 6-20 03-06 puffs by ity o f HFA,PROAIR 00:00: 00:00 mouth as [place] HFA) 90 00 :00 needed. mcg/puff Anderso inhaler n [facility] albuterol 2022- No 2{puff} Inhale 2 Univers (VENTOLIN 6-20 03-06 puffs by ity o f HFA,PROAIR 00:00: 00:00 mouth as [place] HFA) 90 00 :00 needed. MD mcg/puff Anderso inhaler n [facility] albuterol 2022- No 2{puff} Inhale 2 Univers (VENTOLIN 6-20 03-06 puffs by ity o f HFA,PROAIR 00:00: 00:00 mouth as [place] HFA) 90 00 :00 needed. MD mcg/puff Anderso inhaler [facility] fluticasone Yes 1{spray Inhale 1 Univers propionate 6-13 } spray into ity of (FLONASE) 00:00: each [place] 50 00 nostril as MD mcg/spray needed. Anderso nasal spray [facility] fluticasone Yes 1{spray Inhale 1 Univers propionate 6-13 } spray into ity of (FLONASE) 00:00: each [place] 50 00 nostril as MD mcg/spray needed. Anderso nasal spray [facility] fluticasone 2022- No 50ug Inhale 1 U nivers propionate 6-13 03-06 spray (50 ity of (FLONASE) 00:00: 00:00 mcg) into [place] 50 00 :00 each MD mcg/spray nostril as Kishore rso nasal spray needed. [facility] fluticasone 2022- No 50ug Inhale 1 U nivers propionate 6-13 03-06 spray (50 ity of (FLONASE) 00:00: 00:00 mcg) into [place] 50 00 :00 each MD mcg/spray nostril as Kishore rso nasal spray needed. [facility] fluticasone 2022- No 50ug Inhale 1 U nivers propionate 6-13 03-06 spray (50 ity of (FLONASE) 00:00: 00:00 mcg) into [place] 50 00 :00 each MD mcg/spray nostril as Kishore rso nasal spray needed. [facility] fluticasone 2022- No 50ug Inhale 1 U nivers propionate 6-13 03-06 spray (50 ity of (FLONASE) 00:00: 00:00 mcg) into [place] 50 00 :00 each MD mcg/spray nostril as Kishore rso nasal spray needed. [facility] Alendronate Yes [id number] 70mg Take 1 More Sodium 70 6-01 tablet (70 Seyb old MG oral 00:00: mg total) - Tablet 00 by mouth Externa every 7 l days Alendronate Yes [id number] 70mg Take 1 More Sodium 70 6-01 tablet (70 Seyb old MG oral 00:00: mg total) - Tablet 00 by mouth Externa every 7 l days Alendronate Yes [id number] 70mg Take 1 More Sodium 70 6-01 tablet (70 Seyb old MG oral 00:00: mg total) Tablet 00 by mouth every 7 days Alendronate Yes [id number] 70mg Take 1 More Sodium 70 6-01 tablet (70 Seyb old MG oral 00:00: mg total) - Tablet 00 by mouth Externa every 7 l days Alendronate 2023- No [id number] 70mg Take 1 More Sodium 70 6-01 06- tablet (70 Sey bold MG oral 00:00: 00:00 mg total) - Tablet 00 :00 by mouth Externa every 7 l days alendronate 2021- No 1{tbl} Take 1 U nivers (FOSAMAX) 11-16 tablet by ity of 70 mg 00:00: 00:00 mouth once [place] tablet 00 :00 a week. MD Walter [facility] alendronate 2021- No 1{tbl} Take 1 U nivers (FOSAMAX) 11-16 tablet by ity of 70 mg 00:00: 00:00 mouth once [place] tablet 00 :00 a week. MD Jose Angel wiseman [facility] alendronate 2021- No 1{tbl} Take 1 U nivers (FOSAMAX) 11-16 tablet by ity of 70 mg 00:00: 00:00 mouth once [place] tablet 00 :00 a week. MD [facility] Fluticasone Yes 1{puff} Inhale 1 More -Salmeterol 5-16 puff into Sey bold 232-14 00:00: the lungs - MCG/ACT 00 2 times Externa inhalation daily l AEROSOL POWDER, BREATH ACTIVATED Fluticasone 2021-0 Yes 1{puff} Inhale 1 More -Salmeterol 5-16 puff into [facility] bold 232-14 00:00: the lungs - MCG/ACT 00 2 times Externa inhalation daily l AEROSOL POWDER, BREATH ACTIVATED Fluticasone 2022-0 Yes 1{puff} Inhale 1 More -Salmeterol 5-16 puff into [facility] bold 232-14 00:00: the lungs - MCG/ACT 00 2 times Externa inhalation daily l AEROSOL POWDER, BREATH ACTIVATED Fluticasone 2022-0 Yes 1{puff} Inhale 1 More -Salmeterol 5-16 puff into [facility] bold 232-14 00:00: the lungs - MCG/ACT 00 2 times Externa inhalation daily l AEROSOL POWDER, BREATH ACTIVATED Fluticasone 2022-0 Yes 1{puff} Inhale 1 More -Salmeterol 5-16 puff into [facility] 232-14 00:00: the lungs MCG/ACT 00 2 times inhalation daily AEROSOL POWDER, BREATH ACTIVATED Fluticasone 2022-0 Yes 1{puff} Inhale 1 More -Salmeterol 5-16 puff into [facility] 232-14 00:00: the lungs MCG/ACT 00 2 times inhalation daily AEROSOL POWDER, BREATH ACTIVATED Fluticasone 2022-0 Yes 1{puff} Inhale 1 More -Salmeterol 5-16 puff into [facility] 232-14 00:00: the lungs - MCG/ACT 00 2 times Externa inhalation daily l AEROSOL POWDER, BREATH ACTIVATED Fluticasone 2022-0 Yes 1{puff} Inhale 1 More -Salmeterol 5-16 puff into [facility] 232-14 00:00: the lungs - MCG/ACT 00 2 times Externa inhalation daily l AEROSOL POWDER, BREATH ACTIVATED Fluticasone 2022-0 2023- No 1{puff} Inhale 1 More -Salmeterol 5-16 06-01 puff into [facility] 232-14 00:00: 00:00 the lungs - MCG/ACT 00 :00 2 times Externa inhalation daily l AEROSOL POWDER, BREATH ACTIVATED Fluticasone 2022-0 2023- No 1{puff} Inhale 1 More -Salmeterol 5-16 06-01 puff into Se y[place] 232-14 00:00: 00:00 the lungs - MCG/ACT 00 :00 2 times Externa inhalation daily l AEROSOL POWDER, BREATH ACTIVATED fluticasone 2021- No 1{puff} Inhale 1 Univers propion-funmi 5-16 09-12 puff by ity of meteroL 00:00: 00:00 [place] [id number] 00 :00 twice MD mcg/actuati daily. Darryl o on [facility] fluticasone 2021- No 1{puff} Inhale 1 Univers propion-funmi 5-16 09-12 puff by ity of meteroL 00:00: 00:[address] 00 :00 twice MD mcg/actuati daily. Darryl o on [facility] fluticasone 2021- No 1{puff} Inhale 1 Univers propion-funmi 5-16 09-12 puff by ity of meteroL 00:00: 00:00 [place] [id number] 00 :00 twice MD mcg/actuati daily. Darryl o on [facility] fluticasone 2021- No 1{puff} Inhale 1 Univers propion-funmi 5-16 09-12 puff by ity of meteroL 00:00: 00:00 [place] [id number] 00 :00 twice MD mcg/actuati daily. Darryl o on [facility] FLUTICASONE Yes [id number] 50ug Use 1 More PROPIONATE, 5-13 spray [...] AEROSOL needed POWDER, BREATH ACTIVATED Fluticasone Yes [id number] Inhale 1 More -Umeclidin- 3-30 inhalation Se ybold [place] 00:00: into the (Trelegy 00 lungs Ellipta) daily 100-62.5-25 MCG/INH inhalation AEROSOL POWDER, BREATH ACTIVATED Fluticasone 0 2021- No [id number] Inhale 1 More -Umeclidin- 3-30 04-28 inhalation S eybold Vilant 00:00: 00:00 into the (Trelegy 00 :00 lungs Ellipta) daily 100-62.5-25 MCG/INH inhalation AEROSOL POWDER, BREATH ACTIVATED ProAir HFA Yes 1{puff} Inhale 1 Univers 90 3-28 puff by ity of mcg/actuati 00:00: [place] 00 needed. [facility] HFA Yes More 108 (90 3-28 [...] 00 inhalation Aerosol Solution ProAir HFA 0 2021- No 1{puff} Inhale 1 Univers 90 3-28 10-03 puff by ity of mcg/actuati 00:00: 00:00 [place] inhaler 00 :00 needed. MD Jose Angel wiseman [facility] ProAir HFA 0 2021- No 1{puff} Inhale 1 Univers 90 3-28 10-03 puff by ity of mcg/actuati 00:00: 00:00 [place] inhaler 00 :00 needed. MD Jose Angel wiseman [facility] ProAir HFA 2021- No 1{puff} Inhale 1 Univers 90 3-28 10-03 puff by ity of mcg/actuati 00:00: 00:00 [place] inhaler 00 :00 needed. MD [facility] metoprolol Yes 50mg Take 1 Unive rs tartrate 2-15 tablet (50 ity o f (LOPRESSOR) 00:00[place] 50 mg 00 mouth MD tablet twice Anderso daily. [facility] metoprolol Yes 50mg Take 1 Unive rs tartrate 2-15 tablet (50 ity o f (LOPRESSOR) 00:00: mg[place] 50 mg 00 mouth MD tablet twice Anderso daily. [facility] metoprolol Yes 50mg Take 1 Unive rs tartrate 2-15 tablet (50 ity o f (LOPRESSOR) 00:00: mg[place] 50 mg 00 mouth MD tablet twice Anderso daily. [facility] metoprolol Yes 1{tbl} Take 1 Uni vers tartrate 2-15 tablet by ity of (LOPRESSOR) 00:00: mouth [place] 50 mg 00 daily. MD terrence [facility] metoprolol Yes 1{tbl} Take 1 Uni vers tartrate 2-15 tablet by ity of (LOPRESSOR) 00:00: mouth [place] 50 mg 00 twice MD tablet daily. Jose Angel [facility] metoprolol Yes 50mg Take 1 Unive rs tartrate 2-15 tablet (50 ity o f (LOPRESSOR) 00:00: mg[place] mg 00 mouth MD tablet twice Anderso daily. [facility] Metoprolol Yes 50mg Take 50 [...] 00 :00 daily. MD Jose Angel wiseman [facility] Symbicort 2020-06- No 1{puff} Inhale 1 Univers 160-4.5 07-27- puff by ity of mcg/actuati 00:00: 00:[place] :00 daily. MD Jose Angel wiseman [facility] Symbicort 2020-06- No 1{puff} Inhale 1 Univers 160-4.5 -12-14 puff by ity of mcg/actuati 00:00: 00:00 [place]er 00 :00 daily. MD Jose Angel [facility] Immunizations Ordered Immunization Filled Date Status Comments Sour ce Name Immunization Name Pneumococcal 2017-09-20 Completed University o f Polysaccharide 00:00:00 [place] MD Ramírez Angel [facility] Pneumococcal 2017-09-20 Completed University o f Polysaccharide 00:00:00 [place] MD Ramírez Angel [facility] Pneumococcal 2017-09-20 Completed University o f Polysaccharide 00:00:00 [place] MD Ramírez Angel [facility] Pneumococcal 2017-09-20 Completed University o f Polysaccharide 00:00:00 [place] Ramírez Jeanne [facility] Pneumococcal 2017-09-20 Completed More Seybo ld Vaccine, [...] Pneumococcal Unknown Completed University o f Polysaccharide [facility] Pneumococcal Unknown Completed University o f Polysaccharide [facility] Vital Signs Vital Name Observation Time Observation Value Comments Source Systolic blood 2023-02-26 19:54:00 130 mm[Hg] More Seybold - pressure External Diastolic blood 2023-02-26 19:54:00 72 mm[Hg] Shraddha horn Seybold - pressure External Heart rate 2023-02-26 19:54:00 64 /min More Macy trevorbostaci - External Body temperature 2023-02-26 19:54:00 36.17 Charlette Cony ey Seybold - External Respiratory rate 2023-02-26 19:54:00 14 /min Cony murray Seybold - External Body height 2023-02-26 19:54:00 157.5 cm More murraybostaci - External Body weight 2023-02-26 19:54:00 52.164 kg More murraybostaci - External BMI 2023-02-26 19:54:00 21.03 kg/m2 More Montilla eybold - External Systolic blood 2023-01-16 19:34:00 140 mm[Hg] More Murphyybold - pressure External Diastolic blood 2023-01-16 19:34:00 74 mm[Hg] Shraddha y Seybold - pressure External Heart rate 2023-01-16 19:34:00 64 /min More Montilla eybold - External Body temperature 2023-01-16 19:34:00 36.22 Charlette Cony murray Seybold - External Respiratory rate 2023-01-16 19:34:00 16 /min Cony murray Seybold - External Body weight 2023-01-16 19:34:00 52.617 kg More Montilla eybold - External BMI 2023-01-16 19:34:00 21.22 kg/m2 More murraybold - External Oxygen saturation in 2023-01-16 19:34:00 96 /min More Mendes - Arterial blood by External Pulse oximetry Systolic blood 2022-12-08 15:46:00 144 mm[Hg] [facility] Diastolic blood 2022-12-08 15:46:00 80 mm[Hg] Unive [facility] Heart rate 2022-12-08 15:46:00 55 /min [facility] Oxygen saturation in 2022-12-08 15:46:00 95 /min University of Arterial blood by [place] [facility] Pulse oximetry Branch Body temperature 2022-12-08 15:44:00 36.72 Charlette [facility] Respiratory rate 2022-12-08 15:44:00 16 /min [facility] Body height 2022-12-08 15:44:00 157.5 cm [facility] Body weight 2022-12-08 15:44:00 49.805 kg [facility] BMI 2022-12-08 15:44:00 20.08 kg/m2 [facility] Systolic blood 2022-11-16 16:33:00 145 mm[Hg] [...] saturation in 2022-11-16 16:33:00 98 /min More Seybold - Arterial blood by [...] Body height 2022-05-03 19:05:00 157.5 cm More Montilla eybold - External Body weight 2022-05-03 19:05:00 46.72 kg More Montilla eybold - External BMI 2022-05-03 19:05:00 18.84 kg/m2 More S eybold - External Oxygen saturation in 2022-05-03 19:05:00 99 /min More Gallowayold - Arterial blood by External Pulse oximetry [...] oximetry Body height 2023-02-02 15:38:00 156.5 cm [facility] MD Andrews [facility] Body weight 2023-02-02 15:38:00 52.2 kg [facility] MD Andrews [facility] BMI 2023-02-02 15:38:00 21.31 kg/m2 Universi [...] Oxygen saturation in 2022-09-12 14:53:00 98 /min [facility] Arterial blood by [place] Pulse oximetry [facility] Center Body height 2022-07-31 14:48:36 153 [...] 2022-02-27 16:23:41 47.8 kg [facility] [place] [facility] BMI 2022-02-27 16:23:41 20.96 kg/m2 Universi ty of [place] [facility] Oxygen saturation in 2022-02-27 16:23:41 97 /min University of Arterial blood by [place] josueon Pulse oximetry [facility] Body height 2022-02-07 18:21:00 151 cm [facility] [place] MD [facility] Procedures Procedure Date / Time Performing Clinician Source Performed MEDICAL RELEASE/CLEARANCE 2023-03-08 05:01:00 Doctor Unassigned, [facility] FORMS [facility] CHEST ABDOMEN PELVIS W 2023-02-02 17:42:00 Sofy Almendarez [facility] CONTRAST [facility] COMPLETE BLOOD COUNT W/ 2023-02-02 15:17:23 [facility] COMPREHENSIVE METABOLIC 2023-02-02 15:17:23 [facility] FREE THYROXINE 2023-02-02 15:17:23 Sofy Almendarez [facility] MAGNESIUM LEVEL 2023-02-02 15:17:23 [facility] PHOSPHORUS LEVEL 2023-02-02 15:17:23 [facility] THYROID STIMULATING 2023-02-02 15:17:23 Sofy Almendarez [facility] HORMONE [facility] .CBC 2023-02-02 15:17:23 [facility] er Surveyor DIFFERENTIAL 2023-02-02 15:17:23 Sofy Almendarez [facility] y [facility] GLUCOSE LEVEL 2023-02-02 15:17:23 Sofy Almendarez [facility] BLOOD UREA NITROGEN 2023-02-02 15:17:23 Sofy Almendarez [facility] ELECTROLYTE PANEL 2023-02-02 15:17:23 [facility] SERUM CREATININE 2023-02-02 15:17:23 Sofy Almendarez [facility] .GLOMERULAR FILTRATION 2023-02-02 15:17:23 Sofy Almendarez iversity [facility] RATE [facility] CALCIUM LEVEL 2023-02-02 15:17:23 [facility] ALBUMIN LEVEL 2023-02-02 15:17:23 Sofy Almendarez [facility] ALKALINE PHOSPHATASE 2023-02-02 15:17:23 Sofy Almendarez [facility] ALANINE AMINOTRANSFERASE 2023-02-02 15:17:23 Sofy Almendarez [facility] ASPARTATE AMINOTRANSFERASE 2023-02-02 15:17:23 Sofy Almendarez [facility] TOTAL PROTEIN 2023-02-02 15:17:23 Sofy Almendarez [facility] FRACTIONATED BILIRUBIN 2023-02-02 15:17:23 Sofy Almendarez [facility] [place] [facility] OSI CT ABDOMEN AND PELVIS 2023-01-19 15:25:00 Sofy Almendarez [facility] MRI BRAIN W WO CONTRAST 2023-01-16 14:16:00 Mona Reid [facility] COMPREHENSIVE METABOLIC 2023-01-09 14:57:33 Tana Kay [facility] PANEL [facility] COMPLETE BLOOD COUNT W/ 2023-01-09 14:57:33 Tana Kay [facility] DIFFERENTIAL [facility] GLUCOSE LEVEL 2023-01-09 14:57:33 Tana Kay [facility] BLOOD UREA NITROGEN 2023-01-09 14:57:[address] [facility] ELECTROLYTE PANEL 2023-01-09 14:57:33 Tana Kay [facility] SERUM CREATININE 2023-01-09 14:57:33 Tana Kay [facility] .GLOMERULAR FILTRATION 2023-01-09 14:57:33 Tana Kay [facility] RATE [facility] CALCIUM LEVEL 2023-01-09 14:57:33 Tana Kay [facility] ALBUMIN LEVEL 2023-01-09 14:57:33 Tana Kay [facility] ALKALINE PHOSPHATASE 2023-01-09 14:57:33 Tana Kay [facility] ALANINE AMINOTRANSFERASE 2023-01-09 14:57:33 Tana Kay [facility] [place] [facility] ASPARTATE AMINOTRANSFERASE 2023-01-09 14:57:33 Tana Kay [facility] TOTAL PROTEIN 2023-01-09 14:57:33 Tana Kay [facility] FRACTIONATED BILIRUBIN 2023-01-09 14:57:33 Tana Kay Univ ersity [facility] .CBC 2023-01-09 14:57:33 Tana Kay [facility] DIFFERENTIAL 2023-01-09 14:57:33 Tana Kay [facility] CT CHEST W CONTRAST 2022-11-02 15:11:08 Josephine Jacoboi ty of [facility] COMPLETE BLOOD COUNT W/ 2022-11-02 14:04:39 [facility] [place] DIFFER[facility] COMPREHENSIVE METABOLIC 2022-11-02 14:04:39 Sofy Almendarez [facility] [place] PANEL [facility] FREE THYROXINE 2022-11-02 14:04:39 Sofy Almendarez Universit y [facility] THYROID STIMULATING 2022-11-02 14:04:39 Sofy Almendareze rsity of [place] HORMONE [facility] .CBC 2022-11-02 14:04:39 Sofy Almendarez Universit y of [facility] DIFFERENTIAL 2022-11-02 14:04:39 Sofy Almendarez Universit y of [facility] GLUCOSE LEVEL 2022-11-02 14:04:39 Sofy Almendarez Universit y [facility] BLOOD UREA NITROGEN 2022-11-02 14:04:39 Sofy Almendareze rsity of [facility] ELECTROLYTE PANEL 2022-11-02 14:04:39 Sofy Almendarez ity of [facility] SERUM CREATININE 2022-11-02 14:04:39 Sofy Almendarezi ty of [facility] .GLOMERULAR FILTRATION 2022-11-02 14:04:39 Sofy Almendarez Un iversanais of [place] RATE [facility] CALCIUM LEVEL 2022-11-02 14:04:39 Sofy Almendarez Universit y of [facility] ALBUMIN LEVEL 2022-11-02 14:04:39 Sofy Almendarez [facility] ALKALINE PHOSPHATASE 2022-11-02 14:04:39 Sofy Almendarez [facility] ALANINE AMINOTRANSFERASE 2022-11-02 14:04:39 Sofy Almendarez [facility] ASPARTATE AMINOTRANSFERASE 2022-11-02 14:04:39 Sofy Almendarez [facility] TOTAL PROTEIN 2022-11-02 14:04:39 Sofy Almendarez [facility] FRACTIONATED BILIRUBIN 2022-11-02 14:04:39 Sofy Almendarez [facility] HEPATIC FUNCTION PANEL 2022-09-12 14:10:00 Sofy Almendarez [facility] [place] [facility] RESEARCH PROTOCOL [id number] 2022-09-12 14:10:00 Sofy Almendarez [facility] ALBUMIN LEVEL 2022-09-12 14:10:00 Sofy Almendarez [facility] ALKALINE PHOSPHATASE 2022-09-12 14:10:00 Sofy Almendarez [facility] ALANINE AMINOTRANSFERASE 2022-09-12 14:10:00 Sofy Almendarez [facility] ASPARTATE AMINOTRANSFERASE 2022-09-12 14:10:00 Sofy Almendarez [facility] TOTAL PROTEIN 2022-09-12 14:10:00 Sofy Almendarez [facility] FRACTIONATED BILIRUBIN 2022-09-12 14:10:00 Sofy Almendarez [facility] HEPATIC FUNCTION PANEL 2022-08-21 16:43:45 Sofy Almendarez [facility] GAMMA GLUTAMYL TRANSFERASE 2022-08-21 16:43:45 Sofy Almendarez [facility] COMPLETE BLOOD COUNT W/ 2022-08-21 16:43:45 [facility] L[facility] 2022-08-21 16:43:45 Sofy Almendarez [facility] ALKALINE PHOSPHATASE 2022-08-21 16:43:45 Sofy Almendarez [facility] ALANINE AMINOTRANSFERASE 2022-08-21 16:43:45 Sofy Almendarez [facility] ASPARTATE AMINOTRANSFERASE 2022-08-21 16:43:45 Sofy Almendarez [facility] TOTAL PROTEIN 2022-08-21 16:43:45 Sofy Almendarez [facility] FRACTIONATED BILIRUBIN 2022-08-21 16:43:45 Sofy Almendarez [facility] .CBC 2022-08-21 16:43:45 Sofy Almendarez [facility] DIFFERENTIAL 2022-08-21 16:43:45 Sofy Almendarez [facility] HEPATIC FUNCTION PANEL 2022-08-14 15:21:53 Sofy Almendarez [facility] GAMMA GLUTAMYL TRANSFERASE 2022-08-14 15:21:53 Sofy Almendarez [facility] ALBUMIN LEVEL 2022-08-14 15:21:53 Sofy Almendarez [facility] ALKALINE PHOSPHATASE 2022-08-14 15:21:53 Sofy Almendarez [facility] ALANINE AMINOTRANSFERASE 2022-08-14 15:21:53 Sofy Almendarez [facility] ASPARTATE AMINOTRANSFERASE 2022-08-14 15:21:53 Sofy Almendarez [facility] TOTAL PROTEIN 2022-08-14 15:21:53 Sofy Almendarez [facility] FRACTIONATED BILIRUBIN 2022-08-14 15:21:53 Sofy Almendarez Un iversity [facility] HSV 1 & 2 QUANT PCR, 2022-08-07 15:30:00 Sofy Almendarez [facility] ersity [facility] PLASMA [facility] CMV ANTIBODY IGG + IGM 2022-08-07 15:30:00 Sofy Almendarez Un iversity [facility] EBV QUANT PCR, PLASMA 2022-08-07 15:30:00 Sofy Almendarez [facility] EBV ANTIBODY PANEL - 2022-08-07 15:30:00 Sofy Al[facility]arez [facility] REVIEW [facility] CMV ANTIBODY IGG + IGM - 2022-08-07 15:30:00 Sofy Almendarez [facility] PATHOLOGIST REVIEW [facility] BASIC METABOLIC PANEL, 2022-08-07 15:30:00 Sofy Almendarez [facility] CALCIUM TOTAL [facility] HEPATIC FUNCTION PANEL 2022-08-07 15:30:00 Sofy Almendarez iversity [facility] GAMMA GLUTAMYL TRANSFERASE 2022-08-07 15:30:00 Sofy Almendarez [facility] COMPLETE BLOOD COUNT W/ 2022-08-07 15:30:00 Sofy Almendarez [facility] DIFFERENTIAL [facility] PROTHROMBIN TIME 2022-08-07 15:30:00 [facility] HEPATITIS A IGM ANTIBODY 2022-08-07 15:30:00 Sofy Almendarez [facility] SERUM [facility] HEPATITIS A ANTIBODY IGG 2022-08-07 15:30:00 Sofy Almendarez [facility] HEPATITIS B SURFACE 2022-08-07 15:30:00 Sof[facility] ANTIGEN [facility] HEPATITIS B SURFACE 2022-08-07 15:30:00 Sofy [facility]arez [facility] ANTIBODY [facility] HEPATITIS B CORE ANTIBODY 2022-08-07 15:30:00 Sofy Almendarez [facility] IGM ACUTE TITER [facility] HEPATITIS B CORE ANTIBODY 2022-08-07 15:30:00 Sofy Almendarez [facility] HBV DNA QUANT 2022-08-07 15:30:00 Sofy Almendarez [facility] HEPATITIS C VIRUS ANTIBODY 2022-08-07 15:30:00 Sofy Almendarez [facility] HEPATITIS C VIRUS RNA 2022-08-07 15:30:00 Sofy Almendarez [facility] DETECT/QUANT, SERUM [facility] HEPATITIS E IGM AB 2022-08-07 15:30:00 Sofy Almendarez [facility] HEPATITIS E IGG AB 2022-08-07 15:30:00 Sofy Almendarez [facility] HEPATITIS E VIRUS BY 2022-08-07 15:30:00 Sofy Almendarez [facility] QUANTITATIVE PCR [facility] CMV QUANT PCR, PLASMA 2022-08-07 15:30:00 Sofy Almendarez [facility] EBV ANTIBODY PANEL 2022-08-07 15:30:00 Sofy Almendarez [facility] HIV 1/2 ANTIGEN/ANTIBODY, 2022-08-07 15:30:00 Sofy Almendarez [facility] FOURTH GEN W/RFL [facility] CERULOPLASMIN 2022-08-07 15:30:00 Sofy Almendarez [facility] ALPHA 1 ANTRITRYPSIN SERUM 2022-08-07 15:30:00 Sofy Almendarez [facility] ANTINUCLEAR ANTIBODY HEP-2 2022-08-07 15:30:00 Sofy Almendarez [facility] SUBSTRATE IGG [facility] MITOCHONDRIAL AB M2 SERUM 2022-08-07 15:30:00 Sofy Almendarez [facility] SMOOTH MUSCLE ANTIBODY 2022-08-07 15:30:00 [facility] LIVER/KIDNEY MICROSOME 1 2022-08-07 15:30:00 Sofy Almendarez [facility] AB [facility] IMMUNOGLOBULIN G 2022-08-07 15:30:00 Sofy Almendarez [facility]i ty [facility] IMMUNOGLOBULIN M 2022-08-07 15:30:00 Sofy Almendarez Universi ty [facility] IMMUNOGLOBULIN A 2022-08-07 15:30:00 Sofy Almendarez Universi ty [facility] TISSUE TRANSGLUTAMINASE 2022-08-07 15:30:00 Sofy Almendarez U niversanais [facility] ANTIBODY [facility] IRON LEVEL 2022-08-07 15:30:00 Sofy Almendarez Universit y [facility] TRANSFERRIN 2022-08-07 15:30:00 Sofy Almendarez Universit y [facility] FERRITIN 2022-08-07 15:30:00 [facility] THYROID STIMULATING 2022-08-07 15:30:00 Sofy [facility] HORMONE [facility] GLUCOSE LEVEL 2022-08-07 15:30:00 Sofy Almendarez Universit y [facility] BLOOD UREA NITROGEN 2022-08-07 15:30:00 Sofy Al[facility]endareze [facility] ELECTROLYTE PANEL 2022-08-07 15:30:00 Sofy Almendarez ity [facility] SERUM CREATININE 2022-08-07 15:30:00 Sofy Almendarezi ty [facility] .GLOMERULAR FILTRATION 2022-08-07 15:30:00 Sofy Almendarez Un iversanais [facility] RATE [facility] CALCIUM LEVEL 2022-08-07 15:30:00 Sofy Almendarez Universit y [facility] ALBUMIN LEVEL 2022-08-07 15:30:00 Sofy Almendarez Universit y [facility] ALKALINE PHOSPHATASE 2022-08-07 15:30:00 Sofy Almendarez Univ ersity [facility] ALANINE AMINOTRANSFERASE 2022-08-07 15:30:00 Sofy Almendarze [facility] ASPARTATE AMINOTRANSFERASE 2022-08-07 15:30:00 Sofy Almendarez [facility] TOTAL PROTEIN 2022-08-07 15:30:00 Sofy Almendarez [facility] FRACTIONATED BILIRUBIN 2022-08-07 15:30:00 Sofy Almendarez iversanais [facility] .CBC 2022-08-07 15:30:00 Sofy Almendarez [facility] DIFFERENTIAL 2022-08-07 15:30:00 Sofy Almendarez [facility] EBV QUANT PCR, PLASMA 2022-08-07 15:30:00 Sofy Almendarez versity [facility] HBV DNA QUANT 2022-08-07 15:30:00 Sofy Almendarez [facility] PETCT SUBSEQUENT TREATMENT 2022-08-02 21:42:19 Sofy Almendarez [facility] STRATEGY [facility] OSI CT ABDOMEN AND PELVIS 2022-08-02 20:47:00 Sofy Almendarez [facility] OSI CT BRAIN 2022-08-02 20:47:00 Sofy Almendarez [facility] COMPREHENSIVE METABOLIC 2022-08-02 17:24:34 [facility] PANEL [facility] COMPLETE BLOOD COUNT W/ 2022-08-02 17:24:34 [facility] DIFFERENTIAL [facility] CREATINE KINASE 2022-08-02 17:24:34 Sofy Almendarez [facility] GAMMA GLUTAMYL TRANSFERASE 2022-08-02 17:24:34 Sofy Almendarez [facility] GLUCOSE LEVEL 2022-08-02 17:24:34 Sofy Almendarez [facility] BLOOD UREA NITROGEN 2022-08-02 17:24:34 Sofy Almendarez [facility] ELECTROLYTE PANEL 2022-08-02 17:24:34 Sofy Almendarez [facility] ity [facility] SERUM CREATININE 2022-08-02 17:24:34 [facility] .GLOMERULAR FILTRATION 2022-08-02 17:24:34 Sofy Almendarez Un iversity [facility] CALCIUM LEVEL 2022-08-02 17:24:34 [facility] ALBUMIN LEVEL 2022-08-02 17:24:34 Sofy Almendarez [facility] y [facility] ALKALINE PHOSPHATASE 2022-08-02 17:24:34 Sofy Almendarez [facility] ALANINE AMINOTRANSFERASE 2022-08-02 17:24:34 Sofy Almendarez [facility] ASPARTATE AMINOTRANSFERASE 2022-08-02 17:24:34 Sofy Almendarez [facility] TOTAL PROTEIN 2022-08-02 17:24:34 Sofy Almendarez [facility] FRACTIONATED BILIRUBIN 2022-08-02 17:24:34 Sofy Almendarez Un iversity [facility] .CBC 2022-08-02 17:24:34 Sofy Almendarez [facility] DIFFERENTIAL 2022-08-02 17:24:34 Sofy Almendarez [facility] XR CHEST 2 VW 2022-06-26 14:58:[address] [facility] 2022-06-16 17:20:00 Leodan Barakat old - External OSI CHEST 2022-06-16 14:58:00 Sofy Almendarez [facility] OSCILLATORY PEP 2022-05-28 14:00:10 Kunal [facility] er Surveyor OSCILLATORY PEP 2022-05-28 02:00:08 Kunal [facility] OSCILLATORY PEP 2022-05-27 14:00:11 Keaton Syed [facility] Zac [facility] COMPLETE BLOOD COUNT W/ 2022-05-27 10:03:00 Cday Heller [facility] INDICES [facility] BASIC METABOLIC PANEL, 2022-05-27 10:03:00 Cady [facility] CALCIUM TOTAL [facility] MAGNESIUM LEVEL 2022-05-27 10:03:00 Arron [facility] GLUCOSE LEVEL 2022-05-27 10:03:00 Arron [facility] BLOOD UREA NITROGEN 2022-05-27 10:03:00 Cady Heller [facility] ELECTROLYTE PANEL 2022-05-27 10:03:00 Arron [facility] SERUM CREATININE 2022-05-27 10:03:00 Arron [facility] .GLOMERULAR FILTRATION 2022-05-27 10:03:00 Cady Heller [facility] RATE [facility] CALCIUM LEVEL 2022-05-27 10:03:00 [facility]SC[facility] PEP 2022-05-26 20:01:25 Kunal [facility] OSCILLATORY PEP 2022-05-26 14:00:05 Kunal [facility] XR CHEST 2 VW 2022-05-26 13:50:49 Kunal [facility] CALCIUM IONIZED, VENOUS 2022-05-26 11:50:[address] [facility] SODIUM LEVEL 2022-05-26 11:50:00 Kunal [facility] POTASSIUM LEVEL 2022-05-26 11:50:00 Kunal [facility] CHLORIDE LEVEL 2022-05-26 11:50:00 Kunal [facility] CARBON DIOXIDE LEVEL 2022-05-26 11:50:00 Keaton Syed [facility] BLOOD UREA NITROGEN 2022-05-26 11:50:[address] [facility] CREATININE 2022-05-26 11:50:00 Keaton Syed [facility] GLUCOSE, RANDOM 2022-05-26 11:50:00 Keaton Syed [facility] MAGNESIUM LEVEL 2022-05-26 11:50:00 uKnal [facility] CALCIUM LEVEL 2022-05-26 11:50:00 Kunal [facility] PHOSPHORUS LEVEL 2022-05-26 11:50:00 Kunal [facility] COMPLETE BLOOD COUNT W/ 2022-05-26 11:50:00 Keaton Syed [facility] DIFFERENTIAL [facility] SERUM CREATININE 2022-05-26 11:50:00 Satya [facility] .GLOMERULAR FILTRATION 2022-05-26 11:50:00 Satya Warren [facility] .CBC 2022-05-26 11:50:00 [facility] 2022-05[facility]26 11:50:00 [facility] ANION GAP 2022-05-26 11:50:00 [facility] OSCILLATORY PEP 2022-05-26 02:46:56 Keaton Syed [facility] SODIUM LEVEL 2022-05-25 17:26:00 Kunal [facility] POTASSIUM LEVEL 2022-05-25 17:26:00 Kunal [facility] CHLORIDE LEVEL 2022-05-25 17:26:00 Kunal [facility] CARBON DIOXIDE LEVEL 2022-05-25 17:26:[address] [facility] BLOOD UREA NITROGEN 2022-05-25 17:26:00 Keaton Syed [facility] CREATININE 2022-05-25 17:26:00 Kunal [facility] GLUCOSE, RANDOM 2022-05-25 17:26:00 Kunal [facility] MAGNESIUM LEVEL 2022-05-25 17:26:00 Kunal [facility] CALCIUM LEVEL 2022-05-25 17:26:00 Kunal [facility] CALCIUM IONIZED, VENOUS 2022-05-25 17:26:[address] [facility] PHOSPHORUS LEVEL 2022-05-25 17:26:00 Kunal [facility] COMPLETE BLOOD COUNT W/ 2022-05-25 17:26:00 Kunal [facility] DIFFERENTIAL [facility] SERUM CREATININE 2022-05-25 17:26:00 Satya [facility] .GLOMERULAR FILTRATION 2022-05-25 17:26:00 [facility] .CBC 2022-05-25 17:26:00 Satya Warren [facility] DIFFERENTIAL 2022-05-25 17:26:00 Satya [facility] ANION GAP 2022-05-25 17:26:00 Satya Warren [facility] XR CHEST 1 VW 2022-05-25 16:56:06 Kunal [facility] PATHOLOGY SURGICAL 2022-05-25 14:21:00 [facility]IC (RATS[facility] LOBECTOMY 2022-05-25 12:27:00 Warren Hernadez [facility] ROBOTIC (RATS) MEDIASTINAL 2022-05-25 12:27:00 Sepesi, Warren U [facility] COMPLETE BLOOD COUNT W/ 2022-05-23 15:58:[address] [facility] DIFFERENTIAL [facility] COMPREHENSIVE METABOLIC 2022-05-23 15:58:[address] [facility] PANEL [facility] FREE THYROXINE 2022-05-23 15:58:50 Rian [facility] FERRITIN 2022-05-23 15:58:50 Rian [facility] HEMOGLOBIN A1C 2022-05-23 15:58:50 Rian [facility] IRON LEVEL 2022-05-23 15:58:50 Rian [facility] PROTHROMBIN TIME 2022-05-23 15:58:50 Rian [facility] APTT 2022-05-23 15:58:50 Rian [facility] TYPE AND SCREEN 2022-05-23 15:58:50 Rian [facility] TRANSFERRIN 2022-05-23 15:58:50 Rian [facility] .CBC 2022-05-23 15:58:50 Rian [facility] DIFFERENTIAL 2022-05-23 15:58:50 Rian [facility] GLUCOSE LEVEL 2022-05-23 15:58:50 Rian [facility] BLOOD UREA NITROGEN 2022-05-23 15:58:50 Rian [facility] ELECTROLYTE PANEL 2022-05-23 15:58:50 Rian [facility] SERUM CREATININE 2022-05-23 15:58:50 Rian [facility] .GLOMERULAR FILTRATION 2022-05-23 15:58:50 Rian [facility] RATE [facility] Center CALCIUM LEVEL 2022-05-23 15:58:50 Rian [facility] er Surveyor ALBUMIN LEVEL 2022-05-23 15:58:50 Rian [facility] ALKALINE PHOSPHATASE 2022-05-23 15:58:50 Rian [facility] ALANINE AMINOTRANSFERASE 2022-05-23 15:58:50 Rian [facility] ASPARTATE AMINOTRANSFERASE 2022-05-23 15:58:50 Josephine Jacobo [facility] TOTAL PROTEIN 2022-05-23 15:58:50 Rian [facility] er Surveyor FRACTIONATED BILIRUBIN 2022-05-23 15:58:50 Rian [facility] er Center ABORH 2022-05-23 15:58:50 Rian [facility] ANTIBODY SCREEN 2022-05-23 15:58:50 Rian [facility] er Center CLOT EXPIRATION DATE 2022-05-23 15:58:50 Rian [facility] TMP INTERPRETATION 2022-05-23 15:58:50 Rian [facility] ANTIBODY SCREEN NEGATIVE MD [facility] TMP CROSSMATCH 2022-05-23 15:58:50 Rian [facility] INTERPRETATION [facility] CONFIRM ABORH TYPE 2022-05-23 15:56:00 Rian [facility] COVID-19 (SARS-COV-2) PCR 2022-05-23 15:45:00 Warren Hernadez [facility] COVID-19 (SARS-COV-2) PCR 2022-05-23 15:45:00 Warren Hernadez [facility] COMPREHENSIVE METABOLIC 2022-05-09 15:15:00 Sofy [facility] PANEL [facility] COMPLETE BLOOD COUNT W/ 2022-05-09 15:15:00 Sofy Al[facility] [place] DIFFERENTIAL [facility] THYROID STIMULATING 2022-05-09 15:15:00 Sofy [facility] [place] HORMONE [facility] FREE THYROXINE 2022-05-09 15:15:00 Sofy Almendarez [facility] PHOSPHORUS LEVEL 2022-05-09 15:15:00 Sofy Almendarez [facility] MAGNESIUM LEVEL 2022-05-09 15:15:00 Sofy Almendarez [facility] GLUCOSE LEVEL 2022-05-09 15:15:00 Sofy Almendarez [facility] BLOOD UREA NITROGEN 2022-05-09 15:15:00 Sofy Almendarez [facility] ELECTROLYTE PANEL 2022-05-09 15:15:00 Sofy Almendarez ity [facility] SERUM CREATININE 2022-05-09 15:15:00 Sofy Almendarezi ty [facility] .GLOMERULAR FILTRATION 2022-05-09 15:15:00 Sofy Almendarez iversanais [facility] RATE [facility] CALCIUM LEVEL 2022-05-09 15:15:00 Sofy Almendarez [facility] ALBUMIN LEVEL 2022-05-09 15:15:00 Sofy Almendarez [facility] ALKALINE PHOSPHATASE 2022-05-09 15:15:00 Sofy Almendarez ersity [facility] ALANINE AMINOTRANSFERASE 2022-05-09 15:15:00 Sofy Almendarez [facility] ASPARTATE AMINOTRANSFERASE 2022-05-09 15:15:00 Sofy Almendarez [facility] TOTAL PROTEIN 2022-05-09 15:15:00 Sofy Almendarez [facility] FRACTIONATED BILIRUBIN 2022-05-09 15:15:00 Sofy Almendarez Un [facility] .CBC 2022-05-09 15:15:00 Sofy Almendarez [facility] DIFFERENTIAL 2022-05-09 15:15:00 Sofy Almendarez [facility] COMPLETE BLOOD COUNT W/ 2022-04-17 13:15:59 Sofy Almendarez [facility] [place] DIFFERENTIAL [facility] COMPREHENSIVE METABOLIC 2022-04-17 13:15:59 Sofy Almendarez [facility] [place] PANEL [facility] PHOSPHORUS LEVEL 2022-04-17 13:15:59 Sofy Almendarez [facility] MAGNESIUM LEVEL 2022-04-17 13:15:59 Sofy Almendarez [facility] .CBC 2022-04-17 13:15:59 Sofy Almendarez [facility] DIFFERENTIAL 2022-04-17 13:15:59 Sofy Almendarez [facility] GLUCOSE LEVEL 2022-04-17 13:15:59 Sofy Almendarez [facility] BLOOD UREA NITROGEN 2022-04-17 13:15:59 Sofy Almendarez Unive [facility] ELECTROLYTE PANEL 2022-04-17 13:15:59 Sofy Almendarez [facility] SERUM CREATININE 2022-04-17 13:15:59 Sofy Almendarez [facility] .GLOMERULAR FILTRATION 2022-04-17 13:15:59 Sofy Almendarez [facility] [place] RATE [facility] CALCIUM LEVEL 2022-04-17 13:15:59 Sofy Almendarez [facility] ALBUMIN LEVEL 2022-04-17 13:15:59 Sofy Almendarez [facility] ALKALINE PHOSPHATASE 2022-04-17 13:15:59 Sofy Almendarez [facility] ALANINE AMINOTRANSFERASE 2022-04-17 13:15:59 Sofy Almendarez [facility] ASPARTATE AMINOTRANSFERASE 2022-04-17 13:15:59 Sofy Almendarez E [facility] TOTAL PROTEIN 2022-04-17 13:15:59 Sofy Almendarez [facility] FRACTIONATED BILIRUBIN 2022-04-17 13:15:59 Sofy Almendarez E Un [facility] COMPREHENSIVE METABOLIC 2022-04-10 15:38:00 [facility] COMPLETE BLOOD COUNT W/ 2022-04-10 15:38:00 [facility] DIFFERENTIAL Dai HO [facility] MAGNESIUM LEVEL 2022-04-10 15:38:00 [facility] PHOSPHORUS LEVEL 2022-04-10 15:38:00 Moncho Philip [facility] Dai HO [facility] THYROID STIMULATING 2022-04-10 15:38:00 Moncho Philip [facility] HORMONE Dai HO [facility] FREE THYROXINE 2022-04-10 15:38:00 [facility] HO [facility] GLUCOSE LEVEL 2022-04-10 15:38:00 [facility] HO [facility] BLOOD UREA NITROGEN 2022-04-10 15:38:00 Moncho Philip [facility] Dai HO [facility] ELECTROLYTE PANEL 2022-04-10 15:38:00 Moncho Philip [facility] Dai HO [facility] SERUM CREATININE 2022-04-10 15:38:00 Moncho Philip [facility] Dai [facility] .GLOMERULAR FILTRATION 2022-04-10 15:38:00 Moncho Philip [facility] RATE Dai HO [facility] er Center CALCIUM LEVEL 2022-04-10 15:38:00 [facility] D[facility] HO [facility] er Center ALBUMIN LEVEL 2022-04-10 15:38:00 [facility] Dai HO [facility] er Surveyor ALKALINE PHOSPHATASE 2022-04-10 15:38:00 Moncho Philip [facility] Dai HO [facility] er Surveyor ALANINE AMINOTRANSFERASE 2022-04-10 15:38:00 Moncho Philip [facility] Dai HO [facility] er Surveyor ASPARTATE AMINOTRANSFERASE 2022-04-10 15:38:00 Moncho [facility] Dai HO [facility] er Surveyor TOTAL PROTEIN 2022-04-10 15:38:00 [facility] Dai HO [facility] er Surveyor FRACTIONATED BILIRUBIN 2022-04-10 15:38:00 Moncho Philip [facility] Dai HO [facility] er Surveyor .CBC 2022-04-10 15:38:00 Moncho [facility] Dai HO [facility] er Center DIFFERENTIAL 2022-04-10 15:38:00 [facility] Dai HO [facility] CT CHEST WO CONTRAST 2022-04-07 14:08:21 Yu Elmore [facility] er Surveyor 6 MINUTE WALK TEST 2022-03-20 15:53:15 Tammy [facility] er Center COMPREHENSIVE METABOLIC 2022-03-20 12:01:00 Moncho Philip [facility] PANEL Dai HO [facility] COMPLETE BLOOD COUNT W/ 2022-03-20 12:01:00 [facility] DIFFER[facility] Dai HO [facility] er Center MAGNESIUM LEVEL 2022-03-20 12:01:00 [facility] Dai HO [facility] er Center PHOSPHORUS LEVEL 2022-03-20 12:01:00 Moncho Philip [facility] Dai HO [facility] er Surveyor GLUCOSE LEVEL 2022-03-20 12:01:00 Moncho Philip [place] [facility] Dai HO [facility] BLOOD UREA NITROGEN 2022-03-20 12:01:00 Moncho Philip [facility] Dai HO [facility] ELECTROLYTE PANEL 2022-03-20 12:01:00 Moncho Philip [facility] Dai HO [facility] SERUM CREATININE 2022-03-20 12:01:00 Moncho Philip [facility] Dai HO [facility] .GLOMERULAR FILTRATION 2022-03-20 12:01:00 Moncho Philip [facility] Dai HO [facility] CALCIUM LEVEL TOTAL 2022-03-20 12:01:00 Moncho Philip [facility] Dai HO [facility] ALBUMIN LEVEL 2022-03-20 12:01:00 [facility]cho [facility] Dai HO [facility] ALKALINE PHOSPHATASE 2022-03-20 12:01:00 Moncho Philip [facility] Dai HO [facility] ALANINE AMINOTRANSFERASE 2022-03-20 12:01:00 Moncho Philip [facility] Dai HO [facility] er Surveyor ASPARTATE AMINOTRANSFERASE 2022-03-20 12:01:00 Moncho Philip [facility] Dai HO [facility] TOTAL PROTEIN 2022-03-20 12:01:00 Moncho [facility] o [facility] Dai HO [facility] er Surveyor FRACTIONATED BILIRUBIN 2022-03-20 12:01:00 Moncho Philip [facility] Dai HO [facility] er Surveyor Results CBC 2022-03-20 12:01:00 Moncho [facility] o [facility] Dai HO [facility] er Surveyor MANUAL DIFFERENTIAL 2022-03-20 12:01:00 Moncho Philip [facility] Dai HO [facility] er Surveyor COMPREHENSIVE METABOLIC 2022-02-27 13:30:00 Moncho Philip [facility] PANEL Dai HO [facility] COMPLETE BLOOD COUNT W/ 2022-02-27 13:30:00 Moncho Philip [facility] DIFFERENTIAL Dai HO [facility] MAGNESIUM LEVEL 2022-02-27 13:30:00 Moncho [facility] Dai HO [facility] PHOSPHORUS LEVEL 2022-02-27 13:30:00 [facility] Dai HO [facility] THYROID STIMULATING 2022-02-27 13:30:00 [facility] H[facility] Dai HO [facility] FREE THYROXINE 2022-02-27 13:30:00 Moncho [facility] Dai HO [facility] GLUCOSE LEVEL 2022-02-27 13:30:00 [facility] Dai HO [facility] BLOOD UREA NITROGEN 2022-02-27 13:30:00 Moncho Philip [facility] Dai HO [facility] ELECTROLYTE PANEL 2022-02-27 13:30:00 [facility] D[facility] HO [facility] SERUM CREATININE 2022-02-27 13:30:00 [facility] Dai HO [facility] .GLOMERULAR FILTRATION 2022-02-27 13:30:00 Moncho Philip [facility] RATE Dai HO [facility] CALCIUM LEVEL TOTAL 2022-02-27 13:30:00 Moncho Philip [facility] Dai HO [facility] ALBUMIN LEVEL 2022-02-27 13:30:00 Moncho [facility] Dai HO [facility] ALKALINE PHOSPHATASE 2022-02-27 13:30:00 [facility] ALANINE AMINOTRANSFERASE 2022-02-27 13:30:00 Lilia Crouch [facility] Dai HO [facility] ASPARTATE AMINOTRANSFERASE 2022-02-27 13:30:00 Moncho [facility] [place] [facility] TOTAL PROTEIN 2022-02-27 13:30:00 Moncho [place] Dai HO [facility] FRACTIONATED BILIRUBIN 2022-02-27 13:30:00 Moncho Philip [facility] Dai HO [facility] Results CBC 2022-02-27 13:30:00 Moncho Philip [place] Dai HO [facility] MANUAL DIFFERENTIAL 2022-02-27 13:30:00 Moncho Philip, [facility] Dai HO [facility] COVID-19 (SARS-COV-2) PCR 2022-02-11 20:11:00 Moncho Philip, [facility] Dai HO [facility] PETCT SUBSEQUENT TREATMENT 2022-02-07 20:05:40 Laurita [facility] STRATEGY Dai HO [facility] MRI BRAIN W WO CONTRAST 2022-02-04 15:41:00 Luz Crouch [facility] Dai HO [facility] SPIROMETRY W/DILATORS, 2022-02-03 19:30:48 Moncho Philip [facility] DLCO AND BODY Dai HO [facility] er PLETHSMOGRAPHIC LUNG Center VOLUMES APTT 2022-02-03 18:10:00 Moncho Philip [place] Dai HO [facility] PROTHROMBIN TIME 2022-02-03 18:10:00 Moncho Philip [facility] Dai HO [facility] COMPLETE BLOOD COUNT W/ 2022-02-03 18:10:00 Luz Crouch [facility] DIFFERENTIAL Dai HO [facility] COMPREHENSIVE METABOLIC 2022-02-03 18:10:00 Luz Crouch [facility] PANEL [facility]ai [facility] CORTISOL 2022-02-03 18:10:00 Moncho [facility] o [facility] Dai HO [facility] er Surveyor THYROID STIMULATING 2022-02-03 18:10:00 [facility] HORMONE Dai HO [facility] HEPATITIS B SURFACE 2022-02-03 18:10:00 Moncho [facility] ANTIGEN, SERUM Dai HO [facility] HEPATITIS C VIRUS AB 2022-02-03 18:10:00 [facility] S[facility]EN W/REFLEX HCV PCR Dai HO [facility] AMYLASE LEVEL 2022-02-03 18:10:00 Fllise [facility] CenterajnMethod[facility] o [facility] Dai HO [facility] LIPASE LEVEL 2022-02-03 18:10:00 Moncho [facility]jan[facility] o [facility] Dai HO [facility] GAMMA GLUTAMYL TRANSFERASE 2022-02-03 18:10:00 Moncho Philip [facility] Dai HO [facility] LACTATE DEHYDROGENASE 2022-02-03 18:10:00 [facility] MAGNESIUM LEVEL 2022-02-03 18:10:00 [facility]oh[facility] hospitallove [facility] Centerjan[facility] o [facility] Dai HO [facility] URINALYSIS WITH 2022-02-03 18:10:00 [facility] o [facility] MICROSCOPIC IF INDICATED Dai [facility] Results CBC 2022-02-03 18:10:00 Moncho [facility]jan[facility] o [facility] Dai HO [facility] MANUAL DIFFERENTIAL 2022-02-03 18:10:00 Moncho [facility]jan[facility] Dai HO [facility] GLUCOSE LEVEL 2022-02-03 18:10:00 Fllise [facility] Centerjan[facility] o [facility] Dai HO [facility] BLOOD UREA NITROGEN 2022-02-03 18:10:00 Moncho Philip [facility] Dai HO [facility] ELECTROLYTE PANEL 2022-02-03 18:10:00 Moncho Philip [facility] Dai HO [facility] SERUM CREATININE 2022-02-03 18:10:00 Moncho Philip, [facility] .GLOMERULAR FILTRATION 2022-02-03 18:10:00 Moncho [facility], [facility] CALCIUM LEVEL TOTAL 2022-02-03 18:10:00 [facility] ALBUMIN LEVEL 2022-02-03 18:10:00 Moncho [facility] o [facility] ALKALINE PHOSPHATASE 2022-02-03 18:10:00 [facility] ALANINE AMINOTRANSFERASE 2022-02-03 18:10:00 Moncho Philip, [facility] ASPARTATE AMINOTRANSFERASE 2022-02-03 18:10:00 Moncho Philip, [facility] TOTAL PROTEIN 2022-02-03 18:10:00 [facility] FRACTIONATED BILIRUBIN 2022-02-03 18:10:00 Moncho Philip, [facility] URINALYSIS MICROSCOPIC 2022-02-03 18:10:00 Moncho Philip, [facility] EKG, 12-LEAD (SCHEDULED) 2022-02-03 00:00:00 Moncho Philip, [facility] TISSUE SLIDES MATERIAL 2022-01-29 17:43:11 [facility] ALK MATERIAL 2022-01-22 23:11:00 Moncho Philip, [facility] REQUEST Dai [facility] AP FISH ROS1 MATERIAL 2022-01-22 23:11:00 Moncho Philip [facility] REQUEST Dai HO [facility] CT VENOGRAM BRAIN 2022-01-04 19:03:[address] [facility] MRI BRAIN W WO CONTRAST 2022-01-03 15:40:00 Sofy Almendarez [facility] er Center HP MDA LOR MUTATION 2022-01-03 15:20:00 Sofy Almendarez [facility] ANALYSIS PRECISION PANEL MD Kishore [facility] HP SOLID TUMOR GENOMIC 2022-01-03 15:20:00 Sofy Almendarez [facility] ASSAY FUSIONS 2018 MD Ramírez Brown ancer INTERPRETATION AND REPORT Center HP LB ROS1 FUSION ANALYSIS 2021-12-27 17:21:00 Sofy Almendarez [facility] COLLECTION, BLOOD [facility] HP LB RET FUSION ANALYSIS 2021-12-27 17:21:00 Sofy Almendarez [facility] COLLECTION, BLOOD [facility] HP LB MET MUTATION 2021-12-27 17:21:00 Sofy Almendarez [facility] ANALYSIS COLLECTION, BLOOD MD Nelson [facility] HP LB ERBB2 FULL GENE 2021-12-27 17:21:00 Sofy Almendarez [facility] MUTATION ANALYSIS [facility], BLOOD Center HP LB EML4/ALK FUSION 2021-12-27 17:21:00 Sofy Almendarez [facility] ANALYSIS COLLECTION, BLOOD MD [facility] HP LB BRAF MUTATION 2021-12-27 17:21:00 Sofy Almendarez [facility] ANALYSIS COLLECTION, BLOOD MD Nelson [facility] NGS BLOOD CONTROL 2021-12-27 17:21:00 Sofy Almendarez [facility] er Center HP LB LIQUID BIOPSY PANEL 2021-12-27 17:21:00 Sofy Almendarez [facility] V1 INTERPRETATION AND MD Jose Angel [facility] AP IHC PD-L1 MATERIAL 2021-12-27 16:44:06 Sofy Almendarez [facility] REQUEST MD Elmore [facility] Center AP ROS1 FUSION ANALYSIS 2021-12-27 16:44:06 Sofy Almendarez [facility] MATERIAL REQUEST [facility] AP RET FUSION ANALYSIS 2021-12-27 16:44:06 Sofy Almendarez [facility] MATERIAL REQUEST [facility] AP NTRK3 FUSION 2021-12-27 16:44:06 Sofy Almendarez [facility] ANALYSIS MATERIAL REQUEST [facility] AP NTRK2 FUSION 2021-12-27 16:44:06 Sofy Almendarez [facility] ANALYSIS MATERIAL REQUEST And [facility] AP NTRK1 FUSION 2021-12-27 16:44:06 Sofy Almendarez [facility] ANALYSIS MATERIAL REQUEST [facility] AP KRAS MUTATION 2021-12-27 16:44:06 Sofy Almendarez [facility] MATERIAL REQUEST [facility] AP EML4/ALK FUSION 2021-12-27 16:44:06 Sofy Almendarez [facility] ANALYSIS MATERIAL REQUEST And [facility] ANABEL HO BRAF V600 E MUTATION 2021-12-27 16:44:06 Sofy Almendarez [facility] MATERIAL REQUEST [facility] CYTOLOGY IMAGE-GUIDED FNA 2021-12-21 18:05:00 Kaylie [facility]ota [facility] INTERPRETATION [facility] BRONCHOSCOPY WITH EBUS 3 2021-12-21 17:21:00 Kaylie Mota [facility] OR MORE NODES [facility] COVID-19 (SARS-COV-2) 2021-12-20 18:44:00 Kaylie Mota [facility] PCR ASYMPTOMATIC [facility] XR CHEST 2 VW 2021-12-09 16:37:52 Jose Abernathy [facility] IR CHEST XRAY 1 VIEW 30 2021-12-02 19:53:15 [facility] CHEST XRAY 1 VIEW 30 2021-12-02 16:48:48 [facility] IR [facility] GUIDED BIOPSY 2021-12-02 16:40:35 Jose Abernathy [facility] LUNG/MEDIASTINAL 75 [facility] PATHOLOGY BIOPSY 2021-12-02 16:15:00 Jose Abernathy [facility] INTERPRETATION [facility] SPIROMETRY W/DILATORS, 2021-12-01 19:27:05 Jose Abernathy [facility] DLCO AND BODY [facility] PLETHSMOGRAPHIC LUNG Center VOLUMES COVID-19 (SARS-COV-2) 2021-12-01 15:36:00 Jose Abernathy [facility] PCR-ASYMPTOMATIC [facility] EKG, 12-LEAD (SCHEDULED) 2021-12-01 00:00:00 Jose [facility] CRYPTOCOCCAL ANTIGEN, 2021-11-29 23:01:00 Jose Abernathy [facility] SERUM [facility] CRYPTOCOCCAL ANTIGEN, 2021-11-29 23:01:00 Jose Abernathy [facility] SERUM PATH REVIEW [facility] COMPREHENSIVE METABOLIC 2021-11-29 23:01:00 Jose [facility] PANEL [facility] COMPLETE BLOOD COUNT W/ 2021-11-29 23:01:00 Jose [facility] DIFFERENTIAL [facility] PROTHROMBIN TIME 2021-11-29 23:01:00 Jose Abernathy [facility] APTT 2021-11-29 23:01:00 Jose Abernathy [facility] HEPATITIS B SURFACE 2021-11-29 23:01:00 Jose Abernathy [facility] ANTIGEN, SERUM [facility] HEPATITIS B CORE ANTIBODY 2021-11-29 23:01:00 Jose Aber[facility]athy [facility] HEPATITIS C VIRUS ANTIBODY 2021-11-29 23:01:00 Jose Abernathy [facility] THYROID STIMULATING 2021-11-29 23:01:00 Jose Abernathy [facility] HORMONE [facility] COCCIDIOIDES ANTIBODY 2021-11-29 23:01:00 Jose Abernathy [facility] HISTOPLASMA ANTIBODY 2021-11-29 23:01:00 Jose Abernathy [facility] SCREEN, SERUM [facility] T-SPOT TUBERCULOSIS 2021-11-29 23:01:[address] [facility] GLUCOSE LEVEL 2021-11-29 23:01:00 Jose Abernathy [facility] BLOOD UREA NITROGEN 2021-11-29 23:01:[address] [facility] ELECTROLYTE PANEL 2021-11-29 23:01:00 Jose Abernathy [facility] SERUM CREATININE 2021-11-29 23:01:00 Jose Abernathy [facility] .GLOMERULAR FILTRATION 2021-11-29 23:01:00 Jose Abernathy [facility] CALCIUM LEVEL TOTAL 2021-11-29 23:01:[address] [facility] ALBUMIN LEVEL 2021-11-29 23:01:00 Jose Abernathy [facility] ALKALINE PHOSPHATASE 2021-11-29 23:01:00 Jose Abernathy [facility] ALANINE AMINOTRANSFERASE 2021-11-29 23:01:00 Jose Aber[facility] ASPARTATE AMINOTRANSFERASE 2021-11-29 23:01:00 Jose Abernathy [facility] TOTAL PROTEIN 2021-11-29 23:01:00 Jose Abernathy [facility] FRACTIONATED BILIRUBIN 2021-11-29 23:01:00 Jose Abernathy [facility] Results CBC 2021-11-29 23:01:00 Jose Abernathy [facility] MANUAL DIFFERENTIAL 2021-11-29 23:01:00 Jose Abernathy [facility] OSI PET CT SKULL TO MID 2021-11-29 04:06:[address] [facility] OSI CT CHEST 2021-11-16 07:06:00 Brandyn Replaced By [facility] o f [facility] OSI BONE DENSITY STUDY 2021-10-28 07:06:00 Brandyn [facility] Plan of Care Planned Activity Planned Date Details Comments Source Future Scheduled 2023-04-09 COVID-19 Vaccination [facility] [place] Test 08:39:33 (#1) [code = COVID-19 MD [facility] Vaccination (#1)] Center Future Scheduled 2023-04-09 COVID-19 Vaccination Uni versity [...] Department ID 2022-08-08 Outpatient SYSTEM, LEONA DELGADILLO [id number] 11:08:18 PROVIDER Darryl wiseman 2022-06-21 Outpatient SYSTEM, [facility] [id number] 12:09:14 PROVIDER Darryl wiseman 2022-05-17 Outpatient SYSTEM, [facility] [id number] 10:45:58 PROVIDER Darryl wiseman 2021-11-21 Outpatient SYSTEM, [facility] MDA [id number] 15:33:59 PROVIDER Darryl wiseman 2023-04-08 2023-04-08 Mauri Ballesteros 1.2.840.1 [id number] Univers 00:00:00 00:00:00 40375.1.1 ity of 3.412.2.7 [place] .3.221847 MD Lott8 [facility] 2023-04-08 2023-04-08 Mauri Ballesteros 1.2.840.1 [id number] Univers 00:00:00 00:00:00 43344.1.1 ity of 3.412.2.7 [place] .3Kaylie079482 MD Mccurdy [facility] 2023-03-12 2023-03-12 Outpatient MORE BARAKAT [id number] More 00:00:00 00:00:00 LEODAN pollard 2023-03-09 2023-03-09 Mauri Ballesteros 1.2.840.1 [id number] Univers 00:00:00 00:00:00 87090.1.1 ity of 3.412.2.7 [place] .3.763251 MD Mccurdy [facility] 2023-03-09 2023-03-09 Mauri Ballesteros 1.2.840.1 [id number] Univers 00:00:00 00:00:00 83656.1.1 ity of 3.412.2.7 [place] .3.278839 MD Lott8 [facility] 2023-03-08 2023-03-08 Telephone FADY Thompson 1.2.116.014 [id number] Univers 00:00:00 00:00:00 Nathanael TEJADA 350.1.13.10 i Jason 4.2.7.2.686 Rod FLORES [id number] Ne dical NAL 5 [facility] 2023-03-08 2023-03-08 Orders Doctor GALO 1.2.840.114 [id number] Univers 00:00:00 00:00:00 Only Unassigned, VOLODYMYR 350.1.13.10 ity [facility] 4.2.7.2.686 Bladimir as [id number] [place] [address] [place] 2023-02-26 2023-02-26 Outpatient LAB90 MORE FLOWERS [id number] More 15:50:00 15:50:00 Seybol d 2023-02-26 2023-02-26 Outpatient MORE BARAKAT [id number] More 15:00:00 15:00:00 LEODAN Murphyybol rufus 2023-02-12 2023-02-12 Telemamy Rodriguez, 1.2.840.1 [id number] Univers 08:15:00 09:21:29 ne Keaton 17460.1.1 ity of 3.412.2.7 [place] .3.074287 MD Mccurdy [facility] 2023-02-12 2023-02-12 Telemamy Rodriguez 1.2.840.1 [id number] Univers 08:15:00 09:21:29 ne Keaton 27604.1.1 ity of 3.412.2.7 [place] .3Kaylie947670 MD Mccurdy [facility] 2023-02-10 2023-02-10 Mauri Ballesteros 1.2.840.1 [id number] Univers 00:00:00 00:00:00 84811.1.1 ity of 3.412.2.7 [place] .3Kaylie631571 MD Mccurdy [facility] 2023-02-10 2023-02-10 Mauri Ballesteros 1.2.840.1 [id number] Univers 00:00:00 00:00:00 03005.1.1 ity of 3.412.2.7 [place] .3Kaylie055527 MD Mccurdy [facility] 2023-02-08 2023-02-08 Outpatient MORE BARAKAT [id number] More 00:00:00 00:00:00 LEODAN Murphyybol rufus 2023-02-05 2023-02-05 Telemedici Thereselove 1.2.840.1 [id number] Univers 11:00:00 11:00:00 ne Xander, 54082.1.1 ity of Dai 3.412.2.7 [place] .3.486633 MD Lott8 [facility] 2023-02-05 2023-02-05 Telemedici KINDRA Salehlove 1.2.840.1 [id number] Univers 11:00:00 11:00:00 ne Xander, 43492.1.1 ity of Dai 3.412.2.7 [place] .3.582932 MD Lott8 [facility] 2023-02-02 2023-02-02 Ancillary Tanesha, 1.2.840.1 [id number] Univers 12:20:00 14:45:00 Procedure Sofy Brizuela 52698.1.1 ity of 3.412.2.7 [place] .3.292051 MD Lott8 [facility] 2023-02-02 2023-02-02 Ancillary EL Tanesha, 1.2.840.1 [id number] Univers 12:20:00 14:45:00 Procedure Sofy Brizuela 62274.1.1 ity of 3.412.2.7 [place] .3.879140 MD Lott8 [facility] 2023-02-02 2023-02-02 Outpatient EL TANESHA, MDA MDA [id number] 10:11:19 10:18:07 SOFY Novak rso n 2023-02-02 2023-02-02 Telephone Jeannette, 1.2.840.1 [id number] Univers 00:00:00 00:00:00 Lucia Pollard 23313.1.1 ity of 3.412.2.7 [place] .3.580572 MD Lott8 [facility] 2023-02-02 2023-02-02 Travel 1.2.840.1 1.2.846.201 [id number] Univers 00:00:00 00:00:00 26847.1.1 350.1.13.41 ity of 3.412.2.7 [place].3.698 [place]3.693416 084.8 MD Mccurdy [facility] 2023-02-02 2023-02-02 Telephone Jeannette, 1.2.840.1 [id number] Univers 00:00:00 00:00:00 Lucia Pollard 36973.1.1 ity of 3.412.2.7 [place] .3.022021 MD Mccurdy [facility] 2023-02-02 2023-02-02 Travel 1.2.840.1 1.2.132.231 [id number] Univers 00:00:00 00:00:00 76770.1.1 350.1.13.41 ity of 3.412.2.7 [place]7.3.698 [place] .3.335113 084.8 MD Mccurdy [facility] 2023-01-27 2023-01-27 Ancillary Tanesha, 1.2.840.1 [id number] Univers 20:00:00 20:05:00 Procedure Sofy Brizuela 41435.1.1 ity of 3.412.2.7 [place] .3.051787 MD Mccurdy [facility] 2023-01-27 2023-01-27 Ancillary EL Tanesha, 1.2.840.1 [id number] Univers 20:00:00 20:05:00 Procedure Sofy E 34496.1.1 ity of 3.412.2.7 [place] .3.480685 MD Mccurdy [facility] 2023-01-27 2023-01-27 Orders Tanesha, 1.2.840.1 [id number] Univers 00:00:00 00:00:00 Only Sofy E 03232.1.1 ity of 3.412.2.7 [place] .3.055071 MD Mccurdy [facility] 2023-01-27 2023-01-27 Orders Tanesha, 1.2.840.1 [id number] Univers 00:00:00 00:00:00 Only Sofy E 93866.1.1 ity of 3.412.2.7 [place] .3.218689 MD Lott8 [facility] 2023-01-23 2023-01-23 Orders Tanesha, 1.2.840.1 [id number] Univers 00:00:00 00:00:00 Only Sofy E 35082.1.1 ity of 3.412.2.7 [place] .3.823947 MD Lott8 [facility] 2023-01-23 2023-01-23 Orders Tanesha, 1.2.840.1 [id number] Univers 00:00:00 00:00:00 Only Sofy E 57437.1.1 ity of 3.412.2.7 [place] .3.519430 MD Lott8 [facility] 2023-01-22 2023-01-22 Orders Tanesha, 1.2.840.1 [id number] Univers 00:00:00 00:00:00 Only Sofy E 17204.1.1 ity of 3.412.2.7 [place] .3.855516 MD Lott8 [facility] 2023-01-22 2023-01-22 Orders Tanesha, 1.2.840.1 [id number] Univers 00:00:00 00:00:00 Only Sofy E 29007.1.1 ity of 3.412.2.7 [place] .3.551681 MD Lott8 [facility] 2023-01-19 2023-01-19 Outpatient MORE BARAKAT [id number] More 00:00:00 00:00:00 LEODAN pollard 2023-01-17 2023-01-17 Outpatient LAB90 MORE FLOWERS [id number] More 09:05:00 09:05:00 ybol rufus 2023-01-16 2023-01-16 Outpatient MORE BARAKAT [id number] More 14:30:00 14:30:00 LEODAN Murphyybol rufus 2023-01-162023-01-16 Ancillary Franklin, 1.2.840.1 [id number] Univers 08:15:00 10:00:00 Procedure Mona J 24499.1.1 ity of 3.412.2.7 [place] .3.996010 MD Mccurdy [facility] 2023-01-16 2023-01-16 Ancillary KINDRA Reid, 1.2.840.1 [id number] Univers 08:15:00 10:00:00 Procedure Mona J 13798.1.1 ity of 3.412.2.7 [place] .3.871090 MD Mccurdy [facility] 2023-01-16 2023-01-16 Travel 1.2.840.1 1.2.886.889 [id number] Univers 00:00:00 00:00:00 27363.1.1 350.1.13.41 ity of 3.412.2.7 [place]7.3.698 [place] .3.679928 08Nikunj.Kimberlee Mccurdy [facility] 2023-01-16 2023-01-16 Travel 1.2.840.1 1.2.444.309 [id number] Univers 00:00:00 00:00:00 00922.1.1 350.1.13.41 ity of 3.412.2.7 2.2.7.3.698 [place] .3.134752 084Kaylie8 MD Mccurdy [facility] 2023-01-12 2023-01-12 Ant Kay 1.2.840.1 [id number] Univers 08:00:00 08:30:00 leidy Montenegro 98326.1.1 ity of 3.412.2.7 [place] .3.423569 MD Mccurdy [facility] 2023-01-12 2023-01-12 Telemamy Kay 1.2.840.1 [id number] Univers 08:00:00 08:30:00 leidy Montenegro 12781.1.1 ity of 3.412.2.7 [place] .3.230271 MD Lott8 [facility] 2023-01-10 2023-01-10 Telephone Albarran, 1.2.840.1 [id number] Univers 00:00:00 00:00:00 Bruna Flores 27751.1.1 ity of 3.412.2.7 [place] .3.779791 MD Lott8 [facility] 2023-01-10 2023-01-10 Telephone Avis, 1.2.840.1 [id number] Univers 00:00:00 00:00:00 Bruna Flores 08285.1.1 ity of 3.412.2.7 [place] .3.691054 MD Lott8 [facility] 2023-01-09 2023-01-09 Outpatient KINDRA KAY MDA MDA [id number] 09:51:12 09:58:38 TANA [facility] 2023-01-09 2023-01-09 Travel 1.2.840.1 1.2.809.752 [id number] Univers 00:00:00 00:00:00 32052.1.1 350.1.13.41 ity of 3.412.2.7 [place]7.3.698 [place] .3.237361 084.8 MD Mccurdy [facility] 2023-01-09 2023-01-09 Travel 1.2.840.1 1.2.460.315 [id number] Univers 00:00:00 00:00:00 30587.1.1 350.1.13.41 ity of 3.412.2.7 2.[place].7.3.698 [place] .3.799863 084.8 MD Lott8 [facility] 2022-12-28 2022-12-28 Telephone FADY Thompson 1.2.860.932 [id number] Univers 00:00:00 00:00:00 Nathanael TEJADA 350.1.13.10 i ty [facility] 4.2.7.2.686 Rod montilla PROFESSIO [id number] Ne dical NAL 085 [facility] 2022-12-27 2022-12-27 Outpatient YUVAL MORE FLOWERS [id number] More 00:00:00 00:00:00 LEODAN pollard 2022-12-27 2022-12-27 Outpatient BLAKERohith MORE FLOWERS [id number] More 00:00:00 00:00:00 LEODAN pollard 2022-12-08 2022-12-08 Outpatient R NATHANAEL THOMPSON [facility] [id number] Univers 10:30:00 14:17:28 NATHANAEL THOMPSON i ty of [facility] 2022-12-08 2022-12-08 Office Noemí [facility] 1.2.840.114 [id number] Univers 10:30:00 11:00:00 Visit Nathanael TEJADA 350.1.13.10 i ty [facility] 4.2.7.2.686 Rod montilla PROFESSIO [id number] Ne dical NAL [address] [place] [address] 2022-11-27 2022-11-27 Outpatient MORE BARAKAT [id number] More 00:00:00 00:00:00 LEODAN pollard 2022-11-20 2022-11-20 [facility] 1.2.840.1 [id number] Univers 15:20:00 23:59:00 Encounter 56061.1.1 it y of 3.412.2.7 [place] .3.356816 .8 [facility] Cancer Surveyor 2022-11-20 2022-11-20 [facility] Momo Mauri 1.2.840.1 [id number] Univers 15:20:00 23:59:00 Encounter 57781.1.1 it y of 3.412.2.7 [place] .3.188031 MD Lott8 [facility] Cancer Surveyor 2022-11-16 2022-11-16 Outpatient MORE CARTER [id number] More 11:45:00 11:45:00 HECTOR pollard 2022-11-11 2022[facility]11-11 [facility] 1.2.840.1 [id number] Univers 00:00:00 00:00:00 60730.1.1 ity of 3.412.2.7 [place] .3.778588 MD Lott8 [facility] 2022-11-11 2022-11-11 Mauri Ballesteros 1.2.840.1 [id number] Univers 00:00:00 00:00:00 18265.1.1 ity of 3.412.2.7 [place] .3.713635 MD Lott8 [facility] 2022-11-09 2022-11-09 Joanna Ross 1.2.840.1 [id number] Univers 00:00:00 00:00:00 Only 39993.1.1 ity of 3.412.2.7 [place] .3.575001 MD Lott8 [facility] 2022-11-09 2022-11-09 Joanna Ross 1.2.840.1 [id number] Univers 00:00:00 00:00:00 Only 24858.1.1 ity of 3.412.2.7 [place] .3.478103 MD Mccurdy [facility] 2022-11-08 2022-11-08 Piedad Reid 1.2.840.1 [id number] Univers 00:00:00 00:00:00 Only Mona Vaughn 34845.1.1 i ty of 3.412.2.7 [place] .3.902767 MD Lott8 [facility] 2022-11-08 2022-11-08 Piedad Reid 1.2.840.1 [id number] Univers 00:00:00 00:00:00 Only Mona Vaughn 49224.1.1 i ty of 3.412.2.7 [place] .3.784328 MD Lott8 [facility] 2022-11-06 2022-11-06 Telemedici Moncho 1.2.840.1 [id number] Univers 10:00:00 13:18:38 leidy Philip 96389.1.1 ity of Dai 3.412.2.7 [place] .3.324885 MD Mccurdy [facility] 2022-11-06 2022-11-06 Telemedici KINDRA Moncho 1.2.840.1 [id number] Univers 10:00:00 13:18:38 ne Xander, 35659.1.1 ity of Dai 3.412.2.7 [place] .3.094546 MD Lott8 [facility] 2022-11-02 2022-11-02 Ancillary Rian, 1.2.840.1 [id number] Univers 09:55:00 11:20:00 Procedure Josephine 70798.1.1 i ty of 3.412.2.7 [place] .3.138434 MD Lott8 [facility] 2022-11-02 2022-11-02 Ancillary EL Rian, 1.2.840.1 [id number] Univers 09:55:00 11:20:00 Procedure Josephine 25392.1.1 i ty of 3.412.2.7 [place] .3.820891 MD Lott8 [facility] 2022-11-02 2022-11-02 Outpatient EL TANESHA, MDA MDA [id number] MD 08:54:07 09:04:50 SOFY Ande [facility] 2022-11-02 2022-11-02 Travel 1.2.840.1 1.2.100.161 [id number] Univers 00:00:00 00:00:00 22483.1.1 350.1.13.41 ity of 3.412.2.7 [place]7.3.698 [place] .3.208675 084.8 MD Mccurdy [facility] 2022-11-02 2022-11-02 Travel 1.2.840.1 1.2.244.430 [id number] Univers 00:00:00 00:00:00 19574.1.1 350.1.13.41 ity of 3.412.2.7 2.[place]7.3.698 [place] .3.540449 084.8 MD .8 [facility] 2022-10-31 2022-10-31 Outpatient MORE BARAKAT [id number] More 00:00:00 00:00:00 LEODAN pollard 2022-10-25 2022-10-25 Piedad Reid, 1.2.840.1 [id number] Univers 00:00:00 00:00:00 Only Mona Vaughn 91691.1.1 i ty of 3.412.2.7 [place] .3.450423 MD Lott8 [facility] 2022-10-25 2022-10-25 Piedad Reid, 1.2.840.1 [id number] Univers 00:00:00 00:00:00 Only Mona Vaughn 70408.1.1 i ty of 3.412.2.7 [place] .3.953325 MD Mccurdy [facility] 2022-10-24 2022-10-24 Evin Reid 1.2.840.1 [id number] Univers 00:00:00 00:00:00 Mona Vaughn 50869.1.1 i ty of 3.412.2.7 [place] .3.473768 MD Lott8 [facility] 2022-10-24 2022-10-24 Evin Reid 1.2.840.1 [id number] Univers 00:00:00 00:00:00 Mona Vaughn 72119.1.1 i ty of 3.412.2.7 [place] .3.031804 MD Lott8 [facility] 2022-10-11 2022-10-11 Outpatient MORE BARAKAT [id number] More 00:00:00 00:00:00 LEODAN pollard 2022-10-07 2022-10-07 Mauri Ballesteros 1.2.840.1 [id number] Univers 00:00:00 00:00:00 34274.1.1 ity of 3.412.2.7 [place] .3.868846 MD Mccurdy [facility] 2022-10-07 2022-10-07 Mauri Ballesteros 1.2.840.1 [id number] Univers 00:00:00 00:00:00 56222.1.1 ity of 3.412.2.7 [place] .3.498333 MD Mccurdy [facility] 2022-10-04 2022-10-04 Outpatient MORE BARAKAT MORE [id number] More 09:00:00 09:00:00 LEODAN ybol rufus 2022-10-02 2022-10-02 Outpatient MORE BARAKAT MORE [id number] More 00:00:00 00:00:00 LEODAN ybol rufus 2022-09-29 2022-09-29 Telephone Tanesha, 1.2.840.1 [id number] Univers 00:00:00 00:00:00 Sofy E 16978.1.1 ity of 3.412.2.7 [place] .3.970315 MD Mccurdy [facility] 2022-09-29 2022-09-29 Telephone Smolensky, 1.2.840.1 [id number] Univers 00:00:00 00:00:00 Lilian 14068.1.1 ity of 3.412.2.7 [place] .3.372452 MD Mccurdy [facility] 2022-09-29 2022-09-29 Telephone Smolensky, 1.2.840.1 [id number] Univers 00:00:00 00:00:00 Lilian 38203.1.1 ity of 3.412.2.7 [place] .3.232928 MD Mccurdy [facility] 2022-09-29 2022-09-29 Telephone Tanesha, 1.2.840.1 [id number] Univers 00:00:00 00:00:00 Sofy E 81713.1.1 ity of 3.412.2.7 [place] .3.878196 MD Mccurdy [facility] 2022-09-22 2022-09-22 Orders Rian, 1.2.840.1 [id number] Univers 00:00:00 00:00:00 Only Josephine 38029.1.1 ity of 3.412.2.7 [place] .3.597415 MD Mccurdy [facility] 2022-09-22 2022-09-22 Orders Rian, 1.2.840.1 [id number] Univers 00:00:00 00:00:00 Only Josephine 89995.1.1 ity of 3.412.2.7 [place] .3.253341 MD Mccurdy [facility] 2022-09-12 2022-09-12 [facility] Tanesha, 1.2.840.1 [id number] Univers 08:40:57 23:59:00 Encounter Sofy Brizuela 38497.1.1 ity of 3.412.2.7 [place] .3.417012 MD Mccurdy [facility] 2022-09-12 2022-09-12 [facility] Tanesha, 1.2.840.1 [id number] Univers 08:40:57 23:59:00 Encounter Sofy Brizuela 34669.1.1 ity of 3.412.2.7 [place] .3.023164 MD Mccurdy [facility] 2022-09-12 2022-09-12 Consult Jim, 1.2.840.1 [id number] Univers 09:30:00 10:44:27 Tana Montenegro 02102.1.1 ity of 3.412.2.7 [place] .3.831340 MD Mccurdy [facility] 2022-09-12 2022-09-12 Consult KINDRA Kay, 1.2.840.1 [id number] Univers 09:30:00 10:44:27 Tana Montenegro 51243.1.1 ity of 3.412.2.7 [place] .3.560861 MD Mccurdy [facility] 2022-09-12 2022-09-12 Travel 1.2.840.1 1.2.592.525 3591 [id number] Univers 00:00:00 00:00:00 28707.1.1 350.1.13.41 ity of 3.412.2.7 [place]7.3.698 [place] .3.419897 084.8 MD Mccurdy [facility] 2022-09-12 2022-09-12 Travel 1.2.840.1 1.2.813.633 4404 [id number] Univers 00:00:00 00:00:00 36171.1.1 350.1.13.41 ity of 3.412.2.7 [place].3.698 [place] .3.516128 084.8 MD Mccurdy [facility] 2022-09-04 2022-09-04 Orders Vanessa, 1.2.840.1 [id number] 1405 Univers 00:00:00 00:00:00 Only Moushumi 04591.1.1 ity of 3.412.2.7 [place] .3.276876 MD Mccurdy [facility] 2022-09-04 2022-09-04 Orders Vanessa, 1.2.840.1 [id number] Univers 00:00:00 00:00:00 Only Moushumi 65253.1.1 ity of 3.412.2.7 [place] .3.017638 MD Mccurdy [facility] 2022-09-01 2022-09-01 [facility] 1.2.840.1 [id number] 1 [id number] Univers 11:35:17 23:59:00 Encounter 44768.1.1 it y of 3.412.2.7 [place] .3.266016 MD Mccurdy [facility] 2022-09-01 2022-09-01 [facility] 1.2.840.1 [id number] 1 [id number] Univers 11:35:17 23:59:00 Encounter 57863.1.1 it y of 3.412.2.7 [place] .3.796894 MD Mccurdy [facility] 2022-09-01 2022-09-01 Outpatient MORE BARAKAT [id number] More 00:00:00 00:00:00 LEODAN pollard 2022-09-01 2022-09-01 Refdavid Momo, Mauri 1.2.840.1 [id number] 11 [id number] Univers 00:00:00 00:00:00 92176.1.1 ity of 3.412.2.7 [place] .3.002292 MD Mccurdy [facility] 2022-09-01 2022-09-01 Refdavid Barr Mauri 1.2.840.1 [id number] 11 [id number] Univers 00:00:00 00:00:00 23885.1.1 ity of 3.412.2.7 [place] .3.548806 MD Lott8 [facility] 2022-08-30 2022-08-30 Telephone Derrek, 1.2.840.1 [id number] 1103 [id number] Univers 00:00:00 00:00:00 Cyndy Newberry 30663.1.1 i ty of 3.412.2.7 [place] .3.125480 MD Mccurdy [facility] 2022-08-30 2022-08-30 Telephone Derrek, 1.2.840.1 [id number] 1103 [id number] Univers 00:00:00 00:00:00 Cyndy Newberry 54347.1.1 i ty of 3.412.2.7 [place] .3.825965 MD Mccurdy [facility] 2022-08-21 2022-08-21 Telemedici Moncho 1.2.840.1 [id number] [id number] Univers 15:20:00 15:20:00 leidy Philip 52802.1.1 ity of Dai 3.412.2.7 [place] .3.503710 MD Lott8 [facility] 2022-08-21 2022-08-21 Telemedici EL Moncho 1.2.840.1 [id number] [id number] Univers 15:20:00 15:20:00 ne Xander 38253.1.1 ity of Dai 3.412.2.7 [place] .3.373181 MD Lott8 [facility] 2022-08-21 2022-08-21 Outpatient EL TANESHA, MDA MDA [id number] 778 10:06:55 10:43:55 SOFY Novak [facility] 2022-08-21 2022-08-21 Travel 1.2.840.1 1.2.723.359 0305 [id number] Univers 00:00:00 00:00:00 64480.1.1 350.1.13.41 ity of 3.412.2.7 2.2.7.3.698 [place] .3.411905 084.8 MD Lott8 [facility] 2022-08-21 2022-08-21 Travel 1.2.840.1 1.2.824.588 0315 [id number] Univers 00:00:00 00:00:00 37417.1.1 350.1.13.41 ity of 3.412.2.7 2.[place].7.3.698 [place] .3.875834 084.8 MD Mccurdy [facility] 2022-08-15 2022-08-15 Orders Tanesha, 1.2.840.1 [id number] Univers 00:00:00 00:00:00 Only Sofy Chata 99077.1.1 ity of 3.412.2.7 [place] .3.133756 MD Lott8 [facility] 2022-08-15 2022-08-15 Orders Tanesha, 1.2.840.1 [id number] Univers 00:00:00 00:00:00 Only Sofy Brizuela 07432.1.1 ity of 3.412.2.7 [place] .3.747302 MD Mccurdy [facility] 2022-08-14 2022-08-14 Outpatient KINDRA ALMENDAREZ [facility] MDA [id number] 800 09:15:57 09:23:01 SOFY Novak [facility] 2022-08-14 2022-08-14 Travel 1.2.840.1 1.2.577.028 3643 [id number] Univers 00:00:00 00:00:00 92309.1.1 350.1.13.41 ity of 3.412.2.7 2.[place].7.3.698 [place] .3.320640 084.8 .8 [facility] 2022-08-14 2022-08-14 Travel 1.2.840.1 1.2.781.802 2591 [id number] Univers 00:00:00 00:00:00 22102.1.1 350.1.13.41 ity of 3.412.2.7 [place].7.3.698 [place] .3.170352 084.8 MD Lott8 [facility] 2022-08-10 2022-08-10 Ancillary Tanesha, 1.2.840.1 [id number] 1103 [id number] Univers 20:05:00 20:10:00 Procedure Sofy E 38170.1.1 ity of 3.412.2.7 [place] .3.794396 MD Mccurdy [facility] 2022-08-10 2022-08-10 Ancillary EL Tanesha, 1.2.840.1 [id number] 1103 [id number] Univers 20:05:00 20:10:00 Procedure Sofy E 44772.1.1 ity of 3.412.2.7 [place] .3.720539 MD Mccurdy [facility] 2022-08-10 2022-08-10 Ancillary Tanesha, 1.2.840.1 [id number] 1103 [id number] Univers 20:00:00 20:05:00 Procedure Sofy E 34081.1.1 ity of 3.412.2.7 [place] .3.726214 MD Lott8 [facility] 2022-08-10 2022-08-10 Ancillary EL Tanesha, 1.2.840.1 [id number] 1103 [id number] Univers 20:00:00 20:05:00 Procedure Sofy E 64588.1.1 ity of 3.412.2.7 [place] .3.535471 MD Mccurdy [facility] 2022-08-10 2022-08-10 Orders Tanesha, 1.2.840.1 [id number] Univers 00:00:00 00:00:00 Only Sofy E 00809.1.1 ity of 3.412.2.7 [place] .3.881244 MD Mccurdy [facility] 2022-08-10 2022-08-10 Orders Tanesha, 1.2.840.1 [id number] Univers 00:00:00 00:00:00 Only Sofy Brizuela 93658.1.1 ity of 3.412.2.7 [place] .3.473036 MD Mccurdy [facility] 2022-08-09 2022-08-09 Refill Tanesha, 1.2.840.1 [id number] Univers 00:00:00 00:00:00 Sofy Brizuela 28020.1.1 ity of 3.412.2.7 [place] .3.597966 MD Mccurdy [facility] 2022-08-09 2022-08-09 Refill Tanesha, 1.2.840.1 [id number] Univers 00:00:00 00:00:00 Sofy Brizuela 07361.1.1 ity of 3.412.2.7 [place] .3.155965 MD Mccurdy [facility] 2022-08-07 2022-08-07 Outpatient EL TANESHA, MDA MDA [id number] 09:10:15 09:37:45 SOFY Novak [facility] 2022-08-07 2022-08-07 Orders Tanesha, 1.2.840.1 [id number] Univers 00:00:00 00:00:00 Only Sofy Brizuela 64623.1.1 ity of 3.412.2.7 [place] .3.464777 MD Mccurdy [facility] 2022-08-07 2022-08-07 Telephone Majenuri, 1.2.840.1 [id number] Univers 00:00:00 00:00:00 Holly 84438.1.1 ity of 3.412.2.7 [place] .3.833632 MD Mccurdy [facility] 2022-08-07 2022-08-07 Orders Tanesha, 1.2.840.1 [id number] Univers 00:00:00 00:00:00 Only Sofy E 50778.1.1 ity of 3.412.2.7 [place] .3.584027 MD Mccurdy [facility] 2022-08-07 2022-08-07 Orders Tanesha, 1.2.840.1 [id number] Univers 00:00:00 00:00:00 Only Sofy E 17349.1.1 ity of 3.412.2.7 [place] .3.586195 MD Lott8 [facility] 2022-08-07 2022-08-07 Telephone Maisuri, 1.2.840.1 [id number] Univers 00:00:00 00:00:00 Holly 97343.1.1 ity of 3.412.2.7 [place] .3.120852 MD Mccurdy [facility] 2022-08-07 2022-08-07 Orders Tanesha, 1.2.840.1 [id number] Univers 00:00:00 00:00:00 Only Sofy Brizuela 74297.1.1 ity of 3.412.2.7 [place] .3.176019 MD Lott8 [facility] 2022-08-04 2022-08-04 [facility] 1.2.840.1 [id number] 1 [id number] Univers 10:11:22 23:59:00 Encounter 60826.1.1 it y of 3.412.2.7 [place] .3.698561 MD Mccurdy [facility] 2022-08-04 2022-08-04 [facility] 1.2.840.1 [id number] 1 [id number] Univers 10:11:22 23:59:00 Encounter 36507.1.1 it y of 3.412.2.7 [place] .3.346800 MD Lott8 [facility] 2022-08-04 2022-08-04 Telephone Tanesha, 1.2.840.1 [id number] 1102 [id number] Univers 00:00:00 00:00:00 Sofy E 12269.1.1 ity of 3.412.2.7 [place] .3.080126 MD Lott8 [facility] 2022-08-04 2022-08-04 Travel 1.2.840.1 1.2.568.666 3522 [id number] Univers 00:00:00 00:00:00 63556.1.1 350.1.13.41 ity of 3.412.2.7 [place].7.3.698 [place] .3.633569 084.8 MD Lott8 [facility] 2022-08-04 2022-08-04 Telephone Tanesha, 1.2.840.1 [id number] 1102 [id number] Univers 00:00:00 00:00:00 Sofy Brizuela 98238.1.1 ity of 3.412.2.7 [place] .3.846224 MD Lott8 [facility] 2022-08-04 2022-08-04 Travel 1.2.840.1 1.2.326.432 8875 [id number] Univers 00:00:00 00:00:00 24465.1.1 350.1.13.41 ity of 3.412.2.7 2.2.7.3.698 [place] .3.860903 084.8 MD Mccurdy [facility] 2022-08-02 2022-08-02 Ancillary Tanesha, 1.2.840.1 [id number] 1102 [id number] Univers 13:30:00 16:00:00 Procedure Sofy Brizuela 10757.1.1 ity of 3.412.2.7 [place] .3.842784 MD Mccurdy [facility] 2022-08-02 2022-08-02 Ancillary EL Tanesha, 1.2.840.1 [id number] 1102 [id number] Univers 13:30:00 16:00:00 Procedure Sofy Brizuela 93586.1.1 ity of 3.412.2.7 [place] .3.022000 MD Mccurdy [facility] 2022-08-02 2022-08-02 Outpatient EL TANESHA, MDA MDA [id number] MD 11:06:37 11:24:51 SOFY Novak o bowen 2022-08-022022-08-02 Travel 1.2.840.1 1.2.946.023 3096 [id number] Univers 00:00:00 00:00:00 77342.1.1 350.1.13.41 ity of 3.412.2.7 2.2.7.3.698 [place] .3.042954 084.8 MD Mccurdy [facility] 2022-08-02 2022-08-02 Travel 1.2.840.1 1.2.571.638 4765 [id number] Univers 00:00:00 00:00:00 55739.1.1 350.1.13.41 ity of 3.412.2.7 2.2.7.3.698 [place] .3.419877 084.8 MD Mccurdy [facility] 2022-07-31 2022-07-31 Office Michael 1.2.840.1 [id number] Univers 08:45:00 10:23:02 Visit Keaton 38482.1.1 ity of 3.412.2.7 [place] .3.488288 MD Mccurdy [facility] 2022-07-31 2022-07-31 Office KINDRA Rodriguez 1.2.840.1 [id number] Univers 08:45:00 10:23:02 Visit Keaton 96083.1.1 ity of 3.412.2.7 [place] .3.809725 MD Mccurdy [facility] 2022-07-31 2022-07-31 Outpatient MORE BARAKAT [id number] More 00:00:00 00:00:00 LEODAN pollard 2022-07-31 2022-07-31 Orders Yasmark, 1.2.840.1 [id number] Univers 00:00:00 00:00:00 Only Max 47540.1.1 ity of 3.412.2.7 [place] .3.808127 MD Mccurdy [facility] 2022-07-31 2022-07-31 Orders Tanesha, 1.2.840.1 [id number] Univers 00:00:00 00:00:00 Only Sofy E 97233.1.1 ity of 3.412.2.7 [place] .3.847006 MD Mccurdy [facility] 2022-07-31 2022-07-31 Orders Tanesha, 1.2.840.1 [id number] Univers 00:00:00 00:00:00 Only Sofy E 02352.1.1 ity of 3.412.2.7 [place] .3.255269 MD Mccurdy [facility] 2022-07-31 2022-07-31 Travel 1.2.840.1 1.2.273.155 9698 [id number] Univers 00:00:00 00:00:00 82395.1.1 350.1.13.41 ity of 3.412.2.7 2.2.7.3.698 [place] .3.707057 084.8 MD Mccurdy [facility] 2022-07-31 2022-07-31 Orders [place], 1.2.840.1 [id number] 11 [id number] Univers 00:00:00 00:00:00 Only Max 75804.1.1 ity of 3.412.2.7 [place] .3.486236 MD Mccurdy [facility] 2022-07-31 2022-07-31 Orders Tanesha, 1.2.840.1 [id number] Univers 00:00:00 00:00:00 Only Sofy E 92664.1.1 ity of 3.412.2.7 [place] .3.583702 MD Mccurdy [facility] 2022-07-31 2022-07-31 Orders Tanesha, 1.2.840.1 [id number] Univers 00:00:00 00:00:00 Only Sofy E 90705.1.1 ity of 3.412.2.7 [place] .3.212591 MD Mccurdy [facility] 2022-07-31 2022-07-31 Travel 1.2.840.1 1.2.905.942 8645 [id number] Univers 00:00:00 00:00:00 46964.1.1 350.1.13.41 ity of 3.412.2.7 2.2.7.3.698 [place] .3.124741 084.8 MD Mccurdy [facility] 2022-07-28 2022-07-28 Orders Tanesha, 1.2.840.1 [id number] Univers 00:00:00 00:00:00 Only Sofy Chata 61380.1.1 ity of 3.412.2.7 [place] .3.253031 MD Lott8 [facility] 2022-07-28 2022-07-28 Orders Tanesha, 1.2.840.1 [id number] Univers 00:00:00 00:00:00 Only Sofy E 36952.1.1 ity of 3.412.2.7 [place] .3.235186 MD Mccurdy [facility] 2022-07-27 2022-07-27 Orders Rian, 1.2.840.1 [id number] Univers 00:00:00 00:00:00 Only Josephine 08247.1.1 ity of 3.412.2.7 [place] .3.320834 MD Lott8 [facility] 2022-07-27 2022-07-27 Orders Rian, 1.2.840.1 [id number] 3615 Univers 00:00:00 00:00:00 Only Josephine 45917.1.1 ity of 3.412.2.7 [place] .3.754653 MD Mccurdy [facility] 2022-07-27 2022-07-27 Orders Rina, 1.2.840.1 [id number] Univers 00:00:00 00:00:00 Only Josephine 03768.1.1 ity of 3.412.2.7 [place] .3.618150 MD Mccurdy [facility] 2022-07-27 2022-07-27 Orders Rian, 1.2.840.1 [id number] 7314 Univers 00:00:00 00:00:00 Only Josephine 62337.1.1 ity of 3.412.2.7 [place] .3.801230 MD Lott8 [facility] 2022-07-07 2022-07-07 Outpatient MORE BARAKAT [id number] More 00:00:00 00:00:00 LEODAN Gallowayjes pollard 2022-07-04 2022-07-04 Telemedici Moncho 1.2.840.1 [id number] [id number] Univers 11:00:00 11:00:00 ne Xander, 78160.1.1 ity of Dai 3.412.2.7 [place] .3.857367 MD Lott8 [facility] 2022-07-04 2022-07-04 Telemedici KINDRA Ivan 1.2.840.1 [id number] Univers 11:00:00 11:00:00 ne Xander, 56330.1.1 ity of Dai 3.412.2.7 [place] .3.979230 MD Lott8 [facility] 2022-07-04 2022-07-04 Orders Tanesha, 1.2.840.1 [id number] Univers 00:00:00 00:00:00 Only Sofy Brizuela 57714.1.1 ity of 3.412.2.7 [place] .3.904442 MD Lott8 [facility] 2022-07-04 2022-07-04 Orders Tanesha, 1.2.840.1 [id number] Univers 00:00:00 00:00:00 Only Sofy Brizuela 49014.1.1 ity of 3.412.2.7 [place] .3.555830 MD Lott8 [facility] 2022-06-30 2022-06-30 Telemedici Satya, 1.2.840.1 [id number] [id number] Univers 10:00:00 11:25:51 ne Warren 65610.1.1 ity of 3.412.2.7 [place] .3.969055 MD Lott8 [facility] 2022-06-30 2022-06-30 Telemedici EL Sepdarion, 1.2.840.1 [id number] Univers 10:00:00 11:25:51 ne Warren 64204.1.1 ity of 3.412.2.7 [place] .3.333574 MD Lott8 [facility] 2022-06-29 2022-06-29 Ancillary Tanesha, 1.2.840.1 [id number] 1101 [id number] Univers 20:00:00 20:05:00 Procedure Sofy E 43846.1.1 ity of 3.412.2.7 [place] .3.606620 MD Lott8 [facility] 2022-06-29 2022-06-29 Ancillary EL Tanesha, 1.2.840.1 [id number] 1101 [id number] Univers 20:00:00 20:05:00 Procedure Sofy E 16505.1.1 ity of 3.412.2.7 [place] .3.106769 MD Lott8 [facility] 2022-06-29 2022-06-29 Orders Tanesha, 1.2.840.1 [id number] Univers 00:00:00 00:00:00 Only Sofy E 67629.1.1 ity of 3.412.2.7 [place] .3.043585 MD Lott8 [facility] 2022-06-29 2022-06-29 Orders Tanesha, 1.2.840.1 [id number] Univers 00:00:00 00:00:00 Only Sofy E 24691.1.1 ity of 3.412.2.7 [place] .3.889151 MD Lott8 [facility] 2022-06-28 2022-06-28 Ancillary Vailati 1.2.840.1 [id number] [id number] Univers 20:00:00 20:05:00 Procedure Negrao, 95674.1.1 it y of Dai 3.412.2.7 [place] .3.293017 MD Lott8 [facility] 2022-06-28 2022-06-28 Ancillary EL Dasiailalove 1.2.840.1 [id number] 1101 [id number] Univers 20:00:00 20:05:00 Procedure Negrao, 85799.1.1 it y of Dai 3.412.2.7 [place] .3.529966 MD Mccurdy [facility] 2022-06-26 2022-06-26 Ancillary Rian, 1.2.840.1 [id number] 1101 [id number] Univers 09:15:00 09:30:00 Procedure Josephine 97846.1.1 i ty of 3.412.2.7 [place] .3.633595 MD Lott8 [facility] 2022-06-26 2022-06-26 Ancillary EL Rian, 1.2.840.1 [id number] 1101 [id number] Univers 09:15:00 09:30:00 Procedure Josephine 30874.1.1 i ty of 3.412.2.7 [place] .3.947829 MD Mccurdy [facility] 2022-06-26 2022-06-26 Travel 1.2.840.1 1.2.069.107 7713 [id number] Univers 00:00:00 00:00:00 36368.1.1 350.1.13.41 ity of 3.412.2.7 2.2.7.3.698 [place] .3.748724 084.8 MD Mccurdy [facility] 2022-06-26 2022-06-26 Travel 1.2.840.1 1.2.472.683 7970 [id number] Univers 00:00:00 00:00:00 05742.1.1 350.1.13.41 ity of 3.412.2.7 2.2.7.3.698 [place] .3.463974 084.8 MD Mccurdy [facility] 2022-06-23 2022-06-23 [place] [id number] More 14:00:00 14:00:00 Hermann pollard 2022-06-22 2022-06-22 Outpatient MORE BARAKAT [id number] More 00:00:00 00:00:00 LEODAN Seybol d 2022-06-21 2022-06-21 Outpatient MORE BARAKAT MORE [id number] More 00:00:00 00:00:00 LEODAN Seybol d 2022-06-20 2022-06-20 Outpatient MORE BARAKAT MORE [id number] More 00:00:00 00:00:00 LEODAN Seybol d 2022-06-16 2022-06-16 Outpatient LAB90 MORE MORE [id number] More 10:15:00 10:15:00 Seybol d 2022-06-16 2022-06-16 Outpatient BLAKELMORE MORE [id number] More 09:30:00 09:30:00 LEODAN Seybol d 2022-06-09 2022-06-09 Orders Trafford, 1.2.840.1 [id number] Univers 00:00:00 00:00:00 Only Paula 65373.1.1 ity of 3.412.2.7 [place] .3.538951 .8 [facility] 2022-06-09 2022-06-09 Orders Winston, 1.2.840.1 [id number] Univers 00:00:00 00:00:00 Only Paula 12854.1.1 ity of 3.412.2.7 [place] .3.803246 MD Lott8 [facility] 2022-06-08 2022-06-08 Outpatient PREZAS MORE MORE [id number] More 00:00:00 00:00:00 HECTOR Seybol d 2022-05-31 2022-05-31 Telephone Rian, 1.2.840.1 [id number] Univers 00:00:00 00:00:00 Josephine 57986.1.1 ity of 3.412.2.7 [place] .3.165009 MD Lott8 [facility] 2022-05-31 2022-05-31 Telephone Rian, 1.2.840.1 [id number] Univers 00:00:00 00:00:00 Josephine 94703.1.1 ity of 3.412.2.7 [place] .3.590295 MD Mccurdy [facility] 2022-05-25 2022-05-29 [facility], 1.2.840.1 [id number] Univers 05:20:00 12:30:00 Encounter Warren 41799.1.1 it y of 3.412.2.7 [place] .3.839306 MD Lott8 [facility] 2022-05-25 2022-05-29 [facility], 1.2.840.1 [id number] [id number] Univers 05:20:00 12:30:00 Encounter Warren 85423.1.1 it y of 3.412.2.7 [place] .3.845877 MD Lott8 [facility] 2022-05-29 2022-05-29 [facility], [facility] [id number] MD 05:49:54 06:21:47 WARREN Darryl o 2022-05-25 2022-05-25 [facility], 1.2.840.1 [id number] Univers 07:00:00 11:45:00 Warren 09062.1.1 ity of 3.412.2.7 [place] .3.403281 MD Lott8 [facility] 2022-05-25 2022-05-25 [facility], 1.2.840.1 [id number] 7279 Univers 07:00:00 11:45:00 Warren 86033.1.1 ity of 3.412.2.7 [place] .3.147791 MD Mccurdy [facility] 2022-05-25 2022-05-25 Anesthesia Evelyn Mclean 1.2.840.1 [id number] Univers 07:12:00 10:25:00 Event Phyllis Bobby 33325.1.1 ity of 3.412.2.7 [place] .3.039170 MD Mccurdy [facility] 2022-05-25 2022-05-25 Anesthesia Evelyn Mclean 1.2.840.1 [id number] [id number] Univers 07:12:00 10:25:00 Event Phyllis Bobby 71603.1.1 ity of 3.412.2.7 [place] .3.573155 MD Mccurdy [facility] 2022-05-25 2022-05-25 Travel 1.2.840.1 1.2.890.466 8001 [id number] Univers 00:00:00 00:00:00 42893.1.1 350.1.13.41 ity of 3.412.2.7 2.2.7.3.698 [place] .3.347533 084.8 MD Mccurdy [facility] 2022-05-25 2022-05-25 Travel 1.2.840.1 1.2.643.494 6492 [id number] Univers 00:00:00 00:00:00 34914.1.1 350.1.13.41 ity of 3.412.2.7 [place]7.3.698 [place] .3.062657 084.8 MD Mccurdy [facility] 2022-05-24 2022-05-24 Josephine Bhagat 1.2.840.1 [id number] Univers 09:00:00 09:28:38 Candy Delcid 81021.1.1 ity of 3.412.2.7 [place] .3.239973 MD Mccurdy [facility] 2022-05-24 2022-05-24 Nutrition Josephine Cummins 1.2.840.1 [id number] Univers 09:00:00 09:28:38 Candy Delcid 88335.1.1 ity of 3.412.2.7 [place] .3.465300 MD Mccurdy [facility] 2022-05-24 2022-05-24 Milka Walls 1.2.840.1 [id number] Univers 01:01:16 01:01:16 Event Galo 42670.1.1 ity of 3.412.2.7 [place] .3.571890 MD Mccurdy [facility] 2022-05-24 2022-05-24 Anesthesia Kavita, 1.2.840.1 [id number] Univers 01:01:16 01:01:16 Event Galo 99666.1.1 ity of 3.412.2.7 [place] .3.755049 MD Mccurdy [facility] 2022-05-24 2022-05-24 Travel 1.2.840.1 1.2.352.315 8083 [id number] [facility] 00:00:00 00:00:00 90407.1.1 350.1.13.41 ity of 3.412.2.7 2.[place]7.3.698 [place] .3.254022 084.8 MD Lott8 [facility] 2022-05-24 2022-05-24 Travel 1.2.840.1 1.2.664.719 2728 [id number] [facility] 00:00:00 00:00:00 30751.1.1 350.1.13.41 ity of 3.412.2.7 [place]7.3.698 [place] .3.279841 084.8 MD Mccurdy [facility] 2022-05-23 2022-05-23 HAZEL Jacobo, 1.2.840.1 [id number] Univers 13:30:00 14:00:00 Appointmen Josephine 15124.1.1 ity of ts 3.412.2.7 [place] .3.742053 MD Mccurdy [facility] 2022-05-23 2022-05-23 HAZEL Jacobo, 1.2.840.1 [id number] Univers 13:30:00 14:00:00 Appointmen Josephine 29677.1.1 ity of ts 3.412.2.7 [place] .3.777804 MD Mccurdy [facility] 2022-05-23 2022-05-23 Outpatient KINDRA JACOBO MDA MDA [id number] 09:46:53 09:49:22 JOSEPHINE Ruelas [facility] 2022-05-23 2022-05-23 Clinical Rian, Josephine 1.2.840.1 [id number] Univers 09:30:00 09:45:59 Support Ana Laura Quinn 22999.1.1 ity of 3.412.2.7 [place] .3.681531 MD Mccurdy [facility] 2022-05-23 2022-05-23 Clinical KINDRA Rian Josephine 1.2.840.1 [id number] Univers 09:30:00 09:45:59 Support Ana Laura Quinn 79243.1.1 ity of 3.412.2.7 [place] .3.081862 MD Lott8 [facility] 2022-05-23 2022-05-23 Outpatient MORE BARAKAT [id number] More 00:00:00 00:00:00 LEODAN pollard 2022-05-23 2022-05-23 Travel 1.2.840.1 1.2.565.558 5959 [id number] [facility] 00:00:00 00:00:00 19061.1.1 350.1.13.41 ity of 3.412.2.7 [place]7.3.698 [place] .3.732163 084.8 MD Mccurdy [facility] 2022-05-23 2022-05-23 Travel 1.2.840.1 1.2.701.971 9478 [id number] [facility] 00:00:00 00:00:00 46156.1.1 350.1.13.41 ity of 3.412.2.7 2.[place].7.3.698 [place] .3.111010 084.8 MD Mccurdy [facility] 2022-05-09 2022-05-09 Hospital Tanesha, 1.2.840.1 [id number] Univers 08:49:54 23:59:00 Encounter Sofy Brizuela 19515.1.1 ity of 3.412.2.7 [place] .3.030099 MD Mccurdy [facility] 2022-05-09 2022-05-09 [facility] KINDRA Tanesha, 1.2.840.1 [id number] Univers 08:49:54 23:59:00 Encounter Sofy Brizuela 60681.1.1 ity of 3.412.2.7 [place] .3.189295 MD Lott8 [facility] 2022-05-09 2022-05-09 Follow-Up Moncho 1.2.840.1 [id number] [id number] Univers 10:40:00 12:08:56 Xander, 77088.1.1 ity of Dai 3.412.2.7 [place] .3.951011 MD Lott8 [facility] 2022-05-09 2022-05-09 Follow-Up EL Thereselove 1.2.840.1 [id number] [id number] Univers 10:40:00 12:08:56 Xander, 43133.1.1 ity of Dai 3.412.2.7 [place] .3.851648 MD Lott8 [facility] 2022-05-09 2022-05-09 Follow-Up Satya, 1.2.840.1 [id number] 1099 [id number] Univers 10:20:00 11:15:52 Warren 15260.1.1 ity of 3.412.2.7 [place] .3.914881 MD Lott8 [facility] 2022-05-09 2022-05-09 Follow-Up KINDRA Daryadarion, 1.2.840.1 [id number] 1099 [id number] Univers 10:20:00 11:15:52 Warren 14762.1.1 ity of 3.412.2.7 [place] .3.666195 MD Mccurdy [facility] 2022-05-09 2022-05-09 Prep for Rian, 1.2.840.1 [id number] Univers 00:00:00 00:00:00 Surgery Josephine 43343.1.1 ity of 3.412.2.7 [place] .3.891782 MD Mccurdy [facility] 2022-05-09 2022-05-09 Travel 1.2.840.1 1.2.928.119 7336 [id number] Univers 00:00:00 00:00:00 45859.1.1 350.1.13.41 ity of 3.412.2.7 [place].3.698 [place] .3.3823[place] 084.8 MD Mccurdy [facility] 2022-05-09 2022-05-09 Prep for Rian, 1.2.840.1 [id number] Univers 00:00:00 00:00:00 Surgery Josephine 40292.1.1 ity of 3.412.2.7 [place] .3.447016 MD Lott8 [facility] 2022-05-09 2022-05-09 Travel 1.2.840.1 1.2.081.629 5045 [id number] Univers 00:00:00 00:00:00 02884.1.1 350.1.13.41 ity of 3.412.2.7 [place].3.698 [place] .3.587035 084.8 MD Mccurdy [facility] 2022-05-08 2022-05-08 Outpatient MORE BARAKAT [id number] More 00:00:00 00:00:00 LEODAN pollard 2022-05-03 2022-05-03 Outpatient MORE BARAKAT [id number] More 13:00:00 13:00:00 LEODAN pollard 2022-04-24 2022-04-24 Outpatient MORE BARAKAT [id number] More 00:00:00 00:00:00 LEODAN pollard 2022-04-17 2022-04-17 Infusion Vailati 1.2.840.1 [id number] Univers 10:15:00 13:26:57 Negjan, 86795.1.1 ity of Dai 3.412.2.7 [place] .3.008363 MD Mccurdy [facility] 2022-04-17 2022-04-17 Infusion EL Vailati 1.2.840.1 [id number] Univers 10:15:00 13:26:57 Negrao, 21440.1.1 ity of Dai 3.412.2.7 [place] .3.548736 MD Lott8 [facility] 2022-04-17 2022-04-17 Telemedici Thereseti 1.2.840.1 [id number] Univers 09:00:00 09:06:32 ne Xander, 22155.1.1 ity of Dai 3.412.2.7 [place] .3.563346 MD Lott8 [facility] 2022-04-17 2022-04-17 Telemedici EL Moncho 1.2.840.1 [id number] Univers 09:00:00 09:06:32 ne Xander, 09719.1.1 ity of Dai 3.412.2.7 [place] .3.989918 MD Lott8 [facility] 2022-04-17 2022-04-17 Outpatient EL TANESHA, [facility] MDA [id number] 08:08:21 08:09:28 SOFYFARHANA Novak [facility] n 2022-04-17 2022-04-17 Orders Binisabel, 1.2.840.1 [id number] Univers 00:00:00 00:00:00 Only Elvia Vaughn 78542.1.1 ity of 3.412.2.7 [place] .3.339602 MD Mccurdy [facility] 2022-04-17 2022-04-17 Travel 1.2.840.1 1.2.625.207 6483 [id number] Univers 00:00:00 00:00:00 67372.1.1 350.1.13.41 ity of 3.412.2.7 [place]7.3.698 [place] .3.253797 084.8 MD Lott8 [facility] 2022-04-17 2022-04-17 Orders Shara, 1.2.840.1 [id number] Univers 00:00:00 00:00:00 Only Elvia Vaughn 61877.1.1 ity of 3.412.2.7 [place] .3.990000 MD Mccurdy [facility] 2022-04-17 2022-04-17 Travel 1.2.840.1 1.2.978.355 8115 [id number] Univers 00:00:00 00:00:00 40015.1.1 350.1.13.41 ity of 3.412.2.7 [place]7.3.698 [place] .3.503686 084.8 MD Mccurdy [facility] 2022-04-11 2022-04-11 Orders Tanesha, 1.2.840.1 [id number] Univers 00:00:00 00:00:00 Only Sofy Brizuela 39473.1.1 ity of 3.412.2.7 [place] .3.242329 MD Mccurdy [facility] 2022-04-11 2022-04-11 Orders Tanesha, 1.2.840.1 [id number] Univers 00:00:00 00:00:00 Only Sofy Brizuela 52076.1.1 ity of 3.412.2.7 [place] .3.491629 MD Mccurdy [facility] 2022-04-10 2022-04-10 Hospital KINDRA Ivan 1.2.840.1 [id number] [id number] Univers 10:30:00 23:59:00 Encounter Xander 19749.1.1 it y of Dai 3.412.2.7 [place] .3.680001 MD Mccurdy [facility] 2022-04-10 2022-04-10 Office EL Tanesha, 1.2.840.1 [id number] Univers 11:30:00 12:17:57 Visit Sofy Brizuela 23474.1.1 ity of 3.412.2.7 [place] .3.352089 MD Mccurdy [facility] 2022-04-10 2022-04-10 Evin Anglin 1.2.840.1 [id number] Univers 00:00:00 00:00:00 Cyndy Newberry 77580.1.1 i ty of 3.412.2.7 [place] .3.568479 MD Mccurdy [facility] 2022-04-10 2022-04-10 Travel 1.2.840.1 1.2.857.577 6548 [id number] Univers 00:00:00 00:00:00 68200.1.1 350.1.13.41 ity of 3.412.2.7 [place].7.3.698 [place] .3.552947 084.8 MD Lott8 [facility] 2022-04-07 2022-04-07 Ancillary KINDRA Elmore, 1.2.840.1 [id number] Univers 09:05:00 10:30:00 Procedure Yu Brizuela 35373.1.1 it y of 3.412.2.7 [place] .3.176126 MD Mccurdy [facility] 2022-04-07 2022-04-07 Travel 1.2.840.1 1.2.125.392 9320 [id number] Univers 00:00:00 00:00:00 80167.1.1 350.1.13.41 ity of 3.412.2.7 [place].7.3.698 [place] .3.180663 084.8 MD Mccurdy [facility] 2022-03-27 2022-03-27 [facility] AlexKris Cm 1.2.840. 1 [id number] Univers 09:00:00 09:30:00 Keaton Benitez 43967.1.1 ity of 3.412.2.7 [place] .3.162537 MD Mccurdy [facility] 2022-03-27 2022-03-27 Piedad Rodriguez 1.2.840.1 [id number] 3680 Univers 00:00:00 00:00:00 Only Keaton 64433.1.1 ity of 3.412.2.7 [place] .3.092295 MD Mccurdy [facility] 2022-03-20 2022-03-20 [facility] KINDRA Giraldo, 1.2.840.1 [id number] Univers 09:10:18 23:59:00 Encounter Tammy 18541.1.1 it y of 3.412.2.7 [place] .3.574688 MD Lott8 [facility] 2022-03-20 2022-03-20 Infusion [facility] Xander Dai 1.2.840.1 [id number] Univers 12:00:00 16:47:49 Matilda Condon 84970.1.1 ity of 3.412.2.7 [place] .3.261452 MD Mccurdy [facility] Surveyor 2022-03-20 2022-03-20 Consult KINDRA Mota 1.2.840.1 [id number] Univers 11:00:00 11:15:27 Kaylie 52138.1.1 ity of 3.412.2.7 [place] .3.173556 MD Mccurdy [facility] Surveyor 2022-03-20 2022-03-20 [facility] 1.2.840.1 [id number] [id number] Univers 06:50:00 09:09:00 Encounter Xander 20344.1.1 it y of Dai 3.412.2.7 [place] .3.843525 MD Mccurdy [facility] 2022-03-20 2022-03-20 Office [facility] 1.2.840.1 [id number] 1457 Univers 08:20:00 08:49:46 Visit Xander 90861.1.1 ity of Dai 3.412.2.7 [place] .3.597105 MD Mccurdy [facility] Cancer Surveyor 2022-03-20 2022-03-20 Piedad Young 1.2.840.1 [id number] Univers 00:00:00 00:00:00 Only Meredith 84178.1.1 ity of 3.412.2.7 [place] .3.639275 MD Mccurdy [facility] 2022-03-20 2022-03-20 Travel 1.2.840.1 1.2.884.288 2607 [id number] Univers 00:00:00 00:00:00 31975.1.1 350.1.13.41 ity of 3.412.2.7 2.[place].7.3.698 [place] .3.323748 084.8 MD Mccurdy [facility] 2022-03-09 2022-03-09 Outpatient MORE BARAKAT [id number] More 00:00:00 00:00:00 LEODAN pollard 2022-03-09 2022-03-09 Documentat John, 1.2.840.1 [id number] Univers 00:00:00 00:00:00 ion Franky 05978.1.1 ity of 3.412.2.7 [place] .3.218876 MD Lott8 [facility] 2022-03-09 2022-03-09 Telephone Tanesha, 1.2.840.1 [id number] [id number] Univers 00:00:00 00:00:00 Sofy Brizuela 52147.1.1 ity of 3.412.2.7 [place] .3.024355 MD Lott8 [facility] 2022-02-28 2022-02-28 Piedad Giraldo 1.2.840.1 [id number] [id number] Univers 00:00:00 00:00:00 Only Tammy 07507.1.1 ity of 3.412.2.7 [place] .3.868956 MD Mccurdy [facility] 2022-02-27 2022-02-27 [facility] 1.2.840.1 [id number] Univers 06:45:00 23:59:00 Bobby Philip 42835.1.1 it y of Dai 3.412.2.7 [place] .3.607951 MD Lott8 [facility] 2022-02-27 2022-02-27 [facility] Dai Philip 1.2.840.1 [id number] Univers 11:00:00 17:49:00 Makasiar, Glendel O 99157.1.1 ity of 3.412.2.7 [place] .3.919488 MD Mccurdy [facility] 2022-02-27 2022-02-27 Office KINDRA Ivan 1.2.840.1 [id number] Univers 09:40:00 10:33:36 Visit Xander, 79788.1.1 ity of Dai 3.412.2.7 [place] .3.136084 MD Lott8 [facility] 2022-02-27 2022-02-27 Travel 1.2.840.1 1.2.575.246 4800 [id number] Univers 00:00:00 00:00:00 13576.1.1 350.1.13.41 ity of 3.412.2.7 2.2.7.3.698 [place] .3.730007 084.8 MD Mccurdy [facility] 2022-02-23 2022-02-23 Telephone Tanesha, 1.2.840.1 [id number] [id number] Univers 00:00:00 00:00:00 Sofy Brizuela 81375.1.1 ity of 3.412.2.7 [place] .3.399583 MD Mccurdy [facility] 2022-02-23 2022-02-23 Orders Tanesha, 1.2.840.1 [id number] Univers 00:00:00 00:00:00 Only Sofy Brizuela 24718.1.1 ity of 3.412.2.7 [place] .3.563068 MD Mccurdy [facility] 2022-02-23 2022-02-23 Orders Hollingsworth, 1.2.840.1 [id number] 0204 Univers 00:00:00 00:00:00 Only Tra 56633.1.1 ity of 3.412.2.7 [place] .3.385940 MD Mccurdy [facility] 2022-02-23 2022-02-23 Orders Tanesha, 1.2.840.1 [id number] Univers 00:00:00 00:00:00 Only Sofy Brizuela 71180.1.1 ity of 3.412.2.7 [place] .3.629085 MD Lott8 [facility] 2022-02-22 2022-02-22 Outpatient MORE HOLLOWAY [id number] More 10:00:00 10:00:00 BRINA pollard 2022-02-17 2022-02-17 Orders Juan Pablo, 1.2.840.1 [id number] Univers 00:00:00 00:00:00 Only Ambreen Newberry 57744.1.1 ity of 3.412.2.7 [place] .3.671771 MD Lott8 [facility] 2022-02-17 2022-02-17 Orders John 1.2.840.1 [id number] Univers 00:00:00 00:00:00 Only Franky 03873.1.1 ity of 3.412.2.7 [place] .3.011408 MD Lott8 [facility] 2022-02-16 2022-02-16 Outpatient [facility] MDA MDA [id number] 09:54:10 09:54:10 Darryl PHILIP 2022-02-15 2022-02-15 Orders Pako, 1.2.840.1 [id number] Univers 00:00:00 00:00:00 Only Cyndy Flores 16666.1.1 i ty of 3.412.2.7 [place] .3.276958 MD Lott8 [facility] 2022-02-13 2022-02-13 Outpatient [facility] MDA MDA [id number] 10:35:04 10:35:04 Darryl PHILIP 2022-02-13 2022-02-13 Telephone Balaji 1.2.840.1 [id number] Univers 00:00:00 00:00:00 Indira Wiseman 06160.1.1 it y of 3.412.2.7 [place] .3.228077 MD Lott8 [facility] 2022-02-11 2022-02-11 Clinical Muriel Sparks 1.2.840.1 [id number] Univers 15:30:00 15:45:00 Support Mariama Baez 21421.1.1 ity of 3.412.2.7 [place] .3.786245 MD Mccurdy [facility] 2022-02-11 2022-02-11 Travel 1.2.840.1 1.2.945.728 5454 [id number] Univers 00:00:00 00:00:00 27152.1.1 350.1.13.41 ity of 3.412.2.7 [place].7.3.698 [place] .3.989840 08Rick Mccurdy [facility] 2022-02-08 2022-02-08 Orders Tanesha, 1.2.840.1 [id number] Univers 00:00:00 00:00:00 Only Sofy Brizuela 07268.1.1 ity of 3.412.2.7 [place] .3.648042 MD Mccurdy [facility] 2022-02-07 2022-02-07 Ancillary KINDRA Ivan 1.2.840.1 [id number] [id number] Univers 13:00:00 15:30:00 Procedure Xander, 84434.1.1 it y of Dai 3.412.2.7 [place] .3.100575 MD Mccurdy [facility] 2022-02-07 2022-02-07 Travel 1.2.840.1 1.2.351.249 3172 [id number] Univers 00:00:00 00:00:00 64301.1.1 350.1.13.41 ity of 3.412.2.7 2.2.7.3.698 [place] .3.683591 08Jadiel8 MD Mccurdy [facility] 2022-02-07 2022-02-07 Orders Rad, 1.2.840.1 [id number] 8034 Univers 00:00:00 00:00:00 Only Muriel 38815.1.1 ity of 3.412.2.7 [place] .3.239111 MD Lott8 [facility] 2022-02-04 2022-02-04 [facility] 1.2.840.1 [id number] [id number] Univers 09:15:00 11:00:00 Procedure Negjan, 67715.1.1 it y of Dai 3.412.2.7 [place] .3.685764 MD Lott8 [facility] 2022-02-04 2022-02-04 Travel 1.2.840.1 1.2.252.103 8838 [id number] Univers 00:00:00 00:00:00 81491.1.1 350.1.13.41 ity of 3.412.2.7 2.2.7.3.698 [place] .3.535608 084.8 MD Lott8 [facility] 2022-02-03 2022-02-03 [facility] 1.2.840.1 [id number] Univers 13:00:00 23:59:00 Encounter Negrao, 30263.1.1 it y of Dai 3.412.2.7 [place] .3.737815 MD Lott8 [facility] 2022-02-03 2022-02-03 [facility] 1.2.840.1 [id number] Univers 12:29:29 12:59:00 Encounter Negjan, 23306.1.1 it y of Dai 3.412.2.7 [place] .3.621279 MD Lott8 [facility] 2022-02-03 2022-02-03 [facility] 1.2.840.1 [id number] Univers 12:00:16 12:28:00 Encounter Negrao, 78743.1.1 it y of Dai 3.412.2.7 [place] .3.601390 MD Mccurdy [facility] 2022-02-03 2022-02-03 Orders John, 1.2.840.1 [id number] Univers 00:00:00 00:00:00 Only Franky 12698.1.1 ity of 3.412.2.7 [place] .3.820380 MD Mccurdy [facility] 2022-02-03 2022-02-03 Orders Leroy, 1.2.840.1 [id number] 7675 Univers 00:00:00 00:00:00 Only Muriel 56193.1.1 ity of 3.412.2.7 [place] .3.813885 MD Mccurdy [facility] 2022-02-03 2022-02-03 Orders John, 1.2.840.1 [id number] Univers 00:00:00 00:00:00 Only Franky 63113.1.1 ity of 3.412.2.7 [place] .3.755971 MD Mccurdy [facility] 2022-02-03 2022-02-03 Travel 1.2.840.1 1.2.769.212 2884 [id number] Univers 00:00:00 00:00:00 91746.1.1 350.1.13.41 ity of 3.412.2.7 2.2.7.3.698 [place] .3.481342 084.8 MD Mccurdy [facility] 2022-02-02 2022-02-02 Outpatient [facility] [id number] MD 14:28:00 14:28:00 Darryl PHILIP 2022-02-01 2022-02-01 Orders John, 1.2.840.1 [id number] Univers 00:00:00 00:00:00 Only Franky 22425.1.1 ity of 3.412.2.7 [place] .3.453852 MD Mccurdy [facility] 2022-02-01 2022-02-01 Orders John, 1.2.840.1 [id number] Univers 00:00:00 00:00:00 Only Franky 09425.1.1 ity of 3.412.2.7 [place] .3.866224 MD .8 [facility] 2022-01-31 2022-01-31 Orders Lugo, 1.2.840.1 [id number] Univers 00:00:00 00:00:00 Only Giorgi 64031.1.1 ity of Van 3.412.2.7 [place] .3.361839 MD Mccurdy [facility] 2022-01-31 2022-01-31 Orders John, 1.2.840.1 [id number] Univers 00:00:00 00:00:00 Only Franky 31056.1.1 ity of 3.412.2.7 [place] .3.582796 MD Mccurdy [facility] 2022-01-31 2022-01-31 Orders Tanesha, 1.2.840.1 [id number] Univers 00:00:00 00:00:00 Only Sofy E 46428.1.1 ity of 3.412.2.7 [place] .3.783672 MD Mccurdy [facility] 2022-01-26 2022-01-26 Orders Serrao, 1.2.840.1 [id number] 1512 Univers 00:00:00 00:00:00 Only Gabsimonella 86325.1.1 it y of 3.412.2.7 [place] .3.630758 MD Mccurdy [facility] 2022-01-24 2022-01-24 Office EL Moncho 1.2.840.1 [id number] Univers 10:20:00 12:33:32 Visit Negjan, 79867.1.1 ity of Dai 3.412.2.7 [place] .3.604134 MD Mccurdy [facility] 2022-01-24 2022-01-24 Orders Jesuanto, 1.2.840.1 [id number] [id number] Univers 00:00:00 00:00:00 Only Sana Liu 77069.1.1 ity of 3.412.2.7 [place] .3.681210 MD Mccurdy [facility] 2022-01-242022-01-24 Travel 1.2.840.1 1.2.850.329 1589 [id number] Univers 00:00:00 00:00:00 35514.1.1 350.1.13.41 ity of 3.412.2.7 2.2.7.3.698 [place] .3.677611 084.8 .8 [facility] 2022-01-22 2022-01-22 Orders Vailati 1.2.840.1 [id number] Univers 00:00:00 00:00:00 Only Xander 95652.1.1 ity of Dai 3.412.2.7 [place] .3.912613 MD Lott8 [facility] 2022-01-19 2022-01-19 Orders Tanesha, 1.2.840.1 [id number] 3713 Univers 00:00:00 00:00:00 Only Sofy Brizuela 35449.1.1 ity of 3.412.2.7 [place] .3.060395 MD Lott8 [facility] 2022-01-18 2022-01-18 Outpatient EL VAILATI MDA MDA [id number] 19:05:08 19:05:08 Darryl PHILIP 2022-01-13 2022-01-13 Telephone Nubia 1.2.840.1 [id number] Univers 00:00:00 00:00:00 Dany Newberry 50254.1.1 ity of 3.412.2.7 [place] .3.712076 MD Lott8 [facility] 2022-01-11 2022-01-11 Outpatient EL VAILATI MDA MDA [id number] 18:08:28 18:08:28 Darryl PHILIP 2022-01-09 2022-01-09 Telemedici Vailati 1.2.840.1 [id number] [facility] 11:20:00 11:40:00 leidy Philip 48925.1.1 ity of Dai 3.412.2.7 [place] .3.496653 MD Mccurdy [facility] 2022-01-09 2022-01-09 Orders Brandyn, 1.2.840.1 [id number] Univers 00:00:00 00:00:00 Only Susie 09492.1.1 ity of 3.412.2.7 [place] .3.249283 MD Lott8 [facility] 2022-01-05 2022-01-05 Outpatient KINDRA TONY MDA [facility] [id number] 10:31:22 10:31:22 ISMAELJCARLOS Hawkinsmary wiseman 2022-01-05 2022-01-05 Telephone Tanesha, 1.2.840.1 [id number] Univers 00:00:00 00:00:00 Sofy Brizuela 83217.1.1 ity of 3.412.2.7 [place] .3.973391 MD Mccurdy [facility] 2022-01-04 2022-01-04 Ancillary KINDRA Almendarez, 1.2.840.1 [id number] [id number] Univers 14:20:00 15:45:00 Procedure Sofy Brizuela 62879.1.1 ity of 3.412.2.7 [place] .3.691153 MD Mccurdy [facility] 2022-01-04 2022-01-04 Travel 1.2.840.1 1.2.220.146 1256 [id number] Univers 00:00:00 00:00:00 00658.1.1 350.1.13.41 ity of 3.412.2.7 2.2.7.3.698 [place] .3.608660 084.8 MD Mccurdy [facility] 2022-01-03 2022-01-03 [facility] Wade Bojorquez 1.2.840 .1 [id number] Univers 10:20:00 23:59:00 Encounter Sofy Almendarez 72226.1.1 ity of 3.412.2.7 [place] .3.369853 MD Mccurdy [facility] 2022-01-03 2022-01-03 Ancillary KINDRA Almendarez, 1.2.840.1 [id number] Univers 09:15:00 11:00:00 Procedure Sofy Brizuela 76863.1.1 ity of 3.412.2.7 [place] .3.911729 MD Mccurdy [facility] 2022-01-03 2022-01-03 Orders Ramses 1.2.840.1 [id number] Univers 00:00:00 00:00:00 Only Holley marroquin 56952.1.1 ity of 3.412.2.7 [place] .3.140323 MD Mccurdy [facility] 2022-01-03 2022-01-03 Orders Tanesha, 1.2.840.1 [id number] Univers 00:00:00 00:00:00 Only Sofy Brizuela 31861.1.1 ity of 3.412.2.7 [place] .3.435594 MD Mccurdy [facility] 2022-01-03 2022-01-03 Travel 1.2.840.1 1.2.669.050 9668 [id number] Univers 00:00:00 00:00:00 70923.1.1 350.1.13.41 ity of 3.412.2.7 2.2.7.3.698 [place] .3.553666 084.8 MD Mccurdy [facility] 2021-12-28 2021-12-28 Outpatient KINDRA ABERNATHY MDA [facility] [id number] 19:32:18 19:32:18 JOSE wiseman 2021-12-27 2021-12-27 Hospital KINDRA Almendarez, 1.2.840.1 [id number] [facility] 12:12:06 23:59:00 Encounter Sofy Brizuela 34206.1.1 ity of 3.412.2.7 [place] .3.142451 MD Mccurdy [facility] 2021-12-27 2021-12-27 Consult KINDRA Ivan 1.2.840.1 [id number] [facility] 10:40:00 11:51:41 Negrao, 67828.1.1 ity of Dai 3.412.2.7 [place] .3.778834 MD Lott8 [facility] 2021-12-27 2021-12-27 Consult KINDRA Hernadez, 1.2.840.1 [id number] 3826 [facility] 10:00:00 11:19:12 Warren 97308.1.1 ity of 3.412.2.7 [place] .3.909127 MD Lott8 [facility] 2021-12-27 2021-12-27 Orders Sukh-Anderson 1.2.840.1 [id number] Univers 00:00:00 00:00:00 Only Holley marroquin 47017.1.1 ity of 3.412.2.7 [place] .3.651769 MD Lott8 [facility] 2021-12-27 2021-12-27 Travel 1.2.840.1 1.2.454.579 6608 [id number] [facility] 00:00:00 00:00:00 39835.1.1 350.1.13.41 ity of 3.412.2.7 2.2.7.3.698 [place] .3.892814 084.8 MD Lott8 [facility] 2021-12-23 2021-12-23 Telephone Ca, 1.2.840.1 [id number] [facility] 00:00:00 00:00:00 Pedro Garcia 07763.1.1 it y of 3.412.2.7 [place] .3.406474 MD Lott8 [facility] 2021-12-21 2021-12-21 Outpatient KINDRA ABERNATHY, LEONA DELGADILLO [id number] 17:49:34 17:49:34 JOSE wiseman 2021-12-21 2021-12-21 Hospital KINDRA Mota, 1.2.840.1 [id number] [facility] 10:29:00 14:27:00 Encounter Kaylie 30328.1.1 it y of 3.412.2.7 [place] .3.269800 MD Lott8 [facility] 2021-12-21 2021-12-21 Anesthesia Magdaleno, 1.2.840.1 [id number] [facility] 12:21:00 13:31:00 Event Crystal 36851.1.1 ity of 3.412.2.7 [place] .3.408720 MD Mccurdy [facility] 2021-12-21 2021-12-21 Surgery Nakul, 1.2.840.1 [id number] [facility] 12:00:00 13:30:00 Kaylie 32647.1.1 ity of 3.412.2.7 [place] .3.848827 MD Lott8 [facility] 2021-12-21 2021-12-21 Orders Ca, 1.2.840.1 [id number] [facility] 00:00:00 00:00:00 Only Pedro Isam 68745.1.1 it y of 3.412.2.7 [place] .3.147414 MD Mccurdy [facility] 2021-12-21 2021-12-21 Travel 1.2.840.1 1.2.093.529 [id number] [facility] 00:00:00 00:00:00 00606.1.1 350.1.13.41 ity of 3.412.2.[place]3.698 [place] .3.8214[place] 084.8 MD Mccurdy [facility] 2021-12-20 2021-12-20 Anesthesia Reed, 1.2.840.1 [id number] [facility] 23:59:59 23:59:59 Event Jennie M 78687.1.1 ity of 3.412.2.7 [place] .3.075065 MD Mccurdy [facility] 2021-12-20 2021-12-20 Consult EL Nakul, 1.2.840.1 [id number] [facility] 15:00:00 15:27:35 Kaylie 91116.1.1 ity of 3.412.2.7 [place] .3.768146 MD Mccurdy [facility] 2021-12-20 2021-12-20 Clinical EL Tammy Giraldo 1.2.840.1 [id number] [facility] 14:15:00 14:15:00 Support Yu Hawk 62074.1.1 ity of 3.412.2.7 [place] .3.412672 MD Lott8 [facility] 2021-12-20 2021-12-20 POEM KINDRA Abernathy, 1.2.840.1 [id number] [facility] 09:30:00 10:00:00 Appointmen Jose Fay 08730.1.1 ity of ts 3.412.2.7 [place] .3.677042 MD Lott8 [facility] 2021-12-20 2021-12-20 Outpatient RADIOLOGY, MORE FLOWERS [id number] More 00:00:00 00:00:00 DEPT Seybol d 2021-12-20 2021-12-20 Travel 1.2.840.1 1.2.731.017 [id number] [facility] 00:00:00 00:00:00 35291.1.1 350.1.13.41 ity of 3.412.2.[place]3.698 [place] .3.820646 084.8 MD Lott8 [facility] 2021-12-14 2021-12-14 Outpatient KINDRA ABERNATHY MDA MDA [id number] 17:26:51 17:26:51 JOSE wiseman 2021-12-14 2021-12-14 Outpatient KINDRA ABERNATHY MDA MDA [id number] 17:26:44 17:26:44 JOSE wiseman 2021-12-12 2021-12-12 Brant Abernathy 1.2.840.1 [id number] [facility] 00:00:00 00:00:00 Jose Fay 23947.1.1 ity of 3.412.2.7 [place] .3.847635 MD Lott8 [facility] 2021-12-09 2021-12-09 Ancillary Jason Buenrostro.2.840.1 [id number] [facility] 11:30:00 11:45:00 Procedure Jose Fay 86477.1.1 i ty of 3.412.2.7 [place] .3.620342 MD Mccurdy [facility] 2021-12-09 2021-12-09 Documentat Shyanne Muñiz 1.2.840.1 [id number] [facility] 00:00:00 00:00:00 ion 86035.1.1 ity of 3.412.2.7 [place] .3.549577 MD Mccurdy [facility] 2021-12-09 2021-12-09 Prep for Enzo, 1.2.840.1 [id number] [facility] 00:00:00 00:00:00 Surgery Tammy 71922.1.1 ity of 3.412.2.7 [place] .3.246754 MD Mccurdy [facility] 2021-12-09 2021-12-09 Travel 1.2.840.1 1.2.372.040 [id number] [facility] 00:00:00 00:00:00 51430.1.1 350.1.13.41 ity of 3.412.2.[place]3.698 [place] .3.913735 084.8 MD Mccurdy [facility] 2021-12-08 2021-12-08 Telephone Josemanuel, 1.2.840.1 [id number] [facility] 00:00:00 00:00:00 Jose Fay 76512.1.1 ity of 3.412.2.7 [place] .3.153344 MD Mccurdy [facility] 2021-12-02 2021-12-02 Hospital 1.2.840.1 [id number] [facility] 11:51:30 23:59:00 Encounter 14688.1.1 it y of 3.412.2.7 [place] .3.968575 MD Mccurdy [facility] 2021-12-02 2021-12-02 [facility] 1.2.840.1 [id number] [facility] 11:40:16 11:50:00 Encounter 05278.1.1 it y of 3.412.2.7 [place] .3.911543 MD Mccurdy [facility] 2021-12-02 [facility]02 [facility] crowell.2.840.1 [id number] Univers 09:36:02 11:39:00 Encounter Liza Jason 15148.1.1 ity of 3.412.2.7 [place] .3.221474 MD Lott8 [facility] 2021-12-02 2021-12-02 Travel 1.2.840.1 1.2.888.120 [id number] Univers 00:00:00 00:00:00 73632.1.1 350.1.13.41 ity of 3.412.2.[place].3.698 [place] .3.617822 084.8 MD Mccurdy [facility] 2021-12-01 2021-12-01 [facility] 1Kaylie2.840.1 [id number] Univers 11:56:09 23:59:00 Encounter Jose Fay 32389.1.1 i ty of 3.412.2.7 [place] .3Kaylie597688 MD Mccurdy [facility] 2021-12-01 2021-12-01 [facility] Marco2.840.1 [id number] Univers 11:55:37 11:55:37 Encounter Jose Fay 88160.1.1 i ty of 3.412.2.7 [place] .3.348695 MD Mccurdy [facility] 2021-12-01 2021-12-01 [facility] crowell.2.840.1 [id number] Univers 09:28:22 11:54:00 Encounter Ella Adame 19024.1.1 ity of 3.412.2.7 [place] .3Kaylie691563 MD Mccurdy [facility] 2021-12-01 2021-12-01 Clinical Ella Adame 1.2.840.1 [id number] Univers 11:00:00 11:06:04 Support Sandy Chowdhury 23886.1.1 ity of 3.412.2.7 [place] .3.330875 MD Mccurdy [facility] 2021-12-01 2021-12-01 Outpatient MORE AHUMADA [id number] More 00:00:00 00:00:00 CLAY pollard 2021-12-01 2021-12-01 Orders Toña, 1.2.840.1 [id number] Univers 00:00:00 00:00:00 Only Olimpia Ferris 62135.1.1 ity of 3.412.2.7 [place] .3.012638 MD Lott8 [facility] 2021-12-01 2021-12-01 Travel 1.2.840.1 1.2.500.656 [id number] Univers 00:00:00 00:00:00 74187.1.1 350.1.13.41 ity of 3.412.2.[place].698 [place]3.7227[place] 084.8 MD Mccurdy [facility] 2021-11-30 2021-11-30 Orders Wendi, 1.2.840.1 [id number] Univers 00:00:00 00:00:00 Only Ella 61508.1.1 ity of 3.412.2.7 [place] .3.421846 MD Mccurdy [facility] 2021-11-29 2021-11-29 [facility] Josemanuel 1.2.840.1 [id number] Univers 17:42:45 23:59:00 Encounter Jose Fay 89656.1.1 i ty of 3.412.2.7 [place] .3.291598 MD Mccurdy [facility] 2021-11-29 2021-11-29 [facility] Josemanuel 1.2.840.1 [id number] Univers 21:50:00 21:55:00 Procedure Jose Fay 32962.1.1 i ty of 3.412.2.7 [place] .3.266512 MD Mccurdy [facility] 2021-11-29 2021-11-29 Office Josemanuel, 1.2.840.1 [id number] [facility] 15:00:00 17:34:37 Visit Jose VaughnKaylie 00223.1.1 ity of 3.412.2.7 [place] .3.994648 MD Lott8 [facility] 2021-11-29 2021-11-29 Travel 1.2.840.1 1.2.456.961 [id number] Univers 00:00:00 00:00:00 47235.1.1 350.1.13.41 ity of 3.412.2.[place].698 [place] .3.709447 084.8 MD cMcurdy [facility] 2021-11-28 2021-11-28 Outpatient MORE FLOWERS [id number] More 15:00:00 15:00:00 Seybol d 2021-11-28 2021-11-28 Outpatient MORE FLOWERS [id number] More 14:00:00 14:00:00 Seybol d 2021-11-25 2021-11-25 NPR 1.2.840.1 [id number] Univers 14:30:00 14:30:00 39612.1.1 ity of 3.412.2.7 [place] .3.278063 MD Mccurdy [facility] 2021-11-23 2021-11-23 Ancillary EL 1.2.840.1 [id number] Univers 02:10:00 02:15:00 Procedure 55478.1.1 it y of 3.412.2.7 [place] .3.357590 MD Lott8 [facility] 2021-11-23 2021-11-23 Ancillary EL 1.2.840.1 [id number] Univers 02:05:00 02:10:00 Procedure 11247.1.1 it y of 3.412.2.7 [place] .3.560620 MD Lott8 [facility] 2021-11-22 2021-11-22 Piedad Noonan, 1.2.840.1 [id number] Univers 00:00:00 00:00:00 Only Latira 80987.1.1 ity of 3.412.2.7 [place] .3.525963 .8 [facility] 2021-11-17 2021-11-17 Travel 1.2.840.1 1.2.102.890 [id number] Univers 00:00:00 00:00:00 29287.1.1 350.1.13.41 ity of 3.412.2.[place].698 [place]3.332997 084.8 .8 [facility] 2021-11-17 2021-11-17 Telephone Valentin, 1.2.840.1 [id number] Univers 00:00:00 00:00:00 Celaysheia 54893.1.1 i ty of S 3.412.2.7 [place] .3.766277 .8 [facility] 2021-11-16 2021-11-16 Outpatient MORE FLOWERS [id number] More 10:45:00 10:45:00 Seybol d 2021-11-16 2021-11-16 Outpatient LAB39 MORE FLOWERS [id number] More 10:15:00 10:15:00 Seybol d 2021-11-16 2021-11-16 Office WILDER Holloway 1.2.840.114 [id number] More 09:30:00 10:00:00 Visit [facility] 350.1.13.13 Se ybold 1.2.7.2.686 [id number] 2021-11-16 2021-11-16 Outpatient MORE AHUMADA [id number] More 00:00:00 00:00:00 CLAY Seybol d 2021-10-28 2021-10-28 Outpatient MORE BAUMANN [id number] More 10:00:00 10:00:00 FATUMA Seybol d 2021-10-28 2021-10-28 Outpatient MORE FLOWERS [id number] More 09:00:00 09:00:00 Seybol d 2021-10-28 2021-10-28 Outpatient MORE BARAKAT [id number] More 00:00:00 00:00:00 LEODAN Seybol d 2021-10-17 2021-10-17 Outpatient MORE FLOWERS [id number] More 10:00:00 10:00:00 Seybol d 2021 2021 Office KEENA AHUMADA 1.2.840.114 [id number] More 10:30:00 10:30:00 Visit CLAY 350.1.13.13 Se ybold 1.2.7.2.686 [id number] 0 2021-09-27 2021-09-27 Outpatient MORE FLOWERS [id number] More 15:00:00 15:00:00 Seybol d 2021-09-19 2021-09-19 Outpatient MORE BARAKAT [id number] More 00:00:00 00:00:00 LEODAN Seybol d 2021-09-14 2021-09-14 Outpatient LAB90 MORE FLOWERS [id number] More 11:50:00 11:50:00 Seybol d 2021-09-14 2021-09-14 Office Odin BARAKAT 1.2.840.114 [id number] More 10:30:00 10:30:00 Visit LEODAN Gary 350.1.13.13 Se ybold 1.2.7.2.686 [id number] 0 2021-07-13 2021-07-13 Outpatient MORE BARAKAT [id number] More 11:00:00 11:00:00 LEODAN Seybol d 2021-07-12 2021-07-12 Outpatient MORE BOWER [id number] [place] 00:00:00 00:00:00 SAMMIE Gallowayol rufus Results Test Description Test Time Test Comments Results Result Comments Source Research Protocol [id number] 2022-09-12 20:28:20 Test Item Value Reference Range Interpretation Comme nts Research Prot (test code = 7189) 462555 RHIANNA (test code = RHIANNA) [facility] with [facility] lab[facility] scheduled[facility] [id number] 2022-09-12 20:28:20 Test Item Value Reference Range Interpretation Comments Research Prot (test 843750 code = 7189) RHIANNA (test code = RHIANNA) Link with existing labwork already scheduled. [facility] [id number] 2022-09-12 20:28:20 Test Item Value Reference Range Interpretation Comments Research Prot (test 609989 code = 7189) RHIANNA (test code = RHIANNA) Link with existing labwork already scheduled. [facility] [id number] 2022-09-12 20:28:20 Test Item Value Reference Range Interpretation Comments Research Prot (test 638050 code = 7189) RHIANNA (test code = RHIANNA) Link with existing labwork already scheduled. [facility] Lake[facility] Oaahdck0420-23-97 15:05:33 Test Item Value Reference Range Interpretation Comments Total Protein (test code = 2885-2) 6.8 g/dL 6.4-8.3 [facility]2023-[facility]28 15:05:32 Test Item Value Reference Range Interpretation Comments ALT (test code = 1742-6) 14 U/L <=33 [facility] LakeFractionated Yotbxhssw7948-48-06 15:05:31Bili Total<0.3<=1.2 mg/dLUT [facility] LakeAlkaline Hvjjdmlkuke1946-06-64 15:05:30 Test Item Value Reference Range Interpretation Comments Alk Phos (test code = 6768-6) 124 U/L 35-104 H Lab Interpretation (test code = Abnormal 63775-3) [facility] Lake[facility]in Kgrvg0407-24-44 15:05:29 Test Item Value Reference Range Interpretation Comments Albumin Lvl (test code 4.4 See_Comment [Aut omated message] The = 1751-7) system which ge nerated this result tra nsmitted reference range : 3.5 - 5.2 gm/dL. The refe rence range was not used to interpret this result as normal/abnormal . [facility] Lake[facility]artate Aminotransferase 2022-09-12 15:05:28 Test Item Value Reference Range Interpretation Comments AST (test code = 1920-8) 18 U/L <=32 [facility] Cancer SurveyorPathology Surgical Interpretation 2022-05-29 20:55:42 Test Item Value Reference Range Interpretation Comments Submitted Clinical n2pypXUgUCEdt5tpFIJqmNWq History (test code = ZzEwMzNcZnRuYmpcdWMxIHtc 46590) bpXcKLeae2TjO1EzKdGrXMbn bnNpXGRlZmxhbmcxMDMzXGZ0 glZiEXLbZDugYSWyWXuvDb4c pHBvvShfOvKyGWHni9qtmvOM dbxexHh3c6wyPGDzUhT5jJDd PMmsC3wydnIuwGAnQJJdRTf9 vP80CXPrpV0tbCLiQJzyovOr RmD6DBzeHAAcUbU6LUBxvNVt CQTgL8ieMYTxTOvgMZCfBUgh yRZtGEQ1pLfpl0F5iVXkzFJi fPphVkRiPkGxMyEZu8UeGIa4 gJilI4UkIUNzLoO9hLOeVDPk JKtxUTTtNSElbjT4vD40GQfh snM1oWQdy1Zov10yi563bU5e uCKfHZQ4SPYjGBDzxPCsSWCh IPM3UIGhmUJuS9fuHJAmBQ9o cwraQIprQDmqKMCqaSI0XGUc mVBaN5DjJSWlMIkoJCXienf8 LkCqIn0vaKAyhQroBPktq1ki c1adjUDmQoh9VNYpHqBhYgiv LLtjg1Ctv0npYFCgea0mUBV7 xWKoxZrae4L8fJQbPHKfyCGg oiGeJAScHtX2XYoaVB7ehy47 STUfWUB7vj8znRZyyAacvzBa aRKtMSjhK3XzKOZst304ZEGp E8MgIGNwz6E5sjCjYnHzRUZp qTS6edT5VJFcPWt9fODvbrM4 haFdjNYmO8zdzH7cSDMaAX8g boeid8xtVUmiEOrbJDGbaKK8 adS0OPSiaAHuX7QytD2mGMZl FSqcTSQbwtf1YoOxTn4hqHAk eTcyMFxzYmtwYWdlXHBnbmNv bnRccGduZGVjXHBsYWluXHBs YWluXGYwXGZzMjRccWxccGxh fQ6bRgNqXqNrXEocKM5jOVPz M0yotXYzZKOpOKNcH8saOaNe bR4jrXbiEMnvhlOeMWIeXW6z I2HfB8tqk15nPPJXK6Vrq5Kg vVJtNBZdkK3uEExpgTEoDdJ2 UGGbwV7kJ7IeIA4bKa7ogHtp sC1sOmXpOhIaJigeBK8lEXJv Z9npgHEeXVFuHKBnS1zcSlBw pH5soPaeLOxfpzHiJVNydz65 Diagnosis (test code o9rhfRYvQHApoICyFFXqMots = 34) wbAnPPWlfKTrQ3FyubtpDXtl RF9zBO1ciJdgcWAdyEEfLRIn UnEmm4vdw337aTUel9wbZDJI kumvpMg0jJnuU29uu9Z2Kijv X38fyDCuYJU1VYFpYYMkpIHl TXBsILE4UJIboCXqF1mjFAXn ZN2kypavBOjgQXmkBBTsgTX5 GTBluLPqB7LnQMQiUQauTAVj wim8CzKzOu5iePBsqBzrLYbp ZOKqQTGqAOntOIFxLmSkYG6g ZGbbfLhlle6wCVhdf6CzUH5h bZmrJPG3DqmxKGPncXBaLL0f B4K0xEDrLUXasqW5uP8znc6k xRNcRHIauuAKZjNIbE0zwZWq b4ApJEYlCHB4SWDqgUnyulii TOORToypTGCciTRwCF3jU6L1 mZQqICAjovP6oV2bxy3yrVOl MRHkdlZKUsDHmC1yiCSfm4Eo ZZRkPDL7KJHnhjGvxqqwPwIu LCAxMUlccGFyXHRhYiBOZWdh aZp1HEIma7QhcQKvu2VsTNEa uuenKDHqLN4hEWcpnRkpbp9u QVtbwYFlPY9zu0L6oLZbSRY1 KIWjrcf8KOVdYpMdYFKdufFt Bx1fCJB0vD1mCdklXBDahFTh FZYdBRb7fQZdJB4gQQTdFTT9 FkIxadzsYZejATi8DAOewmw8 EUJkAkZyGNQpkuCkRr1mCQO9 mU2zYmvwLDMnhLVaMUQgRNo1 lrzyDOmhRkBmuAQdHMMeqV7n HCwteT2bXQC7o035EqckTWJf uSNzXFA0iRBad1n6PEQgM4Di hxklQyKzXWUoc1XwBovbew1m t0zbXVbdef96sjZfY6XiHIF4 sHKsXSGvY4SsGXriBS96CTKs rKqhkpUqJ6Uyo88eAP8kZHjb FiqrfC0unM9yjPZciAVgG9Rl LlxwYXJcdGFiIDIuNCBjbSBp biBncmVhdGVzdCBkaWFtZXRl ao5chKFhJTCjLpSTffFtXWBr ZQDzeJY8rWHzdLUatBXho0Fq cYMtiFUgeaLbTzzwJG0miVTz IBDhMgYApt2kD8jkHQxmLW7j JPXbikAnK3d9uHEePR4omyve esBiNQZyEO1pV4U9zJGeAGVr srB8pX0zjc2cxQVuZEHwAkKC kBqgiQNxyL8dfWRvi3IgzlUr fyCsvgRjNTHeqiCsHu3yPSE0 kV4dCGrfHwxuJKDewqj5SRPi cGFyXHBhcn0= Synoptic Checklist LUNGLUNG: RESECTION - (test code = 9864) All Yovkbaekp9lc Edition - Protocol posted: 04/27/2021 SPECIMEN Procedure: [...] Category: pT0 pN Category: pN0 Gross Description q3altYKwQICwkELRRPYyGBKo (test code = IQ3hcZhoaJf1zHjjAINxboV4 [id number]) mXTaBCnys5lbRGW5x0bedrGB QjnvCKBpVC0dEQmzUPLuWD5v ZmUwXGRlZmYxXHBhcGVydzEy FhQxFGHchXMasJZ4OUOcPB5i tkkwKOgaILieISMxphI6NPRz rNIyB5UkRXBzHZ8hxqjzZSA5 XLRZFafaJb7ahJNiuXrjQhLw ZmNoYXJzZXQwXGZuaWwgQXJp KLt2uI8JXugqM70hw7Z8Cam1 EYToMCChR6CmVF8aHTKdfGBp N21LYyfyODP4FHJAWyhsHbbf jSuff3EcjZAfENOrPJfwkMVg NTEwMDAgXFxkYiBPVlIgIiAx RIXtNZM4PzC5OAi1VOPRVHYq LhM1CxE4LSD6ELl8PLBpCD3c RLbbyOQzSGluLrxvJQnsN114 VNmnCVGuT1FwK0OzYDhsSzSt GEhlCLIpEYFjSCckSKGnD8IA RNEoSFC0StgyRqTpBNd5SMln V2NBNWFlJQN6NrF6Pmh9CpU4 NPr2PSHBMy8bZSQbZnN9HJQ2 VcA9LWT2VREgDHJsAnEhBXMg VTQfEMicqBLiYP2wtLikQFQl CY7GIZAaCBgqUGQzUrNuMBVE OlxwYXIgDQpccGFyZCANClxw cMPhsopbGRNjFwScaAktmR6b eIAaW1erNyTvVjotjUbpPdGb dERvYzEgDQpcbHRycGFyXGxp bjBccmluMFxzYTMwXGVwaWNY s7FeBUKAJwkyXITtSKtuchOa VXc5oPWlEA6eKAGosylrITI5 ZiNrycFvBmbbRSqwy0UlSgLq TCCoSJQ0FYDjWBPUi40yiQG3 fnMgUdPyDYOuNY0xul97yxUr zZ7bwEWdy5KxYQqkGhiaqHYq UeBrwUKgHsEaV37jHuPmAYqh IHNwZWNpbWVuIGlzIGVudGly LSq8ZNN4Wd3dlQKmHONuejKp FIXnBXB5IRHLNV4qVBfedc31 WBO4n4nwcIFrSZpmPwjgrZNl hfU0USbBVNCZRGlUWvJsFL7j PUxJTktCRUdJTnwyMTAxNnwx sCOZTXK5XJdquIsjgTa5t1mo yQQwb7j8TZgwXKX3tO9Qd5og bJQfLQnbPowaaIKvgiG3UOpT LEFDOTwYSzQhQX8kBKfTIwqI PhK5NhTqIEY0TTxHB3SYdZV3 Jpz3YLe9vTojIlqnleQlpFNj FwJFdB3rfNursI5txREsN4yo OrMoVOJUEwrdCNBbVBSgS9ux NGQsZHqlQUTxG88qy8SCw2Tc r0ddzBkjy5CthCUrFY1wjNKb DF1Gu7axIFPstQMeETS1CJse i8poRDrfUZJ9FYVqHwAnRDQr AO3HAxIzWHPwMFZ1NOqdQCq1 UPz1KZ6NKzTnHIJgAHVrZCH8 RoTsQKf7NKvsJE8LASLiWNWs HORuYBiqCWCgIfyqUJy2DWLs QNjvplQmGWawSmwlEWbdO75l a9QdEGSjAQQgK6koWzIdFVIX ClxmczIyXGJcZnMyMCBCOlxw YXIgDQpccGFyZCANClxwbGFp blxsdHJjaFxiXGZzMjBcYjBc ZnMyMlxlcGljTmVzdERvYzEg DQpcbHRycGFyXGxpbjBccmlu XKbxPqOmWAEafBEVd9IrAGmr DQVlJCCjkGUXk2BjHJPVAzwi LIXkSIynzuAgHHo4rWZvLJ2j ZGUocyksIGxlZnQsIGhpbGFy GKRtWBgaEF3bKJIaPAhyRxZx AgrvGUDsI81xe3bytMXld3Mt MUS1PIano7kguSVhDJk0dYVj PA5gDTYvDPAoAWXjwPibZHDH vBQxt6JyJ6cmKQ3dqVVgDO95 hQSkoXjcd6RfhJz5kILnDQnb TYHhl7CooHVgDKDsDnFmHCYe u3TaE4F9MYNkHQltp0fdKPUa TByyx1BaLNiRGPZDOU2LTO3t pMV8ALyRS7WBM9kMeQZbHJY9 hPH6KDDSDpmpfUR7wPF4lU43 OFTiEUCgoIIpUUffC958QPa4 QZSdVFifr2pfECSaIIlme9Om ERuHDWMTVE3WSG8frIQ4MGnS I3TSIMekBAIoJrhgmPILPXH5 UFkttWovgAp4j3zzoHYgh6w1 PFcsMAR7xZbwhLMdxxyenQKp mFitcqKvNS3NCINgwyYynOPb cGFyXGxpbjBccmluMCANClxl lBovKnZviNWgPfE6XAOumXXw QXQ4FW6jbKlnSHRrZNg4QPfu CZBgW8GwM3DtQMahDlZrYFlg ZFEpFYBnVQzpRYXvL0FEDGCk GVF1NiaeLdJcGDd6QHldM4OJ GQDlNZQ6GxN2QeQ6HsJ1FRo4 VHHFIw0aSHVsAbD3ROnmRiB6 LWV3VTVfJCGjSdPsFVWmMTZx TSaohPTeLS4cqSgqQlTtDTdi yEsrLXSuHXQ2GH1LCPYrQiEz UhlbtgBfDAY3OPYkknHPJwnn IQPzCF6ALZArCVfwZAr4qeVy XGJcZnMyMFxiMFxmczIyXGVw yTJBSSL7AJ2mGOOLLiynhCUi RBVivCkwRColfW3aVHKbIbMo GHGtK8vnBxXjXNYiNkQcAPFa N0cvADDsPW1THTDxB3PdHGCq UnRsHYquqAbgya2vWAicJFdf xGWhlUjtdP75KYQls8Lkpjjj SONhUCCcmvZwDsJrP0NnLMxb IoLlQLIrxcQjc6KcVP4pRKL4 oyUfTPMbDqUkv01rrOkpuWkr es8kNKInPPLpSQDmwxGmML32 RFVoAM0wEULkGSWvaEGphK6c biBpcyBlbnRpcmVseSBzdWJt hYK5SKIveK3dQ3Rjf0E5rUUs QzEuICBccHJvdGVjdHtcZmll lXF0RKnwCpxrvX9crKSBQXZE AkiRXhwkmnGcVF1AIB9OLyGA FP93CxXdXCL5VRoPD2ZLgXE3 Kpy8WKt6jVmeXrcqmwFddTJm SuQJsS2GGBddUkhftWX2KEom OrdtkI3njYMGZATPTmzBHzxe sqRbPG4ZWL7NDK8XaNCtNOA6 kTB8GIGHCwdzsSC4iPJ8hN03 LVAwXTCsiJDuXKldM097ENMd XZksXUw8vxGoXUYzViKiFUla cGFyZFxsdHJwYXJcbGluMFxy yC3aTN6YKUWvaPGHNTJ6KJ5f BIphZSCfZ3DeF9DbfgR8QVGi syFJUacoSrfzhXteb3AvnITk XHNnIFxcaWQgNTEwMDIgXFxk MzSRBiXcXcIqFGElEJJ9NaX7 XHw8SZYGCnAfCbZcYOIkLvu2 YUYnASb6CEq5XLvREuEhRzA2 DGNbVHA5STT3ZAl8HYxliIJe IPpiz3HeJjLqUPEmSKxooyR8 GQHgWIK8UADidDZRs4JrCESs DQpcZnMyMlxiXGZzMjAgRDpc eCEeQI2DMTCrkfGwKGwowLcl cE6yuDTeQ0aaAyxftfLcNQCh CAEeUoBmXONaT92gv6NWj1Rh WZ9SHOg5biZijqksuY8iVJPk ldIbl7QlFIxlrMlcFKUrQuFt x4GxZEzvrOwwDLEuBaWtCBdp KvolTdBaCcFnAQZKbH4gwWPb u3GoVUKgDHJpAAKfEFIedeOe VkmqYbjov0GaQaRhO0MzCZed B91oh8hiyNBnn5QorOnyOMGu fpFjHCLcw3wfCPe5wHPcAF3o HQTjQoToTMuqSpZxK08bXbHi VGhlIHNwZWNpbWVuIGlzIGVu bNqtAWa7UUB2Bt9vhAMxFKKg rmDdFDKhENC1SARRFQ4aGObr dg43LXY5n1dccBDsNGvuMdut dBRbzvK5MShXEKDXHVzONaNy WB0xHPiOBajHLLwQQyjfQMSe TnxyhAIHNJN2AVleoToxgOe0 i4uuiTAhf9y3GTvmQWH5hF6V j0pepULoLClkAaupyLYmpqT9 QWhGRXFYZYvWGuEcHN7aILnG RbxAFbO7RvVnZAQ7HQqPC9OG fHY3Pwl0LNu6dXalGipytzZp pODjNhOCfN8dfZmwbT6geAFj Q7lySaCwBXKEUdvtYVDdFIq9 kmOctrpviA5wCRQzlmXqCBhz HVVpS75ep6GIl3Sdx2tbgIvc a1GkbQIdWW7skFWhRK3De4cf EFSenVMtVKB6XElrb2xuDZcz FNQ8RQJjQtUtZNGeBM5UJbIe HGBkXKL9MLgsISh4TKl3OW7E YoUpGPGdQASlIGr6PbBtMTx9 FHweWX1UWSJsEEXfESSeYWXb GHZnWlrmMVh3OJCvFYgaiyXk GCeiLymyLXgsC79yt5DcULIv FRRjB9vcGtDcCOPALfgszbOp XGJcZnMyMCBFOlxwYXIgDQpc cGFyZCANClxwbGFpblxsdHJj aFxiXGZzMjBcYjBcZnMyMlxl cGljTmVzdERvYzEgDQpcbHRy cGFyXGxpbjBccmluMFxzYjMw HNCbsQADd0UtHYtzNUBzUFMl mDTOv0DnZNSSWymfTQKuWLbz rnRlCTq7uTNgNU5kFLBlrsis TSS9QvYmscfvPEvoQOvjFW7h UBTgBIYoIHU3RUYzEPENq32q fGL1rjNgVwL0q68kguQkRTBn e6xkDUl7iKFwON8eGPOhBQkk OyJrSP9yEMNwKjYnhOyvTZNG aIBqu5LuA4hzYW6suCRdAA62 iAKowCcek0HyhTn1uJCqKLrw NDHbr1CpyWHiFPMaCcWkKXCz o5AeF6S4ZFEvAAxvo8seGHYy EDwvd5PmWHsPZALNOX6MMI8q aWY0FRzEN6REV6xDyWSyZYG0 yLS2JLRNXlvanDV1dTX0eW26 HATzEFYxjCXoGPerL622RIs0 EXZtRDtak0apIYRzXYtbf2Pp GHzXTPHWVX3HJV2quJR9CBgL Q2FSVYkvGFQeHkxjhERRMER0 OXfdbIuooTq2y1wlrPCph8m2 EPfdDBA3hXmvvHQeqvkwxFGf mOylrrHtSW4AHEZuhhIzdUCi cGFyXGxpbjBccmluMCANClxl fVvhVuCawPTsMmE2JHMneRLg EBF7UW8yiAgoVQEbAZo7JTwj DMFcG2DhL3EmGQrrEeLgPCsw WSTqORLlDXcrCRHnU1EMJYYw LMB7QkjaZaMtWCw8WPvdG0XX KSQlRON3MyT7YIJjPbO7KTh0 FWETCg5cUZAlAqBtLZO7OiE8 EWC7WYIbJOVeRaTyMZMtNEYi NOqwlXJeXB4ckLceMlVtJAsz qKooUVLbXFO5DX8RYPVyXjHc YlhuasUgCOO1ISVyraBJScax BAUxOS7EPVPsXUlhPKj0dxFl XGJcZnMyMFxiMFxmczIyXGVw yIZYKCE7MJ3aUHQDMthssRVt OISfbHtgZZmugA7yBLKxHzGl PZQwN5pyLjSrLF1OAYEjQ1Ab XGZzMjAgTHVuZywgbGVmdCB1 qPRnixKhh7WaYOOqXQV2HLOs dRDyWAcoUvVyxC4vkV3vUm0q Rn3jSs5tXi3vHy4vwvCkSTaf VdKmZjquFQDhBHGxIE2cSPyz EW01HWqbCy5kTOZqRGeyRsMk qMPmZOIczLGfVvXrz2UgWEdn gTtjKBF7AaRmY04qJ3DbnVAx ZXRhbGxpYyBzdGFwbGUgbGlu OVStgxJrAM25TKGdRTkePIxx QVDpUNUdMFEnKIQgkfBlcB6d pTRbZVCwX7Wmo04pyHQxF0gp LiBUaGUgcGxldXJhbCBzdXJm YWNlIGlzIHBpbmtcdTgyMTEg GHl9LhGzTEK4kHMiSVOnIl2m EOwocHZmz3NwPSWeLWJcHPPr FH6qGSIsIFsyZAjbYTI8THL5 UWSjmFSat5yaoejaWUPmxlHP CxuoFqJuKWLvK9foFnJdBBfq uABgSCzkXKUhCUbRzFNon9Pe cGxlIGxpbmUgYWxvbmcgcGFy VB8qxChbQDwuaLNpD4xuBEst l7CtNwCSfVNgg1IuF6vyDA7h eZYut8SfjQNbkZklq0PtmCsd axYaFJOvjnVgvsJtU4GiWNDv nM1gdJeqCR8digbhxgY7xdZf ZXZlYWwgYSAyLjQgeCAxLjMg hDWgVmCxJ68clRSyPQe7XELo PJFiWir8N3ImpEbyUjxpaLkp mPbgXNGkMgnaUOWrhe6hoHeq STdvxVwgVQMdXIaeBHI7UfUa LUucQLN3ATdlj8bdZ8D1VEM3 snXaI3Vtt9n3tK41bILoTA5h eoHtQOxhQB2cFN8bM3Iqc9na JQHrGjQtH47rBuPurOJ0sMJx fkQglnUoxCQoMCJrpkVdjH5f hDRvXOZkH3Kni43hxIWiZ6jk RTRkNtZjA70vUeFfcYH1nFVi RcXfhvSmyJJyZMHcGGJ8QFKf hCeoilUiUIKsaU9dUQ1wCPK5 nFNhDIieJoL9isC4iROzqNPb i8HzGQRcsUjwjBXvNsLUdCWk gXQmllUaenZot7ZivH66n8t2 VBMut8r4kMJ5mGZwsDeboUIa rAYxmHSyKJSwApTgeLVsVZ6U QROkqgKMVoGcMXZ8kzakgu5o ouRsHVl2arqmsBUfPS2dbCsc HICtuhBins6lo2j1PAUaqyKw UDXvEXDzID7tSL90dPRbvXkb WLVxeqc7WKSvQKQkAvj7Muge H8qsyT9hu3xitHXctWmgfOui id0sXOXobEKeldWeLhfmVTQc TK8osO2fPOThl71bPX0jDZNv IDAuNiBjbSBpbiBncmVhdGVz dSCggH2dysEop77gWRChybNG TzqlIYIkGTlYXucrA32RUAcg YukdJ0snaBzqURZybkDgS4n0 vGQmybSbBZO0hU6wEP7mmdhx fnTqpH8dWhM0nOIxo3GasIdo OWvkiyR5QPMstVUzzYueoVXk GcNrnnFyB2PuuEbmYUIkMCr7 LyatoBUtCXGhAIFwDRA5YUQo roJjv6WofGEhNkM5pAVxGqPi sbAfeFTqBTGcBKX8BSVnsMiw ajJtRNDqkR2pLZVbmlMLKvvo AANqBXXeeHVJh8UfZCQCRqWS Q0ODV92qC29POHktKwBdOQEt g00lhNtesLWdATPtfC4uEHIv LHRcI4Y5SPVtAQW3WTAasAqv gjZoBQKfcQ6wDDQbULAfM0J1 CAXoDIEbv5A5cOQjr4x5mSYe IJofQ2JeaCHktPP1whW1NCR9 HDK3UeHnDKuqYERSREwfBI89 wTOwrHtxo8WdqIs3cDAxDW4x HNLmILHpTI6gqF3nvnfgdt5s dWxlIHdpdGggYWRqYWNlbnQg zUWzRuAkVDFzoeZrzK6cAcOB MUvvzRCkQqRrESSkhnFtaA6t HWPzziNrPE38XSMfCN3sNFSk IFudG5whz5ZrrP7wkFtwGC9w ewczqtBlXzTjokYaLC3jzrFu MJ3yYDMeJXZjzNUlrUJuhPcf QWqcQuZaOUZ8PfBzHZopLQGV LOMdJSBppIGkx4QhwKV0bJCf EQSmE2Orv45th2SetR7ftaOe rFDaABAsSVJduvZqeI4qKB7x BUBeDXGpjR2nAzEIHDLdgOqv PWDhDUz7AxEqAioaPULhhPOz p526LHbwhB2nHINizA0tj3fh mDNaaUexqGklga2zMBX7HYKe YRrjDnOsn0XplMAtZJZviK7b yLQag4Wxdd3oACxQERhqe5Nw TCUjqOHWd3JvPV6XRRVpkHWW KVN4YB4yHWzwSWJuK1DtD1Kb dhC6u7opxIiyt4TaxNRnTJ3i vFKpRP4CIAXwUrQxLTh9 Disclaimer (test code d6fbaROaIIPabIDnWqJoLBHy = 9844) MRZql3uuSYRgcGOlVvTxEtCz WmJpUpxhwQAfPSNgTzMqk7ys m393gVIxc0lkFGBfRzY3cTOk ZPHaiGBmK629RZMmUVlup9im p2MmYKVymDPhi9B0ZOACxoyz hUl3tOybW24gf1H9NuslZ0zd ESHyDKMiR7HfOD5eJPYyVlq0 VHI2KPV2JFSrIEZhQ3XxLE0i SFZrsZCcCCh8q4ocqBdsHXLe KIM6h8kbLEhyjzUcYI5gkm7j yJy3k6vrkaGxSAQrIXQtiLFJ VLGaT3DeeJisDr1zzEe8aGou HokhSVZ4Byk4XZ5xnh25cvq6 kTorWMOztvprJdA5PRskJPAy fdtaSRz7DWwpKDHdgQV1TYTu zSEaZ7PuMYEuRA9zvsz9WBV0 UIgsXAEjShT3SCCfhITyPYIl hVyuGMkmy737YGQ6NhQuNS1b H3Fll5P8qH3rpUSqDAVxtMHw DpGoSZEdxe3mtGVtRAtey6Gy CMM6upA6iFBrgKUiZGHkSG15 Uceud3ImTxfpUES0QMNigzYi u7Rxk4zrOlQmidTlF3vdR2Yn NBDbNNYxTWReDzBqcwBfl6Zm s7VfjAChuBm5f7roZJAoFVEl kLhby3jxOFX7ANLkK9J0cOIf g8fuIBejXNIbcZE9xrL5NHBc kYSdR0AjjT7uXWOaEI5xhsu9 j6ucGPX0QTdzNAYbNmW3rxX8 YYEqtNKiEMHqxVutGQgxp359 NTR4RzYoDEIbo7IsA0DxoWzu B36wxPqhP61cMILtvLkqnT5y zMdhbS0iVkLfMgZaQRqckQwo rTSmwhlbODesdxT1KMrqvlha AIJiRDtnO5iqQkAbHAUogPfk CLkib0JiWHLpMQFiHopzkxY7 SWBAj91oETFqt0UzPTPdkS9t fUEaDEwgvuKewPT9CNbgkbCg GdNtqnFpNCMvtR9oAMQjHA9w IZTerqJpyy2mizYwQYSvPYNw K0EcsbpcgTfyczJrMLBvst7g cvAjCVQ0XWDTDM2OUPPhJVGt i32aHUSyhFzquR3efJIoobTq VHUmy4LwbV7yvRAFMEGgH0oo GR2cGGvvu6NeoYIibOAbuFK0 WUDwu4FeWqNnhmPquCOckVGp X3NmuQsiB3hgEBGaEAJanoMd jXPzw2SiWBKtoOS7sMCtAJ6E BiKKk33uPBKrYARSjdKtWIVv tOwxqID1fbY7wQ4qHdJMShPd vXGmkBNzVoptIXOkb782pu2p izT0ZNPyGPGjjgmts3GmHKMg RWXcpU40WGNmEDGrye7bnwbm xFDpufJwR0Efrmo4bM1gBFVw YWluXGYxXGZzMjJcbGFuZzEw MzNcaGljaFxmMVxkYmNoXGYx ODnsO4xsZaKbLmTqGpomCXB9 [facility] SurveyorPathology Surgical Interpretation 2022-05-29 20:55:42 Test Item Value Reference Range Interpretation Comments Submitted Clinical c1whlPFrVUYzu0saKMQpsHDk History (test code = ZzEwMzNcZnRuYmpcdWMxIHtc 72532) rsJeMQazy2QkS8BaUcJcNQpe bnNpXGRlZmxhbmcxMDMzXGZ0 xbLpXNOpHIdzHJGvZJqfBq6m uUDcnWqxLvKzHUQgw9gfbpPL vpfmnTr2t0irTRUqDpZ6bMRw PFyoW6glooNleARzBZNlCSk2 vZ44IRZffT1uoFGkNZkszsKh HhK4BRqeYXKiOjJ6EWXfoBIo YJEqV5avOUWaDVqzDJArNAhv dNMkFIM6wYorj4I9zTAfpGYq jFtzBpKeMuLeEuQUo3ByAGk0 fVdiY4CoKVGeSoC2hUJgHQWc GKlnSWKnVANieuX7iJ15FTyq utX6sXDcg4Box34se185cU8x aRTtNDQ5VFFmBTCygQVmVPWx TVY5MLXboTZhB3pfDADjTL0a vdeyCSurGEfxACFhbUU7GTQd iMOhQ3DdZXDyMCueKHKyjvd1 QcAzBv7rpHTkeGqkCGdxt0es k4iczKQqWyz8VLQtYrZrEiwq NByvj7Wns0rzWOXrnk1yBUC9 oBTioQwxx6T2eSUlLVMjhIHd pzOnMWKjFkT5BVcwNL5rze84 LUKdEVP1cm7fwAZyqPsmdfJb pBUvKFipG3DyKWUcc391ELOb D0CaIYKed1F1ncHrRjZqEDXk nHK2reM3QFApXLt5iXCfmnB7 naXliFOuJ3amgA4aOXHiPO5y lrwwh3dfFNajBZqdLUTipXG3 cdZ3PXQqvVAgI4NjnP8wQGRm DPcxMIWvjbh5TyByFx0kdIOy eTcyMFxzYmtwYWdlXHBnbmNv bnRccGduZGVjXHBsYWluXHBs YWluXGYwXGZzMjRccWxccGxh gY8iQuCsLoPmTEpkFC3oABIa M9ghgAUnPFElWCXyG6gnFgGm bI8bpTgyMKjholBbOSHeTB1w N9MeM6jbc00kUPTPO8Afc9Bp bAGlRUBilR5fPGhzjWGaXaK0 BSHcbT1qQ8HnQS3zYg3lsGcl vC2oVoLhOxHzIiyhNS2wSFRw L2hciQKcSVRvJBZsJ6bqZzWb bZ4uvQddAPglosZrBPFndq49 Diagnosis (test code q0fqnUQkRPDitQPjLMOkBxjg = 34) ovApJAYezGEoU5LyppcyHTnn II6dFF1fbJzeaZCnrGVgROVv JcOij7ljv633jHEqp6uwBGUY thcjxAe2fWwrS08ox6C0Riqh J28dgOGlMWG1XZMlLDQjdLNu XRQlLPJ8BVRrmYKdY6vbJBLm NE6idlsmLQgyEUqtRBFonUQ5 EFVgyBQsM3SkJWOsMVrrQWXd ncb8TrVkLj5muJTncOtmRDkt TSOsIGElVIdzQQEhMjOzFB4j GMdjjZzfvc3qIWfqp3BlBG1j zXdvJWH2EzdhMRVktPNyMJ1n S7J2yXAuAWGrlrU0cP7cgu6k gFNnHPTetsTBJwBJcR2zdAFd q5IlLGCzFFJ3HAJhaGsmeheh WWBNBprqPTAylLYiQQ2zV8W5 zPRfQLUegrL3vT0rrp4frVSf RSSozsLYFaYXqE2xxHFya1Bq RXMyTUK7ARYtlzRwvttzFgQe LCAxMUlccGFyXHRhYiBOZWdh jLl5XIGid3YabJJne9VdXIWa yumbWIVaGP5nHNoigNxkpe1r BEarhQNfLS4ql8W7pKKuZVK6 MWSnjjc7MPFdZsGlELZhisDz Pr2mJXZ2zH4fXgxqGBPqnNHj IPFgWVx6uFBvKS2sMSJuBBD5 OeGamyzrYHnuCRo2FGYjtuo2 CZQeSsXxTVLevcAvGk4bCNW3 eS7dAqtdUEZmwMLfOXRxLGq5 nwfmJWtsSrYonURnMATgzG0e HKyetZ2tXFA5v672VivgMEVy oEGhMHN6qULiq1k5JXGdF9Kg xefgSjJqWZQqd7KwRapvfu4y w0fdPTzzjz63jcPyT1ExLRV7 mZGaNJLjB2QkEAtlRO94CDAi bOmsahEdN9Opr57eOS9hXEnv IgaikR7bfH4rdKAjbKPlA3Ra LlxwYXJcdGFiIDIuNCBjbSBp biBncmVhdGVzdCBkaWFtZXRl qb2yrEYbXROwFtRKlxGfAWMf ZSEpwZQ5fDVraCWzuCVbz4Cs zAGazJXwklIcUijiLN3wtHLu BHKjAoGHga3rN6cxMDqcXK0x DXMsrvZfG7e3oWAqKG8qvbus stHaFIKuMP5sN9R9lFMzJHOw oqQ6iO3hlb9aiCJiMONhOeFD bHkoqBUswZ6cjQFuz1ToeiWo obVpfeJgPRLgmqFcWo8gTFT1 oI1aPIizXyqgCCKydke8OWSr cGFyXHBhcn0= Synoptic Checklist LUNGLUNG: RESECTION - (test code = 9864) All Ccgxykzqv9di Edition - Protocol posted: 04/27/2021 SPECIMEN Procedure: [...] Category: pT0 pN Category: pN0 Gross Description u9iuzQLzXCTguPIFFCImUCHn (test code = CC7nkYwsvXg7sYdkNFSixdO2 [id number]) uGOaEEdtv5ovYEF1u3qpbyDC HwpuBOMrSF4gCKvdKSPhKC0j ZmUwXGRlZmYxXHBhcGVydzEy YjBaLWHknBTidCH9ZUImQL0e agrsAXlePCgwUDAjagY0OGDn kQOwU9PmXFBtVQ7obosaBRZ0 SJMJYiotXr0lcVXomRooPhEs ZmNoYXJzZXQwXGZuaWwgQXJp LHo9zX0PUmarH53hu8G4Mah8 GMDxIGKsW5OrTV1xHXIbkKCq S63VBuszCSK7BQLFSbwoWkfp rDxjv5VtxFNpMHGqTAeuwXOf NTEwMDAgXFxkYiBPVlIgIiAx NHZiMUM3TqX2AYr5YIZZJYXb JwJ3VuO5JMK4GLj3KJUyOQ5p TLyvuXIfAXtqPmkuZKcbU217 QYaaQVCyW5FmV3JzATnvNbOj XEnfPXXlQNJgIZtjPBJjO6OJ HCJiLBP4LugoWrAwBTp9DPvl X5CXNUQbDDW8JiY2Yxn0NvW5 OUa8DWDRXw2rQDQrQiV4GHO3 FnT6QBT6ATSeFRXvLdKcGVHv TLOvLKstzHRkPD9mcQlaMHJr GA6JRZBjNYxoDJUbUjZoKTTS OlxwYXIgDQpccGFyZCANClxw rHZphyjsGMUmLjAqfTzqgA8p gRIeX1kxMeYiOlkocShvHrSx dERvYzEgDQpcbHRycGFyXGxp bjBccmluMFxzYTMwXGVwaWNY g7LbEQNNMlebYUFcPRzpfaIe KLi4zHXbSV7oMJDzlaliXFH8 AyWcwtFpOrzmVQsuj4ArOpPh LGUoRER9XQRhZWYAx76rqUT0 uwWpYbWpLUZcAU7cub14hvEg aQ5wkREzm0GrVGaeLzxvwRXn OzWweGZqZlZrL28yIcQbMCbg IHNwZWNpbWVuIGlzIGVudGly AVa6KJY4Wy8ihMBxHYAvzhIv UYDyLEI4UALUBI5nPKreey63 IVI8d3hmjQImJIqyGpynqQPx unM1YCdDFJLSQNnOOrCrLX2m PUxJTktCRUdJTnwyMTAxNnwx lHCOUPZ1YMizsLkgtSa7g5qa iAHjb6k9UQhfVIQ9tS3Eq1ki mRWcMEwiFnkubAIhmtB8YBxA KHYFAJeEBtPuFD3jQThLUjoW FgS4KtIiLJY7QNjKH2NWmGL9 Diz7ZPu6lKrjLbavhgZepLPw WfWGlX2gwOsdyU8ioJKdF7ky NeFpGLGGWsyjKAJmNEPkJ3ow DGWlTBvxNCGuA35ie5HUq7Jk q7mgvMaer8YbkUDmVK0ofQOt IE3Iu2qoDUBdfJXsSYK3JUbr x8edVVfoOPY8XBUsToQjXBTh NE3YKdLhPHXmVJT2QNiuNUt1 RBm0ZW6GOuKoIIIvFWStDIN7 LtHxEWc7UYknDS4SDWMtBMQh IREbIKpzZDIhLkyaRTu8WIQo NFrawkZwRXqxAhdaKArkZ87i o0QbBNWlAFRdA6uvVnQgAJHT ClxmczIyXGJcZnMyMCBCOlxw YXIgDQpccGFyZCANClxwbGFp blxsdHJjaFxiXGZzMjBcYjBc ZnMyMlxlcGljTmVzdERvYzEg DQpcbHRycGFyXGxpbjBccmlu LNsrQuZiXSUmpQIVb7YvCBvk VAXfVPLryFNGu3AiTJUMFhou ZKDyBKrlxpDiNKp2pQRyLD3k ZGUocyksIGxlZnQsIGhpbGFy UJUwQQwhWG4yLHKjPNqtQlVs CshpZOCxP29mm0ucfNCqv9Zm NFQ4ZDpee9jztPGvDQn5rEYk AO4hAMEpHIRpSDVdoDvdMKHS zTJgg9LrW2wiXU5ikAUxVW21 tOHweQiud8GadQl3zWBnLDuc OBCrh2MvrVKrRZVjQnWjYZPh f2MbK5Y4HTCqOOueq4nlPJQi WDmnp9UuQItQVCRKYK3ACQ1p bBT0EEgDW6ZZA6jSjAEaGKA0 lSQ3YFWCPwotdQB2oHY7mY62 OXGaWOKlsTQzYIipT843RMk1 FOMrGMbxa9sbQZAfNVswo1Ms ZRmGWTFPCL7TNV7ivPK8TSwJ R0VENEhjKYLzJgcfvMDZEYK4 AQndoIqhuXa9k0rxpLQsl7y5 LLxvUXA2sBbwePLvdqzhqFTx vXhhjyJfHO6MNHLvxpLklJQt cGFyXGxpbjBccmluMCANClxl uJqhBcXcnBMoMlM6BSOewGSi RHL5PN9gkAmaHGGfMEk3DTvg PGQuU8NmK4ZwKMofKeGeTZdp HABtKRKjGNhjYSAeT4SGZPVe BOQ9WegdFmVvHQr8MTxuK7CI QYXwPYW5QkX7ZeC3KrE9NTb2 HNKZAm0wAXKrGcT6JXzjExH5 TSX0KJYqMEPiPwNtKHGySZFf BIolkXTsZM6cwTzxJqUjFQbe qTuaNROwOCQ7JC4BAUSbZiIm WqvzhbFzLTL7MEEgahNRRjio VPImYT4YSMBuURslPGy6nnGz XGJcZnMyMFxiMFxmczIyXGVw rPEPAOK1MB9hOOJCLrcohJDi QJUcxSpiYAtueU5jGROwVeNv GLZkD4aqOkGbUXFiZpNySKAb R3rnJNYvFS7RXBBhZ6XjYYRy BbMqAXahwXxnnv7kQGjeUQwz kGWfqUrxlW36IXLaj8Ffgier ENMxFTQbxbFlVjYbE9ZfIHgn McKuIOFfbmHem8ZaQZ4fXJD8 kvEmHAPhNsNda35ftKebbOkc bl2lKNAsQXXzBSVizdCjQF47 XGOvIM3aWZNkRHKsfKUbgG4h biBpcyBlbnRpcmVseSBzdWJt iJL0TBPytK5dD7Zjx6Z6hAQv QzEuICBccHJvdGVjdHtcZmll kOU0ITseDjtnaB0hxTRJAVUJ CvkFOdzysfFhGP3QZM1NUaPW KV33ApNsQXA3OUhDC2NIdXU0 Yln6GJd2kWblLkvnwvVrwTWx JwWLiA8CEDihRpcvuJI1SUdl EdbpyV9bmEZTBJCYUjsXJfov woDpQT0WDA8ORU1EsYYwIYB0 zXI1RXONArwhrKY7qTV7jM80 EJGoKJForDHkLLigW531IHPt BMctKOz8evCmVDBcGpGxSFqs cGFyZFxsdHJwYXJcbGluMFxy lP3uJI8MUJWhqVJBYEA1NT7c ZPppUPFzD4TvH7LuamI5QVMs isJBFjxpOqnvrEwxu8IgaCXa XHNnIFxcaWQgNTEwMDIgXFxk YbGFIoStEgQdGLRyZOG2PoG4 POi1TRMZIxVxQxJtYAScMey4 YGZmBQl7RJo9XYzZFsUzVdN3 ZHFuUTD0XFY6BPm3BBseaAMh VRdnl9IdAkVqANVuIXoibjQ3 COFyBCK9JFPqbXOPi2RjRDEt DQpcZnMyMlxiXGZzMjAgRDpc nBEmOH7JDQXzhuVqJVazkSlj zU6svOOgS0akZzvrqnGqIELy OOSqDaRbHAEgN44mf5ZZv0Eo QC1GDGc7rgFiwdotgA2kZSMm dvRyl5EwDBpctPvkCVOhAzOf e5QuGCzeyBzhVLEmKuDzVYhr VdkmWkLuCzJlVYWIyR8deSXe d1KiOZGbTZTaILJbHRKxtePb BcezYbubu1NlVlQeR3AwGYwi N72pz2uvsMSjz2UlgZyjWWUy qbShIGIma0bfNLm9cRXdGH5k DQAcKrOmSRmsSdRnS43fSzIi VGhlIHNwZWNpbWVuIGlzIGVu oCjtFVl2HBV7Ft3bfBBxVJGa byVbOSQnFVD2RMYPIX5hRMup vc06EEB7y5fljCKeSUtrXbvg gZMfapL5BWbDXKUHOHxVZrAk JQ7aNZcDAufLRLxUHanmGWLp WnusjDVEECD8ANmbbHamdVr8 g6iisQImq3b3OBsnQBN7rP9C e6jgbWUwPWytRmauwJJhlnK6 ZZtWYUCBCIfXMaVfMU3nUBtA OxiRHkV8PcFvICD4XQiDO2QP kGE8Tqy6FHf1tSkoXlpbxnFj kGPoVjQRyC2ujDzhtF7vnGAc S5kcRtDrJRGMOrrdXIXyDYh5 evTbmhtpkE5uERUaekYwABnv MRYrT00mi1PYk7Xoa4jgdAzd b0MwfVIyCZ0mcXJmQY4Px6oy BQYxqXUkXVM6RXwax5jpDYuj MAE3MPYdEcHbWQAfVX1QIgWi GAVnAVE7VCqmDDi5NKa2UL7L XrRtMPTbFROtDRo8LkOcLKc4 CXddEF1OOJXwUABhUGCwAIHk EFEiFugrSEs3JEYgQOnzcqDw ZNklLeibWVhtD99gx0IfQHZo AMSaV7yiWsGwBGXATdisuzJm XGJcZnMyMCBFOlxwYXIgDQpc cGFyZCANClxwbGFpblxsdHJj aFxiXGZzMjBcYjBcZnMyMlxl cGljTmVzdERvYzEgDQpcbHRy cGFyXGxpbjBccmluMFxzYjMw EFUrdVXNy3IzFLmnEVCfOJTi oJVLs7KlLLSMBlmmDDPaFNyn leDxLEi3oUJuHO7aMZKmspow XLB6MdYamuzbSAgwZKkqZO5f DEBlCSRgFBG2EMSkRGCVh75u nJF5clVxYyS1p22cfiOhPQUb b5tzQNy5xDXuYA6uPKTvZQlw LdFpNR9pSWEjUeWsxXqkBLLO qHLij4RcG9yhZY6gzERnUG92 tITyiLiiz4PctIq3aYXjSClh JOZbo4IurEOhCBBmMbYaWOHy l5QjM9I1HGUgXOkbk1orCXLw OUiuo5UxKKoHRENYNU8GFS1j oIY4GCyGV9PCD1fNzYZfFSQ1 bUM0LCHEScuhuSL4vUL7qV64 JIDlUUJebNUeLNrvH012ROh2 LTUsYJtpv4pzPHFzBZcrs8Bv UCtREXYYII2JTR9mxRB0BYiL R5SLVPcxSLZiAehfdVOCYFR0 XBngbKcxaDj0r5ukvRKza2g3 STxzYQC7iEexdJDposkotHPq fIpidvSlNN9YBDPuarYtqFHq cGFyXGxpbjBccmluMCANClxl kOrlAjYxzMByEdB3GEFgoXWi GHH8CX5fvTewWDNtZAh0XQqc HLWoC7LjJ3DuGMcoXhOvNUeu ZYBrAJEdHZdeBTHvH8MXIOLq REL3AbnbYvUrYTh5VSfnF7NI PKObQSV0OcN1OBByDeS6VGz5 QZVRKh2ySBMkYrNhUBC7VbW2 THH7MQTrIGTyHyKrVERpRMVl IWvluZTnVC3hpNemSbJwTRnz dLwlFLFrDGC3TT6TLSRaSyTs GbwyqyAxXXG1KIGsomRVAtph XMRhMK0IWDAgCVfqRKq2hgDd XGJcZnMyMFxiMFxmczIyXGVw eJJXJBQ5LC6yLBWABwykoBUd CVCorEpnNEmqeD1uDPVkSyIh IUWkC0uvXrObQU0RSHCuV1Ga XGZzMjAgTHVuZywgbGVmdCB1 uTAuraVir5FzYGXbTSB9GVMf nDCeLBrrWmIshP5zeQ6gAe9t Lr4eEr0jJa7sHj0rluGhXMvz LjVgXjlaSBAhVHScXS1gICbe MN63AUcnAb3wRWThRSttMfKo sOUeJALgdURcGpRem6GiPHsc lFbqDDF7BhByN06lB7QdoPPq ZXRhbGxpYyBzdGFwbGUgbGlu RAIvacCvWA39FJQgYXxrBWtb AFTsTSIjVCIyUOGclwTrbR8k uHDzENOmU9Nvl44lxOKxT0vd LiBUaGUgcGxldXJhbCBzdXJm YWNlIGlzIHBpbmtcdTgyMTEg UNt6SrLiCEW6aUKdYERzPu4k HEoqoNOsd4EiISLoOUVyESPj KR7gKPYhDGfoXNboTSR9YNU9 QGSyvLCox2hdnqonQSLaaeQN IvirJwQzERVzJ2noRlEbBOpf aGNwNAmiFCScPHyYdZAgs8Hj cGxlIGxpbmUgYWxvbmcgcGFy VC2jxCjkNIqhpTVkM6zlGMfq b1VzFiYLmBQvq0JoE9eoSG8p bMFqb4TjhIAoiEvon7DyxGml nqXvLAIyuiUvgjNvL6VhQHAc gY6shVpgSP0putchjlO6yqNd ZXZlYWwgYSAyLjQgeCAxLjMg gJEuAcQaB18ccYUgJTs1KDDw NHGkYkd8N8IzpTtwHmjyvRzx rAyfYHSzHmdxLXWebi6hhVmf KYspuIrpODPnVXujDZC8QcAf TOflKXV6YTspw4buD5L0PEY2 haBfO8Erj7u8rJ90cPExXS7z zcByBYivEW8uAO2jD7Err4ep IBTyQwOrV39zEaKcuYD9vICl ogApkaTecADpQPMyshAtcP5u hQDqODVpB9Hyu23xaTWhT6nd GZWzEsSkJ89wPvSkeMA0bDAp FbLatpQelZJyJNPqRJJ7EURf vXbnwuDiYBMbtX3hTW7zTHI4 eKLjULtpSxT6gcL5lNCidAMn e7CjLBGqbMdmsTBcNyQAnYCd bLIvznUnykOzj1KgbJ08c9s0 UQNem2h8vNE7nCNqlYrnpAZr wIQcjAVdEMZyUbSziLNaLL4P BWQodcGBPwYnOWX0ulhetu2g ynEbUCc4mjlraUXlKJ6nxEri OCLagrTtfq2fd9p2XCSeqjOr WJGdMEIyOR5gGD46dKFpoIzh RSZfovu1TQBwQLOxXab6Ofbi I6kzxO7rb7nvhSVolXhlxTuf gm3cDHTyiFLurrSoGrupYUFq ZI8anT9yKDDqr22gCW4jBTVb IDAuNiBjbSBpbiBncmVhdGVz gVUjhG6hqaTbm27rDLKpwnGH PsfeUOUmBOiSSegbI65RGYuu BedeR1pfpKbjSMWrclZdN5t9 nVKekdQwBVK1mF6fTW7lfhgk bgRedR0hJmY6iSLsd3CucQmr VHfyldT8PTLyzOJizTuxcAEm LaGfrwMfU3IsjIjdIRJlWWv0 KawwbWErTQQwQHUtKJH2NZYh dkBpd6HkqZKhClL2nGGkIwDw yjArqLBtPRQmRIE8HXIuiIfv auAeJEZtyI4ySZKrhpTIXmqr BLUpVFOfqIZRy3VhFGDUKtAN G0THU38vW23STHxgDtVwUERe u48euBnceIErRBGnzT4gLMYo MTBuV5C8USJbXMF4JXJeqGyf saBtYJMogA7xETZoDQIgC1A9 BYYtJUVqx8V0uWEuy3s2wAGb ZFcnV6YyyTEklUS8kxT8BEL5 HFJ7XeAkAWimKIDZNCzhSJ27 gGDlcWrqz6YnuMm7lFTzST6k BFOxWIVpHV8dqX7rhvsxvs5f dWxlIHdpdGggYWRqYWNlbnQg vHMkLuSfVIRdqxRzcQ9pGsEG JPkofHItNfWeEGCwxjAexK5e MCKfrjMeED18ROIdEC8oEXOb BEunW3toc2GjmC7tfQcyYA0p bxetpkMySbQfgwViNH9qriJj CZ6aICPlQXZixOUbqDEszQwo UGsfHxGaOVS8ZvLfFQxxYLNC CMGtENHskHFch0DgkVY6wYDd HOKuL3Khu09ar7JbfY4bccOt fFXeJXCsWTOaspRnzL6nLJ8n WUMwDDIuoN6nZqRNFYLwiGsv KUTyZWw3IdRoOfzpDPUutCLl i799ZLzqgC4tOUAyjI3ku1ru dSJtoIpshCcldm6eAXJ8TVWb EKhhXaYcm7FyhKExAGSdpB9s yUXzk2Rxte9iTMbMQHyen4Be YAOdpJKWu8AjWT7HCKWifIEF FFF4TD5qIOfoRYFdM8PvR1Hj etI3z1jrqPwrh8OgfVUsTS6f nYWxOD6TLVYvKxXiYNz7 Disclaimer (test code v6mopNWyYQJdfEAqMiSzATRk = 9844) LSRnp2qzHSLnpAUbOnLrPwAs BdNrOkkazEPtGRCcOhGnm0ft g466sUZlu7sjHZLnUbI4lFWo BZHgpSYcF367ULKfHQqnl9bi b6IjCPBudINni3G3PPPDfuij hTg9yYdbP36uk7O5JihoE8mp ARSmVIFkM2MlAZ6wLECjGon5 NZG9EAO6ONAjKPEkC6LdLI7t ESWoxEYlAWn1l4msaVonQVOj ZPF2m4urHUvrwlZlZA7gmz2i yIh8w4sfhjKcXHVzGNQvmBZH EKJzP6EktXeeKx9ohEz6oIoy FxswEUC1Zxi9HR1xzy62wjj5 nMjoRPFfoeitOzO1FFodHCMe tnmaMZl3QGgaSJVsyNT9ZHVd mVQhW8EzZGUdCW0pnhz1KAA5 PDarDNRyXiL8CHJvrOWbEGRs lXtwUDied029UCX6HbUbJL8c Q0Slq8O1nZ5rkUMkLGFnvIVe DrBaCWTadn5mtYZyLVncg0Vn RMX6scL4sWYzkVBjUEMtVR89 Ygpsz4BrWuptTLL4FQJrksZd u7Pmg9igCqNrahTpO8aoL1Yo ZVFcXEDjTOOcDgVtpfMwk3Yx z4XcaBXpuCg7w5ewRMFqYHZr vQsru1mnWCN8FCCyP9R3kSAs u1tmPTqiQHLjpZT6xlW9XEDh sLIhO3XrtC8pOKNhHL6ernv1 x4ixPMC6EKqbORFwUsZ7kqG5 HIOmbYFcFLUlnStzPHemh234 CQF4FrVlMEKjm7HdR4GgcKeg Y86weSieI50qUAUcfSensO3l dMstvI5lYrQkZuMxTFwucKwy eBFvwxegVYuqsjG6LUbusjhv KUZoDLfhW0bcDzXqZNUmgQpo UKzzi7FvPCNyXHRxXxmrmeU0 TDZLu92gIGRfp9FrOZUoxR7v dVApAGyiprYrhTV1YVpvbjLi TgPzzhRyZQHebB5oUCMgWZ7w CAZuqgIdde6gmdPyHIEcTVVp K2QvmhzzvLyikqQpWQSlfx7p ehClBXE2EHAFTR2OLYZnUSYa f56zAUJpaLuidN9zdZArbzAw FVLuh5VzsF1hfEEWYWOcF0vn AJ0kJQqbz8WfqZKthDQdxAG0 KXBrm1ZuMwKnhyAibOLcvXDp X7FlwCjxK5jgTFZhQNMexhDx dLSsc9VyHEDkdUF3tKEmHK2W VhGIv00eXIIqAKISdoNhOLKa oXbsmFS1lsG4sO2cLrCDBhMy pMQaiLBkZrkmCDDvo421xr4t gzS8YLWvXZJbykacs6QrWGEa CHLagH92RCAsUMSakv6mhjsc dAHkjmBcO8Bzbzf4cW4wEUUg YWluXGYxXGZzMjJcbGFuZzEw MzNcaGljaFxmMVxkYmNoXGYx SKpnY9hySpBnWhGwPxofTXB8 [facility] SurveyorPathology Surgical Interpretation 2022-05-29 20:55:42 Test Item Value Reference Range Interpretation Comments Submitted Clinical v9zczIUtHXFtk2grPADdcCCy History (test code = ZzEwMzNcZnRuYmpcdWMxIHtc 17532) ycMzCMpxt5LpI5UnXbLdEJnh bnNpXGRlZmxhbmcxMDMzXGZ0 eyEvISBxVLwqPCSzZKjqEf1n gECtpRsqCaXmGSHpm7payvRT gvaqkAd9r4wtJQOeXbC8rGNw PQfpG5hvybUepBJlFPOsIUp6 nU09DZPvrF4gqAQhJItvgzJw CgA2OHetPGYcTuN4DZDgiYBh GXHuT7qmXGLmZHadRGXgVNjy kIJbOLI2fSxnt0H2qISyaKQy iIlnSlPyNlSbZnYKy7TpSIt3 vKyxZ7MbCHKvRpA3vIJdXZBu NCnnOJYiHRMenhC9uK93VFvi biZ7vHPrx0Hnn90dh700dB5o iCNlGMF2LBQjAKMhaPYzUMMy JVN2HIUsdSIdX5ndSFNlAG2w fjijZZwiPKiiAVSlrJL0QFYo jNEeN3NdFUIjUKcgSKDpppy3 WgBnFz0trXFhgJjyAYyyy1ud u0xhnRJsExy9LEBsMgWpDnms FTvmt0Xiy9nkFHHsgb4fYMF4 uIDonPyec3I8rGEuVFLigTCk qyKbECAlHrK2LQrgSR7ieo92 CYPkFMH0cx1lxODztUsjfmWz uXXiWXwwQ0RtHZExc876XSLq N9PqRVMtf7Z8riHzKgHjLYTl eSW9zlV4AAJnWTx6jCTkksL3 izTxgSZgH7ndpI2kUDWxOX6v tocug0wkGXthHGgpUCKjtCA1 jdK8AAVlkFAuK2EcsW3oXSNg IBydSBIjxyt0ZjYkQu7kgOWt eTcyMFxzYmtwYWdlXHBnbmNv bnRccGduZGVjXHBsYWluXHBs YWluXGYwXGZzMjRccWxccGxh qU1eLcNfLcEnVBccRK7iGOLj H3nrgBWvSJSnJIArH2crWgYa qI2dgJvzJCoqbtMzLNRaSI1u S1VsV9dyi62bGRZKE4Uoy6Up dWBrJVQmdI8fZFoofUUsTiZ6 VJOfsR9kI3JiBK8nDf6jvYlt dV8dPuLuOeJdXbymLC0aRRYa T4gnzDXkZFOpZVYcB0eyWkQs iM2pzZnqGCutgpTeMQGxtg40 Diagnosis (test code t3vezFQuJJPcjFCbGLZyTebu = 34) dxLwUXEwhHAfB1XgicsrVIze XF0dGU1ngFddmMLjsEIsORXy CkWrw5ngn141ySPwd2nzJVEQ nraixMi7wBssK85mr2B2Nbki U94tfXWcQHK6OFCjYQRmdYBs ZHEuQKH2IFTfxCHyL9okRDUj KN1gwwchNFpsECerNRPcsWI9 YNIzsVAlJ4PbUIWxYVstFSZw kls3RnDoSa0buBWnkDhrTJfp XYUaDBEhIRxrOTKpCpMaKM6x XBsywJnxlt7gISjyx0ZzMD0t xOfdHBI5UphmPFXagPEcRR6g G6M0aSYePCGrfaK2sJ3bjn6w dQErNCQughVYZdBYuC0vyAAl c6RvDJMfTGU1YBIurXiboxta VARZRugrQYRexYDsYS0vQ8O2 rHTlYKZzdrC1rG7qvu7hlEYy YATqbaBZYhRApM2yqFDvm9Iv PLFtRBY9HLLlfsFzhobxXeNs LCAxMUlccGFyXHRhYiBOZWdh cQy7WCMsp9MvqIZys3NbNJCa oablGSHkND2iEIbtaHeoco9x DGfsgLYaGU6gv8G6pAFaSCX0 LYQqgbu7RAFmHdDiZHCygsYw If5eZZE9kV0kJeebMENzeBSq IMDqKDd7bTEdVC2qXJKqDRN2 MjJiodrbWDciQGy7WROjzer3 OEDiNqGsBSTvegQuUy7fAFP2 vR9iInduDJXgbNUgNYSoYHm8 uyayIMetPqPlmPWuSBXybM2u RMhvxP3pQIU1h019MsqcTMEn oIAyKHZ4eVInt0d6SOKnX9Cl qjqkHjKvCYNad8EnBajvxp4h n0buITvvjg41ntTqB5TiYYQ9 iBQvIJTtD3KnPGcyZF56UWMj tRzhpgFqP1Npd05nHJ7fWIlh BuozqK6mnR0uwUPkjMQhT2Ga LlxwYXJcdGFiIDIuNCBjbSBp biBncmVhdGVzdCBkaWFtZXRl im5meKGaDZHrJcMUdtMxRPGx XARknWI5tRZmpIBjyAAvp4Oh rNZkpRMmwiUiGttsZG4axNQk RHBfDmUTle9uV7ucUIixZW4g TEIpmkEoP1t6gAYpYH6ecuus pdNjYRKwEG7pM0D6jIVrTXFh pkO2sL4veu1bdKWxSMNkSdHA hBtkaMVujR5qfYSox3LqytAm nhCnjsTpJXYmjmObRy7zMXG9 nT8cEQpyFrmlZLXvlrr3FXZk cGFyXHBhcn0= Synoptic Checklist LUNGLUNG: RESECTION - (test code = 9864) All Xglmrxjiv2kw Edition - Protocol posted: 04/27/2021 SPECIMEN Procedure: [...] Category: pT0 pN Category: pN0 Gross Description r2refJHnEGDwiMPXCBKfQFAh (test code = YK3xdNwtbNi1bZhkUOFculK5 [id number]) kNYwUKrwb3ezZCI0c1vkvoAH KjhjOUJfUB9sHHeeBDHoKD8t ZmUwXGRlZmYxXHBhcGVydzEy NzYjVQTqwIEfdHU5GVDvEZ1u kzppLNezUMgnQBMyysE6HFLz eNOsN4ZzXOIpVR7pmympYFJ7 BFKJGupqHv5kxGPxdGgqEgDt ZmNoYXJzZXQwXGZuaWwgQXJp WWb0vV6IHaewR85kf5S1Cuj9 DKJwRQVxT5WrCS7hUTStsRXm S56XElreIEK2EBHLDdxxWopu rUtto9PqjXInRUQiNLbycWOz NTEwMDAgXFxkYiBPVlIgIiAx PJYxLXT1KvR4VRo3BRIWIIZl LhQ0VyA7USK2QAi3YWJiNQ1x QZuvfOLmHBhtDskjWYfiU186 IOdcWBCvH1GtX6HqWEheZbOx SBpoYIJjZLBuEPbtOOEkJ1NB PBYdONP7QbqxQrLyVHp3QFoi S2IKZMKxUTZ1PzE5Nin4BgK9 IJv6HXSREa9zEFRrSkQ1NOT7 PjN3XOR3VJRaUJAwTgXdHSDj ZURfXBgyrOHpEB4jhAmgNTVm KF9VAYUqJJeoLDEjUxLdCXAM OlxwYXIgDQpccGFyZCANClxw nRSvbljgYXSnVrEedVrtaX7f yHCoY0qpDuTiGmznmEqzJxLy dERvYzEgDQpcbHRycGFyXGxp bjBccmluMFxzYTMwXGVwaWNY w1HnEZTXOshwUUAiQLfdngMb HXi4rNJeCI7dNPLzbnvhCLN4 WzBmgrKuSrjkHOpsb2SaSpLq HAZhZFU4JZEnSDSZm15otWI2 xgKyTqNwZHAkBQ6pjb37hqIw oX5hgPZhw5LwSBbcGisfkWOl EdDytSFnCfNeV44aYsXcOBhb IHNwZWNpbWVuIGlzIGVudGly DBd0UVD4Rm4mgYHkVJBtujMa HEInVZS2CRNJBV9yKSguxr23 AMV7o6wqhCBsNSvkPozqsAWx bsK7IErWACYCNTaMHtMnDG1t PUxJTktCRUdJTnwyMTAxNnwx eBZLESU1FWgmgFtlbSq0o0im kGAeg8y1TXfmWPU4gW0Ku5kq kOCrHNecQjhggVRsxpB3RGdU SXYSWBoCCjPsYT5uYAsHUgyC HpA9ZwAiLEQ1JVkPS4KEuNW8 Ndg6GKe0hEkqRsybveIreRKe NrOFiO7nyObjiZ7uqUBhE5mg VuQbRINSAkxnPPAkUBAxA1jp UQZqPOooLPKmH82fl4XXp4Ni x4rxbKjdi1OfqBXvYF0xvEWa WI4Mk8liUURelQQzUNG6MAze l6fdXVnsGIP1CYGbPaGxGJBc CO5BMlBjKTPbIYZ0VHneEUq3 MKz5RO7BGxOpGRSpDCUzXOC4 JsIxMIu4QQfnYB5FIYXoDLPm VPPtJMzoLCAuNbimZVm3NBLs JZpkhpOkBDugUkhqXByaN56i m2ZrEHXqGQCqL7rcEwCsTOUD ClxmczIyXGJcZnMyMCBCOlxw YXIgDQpccGFyZCANClxwbGFp blxsdHJjaFxiXGZzMjBcYjBc ZnMyMlxlcGljTmVzdERvYzEg DQpcbHRycGFyXGxpbjBccmlu EGbqPbWkBVWmiGWSl3XaCEso MPTaOGOdtLXLk7BcDHHIRcmn QUJmRCypaoGwWPl2cKSmBZ0y ZGUocyksIGxlZnQsIGhpbGFy PMBnEMyoGW3mYGUxBIieUzOb FqnzIBBcU50xw6lwwGChr4Fl BWM4OBlqk4satDWfDPw4oFQa DH4cPXStEXUhKYJpdOhwBKEU dFDhc9NlW0jkJQ9nkIYjNT39 cRMkzLjts1AmsAp2cGOrLBfj IVKtd8PldVWlDSUvQvQwCTTm u2TwL0K1GGPyJHscu5khAHJg MKxrx6JyOAmZICKUIO8IUL5x oLM6PNeIV0GGJ9mIcRCgNNA6 wBR7QTBORjbykOH6gBW7sY94 YCOaWRAeyDCeWAejK326JQq4 VTPqIPolw4wkOCPcKAnzo6Gv QNpROSLEBM3SPC3dxNB5EGvU E3PGVZwdADSrKihweOYCQMJ0 COwwgBwrpYb2w6qygINdf9e5 WEwmLCI6nLvlrHJbkibvcVXm pYkjszCbEA9RBLRbswGuhRQg cGFyXGxpbjBccmluMCANClxl jToaMdHwsBVmLeK6RVKbvQEw NVN7AT5qzGblRZKrREs3EJqr QECjC5FqW8OySSdzLwLuQKjm BEIgMAHpBSypTZFqI3PXRMIl TEW8KmpzTeOeXMw3WBbsT4DD JRUoNFV3EoB4XzR1HlI4XAt0 WVLKNi9oNKIbQiD0EFfcBsP4 YRF8RABoDFTtXhCpMOBlEQSu ZZipiWAqII1htTvtJyFcGOnq gLhaVDTdCAK5XG2SIXPoRgLy QhnvkdZkTVM9ARLdspFNVutu IDIlTB3TVGBxENmwNAi3epJi XGJcZnMyMFxiMFxmczIyXGVw qNFJTVC6HT0dQLMDUjdudIOl TMEctGcoKFnihX9oFCMxGxCu WOByG9dvYoXoTVVlVgOgVAAd R8jrUPWkYG4BMLGuX0JfRIRg LdZeTXmygIpbik6mYUdbRSyy eKIucWuegA49JAHja6Skeijg RLGwUFVgycJiTjAvM6UaPMdf TcNpFQZsxnRzz8NfPD7lXGP5 beVhYCKpGpPzv75tfYjqxWho an9lOLMgNFBcGKFndkNnGW13 LQFkUO4eEBRiACYfsMYzfD2t biBpcyBlbnRpcmVseSBzdWJt yOM1TRJsuR5yU1Qyz5C2uOPw QzEuICBccHJvdGVjdHtcZmll xIG6FUztDlintA5alULLGMUO CuwIKzwmfcIbCP4BWE1KKqWI GF60PmHjWUT8APbYN1QVzBU7 Mbq6RSc4gPbvChpwsgZabCMp DeIMsE3KGDhmOcmdxHL6OWpo GahmvE4uqELORQLREnzBQuex euHgYK1BHV7RVW5LaRSeEVR9 eRM3KYYQLwntlJZ4sMH2qL95 SLTpIMEafHMpPSoyC431HXUc BZwoJCg0lkGxWSMvDcZhNWxh cGFyZFxsdHJwYXJcbGluMFxy kN6yXJ9KPVXzfPWDAQF0LL8i RGsoCZOwK7BnT5XbmxJ4ZKTl iiUAGnifCqabcQqkq4VskZQj XHNnIFxcaWQgNTEwMDIgXFxk SrDQMhQaOfEuPIPiQNB0VwG8 DPs4IDWDLdScLoBqIXDxSqm1 ITHiBJa0YXs3TXfPIvAiHxA0 ZIJmAXK9LNA3GQn7SJzsvKYr KCdem7VqPgTcNKRoXBddajB0 SGYeNFO3SDWjcUJWo2NcJAXu DQpcZnMyMlxiXGZzMjAgRDpc jPHhUN3XPSWftcQlNUcuzTzt tP2rcSYhN8cyRjtlorSvGPQd CUVnOlFvBQTfQ12fs4QSw5Yh UV4BRNz4zbEuvejwvP3yFEMl huKqe8AeDAkhaZlsENLbAlDu d1MrOAhcfPrlFSHjTtMzKTxq VvitGeZsQiGfBMOTgI1odHVw a6UgXESkCPNvFKGqMEKracTl SizjGrydw2CnShAjT9BrAObk Q10pj7jeqHRdm1UcgLmtMKIv jvJxYCOvv9jtGGj6jSYvML1w KVRoPaZhYUjnXoWjD47qSeBf VGhlIHNwZWNpbWVuIGlzIGVu oEfsZFb0UGT9Am4bzTTvQVPd bdKbZSQaZZS8UTSQUH0wRGcv ww99NXX8m5vlmQSkBPhnIjyq kSTrrfA6ADtCEHVWMOzACeGx CY1bJBzARasACBdAUcbiCVNi DoezkEEAIIO2QQpfwNzxuNb0 e8usxQDul5o8NEzmPNC9eO9D r4lsqASpPGkuSerntWNsisE0 SIdFESYNZTgLTzDwTN2lVHuT HyvNMsI1FgRkDIW3WQnCQ0DV oCF2Sfx4XRy2rGagKmbjhqQs cUKmOlBFhP7snEshyB6wjRDf Y5ryViOhQNDQZfkpXMOgTIg8 wnWsngjcpJ4vNYBuhhSqXOep BYAgJ06bv6YVm8Zkx6dkmGdn q0PwsKQdSA0rkEXyWK0Ss0qn SLXdiYAgUIW1IOtdq2odJXid FPY2TGPoNiIqKOMgAG2HWtRi UQRtQMX9ZTxdIEh4WHi2JV5Z KeEtVLAtCHVyQCn2BeCwOOt6 IEwtOV8FWNSdEXOlFKVqWORw EETsIilzCSi8ZCRdHJgqrvFh WEkwXptjMRnoN16lo0MbERRy LQBzX1ntXgHiBPBWBvegowWy XGJcZnMyMCBFOlxwYXIgDQpc cGFyZCANClxwbGFpblxsdHJj aFxiXGZzMjBcYjBcZnMyMlxl cGljTmVzdERvYzEgDQpcbHRy cGFyXGxpbjBccmluMFxzYjMw QZZtjXTJh8CrEIzyKRSxSOJw jQAQp4DkBPTFQokoXFNlDUoa zgYjMIm0kMGyNH6aNHBivnww HCR8HrHuxzbfTCpkQHjfHN9e VTPcKZHfVUA7NQUwQJJQj31z iKA7pxWfUiS2t87juxFuLNGn z3vkWSh2uZVyFH1nLNCgLVbr EoCuBF9oHMUbKbDalSvqTZKR jWLls1UbX0pzBT0hgKHsQA50 bLQkoGrhu9MneBi7xTIoNFke VRRft2IftNVkABDrYkHrVZUl e0RaZ2J1VSPrQXuos4lcOYKs NGzzh6MqFOzFDUJZEP5BED7e sRO6LVtYM4FUF3yQuYSoCAH1 hBR1HRRNYokkxQV2pLJ7hF38 QWRxEXFgyZPnKPjlK048TMd0 XRXhBFsrx0kyNURzLSadj1Fz FPuLCRLKTH5GKZ4bqQH9UNjP D8XHSOsuOQBmGfogcIFXJKA1 OVhxlBlpnMx1f3xygQCtl9d1 GQouFUG8cQhtuGIgpbqaqCMh qKlqmsSkAH5VRAJphnHehXDm cGFyXGxpbjBccmluMCANClxl dNkfBqHjhLVxJbU2RNDndPMf LPQ4SG6vaExcTSKqKSr7ZRkx LVVeV2IfI0BuYPfiXmKwLZng RQZhNPKzZQibGNOpA1DRAGCs VBH5FilnFuWrJZx4ULynE2FE VNMlCMH5YmV8WKKaZiX8PNm8 CMOGCn6kQINtTpFnUKN7VbC3 WWS9NKBkXXKcLjWqKXAoHLEb CYskeMMvNK7ofVqtJaDmEZvs pFciJGVfBSX4UB8WJTIcTgWe BtbgdgXnCBH6KYQggfXFWgtt UOQeBH5PDWVeRZcoLYl8cfZn XGJcZnMyMFxiMFxmczIyXGVw tZLHOOU3WC0tBYRBUvdpnNOj VIVcpHjvATklpG1xWAEmAzKj DBTbD6dvOcQzJZ4ECIQvR4Ma XGZzMjAgTHVuZywgbGVmdCB1 xKKwstAub0OlTRAyKEJ7UOGe sNSdQMxoRvJrmT1xoH3aEf3z Wk9lMn4kCu1mOm6gkwVtHRxr YsAxCxxbJYQxHKCdXM1mJOwh VK45YOrxYu6yUDVwDZvhBbNf pKOhOLTodKRyThYrx5GsNDxf hFlcEZS4RbAeT64tU7AskKAg ZXRhbGxpYyBzdGFwbGUgbGlu NVHnoyStJS60DLDjCCefXMfl EWHnZCZuBSDaTGXsseUsbI3l oIEeLWVqQ5Lhh09osREcH2ie LiBUaGUgcGxldXJhbCBzdXJm YWNlIGlzIHBpbmtcdTgyMTEg FMf7TlSuTII2wGZrOPVfBi7t NFhddKOkc4CxSVVlSVNpZCFw ND5eQQFiVTokCQgcKIT6DKO4 QHDnkLCky4cuufcsLZWqjzQE OnqiEhDsXGEjH4mxDrJdHUvl aILyYLftPDFeLDmAuOVbe5Ht cGxlIGxpbmUgYWxvbmcgcGFy JV4lqNyzLUhyvEToE8sjOFuy d2MnMzOKkTQlk6HyV8vjZZ8d gPYar7NlvLMobQics2HhlQms khIlGDGfpeYdjqHbH2ZmKLFm aF3sfIxxHD9mreznylF8owAy ZXZlYWwgYSAyLjQgeCAxLjMg fYCsGtBjY86chQSxLNb3GBGn XSUdZmp4H8QvaOkoNxudiSlp dDxdCBViRbriEFQnsp2ukZux JLfgzGqvWDAuFDwnSAG8LvVt DLurXEK3DQzrt1vfC5S1CEN5 wwDoX9Vue1v0cH50mYNzDP1t gfYaHXqrMK3qPF9oG8Zzn8dk WGVsIjQfL82qQpDgkPL7kOWq phNllyXmcNPiDYTacoCcvM6u bITwGSRfK9Vhp24aqYRgJ3ds FLGeQpKoZ68dOpEjoJJ0jFGh TjVtfaSxpLUzHCMdXSY4MMTd oVviyxYdTFZgnP0nGH5fGVE9 qJRrDIyfYzK0biL8aDTakJWe s1ZrDZLrrVvwsRRdNwQWnFBr bIKladYfwmZuo2FtuQ47m6q9 FEScx0e1iTK8wGBqmOnpbHVm uHYhyYEmENKmDkNyuXVqJA0U IZGbwzHUIuLyMDU6gbrbwn4y jsWuOTw6qjksyMBwQY9tpGbc KJOaeuAsmn7mn1i1WUSrloXy LWJzOSXvSF8gQG28bDFyoDvi PZKqkeq9ETFyVRNvQga2Hxhn M4bwvA6yw8cbdDTekJzlkFkt yq5nXNHulFMcmyRgTsyzEWUo JS5okE7aGDZgu10lTL1mDHYn IDAuNiBjbSBpbiBncmVhdGVz sTQuvN6bpfAvl01jMQGdzdXH JiksCYByDNyTZvqbR42BZFru ZlriM6eeeRjuOHPmxvDpY1z8 qJYjysFaEKJ8jJ1mNH8huhhk dwCriZ9qJdI1vLBdt8XgaYzc QFvrrpF9JPNdqSHyfDusoRDz BkGqsuNcI4RzcAahXNQdFNq9 PrgdaEZsVNIeEASmMDU9JDWk onNrq5VssXViNdU3wNDqQjTo blUeiXYfUWRuHMC5TDVmfPcy bmLjXQYftZ7qUFNoblVRPpkp IPZzJFInhYPAb9VjDVVSLkUQ L9WKH84xM75OFAbeIyCbRBSi m02bhPqhpJYcEOMbwV5bWUCg SIDhE8W8OLGsSEX5KVVdbTcb huDxJVVevX5oMEOjXOKxE9U1 TACvDOBvo2H4eMZly5f3jDBw FMtbL9MeiVYkwQF4yaN8UVM3 IMD9CfQhPNgtTVTCEBmcZM47 uJBhdZudh1BznXz3wTTfNH6s PFQxQFQxCY2sxK5xpkphoj1v dWxlIHdpdGggYWRqYWNlbnQg fLQcVrWyYKTyjaNydX7xMtHJ ZKcicFWqKyYzQACodaKqfL8j LCPmdtCgVC07WKHcWY6fMOEr ZQstO6xyo0OonL5djUyzCV5m fhztrcXjVeXuniSoZM7xhmSv MY4yXMQuZGLnuRTurRAarSdg BGpeLgLdAHN3XmYjMFgmJNNK DYQdXTQxgICxv0JkmLN8vCBr DAOqR8Kml03ke1MrrN5ujdCo aLOwAPAdSJYjlbRniW7tWO7r WMUqNZKyyH8yGuUBVFDeiHoz WRGaLBq9UnBjYsyqALYitEAa v672FIoqfS2rUXEoxE8pi2fk lXBwzXjyhZrtgb5mEHZ8IVTs CZvlNkVyd1XgaSRgXYVrwY1t kHZrj0Cpeh3kCCqNRUstf3Ah UADsmQOVg8BxFA5REGJkfASV ZND6MI5yNGtlMTQmM6CgD4Ep tsG1f3cwfXmej1SymRVqHJ2o zZHdGP6REAZmKfWmILh6 Disclaimer (test code y9famBXvZWIfgDGkOwCqTGPq = 9844) BRGhn5ttGJOywUPvEgDmTwFl RjUvQbdymTTiFGWgMnXyg9wv y603xJMpj8eiSVVhYqC8nWDj DUKwcJRvP917ZOTaBPmph4jk n8TzYSHprHKvh4P6BHZTuwxr bJk2sYkgR92eg2B8LlnvT1mv EOEeWCDjQ3XgAL6mKRYkFye5 UWK7VGB0HEWtYKJqL8IqOE7p YGVmoFJjOPe5w6ruiEynKYRd QHL6k6ekEWmseqUdUJ2mtp8z fPr5n4wjraIgBVElOPExaCHW XKZoQ4ZqaGwbTn7zoFl5eUio UjfvIBR8Rln9VQ4xaf08uck0 yMmgOEWzndaxRgH7DFahGZQi vuewUAe0ZIqcVYWoxFL5ABSz kRDdI3JcDINhRP2pmuj1BTC6 FVvkIDFzLvE1PVVxnGLzJHGz pEtcZApcx384UOL5LdEpLH6s X6Ofv4S1jO1chKMrVKNoqUEb MaSoOMMrcb5rvOPwPUxkq9Vv DUO1zeH5wCOkcMWwYFTmKM50 Xagtf0EkMlkxAQO8HBAammKv k0Eqd6liZcMaeoJyK7taQ3Zj RSDuJDIzLXUaSuToyuTow7Iq p7DtoBVkiMv8a5bdQZEmOVCt cUorm6fuVKJ9EPWaC2M6bDPo e5gaVAceZBRofED7wxY2EOMu tLNuH5TewY4jAGKaCZ6lsdi4 t6flMRH0WJznHMCmAgU4xbR2 QRGxpILzBCHrcScoGGwiu064 MLP8PkLzCORlh4ZsZ0VcuDuc J11bpFpcH33vSLWifNttzR2s qCjwlP0tXyWkGkKnAArydYwf sMNupgviLKizioD7BSksxsdu LRDfFUxuM4tbMtVwYSKzmSnd HXbab6PuKNDqWSGcFlxugsI2 QJFQx26fLBQgj7MiXJBwpH8w uQPoEEclcaPkaPM4RTfdxbAc JdJmerZgHRAtdW1hWHJiCA4v PDEvyaGnfm9idoXeQARlCESb G5OxnqopaXvymwTzPWVuuo1g wyLqTPX3ZDIROG4PQZWfKGKx f60eOEYlyQajrT8blQIbjuFp WARez7LlnB6cwWZXBYUmH1jc TN1pYUrzm1DlaDMxwKZipPE1 AMSke3CaEyHjidVagSLhxYOd L6ZfiHuvP6ayDQHaIEQtysQo fSApr5FyFMZshUZ6rAJvPF4Z UeVMk87aUNUsHLSDpuQlWHMd cPxkaMP8noW6oG2eVxQLPoQx sBYboQTgIrneGXGkk279rh8w uqX8XZYrZMTjeqano6YvFTGg UINtoJ03OZLuRUXwye1zlkos bQWlreOqB6Ymjvx3bO7qQOKi YWluXGYxXGZzMjJcbGFuZzEw MzNcaGljaFxmMVxkYmNoXGYx IDwjA7tiIaJfThDlLgpjFPA4 [facility] SurveyorPathology Surgical Interpretation 2022-05-29 20:55:42 Test Item Value Reference Range Interpretation Comments Submitted Clinical n7azlOZaHQZvr2rxXEIzhOUe History (test code = ZzEwMzNcZnRuYmpcdWMxIHtc 70301) wvNnOKemx4LtN8RjUpFaBXno bnNpXGRlZmxhbmcxMDMzXGZ0 lwEsPWPlJYxgAZAtNDewNg9f mMLcjBqnYjReXEFpb8abttFR tajiyRg7b1bmADHpKgF0aBJd QGuqJ5tmohJyxPLcIUUyYSy1 uG77WHOxyA0nqSXlSFeycbYz WjI2KXeiDTRwRuU5JKZfkXIj EEPcF8skJTCeJRszONYdTTwi zQUrLOP5zBotc9T4vXOleOTe hThxGaTmXkNlVoXJn3WrUIh4 mUscF6RnSFSmJjP8sDNoEQMs FRylIRSaEZGncwD0qY00EBdz ewD0sPQug4Icx17wx578uJ7n bJGoIZQ1SVPpTIYlnMOiXDFn PVV4VYXifBOxT7hrMKCyET9b wfnnUQkkQYgsQPAewQB5SADe qJRsW9ShVLHxZNakGJKjelt7 HrRqYp8kmHNteIhmJQoic9tt u9rlgXBjQgg1HQSnUkRxPvkc AJpkh3Lyx1hnSRVars9pXVV4 xVWciTdds6H7nDQdEGRtlNKp vfAsTFHnFlR1QDomJP4mmm48 TXUwFXN9qr0ueWDpfKnluaOn oYPvUDnfW8PoIFCpk156MRSh K4AnZEImd1C6ncHuXaMvRAPc rXM5gmC6DEQoPAj2iATrsxD2 vfQelVHsW5dyqA1iYIOcHI9a oagim3baYEnqAZrmEBXgoRX2 ewD8PEVljOKqP0NxcI2kMJFo FTfwSKBwlop0VrSsBz2uuQBz eTcyMFxzYmtwYWdlXHBnbmNv bnRccGduZGVjXHBsYWluXHBs YWluXGYwXGZzMjRccWxccGxh qM5qNhJoEmOzWOesVO5aWTIu O3jbaUSjDNXyEJGmQ4mcJcYy aR0puGduBJnkodWxBGYzND6x L5AhK9jfx49bFRZAZ9Phs7Xz hUGvBGVieJ8vPVdwyHUqPrQ4 SCIqaF5dU6XjUS2xVs9phTym fM1bMqDbNgKbWgzrVQ1bZHLw I9nspQKtZBTwNOJeF6bkWoIn aQ2mlArbFCalmoJuAOCikk54 Diagnosis (test code r4paxHLaONVorQAsUIEwQrgj = 34) buQoNADwmDQgP7MhaeauSSrz OW3lGU6isMnjxCNrsLWeCALb WuEmv3gqb963pEDub0dzZLNT pfzeuDt9jExrZ55zm4P3Qhth S53pmGUkOSP9GIUuHEQrnKJd RLFjRMU8ZOFztPFwA8ydSZMj TD5ftrqyPFqqBIfhPKZccTR1 AGExfCBwU4GkPUOzWGpeSUPy eji5QgXvMm8bpOJbdHpaXBxg EIKnFXRsDSdyFANaNtZhEJ4p WNxilNkwyi0tQCdet3QuWN4i iTviLDL3AwpiORXtiLOyGA3o E9A0uCTtCTNkbcZ0yU5wic8b kVLiEVTtzbAGBhEMwD4diWDd a3EdCLKpPFU8EFRanDvgfyrl YXPQCbnxZITyhIDaUY3kC3Y2 fWMfFDZlggG4cV3jzf3xeTQm XDVxzsQUMjAEyE0dtNDwh9Bd FOAoMTR9PYOrwzOkpgpfVtKy LCAxMUlccGFyXHRhYiBOZWdh cKv2FLDth1TztNZnx9NnPLXg rpmhRTMaER2cDZrhaRgpru9n ZWnkqNWiWN5rc5G9rZKoNYL4 LETqtyj4ONMtObLnKYHpoxJd Ij3gMPP8vP9qQobvOSAacNRp BBVaGYa5qSFtMH4fIJNnCRU7 UdEqiutiIWlsBYs0HPUypsk2 UGBgHhSeNDPlepJlTx7oYHW5 aO0jOwiuSEYugABfRWTvHVe9 uxqtIVzgHjMkhYCsMCDpzQ3g XFswhV7kTUM3u595OlvgGNPt jNMtVGZ2gNEif0e0NQOoH1Nl nakwXoAsXZDzq5IoObkboq6c a5yePHbifd76enNtJ9StTSS8 mBRpYBHgG8UeDMrmAS98YVDl tTstulNmA5Cpv96mFH3tXMke WwxdpT7nuZ9cnUQcfBGhI5Kl LlxwYXJcdGFiIDIuNCBjbSBp biBncmVhdGVzdCBkaWFtZXRl it7jdOPpCAZfNsXZkrPuQTCh GMEeoKU5mSZxeSBgwCEgz7Is sXOrtRWcmnCiEwjzEU2llELx SAQoMaEFke1yA3lzKYnvDJ9l HTKqtbTgQ7q1kUAgNO3hmwjj zoBbZGGgQX7yD4S8wLFeWOWm daK4mD8dgr7tqBUbJPDlGpTR hKzwmECvnL1eqMIsa5XbfoEk cdRlehQtHDFxvbGlJm6yWTM5 gT6fKGyoHdgsZYRlabm8ZLTr cGFyXHBhcn0= Synoptic Checklist LUNGLUNG: RESECTION - (test code = 9864) All [employer] Edition - Protocol posted: 04/27/2021 SPECIMEN Procedure: [...] Category: pT0 pN Category: pN0 Gross Description e9yigAWaJDUrzUSAZPKrDPCa (test code = CF2knPuqaOv0eIhmAPZtjiV8 [id number]) cANjBIemg2kcBOV1x1vjdsHY CzvmAIIuZF9xWSuiUMQbMV8p ZmUwXGRlZmYxXHBhcGVydzEy IiUuVKXmhKVhqXM1EVHoPH6n ocreMPgxABgeVBHxioX1AMWw nVAeR2MsLRMfVL4labwnBUP9 GYNNDxsxGe8qkXZypMmgSkZr ZmNoYXJzZXQwXGZuaWwgQXJp SKy6yJ7MKniwK00hx0Y2Cwt3 TKQkDPImR4YsCG4rEYCeqMQq B70BUwbfSQS9NHGZJfijEvid bKfqg1JznQWaFEPwWSvgzNLx NTEwMDAgXFxkYiBPVlIgIiAx DATlNMY6MaN4OPz9GHLBAOQb SyA4RkD4CJM1PYz6WCYoBI3m LCczpIEmCXcqYpbkEQtrM069 WWyvXHLaS6ZiV8InSVloZiXm SRmwYRVzOWPnEYxwDVRuE6BU FQAjLGC7QmrdHpWhYIl0VVxn H4JUSNYlJEE2ZmY8Qww3LbD0 UJo6HNALAk5pUTKqVcE0IXU0 DjN9MPZ5XIYrJXBfMuLsNSWv OHGyFOdalRBzTD1tvQbwURPq GB6MPAYtHHclCIQwAnUmKNAH OlxwYXIgDQpccGFyZCANClxw jBZxxenpMOFcYtJcqRbgfC2i lEKzM0eqRoQaLlvlpJrvXvVr dERvYzEgDQpcbHRycGFyXGxp bjBccmluMFxzYTMwXGVwaWNY k9YaYLPCTsjeBKUjYHwacaYa VOw4xDWrZE8oFPGenufiGKE4 HhYkgnIePsqbFPplr8UrKzQl YZPlVVB0GYWwLBRQi75diEL4 lgGhYdJnBNNwWT7kfi60dlMn dU9dvJCqx5TpIGetWwmraVLt CzVdrGMuPmAeD61cGqVpNIlv IHNwZWNpbWVuIGlzIGVudGly MBa2RBO3Em9nsDLvGLCbexPh MXMgMYG6BFAKMF3wNLjodi43 ZJV5o9nemMMyVAmpVfbkgAZs xiO6QQdVQEAFXMvBQvWqUZ7z PUxJTktCRUdJTnwyMTAxNnwx oESERWI9BHuqwKppwEi4l5mr vHBbv3v5HHbaAQB7gI9Gq3xf sEAcQAwoCprpyVFzurF4MFbV QSPNYWnWSfZwCG2gBFnGZxoI LgL2BsNvSLD9XXhYQ7BOgJZ4 Pzm8FUd6dAsyGkzyahPfzJIh BpCDbA5jpBtcyN2kxZXeJ2sc DfZmTESCGpakKRKnXGBfU6sh DAFoXOvdTNBwZ50vt4LDt2Uj i7oraHpft9TleRPoTL2diFUd YT3Jx7rgBMUgvWVmWNZ4NQal l1nyQFwsKBI4JNUzPsTgKNRz UC6OEqOnSDNoOQE5OPcqRAj7 GZh3ZY3OKuGcIVWzPWGtODY5 KtDmPWv4QQseNH2EKUHnIKXn GKFaENbdUMXxXkexCVg6CZRr POhpneHyOCxmElauLDmfN14j t4SlEEAoTBWbB9gvJnTjCACW ClxmczIyXGJcZnMyMCBCOlxw YXIgDQpccGFyZCANClxwbGFp blxsdHJjaFxiXGZzMjBcYjBc ZnMyMlxlcGljTmVzdERvYzEg DQpcbHRycGFyXGxpbjBccmlu SZctSnQkTTCtuOSMh9MqQLwh KDJmSSYslGQIq0PkRSELTulu FLGqZHfcheGoLKf7kSYfUY3m ZGUocyksIGxlZnQsIGhpbGFy FZVoKApnDE1cBVXzNSqnNfZe PkdqRZHiZ08qx8nodSQdd5Om DMJ3JHsaw7ibdXFjKWw2yBEg JI7tSNYjSUCxFTCvrBupOQWO bZViv8RtK8rcWB1kbQGxIZ24 wVQwiPfkk9XuiEh5eIPzDLsf ETNwu4HqsKVnXVZbBiXcMVJs z9RjE7G9QYSlEOnfo6qoNDHm VLhlb1EpDUrSQBUTUQ8ISF9u lZO1PMkKY5BBF7iXxLEcVNH7 gBO4DUHAQbukwKJ4mXZ0mS23 XNYzHGPreTHbTKgoF199RAx6 OCLmHUgbt1faCFVoZOweb3Ih OCeZDCVQFP3KDI6lrJI8BTaM C1UJGChqTXSbMafkqWQGKTV9 KWojmSjmgPb2k0sooDPuc0g4 TGvoLZP8wDmwcOZigqvsgPGu wBwivbIjJS5OXMQiuzIieNPp cGFyXGxpbjBccmluMCANClxl qRfiPvNeyZWoLwD9OZMzdBOi EKT1NY8bsBbxAIDsOHp6YEff IWBrX8JbR5PzHUqfFaSuUWkk ZZSnGREdOColXWReA9BWDTKk MJA9RewcKzFrIWc2AAunA0FN GRKnQWP8KrU9VfM5FqP9BOq6 YWLSPf1sYTTrOaD9VIepUhC6 NWK1EIQsGUJoCuHaPWUwKOKc WXhaxDWsWB4baNhaEbOaGViw lJlzMBGpHSV3KQ4AFHZyFkBa ThfnjbVdIEC3RGDunaOBZvwg ULRmAX9WYRFiPEefTVe8etDf XGJcZnMyMFxiMFxmczIyXGVw sICJVND6XL4oBNZEHvwjeXTp DZSyvCyjYDrxzV7fDXXlNkTb LXVqL9mbWvCoVYUnAtHbTDLf C4utAESvWR0KFOLsS0LuOIPq SqNoXBpukTcdqq3uQYmgAZbq pXMvuFxlvW81JTRlp7Poxdzo EBKnITKxocBqQlGzP4AsEMgt KwNwSWSqnvCev3TxRS2qDKT0 dnTiRFKhUvAye64pwSzamOtk qe3sOBUsHQOzZPWapmJeUU49 BFLkCA0dKZOgVCLbmQEdzK5e biBpcyBlbnRpcmVseSBzdWJt mVG5TZBgiK9kF8Dya9X0vBLu QzEuICBccHJvdGVjdHtcZmll wRY3TKguVhakvU2yiNUCCKBH QlwBQkhetmQlTR5SPO0LHkJX CQ53QbJpZBA0WRcGT0TSsTK0 Qfu7EHo8qMdhVrezpcHcsBLb HuALeC2CKVniTgfjtRH5UQky FbmpsU2fsGUEWQSBXboIVock duWkPZ2TTA2NFA3BhIXoVEE4 gQK4BEKVWqvttJH5hDT0nU73 HJZySCSqtFIzXVreS650MBOf TJqaDZp1aoJzQKZqMgHeTZpk cGFyZFxsdHJwYXJcbGluMFxy dN6mLT1KCFXapCAVRUX5TD0q QMyoZIElL2UpH1QdkyI0TPJu dmUTUawaMxkzqYcsb3PfgVXd XHNnIFxcaWQgNTEwMDIgXFxk QsXIHqAiYuZoAYZtZOU1FkH7 JSy7TLAQRvZxIvRmKMFiQgx0 PAAcWYp9YLg3DVpGBdFzZwU0 LURcVAY9BEZ7DQg7XZsalSVs QEzol5TgUyJuOTQoUOrrnfH6 LCHpDWE4QDKwpENOn7ErWXXz DQpcZnMyMlxiXGZzMjAgRDpc oOGrDP6ZBHJxifUwRVionSly lV4ncMRfE0muHmzgpaGtDHTu UTZtHoNqXSHuC78jm0XDx3Je TR9BXIm8jqSjcitwgC6wVSMb byTbk3UrXXqpfComNWUoJgHe e6EgTApvkDdhDSCqWzOwVCds UzqzEqDoMyOgVGWDlW2vrEGx x2CqLDRoNHYaQAQlHGWntsGg VyjiAgaae6SnRdNbS7XiJHya B51ay2hxwJBzh7JcyIwcBVAe dnGnUNGmq8yeNWt2vRSnSL5x HVNsSqOlFUzdHmFjY03jZeSl VGhlIHNwZWNpbWVuIGlzIGVu fIteKAy3NXF3Sl6jrMWsWFZr lrOvVSWeLOS3DTRIUP0eXYgh op20MUJ4s1yfdKJhTDbvOqub tMLhidX6FLxJHHOAXOcUScPy FN6yWRpWTzyHONmDYksaHEHh PguwmVITBCN6YJlkwPuvkVa7 f2otaAQcb7o4WXohRFE0nU4S g0muaPPqEBzlKkbdbBEpcbU8 BKpPHYLQFLdLDgUzFL0tGHaC XddLRlW5GhYuFAQ2ZOdFT1IL sTE2Qlm5NFa2sUydMuvlilUu kYTnRrDZfI5ssQsfsE0qqQQx E4kzOxGjAOTIVvzkPFYbFMf6 xkNcmofbfU4hRBZalkOdVPwg ULQwX19pm5CJh6Pro3xjwDei v0FhkQMkCF8hbXSvQQ8Dl3hk SONqtJFnCYX3ITywo3yzFRbd NDW1DBNcSxHvIIBrDM5VYhWy QIEvDQV0NWnjWPd2YOr8PC9R CdFnFAWbWAEgDOj8QiLnPQr7 QBmgMB0MLSJnELAiKFBmHCPv WMPjAcdrLKh6LXOoIFrbmoOw WJerIhjoIXofM45vv2LyTPMa OYQjF8gwHwChDGTAGqrclaRd XGJcZnMyMCBFOlxwYXIgDQpc cGFyZCANClxwbGFpblxsdHJj aFxiXGZzMjBcYjBcZnMyMlxl cGljTmVzdERvYzEgDQpcbHRy cGFyXGxpbjBccmluMFxzYjMw CGZtrEHGg7ZaJBoiGUXtGQBb tUANc0JrGVLFCgryOJKgGBtq wiXeOLh2nFUxKZ3pJLWimveb ZJR1AgVcinjvLNsrKSsgAZ8m MCGuOKZrVAN9OONcMEIAc45q lCN7heFdHrU3k31mmpKrTIHm c1soTSs0oTFlPM8vMTApETxh CkBsOG6kUKVwMuRxvAguEJVR zUVtc4SbE8owKE0jnQTzUY12 dCLfqPbhv8AziAe6aKHnZJse ONMix3NqmRKaLCBlExRjKVBv f6DaY3I4TDSbULjni4otLWAu EEooi9LwQQsWNMHCGK3ZLC1q eOG6AEtSV7XOE2gDmMUpNBM5 pXY7ZFJSRyzpgSG6dOA4kJ60 OMIyWYKuuWBnNLwgR596KVn9 TCFbMYhbx0jbTNZnZQmox0Ro LHiEDWPFZN4EGP9upGC9JHeU A7FRQBeuMQGoGfwouCOBCWO3 HEievRynoNi5e4dxoFKng5p9 BDruRQX0cVxljPQhziikrNTo sCsmuiUuBT9GYCUrwsBlzUXk cGFyXGxpbjBccmluMCANClxl wQbkQyLcgFJyEsH7OYSroCYy FQC8IW8yuFbyTDKgPXb8JOjc FTTeA4HhH1BqAAfiEwEeKQot ABWsZZTcCSbvXWVmR4KRKAGq JCI2FuouVoCwBHn7OVwuL5HH RGCgCQE4PvU9SBXaUoI0QBb0 KZXTIb8pIDZeRrRyUFT8TpO1 JFW4RJZaJXXrVuZsNCVnEHPo WFclhJFkER6ktHqeLtAuSRru kOcgGBEgZEE7IG6XTDGnBtTj SgnfjtEoPKJ1WVEkleCMFsxi CAGoTY3PLWVrEGajSSs5itNd XGJcZnMyMFxiMFxmczIyXGVw qVUYAYI0AC5sLWIJRlvfuKNv CHOtkYdlHAjheE0kHNTfQkNt ECPfS4phUdKyEX7WCZGpS0Sk XGZzMjAgTHVuZywgbGVmdCB1 gQSgazRuy9VrBCQxWBC9HPOn lXMwNBxaRwJrqG9icA6tVb4w Pl2qOh3yYv9xOh3qgfBeFJfg ZgFxYuvuBDJmWVIgRG9iFGol KI16AOnmXm8fLIZcIQmkOjBt mHDwRUQmcMVgAlHxg6CiJEep aSvcTRD4JlEnA55qJ8UoxTWi ZXRhbGxpYyBzdGFwbGUgbGlu SGKbkvOuAR55JUGnUBmdJTes HSFsLKBrQHGxENZsggFavT9p bRWxLZYhW3Nmd06mmOFrW1tw LiBUaGUgcGxldXJhbCBzdXJm YWNlIGlzIHBpbmtcdTgyMTEg PZr0YtCvILY5wBZrRXDdPb5x YDoycKOnh3UoOHLeNLCiCIBt XI5pZQXdNUbkGGjbROF5GMM3 MCGwkTOsx1evyhwgKZZdtxSD WmpzAfMfKNBdA6nrBlEsYAhw uMJyWGifHMMiLBjAxCLqe1Tl cGxlIGxpbmUgYWxvbmcgcGFy YV7awVfmTDgeuWHqR0jqTMpp g5WoDbGKlSYee3FhI3neLV7t mEQog1BzoABmoJdsy5LajPtb gnCnFDDjnzIfcvPqG2OdXIIo jL0rhWskRT3wpwrjepC9yyJi ZXZlYWwgYSAyLjQgeCAxLjMg kALwYlYfP47ecBAtUSc5OBPt HPUpLkf7D4XsiNreThuphMxo hEjdNMAtXcznDTGwrm7daWdz CZunwYobRLRuANuiJVS0VcUk OEadOXZ5SKodj7ibG1A8IXO8 xzEiW4Dry2u0sB28iOXmLE7c hoOjZDagUL8fMP4eE8Lsq5xl MQLmFbAtJ35mFmAmdNX7gSKv uzFgrsHhsYJrTETjlyYziO7s iDDhOMOpR9Qqc98lbQAsU9yj VOOkQhTgH88vVaRmzYH8lYId UoXzhcGfdMVlWLEtMGW6TOYo iDhhloYbDECwsV8yQO9dOHS3 pYQyCEcdRxC8oxF9kPKetEJe m4ZuEIIsoDcpiURfWoSExJQk yMUkouGksaEba7EbaV25x1v2 GWBke3w5kFS3dMFuaBqhjBAh mPYpqZXbHRYaNnCboPJkLV9P GIPvuhIBYpWsKZJ0hcumao1y paPrPJi6mlbsnLPvQE5iuPcs ZHRaxmGsjx3ms0j5CNWxwoIb CDPpMMToHP3mGE23kPIzkMaj MHOpmzn6SFXzOCEeHkz6Frsp I7utbS1fh1topZUheXtukVoj ts1qFPFouLKjudJyVuroBYIa RJ0tlB8zYTYps90oUZ8cBSBa IDAuNiBjbSBpbiBncmVhdGVz gIBntR9vabYjh71nVBZeroIG DhsqRZGiQXqDWeleL96OZRvp BtivG1dryUazPPRlatVbE7v8 xITublDqFHB0bW8bHR8sjcxt toQalS8kEiF9hWDvo1EqhNux YFncoqA3EQMkmUQpjVtcaTWk GkEaqfOqD3MglIyxZEPbIWk8 GlutmQYgNULdOALlNQK4MBVn ggOcd1UzhREtKbA2mEJjMfSt cwCqqNXrKMJfBSI1IAGsvJsc gkScCQZpmX2zWKSdgbJDWttv EYKhSNJqaOYSk1UsJUHNAyGV J7MAY19vA85XHLwyHfGkFUFl r47rnPzikWXxXGDaaL1gWKHi XFGgP4R6TLPvSXA6KAPmrBri xbHoCWWtmR1aXDMcJUSkD3D2 RMKfSOWfi7D5vNDac2f8hBYb MPlnS7FhgVZmjDW6wxH7HBE0 QCJ1HkPtYRxlLFUPDXpfXD19 jUOjfLayw0ThiHa8pARqVE1s UGGxMAXnQI4jnQ2qhtrsta3r dWxlIHdpdGggYWRqYWNlbnQg dVRrPsQlTKYspwErcT6gZcQC GFydnKSsBzDrWICzebZipA9e DXByosExUY22KIEkTC2rCVPu SBerO6xnf1IxfD3fdPwpXH2q extlsuYvVjXukvVoVQ7btyJr DW4eSLNnPHPmgZOxlZFhkXbn OIxlNuClRCJ7NaIgAYqvGABD PJGvVDFsgKJge3GvsAW4yBUh VGKyB6Zjh51rf0RoiI9nkzFd cQJzSJGjJKMgbzTjvD4jHZ7h SCOhNAVnpK9dZzSKRFKnaSsf ROXxFCd0GqEeTsojLXYueAEg a987EBdknW2bREJvoP1we2xw lOOwcBizvAvbao4zSHM5YXDg ARjxOcPrj6PyaPNkMEZlvS8i uPEpt9Aluk0ePZfJNPjpv5Fm FHOmoOOAl8OwUV6NJQQhoXJQ FZL6DB2eEWeoIBNkO6VnA0No dtQ0k2vjhRyfo4VssNHqHQ2s uORgQI1LPSVeKlAwPZk9 Disclaimer (test code s0mnjUMfDHRscTBmRzBeYNZl = 9844) IEWgy6ahVPBbbXWcXeFnRySd ZdRhWtbggECrOCLlSjIry5kg r379bHAdb0vhAJFiRkU6qFNm FIJwbNNnO909SAOhYZlmz6nz d5GjNSLnxXKva3J7IFFGxnop lGx5aTldV99xh9Y5NlnpL9bv BFFpGJAhM4MhBP2yAXFuDms0 QGL5EJO8RIJuUKVfY9SfXY8w BFZwdRYaMCu3a8jptMwdPCJv ZLX6v2daCBtctzLsTI7uyj3l fYe7k9vebyVsGUAhJJFakLIX LBNnW3LvfTdsXf3hnDi6qVxe HyfjXOJ2Inl2LC0frw34iwr7 kSnxPHEmbsnfGyI3MMnsYYLr ygbmVJs1GBzaVTLplCD4JDAt rRBeM0AqTUAvUI9asbq3VGZ6 JAasFUXjXbZ4EEStlDLcSFDz aPnpZTpwb480TRB2NlKxJT4u F7Zol3Q1zC1rzZGsOVVepVEt QtEnDAVwhi0dwKPcDHtpq7Je XYJ6hyC3mLPcvYJrLMMhDL83 Xavjb8IqBlbwCVE4XAJpzvTv y2Bdn3bhEhIfwcRcY6qxE1Bc DYAaCPOgXKZsExGiqtZam2Yb n5FpaQPpsXh6f3zkILQzSCAb sSsho1usDDX0YFSjB3W3wCGc r7fxOPfuLTXelDB9moU3ASSy wZIcG0JcfG5mKEKzUM4gojz9 x9jiRBU8ZPaiNXTnThC8bqJ6 DUQtzGNqBXAbeFaiAKeua928 OTO0HhMuMICrl2TxA1DjdRdz N93jfFzrS52qXVKrbQahdX7i jToynW5eDfMyNuEpMWgqrShx pUErttspGNehtdM2LCzexewa SQDtTCaiH7ieKsKoDHOyyFkh UNjrm7AdRTAgTAApQnobzmM0 LRLGa41eFXUlj4KvJPHooA9k qWFpLMwwrmSdcTQ7SZobfpOu KkNdguIdRFSjsH0yYNQeZL8y QDYvhsGbxz9wwzWtISVeVPSu W7LnzvdzfWyacpIrHKAqly8l rpBqWCU8HSEXCJ8VMRNcTIQb j66cCQEcbNyuqV3qvLKcjgXa LXTcz9QmrR1ncNJMLJRsA4to NG6rAKdmb0SluDOebASdhJW1 ESQox4BgAySvnyOsiAFbyIRv A9ZuiSukX6ebYGRgGBOwemZe lNAaw5LqEGUzfQJ7iSWmQF1I JnBDm62nNLSqFHLRxwPzLGUv oTtkdMQ6wuU5cF3fHbGXCvLi nEAumUAlLuqyJRXtw056mt7p saN6FCUlLVZlpxatz3JfCCQc NIIigN55EGFyTPHelu8ifqdh nUChmtOsD1Svvwj1lQ6vWRRu YWluXGYxXGZzMjJcbGFuZzEw MzNcaGljaFxmMVxkYmNoXGYx STlbH4ifGkRkCnDfLjyqKQA8 [facility] [id number] 11:24:24 Test Item Value Reference Range Interpretation Comments Magnesium (test code = 30356-2) 2.1 mg/dL 1.6-2.6 [facility] Kvfdm7261-32-02 11:24:24 Test Item Value Reference Range Interpretation Comments Magnesium (test code = 64856-5) 2.1 mg/dL 1.6-2.6 [facility] w/o [id number] 11:13:39 Test Item Value Reference Range Interpretation Comments WBC (test code = 6.3 K/uL 4.0-11.0 6690-2) RBC (test code = 789-8) 2.89 See_Comment L [Au tomated message] The system [employer] generated this result transmitted ref erence range: 4.00 - 5 .50 M/uL. The refer ence range was not u sed to interpret this result as normal/abnor mal. Hgb (test code = 718-7) 9.5 See_Comment L [Au tomated message] The system [employer] generated this result transmitted ref erence range: [...] See_Comment [Automate d message] 786-4) The system [employer] generated this result transmitted ref erence range: 31.0 - 3 6.0 gm/dL. The refe rence range was not u sed to interpret this result as normal/abnor mal. RDW-SD (test code = 67.2 fL 35.1-46.3 H 08789-5) RDW-CV (test code = 18.4 % 12.0-15.5 H 788-0) Platelet count (test 232 K/uL 140-440 code = 777-3) MPV (test code = 9.2 fL 4.0-10.4 43220-8) INRBC (test code = 0.0 % <=0.0 The INRBC (instrument 24740-5) NRBC) value ref lects the enumeration of nucleated red b lood cells contained in a 200uL sampleof whole blood analyzed by the instrument. Thi s value maydiffer from the NRBC value repo rted in a manual differential,wh ich is based on a 100 cell differential. Lab Interpretation Abnormal (test code = 08686-1) [facility] w/o Zquoxumisgcg3709-59-74 11:13:39 Test Item Value Reference Range Interpretation Comments WBC (test code = 6.3 K/uL 4.0-11.0 6690-2) RBC (test code = 789-8) 2.89 See_Comment L [Au tomated message] The system [employer] generated this result transmitted ref erence range: 4.00 - 5 .50 M/uL. The refer ence range was not u sed to interpret this result as normal/abnor mal. Hgb (test code = 718-7) 9.5 See_Comment L [Au tomated message] The system [employer] generated this result transmitted ref erence range: [...] See_Comment [Automate d message] 786-4) The system [employer] generated this result transmitted ref erence range: 31.0 - 3 6.0 gm/dL. The refe rence range was not u sed to interpret this result as normal/abnor mal. RDW-SD (test code = 67.2 fL 35.1-46.3 H 28368-1) RDW-CV (test code = 18.4 % 12.0-15.5 H 788-0) Platelet count (test 232 K/uL 140-440 code = 777-3) MPV (test code = 9.2 fL 4.0-10.4 04109-1) INRBC (test code = 0.0 % <=0.0 The INRBC (instrument 43514-3) NRBC) value ref lects the enumeration of nucleated red b lood cells contained in a 200uL sampleof whole blood analyzed by the instrument. Thi s value maydiffer from the NRBC value repo rted in a manual differential,wh ich is based on a 100 cell differential. Lab Interpretation Abnormal (test code = 49440-2) [facility] w/o Ihgybhfuzqvj3337-18-49 11:13:39 Test Item Value Reference Range Interpretation Comments WBC (test code = 6.3 K/uL 4.0-11.0 6690-2) RBC (test code = 789-8) 2.89 See_Comment L [Au tomated message] The system [employer] generated this result transmitted ref erence range: 4.00 - 5 .50 M/uL. The refer ence range was not u sed to interpret this result as normal/abnor mal. Hgb (test code = 718-7) 9.5 See_Comment L [Au tomated message] The system [employer] generated this result transmitted ref erence range: [...] See_Comment [Automate d message] 786-4) The system [employer] generated this result transmitted ref erence range: 31.0 - 3 6.0 gm/dL. The refe rence range was not u sed to interpret this result as normal/abnor mal. RDW-SD (test code = 67.2 fL 35.1-46.3 H 51037-4) RDW-CV (test code = 18.4 % 12.0-15.5 H 788-0) Platelet count (test 232 K/uL 140-440 code = 777-3) MPV (test code = 9.2 fL 4.0-10.4 56773-4) INRBC (test code = 0.0 % <=0.0 The INRBC (instrument 47092-9) NRBC) value ref lects the enumeration of nucleated red b lood cells contained in a 200uL sampleof whole blood analyzed by the instrument. Thi s value maydiffer from the NRBC value repo rted in a manual differential,wh ich is based on a 100 cell differential. Lab Interpretation Abnormal (test code = 19131-8) [facility] w/o Wgjacymqusat3725-41-31 11:13:39 Test Item Value Reference Range Interpretation Comments WBC (test code = 6.3 K/uL 4.0-11.0 6690-2) RBC (test code = 789-8) 2.89 See_Comment L [Au tomated message] The system [employer] generated this result transmitted ref erence range: 4.00 - 5 .50 M/uL. The refer ence range was not u sed to interpret this result as normal/abnor mal. Hgb (test code = 718-7) 9.5 See_Comment L [Au tomated message] The system [employer] generated this result transmitted ref erence range: [...] See_Comment [Automate d message] 786-4) The system [employer] generated this result transmitted ref erence range: 31.0 - 3 6.0 gm/dL. The refe rence range was not u sed to interpret this result as normal/abnor mal. RDW-SD (test code = 67.2 fL 35.1-46.3 H 51136-8) RDW-CV (test code = 18.4 % 12.0-15.5 H 788-0) Platelet count (test 232 K/uL 140-440 code = 777-3) MPV (test code = 9.2 fL 4.0-10.4 16530-2) INRBC (test code = 0.0 % <=0.0 The INRBC (instrument 47830-9) NRBC) value ref lects the enumeration of nucleated red b lood cells contained in a 200uL sampleof whole blood analyzed by the instrument. Thi s value maydiffer from the NRBC value repo rted in a manual differential,wh ich is based on a 100 cell differential. Lab Interpretation Abnormal (test code = 28154-5) [facility]2022-12-09 12:40:00 Test Item Value Reference Range Interpretation Comments Anion Gap (test code 10 See_Comment [Autom ated message] The = 40248-0) system which ge nerated this result transmit mariah reference range : 4 - 14 mEq/L. The refe rence range was not used to interpret this result as normal/abnormal . [facility]2022-12-09 12:40:00 Test Item Value Reference Range Interpretation Comments Anion Gap (test code 10 See_Comment [Autom ated message] The = 43062-7) system which ge nerated this result transmit mariah reference range : 4 - 14 mEq/L. The refe rence range was not used to interpret this result as normal/abnormal . [facility]2022-12-09 12:40:00 Test Item Value Reference Range Interpretation Comments Anion Gap (test code 10 See_Comment [Autom ated message] The = 00287-1) system which ge nerated this result transmit mariah reference range : 4 - 14 mEq/L. The refe rence range was not used to interpret this result as normal/abnormal . [facility]2022-12-09 12:40:00 Test Item Value Reference Range Interpretation Comments Anion Gap (test code 10 See_Comment [Autom ated message] The = 57421-1) system which ge nerated this result transmit mariah reference range : 4 - 14 mEq/L. The refe rence range was not used to interpret this result as normal/abnormal . [facility] [id number] 12:39:59 Test Item Value Reference Range Interpretation Comments Chloride (test code = 105 See_Comment [Auto mated message] The ) system which ge nerated this result tra nsmitted reference range : 98 - 107 mEq/L. The refe rence range was not u sed to interpret this result as normal/abnormal . [facility] [id number] 12:39:59 Test Item Value Reference Range Interpretation Comments Chloride (test code = 105 See_Comment [Auto mated message] The ) system which ge nerated this result tra nsmitted reference range : 98 - 107 mEq/L. The refe rence range was not u sed to interpret this result as normal/abnormal . [facility] [id number] 12:39:59 Test Item Value Reference Range Interpretation Comments Chloride (test code = 105 See_Comment [Auto mated message] The ) system which ge nerated this result tra nsmitted reference range : 98 - 107 mEq/L. The refe rence range was not u sed to interpret this result as normal/abnormal . [facility] [id number] 12:39:59 Test Item Value Reference Range Interpretation Comments Chloride (test code = 105 See_Comment [Auto mated message] The ) system which ge nerated this result tra nsmitted reference range : 98 - 107 mEq/L. The refe rence range was not u sed to interpret this result as normal/abnormal . [facility] [id number] 12:39:57 Test Item Value Reference Range Interpretation Comments Potassium Lvl (test 4.3 See_Comment [Automa mariah message] The code = 2823-3) system which generated this result tra nsmitted reference range : 3.5 - 5.1 mEq/L. The reference range was not u sed to interpret this result as normal/abnormal . [facility] [id number] 12:39:57 Test Item Value Reference Range Interpretation Comments Potassium Lvl (test 4.3 See_Comment [Automa mariah message] The code = 2823-3) system which generated this result tra nsmitted reference range : 3.5 - 5.1 mEq/L. The reference range was not u sed to interpret this result as normal/abnormal . [facility] [id number] 12:39:57 Test Item Value Reference Range Interpretation Comments Potassium Lvl (test 4.3 See_Comment [Automa mariah message] The code = 2823-3) system which generated this result tra nsmitted reference range : 3.5 - 5.1 mEq/L. The reference range was not u sed to interpret this result as normal/abnormal . [facility] [id number] 12:39:57 Test Item Value Reference Range Interpretation Comments Potassium Lvl (test 4.3 See_Comment [Automa mariah message] The code = 2823-3) system which generated this result tra nsmitted reference range : 3.5 - 5.1 mEq/L. The reference range was not u sed to interpret this result as normal/abnormal . [facility], [id number] 12:39:56 Test Item Value Reference Range Interpretation Comments Glucose Random (test 116 mg/dL 70-199 Effecti ve 01/12/16, the code = 2345-7) glucose refer ence intervals have been updated based o n [employer] l[employer] [place] (Standards of M edical Care in Diabete s 2016. Diabetes Care 2 016; 39: S13-S22).Fastin g blood glucose:Normal: 70-99 mg/dLImpaired f asting glucose (increa sed risk for diabetes or pre-diabetes): 100-125 mg/dLDiabetes m ellitus: >/=126 mg/dL Ra ndom blood glucose:N ormal: 70-199 mg/dLNot e: Random glucose >100 mg /dL is associated with increased risk for diabetes [facility], [id number] 12:39:56 Test Item Value Reference Range Interpretation Comments Glucose Random (test 116 mg/dL 70-199 Effecti ve 01/12/16, the code = 2345-7) glucose refer ence intervals have been updated based o n [employer] (Standards of M edical Care in Diabete s 2016. Diabetes Care 2 016; 39: S13-S22).Fastin g blood glucose:Normal: 70-99 mg/dLImpaired f asting glucose (increa sed risk for diabetes or pre-diabetes): 100-125 mg/dLDiabetes m ellitus: >/=126 mg/dL Ra ndom blood glucose:N ormal: 70-199 mg/dLNot e: Random glucose >100 mg /dL is associated with increased risk for diabetes [facility], [id number] 12:39:56 Test Item Value Reference Range Interpretation Comments Glucose Random (test 116 mg/dL 70-199 Effecti ve 01/12/16, the code = 2345-7) glucose refer ence intervals have been updated based o n [employer] (Standards of edical Care in Diabete s 2016. Diabetes Care 2 016; 39: S13-S22).Fastin g blood glucose:Normal: 70-99 mg/dLImpaired f asting glucose (increa sed risk for diabetes or pre-diabetes): 100-125 mg/dLDiabetes m ellitus: >/=126 mg/dL Ra ndom blood glucose:N ormal: 70-199 mg/dLNot e: Random glucose >100 mg /dL is associated with increased risk for diabetes [facility], [id number] 12:39:56 Test Item Value Reference Range Interpretation Comments Glucose Random (test 116 mg/dL 70-199 Effecti ve 01/12/16, the code = 2345-7) glucose refer ence intervals have been updated based o n [employer] (Standards of edical Care in Diabete s 2016. Diabetes Care 2 016; 39: S13-S22).Fastin g blood glucose:Normal: 70-99 mg/dLImpaired f asting glucose (increa sed risk for diabetes or pre-diabetes): 100-125 mg/dLDiabetes m ellitus: >/=126 mg/dL Ra ndom blood glucose:N ormal: 70-199 mg/dLNot e: Random glucose >100 mg /dL is associated with increased risk for [facility] [id number] 12:39:54 Test Item Value Reference Range Interpretation Comments Sodium Lvl (test code 140 See_Comment [Auto mated message] The = 2951-2) system which ge nerated this result tra nsmitted reference range : 136 - 145 mEq/L. The refe rence range was not used to interpret this result as normal/abnormal . [facility] [id number] 12:39:54 Test Item Value Reference Range Interpretation Comments Sodium Lvl (test code 140 See_Comment [Auto mated message] The = 2951-2) system which ge nerated this result tra nsmitted reference range : 136 - 145 mEq/L. The refe rence range was not used to interpret this result as normal/abnormal . [facility] [id number] 12:39:54 Test Item Value Reference Range Interpretation Comments Sodium Lvl (test code 140 See_Comment [Auto mated message] The = 2951-2) system which ge nerated this result tra nsmitted reference range : 136 - 145 mEq/L. The refe rence range was not used to interpret this result as normal/abnormal . [facility] [id number] 12:39:54 Test Item Value Reference Range Interpretation Comments Sodium Lvl (test code 140 See_Comment [Auto mated message] The = 2951-2) system which ge nerated this result tra nsmitted reference range : 136 - 145 mEq/L. The refe rence range was not used to interpret this result as normal/abnormal . [facility] [id number] 12:39:53 Test Item Value Reference Range Interpretation Comments Phosphorus (test code = 2777-1) 3.4 mg/dL 2.5-4.5 [facility] [id number] 12:39:53 Test Item Value Reference Range Interpretation Comments Phosphorus (test code = 2777-1) 3.4 mg/dL 2.5-4.5 [facility] D[facility]ide [id number] 12:39:49 Test Item Value Reference Range Interpretation Comments CO2 (test code = 25 See_Comment [Automated message] The 2028-02) system which ge nerated this result transmit mariah reference range : 22 - 29 mEq/L. The refe rence range was not used to interpret this result as normal/abnormal . [facility] D[facility] [id number] 12:39:49 Test Item Value Reference Range Interpretation Comments CO2 (test code = 25 See_Comment [Automated message] The 2028-02) system which ge nerated this result transmit mariah reference range : 22 - 29 mEq/L. The refe rence range was not used to interpret this result as normal/abnormal . [facility] LakeCarbon Dioxide [id number] 12:39:49 Test Item Value Reference Range Interpretation Comments CO2 (test code = 25 See_Comment [Automated message] The 2028-02) system which ge nerated this result transmit mariah reference range : 22 - 29 mEq/L. The refe rence range was not used to interpret this result as normal/abnormal . [facility] LakeCarbon Dioxide [id number] 12:39:49 Test Item Value Reference Range Interpretation Comments CO2 (test code = 25 See_Comment [Automated message] The 2028-02) system which ge nerated this result transmit mariah reference range : 22 - 29 mEq/L. The refe rence range was not used to interpret this result as normal/abnormal . [facility] LakeCalcium Ionized, [id number] 12:00:22 Test Item Value Reference Range Interpretation Comments V Ion Ca (test code = 81008-4) 1.22 mmol/L 1.15-1.29 [facility] LakeCalcium Ionized, [id number] 12:00:22 Test Item Value Reference Range Interpretation Comments V Ion Ca (test code = 02045-1) 1.22 mmol/L 1.15-1.29 [facility] LakeCalcium Ionized, [id number] 12:00:22 Test Item Value Reference Range Interpretation Comments V Ion Ca (test code = 81632-9) 1.22 mmol/L 1.15-1.29 [facility] LakeCalcium Ionized, [id number] 12:00:22 Test Item Value Reference Range Interpretation Comments V Ion Ca (test code = 60466-2) 1.22 mmol/L 1.15-1.29 [facility] LakeCOVID-19 (SARS-CoV-2) PCR- Asymptomatic [id number] 03:15:52 Test Item Value Reference Range Interpretation Comments COVID19 (SARS Not Detected Not Detected CoV-2) Result (test code = ____[place] s a 65628-4) qualitative reverse-transcr iptase polymerase heather n reaction [...] patients provid ed by the manufacture r ([employer]) c an be reviewed at:https://www. fda.go v/media/272122/ downlo ad. A fact shee t for Health Care pro viders is provided by the computer aided design designer ([employer]) and can be reviewed at: https://www.fda .gov/m edia/192708/bart nload Results must be interpreted wit hin [...] verified by the Microbiology Laboratory at [facility], CLIA Accreditation # : [id number] and CAP Accreditation # : [id number]. COVID19 SARS DRY PRESS OPERATOR HELPER Swab Source (test code = 47464) COVID19 SARS Pre-OR Procedure Indication (test code = 30613) [facility] LakeCOVID-19 (SARS-CoV-2) PCR- Asymptomatic [id number] 03:15:52 Test Item Value Reference Range Interpretation Comments COVID19 (SARS Not Detected Not Detected CoV-2) Result (test code = ____This test i s a 03695-0) qualitative reverse-transcr iptase polymerase heather n reaction [...] patients provid ed by the manufacture r ([employer]) c an be reviewed at:https://www. fda.go v/media/087428/ downlo ad. A fact shee t for Health Care pro viders is provided by the computer aided design designer ([employer]) and can be reviewed at: https://www.fda .gov/m edia/084256/bart nload Results must be interpreted wit hin [...] verified by the Microbiology Laboratory at [facility], CLIA Accreditation # : [id number] and CAP Accreditation # : [id number]. COVID19 SARS DRY PRESS OPERATOR HELPER Swab Source (test code = 15965) COVID19 SARS Pre-OR Procedure Indication (test code = 09251) [facility] LakeCOVID-19 (SARS-CoV-2) PCR- Asymptomatic [id number] 03:15:52 Test Item Value Reference Range Interpretation Comments COVID19 (SARS Not Detected Not Detected CoV-2) Result (test code = ____This test i s a 38631-8) qualitative reverse-transcr iptase polymerase heather n reaction (RT-PC R) developed for t he [employer] MARCUS 680 0 system and inte nded [...] patients provid ed by the manufacture r ([employer]) c an be reviewed at:https://www. fda.go v/media/991545/ downlo ad. A fact shee t for Health Care pro viders is provided by the computer aided design designer ([employer]) and can be reviewed at: https://www.fda .gov/m edia/078626/bart nload Results must be interpreted wit hin [...] verified by the Microbiology Laboratory at [facility], CLIA Accreditation # : [id number] and CAP Accreditation # : [id number]. COVID19 SARS DRY PRESS OPERATOR HELPER Swab Source (test code = 45382) COVID19 SARS Pre-OR Procedure Indication (test code = 27005) [facility] (SARS-CoV-2) PCR- Asymptomatic [id number] 03:15:52 Test Item Value Reference Range Interpretation Comments COVID19 (SARS Not Detected Not Detected CoV-2) Result (test code = ____This test i s a 90379-1) qualitative reverse-transcr iptase polymerase heather n reaction [...] patients provid ed by the manufacture r ([employer]) c an be reviewed at:https://www. fda.go v/media/717117/ downlo ad. A fact shee t for Health Care pro viders is provided by the computer aided design designer ([employer]) and can be reviewed at: https://www.fda .gov/m edia/393984/bart nload Results must be interpreted wit hin [...] verified by the Microbiology Laboratory at [facility], CLIA Accreditation # : [id number] and CAP Accreditation # : [id number]. COVID19 SARS DRY PRESS OPERATOR HELPER Swab Source (test code = 40645) COVID19 SARS Pre-OR Procedure Indication (test code = 52117) [facility] LakeFr [id number] 17:03:31 Test Item Value Reference Range Interpretation Comments T4 Free (test code = 3024-7) 1.04 ng/dL 0.93-1.70 [facility] LakeTSH2022-10-24 17:03:17 Test Item Value Reference Range Interpretation Comments TSH (test code = 1.96 See_Comment [Automated message] The 15570-2) system which ge nerated this result transmit mariah reference range : 0.27 - 4.20 mcunit/mL. The reference range was not used to interpr et this result as keiko l/abnormal. [facility] LakeFree [id number] 14:24:54 Test Item Value Reference Range Interpretation Comments T4 Free (test code = 3024-7) 1.10 ng/dL 0.93-1.70 [facility] LakeTSH2022-09-12 14:24:50 Test Item Value Reference Range Interpretation Comments TSH (test code = 1.56 See_Comment [Automated message] The 68126-6) system which ge nerated this result transmit mariah reference range : 0.27 - 4.20 mcunit/mL. The reference range was not used to interpr et this result as keiko l/abnormal. [facility] LakeFractionated [id number] 14:23:40 Test Item Value Reference Range Interpretation [...] above 28 g/L. [Automated message] The system [employer] generated this result transmitted ref erence range: [...] par ameters are outside rep ortable range [facility] LakeGlomerular Filtration Rate 2022-02-27 14:23:38 Test Item Value Reference Range Interpretation Comments eGFR-AA (test code = 51 See_Comment L Normal eGFR: >= 60 54293-7) mL/min/1.73 m2N ote: The eGFR is mariya [...] failure <15 [Automated mess age] The system [employer] generated this result transmitted ref erence range: >=60 mL/min/1.73 sq. m. The reference range was not used to int erpret this result as normal/abnormal . eGFR-DANIEL (test code = 44 See_Comment L Normal eGFR: >= 60 93266-6) mL/min/1.73 m2N ote: The eGFR is mariya [...] failure <15 [Automated mess age] The system [employer] generated this result transmitted ref erence range: >=60 mL/min/1.73 sq. m. The reference range was not used to int erpret this result as normal/abnormal . Lab Interpretation Abnormal (test code = 96761-3) [facility] LakeMagnesium [id number] 14:23:36 Test Item Value Reference Range Interpretation Comments Magnesium (test code = 64649-3) 2.4 mg/dL 1.6-2.6 [facility] LakeTotal [id number] 14:23:35 Test Item Value Reference Range Interpretation Comments Total Protein (test code = 2885-2) 7.5 g/dL 6.4-8.3 [facility] LakeAlkaline [id number] 14:23:34 Test Item Value Reference Range Interpretation Comments Alk Phos (test code = 6768-6) 91 U/L 35-104 [facility] LakePhosphorus [id number] 14:23:33 Test Item Value Reference Range Interpretation Comments Phosphorus (test code = 2777-1) 3.6 mg/dL 2.5-4.5 [facility] LakeAlbumin [id number] 14:23:32 Test Item Value Reference Range Interpretation Comments Albumin Lvl (test code 4.6 See_Comment [Aut omated message] The = 8664) system which ge nerated this result tra nsmitted reference range : 3.5 - 5.2 gm/dL. The refe rence range was not used to interpret this result as normal/abnormal . [facility] LakeCalcium [id number] 14:23:31 Test Item Value Reference Range Interpretation Comments Calcium Lvl (test code = 35800-4) 10.9 mg/dL 8.4-10.2 H Lab Interpretation (test code = Abnormal 59069-6) [facility] LakeAspartate Aminotransferase 2022-02-27 14:23:30 Test Item Value Reference Range Interpretation Comments AST (test code = 22 U/L See_Comment [Automated message] The 1920-01) system which ge nerated this result transmit mariah reference range : <=32. The reference range was not used to interpr et this result as keiko l/abnormal. [facility] LakeALT2022-09-12 14:23:29 Test Item Value Reference Range Interpretation Comments ALT (test code = 13 U/L See_Comment [Automated message] The 1741-11) system which ge nerated this result transmit mariah reference range : <=33. The reference range was not used to interpr et this result as keiko l/abnormal. [facility] LakeElectrolyte [id number] 14:23:28 Test Item Value Reference Range Interpretation Comments Sodium Lvl (test code = 140 See_Comment [Au tomated message] The 295-) system which ge nerated this result tra [...] [Auto mated message] The ) system which [employer] nerated this result tra nsmitted reference range [...] [Aut omated message] The ) system which [employer] nerated this result tra nsmitted reference range : 4 - 14 mEq/L. The refe rence range was not u sed to interpret this result as normal/abnormal . [facility] LakeBUN2022-09-12 14:23:27 Test Item Value Reference Range Interpretation Comments BUN (test code = 3094-0) 22 mg/dL 6- [facility].Serum [id number] 14:23:26 Test Item Value Reference Range Interpretation Comments Creatinine (test code = 2160-0) 1.19 mg/dL 0.51-0.95 H Lab Interpretation (test code = Abnormal 98221-5) [facility] LakeGlucose [id number] 14:23:25 Test Item Value Reference Range Interpretation [...] diabetes Lab Interpretation (test Abnormal code = 53773-8) [facility] LakeDifferential2022-09-12 13:46:29 Test Item Value Reference Range Interpretation [...] % 0.0-0.4 H IGRE % c ount 30136-6) includes Metamyelocytes, Myelocytes, and Promyelocytes. Neutrophil Abs (test code 7.17 K/uL 1.70-7.30 = 751-8) Lymphocyte Abs (test code 1.52 K/uL 1.00-4.80 = 731-0) Monocyte Abs (test code = 0.67 K/uL 0.08-0.70 742-7) Eosinophil Abs (test code 0.20 K/uL 0.04-0.40 = 711-2) Basophil Abs (test code = 0.06 K/uL 0.00-0.10 704-7) IG Abs (test code = 0.05 K/uL 0.00-0.04 H 89473-5) Lab Interpretation (test Abnormal code = 32302-4) [facility].[id number] 13:46:23 Test Item Value Reference Range Interpretation Comments WBC (test code = 9.7 K/uL 4.0-11.0 6690-2) RBC (test code = 789-8) 4.28 See_Comment [Au tomated message] The system [employer] generated this result transmitted ref erence range: 4.00 - 5 .50 M/uL. The refer ence range was not u sed to interpret this result as normal/abnor mal. Hgb (test code = 718-7) 12.9 See_Comment [Au tomated message] The system [employer] generated this result transmitted ref erence range: 12.0 - 1 6.0 gm/dL. The refe rence range was not u sed to interpret this result as normal/abnor mal. Hct (test code = 40.7 % 37.0-47.0 4544-3) MCV (test code = 787-2) 95 fL 82-98 MCH (test code = 785-6) 30.1 pg 27.0-31.0 MCHC (test code = 31.7 See_Comment [Automate d message] 786-4) The system [employer] generated this result transmitted ref erence range: 31.0 - 3 6.0 gm/dL. The refe rence range was not u sed to interpret this result as normal/abnor mal. RDW-SD (test code = 49.7 fL 35.1-46.3 H 70369-5) RDW-CV (test code = 14.3 % 12.0-15.5 788-0) Platelet count (test 273 K/uL 140-440 code = 777-3) MPV (test code = 8.9 fL 4.0-10.4 73190-8) INRBC (test code = 0.0 % See_Comment The INRBC (instrument 97301-8) NRBC) value ref lects the enumeration of nucleated red b lood cells contained in a 200uL sampleof whole blood analyzed by the instrument. Thi s value maydiffer from the NRBC value repo rted in a manual differential,wh ich is based on a 100 cell differential. [Automated mess age] The system [employer] generated this result transmitted ref erence range: <=0.0. T he reference range was not used to int erpret this result as normal/abnormal . Lab Interpretation Abnormal (test code = 77009-2) [facility] CenterC[facility] ([facility]CoV-2) PCR- Asymptomatic [id number] 07:32:38 Test Item Value Reference Range Interpretation Comments COVID19 (SARS Not Detected Not Detected CoV-2) Result (test code = ____[place] a 89888-3) qualitative reverse-transcr iptase polymerase heather n reaction [...] patients provid ed by the manufacture r ([employer]) c an be reviewed at:https://www. fda.go v/media/265210/ downlo ad. A fact shee t for Health Care pro viders is provided by the computer aided design designer ([employer]) and can be reviewed at: https://www.fda .gov/m edia/242132/bart nload Results must be interpreted wit hin [...] verified by the Microbiology Laboratory at [facility], CLIA Accreditation # : [id number] and CAP Accreditation # : [id number]. COVID19 SARS DRY PRESS OPERATOR HELPER Swab Source (test code = 66510) COVID19 SARS Pre-Out of [place] Indication (test Procedure code = 88639) [facility] LakeCOVID-19 (SARS-CoV-2) PCR- Asymptomatic [id number] 07:32:38 Test Item Value Reference Range Interpretation Comments COVID19 (SARS Not Detected Not Detected CoV-2) Result (test code = ____This test i s a 24093-6) qualitative reverse-transcr iptase polymerase heather n reaction [...] patients provid ed by the manufacture r ([employer]) c an be reviewed at:https://www. fda.go v/media/985273/ downlo ad. A fact shee t for Health Care pro viders is provided by the computer aided design designer ([employer]) and can be reviewed at: https://www.fda .gov/m edia/457362/bart nload Results must be interpreted wit hin [...] verified by the Microbiology Laboratory at [facility], CLIA Accreditation # : [id number] and CAP Accreditation # : [id number]. COVID19 SARS DRY PRESS OPERATOR HELPER Swab Source (test code = 59600) COVID19 SARS Pre-Out of [place] Indication (test Procedure code = 42214) [facility] LakeHepatitis C Virus Antibody 2022-02-03 20:00:50 Test Item [...] cons ideration when interpreti ng the results. [facility] LakeHepatitis C Virus Antibody 2022-02-03 20:00:50 Test Item [...] cons ideration when interpreti ng the results. [facility] LakeHeuofl health - peace hospitaltis B Surface [id number] 20:00:32 Test Item Value Reference Range Interpretation Comments HBsAg. (test code = 5747) Non Reactive Non Reactive [facility] LakeHeuofl health - peace hospitaltis B Surface [id number] 20:00:32 Test Item Value Reference Range Interpretation Comments HBsAg. (test code = 5747) Non Reactive Non Reactive [facility] LakeLDH2022-08-19 19:24:59 Test Item Value Reference Range Interpretation Comments LDH (test code = 190 U/L 135-214 Results gre ater than 1651 73284-4) U/L may not be reliable due to matrix effec t with extended diluti on as it exceeds the man ufacturer's recommended carty it. Caution should be exerc ised when interpreting chester ch values and done in con junction with clinical c ontext. [facility] LakeLDH2022-08-19 19:24:59 Test Item Value Reference Range Interpretation Comments LDH (test code = 190 U/L 135-214 Results gre ater than 1651 30461-5) U/L may not be reliable due to matrix effec t with extended diluti on as it exceeds the man ufacturer's recommended carty it. Caution should be exerc ised when interpreting chester ch values and done in con junction with clinical c ontext. [facility] LakeLDH2022-08-19 19:24:59 Test Item Value Reference Range Interpretation Comments LDH (test code = 190 U/L 135-214 Results gre ater than 1651 40917-9) U/L may not be reliable due to matrix effec t with extended diluti on as it exceeds the man ufacturer's recommended carty it. Caution should be exerc ised when interpreting chester ch values and done in con junction with clinical c ontext. [facility] LakeLDH2022-08-19 19:24:59 Test Item Value Reference Range Interpretation Comments LDH (test code = 190 U/L 135-214 Results gre ater than 1651 27707-5) U/L may not be reliable due to matrix effec t with extended diluti on as it exceeds the man ufacturer's recommended carty it. Caution should be exerc ised when interpreting chester ch values and done in con junction with clinical c ontext. [facility] LakeGGT2022-08-19 19:24:45 Test Item Value Reference Range Interpretation Comments GGT (test code = 2324-2) 19 U/L 5-36 [facility] [id number] 19:24:45 Test Item Value Reference Range Interpretation Comments GGT (test code = 2324-2) 19 U/L -36 [facility] LakeCortisol, [id number] 19:24:14 Test Item Value Reference Range Interpretation [...] (4.8 - 19.5)Afternoon (4-8pm) (2.5 - 11.9) [[employer] message] The system [employer] generated this result tra nsmitted reference range : 4.80 - 19.50 mcg/dL. T he reference range was not u sed to interpret this result as normal/abnormal . [facility] LakeCortisol, [id number] 19:24:14 Test Item Value Reference Range Interpretation [...] - 11.9) [Automa mariah message] The system [employer] generated this result tra nsmitted reference range : 4.80 - 19.50 mcg/dL. T he reference range was not u sed to interpret this result as normal/abnormal . [facility] LakeCortisol, [id number] 19:24:14 Test Item Value Reference Range Interpretation [...] interpreting chester ch values and done in [facility] [place] with clinical c ontext. Serum Cortisol Reference Ranges: Morning (6-10am) (4.8 - 19.5)Aft ernoon (4-8pm) (2.5 - 11.9) [Automated mess age] The system which ge nerated this result tra nsmitted reference range : 4.80 - 19.50 mcg/dL. T he reference range was not used to interpr et this result as keiko l/abnormal. [facility] LakeCortisol, [id number] 19:24:14 Test Item Value Reference Range Interpretation [...] interpreting chester ch values and done in [facility] [place] with clinical c ontext. Serum Cortisol Reference Ranges: Morning (6-10am) (4.8 - 19.5)Aft ernoon (4-8pm) (2.5 - 11.9) [Automated mess age] The system which ge nerated this result tra nsmitted reference range : 4.80 - 19.50 mcg/dL. T he reference range was not used to interpr et this result as keiko l/abnormal. [facility] LakeUrinalysis with Microscopic 2022-02-03 19:16:18 Test Item Value Reference Interpretation Comments Range UA WBC (test code = 8 See_Comment H [Automa mariah 60298-9) message] The system which generated this result transmitted reference range : 0 - 2 /HPF. The reference range was not used to interpret this result as normal/abnormal . UA RBC (test code = 1 See_Comment [Automa mariah 53767-0) message] The system which generated this result transmitted reference range : 0 - 2 /HPF. The reference range was not used to interpret this result as normal/abnormal . UA Mucous (test code NOT SEEN Not Seen-Trace = 88313-1) /HPF UA Bacteria (test NOT SEEN NOT SEEN /HPF code = 56334-1) UA Squam Epi (test OCC None-Occasiona code = 03957-8) l /HPF RHIANNA (test code = Some reporting RHIANNA) parameters within the Urinalysis test have changed due to the implementation of new instrumentation in the [facility], allowing greater sensitivity of measurement. Urinalysis results reported by the [facility] using existing instrumentation, as well as Urinalysis testing performed manually or by backup methodology at the [facility] will remain relatively unchanged. New reporting parameters and units will now be reported for all [facility]. Lab Interpretation Abnormal (test code = 96890-2) [facility] LakeUrinalysis with Microscopic 2022-02-03 19:16:18 Test Item Value Reference Interpretation Comments Range UA WBC (test code = 8 See_Comment H [Automa mariah 82174-3) message] The system which generated this result transmitted reference range : 0 - 2 /HPF. The reference range was not used to interpret this result as normal/abnormal . UA RBC (test code = 1 See_Comment [Automa mariah 58147-3) message] The system which generated this result transmitted reference range : 0 - 2 /HPF. The reference range was not used to interpret this result as normal/abnormal . UA Mucous (test code NOT SEEN Not Seen-Trace = 85951-3) /HPF UA Bacteria (test NOT SEEN NOT SEEN /HPF code = 98356-5) UA Squam Epi (test OCC None-Occasiona code = 30738-6) l /HPF RHIANNA (test code = Some reporting RHIANNA) parameters within the Urinalysis test have changed due to the implementation of new instrumentation in the [facility], allowing greater sensitivity of measurement. Urinalysis results reported by the [facility] using existing instrumentation, as well as Urinalysis testing performed manually or by backup methodology at the [facility] will remain relatively unchanged. New reporting parameters and units will now be reported for all campuses. Lab Interpretation Abnormal (test code = 07353-6) [facility] LakeUrinalysis with Microscopic 2022-02-03 19:16:18 Test Item Value Reference Interpretation Comments Range UA WBC (test code = 8 See_Comment H [Automa mariah 75576-2) message] The system which generated this result transmitted reference range : 0 - 2 /HPF. The reference range was not used to interpret this result as normal/abnormal . UA RBC (test code = 1 See_Comment [Automa mariah 63472-0) message] The system which generated this result transmitted reference range : 0 - 2 /HPF. The reference range was not used to interpret this result as normal/abnormal . UA Mucous (test code NOT SEEN Not Seen-Trace = 21677-4) /HPF UA Bacteria (test NOT SEEN NOT SEEN /HPF code = 30767-0) UA Squam Epi (test OCC None-Occasiona code = 77163-2) l /HPF RHIANNA (test code = Some reporting RHIANNA) parameters within the Urinalysis test have changed due to the implementation of new instrumentation in the [facility], allowing greater sensitivity of measurement. Urinalysis results reported by the [facility] using existing instrumentation, as well as Urinalysis testing performed manually or by backup methodology at the [facility] will remain relatively unchanged. New reporting parameters and units will now be reported for all campuses. Lab Interpretation Abnormal (test code = 16725-0) [facility] SurveyorUrinalysis with Microscopic 2022-02-03 19:16:18 Test Item Value Reference Interpretation Comments Range UA WBC (test code = 8 See_Comment H [Automa mariah 69816-3) message] The system which generated this result transmitted reference range : 0 - 2 /HPF. The reference range was not used to interpret this result as normal/abnormal . UA RBC (test code = 1 See_Comment [Automa mariah 70958-5) message] The system which generated this result transmitted reference range : 0 - 2 /HPF. The reference range was not used to interpret this result as normal/abnormal . UA Mucous (test code NOT SEEN Not Seen-Trace = 39164-8) /HPF UA Bacteria (test NOT SEEN NOT SEEN /HPF code = 85661-2) UA Squam Epi (test OCC None-Occasiona code = 93950-1) l /HPF RHIANNA (test code = Some reporting RHIANNA) parameters within the Urinalysis test have changed due to the implementation of new instrumentation in the [facility], allowing greater sensitivity of measurement. Urinalysis results reported by the [facility] using existing instrumentation, as well as Urinalysis testing performed manually or by backup methodology at the [facility] [place] will remain relatively unchanged. New reporting parameters and units will now be reported for all campuses. Lab Interpretation Abnormal (test code = 98475-3) [facility] [id number] 19:13:05 Test Item Value Reference Range Interpretation Comments Lipase Lvl (test code = 3040-3) 56 U/L [facility] [id number] 19:13:05 Test Item Value Reference Range Interpretation Comments Lipase Lvl (test code = 3040-3) 56 U/L [facility] [id number] 19:13:05 Test Item Value Reference Range Interpretation Comments Lipase Lvl (test code = 3040-3) 56 U/L [facility] [id number] 19:13:05 Test Item Value Reference Range Interpretation Comments Lipase Lvl (test code = 3040-3) 56 U/L [facility] [id number] 19:13:04 Test Item Value Reference Range Interpretation Comments Amylase Lvl (test code = 1798-8) 102 U/L 28-100 H Lab Interpretation (test code = Abnormal 34840-8) [facility] [id number] 19:13:04 Test Item Value Reference Range Interpretation Comments Amylase Lvl (test code = 1798-8) 102 U/L 28-100 H Lab Interpretation (test code = Abnormal 49296-7) [facility] [id number] 19:13:04 Test Item Value Reference Range Interpretation Comments Amylase Lvl (test code = 1798-8) 102 U/L 28-100 H Lab Interpretation (test code = Abnormal 17342-0) [facility] [id number] 19:13:04 Test Item Value Reference Range Interpretation Comments Amylase Lvl (test code = 1798-8) 102 U/L 28-100 H Lab Interpretation (test code = Abnormal 75178-4) [facility] Lake[facility]inalysis w/Microscopic if [id number] 19:08:15 Test Item Value Reference Range Interpretation Comments UA Color (test code = 54888-4) Straw Straw-Yellow UA Appear (test code = [...] A Lab Interpretation (test code = Abnormal 44747-6) [facility] Lake[facility]inal[facility] w/Microscopic if Usfojpfal8797-63-65 19:08:15 Test Item Value Reference Range Interpretation Comments UA Color (test code = 48077-2) Straw Straw-Yellow UA Appear (test code = [...] A Lab Interpretation (test code = Abnormal 30564-6) [facility] Lake[facility]inalysis w/Microscopic if Vwibkqtel2049-74-21 19:08:15 Test Item Value Reference Range Interpretation Comments UA Color (test code = 41987-0) Straw Straw-Yellow UA Appear (test code = [...] A Lab Interpretation (test code = Abnormal 04961-3) [facility] Lake[facility]inal[facility] w/Microscopic if [id number] 19:08:15 Test Item Value Reference Range Interpretation Comments UA Color (test code = 88730-8) Straw Straw-Yellow UA Appear (test code = [...] A Lab Interpretation (test code = Abnormal 19782-3) [facility] LakeaPTT2022-08-19 19:00:12 Test Item Value Reference Range Interpretation Comments aPTT (test code = 36.6 See_Comment H [Automate d 33538-0) message] The system which generated this result transmitted reference range : 22.8 - 34.2 second(s). The reference range was not used to interpret this result as normal/abnormal . RHIANNA (test code = RHIANNA) This lab cannot be scheduled at the following locations due to collection/procc essing restrictions: [facility] and [facility]. Lab Interpretation Abnormal (test code = 46317-2) [facility] Lake[facility]PTT2022-08-19 19:00:12 Test Item Value Reference Range Interpretation Comments aPTT (test code = 36.6 See_Comment H [Automate d 21623-2) message] The system which generated this result transmitted reference range : 22.8 - 34.2 second(s). The reference range was not used to interpret this result as normal/abnormal . RHIANNA (test code = RHIANNA) This lab cannot be scheduled at the following locations due to collection/procc essing restrictions: [facility] and [facility]. Lab Interpretation Abnormal (test code = 23102-2) [facility] LakeProthrombin Aqyq6830-76-86 19:00:11 Test Item Value Reference Range Interpretation [...] following locations due to collection/procc essing restrictions: [facility] and [facility]. Lab Interpretation Abnormal (test code = 23334-7) [facility] LakeProthrombin Ysvn4648-08-19 19:00:11 Test Item Value Reference Range Interpretation [...] following locations due to collection/procc essing restrictions: [facility] and [facility]. Lab Interpretation Abnormal (test code = 50999-4) [facility] Cancer SurveyorComplete PFT (Kale, DLCO, LV) 2022-02-03 00:00:00 Test [...] 9530) Lab Interpretation (test Abnormal code = 11507-8) [facility] LakeMD BRAF V600 E Mutation Material [id number] 21:49:16 Test Item Value Reference Range Interpretation Comments Archived Material Previously diagnosed (test code = 29555) tissues from [place] [address] were selected for molecular analysis. Results will be reported separately. [facility] EGFR Mutation Material Request 2021-12-30 21:49:16 Test Item Value Reference Range Interpretation Comments Archived Material Previously diagnosed (test code = 41053) tissues from [place] [address] were selected for molecular analysis. Results will be reported separately. [facility] KRAS Mutation Material Request 2021-12-30 21:49:16 Test Item Value Reference Range Interpretation Comments Archived Material Previously diagnosed (test code = 67976) tissues from [place] [address] were selected for molecular analysis. Results will be reported separately. [facility] Lake[facility] NTRK1 Fusion Analysis Material [id number] 21:49:16 Test Item Value Reference Range Interpretation Comments Archived Material Previously diagnosed (test code = 11377) tissues from [place] [address] were selected for molecular analysis. Results will be reported separately. [facility] NTRK2 Fusion Analysis Material Yjzntva3715-39-23 21:49:16 Test Item Value Reference Range Interpretation Comments Archived Material Previously diagnosed (test code = 22820) tissues from [place] [address] were selected for molecular analysis. Results will be reported separately. [facility] EML4/ALK Fusion Analysis Material Wiqrzpx6467-40-59 21:49:16 Test Item Value Reference Range Interpretation Comments Archived Material Previously diagnosed (test code = 12261) tissues from [place] [address] were selected for molecular analysis. Results will be reported separately. [facility] BRAF V600 E Mutation Material [id number] 21:49:16 Test Item Value Reference Range Interpretation Comments Archived Material Previously diagnosed (test code = 85385) tissues from [place] [address] were selected for molecular analysis. Results will be reported separately. [facility] EGFR Mutation Material Request 2021-12-30 21:49:16 Test Item Value Reference Range Interpretation Comments Archived Material Previously diagnosed (test code = 92183) tissues from [place] [address] were selected for molecular analysis. Results will be reported separately. [facility] KRAS Mutation Material Request 2021-12-30 21:49:16 Test Item Value Reference Range Interpretation Comments Archived Material Previously diagnosed (test code = 52425) tissues from [place] [address] were selected for molecular analysis. Results will be reported separately. [facility] NTRK1 Fusion Analysis Material [id number] 21:49:16 Test Item Value Reference Range Interpretation Comments Archived Material Previously diagnosed (test code = 45500) tissues from [place] [address] were selected for molecular analysis. Results will be reported separately. [facility] NTRK2 Fusion Analysis Material Dzwwosh6140-98-54 21:49:16 Test Item Value Reference Range Interpretation Comments Archived Material Previously diagnosed (test code = 99649) tissues from [place] [address] were selected for molecular analysis. Results will be reported separately. [facility] EML4/ALK Fusion Analysis Material [id number] 21:49:16 Test Item Value Reference Range Interpretation Comments Archived Material Previously diagnosed (test code = 36831) tissues from [place] [address] were selected for molecular analysis. Results will be reported separately. [facility] BRAF V600 E Mutation Material [id number] 21:49:16 Test Item Value Reference Range Interpretation Comments Archived Material Previously diagnosed (test code = 31005) tissues from [place] [address] were selected for molecular analysis. Results will be reported separately. [facility] EGFR Mutation Material Request 2021-12-30 21:49:16 Test Item Value Reference Range Interpretation Comments Archived Material Previously diagnosed (test code = 92303) tissues from [place] [address] were selected for molecular analysis. Results will be reported separately. [facility] KRAS Mutation Material Request 2021-12-30 21:49:16 Test Item Value Reference Range Interpretation Comments Archived Material Previously diagnosed (test code = 52044) tissues from [place] [address] were selected for molecular analysis. Results will be reported separately. [facility] NTRK1 Fusion Analysis Material [id number] 21:49:16 Test Item Value Reference Range Interpretation Comments Archived Material Previously diagnosed (test code = 90533) tissues from [place] [address] were selected for molecular analysis. Results will be reported separately. [facility] NTRK2 Fusion Analysis Material [id number] 21:49:16 Test Item Value Reference Range Interpretation Comments Archived Material Previously diagnosed (test code = 41595) tissues from [place] [address] were selected for molecular analysis. Results will be reported separately. [facility] EML4/ALK Fusion Analysis Material [id number] 21:49:16 Test Item Value Reference Range Interpretation Comments Archived Material Previously diagnosed (test code = 19834) tissues from [place] [address] were selected for molecular analysis. Results will be reported separately. [facility] NTRK3 Fusion Analysis Material [id number] 21:49:15 Test Item Value Reference Range Interpretation Comments Archived Material Previously diagnosed (test code = 70887) tissues from [place] [address] were selected for molecular analysis. Results will be reported separately. [facility] RET Fusion Analysis Material [id number] 21:49:15 Test Item Value Reference Range Interpretation Comments Archived Material Previously diagnosed (test code = 27000) tissues from [place] [address] were selected for molecular analysis. Results will be reported separately. [facility] ROS1 Fusion Analysis Material [id number] 21:49:15 Test Item Value Reference Range Interpretation Comments Archived Material Previously diagnosed (test code = 30701) tissues from [place] [address] were selected for molecular analysis. Results will be reported separately. [facility] NTRK3 Fusion Analysis Material [id number] 21:49:15 Test Item Value Reference Range Interpretation Comments Archived Material Previously diagnosed (test code = 30728) tissues from [place] [address] were selected for molecular analysis. Results will be reported separately. [facility] RET Fusion Analysis Material [id number] 21:49:15 Test Item Value Reference Range Interpretation Comments Archived Material Previously diagnosed (test code = 68122) tissues from [place] [address] were selected for molecular analysis. Results will be reported separately. [facility] ROS1 Fusion Analysis Material [id number] 21:49:15 Test Item Value Reference Range Interpretation Comments Archived Material Previously diagnosed (test code = 84515) tissues from [place] [address] were selected for molecular analysis. Results will be reported separately. [facility] NTRK3 Fusion Analysis Material [id number] 21:49:15 Test Item Value Reference Range Interpretation Comments Archived Material Previously diagnosed (test code = 42763) tissues from [place] [address] were selected for molecular analysis. Results will be reported separately. [facility] RET Fusion Analysis Material [id number] 21:49:15 Test Item Value Reference Range Interpretation Comments Archived Material Previously diagnosed (test code = 94185) tissues from [place] [address] were selected for molecular analysis. Results will be reported separately. [facility] ROS1 Fusion Analysis Material [id number] 21:49:15 Test Item Value Reference Range Interpretation Comments Archived Material Previously diagnosed (test code = 18109) tissues from [place] [address] were selected for molecular analysis. Results will be reported separately. [facility] Lake[facility] Biopsy Interpretation 2021-12-29 21:51:25 Test Item Value Reference Range Interpretation Comments Addendum 1 (test code = k8fvwMGiDTNddPI8RYA 37) mFPXpe8dnl6BunXRbkY SgSXdptRKpehCoez01u ON2iQ25PH1oQMAgJeF3 AATpyiK1Gui0TIXtRKF sdHGqE424f1gga6sfui XktTY5yIhwKCEjxlkjN gM2NLwwMLJziwmiHRg1 ZMieUFKrxOF9ZFRtmBW qM9EoXQXtID4uydh4JE O7FCoaBFOwHcD8BDAlp ZMzZOKrfAzjNDwoo393 FLF5HmOqUHXhqxWabWa kzO2bLcCeJHURMR6UOR ZdN9snhxYnKoWKUhkxW LUhiyYCoWHhjOZ3WPZE kB3dkyJlUVKkh4FjdxL cj37yK6CtrxNhDTPWSd s2BFdcVSwuDMKdiZp4j KPKh7DecVNBsvEmle1b rZvloqb7kFGxZnUDaHv tBNOtc7W4PIenSV2ljw TzTTB4tBIbPPVsjJTFC 0lyLX68TGNky95hXY7z MMOgHKEsZACuj23nY7o vbmFsIGFudGktUEQtTD SaBASqe56wLVYmGnOqT Oe8JQirGSJxkiJmek2u RRBwasKwu2XoVGaoca7 maXhlZCBwYXJhZmZpbi 9tnPRsGMNzYOG9lKSwn SLfiBJeasiwLU4eUQra dTOobKQDYAfoHJI6aF7 zdGFpbmVyIGFuZCBwb2 z2rKTmHINqy1RzCANjy GVjdGlvbiBraXQsIGFz IHNwZWNpZmllZCBieSB 1pJEmdUGtyLFuF2V7di VyLiBJdCBpcyBhcHByb 5XqZLZbz6KyiVNgOGQf UJIeF56meMMfeK2cLHC rAHfyo8N2pBKjHBIaRY qsJw9yKDVeRPGnJjsmD HRoZXJhcGllcyBvbiBj EYX7FQntZKA8fG8oPTZ 5cGVzLiBJbnRlcnByZX RhdGlvbiBndWlkZWxpb mVzIHZhcnkuIEZvciB0 nE4olvIrHQWnbwZuegT gQ3Lou7KgckDjYJFEYh aiYLJxDAPiDFAqFJ49W DspZO8pJQY4rW7aVSyc hMNhUuFpdh52msMlGIZ lbGluZyBvZiBhbnkgaW 74AD0kkNV9KQhsUXJqf 0Kfv5WgLvVKsQRak0Is tnWjVZUsrB7upTtnZKy udGVuZGVkIHRoZXJhcH jvgJZja5ClRYJtobGvp kIeVe9mYNGguDAxuFEb YXRlIHVzZSBvZiByZXN 7bPEvKjQQVPTbs6EoDU 4yJDZxnEQiQGY1NHVvc 9QqA9Ogm04of8KpIJAd pKiib6RgVRZ2iEHtAJA 7R6juPLEbPMnzyPIsJP Aui0BpF2uwKH8lHFTpS UHqvsZvz26yEGGisq99 ABByfFOcs6HsbHreEDH hDE3mBTGnCIMlzGpsjx YvBR6qm0DjNxSnT7Wir sYouHUdSD3prOAoOGDb cmRcaTBccGFyfQ== Submitted Clinical History u3mbfLZqMOBxm4sxYQD (test code = 93202) mbGFuZzEwMzNcZnRuYm pcdWMxIHtccnRmMVxzc 9QzO3ZgKnFfRVwdnjUu XGRlZmxhbmcxMDMzXGZ 0bmJqXHVjMVxkZWZmMH mzUi6ftEWjnNjsEsNsE ATbc3wnknLXnxqftHb2 k8imDTQcGhM6iLNeCSc wJ0wdriWhkCLlBQRpKA c5pF99VZKynC6pdMSnX CajmfDrBuD7TBkaTDVv FlS7XTDonXPeRDEhW8a yZWQwXGdyZWVuMFxibH OcOHS4xKyvt3T0gSSmc GVldHtcZjBcZnMyMiBO d9XcRIr8wOcvM6KvHWN zIcB3rQWdFHUpYQugSA ZaGJEkixF5uI41QLbcz rE0yMMhy0Zna19ez217 gL8ejBOjPKB6JIMkWFJ suPGjETDkKJN7JMMwgH DzW1lcRQXzFN4uddxzH FrxEPviURFpnPD7LBAs vVUiV5KeSTHhUAceBPY okmy5DbPkAu7qmMQzlL rcPBcrn4wgh4gxjLZvG kq5EOBwRjVyXyfnNLgk h3Fqt9wwLKMbwq5uGNO 6gPWekIyvl1X5pCZsDL TmpGOxqaBtMEPuEcX7W BarEN0cnn78OXFqPXZ5 le4ylKZqzIqegtFkjQU fCWjaQ6OmEINpl993BI GnD4SfNEYun0H9uiQrQ jFeDJBqfDK1dnI4GWEp BJb4cICfmoM7xyZubGZ rA2vhrQ5tWNGlCK2oko aga8fsOWpdOQojHERwl GC4zaV8TCFfeUVdA9Xu vN0eKQBtGGqgLXGtdye 2NmKfIp1igSHeuAfgRL xzYmtwYWdlXHBnbmNvb nRccGduZGVjXHBsYWlu XHBsYWluXGYwXGZzMjR ngGtndIrkyA5oJmNpDi FaSGovMA8qVVNnQ3ojx RQnNPTmYARmE8bnXcGa vD9ewEsxKGklgsXsEX9 5pXUrpOhwES3qHXWjTW Ufn4FcsCNzMnSaOhfaP zjfPEVukqBMpQ9hBX6g r9PiP4L4SI67LAphtVF pblxmMVxmczIyXGxhbm brBBEzBIfeW5fcZoDwG IUrqXplFUzlt9JzECNe XGZzMjJccGFyfX0= Diagnosis (test code = 34) g8kimBDaGIGfwSY2VRH aHQMng8qkr4EfeMLsjP ZhBOmpoOJhfnIwgc05j JK8iK31LU1cHPTnYxW8 TCKwgyZ1Exv1NPBdZZL tyHZvX856w8vzk8dezz AwnWH6uVbyGTJnshecK lY2TMuqMESnssoxFQh6 IAbaPKErhVC4OKYaiHX aF6LoAYWpVV1xobv1JP V5MTqqVDPeEjE9ALVlr SQfQIXpxEklEMpty210 HZW8UgTiQBRhdeFdaZd onF3aJxOkEOJHzB6vEG UhOPC9HUEacFOwZPkuV lMmZSDov6GgvPewwBVv BYAekyi4MUVzJBTUVh1 QUMIJQI4MEWBiI1LuYI ORFaLEJmiMQO9kRHAtc dy0RNIoI8UfFXEdeE5a bnQuXHBhcn0= Comment (test code = 9835) n5eboSDzVEKnzLL1COG lAUFbp0fpr1HjcASpwN YeMUqgbGDkdgRnuf12o UJ3oC49KU2cVEPeZoA8 TUTjbhV8Vzy7PKMyUCX mkFMkY297f7kuq4fdcl EicGO2wBglBDKegrxpZ nC3MZjnUSKgvlneBOi6 BKueHJQthNL8QQIhxBV dO9VvWQErMZ5jeeh5JC M1HVtuWEWhQdJ2CGRxe SPwSZPjzDuvFMtnw025 SIZ2ZyOzVJQcipHhgAo nwH9iXuSrWVXGrA63os 7ojZT5d2IkQT5hL7RlI LQ7MJwrqbKxpD23BDXm i7b5xQZhHOW5MLzymB5 oGIrlSQL8eX7uTBKxdU knSJkslYdkk2SuENLtz iBhbmQgVFRGLTEsIHdo uEfiGR6nX4B9eUGfUMI vciBHQVRBLTMsIFBBWC 04LCBhbmQgcDQwLlxwY XJ9 Gross Description (test x7mxiPVqCDEglQJTIFx code = 4395887292) wMVxhbnNpXHNwbHRwZ3 PihbytVWmsBV7tDI1xu FdhvSDpePClJP8UAQZu ZmYxXHBhcGVydzEyMjQ iGZKrxKSgqVT4JDFxFN 1hcmdsMTgwMFxtYXJnc yL9UQComAOjA2ZjNYXm OS5fajdnJQT5AWjquT3 myyXDUasrIs3ynYLwhF tcZjFcZmNoYXJzZXQwX RBdtMhyJUPwQRr7hC7K ArndY35xg5D2Kqm8WHD cNJNvD3LrLU5jLMTlaE SlY07KRhjjZMK4BPCCC vjsRULzSI6Rr6sfNCSc aYGcJNT9TJvlhYIvSNW nPZKcKQu9QZQaBZjwcQ RvHY9atClvKzjbbUhmo 2VjdCBcXGlkIDUxMDAy KDynXFSvDO1YSnNqPFC sFxY4ELlwOQz6NHm6SE 7VOfXlSWMiHFLbYQC9M sQyADs8SAtkBH7BDDWt NjgxMzUxMzYgNTUyNTQ eYCn7AFSvTIemDZUyqH FsIFxcZnMgMTAgXFxmY mXiWHAlSPwcvnR6FWOj YWluXGJcZnMyMCBBOlx gBMSkKEpyyYxbmL7qPX SqD85cp2DQf5HbGX1DY Tl2xeKswxamgD4jNCWy niWoWVzyoEUxV1imCmn pAlPrNiWoTYWAkY2jTY LmZUH7PECzbDJiOSomN mUsIGxlZnQgbHVuZzpc YuThF5RqKEQXpYNyKGC da8RpsqRlKvP1YT0wBs Ymv57xk35mmHS0pZPac WUgYWdncmVnYXRpbmcg pK3qSn0oRKhrGF4dXFv sUI8hJQHhFPGhccYivj EqcYTteBVqwCC0SBXwj K3jPXBlZFOxnAZwvXHk rHdhIdkshSZ2AYehImh iaB1xjRWVNKCDQloHXa jdzzWtKZ3RSK3MVjYAP D65MfTtAWR9XHuBN4NV oWY0Smm9VBe5yJyrTxq bqsYfzQArJfVQmB0RWj xtEzadbLW6SNvsPexwz V8ykGBVYNZTSteUPamn hnRqMU5EFD1DYP5IcPE fRSL9jKA9VHDRRhheaT B2mIR0xU74IRJxAXZkm CVhXMmaB025HMNrAEtm MHu7wvFfFSFqShJiTFn gPAYqM26ze4RFd6IwVK Ash5qodUvhr4ZevUHwV AciKZNeuSZyYGpdhS3v HnFoq7fxhFg0VLsnzuU 3WOScxc1ukEaeuX1bMI ywu7poBDO5TAQpcUWwd UWhTSatmGhriQ2tCkBx Jzf4QElcXUBaH8LyE4B wqgQ3SGKsPArkVVZgNW YgDQp9 Biomarker Block(s) (test z2imfXLrUTJzlNU3BPI code = 9841) vJCNbb2aui2LjuNPjrS TuCYsunNKuzvMzdp34r GN5lC05FS5hVQDcCnY4 PKBxnhN3Rdj2OLDzLIF ivYIzO669i3fyz5hehs NsrTA3cNcvFDLnmrnsB yR7BYhmSAEbjvntGMu6 GTizERVzpVY5XJCpjCG vK5DbBVVkRB9ecgp7DV Z5BIzkBCHkZwK1MTIms QBiWZVqxLhdZNdxn456 NJB1XgZnXGNupuIanIb irR7dGbVsOCRHBjrpZY J9 Disclaimer (test code = x2vfyQSfEYKyuOHsVxD 9844) wEJNaIELvf5gpIFYaeY FuZzEwMzNcZnRuYmpcd QKwEJQlTuEsa5mgr003 eDWso7qbWDPuDcM2gDJ lLGDhnUGzX095ZLMpXQ dah3gpq4JvUODyzCIyr 5S0NOKXvebjlFk6tUcy B41qv4Q2RyxzE4ofYLW wFRKnW7VnLU5hHBCrLv s6HWK8ACB4EXHwEOCeR 8EePJ9pXVPuxUXfHSl0 t6fwsZyrDUUrWZT5q5n dPKjoedFzVQ4nsv0odF p4k0vhtnSpCYVzGLAuf MMXHDNwE3NwxXzdZj3a mUo2jPnfLrtfWZR9Ift 0VG8doq08gkq7mVorTE BfpfpuBnT6LAxsSEQci fdjJBf6AKnrKYEkuWG6 NIHvhFNoZ8FdMUKxRX6 jdxt4GBH2YZhjWJFlCm N6BTBuwKOrGMTwzOapN Zxhl024RUJ8GsJrGX7h E8Tnl2V2xG5lxCJlKVQ guLSxBhFhTKLtiy3nuE IlJVoyf9EmMTC3ufW5h UQklUCtFCIlKA70Lpkv k8IjCoqxJKC5CHGinnU yc7Ipc5plBfIhojJrZ0 laI1StEUOxKIMvLGYgO bSlxrAks1Ksc7OxpMEr gTa7w1onQFEzBIRxxLa vx8lhFJN3YWVnI3E9gF Ikr4nhUSjgFGLwdYF4d sW9LWNvsNVmM1PufD6h LLHoTZ8xukq5c1taAPH 9RRczJJIdMsQ5bgD4JR BcaGVhZGVyeTcyMFxmb 395AGU4TeXvJTVzj4Na O1YcmFelF18owMzbB08 nITWgrKwwvS8kzScojB 5cZjBcZnMyNFxxbFxwb YKftlpmRVfabmN2VJcu peoaPISeUDqcI2jcJmG iNQEzeTvaHXvcl3CxNH SqXSFeMbypqnZ1XAJLx 59mLGYzn6RkMYRbpL6v sXBoADikufWvsXJ7LPu hdmUgYmVlbiBkZXZlbG 1cMPVkTG7wCJQqhkXif z6ozcAjGJNnWBWzZ6Xc cmlzdGljcyBkZXRlcm1 czdRfVRB2IAHKHJ5IBF IfQHMwf96sYHTomZdae Z6niMXvxuKlGTVkn0Bg bU2oaDQIHIGrR4koCA0 tOMwyl3KvhGIxuOLkrG S4OHTsc3VeYpIbmkEol NXnkUYzC7YjvEvgH4gz FCRzXJIauxDeoULpg9T yLGJwhTS2oADdQN5EBl DJq19uCXTvBQUKbfJoJ TKdrZanqUL8toW7nT1f LiBJZiBhcHBsaWNhYmx mANGyw554qh4akaE0IF DiCMAcompra0BbLQDuB WHyuJ90HKUsQSUand7w grdsjPGpvbDeN7Jcbru 2lJ4rCOMuJKlkSUKcHK ZzMjJcbGFuZzEwMzNca GljaFxmMVxkYmNoXGYx PXvoN7guNmSnVkMzDsv wYXJ9 [facility] Cancer SurveyorPathology Biopsy Interpretation 2021-12-29 21:51:25 Test Item Value Reference Range Interpretation Comments Addendum 1 (test code = l1umjHPqNWKhxXS4CHD 37) dMAMvg5ipw9GsdBCiqE CxHEtdwXTorjLzdy18v WJ0kM12FV4uIHCoQxQ3 KUDmuoG5Xkb7MPRpXYK wmZTxC338w2gse5edry PybFB3rJuuCVAdhhdvT cZ5MCgbVOOnlvytMXn2 BIqkJIFauUK7CYCheWF sH2UbFMDcRR7mvbv2WK Z9KWkiYZEeVqF7WUAtb AXoIHBwuInlSHkfy334 BNW5ZxPjGGFlhyHcsNa ryW4yBgPaGSPMPW0NHQ DqB5brxwUpXyLRAyinO BXdjzIJsBEmfKA5JFEU iY8cyhOrEVHig0MpqdX ph35eA2UfokXmHVTNLp o9NJacCTybTHLkeIx6v DRJx8XhcYBKbeJwjd7i dGtmgpd3fQQoRaYSlJf qTQVll7G7LYjgLA6yuk QnHKS3yBJlDALchVAYS 9qsQP24VQTsc90cKH1e QAVdGEUyZZVhi16uL8d vbmFsIGFudGktUEQtTD PwQQPbj16mWECjOtDfH Ym1ZTfrYFKkyqTpso2s UCOntkZup2RlNIxxod0 maXhlZCBwYXJhZmZpbi 3bjLIqJIRsZGA9rEDea NXmoUHdmphzNR0nPGey cIBdeHGKLXhoEUF3oI0 zdGFpbmVyIGFuZCBwb2 h3lTVhGYUmv7YoSIMvm GVjdGlvbiBraXQsIGFz IHNwZWNpZmllZCBieSB 0xIRhvGFskDUxB2C4vd VyLiBJdCBpcyBhcHByb 3FtDIDbq5KvtMCfRIZx BOVyR54jzDIehE0kIVU tIVafm6A7vLBgGQEuPM ziHi0wHGQyXCTjZqubF HRoZXJhcGllcyBvbiBj DPQ6VDiiOQS7gI0xZUT 5cGVzLiBJbnRlcnByZX RhdGlvbiBndWlkZWxpb mVzIHZhcnkuIEZvciB0 mX7ghgRdMUIzgkOynpG lS7Nif6WdgsOtWCCOLk luLFTqJTJpFIOhKL64S CkaVU6dXMK5xL6eOOxh hQXjWoDznu92eeKzJXW lbGluZyBvZiBhbnkgaW 62DE4kxON6MRweLNUig 8Yuo5QjTkUUtNKzp9Cl ixZjNQQbbS7zdMhbFKc udGVuZGVkIHRoZXJhcH vmqFNjl7HaEHBmvrIry rIlMj3fWYNzyWQxaJRe YXRlIHVzZSBvZiByZXN 3vQXxQxKTMXOpg4GwHL 8yFEPkeTVqUBO9FAGdq 6NxB7Xgz24vk4QwKFQa hXnol1MrAST8eOXsSKL 4B6fgECJaAAhitVLkRE Lla2RlQ8ueVO2eTREiA YSfujMmo40wRAGlbb60 JHSwtKHtu4LyfDbuBKN fPE8lAWNuZFYwjDjmuo VoGM0ym8HdKyRzH0Ogm kFfuLRnGI0jcSJnGANl cmRcaTBccGFyfQ== Submitted Clinical History m4jglQQyQQFiu3mgSHH (test code = 71461) mbGFuZzEwMzNcZnRuYm pcdWMxIHtccnRmMVxzc 5ZxI6DpTeCkHKrrpqFe XGRlZmxhbmcxMDMzXGZ 0bmJqXHVjMVxkZWZmMH zdOs8lbLRmyKepKnOuE CKgi2lwybUYvybywXl2 y2mwVLVyFgZ4bBCeNYk oF0itucXltNXiGHGtEA w8oB21BKZubS5ruEKnQ SuvhoKaFaE6FCkfTJYr ViY9CCKliFDfUMJvG6u yZWQwXGdyZWVuMFxibH RdBUH9wIrdm2J6sXHny GVldHtcZjBcZnMyMiBO r4TpGKd0sYuwX0MaTVH tElJ7vDLpXMCuAEckTQ QvIULmiiP4xX73FTdxz dI4oSFri7Poo17xq496 pF7unTWoCUZ5BQQrYPT lbZKgGIDgRYP0RGAeqR OvG9lkOAZgZH7djbhpL YawMZkyFBNgmGN2QJLd lJWlT7FuQYElDCvqPNA qfjk8EqDfGh4toGSxiL seZWwyn8ifz2qphBItC yn3AUZfYbDlRdyrPAah a8Hzx8edQPMyml4xJAL 0ySKfnZggx0T6kJKiPL QocTDayqYuIBKhPpA2P BsfDU5mtc46GVYvLJV6 ws4fuAMrwIivwkYnlMB cUJtfX7ArXCRsk196NH JfR8DhQBVll5P7acJeN tFhQIIinNB1cbY5XENj GIb1yUJchlG8riQvfLR gG1cdeH6dQAVbZT3ejy dbt2ixENuqXHahBEGhz VU4gvW1ZOPxwCXaU0Hv yN6oMLTvGPgcBMTdfzb 8McOwRz0ljFQvaLdlLS xzYmtwYWdlXHBnbmNvb nRccGduZGVjXHBsYWlu XHBsYWluXGYwXGZzMjR qiYapzCvqeS9tAuAwSg DlLEgdIA5cJAAgN7gou SMyXAAqXUQkU4reNhUl wX7ekYfgSIlfgvEsNY6 6tYLmeXlhNF1xBQQwZA Yoj2ZprVMzYjIzQqyjO fjrFTHrwgTVlV5aXQ3m v3XnE7I7MA66HWgcaKT pblxmMVxmczIyXGxhbm jlIPToMTrzM8efCxSyO GMfuSdhSKotl1GdBRLu XGZzMjJccGFyfX0= Diagnosis (test code = 34) c2rayWKlGKKezTO1RSN cAPHdz1ymx0RlzRQbzZ ZsZGbetAAjhnCgpq46r IJ0rL01MI6dVCElVxM9 YRRiqkT3Wrv7ENBuXOK [id number] LviBC0rTfhXTFqgwedV nJ9KYgwPLAymqznOEe0 SOfkBCKjlWK6SQLvbTL sU6OlVFTqXZ0lawd0AV C6XLzdNMBqRqQ2SLWzx MZlSSWzwCweHIetk545 FHS5MxAhGBNwmwHjcVk rfP4nXjFkYVMSoN6hFQ YaSQX3NNFmqSSsZWbwN nAaCBZbc9OzuSsjmIRm IEIyeya4LFVzXRIZQr0 LVIGIJY6HBZKdA4CqLQ SCUkFOZzoMZU1jKHNbe pi6ZRYnD6NnMEPrcL0q bnQuXHBhcn0= Comment (test code = 9835) h7ltaRAiAXPusFZ4OMS kCHXja2xvk9FygHVuyS RmKJmitKOvwnKhgg68r BO8iN67GM3mHPSpUbV2 MCGdlyI5Eft2ZRXyFGY xoBJfL253a1top8vhwb BlfIP1fRfePUVwagsnB sN2KPvpDKXucghmJGp2 LZkhHBHbfEC1OEAtrLD mF4MxLPTnDD0qhqx3PO C8USzmYHTeTiF1GLOej NGmKSYluSbzMStjl752 NKO9GePtPXXxdyPewFb mwD0oEgKlXCQPhA13np 5ttSQ5e5UbGC4yP0FvE CY6HZrjjmYyxB16NJWy t9z0vLJfOYY2IZnugS3 rRJgcHQC3aW3wTJZzlG fxZUcmhWshm4MrLXRgj iBhbmQgVFRGLTEsIHdo jVymAE7yQ0I6kWNsDGF vciBHQVRBLTMsIFBBWC 04LCBhbmQgcDQwLlxwY XJ9 Gross Description (test f8lktOQuUFOvaDJZALr code = [id number]) wMVxhbnNpXHNwbHRwZ3 ZcyassVCyaOH4fVP5wu CirdUOwvZJpPH2VSGNf ZmYxXHBhcGVydzEyMjQ rSGOgvQXrzFT4ZQZtEC 1hcmdsMTgwMFxtYXJnc zN7RNOihKTcN0JfSTMq VU0xqvgiBCH0GNswnN1 rhiGFChndBz7tfPTdeL tcZjFcZmNoYXJzZXQwX ZJfnBlgJGCuCHt5gI4U TgbtQ75wy7Z7Rwm5ABH sNIEoI5GnCP1dHJVthT JuV75NMhouGMV1PJBNS dyoVVEyCK5Gc8vyZJAv qJAbQTE2JBpvfOFmSDO jXEQkNQx2NAQcJPffcN OcSY5kkCgkJokhnPnte 2VjdCBcXGlkIDUxMDAy CEznOZGmTQ0NMsDoLGQ vItP2DMohJVe9BPx4DX 2FEzKeASPdAYLnOER9P vYtUDb7JVtbGU2TCWDf NjgxMzUxMzYgNTUyNTQ gKQo2NBLyIFusEAJjkJ FsIFxcZnMgMTAgXFxmY dOeVWVeJGrtlwH2BUZt YWluXGJcZnMyMCBBOlx yWRRqVVqzrIelnI3iRL KpV42qx8IVw3JxBR5PI Eq6tzVstzdecK3eKYUr xsUxRNmhcWJnQ3jwDul bPqTnDxNfXSLRsU9lVS TpHTG8YNGmgJGrHJllZ mUsIGxlZnQgbHVuZzpc TmHlX5OqJBVSsADpPIM mk6UligKmAkI2AY1dNx Nlm00ej85aaCK0fEVtd WUgYWdncmVnYXRpbmcg xY7yYn9iXMclIH3xBGk pLW2zWDKkUWTzccPxdh DnhSQyqUAydBA4OMKjg K2vLFLiFVGwmRTclRMt aEdwDggktOU3ZAdxWna mnZ1kkOVRJJASGsqQEj nhcrQrRJ9GWJ2GWjZOC Q38MrYcYDG9URrUO2BK yXO5Jjo4OTb8lMyoUel iodSikPNiWoJXsV2WYi qgIbteuDX0JKmdGhqxf J1ueSLVRYBRSumNEdmv mqSsGN1ODN2YTF6MpDO aCDB2zLH9WBHJGfapzJ A9lWP9yJ97WZVySBUwr QZzNZwvY156GZWiVOov XNu1aoBzTGNpZePhOFo uBBPaQ26fy5MEb9DqOF Ujl9yrrPwma9OjnIHsC PiiAMQnbJFjDPkopU5b NdKzo3ewyUm6FYbqukG 3ASJlop6ejVwwqU4oAM lpj7gmNSN4KHXalHMxk YHhPEhcoHdaqE0bIiZc Tcl7QQdgELDzS2DmD3O akeA6AYVcLYanXTObEY YgDQp9 Biomarker Block(s) (test r8zpnDKyEQUvgQJ7VHC code = 9841) cHVWtu5eha4XdvBSjqZ SlWIgvsXDunvQqry51o FS5xO43FA0lSXQfUmV1 WPJkceB3Zsr8XSDsJMJ wyEFsX722o6xmh2heji DimJH5zTwbQOOpbrrfE qY7DFofGTWxtyceOSd7 XJegRQYauAU6CCEqzYP vX5DtASFyYO4oglr3DC Y4LHduJUAjMfU9LKHqa MWkDUUagAebDEosj307 WKF9YgNdQDYkdiUrvCh epG1vRiOnFJEYNccgTO J9 Disclaimer (test code = i1gkmAPmFHGyuWZuYjQ 9844) cEYLaTKZmq4imNBPikR FuZzEwMzNcZnRuYmpcd MClNCLaZbUdy8feb641 dOUvx2kiEKMwKsJ3uSR dYBSqwZQgQ711PSVzLK yfv3ewc8FcAQNcgYNdy 8A2HGYLexdpbWe1oJxq D26vk9M9AhcwO5ewBUN sYSQtT2TrBA7bYWZkNg p6OBB1UKH5IPYsHGKzO 2PbCN0aWFRtpMWmJGc9 t9allUqaLUPaYWY1r4c lJVzwleGjYY0oem3glC t0y8zlliGrPRMaZTRin WOYPTDdH8OvvHwmSx2m fTl0gXhpUrjlASA2Kim 0NN3prn96jop8uAarAM JfpwqmDkT7AVlpOUDqp ullFXr4NAdhJOLzxXV3 NRJdtXUhW6YsRQFmDK2 xvcs5QNM0QJtnAIUgQe J5SSGxhNZyUDIqmHziN Zikz142BPJ3RkQcNG2z A9Fyg9B5iJ8lpUGaQRX ulSZdWuKcNCGdoz0wjG BrIFcyn5InMCF8rgK2k SLwfUHhBPUoRZ83Hyue t4JbWvttZFA2DNCbinY fj1Jgr9ptFwKdiuZvM9 enM3UpEBWtSCOsIWMvZ bUdirSje0Nxs9NriJDy vBm7n8lgKXNqNJVufOj sb3gaNRB2HBXwA5M7eA Diz1slLAggFGMoeQL6u sT7SLFzoMUqZ0TsxF0k VPDdAV5tqnu3k2zcNIQ 3VFwxJYBhIoP0cqL9OS BcaGVhZGVyeTcyMFxmb 519AYE0XrYjSUAib0Sa L6VotKikT66ofYmjE84 yDUBxlRxvkX4ztSrkwL 5cZjBcZnMyNFxxbFxwb AHujexfUKmalxC0ZVyg tzveKVBlBOccX8izHcD tUUDjjAzyCQywj3TzQW HlKDBaNpchjoM7EHEBa 63yVQVmw1UbJSIrvB4i eVIdGGoycnTwpHA1UNm hdmUgYmVlbiBkZXZlbG 3aSMYxTV0dFXRzntEvu f6hwmKdNFPlBEUyB7Jp cmlzdGljcyBkZXRlcm1 ajnLmKCA0OAHDZP6MRQ KxKFPab55tQPSmaIlwv W0syHPcleCbCLPya9Yr fU7khTDWBKKeI4xoMY9 wLFwmy0ZrsLAmiTGidP P3FTFbm6GcTvMokkEdu OTzzNYeK9UklNmgO3tk DMQcVOQsekCxiDWzt1A wOBXpwEQ9wVZfVN9HYd IUp86yHOTnTUUKrwHbZ SQwxDexrNT7xdU0qI0v LiBJZiBhcHBsaWNhYmx uOREol995ie1wanU7GA KbZIQuwrcbk8PhRRMsU VGbyY10TFRpAQTohf4t sqbsmSFkfvShX2Weivc 5uU8pRHZwHZfwSTDcZB ZzMjJcbGFuZzEwMzNca GljaFxmMVxkYmNoXGYx DHrhU7ikRbGuUbJjWfi wYXJ9 [facility] Cancer SurveyorPathology Biopsy Interpretation 2021-12-29 21:51:25 Test Item Value Reference Range Interpretation Comments Addendum 1 (test code = j4vvhYCwVNSudIS6PII 37) wBKVde4fma7GsfDAeaH RsXJpvpLOmskAumk43e AI6wD03NM8pPDGyYbR4 RPLyqyU5Bpw2NLOfQLX reODfP122o6kve8agvy BgbNX8yIuhIAZwdygvV kG8RYngHYQjeiipTPj3 OFrwSGBkgOK5LEJdtOV zZ7LpRFZsYM8dczo1OI G5UInuAJNoAwU2SCVwa WAaLMQklAheFOzkb475 SLK6VlCuCEXibaYmpJl adE8oFvNvTIDFQJ2SAK VkM9umhbAeZpOXDkftJ AEiqsSAyIXmzPX7ALMT qR9jjcFvESWcs5PdqyN kh82rK9SsevVeZTUPRo d2RFgjALmyWLQsfTs8l KZCi5OluLYJpcYgzp9i iPtsxzx5wJOcCsFNsYc yVMGem2S7HEhcXW1ivc GzAUL1pMZyDZEcpCNOT 7gqRY09XJSkw14hDK7u OWVyMCDrEKRfy52eC0l vbmFsIGFudGktUEQtTD HhGIAna88ePLJkSxVhW Uo1VYweRHPclqSrvz0l XXEzxcRwo9WdRMmpcm7 maXhlZCBwYXJhZmZpbi 7lrKClOUNkHAV4tTMme XWlqXGeqheaHM4nHTvp xGHzdHWZVRdcLOU0xB0 zdGFpbmVyIGFuZCBwb2 l2xSUaTYDik8OaUUPmo GVjdGlvbiBraXQsIGFz IHNwZWNpZmllZCBieSB 5fVGgdMAxhWGgQ6F8jk VyLiBJdCBpcyBhcHByb 4ZoHREbp6PiqFHnUVNj VYVfC71vtWJkqD1zKRW sABqaa3C9jPOkOQUiWV rbBw7fGTWuRMXlCovlL HRoZXJhcGllcyBvbiBj COJ5HHabJQA3oF0rEZB 5cGVzLiBJbnRlcnByZX RhdGlvbiBndWlkZWxpb mVzIHZhcnkuIEZvciB0 zN1frtEiVFTdowJahsR dU2Dil2OvmjLmZIYPHu hwEBMdDXXdAQGgTG42U VtfBM0uEBB0eY0wGUpv sPAdCaQsbg81duAuKIU lbGluZyBvZiBhbnkgaW 06XS0vbSM8DPwnSXToh 5Pyn1QfFoQThIEvx2Oh ecGmQTQwnN4ruCfaJBx udGVuZGVkIHRoZXJhcH bkvXEus4SkWRDcheXvz fEfIn4uGTFjkSJoiOGr YXRlIHVzZSBvZiByZXN 6eTGdWaMXQHPgo8YoLZ 1dQPSfyOIpFNT2CJNrr 8LpQ3Nga70rj0JcAHLg gWfci3RxQJU1iNLgZQH 3V7naRGWyEPvxcZZoJZ Hwm2LhF5lfLK3xIZAhJ EYimvEio40mBYZynt00 OKBdcBSax0QdxXdnKPG sWS2sWIMtYYSbnOfyqi WmWF4mw4DxVnRmL9Jmi aNyeDYxYC7xeTDiYGJo cmRcaTBccGFyfQ== Submitted Clinical History h0fzdQVtZNHgt8jiCLI (test code = 89259) mbGFuZzEwMzNcZnRuYm pcdWMxIHtccnRmMVxzc 0QuW1RmWkYxSLvbywPa XGRlZmxhbmcxMDMzXGZ 0bmJqXHVjMVxkZWZmMH xmSg9onBLnhGckNwHtP XNte6nplnKUqcjtgHv4 j2vsHXYoYrV8cEBmKCk gM5phpoOkbAXrJUIyGZ o5oG59DCEpcU7hkXBhX FjxvcAaFmL0YRwxDDTy KxG8GRAirKEmTLLgU0a yZWQwXGdyZWVuMFxibH GxKXQ3aXshw1N8iLGov GVldHtcZjBcZnMyMiBO x6QdUGl8jTceJ4GiPYL jAfA8hZElVQGqAPqbEX HpGMVzggE6aC64UOdii gE6dYOti6Mag65wp664 hQ2plIHsJOV1PYXzZJE uqQJvQZDuLDF1XBCijL JoF0yzOXTlIF5oaqdvS ImoIYgdOBAazUS6PAKa jUSsQ2HkOGBdYUeyCQP ymdh3NbWiLt8boEZwiW bnPUoiy0yaz8mewEAsF yy2OBPrNmDgQoymCIxf o7Qan1ghRZIayb1lVIO 2uBBkfQawb8V5iGJcQA VfbQIadoJhGPKlCnN7S RobAG7kyu21YULnNEK9 xq3xoTVnuIfqivAdiNJ gETopM5EdNRJtt313YM TjI7QjRLOhs7W1jgTuT qYoHCTrnWS0xnZ9JNSi AIu8xFRelgD0nzZduEX rE5qzrO5dSIHyHP6kpi znc0zsJNosJBciDEDcb FB0qxH8JNQvgULjN8Be aK8nQNZjGIkjYGUeyjg 2OuXyHl0saDXrsFafLS xzYmtwYWdlXHBnbmNvb nRccGduZGVjXHBsYWlu XHBsYWluXGYwXGZzMjR xyJxxsTvcnP5wTiWiRg UtVFcfOB3fNRHgS9vyp XOjMAOaVMGcJ9naQsZf tT0bkZlaJMvlylJjSP7 2gZNpxJdgWX5zBPQiSX Qja5YozOFvXnJkDgtbR nzoUVBfdsIUjY4yAN9v x3SyD0C3IF66GGycfUD pblxmMVxmczIyXGxhbm iqQCHyYRndM8wlUgPvZ BNmxEdtWXpvw6LhLKVx XGZzMjJccGFyfX0= Diagnosis (test code = 34) v8qlkJCzCAIirUH1ZWW zIXIkc7tpz0GtbYOgpK WcKSydiZBewuSmiy70q UA1gC17PN6qLXUmPuM6 FAQqibL9Stx6EKBnUSW dkNInK448o0msa0zzqt MwgDC7rBrcTVFrwdwjS cQ6HFucPKNjwlsbAGz7 QThvGMNuuYA7UUYorOF uX2OkXDAwJS6dzfn0GQ Q6SJteLWBcQtL4SJXdt QKtZGDabZnlZDvro218 AFG5XsPwWRDeqgXjyBh ezG2gGkOjZGGTgJ2oOM DcBXX6HWIbhWTaIQlxW gAuIPMnk4KasHearGGh LNAqkza5FTIlJEAGEn6 VDIGXYL5TAGExP7XfLO MKRdPGFdgTAZ2lXTOwm ao7WJQbG8HoALCtpX6v bnQuXHBhcn0= Comment (test code = 9835) a7mvmPCgUKPuuGV4IAI zLPNgt7cqh8RojSHtiB MsRAauyVJcsdIzcw02l LM0kL67ZA0hQJYfDgY4 DRTxgoX3Wru2SQFeOKU jbULeW425y2zbc6eukg CjuON9oRsrCMTattbaR eT2PNuqHJDichgrPDf2 LRawWZTjrVM5AEGdvOF gV7EgUPCnYX3tkbo2OR W1VOkbCYJcBbX3TPFov QBcTANhxQyaCJxwy417 LWA7NcTjJLHewuSqoBw jiJ5lAaZtNPLXoG67uh 7deNE9y6RjTJ4eI6MuS QC0QBtvlpVxvZ43TTGz e4n8aJPpFSN1SEhqfK8 zOWigNOO0xO3cDVGunK qbORgueGvab0StMHUoz iBhbmQgVFRGLTEsIHdo dWbpZM4gS8L3fFYaJOK vciBHQVRBLTMsIFBBWC 04LCBhbmQgcDQwLlxwY XJ9 Gross Description (test z1qjuNWjZQWblFBFDEi code = [id number]) wMVxhbnNpXHNwbHRwZ3 FbnrnuTYofQP8gME2wo GbstVHftQVeEQ9HFRPq ZmYxXHBhcGVydzEyMjQ lRWIdeEBgiCB4QTBkBB 1hcmdsMTgwMFxtYXJnc wA8ZVCcgGFhI5XpVIRq UF2odbppWHU1AKmnnR4 bygOAEcoyGd8ubQGfvN tcZjFcZmNoYXJzZXQwX NCriWbnVQFpHUs6rP7W IxcjO99ut8O2Fku0TUP hFKKhE6GaJH9gUPFasZ ZuS20TImzvMYB0GQGQV yoyACNzTX3Fy6jqKPQm sKDcXWY1LYbhbUQdLPK iCCMdLRz7TRQgWOdrbD KoDH7kmFrvPrxgrEkjq 2VjdCBcXGlkIDUxMDAy JSdyIUNgTM8UOuLjFEH rMdI2RAzoSWm5ITc2JD 6ERsRzERDjTANsEHW4I nAuKQy7BOwrLC8BYSJj NjgxMzUxMzYgNTUyNTQ bXDt9HYEgKTwrEOAweQ FsIFxcZnMgMTAgXFxmY uArVNHxKBxshjF2MXNx YWluXGJcZnMyMCBBOlx lTFKbDZalpVnecX3cWZ JtC82xg5YIz3KfWX0BC Yu6cpBeudctcM3tGSOh gaNlBWzvvGRfM3mmUib hFoBuBhLhWGTXeG8bOD OfNLX7ESHxkIHqMIcgE mUsIGxlZnQgbHVuZzpc KjDzD9TuZAGIjGHbMDQ qt3EwzxElUsY1QF3wSw Wvw45ou45giRG6lFPxe WUgYWdncmVnYXRpbmcg eM2jMf0uUGhtCZ1bOJv rNH2sPSKoIZGbuoCkzy AyfSJpdJFrnCV2OGPvm L5eINGhXXRoiQJpmHCb xXxsVsnqfZL2IAyrIoa vbN9qaDCEOUDVVvdHSp wndtGlRD0GCA8LJuTZG N75RtUlHWA8NIfWV2XU pAT4Blq2SQu3eFahXwg sysQidOJtIpYBvS1PQi ecDmowwED6RSyxRprby X7lzOALYBXAGphNPuqr fzBbTT1EIA1CEU9RnDZ sSAA4bKB8RCTEApfplS P9uBO9pN36ESDcMHAir ODbAKwmE296XTAdLUki PUg0mkZvLWVsVkBoBGa dPEBeF85sx4WMx6XfQD Qrl5zztUqhn7ZtjPMiT LqxOXUekGLgASfjmU9r VmWqy0nehJq9VHefloY 9HDJjgn1itLahjV1eNO bmh8skBHO9ODCwwYAyu APsSLuvkWpzyX7eXiLb Eny8PBcaCPMnA4BrW5I bsaU4ZDAjVTxaTPSgKR YgDQp9 Biomarker Block(s) (test s1svuFWeNPOxxSQ5XJD code = 9841) tLPXuq7mwb7LyeKIceC ZvIStgeSJiucWktt54n CB7nH25JQ7qJNHcOrZ8 PGCjviK5Pkq5RLEoPYC jbTTuH150f5zkn0qmse DgxYZ6dXvdDEYadsiaV qQ3PRmrHECricfvCOg9 SKwvVHDzsYW5JIJrlYG vL4ZzJAXxMU7llah3WS W4LVmqBTUdMaK7LHXkd SMpQFAfsAnmEAfej099 CHW1GgLaCELseqCdcBh fcM2mWpOzLPHBZgqfOE J9 Disclaimer (test code = l8ysvMSjRPXoeRStMjT 9844) hOLMtSQPlp8geLACqpW FuZzEwMzNcZnRuYmpcd WWfSVBkEyUcx1zro829 aREvy8dgYZUjZeJ7tXK hPDWhpQHqW309UEEhVO ssq5eoy5KkFEGjcIHgm 0R2HZLLqjtqrLt5cSgs Q78ks8Z9QidxG2nhRYL gBMJoA7WqGK5pZUFgZt t4OBS4BMH1KCEgIHRcH 8QeDU2mLRNhrAPvDYh1 y9sznBhaLCEbEAG3z6z qXFqbpcTdVK3ixd3bcL e2j1wkunAgDJOdNMIom LKIAQEtO6LjgPwkSx1b fQd2hVzpWkcsJXK4Mvt 6SH0rsi60dmi2sNfdFT FeahloBfU1XErlLFOaa goyDAm1AFjaPKIckAO3 IAMbkEBuC2AdNZSxFM7 trqc9BJM0DOocDKCbGw D3LVQntHPiEAYfvPpkL Vsvs217TUW9JfBnQN3f H7Nbd9V0lP3dqRUvWTX isYTnSiTiIMQzrm9efH JmYLphc1QvWNA5zxB5p WOrlLZcIYFfEL78Ymog z5DbWxpoXJG4AFFthlH nj4Ipe5ddOySchmHqF1 poM8GiXKKmUNHlCYRzB iJnfhHmn7Kkv4DcxJZy kIw0e1poBOHzWTRfgSg jr3cuYTS0XVAzT5A9eD Zaz7vaCGdhPTLatLU3w iV6QORbbSTkV0VuyQ4k BJCeEI9klir4b4ntSEX 7QIjqTAYcUtS5oiL9AE BcaGVhZGVyeTcyMFxmb 622KUE9TcYwSNFtb4Zn P0LwrHzxO67mzFcuX26 xHMWcgDxbgC8fuAzczH 5cZjBcZnMyNFxxbFxwb QSntoasGVtbtdO2UNll oiwvBNSeLKtkB6zrKnU oTDSnvKmfTMpzf3KoLQ CqQDLpYtvywcI2DOJXg 54kIHTxk9GcBDIevU7h eRIwIJvicyIzvUF1TZs hdmUgYmVlbiBkZXZlbG 9fUWLlNI2iBZKyjpUqp h6dngDpWGMmVFJfY1Kc cmlzdGljcyBkZXRlcm1 isoFdTRT9OFGZMD2BBR AtQEUhr03xBLCrvPcrt A7kkWMjicTaSOSse8Ny hS7puLDRAUYnE3kyCZ4 qHEqpi3CbqEOeuYGfpX B5QWRwh2CqAbOwjwKgn AUxaZLuJ1XdcSgkZ2lh WCVsBFLfueLpcFWhj3O zUAVtjZG1tWWlGU7ZUx UBt60yAPGvTSEIonDoL NFvgWieeBN1vxE1aS1m LiBJZiBhcHBsaWNhYmx fEUQcz025nh8oigT3BN KjCUMlruwyh9LdIDTwN AFqcL65CGBwOPWvls9d cprpnQZeiiAlL6Uflcc 1bK6fVCVcYPbzFCRjNK ZzMjJcbGFuZzEwMzNca GljaFxmMVxkYmNoXGYx QGwjK4ecVtPqZxQpNbi wYXJ9 [facility] NGS Blood [id number] 20:08:22 Test Item Value Reference Range Interpretation Comments Molecular Diagnostics (Received) (test Yes code = 8400) [facility] NGS Blood [id number] 20:08:22 Test Item Value Reference Range Interpretation Comments Molecular Diagnostics (Received) (test Yes code = 8400) [facility] NGS Blood [id number] 20:08:22 Test Item Value Reference Range Interpretation Comments Molecular Diagnostics (Received) (test Yes code = 8400) [facility] ROS1 Fusion Analysis Collection, [id number] 20:04:01 Test Item Value Reference Range Interpretation Comments [facility] Diagnostics (Received) (test Yes code = 8400) [facility], [id number] 20:04:01 Test Item Value Reference Range Interpretation Comments Molecular Diagnostics (Received) (test Yes code = 8400) [facility] ROS1 Fusion Analysis Collection, [id number] 20:04:01 Test Item Value Reference Range Interpretation Comments Molecular Diagnostics (Received) (test Yes code = 8400) [facility] RET Fusion Analysis Collection, [id number] 20:04:00 Test Item Value Reference Range Interpretation Comments Molecular Diagnostics (Received) (test Yes code = 8400) [facility] RET Fusion Analysis Collection, [id number] 20:04:00 Test Item Value Reference Range Interpretation Comments Molecular Diagnostics (Received) (test Yes code = 8400) [facility] RET Fusion Analysis Collection, [id number] 20:04:00 Test Item Value Reference Range Interpretation Comments Molecular Diagnostics (Received) (test Yes code = 8400) [facility] MET Mutation Analysis Collection, [id number] 20:03:59 Test Item Value Reference Range Interpretation Comments Molecular Diagnostics (Received) (test Yes code = 8400) [facility] MET Mutation Analysis Collection, [id number] 20:03:59 Test Item Value Reference Range Interpretation Comments Molecular Diagnostics (Received) (test Yes code = 8400) [facility] MET Mutation Analysis Collection, [id number] 20:03:59 Test Item Value Reference Range Interpretation Comments Molecular Diagnostics (Received) (test Yes code = 8400) [facility] ERBB2 Full Gene Mutation Analysis Collection, [id number] 20:03:58 Test Item Value Reference Range Interpretation Comments Molecular Diagnostics (Received) (test Yes code = 8400) [facility] ERBB2 Full Gene Mutation Analysis Collection, [id number] 20:03:58 Test Item Value Reference Range Interpretation Comments Molecular Diagnostics (Received) (test Yes code = 8400) [facility] ERBB2 Full Gene Mutation Analysis Collection, [id number] 20:03:58 Test Item Value Reference Range Interpretation Comments Molecular Diagnostics (Received) (test Yes code = 8400) [facility] EML4/ALK Fusion Analysis Collection, [id number] 20:03:57 Test Item Value Reference Range Interpretation Comments Molecular Diagnostics (Received) (test Yes code = 8400) [facility] EML4/ALK Fusion Analysis Collection, [id number] 20:03:57 Test Item Value Reference Range Interpretation Comments Molecular Diagnostics (Received) (test Yes code = 8400) [facility] EML4/ALK Fusion Analysis Collection, [id number] 20:03:57 Test Item Value Reference Range Interpretation Comments Molecular Diagnostics (Received) (test Yes code = 8400) [facility], [id number] 20:03:56 Test Item Value Reference Range Interpretation Comments Molecular Diagnostics (Received) (test Yes code = 8400) [facility], [id number] 20:03:56 Test Item Value Reference Range Interpretation Comments Molecular Diagnostics (Received) (test Yes code = 8400) [facility], [id number] 20:03:56 Test Item Value Reference Range Interpretation Comments Molecular Diagnostics (Received) (test Yes code = 8400) [facility] [id number] 21:47:58 Test Item Value Reference Range Interpretation Comments Gross Description (test s9ygsILoWDUmtBIZYNgcU code = [id number]) MexfbFvXVGyfLEaZ3Jcxi khXItpWQ1hKP5wwQaemWZ hmVXfSZ2XXTFjMlBlNWLp cGVydzEyMjQwXHBhcGVya WK9PJVhGE7uiolrSYspXG gnYHKukpU8CXAreACxN3N cYWZnAK1xqexsDXS4PEze iQ8mnsOTPtrvIm1lwWLkv HtcZjFcZmNoYXJzZXQwXG CxfMttMGHuUNa8aT4ZGis mV19lw3T5Xau1LCZmKZTy C3AdCG3mUNEjkXAbP10WJ tsmVPH8HULDRvqgOOAuMZ 4Lu1zkIILyxDPyLLH0RFz mhGOuNVLiRGSdSMo1VXGh XFzmxCNmFY8edFouVszpl Vrpn6WhzJMwXJlxYIOsYV AwMWkkZAQsUQ8NOxMrCDL bEyM3RzXeONj2EGs5EN0M UyAiICAgNTEyMzcwMCIgO Zh1DRoiUP4AJZFlZAX3PH L0GJTlIGXcIzUeYZr2TKP gXFxmIEFyaWFsIFxcZnMg MTAgXFxmYiBcXGZsIFxcb iK9PFZkVGfzUDThWsToRS BBOlxwYXIgDQpccGxhaW5 dGCLoW23nh6LHt6IoVL1U BPj7mmBvwdxxoQ2aBPDgx aNlCZpmsXGqQ9tkO6UyUX ReUyKjU9MrU8qzRS1jBUR lj9T9hfOyNnfdKKJmMMxt IERpZmYgUXVpazsgMyBQY AMsY9KstG1fW1luAOAdYQ BhciANCjUgbWwsIFxwcm9 4BRS4o2qfiYCkVSuqXwzd wLNvesE6KSdXDICWJCyYC wHrJE4qDJbYJ0HPQYzIMb geKIX8XDkokCI3v7xsiNJ cc6s4RNjoGWD6yGEdoYua hTq5ASTew6YswBFwtULfh ZXcuGS4BIOlAFbxs4hbQK ZjIVnxc0GtPGgTEDEKXV2 TIH7apWF4F9uKRMGGK2dK uOO6i0lspLQvq0o6NSpnI MT2vJQwm36faDzxIbuvkH Z4OZszGehibV0akRCCAXF DHahGIyvkpzDuSW2KKGzH WG7TlQP8q8pecRIxi1j4B CujOYO4qLzsfZQszjlloI HzmAjynu16BIT2RUFrHRr mczIwICBmbHVpZHtcZmll sPJ0GQxqAgazdK4gaOWGI KBIEvdTZqgpkyWaNC0MCI HXJZ0RxQH2WmHowIK4DI3 3DCApDCCunZVzHIqjR527 MZNkCQzgALv5lwYuSWXwL JgxjeOfCMRbwsOWCZ2HOW YoyvHTFpPhC2KrpMIGnI5 dc2hgIRUyDBfRQEMdC1Zz gJDzZIniZ3IzEJbnOLXub f8cvModFvNntLJtxHHkqL htKuA7NYZbYQwcv3oaRJI nZVclf3PcVHaZCQYVNV8P IE5fgOQ3KUhYA7RUY4lQp BShNIwezIW5OF9AKYkVTC RLtAK3wCvktQk3x4sluFO sf3l7YAfmUEG0jLL4PsT1 SbXfi0njlHStVWndJguot FHtqpD4BVzGLHSVABjSEo NvFD8hVEeLBlpZDxB7GZH sJkE0B3jRB7QFXNEKUGY1 VQs7sTL2hQ30BSQmTATbx MChZLyeY219FORyLRvtFZ p4rgFwVBEsKgQlCRSkXOK ro6FaT0U1FMYdGZxza1hh OBWwACsvv1PiVLmERKOVJ I8PVH3amOT9TWwHA2TUH4 uWcRiefSB9Se8IdYP8jYc giDn4k2ehzTPbi9j9BDvl LHP6nEK5ZJHfHP94PKCnJ Gyqj2ehDSVpKXqxo5LkJZ dUODJPKM3WMR7ynPW5KNh FJ0JBJDl6Pzp3xI5AG7la jPv5KJc6mDopSstfrbMdv KLpHyZDtH1duDzfyB2xlL XwJ5pkF1PlEJLpVlDnUMa bYATmVLryzQEhEA4AO8o2 HEvtYc9aQX9mPUSrphDKG oaxFhHiV8ZzQ9cmQP7mWK IgfRIqB3ogi1RoFQJsuoA szs2lGLHnqHJVTqDXWTT4 lY0hpbqjV5DcRPWUENayP OrpxrFSZUHSXEzKP3PyJM RPESMYJLFrFvFUGV7pAnD 7WmW2YQ84IqpiEQREMQBR OKwJJQ3AYVPSENWNCW3IA dDeL8nYSMPSNoIoOYSWPA WJDUOnZrRBUT5gElm9Ojb wn3W4U6kJAOAGNwQaVANC QFDQFBVjFA8TDBGGZNPHW Z0LDOSLR04MHUIEHKXUE5 BTU6cBXKSji4OqvSdoWeP 3ZrGiZX1eLBkZS9VPZ3eP LWWxREPAOWMAUXTnMC1VB PcYPF5MFKZiWPSGGIJRQO LnVpFNID8lZPvJMT5BHUW oBOBFQOVUUKGkYG8VRTCU EM1XOUFNHLWNR47CPKAHE OBCF4WTI5aOVKORFPRFHj WIGqWJOR4TPGZOZWPYYY2 FTkQNClxlcGljTmVzdERv TuRextM0KIYhiBPhGMA3Q C9oOSUjacqqNABfSKIfUX A0HHdvpS89kTDkMGExIRJ ccGFyfVxwbGFpbiANClxz jF2kBvFpk3gnkDy1QWWXH tjbiQNsxpjhuqK3RXQes7 fbjFchz2PcaAWwNY6dhRe frK4zLjUaRlUFIw9= Immediate Assessment Adequate cellularity (test code = 9837) Major Classification NFMC/benign (test code = 9839) Diagnosis (test code = y2upzKFaOJSelZK3DSQqS 34) QTce3lvb9JpkMJbrJThWC mbiKJlnxFadb25wGX9gT7 0FQ4dUPAvCrF0ZNFgxmP3 Pem8LZPuZNXvsTFpE731i 2iou4edthUwkEA9JJCkOF GuY9IpVA5pXQTzdUIkB94 uwBZyKHG4QFRrFXEazBGa CHYbWTT9DJMbxTMvI3kkP WRmQI7xodhoTCzpTQasSG TliIZ3BOOszXBjI8CkXUC cRVuxDSUspnh0NyUgJj8u gOGybQqcZRbpU1jgjH8tB cI8DDryV1ofzC1xIXf1DQ jrJHNtkCJ8shM5ITOlgWS aR2AloW2uEUWbJG4pjlu0 h5wzCGY7TAttEUClYiF4l mZ5OHIhsGOsXUvqcJPsyz xmczIwXGNmMSBBLiBMeW1 dsERsc7IkQFYgSWAyjSgw jJzlu9QmYHFbp0SqeK79O GLky0WpnrlzMDULceixVe luZSBuZWVkbGUgYXNwaXJ hdGlvbjpccGFyXHRhYlxw IVOzsXt7DaRlzTjvWzYjL QUoXSVSnkYoGKUvw0EafS mbZFGjacAnpo1kYUCxDUW qsRszmSAuMCRridFYq5a7 wO0rgQjnmMCbmKbjxGmag IIsN2QfpVZjx4C2eXG9aH 0vRHWhtlDkj6IsflQpq4t 8jUQpiD9xnVKzz5ZgUKZz hSUelZ1eNYMvna3= Comment (test code = e0rwwXZwNAKrsBE7UGZyN 9898) QUdk3jwm8LabPYprDJeNW ultSFehvJcfs60cDU6oL0 7DE7gSULiDlP8JMOkuwY5 Gmj2YZOrKNLysRPtH148u 3iob9zmtoOpjJD9sYvpUQ VdcgbmMtB4CNrnDITwnju uZQq7AWgmXIKfqEJ6GJAi gVUsE2NzXNLcTW4xcog2A HN3GJkqZRQwOjU3NLNruG NpYRShnPfwXJhsh377XKC 2OyObAYJipoAukNqyrW3h LpHkEXGHaQAsI4WzrQHyt F0rxuXcsgTtKEDauYrfnw H5KUYgR68ztAPwSsC5y7Y 9RJYyr4HiWXIcOKtniqhh kXnaYVMyf5RaYYQmFUqhj 4Dyrf6ejBZgpR== Retained/Biomarker h3mhwXFkFWRgqQS2PJIaN Testing (test code = HRwb7baj2KgxVCazSSnJK 9838) oijQCtqvVygf78tSV2vI4 5SD7eLKYcOdJ3IMGrudL0 Sym4HVHkHAEzcDKdF535s 8bkn5ynhpKcdCV2dCoxEV KdirqzNpE0QXqlYVKvisj wWEc9LJqtRCTfaRJ2TZQy jGRkG3NqUKRtQC3mdju6E TV0SSevCIHrCsR3OAOdpS DmLEOvxDapPWihn381TMR 3RsEoEKMoqhSeeMrudY1z ZnMyMCBTUjogNiBTLCAyI ENCIFxwYXJ9 Informational Points s6ndaEReRZGrvHLpNdOxR (test code = 9836) DXsJXVwh5scBHZqdKDeBa EwMzNcZnRuYmpcdWMxXGR sXtNjk6dfj397oOLrt1ga TOZiHrI2yCEzFBZrtNBxW 895IPOlBAqmt3xxt0BlEY WxrVBpn4T0KBDEHMvuRIU OURo5t0zuVxWfMqB5lDIb KRhkN5rdcuVgyXYyEUUfS Ez2kC49CLEzlH4rsZCcCY nyhfJcQnB3IJgfNIXsEwJ 3BKIrkKPjAYJpU3rqDBAo PYkrPRKrSPevbWNgYQO4u Cgpw2W1iAFsvWUpbRmvYg GoBfAoSrCDl5QrBPr7mRy hK2AuETWsRnV4cXWwNSKr ZIwoRECdWVFyzsA5vO65H XfdrwR3zYRhw3Oyf92di2 64cS2dgGRpTOK1DQVqNHY gjKDqXXDwAOW8LRMmrPLi X5mxUGMaQW9vgzbdXGnxN TcnYPQgwCU7LEEbnUSdX2 ZtMDSqQXjkLFSfpdp2EdA cLk3nrTSpqNjwHSoro8hu g4hkxGDeXnf6UAYnKoHpR tkrYMxjo0Wbt2cxGBVeor 5kWSR9yPIuvCpld5S8uIV xXGRudGJsbnNiZGJcZmV0 LCchWQ0ynh27IROcODX2e b9sbRGrkGdmanQeeKKqHD blQ1SkKPBgl850GQGuY2L vQQPzh5D6csOmMfBsWIJh rXD0eqD5ILKsYHi0mKRis yW1tmBseXUaD0dsaM7nWL CfOT1jtfnbx7qpFVvrWDn oYYPjlGQ9suJ3VGTueHMc N8PnnW1tGUTcFOdeJYVad un4ZiWyTr3nhOVodUvwBF xzYmtwYWdlXHBnbmNvbnR ccGduZGVjXHBsYWluXHBs YWluXGYwXGZzMjRccWxcc HzgyO3zMyLzNfIvVMbwCK 8pGTMfA8vcjGBuDVTxFDW eM1dhHwBbwM7siGoqZLjn wsT7OGbmB24dVOO1QQT3s yByZXBvcnRlZCBoZXJlIG 3sqWJqMKBiTGWrIZ2yWQF 2ZWxvcGVkIGFuZCBwZXJm i8CiJY7mPZZbvIKqQVZ7C SFkc1IxK9DcUFH6YUGzoW 5lZCBieSBVVCBNRCBBbmR wseNxvjCPEXWam6umK6hb YZ0vXRwgPx6pSDQuxgeyU WVkaWNpbmUuIFRoZXNlIH Wud1BhIWhabwYcot25VVQ lXX7ei0IaL9bsyIOjvFu6 GFAoQFUxAIKgn8HeYUQvo w56QWRxMnudjSrzTNIdJl 0xQg4zKNGqsrTqOOG1SfN TDE4zzeujhJWjhWtevi5z XHBsYWluXGYyXGZzMjJcb GFuZzEwMzNcaGljaFxmMl fvAcEeUHFqDSgkZ6xtYlV cZnMyMlxwYXJ9 [facility] SurveyorCytology Image-Guided FNA [id number] 21:47:58 Test Item Value Reference Range Interpretation Comments Gross Description (test y1cobDGwBTXabRIXGGsmQ code = [id number]) LztzvGxQNYzvKHhQ1Kodp roVGkfMN5bPY8whSzuxKI vsXIuAF1DUOIvNlXeQYAx cGVydzEyMjQwXHBhcGVya LI3VIFbRT4jmbmgSXfoCQ mcFSZhntZ8FNXtnOUqT7X uMUThJN9ssjmyMKX6HQfp eI3xilWOJizoAt5cvHTxw HtcZjFcZmNoYXJzZXQwXG TjgPpqEEDzYXg2vN9LLyy bA46ue2K5Opo1BMKcONDf A3CfWI6uQCWtdZBvR73FV lskAQB6FGZHGdtaSUHpLO 6Zp6iwJKYcnGJqPJX1KHt ilMVjIOGyLNKnMCp7FSVk AGbekASaZS0xyQzsXctcb Oueo3NgcKKtBNjwCMVrOB UeURrhBKPnLV1TIkAbQJY pMqH8NtNyCFy3XGv6HS3G UyAiICAgNTEyMzcwMCIgO Um7DLndGF8YEMShCLK9PS S6GWOeMUOaUwKkXHj9TFP gXFxmIEFyaWFsIFxcZnMg MTAgXFxmYiBcXGZsIFxcb oN8FBZuKJkvUWYhYjRlMZ BBOlxwYXIgDQpccGxhaW5 hIPQwT00lh4URn7OeJP0J ROi2vkSoyjlnbL6lYZAbi gLzXIpfbHWgC0baV8YwYG RxCoEwZ5UhI2gkAC5gOAN ej8J5zdCyYgzfLKThDCpt IERpZmYgUXVpazsgMyBQY ZTyP2BkfE3mT9zhWHYfND BhciANCjUgbWwsIFxwcm9 5QNQ2p2qevXHqNAnuHkcy lEPtnwU6ACkRCSNOWNqKQ qRcWK1aXNtOG9MSMDaTZk caMKX5SSxtpMA4v5pchYV iy0q4HNmeXNX2iNWjdLjw pPw7TFIvw6OszIYclCCsq AKagGF1ESAyFEwhk1lpUY MtNSidb5OgTGiZKVXLJL5 FXC7ajHO1C1tDWPJXQ8zC wTQ5e4dibSTts4y3MYsfF CQ3qOOea34ciJygJqidwE W3JNrwBbtnkQ0okYMJHQE FRdqOFlgqhiOhFA7FUGiO YH8VwUG2t4cogCVli2w7K UmjHSG6fLkjwTBbfgoglL TrgHxazy12SUX9MBBtWQh mczIwICBmbHVpZHtcZmll mEH4DMjwMazyaY3gdLVPC RFTGmePQsnfeyUzNO2NPC XAQW5GeLM7WwNlmPP2VA6 3WLImZXLqwSFqLYimZ215 EJUyRCroCEe5dnMeFFXmL ZiecpJzLWFdbfRJZT7GUZ SoulYZYiYcG8MjyYHIfP1 ha8riTACsMToIXCNkY2Ah qKYhANxrH1LwVSgmFAMoo n4rsDulMyZtyEZqnXHrkE jzRmF9LHKiVEcng6huLRP hZDvbu4BnTIwSNZZFOT3Y TH2qcDH9IUuFY4LMP7bTc AKfIMgknKV4LF4AXJnIUR GHeDW3hRsrhMi8o5guuZE hd9e5JXhoCPH4hLE8KrE2 NcZlx6gaoBJxHIoyYnxas YPmbuA0HWcPFWMKVRfMCu SqBJ0pHAuWMkgUCgN0EPK bPmC5R7bPZ3PWJOTXBON4 ITc0qTI3cK20KXJjYRSfj QDjBMmgV062JDKeCJuxCD y2eaDqFPQfOqTvGUOkWRZ ml7WqW7O1ZZBoDIijp6qi ZJRuLMkdq7BtPHvYHYSUA W2UTD6xtSS8BQpDW4EAF8 zPjMpoiLY9Mf6BuFP1pYi tbXz7c3ykuDGio2x7MOjf HYB0rIP7LIZfTE80SWNqR Senu9yuSIOoGQnoz3CyMU gHACDSVC2BAD8znUT7VRq WF6SOUPg9Gav8aJ0CX2jt eMp1LEm5uQizMzggkiBnp YKmYjFVqS9drTahzX4mwU MmF4hzI7NjYKXxDnDaKVm zAOElULxppTRjZQ4ZJ4t3 SZadOw6tRA5wMPVjxyRXP xalBlHwN0MkV1cnQF7aOM MqiXAeR9xdr2YdNAMhzaE mvk6vLKDdiLUODrVVKMI6 hB4rrkgvY9FcZTRRVFuqX RjkffEBDJUEICuXT5OpAZ OTYOVTBYToUbBLLD9uDfC 2AcQ8BH07EygkFFBPUBIC TReQRC4ONRRREIYHPC0ZW dRkA1jVMNTQAwJcIARLXN IEAPPqJzHQPR0zAls4Ryn gi8T4Z1uOXDOJFqNaUWCA NHBKZVAiBL2ACHICCWELO D6DEGRAR14FUAWQHLUPQ0 RHM6qCNIVdc5BwfCxsUkZ 9ArGzUU8iDGuGL7JXM5mY CAYaLSBREERROERoAB6EY KlYVL3QMCOnARVXSXDZPS TcLsBPMD1mXXyDNZ1HNKQ sDNWUFVOZKMNzRZ9CAKSK OO1NGLUBMJIWJ45CBIEWO TLJG3VAL7mLIIOWYADXRw ZXYbELBB5DBOYFMMLQJB8 FTkQNClxlcGljTmVzdERv SyTsfjC6NYNarMBsPNN5D O0yLWAsxyilUKCyODGeIA A8JBqwzY44pNNpKBLfEGM ccGFyfVxwbGFpbiANClxz nK4oHhBeh9pzyJb1GKNKY lspnGIuaycthzK5PLCtd2 urqVrmp3YrvGUuNU6puHo kxK3pMmEaHhGUUi8= Immediate Assessment Adequate cellularity (test code = 9837) Major Classification NFMC/benign (test code = 9839) Diagnosis (test code = y4queLVrDLRxcLH9ADPwR 34) MUqj3kyk4CbeWVzxEWmFL kckMHzmxAjvx62rJN2aX5 0UH9yIMKcJyF0WGKjmxZ4 Pza2ZFOyMPFikSIaR312m 8gbq4bmrrGjwSG5TFYcUD IpZ3YwHJ1eAPRxhJRwA26 fqXEySQC3DKWvVKNeoUSe IWUiBWT4PJEmjLMtY2hyF LFpAK6zolpgJAtgWApvLW MioZQ3TAJpqVRcY2OlJLM sVWhgGMWmzjd9CnVySj6z lQWafGzrQDwtJ2ujcP6fA hP3MHykP1accO8hBSh4AG brSGRkdIX3wpJ6SPMqyEQ tM5NfeC0dKRIfBK3tzwf4 x8huCLB8YSngQQDiCyQ9t sF3TEGzdXLsGWgdhZUnir xmczIwXGNmMSBBLiBMeW1 mlHPip3UmNSQtIMUulLxa tFbjk4NtELJty1WhkF62Q POdf2CxajoeVPXBxyxrMj luZSBuZWVkbGUgYXNwaXJ hdGlvbjpccGFyXHRhYlxw MPRyaLh7XtFmrRjhAwBoW DFmGZPZrxQrKFRnt2MmlY qjFPMzviErgx8fGKFxRZN cwJlcgLIaDERgsyCOj1w1 zJ4plShrhNCnvYjjqBguj BWnR3RqmVTcj6W8xLP8pV 3iOJPcyjBff1XaltFvc2d 1pZSveH4bvOQvf1DbJZMr xFLibR9oQWBnkc9= Comment (test code = q6bbuPArSTBvuKW3HJWpV 9835) GYub4eak5HtnMPcpSJjCF kbcHEgimLwno89yDF2sP1 1BP5sNUXzAgB2NXKjgrQ6 Arq3RJExPOFxtOPuO045p 2sva6jhaeOsuZK9fKpvLE IktgelDcQ6YHbcTUYacjz jTGf8MGqeHYKumRD7KBDz vHCyK4UuUCCsPK1vnap6Q HE4WGikMIRwByG1XJBjuB WpPOZpoXluBIxrb576YLX 8DrNhQWMatoLdeQqekR8e HdSdZDNZfNOdG2UktMBkz Z7mlcXgogTgGPCupMnusy B0KNKbO10zhYToDiE8s5O 7GBBat5ZbWHXtRGyvyqoq pLmhAGQsn0SaCJAlIXcas 9Exgo5ikULhmL== Retained/Biomarker t8utyCSvNPJovXH4INAtV Testing (test code = SLst9een9IonXOjlUYrVV 9838) loqHTthaZaon21wIW8xC7 4TV1iFBAjLoD1RLPqkwQ5 Ran2VHMeWIDpzIMaZ176b 1dmd2pfhxHqzTB8cFtqFE GjhvvnUrG8STrkOLBfyxt gBPp8DBptQDPzkVY9BVDh pMEsQ5OkSBRxAM4nrqb1I FQ5KIriMJAdCcE4WERhnV FaXUCacQruIEpxx803JVB 7ToXrNDHzboUpcCzzrN1a ZnMyMCBTUjogNiBTLCAyI ENCIFxwYXJ9 Informational Points q9fadDPpUORutQVnIqQpV (test code = 9836) DWhDZKyr0bvWZEkoKToLg EwMzNcZnRuYmpcdWMxXGR yElLqd9wug462wTFme3vm HCMyIlK3rBBaQVYgfTNsZ 445BWFoRWacy0max1KtFG ZfuJJkm4R8UAOFKXenFLY WQKi6e8syWuIjAhM0sEFo LEtoC3kywuOcxBTjMJBuR Oz7cD71VOSqvC6xaHQzFH ujtoLtVuP1WChnXJDpNbA 1IMKpeMTkZEDqH2euHBHr PDwzRCIeKUijkLIeTTU1z Fbfz7D2rVReqQSivOytKg ZsUpXtVwCMu5ElBOz9aTe qZ4JpMVKzDwB4bCFaTDWs QTqcIWMqUTHlxhZ5bF16M DclstA8hIFzm2Avh69qj2 20mF5piTDgILW2TPJcKRN zmUCoASFuQDH1FIGkrQYb P7dqBHUxVB2mdkrcXLlsG YnqQGZdlRT1RJYmeZDmJ4 AaDVCnHEioNNHhnjj1JhT rIo1xrOQxhGxcAXlpc2vd m9sjzZZiRbp1PNYrTlCmB kfmHVqaf8Snx4qjZAGukd 5rHVN7uNXemSpkk4S5nTS xXGRudGJsbnNiZGJcZmV0 WEyzRD0dzw85HSDpZJT0s w6mbMHfaTjznrRqoZYoAT nwZ3TcXQBso335UFCcJ4C cTYKne7X7saUxPfArBYFe gDH7vpA9SJQlAZj9lUFls xO9wvEnxKAfZ9rfkW4yAH SdNL3adiysn6coUQvyWWz mACOstJH2xzB2WKFzfGAd P3JfvV1uDPDpLJbuJSPel ys8XqKoSv3zfFJuzTcjCW xzYmtwYWdlXHBnbmNvbnR ccGduZGVjXHBsYWluXHBs YWluXGYwXGZzMjRccWxcc RwwcV9cJqAcAuWqHTpfZU 4yJXWfA2nuqXEoQZZbJPR nM5rsNeVgmL0jgNurIZye kkE2EUwjR12xCVJ0JZN3d yByZXBvcnRlZCBoZXJlIG 6ljWZlFABtVIUdLC0mLXF 2ZWxvcGVkIGFuZCBwZXJm j4RcUR5nRQPayEBuRSY6P XHzg3MfS8BhGOJ1ZGWshI 5lZCBieSBVVCBNRCBBbmR vdkNjgkUQEJWbs0cwX5dq QF4jDYhmVe1fYFGrckqjA WVkaWNpbmUuIFRoZXNlIH Woy5SyKExmipAmiu28JBC aVT6ds4GpA1juyMGsjJc8 UUZpRBYiZALaj3YpCQUfe t61DGZdOpmhmOutHJAgQe 9oNd4jNEViweKiHPW0BeQ ZCN1plkgqkRFznGwlfe4r XHBsYWluXGYyXGZzMjJcb GFuZzEwMzNcaGljaFxmMl mxFqRuLIUkUNhlV8arOpI cZnMyMlxwYXJ9 [facility] Cancer SurveyorCytology Image-Guided FNA Nkfpincsxcpekc1834-80-55 21:47:58 Test Item Value Reference Range Interpretation Comments Gross Description (test d6cfxEFhQQDosLTNFLhgT code = [id number]) MkiwwAlXIBuwNWpG7Eohn neKSbkKC3qAY0bpBsabXM ftPJfRW8DIBLeEfEsPCLj cGVydzEyMjQwXHBhcGVya OV2GUItQE2pupizCIgzXW jaMEWvwcR4YTRnvHMkW9Y jUKUuCA9yjvrnOHJ4RSih fI7burVZEsnsUy4swJVts HtcZjFcZmNoYXJzZXQwXG HndTevECZlQAj7cX1DDgu rT94id2X7Rcb7IFBhMYWp Y4OtMK6fFOZyrXCpT70LF fzqBXV4XSSJHiabFWJhZD 9Zy9seXOAdjVWfPPN0MOq abYZdCOXoATMqMWa7VFUc ICpreBScYC6dgAsiNujrp Ggry2JsgWZdPEpvJVQgPC DoAFqlYASjMM5NCpMfFMX sGtK3ZkWnGIt8OFx1ZO2A UyAiICAgNTEyMzcwMCIgO Vw4RVzlNR3XRSFvOXK9IB F2YEAtOCSrDnPlUKb3VMW gXFxmIEFyaWFsIFxcZnMg MTAgXFxmYiBcXGZsIFxcb uZ8OHLkRPdyGTZhFzUpPY BBOlxwYXIgDQpccGxhaW5 sIPKjJ18yj3XZr3KgNA2C DFx4giMtegwtqM4mLSMwj dFcXIwyiNQyI1cuG2OwIQ VqLnZvH6CjL4okQU3aCGC rk2S9vfNjSeevWWLlNRlx IERpZmYgUXVpazsgMyBQY WReN0ApzG4yJ2crTRPtDT BhciANCjUgbWwsIFxwcm9 9BFY3g7aqeFObTBsfVrfc rVWjibC9MDhZNFQUQAlFF jWgQQ3mJWkFA9RARDbNKy xsHPR9NCxqpKG0o8flgMC rx9f5AOemZFV9dHEosCdn mYp7SZHyx1HodJLeiNOdu ONrtHH7LDTtYTiya2htTB UdRPhwo8TfOXhWXRLTXR7 OHL8hpPX3W1qSZZZHR5jO eUK3v8ctdZWmo4e4OVyiR MY3nFIei16aoHquAvdrcN H3GWfeFkmghX0caUABHBY DImpRReucphBkOL0FCBcT RU7PjNP8g6jhiPWus4p8W UkySVS3mWndiHVuopfglK IzhIcjww36AXO1HSVwUOw mczIwICBmbHVpZHtcZmll jEZ1OLftKzjpwZ8lyDQMR VYFVasOIyyxobDiCX7MPT QNBM7OcLG6VhYirKK9AY2 8UFJdNQVsyFVeILaxT345 CNWaVFlqZWe0tjUyQFSnY ScktxCgCZKtaaZBOI8ROU CylzFFFfWjK5DghNUQeJ9 bj7ocXVHtLAcFRJTfS9Pg xIVsONpgR8XyKAsvLPGmh j2zrImdKsUmuEAyiLEwvW vxRrW3HBAgCBhnb1wpSHX eWAkff5WkNQcRRKHMRZ6C XF2bbOR1OIbLC6WPC2gYh XNqEMgwmHK7JG6ZUPtJBK NFnKT4vXpleBj5a9ocqWQ lp0f1UQwwIRI0uCY6FbK4 OjZsm8qndBHkPFzhIatof DPgywI3OZlWJWKRAUbPZe BiEM8aAZiAJsdSNcD1FOO zMgJ4A5uEP4QRUCSWLFA7 MNk3gDV4kD19ECYqROWqn HZhYTrqC087RFQoBRpgOC p1tiZcEQEjHwNvFXRnHAP xf4ShO4C7DOXrVIcdk8oi QLNeYBxdj3EfNJmCBKZYO U5XXE9rpBR6SOdLX4JOA3 vUlJtcaGM0Es2DiIB8kOh sdTg4f6gapCNgl9s7VHug UMZ7yZD4SHXuGG59COQjC Grdw7laQMCwWBttb9YtAZ vCVRVCUO8JQT7wzBU5YRg QY5YDEHy8Gfi7vF3UG1vj vAb1GPm7oZbgNkjoutRhw XZnPlRDmG4dwFjgrY5kjR RxU4jfP8DdRGNuUlPgRIu oWLYhQYnhcFBfTX1EW8c0 VTdzYw5cMM9uAMKvyzCOV iaeDoHcB5DuE8dtPY4iTQ ApeHAvM6owj0OmINOozwD lwb9xDTQtaAQEMrLAPSS1 qF3falyrR3YuAOLQHWjvY EgxccAZFIVPJKuBQ6CgDO WAYFBDIVFaRiBCMW6nDzN 3LxF4HZ89SgbvNXVIZAUN URpEBS0IITZGFYTOPG8LB kCvL6sBBTAEFnLsBHMAVQ FPEBWqTyVRUC1qAjc5Gay jh5F7T7rJYWJSVdGyPYOY XQQCIBVdZT0FFJIOWLYSF U6OQTGBM78NTBKNXFILD5 QTD2tKUNEgo4UzcFteLqC 9QaBkBN9qLMoQB6ZKN6wK LMGaSUCFXOQYAVDxZL2PM NdTPN3MALKkZVUYIDVFZX HoAcGOOD0jTAhUQI9NXFL xMDNTYUWPTIAdSR5TLYWQ RQ2NNKBOCRWWJ14RPYDPQ TZAQ3VRG2vCPAFZYWLYBe EULzWLWG1SIBBISNOHZY5 FTkQNClxlcGljTmVzdERv HaSbovZ5ZHWixWYcJZM9D W5xZDIakdjyTNZhNUOqGC Y7VKydsS47lCXoJDYqYVX ccGFyfVxwbGFpbiANClxz dO9pGjBsf9larLk3YIVJA fitaYDqynuhglL8VFEwu9 zjmDcbu6TrgXWiNZ8dxSs nxZ3aJbDrHjMBWz5= Immediate Assessment Adequate cellularity (test code = 9837) Major Classification NFMC/benign (test code = 9839) Diagnosis (test code = e9jtuFPuJYEjyMP3JIIiP 34) WNdh4gbn6WjbVRfaCPkSY ohfLLlrfSvlk51yMG5lZ1 1SB9eKBUmBgP9XONtihW7 Pvv5LLCyEJLcmSOoR033a 6cfd5kgkzWhbEQ7RTYbXT WcH0JjSE3gOWHbiLIfN39 qkIApUKZ8XVIoPPPndFYc HFYwXXQ5CCUqjVMjN6uxO WMdKK9vjhatZTyfWKmmAS MjlCF3OVNqjNNeK9HnVID nZVbwHNAcpgs0OiRoUc7o gKOjcBdwEKkkU5yaqA6gY zQ9HBuoD6rtvM8jEEo0HN ypYGWyfGX1hqN8NTPisDF qV0PbiL5nJKRcQW0xris3 i8lcMTA8MLbcEDAwYsC2o lM0BSUxpWYlVDqcrSFzmj xmczIwXGNmMSBBLiBMeW1 toNOsd6RdTPCtPAXrpZuj tOfgr9HdYIPow2TlbD48K XIwh3FsxvncEAYUkeepMo luZSBuZWVkbGUgYXNwaXJ hdGlvbjpccGFyXHRhYlxw YFRbvQr6AqHhqTkkSbHwF YIdBEQQuyEjZURjk5PsfR juMDHuwdFids9wBAAgXVX dqUmcmRHvYIRrhkGXc7z7 fX2avOgyeKZrdCmbnMucj UOuT5YhtYEvl4V5cHP6qG 1lFOCjbiFvg0HmsbMjh5j 9iRFycP4xuZErp1NsXFIw dJPktV4rMGFbah0= Comment (test code = n5rbpVJjBTMesXX1PNVnX 9866) TUpq2jgn7BfhIMegUZgMR anaOXaarNhbf59jBW9sA0 5ID6zIWCyOpA4XNOvavM0 Imv5KTPwZKHxsBXxL665a 3qsg5sqgjNjmUP9zYnwRG PejkshSbE7FXkeNIFiefo qWQl9AIsrGVSvxNN1LTFl kBPcG5IiSFKfGJ2orbc7H ON5APuiKTFgYkG7IWCpgG CzLVRqkSoxXAgnn152ADZ 0DfPkJCXmvqCdtNqfgE0j FzTqOSSSnNSkS8ZerNQxw Y0fozZfujXnNIMglKisid Z6PUXtV83fkFPgHnF6j8L 4BRSym6BrXSYfNGakmibw xAwqEEDpw7FpUWWgODumu 6Flck2eoCZxoQ== Retained/Biomarker d4ulkPGgYOLedYC9XKOtK Testing (test code = DEsw6shb5MpoAXrrBMtKX 9838) dqtHPdpsUlrh90nED1iP8 0BU7fFWEyFxJ4FAJhawJ2 Ayh2WQVmZBKbmJNzR722n 9tgh6habxTeeZU5gOfhMU EnduphYfK4ADhmNTSwmey iLMv8ILliTGDhcJB3LPKl eIIsD4QcTXYfKM1igqs1H JF8IMwnGKSdVyI8GVQreN MjEOIwxTlqOQsci932EKE 2GmPdNOMzrxJzkEcysV8z ZnMyMCBTUjogNiBTLCAyI ENCIFxwYXJ9 Informational Points j3ldrTGpMBNfrXZhEzMkE (test code = 9836) AOaCCEcg1dgFEMlpSFaCe EwMzNcZnRuYmpcdWMxXGR gVfNvs2omc940tTAxk6tl SSApIoG5hBFhMBPytNXoR 637MKOdVBpko7hhp8AnAM XoeHRam1H3YYDXVDypSOS KGZp5w9amHyNhYmI0iDRn DYfzY3nooaEqzXSaFDWnM Ja2iN12DEJxvM5crWUxNL kunfOoPwS5EEglFIRnDcE 4XKXjiYMrQDMnA3fsAKWk AAurJTGhWIzqeYKuXVQ4n Neih1I6uQTfmMOjxHadGo RtInFrWvEIk1ApTTj0pWu iM6KoTRDdGdI6vPEbSXFz YUwwOSHzDWTwlaP1hA20R IzuwyD1qBNpw5Ulh46ps3 46fT3ndJSoTLM3ZARvMKL psHVsIFMsHOP1GKPedYVe F4bbOVOcSQ6myaipGOtcO JstWTBqkRN0NVFyjYKbF8 JjXGIrIEieLAFyotk8YeI fBp2giZLqiAkoDWjyz7rt l4skfCBbSvf5IKHoVtJcD fsbBKkij8Ban0nyUPNoeh 0yNXQ0oSGzyPnkw3T6vKV xXGRudGJsbnNiZGJcZmV0 GAizWP5jtb61GLJvFSI8w c5jtLHbrIjosbXmlBMpKX xaI3HkJUYna087XIOfL7V rNQAji8P7orZbTrGuHVDg kEY5vyG2PXTmWMu6uKJvv jU5xqXpzOUlF1mbpO7mKO ZnIM1geujdr3yrIKaaQBn hMQAgwXL5arJ7UQSjfOEj B4MluZ1zUWElVAtjVMBlb ug9RlMvOg2biCDbuDfvEY xzYmtwYWdlXHBnbmNvbnR ccGduZGVjXHBsYWluXHBs YWluXGYwXGZzMjRccWxcc AgkaF9iIjRkVhKrIZccPY 1lMFVsS3tscLQhNBAxEGW jQ7xiXnCgvK9qjPklNXkd hrA1AZjuA49wJLR8OWS2a yByZXBvcnRlZCBoZXJlIG 3xeFJtAZQuSTRxMA9nJKK 2ZWxvcGVkIGFuZCBwZXJm u5ZnKZ6kMALhmEZdDAT3E DKyl2UbF6ZnSOW4YBDmzA 5lZCBieSBVVCBNRCBBbmR dstIadqBUOIGbr3joA0er CM4dBLayYr4kITJbjrfkL WVkaWNpbmUuIFRoZXNlIH Trg5IeXSiehkJfrs58FLU eQT7ir9EaX7djiDMryBs9 ERYwVOEbEWIso3SyMMJym w56ZROjPhiijNfeCHJwZw 1nNt9zANFonvWmMSF9QxR WJF5bfjmvaIHfzEryav7m XHBsYWluXGYyXGZzMjJcb GFuZzEwMzNcaGljaFxmMl cmGoVjXVEdFQnuV4dhLsF cZnMyMlxwYXJ9 [facility] (UTE-CoV-2) PCR Nvztqdeptlrs5780-06-53 11:21:43 Test Item Value Reference Interpretation Comments Range COVID19 SARS Pre-Out of OR Procedure Indication (test code = 54053) COVID19 SARS Result Not Detected Not Detected (test code = 28717-8) COVID19 SARS SARS-CoV-2 NOT Detected. Interpretation (test Reference Range: Not code = 33063) Detected Methodology: The Haney RealTime SARS-CoV-2 assay is a qualitative real-time reverse stone mason polymerase chain reaction (parliamentary counsel-PCR) test to detect RNA from SARS-CoV-2 in nasal, nasopharyngeal and oropharyngeal swabs from patients with signs and symptoms of infection who are suspected of COVID-19 by their health care provider. The Haney RealTime SARS-CoV-2 performed on the CastTV000 System is a dual target assay with [...] high-complexity Molecular Diagnostics Laboratory (MDL) at [facility] under the Food and Drug Administration (FDA) s Emergency Use Authorization. Factsheet for patients: https://www.[facility].org/ AbbottFactSheetPatientsFact sheet for healthcare providers: https://www.[facility].org/ AbbottFactSheetHCP Test performed by:[facility] [address] [place] [address] [facility] COVID-19 (UTE-CoV-2) PCR Prasnmzrvemx4298-47-00 11:21:43 Test Item Value Reference Interpretation Comments Range COVID19 SARS Pre-Out of OR Procedure Indication (test code = 48708) COVID19 SARS Result Not Detected Not Detected (test code = 45972-9) COVID19 SARS SARS-CoV-2 NOT Detected. Interpretation (test Reference Range: Not code = 59360) Detected Methodology: The Haney RealTime SARS-CoV-2 assay is a qualitative real-time reverse stone mason polymerase chain reaction (parliamentary counsel-PCR) test to detect RNA from SARS-CoV-2 in nasal, nasopharyngeal and oropharyngeal swabs from patients with signs and symptoms of infection who are suspected of COVID-19 by their health care provider. The Haney RealTime SARS-CoV-2 performed on the CastTV000 System is a dual target assay with [...] high-complexity Molecular Diagnostics Laboratory ([facility]DL) at [facility] under the Food and Drug Administration (FDA) s Emergency Use Authorization. Factsheet for patients: https://www.[facility].org/ AbbottFactSheetPatientsFact sheet for healthcare providers: https://www.[facility].org/ AbbottFactSheetHCP Test performed by:[facility] [address] [place] [address] [facility] COVID-19 (UTE-CoV-2) PCR Duwivyiqqxrv8431-46-19 11:21:43 Test Item Value Reference Interpretation Comments Range COVID19 SARS Pre-Out of OR Procedure Indication (test code = 66736) COVID19 SARS Result Not Detected Not Detected (test code = 03763-9) COVID19 SARS SARS-CoV-2 NOT Detected. Interpretation (test Reference Range: Not code = 63654) Detected Methodology: The Haney RealTime SARS-CoV-2 assay is a qualitative real-time reverse stone mason polymerase chain reaction (parliamentary counsel-PCR) test to detect RNA from SARS-CoV-2 in nasal, nasopharyngeal and oropharyngeal swabs from patients with signs and symptoms of infection who are suspected of COVID-19 by their health care provider. The Haney RealTime SARS-CoV-2 performed on the CastTV000 System is a dual target assay with [...] high-complexity Molecular Diagnostics Laboratory ([facility]DL) at [facility] under the Food and Drug Administration (FDA) s Emergency Use Authorization. Factsheet for patients: https://www.[facility].org/ AbbottFactSheetPatientsFact sheet for healthcare providers: https://www.[facility].org/ AbbottFactSheetHCP Test performed by:[facility] [address] [place] [address] [facility] Lake[facility]id[facility] Qy5446-41-36 17:05:38 Test Item Value Reference Range Interpretation Comments Cocci Comp Fix-Acno Negative Negative (test code = 5096-3) Cocci IgG-Cano Negative Negative (test code = 86458-7) Cocci IgM-Cano Negative Negative A negative co mplement (test code = fixation and 15840-9) immunodiffusion (CompF/ImmD iff) result knowles s not exclude the panda gnosis ofcoccidioidomy cosis. Repeat testing by CompF/ImmDiff i n 2-3weeks if clinically i ndicated. Test Performed by:[facility] FSIr [address] [employer] [place] [id number] Director: Vladislav Cannon M.D. Ph. D.; CLIA# [id number] [facility] Tk6412-21-09 17:05:38 Test Item Value Reference Range Interpretation Comments Cocci Comp Fix-Cano Negative Negative (test code = 5096-3) Cocci IgG-Cano Negative Negative (test code = 81395-6) Cocci IgM-Cano Negative Negative A negative co mplement (test code = fixation and 98348-4) immunodiffusion (CompF/ImmD iff) result knowles s not exclude the panda gnosis ofcoccidioidomy cosis. Repeat testing by CompF/ImmDiff i n 2-3weeks if clinically i ndicated. Test Performed by:[facility] [address] [employer] [place], [place] [address]Clx Director: Vladislav Cannon M.D. Ph. D.; CLIA# [id number] [facility] Qv0397-25-52 17:05:38 Test Item Value Reference Range Interpretation Comments Cocci Comp Fix-Cano Negative Negative (test code = 5096-3) Cocci IgG-Cano Negative Negative (test code = 52094-6) Cocci IgM-Cano Negative Negative A negative co mplement (test code = fixation and 82812-5) immunodiffusion (CompF/ImmD iff) result knowles s not exclude the panda gnosis ofcoccidioidomy cosis. Repeat testing by CompF/ImmDiff i n 2-3weeks if clinically i ndicated. Test Performed by:[facility] ior [address] [place], [place] [address]Pma Director: Vladislav Cannon M.D. Ph. D.; CLIA# [id number] [facility] Lake[facility] Ab Oxhhyf4950-75-82 20:14:06 Test Item Value Reference Range Interpretation Comments Histo Immuno Negative Negative A negative comp lement Ab-Cano (test code fixation and = 15084-4) immunodiffusion (CF/ID)result d oes not exclude the panda gnosis of histoplasmosis. Repeat testing by CF/I D in 1-2 weeks if clinicallyindic ated. Test Performed by:[facility] [address] [place] [id number] Direct or: Kushal Cannon M.D. Ph.D.; CLIA# [id number] Histo Mycel Negative Negative Ab-Cano (test code = 40017-5) Histo Yeast Negative Negative Ab-Cano (test code = 46388-5) [facility] Ab Zatdaf7848-97-25 20:14:06 Test Item Value Reference Range Interpretation Comments Histo Immuno Negative Negative A negative comp lement Ab-Cano (test code fixation and = 92213-3) immunodiffusion (CF/ID)result d oes not exclude the panda gnosis of histoplasmosis. Repeat testing by CF/I D in 1-2 weeks if clinicallyindic ated. Test Performed by:[address], [place], [place] [address]Cft Direct or: Kushal Cannon M.D. Ph.D.; CLIA# [id number] Histo Mycel Negative Negative Ab-Cano (test code = 56317-5) Histo Yeast Negative Negative Ab-Cano (test code = 34140-5) [facility] Ab Njiaus1914-78-15 20:14:06 Test Item Value Reference Range Interpretation Comments Histo Immuno Negative Negative A negative comp lement Ab-Cano (test code fixation and = 86933-6) immunodiffusion (CF/ID)result d oes not exclude the panda gnosis of histoplasmosis. Repeat testing by CF/I D in 1-2 weeks if clinicallyindic ated. Test Performed by:[facility] [address] [place] [address], [place], [place] [address]Avk Direct or: Kushal Cannon M.D. Ph.D.; CLIA# [id number] Histo Mycel Negative Negative Ab-Allyn (test code = 27092-3) Histo Yeast Negative Negative Ab-Allyn (test code = 53263-0) [facility] Cancer SurveyorT-spot [id number] 17:36:08 Test Item Value Reference Range Interpretation [...] (test by:Lab Mnemonic : code = 9399) [id number] DIAGNO STICS TB, [id number] DISTRIBUTION DRIVEMEHIS, T N [id number] BAYRON TIRADO MD,PHD Tspot TB NIL Passed Cont (test code = 9396) RHIANNA (test If scheduling this code = RHIANNA) lab at one of the following locations, it can only be collected on Sunday, Sunday, and Sunday due to collection/process ing restrictions:[facility] DI[facility] LAB [facility] DIAG LAB [facility] DIAG LAB [facility] CTR [facility] Cancer SurveyorT-spot [id number] 17:36:08 Test Item Value Reference Range Interpretation [...] (test by:Lab Mnemonic : code = 9399) [id number] DIAGNO STICS TB, [id number] DISTRI[facility]ION [facility], N [id number] BAYRON TIRADO MD,PHD Tspot TB NIL Passed Cont (test code = 9396) RHIANNA (test If scheduling this code = RHIANNA) lab at one of the following locations, it can only be collected on Sunday, Sunday, and Sunday due to collection/process ing restrictions:[facility] DIAG LAB [facility] DIA LAB [facility] DIA LAB [facility] Cancer SurveyorT-spot [id number] 17:36:08 Test Item Value Reference Range Interpretation [...] (test by:Lab Mnemonic : code = 9399) [id number] DIAGNO STICS TB, [id number] DISTRIBUTION [facility], N [id number] BAYRNO TIRADO MD,PHD Tspot TB NIL Passed Cont (test code = 9396) RHIANNA (test If scheduling this code = RHIANNA) lab at one of the following locations, it can only be collected on Sunday, Sunday, and Sunday due to collection/process ing restrictions:[facility] DIAG LAB [facility] DIAG LAB [facility] CTR [facility] Cancer SurveyorComplete PFT (Kale, DLCO, LV) 2021-12-01 00:00:00 Test [...] mated message] (test code = 9515) The [employer] which generated this result transmitted ref erence range: 3.035 - 23.202 ml/(min*mmHg). The reference range was not used to int erpret this result as normal/abnormal . DLCOc_SB ml/(min*mmHg) 12.651 See_Comment [Aut omated message] (test code = 7416) The syste [employer] which generated this result transmitted ref erence [...] 9530) Lab Interpretation (test Abnormal code = 14706-0) [facility] Path Review 2021-11-30 21:02:28Crypto Ag, Serum PRReviewed and Electronically signed by Pathologist:RICKEY SANTANA MD #[id number] [facility] WorthCryptococcal Ag Serum Path [id number] 21:02:28Crypto Ag, Serum PRReviewed and Electronically signed by Pathologist:RICKEY SANTANA MD #[id number] [facility]Un[facility] WorthCryptococcal Ag Serum Path [id number] 21:02:28Crypto Ag, Serum PRReviewed and Electronically signed by Pathologist:RICKEY SANTANA MD #[id number] [facility]Un[facility] WorthCryptococcal Antigen, [id number] 16:40:56 Test Item Value Reference Range Interpretation Comments Cryptococcal Ag Screen Serum Interp Negative Negative (test code = 10821-3) [facility] Lake[facility], Serum 2021-11-30 16:40:56 Test Item Value Reference Range Interpretation Comments Cryptococcal Ag Screen Serum Interp Negative Negative (test code = 25634-4) [facility] Lake[facility] Ant[facility], Serum 2021-11-30 16:40:56 Test Item Value Reference Range Interpretation Comments Cryptococcal Ag Screen Serum Interp Negative Negative (test code = 03891-2) [facility] LakeHepatitis B Total Ig Core Ab (SCREENING) (anti-HBc total Ig; HBcAb total Ig)2021-11-30 15:37:34 Test Item Value Reference Range Interpretation Comments HBcAb. (test code = 5742) Non Reactive Non Reactive [facility] LakeHepatitis B Total Ig Core Ab (SCREENING) (anti-HBc total Ig; HBcAb total Ig)2021-11-30 15:37:34 Test Item Value Reference Range Interpretation Comments HBcAb. (test code = 5742) Non Reactive Non Reactive [facility]
[2023-04-11] MEDS ORDERED: ONDANSETRON 4 MG/2 ML VIAL ONE (03:15)
[2023-04-11] MEDS ORDERED: MORPHINE 4 MG/ML SYR ONE (03:15)
[2023-04-11 03:37] LABS: Absolute Lymphocytes (CBC) 0.6 K/uL (0.7-4.9); Hematocrit 28.4 % (36.0-45.0); MPV 6.2 fL (7.6-11.3); Platelets 203 thou/uL (152-406); RBC Red Blood Cell Count 3.23 M/uL (3.86-4.86)
[2023-04-11 04:17] LABS: Bilirubin Total 0.2 mg/dL (0.2-1.0); Potassium 3.6 mEq/L (3.5-5.1); Protein, Total 6.1 g/dL (6.4-8.2)
[2023-04-11 04:34] LABS: Blood Morphology Comment NOTED (NOT SEEN); Ovalocytes 1+; Platelet Estimate ADEQ; White Blood Cell Scan OK (OK)
--- NOTE | 2023-04-11 05:18 | ER ---
Nurse's Notes [facility] Name: Brianne Jennings Age: 77 yrs Sex: Female : 1945 Arrival Date: 04/11/2023 Time: 02:55 Bed 7 Private MD: Diagnosis: Other viral enteritis;Acute COVID-19, nausea vomiting, acute viral gastroenteritis Presentation: 04/11 02:50 Chief complaint: Patient states: Nausea EMS states: Nausea and vomiting. state they la4 picked up and dropped off pt earlier today for same complaint. Coronavirus screen: Vaccine status: Patient reports being unvaccinated. Client denies travel out of the [place] in the last 14 days. Ebola Screen: Patient denies exposure to infectious person. Patient denies travel to an Ebola-affected area in the 21 days before illness onset. 02:50 Method Of Arrival: EMS: [facility] la4 02:50 Initial Sepsis Screen: Does the patient meet any 2 criteria? No. Patient's initial la4 sepsis screen is negative. Does the patient have a suspected source of infection? No. Patient's initial sepsis screen is negative. Risk Assessment: Do you want to hurt yourself or someone else? Patient reports desire/thoughts of hurting themselves or someone else. Provider notified. Onset of symptoms was April 10, 2023 at 06:00. Care prior to arrival: 20 G PIV placed to left AC Medication(s) given: zofran 4 mg, IV initiated. 20 GA, in the left antecubital area. Activity prior to arrival: None. reported nausea only. 02:50 Acuity: LYNNE 3 la4 Triage Assessment: 02:50 General: Appears uncomfortable, Behavior is calm, cooperative, appropriate for age. la4 Pain: Complains of pain in right lower quadrant and left lower quadrant Pain does not radiate. Pain currently is 8 out of 10 on a pain scale. Quality of pain is described as aching, dull, Pain began 1 day ago. Is continuous, Alleviated by medications, rest, Aggravated by eating, drinking, increased activity, Noted to be. Neuro: No deficits noted. Guerin Agitation-Sedation Scale (RASS): 0 - Alert and Calm Level of Consciousness is awake, alert, obeys commands, Oriented to person, place, time, situation, Appropriate for age Environmental Monitoring Specialist are equal bilaterally Moves all extremities. Speech is normal, Facial symmetry appears normal, Pupils are PERRLA, Pupil Size: 4 Intact. Cardiovascular: No deficits noted. Heart tones S1 S2 Capillary refill < 3 seconds Pulses are all present. Edema is absent. Respiratory: No deficits noted. Breath sounds are clear bilaterally. GI: Abdomen is flat, non-distended, Bowel sounds present X 4 quads. hyperactive in right upper quadrant, left upper quadrant, right lower quadrant and left lower quadrant Abd is soft and non tender X 4 quads. Reports lower abdominal pain, intolerance of fluids, intolerance of food, nausea, Patient currently denies diarrhea, vomiting, took prescribed dicyclomine at 1900 on yesterday with no relief. Historical: - Allergies: 02:50 Clindamycin; la4 - Home Meds: 02:50 aspirin 81 mg Oral chew 1 tab once daily [Active]; Eliquis 2.5 mg Oral tablet every 12 la4 hours [Active]; gabapentin oral [Active]; metoprolol tartrate 50 mg Oral tablet every 12 hours [Active]; Metoprolol Tartrate Oral 1 tab 2 times per day [Active]; omeprazole 20 mg Oral cpDR 1 cap once daily [Active]; ProAir HFA 90 mcg/actuation inhalation HFAA every 4-6 hours [Active]; Symbicort inhalation [Active]; - PMHx: 02:50 acid reflux; Arthritis; COPD; Hypertension; Lung Cancer; la4 - PSHx: 02:50 left lung lobe resection; la4 - Immunization history:: Adult Immunizations up to date. - Social history:: Smoking status: Patient/guardian denies using tobacco, the patient reports quitting approximately 2 years ago. - Family history:: not pertinent. - Code Status:: Full code. Screenin:29 [facility] ED Fall Risk Assessment (Adult) Score/Fall Risk Level 0 - 2 = Low Risk. Abuse la4 screen: Denies threats or abuse. Denies injuries from another. Nutritional screening: No deficits noted. Tuberculosis screening: No symptoms or risk factors identified. Assessment: 03:12 Reassessment: Patient appears in no apparent distress at this time. No changes from la4 previously documented assessment. General: Appears in no apparent distress. uncomfortable, Behavior is calm, cooperative, appropriate for age. 06:02 General: Dr. Lozoya ordered additional pain medication along with Phenergan. Pt la4 reports she has to call a taxi to get home. Pt notified that due to the risk of medication causing drowsiness and pt will need family or taxi present and receive medication upon discharge to avoid medication taking affect prior to her ride arriving or in the taxi unaccompanied. Pt states she is going to try to call her daughter to take her home. Given pepcid and ibuprofen as ordered at this time. Will wait to administer tramadol and phenergan until pt has safe discharge plan. . Pain: Complains of pain in right lower quadrant and left lower quadrant Pain does not radiate. Pain currently is 8 out of 10 on a pain scale. Quality of pain is described as aching, dull, Pain began 2-3 days ago. Neuro: No deficits noted. Guerin Agitation-Sedation Scale (RASS): +1 Restless. Cardiovascular: No deficits noted. Respiratory: No deficits noted. 06:18 General: Spoke w/ patient, daughter is 20 minutes away and coming to pick patient up. la4 Will medicate patient once daughter has arrived and patient is being escorted out by responsible family member. 06:42 Reassessment: Pt given ordered discharge medications prior to leaving. Pt escorted by nw1 RN to taxi and was given Phenergan tab ibuprofen tab, Pepcid tab, and tramadol tab PO. Vital Signs: 02:50 BP 178 / 94 LA; Pulse 20 MON; Resp 66 S; Temp 98.8(O); Pulse Ox 100% on R/A; Weight la4 51.26 kg; Height 5 ft. 2 in. ; Pain 8/10; 03:00 BP 161 / 82; Pulse 64; Resp 20; Pulse Ox 97% ; la4 03:38 BP 176 / 74; Pulse 68; Resp 20; Pulse Ox 97% on R/A; la4 04:44 BP 156 / 75; Pulse 64; Resp 20; Pulse Ox 99% ; Pain 8/10; la4 06:07 BP 141 / 63; Pulse 73; Resp 20; Pulse Ox 97% on R/A; Pain 8/10; la4 02:50 Body Mass Index 20.67 (51.26 kg, 157.48 cm) la4 02:50 Pain Scale: Adult la4 04:44 Pain Scale: Adult la4 06:07 Pain Scale: Adult la4 02:50 pain reported to across lower abdomen that is dull and throbbbing la4 Michele Coma Score: 03:00 Eye Response: spontaneous(4). Motor Response: obeys commands(6). Verbal Response: la4 oriented(5). Total: 15. 03:38 Eye Response: spontaneous(4). Motor Response: obeys commands(6). Verbal Response: la4 oriented(5). Total: 15. 06:07 Eye Response: spontaneous(4). Motor Response: obeys commands(6). Verbal Response: la4 oriented(5). Total: 15. ED Course: 02:59 Patient arrived in ED. rv1 02:59 Rene Lozoya MD is Attending Physician. sp4 03:01 Rob Cleaning RN is Primary Nurse. la4 03:06 Triage completed. la4 03:28 CBC with Diff Sent. la4 03:28 CMP Sent. la4 03:28 Lipase Sent. la4 03:28 Urinalysis w/ reflexes Sent. la4 03:30 Maintain EMS IV. Dressing intact. Good blood return noted. Site clean \T\ dry. Gauge \T\ la 4 site: 20 G left ac. IV is patent, is intact, with good blood return, Flushed 03:30 Patient has correct armband on for positive identification. Allergy band placed. Fall la4 risk band placed. Placed in gown. Bed in low position. Call light in reach. Side rails up X2. Provided Education on: plan of care. Pulse ox on. NIBP on. 06:22 IV discontinued, intact. la4 06:24 No provider procedures requiring assistance completed. la4 06:24 Patient waiting on family in room with door closed. la4 Administered Medications: 03:15 Drug: morphine IVP or IV 4 mg IVP once over 4 mins Route: IVP; Rate: bolus; Infused la4 Over: 4 mins; Site: left antecubital; 03:15 Drug: NS 0.9% IV 1000 ml IV at 125 ml/hr continuous Route: IV; Rate: 125 ml/hr; Infused la4 Over: 30 mins; Site: left antecubital; Delivery: Primary tubing; 06:42 Follow up: IV Status: Completed infusion nw1 03:38 Drug: Ondansetron IVP 8 mg IVP once; over 2 minutes Route: IVP; Rate: bolus; Infused la4 Over: 1 mins; Site: left antecubital; 06:08 Drug: Famotidine PO 40 mg PO once Route: PO; la4 06:42 Drug: Promethazine PO 25 mg PO once Route: PO; nw1 06:42 Drug: traMADol PO 50 mg PO once Route: PO; nw1 06:42 Drug: Ibuprofen PO 400 mg PO once Route: PO; nw1 Medication: 03:31 VIS not applicable for this client. la4 Outcome: 05:18 Discharge ordered by . sp4 06:23 Discharged to home ambulatory, with family, la4 06:23 Condition: improved 06:23 Discharge instructions given to patient, Instructed on discharge instructions, follow up and referral plans. safety practices, Demonstrated understanding of instructions, follow-up care, medications, Prescriptions given X 4, 06:44 Patient left the ED. nw1 Signatures: Marielena Bates rv1 Rene Lozoya MD MD sp4 Rob Cleaning RN RN la4 Nasra Shelton, VALE RN nw1 Corrections: (The following items were deleted from the chart) 06:41 06:23 Discharge instructions given to patient, Instructed on discharge instructions, nw1 follow up and referral plans. safety practices, Demonstrated understanding of instructions, follow-up care, medications, la4
--- NOTE | 2023-04-11 05:18 | EDPHYS ---
Physician Documentation [facility] Name: Brianne Jennings Age: 77 yrs Sex: Female : 1945 Arrival Date: 04/11/2023 Time: 02:55 Bed 7 Private MD: ED Physician Rene Lozoya HPI: 04/11 03:00 This 77 yrs old Female presents to ER via Unassigned with complaints of sp4 nausea, vomiting, abdominal pain . 03:04 CT report from 04/10/2023 - EXAM DESCRIPTION: CT - Abdomen Pelvis W Contrast - sp4 04/10/2023 8:25 am CLINICAL HISTORY: Abdominal pain COMPARISON: 2017 and January 2023 TECHNIQUE: Computed axial tomography of the abdomen pelvis was obtained. 100 cc Isovue-300 was administered intravenously. Oral contrast was not requested which limits evaluation of bowel and appendix All CT scans are performed using dose optimization technique as appropriate and may include automated exposure control or mA/KV adjustment according to patient size. FINDINGS: Multiple hepatic cysts are present. The largest measures 2 centimeters. Additional small benign complex cystic masses are present. The spleen, pancreas, adrenals and kidneys appear unremarkable. No evidence of diverticulitis. Normal appendix No adnexal mass. 3.2 centimeter enhancing mass within uterus unchanged from 2018 likely benign. IMPRESSION: No acute abnormality is displayed.. 03:17 - Record review from 04/10/2023 - [facility] 8[facility]35 sp4 am CLINICAL HISTORY: Upper abdominal pain FINDINGS: The lungs appear clear of acute infiltrate. The heart is borderline enlarged IMPRESSION: No acute abnormalities displayed . 03:31 77-year-old female with history of GERD, arthritis, COPD, hypertension, lung cancer sp4 currently in remission presents with acute onset nausea vomiting and lower abdominal pain worsening this morning. Patient was here on 04/10/2023 early in the morning at 8 for abdominal pain. Patient has had full work-up including abdominal CT which has revealed no acute abnormality. Patient was discharged home with p.o. Bentyl. She has reported no effect from the Bentyl. Patient presented with EMS for persistent nausea vomiting dry heaving. Historical: - Allergies: 02:50 Clindamycin; la4 - Home Meds: 02:50 aspirin 81 mg Oral chew 1 tab once daily [Active]; Eliquis 2.5 mg Oral tablet every 12 la4 hours [Active]; gabapentin oral [Active]; metoprolol tartrate 50 mg Oral tablet every 12 hours [Active]; Metoprolol Tartrate Oral 1 tab 2 times per day [Active]; omeprazole 20 mg Oral cpDR 1 cap once daily [Active]; ProAir HFA 90 mcg/actuation inhalation HFAA every 4-6 hours [Active]; Symbicort inhalation [Active]; - PMHx: 02:50 acid reflux; Arthritis; COPD; Hypertension; Lung Cancer; la4 - PSHx: 02:50 left lung lobe resection; la4 - Immunization history:: Adult Immunizations up to date. - Social history:: Smoking status: Patient/guardian denies using tobacco, the patient reports quitting approximately 2 years ago. - Family history:: not pertinent. - Code Status:: Full code. ROS: 03:31 Constitutional: Negative for fever, chills, and weight loss, positive nausea vomiting sp4 and abdominal pain 03:31 All other systems are negative, Exam: 03:31 Constitutional: This is a well developed, well nourished patient who is awake, alert, sp4 and in no acute distress. Head/Face: Normocephalic, atraumatic. Eyes: Pupils equal round and reactive to light, extra-ocular motions intact. Lids and lashes normal. Conjunctiva and sclera are not injected. Cornea within normal limits. Periorbital areas with no swelling, redness, or edema. ENT: Nares patent. No nasal discharge, no septal abnormalities noted. Tympanic membranes are normal and external auditory canals are clear. Oropharynx with no redness, swelling, or masses, exudates, or evidence of obstruction, uvula midline. Mucous membranes moist. Neck: Trachea midline, no thyromegaly or masses palpated, and no cervical lymphadenopathy. Supple, full range of motion without nuchal rigidity, or vertebral point tenderness. Chest/axilla: Normal chest wall appearance and motion. Nontender with no deformity. No lesions are appreciated. Cardiovascular: Regular rate and rhythm with a normal S1 and S2. No gallops, murmurs, or rubs. Normal PMI, no JVD. No pulse deficits. Respiratory: Lungs have equal breath sounds bilaterally, clear to auscultation and percussion. No rales, rhonchi or wheezes noted. No increased work of breathing, no retractions or nasal flaring. Abdomen/GI: Soft, non-tender, with normal bowel sounds. No distension or tympany. No guarding or rebound. No evidence of tenderness throughout. Back: No spinal tenderness. No costovertebral tenderness. Skin: Warm, dry with normal turgor. Normal color with no rashes, no lesions, and no evidence of cellulitis. MS/ Extremity: Pulses equal, no cyanosis. Neurovascular intact. Full, normal range of motion. Neuro: Awake and alert, GCS 15, oriented to person, place, time, and situation. Cranial nerves II-XII grossly intact. Motor strength 5/5 in all extremities. Sensory grossly intact. Psych: Awake, alert, with orientation to person, place and time. Behavior, mood, and affect are within normal limits 03:46 ECG was reviewed by the Attending Physician. There a use EKG at 0 342, normal sinus sp4 rhythm at a rate of 77, there is no ST elevation or depression, no ectopy, overall normal EKG Vital Signs: 02:50 BP 178 / 94 LA; Pulse 20 MON; Resp 66 S; Temp 98.8(O); Pulse Ox 100% on R/A; Weight la4 51.26 kg; Height 5 ft. 2 in. ; Pain 8/10; 03:00 BP 161 / 82; Pulse 64; Resp 20; Pulse Ox 97% ; la4 03:38 BP 176 / 74; Pulse 68; Resp 20; Pulse Ox 97% on R/A; la4 04:44 BP 156 / 75; Pulse 64; Resp 20; Pulse Ox 99% ; Pain 8/10; la4 06:07 BP 141 / 63; Pulse 73; Resp 20; Pulse Ox 97% on R/A; Pain 8/10; la4 02:50 Body Mass Index 20.67 (51.26 kg, 157.48 cm) la4 02:50 Pain Scale: Adult la4 04:44 Pain Scale: Adult la4 06:07 Pain Scale: Adult la4 02:50 pain reported to across lower abdomen that is dull and throbbbing la4 Michele Coma Score: 03:00 Eye Response: spontaneous(4). Motor Response: obeys commands(6). Verbal Response: la4 oriented(5). Total: 15. 03:38 Eye Response: spontaneous(4). Motor Response: obeys commands(6). Verbal Response: la4 oriented(5). Total: 15. 06:07 Eye Response: spontaneous(4). Motor Response: obeys commands(6). Verbal Response: la4 oriented(5). Total: 15. MDM: 02:59 Patient medically screened. sp4 05:16 Differential Diagnosis altered mental status, sepsis, flu. Data reviewed: vital signs, sp4 nurses notes, EMS record, old medical records, lab test result(s), EKG. Consideration of Admission/Observation Escalation of care including admission/observation considered. ED course: Patient improved after medications. Patient is COVID-positive which is likely the source of her nausea and vomiting. patient will be discharged home with Paxlovid, Phenergan, Zofran, tramadol, ibuprofen. I will advise clear liquid diet for the next 24 hours. . ED course: Will advise home quarantine for the next 5 days and follow-up with budget director in 6 to 7 days. 04/11 02:59 Order name: CBC with Diff; Complete Time: 05:09 sp4 04/11 02:59 Order name: CMP; Complete Time: 05:09 sp4 04/11 02:59 Order name: Lipase; Complete Time: 05:09 sp4 04/11 02:59 Order name: Urinalysis w/ reflexes; Complete Time: 05:22 sp4 04/11 02:59 Order name: Influenza Screen (a \T\ B); Complete Time: 05:09 sp4 04/11 02:59 Order name: COVID-19 SARS RT PCR; Complete Time: 05:09 sp4 04/11 03:18 Order name: Troponin High Sensitivity; Complete Time: 05:09 sp4 04/11 03:55 Order name: CBC Smear Scan; Complete Time: 05:09 EDMS 04/11 03:18 Order name: EKG; Complete Time: 03:18 sp4 04/11 02:59 Order name: IV Saline Lock; Complete Time: 03:28 sp4 04/11 02:59 Order name: Labs collected and sent; Complete Time: 03:28 sp4 04/11 03:18 Order name: EKG - Nurse/Tech; Complete Time: 03:46 sp4 04/11 05:16 Order name: PO challenge; Complete Time: 06:01 sp4 EC:46 Rate is 77 beats/min. Rhythm is regular, Normal Sinus Rhythm. QRS [place] is Normal. OR sp4 interval is normal. QRS interval is normal. QT interval is normal. No Q waves. T waves are Normal. No ST changes noted. Clinical impression: No evidence of ischemia. Interpreted by me. Reviewed by me. Administered Medications: 03:15 Drug: morphine IVP or IV 4 mg IVP once over 4 mins Route: IVP; Rate: bolus; Infused la4 Over: 4 mins; Site: left antecubital; 03:15 Drug: NS 0.9% IV 1000 ml IV at 125 ml/hr continuous Route: IV; Rate: 125 ml/hr; Infused la4 Over: 30 mins; Site: left antecubital; Delivery: Primary tubing; 06:42 Follow up: IV Status: Completed infusion nw1 03:38 Drug: Ondansetron IVP 8 mg IVP once; over 2 minutes Route: IVP; Rate: bolus; Infused la4 Over: 1 mins; Site: left antecubital; 06:08 Drug: Famotidine PO 40 mg PO once Route: PO; la4 06:42 Drug: Promethazine PO 25 mg PO once Route: PO; nw1 06:42 Drug: traMADol PO 50 mg PO once Route: PO; nw1 06:42 Drug: Ibuprofen PO 400 mg PO once Route: PO; nw1 Disposition Summary: 04/11/23 05:18 Discharge Ordered Notes: We advise stay at home for the next 5 days Location: Home sp4 Problem: new sp4 Symptoms: have improved sp4 Condition: Stable sp4 Diagnosis - Other viral enteritis sp4 - Acute COVID-19, nausea vomiting, acute viral gastroenteritis sp4 Followup: sp4 - With: Private Physician - When: 5 - 6 days - Reason: Recheck today's complaints Discharge Instructions: - Discharge Summary Sheet sp4 - COVID-19 sp4 Forms: - Patient Portal Instructions sp4 Prescriptions: - Paxlovid 300 mg (150 mg x 2)-100 mg Oral Tablet, Dose Pack - take 1 dose pack ORAL route as directed on dose pack for 5 days take TWO 150 mg sp4 tablets of nirmatrelvir with ONE 100 mg tablet of ritonavir twice daily for 5 days; 1 Pack; Refills: 0, Product Selection Permitted - ondansetron 8 mg Oral Tablet,disintegrating - take 1 tablet ORAL route every 6 hours for 5 days Alternate with Phenergan for sp4 nausea as needed; 30 tablet; Refills: 0, Product Selection Permitted - Ibuprofen 600 mg Oral Tablet - take 1 tablet ORAL route every 6 hours As needed take with food; 30 tablet; sp4 Refills: 0, Product Selection Permitted - Tramadol 50 mg Oral Tablet - take 1 tablet ORAL route every 8 hours as needed; 12 tablet; Refills: 0, sp4 Product Selection Permitted - promethazine 25 mg Oral tablet - take 1 tablet ORAL route every 6 hours As needed; 30 tablet; Refills: 0, sp4 Product Selection Permitted Signatures: Dispatcher [employer] EDRene Leger MD MD sp4 Rob Cleaning RN RN la4 Nasra Shelton RN RN nw1 Corrections: (The following items were deleted from the chart) 03:32 03:31 7-year-old female with history of GERD, arthritis, COPD, hypertension, lung sp4 cancer currently in remission presents with acute onset nausea vomiting and lower abdominal pain worsening this morning. Patient was here on 04/10/2023 early in the morning at 8 for abdominal pain. Patient has had full work-up including abdominal CT which has revealed no acute abnormality. Patient was discharged home with p.o. Chuckie. She has reported no effect from the Bentyl. Patient presented with EMS for persistent nausea vomiting dry heaving. sp4
[2023-04-11 05:19] LABS: Specific Gravity 1.015 (1.005-1.030); Urine Bacteria None Seen /HPF (<20); Urine Bilirubin NEGATIVE (Negative); Urine Blood Negative (Negative); Urine Clarity Clear (Clear); Urine Color Colorless (Yellow); Urine Glucose NEGATIVE (Negative); Urine Mucus Slight /HPF (None Seen); Urine Protein NEGATIVE (Negative); Urine RBC None Seen /HPF (None Seen); Urine Urobilinogen Normal (Normal)
[2023-04-11] MEDS ORDERED: IBUPROFEN 400 MG TAB ONE (06:07)
[2023-04-11] MEDS ORDERED: TRAMADOL HCL 50 MG TAB ONE (06:07)
[2023-04-11] MEDS ORDERED: PROMETHAZINE 25 MG TABLET ONE (06:07)
[2023-04-11] MEDS ORDERED: FAMOTIDINE 20 MG TAB ONE (06:08)
--- NOTE | 2023-04-11 11:56 | EKG ---
Test Date: 2023-04-11 Test Time: 03:42:44 Medical Imaging Technologist: MEASUREMENT RESULTS: Intervals: Rate: 77 WI: 172 QRSD: 96 QT: 412 QTc: 466 [place]: P: 68 WI: 172 QRS: 76 T: 61 INTERPRETIVE STATEMENTS: Normal sinus rhythm Incomplete right bundle branch block Nonspecific ST abnormality Abnormal ECG Compared to ECG 04/10/2023 07:45:16 ST (T wave) deviation now present Sinus bradycardia no longer present Electronically Signed On 04-11-23 11:55:10 CDT by Baldemar Hamilton
[2023-04-12 15:38] VITALS: BP 141/63; O2SAT 97
== END 2023-04-11 06:44 | disposition home or self-care (01) ==
LOC: ER 02:55
DX: U07.1 COVID-19 (principal); A08.39 Other viral enteritis; I10 Essential (primary) hypertension; J44.9 Chronic obstructive pulmonary disease, unspecified; Z85.118 Personal history of other malignant neoplasm of bronchus and lung; Z79.01 Long term (current) use of anticoagulants; Z79.82 Long term (current) use of aspirin; Z88.3 Allergy status to other anti-infective agents
CPT/HCPCS: 93005; 85025; 81001; 36415; 84484; 83690; 80053; 87635; 87804 ×2; Q0169; J2405

== ENCOUNTER 2023-09-20 11:08 | Emergency (ER) | payer OTHER ==
--- OUTSIDE RECORDS SUMMARY | 2023-09-20 11:13 | XMS REPORT | Clinical Summary ---
Author Name Unknown Organization [facility] [place] Address [address] [place] [address] Care Team Providers Care Halftone Operator Name Role Phone Sheba Velez Unavailable Clay Ahumada MD Unavailable [phone] Sudeep Crouch MD Primary Care Provider Guanaco Henderson MD Unavailable [phone] Keaton Rodriguez MD Unavailable [phone] Kaylie Mota MD Unavailable [phone] Seth Fernandez MD Unavailable [phone] Mauri Barr MD Unavailable Allergies Active Allergy Reactions Criticality Noted Date Comments Clindamycin 09/19/2017 Other reaction(s): Itching/Hives/Rash Other reaction(s): Itching/Hives/Rash Medications Medication Sig Dispensed Refills Start Date End Date Status metoprolol tartrate (LOPRESSOR) 50 mg tablet Take 1 tablet (50 mg) by mouth twice daily. 0 2 Active senna-docusate (SENOKOT-S) 8.6 mg-50 mg tabletIndicatio ns:Adenocarcino ma, NOS of upper lobe, lung <Left> Take 2 tablets by mouth 2 (two) times a day as needed for constipation. 20 tablet 0 2 Active albuterol (PROVENTIL,VENT BETO) 2.5 mg/3 mL (0.083%) nebulizer solution Inhale 3 mL (2.5 mg) by nebulization twice daily. Patient has been using 3-4 times a day 0 Active apixaban (Eliquis) 2.5 mg tabletIndicatio ns:Cerebral venous sinus thrombosis Take 1 tablet (2.5 mg) by mouth every 12 (twelve) hours. 60 tablet 6 3 Active ondansetron (ZOFRAN) 8 mg tablet TAKE 1 TABLET BY MOUTH EVERY 8 HOURS NEEDED FORNAUSEA AND VOMITING 0 3 Active budesonide-form oterol (SYMBICORT) 160-4.5 mcg/actuation inhaler Inhale 2 puffs by mouth. 0 3 Active gabapentin (NEURONTIN) 300 mg capsuleIndicati ons:Postoperati ve pain TAKE 1 CAPSULE(300 MG) BY MOUTH THREE TIMES DAILY 90 capsule 0 3 Active esomeprazole (NexIUM) 40 MG capsule Take 1 capsule (40 mg) by mouth every morning before breakfast. 0 08/28/19 24 Discontinued folic acid (FOLVITE) 400 mcg tabletIndicatio ns:Adenocarcino ma, NOS of upper lobe, lung <Left> Take 1 tablet (400 mcg) by mouth daily. 30 tablet 2 2 08/28/19 24 Discontinued senna (SENOKOT) 8.6 mg tablet Take 1 tablet by mouth every other day. 0 08/28/19 24 Discontinued lidocaine (LIDODERM) 5% (700 mg/patch) transdermal patchIndication s:Adenocarcinom a, NOS of upper lobe, lung <Left> Place 1 patch on the skin daily. Remove & Discard patch within 12 hours or as directed by MD. Remove old patch(es) before replacing new patch(es). 30 patch 0 2 02/06/20 23 Discontinued(The rapy completed) apixaban (Eliquis) 2.5 mg tabletIndicatio ns:Cerebral venous sinus thrombosis Take 1 tablet (2.5 mg) by mouth every 12 (twelve) hours. 60 tablet 2 3 10/26/19 23 Discontinued prochlorperazin e (Compazine) 5 mg tabletIndicatio ns:Adenocarcino ma, NOS of upper lobe, lung <Left>,Nausea Take 1 tablet (5 mg) by mouth every 8 (eight) hours as needed for nausea. 30 tablet 0 3 02/06/20 23 Discontinued(The rapy completed) gabapentin (NEURONTIN) 300 mg capsuleIndicati ons:Postoperati ve pain TAKE 1 CAPSULE(300 MG) BY MOUTH THREE TIMES DAILY 90 capsule 0 3 10/10/19 23 Discontinued gabapentin (NEURONTIN) 300 mg capsuleIndicati ons:Postoperati ve pain TAKE 1 CAPSULE(300 MG) BY MOUTH THREE TIMES DAILY 90 capsule 0 3 11/15/19 23 Discontinued Eliquis 2.5 mg tabletIndicatio ns:Cerebral venous sinus thrombosis TAKE 1 TABLET(2.5 MG) BY MOUTH EVERY 12 HOURS 60 tablet 2 3 10/26/19 23 Discontinued(Reo rder) apixaban (Eliquis) 2.5 mg tabletIndicatio ns:Cerebral venous sinus thrombosis Take 1 tablet (2.5 mg) by mouth every 12 (twelve) hours. 60 tablet 3 3 11/09/19 23 Discontinued(Reo rder) atorvastatin (LIPITOR) 40 mg tablet TAKE 1 TABLET BY MOUTH ONCE DAILY 0 3 02/03/20 23 Discontinued(Not Applicable) pantoprazole (PROTONIX) 40 mg EC tablet TAKE 1 TABLET BY MOUTH DAILY 0 3 08/28/19 24 Discontinued gabapentin (NEURONTIN) 300 mg capsuleIndicati ons:Postoperati ve pain TAKE 1 CAPSULE(300 MG) BY MOUTH THREE TIMES DAILY 90 capsule 0 3 02/13/20 23 Discontinued sodium,potassiu m,mag sulfates 17.5-3.13-1.6 gram solr MIX AND DRINK DIRECTED 0 3 02/03/20 23 Discontinued(Not Applicable) Dulera 100-5 mcg/actuation HFAA INHALE 1 PUFF BY MOUTH TWICE DAILY. 0 3 02/03/20 23 Discontinued(Not Applicable) fluconazole (DIFLUCAN) 150 mg tablet 0 3 02/03/20 23 Discontinued(Not Applicable) dexAMETHasone (DECADRON) 4 mg tablet 0 3 02/03/20 23 Discontinued(Not Applicable) brompheniramine -pseudoephedrin e-DM 2-30-10 mg/5 mL syrup Take 10 mL by mouth. 0 3 02/03/20 23 Discontinued(Not Applicable) baclofen (LIORESAL) 10 mg tablet 0 3 02/03/20 23 Discontinued(Not Applicable) alendronate (FOSAMAX) 70 mg tablet TAKE 1 TABLET BY MOUTH ONCE WEEKLY ON AN EMPTY STOMACH BEFORE BREAKFAST. REMAIN UPRIGHT FOR 30 MINUTES AND TAKE WITH 8OZ OF WATER 0 3 08/28/19 24 Discontinued gabapentin (NEURONTIN) 300 mg capsuleIndicati ons:Postoperati ve pain TAKE 1 CAPSULE(300 MG) BY MOUTH THREE TIMES DAILY 90 capsule 0 3 03/09/20 23 Discontinued apixaban (Eliquis) 2.5 mg tabletIndicatio ns:Cerebral venous sinus thrombosis Take 1 tablet (2.5 mg) by mouth every 12 (twelve) hours for 360 days. 180 tablet 3 3 08/28/19 24 Discontinued(Dup licate order) gabapentin (NEURONTIN) 300 mg capsuleIndicati ons:Postoperati ve pain TAKE 1 CAPSULE(300 MG) BY MOUTH THREE TIMES DAILY 90 capsule 0 3 04/09/20 23 Discontinued gabapentin (NEURONTIN) 300 mg capsuleIndicati ons:Postoperati ve pain TAKE 1 CAPSULE(300 MG) BY MOUTH THREE TIMES DAILY 90 capsule 0 3 05/08/20 23 Discontinued Active Problems Problem Noted Date Diagnosed Date Postoperative pain 06/30/2022 Last Assessment & Plan: After assessment her symptoms are indicative of thoracic nerve pain. I have refilled her gabapentin prescription and advised her to start with 3 times a day again and then wean off per the typical protocol we previously ordered. Sent to her local [facility] pharmacy. Constipation 05/09/2022 Last Assessment & Plan: She did suffer some severe constipation that [...] us for assistance. Antineoplastic chemotherapy induced anemia 05/09 Last Assessment & Plan: Hemoglobin hematocrit 10.1/31.3 respectively. We will monitor this during her preop labs before surgery. After surgery if she needs a blood transfusion we will of course treat her if needed. Abnormal weight loss 05/09/2022 Last Assessment & Plan: She normally weighs about 115 pounds. She [...] I have put in a referral for dredge operator supervisor to give her a call to assist her. Cerebral thrombosis 01/24/2022 Last Assessment & Plan: She was found to have a cerebral thrombus and has been on Eliquis since December 2021. She is asymptomatic from this. She will need to stop Eliquis 3 days before surgery. She has stopped Eliquis before without issue. Simple chronic bronchitis 12/27/2021 Other chest pain 12/27/2021 Nicotine dependence 12/14/2021 Adenocarcinoma, NOS of upper lobe, lung <Left> 0 12/08/2021 Cancer Staging:Clinical stage from 12/02/2021:Stage IIB(cT3, cN0, cM0) - Signed by Josephine Modi NP on 12/22/2021 Pathologic stage from 05/31/2022: ypT0, pN0, cM0 - Signed by Josephine Modi NP on 05/31/2022 Last Assessment & Plan: Ms. Jennings is a 76-year-old female with stage IIb left upper lobe adenocarcinoma who completed [...] nausea and she has been taking tramadol intermittently as she is run out of the gabapentin. I have reordered gabapentin for her and encouraged her to take tramadol anytime she feels breakthrough pain. Encouraged her to eat with medications and to eat something small several times a day. She is lost 5 pounds since her last weight done here. She is 97 pounds. She declined need to see our dredge operator supervisor as she has resources from her from her previous visit. I mentioned to her we will see her in 3 to [address] chest and most likely TMO will follow along. Chronic obstructive pulmonary disease 09/20/2017 Coronary arteriosclerosis 09/20/2017 Gastroesophageal reflux disease 09/20/2017 Hypertensive disorder 09/20/2017 Tobacco user 09/20/2017 Shortness of breath 09/20/2017 Encounters Date Type Department Care Team Description 08/28/2023 10:00 AM CDT Telemedicine [facility] [place] [facility], 9th [place] [address] Sudeep Crouch MD Adenocarcinoma, NOS of upper lobe, lung <Left> (Primary Dx) 08/23/2023 8:15 AM SUPERVISOR MICROFILM DUPLICATING UNIT Ancillary Procedure [facility] [address] [facility] [address] [place] [address] Sofy Ambrose PA Adenocarcinoma, NOS of upper lobe, lung <Left> 08/23/2023 Travel 08/13/2023 Refill [facility] [place] [facility] Oncology [address] [facility] Main [facility], 9th [place] [address] Cyndy Anglin RN Adenocarcinoma, NOS of upper lobe, lung <Left> 06/07/2023 [facility]ill [facility] [address] [facility], 4th [place] [address] Reynaldo Boone MD Postoperative pain 05/29/2023 8:20 AM SUPERVISOR MICROFILM DUPLICATING UNIT Telemedicine [facility] - Medical Oncology [address] [facility] Main dg, 9th [place] [address] Sudeep Crouch MD Adenocarcinoma, NOS of upper lobe, lung <Left> 05/28/2023 [facility] Oncology [address] [facility] Main dg, 9th [place] [address] Sudeep Crouch MD 05/25/2023 7:35 AM SUPERVISOR MICROFILM DUPLICATING UNIT Ancillary Procedure [facility] [address] [facility] [address] [place] [address] Arnol, STORM Spencer Adenocarcinoma, NOS of upper lobe, lung <Left> 05/25/2023 Travel 05/08/2023 Refill [facility] [address] [facility] Main [facility], 4th [place] [address] Mauri Barr MD Postoperative pain 04/08/2023 Refill [facility] [address] [facility] Main [facility], 4th [place] [address] Mauri Barr MD Postoperative pain 03/09/2023 Refill [facility] [address] [facility] Main [facility], 4th [place] [address] Mauri Barr MD Postoperative pain 02/12/2023 8:15 AM CDT Telemedicine [facility] - Hematology [address] [facility], 6th [place] [address] Keaton Rodriguez MD Cerebral venous sinus thrombosis 02/10/2023 Refill [facility] [address] [facility] Main [facility], 4th [place] [address] Mauri Barr MD Postoperative pain 02/05/2023 11:00 AM CDT Telemedicine [facility] Oncology [address] [facility] Main dg, 9th [place] [address] Sudeep Crouch MD Adenocarcinoma, NOS of upper lobe, lung <Left> 02/02/2023 12:20 PM CDT Ancillary Procedure MD [facility] [place] [address] [address] Sofy Ambrose E, PA Adenocarcinoma, NOS of upper lobe, lung <Left> 02/02/2023 Telephone [facility] - Medical Oncology [address] [place] [address] Main Bldg, 9th [place] [address] Lucia Machado MA 02/02/2023 Travel 01/27/2023 8:00 PM CDT Ancillary Procedure [facility] [address] [place] [address] Sumeet Ambroserielle E, PA Adenocarcinoma, NOS of upper lobe, lung <Left> 01/27/2023 Orders Only [facility] - Medical Oncology [address] [place] [address] Main Bldg, 9th [place] [address] Arnol Sofy E, PA Adenocarcinoma, NOS of upper lobe, lung <Left> (Primary Dx) 01/23/2023 Orders Only [facility] Oncology [address] [place] [address] Main Bldg, 9th [place] [address] Arnol Soyf E, PA Adenocarcinoma, NOS of upper lobe, lung <Left> (Primary Dx) 01/22/2023 Orders Only [facility] - Medical Oncology [address] [place] [address] Main Bldg, 9th [place] [address] Sumeet Ambroserielle E, PA Adenocarcinoma, NOS of upper lobe, lung <Left> (Primary Dx) 01/16/2023 8:15 AM CDT Ancillary Procedure MD [facility] [place] [address] [place] [address] Mona Reid APRN Cerebral venous sinus thrombosis 01/16/2023 Travel 01/12/2023 8:00 AM CDT Telemedicine [facility] - Gastroenterology, Hepatology & Nutrition [address] [place] [address] Main Bldg, 7th [place] [address] Seth Fernandez MD Liver enzymes level above reference range 01/10/2023 Telephone [facility] - Medical Oncology [address] [facility], 7th [place] [address] Bruna Albarran MA 01/09/2023 Travel 11/20/2022 3:20 PM CDT - 11/20/2022 11:59 PM CDT Hospital Encounter [facility] [address] [facility], 4th [place] [address] Mauri Barr MD Postoperative pain Discharge Disposition: Home 11/11/2022 Refill [facility], 4th [place] [address] Mauri Barr MD Postoperative pain 11/09/[address] [facility], 7th [place] [address] Joanna Landon MD 11/08/2022 Orders Only [facility] - Hematology [address] [place] [address], 6th [place] [address] Mona Reid APRN Cerebral venous sinus thrombosis 11/06/2022 10:00 AM CDT Telemedicine [facility] - Medical Oncology [facility], 9th [place] [address] Sudeep Crouch MD Adenocarcinoma, NOS of upper lobe, lung <Left> 11/02/2022 9:55 AM CDT Ancillary Procedure [facility] [address] [facility] [address] [place] [address] Josephine Modi APRN Encounter for follow-up examination after completed treatment for malignant neoplasm 11/02/2022 Travel 10/25/2022 Orders Only [facility] - Hematology [address] [place] [address], 6th [place] [address] Mona Reid APRN Cerebral venous sinus thrombosis 10/24/2022 Refill [facility] Hematology [address] [place] [address], 6th [place] [address] [place], Mona J, [employer] DEL[employer]ER AND INSTALLER Cerebral venous sinus thrombosis 10/07/2022 Refill [facility] [address] [facility] Main dg, 4th [place] [address] Mauri Barr MD Postoperative pain 09/29/2022 Telephone [facility] [place] - Medical On[facility] Main dg, 9th [place] [address] Sofy Ambrose PA 09/29/2022 Telephone [facility] [place] - [facility]cology [address] [facility] Main dg, 9th [place] [address] Lilian Castellon RN 09/22/2022 Orders Only MD [facility] - Thoracic Surgical Oncology [address] [facility] 3rd [place] [address] Josephine Modi, B[employer] DELIVERER AND INSTALLER after 09/20/2022 Immunizations Name Administration Dates Next Due Pneumococcal Polysaccharide 09/20/2017 Surgical History Surgery Date Site/Laterality Comments TUMOR EXCISION Right right shoulder "lipoma" CORONARY ANGIOPLASTY 06/18/2016 - 06/17/2017 no intervention CATARACT EXTRACTION BILATERAL W/ ANTERIOR VITRECTOMY Bilateral COLONOSCOPY 06/18/2017 - 06/17/2018 3 precancerous polpys removed DILATION AND CURETTAGE OF UTERUS [facility] EBUS GUIDED SAMPL 3/> NODE STATION/STRUX 12/21/2021 N/A Procedure: BRONCHOSCOPY WITH EBUS 3 OR MORE NODES; Surgeon: Kaylie Mota MD; Location: MAIN PULM PROC; Service: PULMONARY [place] THORACOSCOPY W/LOBECTOMY SINGLE LOBE 05/25/2022 Left Procedure: ROBOTIC (RATS) (SI) LOBECTOMY; Surgeon: Jim Hernadez MD; Location: MAIN OR; Service: THRCV - THORACIC SURGERY Medical devices from this surgery are in the Medical Devices section. MN THORCOSCPY W/MEDIASTINL & REGIONL LYMPHDENECTOMY 05/25/2022 Left Procedure: ROBOTIC (RATS) (SI) MEDIASTINAL LYMPHADENECTOMY; Surgeon: Jim Hernadez MD; Location: MAIN OR; Service: THRCV - THORACIC SURGERY Medical devices from this surgery are in the Medical Devices section. Medical History Medical History [...] Date Smoking Tobacco: Former Cigarettes 1 62 0 06/18/1959 - 01/12/2022 Smokeless Tobacco: Never Tobacco Cessation:Counseling Given: Not Answered Comments:6-8 cpd x 1 month Alcohol Use Standard Drinks/Week Comments Not Currently 0 (1 standard drink = 0.6 oz pur e alcohol) Education Answer Date Recorded What is the highest level of school you have completed or the highest degree you have received? 10th grade 11/29/2021 Sex and Gender Information Value Date Recorded Sex Assigned at Not on file Gender Identity Not on file Sexual Orientation Not on file Job Start Date Occupation Industry Not on file Not on file Not on file Obstetrics History Last Filed Vital Signs Vital Sign Reading Time Taken Comments Blood Pressure - - Pulse - - Temperature - - Respiratory Rate - - Oxygen Saturation - - Inhaled Oxygen Concentration - - Weight 52.2 kg (115 lb 1.3 oz) 02/02/2023 10:38 AM CDT Height 156.5 cm (5' 1.61") 02/02/2023 10:38 AM C DT Body Mass Index 21.31 02/02/2023 10:38 AM CDT Plan of Treatment Upcoming Encounters Date Type Department Care Team Description 11/26/2023 8:30 AM CDT Lab MD [facility] [place] [facility] [address] [place] [address] Sofy Ambrose PA [address] [place] [address] 11/26/2023 9:30 AM CDT Ancillary Procedure MD [facility] [place] [address] [address] Sofy Ambrose PA [facility] [place] [address] 11/27/2023 10:00 AM CDT Telemedicine [facility] - Medical Oncology [address] [place] [address], 9th [place] [address] Sudeep Crouch MD [address] [place], [place] [id number] 12/17/2023 10:15 AM CDT Office Visit [facility] - Hematology [address] [facility], 6th [place] [address] Keaton Rodriguez MD [address] [place], [place] [id number] Health Maintenance Due Date Last Done Comments COVID-19 Vaccine (#1) 04/13/1946 Influenza Vaccine 02/16/2023 Medical Devices Implanted Type Area Poultry Feed Supervisor Device Identifier Shelf Expiration Date Model / Serial / Lot Cath Thoracic Str 28fr - [id number] Implanted:Qty: 1 on 05/25/2022 by Jim Hernadez MD at [facility] Left: Chest [employer] 01/06/2025 [id number] / / [id number] Procedures Procedure Name Priority Date/Time Associated Diagnosis Comments CT CHEST W CONTRAST Routine 08/23/2023 8 :46 AM SUPERVISOR MICROFILM DUPLICATING UNIT Adenocarcinoma, NOS of upper lobe, lung <Left> .CBC Routine 08/23/2023 7:45 AM SUPERVISOR MICROFILM DUPLICATING UNIT Adenocarcinoma, NOS of upper lobe, lung <Left> FREE THYROXINE Routine 08/23/2023 7:45 AM SUPERVISOR MICROFILM DUPLICATING UNIT Adenocarcinoma, NOS of upper lobe, lung <Left> THYROID STIMULATING HORMONE Routine 08/23/2023 7:45 AM SUPERVISOR MICROFILM DUPLICATING UNIT Adenocarcinoma, NOS of upper lobe, lung <Left> COMPREHENSIVE METABOLIC PANEL Routine 08/23/2023 7:45 AM SUPERVISOR MICROFILM DUPLICATING UNIT Adenocarcinoma, NOS of upper lobe, lung <Left> COMPLETE BLOOD COUNT W/ DIFFERENTIAL Routine 08/23/2023 7:45 AM SUPERVISOR MICROFILM DUPLICATING UNIT Adenocarcinoma, NOS of upper lobe, lung <Left> CT CHEST W CONTRAST Routine 05/25/2023 9 :17 AM SUPERVISOR MICROFILM DUPLICATING UNIT Adenocarcinoma, NOS of upper lobe, lung <Left> .CBC Routine 05/25/2023 7:26 AM SUPERVISOR MICROFILM DUPLICATING UNIT Adenocarcinoma, NOS of upper lobe, lung <Left> PHOSPHORUS LEVEL Routine 05/25/2023 7:26 AM SUPERVISOR MICROFILM DUPLICATING UNIT Adenocarcinoma, NOS of upper lobe, lung <Left> MAGNESIUM LEVEL Routine 05/25/2023 7:26 AM SUPERVISOR MICROFILM DUPLICATING UNIT Adenocarcinoma, NOS of upper lobe, lung <Left> FREE THYROXINE Routine 05/25/2023 7:26 AM SUPERVISOR MICROFILM DUPLICATING UNIT Adenocarcinoma, NOS of upper lobe, lung <Left> THYROID STIMULATING HORMONE Routine 05/25/2023 7:26 AM SUPERVISOR MICROFILM DUPLICATING UNIT Adenocarcinoma, NOS of upper lobe, lung <Left> COMPLETE BLOOD COUNT W/ DIFFERENTIAL Routine 05/25/2023 7:26 AM SUPERVISOR MICROFILM DUPLICATING UNIT Adenocarcinoma, NOS of upper lobe, lung <Left> COMPREHENSIVE METABOLIC PANEL Routine 05/25/2023 7:26 AM SUPERVISOR MICROFILM DUPLICATING UNIT Adenocarcinoma, NOS of upper lobe, lung <Left> CT CHEST ABDOMEN PELVIS W CONTRAST Routine 02/02/2023 12:42 PM CDT Adenocarcinoma, NOS of upper lobe, lung <Left> FRACTIONATED BILIRUBIN Routine 10:17 AM CDT Adenocarcinoma, NOS of upper lobe, lung <Left> TOTAL PROTEIN Routine 02/02/2023 10:17 AM CDT Adenocarcinoma, NOS of upper lobe, lung <Left> ASPARTATE AMINOTRANSFERASE Routine 02/02/2023 10:17 AM CDT Adenocarcinoma, NOS of upper lobe, lung <Left> ALANINE AMINOTRANSFERASE Routine 023 10:17 AM CDT Adenocarcinoma, NOS of upper lobe, lung <Left> ALKALINE PHOSPHATASE Routine 02/02/2023 10:17 AM CDT Adenocarcinoma, NOS of upper lobe, lung <Left> ALBUMIN LEVEL Routine 02/02/2023 10:17 AM CDT Adenocarcinoma, NOS of upper lobe, lung <Left> CALCIUM LEVEL Routine 02/02/2023 10:17 AM CDT Adenocarcinoma, NOS of upper lobe, lung <Left> .GLOMERULAR FILTRATION RATE Routine 02/02/2023 10:17 AM CDT Adenocarcinoma, NOS of upper lobe, lung <Left> SERUM CREATININE Routine 02/02/2023 10:1 7 AM CDT Adenocarcinoma, NOS of upper lobe, lung <Left> ELECTROLYTE PANEL Routine 02/02/2023 10: 17 AM CDT Adenocarcinoma, NOS of upper lobe, lung <Left> BLOOD UREA NITROGEN Routine 02/02/2023 1 0:17 AM CDT Adenocarcinoma, NOS of upper lobe, lung <Left> GLUCOSE LEVEL Routine 02/02/2023 10:17 AM CDT Adenocarcinoma, NOS of upper lobe, lung <Left> DIFFERENTIAL Routine 02/02/2023 10:17 AM CDT Adenocarcinoma, NOS of upper lobe, lung <Left> .CBC Routine 02/02/2023 10:17 AM CDT Adenocarcinoma, NOS of upper lobe, lung <Left> THYROID STIMULATING HORMONE Routine 02/02/2023 10:17 AM CDT Adenocarcinoma, NOS of upper lobe, lung <Left> PHOSPHORUS LEVEL Routine 02/02/2023 10:1 7 AM CDT Adenocarcinoma, NOS of upper lobe, lung <Left> MAGNESIUM LEVEL Routine 02/02/2023 10:17 AM CDT Adenocarcinoma, NOS of upper lobe, lung <Left> FREE THYROXINE Routine 02/02/2023 10:17 AM CDT Adenocarcinoma, NOS of upper lobe, lung <Left> COMPREHENSIVE METABOLIC PANEL Routine 02/02/2023 10:17 AM CDT Adenocarcinoma, NOS of upper lobe, lung <Left> COMPLETE BLOOD COUNT W/ DIFFERENTIAL Routine 02/02/2023 10:17 AM CDT Adenocarcinoma, NOS of upper lobe, lung <Left> OSI CT ABDOMEN AND PELVIS Routine 01/19/2023 10:25 AM CDT Adenocarcinoma, NOS of upper lobe, lung <Left> MRI BRAIN W WO CONTRAST Routine 01/17/20 9:16 AM CDT Cerebral venous sinus thrombosis DIFFERENTIAL Routine 01/09/2023 9:57 AM CDT Liver enzymes level above reference range .CBC Routine 01/09/2023 9:57 AM CDT Liver enzymes level above reference range FRACTIONATED BILIRUBIN Routine 9:57 AM CDT Liver enzymes level above reference range TOTAL PROTEIN Routine 01/09/2023 9:57 AM CDT Liver enzymes level above reference range ASPARTATE AMINOTRANSFERASE Routine 01/09/2023 9:57 AM CDT Liver enzymes level above reference range ALANINE AMINOTRANSFERASE Routine 023 9:57 AM CDT Liver enzymes level above reference range ALKALINE PHOSPHATASE Routine 01/09/2023 9:57 AM CDT Liver enzymes level above reference range ALBUMIN LEVEL Routine 01/09/2023 9:57 AM CDT Liver enzymes level above reference range CALCIUM LEVEL Routine 01/09/2023 9:57 AM CDT Liver enzymes level above reference range .GLOMERULAR FILTRATION RATE Routine 01/09/2023 9:57 AM CDT Liver enzymes level above reference range SERUM CREATININE Routine 01/09/2023 9:57 AM CDT Liver enzymes level above reference range ELECTROLYTE PANEL Routine 01/09/2023 9:5 7 AM CDT Liver enzymes level above reference range BLOOD UREA NITROGEN Routine 01/09/2023 9 :57 AM CDT Liver enzymes level above reference range GLUCOSE LEVEL Routine 01/09/2023 9:57 AM CDT Liver enzymes level above reference range COMPLETE BLOOD COUNT W/ DIFFERENTIAL Routine 01/09/2023 9:57 AM CDT Liver enzymes level above reference range COMPREHENSIVE METABOLIC PANEL Routine 01/09/2023 9:57 AM CDT Liver enzymes level above reference range CT CHEST W CONTRAST Routine 11/02/2022 1 0:11 AM CDT Encounter for follow-up examination after completed treatment for malignant neoplasm FRACTIONATED BILIRUBIN Routine 9:04 AM CDT Adenocarcinoma, NOS of upper lobe, lung <Left> TOTAL PROTEIN Routine 11/02/2022 9:04 AM CDT Adenocarcinoma, NOS of upper lobe, lung <Left> ASPARTATE AMINOTRANSFERASE Routine 11/02/2022 9:04 AM CDT Adenocarcinoma, NOS of upper lobe, lung <Left> ALANINE AMINOTRANSFERASE Routine 023 9:04 AM CDT Adenocarcinoma, NOS of upper lobe, lung <Left> ALKALINE PHOSPHATASE Routine 11/02/2022 9:04 AM CDT Adenocarcinoma, NOS of upper lobe, lung <Left> ALBUMIN LEVEL Routine 11/02/2022 9:04 AM CDT Adenocarcinoma, NOS of upper lobe, lung <Left> CALCIUM LEVEL Routine 11/02/2022 9:04 AM CDT Adenocarcinoma, NOS of upper lobe, lung <Left> .GLOMERULAR FILTRATION RATE Routine 11/02/2022 9:04 AM CDT Adenocarcinoma, NOS of upper lobe, lung <Left> SERUM CREATININE Routine 11/02/2022 9:04 AM CDT Adenocarcinoma, NOS of upper lobe, lung <Left> ELECTROLYTE PANEL Routine 11/02/2022 9:0 4 AM CDT Adenocarcinoma, NOS of upper lobe, lung <Left> BLOOD UREA NITROGEN Routine 11/02/2022 9 :04 AM CDT Adenocarcinoma, NOS of upper lobe, lung <Left> GLUCOSE LEVEL Routine 11/02/2022 9:04 AM CDT Adenocarcinoma, NOS of upper lobe, lung <Left> DIFFERENTIAL Routine 11/02/2022 9:04 AM CDT Adenocarcinoma, NOS of upper lobe, lung <Left> .CBC Routine 11/02/2022 9:04 AM CDT Adenocarcinoma, NOS of upper lobe, lung <Left> THYROID STIMULATING HORMONE Routine 11/02/2022 9:04 AM CDT Adenocarcinoma, NOS of upper lobe, lung <Left> FREE THYROXINE Routine 11/02/2022 9:04 AM CDT Adenocarcinoma, NOS of upper lobe, lung <Left> COMPREHENSIVE METABOLIC PANEL Routine 11/02/2022 9:04 AM CDT Adenocarcinoma, NOS of upper lobe, lung <Left> COMPLETE BLOOD COUNT W/ DIFFERENTIAL Routine 11/02/2022 9:04 AM CDT Adenocarcinoma, NOS of upper lobe, lung <Left> after 09/20/2022 Results * CT Chest with Contrast (08/23/2023 8:46 AM [facility]) Only the most recent of3 resultswithin the time period is included. Anatomical Region Laterality Modality Chest Computed Tomogra phy 08/24/2023 1:24 PM [facility] Impressions 08/24/2023 4:58 PM [facility] There are no CT findings of local recurrence of the resected left lung malignancy. There are no wili or distant-extrathoracic systemic metastases. ACTIONABLE ITEMS/RECOMMENDATIONS*: None. Narrative 08/24/2023 4:58 PM [facility] FULL RESULT: Examination: CT CHEST W CONTRAST on 08/23/2023 8:46 AM. 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 Indication: Cancer surveillance. Comparison: Chest CT 05/25/2023. Technique: CT of the chest is performed with intravenous contrast. Findings: Lungs/Airways/Pleura: 1. Postsurgical changes following left upper lobectomy are stable. There are no CT findings of local recurrence of viable malignancy in the resection site. 2. There are no lung nodules suspicious for metastases. Previously described new small left lung nodule has resolved consistent with an inflammatory or infectious etiology. There are a few small scattered lung nodules that are unchanged and consistent with a benign etiology. Neck/Mediastinum/Nodes/Heart: 3. There are no enlarged intrathoracic or extrathoracic lymph nodes. 4. There is coronary artery calcification consistent sequelae of atherosclerosis. Upper Abdomen: 5. There are no hepatic metastases on limited images. There are multiple low-attenuation hepatic lesions that are unchanged and consistent with cysts. There also small focal hypervascular lesions in the liver consistent with hemangiomas. There is a adipose deposition within the liver. 6. The adrenals are normal. Bones/Soft Tissues: 7. There are no osseous metastases. Procedure Note Oren Soto MD - 08/24/2023 FULL RESULT: Examination: CT CHEST W CONTRAST on 08/23/2023 8:46 AM. 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 Indication: Cancer surveillance. Comparison: Chest CT 05/25/2023. Technique: CT of the chest is performed with intravenous contrast. Findings: Lungs/Airways/Pleura: 1. Postsurgical changes following left upper lobectomy are stable. Thereare no CT findings of local recurrence of viable malignancy in theresection site. 2. There are no lung nodules suspicious for metastases. Previouslydescribed new small left lung nodule has resolved consistent with aninflammatory or infectious etiology. There are a few small scattered lungnodules that are unchanged and consistent with a benign etiology. Neck/Mediastinum/Nodes/Heart: 3. There are no enlarged intrathoracic or extrathoracic lymph nodes. 4. There is coronary artery calcification consistent sequelae ofatherosclerosis. Upper Abdomen: 5. There are no hepatic metastases on limited images. There are multiplelow-attenuation hepatic lesions that are unchanged and consistent withcysts. There also small focal hypervascular lesions in the liverconsistent with hemangiomas. There is a adipose deposition within theliver. 6. The adrenals are normal. Bones/Soft Tissues: 7. There are no osseous metastases. IMPRESSION: There are no CT findings of local recurrence of the resected left lungmalignancy. There are no wili or distant-extrathoracic systemicmetastases. ACTIONABLE ITEMS/RECOMMENDATIONS*: None. Sofy INMAN [facility] ORDERABLES * (ABNORMAL) .CBC (08/23/2023 7:45 AM [facility]) Only the most recent of5 resultswithin the time period is included. White Blood Cell 6.5 4.1 - 10.5 K/uL 08/23/2023 7:53 AM [facility] Red Blood Cell 4.07 3.99 - 5.46 M/uL 08/23/2023 7:53 AM [facility] Hemoglobin 12.3 12.2 - 15.3 g/dL 08/23/2023 7:53 AM [facility] Hematocrit 38.1 36.4 - 46.8 % 08/23/2023 7:53 AM [facility] Mean Cell Volume 94 82 - 99 fL 08/23/19 24 7:53 AM [facility] Mean Cell Hemoglobin 30.2 26.6 - 33.2 pg 08/23/2023 7:53 AM [facility] Mean Cell Hemoglobin Concentration 32.3 31.1 - 35.2 g/dL 08/23/2023 7:53 AM [facility] RDW-SD 49.1 37.5 - 49.7 fL 08/23/2023 7:53 AM [facility] Red Cell Diameter Width 14.1 11.6 - 15.5 % 08/23/2023 7:53 AM [facility] Platelet 222 160 - 397 K/uL 08/23/2023 7:53 AM [facility] Mean Platelet Volume 9.0(L) 9.1 - 12.6 fL 08/23/2023 7:53 AM [facility] Neutrophil % 61.0 43.2 - 72.7 % 08/23/2023 7:53 AM [facility] Lymphocyte % 24.6 16.8 - 46.2 % 08/23/2023 7:53 AM [facility] Monocyte % 7.5 5.1 - 12.5 % 08/23/2023 7:53 AM [facility] Eosinophil % 6.2 0.4 - 6.3 % 08/23/2023 7:53 AM [facility] Basophil % 0.5 0.2 - 1.4 % 08/23/2023 7:53 AM [facility] IGRE % 0.2 0.1 - 1.5 % 08/23/2023 7:53 AM [facility] Comment:The IGRE% includes M etamyelocytes, Myelocytes and Promyelocytes. Neutrophil Abs 3.97 1.95 - 7.25 K/uL 08/23/2023 7:53 AM [facility] Lymphocyte Abs 1.60 1.01 - 3.24 K/uL 08/23/2023 7:53 AM [facility] Monocyte Abs 0.49 0.24 - 0.85 K/uL 08/23/2023 7:53 AM [facility] Eosinophil Abs 0.40 0.02 - 0.50 K/uL 08/23/2023 7:53 AM [facility] Basophil Abs 0.03 0.02 - 0.09 K/uL 08/23/2023 7:53 AM [facility] IG Abs 0.01 0.01 - 0.12 K/uL 08/23/2023 7:53 AM [facility] Blood Peripheral blood specimen / Unknown Venipuncture / Unknown 08/23/2023 7:45 AM [facility] 08/23/2023 7:45 AM [facility] Sofy INMAN LAB BLOOD ORDERABLE S [facility] [address] [facility], [facility] [address] [place] [address] * (ABNORMAL) Comprehensive Metabolic Panel (08/23/2023 7:45 AM [facility]) Only the most recent of2 resultswithin the time period is included. Bilirubin Total 0.3 0.0 - 1.2 mg/dL 08/23/2023 8:13 AM [facility] [place] Comment:Indocyanine Green (I CG) may cause falsely elevated bilirubin results. Total and direct bilirubin must not be measured from samples containing indocyanine green. False elevation of total bilirubin can be seen in patients with IgG concentrations above 28 g/L. Bilirubin Direct <0.2 0.0 - 0.3 mg/dL 08/23/2023 8:[address] [facility] [place] Comment:Indocyanine Green (I CG) may cause falsely elevated bilirubin results. Total and direct bilirubin must not be measured from samples containing indocyanine green. Bilirubin Indirect 2023 8:[address] [facility] [place] Comment:Unable to calculate Indirect Bilirubin result due to some parameters are outside reportable range eGFR 53(L) >=60 mL/min/1. 73 sq. m 08/23/2023 8:[address] [facility] [place] Comment: The eGFRcr is calculated with the 2020 CKD-EPI creatinine equation using creatinine, patient's age, and sex for adults 18 years of age and older. Other factors, especially muscle mass, may affect accuracy and need to be considered. According to the Kidney Disease: Improving Global Outcomes (KDIGO) CKD Work Group 2012 Clinical Practice Guideline, chronic kidney disease (CKD) is defined as the abnormalities of kidney structure or function, present for more than 3 months, with implications for health. CKD should be classified by cause, GFR category, and albuminuria category. KDIGO guidelines provide the following GFR categories. Stage / Description / GFR mL/min/1.73 m2: G1* / Normal or high / >= 90 G2* / Mildly decreased / 60-89 G3a / Mildly to moderately decreased / 45-59 G3b / Moderately to severely decreased / 30-44 G4 / Severely decreased / 15-29 G5 / Kidney failure / <15 *In the absence of evidence of kidney damage, neither G1 nor G2 fulfill criteria for CKD. Tot Protein 6.9 6.4 - 8.3 gm/dL 08/23/2023 8:13 AM [facility] Calcium Level Total 9.9 8.2 - 10.2 mg/dL 08/23/2023 8:13 AM [facility] Alkaline Phosphatase 107(H) 35 - 104 U/L 08/23/2023 8:13 AM [facility] Albumin Level 4.2 3.5 - 5.2 gm/dL 08/23/2023 8:13 AM [facility] AST 17 <=32 U/L 08/23/2023 8:13 AM [facility] ALT 8 <=33 U/L 08/23/2023 8:13 AM [facility] Sodium Level 144 136 - 145 mmol/L 08/23/2023 8:13 AM [facility] Potassium Level 4.4 3.4 - 4.5 mmol/L 08/23/2023 8:13 AM [facility] Chloride 107 98 - 107 mmol/L 08/23/2023 8:13 AM [facility] CO2 26 22 - 29 mmol/L 08/23/2023 8:13 AM [facility] Anion Gap 11 4 - 14 mmol/L 08/23/2023 8:13 AM [facility] Creatinine 1.06(H) 0.51 - 0.95 mg/dL 08/23/2023 8:13 AM [facility] BUN 15 6 - 23 mg/dL 08/23/2023 8:13 AM [facility] Glucose Level 87 70 - 99 mg/dL 08/23/2023 8:13 AM [facility] Comment: Effective 01/12/16, the glucose reference intervals have been updated based on [place] [employer] guidelines (Standards of Medical Care in Diabetes 2016. Diabetes Care 2016; 39: S13-S22). Fasting blood glucose: Normal: 70-99 mg/dL Impaired fasting glucose (increased risk for diabetes or pre-diabetes): 100-125 mg/dL Diabetes mellitus: >/=126 mg/dL Random blood glucose: Normal: 70-199 mg/dL Note: Random glucose >100 mg/dL is associated with increased risk for diabetes. Blood Peripheral blood specimen / Unknown Venipuncture / Unknown 08/23/2023 7:45 AM [facility] 08/23/2023 7:45 AM [facility] Sofy INMAN LAB BLOOD ORDERABLE S [facility] [address] [place] [address] [address] * TSH (08/23/2023 7:45 AM [facility]) Only the most recent of4 resultswithin the time period is included. Thyroid Stimulating Hormone 3.07 0.27 - 4.20 mcunit/mL 08/23/2023 8:37 AM [facility] [place] Blood Peripheral blood specimen / Unknown Venipuncture / Unknown 08/23/2023 7:45 AM [facility] 08/23/2023 7:45 AM [facility] Sofy E Arnol PA LAB BLOOD ORDERABLE S [address] [address] * Free T4 (08/23/2023 7:45 AM [facility]) Only the most recent of4 resultswithin the time period is included. T4 (Thyroxine) Free 1.02 0.93 - 1.70 ng/dL 08/23/2023 8:37 AM [facility] [place] Blood Peripheral blood specimen / Unknown Venipuncture / Unknown 08/23/2023 7:45 AM [facility] 08/23/2023 7:45 AM [facility] Sofy Brizuela Arnol PA LAB BLOOD ORDERABLE S [address] [address] * Phosphorus Level (05/25/2023 7:26 AM [facility]) Only the most recent of2 resultswithin the time period is included. Phosphorus Level 2.9 2.5 - 4.5 mg/dL 05/25/2023 8:14 AM [facility] [place] Blood Venipuncture / Unknown 05/25/2023 7:26 AM [facility] 05/25/2023 7:27 AM [facility] Sofy E Arnol PA LAB BLOOD ORDERABLE S [address], [facility] [address] [place] [address] * Magnesium Level (05/25/2023 7:26 AM [facility]) Only the most recent of2 resultswithin the time period is included. Magnesium Level 2.0 1.6 - 2.6 mg/dL 05/25/2023 8:14 AM [facility] [place] Blood Venipuncture / Unknown 05/25/2023 7:26 AM [facility] 05/25/2023 7:27 AM [facility] Sofy Ambrose PA LAB BLOOD ORDERABLE S Performing Organization Address City/[facility] Co de Phone Number [address], [facility] [address] [place] [address] * CT Chest Abdomen Pelvis with Contrast (02/02/2023 12:42 PM CDT) Anatomical Region Laterality Modality Abdomen, Pelvis, Chest Computed Tomography 02/02/2023 1:49 PM CDT Impressions 02/02/2023 2:21 [...] lobe, lung <Left>. Indication: Lung cancer recurrence suspected. Comparison: CT abdomen/pelvis 01/19/[address] chest 11/02/2022 Technique: CT images of the chest, abdomen and pelvis with IV contrast CHEST FINDINGS: Lower Neck, Axillae, and Chest Wall: There are no enlarged axillary or supraclavicular lymph nodes. Lungs: There has been a left upper lobectomy. There is a normal bronchial stump. Mild bronchial wall thickening is present. There is mild centrilobular emphysema. There is a new, small focus of groundglass opacity in the left lower lung which is likely infectious/inflammatory, but is not likely clinically significant (series 7, image 102). A 5 mm right lower lobe groundglass nodule is stable (/99). A few other, smaller pulmonary nodules are stable. There is a new, small focus of atelectasis in the medial right apex (image 17). Mediastinum: There are no enlarged mediastinal or hilar lymph nodes. The heart size is normal. There is no pericardial effusion. The great vessels are normal in diameter. Pleura: Within normal limits ABDOMEN AND PELVIS FINDINGS: Hepatobiliary: Numerous low density lesions in the liver are stable. The gallbladder is present. Spleen: Within normal limits Pancreas: Within normal limits Adrenal Glands: Within normal limits Kidneys and bladder: Small bilateral renal cysts are present. The bladder is unremarkable. Gastrointestinal Tract: The small bowel is unremarkable. Contrast reaches the colon. There are diverticula in the rectosigmoid colon. Reproductive Organs: The uterus is present. An oval mass in the uterine fundus measures 33 mm. This was not hypermetabolic on prior PET, and likely represents a fibroid. There is no adnexal mass. Peritoneum/Retroperitoneum: There is calcific atherosclerosis of the abdominal aorta. Lymph Nodes: There are no enlarged abdominal or pelvic lymph nodes. MUSCULOSKELETAL FINDINGS: There is a stable sclerotic lesion in the left sacrum. There is no suspicious osseous lesion. Mild degenerative changes are noted in the spine. Procedure Note Jonathan Tello MD - 02/02/2023 Examination: CT CHEST ABDOMEN PELVIS W CONTRAST on 02/02/2023 12:42 PM. 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 Indication: Lung cancer recurrence suspected. Comparison: CT abdomen/pelvis 01/19/[address] chest 11/02/2022 Technique: CT images of the chest, abdomen and pelvis with IV contrast CHEST FINDINGS: Lower Neck, Axillae, and Chest Wall: There are no enlarged axillary orsupraclavicular lymph nodes. Lungs: There has been a left upper lobectomy. There is a normal bronchialstump. Mild bronchial wall thickening is present. There is mildcentrilobular emphysema. There is a new, small focus of groundglassopacity in the left lower lung which is likely infectious/inflammatory,but is not likely clinically significant (series 7, image 102). A 5 mmright lower lobe groundglass nodule is stable (). A few other, smallerpulmonary nodules are stable. There is a new, small focus of atelectasisin the medial right apex (image 17). Mediastinum: There are no enlarged mediastinal or hilar lymph nodes. Theheart size is normal. There is no pericardial effusion. The great vesselsare normal in diameter. Pleura: Within normal limits ABDOMEN AND PELVIS FINDINGS: Hepatobiliary: Numerous low density lesions in the liver are stable. Thegallbladder is present. Spleen: Within normal limits Pancreas: Within normal limits Adrenal Glands: Within normal limits Kidneys and bladder: Small bilateral renal cysts are present. The bladderis unremarkable. Gastrointestinal Tract: The small bowel is unremarkable. Contrast reachesthe colon. There are diverticula in the rectosigmoid colon. Reproductive Organs: The uterus is present. An oval mass in the uterinefundus measures 33 mm. This was not hypermetabolic on prior PET, andlikely represents a fibroid. There is no adnexal mass. Peritoneum/Retroperitoneum: There is calcific atherosclerosis of theabdominal aorta. Lymph Nodes: There are no enlarged abdominal or pelvic lymph nodes. MUSCULOSKELETAL FINDINGS: There is a stable sclerotic lesion in the left sacrum. There is nosuspicious osseous lesion. Mild degenerative changes are noted in thespine. IMPRESSION: 1. Stable appearance of the left upper lobectomy. No specific evidence ofrecurrent or metastatic disease in the chest, abdomen, or pelvis. 2. A 5 mm right lower lobe groundglass nodule is stable. The differentialincludes focal fibrosis and atypical adenomatous hyperplasia. ACTIONABLE ITEMS/RECOMMENDATIONS: None. Sofy INMAN [facility] CT ORDERABLES * (ABNORMAL) .Serum Creatinine (02/02/2023 10:17 AM CDT) Only the most recent of3 resultswithin the time period is included. Creatinine 1.23(H) 0.51 - 0.95 mg/dL [place] Comment:Testing performed at [facility], [address] [place] [address], [place] [address] Blood 02/02/2023 10:1 7 AM CDT 02/02/2023 10:18 AM CDT Sofy Ambrose PA LAB BLOOD ORDERABLE S Performing Organization Address City/[facility]/ZIP Co de Phone Number [place] [address] [place] [address] * (ABNORMAL) Glomerular Filtration Rate (02/02/2023 10:17 AM CDT) Only the most recent of3 resultswithin the time period is included. eGFR 45(L) >=60 mL/min/1.7 3 sq. m [place] Comment: The eGFRcr is calculated with the 2020 CKD-EPI creatinine equation using creatinine, patient's age, and sex for adults 18 years of age and older. Other factors, especially muscle mass, may affect accuracy and need to be considered. According to the Kidney Disease: Improving Global Outcomes (KDIGO) CKD Work Group 2012 Clinical Practice Guideline, chronic kidney disease (CKD) is defined as the abnormalities of kidney structure or function, present for more than 3 months, with implications for health. CKD should be classified by cause, GFR category, and albuminuria category. KDIGO guidelines provide the following GFR categories Stage Description GFR mL/min/1.73 m2 G1* Normal or high >= 90 G2* Mildly decreased 60-89 G3a Mildly to moderately decreased 45-59 G3b Moderately to severely decreased 30-44 G4 Severely decreased 15-29 G5 Kidney failure <15 *In the absence of evidence of kidney damage, neither G1 nor G2 fulfill criteria for CKD. Testing performed at [facility], [address] [place] [id number] Blood 02/02/2023 10:1 7 AM CDT 02/02/2023 10:18 AM CDT Sofy Ambrose PA LAB BLOOD ORDERABLE S Performing Organization Address City/[facility]/ZIP Co de Phone Number [place] [id number] [place] [address] [place] [address] * Fractionated Bilirubin (02/02/2023 10:17 AM CDT) Only the most recent of3 resultswithin the time period is included. [facility] Bili Total 0.3 <=1.2 mg/dL [place] Comment: Indocyanine Green (ICG) may cause falsely elevated bilirubin results. Total and direct bilirubin must not be measured from samples containing indocyanine green. False elevation of total bilirubin can be seen in patients with IgG concentrations above 28 g/L. Testing performed at [facility], [address] [place] [id number] Bili Direct <0.2 <=0.3 mg/dL [place] Comment: Indocyanine Green (ICG) may cause falsely elevated bilirubin results. Total and direct bilirubin must not be measured from samples containing indocyanine green. Testing performed at [facility], [address] [place] [id number] Bili Indirect See Note 0.0 - 0.9 mg/dL [place] Comment: Unable to calculate Indirect Bilirubin result due to some parameters are outside reportable range Testing performed at [facility], [address] [place] [id number] Blood 02/02/2023 10:1 7 AM CDT 02/02/2023 10:18 AM CDT Sofy INMAN LAB BLOOD ORDERABLE S Performing Organization Address [facility]/State/[facility] Co de Phone Number [address], [facility] [address] [place] [address] * (ABNORMAL) Differential (02/02/2023 10:17 AM CDT) Only the most recent of3 resultswithin the time period is included. [facility] Neutrophil % 60.9 43.2 - 72.7 % [place] Comment:All components of th e Differential performed at [facility], [address] [place] [id number] Lymphocyte % 22.8 16.8 - 46.2 % [place] Comment:As part of the Diffe rential testing performed at [facility], [address] [place] [address], [place] [address] Monocyte % 8.7 5.1 - 12.5 % [place] Comment:As part of the Diffe rential testing performed at [facility], [address] [place] [address], [place] [address] Eosinophil % 6.8(H) 0.4 - 6.3 % [place] Comment:As part of the Diffe rential testing performed at [facility], [address] [place] [address], [place] [address] Basophil % 0.6 0.2 - 1.4 % [place] Comment:As part of the Diffe rential testing performed at [facility], [address] [place] [address], [place] [address] IGRE % 0.2 0.1 - 1.5 % [place] Comment: IGRE % count includes Metamyelocytes, Myelocytes, and Promyelocytes. As part of the Differential testing performed at [facility], [address] [place] [address], [place] [address] Neutrophil Abs 3.77 1.95 - 7.25 K/uL [place] Comment:As part of the Diffe rential testing performed at [facility], [address] [place] [id number] Lymphocyte Abs 1.41 1.01 - 3.24 K/uL [place] Comment:As part of the Diffe rential testing performed at [facility], [address] [place] [address], [place] [address] Monocyte Abs 0.54 0.24 - 0.85 K/uL [place] Comment:As part of the Diffe rential testing performed at [facility], [address] [place] [id number] Eosinophil Abs 0.42 0.02 - 0.50 K/uL [place] Comment:As part of the Diffe rential testing performed at [facility], [address] [place] [address] Basophil Abs 0.04 0.02 - 0.09 K/uL [place] Comment:As part of the Diffe rential testing performed at [facility], [address] [place], [place] [id number] IG Abs 0.01 0.01 - 0.12 K/uL [place] Comment:As part of the Diffe rential testing performed at [facility], [address] [place] [id number] Blood 02/02/2023 10:1 7 AM CDT 02/02/2023 10:18 AM CDT Sofy E Arnol PA LAB BLOOD ORDERABLE [address] [address] [place] [address] * BUN (02/02/2023 10:17 AM CDT) Only the most recent of3 resultswithin the time period is included. BUN 19 6 - 23 mg/dL [place] Comment:Testing performed at [facility], [address] [place] [id number] Blood 02/02/2023 10:1 7 AM CDT 02/02/2023 10:18 AM CDT Sofy E Arnol PA LAB BLOOD ORDERABLE [address] [address] [place] [address] * ALT (02/02/2023 10:17 AM CDT) Only the most recent of3 resultswithin the time period is included. ALT 7 <=33 U/L [place] Comment:Testing performed at [facility], [address] [place] [id number] Blood 02/02/2023 10:1 7 AM CDT 02/02/2023 10:18 AM CDT Sofy E Arnol PA LAB BLOOD ORDERABLE S [address] [address] * Aspartate Aminotransferase (02/02/2023 10:17 AM CDT) Only the most recent of3 resultswithin the time period is included. AST 20 <=32 U/L [place] Comment:Testing performed at [facility], [address] [place] [address] Blood 02/02/2023 10:1 7 AM CDT 02/02/2023 10:18 AM CDT Sofy Ambrose PA LAB BLOOD ORDERABLE S Performing Organization Address City/[facility]/ZIP Co de Phone Number [address] [address] * Total Protein (02/02/2023 10:17 AM CDT) Only the most recent of3 resultswithin the time period is included. Total Protein 6.7 6.4 - 8.3 g/dL [place] Comment:Testing performed at [facility], [address] [place] [id number] Blood 02/02/2023 10:1 7 AM CDT 02/02/2023 10:18 AM CDT Sofy Ambrose PA LAB BLOOD ORDERABLE S [address] [address] * Alkaline Phosphatase (02/02/2023 10:17 AM CDT) Only the most recent of3 resultswithin the time period is included. Alk Phos 90 35 - 104 U/L [place] Comment:Testing performed at [facility], [address] [place] [address] Blood 02/02/2023 10:1 7 AM CDT 02/02/2023 10:18 AM CDT Sofy INMAN LAB BLOOD ORDERABLE [id number] [place] [address] * Glucose Level (02/02/2023 10:17 AM CDT) Only the most recent of3 resultswithin the time period is included. Glucose Level 94 70 - 99 mg/dL [place] Comment: Effective 01/12/16, the glucose reference intervals have been updated based on [place] [employer] guidelines (Standards of Medical Care in Diabetes 2016. Diabetes Care 2016; 39: S13-S22). Fasting blood glucose: Normal: 70-99 mg/dL Impaired fasting glucose (increased risk for diabetes or pre-diabetes): 100- 125 mg/dL Diabetes mellitus: >/=126 mg/dL Random blood glucose: Normal: 70-199 mg/dL Note: Random glucose >100 mg/dL is associated with increased risk for diabetes Testing performed at [facility], [address] [place] [id number] Blood 02/02/2023 10:1 7 AM CDT 02/02/2023 10:18 AM CDT Sofy INMAN LAB BLOOD ORDERABLE S [address] [address] * Calcium Level (02/02/2023 10:17 AM CDT) Only the most recent of3 resultswithin the time period is included. Calcium Lvl 9.7 8.4 - 10.2 mg/dL [place] Comment:Testing performed at [facility], [address] [place] [address] Blood 02/02/2023 10:1 7 AM CDT 02/02/2023 10:18 AM CDT Sofy INMAN LAB BLOOD ORDERABLE S [address] [address] * Albumin Level (02/02/2023 10:17 AM CDT) Only the most recent of3 resultswithin the time period is included. Albumin Lvl 4.1 3.5 - 5.2 gm/dL [place] Comment:Testing performed at [facility], [address] [place] [id number] Blood 02/02/2023 10:1 7 AM CDT 02/02/2023 10:18 AM CDT Sofy INMAN LAB BLOOD ORDERABLE [address] [id number] [place] [address] * Electrolyte Panel (02/02/2023 10:17 AM CDT) Only the most recent of3 resultswithin the time period is included. Sodium Lvl 139 136 - 145 mEq/L [place] Comment:Testing performed at [facility], [address] [place] [address] Potassium Lvl 4.7 3.5 - 5.1 mEq/L [place] Comment:Testing performed at [facility], [address] [place] [address] Chloride 104 98 - 107 mEq/L [place] Comment:Testing performed at [facility], [address] [place] [address] CO2 27 22 - 29 mEq/L [place] Comment:Testing performed at [facility], [address] [place] [address] Anion Gap 8 4 - 14 mEq/L [place] Comment:Testing performed at [facility], [address] [facility], [place] [address] Blood 02/02/2023 10:1 7 AM CDT 02/02/2023 10:18 AM CDT Sofy INMAN LAB BLOOD ORDERABLE S [facility] [address] [facility], [facility] [address] [place] [address] * OSI CT ABDOMEN AND PELVIS (01/19/2023 10:25 AM CDT) Anatomical Region Laterality Modality Abdomen, Pelvis Other 01/29/2023 11:5 8 AM CDT Impressions 01/29/2023 12:12 PM CDT Outside hospital CT ABDOMEN AND PELVIS dated 01/19/2023. Inherently limited examination without IV contrast. No definite metastatic disease. ACTIONABLE ITEMS/RECOMMENDATIONS: None. Narrative 01/29/2023 12:12 PM CDT Examination: OSI CT ABDOMEN AND PELVIS, 01/19/2023 10:25 AM. Clinical History: Adenocarcinoma of upper lobe, lung. Indication: Further information needed for treatment decisions. Comparison: PET CT 08/02/2022. Technique: OSI CT ABDOMEN AND PELVIS was performed without IV contrast. Findings: Partially visualized mildly thickened distal esophagus again noted. Low-density cardiac blood pool suggesting anemia. No suspicious solid organ lesion. Low attenuation foci are unchanged in the liver compatible with cysts, some of which are too small to characterize. The liver can be further evaluated with MRI, if indicated. The gallbladder is unremarkable. No biliary dilatation, hydronephrosis, ascites or bowel obstruction. Unremarkable appendix. No enlarging lymph nodes identified. No suspicious osseous lesion. Procedure Note Koby Soto MD - 01/29/2023 Examination: OSI CT ABDOMEN AND PELVIS, 01/19/2023 10:25 AM. Clinical History: Adenocarcinoma of upper lobe, lung. Indication: Further information needed for treatment decisions. Comparison: PET CT 08/02/2022. Technique: OSI CT ABDOMEN AND PELVIS was performed without IV contrast. Findings: Partially visualized mildly thickened distal esophagus again noted. Low-density cardiac blood pool suggesting anemia. No suspicious solid organ lesion. Low attenuation foci are unchanged in the liver compatible with cysts,some of which are too small to characterize. The liver can be furtherevaluated with MRI, if indicated. The gallbladder is unremarkable. No biliary dilatation, hydronephrosis, ascites or bowel obstruction.Unremarkable appendix. No enlarging lymph nodes identified. No suspicious osseous lesion. IMPRESSION: Outside hospital CT ABDOMEN AND PELVIS dated 01/19/2023. Inherently limited examination without IV contrast. No definite metastatic disease. ACTIONABLE ITEMS/RECOMMENDATIONS: None. Sofy INMAN IMG OUTSIDE IMAGE O RDERABLES * MRI Brain with and without Contrast (01/16/2023 9:16 AM CDT) Anatomical Region Laterality Modality Head Magnetic Resonan ce 01/21/2023 12:2 8 PM CDT Impressions 01/21/2023 12:36 PM CDT 1. No evidence of intracranial metastasis. 2. 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 3. 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 ACTIONABLE ITEMS/RECOMMENDATIONS: None. Narrative 01/21/2023 12:36 PM CDT FULL RESULT: Examination: MRI BRAIN W WO CONTRAST on 01/16/2023 9:16 AM. CLINICAL HISTORY: Lung adenocarcinoma with cerebral venous thrombosis INDICATION: Other reason than stroke, trauma, neoplasm, infection, syncope, or sinusitis, Headache, Cerebral [...] 72). There is no worrisome parenchymal or leptomeningeal enhancement to suggest metastasis. There is persistent loss of flow void within the right transverse sinus, concerning for thrombosis. Remainder of the venous sinuses demonstrate normal flow void. There is no acute hemorrhage or acute infarct. There is no mass effect or midline shift. Stable moderate chronic microvascular ischemic changes are again seen. 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 There is no sellar or suprasellar abnormality. Bone: There are no suspicious calvarial or skull base lesions. The mastoid air cells are clear. Extracranial: The orbits are unremarkable. There is persistent partial opacification of the right maxillary sinus. Mild mucosal thickening is again seen involving bilateral posterior ethmoid air cells. Procedure Note Henok Morales MD - 01/21/2023 FULL RESULT: Examination: MRI BRAIN W WO CONTRAST on 01/16/2023 9:16 AM. CLINICAL HISTORY: Lung adenocarcinoma with cerebral venous thrombosis INDICATION: Other reason than stroke, trauma, neoplasm, infection,syncope, or sinusitis, Headache, Cerebral venous sinus thrombosis (knownor suspected), history of cerebral sinus venous thrombosis. COMPARISON: MRI brain from 02/04/2022. TECHNIQUE: MRI of the brain without and with IV contrast was performed. FINDINGS: Intracranial: Stable 6 mm enhancing extra-axial lesion is again seen along the rightanterior falx, most consistent with meningioma (series 18, image 72). There is no worrisome parenchymal or leptomeningeal enhancement to suggestmetastasis. There is persistent loss of flow void within the right transverse sinus,concerning for thrombosis. Remainder of the venous sinuses demonstratenormal flow void. There is no acute hemorrhage or acute infarct. There is no mass effect or midline shift. Stable moderate chronic microvascular ischemic changes are again seen. 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 There is no sellar or suprasellar abnormality. Bone: There are no suspicious calvarial or skull base lesions. The mastoid air cells are clear. Extracranial: The orbits are unremarkable. There is persistent partial opacification of the right maxillary sinus. Mild mucosal thickening is again seen involving bilateral posteriorethmoid air cells. IMPRESSION: 1. No evidence of intracranial metastasis. 2. 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 3. 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 ACTIONABLE ITEMS/RECOMMENDATIONS: None. 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 Operator Relationship Specialty Start Date End Date Sheba Velez [address] [place] [address] PCP - External Primary Care Provider Nurse Practitioner 11/17/21 Clay Ahumada MD [address] [place] [phone] PCP - External Follow Up A Pulmonary Medicine 11/17/21 Sudeep Crouch MD [address] [place] [address] PCP - General Thoracic Medicine 12/27/21 Guanaco Henderson MD [address] [place] [address] Cardiology 05/09/22 Keaton Rodriguez MD [address] [place] [address] Consulting Physician Hematology and Oncology 03/27/22 Kaylie Mota MD [address] [place] [address] Consulting Physician Pulmonary Medicine 12/20/21 Seth Fernandez MD [facility] [place] [address] Consulting Physician Gastroenterology, Hepatology and Nutrition 09/12/22 Mauri Barr MD [facility] [place] [address] Consulting Physician Pain Management 08/04/22
[2023-09-20 12:33] LABS: Absolute Eosinophils 0.2 K/uL (0-0.5); Absolute Lymphocytes (CBC) 1.3 K/uL (0.7-4.9); Absolute Monocytes 0.4 K/uL (0.1-1.3); Absolute Neutrophil 3.1 K/uL (1.8-8.0); Basophils % 0.9 % (0-1.3); Eosinophils % 4.8 % (0-4.4); Hematocrit 37.4 % (36.0-45.0); Hemoglobin 12.2 g/dL (12.0-15.0); Lymphocytes % 25.6 % (15.3-44.8); MCH 29.7 pg (27.0-35.0); MCHC 32.7 g/dL (32.0-36.0); MCV 90.7 fL (80-100); MPV 6.9 fL (7.6-11.3); Monocytes % 7.7 % (3.3-12.3); Nucleated Red Blood Cells % 0.1 % (0-0); Platelets 266 thou/uL (152-406); RBC Red Blood Cell Count 4.12 M/uL (3.86-4.86); Red Cell Distribution Width 15.7 % (12.1-15.2)
[2023-09-20 12:43] LABS: PT Prothrombin Time 14.1 SECONDS (9.5-12.5); PTT, Activated Partial Thromb 36.7 SECONDS (24.3-36.9); Protime INR 1.29
[2023-09-20 12:45] LABS: Anion Gap 6.9 mEq/L (5.0-15.0); Potassium 3.9 mEq/L (3.5-5.1)
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
[2023-09-20] MEDS ORDERED: ONDANSETRON 4 MG (ODT) TAB ONE (14:40)
[2023-09-20 15:42] VITALS: BP 137/75; TEMP 97.8; O2SAT 99
== END 2023-09-20 14:57 | disposition home or self-care (01) ==
LOC: ER 11:08
DX: G44.319 Acute post-traumatic headache, not intractable (principal); V49.40XA Driver injured in collision with unspecified motor vehicles in traffic accident, initial encounter; I10 Essential (primary) hypertension; Z79.01 Long term (current) use of anticoagulants; Z88.1 Allergy status to other antibiotic agents
CPT/HCPCS: 85025; 80048; 36415; 85610; 85730; 70450; 72125; 70496; 70498; 99284; Q9967; Q0162

== ENCOUNTER 2023-10-17 13:23 | Emergency (ER) | payer OTHER ==
--- OUTSIDE RECORDS SUMMARY | 2023-10-17 13:27 | XMS REPORT | Clinical Summary ---
Author Name Unknown Organization [facility] Address [address] [place] [address] Care Team Providers Care Sap Senior Developer Name Role Phone Sheba Velez Unavailable Clay Ahumada MD Unavailable [phone] Sudeep Crouch MD Primary Care Provider Guanaco Henderson MD Unavailable [phone] Keaton Rodriguez MD Unavailable [phone] Kaylie Mota MD Unavailable [phone] Seth Fernandez MD Unavailable [phone] Mauri Barr MD Unavailable Allergies Active [...] we previously ordered. Sent to her local [facility] pharmacy. Constipation 05/09/2022 Last Assessment & Plan: [...] I have put in a referral for button sawyer to give her a call to assist [...] pounds. 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> (Primary Dx) 08/23/2023 8:15 AM CASING WORKER Ancillary Procedure [address] [address] Sofy Ambrose PA Adenocarcinoma, NOS of upper lobe, lung <Left> 08/23/2023 Travel 08/13/2023 [facility]ill [facility] [address] [place] [address], 9th [place] [address] Cyndy Anglin, VALE Adenocarcinoma, NOS of upper lobe, lung <Left> 06/07/2023 [facility] [address] [place] [address], 4th [place] [address] Reynaldo Boone MD Postoperative pain 05/29/2023 8:20 AM CASING WORKER Telemedicine [facility] [address] [place] [address], 9th [place] [address] Sudeep Crouch MD Adenocarcinoma, NOS of upper lobe, lung <Left> 05/28/2023 [facility], 9th [place] [address] Sudeep Crouch MD 05/25/2023 7:35 AM CASING WORKER Ancillary Procedure [place] [facility] [address] Sofy Ambrose PA Adenocarcinoma, NOS of upper lobe, lung <Left> 05/25/2023 Travel 05/08/2023 [facility]ill [facility] [address] [place] [address], 4th [place] [address] Mauri Barr MD Postoperative pain 04/08/2023 [facility] [address] [place] [address], 4th [place] [address] Mauri Barr MD Postoperative pain 03/09/2023 [facility] [address] [place] [address], 4th [place] [address] Mauri Barr MD Postoperative pain 02/12/2023 8:15 AM CDT Telemedicine [facility] - Hematology [address] [facility], 6th [place] [address] Keaton Rodriguez MD Cerebral venous sinus thrombosis 02/10/2023 [facility] [address] [place] [address], 4th [place] [address] Mauri Barr MD Postoperative pain 02/05/2023 11:00 AM CDT Telemedicine [facility] [address] [facility], 9th [place] [address] Sudeep Crouch MD Adenocarcinoma, NOS of upper lobe, lung <Left> 02/02/2023 12:20 PM CDT Ancillary Procedure MD [facility] [address] Sofy Ambrose PA Adenocarcinoma, NOS of upper lobe, lung <Left> 02/02/2023 Telephone [facility] Main Bldg, 9th [place] [address] Lucia Machado MA 02/02/2023 Travel 01/27/2023 8:00 PM CDT Ancillary Procedure [facility] [address] [place] [address] Arnol, Sofy E, PA Adenocarcinoma, NOS of upper lobe, lung <Left> 01/27/2023 Orders Only 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 Main Bldg, 7th [place] [address] Seth Fernandez MD Liver enzymes level above reference range 01/10/2023 Telephone [facility] - [facility] [facility], 7th [place] [address] Bruna Albarran MA 01/09/2023 Travel 11/20/2022 3:20 PM CDT - 11/20/2022 11:59 PM CDT Hospital Encounter [facility] [address] [facility], 4th [place] [address] Mauri Barr MD Postoperative pain Discharge Disposition: Home 11/11/2022 Refill [facility] [address] [facility], 4th [place] [address] Mauri Barr MD Postoperative pain 11/09/[address] [facility] [address] [facility], 7th [place] [address] Joanna Landon MD 11/08/2022 Orders Only [facility] Hematology [address] [place] [address], 6th [place] [address] Mona Reid APRN Cerebral venous sinus thrombosis 11/06/2022 10:00 AM CDT Telemedicine [facility]cology [facility], 9th [place] [address] Sudeep Crouch MD Adenocarcinoma, NOS of upper lobe, lung <Left> 11/02/2022 9:55 AM CDT Ancillary Procedure [facility] [address] [address] Josephine Modi APRN Encounter for follow-up examination after completed treatment for malignant neoplasm 11/02/2022 Travel 10/25/2022 Orders Only [facility] [address] [place] [address], 6th [place] [address] Mona Reid APRN Cerebral venous sinus thrombosis 10/24/2022 Refill [facility] [address] [place] [address], 6th [place] [address] Mona Reid APRN Cerebral venous sinus thrombosis after 10/17/2022 Immunizations Name Administration Dates Next Due Pneumococcal Polysaccharide 09/20/2017 Surgical History Surgery Date Site/Laterality Comments TUMOR EXCISION Right right shoulder "lipoma" CORONARY ANGIOPLASTY 06/18/2016 - 06/17/2017 no intervention CATARACT EXTRACTION BILATERAL W/ ANTERIOR VITRECTOMY Bilateral COLONOSCOPY 06/18/2017 - 06/17/2018 3 precancerous polpys removed DILATION AND CURETTAGE OF UTERUS ME [facility] EBUS GUIDED SAMPL 3/> NODE STATION/STRUX 12/21/2021 N/A Procedure: BRONCHOSCOPY WITH EBUS 3 OR MORE NODES; Surgeon: Kaylie Mota MD; Location: MAIN PULM PROC; Service: PULMONARY ME THORACOSCOPY W/LOBECTOMY SINGLE LOBE 05/25/2022 Left Procedure: ROBOTIC (RATS) (SI) LOBECTOMY; Surgeon: Jim Hernadez MD; Location: MAIN OR; Service: THRCV - THORACIC SURGERY Medical devices from this surgery are in the Medical Devices section. ME THORCOSCPY W/MEDIASTINL & REGIONL LYMPHDENECTOMY 05/25/2022 Left [...] Description 11/26/2023 8:30 AM CDT Lab MD [facility] [address] [place] [address] Sofy Ambrose PA [address] [place] [address] 11/26/2023 9:30 AM CDT Ancillary Procedure MD [facility] [place] [address] [place] [address] oSfy Ambrose PA [address] [place] [address] 11/27/2023 10:00 AM CDT Telemedicine [facility] [address] [place] [address], 9th [place] [address] Sudeep Crouch MD [facility] [place] [address] 12/17/2023 10:15 AM CDT Office Visit [facility] - Hematology [address] [facility], 6th [place] [address] Keaton Rodriguez MD [address] [place] [address] Health Maintenance Due Date Last Done Comments COVID-19 Vaccine (#1) 04/13/1946 Influenza Vaccine 02/17/2024 Medical Devices Implanted Type Area Physical Security Engineer Device Identifier Shelf Expiration Date Model / Serial / Lot Cath Thoracic Str 28fr - [id number] Implanted:Qty: 1 on 05/25/2022 by Jim Hernadez MD at MAIN [facility]ILD[facility] LDA Left: Chest [employer] 01/06/2025 [id number] / / [id number] Procedures Procedure Name Priority Date/Time Associated Diagnosis Comments CT CHEST W CONTRAST Routine 08/23/2023 8 :46 AM CASING WORKER Adenocarcinoma, NOS of upper lobe, lung <Left> .CBC Routine 08/23/2023 7:45 AM CASING WORKER Adenocarcinoma, NOS of upper lobe, lung <Left> FREE THYROXINE Routine 08/23/2023 7:45 AM CASING WORKER Adenocarcinoma, NOS of upper lobe, lung <Left> THYROID STIMULATING HORMONE Routine 08/23/2023 7:45 AM CASING WORKER Adenocarcinoma, NOS of upper lobe, lung <Left> COMPREHENSIVE METABOLIC PANEL Routine 08/23/2023 7:45 AM CASING WORKER Adenocarcinoma, NOS of upper lobe, lung <Left> COMPLETE BLOOD COUNT W/ DIFFERENTIAL Routine 08/23/2023 7:45 AM CASING WORKER Adenocarcinoma, NOS of upper lobe, lung <Left> CT CHEST W CONTRAST Routine 05/25/2023 9 :17 AM CASING WORKER Adenocarcinoma, NOS of upper lobe, lung <Left> .CBC Routine 05/25/2023 7:26 AM CASING WORKER Adenocarcinoma, NOS of upper lobe, lung <Left> PHOSPHORUS LEVEL Routine 05/25/2023 7:26 AM CASING WORKER Adenocarcinoma, NOS of upper lobe, lung <Left> MAGNESIUM LEVEL Routine 05/25/2023 7:26 AM CASING WORKER Adenocarcinoma, NOS of upper lobe, lung <Left> FREE THYROXINE Routine 05/25/2023 7:26 AM CASING WORKER Adenocarcinoma, NOS of upper lobe, lung <Left> THYROID STIMULATING HORMONE Routine 05/25/2023 7:26 AM CASING WORKER Adenocarcinoma, NOS of upper lobe, lung <Left> COMPLETE BLOOD COUNT W/ DIFFERENTIAL Routine 05/25/2023 7:26 AM CASING WORKER Adenocarcinoma, NOS of upper lobe, lung <Left> COMPREHENSIVE METABOLIC PANEL Routine 05/25/2023 7:26 AM CASING WORKER Adenocarcinoma, NOS of upper lobe, lung <Left> [...] upper lobe, lung <Left> ALANINE AMINOTRANSFERASE Routine 9:04 AM CDT Adenocarcinoma, NOS of [...] NOS of upper lobe, lung <Left> after 10/17/2022 Results * CT Chest with Contrast (08/23/2023 8:46 AM CASING WORKER) Only the most recent of3 resultswithin the time period is included. Anatomical Region Laterality Modality Chest Computed Tomogra phy 08/24/2023 1:24 PM CASING WORKER Impressions 08/24/2023 4:58 PM CASING WORKER There are no CT findings of local recurrence of the resected left lung malignancy. There are no wili or distant-extrathoracic systemic metastases. ACTIONABLE ITEMS/RECOMMENDATIONS*: None. Narrative 08/24/2023 4:58 PM CASING WORKER FULL RESULT: Examination: CT CHEST W CONTRAST [...] or distant-extrathoracic systemicmetastases. ACTIONABLE ITEMS/RECOMMENDATIONS*: None. Sofy SALINAS CT ORDERABLES * (ABNORMAL) .CBC (08/23/2023 7:45 AM CASING WORKER) Only the most recent of5 resultswithin the time period is included. Pathologist [facility] White Blood Cell 6.5 4.1 - 10.5 K/uL 08/23/2023 7:53 AM CASING WORKER [facility] Red Blood Cell 4.07 3.99 - 5.46 M/uL 08/23/2023 7:53 AM [facility] Hemoglobin 12.3 12.2 - 15.3 g/dL 08/23/2023 7:53 AM [facility] Hematocrit 38.1 36.4 - 46.8 % 08/23/2023 7:53 AM [facility] Mean Cell Volume 94 82 - 99 fL 08/23/19 7:53 AM [facility] Mean Cell Hemoglobin 30.2 26.6 - 33.2 pg 08/23/2023 7:53 AM [facility] Mean Cell Hemoglobin Concentration 32.3 31.1 - 35.2 g/dL 08/23/2023 7:53 AM [facility] RDW-SD 49.1 37.5 - 49.7 fL 08/23/2023 7:53 AM [facility] Red Cell Diameter Width 14.1 11.6 - 15.5 % 08/23/2023 7:53 AM [facility] Platelet 222 160 - 397 K/uL 08/23/2023 7:53 AM [facility] Mean Platelet Volume 9.0(L) 9.1 - 12.6 fL 08/23/2023 7:53 AM [facility] Neutrophil % 61.0 43.2 - 72.7 % 08/23/2023 7:53 AM [facility] Lymphocyte % 24.6 16.8 - 46.2 % 08/23/2023 7:53 AM [facility] Monocyte % 7.5 5.1 - 12.5 % 08/23/2023 7:53 AM [facility] Eosinophil % 6.2 0.4 - 6.3 % 08/23/2023 7:53 AM [facility] Basophil % 0.5 0.2 - 1.4 % 08/23/2023 7:53 AM [facility] IGRE % 0.2 0.1 - 1.5 % 08/23/2023 7:53 AM [facility] Comment:The IGRE% includes M etamyelocytes, Myelocytes and Promyelocytes. Neutrophil Abs 3.97 1.95 - 7.25 K/uL 08/23/2023 7:53 AM [facility] Lymphocyte Abs 1.60 1.01 - 3.24 K/uL 08/23/2023 7:53 AM [facility] Monocyte Abs 0.49 0.24 - 0.85 K/uL 08/23/2023 7:53 AM [facility] Eosinophil Abs 0.40 0.02 - 0.50 K/uL 08/23/2023 7:53 AM [facility] Basophil Abs 0.03 0.02 - 0.09 K/uL 08/23/2023 7:53 AM [facility] IG Abs 0.01 0.01 - 0.12 K/uL 08/23/2023 7:53 AM [facility] Blood Peripheral blood specimen / Unknown Venipuncture / Unknown 08/23/2023 7:45 AM CASING WORKER 08/23/2023 7:45 AM CASING WORKER Sofy INMAN LAB BLOOD ORDERABLE S [facility] [address] [address] [place] [address] * (ABNORMAL) Comprehensive Metabolic Panel (08/23/2023 7:45 AM CASING WORKER) Only the most recent of2 resultswithin the time period is included. Bilirubin Total 0.3 0.0 - 1.2 mg/dL 08/23/2023 8:13 AM [facility] Comment:Indocyanine Green (I CG) may cause falsely elevated bilirubin results. Total and direct bilirubin must not be measured from samples containing indocyanine green. False elevation of total bilirubin can be seen in patients with IgG concentrations above 28 g/L. Bilirubin Direct <0.2 0.0 - 0.3 mg/dL 08/23/2023 8:13 AM [facility] Comment:Indocyanine Green (I CG) may cause falsely elevated bilirubin results. Total and direct bilirubin must not be measured from samples containing indocyanine green. Bilirubin Indirect 2023 8:13 AM [facility] Comment:Unable to calculate Indirect Bilirubin result due to some parameters are outside reportable range eGFR 53(L) >=60 mL/min/1. 73 sq. m 08/23/2023 8:13 AM [facility] Comment: The eGFRcr is calculated with the [...] 6.4 - 8.3 gm/dL 08/23/2023 8:13 AM [facility] Calcium Level Total 9.9 8.2 - 10.2 mg/dL 08/23/2023 8:13 AM [facility] Alkaline Phosphatase 107(H) 35 - 104 U/L 08/23/2023 8:13 AM [facility] Albumin Level 4.2 3.5 - 5.2 gm/dL 08/23/2023 8:13 AM [facility] AST 17 <=32 U/L 08/23/2023 8:13 AM [facility] ALT 8 <=33 U/L 08/23/2023 8:13 AM [facility] Sodium Level 144 136 - 145 mmol/L 08/23/2023 8:13 AM [facility] Potassium Level 4.4 3.4 - 4.5 mmol/L 08/23/2023 8:13 AM [facility] Chloride 107 98 - 107 mmol/L 08/23/2023 8:13 AM [facility] CO2 26 22 - 29 mmol/L 08/23/2023 8:13 AM [facility] Anion Gap 11 4 - 14 mmol/L 08/23/2023 8:13 AM [facility] Creatinine 1.06(H) 0.51 - 0.95 mg/dL 08/23/2023 8:13 AM [facility] BUN 15 6 - 23 mg/dL 08/23/2023 8:13 AM [facility] Glucose Level 87 70 - 99 mg/dL 08/23/2023 8:13 AM [facility] Comment: Effective 01/12/16, the glucose reference intervals have been updated based on [place] [employer] guidelines (Standards of Medical Care [...] Unknown Venipuncture / Unknown 08/23/2023 7:45 AM CASING WORKER 08/23/2023 7:45 AM CASING WORKER Sofy INMAN LAB BLOOD ORDERABLE S Performing Organization Address City/[facility]/ZIP Co de Phone Number [address], [address] [address] * TSH (08/23/2023 7:45 AM CASING WORKER) Only the most recent of4 resultswithin the time period is included. Thyroid Stimulating Hormone 3.07 0.27 - 4.20 mcunit/mL 08/23/2023 8:37 AM [facility] Blood Peripheral blood specimen / Unknown Venipuncture / Unknown 08/23/2023 7:45 AM CASING WORKER 08/23/2023 7:45 AM CASING WORKER Sofy INMAN LAB BLOOD ORDERABLE S Performing Organization Address City/[facility]/ZIP Co de Phone Number [address], [address] [address] * Free T4 (08/23/2023 7:45 AM CASING WORKER) Only the most recent of4 resultswithin the time period is included. T4 (Thyroxine) Free 1.02 0.93 - 1.70 ng/dL 08/23/2023 8:37 AM CASING WORKER [facility] Blood Peripheral blood specimen / Unknown Venipuncture / Unknown 08/23/2023 7:45 AM CASING WORKER 08/23/2023 7:45 AM CASING WORKER Sofy E Arnol PA LAB BLOOD ORDERABLE S [address], [address] [address] * Phosphorus Level (05/25/2023 7:26 AM CASING WORKER) Only the most recent of2 resultswithin the time period is included. Phosphorus Level 2.9 2.5 - 4.5 mg/dL 05/25/2023 8:14 AM CASING WORKER [facility] Blood Venipuncture / Unknown 05/25/2023 7:26 AM CASING WORKER 05/25/2023 7:27 AM CASING WORKER Sofy E Arnol PA LAB BLOOD ORDERABLE S [address], [address] [address] * Magnesium Level (05/25/2023 7:26 AM CASING WORKER) Only the most recent of2 resultswithin the time period is included. Magnesium Level 2.0 1.6 - 2.6 mg/dL 05/25/2023 8:14 AM CASING WORKER [facility] Blood Venipuncture / Unknown 05/25/2023 7:26 AM CASING WORKER 05/25/2023 7:27 AM CASING WORKER Sofy E Arnol PA LAB BLOOD ORDERABLE S [address], [address] [address] * CT Chest Abdomen Pelvis with Contrast [...] mmright lower lobe groundglass nodule is stable (7/99). A few other, smallerpulmonary nodules are stable. [...] ITEMS/RECOMMENDATIONS: None. Sofy INMAN IMG CT ORDERABLES * (ABNORMAL) .Serum Creatinine (02/02/2023 10:17 AM CDT) Only the most recent of3 resultswithin the time period is included. Creatinine 1.23(H) 0.51 - 0.95 mg/dL [facility] Comment:Testing performed at [facility], [address] [place] [address] Blood 02/02/2023 10:1 7 AM CDT 02/02/2023 10:18 AM CDT Sofy INMAN LAB BLOOD ORDERABLE S Performing Organization Address City/State/[facility] Co de Phone Number [facility] [address] [facility], [facility] [address] [place] [address] * (ABNORMAL) Glomerular Filtration Rate (02/02/2023 10:17 AM CDT) Only the most recent of3 resultswithin the time period is included. eGFR 45(L) >=60 mL/min/1.7 3 sq. m [facility] Comment: The eGFRcr is calculated with the [...] fulfill criteria for CKD. Testing performed at [facility], [address] [place] [address] Blood 02/02/2023 10:1 7 AM CDT 02/02/2023 10:18 AM CDT Sofy INMAN LAB BLOOD ORDERABLE S Performing Organization Address City/State/[facility] Co de Phone Number [address], [facility] [address] [place] [address] * Fractionated Bilirubin (02/02/2023 10:17 AM CDT) Only the most recent of3 resultswithin the time period is included. Bili Total 0.3 <=1.2 mg/dL [facility] Comment: Indocyanine Green (ICG) may cause falsely elevated bilirubin results. Total and direct bilirubin must not be measured from samples containing indocyanine green. False elevation of total bilirubin can be seen in patients with IgG concentrations above 28 g/L. Testing performed at [facility], [address] [place] [address] Bili Direct <0.2 <=0.3 mg/dL [facility] Comment: Indocyanine Green (ICG) may cause falsely elevated bilirubin results. Total and direct bilirubin must not be measured from samples containing indocyanine green. Testing performed at [facility], [address] [place] [address] Bili Indirect See Note 0.0 - 0.9 mg/dL [facility] Comment: Unable to calculate Indirect Bilirubin result due to some parameters are outside reportable range Testing performed at [facility], [address] [place] [address] Blood 02/02/2023 10:1 7 AM CDT 02/02/2023 10:18 AM CDT Sofy INMAN LAB BLOOD ORDERABLE S Performing Organization Address City/State/[facility] Co de Phone Number [address], [facility] [address] [place] [address] * (ABNORMAL) Differential (02/02/2023 10:17 AM CDT) Only the most recent of3 resultswithin the time period is included. Neutrophil % 60.9 43.2 - 72.7 % [facility] Comment:All components of th e Differential performed at [facility], [address] [place] [address] Lymphocyte % 22.8 16.8 - 46.2 % [facility] Comment:As part of the Diffe rential testing performed at [facility], [address] [place] [address] Monocyte % 8.7 5.1 - 12.5 % [facility] Comment:As part of the Diffe rential testing performed at [facility], [address] [place] [address] Eosinophil % 6.8(H) 0.4 - 6.3 % [facility] Comment:As part of the Diffe rential testing performed at [facility], [address] [place] [address] Basophil % 0.6 0.2 - 1.4 % [facility] Comment:As part of the Diffe rential testing performed at [facility], [address] [place] [address] IGRE % 0.2 0.1 - 1.5 % [facility] Comment: IGRE % count includes Metamyelocytes, Myelocytes, and Promyelocytes. As part of the Differential testing performed at [facility], [address] [place] [address] Neutrophil Abs 3.77 1.95 - 7.25 K/uL [facility] Comment:As part of the Diffe rential testing performed at [facility], [address] [place] [address] Lymphocyte Abs 1.41 1.01 - 3.24 K/uL [facility] Comment:As part of the Diffe rential testing performed at [facility], [address] [place] [address] Monocyte Abs 0.54 0.24 - 0.85 K/uL [facility] Comment:As part of the Diffe rential testing performed at [facility], [address] [place] [address] Eosinophil Abs 0.42 0.02 - 0.50 K/uL [facility] Comment:As part of the Diffe rential testing performed at [facility], [address] [place] [address] Basophil Abs 0.04 0.02 - 0.09 K/uL [facility] Comment:As part of the Diffe rential testing performed at [facility], [address] [place] [address] IG Abs 0.01 0.01 - 0.12 K/uL [facility] Comment:As part of the Diffe rential testing performed at [facility], [address] [place] [address] Blood 02/02/2023 10:1 7 AM CDT 02/02/2023 10:18 AM CDT Sofy INMAN LAB BLOOD ORDERABLE S [address], [facility] [address] [place] [address] * BUN (02/02/2023 10:17 AM CDT) Only the most recent of3 resultswithin the time period is included. BUN 19 6 - 23 mg/dL [facility] Comment:Testing performed at [facility], [address] [place] [address] Blood 02/02/2023 10:1 7 AM CDT 02/02/2023 10:18 AM CDT Sofy E Arnol PA LAB BLOOD ORDERABLE S [address] [address] * ALT (02/02/2023 10:17 AM CDT) Only the most recent of3 resultswithin the time period is included. ALT 7 <=33 U/L [facility] Comment:Testing performed at [facility], [address] [place] [address] Blood 02/02/2023 10:1 7 AM CDT 02/02/2023 10:18 AM CDT Sofy E Arnol PA LAB BLOOD ORDERABLE S [address] [address] * Aspartate Aminotransferase (02/02/2023 10:17 AM CDT) Only the most recent of3 resultswithin the time period is included. AST 20 <=32 U/L [facility] Comment:Testing performed at [facility], [address] [place] [address] Blood 02/02/2023 10:1 7 AM CDT 02/02/2023 10:18 AM CDT Sofy E Arnol PA LAB BLOOD ORDERABLE S [address], [address] [address] * Total Protein (02/02/2023 10:17 AM CDT) Only the most recent of3 resultswithin the time period is included. [facility] Total Protein 6.7 6.4 - 8.3 g/dL [facility] Comment:[facility] performed [facility] [facility], [address] [place] [address] Blood 02/02/2023 10:1 7 AM CDT 02/02/2023 10:18 AM CDT Sofy INMAN LAB BLOOD ORDERABLE [address] [id number] [place] [address] * Alkaline Phosphatase (02/02/2023 10:17 AM CDT) Only the most recent of3 resultswithin the time period is included. [facility] Alk Phos 90 35 - 104 U/L [facility] Comment:Testing performed at [facility], [address] [place] [address] Blood 02/02/2023 10:1 7 AM CDT 02/02/2023 10:18 AM CDT Sofy INMAN LAB BLOOD ORDERABLE [id number] [place] [address] * Glucose Level (02/02/2023 10:17 AM CDT) Only the most recent of3 resultswithin the time period is included. [facility] Glucose Level 94 70 - 99 mg/dL [facility] Comment: Effective 01/12/16, the glucose reference intervals have been updated based on [place] [employer] guidelines (Standards of Medical Care in Diabetes 2016. Diabetes Care 2016; 39: S13-S22). Fasting blood glucose: Normal: 70-99 mg/dL Impaired fasting glucose (increased risk for diabetes or pre-diabetes): 100- 125 mg/dL Diabetes mellitus: >/=126 mg/dL Random blood glucose: Normal: 70-199 mg/dL Note: Random glucose >100 mg/dL is associated with increased risk for diabetes Testing performed at [facility], [address] [place] [address] Blood 02/02/2023 10:1 7 AM CDT 02/02/2023 10:18 AM CDT Sofy Ambrose PA LAB BLOOD ORDERABLE S [address] [address] * Calcium Level (02/02/2023 10:17 AM CDT) Only the most recent of3 resultswithin the time period is included. Calcium Lvl 9.7 8.4 - 10.2 mg/dL [facility] Comment:Testing performed at [facility], [address] [place] [address] Blood 02/02/2023 10:1 7 AM CDT 02/02/2023 10:18 AM CDT Sofy Ambrose PA LAB BLOOD ORDERABLE S Performing Organization Address City/[facility]/ZIP Co de Phone Number [address] [address] * Albumin Level (02/02/2023 10:17 AM CDT) Only the most recent of3 resultswithin the time period is included. Albumin Lvl 4.1 3.5 - 5.2 gm/dL [place] Comment:Testing performed at [facility], [address] [place] [address] Blood 02/02/2023 10:1 7 AM CDT 02/02/2023 10:18 AM CDT Sofy Ambrose PA LAB BLOOD ORDERABLE S [address], [facility] [address] [place] [address] * Electrolyte Panel (02/02/2023 10:17 AM CDT) Only the most recent of3 resultswithin the time period is included. Sodium Lvl 139 136 - 145 mEq/L [facility] Comment:Testing performed at [facility], [address] [place] [address] Potassium Lvl 4.7 3.5 - 5.1 mEq/L [facility] Comment:Testing performed at [facility], [address] [place] [address] Chloride 104 98 - 107 mEq/L [place] Comment:Testing performed at [facility], [address] [place] [address] CO2 27 22 - 29 mEq/L [place] Comment:Testing performed at [facility], [address] [place] [address] Anion Gap 8 4 - 14 mEq/L [place] Comment:Testing performed at [facility], [address] [place] [address] Blood 02/02/2023 10:1 7 AM CDT 02/02/2023 10:18 AM CDT Sofy INMAN LAB BLOOD ORDERABLE S Performing Organization Address City/State/[facility] Co de Phone Number [address], [facility] [address] [place] [address] * OSI CT ABDOMEN AND PELVIS (01/19/2023 [...] ITEMS/RECOMMENDATIONS: None. Mona Reid APRN IMG MRI ORDERABL ES after 10/17/2022 Advance Directives Latest Code Status on File Code Status Date Activated Date Inactivated Comments Full Code 05/25/2022 8:46 PM 05/29/2022 2:30 PM Care Teams Sap Senior Developer Relationship Specialty Start Date End Date Rosie Sheba [address] [place] [address] PCP - External Primary Care Provider Nurse Practitioner 11/17/21 Clay Ahumada MD [address] [place] [address] PCP - External Follow Up A Pulmonary Medicine 11/17/21 Sudeep Crouch MD [address] [place] [address] PCP - General Thoracic Medicine 12/27/21 Guanaco Henderson MD [address] [place] [id number] Cardiology 05/09/22 Keaton Rodriguez MD [address] [place] [address] Consulting Physician Hematology and Oncology 03/27/22 Kaylie Mota MD [address] [place] [address] Consulting Physician Pulmonary Medicine 12/20/21 Seth Fernandez MD [address] [place] [address] Consulting Physician Gastroenterology, Hepatology and Nutrition 09/12/22 Mauri Barr MD [address] [place] [address] Consulting Physician Pain Management 08/04/22
[2023-10-17] MEDS ORDERED: NA CHLORIDE 0.9% 1,000 ML ONE ×2 (14:23→17:04)
[2023-10-17 14:38] LABS: Absolute Basophils 0.1 K/uL (0-0.5); Absolute Eosinophils 0.2 K/uL (0-0.5); Absolute Lymphocytes (CBC) 1.3 K/uL (0.7-4.9); Absolute Monocytes 0.5 K/uL (0.1-1.3); Absolute Neutrophil 4.9 K/uL (1.8-8.0); Basophils % 0.8 % (0-1.3); Eosinophils % 2.3 % (0-4.4); Hematocrit 35.4 % (36.0-45.0); Hemoglobin 11.5 g/dL (12.0-15.0); Lymphocytes % 19.2 % (15.3-44.8); MCH 29.2 pg (27.0-35.0); MCHC 32.5 g/dL (32.0-36.0); MCV 89.9 fL (80-100); MPV 6.5 fL (7.6-11.3); Monocytes % 7.1 % (3.3-12.3); Neutrophils % 70.6 % (41.7-73.7); Platelets 370 thou/uL (152-406); RBC Red Blood Cell Count 3.94 M/uL (3.86-4.86); Red Cell Distribution Width 14.9 % (12.1-15.2)
[2023-10-17 15:21] LABS: Albumin 3.4 g/dL (3.4-5.0); Anion Gap 7.6 mEq/L (5.0-15.0); Bilirubin Total 0.4 mg/dL (0.2-1.0); Globulin 3.5 g/dL (2.3-3.5); Potassium 3.6 mEq/L (3.5-5.1); Protein, Total 6.9 g/dL (6.4-8.2); Thyroid Stimulating Hormone 1.41 uIU/mL (0.358-3.740)
[2023-10-17 15:50] LABS: INFLUENZA A NAA NEGATIVE (NEGATIVE); RESPIRATORY SYNCYTIAL VIR NAA NEGATIVE (NEGATIVE); SARS-COV-2 RT PCR NEGATIVE (NEGATIVE)
--- NOTE | 2023-10-17 16:52 | RAD REPORT ---
EXAM DESCRIPTION: CTAbdomen Pelvis W Contrast - 10/17/2023 4:47 pm CLINICAL HISTORY: Abdominal pain. ABD PAIN COMPARISON: Abdomen Pelvis W Contrast dated 04/10/2023 TECHNIQUE: Biphasic CT imaging of the abdomen and pelvis was performed with 100 ml non-ionic IV cont rast. All CT scans are performed using dose optimization technique as appropriate and may include automated exposure control or mA/KV adjustment according to patient size. FINDINGS: The lung bases are clear.Small hiatal hernia. The liver demonstrates numerous cysts. Spleen, pancreas, adrenal glands and kidneys are within normal limits. No bowel obstruction, free air, free fluid or abscess. Sigmoid diverticulosis coli without diverticul itis. The appendix is normal. No evidence of significant lymphadenopathy. No suspicious bony findings. IMPRESSION: No acute intra-abdominal or pelvic finding. Sigmoid diverticulosis coli without diverticulitis.
--- NOTE | 2023-10-17 18:03 | ER ---
Nurse's Notes [facility] Name: Brianne Jennings Age: 78 yrs Sex: Female : 1945 Arrival Date: 10/17/2023 Time: 13:23 Bed 18 Private MD: Diagnosis: Dehydration Presentation: 10/16 13:33 Chief complaint: Patient states: Fatigued, no appetite, abdominal pain every time she nj1 eats, had issues swallowing at times, unable to sleep for about 2 weeks. Coronavirus screen: Vaccine status: Patient reports being unvaccinated. Ebola Screen: Patient denies travel to an Ebola-affected area in the 21 days before illness onset. Initial Sepsis Screen: Does the patient meet any 2 criteria? No. Patient's initial sepsis screen is negative. Does the patient have a suspected source of infection? No. Patient's initial sepsis screen is negative. Risk Assessment: Do you want to hurt yourself or someone else? Patient reports no desire to harm self or others. Onset of symptoms was September 2023. 13:33 Method Of Arrival: Ambulatory [facility] 13:33 Acuity: LYNNE 3 [facility] Triage Assessment: 13:38 General: Appears in no apparent distress. comfortable, Behavior is calm, cooperative, nj appropriate for age. Pain: Complains of pain in head Pain currently is 3 out of 10 on a pain scale. Quality of pain is described as aching. Neuro: Level of Consciousness is awake, alert, obeys commands, Oriented to person, place, time, situation, Reports headache weakness. Respiratory: Airway is patent Respiratory effort is even, unlabored. Historical: - Allergies: 13:37 Clindamycin; nj1 - Home Meds: 14:14 metoprolol tartrate 50 mg Oral tablet every 12 hours [Active]; aspirin 81 mg Oral chew mb9 1 tab once daily [Active]; Eliquis 2.5 mg Oral tablet every 12 hours [Active]; Metoprolol Tartrate Oral 1 tab 2 times per day [Active]; gabapentin oral [Active]; ProAir HFA 90 mcg/actuation inhalation HFAA every 4-6 hours [Active]; omeprazole 20 mg Oral cpDR 1 cap once daily [Active]; Symbicort inhalation [Active]; - PMHx: 13:37 acid reflux; Arthritis; COPD; Hypertension; Lung Cancer; nj1 - PSHx: 13:37 left lung lobe resection; nj1 - Immunization history:: Client reports having NOT received the Covid vaccine. - Infectious Disease History:: Denies. - Social history:: Smoking status: Patient/guardian denies using tobacco, the patient reports quitting approximately 2 years ago. Screenin:00 [facility] ED Fall Risk Assessment (Adult) History of falling in the last 3 months, mb9 including since admission No falls in past 3 months (0 pts) Confusion or Disorientation No (0 pts) Intoxicated or Sedated No (0 pts) Impaired Gait No (0 pts) Mobility Assist Device Used No (0 pt) Altered Elimination No (0 pt) Score/Fall Risk Level 0 - 2 = Low Risk Oriented to surroundings, Maintained a safe environment, Educated pt \T\ family on fall prevention, incl call for assistance when getting out of bed. Abuse screen: Denies threats or abuse. Nutritional screening: No deficits noted. Tuberculosis screening: No symptoms or risk factors identified. Assessment: 14:13 General: Appears in no apparent distress. Behavior is calm, cooperative, appropriate mb9 for age. Pain: Denies pain. Neuro: Level of Consciousness is awake, alert, obeys commands, Oriented to person, place, time, situation, Appropriate for age Reports malaise. Cardiovascular: Heart tones S1 S2 present Patient's skin is warm and dry. Respiratory: Airway is patent Respiratory effort is even, unlabored, Respiratory pattern is regular, symmetrical. GI: Abdomen is flat, non-distended, Bowel sounds present X 4 quads. Abd is soft and non tender X 4 quads. Reports decreased appetite. : No signs and/or symptoms were reported regarding the genitourinary system. EENT: No signs and/or symptoms were reported regarding the EENT system. Derm: Skin is pink, warm \T\ dry. Musculoskeletal: Range of motion: intact in all extremities. 15:15 Reassessment: No changes from previously documented assessment. Patient and/or family mb9 updated on plan of care and expected duration. Pain level reassessed. Patient is alert, oriented x 3, equal unlabored respirations, skin warm/dry/pink. 17:06 Reassessment: Patient appears in no apparent distress at this time. No changes from mb9 previously documented assessment. Patient and/or family updated on plan of care and expected duration. Pain level reassessed. Patient is alert, oriented x 3, equal unlabored respirations, skin warm/dry/pink. 18:05 Reassessment: No changes from previously documented assessment. Patient and/or family mb9 updated on plan of care and expected duration. Pain level reassessed. Patient is alert, oriented x 3, equal unlabored respirations, skin warm/dry/pink. Vital Signs: 13:33 BP 169 / 76; Pulse 59; Resp 17; Temp 98.8(O); Pulse Ox 100% on R/A; Weight 46.72 kg; nj1 Height 5 ft. 2 in. ; Pain 3/10; 15:23 BP 168 / 68; Pulse 55; Resp 16; Pulse Ox 99% on R/A; mb9 17:06 BP 166 / 62; Pulse 59; Resp 16; Pulse Ox 100% on R/A; mb9 18:05 BP 158 / 66; Pulse 60; Resp 18; Pulse Ox 100% on R/A; mb9 13:33 Body Mass Index 18.84 (46.72 kg, 157.48 cm) nj1 13:33 Pain Scale: Adult nj1 ED Course: 13:29 Patient arrived in ED. mg5 13:35 Alicia Schafer PA-C is PHCP. sb4 13:35 Kirstin Rosado MD is Attending Physician. sb4 13:37 Triage completed. nj1 13:38 Arm band placed on left wrist. nj1 13:59 Susie Garcia, RN is Primary Nurse. mb9 14:00 Placed in gown. Bed in low position. Call light in reach. Side rails up X 1. Provided mb9 Education on: press call light if needing anything. Client placed on continuous cardiac and pulse oximetry monitoring. NIBP monitoring applied. secured entrance monitor on. 14:14 No provider procedures requiring assistance completed. mb9 14:31 COVID-19/FLU A+B/RSV Sent. mb9 14:31 TSH Sent. mb9 14:31 CBC with Diff Sent. mb9 14:31 CMP Sent. mb9 14:31 Lipase Sent. mb9 14:32 Initial lab(s) drawn, by nv, sent to lab. COVID swab sent to lab. Flu and/or RSV swab mb9 sent to lab. Inserted saline lock: 22 gauge in left forearm, using aseptic technique. 16:[address] via wheelchair. mb9 16:49 CT Abd/Pelvis - IV Contrast Only In Process Unspecified. EDMS 16:[address] mb9 18:05 IV discontinued, intact, bleeding controlled, No redness/swelling at site. Pressure mb9 dressing applied. Administered Medications: 14:31 Drug: NS 0.9% IV 1000 ml IV at 1 bolus Per protocol; 1000 mL bolus Route: IV; Rate: 1 mb9 bolus; Site: left forearm; 15:30 Follow up: Response: No adverse reaction; IV Status: Completed infusion mb9 17:06 Drug: NS 0.9% IV 1000 ml IV at 1 bolus Per protocol; 1000 mL bolus Route: IV; Rate: 1 mb9 bolus; Site: left forearm; 18:05 Follow up: Response: No adverse reaction; IV Status: Completed infusion mb9 Medication: 14:00 VIS not applicable for this client. mb9 Outcome: 18:03 Discharge ordered by . sb4 18:09 Discharged to home ambulatory, mb9 18:09 Condition: stable 18:09 Discharge instructions given to patient, Instructed on discharge instructions, follow up and referral plans. Demonstrated understanding of instructions, follow-up care, 18:09 Patient left the ED. mb9 Signatures: Dispatcher [employer] EDAlicia Levine PA-C PA-C sb4 Susie Garcia, RN RN mb9 Nisha Mcconnell RN RN nj1 Clara Cerrato mg5
--- NOTE | 2023-10-17 18:04 | EDPHYS ---
Physician Documentation [facility] Name: Brianne Jennings Age: 78 yrs Sex: Female : 1945 Arrival Date: 10/17/2023 Time: 13:23 Bed 18 Private MD: ED Physician Kirstin Rosado HPI: 10/16 14:20 This 78 yrs old Female presents to ER via Ambulatory with complaints of Malaise, sb4 Decreased Appetite. 14:21 patient reports abdominal discomfort, nausea, decreased appetite, generalized weakness sb4 for about 1 month now. she states she saw her PCP last week who did blood work and was told it was abnormal, was started on vitamin D and iron supplementation. states today she was at the grocery store and felt like she was going to pass out so came to the ED for further evaluation. Historical: - Allergies: 13:37 Clindamycin; nj1 - Home Meds: 14:14 metoprolol tartrate 50 mg Oral tablet every 12 hours [Active]; aspirin 81 mg Oral chew mb9 1 tab once daily [Active]; Eliquis 2.5 mg Oral tablet every 12 hours [Active]; Metoprolol Tartrate Oral 1 tab 2 times per day [Active]; gabapentin oral [Active]; ProAir HFA 90 mcg/actuation inhalation HFAA every 4-6 hours [Active]; omeprazole 20 mg Oral cpDR 1 cap once daily [Active]; Symbicort inhalation [Active]; - PMHx: 13:37 acid reflux; Arthritis; COPD; Hypertension; Lung Cancer; nj1 - PSHx: 13:37 left lung lobe resection; nj1 - Immunization history:: Client reports having NOT received the Covid vaccine. - Infectious Disease History:: Denies. - Social history:: Smoking status: Patient/guardian denies using tobacco, the patient reports quitting approximately 2 years ago. ROS: 14:21 Cardiovascular: Negative for chest pain, palpitations, and edema, sb4 14:21 Constitutional: Positive for malaise, 14:21 Abdomen/GI: Positive for nausea, anorexia, 14:21 Neuro: Positive for weakness, 14:21 All other systems are negative, Exam: 14:21 Head/Face: Normocephalic, atraumatic. Eyes: Extra-ocular motions intact. Periorbital sb4 areas with no swelling, redness, or edema. Cardiovascular: Regular rate and rhythm with a normal S1 and S2. Respiratory: Lungs have equal breath sounds bilaterally, clear to auscultation and percussion. No rales, rhonchi or wheezes noted. No increased work of breathing, no retractions or nasal flaring. Abdomen/GI: Soft, non-tender, no distension. Skin: Warm, dry with normal turgor. Normal color with no rashes, no lesions, and no evidence of cellulitis. MS/ Extremity: Pulses equal, no cyanosis. Neurovascular intact. Full, normal range of motion. 14:21 Constitutional: The patient appears in no acute distress, alert, awake, pale, Vital Signs: 13:33 BP 169 / 76; Pulse 59; Resp 17; Temp 98.8(O); Pulse Ox 100% on R/A; Weight 46.72 kg; nj1 Height 5 ft. 2 in. ; Pain 3/10; 15:23 BP 168 / 68; Pulse 55; Resp 16; Pulse Ox 99% on R/A; mb9 17:06 BP 166 / 62; Pulse 59; Resp 16; Pulse Ox 100% on R/A; mb9 18:05 BP 158 / 66; Pulse 60; Resp 18; Pulse Ox 100% on R/A; mb9 13:33 Body Mass Index 18.84 (46.72 kg, 157.48 cm) nj1 13:33 Pain Scale: Adult nj1 MDM: 13:35 Patient medically screened. sb4 17:47 Data reviewed: vital signs, nurses notes, lab test result(s), radiologic studies, and sb4 as a result, I will discharge patient. Care significantly affected by the following chronic conditions: Hypertension. Counseling: I had a detailed discussion with the patient and/or guardian regarding the historical points, exam findings, and any diagnostic results supporting the discharge/admit diagnosis, lab results, radiology results, the need for outpatient follow up, a design eng, to return to the emergency department if symptoms worsen or persist or if there are any questions or concerns that arise at home. 10/16 14:17 Order name: CBC with Diff; Complete Time: 14:39 sb4 10/16 14:17 Order name: CMP; Complete Time: 15:23 sb4 10/16 14:17 Order name: Lipase; Complete Time: 15:23 sb4 10/16 14:17 Order name: TSH; Complete Time: 15:23 sb4 10/16 14:17 Order name: COVID-19/FLU A+B/RSV; Complete Time: 15:52 sb4 10/16 15:23 Order name: CT Abd/Pelvis - IV Contrast Only; Complete Time: 16:55 sb4 10/16 14:17 Order name: IV Saline Lock; Complete Time: 14:31 sb4 10/16 14:17 Order name: Labs collected and sent; Complete Time: 14:31 sb4 Administered Medications: 14:31 Drug: NS 0.9% IV 1000 ml IV at 1 bolus Per protocol; 1000 mL bolus Route: IV; Rate: 1 mb9 bolus; Site: left forearm; 15:30 Follow up: Response: No adverse reaction; IV Status: Completed infusion mb9 17:06 Drug: NS 0.9% IV 1000 ml IV at 1 bolus Per protocol; 1000 mL bolus Route: IV; Rate: 1 mb9 bolus; Site: left forearm; 18:05 Follow up: Response: No adverse reaction; IV Status: Completed infusion mb9 Disposition Summary: 10/17/23 18:03 Discharge Ordered Notes: Location: Home sb4 Problem: new sb4 Symptoms: have improved sb4 Condition: Stable sb4 Diagnosis - Dehydration sb4 Followup: sb4 - With: Emergency Department - When: As needed - Reason: Trouble breathing, Worsening of condition Discharge Instructions: - Discharge Summary Sheet sb4 - Dehydration, Elderly sb4 - Insomnia sb4 Forms: - Patient Portal Instructions sb4 - Leadership Thank You Letter sb4 Signatures: Dispatcher [employer] Alicia Espitia PA-C PA-C sb4 Susie Garcia, RN RN mb9 Nisha Mcconnell, RN RN nj1 Corrections: (The following items were deleted from the chart) 14:18 14:18 CBC+H.LAB.BRZ ordered. EDMS EDMS 14:18 14:18 COMPREHENSIVE METABOLIC PANEL+C.LAB.BRZ ordered. EDMS EDMS 14:18 14:18 LIPASE+C.LAB.BRZ ordered. EDMS EDMS 14:18 14:18 THYROID STIMULAT HORMONE+C.LAB.BRZ ordered. EDMS EDMS 14:18 14:18 COVID-19/FLU A+B/RSV+MOL.LAB.BRZ ordered. EDMS EDMS 15:24 15:24 Abdomen Pelvis W Con+CT.RAD.BRZ ordered. EDMS EDMS
[2023-10-17 18:43] VITALS: BP 158/66; TEMP 98.8; O2SAT 100
== END 2023-10-17 18:09 | disposition home or self-care (01) ==
LOC: ER 13:23
DX: E86.0 Dehydration (principal); Z11.52 Encounter for screening for COVID-19; Z79.01 Long term (current) use of anticoagulants; Z79.82 Long term (current) use of aspirin; Z88.3 Allergy status to other anti-infective agents; Z28.310 Unvaccinated for COVID-19
CPT/HCPCS: 85025; 36415; 84443; 83690; 80053; 0241U; 74177; Q9967; J7030 ×2; 96360; 96361; 99285

== ENCOUNTER 2024-04-05 14:49 | Emergency (ER) | payer OTHER ==
--- OUTSIDE RECORDS SUMMARY | 2024-04-05 14:53 | XMS REPORT | Clinical Summary ---
Author Name Unknown Organization [facility] Address [address] [place] [address] Care Team Providers Care Supply Specialist Name Role Phone Sheba Velez Unavailable Clay Ahumada MD Unavailable [phone] Sudeep Crouch MD Primary Care Provider Guanaco Henderson MD Unavailable Keaton Rodriguez MD Unavailable [phone] Kaylie Mota MD Unavailable [phone] Seth Fernandez MD Unavailable [phone] Mauri Barr MD Unavailable Allergies Active Allergy Reactions Criticality Noted Date Comments Clindamycin 09/19/2017 Other reaction(s): Itching/Hives/Rash Other reaction(s): Itching/Hives/Rash Medications Medication Sig Dispensed Refills Start Date End Date Status metoprolol tartrate (LOPRESSOR) 50 mg tablet Take 1 tablet (50 mg) by mouth twice daily. 2 Active senna-docusate (SENOKOT-S) 8.6 mg-50 mg tabletIndicatio ns:Adenocarcino ma, NOS of upper lobe, lung <Left> Take 2 tablets by mouth 2 (two) times a day as needed for constipation. 20 tablet 2 Active albuterol (PROVENTIL,VENT BETO) 2.5 mg/3 mL (0.083%) nebulizer solution Inhale 3 mL (2.5 mg) by nebulization twice daily. Patient has been using 3-4 times a day Active ondansetron (ZOFRAN) 8 mg tablet TAKE 1 TABLET BY MOUTH EVERY 8 HOURS NEEDED FORNAUSEA AND VOMITING 3 Active budesonide-form oterol (SYMBICORT) 160-4.5 mcg/actuation inhaler Inhale 2 puffs by mouth. 3 Active gabapentin (NEURONTIN) 300 mg capsuleIndicati ons:Postoperati ve pain TAKE 1 CAPSULE(300 MG) BY MOUTH THREE TIMES DAILY 90 capsule 3 Active Additional Information Patient not taking.Reason: No longer taking, Informant: Self, Reported on 12/17/2023 Eliquis 2.5 mg tabletIndicatio ns:Cerebral venous sinus thrombosis TAKE 1 TABLET(2.5 MG) BY MOUTH EVERY 12 HOURS 60 tablet 6 4 Active esomeprazole (NexIUM) 40 MG capsule Take 1 capsule (40 mg) by mouth every morning before breakfast. 08/28/19 24 Discontinued folic acid (FOLVITE) 400 mcg tabletIndicatio ns:Adenocarcino ma, NOS of upper lobe, lung <Left> Take 1 tablet (400 mcg) by mouth daily. 30 tablet 2 2 08/28/19 24 Discontinued senna (SENOKOT) 8.6 mg tablet Take 1 tablet by mouth every other day. 08/28/19 24 Discontinued pantoprazole (PROTONIX) 40 mg EC tablet TAKE 1 TABLET BY MOUTH DAILY 3 08/28/19 24 Discontinued apixaban (Eliquis) 2.5 mg tabletIndicatio ns:Cerebral venous sinus thrombosis Take 1 tablet (2.5 mg) by mouth every 12 (twelve) hours. 60 tablet 6 3 11/13/19 24 Discontinued alendronate (FOSAMAX) 70 mg tablet TAKE 1 TABLET BY MOUTH ONCE WEEKLY ON AN EMPTY STOMACH BEFORE BREAKFAST. REMAIN UPRIGHT FOR 30 MINUTES AND TAKE WITH 8OZ OF WATER 3 08/28/19 24 Discontinued apixaban (Eliquis) 2.5 mg tabletIndicatio ns:Cerebral venous sinus thrombosis Take 1 tablet (2.5 mg) by mouth every 12 (twelve) hours for 360 days. 180 tablet 3 3 08/28/19 24 Discontinued(Dup licate order) gabapentin (NEURONTIN) 300 mg capsuleIndicati ons:Postoperati ve pain TAKE 1 CAPSULE(300 MG) BY MOUTH THREE TIMES DAILY 90 capsule 3 04/09/20 23 Discontinued gabapentin (NEURONTIN) 300 mg capsuleIndicati ons:Postoperati ve pain TAKE 1 CAPSULE(300 MG) BY MOUTH THREE TIMES DAILY 90 capsule 3 05/08/20 23 Discontinued ondansetron (ZOFRAN) 8 mg tabletIndicatio ns:Adenocarcino ma, NOS of upper lobe, lung <Left> Take 1 tablet (8 mg) by mouth every 8 (eight) hours as needed for nausea or vomiting for up to 30 days. 90 tablet 4 01/16/20 24 Active Problems Problem Noted Date Diagnosed Date Postoperative pain 06/30/2022 Last Assessment & Plan: After assessment her symptoms are indicative of thoracic nerve pain. I have refilled her gabapentin prescription and advised her to start with 3 times a day again and then wean off per the typical protocol we previously ordered. Sent to her local [facility] pharmacy. Constipation 05/09/2022 Last Assessment & Plan: [...] I have put in a referral for count team clerk to give her a call to assist [...] pounds. She declined need to see our count team clerk as she has resources from her from her previous visit. I mentioned to her we will see her in 3 to [address] chest and most likely TMO will follow along. Chronic obstructive pulmonary disease 09/20/2017 Coronary arteriosclerosis 09/20/2017 Gastroesophageal reflux disease 09/20/2017 Hypertensive disorder 09/20/2017 Tobacco user 09/20/2017 Shortness of breath 09/20/2017 Encounters Date Type Department Care Team Description 03/28/2024 Telephone [facility] - [facility] Oncology [address] [place] [address] Main dg, [address]th [place] [address] Sofy Ambrose PA 03/27/2024 Travel 03/04/2024 11:00 AM CDT Telemedicine [facility] [address] [place] [address] Main dg, 9th [place] [address] Sudeep Crouch MD Adenocarcinoma, NOS of upper lobe, lung <Left> (Primary Dx) 03/04/2024 Orders Only [facility] [address] [place] [address] Main dg, 9th [place] [address] Sofy Ambrose PA Adenocarcinoma, NOS of upper lobe, lung <Left> (Primary Dx) 03/03/2024 11:15 AM CDT Ancillary Procedure [address] [address] Sofy Ambrose PA Adenocarcinoma, NOS of upper lobe, lung <Left> 03/03/2024 8:40 AM CDT Ancillary Procedure [address] [address] Sofy Ambrose PA Adenocarcinoma, NOS of upper lobe, lung <Left> 03/03/2024 [facility] [address] [place] [address] Main dg, 9th [place] [address] Lucia Machado MA 03/03/2024 Travel 12/17/2023 10:15 AM CDT Telemedicine Internal [facility] - Hematology [address] [facility], 6th [place] [address] Keaton Rodriguez MD Adenocarcinoma, NOS of upper lobe, lung <Left> 11/27/2023 10:00 AM CDT Telemedicine [facility] - Medical Oncology [address] [facility], 9th [place] [address] Sudeep Crouch MD Adenocarcinoma, NOS of upper lobe, lung <Left> (Primary Dx) 11/27/[address] Imaging [address] [facility], 7th [place] [address] Joanna Landon MD 11/27/2023 Orders Only [facility] - Medical Oncology [facility] [facility], 9th [place] [address] Sofy Ambrose PA Adenocarcinoma, NOS of upper lobe, lung <Left> (Primary Dx) 11/26/2023 9:30 AM CDT Ancillary Procedure [address] [address] Sofy Ambrose PA Adenocarcinoma, NOS of upper lobe, lung <Left> 11/26/2023 Travel 11/13/2023 [facility] - Hematology [address] [place] [address], 6th [place] [address] Mona Reid APRN Cerebral venous sinus thrombosis 08/28/2023 10:00 AM CDT Telemedicine [facility] - Medical Oncology [facility], 9th [place] [address] Sudeep Crouch MD Adenocarcinoma, NOS of upper lobe, lung <Left> (Primary Dx) 08/23/2023 8:15 AM 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 Main [facility], 9th [place] [address] Cyndy Anglin RN Adenocarcinoma, NOS of upper lobe, lung <Left> 06/07/2023 Refill [facility] [address] [place] [address] Main [facility], 4th [place] [address] Reynaldo Boone MD Postoperative pain 05/29/2023 8:20 AM SENIOR PHP SOFTWARE DEVELOPER Telemedicine [facility] - Medical Oncology [address] [place] [address] Main dg, 9th [place] [address] Sudeep Crouch MD Adenocarcinoma, NOS of upper lobe, lung <Left> 05/28/2023 [facility] [address] [place] [address] Main [facility], 9th [place] [address] Sudeep Crouch MD 05/25/2023 7:35 AM SENIOR PHP SOFTWARE DEVELOPER Ancillary Procedure [address] [address] Sofy Ambrose PA Adenocarcinoma, NOS of upper lobe, lung <Left> 05/25/2023 Travel 05/08/2023 [facility] [address] [place] [address], 4th [place] [address] Mauri Barr MD Postoperative pain 04/08/2023 [facility] [address] [place] [address], 4th [place] [address] Mauri Barr MD Postoperative pain after 04/06/2023 Immunizations Name Administration Dates Next Due Pneumococcal Polysaccharide PPSV23 09/20/2017 Surgical History Surgery Date Site/Laterality Comments TUMOR EXCISION Right right shoulder "lipoma" CORONARY ANGIOPLASTY 06/18/2016 - 06/17/2017 no intervention CATARACT EXTRACTION BILATERAL W/ ANTERIOR VITRECTOMY Bilateral COLONOSCOPY 06/18/2017 - 06/17/2018 3 precancerous polpys removed DILATION AND CURETTAGE OF UTERUS [facility] 3/> NODE STATION/STRUX 12/21/2021 N/A Procedure: BRONCHOSCOPY WITH EBUS 3 OR MORE NODES; Surgeon: Kaylie Mota MD; Location: MAIN PULM PROC; Service: PULMONARY [place] THORACOSCOPY W/LOBECTOMY SINGLE LOBE 05/25/2022 Left Procedure: ROBOTIC (RATS) (SI) LOBECTOMY; Surgeon: Jim Hernadez MD; Location: MAIN OR; Service: THRCV - THORACIC SURGERY Medical devices from this surgery are in the Medical Devices section. OK THORCOSCPY W/MEDIASTINL & REGIONL LYMPHDENECTOMY 05/25/2022 Left [...] Used Date Smoking Tobacco: Former Cigarettes 1 62.6 0 06/18/1959 - 01/12/2022 Smokeless Tobacco: Never [...] - Inhaled Oxygen Concentration - - Weight 53.7 kg (118 lb 6.2 oz) 03/03/2024 8:22 A M CDT Height - - Body Mass Index 21.93 02/02/2023 10:38 AM CDT Plan of Treatment Upcoming Encounters Date Type Department Care Team (Late st Contact Info) Description 06/23/2024 11:15 AM SENIOR PHP SOFTWARE DEVELOPER Telemedicine Internal Medicine Center - Hematology [address] [facility], 6th [place] [address] Keaton Rodriguez MD [address] [place] [address] [email or web address] 06/30/2024 11:30 AM SENIOR PHP SOFTWARE DEVELOPER Lab [facility] - [facility] [address] [place] [address] Sofy Ambrose PA [address] [place] [id number] [email or web address] 06/30/2024 11:45 AM SENIOR PHP SOFTWARE DEVELOPER Ancillary Procedure MD [place] [address] [address] Sofy Ambrose PA [address] [place] [id number] [email or web address] 07/01/2024 10:00 AM SENIOR PHP SOFTWARE DEVELOPER Telemedicine [facility] - Medical Oncology [address] [place] [address], 9th [place] [address] Sudeep Crouch MD [address] [place] [id number] [email or web address] Health Maintenance Due Date Last Done Comments Pneumococcal Vaccine: 65+ Years (2 of 2 - PCV) 019 09/20/2017 COVID-19 Vaccine (2023- season) 2024 Influenza Vaccine (#1) 2024 Medical Devices Implanted Type Area Composition Worker Device Identifier Shelf Expiration Date Model / Serial / Lot Cath Thoracic Str 28fr - [id number] Implanted:Qty: 1 on 05/25/2022 by Jim Hernadez MD at [facility] Left: Chest [facility] 01/06/2025 [id number] / / [id number] Procedures Procedure Name Priority Date/Time Associated Diagnosis Comments FREE THYROXINE Routine 03/27/2024 11:02 AM CDT Adenocarcinoma, NOS of upper lobe, lung <Left> THYROID STIMULATING HORMONE Routine 03/27/2024 11:02 AM CDT Adenocarcinoma, NOS of upper lobe, lung <Left> FREE T3 Routine 03/27/2024 11:02 AM CDT Adenocarcinoma, NOS of upper lobe, lung <Left> MRI BRAIN W WO CONTRAST Routine 03/03/2024 11:46 AM CDT Adenocarcinoma, NOS of upper lobe, lung <Left> CT CHEST W CONTRAST Routine 03/03/2024 9 :59 AM CDT Adenocarcinoma, NOS of upper lobe, lung <Left> .CBC Routine 03/03/2024 8:05 AM CDT Adenocarcinoma, NOS of upper lobe, lung <Left> FREE THYROXINE Routine 03/03/2024 8:05 AM CDT Adenocarcinoma, NOS of upper lobe, lung <Left> THYROID STIMULATING HORMONE Routine 03/03/2024 8:05 AM CDT Adenocarcinoma, NOS of upper lobe, lung <Left> COMPREHENSIVE METABOLIC PANEL Routine 03/03/2024 8:05 AM CDT Adenocarcinoma, NOS of upper lobe, lung <Left> COMPLETE BLOOD COUNT W/ DIFFERENTIAL Routine 03/03/2024 8:05 AM CDT Adenocarcinoma, NOS of upper lobe, lung <Left> CT CHEST W CONTRAST Routine 11/26/2023 1 0:48 AM CDT Adenocarcinoma, NOS of upper lobe, lung <Left> .CBC Routine 11/26/2023 8:15 AM CDT Adenocarcinoma, NOS of upper lobe, lung <Left> FREE THYROXINE Routine 11/26/2023 8:15 AM CDT Adenocarcinoma, NOS of upper lobe, lung <Left> THYROID STIMULATING HORMONE Routine 11/26/2023 8:15 AM CDT Adenocarcinoma, NOS of upper lobe, lung <Left> COMPLETE BLOOD COUNT W/ DIFFERENTIAL Routine 11/26/2023 8:15 AM CDT Adenocarcinoma, NOS of upper lobe, lung <Left> COMPREHENSIVE METABOLIC PANEL Routine 11/26/2023 8:15 AM CDT Adenocarcinoma, NOS of upper lobe, lung <Left> CT CHEST W CONTRAST Routine 08/23/2023 8 :46 AM SENIOR PHP SOFTWARE DEVELOPER Adenocarcinoma, NOS of upper lobe, lung <Left> .CBC Routine 08/23/2023 7:45 AM SENIOR PHP SOFTWARE DEVELOPER Adenocarcinoma, NOS of upper lobe, lung <Left> FREE THYROXINE Routine 08/23/2023 7:45 AM SENIOR PHP SOFTWARE DEVELOPER Adenocarcinoma, NOS of upper lobe, lung <Left> THYROID STIMULATING HORMONE Routine 08/23/2023 7:45 AM SENIOR PHP SOFTWARE DEVELOPER Adenocarcinoma, NOS of upper lobe, lung <Left> COMPREHENSIVE METABOLIC PANEL Routine 08/23/2023 7:45 AM SENIOR PHP SOFTWARE DEVELOPER Adenocarcinoma, NOS of upper lobe, lung <Left> COMPLETE BLOOD COUNT W/ DIFFERENTIAL Routine 08/23/2023 7:45 AM SENIOR PHP SOFTWARE DEVELOPER Adenocarcinoma, NOS of upper lobe, lung <Left> CT CHEST W CONTRAST Routine 05/25/2023 9 :17 AM SENIOR PHP SOFTWARE DEVELOPER Adenocarcinoma, NOS of upper lobe, lung <Left> .CBC Routine 05/25/2023 7:26 AM SENIOR PHP SOFTWARE DEVELOPER Adenocarcinoma, NOS of upper lobe, lung <Left> PHOSPHORUS LEVEL Routine 05/25/2023 7:26 AM SENIOR PHP SOFTWARE DEVELOPER Adenocarcinoma, NOS of upper lobe, lung <Left> MAGNESIUM LEVEL Routine 05/25/2023 7:26 AM SENIOR PHP SOFTWARE DEVELOPER Adenocarcinoma, NOS of upper lobe, lung <Left> FREE THYROXINE Routine 05/25/2023 7:26 AM SENIOR PHP SOFTWARE DEVELOPER Adenocarcinoma, NOS of upper lobe, lung <Left> THYROID STIMULATING HORMONE Routine 05/25/2023 7:26 AM SENIOR PHP SOFTWARE DEVELOPER Adenocarcinoma, NOS of upper lobe, lung <Left> COMPLETE BLOOD COUNT W/ DIFFERENTIAL Routine 05/25/2023 7:26 AM SENIOR PHP SOFTWARE DEVELOPER Adenocarcinoma, NOS of upper lobe, lung <Left> COMPREHENSIVE METABOLIC PANEL Routine 05/25/2023 7:26 AM SENIOR PHP SOFTWARE DEVELOPER Adenocarcinoma, NOS of upper lobe, lung <Left> after 04/06/2023 Results * Free T3 (03/27/2024 11:02 AM CDT) Free T3 2.7 2.0 - 4.4 pg/mL 03/27/2024 11:53 AM CDT [place] BUD Blood Peripheral blood specimen / Unknown Venipuncture / Unknown 03/27/2024 11:02 AM CDT 03/27/2024 11:02 AM CDT Sofy INMAN LAB BLOOD ORDERABLE S [facility] RED BUD [address] [facility], [facility] [address] [place] [address] * TSH (03/27/2024 11:02 AM CDT) Only the most recent of5 resultswithin the time period is included. Thyroid Stimulating Hormone 0.90 0.27 - 4.20 mcunit/mL 03/27/2024 12:52 PM CDT RED BUD Blood Peripheral blood specimen / Unknown Venipuncture / Unknown 03/27/2024 11:02 AM CDT 03/27/2024 11:02 AM CDT Sofy Chata Arnol PA LAB BLOOD ORDERABLE S [place] [address] [place] [address] * Free T4 (03/27/2024 11:02 AM CDT) Only the most recent of5 resultswithin the time period is included. T4 (Thyroxine) Free 1.02 0.92 - 1.68 ng/dL 03/27/2024 11:53 AM CDT RED BUD Blood Peripheral blood specimen / Unknown Venipuncture / Unknown 03/27/2024 11:02 AM CDT 03/27/2024 11:02 AM CDT Sofy E Arnol PA LAB BLOOD ORDERABLE S Performing Organization Address City/[facility] Co de Phone Number [address], [facility] [address] [place] [address] * MRI Brain with and without Contrast (03/03/2024 11:46 AM CDT) Anatomical Region Laterality Modality Head Magnetic Resonan ce 03/03/2024 12:4 1 PM CDT Impressions 03/03/2024 1:12 PM CDT 1. No evidence of intracranial metastases. 2. Stable 7 mm right frontal parafalcine nodule is favored to represent a small meningioma. 3. Stable appearance of the nonocclusive thrombus of the right transverse sinus. ACTIONABLE ITEMS/RECOMMENDATIONS: None. Narrative 03/03/2024 1:12 PM CDT FULL RESULT: Examination: MRI BRAIN W WO CONTRAST on 03/03/2024 11:46 AM. CLINICAL HISTORY: Adenocarcinoma, NOS of upper lobe, lung <Left>. History of cerebral sinus venous thrombosis INDICATION: Cancer surveillance COMPARISON: 01/16/2023 and 02/04/2022 TECHNIQUE: MRI of the brain without and with IV contrast was performed. FINDINGS: Intracranial: There is no acute hemorrhage or acute infarct. There is no mass effect or midline shift. The ventricles and extra-axial spaces are appropriate for age. There is no sellar or suprasellar abnormality. The vascular flow voids at the [place] of Dave are maintained. Re-noted is a nonocclusive filling defect in the right transverse sinus, suspicious for intraluminal thrombus. It has remained stable since 12/2021. It is better seen in CTV on 01/04/2022. A 0.7 cm enhancing right frontal parafalcine nodule is annotated on series 21 image 82, unchanged since 12/2021. It likely reflects a small meningioma. Scattered foci of high FLAIR signal in the white matter were previously present, most likely related to chronic microvascular ischemic changes. Small stable cavitary lesion in the left cerebellar hemisphere likely reflects chronic small ischemic event. There is no worrisome parenchymal or leptomeningeal enhancement. Bone: There are no suspicious calvarial or skull base lesions. The mastoid air cells are clear. Extracranial: The orbits are unremarkable. Bilateral lens extractions. Small amount of mucosal thickening in sphenoid sinuses and left maxillary sinus. No air-fluid levels. Disk osteophyte complex at C4-C5 level towards the spinal cord, stable since the previous study. Procedure Note Jody Parks MD - 03/03/2024 FULL RESULT: Examination: MRI BRAIN W WO CONTRAST on 03/03/2024 11:46 AM. CLINICAL HISTORY: Adenocarcinoma, NOS of upper lobe, lung <Left>. Historyof cerebral sinus venous thrombosis INDICATION: Cancer surveillance COMPARISON: 01/16/2023 and 02/04/2022 TECHNIQUE: MRI of the brain without and with IV contrast was performed. FINDINGS: Intracranial: There is no acute hemorrhage or acute infarct. There is no mass effect or midline shift. The ventricles and extra-axial spaces are appropriate for age. There is no sellar or suprasellar abnormality. The vascular flow voids at the [place] of [place] are maintained. Re-noted is a nonocclusive filling defect in the right transverse sinus,suspicious for intraluminal thrombus. It has remained stable since 12/2021.It is better seen in CTV on 01/04/2022. A 0.7 cm enhancing right frontal parafalcine nodule is annotated on image 82, unchanged since 12/2021. It likely reflects a smallmeningioma. Scattered foci of high FLAIR signal in the white matter were previouslypresent, most likely related to chronic microvascular ischemic changes. Small stable cavitary lesion in the left cerebellar hemisphere likelyreflects chronic small ischemic event. There is no worrisome parenchymal or leptomeningeal enhancement. Bone: There are no suspicious calvarial or skull base lesions. The mastoid air cells are clear. Extracranial: The orbits are unremarkable. Bilateral lens extractions. Small amount of mucosal thickening in sphenoid sinuses and left maxillarysinus. No air-fluid levels. Disk osteophyte complex at C4-C5 level towards the spinal cord, stablesince the previous study. IMPRESSION: 1. No evidence of intracranial metastases. 2. Stable 7 mm right frontal parafalcine nodule is favored to represent asmall meningioma. 3. Stable appearance of the nonocclusive thrombus of the right transversesinus. ACTIONABLE ITEMS/RECOMMENDATIONS: None. Sofy INMAN Terry MRI ORDERABLES * CT Chest with Contrast (03/03/2024 9:59 AM CDT) Only the most recent of4 resultswithin the time period is included. Anatomical Region Laterality Modality Chest Computed Tomogra phy 03/03/2024 3:39 PM CDT Impressions 03/03/2024 3:52 PM CDT Stable appearance of the left upper lobectomy. No specific evidence of recurrent or metastatic disease in the chest. ACTIONABLE ITEMS/RECOMMENDATIONS*: None. *An Actionable Finding is a finding that may be unrelated to the original reason for imaging but potentially actionable, meaning further investigation may be necessary. The Actionable Findings Vigilance Unit (AFVU) assists medical providers with responding to additional radiologic findings that are unexpected and potentially actionable. Narrative 03/03/2024 3:52 PM CDT FULL RESULT: Examination: CT CHEST W CONTRAST on 03/03/2024 9:59 AM. Clinical History: Adenocarcinoma, NOS of upper lobe, lung <Left> Indication: Cancer surveillance Comparison: 11/26/2023 Technique: CT of the chest is performed with intravenous contrast Findings: Lungs/Airways/Pleura: There has been a left upper lobectomy. There is a normal bronchial stump. The central airways are otherwise clear. A few pulmonary nodules measuring up to 5 mm are stable from the initial postoperative CT on 11/02/2022. There are no new or enlarging pulmonary nodules. The pleural spaces are clear. Neck/Mediastinum/Nodes/Heart: There are no enlarged lymph nodes in the chest. The heart size is normal. There is no pericardial effusion. The great vessels are normal in diameter. Upper abdomen: A hyperdense lesion in the right hepatic lobe measuring 9 mm is stable (series 3, image 115). A nonmass-like area of hyperdensity in the right hepatic lobe is stable. These are likely benign vascular lesions. A few cysts in the liver are stable. Bones/Soft Tissues: There is no suspicious osseous lesion. A sclerotic lesion in the L2 vertebral body measuring 7 mm is stable from the baseline CT in 2021 and is considered benign. Procedure Note Jonathan Tello MD - 03/03/2024 FULL RESULT: Examination: CT CHEST W CONTRAST on 03/03/2024 9:59 AM. Clinical History: Adenocarcinoma, NOS of upper lobe, lung <Left> Indication: Cancer surveillance Comparison: 11/26/2023 Technique: CT of the chest is performed with intravenous contrast Findings: Lungs/Airways/Pleura: There has been a left upper lobectomy. There is anormal bronchial stump. The central airways are otherwise clear. A fewpulmonary nodules measuring up to 5 mm are stable from the initialpostoperative CT on 11/02/2022. There are no new or enlarging pulmonarynodules. The pleural spaces are clear. Neck/Mediastinum/Nodes/Heart: There are no enlarged lymph nodes in thechest. The heart size is normal. There is no pericardial effusion. Thegreat vessels are normal in diameter. Upper abdomen: A hyperdense lesion in the right hepatic lobe measuring 9mm is stable (series 3, image 115). A nonmass-like area of hyperdensity inthe right hepatic lobe is stable. These are likely benign vascularlesions. A few cysts in the liver are stable. Bones/Soft Tissues: There is no suspicious osseous lesion. A scleroticlesion in the L2 vertebral body measuring 7 mm is stable from the baselineCT in 2021 and is considered benign. IMPRESSION: Stable appearance of the left upper lobectomy. No specific evidence ofrecurrent or metastatic disease in the chest. ACTIONABLE ITEMS/RECOMMENDATIONS*: None. *An Actionable Finding is a finding that may be unrelated to the originalreason for imaging but potentially actionable, meaning furtherinvestigation may be necessary. The Actionable Findings Vigilance Unit(AFVU) assists medical providers with responding to additional radiologicfindings that are unexpected and potentially actionable. Sofy INMAN IM CT ORDERABLES * (ABNORMAL) .CBC (03/03/2024 8:05 AM T) Only the most recent of4 resultswithin the time period is included. White Blood Cell 7.2 4.1 - 10.5 K/uL 03/03/2024 8:[address] [facility] Red Blood Cell 3.99 3.99 - 5.46 M/uL 03/03/2024 8:[address] [facility] Hemoglobin 12.3 12.2 - 15.3 g/dL 03/03/2024 8:[address] [facility] Hematocrit 38.6 36.4 - 46.8 % 03/03/2024 8:[address] [facility] Mean Cell Volume 97 82 - 99 fL 03/03/2024 8:[address] [facility] Mean Cell Hemoglobin 30.8 26.6 - 33.2 pg 03/03/2024 8:[address] [facility] Mean Cell Hemoglobin Concentration 31.9 31.1 - 35.2 g/dL 03/03/2024 8:[address] [facility] RDW-SD 50.3(H) 37.5 - 49.7 fL 03/03/2024 8:[address] [facility] Red Cell Diameter Width 14.1 11.6 - 15.5 % 03/03/2024 8:[address] [facility] Platelet 238 160 - 397 K/uL 03/03/2024 8:[address] [facility] Mean Platelet Volume 8.4(L) 9.1 - 12.6 fL 03/03/2024 8:[address] [facility] Neutrophil % 68.4 43.2 - 72.7 % 03/03/2024 8:[address] [facility] Lymphocyte % 18.5 16.8 - 46.2 % 03/03/2024 8:[address] [facility] Monocyte % 7.6 5.1 - 12.5 % 03/03/2024 8:[address] [facility] Eosinophil % 4.5 0.4 - 6.3 % 03/03/2024 8:[address] [facility] Basophil % 0.7 0.2 - 1.4 % 03/03/2024 8:[address] [facility] IGRE % 0.3 0.1 - 1.5 % 03/03/2024 8:[address] [facility] Comment:The IGRE% includes M etamyelocytes, Myelocytes and Promyelocytes. Neutrophil Abs 4.92 1.95 - 7.25 K/uL 03/03/2024 8:[address] [facility] Lymphocyte Abs 1.33 1.01 - 3.24 K/uL 03/03/2024 8:[address] [facility] Monocyte Abs 0.55 0.24 - 0.85 K/uL 03/03/2024 8:[address] [facility] Eosinophil Abs 0.32 0.02 - 0.50 K/uL 03/03/2024 8:[address] [facility] Basophil Abs 0.05 0.02 - 0.09 K/uL 03/03/2024 8:[address] [facility] IG Abs 0.02 0.01 - 0.12 K/uL 03/03/2024 8:[address] [facility] Blood Peripheral blood specimen / Unknown Venipuncture / Unknown 03/03/2024 8:05 AM CDT 03/03/2024 8:06 AM CDT Sofy INMAN LAB BLOOD ORDERABLE S [facility] [address] [facility], [facility] [address] [place] [address] * (ABNORMAL) Comprehensive Metabolic Panel (03/03/2024 8:05 AM CDT) Only the most recent of4 resultswithin the time period is included. [facility] Bilirubin Total 0.3 0.0 - 1.2 mg/dL 03/03/2024 8:[address] [facility] Comment:Indocyanine Green (I CG) may cause falsely elevated bilirubin results. Total and direct bilirubin must not be measured from samples containing indocyanine green. False elevation of total bilirubin can be seen in patients with IgG concentrations above 28 g/L. eGFR 48(L) >=60 mL/min/1. 73 sq. m 03/03/2024 8:[address] [facility] Comment: The eGFRcr is calculated with [...] G2 fulfill criteria for CKD. Tot Protein 7.0 6.4 - 8.3 gm/dL 03/03/2024 8:[address] [facility] Calcium Level Total 9.8 8.2 - 10.2 mg/dL 03/03/2024 8:[address] [facility] Alkaline Phosphatase 102 35 - 104 U/L 03/03/2024 8:[address] [facility] Albumin Level 4.2 3.5 - 5.2 gm/dL 03/03/2024 8:[address] [facility] AST 18 <=32 U/L 03/03/2024 8:[address] [facility] ALT 10 <=33 U/L 03/03/2024 8:[address] [facility] Sodium Level 142 136 - 145 mmol/L 03/03/2024 8:[address] [facility] Potassium Level 4.6(H) 3.4 - 4.5 mmol/L 03/03/2024 8:[address] [facility] Chloride 106 98 - 107 mmol/L 03/03/2024 8:[address] [facility] CO2 25 22 - 29 mmol/L 03/03/2024 8:[address] [facility] Anion Gap 11 4 - 14 mmol/L 03/03/2024 8:[address] [facility] Creatinine 1.16(H) 0.51 - 0.95 mg/dL 03/03/2024 8:[address] [facility] BUN 17 6 - 23 mg/dL 03/03/2024 8:[address] [facility] Glucose Level 90 70 - 99 mg/dL 03/03/2024 8:[address] [facility] Comment: Effective 01/12/16, the glucose reference intervals have been updated based on [place] Diabetes [employer] guidelines (Standards of Medical Care in Diabetes 2016. Diabetes Care 2016; 39: S13-S22). Fasting blood glucose: Normal: 70-99 mg/dL Impaired fasting glucose (increased risk for diabetes or pre-diabetes): 100-125 mg/dL Diabetes mellitus: >/=126 mg/dL Random blood glucose: Normal: 70-199 mg/dL Note: Random glucose >100 mg/dL is associated with increased risk for diabetes. Blood Peripheral blood specimen / Unknown Venipuncture / Unknown 03/03/2024 8:05 AM CDT 03/03/2024 8:06 AM CDT Sofy INMAN LAB BLOOD ORDERABLE S Performing Organization Address City/State/[facility] Co de Phone Number [facility] [address], [facility] [address] [place] [address] * Phosphorus Level (05/25/2023 7:26 AM SENIOR PHP SOFTWARE DEVELOPER) Phosphorus Level 2.9 2.5 - 4.5 mg/dL 05/25/2023 8:14 AM SENIOR PHP SOFTWARE DEVELOPER [employer] Blood Venipuncture / Unknown 05/25/2023 7:26 AM SENIOR PHP SOFTWARE DEVELOPER 05/25/2023 7:27 AM SENIOR PHP SOFTWARE DEVELOPER Sofy Ambrose PA LAB BLOOD ORDERABLE S [address] [id number] * Magnesium Level (05/25/2023 7:26 AM SENIOR PHP SOFTWARE DEVELOPER) Magnesium Level 2.0 1.6 - 2.6 mg/dL 05/25/2023 8:14 AM SENIOR PHP SOFTWARE DEVELOPER [employer] Blood Venipuncture / Unknown 05/25/2023 7:26 AM SENIOR PHP SOFTWARE DEVELOPER 05/25/2023 7:27 AM SENIOR PHP SOFTWARE DEVELOPER Sofy Ambrose PA LAB BLOOD ORDERABLE S [address] [address] after 04/06/2023 Advance Directives * Full Code (Latest Code Status on File) Date Activated Date Inactivated Comments 05/25/2022 8:46 PM 05/29/2022 2:30 PM Care Teams Supply Specialist Relationship Specialty Start Date End Date Sheba Velez [address] [place] [address] PCP - External Primary Care Provider Nurse Practitioner 11/17/21 Clay Ahumada MD [address] [place] [address] PCP - External Follow Up A Pulmonary Medicine 11/17/21 Sudeep Crouch MD [address] [place] [address] [email or web address] PCP - General Thoracic Medicine 12/27/21 Guanaco Henderson MD [address] [place] [phone] Cardiology 05/09/22 Keaton Rodriguez MD [address] [place] [phone] [email or web address] Consulting Physician Hematology and Oncology 03/27/22 Kaylie Mota MD [address] [place] [phone] [email or web address] [email or web address] Physician Pulmonary Medicine 12/20/21 Seth Fernandez MD [address] [place] [phone] [email or web address] Consulting Physician Gastroenterology, Hepatology and Nutrition 09/12/22 Mauri Barr MD [address] [place] [phone] [email or web address] Consulting Physician Pain Management 08/04/22
[2024-04-05] MEDS ORDERED: HYDROCODONE/CHLORPHEN 5 ML/OSYR ONE (15:37)
[2024-04-05] MEDS ORDERED: KETOROLAC 30 MG/ML INJ ONE (15:38)
[2024-04-05] MEDS ORDERED: ACETAMINOPHEN 500 MG TAB ONE (15:38)
[2024-04-05] MEDS ORDERED: ONDANSETRON 4 MG/2 ML VIAL ONE (15:38)
[2024-04-05 15:41] LABS: Absolute Basophils 0.1 K/uL (0-0.5); Absolute Eosinophils 0.2 K/uL (0-0.5); Absolute Lymphocytes (CBC) 1.3 K/uL (0.7-4.9); Absolute Monocytes 0.9 K/uL (0.1-1.3); Absolute Neutrophil 5.6 K/uL (1.8-8.0); Basophils % 0.6 % (0-1.3); Eosinophils % 2.3 % (0-4.4); Hematocrit 36.5 % (36.0-45.0); Hemoglobin 12.2 g/dL (12.0-15.0); Lymphocytes % 16.4 % (15.3-44.8); MCH 31.3 pg (27.0-35.0); MCHC 33.5 g/dL (32.0-36.0); MCV 93.6 fL (80-100); MPV 6.7 fL (7.6-11.3); Monocytes % 10.8 % (3.3-12.3); Neutrophils % 69.9 % (41.7-73.7); Platelets 271 thou/uL (152-406); Red Cell Distribution Width 14.7 % (12.1-15.2)
[2024-04-05 15:53] LABS: SARS-CoV-2 Antigen CONTROL BLUE LINE VIS/BG OK; SARS-CoV-2 Antigen Rapid Res Negative (Negative)
[2024-04-05 16:00] LABS: Troponin High Sensitivity 5.7 pg/mL (<58.9)
--- NOTE | 2024-04-05 16:42 | RAD REPORT ---
Procedure: Chest Pa And Lat (2 Views) HISTORY: Chest pain COMPARISON: 2022 FINDINGS: The lungs appear clear of acute infiltrate. No significant pleural effusion noted. The heart is normal size. IMPRESSION: No acute abnormality is displayed.
--- NOTE | 2024-04-05 16:50 | ER ---
Nurse's Notes [facility] Name: Brianne Jennings Age: 78 yrs Sex: Female : 1945 Arrival Date: 04/05/2024 Time: 14:49 Bed 4 Private MD: Diagnosis: Acute upper respiratory infection, unspecified Presentation: 04/05 14:56 Chief complaint: Patient states: headache X 1 week, no energy, body aches, no appetite iw , neck pain and left hip pain, Sunday had diarrhea, fatigue sun , + productive cough. Coronavirus screen: Client presents with at least one sign or symptom that may indicate coronavirus-19. Ebola Screen: No symptoms or risks identified at this time. 14:56 Method Of Arrival: Ambulatory iw 14:57 Initial Sepsis Screen: Does the patient meet any 2 criteria? No. Patient's initial iw sepsis screen is negative. Does the patient have a suspected source of infection? No. Patient's initial sepsis screen is negative. Risk Assessment: Do you want to hurt yourself or someone else? Patient reports no desire to harm self or others. Onset of symptoms was March 29, 2024. 14:58 Acuity: LYNNE 3 iw Historical: - Allergies: 14:57 Clindamycin; iw - PMHx: 14:57 COPD; Lung Cancer; Hypertension; acid reflux; Arthritis; iw - PSHx: 14:57 left lung lobe resection; iw Screenin:10 [facility] ED Fall Risk Assessment (Adult) History of falling in the last 3 months, aa5 including since admission No falls in past 3 months (0 pts) Confusion or Disorientation No (0 pts) Intoxicated or Sedated No (0 pts) Impaired Gait No (0 pts) Mobility Assist Device Used No (0 pt) Altered Elimination No (0 pt) Score/Fall Risk Level 0 - 2 = Low Risk Oriented to surroundings, Maintained a safe environment, Educated pt \T\ family on fall prevention, incl call for assistance when getting out of bed. Abuse screen: Denies threats or abuse. Nutritional screening: No deficits noted. Tuberculosis screening: No symptoms or risk factors identified. Assessment: 15:10 General: Appears comfortable, Behavior is calm, cooperative, Reports fatigue for >3 aa5 days. Pain: Complains of pain in head, left hip, and neck Pain currently is 8 out of 10 on a pain scale. Quality of pain is described as aching. Neuro: Level of Consciousness is awake, alert, obeys commands, Oriented to person, place, time, situation. Cardiovascular: Heart tones S1 S2 present Rhythm is regular. Respiratory: Reports cough that is productive, Airway is patent Respiratory effort is even, unlabored, Respiratory pattern is regular, symmetrical. GI: Abdomen is non-distended, Bowel sounds present X 4 quads. Abd is soft and non tender X 4 quads. Reports diarrhea, Parent/caregiver reports the patient having no appetite. : No signs and/or symptoms were reported regarding the genitourinary system. EENT: Reports sore throat . Derm: Skin is pink, warm \T\ dry. Musculoskeletal: Range of motion: intact in all extremities. 16:25 Reassessment: Patient is alert, oriented x 3, equal unlabored respirations, skin aa5 warm/dry/pink. Sitting up in bed, states no complaints at this time. . 17:04 Reassessment: Patient is alert, oriented x 3, equal unlabored respirations, skin aa5 warm/dry/pink. Patient states feeling better. Patient states symptoms have improved. 17:23 Reassessment: Patient is alert, oriented x 3, equal unlabored respirations, skin aa5 warm/dry/pink. Vital Signs: 14:56 BP 149 / 76; Pulse 77; Resp 18; Temp 100.1(O); Pulse Ox 100% on R/A; Weight 48.53 kg; iw Height 5 ft. 2 in. ; Pain 8/10; 16:25 BP 134 / 62; Pulse 54; Resp 18 S; Pulse Ox 96% on R/A; aa5 17:20 BP 136 / 80; Pulse 60; Resp 16 S; Pulse Ox 98% on R/A; aa5 14:56 Body Mass Index 19.57 (48.53 kg, 157.48 cm) iw 14:56 Pain Scale: Adult iw ED Course: 14:53 Patient arrived in ED. mr 14:55 Alicia Schafer PA-C is PHCP. sb4 14:55 Koby Elmore MD is Attending Physician. sb4 14:58 Triage completed. iw 14:58 Arm band placed on. iw 14:59 Anabell Alford, VALE is Primary Nurse. aa5 15:10 Patient has correct armband on for positive identification. Bed in low position. Call aa5 light in reach. Side rails up X 1. Pulse ox on. NIBP on. 15:30 Initial lab(s) drawn, by me, sent to lab. Inserted saline lock: 20 gauge in left aa5 forearm, using aseptic technique. Blood collected. Flushed with 10 mL NS. 16:36 Chest Pa And Lat (2 Views) XRAY In Process Unspecified. EDMS 17:23 No provider procedures requiring assistance completed. IV discontinued, intact, aa5 bleeding controlled, No redness/swelling at site. Pressure dressing applied. Administered Medications: 15:48 Drug: Tussionex Pennkinetic ER PO Suspension 5 ml PO once Route: PO; ap3 17:04 Follow up: Response: No adverse reaction aa5 15:48 Drug: Acetaminophen PO 1000 mg PO once Route: PO; ap3 17:04 Follow up: Response: No adverse reaction aa5 15:48 Drug: Ondansetron IVP 4 mg IVP once; over 2 minutes Route: IVP; Site: left forearm; ap3 16:00 Follow up: Response: No adverse reaction aa5 16:48 Not Given (Patient Refused): [id number] mg IVP once sb4 17:04 Drug: Decadron - Dexamethasone IVP 10 mg IVP once Route: IVP; Site: left forearm; aa5 17:23 Follow up: Response: No adverse reaction aa5 17:14 Drug: Ketorolac IVP 15 mg IVP once Route: IVP; Site: left forearm; aa5 17:23 Follow up: Response: No adverse reaction aa5 Medication: 17:20 VIS not applicable for this client. aa5 Outcome: 16:49 Discharge ordered by . sb4 17:23 Discharged to home ambulatory, aa5 17:23 Condition: stable aa5 17:23 Discharge instructions given to patient, Instructed on discharge instructions, follow up and referral plans. medication usage, Demonstrated understanding of instructions, follow-up care, medications, Prescriptions given X 1, 17:24 Patient left the ED. aa5 Signatures: Dispatcher [employer] EDIN Susie Hollingsworth, Reg Reg mr Eleanor Shelton RN RN iw Anabell Alford RN RN aa5 Angeli Mahoney RN RN ap3 Alicia Schafer PA-C PAMakayla sb4 Corrections: (The following items were deleted from the chart) 14:58 14:56 Chief complaint: Patient states: headache X 1 week, no energy, body aches, no iw appetite , neck pain and left hip pain, Sunday had diarrhea, fatigue tues wed thrus iw 14:59 14:56 BP 149 / 76; Pulse 77bpm; Resp 18bpm; Temp 100.1F Oral; iw iw 16:37 15:25 Patient has correct armband on for positive identification. Bed in low position. aa5 Call light in reach. Side rails up X 1. aa5 16:37 15:25 Pulse ox on. NIBP on. aa5 aa5
--- NOTE | 2024-04-05 16:50 | EDPHYS ---
Physician Documentation [facility] Name: Brianne Jennings Age: 78 yrs Sex: Female : 1945 Arrival Date: 04/05/2024 Time: 14:49 Bed 4 Private MD: ED Physician Koby Elmore HPI: 04/05 16:22 This 78 yrs old Female presents to ER via Ambulatory with complaints of Flu Symptoms. sb4 16:22 patient reports diarrhea, nausea, productive cough, nasal congestion, low grade fever, sb4 malaise, body aches x 5 days. states she has been around a lot of kids lately. denies any vomiting. does report some chest pain and shortness of breath with coughing and exertion. Historical: - Allergies: 14:57 Clindamycin; iw - PMHx: 14:57 COPD; Lung Cancer; Hypertension; acid reflux; Arthritis; iw - PSHx: 14:57 left lung lobe resection; iw ROS: 16:22 Skin: Negative for injury, rash, and discoloration, sb4 16:22 Constitutional: Positive for body aches, chills, fatigue, fever, malaise, 16:22 ENT: Positive for sinus congestion, 16:22 Respiratory: Positive for cough, with green sputum, dyspnea on exertion, 16:22 Abdomen/GI: Positive for nausea, diarrhea, 16:22 All other systems are negative, Exam: 16:22 Head/Face: Normocephalic, atraumatic. Eyes: Extra-ocular motions intact. Periorbital sb4 areas with no swelling, redness, or edema. ENT: Mucous membranes moist. Cardiovascular: Regular rate and rhythm with a normal S1 and S2. Respiratory: No increased work of breathing, no retractions or nasal flaring. Abdomen/GI: Soft, non-tender, no distension. Skin: Warm, dry with normal turgor. Normal color with no rashes, no lesions, and no evidence of cellulitis. 16:22 Constitutional: The patient appears in no acute distress, alert, awake, pale, Vital Signs: 14:56 BP 149 / 76; Pulse 77; Resp 18; Temp 100.1(O); Pulse Ox 100% on R/A; Weight 48.53 kg; iw Height 5 ft. 2 in. ; Pain 8/10; 16:25 BP 134 / 62; Pulse 54; Resp 18 S; Pulse Ox 96% on R/A; aa5 17:20 BP 136 / 80; Pulse 60; Resp 16 S; Pulse Ox 98% on R/A; aa5 14:56 Body Mass Index 19.57 (48.53 kg, 157.48 cm) iw 14:56 Pain Scale: Adult iw MDM: 15:00 Medical Screening Exam initiated sb4 16:49 Data reviewed: vital signs, nurses notes, lab test result(s), radiologic studies, and sb4 as a result, I will discharge patient. Counseling: I had a detailed discussion with the patient and/or guardian regarding the historical points, exam findings, and any diagnostic results supporting the discharge/admit diagnosis, lab results, radiology results, to return to the emergency department if symptoms worsen or persist or if there are any questions or concerns that arise at home. 04/05 15:18 Order name: SARS RAPID; Complete Time: 16:01 sb4 04/05 15:18 Order name: Flu; Complete Time: 16:10 sb4 04/05 15:18 Order name: BMP; Complete Time: 16:01 sb4 04/05 15:18 Order name: CBC with Diff; Complete Time: 15:43 sb4 04/05 15:18 Order name: NT PRO-BNP; Complete Time: 16:01 sb4 04/05 15:18 Order name: Troponin HS; Complete Time: 16:01 sb4 04/05 15:18 Order name: Chest Pa And Lat (2 Views) XRAY; Complete Time: 16:44 sb4 04/05 15:18 Order name: IV Saline Lock; Complete Time: 15:43 sb4 Administered Medications: 15:48 Drug: Tussionex Pennkinetic ER PO Suspension 5 ml PO once Route: PO; ap3 17:04 Follow up: Response: No adverse reaction aa5 15:48 Drug: Acetaminophen PO 1000 mg PO once Route: PO; ap3 17:04 Follow up: Response: No adverse reaction aa5 15:48 Drug: Ondansetron IVP 4 mg IVP once; over 2 minutes Route: IVP; Site: left forearm; ap3 16:00 Follow up: Response: No adverse reaction aa5 16:48 Not Given (Patient Refused): [id number] mg IVP once sb4 17:04 Drug: Decadron - Dexamethasone IVP 10 mg IVP once Route: IVP; Site: left forearm; aa5 17:23 Follow up: Response: No adverse reaction aa5 17:14 Drug: Ketorolac IVP 15 mg IVP once Route: IVP; Site: left forearm; aa5 17:23 Follow up: Response: No adverse reaction aa5 Disposition Summary: 04/05/24 16:49 Discharge Ordered Notes: Location: Home sb4 Problem: new sb4 Symptoms: have improved sb4 Condition: Stable sb4 Diagnosis - Acute upper respiratory infection, unspecified sb4 Followup: sb4 - With: Emergency Department - When: As needed - Reason: Trouble breathing, Worsening of condition Discharge Instructions: - Discharge Summary Sheet sb4 - Upper Respiratory Infection, Adult, [id number] sb4 Forms: - Antibiotic Education sb4 - Patient Portal Instructions sb4 - Leadership Thank You Letter sb4 Prescriptions: - azithromycin 250 mg Oral tablet - take 1 dose pack ORAL route as directed on dose pack For 250 mg dose pack: take sb4 500 mg today (day 1), then 250 mg for 4 days (days 2-5); 1 Pack; Refills: 0, Product Selection Permitted Signatures: Dispatcher [employer] Eleanor Knutson RN RN Anabell Sewell RN RN eun5 Angeli Mahoney RN RN ap3 Alicia Schafer, PA-C PA-C sb4 Corrections: (The following items were deleted from the chart) 15:18 15:18 Chest Pa And Lat (2 Views)+[email or web address] ordered. EDMS EDMS
[2024-04-05] MEDS ORDERED: dexAMETHasone 10 MG/ML VIAL ONE (16:54)
[2024-04-05 19:53] VITALS: TEMP 100.1
[2024-04-05 19:59] VITALS: BP 134/62; O2SAT 96
== END 2024-04-05 17:24 | disposition home or self-care (01) ==
LOC: ER 14:49
DX: J06.9 Acute upper respiratory infection, unspecified (principal); J44.9 Chronic obstructive pulmonary disease, unspecified; I10 Essential (primary) hypertension; Z11.52 Encounter for screening for COVID-19; Z85.118 Personal history of other malignant neoplasm of bronchus and lung
CPT/HCPCS: 85025; 80048; 36415; 84484; 83880; 87804 ×2; 71046; 96375; 96374; 99284; 87811; J1100; J2405

== ENCOUNTER 2024-05-21 10:21 | Emergency (ER) | payer OTHER, MEDICARE ==
--- OUTSIDE RECORDS SUMMARY | 2024-05-21 10:25 | XMS REPORT | Clinical Summary ---
Author Name Unknown Organization [facility] [place] Address [address] [place] [address] Care Team Providers Care Web Marketing Manager Name Role Phone Sheba Velez Unavailable Clay Ahumada MD Unavailable [phone] Sudeep Crouch MD Primary Care Provider Guanaco Henderson MD Unavailable [phone] Keaton Rodriguez MD Unavailable [phone] Kaylie Mota MD Unavailable [phone] Seth Fernandez MD Unavailable [phone] Mauri Barr MD Unavailable Allergies Active Allergy Reactions Criticality Noted Date Comments Clindamycin 09/19/2017 Other reaction(s): Itching/Hives/Rash Other reaction(s): Itching/Hives/Rash Medications * This document contains information received from the source organization and may not represent a complete record from that organization. metoprolol tartrate (LOPRESSOR) 50 mg tablet Take 1 tablet (50 mg) by mouth twice daily. 08/02/19 22 Active senna-docusat e (SENOKOT-S) 8.6 mg-50 mg tabletIndicat ions:Adenocar cinoma, NOS of upper lobe, lung <Left> Take 2 tablets by mouth 2 (two) times a day as needed for constipation. 20 tablet 2 11:03 AM MAMMALOGY TEACHER 05/29/20 22 Active albuterol (PROVENTIL,VE NTOLIN) 2.5 mg/3 mL (0.083%) nebulizer solution Inhale 3 mL (2.5 mg) by nebulization twice daily. Patient has been using 3-4 times a day Active ondansetron (ZOFRAN) 8 mg tablet TAKE 1 TABLET BY MOUTH EVERY 8 HOURS NEEDED FORNAUSEA AND VOMITING 10/05/19 23 Active budesonide-fo rmoterol (SYMBICORT) 160-4.5 mcg/actuation inhaler Inhale 2 puffs by mouth. 12/09/19 23 Active gabapentin (NEURONTIN) 300 mg capsuleIndica tions:Postope rative pain TAKE 1 CAPSULE(300 MG) BY MOUTH THREE TIMES DAILY 90 capsule 05/08/20 23 Active Additional Information Patient not taking.Reason: No longer taking, Informant: Self, Reported on 12/17/2023 Eliquis 2.5 mg tabletIndicat ions:Cerebral venous sinus thrombosis TAKE 1 TABLET(2.5 MG) BY MOUTH EVERY 12 HOURS 60 tablet 6 11/13/19 24 Active esomeprazole (NexIUM) 40 MG capsule Take 1 capsule (40 mg) by mouth every morning before breakfast. 024 Discontinued folic acid (FOLVITE) 400 mcg tabletIndicat ions:Adenocar cinoma, NOS of upper lobe, lung <Left> Take 1 tablet (400 mcg) by mouth daily. 30 tablet 2 02/25/20 22 024 Discontinued senna (SENOKOT) 8.6 mg tablet Take 1 tablet by mouth every other day. 024 Discontinued pantoprazole (PROTONIX) 40 mg EC tablet TAKE 1 TABLET BY MOUTH DAILY 10/05/19 23 024 Discontinued apixaban (Eliquis) 2.5 mg tabletIndicat ions:Cerebral venous sinus thrombosis Take 1 tablet (2.5 mg) by mouth every 12 (twelve) hours. 60 tablet 6 11/09/19 23 024 Discontinued alendronate (FOSAMAX) 70 mg tablet TAKE 1 TABLET BY MOUTH ONCE WEEKLY ON AN EMPTY STOMACH BEFORE BREAKFAST. REMAIN UPRIGHT FOR 30 MINUTES AND TAKE WITH 8OZ OF WATER 10/05/19 024 Discontinued apixaban (Eliquis) 2.5 mg tabletIndicat ions:Cerebral venous sinus thrombosis Take 1 tablet (2.5 mg) by mouth every 12 (twelve) hours for 360 days. 180 tablet 3 02/13/20 23 024 Discontinued(D uplicate order) ondansetron (ZOFRAN) 8 mg tabletIndicat ions:Adenocar cinoma, NOS of upper lobe, lung <Left> Take 1 tablet (8 mg) by mouth every 8 (eight) hours as needed for nausea or vomiting for up to 30 days. 90 tablet 12/17/19 24 024 Active Problems Problem Noted Date Diagnosed Date Postoperative pain 06/30/2022 Assessment & Plan (06/30/2022 2:08 PM MAMMALOGY TEACHER): After assessment her symptoms are indicative of thoracic nerve pain. I have refilled her gabapentin prescription and advised her to start with 3 times a day again and then wean off per the typical protocol we previously ordered. Sent to her local [facility] pharmacy. Constipation 05/09/2022 Assessment & Plan (05/09/2022 3:04 PM MAMMALOGY TEACHER): She did suffer some severe constipation that [...] for assistance. Antineoplastic chemotherapy induced anemia 05/09 Assessment & Plan (05/09/2022 3:05 PM MAMMALOGY TEACHER): Hemoglobin hematocrit 10.1/31.3 respectively. We will monitor this during her preop labs before surgery. After surgery if she needs a blood transfusion we will of course treat her if needed. Abnormal weight loss 05/09/2022 Assessment & Plan (05/09/2022 3:11 PM MAMMALOGY TEACHER): She normally weighs about 115 pounds. She [...] I have put in a referral for cryptography teacher to give her a call to assist her. Cerebral thrombosis 01/24/2022 Assessment & Plan (05/09/2022 3:03 PM MAMMALOGY TEACHER): She was found to have a cerebral [...] Signed by Josephine Modi NP on 05/31/2022 Assessment & Plan (06/30/2022 2:10 PM MAMMALOGY TEACHER): Ms. Jennings is a 76-year-old female with [...] pounds. She declined need to see our cryptography teacher as she has resources from her from her previous visit. I mentioned to her we will see her in 3 to [address] chest and most likely TMO will follow along. Assessment & Plan (05/09/2022 3:02 PM MAMMALOGY TEACHER): Ms. Jennings is a 76-year-old female diagnosed with stage IIb left upper lobe adenocarcinoma who is just completed 3 cycles of neoadjuvant chemotherapy and immunotherapy. 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 She lost a little weight about 10 pounds during treatment but she is very active she still was working she feels okay her constipation is resolved and she feels like she could undergo surgery. I encouraged her to walk 30 minutes a day and to definitely improve her nutrition we will refer her to nutrition to help her with protein intake and different strategies to help maintain or gained a few pounds prior to surgery. The patient was seen and discussed with Dr. Jim Hernadez who formulated the plan of care. The patient has been consented for left robotic left upper lobectomy May 25, 2022. The patient is aware of risks such as pain, infection, bleeding, etc and benefits and has signed consents. Brianne Jennings received pre operative teaching from the [facility] nurse. Post operative follow up and chest xray will be approximately 3-4 weeks after surgery. Assessment & Plan (12/28/2021 10:10 AM CDT): Ms. Jennings is a 76-year-old female with stage IIB left upper lobe adenocarcinoma with a satellite FDG avid nodule on the same lobe. She has completed PET scan and EBUS as well. Dr. Jim Hernadez provided a detailed explanation of her different treatment options but ultimately recommended neoadjuvant therapy in the form of a clinical trial with targeted therapy or chemoimmunotherapy followed by surgery with left upper lobectomy. She is seeing thoracic medical oncology today and we will see her after treatment is completed. Chronic obstructive pulmonary disease 09/20/2017 Coronary arteriosclerosis 09/20/2017 Gastroesophageal reflux disease 09/20/2017 Hypertensive disorder 09/20/2017 Tobacco user 09/20/2017 Shortness of breath 09/20/2017 Encounters Date Type Department Care Team Description 03/28/2024 Telephone Thoracic Center - Medical Oncology [address] [place] [address], 9th [place] [address] Sofy Ambrose PA 03/27/2024 Travel 03/04/2024 11:00 AM CDT Telemedicine [facility] [place] - Medical Oncology [address] [place] [address], 9th [place] [address] Sudeep Crouch MD Adenocarcinoma, NOS of upper lobe, lung <Left> (Primary Dx) 03/04/2024 Orders Only Thor[facility] [place] - Medical Oncology [address] [place] [address], 9th [place] [address] Sofy Ambrose PA Adenocarcinoma, NOS of upper lobe, lung <Left> (Primary Dx) 03/03/2024 11:15 AM CDT Ancillary Procedure [address] [address] Sofy Ambrose PA Adenocarcinoma, NOS of upper lobe, lung <Left> 03/03/2024 8:40 AM CDT Ancillary Procedure [address] [address] Sofy Ambrose PA Adenocarcinoma, NOS of upper lobe, lung <Left> 03/03/2024 [facility] Oncology [address] [place] [address], 9th [place] [address] Lucia Machado MA 03/03/2024 Travel 12/17/2023 10:15 AM CDT Telemedicine Internal Medicine Center - Hematology [address] [facility], 6th [place] [address] Keaton Rodriguez MD Adenocarcinoma, NOS of upper lobe, lung <Left> 11/27/2023 10:00 AM CDT Telemedicine Thor[facility] [place] - Medical Oncology [address] [place] [address], 9th [place] [address] Sudeep Crouch MD Adenocarcinoma, NOS of upper lobe, lung <Left> (Primary Dx) 11/27/[address] Imaging [address] [facility], 7th [place] [address] Joanna Landon MD 11/27/2023 Orders Only Thoracic Center - Medical Oncology [address] [place] [address], 9th [place] [address] Sofy Ambrose PA Adenocarcinoma, NOS of upper lobe, lung <Left> (Primary Dx) 11/26/2023 9:30 AM CDT Ancillary Procedure [address] [address] Sofy Ambrose PA Adenocarcinoma, NOS of upper lobe, lung <Left> 11/26/2023 Travel 11/13/2023 [facility] - H[facility]ology [address] [place] [address], 6th [place] [address] Mona Reid APRN Cerebral venous sinus thrombosis 08/28/2023 10:00 AM CDT Telemedicine Thoracic [facility] - Medical Oncology [address] [place] [address], 9th [place] [address] Sudeep Crouch MD Adenocarcinoma, NOS of upper lobe, lung <Left> (Primary Dx) 08/23/2023 8:15 AM MAMMALOGY TEACHER Ancillary Procedure MD Ramírez E[address] [address] Sofy Ambrose PA Adenocarcinoma, NOS of upper lobe, lung <Left> 08/23/2023 Travel 08/13/2023 Refill [facility] - Medical Oncology [address] [place] [address], 9th [place] [address] Cyndy Anglin RN Adenocarcinoma, NOS of upper lobe, lung <Left> 06/07/2023 [facility] [address] [place] [address] dg, 4th [place] [address] Reynaldo Boone MD Postoperative pain 05/29/2023 8:20 AM MAMMALOGY TEACHER Telemedicine Thoracic [place] - Medical Oncology [address] [place] [address] Main dg, 9th [place] [address] Sudeep Crouch MD Adenocarcinoma, NOS of upper lobe, lung <Left> 05/28/2023 [facility] [place] - Medical Oncology [address] [place] [address] Main [facility], 9th [place] [address] Sudeep Crouch MD 05/25/2023 7:35 AM MAMMALOGY TEACHER Ancillary Procedure [address] [address] Sofy Ambrose PA Adenocarcinoma, NOS of upper lobe, lung <Left> 05/25/2023 Travel after 05/22/2023 Immunizations Name Administration Dates Next Due Pneumococcal Polysaccharide PPSV23 09/20/2017 Surgical History Surgery Date Site/Laterality Comments TUMOR EXCISION Right right shoulder "lipoma" CORONARY ANGIOPLASTY 06/18/2016 - 06/17/2017 no intervention CATARACT EXTRACTION BILATERAL W/ ANTERIOR VITRECTOMY Bilateral COLONOSCOPY 06/18/2017 - 06/17/2018 3 precancerous polpys removed DILATION AND CURETTAGE OF UTERUS [facility] EBUS GUIDED SAMPL 3/> NODE STATION/STRUX 12/21/2021 N/A Procedure: BRONCHOSCOPY WITH EBUS 3 OR MORE NODES; Surgeon: Kaylie Mota MD; Location: MAIN PULM PROC; Service: PULMONARY MA THORACOSCOPY W/LOBECTOMY SINGLE LOBE 05/25/2022 Left Procedure: ROBOTIC (KIMBERLEE) (SI) LOBECTOMY; Surgeon: Jim Hernadez MD; Location: MAIN OR; Service: THRCV - THORACIC SURGERY Medical devices from this surgery are in the Medical Devices section. MA THORCOSCPY W/MEDIASTINL & REGIONL LYMPHDENECTOMY 05/25/2022 Left Procedure: ROBOTIC (KIMBERLEE) (SI) MEDIASTINAL LYMPHADENECTOMY; Surgeon: Jim Hernadez MD; [...] degree you have received? 10th grade 11/29/2021 Comments No Sex and Gender Information Value Date Recorded Sex Assigned at Not on file Legal Sex Female 9:29 AM CDT Gender Identity Not on file Sexual Orientation Not on file Occupation Industry Job Start Date Job End Date [place] Not on file Not on file Not [...] st Contact Info) Description 06/23/2024 11:15 AM MAMMALOGY TEACHER Telemedicine Internal Medicine Center - Hematology [address] [facility], 6th [place] [address] Keaton Rodriguez MD [address] [place] [address] [email or web address] 06/30/2024 11:30 AM MAMMALOGY TEACHER Lab [facility] [address] [facility] [address] [place] [address] Sofy Ambrose PA [address] [place] [address] [email or web address] 06/30/2024 11:45 AM MAMMALOGY TEACHER Ancillary Procedure [facility] [address] [facility] [address] [place] [address] Sofy Ambrose PA [address] [place] [address] [email or web address] 07/01/2024 10:00 AM MAMMALOGY TEACHER Telemedicine Thoracic Center - Medical Oncology [facility] Main Bldg, 9th [place] [address] Sudeep Crouch MD [address] [place] [address] [email or web address] Health Maintenance Due Date Last Done Comments Pneumococcal Vaccine: 65+ Years (2 of 2 - PCV) 019 09/20/2017 COVID-19 Vaccine ( season) 2024 Influenza Vaccine (#1) 2024 Medical Devices Implanted Type Area Life Cycle Assessment Analyst Device Identifier Shelf Expiration Date Model / Serial / Lot Cath Thoracic Str 28fr - [id number] Implanted:Qty: 1 on 05/25/2022 by Jim Hernadez MD at [facility] LDA Left: Chest [employer] 01/06/2025 [id number] / / [id number] Procedures Procedure Name Priority Date/Time Associated Diagnosis [...] W CONTRAST Routine 08/23/2023 8 :46 AM MAMMALOGY TEACHER Adenocarcinoma, NOS of upper lobe, lung <Left> .CBC Routine 08/23/2023 7:45 AM MAMMALOGY TEACHER Adenocarcinoma, NOS of upper lobe, lung <Left> FREE THYROXINE Routine 08/23/2023 7:45 AM MAMMALOGY TEACHER Adenocarcinoma, NOS of upper lobe, lung <Left> THYROID STIMULATING HORMONE Routine 08/23/2023 7:45 AM MAMMALOGY TEACHER Adenocarcinoma, NOS of upper lobe, lung <Left> COMPREHENSIVE METABOLIC PANEL Routine 08/23/2023 7:45 AM MAMMALOGY TEACHER Adenocarcinoma, NOS of upper lobe, lung <Left> COMPLETE BLOOD COUNT W/ DIFFERENTIAL Routine 08/23/2023 7:45 AM MAMMALOGY TEACHER Adenocarcinoma, NOS of upper lobe, lung <Left> CT CHEST W CONTRAST Routine 05/25/2023 9 :17 AM MAMMALOGY TEACHER Adenocarcinoma, NOS of upper lobe, lung <Left> .CBC Routine 05/25/2023 7:26 AM MAMMALOGY TEACHER Adenocarcinoma, NOS of upper lobe, lung <Left> PHOSPHORUS LEVEL Routine 05/25/2023 7:26 AM MAMMALOGY TEACHER Adenocarcinoma, NOS of upper lobe, lung <Left> MAGNESIUM LEVEL Routine 05/25/2023 7:26 AM MAMMALOGY TEACHER Adenocarcinoma, NOS of upper lobe, lung <Left> FREE THYROXINE Routine 05/25/2023 7:26 AM MAMMALOGY TEACHER Adenocarcinoma, NOS of upper lobe, lung <Left> THYROID STIMULATING HORMONE Routine 05/25/2023 7:26 AM MAMMALOGY TEACHER Adenocarcinoma, NOS of upper lobe, lung <Left> COMPLETE BLOOD COUNT W/ DIFFERENTIAL Routine 05/25/2023 7:26 AM MAMMALOGY TEACHER Adenocarcinoma, NOS of upper lobe, lung <Left> COMPREHENSIVE METABOLIC PANEL Routine 05/25/2023 7:26 AM MAMMALOGY TEACHER Adenocarcinoma, NOS of upper lobe, lung <Left> after 05/22/2023 Results * Free T3 (03/27/2024 11:02 AM CDT) Free T3 2.7 2.0 - 4.4 pg/mL 03/27/2024 11:53 AM CDT [facility] Blood Peripheral blood specimen / Unknown Venipuncture / Unknown 03/27/2024 11:02 AM CDT 03/27/2024 11:02 AM CDT Sofy [facility] BLOOD ORDERABLES Final Result [address] [address] * TSH (03/27/2024 11:02 AM CDT) Only the most recent of5 resultswithin the time period is included. Thyroid Stimulating Hormone 0.90 0.27 - 4.20 mcunit/mL 03/27/2024 12:52 PM CDT [facility] Blood Peripheral blood specimen / Unknown Venipuncture / Unknown 03/27/2024 11:02 AM CDT 03/27/2024 11:02 AM CDT [facility] BLOOD ORDERABLES Final Result [address] [address] * Free T4 (03/27/2024 11:02 AM CDT) Only the most recent of5 resultswithin the time period is included. T4 (Thyroxine) Free 1.02 0.92 - 1.68 ng/dL 03/27/2024 11:53 AM CDT [facility] Blood Peripheral blood specimen / Unknown Venipuncture / Unknown 03/27/2024 11:02 AM CDT 03/27/2024 11:02 AM CDT us Sofy [facility] BLOOD ORDERABLES Final Result [facility] [place] [facility] [address] [facility], [facility] [address] [place] [address] * MRI Brain with and without Contrast [...] abnormality. The vascular flow voids at the yocha dehe of Dave are maintained. Re-noted is a [...] abnormality. The vascular flow voids at the yocha dehe of Dave are maintained. Re-noted is a nonocclusive filling defect in the right transverse sinus,suspicious for intraluminal thrombus. It has remained stable since 12/2021.It is better seen in CTV on 01/04/2022. A 0.7 cm enhancing right frontal parafalcine nodule is annotated on [email or web address] image 82, unchanged since 12/2021. It likely [...] right transversesinus. ACTIONABLE ITEMS/RECOMMENDATIONS: None. Sofy [facility] IM MRI ORDERABLES Final Re sult * CT Chest with Contrast (03/03/2024 9:59 [...] are unexpected and potentially actionable. Sofy INMAN IMTerry CT ORDERABLES Final Res ult * (ABNORMAL) .CBC (03/03/2024 8:05 AM CDT) Only the most recent of4 resultswithin the time period is included. White Blood Cell 7.2 4.1 - 10.5 K/uL 03/03/2024 8:14 AM [facility] Red Blood Cell 3.99 3.99 - 5.46 M/uL 03/03/2024 8:14 AM [facility] Hemoglobin 12.3 12.2 - 15.3 g/dL 03/03/2024 8:14 AM [facility] Hematocrit 38.6 36.4 - 46.8 % 03/03/2024 8:14 AM [facility] Mean Cell Volume 97 82 - 99 fL 03/03/2024 8:14 AM [facility] Mean Cell Hemoglobin 30.8 26.6 - 33.2 pg 03/03/2024 8:14 AM [facility] Mean Cell Hemoglobin Concentration 31.9 31.1 - 35.2 g/dL 03/03/2024 8:14 AM [facility] RDW-SD 50.3(H) 37.5 - 49.7 fL 03/03/2024 8:14 AM [facility] Red Cell Diameter Width 14.1 11.6 - 15.5 % 03/03/2024 8:14 AM [facility] Platelet 238 160 - 397 K/uL 03/03/2024 8:14 AM [facility] Mean Platelet Volume 8.4(L) 9.1 - 12.6 fL 03/03/2024 8:14 AM [facility] Neutrophil % 68.4 43.2 - 72.7 % 03/03/2024 8:14 AM [facility] Lymphocyte % 18.5 16.8 - 46.2 % 03/03/2024 8:14 AM [facility] Monocyte % 7.6 5.1 - 12.5 % 03/03/2024 8:14 AM [facility] Eosinophil % 4.5 0.4 - 6.3 % 03/03/2024 8:14 AM [facility] Basophil % 0.7 0.2 - 1.4 % 03/03/2024 8:14 AM [facility] IGRE % 0.3 0.1 - 1.5 % 03/03/2024 8:14 AM [facility] Comment:The IGRE% includes M etamyelocytes, Myelocytes and Promyelocytes. Neutrophil Abs 4.92 1.95 - 7.25 K/uL 03/03/2024 8:14 AM [facility] Lymphocyte Abs 1.33 1.01 - 3.24 K/uL 03/03/2024 8:14 AM [facility] Monocyte Abs 0.55 0.24 - 0.85 K/uL 03/03/2024 8:14 AM [facility] Eosinophil Abs 0.32 0.02 - 0.50 K/uL 03/03/2024 8:14 AM [facility] Basophil Abs 0.05 0.02 - 0.09 K/uL 03/03/2024 8:14 AM [facility] IG Abs 0.02 0.01 - 0.12 K/uL 03/03/2024 8:14 AM [facility] Blood Peripheral blood specimen / Unknown Venipuncture / Unknown 03/03/2024 8:05 AM CDT 03/03/2024 8:06 AM CDT us [facility] BLOOD ORDERABLES Final Result Performing Organization Address City/State/[facility] Co de Phone Number [facility] [address] [facility], [facility] [address] [place] [address] * (ABNORMAL) Comprehensive Metabolic Panel (03/03/2024 8:05 AM CDT) Only the most recent of4 resultswithin the time period is included. Bilirubin Total 0.3 0.0 - 1.2 mg/dL 03/03/2024 8:43 AM [facility] Comment:Indocyanine Green (I CG) may cause falsely elevated bilirubin results. Total and direct bilirubin must not be measured from samples containing indocyanine green. False elevation of total bilirubin can be seen in patients with IgG concentrations above 28 g/L. eGFR 48(L) >=60 mL/min/1. 73 sq. m 03/03/2024 8:43 AM [facility] Comment: The eGFRcr is calculated with the [...] 6.4 - 8.3 gm/dL 03/03/2024 8:43 AM [facility] Calcium Level Total 9.8 8.2 - 10.2 mg/dL 03/03/2024 8:43 AM [facility] Alkaline Phosphatase 102 35 - 104 U/L 03/03/2024 8:43 AM [facility] Albumin Level 4.2 3.5 - 5.2 gm/dL 03/03/2024 8:43 AM [facility] AST 18 <=32 U/L 03/03/2024 8:43 AM [facility] ALT 10 <=33 U/L 03/03/2024 8:43 AM [facility] Sodium Level 142 136 - 145 mmol/L 03/03/2024 8:43 AM [facility] Potassium Level 4.6(H) 3.4 - 4.5 mmol/L 03/03/2024 8:43 AM [facility] Chloride 106 98 - 107 mmol/L 03/03/2024 8:43 AM [facility] CO2 25 22 - 29 mmol/L 03/03/2024 8:43 AM [facility] Anion Gap 11 4 - 14 mmol/L 03/03/2024 8:43 AM [facility] Creatinine 1.16(H) 0.51 - 0.95 mg/dL 03/03/2024 8:43 AM T [facility] BUN 17 6 - 23 mg/dL 03/03/2024 8:43 AM [facility] Glucose Level 90 70 - 99 mg/dL 03/03/2024 8:43 AM [facility] Comment: Effective 01/12/16, the glucose reference intervals have been updated based on [place] [employer] guidelines (Standards of Medical Care [...] 8:06 AM CDT [facility] BLOOD ORDERABLES Final Result [address] [address] * Phosphorus Level (05/25/2023 7:26 AM MAMMALOGY TEACHER) Phosphorus Level 2.9 2.5 - 4.5 mg/dL 05/25/2023 8:14 AM [facility] Blood Venipuncture / Unknown 05/25/2023 7:26 AM MAMMALOGY TEACHER 05/25/2023 7:27 AM MAMMALOGY TEACHER [facility] BLOOD ORDERABLES Final Result [address], [address] [address] * Magnesium Level (05/25/2023 7:26 AM MAMMALOGY TEACHER) Magnesium Level 2.0 1.6 - 2.6 mg/dL 05/25/2023 8:14 AM MAMMALOGY TEACHER JORGE FITZGERALD Blood Venipuncture / Unknown 05/25/2023 7:26 AM MAMMALOGY TEACHER 05/25/2023 7:27 AM MAMMALOGY TEACHER [facility] BLOOD ORDERABLES Final Result JORGE FITZGERALD [facility] [place] [facility] [address] [facility], [facility] [address] [place] [address] after 05/22/2023 Insurance MEDICARE PART A AND B [facility] ONLY MEDICARE PART A AND B [facility]SECOND[facility] ONLY Advance Directives * Full Code (Latest Code Status on File) Date Activated Date Inactivated Comments 05/25/2022 8:46 PM 05/29/2022 2:30 PM Care Teams Web Marketing Manager Relationship Specialty Start Date End Date Rosie Sheba [address] [place] [address] PCP - External Primary Care Provider Nurse Practitioner 11/17/21 Clay Ahumada MD [address] [place] [phone] PCP - External Follow Up A Pulmonary Medicine 11/17/21 Sudeep Crouch MD [address] [place] [phone] [email or web address] - General Thoracic Medicine 12/27/21 Guanaco Henderson MD [address] [place] [phone] Cardiology 05/09/22 Keaton Rodriguez MD [address] [place] [phone] [email or web address] Consulting Physician Hematology and Oncology 03/27/22 Kaylie Mota MD [address] [place] [phone] [email or web address] [email or web address] Physician Pulmonary Medicine 12/20/21 Seth Fernandez MD [address] [place] [phone] [email or web address] Consulting Physician Gastroenterology, Hepatology and Nutrition 09/12/22 Mauri Barr MD [address] [place] [phone] [email or web address] Consulting Physician Pain Management 08/04/22
[2024-05-21] MEDS ORDERED: NA CHLORIDE 0.9% 1,000 ML ONE (11:03)
--- NOTE | 2024-05-21 11:13 | RAD REPORT ---
EXAMINATION: ONE VIEW CHEST XR CLINICAL INDICATION: Female, 78 years old.,COUGH TECHNIQUE: Frontal chest projection is submitted. Examination is limited by patient positioning and t echnique. COMPARISON: 04/05/2024 FINDINGS: The lungs are well inflated and clear. Left diaphragm eventration again seen. No pneumothorax or siza ble effusion. The heart is normal in size. Mediastinal contours are unremarkable. IMPRESSION: No acute intrathoracic abnormalities.
[2024-05-21 11:26] LABS: Absolute Eosinophils 0.1 K/uL (0-0.5); Absolute Lymphocytes (CBC) 0.5 K/uL (0.7-4.9); Absolute Monocytes 0.5 K/uL (0.1-1.3); Absolute Neutrophil 3.4 K/uL (1.8-8.0); Basophils % 0.4 % (0-1.3); Eosinophils % 1.3 % (0-4.4); Hematocrit 36.1 % (36.0-45.0); Hemoglobin 11.6 g/dL (12.0-15.0); Lymphocytes % 11.1 % (15.3-44.8); MCH 30.6 pg (27.0-35.0); MCHC 32.3 g/dL (32.0-36.0); MCV 94.8 fL (80-100); MPV 6.7 fL (7.6-11.3); Neutrophils % 76.2 % (41.7-73.7); Platelets 187 thou/uL (152-406); RBC Red Blood Cell Count 3.81 M/uL (3.86-4.86); Red Cell Distribution Width 14.8 % (12.1-15.2)
[2024-05-21 11:28] LABS: Protime INR 1.54
[2024-05-21] MEDS ORDERED: METHYLPREDNISOLONE 125 MG INJ ONE (11:41)
[2024-05-21] MEDS ORDERED: IPRATROPIUM BROM 0.5MG/2.5ML ONE (11:41)
[2024-05-21] MEDS ORDERED: CEFTRIAXONE 1000 MG/VIAL ONE (11:41)
[2024-05-21] MEDS ORDERED: AZITHROMYCIN 250 MG TAB ONE (11:42)
[2024-05-21] MEDS ORDERED: LEVALBUTEROL 1.25 MG/3 ML NEB ONE (11:42)
[2024-05-21] MEDS ORDERED: NA CHLORIDE 0.9% 50 ML ONE (11:42)
[2024-05-21] MEDS ORDERED: ACETAMINOPHEN 325 MG TABLET ONE (11:42)
[2024-05-21 11:45] LABS: SARS-CoV-2 Antigen CONTROL BLUE LINE VIS/BG OK; SARS-CoV-2 Antigen Rapid Res Negative (Negative)
[2024-05-21 11:45] LABS: Anion Gap 10.7 mEq/L (5.0-15.0); BUN Blood Urea Nitrogen 24 mg/dL (7-18); Bicarbonate 25 mEq/L (21-32); Glomerular Filtration Rate 37 ml/min (=/>90); Glucose Level 90 mg/dL (74-106); Potassium 3.7 mEq/L (3.5-5.1); Sodium Level 137 mEq/L (136-145)
[2024-05-21 11:46] LABS: ALT/SGPT 21 U/L (13-56); AST/SGOT 27 U/L (15-37); Albumin 3.3 g/dL (3.4-5.0); Albumin/Globulin Ratio 0.9 (1.1-1.8); Alkaline Phosphatase 78 U/L (45-117); Bilirubin Direct < 0.2 mg/dL (0-0.2); Bilirubin Indirect, Calculated 0.2 mg/dL (0.2-0.8); Bilirubin Total 0.4 mg/dL (0.2-1.0); Globulin 3.6 g/dL (2.3-3.5); Magnesium 2.1; NT PRO-BNP 286 pg/mL (<450); Protein, Total 6.9 g/dL (6.4-8.2); Troponin High Sensitivity 9.3 (<58.9)
--- NOTE | 2024-05-21 11:52 | ER ---
Nurse's Notes [facility] Name: Brianne Jennings Age: 78 yrs Sex: Female : 1945 Arrival Date: 05/21/2024 Time: 10:21 Bed 20 Private MD: Diagnosis: Acute upper respiratory infection, unspecified;Fever, unspecified;COPD/ Chronic obstructive pulmonary disease with (acute) exacerbation;Influenza due to identified novel influenza A virus with other respiratory manifestations Presentation: 05/21 10:31 Chief complaint: Patient states: she has been having cold symptoms and a low grade ap3 fever for approx 3 days. patient also complains of generalized body aches. Coronavirus screen: Client presents with at least one sign or symptom that may indicate coronavirus-19. Ebola Screen: No symptoms or risks identified at this time. Initial Sepsis Screen: Does the patient meet any 2 criteria? No. Patient's initial sepsis screen is negative. Does the patient have a suspected source of infection? No. Patient's initial sepsis screen is negative. Risk Assessment: Do you want to hurt yourself or someone else? Patient reports no desire to harm self or others. Onset of symptoms was May 18, 2024. 10:31 Method Of Arrival: Ambulatory ap3 10:31 Acuity: LYNNE 3 ap3 Triage Assessment: 10:33 General: Appears in no apparent distress. Behavior is calm, cooperative, appropriate ap3 for age. Pain: Complains of pain in generalzied body aches. Neuro: Level of Consciousness is awake, alert, obeys commands, Oriented to person, place, time, situation, Appropriate for age. Cardiovascular: Patient's skin is warm and dry. Respiratory: Reports cough that is productive, Airway is patent Respiratory effort is even, unlabored, Respiratory pattern is regular, symmetrical. Historical: - Allergies: 10:32 Clindamycin; ap3 - PMHx: 10:32 acid reflux; Arthritis; COPD; Hypertension; Lung Cancer; ap3 - PSHx: 10:32 left lung lobe resection; ap3 - Immunization history:: Client reports having NOT received the Covid vaccine. Flu vaccine is not up to date. - Infectious Disease History:: Denies. - Social history:: Smoking status: Patient/guardian denies using tobacco. Screenin:34 Abuse screen: Denies threats or abuse. Nutritional screening: No deficits noted. ap3 Tuberculosis screening: No symptoms or risk factors identified. 11:15 [facility] ED Fall Risk Assessment (Adult) History of falling in the last 3 months, db including since admission No falls in past 3 months (0 pts) Confusion or Disorientation No (0 pts) Intoxicated or Sedated No (0 pts) Impaired Gait No (0 pts) Mobility Assist Device Used No (0 pt) Altered Elimination No (0 pt) Score/Fall Risk Level 0 - 2 = Low Risk Oriented to surroundings, Maintained a safe environment. Assessment: 11:15 Reassessment: Patient appears in no apparent distress at this time. Patient and/or db family updated on plan of care and expected duration. Pain level reassessed. Patient is alert, oriented x 3, equal unlabored respirations, skin warm/dry/pink. General: Appears in no apparent distress. comfortable, Behavior is calm, cooperative. Pain: Complains of pain in body aches. Neuro: Level of Consciousness is awake, alert, obeys commands, Oriented to person, place, time, situation. Respiratory: Airway is patent Respiratory effort is even, unlabored, Respiratory pattern is regular, symmetrical. 12:15 Reassessment: Patient appears in no apparent distress at this time. Patient and/or db family updated on plan of care and expected duration. Pain level reassessed. Patient is alert, oriented x 3, equal unlabored respirations, skin warm/dry/pink. Patient states feeling better. 12:26 Reassessment: DC PENDING MEDICATIONS FINISH. db Vital Signs: 10:31 BP 115 / 80; Pulse 85; Resp 17; Temp 99.9(O); Pulse Ox 100% on R/A; Weight 52.16 kg; ap3 Height 5 ft. 2 in. ; Pain 8/10; 11:30 BP 112 / 59; Pulse 74; Resp 17; Pulse Ox 96% on R/A; db 12:30 BP 113 / 62; Pulse 98; Resp 20; Pulse Ox 96% ; db 10:31 Body Mass Index 21.03 (52.16 kg, 157.48 cm) ap3 10:31 Pain Scale: Adult ap3 ED Course: 10:27 Patient arrived in ED. ra3 10:27 Koby Elmore MD is Attending Physician. leah 10:32 Triage completed. ap3 10:34 Arm band placed on left wrist. ap3 10:46 XRAY Chest (1 view) In Process Unspecified. EDMS 10:53 Julia Peralta, RN is Primary Nurse. db 10:55 EKG done, by ED staff, reviewed by Koby Elmore MD. bc6 11:00 Initial lab(s) drawn, by ca, sent to lab. First set of blood cultures drawn by ca, bc6 COVID swab sent to lab. Flu and/or RSV swab sent to lab. 11:15 Patient has correct armband on for positive identification. Bed in low position. Call db light in reach. Side rails up X 1. Client placed on continuous cardiac and pulse oximetry monitoring. NIBP monitoring applied. advanced practice nurse psychotherapist on. Pulse ox on. NIBP on. Warm blanket given. Pillow given. 11:15 Second set of blood cultures drawn by ca. bc6 11:23 Lactate w/ 2H reflex if indic. Sent. bc6 11:23 SARS RAPID Sent. bc6 11:23 Flu Sent. bc6 11:23 Blood Culture Adult (2) Sent. bc6 11:23 Basic Metabolic Panel Sent. bc6 11:23 CBC with Diff Sent. bc6 11:23 LFT's Sent. bc6 11:23 Magnesium Sent. bc6 11:23 NT PRO-BNP Sent. bc6 11:23 PT-INR Sent. bc6 11:23 Troponin HS Sent. bc6 11:24 Inserted saline lock: 20 gauge in left antecubital area, using aseptic technique. Blood bc6 collected. Flushed with 10 mL NS. 11:51 Estuardo Parham MD is Referral Physician. [facility] 13:12 Provided Education on: DISCHARGE AND FOLLOWUP. db 13:12 No provider procedures requiring assistance completed. IV discontinued, intact, db bleeding controlled, No redness/swelling at site. Administered Medications: 11:26 Drug: NS 0.9% IV 1000 ml IV at 1 bolus Per protocol; to be given as a bolus over 60 db minutes Route: IV; Rate: 1 bolus; Site: left antecubital; 12:30 Follow up: Response: No adverse reaction; IV Status: Completed infusion; IV Intake: db 1000ml 11:35 Drug: AZITHromycin PO 500 mg PO once Route: PO; db 13:11 Follow up: Response: No adverse reaction db 11:35 Drug: Levalbuterol Inhalation 2.5 mg Inhalation once Route: Inhalation; db 11:40 Drug: Acetaminophen PO 650 mg PO once Route: PO; db 13:12 Follow up: Response: No adverse reaction; Pain is decreased db 11:40 Drug: MethylPrednisoLONE IVP 125 mg IVP once Route: IVP; Site: left antecubital; db 13:11 Follow up: Response: No adverse reaction db 11:45 Drug: Rocephin IV 1 grams IV at per protocol once; Given slow IV push per pharmacy db instructions Route: IV; Rate: per protocol; Site: left antecubital; 12:15 Follow up: Response: No adverse reaction; IV Status: Completed infusion; IV Intake: 50mldb 11:45 Drug: Ipratropium Inhalation Aerosol 0.5 mg Inhalation once Route: Inhalation; db 13:11 Follow up: Response: No adverse reaction db 12:16 Drug: predniSONE PO 40 mg PO once Route: PO; db 13:11 Follow up: Response: No adverse reaction db 12:16 Drug: Oseltamivir PO 75 mg PO once Route: PO; db 13:06 Follow up: Response: No adverse reaction db Medication: 11:15 VIS not applicable for this client. db Intake: 12:15 IV: 50ml; Total: 50ml. db 12:30 IV: 1000ml; Total: 1050ml. db Outcome: 11:52 Discharge ordered by . leah 13:12 Discharged to home ambulatory, with family, db 13:12 Condition: stable 13:12 Discharge instructions given to patient, Instructed on discharge instructions, follow up and referral plans. Prescriptions given X X 5 13:14 Patient left the ED. db Signatures: Dispatcher [employer] EDCT Koby Elmore MD MD cha Prokisch, Amanda RN RN ap3 Julia Peralta, RN RN Lisette Lipscomb 6 Sylvia Rand ra3
--- NOTE | 2024-05-21 11:52 | EDPHYS ---
Physician Documentation [facility] Name: Brianne Jennings Age: 78 yrs Sex: Female : 1945 Arrival Date: 05/21/2024 Time: 10:21 Bed 20 Private MD: ED Physician Koby Elmore HPI: 05/21 11:24 This 78 yrs old Female presents to ER via Ambulatory with complaints of Fever leah - x3days, Cold Symptoms. 11:24 The patient reports fever, not measured (subjective). Onset: The symptoms/episode leah began/occurred 3 day(s) ago. Modifying factors: there are no obvious modifying factors. Associated signs and symptoms: Pertinent positives: chest pain, chills, cough. Severity of symptoms: At their worst the symptoms were mild moderate in the emergency department the symptoms are unchanged. The patient has experienced similar episodes in the past, several times. Historical: - Allergies: 10:32 Clindamycin; ap3 - PMHx: 10:32 acid reflux; Arthritis; COPD; Hypertension; Lung Cancer; ap3 - PSHx: 10:32 left lung lobe resection; ap3 - Immunization history:: Client reports having NOT received the Covid vaccine. Flu vaccine is not up to date. - Infectious Disease History:: Denies. - Social history:: Smoking status: Patient/guardian denies using tobacco. ROS: 11:25 Constitutional: Negative for fever, chills, and weight loss, Eyes: Negative for injury, leah pain, redness, and discharge, ENT: Negative for injury, pain, and discharge, Neck: Negative for injury, pain, and swelling, Cardiovascular: Negative for chest pain, palpitations, and edema, Abdomen/GI: Negative for abdominal pain, nausea, vomiting, diarrhea, and constipation, Back: Negative for injury and pain, : Negative for injury, bleeding, discharge, and swelling, MS/Extremity: Negative for injury and deformity, Skin: Negative for injury, rash, and discoloration, Neuro: Negative for headache, weakness, numbness, tingling, and seizure, Psych: Negative for depression, anxiety, suicide ideation, homicidal ideation, and hallucinations, Allergy/Immunology: Negative for hives, rash, and allergies, Endocrine: Negative for neck swelling, polydipsia, polyuria, polyphagia, and marked weight changes, Hematologic/Lymphatic: Negative for swollen nodes, abnormal bleeding, and unusual bruising, 11:25 Respiratory: Positive for cough, shortness of breath, at rest. Exam: 11:25 Constitutional: This is a well developed, well nourished patient who is awake, alert, leah and in no acute distress. Head/Face: Normocephalic, atraumatic. Eyes: Pupils equal round and reactive to light, extra-ocular motions intact. Lids and lashes normal. Conjunctiva and sclera are non-icteric and not injected. Cornea within normal limits. Periorbital areas with no swelling, redness, or edema. ENT: Nares patent. No nasal discharge, no septal abnormalities noted. Tympanic membranes are normal and external auditory canals are clear. Oropharynx with no redness, swelling, or masses, exudates, or evidence of obstruction, uvula midline. Mucous membranes moist. Neck: Trachea midline, no thyromegaly or masses palpated, and no cervical lymphadenopathy. Supple, full range of motion without nuchal rigidity, or vertebral point tenderness. No Meningismus. Chest/axilla: Normal chest wall appearance and motion. Nontender with no deformity. No lesions are appreciated. Cardiovascular: Regular rate and rhythm with a normal S1 and S2. No gallops, murmurs, or rubs. Normal PMI, no JVD. No pulse deficits. Abdomen/GI: Soft, non-tender, with normal bowel sounds. No distension or tympany. No guarding or rebound. No evidence of tenderness throughout. Back: No spinal tenderness. No costovertebral tenderness. Full range of motion. Female : Normal external genitalia. Skin: Warm, dry with normal turgor. Normal color with no rashes, no lesions, and no evidence of cellulitis. MS/ Extremity: Pulses equal, no cyanosis. Neurovascular intact. Full, normal range of motion., bilateral aka Neuro: Awake and alert, GCS 15, oriented to person, place, time, and situation. Cranial nerves II-XII grossly intact. Motor strength 5/5 in all extremities. Sensory grossly intact. Cerebellar exam normal. Normal gait. Psych: Awake, alert, with orientation to person, place and time. Behavior, mood, and affect are within normal limits. 11:25 ECG was reviewed by the Attending Physician. 11:25 Respiratory: the patient does not display signs of respiratory distress, Respirations: no acute changes, Breath sounds: decreased breath sounds, that are mild, are scattered, Respiratory rate: 17 11:25 Musculoskeletal/extremity: DVT Exam: No signs of deep vein thrombosis. no pain, no swelling, no tenderness, negative Homans' sign noted on exam, no appreciated bluish discoloration, no erythema, no increased warmth, Vital Signs: 10:31 BP 115 / 80; Pulse 85; Resp 17; Temp 99.9(O); Pulse Ox 100% on R/A; Weight 52.16 kg; ap3 Height 5 ft. 2 in. ; Pain 8/10; 11:30 BP 112 / 59; Pulse 74; Resp 17; Pulse Ox 96% on R/A; db 12:30 BP 113 / 62; Pulse 98; Resp 20; Pulse Ox 96% ; db 10:31 Body Mass Index 21.03 (52.16 kg, 157.48 cm) ap3 10:31 Pain Scale: Adult ap3 MDM: 10:27 Medical Screening Exam initiated leah 11:29 Antibiotic administration: The patient is discharged and will get outpatient [facility] antibiotics, Zithromax. Differential diagnosis: viral Infection, bacterial infection, URI, pneumonia UTI. Differential Diagnosis: Obstructed Airway Bronchitis Influenza Upper Respiratory Infection Pharyngitis Viral Syndrome Pneumonia. Immunization status: Pneumococcal vaccine: within last 5 years. Influenza vaccine: within last 5 years. Data reviewed: vital signs, nurses notes, lab test result(s), EKG, radiologic studies, plain films. Consideration of Admission/Observation Escalation of care including admission/observation considered. I considered the following discharge prescriptions or medication management in the emergency department Medications were administered in the Emergency Department. See MAR. Independent interpretation of the following test(s) in the Emergency Department EKG: See my EKG interpretation above. 05/21 10:28 Order name: Basic Metabolic Panel; Complete Time: 11:51 [facility] 05/21 10:28 Order name: CBC with Diff; Complete Time: :33 [facility] 05/21 10:28 Order name: LFT's; Complete Time: :51 [facility] 05/21 10:28 Order name: Magnesium; Complete Time: 11:51 [facility] 05/21 10:28 Order name: NT PRO-BNP; Complete Time: : [facility] 05/21 10:28 Order name: PT-INR; Complete Time: 11:33 [facility] 05/21 10:28 Order name: Troponin HS; Complete Time: 11:51 [facility] 05/21 10:28 Order name: Blood Culture Adult (2) [facility] 05/21 10:28 Order name: Flu; Complete Time: 11:51 [facility] 05/21 10:28 Order name: SARS RAPID; Complete Time: 11:51 [facility] 05/21 11:14 Order name: Lactate w/ 2H reflex if indic. 05/21 10:28 Order name: XRAY Chest (1 view); Complete Time: 11:33 [facility] 05/21 10:28 Order name: EKG; Complete Time: 10:29 [facility] 05/21 10:28 Order name: Cardiac monitoring; Complete Time: 11:21 [facility] 05/21 10:28 Order name: EKG - Nurse/Tech; Complete Time: 10:55 [facility] 05/21 10:28 Order name: IV Saline Lock; Complete Time: 11:23 [facility] 05/21 10:28 Order name: Labs collected and sent; Complete Time: 11:23 [facility] 05/21 10:28 Order name: O2 Per Protocol; Complete Time: 11:21 [facility] 05/21 10:28 Order name: O2 Sat Monitoring; Complete Time: 11:21 [facility] EC:25 Rate is 79 beats/min. Rhythm is regular. QRS [place] is Normal. [place] interval is normal. QRS leah interval is normal. QT interval is normal. No Q waves. T waves are Normal. No ST changes noted. Clinical impression: NSR w/ Non-specific ST/T Changes and No evidence of ischemia. Interpreted by me. Reviewed by me. Administered Medications: 11:26 Drug: NS 0.9% IV 1000 ml IV at 1 bolus Per protocol; to be given as a bolus over 60 db minutes Route: IV; Rate: 1 bolus; Site: left antecubital; 12:30 Follow up: Response: No adverse reaction; IV Status: Completed infusion; IV Intake: db 1000ml 11:35 Drug: AZITHromycin PO 500 mg PO once Route: PO; db 13:11 Follow up: Response: No adverse reaction db 11:35 Drug: Levalbuterol Inhalation 2.5 mg Inhalation once Route: Inhalation; db 11:40 Drug: Acetaminophen PO 650 mg PO once Route: PO; db 13:12 Follow up: Response: No adverse reaction; Pain is decreased db 11:40 Drug: MethylPrednisoLONE IVP 125 mg IVP once Route: IVP; Site: left antecubital; db 13:11 Follow up: Response: No adverse reaction db 11:45 Drug: Rocephin IV 1 grams IV at per protocol once; Given slow IV push per pharmacy db instructions Route: IV; Rate: per protocol; Site: left antecubital; 12:15 Follow up: Response: No adverse reaction; IV Status: Completed infusion; IV Intake: 50mldb 11:45 Drug: Ipratropium Inhalation Aerosol 0.5 mg Inhalation once Route: Inhalation; db 13:11 Follow up: Response: No adverse reaction db 12:16 Drug: predniSONE PO 40 mg PO once Route: PO; db 13:11 Follow up: Response: No adverse reaction db 12:16 Drug: Oseltamivir PO 75 mg PO once Route: PO; db 13:06 Follow up: Response: No adverse reaction db Disposition Summary: 05/21/24 11:52 Discharge Ordered Notes: Location: Home leah Problem: new leah Symptoms: have improved leah Condition: Stable leah Diagnosis - Acute upper respiratory infection, unspecified leah - Fever, unspecified leah - COPD/ Chronic obstructive pulmonary disease with (acute) exacerbation leah - Influenza due to identified novel influenza A virus with other respiratory leah manifestations Followup: leah - With: Private Physician - When: 2 - 3 days - Reason: Recheck today's complaints, Continuance of care, Re-evaluation by your physician Followup: leah - With: Estuardo Parham MD - When: 2 - 3 days - Reason: Recheck today's complaints, Re-evaluation by your physician Discharge Instructions: - Discharge Summary Sheet leah - Chronic Obstructive Pulmonary Disease leah - Fever, Adult leah - Influenza, Adult leah - Cool Mist Vaporizer leah - Chronic Obstructive Pulmonary Disease Exacerbation leah - Upper Respiratory Infection, Adult, [id number] leah - Influenza, Adult, [id number] leah - Cough, Adult leah Forms: - Medication Reconciliation Form leah - Antibiotic Education leah - Prescription Opioid Use [facility] - Patient Portal Instructions [facility] - Leadership Thank You Letter [facility] Prescriptions: - Tessalon Perles 100 mg Oral capsule - take 2 capsule ORAL route every 8 hours As needed; 30 capsule; Refills: 0, leah Product Selection Permitted - Albuterol Sulfate 2.5 mg /3 mL (0.083 %) Inhalation Solution for Nebulization - inhale 1 unit NEBULIZATION route every 4-6 hours As needed; 36 unit; Refills: leah 0, Product Selection Permitted - Prednisone 20 mg Oral Tablet - take 2 tablets ORAL route once daily for 5 days; 10 tablet; Refills: 0, Product leah Selection Permitted - Tamiflu 75 mg Oral capsule - take 1 tablet ORAL route every 12 hours for 5 days; 10 tablet; Refills: 0, leah Product Selection Permitted - Zithromax 500 mg Oral Tablet - take 1 tablet ORAL route once daily for 5 days; 5 tablet; Refills: 0, Product leah Selection Permitted Signatures: Dispatcher [employer] EDMS Koby Elmore MD MD cha Prokisch, Amanda RN RN ap3 Julia Peralta RN RN db Corrections: (The following items were deleted from the chart) 10: 10:29 BASIC METABOLIC PANEL+C.LAB.BRZ ordered. EDMS EDMS 10: 10:29 CBC+H.LAB.BRZ ordered. EDMS EDMS 10: 10:29 HEPATIC FUNCTION+C.LAB.BRZ ordered. EDMS EDMS 10: 10:29 MAGNESIUM+C.LAB.BRZ ordered. EDMS EDMS 10: 10:29 PROBNP+C.LAB.BRZ ordered. EDMS EDMS 10: 10:29 PROTIME (+INR)+COAG.LAB.BRZ ordered. EDMS EDMS 10: 10:29 Troponin High Sensitivity+C.LAB.BRZ ordered. EDMS EDMS 10:29 10:29 BLOOD CULTURE*+BA.LAB.BRZ ordered. EDMS EDMS 10: 10:29 Influenza Screen (A \T\ B)+BA.LAB.BRZ ordered. EDMS EDMS 10:29 10:29 SARS-COV-2 Antigen Rapid+I.LAB.BRZ ordered. EDMS EDMS 10:29 10:29 Urinalysis+U.LAB.BRZ ordered. EDMS EDMS 11:14 11:14 LACTATE+C.LAB.BRZ ordered. EDMS EDMS
[2024-05-21] MEDS ORDERED: predniSONE 20 MG TAB ONE (12:11)
[2024-05-21] MEDS ORDERED: OSELTAMIVIR 75 MG CAP PO ONE (12:11)
[2024-05-21 16:53] VITALS: TEMP 99.9
[2024-05-21 16:58] VITALS: O2SAT 96
[2024-05-21 17:08] VITALS: BP 113/62
== END 2024-05-21 13:14 | disposition home or self-care (01) ==
LOC: ER 10:21
DX: J10.1 Influenza due to other identified influenza virus with other respiratory manifestations (principal); J44.1 Chronic obstructive pulmonary disease with (acute) exacerbation; Z11.52 Encounter for screening for COVID-19; I10 Essential (primary) hypertension; Z85.118 Personal history of other malignant neoplasm of bronchus and lung
CPT/HCPCS: 96365; 96361; 87040 ×2; 85025; 80048; 36415; 83735; 85610; 80076; 83605; 84484; 83880; 87804 ×2; 71045; 96375; 99285; 87811; J7512; J7614; J7644; J2919; J7030; J0696

== ENCOUNTER 2024-11-06 10:55 | Emergency (ER) | payer OTHER, MEDICARE ==
--- OUTSIDE RECORDS SUMMARY | 2024-11-06 10:59 | XMS REPORT | Clinical Summary ---
Author Name Unknown Organization [facility] [place] Address [address] [place] [address] Care Team Providers Care Power Plant Installer Name Role Phone Sheba Velez Unavailable Clay Ahumada MD Unavailable [phone] Sudeep Crouch MD Primary Care Provider Guanaco Henderson MD Unavailable Keaton Rodriguez MD Unavailable [phone] Kaylie Mota MD Unavailable [phone] Seth Fernandez MD Unavailable [phone] Mauri Barr MD Unavailable Ella Adame Unavailable [phone] Allergies Active Allergy Reactions Criticality Noted Date Comments Clindamycin 09/19/2017 Other reaction(s): Itching/Hives/Rash Other reaction(s): Itching/Hives/Rash Medications * This document contains information received from the source organization and may not represent a complete record from that organization. metoprolol tartrate (LOPRESSOR) 50 mg tablet Take 1 tablet (50 mg) by mouth twice daily. 08/02/19 Active senna-docusat e (SENOKOT-S) 8.6 mg-50 mg tabletIndicat ions:Adenocar cinoma, NOS of upper lobe, lung <Left> Take 2 tablets by mouth 2 (two) times a day as needed for constipation. 20 tablet 2 11:03 AM GARMENT WORKER 05/29/20 Active albuterol (PROVENTIL,VE NTOLIN) 2.5 mg/3 mL (0.083%) nebulizer solution Inhale 3 mL (2.5 mg) by nebulization twice daily. Patient has been using 3-4 times a day Active budesonide-fo rmoterol (SYMBICORT) 160-4.5 mcg/actuation inhaler Inhale 2 puffs by mouth once as needed. 12/09/19 Active Eliquis 2.5 mg tabletIndicat ions:Cerebral venous sinus thrombosis TAKE 1 TABLET(2.5 MG) BY MOUTH EVERY 12 HOURS 60 tablet 6 06/16/20 24 Active apixaban (Eliquis) 2.5 mg tabletIndicat ions:Cerebral venous sinus thrombosis Take 1 tablet (2.5 mg) by mouth every 12 (twelve) hours. 60 tablet 6 11/09/19 23 024 Discontinued ondansetron (ZOFRAN) 8 mg tablet TAKE 1 TABLET BY MOUTH EVERY 8 HOURS NEEDED FORNAUSEA AND VOMITING 10/05/19 23 025 Discontinued(T herapy completed) gabapentin (NEURONTIN) 300 mg capsuleIndica tions:Postope rative pain TAKE 1 CAPSULE(300 MG) BY MOUTH THREE TIMES DAILY 90 capsule 05/08/20 23 025 Discontinued(T herapy completed) Eliquis 2.5 mg tabletIndicat ions:Cerebral venous sinus thrombosis TAKE 1 TABLET(2.5 MG) BY MOUTH EVERY 12 HOURS 60 tablet 6 11/13/19 24 024 Discontinued ondansetron (ZOFRAN) 8 mg tabletIndicat ions:Adenocar cinoma, NOS of upper lobe, lung <Left> Take 1 tablet (8 mg) by mouth every 8 (eight) hours as needed for nausea or vomiting for up to 30 days. 90 tablet 12/17/19 24 024 Active Problems Problem Noted Date Diagnosed Date Postoperative pain 06/30/2022 Assessment & Plan (06/30/2022 2:08 PM GARMENT WORKER): After assessment her symptoms are indicative of thoracic nerve pain. I have refilled her gabapentin prescription and advised her to start with 3 times a day again and then wean off per the typical protocol we previously ordered. Sent to her local [facility] pharmacy. Constipation 05/09/2022 Assessment & Plan (05/09/2022 3:04 PM GARMENT WORKER): She did suffer some severe constipation that [...] 05/09 Assessment & Plan (05/09/2022 3:05 PM GARMENT WORKER): Hemoglobin hematocrit 10.1/31.3 respectively. We will monitor this during her preop labs before surgery. After surgery if she needs a blood transfusion we will of course treat her if needed. Abnormal weight loss 05/09/2022 Assessment & Plan (05/09/2022 3:11 PM GARMENT WORKER): She normally weighs about 115 pounds. She [...] I have put in a referral for furnace tender to give her a call to assist her. Cerebral thrombosis 01/24/2022 Assessment & Plan (05/09/2022 3:03 PM GARMENT WORKER): She was found to have a cerebral [...] 05/31/2022 Assessment & Plan (06/30/2022 2:10 PM GARMENT WORKER): Ms. Jennings is a 76-year-old female with [...] pounds. She declined need to see our furnace tender as she has resources from her from her previous visit. I mentioned to her we will see her in 3 to [address] chest and most likely TMO will follow along. Assessment & Plan (05/09/2022 3:02 PM GARMENT WORKER): Ms. Jennings is a 76-year-old female diagnosed [...] Jennings received pre operative teaching from the [facility] nurse. 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> (Primary Dx) 07/18/2024 Orders Only Neuroradiology [address] [place] [address] Giorgi Lugo PA 07/15/2024 9:15 AM GARMENT WORKER Ancillary Procedure [facility] [address] [facility] [address] [place] [address] Sofy Ambrose PA Adenocarcinoma, NOS of upper lobe, lung <Left> 07/15/2024 Travel 06/23/2024 11:15 AM GARMENT WORKER Telemedicine Internal Medicine Center - Hematology [address] [place] [address], 6th [place] [address] Keaton Rodriguez MD 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); Adenocarcinoma, NOS of upper lobe, lung <Left> 06/15/20[facility] - [facility] [address] [place] [address], 6th [place] [address] Keaton Rodriguez MD Cerebral venous sinus thrombosis 03/28/2024 Telephone Thoracic Center - Medical Oncology [address] [place] [address], [address] [place] [address] Sofy Ambrose PA 03/27/2024 Travel 03/04/2024 11:00 AM CDT Telemedicine [facility] [place] - Medical Oncology [address] [place] [address], [address] [place] [address] Sudeep Crouch MD Adenocarcinoma, NOS of upper lobe, 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> (Primary Dx) 03/04/2024 Orders Only Thoracic Center - Medical Oncology [address] [place] [address], [address] [place] [address] Sofy Ambrose PA Adenocarcinoma, NOS of upper lobe, 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> (Primary Dx) 03/03/2024 11:15 AM CDT Ancillary Procedure MD Ram[facility]rez Eubanks[address] [address] Sofy Ambrose PA Adenocarcinoma, NOS of upper lobe, lung <Left> 03/03/2024 8:40 AM CDT Ancillary Procedure MD Ram[facility] Eubanks[address] [address] Sofy Ambrose PA Adenocarcinoma, NOS of upper lobe, 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> 03/03/2024 Telephone [facility]acic Center - Medical Oncology [address] [place] [address], [address] [place] [phone] Lucia Machado MA 03/03/2024 Travel 12/17/2023 10:15 AM CDT Telemedicine Internal Medicine Center - Hematology [address] [place] [address], 6th [place] [address] Keaton Rodriguez MD Adenocarcinoma, NOS of upper lobe, lung <Left> 11/27/2023 10:00 AM CDT Telemedicine [facility] - Medical Oncology [address] [place] [address], 9th [place] [address] Sudeep Crouch MD Adenocarcinoma, NOS of upper lobe, 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> (Primary Dx) 11/27/[address] Imaging [address] [place] [address], 7th [place] [address] Joanna Landon MD 11/27/2023 Orders Only Thoracic Center - Medical Oncology [address] [place] [address], 9th [facility] [address] Sofy Ambrose PA Adenocarcinoma, NOS of upper lobe, 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> (Primary Dx) 11/26/2023 9:30 AM CDT Ancillary Procedure [facility] [address] [place] [address] Sofy Ambrose PA Adenocarcinoma, NOS of upper lobe, lung <Left> 11/26/2023 Travel 11/13/2023 [facility] - [facility] [address] [place] [address], 6th [place] [address] Mona Reid, FELTMAKER Cerebral venous sinus thrombosis after 11/07/2023 Immunizations Immunization Administration Dates Next Due Pneumococcal Polysaccharide PPSV23 09/20/2017 Surgical History Surgery Date Site/Laterality Comments TUMOR EXCISION Right right shoulder "lipoma" CORONARY ANGIOPLASTY 06/18/2016 - 06/17/2017 no intervention CATARACT EXTRACTION BILATERAL W/ ANTERIOR VITRECTOMY Bilateral COLONOSCOPY 06/18/2017 - 06/17/2018 3 precancerous polpys removed DILATION AND CURETTAGE OF UTERUS [place] [facility] EBUS GUIDED SAMPL 3/> NODE STATION/STRUX 12/21/2021 N/A Procedure: BRONCHOSCOPY WITH EBUS 3 OR MORE NODES; Surgeon: Kaylie Mota MD; Location: MAIN PULM PROC; Service: PULMONARY [place] THORACOSCOPY W/LOBECTOMY SINGLE LOBE 05/25/2022 Left Procedure: ROBOTIC (RATS) (SI) LOBECTOMY; Surgeon: Jim Hernadez MD; Location: MAIN OR; Service: THRCV - THORACIC SURGERY Medical devices from this surgery are in the Medical Devices section. 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 01/08/2025 10:15 AM CDT Ancillary Procedure [address] [address] Sofy Ambrose PA [address] [place] [id number] [email or web address] 01/08/2025 12:05 PM CDT Ancillary Procedure MD [facility] [address] [address] Sofy Ambrose PA [address] [place] [id number] [email or web address] 01/09/2025 9:40 AM CDT Telemedicine Thoracic Center - Medical Oncology [address] [place] [address], 9th [place] [address] Sudeep Crouch MD [address] [place] [phone] [email or web address] 01/19/2025 11:00 AM CDT Telemedicine Internal Medicine Center - Hematology [address] [facility], 6th [place] [address] Keaton Rodriguez MD [facility] [place] [address] [email or web address] Health Maintenance Due Date Last Done Comments Pneumococcal Vaccine: 50+ Years (2 of 2 - PCV) 019 09/20/2017 COVID-19 Vaccine ( season) 2024 Influenza Vaccine (Season Ended) 2025 Medical Devices Implanted Type Area Tool Repairer Device Identifier Shelf Expiration Date Model / Serial / Lot Cath Thoracic Str 28fr - [id number] Implanted:Qty: 1 on 05/25/2022 by Jim Hernadez MD at [facility] Left: Chest [employer] 01/06/2025 [id number] / / [id number] Procedures Procedure Name Priority Date/Time Associated Diagnosis Comments CT CHEST WO CONTRAST Routine 07/15/2024 10:58 AM GARMENT WORKER Adenocarcinoma, NOS of upper lobe, lung <Left> .CBC Routine 07/15/2024 8:20 AM GARMENT WORKER Adenocarcinoma, NOS of upper lobe, lung <Left> FREE THYROXINE Routine 07/15/2024 8:20 AM GARMENT WORKER Adenocarcinoma, NOS of upper lobe, lung <Left> THYROID STIMULATING HORMONE Routine 07/15/2024 8:20 AM GARMENT WORKER Adenocarcinoma, NOS of upper lobe, lung <Left> COMPREHENSIVE METABOLIC PANEL Routine 07/15/2024 8:20 AM GARMENT WORKER Adenocarcinoma, NOS of upper lobe, lung <Left> COMPLETE BLOOD COUNT W/ DIFFERENTIAL Routine 07/15/2024 8:20 AM GARMENT WORKER Adenocarcinoma, NOS of upper lobe, lung <Left> FREE THYROXINE Routine 03/27/2024 11:02 AM CDT [...] NOS of upper lobe, lung <Left> after 11/07/2023 Results * CT Chest without Contrast (07/15/2024 10:58 AM GARMENT WORKER) Anatomical Region Laterality Modality Chest Computed Tomogra phy 07/15/2024 2:30 PM GARMENT WORKER Impressions 07/16/2024 8:41 AM GARMENT WORKER Status post left upper lobectomy. No intrathoracic recurrence or metastases. Several tiny lung nodules remain stable as described. ACTIONABLE ITEMS/RECOMMENDATIONS*: None. *An Actionable Finding is a finding that may be unrelated to the original reason for imaging but potentially actionable, meaning further investigation may be necessary. The Actionable Findings Vigilance Unit (AFVU) assists medical providers with responding to additional radiologic findings that are unexpected and potentially actionable. Narrative 07/16/2024 8:41 AM GARMENT WORKER FULL RESULT: Examination: CT CHEST WO CONTRAST on 07/15/2024 10:58 AM. Clinical History: Adenocarcinoma, NOS of upper lobe, lung <Left> Indication: Lung cancer care (staging, restaging, surveillance, etc.), Cancer surveillance Comparison: Chest CT dated 03/03/2024 Technique: CT of the chest is performed without intravenous contrast. Findings: Lungs/Airways/Pleura: Status post left upper lobectomy. Mild diffuse bronchial and bronchiolar wall thickening. Persistent faint ill-defined groundglass opacity in the apical right upper lobe on image 21. There is subsegmental atelectasis in the medial right apex on image 18 and in the medial segment of the right middle lobe. Stable 1.6 cm thin-walled cyst in the right lower lobe on image 60. A mixed attenuation subpleural nodular opacity in the right upper lobe along the right minor fissure measuring 6 mm on image 48 is stable. Several additional tiny lung nodules measuring up to 3 mm are stable as seen in the right lower lobe on image 50, 73, 98, 107. No enlarging lung nodules. Trace left pleural thickening is unchanged. No pleural effusion. Neck/Mediastinum/Nodes/Heart: Cardiac chambers are normal in size. There is no pericardial effusion. Atherosclerotic calcification of the thoracic aorta, great vessels and coronary arteries. No enlarged mediastinal or hilar lymph nodes. Small hiatal hernia. Upper abdomen: No abnormality in the spleen or adrenal glands. Stable hypoattenuating hepatic lesions which are incompletely assessed on this noncontrast study. Bones/Soft Tissues: No suspicious lytic or blastic lesions. Procedure Note Phyllis Banegas MD - 07/16/2024 FULL RESULT: Examination: CT CHEST WO CONTRAST on 07/15/2024 10:58 AM. 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 Findings: Lungs/Airways/Pleura: Status post left upper lobectomy. Mild diffusebronchial and bronchiolar wall thickening. Persistent faint ill-definedgroundglass opacity in the apical right upper lobe on image 21. There issubsegmental atelectasis in the medial right apex on image 18 and in themedial segment of the right middle lobe. Stable 1.6 cm thin-walled cyst inthe right lower lobe on image 60. A mixed attenuation subpleural nodular opacity in the right upper lobealong the right minor fissure measuring 6 mm on image 48 is stable.Several additional tiny lung nodules measuring up to 3 mm are stable asseen in the right lower lobe on image 50, 73, 98, 107. No enlarging lungnodules. Trace left pleural thickening is unchanged. No pleuraleffusion. Neck/Mediastinum/Nodes/Heart: Cardiac chambers are normal in size. Thereis no pericardial effusion. Atherosclerotic calcification of the thoracicaorta, great vessels and coronary arteries. No enlarged mediastinal orhilar lymph nodes. Small hiatal hernia. Upper abdomen: No abnormality in the spleen or adrenal glands. Stablehypoattenuating hepatic lesions which are incompletely assessed on thisnoncontrast study. Bones/Soft Tissues: No suspicious lytic or blastic lesions. IMPRESSION: Status post left upper lobectomy. No intrathoracic recurrence or metastases. Several tiny lung nodules remain stable as described. ACTIONABLE ITEMS/RECOMMENDATIONS*: None. *An Actionable Finding is a finding that may be unrelated to the originalreason for imaging but potentially actionable, meaning furtherinvestigation may be necessary. The Actionable Findings Vigilance Unit(AFVU) assists medical providers with responding to additional radiologicfindings that are unexpected and potentially actionable. Sofy INMAN IMG CT ORDERABLES Final Res ult * (ABNORMAL) .CBC (07/15/2024 8:20 AM [facility]) Only the most recent of3 resultswithin the time period is included. White Blood Cell 6.8 4.1 - 10.5 K/uL 07/15/2024 8:31 AM [facility] Red Blood Cell 4.05 3.99 - 5.46 M/uL 07/15/2024 8:31 AM [facility] Hemoglobin 12.3 12.2 - 15.3 g/dL 07/15/2024 8:31 AM [facility] Hematocrit 38.9 36.4 - 46.8 % 07/15/2024 8:31 AM [facility] Mean Cell Volume 96 82 - 99 fL 07/15/2024 8:31 AM [facility] Mean Cell Hemoglobin 30.4 26.6 - 33.2 pg 07/15/2024 8:31 AM [facility] Mean Cell Hemoglobin Concentration 31.6 31.1 - 35.2 g/dL 07/15/2024 8:31 AM [facility] RDW-SD 50.4(H) 37.5 - 49.7 fL 07/15/2024 8:31 AM [facility] Red Cell Diameter Width 14.0 11.6 - 15.5 % 07/15/2024 8:31 AM [facility] Platelet 232 160 - 397 K/uL 07/15/2024 8:31 AM [facility] Mean Platelet Volume 8.6(L) 9.1 - 12.6 fL 07/15/2024 8:31 AM [facility] Neutrophil % 62.0 43.2 - 72.7 % 07/15/2024 8:31 AM [facility] Lymphocyte % 25.4 16.8 - 46.2 % 07/15/2024 8:31 AM [facility] Monocyte % 8.9 5.1 - 12.5 % 07/15/2024 8:31 AM [facility] Eosinophil % 2.9 0.4 - 6.3 % 07/15/2024 8:31 AM [facility] Basophil % 0.7 0.2 - 1.4 % 07/15/2024 8:31 AM [facility] IGRE % 0.1 0.1 - 1.5 % 07/15/2024 8:31 AM [facility] Comment:The IGRE% includes M etamyelocytes, Myelocytes and Promyelocytes. Neutrophil Abs 4.22 1.95 - 7.25 K/uL 07/15/2024 8:31 AM [facility] Lymphocyte Abs 1.73 1.01 - 3.24 K/uL 07/15/2024 8:31 AM [facility] Monocyte Abs 0.61 0.24 - 0.85 K/uL 07/15/2024 8:31 AM [facility] Eosinophil Abs 0.20 0.02 - 0.50 K/uL 07/15/2024 8:31 AM [facility] Basophil Abs 0.05 0.02 - 0.09 K/uL 07/15/2024 8:31 AM [facility] IG Abs 0.01 0.01 - 0.12 K/uL 07/15/2024 8:31 AM [facility] Blood Peripheral blood specimen / Unknown Venipuncture / Unknown 07/15/2024 8:20 AM GARMENT WORKER 07/15/2024 8:20 AM [facility] us Sofy INMAN LAB BLOOD ORDERABLES Final Result Performing Organization Address [facility]/State/[facility] Co de Phone Number [facility] [address] [facility], [facility] [address] [place] [address] * (ABNORMAL) Comprehensive Metabolic Panel (07/15/2024 8:20 AM [facility]) Only the most recent of3 resultswithin the time period is included. Bilirubin Total 0.4 0.0 - 1.2 mg/dL 07/15/2024 8:43 AM [facility] Comment:Indocyanine Green (I CG) may cause falsely elevated bilirubin results. Total and direct bilirubin must not be measured from samples containing indocyanine green. False elevation of total bilirubin can be seen in patients with IgG concentrations above 28 g/L. eGFR 38(L) >=60 mL/min/1. 73 sq. m 07/15/2024 8:43 AM [facility] Comment: The eGFRcr is calculated with the [...] G2 fulfill criteria for CKD. Tot Protein 7.1 6.4 - 8.3 gm/dL 07/15/2024 8:43 AM [facility] Calcium Level Total 9.5 8.2 - 10.2 mg/dL 07/15/2024 8:43 AM [facility] Alkaline Phosphatase 101 35 - 104 U/L 07/15/2024 8:43 AM [facility] Albumin Level 4.2 3.5 - 5.2 gm/dL 07/15/2024 8:43 AM [facility] AST 17 <=32 U/L 07/15/2024 8:43 AM [facility] ALT 8 <=33 U/L 07/15/2024 8:43 AM [facility] Sodium Level 141 136 - 145 mmol/L 07/15/2024 8:43 AM [facility] Potassium Level 4.3 3.4 - 4.5 mmol/L 07/15/2024 8:43 AM [facility] Chloride 105 98 - 107 mmol/L 07/15/2024 8:43 AM [facility] CO2 28 22 - 29 mmol/L 07/15/2024 8:43 AM [facility] Anion Gap 8 4 - 14 mmol/L 07/15/2024 8:43 AM [facility] Creatinine 1.39(H) 0.51 - 0.95 mg/dL 07/15/2024 8:43 AM [facility] BUN 17 6 - 23 mg/dL 07/15/2024 8:43 AM [facility] Glucose Level 95 70 - 99 mg/dL 07/15/2024 8:43 AM [facility] Comment: Effective 01/12/16, the glucose reference intervals have been updated based on [place] Diabetes [employer] guidelines (Standards of Medical Care in Diabetes 2016. Diabetes Care 2016; 39: S13-S22). Fasting blood glucose: Normal: 70-99 mg/dL Impaired fasting glucose (increased risk for diabetes or pre-diabetes): 100-125 mg/dL Diabetes mellitus: >/=126 mg/dL Random blood glucose: Normal: 70-199 mg/dL Note: Random glucose >100 mg/dL is associated with increased risk for diabetes. Blood Peripheral blood specimen / Unknown Venipuncture / Unknown 07/15/2024 8:20 AM GARMENT WORKER 07/15/2024 8:20 AM GARMENT WORKER Sofy INMAN LAB BLOOD ORDERABLES Final Result Performing Organization Address City/[facility]/ZIP Co de Phone Number [address] [address] * TSH (07/15/2024 8:20 AM GARMENT WORKER) Only the most recent of4 resultswithin the time period is included. Thyroid Stimulating Hormone 3.18 0.27 - 4.20 mcIU/mL 07/15/2024 8:53 AM [facility] Blood Peripheral blood specimen / Unknown Venipuncture / Unknown 07/15/2024 8:20 AM GARMENT WORKER 07/15/2024 8:20 AM GARMENT WORKER Sofy INMAN LAB BLOOD ORDERABLES Final Result Performing Organization Address [facility]/ZIP Co de Phone Number [address] [address] * Free T4 (07/15/2024 8:20 AM GARMENT WORKER) Only the most recent of4 resultswithin the time period is included. T4 (Thyroxine) Free 0.95 0.92 - 1.68 ng/dL 07/15/2024 8:53 AM GARMENT WORKER [place] Blood Peripheral blood specimen / Unknown Venipuncture / Unknown 07/15/2024 8:20 AM GARMENT WORKER 07/15/2024 8:20 AM GARMENT WORKER Sofy Ambrose PA LAB BLOOD ORDERABLES Final Result Performing Organization Address [facility]/ZIP Co de Phone Number [address], [address] [address] * Free T3 (03/27/2024 11:02 AM CDT) Free T3 2.7 2.0 - 4.4 pg/mL 03/27/2024 11:53 AM CDT [place] Blood Peripheral blood specimen / Unknown Venipuncture / Unknown 03/27/2024 11:02 AM CDT 03/27/2024 11:02 AM CDT Sofy Ambrose PA LAB BLOOD ORDERABLES Final Result Performing Organization Address City/[facility]/ZIP Co de Phone Number [address], [address] [address] * MRI Brain with and without Contrast [...] abnormality. The vascular flow voids at the inaja of Dave are maintained. Re-noted is a [...] abnormality. The vascular flow voids at the inaja of Dave are maintained. Re-noted is a nonocclusive filling defect in the right transverse sinus,suspicious for intraluminal thrombus. It has remained stable since 12/2021.It is better seen in CTV on 01/04/2022. A 0.7 cm enhancing right frontal parafalcine nodule is annotated on [email or web address] image 82, unchanged since 12/2021. It likely [...] right transversesinus. ACTIONABLE ITEMS/RECOMMENDATIONS: None. Sofy INMAN [facility] [place] ORDERABLES Final Re sult * CT Chest with Contrast (03/03/2024 9:59 AM CDT) Only the most recent of2 resultswithin the [...] are unexpected and potentially actionable. Sofy INMAN IMG CT ORDERABLES Final Res ult after 11/07/2023 Insurance MEDICARE PART A AND B AARP-SECONDARY ONLY MEDICARE PART A AND B AAR-SECONDARY ONLY Advance Directives * Full Code (Latest Code Status on File) Date Activated Date Inactivated Comments 05/25/2022 8:46 PM 05/29/2022 2:30 PM Care Teams Power Plant Installer Relationship Specialty Start Date End Date Sheba Velez [address] [place] [address] PCP - External Primary Care Provider Nurse Practitioner 11/17/21 Clay Ahumada MD [address] [place] [address] PCP - External Follow Up A Pulmonary Medicine 11/17/21 Sudeep Crouch MD [address] [place] [phone] [email or web address] PCP - General Thoracic Medicine 12/27/21 Guanaco Henderson MD [address] [place] [phone] Cardiology 05/09/22 Keaton Rodriguez MD [address] [place] [phone] [email or web address] [email or web address] Physician Hematology and Oncology 03/27/22 Kaylie Mota MD [address] [place] [phone] [email or web address] Consulting Physician Pulmonary Medicine 12/20/21 Seth Fernandez MD [address] [place] [phone] [email or web address] Consulting Physician Gastroenterology, Hepatology and Nutrition 09/12/22 Mauri Barr MD [address] [place] [phone] [email or web address] Consulting Physician Pain Management 08/04/22 Ella Adame PA [address] [place] [phone] [email or web address] Physician Marketing Sales Supervisor Radiology 12/01/21
[2024-11-06 11:40] LABS: Absolute Eosinophils 0.2 K/uL (0-0.5); Absolute Lymphocytes (CBC) 1.5 K/uL (0.7-4.9); Absolute Monocytes 0.6 K/uL (0.1-1.3); Basophils % 0.7 % (0-1.3); Eosinophils % 3.2 % (0-4.4); Hematocrit 36.3 % (36.0-45.0); Hemoglobin 12.2 g/dL (12.0-15.0); Lymphocytes % 20.3 % (15.3-44.8); MCH 31.1 pg (27.0-35.0); MCHC 33.5 g/dL (32.0-36.0); MCV 92.9 fL (80-100); MPV 6.8 fL (7.6-11.3); Monocytes % 7.6 % (3.3-12.3); Neutrophils % 68.2 % (41.7-73.7); Nucleated Red Blood Cells % 0.1 % (0-0); Platelets 234 thou/uL (152-406); Red Cell Distribution Width 15.3 % (12.1-15.2)
[2024-11-06 11:45] LABS: PT Prothrombin Time 15.5 SECONDS (10-13.0); Protime INR 1.38
[2024-11-06 12:24] LABS: ALT/SGPT 17 U/L (13-56); AST/SGOT 15 U/L (15-37); Albumin 3.5 g/dL (3.4-5.0); Albumin/Globulin Ratio 1.1 (1.1-1.8); Alkaline Phosphatase 103 U/L (45-117); BUN Blood Urea Nitrogen 20 mg/dL (7-18); Bicarbonate 28 mEq/L (21-32); Bilirubin Total 0.4 mg/dL (0.2-1.0); Globulin 3.2 g/dL (2.3-3.5); Glomerular Filtration Rate 42 ml/min (=/>90); Glucose Level 91 mg/dL (74-106); Magnesium 2.1 mg/dL (1.6-2.4); NT PRO-BNP 188 pg/mL (<450); Protein, Total 6.7 g/dL (6.4-8.2); Sodium Level 139 mEq/L (136-145)
[2024-11-06 12:29] LABS: Bilirubin Direct < 0.2 mg/dL (0-0.2); Bilirubin Indirect, Calculated 0.2 mg/dL (0.2-0.8)
--- NOTE | 2024-11-06 13:07 | RAD REPORT ---
EXAMINATION: ONE VIEW CHEST XR CLINICAL INDICATION: CHEST PAIN TECHNIQUE: Frontal chest projection is submitted. Examination is limited by patient positioning and t echnique. COMPARISON: 05/21/2024 FINDINGS: The lungs are well inflated and clear. The heart is moderately enlarged in size. No displaced fractur es identified. Aortic atherosclerosis. IMPRESSION: No acute intrathoracic abnormalities.
--- NOTE | 2024-11-06 14:40 | EDPHYS ---
Physician Documentation [facility] Name: Brianne Jennings Age: 79 yrs Sex: Female : 1945 Arrival Date: 11/06/2024 Time: 10:55 Bed 5 Private MD: ED Physician Kirstin Rosado HPI: 11/06 11:22 This 79 yrs old Female presents to ER via Ambulatory with complaints of Chest Pain. sp3 11:22 79-year-old female with COPD, hypertension, history of lung cancer with last treatment sp3 in 2021 presents with chest pain that started yesterday evening. Pain is significantly better now however patient is here "just to make sure everything is okay". She denies ongoing chest pain, shortness of breath, fever, headache, neck pain, back pain, abdominal pain, nausea, vomit, diarrhea, extremity pain, syncope, near syncope, or any other signs or symptoms on ROS at this time.. Historical: - Allergies: 11:12 Clindamycin; ap3 - PMHx: 11:12 acid reflux; Arthritis; COPD; Hypertension; Lung Cancer; ap3 - Immunization history:: Client reports having NOT received the Covid vaccine. - Infectious Disease History:: Denies. - Social history:: Smoking status: Patient/guardian denies using tobacco. ROS: 11:23 Constitutional: Negative for fever, chills, and weight loss, Eyes: Negative for injury, sp3 pain, redness, and discharge, ENT: Negative for injury, pain, and discharge, Neck: Negative for injury, pain, and swelling, Respiratory: Negative for shortness of breath, cough, wheezing, and pleuritic chest pain, Abdomen/GI: Negative for abdominal pain, nausea, vomiting, diarrhea, and constipation, Back: Negative for injury and pain, MS/Extremity: Negative for injury and deformity, Skin: Negative for injury, rash, and discoloration, Neuro: Negative for headache, weakness, numbness, tingling, and seizure, Psych: Negative for depression, anxiety, suicide ideation, homicidal ideation, and hallucinations, Allergy/Immunology: Negative for hives, rash, and allergies, Endocrine: Negative for neck swelling, polydipsia, polyuria, polyphagia, and marked weight changes, 11:23 All other systems are negative, Exam: 11:26 Constitutional: This is a well developed, well nourished patient who is awake, alert, sp3 and in no acute distress. Head/Face: Normocephalic, atraumatic. Eyes: Pupils equal round and reactive to light, extra-ocular motions intact. Lids and lashes normal. Conjunctiva and sclera are non-icteric and not injected. Cornea within normal limits. Periorbital areas with no swelling, redness, or edema. ENT: Nares patent. No nasal discharge, no septal abnormalities noted. External auditory canals are clear. Oropharynx with no redness, swelling, or masses, exudates, or evidence of obstruction, uvula midline. Mucous membranes moist. Neck: Trachea midline, no thyromegaly or masses palpated, and no cervical lymphadenopathy. Supple, full range of motion without nuchal rigidity, or vertebral point tenderness. No Meningismus. Chest/axilla: Normal chest wall appearance and motion. Nontender with no deformity. No lesions are appreciated. Cardiovascular: Regular rate and rhythm with a normal S1 and S2. No gallops, murmurs, or rubs. Normal PMI, no JVD. No pulse deficits. Respiratory: Lungs have equal breath sounds bilaterally, clear to auscultation and percussion. No rales, rhonchi or wheezes noted. No increased work of breathing, no retractions or nasal flaring. Abdomen/GI: Soft, non-tender, with normal bowel sounds. No distension or tympany. No guarding or rebound. No evidence of tenderness throughout. Back: No spinal tenderness. No costovertebral tenderness. Full range of motion. Skin: Warm, dry with normal turgor. Normal color with no rashes, no lesions, and no evidence of cellulitis. MS/ Extremity: Pulses equal, no cyanosis. Neurovascular intact. Full, normal range of motion. Neuro: Awake and alert, GCS 15, oriented to person, place, time, and situation. Cranial nerves II-XII grossly intact. Motor strength 5/5 in all extremities. Sensory grossly intact. Cerebellar exam normal. Normal gait. Psych: Awake, alert, with orientation to person, place and time. Behavior, mood, and affect are within normal limits. 11:27 ECG was reviewed by the Attending Physician. EKG demonstrates sinus bradycardia at 50 sp3 bpm with normal intervals, normal QRS, normal axis, normal ST/T-segment's without evidence of acute ischemia. Vital Signs: 11:10 BP 162 / 71; Pulse 57; Resp 17; Temp 98.5(O); Pulse Ox 100% ; Weight 53.07 kg; Height 5 ap3 ft. 2 in. ; Pain 5/10; 12:47 BP 123 / 70; Pulse 47; Resp 16; Pulse Ox 98% on R/A; iw 13:16 BP 138 / 59; Pulse 52; Resp 16; Pulse Ox 98% on R/A; iw 14:19 BP 141 / 68; Pulse 59; Resp 18; Pulse Ox 97% on R/A; ph 11:10 Body Mass Index 21.40 (53.07 kg, 157.48 cm) ap3 11:10 Pain Scale: Adult ap3 MDM: 11:03 Medical Screening Exam initiated sp3 11:27 Data reviewed: vital signs, nurses notes, old medical records, lab test result(s), EKG, sp3 radiologic studies. ED course: 79-year-old female with chest pain since yesterday in the setting of no prior cardiac history. Patient has had a lung resection and prior lung cancer. Will obtain chest x-ray, EKG which shows sinus bradycardia, and routine labs. Consider second troponin and discharge versus 23-hour observation.. 14:38 ED course: Second troponin negative. Patient is having no chest pain whatsoever. Vital sp3 signs remain normal. Patient in no acute distress and would like to go home. I agree and we will discharge her with close PCP and cardiology follow-up as needed.. 11/06 11:12 Order name: Basic Metabolic Panel; Complete Time: 12:33 3 11/06 11:12 Order name: CBC with Diff; Complete Time: 12:33 sp3 11/06 11:12 Order name: LFT's; Complete Time: 12:33 sp3 11/06 11:12 Order name: Magnesium; Complete Time: 12:33 sp3 11/06 11:12 Order name: NT PRO-BNP; Complete Time: 12:33 sp3 11/06 11:12 Order name: PT-INR; Complete Time: 12:33 3 11/06 11:12 Order name: Troponin HS; Complete Time: 12:33 3 11/06 12:42 Order name: Troponin High Sensitivity: Draw 2 hours after first draw; Complete Time: sp3 14:38 11/06 11:12 Order name: XRAY Chest (1 view); Complete Time: 13:26 sp3 11/06 11:12 Order name: Cardiac monitoring; Complete Time: 11:19 sp3 11/06 11:12 Order name: EKG - Nurse/Tech; Complete Time: 11:19 sp3 11/06 11:12 Order name: IV Saline Lock; Complete Time: 11:32 sp3 11/06 11:12 Order name: Labs collected and sent; Complete Time: 11:32 sp3 11/06 11:12 Order name: O2 Per Protocol; Complete Time: 11:19 sp3 11/06 11:12 Order name: O2 Sat Monitoring; Complete Time: 11:19 sp3 Administered Medications: No medications were administered Disposition Summary: 11/06/24 14:39 Discharge Ordered Notes: Location: Home sp3 Condition: Stable sp3 Diagnosis - Chest pain sp3 Followup: sp3 - With: Private Physician - When: Upon discharge from the Emergency Department - Reason: Continuance of care Discharge Instructions: - Discharge Summary Sheet sp3 - Nonspecific Chest Pain, Adult sp3 Forms: - Medication Reconciliation Form sp3 - Antibiotic Education sp3 - Prescription Opioid Use sp3 - Patient Portal Instructions sp3 - Leadership Thank You Letter sp3 Signatures: Dispatcher [employer] Angeli Bishop RN RN ap3 Kirstin Rosado MD MD sp3 Corrections: (The following items were deleted from the chart) 11:13 11:13 BASIC METABOLIC PANEL+C.LAB.BRZ ordered. EDMS EDMS 11:13 11:13 CBC+H.LAB.BRZ ordered. EDMS EDMS 11:13 11:13 HEPATIC FUNCTION+C.LAB.BRZ ordered. EDMS EDMS 11:13 11:13 MAGNESIUM+C.LAB.BRZ ordered. EDMS EDMS 11:13 11:13 PROBNP+C.LAB.BRZ ordered. EDMS EDMS 11:13 11:13 PROTIME (+INR)+COAG.LAB.BRZ ordered. EDMS EDMS 11:13 11:13 Troponin High Sensitivity+C.LAB.BRZ ordered. EDMS EDMS 11:13 11:13 Chest Single View+RAD.RAD.BRZ ordered. EDMS EDMS
--- NOTE | 2024-11-06 14:40 | ER ---
Nurse's Notes [facility] Name: Brianne Jennings Age: 79 yrs Sex: Female : 1945 Arrival Date: 11/06/2024 Time: 10:55 Bed 5 Private MD: Diagnosis: Chest pain Presentation: 11/06 11:10 Chief complaint: Patient states: she was having chest pain last night, but is now ap3 having more abdominal pain which she rates a 5/10 on the pain scale. patient reports nausea but no vomiting. Coronavirus screen: At this time, the client does not indicate any symptoms associated with coronavirus-19. Ebola Screen: No symptoms or risks identified at this time. Initial Sepsis Screen: Does the patient meet any 2 criteria? No. Patient's initial sepsis screen is negative. Does the patient have a suspected source of infection? No. Patient's initial sepsis screen is negative. Risk Assessment: Do you want to hurt yourself or someone else? Patient reports no desire to harm self or others. Onset of symptoms was November 05, 2024. 11:10 Method Of Arrival: Ambulatory ap3 11:10 Acuity: LYNNE 2 ap3 Triage Assessment: 11:12 General: Appears in no apparent distress. Behavior is calm, cooperative, appropriate ap3 for age. Pain: Complains of pain in chest and abdomen. Neuro: Level of Consciousness is awake, alert, obeys commands, Oriented to person, place, time, situation, Appropriate for age. Cardiovascular: Reports chest pain. Respiratory: Airway is patent Respiratory effort is even, unlabored, Respiratory pattern is regular, symmetrical. Historical: - Allergies: 11:12 Clindamycin; ap3 - PMHx: 11:12 acid reflux; Arthritis; COPD; Hypertension; Lung Cancer; ap3 - Immunization history:: Client reports having NOT received the Covid vaccine. - Infectious Disease History:: Denies. - Social history:: Smoking status: Patient/guardian denies using tobacco. Screenin:12 Abuse screen: Denies threats or abuse. Nutritional screening: No deficits noted. ap3 Tuberculosis screening: No symptoms or risk factors identified. Assessment: 11:30 General: Appears in no apparent distress. Behavior is calm, cooperative. Pain: iw Complains of pain in abdomen and chest Pain does not radiate. Pain began 1 day ago. Neuro: Level of Consciousness is awake, alert, obeys commands, Oriented to person, place, time, situation, Moves all extremities. Full function. Cardiovascular: Patient's skin is warm and dry. Respiratory: Respiratory effort is even, unlabored, Respiratory pattern is regular, symmetrical. GI: Abdomen is non-distended. 13:16 Reassessment: Patient appears in no apparent distress at this time. Patient and/or iw family updated on plan of care and expected duration. Pain level reassessed. Patient is alert, oriented x 3, equal unlabored respirations, skin warm/dry/pink. Vital Signs: 11:10 BP 162 / 71; Pulse 57; Resp 17; Temp 98.5(O); Pulse Ox 100% ; Weight 53.07 kg; Height 5 ap3 ft. 2 in. ; Pain 5/10; 12:47 BP 123 / 70; Pulse 47; Resp 16; Pulse Ox 98% on R/A; iw 13:16 BP 138 / 59; Pulse 52; Resp 16; Pulse Ox 98% on R/A; iw 14:19 BP 141 / 68; Pulse 59; Resp 18; Pulse Ox 97% on R/A; ph 11:10 Body Mass Index 21.40 (53.07 kg, 157.48 cm) ap3 11:10 Pain Scale: Adult ap3 ED Course: 10:57 Patient arrived in ED. gl 11:01 Kirstin Rosado MD is Attending Physician. sp3 11:12 Triage completed. ap3 11:12 Eleanor Shelton, RN is Primary Nurse. iw 11:13 Patient has correct armband on for positive identification. Placed in gown. Bed in low ap3 position. Call light in reach. Side rails up X 1. Client placed on continuous cardiac and pulse oximetry monitoring. NIBP monitoring applied. monitoring tech on. Pulse ox on. NIBP on. 11:19 EKG done, by ED staff, reviewed by Kirstin Rosado MD. ap3 11:30 Initial lab(s) drawn, by me, sent to lab. Inserted saline lock: 22 gauge in left iw antecubital area, using aseptic technique. Blood collected. Flushed with 10 mL NS. 12:35 XRAY Chest (1 view) In Process Unspecified. EDMS 13:39 Troponin High Sensitivity: Draw 2 hours after first draw Sent. iw Administered Medications: No medications were administered Medication: 12:47 VIS not applicable for this client. iw Outcome: 14:39 Discharge ordered by MD. mendez 15:13 Patient left the ED. ap3 Signatures: Dispatcher [employer] EDEleanor Barger, RN Sumi Dave RN RN Angeli Melendez RN RN ap3 Kirstin Rosado MD MD sp3 Erica Forbes, Reg Reg gl
[2024-11-06 15:27] VITALS: TEMP 98.5
[2024-11-06 15:41] VITALS: BP 141/68; O2SAT 97
== END 2024-11-06 15:13 | disposition home or self-care (01) ==
LOC: ER 10:55
DX: R07.9 Chest pain, unspecified (principal); I10 Essential (primary) hypertension; J44.9 Chronic obstructive pulmonary disease, unspecified; K21.9 Gastro-esophageal reflux disease without esophagitis; M19.90 Unspecified osteoarthritis, unspecified site
CPT/HCPCS: 36415; 71045; 80048; 80076; 83735; 83880; 84484; 85025; 85610; 93005; 99284

== ENCOUNTER 2024-11-11 14:45 | Emergency (ER) | payer OTHER, MEDICARE ==
--- OUTSIDE RECORDS SUMMARY | 2024-11-11 14:48 | XMS REPORT | Clinical Summary ---
Author Name Unknown Organization [facility] [place] Address [address] [place] [address] Care Team Providers Care Paid Search Analyst Name Role Phone Sheba Velez Unavailable Clay Ahumada MD Unavailable [phone] Sudeep Crouch MD Primary Care Provider Guanaco [place] MD Unavailable Keaton Rodriguez MD Unavailable [phone] Kaylie Mota MD Unavailable [phone] Seth Fernandez MD Unavailable [phone] Mauri Barr MD Unavailable Ella Adame Unavailable [phone] Allergies Active Allergy Reactions Criticality Noted [...] for constipation. 20 tablet 2 11:03 AM RACING SECRETARY AND HANDICAPPER 05/29/20 Active albuterol (PROVENTIL,VE NTOLIN) 2.5 mg/3 [...] 06/30/2022 Assessment & Plan (06/30/2022 2:08 PM RACING SECRETARY AND HANDICAPPER): After assessment her symptoms are indicative of thoracic nerve pain. I have refilled her gabapentin prescription and advised her to start with 3 times a day again and then wean off per the typical protocol we previously ordered. Sent to her local [facility] pharmacy. Constipation 05/09/2022 Assessment & Plan (05/09/2022 3:04 PM RACING SECRETARY AND HANDICAPPER): She did suffer some severe constipation that [...] 05/09 Assessment & Plan (05/09/2022 3:05 PM RACING SECRETARY AND HANDICAPPER): Hemoglobin hematocrit 10.1/31.3 respectively. We will monitor this during her preop labs before surgery. After surgery if she needs a blood transfusion we will of course treat her if needed. Abnormal weight loss 05/09/2022 Assessment & Plan (05/09/2022 3:11 PM RACING SECRETARY AND HANDICAPPER): She normally weighs about 115 pounds. She [...] I have put in a referral for preparatory technician to give her a call to assist her. Cerebral thrombosis 01/24/2022 Assessment & Plan (05/09/2022 3:03 PM RACING SECRETARY AND HANDICAPPER): She was found to have a cerebral [...] 05/31/2022 Assessment & Plan (06/30/2022 2:10 PM RACING SECRETARY AND HANDICAPPER): Ms. Jennings is a 76-year-old female with [...] pounds. She declined need to see our preparatory technician as she has resources from her from her previous visit. I mentioned to her we will see her in 3 to [address] chest and most likely TMO will follow along. Assessment & Plan (05/09/2022 3:02 PM RACING SECRETARY AND HANDICAPPER): Ms. Jennings is a 76-year-old female diagnosed [...] etc and benefits and has signed consents. rBianne Jennings received pre operative teaching from the [facility] nurse. Post operative follow up and chest [...] Department Care Team Description 07/18/2024 12:40 PM RACING SECRETARY AND HANDICAPPER Telemedicine Thoracic Center - Medical Oncology [address] [place] [address] Main [facility], 9th [place] [address] Sudeep Crouch MD Adenocarcinoma, NOS of upper lobe, lung <Left> (Primary Dx) 07/18/2024 Orders Only Neuroradiology [address] [place] [address] Giorgi Lugo PA 07/15/2024 9:15 AM RACING SECRETARY AND HANDICAPPER Ancillary Procedure [facility] [address] [facility] [address] [place] [address] Sofy Ambrose PA Adenocarcinoma, NOS of upper lobe, lung <Left> 07/15/2024 Travel 06/23/2024 11:15 AM RACING SECRETARY AND HANDICAPPER Telemedicine Internal Medicine Center - Hematology [address] [place] [address], 6th [place] [address] Keaton Rodriguez MD 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); Adenocarcinoma, NOS of upper lobe, lung <Left> 06/15/2024 [facility] [address] [place] [address], 6th [place] [address] Keaton Rodriguez MD Cerebral venous sinus thrombosis 03/28/2024 Telephone Thoracic Center - Medical Oncology [address] [place] [address], [address] [place] [phone] Sofy Ambrose PA 03/27/2024 Travel 03/04/2024 11:00 AM CDT Telemedicine [facility] [place] - Medical Oncology [address] [place] [address], [address] [place] [address] Sudeep Crouch MD Adenocarcinoma, NOS of upper lobe, lung <Left> (Primary Dx) 03/04/2024 Orders Only Thoracic Center - Medical Oncology [address] [place] [address], [address] [place] [address] Sofy Ambrose PA Adenocarcinoma, NOS of upper lobe, lung <Left> (Primary Dx) 03/03/2024 11:15 AM CDT Ancillary Procedure MD Ram[facility] Eub[facility] [address] Sofy Ambrose PA Adenocarcinoma, NOS of upper lobe, lung <Left> 03/03/2024 8:40 AM CDT Ancillary Procedure MD Ram[facility] Eub[facility] [address] Sofy Ambrose PA Adenocarcinoma, NOS of upper lobe, lung <Left> 03/03/2024 Telephone [facility] - Medical Oncology [address] [place] [address], [address] [place] [phone] Lucia Machado MA 03/03/2024 Travel 12/17/2023 10:15 AM CDT Telemedicine Internal Medicine [facility] - Hematology [address] [place] [address], 6th [place] [address] Keaton Rodriguez MD Adenocarcinoma, NOS of upper lobe, lung <Left> 11/27/2023 10:00 AM CDT Telemedicine [facility] - Medical Oncology [address] [place] [address], 9th [place] [address] Sudeep Crouch MD Adenocarcinoma, NOS of upper lobe, lung <Left> (Primary Dx) 11/27/[address] Imaging [address] [place] [address], 7th [place] [address] Joanna Landon MD 11/27/2023 Orders Only Thoracic Center - Medical Oncology [address] [place] [address], [address] [facility] [place] [address] Sofy Ambrose PA Adenocarcinoma, NOS of upper lobe, lung <Left> (Primary Dx) 11/26/2023 9:30 AM CDT Ancillary Procedure [facility] [address] [place] [address] Sofy Ambrose PA Adenocarcinoma, NOS of upper lobe, lung <Left> 11/26/2023 Travel 11/13/2023 [facility] - H[facility] [address] [place] [address], 6th [place] [address] Mona Reid, DATABASE ADMINISTRATION ASSOCIATE Cerebral venous sinus thrombosis after 11/12/2023 Immunizations Immunization Administration Dates Next Due Pneumococcal Polysaccharide PPSV23 09/20/2017 Surgical History Surgery Date Site/Laterality Comments TUMOR EXCISION Right right shoulder "lipoma" CORONARY ANGIOPLASTY 06/18/2016 - 06/17/2017 no intervention CATARACT EXTRACTION BILATERAL W/ ANTERIOR VITRECTOMY Bilateral COLONOSCOPY 06/18/2017 - 06/17/2018 3 precancerous polpys removed DILATION AND CURETTAGE OF UTERUS [facility] EBUS GUIDED SAMPL 3/> NODE STATION/STRUX 12/21/2021 N/A Procedure: BRONCHOSCOPY WITH EBUS 3 OR MORE NODES; Surgeon: Kaylie Mota MD; Location: MAIN PULM PROC; Service: PULMONARY NC THORACOSCOPY W/LOBECTOMY SINGLE LOBE 05/25/2022 Left Procedure: ROBOTIC (RATS) (SI) LOBECTOMY; Surgeon: Jim Hernadez MD; Location: MAIN OR; Service: THRCV - THORACIC SURGERY Medical devices from this surgery are in the Medical Devices section. 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 01/08/2025 10:15 AM CDT Ancillary Procedure [address] [address] Sofy Ambrose PA [address] [place] [phone] [email or web address] 01/08/2025 12:05 PM CDT Ancillary Procedure MD [facility] [address] [address] Sofy Ambrose PA [address] [place] [phone] [email or web address] 01/09/2025 9:40 AM CDT Telemedicine Thoracic Center - Medical Oncology [address] [place] [address], 9th [place] [address] Sudeep Crouch MD [address] [place] [phone] [email or web address] 01/19/2025 11:00 AM CDT Telemedicine Internal Medicine Center - Hematology [address] [facility], 6th [place] [address] Keaton Rodriguez MD [facility] [place] [address] [email or web address] Maintenance Due Date Last Done Comments Pneumococcal Vaccine: 50+ Years (2 of 2 - PCV) 019 09/20/2017 COVID-19 Vaccine ( season) 2024 Influenza Vaccine (Season Ended) 2025 Medical Devices Implanted Type Area Cleaner Assistant Device Identifier Shelf Expiration Date Model / Serial / Lot Cath Thoracic Str 28fr - [id number] Implanted:Qty: 1 on 05/25/2022 by Jim Hernadez MD at [facility] LDA Left: Chest [employer] 01/06/2025 [id number] / / [id number] Procedures Procedure Name Priority Date/Time Associated Diagnosis Comments CT CHEST WO CONTRAST Routine 07/15/2024 10:58 AM RACING SECRETARY AND HANDICAPPER Adenocarcinoma, NOS of upper lobe, lung <Left> .CBC Routine 07/15/2024 8:20 AM RACING SECRETARY AND HANDICAPPER Adenocarcinoma, NOS of upper lobe, lung <Left> FREE THYROXINE Routine 07/15/2024 8:20 AM RACING SECRETARY AND HANDICAPPER Adenocarcinoma, NOS of upper lobe, lung <Left> THYROID STIMULATING HORMONE Routine 07/15/2024 8:20 AM RACING SECRETARY AND HANDICAPPER Adenocarcinoma, NOS of upper lobe, lung <Left> COMPREHENSIVE METABOLIC PANEL Routine 07/15/2024 8:20 AM RACING SECRETARY AND HANDICAPPER Adenocarcinoma, NOS of upper lobe, lung <Left> COMPLETE BLOOD COUNT W/ DIFFERENTIAL Routine 07/15/2024 8:20 AM RACING SECRETARY AND HANDICAPPER Adenocarcinoma, NOS of upper lobe, lung <Left> [...] NOS of upper lobe, lung <Left> after 11/12/2023 Results * CT Chest without Contrast (07/15/2024 10:58 AM RACING SECRETARY AND HANDICAPPER) Anatomical Region Laterality Modality Chest Computed Tomogra phy 07/15/2024 2:30 PM RACING SECRETARY AND HANDICAPPER Impressions 07/16/2024 8:41 AM RACING SECRETARY AND HANDICAPPER Status post left upper lobectomy. No intrathoracic [...] and potentially actionable. Narrative 07/16/2024 8:41 AM RACING SECRETARY AND HANDICAPPER FULL RESULT: Examination: CT CHEST WO CONTRAST [...] ult * (ABNORMAL) .CBC (07/15/2024 8:20 AM [facility]) Only the most recent of3 resultswithin the time period is included. White Blood Cell 6.8 4.1 - 10.5 K/uL 07/15/2024 8:31 AM [facility] Red Blood Cell 4.05 3.99 - 5.46 M/uL 07/15/2024 8:31 AM [facility] Hemoglobin 12.3 12.2 - 15.3 g/dL 07/15/2024 8:31 AM [facility] Hematocrit 38.9 36.4 - 46.8 % 07/15/2024 8:31 AM [facility] Mean Cell Volume 96 82 - 99 fL 07/15/2024 8:31 AM [facility] Mean Cell Hemoglobin 30.4 26.6 - 33.2 pg 07/15/2024 8:31 AM [facility] Mean Cell Hemoglobin Concentration 31.6 31.1 - 35.2 g/dL 07/15/2024 8:31 AM [facility] RDW-SD 50.4(H) 37.5 - 49.7 fL 07/15/2024 8:31 AM [facility] Red Cell Diameter Width 14.0 11.6 - 15.5 % 07/15/2024 8:31 AM [facility] Platelet 232 160 - 397 K/uL 07/15/2024 8:31 AM [facility] Mean Platelet Volume 8.6(L) 9.1 - 12.6 fL 07/15/2024 8:31 AM [facility] Neutrophil % 62.0 43.2 - 72.7 % 07/15/2024 8:31 AM [facility] Lymphocyte % 25.4 16.8 - 46.2 % 07/15/2024 8:31 AM [facility] Monocyte % 8.9 5.1 - 12.5 % 07/15/2024 8:31 AM [facility] Eosinophil % 2.9 0.4 - 6.3 % 07/15/2024 8:31 AM [facility] Basophil % 0.7 0.2 - 1.4 % 07/15/2024 8:31 AM [facility] IGRE % 0.1 0.1 - 1.5 % 07/15/2024 8:31 AM [facility] Comment:The IGRE% includes M etamyelocytes, Myelocytes and Promyelocytes. Neutrophil Abs 4.22 1.95 - 7.25 K/uL 07/15/2024 8:31 AM [facility] Lymphocyte Abs 1.73 1.01 - 3.24 K/uL 07/15/2024 8:31 AM [facility] Monocyte Abs 0.61 0.24 - 0.85 K/uL 07/15/2024 8:31 AM [facility] Eosinophil Abs 0.20 0.02 - 0.50 K/uL 07/15/2024 8:31 AM [facility] Basophil Abs 0.05 0.02 - 0.09 K/uL 07/15/2024 8:31 AM [facility] IG Abs 0.01 0.01 - 0.12 K/uL 07/15/2024 8:31 AM [facility] Blood Peripheral blood specimen / Unknown Venipuncture / Unknown 07/15/2024 8:20 AM RACING SECRETARY AND HANDICAPPER 07/15/2024 8:20 AM [facility] us Sofy INMAN LAB BLOOD ORDERABLES Final Result Performing Organization Address [facility]/State/[facility] Co de Phone Number [facility] [address] [facility], [facility] [address] [place] [address] * (ABNORMAL) Comprehensive Metabolic Panel (07/15/2024 8:20 AM [facility]) Only the most recent of3 resultswithin the time period is included. Bilirubin Total 0.4 0.0 - 1.2 mg/dL 07/15/2024 8:43 AM [facility] Comment:Indocyanine Green (I CG) may cause falsely elevated bilirubin results. Total and direct bilirubin must not be measured from samples containing indocyanine green. False elevation of total bilirubin can be seen in patients with IgG concentrations above 28 g/L. eGFR 38(L) >=60 mL/min/1. 73 sq. m 07/15/2024 8:43 AM [facility] Comment: The eGFRcr is calculated with [...] 6.4 - 8.3 gm/dL 07/15/2024 8:43 AM [facility] Calcium Level Total 9.5 8.2 - 10.2 mg/dL 07/15/2024 8:43 AM [facility] Alkaline Phosphatase 101 35 - 104 U/L 07/15/2024 8:43 AM [facility] Albumin Level 4.2 3.5 - 5.2 gm/dL 07/15/2024 8:43 AM [facility] AST 17 <=32 U/L 07/15/2024 8:43 AM [facility] ALT 8 <=33 U/L 07/15/2024 8:43 AM [facility] Sodium Level 141 136 - 145 mmol/L 07/15/2024 8:43 AM [facility] Potassium Level 4.3 3.4 - 4.5 mmol/L 07/15/2024 8:43 AM [facility] Chloride 105 98 - 107 mmol/L 07/15/2024 8:43 AM [facility] CO2 28 22 - 29 mmol/L 07/15/2024 8:43 AM [facility] Anion Gap 8 4 - 14 mmol/L 07/15/2024 8:43 AM [facility] Creatinine 1.39(H) 0.51 - 0.95 mg/dL 07/15/2024 8:43 AM [facility] BUN 17 6 - 23 mg/dL 07/15/2024 8:43 AM [facility] Glucose Level 95 70 - 99 mg/dL 07/15/2024 8:43 AM [facility] Comment: Effective 01/12/16, the glucose reference intervals have been updated based on [place] [employer] guidelines (Standards of Medical Care [...] Unknown Venipuncture / Unknown 07/15/2024 8:20 AM RACING SECRETARY AND HANDICAPPER 07/15/2024 8:20 AM RACING SECRETARY AND HANDICAPPER Sofy INMAN LAB BLOOD ORDERABLES Final Result Performing Organization Address City/[facility]/ZIP Co de Phone Number [address] [address] * TSH (07/15/2024 8:20 AM RACING SECRETARY AND HANDICAPPER) Only the most recent of4 resultswithin the time period is included. Thyroid Stimulating Hormone 3.18 0.27 - 4.20 mcIU/mL 07/15/2024 8:53 AM [facility] Blood Peripheral blood specimen / Unknown Venipuncture / Unknown 07/15/2024 8:20 AM RACING SECRETARY AND HANDICAPPER 07/15/2024 8:20 AM RACING SECRETARY AND HANDICAPPER Sofy INMAN LAB BLOOD ORDERABLES Final Result Performing Organization Address [facility]/ZIP Co de Phone Number [address] [address] * Free T4 (07/15/2024 8:20 AM RACING SECRETARY AND HANDICAPPER) Only the most recent of4 resultswithin the time period is included. T4 (Thyroxine) Free 0.95 0.92 - 1.68 ng/dL 07/15/2024 8:53 AM RACING SECRETARY AND HANDICAPPER [facility] Blood Peripheral blood specimen / Unknown Venipuncture / Unknown 07/15/2024 8:20 AM RACING SECRETARY AND HANDICAPPER 07/15/2024 8:20 AM RACING SECRETARY AND HANDICAPPER Sofy Ambrose PA LAB BLOOD ORDERABLES Final Result Performing Organization Address [facility]/ZIP Co de Phone Number [address], [address] [address] * Free T3 (03/27/2024 11:02 AM CDT) Free T3 2.7 2.0 - 4.4 pg/mL 03/27/2024 11:53 AM CDT [facility] Blood Peripheral blood specimen / Unknown Venipuncture / Unknown 03/27/2024 11:02 AM CDT 03/27/2024 11:02 AM CDT Sofy Ambrose PA LAB BLOOD ORDERABLES Final Result Performing Organization Address City/[facility]/ZIP Co de Phone Number [address], [address] [address] * MRI Brain with and without Contrast [...] abnormality. The vascular flow voids at the [place] are maintained. Re-noted is a [...] since the previous study. Procedure Note Jody aPrks MD - 03/03/2024 FULL RESULT: Examination: MRI [...] abnormality. The vascular flow voids at the [place] are maintained. Re-noted is a nonocclusive filling defect in the right transverse sinus,suspicious for intraluminal thrombus. It has remained stable since 12/2021.It is better seen in CTV on 01/04/2022. A 0.7 cm enhancing right frontal parafalcine nodule is annotated on [email or web address] image 82, unchanged since 12/2021. It likely [...] right transversesinus. ACTIONABLE ITEMS/RECOMMENDATIONS: None. Sofy INMAN [facility] MRI ORDERABLES Final Re sult * CT [...] IMG CT ORDERABLES Final Res ult after 11/12/2023 Insurance MEDICARE PART A AND B AARP-SECONDARY ONLY MEDICARE PART A AND B AAR-SECONDARY ONLY Advance Directives * Full Code (Latest Code Status on File) Date Activated Date Inactivated Comments 05/25/2022 8:46 PM 05/29/2022 2:30 PM Care Teams Paid Search Analyst Relationship Specialty Start Date End Date Sheba Velez [address] [place] [address] PCP - External Primary Care Provider Nurse Practitioner 11/17/21 Clay Ahumada MD [address] [place] [address] PCP - External Follow Up A Pulmonary Medicine 11/17/21 Sudeep Crouch MD [address] [place] [phone] [email or web address] PCP - General Thoracic Medicine 12/27/21 Guanaco [place] MD [address] [place] [phone] Cardiology 05/09/22 Keaton Rodriguez MD [address] [place] [phone] [email or web address] Consulting Physician Hematology and Oncology 03/27/22 Kaylie Mota MD [address] [place] [address] [email or web address] Consulting Physician Pulmonary Medicine 12/20/21 Seth Fernandez MD [address] [place] [phone] [email or web address] Consulting Physician Gastroenterology, Hepatology and Nutrition 09/12/22 Mauri Barr MD [address] [place] [id number] [email or web address] Consulting Physician Pain Management 08/04/22 Ella Adame PA [address] [place] [phone] [email or web address] Physician Hoop Machine Operator Radiology 12/01/21
--- NOTE | 2024-11-11 15:30 | RAD REPORT ---
EXAMINATION: ONE VIEW CHEST XR CLINICAL INDICATION: CHEST PAIN TECHNIQUE: Frontal chest projection is submitted. Examination is limited by patient positioning and t echnique. COMPARISON: 11/06/2024 FINDINGS: The lungs are well inflated and clear. The heart is moderately enlarged in size. No displaced fractur es identified. Aortic atherosclerosis. IMPRESSION: No acute intrathoracic abnormalities.
[2024-11-11] MEDS ORDERED: ONDANSETRON 4 MG/2 ML VIAL ONE (16:04)
[2024-11-11] MEDS ORDERED: ACETAMINOPHEN 500 MG TAB ONE (16:04)
[2024-11-11 16:12] LABS: Absolute Basophils 0.1 K/uL (0-0.5); Absolute Eosinophils 0.2 K/uL (0-0.5); Absolute Lymphocytes (CBC) 1.8 K/uL (0.7-4.9); Absolute Monocytes 0.6 K/uL (0.1-1.3); Absolute Neutrophil 4.5 K/uL (1.8-8.0); Basophils % 0.8 % (0-1.3); Eosinophils % 2.9 % (0-4.4); Hematocrit 36.7 % (36.0-45.0); Hemoglobin 12.6 g/dL (12.0-15.0); Lymphocytes % 24.7 % (15.3-44.8); MCH 31.4 pg (27.0-35.0); MCHC 34.2 g/dL (32.0-36.0); MCV 91.8 fL (80-100); MPV 6.7 fL (7.6-11.3); Monocytes % 8.6 % (3.3-12.3); Platelets 247 thou/uL (152-406)
[2024-11-11 16:30] LABS: Anion Gap 10.9 mEq/L (5.0-15.0); Magnesium 2.2 mg/dL (1.6-2.4); Potassium 3.9 mEq/L (3.5-5.1)
--- NOTE | 2024-11-11 17:06 | RAD REPORT ---
EXAMINATION: CT ABDOMEN AND PELVIS WITH CONTRAST CLINICAL INDICATION: ABD PAIN TECHNIQUE: CT abdomen and pelvis was performed, after the administration of IV contrast, [facility]. Axial, sagittal and coronal reconstructions were obtained. One or more of the following dose reduction techniques were used: Automated exposure control, adjustment of the mA and k V according to patient size, and iterative reconstruction. Unless otherwise specified, incidental findings do not require dedicated imaging follow-up. COMPARISON: 01/05/2024, 10/17/2023 FINDINGS: LOWER CHEST: The visualized lung bases are clear. Small hiatal hernia. LIVER: Multiple benign cysts are present throughout the liver parenchyma. No aggressive liver lesions seen. Grossly unremarkable gallbladder. SPLEEN: Normal size. No focal lesion. PANCREAS: No mass, ductal dilation, or molly-pancreatic fluid. ADRENALS: Normal; no mass. KIDNEYS: Normal size and contour. No hydronephrosis. GASTROINTESTINAL TRACT: No evidence of free air, significant intra-abdominal free fluid, bowel obstru ction or abscess. There is mild diverticulosis coli of the sigmoid colon without diverticulitis. APPENDIX: Normal appendix. LYMPH NODES: No lymphadenopathy. MUSCULOSKELETAL: 5 mm degenerative anterolisthesis of L3 on 4. Chronic bilateral spondylolysis L5-S1. ADDITIONAL FINDINGS: None. IMPRESSION: No acute abnormalities seen in the abdomen or pelvis.
--- NOTE | 2024-11-11 17:19 | EDPHYS ---
Physician Documentation [facility] Name: Brianne Jennings Age: 79 yrs Sex: Female : 1945 Arrival Date: 11/11/2024 Time: 14:45 Bed 13 Private MD: ED Physician Ceasar Sanders HPI: 11/11 15:54 This 79 yrs old Female presents to ER via Wheelchair with complaints of Chest Pain, ms3 Abdominal Pain, High Blood Pressure. 15:54 79-year-old female with past medical history of acid reflux, arthritis, COPD, ms3 hypertension, cancer presents to the emergency department for chest pain has been ongoing for 2 weeks. Patient states her discomfort is a 4/10. Patient endorses dizziness, nausea, headache. Patient denies vomiting. Patient states her symptoms are worse at night. Patient states she is concerned of her left upper quadrant abdominal pain that has also been occurring along with these symptoms.. Historical: - Allergies: 14:52 Clindamycin; ll1 - PMHx: 14:52 acid reflux; Arthritis; COPD; Hypertension; Lung Cancer; ll1 - PSHx: 14:52 left lung lobe resection; ll1 - Immunization history:: Adult Immunizations up to date. - Infectious Disease History:: Denies. - Social history:: Smoking status: Patient denies any tobacco usage or history of. ROS: 15:54 Constitutional: Negative for fever, and chills. Cardiovascular: Negative for chest ms3 pain, and palpitations. Respiratory: Negative for shortness of breath, cough, wheezing, and pleuritic chest pain, 15:54 MS/Extremity: Negative for injury and deformity, Skin: Negative for injury, rash, and discoloration, 15:54 Abdomen/GI: Positive for abdominal pain, Negative for nausea, vomiting, and diarrhea, Exam: 15:54 Constitutional: This is a well developed, well nourished patient who is awake, alert, ms3 and in no acute distress. Cardiovascular: Regular rate and rhythm with a normal S1 and S2. No gallops, murmurs, or rubs. Normal PMI, no JVD. No pulse deficits. Respiratory: Lungs have equal breath sounds bilaterally, clear to auscultation and percussion. No rales, rhonchi or wheezes noted. No increased work of breathing, no retractions or nasal flaring. Abdomen/GI: Soft, non-tender, with normal bowel sounds. No distension or tympany. No guarding or rebound. No evidence of tenderness throughout. Skin: Warm, dry with normal turgor. Normal color with no rashes, no lesions, and no evidence of cellulitis. MS/ Extremity: Pulses equal, no cyanosis. Neurovascular intact. Full, normal range of motion. 16:37 ECG was reviewed by the Attending Physician. ms3 Vital Signs: 15:45 BP 157 / 81; Pulse 54; Resp 16; Temp 98.1(O); Pulse Ox 97% ; Weight 55.79 kg; Height 5 ll1 ft. 2 in. ; 16:00 BP 176 / 85; Pulse 54; Resp 16; Pulse Ox 100% on R/A; db 16:30 BP 164 / 71; Pulse 52; Resp 14; Pulse Ox 98% on R/A; db 17:35 BP 159 / 87; Pulse 56; Resp 16; Pulse Ox 98% on R/A; db 15:45 Body Mass Index 22.50 (55.79 kg, 157.48 cm) ll1 MDM: 14:54 Medical Screening Exam initiated ms3 15:54 Differential diagnosis: abnormal EKG, acute myocardial infarction, Abdominal pain vs ms3 Gastritis. 17:18 HEART Score: History: Slightly Suspicious (0), ECG: Normal (0), Age: > or = 65 years ms3 (2), Risk Factors: 1 or 2 risk factors (1), Troponin: < or = 1 x Normal Limit (0), Total Score = 3. 18:08 The patient was not given aspirin in the Emergency Department. Aspirin not given, ms3 patient refused. Data reviewed: vital signs, nurses notes, lab test result(s), EKG, radiologic studies, and as a result, I will discharge patient. Consideration of Admission/Observation Escalation of care including admission/observation considered. I considered the following discharge prescriptions or medication management in the emergency department Medications were administered in the Emergency Department. See MAR. Independent interpretation of the following test(s) in the Emergency Department EKG: See my EKG interpretation above. Counseling: I had a detailed discussion with the patient and/or guardian regarding the historical points, exam findings, and any diagnostic results supporting the discharge/admit diagnosis, lab results, radiology results, the need for outpatient follow up, to return to the emergency department if symptoms worsen or persist or if there are any questions or concerns that arise at home. Special discussion: I discussed with the patient/guardian in detail that at this point there is no indication for admission to the hospital. It is understood, however, that if the symptoms persist or worsen the patient needs to return immediately for re-evaluation. ED course: Discussed labs, EKG, chest x-ray, CT abdomen pelvis with patient. Patient to follow-up with her primary care physician in 2 to 3 days. All questions were answered. Return precautions discussed include worsening symptoms, or any other concerns. On reevaluation patient was alert and oriented x 4, no apparent distress, nontoxic-appearing, speaking full sentences. 11/11 14:48 Order name: Basic Metabolic Panel; Complete Time: 16:36 ms3 11/11 14:48 Order name: CBC with Diff; Complete Time: 16:36 ms3 11/11 14:48 Order name: Magnesium; Complete Time: 16:36 ms3 11/11 14:48 Order name: NT PRO-BNP; Complete Time: 16:36 ms3 11/11 14:48 Order name: Troponin HS; Complete Time: 16:36 ms3 11/11 14:48 Order name: XRAY Chest (1 view); Complete Time: 16:36 ms3 11/11 14:54 Order name: CT Abd/Pelvis - IV Contrast Only; Complete Time: 17:12 ms3 11/11 14:48 Order name: EKG; Complete Time: 14:48 ms3 11/11 14:48 Order name: Cardiac monitoring; Complete Time: 16:18 ms3 11/11 14:48 Order name: EKG - Nurse/Tech; Complete Time: 16:18 ms3 11/11 14:48 Order name: IV Saline Lock; Complete Time: 16:18 ms3 11/11 14:48 Order name: Labs collected and sent; Complete Time: 16:18 ms3 11/11 14:48 Order name: O2 Per Protocol; Complete Time: 16:18 ms3 11/11 14:48 Order name: O2 Sat Monitoring; Complete Time: 16:18 ms3 EC:37 Rate is 55 beats/min. Rhythm is regular. QRS [place] is Normal. MS interval is normal. QRS ms3 interval is normal. Clinical impression: Sinus bradycardia. Interpreted by me. Reviewed by me. Administered Medications: 16:06 CANCELLED (Patient Refused): aspirinchewable tablet 324 mg PO once; 81 mg tablets x 4 ms3 16:10 Drug: Ondansetron IVP 4 mg IVP once; over 2 minutes Route: IVP; Site: left forearm; db 17:42 Follow up: Response: No adverse reaction db 16:10 Drug: Acetaminophen PO 1000 mg PO once Route: PO; db 17:42 Follow up: Response: No adverse reaction db Disposition Summary: 11/11/24 17:18 Discharge Ordered Notes: Location: Home ms3 Condition: Stable ms3 Diagnosis - Chest pain, unspecified ms3 - Abdominal pain, Generalized ms3 - Essential (primary) hypertension ms3 Followup: ms3 - With: Baldemar Hamilton MD - When: 2 - 3 days - Reason: Recheck today's complaints Followup: ms3 - With: Kushal Nielsen MD - When: 2 - 3 days - Reason: Recheck today's complaints Discharge Instructions: - Discharge Summary Sheet ms3 - Abdominal Pain, Adult ms3 - Nonspecific Chest Pain, Adult ms3 - Hypertension, Adult ms3 Forms: - Medication Reconciliation Form ms3 - Antibiotic Education ms3 - Prescription Opioid Use ms3 - Patient Portal Instructions ms3 - Leadership Thank You Letter ms3 Signatures: Dispatcher [employer] EDMS David Raymundo, RN RN ll1 Ceasar Sanders, DO ms3 Julia Peralta RN RN db Corrections: (The following items were deleted from the chart) 14:48 14:48 BASIC METABOLIC PANEL+C.LAB.BRZ ordered. EDMS EDMS 14:48 14:48 CBC+H.LAB.BRZ ordered. EDMS EDMS 14:48 14:48 MAGNESIUM+C.LAB.BRZ ordered. EDMS EDMS 14:48 14:48 PROBNP+C.LAB.BRZ ordered. EDMS EDMS 14:48 14:48 Troponin High Sensitivity+C.LAB.BRZ ordered. EDMS EDMS 16:06 14:48 Aspirin PO Chewable Tablet 324 mg PO once; 81 mg tablets x 4 ordered. ms3 ms3
--- NOTE | 2024-11-11 17:19 | ER ---
Nurse's Notes [facility] Name: Brianne Jennings Age: 79 yrs Sex: Female : 1945 Arrival Date: 11/11/2024 Time: 14:45 Bed 13 Private MD: Diagnosis: Chest pain, unspecified;Abdominal pain, Generalized;Essential (primary) hypertension Presentation: 11/11 14:52 Chief complaint: Patient states: CP for weeks. Sent in for high BP by pattern duplicator. ll1 Coronavirus screen: Client denies travel out of the [place] in the last 14 days. At this time, the client does not indicate any symptoms associated with coronavirus-19. Ebola Screen: Patient denies travel to an Ebola-affected area in the 21 days before illness onset. Initial Sepsis Screen: Does the patient meet any 2 criteria? No. Patient's initial sepsis screen is negative. Does the patient have a suspected source of infection? No. Patient's initial sepsis screen is negative. Risk Assessment: Do you want to hurt yourself or someone else? Patient reports no desire to harm self or others. Onset of symptoms was October 12, 2024. 14:52 Method Of Arrival: Wheelchair ll1 14:52 Acuity: LYNNE 3 ll1 Historical: - Allergies: 14:52 Clindamycin; ll1 - PMHx: 14:52 acid reflux; Arthritis; COPD; Hypertension; Lung Cancer; ll1 - PSHx: 14:52 left lung lobe resection; ll1 - Immunization history:: Adult Immunizations up to date. - Infectious Disease History:: Denies. - Social history:: Smoking status: Patient denies any tobacco usage or history of. Screenin:18 [facility] ED Fall Risk Assessment (Adult) History of falling in the last 3 months, db including since admission No falls in past 3 months (0 pts) Confusion or Disorientation No (0 pts) Intoxicated or Sedated No (0 pts) Impaired Gait No (0 pts) Mobility Assist Device Used No (0 pt) Altered Elimination No (0 pt) Score/Fall Risk Level 0 - 2 = Low Risk Oriented to surroundings, Maintained a safe environment. Abuse screen: Denies threats or abuse. Denies injuries from another. Nutritional screening: No deficits noted. Tuberculosis screening: No symptoms or risk factors identified. Assessment: 16:00 Reassessment: PT REPORTS UNABLE TO TAKE ASPIRIN. NOTIFIED DR. ORTIZ. ll1 16:05 General: Appears in no apparent distress. comfortable, Behavior is calm, cooperative. db Pain: Complains of pain in head and face Pain does not radiate. Pain began gradually. Neuro: Level of Consciousness is awake, alert, obeys commands, Oriented to person, place, time, situation. Cardiovascular: Reports lightheadedness, nausea. Respiratory: Airway is patent Respiratory effort is even, unlabored, Respiratory pattern is regular, symmetrical. GI: Reports nausea. 16:20 Reassessment: Patient appears in no apparent distress at this time. Patient and/or db family updated on plan of care and expected duration. Pain level reassessed. Patient is alert, oriented x 3, equal unlabored respirations, skin warm/dry/pink. 17:00 Reassessment: Patient appears in no apparent distress at this time. Patient and/or db family updated on plan of care and expected duration. Pain level reassessed. 17:40 Reassessment: Patient appears in no apparent distress at this time. Patient and/or db family updated on plan of care and expected duration. Pain level reassessed. Patient is alert, oriented x 3, equal unlabored respirations, skin warm/dry/pink. Patient states feeling better. Patient states symptoms have improved. Vital Signs: 15:45 BP 157 / 81; Pulse 54; Resp 16; Temp 98.1(O); Pulse Ox 97% ; Weight 55.79 kg; Height 5 ll1 ft. 2 in. ; 16:00 BP 176 / 85; Pulse 54; Resp 16; Pulse Ox 100% on R/A; db 16:30 BP 164 / 71; Pulse 52; Resp 14; Pulse Ox 98% on R/A; db 17:35 BP 159 / 87; Pulse 56; Resp 16; Pulse Ox 98% on R/A; db 15:45 Body Mass Index 22.50 (55.79 kg, 157.48 cm) ll1 ED Course: 14:47 Patient arrived in ED. im 14:47 Ceasar Ortiz DO is Attending Physician. ms3 14:52 Arm band placed on Patient placed in an exam room, on a stretcher. ll1 14:53 Triage completed. ll1 14:57 Julia Peralta, RN is Primary Nurse. db 15:18 XRAY Chest (1 view) In Process Unspecified. EDMS 16:00 Initial lab(s) drawn, by me, sent to lab. EKG done, reviewed by Ceasar Ortiz DO. ll1 Inserted saline lock: 20 gauge in left forearm, using aseptic technique. Blood collected. Flushed with 10 mL NS. Patient maintains SpO2 saturation greater than 95% on room air. 16:09 Patient has correct armband on for positive identification. Bed in low position. Call ll1 light in reach. Side rails up X 1. Client placed on continuous cardiac and pulse oximetry monitoring. NIBP monitoring applied. potline monitor on. Pulse ox on. NIBP on. Warm blanket given. Pillow given. 16:55 CT Abd/Pelvis - IV Contrast Only In Process Unspecified. EDMS 16:[address] db 17:17 Baldemar Hamilton MD is Referral Physician. ms3 17:17 Kushal Nielsen MD is Referral Physician. ms3 17:40 Provided Education on: DISCHARGE AND FOLLOWUP. db 17:40 No provider procedures requiring assistance completed. IV discontinued, intact, db bleeding controlled, No redness/swelling at site. Administered Medications: 16:06 CANCELLED (Patient Refused): aspirinchewable tablet 324 mg PO once; 81 mg tablets x 4 ms3 16:10 Drug: Ondansetron IVP 4 mg IVP once; over 2 minutes Route: IVP; Site: left forearm; db 17:42 Follow up: Response: No adverse reaction db 16:10 Drug: Acetaminophen PO 1000 mg PO once Route: PO; db 17:42 Follow up: Response: No adverse reaction db Medication: 16:18 VIS not applicable for this client. db Outcome: 17:18 Discharge ordered by . ms3 17:40 Discharged to home ambulatory, db 17:40 Condition: stable db 17:40 Discharge instructions given to patient, Instructed on discharge instructions, follow up and referral plans. 17:42 Patient left the ED. db Signatures: Dispatcher [employer] EDMS David Raymundo, RN RN ll1 Ceasar Ortiz DO DO ms3 Julia Peralta RN RN db Melvi Iyer Corrections: (The following items were deleted from the chart) 17:41 17:40 Discharged to home db db
[2024-11-11 17:55] VITALS: TEMP 98.1
[2024-11-11 18:00] VITALS: O2SAT 98
[2024-11-11 18:02] VITALS: BP 159/87
--- NOTE | 2024-11-12 11:15 | EKG ---
Test Date: 2024-11-11 Test Time: 15:57:48 Harness Worker: SHERINE MEASUREMENT RESULTS: Intervals: Rate: 55 GA: 182 QRSD: 96 QT: 434 QTc: 415 [place]: P: 55 GA: 182 QRS: 71 T: 66 INTERPRETIVE STATEMENTS: Sinus bradycardia Incomplete right bundle branch block Septal infarct, age undetermined Abnormal ECG Compared to ECG 11/06/2024 11:17:48 Myocardial infarct finding now present Electronically Signed On 11-12-24 11:12:55 CDT by Jr Carmona
== END 2024-11-11 17:42 | disposition home or self-care (01) ==
LOC: ER 14:45
DX: R07.9 Chest pain, unspecified (principal); R10.84 Generalized abdominal pain; I10 Essential (primary) hypertension
CPT/HCPCS: 93005; 85025; 80048; 36415; 83735; 84484; 83880; 74177; 71045; 96374; 99285; Q9967; J2405